=== PATIENT | female | born 1935 | race Caucasian/White ===

== ENCOUNTER 2017-04-08 22:23 | Inpatient (IN) | payer OTHER ==
[2017-04-08 22:34] VITALS: BMI 38.9
--- NOTE | 2017-04-08 23:20 | PDOC ---
History of Present Illness - General History Source: Patient Exam Limitations: No Limitations - History of Present Illness Initial Comments: 04/09/17 00:10 The patient is a 81 year old female with a significant past medical history of hypertension, glaucoma, borderline DM, first stage of Parkinsons Disease, and angina, who presents to the ER with chest discomfort, shortness of breath, and congestion for two days. Patient reports productive cough and difficulty breathing. She states she walks without assistance but develops shortness of breath shortly after. As per patients daughter, patient had a fever at home for which she took Advil. Patient also has a loss of appetite. On interview, patient states she has pain and swelling in the bilateral lower extremities. Denies lightheadedness or dizziness Denies nausea, vomiting, diarrhea <Lakesha Gee - Last Filed: 04/09/17 03:17> <Lisbet Martinez - Last Filed: 04/10/17 06:00> - General Chief Complaint: Chest Pain Stated Complaint: RESPIRATORY Time Seen by Provider: 04/08/17 23:06 Past History <Lakesha Gee - Last Filed: 04/09/17 03:17> - Past Medical History Asthma: Yes GI Disorders: Yes (gerd) HTN: Yes - Psycho/Social/Smoking Cessation Hx Anxiety: No Suicidal Ideation: No Smoking History: Never smoked Have you smoked in the past 12 months: No Information on smoking cessation initiated: No Hx Alcohol Use: No Drug/Substance Use Hx: No Substance Use Type: None <Lisbet Martinez - Last Filed: 04/10/17 06:00> - Past Medical History Allergies/Adverse Reactions: Allergies Allergy/AdvReac Type Severity Reaction Status Date / Time No Known Allergies Allergy Verified 04/08/17 22:34 Home Medications: Ambulatory Orders Acetaminophen [Pain Relief] 650 mg PO Q6H 09/13/16 Albuterol Sulfate Inhaler - [Ventolin Hfa Inhaler -] 1 - 2 inh PO QID 09/13/16 Atenolol [Tenormin -] 25 mg PO DAILY 09/13/16 Esomeprazole Magnesium [Nexium 24Hr] 40 mg PO DAILY 09/13/16 Montelukast Na [Singulair -] 10 mg PO HS 09/13/16 Alendronate Na [Fosamax] 70 mg PO Q7D 04/09/17 Bimatoprost [Lumigan] 1 drop IO DAILY 04/09/17 Brimonidine Tartrate/Timolol [Combigan Eye Drops] 5 ml OP DAILY 04/09/17 Lisinopril/Hydrochlorothiazide [Lisinopril-Hctz 20-25 mg Tab] 1 each PO DAILY Methimazole [Tapazole -] 10 mg PO DAILY 04/09/17 Primidone 50 mg PO DAILY 04/09/17 Ranitidine [Zantac -] 150 mg PO BID 04/09/17 Review of Systems - Review of Systems Comments:: 04/09/17 00:11 CONSTITUTIONAL: Present: (+) fever, (+) loss of appetite Absent: no chills, no fatigue EYES: Absent: visual changes ENT: Absent: ear pain, no sore throat CARDIOVASCULAR: Present: (+) chest pain Absent: no palpitations RESPIRATORY: Present: (+) cough, (+) SOB GI: Absent: abdominal pain, no nausea, no vomiting, no constipation, no diarrhea GENITOURINARY: Absent: dysuria, no frequency, no hematuria MUSCULOSKELETAL: Present: (+) bilateral leg edema and pain Absent: back pain, no arthralgia, no myalgia SKIN: Absent: rash NEURO: Absent: headache <Uts,Lakesha - Last Filed: 04/09/17 03:17> *Physical Exam - Vital Signs Last Vital Signs Temp Pulse Resp BP Pulse Ox 98.5 F 78 20 109/68 95 04/08/17 22:31 04/08/17 23:57 04/08/17 23:57 04/08/17 23:57 04/08/17 23:57 - Physical Exam Comments: 04/09/17 00:12 GENERAL: Resting Parkinsonian tremor. Well-appearing, well-nourished. No apparent distress. HEENT: Normocephalic, atraumatic. PERRL, EOM intact. CARDIOVASCULAR: Irregularly irregular. Normal S1, S2. PULMONARY: Clear to auscultation bilaterally. ABDOMEN: Soft, non-distended, non-tender. EXTREMITIES: Trace pitting edema. Nontender flank. Normal ROM in all four extremities. No gross deformities. SKIN: Warm, dry. No rash NEUROLOGICAL: No focal neurological deficits. <Uts,Lakesha - Last Filed: 04/09/17 03:17> - Vital Signs Last Vital Signs Temp Pulse Resp BP Pulse Ox 98.5 F 79 18 122/78 94 L 04/08/17 22:31 04/08/17 22:31 04/08/17 22:31 04/08/17 22:31 04/08/17 22:31 <Lisbet Martinez - Last Filed: 04/10/17 06:00> ED Treatment Course - LABORATORY CBC & Chemistry Diagram: 04/08/17 23:44 04/08/17 23:44 - RADIOLOGY Radiograph Interpretation: 04/09/17 03:18 EKG read and reviewed by Dr. Martinez: Atrial fibrillation, regular rate and rhythm , right bundle branch block <Lakesha Gee - Last Filed: 04/09/17 03:17> - LABORATORY CBC & Chemistry Diagram: 04/08/17 23:44 04/09/17 05:35 <Lisbet Martinez - Last Filed: 04/10/17 06:00> Medical Decision Making - Medical Decision Making 04/10/17 05:55 Pt comes with 2 days of dyspnea. Her daughter thinks that she has pneumonia, however, pt has no cough and she has no fever. She describes paroxysmal nocturnal dyspnea. Pt is compliant with all meds that she is supposed to be taking. In the ER pt has afib on EKG and irregularly irreg. heart beat on exam. Pt will be admitted to tele for new onset afib. <Lisbet Martinez - Last Filed: 04/10/17 06:00> *DC/Admit/Observation/Transfer - Attestations Scribe Attestion: 04/09/17 00:14 Documentation prepared by Lakesha Gee, acting as medical service technician for Lisbet Martinez MD. <Lakesha Gee - Last Filed: 04/09/17 03:17> - Discharge Dispostion Admit: Yes <Lisbet Martinez - Last Filed: 04/10/17 06:00> Diagnosis at time of Disposition: New onset atrial fibrillation Dyspnea Qualifiers: Dyspnea type: dyspnea on exertion Qualified Code(s): R06.09 - Other forms of dyspnea CHF (congestive heart failure) Qualifiers: Congestive heart failure type: unspecified congestive heart failure type Congestive heart failure chronicity: unspecified congestive heart failure chronicity Qualified Code(s): I50.9 - Heart failure, unspecified - Discharge Dispostion Condition at time of disposition: Guarded - Referrals
[2017-04-09 00:03] LABS: BASOPHIL 0.7 % (0-2.0); EOSINOPHIL 3.1 % (0-4.5); MCH 27.1 pg (25.7-33.7); MCHC 32.1 g/dl (32.0-36.0); MEAN CELL VOLUME 84.2 fl (80-96); MEAN PLT VOLUME 8.3 fl (7.5-11.1); NEUTROPHILS 39.7 % (42.8-82.8); PLATELET COUNT 183 K/MM3 (134-434); RDW 14.1 % (11.6-15.6); WHITE BLOOD COUNT 5.6 K/mm3 (4.0-10.0)
[2017-04-09 00:28] LABS: ALBUMIN 3.3 g/dl (3.4-5.0); ANION GAP 9 (8-16); BILIRUBIN,TOTAL 0.2 mg/dL (0.2-1.0); CALCIUM 8.7 mg/dL (8.5-10.1); CO2 30 mmol/L (21-32); COCKROFT - GAULT 77.5115; CREATININE 0.8 mg/dL (0.55-1.02); GLUCOSE,RANDOM 96 mg/dL (74-106); SGOT/AST 16 U/L (15-37); SGPT/ALT 20 U/L (12-78); TOT PROT 6.7 g/dl (6.4-8.2)
[2017-04-09 00:31] LABS: ALK PHOS 85 U/L (45-117); TROPONIN I < 0.02 ng/ml (0.00-0.05)
[2017-04-09 00:51] LABS: INR 1.1 (0.82-1.09); PROTHROMBIN TIME (PATIENT) 12.1 SEC (9.98-11.88)
[2017-04-09 01:59] LABS: URINE APPEARANCE CLEAR; URINE BILIRUBIN NEGATIVE (NEGATIVE); URINE BLOOD NEGATIVE (NEGATIVE); URINE COLOR LTYELLOW; URINE GLUCOSE (UA) NEGATIVE (NEGATIVE); URINE KETONE NEGATIVE (NEGATIVE); URINE LEUK ESTERASE NEGATIVE (NEGATIVE); URINE NITRITE NEGATIVE (NEGATIVE); URINE PROTEIN NEGATIVE (NEGATIVE); URINE UROBILINOGEN NEGATIVE E.U./dl (0.2-1.0)
--- NOTE | 2017-04-09 02:26 | HP ---
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 Call her Aid for info HISTORY OF PRESENT ILLNESS: This is an 81 yo F with PMH of hyperthyroidism, HTN, borderline DM, asthma, 1st stage parkinsons and glaucoma, who presents due to diffuse anterior chest pain radiating to back, sob, increased exertional dyspnea and mild LE edema x 2 d. She also reports progressively worsening cough productive of clear flem, loss of appetite and orthopnea x 2 mo. Shehas neverhad chest pain like this before, it is aggravated by exertion. She denies cardiac history. She denies weight gain. She deneis h/a, n/v, abd pain, dysuria, flank pain, constipation, diarrhea , melena, hematochezia. Her baseline ambulation tolerance is with walker from room to room and has recently decreased. In ed she is found to be in a fib rate 73 with la xis and RBBB. ER course was notable for: (1)labs (2)cxr ekg Recent Travel: denies PAST MEDICAL HISTORY: as above PAST SURGICAL HISTORY:as above Social History: lives at home alone with daily aid Smoking:denies Alcohol:denies Drugs: denies Family History: HTN, HLD Allergies No Known Allergies Allergy (Verified 04/08/17 22:34) HOME MEDICATIONS: Home Medications Medication Instructions Recorded Acetaminophen [Pain Relief] 650 mg PO Q6H 09/13/16 Albuterol Sulfate Inhaler - 1 - 2 inh PO QID 09/13/16 [Ventolin Hfa Inhaler -] Aspirin [ASA -] 325 mg PO DAILY 09/13/16 Atenolol [Tenormin -] 25 mg PO DAILY 09/13/16 Calcium Carbonate/Vitamin D3 1 each PO DAILY 09/13/16 [Calcium 600 + Vit D Tablet] Cephalexin Monohydrate [Keflex -] 500 mg PO Q8H #21 capsule 09/13/16 Diazepam [Valium] 5 mg PO Q8H #3 tablet MDD 3 09/13/16 Doxycycline Monohydrate 20 mg PO DAILY 09/13/16 [Doxycycline Ir-Dr] Esomeprazole Magnesium [Nexium 40 mg PO DAILY 09/13/16 24Hr] Montelukast Na [Singulair -] 10 mg PO HS 09/13/16 Primidone [Mysoline -] 250 mg PO DAILY 09/13/16 REVIEW OF SYSTEMS CONSTITUTIONAL: Absent: fever, chills HEENT: Absent: rhinorrhea, nasal congestion, throat pain CARDIOVASCULAR: Absent: syncope, palpitations, lightheadedness RESPIRATORY: Absent: wheezing, stridor, hemoptysis GASTROINTESTINAL: Absent: abdominal pain, abdominal distension, nausea, vomiting, diarrhea, constipation, melena, hematochezia GENITOURINARY: Absent: dysuria, flank pain MUSCULOSKELETAL: Absent: myalgia, arthralgia SKIN: Absent: rash, itching, pallor HEMATOLOGIC/IMMUNOLOGIC: Absent: frequent infections ENDOCRINE: Absent: unexplained weight gain, unexplained weight loss, heat intolerance, cold intolerance NEUROLOGIC: Absent: headache, focal weakness or paresthesias PSYCHIATRIC: Absent: anxiety, depression PHYSICAL EXAMINATION Vital Signs - 24 hr 04/08/17 04/08/17 22:31 23:57 Temperature 98.5 F Pulse Rate 79 Pulse Rate [ 78 Apical] Respiratory 18 20 Rate Blood Pressure 122/78 Blood Pressure 109/68 [Left Arm] O2 Sat by Pulse 94 L 95 Oximetry (%) GENERAL: Awake, alert, and fully oriented, in no acute distress. HEAD: Normal with no signs of trauma. EYES: Pupils equal, round and reactive to light, extraocular movements intact, sclera anicteric, conjunctiva clear. No lid lag. EARS, NOSE, THROAT: Moist mucous membranes. NECK: supple + JVD, + hepatojugular reflex LUNGS: mild bibasilar crackles HEART: irregularly irregular, normal S1 and S2 without murmur ABDOMEN: Soft, nontender, not distended, normoactive bowel sounds, no guarding, no rebound, no masses. No hepatomegaly or splenomegaly. MUSCULOSKELETAL: No CVA tenderness. UPPER EXTREMITIES: 2+ pulses, warm, well-perfused. No cyanosis. No clubbing. No peripheral edema. LOWER EXTREMITIES: 2+ pulses, warm, well-perfused. No calf tenderness. trace peripheral edema. NEUROLOGICAL: Cranial nerves II-XII grossly intact. parkinsonian dyskinesia PSYCHIATRIC: Cooperative. Good eye contact. Appropriate mood and affect. SKIN: Warm, dry Laboratory Results - last 24 hr 04/08/17 04/08/17 04/08/17 23:44 23:44 23:44 WBC 5.6 RBC 4.28 Hgb 11.6 Hct 36.1 MCV 84.2 MCHC 32.1 RDW 14.1 Plt Count 183 MPV 8.3 Neutrophils % 39.7 L Lymphocytes % 38.9 Monocytes % 17.6 H Eosinophils % 3.1 Basophils % 0.7 INR PTT (Actin FS) Sodium 144 Potassium 4.7 Chloride 105 Carbon Dioxide 30 Anion Gap 9 BUN 19 H Creatinine 0.8 Creat Clearance w eGFR > 60 Random Glucose 96 Calcium 8.7 Total Bilirubin 0.2 AST 16 ALT 20 Alkaline Phosphatase 85 Creatine Kinase 71 Troponin I < 0.02 B-Natriuretic Peptide 1924.51 H Total Protein 6.7 Albumin 3.3 L Urine Color Urine Appearance Urine pH Urine Protein Urine Glucose (UA) Urine Ketones Urine Blood Urine Nitrite Urine Bilirubin Urine Urobilinogen Ur Leukocyte Esterase 04/08/17 04/08/17 04/09/17 23:44 23:44 01:52 WBC RBC Hgb Hct MCV MCHC RDW Plt Count MPV Neutrophils % Lymphocytes % Monocytes % Eosinophils % Basophils % INR 1.10 PTT (Actin FS) 33.2 Sodium Potassium Chloride Carbon Dioxide Anion Gap BUN Creatinine Creat Clearance w eGFR Random Glucose Calcium Total Bilirubin AST ALT Alkaline Phosphatase Creatine Kinase Troponin I B-Natriuretic Peptide Total Protein Albumin Urine Color Ltyellow Urine Appearance Clear Urine pH 6.0 Urine Protein Negative Urine Glucose (UA) Negative Urine Ketones Negative Urine Blood Negative Urine Nitrite Negative Urine Bilirubin Negative Urine Urobilinogen Negative Ur Leukocyte Esterase Negative ASSESSMENT/PLAN: This is an 81 yo F with PMH of hyperthyroidism, HTN, borderline DM, asthma, 1st stage parkinsons and glaucoma, who presents due to diffuse anterior chest pain radiating to back, sob, increased exertional dyspnea and mild LE edema x 2 d. Please reconcile meds Acute CHF -may be ilicited by new onset a fib -lasix 40 IV bid -cored 3.125 bid, titrate up to max tolerated dose -start ramipril, aldactone tomorrow and titrate up -cardio consult -tele monitoring -cxr vessel cephalization, congestion, repeat am -tfts, free t4 -lipid panel -a1c -strict i and o, daily weight New onset a fib -hyperthyroidism history -[facility] 5 -discussed possibility of penitentiary a/c with daughter; patient does not fall frequently but has parkinsons -full dose a/c with leoncio for now -EKG a fib rate 73, l axis, rbbb, no acs -beta rhiannon Hyperthyroid -not treated at this time -tfts asthma -albuterol, singulair -not acutely exacerbated parkinsons -reconcile meds borderline DM -not on meds FEN diurese lytes stable na restricted diet full dose leoncio Dispo: admit tele Problem List - Problem (1) CHF (congestive heart failure) Code(s): I50.9 - HEART FAILURE, UNSPECIFIED (2) New onset atrial fibrillation Code(s): I48.91 - UNSPECIFIED ATRIAL FIBRILLATION (3) HTN (hypertension) Code(s): I10 - ESSENTIAL (PRIMARY) HYPERTENSION (4) Parkinson disease Code(s): G20 - PARKINSON'S DISEASE (5) Hyperthyroidism Code(s): E05.90 - THYROTOXICOSIS, UNSP WITHOUT THYROTOXIC CRISIS OR STORM Visit type - Emergency Visit Emergency Visit: Yes ED Registration Date: 04/09/17 Care time: The patient presented to the Emergency Department on the above date and was hospitalized for further evaluation of their emergent condition. - New Patient This patient is new to me today: Yes Date on this admission: 04/09/17 - Critical Care Critical Care patient: No
[2017-04-09] MEDS ORDERED: CARVEDILOL 3.125 MG TABLET (FP) PO SCH ×2 (03:30→10:00)
[2017-04-09] MEDS: FUROSEMIDE 40 MG/4 ML INJECTABLE VIAL IVPUSH SCH ×3 (04:22→14:01)
--- NOTE | 2017-04-09 04:46 | PN ---
<J Luis Peralta - Last Filed: 04/09/17 04:56> Teaching Attending Note ATTENDING PHYSICIAN STATEMENT I saw and evaluated the patient. I reviewed the resident's note and discussed the case with the resident. I agree with the resident's findings and plan as documented. SUBJECTIVE: Past Medical History: hypertension, glaucoma, borderline DM, first stage of Parkinsons Disease, angina, asthma, GERD. Surgical History: None reported Allergies: NKDA OBJECTIVE: Vital Signs: Last Vital Signs 3 Temp Pulse Resp BP Pulse Ox 98.5 F 62 20 154/95 95 04/08/17 22:31 04/09/17 03:02 04/09/17 03:02 04/09/17 03:02 04/09/17 03:02 Labs: CBCD 3 WBC 5.6 K/mm3 (4.0-10.0) 04/08/17 23:44 RBC 4.28 M/mm3 (3.60-5.2) 04/08/17 23:44 Hgb 11.6 GM/dL (10.7-15.3) 04/08/17 23:44 Hct 36.1 % (32.4-45.2) 04/08/17 23:44 MCV 84.2 fl (80-96) 04/08/17 23:44 MCHC 32.1 g/dl (32.0-36.0) 04/08/17 23:44 RDW 14.1 % (11.6-15.6) 04/08/17 23:44 Plt Count 183 K/MM3 (134-434) 04/08/17 23:44 MPV 8.3 fl (7.5-11.1) 04/08/17 23:44 CMP 3 Sodium 144 mmol/L (136-145) 04/08/17 23:44 Potassium 4.7 mmol/L (3.5-5.1) 04/08/17 23:44 Chloride 105 mmol/L (98-107) 04/08/17 23:44 Carbon Dioxide 30 mmol/L (21-32) 04/08/17 23:44 Anion Gap 9 (8-16) 04/08/17 23:44 BUN 19 mg/dL (7-18) H 04/08/17 23:44 Creatinine 0.8 mg/dL (0.55-1.02) 04/08/17 23:44 Creat Clearance w eGFR > 60 (>60) 04/08/17 23:44 Calcium 8.7 mg/dL (8.5-10.1) 04/08/17 23:44 Total Bilirubin 0.2 mg/dL (0.2-1.0) 04/08/17 23:44 AST 16 U/L (15-37) 04/08/17 23:44 ALT 20 U/L (12-78) 04/08/17 23:44 Alkaline Phosphatase 85 U/L (45-117) 04/08/17 23:44 Total Protein 6.7 g/dl (6.4-8.2) 04/08/17 23:44 Albumin 3.3 g/dl (3.4-5.0) L 04/08/17 23:44 Imagin. Chest X-ray. Impression: No official reading. 2. EKG read and reviewed by Dr. Mratinez (in the emergency department). Impression: Atrial fibrillation, regular rate and rhythm, right bundle branch block. Documentation prepared by J Luis Peralta, acting as medical liaison for Dr. Arlene Polanco MD. <Arlene Polanco - Last Filed: 04/09/17 11:38> Teaching Attending Note Name of Resident: Destinee Lewis ATTENDING PHYSICIAN STATEMENT I saw and evaluated the patient. I reviewed the resident's note and discussed the case with the resident. I agree with the resident's findings and plan as documented. SUBJECTIVE: 81 y/o F presenting to ED c/o CP and SOB, Peripheral edema and exertional dyspnea. Orthopnea for 2 months. OBJECTIVE: Moderate discomfort, resting. JVD+, irregular, irregular, no murmur, gallops or rubs appreciated Lungs with bibasilar crackles Abd soft, NT, ND, no ascites, BS+ Ext trace edema, pulses 2+ ASSESSMENT AND PLAN: Admit for new onset Afib patient needs residential anticoagulation therapy, lovenox given and family to decide if she will continue anticoagulation as outpatinet. risk and benefits explained. CHF exacerbation continue beta rhiannon and lasix, start victorina inhibitor and consider repeating ECHO, Cardiology consult. Problem List - Problems (1) CHF (congestive heart failure) Code(s): I50.9 - HEART FAILURE, UNSPECIFIED (2) New onset atrial fibrillation Code(s): I48.91 - UNSPECIFIED ATRIAL FIBRILLATION
[2017-04-09 08:40] LABS: ANION GAP 10 (8-16); CO2 33 mmol/L (21-32); COCKROFT - GAULT 77.5115; CREATININE 0.8 mg/dL (0.55-1.02); GLUCOSE,RANDOM 89 mg/dL (74-106); MAGNESIUM 2.2 mg/dL (1.8-2.4); PHOSPHOROUS 3.5 mg/dL (2.5-4.9); TROPONIN I < 0.02 ng/ml (0.00-0.05)
[2017-04-09] MEDS ORDERED: ALBUTEROL SO4 6.7 GM HFA INHALER IH SCH (10:00)
[2017-04-09] MEDS ORDERED: ENOXAPARIN NA (PORCINE) 80 MG/0.8 ML DISP.SYRIN SQ SCH ×2 (10:00)
[2017-04-09] MEDS ORDERED: HEPARIN NA (PORCINE) 5,000 UNITS/ML 1ML VIAL SQ SCH (10:00)
[2017-04-09 10:58] LABS: FREE T4 1.19 ng/dl (0.76-1.46); THYROID STIMULATING HORMONE 0.31 uIU/ml (0.358-3.74)
[2017-04-09] MEDS ORDERED: FUROSEMIDE 40 MG/4 ML INJECTABLE VIAL ONE (11:49)
--- NOTE | 2017-04-09 12:06 | EKG ---
Test Reason : Blood Pressure : / mmHG Vent. Rate : 073 BPM Atrial Rate : 047 BPM P-R Int : 000 ms QRS Dur : 146 ms QT Int : 406 ms P-R-T Axes : 000 -16 011 degrees QTc Int : 447 ms ATRIAL FIBRILLATION WITH PREMATURE VENTRICULAR OR ABERRANTLY CONDUCTED COMPLEXES RIGHT BUNDLE BRANCH BLOCK ABNORMAL ECG NO PREVIOUS ECGS AVAILABLE Confirmed by MD RICHARD, NIDHI ([id number]) on 04/09/2017 12:06:16 PM Referred By: Confirmed By:NIDHI RAMOS MD
--- NOTE | 2017-04-09 12:49 | CON.CARD ---
Consult Consult Specialty:: Cardiology Referred by:: Hospitalist Reason for Consultation:: New onset AF and heart failure - History of Present Illness Chief Complaint: Dyspnea History of Present Illness: Patient is an 81 year old female of descent with underlying history of hypertension, early diabetes, hyperthyroidism (not on medication at the moment) , tremors - possible early stage of Parkinson's (although patient denies) and bronchial asthma and exogenous obesity. She went to [facility] and was transferred up to [place] for further management of shortness of breath and chest discomfort. Patient was found to have atrial fibrillation rate controlled with RBBB. She states that she was seen by a hand mold maker in [facility] and states that she has never been on anticoagulation. Currently, she denies chest pain, shortness of breath has improved and no palpitations. She denies paroxysmal nocturnal dyspnea or orthopnea. She denies fever or chills. She denies headache or lightheadedness. Cardiology consultation was called for further evaluation. - History Source History Provided By: Patient, Family Member, Medical Record Limitations to Obtaining History: Language Barrier - Past Medical History [employer]: Yes: Parkinson's Cardio/Vascular: Yes: AFIB, HTN Pulmonary: Yes: Asthma Heme/Onc: Yes: Cancer (? cervical CA or ovarian CA S/P hyterectomy) Endocrine: Yes: Diabetes Mellitus (Early) Additional Medical History: Glaucoma - Past Surgical History Past Surgical History: Yes: Hysterectomy Additional Surgical History: Eye surgery for either cataract or glaucoma - Alcohol/Substance Use Hx Alcohol Use: No - Smoking History Smoking history: Never smoked Have you smoked in the past 12 months: No Home Medications - Allergies Allergies/Adverse Reactions: Allergies Allergy/AdvReac Type Severity Reaction Status Date / Time No Known Allergies Allergy Verified 04/08/17 22:34 - Home Medications Home Medications: Ambulatory Orders Acetaminophen [Pain Relief] 650 mg PO Q6H 09/13/16 Albuterol Sulfate Inhaler - [Ventolin Hfa Inhaler -] 1 - 2 inh PO QID 09/13/16 Aspirin [ASA -] 325 mg PO DAILY 09/13/16 Atenolol [Tenormin -] 25 mg PO DAILY 09/13/16 Calcium Carbonate/Vitamin D3 [Calcium 600 + Vit D Tablet] 1 each PO DAILY Cephalexin Monohydrate [Keflex -] 500 mg PO Q8H #21 capsule 09/13/16 Diazepam [Valium] 5 mg PO Q8H #3 tablet MDD 3 09/13/16 Doxycycline Monohydrate [Doxycycline Ir-Dr] 20 mg PO DAILY 09/13/16 Esomeprazole Magnesium [Nexium 24Hr] 40 mg PO DAILY 09/13/16 Montelukast Na [Singulair -] 10 mg PO HS 09/13/16 Primidone [Mysoline -] 250 mg PO DAILY 09/13/16 Family Disease History - Family Disease History Other Family History: History of malignancy - prostate CA (father) and colon CA (sibling) Review of Systems - Review of Systems Constitutional: denies: Chills, Fever Cardiovascular: reports: Chest Pain, Shortness of Breath. denies: Palpitations Respiratory: reports: SOB, SOB on Exertion. denies: Cough, Hemoptysis, Orthopnea, PND Gastrointestinal: denies: Abdominal Pain, Constipation, Diarrhea, Melena, Nausea , Rectal Bleeding, Vomiting Genitourinary: denies: Dysuria Musculoskeletal: denies: Joint Pain Neurological: reports: Tremors. denies: Dizziness, Headache, Seizure, Syncope Vital Signs: Vital Signs Temperature 97.7 F 04/09/17 04:57 Pulse Rate 99 H 04/09/17 06:00 Respiratory Rate 20 04/09/17 06:00 Blood Pressure 137/78 04/09/17 06:00 O2 Sat by Pulse Oximetry (%) 96 04/09/17 04:57 HENT: Yes: Atraumatic Neck: Yes: Supple Respiratory: Yes: Diminished Gastrointestinal: Yes: Normal Bowel Sounds, Soft, Abdomen, Obese. No: Tenderness Cardiovascular: Yes: Pulse Irregular JVD: No Carotid Bruit: No PMI: Non-Displaced Heart Sounds: Yes: S1, S2. No: Gallop Murmur: Yes: Systolic Murmur (Soft SM), Grade 1 Edema: No - Other Data Labs, Other Data: CBC, BMP 04/09/17 05:35 INR, PTT INR 1.10 (0.82-1.09) 04/08/17 23:44 Troponin, BNP 04/09/17 05:35 Troponin I < 0.02 Laboratory Results - last 24 hr 04/08/17 04/08/17 04/08/17 23:44 23:44 23:44 WBC 5.6 RBC 4.28 Hgb 11.6 Hct 36.1 MCV 84.2 MCHC 32.1 RDW 14.1 Plt Count 183 MPV 8.3 Neutrophils % 39.7 L Lymphocytes % 38.9 Monocytes % 17.6 H Eosinophils % 3.1 Basophils % 0.7 INR PTT (Actin FS) Sodium 144 Potassium 4.7 Chloride 105 Carbon Dioxide 30 Anion Gap 9 BUN 19 H Creatinine 0.8 Creat Clearance w eGFR > 60 Random Glucose 96 Hemoglobin A1c % Calcium 8.7 Phosphorus Magnesium Total Bilirubin 0.2 AST 16 ALT 20 Alkaline Phosphatase 85 Creatine Kinase 71 Troponin I < 0.02 B-Natriuretic Peptide 1924.51 H Total Protein 6.7 Albumin 3.3 L TSH Free T4 Urine Color Urine Appearance Urine pH Urine Protein Urine Glucose (UA) Urine Ketones Urine Blood Urine Nitrite Urine Bilirubin Urine Urobilinogen Ur Leukocyte Esterase 04/08/17 04/08/17 04/09/17 23:44 23:44 01:52 WBC RBC Hgb Hct MCV MCHC RDW Plt Count MPV Neutrophils % Lymphocytes % Monocytes % Eosinophils % Basophils % INR 1.10 PTT (Actin FS) 33.2 Sodium Potassium Chloride Carbon Dioxide Anion Gap BUN Creatinine Creat Clearance w eGFR Random Glucose Hemoglobin A1c % Calcium Phosphorus Magnesium Total Bilirubin AST ALT Alkaline Phosphatase Creatine Kinase Troponin I B-Natriuretic Peptide Total Protein Albumin TSH Free T4 Urine Color Ltyellow Urine Appearance Clear Urine pH 6.0 Urine Protein Negative Urine Glucose (UA) Negative Urine Ketones Negative Urine Blood Negative Urine Nitrite Negative Urine Bilirubin Negative Urine Urobilinogen Negative Ur Leukocyte Esterase Negative 04/09/17 04/09/17 04/09/17 05:35 05:35 05:35 WBC RBC Hgb Hct MCV MCHC RDW Plt Count MPV Neutrophils % Lymphocytes % Monocytes % Eosinophils % Basophils % INR PTT (Actin FS) Sodium 143 Potassium 4.3 Chloride 100 Carbon Dioxide 33 H Anion Gap 10 BUN 15 D Creatinine 0.8 Creat Clearance w eGFR Random Glucose 89 Hemoglobin A1c % 6.0 Calcium 9.0 Phosphorus 3.5 Magnesium 2.2 Total Bilirubin AST ALT Alkaline Phosphatase Creatine Kinase Troponin I < 0.02 B-Natriuretic Peptide Total Protein Albumin TSH 0.31 L Cancelled Free T4 1.19 Cancelled Urine Color Urine Appearance Urine pH Urine Protein Urine Glucose (UA) Urine Ketones Urine Blood Urine Nitrite Urine Bilirubin Urine Urobilinogen Ur Leukocyte Esterase Atrial fibrillation with RBBB Imaging - Results Chest X-ray: Report Reviewed (Large heart) EKG: Report Reviewed Problem List - Problems (1) CHF (congestive heart failure) Code(s): I50.9 - HEART FAILURE, UNSPECIFIED Qualifiers: Congestive heart failure type: unspecified congestive heart failure type Congestive heart failure chronicity: unspecified congestive heart failure chronicity Qualified Code(s): I50.9 - Heart failure, unspecified (2) Dyspnea Code(s): R06.00 - DYSPNEA, UNSPECIFIED Qualifiers: Dyspnea type: dyspnea on exertion Qualified Code(s): R06.09 - Other forms of dyspnea (3) HTN (hypertension) Code(s): I10 - ESSENTIAL (PRIMARY) HYPERTENSION Qualifiers: Hypertension type: essential hypertension Qualified Code(s): I10 - Essential (primary) hypertension (4) Hyperthyroidism Code(s): E05.90 - THYROTOXICOSIS, UNSP WITHOUT THYROTOXIC CRISIS OR STORM (5) New onset atrial fibrillation Code(s): I48.91 - UNSPECIFIED ATRIAL FIBRILLATION (6) Parkinson disease Code(s): G20 - PARKINSON'S DISEASE Assessment/Plan 1. Atrial fibrillation - duration unknown [id number] of 6+ 2. HTN/HCVD 3. Borderline diabetes mellitus 4. Dyspnea - possible acute on chronic LV failure - diastolic failure 5. Possible early Parkinson's with tremors 6. Hyperthyroidism PLAN: 1. Titrate Carvedilol up as tolerated. If HR is an issue, may use Metoprolol instead. 2. In view of elevated [id number] score which could be higher than 6, she should be on anticoagulation if not contraindicated. Add Eliquis 5 mg twice a day. Discontinue Lovenox. 3. Transthoracic echocardiography to assess LV and valvular function 4. Add Ramipril or Lisinopril as tolerated 5. Currently on IV diuretics as tolerated. Check I/Os and daily weight Further plans are to follow Johann Cowan MD
--- NOTE | 2017-04-09 13:01 | PN ---
Physical Exam: SUBJECTIVE: Patient seen and examined. Family at bedside. OBJECTIVE: wheezing on bilateral lung painting patient has history of asthma 84% on room air with ambulation Some irritation/redness on vaginal area Will send UA/UC for urinary frequency and vaginal burning Vital Signs Period Temp Pulse Resp BP Sys/Ugarte Pulse Ox Last 24 Hr 97.7 F-97.7 F 62-99 20-20 137-178/78-95 95-96 GENERAL: The patient is awake, alert, and fully oriented, upper extremities, facial tremors @ rest HEAD: Normal with no signs of trauma. EYES: PERRL, extraocular movements intact, sclera anicteric, conjunctiva clear. No ptosis. ENT: Ears normal, nares patent, oropharynx clear without exudates, moist mucous membranes. NECK: Trachea midline, full range of motion, supple. LUNGS: Mild wheezing on bilateral upper lobes, tolerating room air HEART:Atrial fibrillation of unknown duration ABDOMEN: Soft, nontender, nondistended, normoactive bowel sounds, no guarding, no rebound, no hepatosplenomegaly, no masses. EXTREMITIES: trace mild edema on bilateral lower ext. NEUROLOGICAL: parkinsons?-patient denies, upper body tremors at rest SKIN: Warm, dry, normal turgor, no rashes or lesions noted Laboratory Results - last 24 hr 04/09/17 04/09/17 04/09/17 05:35 05:35 05:35 Sodium 143 Potassium 4.3 Chloride 100 Carbon Dioxide 33 H Anion Gap 10 BUN 15 D Creatinine 0.8 Random Glucose 89 Hemoglobin A1c % 6.0 Calcium 9.0 Phosphorus 3.5 Magnesium 2.2 Troponin I < 0.02 TSH 0.31 L Cancelled Free T4 1.19 Cancelled Active Medications Generic Name Dose Route Start Last Admin Trade Name Freq PRN Reason Stop Dose Admin Albuterol/Ipratropium 1 amp 04/09/17 11:00 Duoneb - NEB Q4HWA SRIKANTH Carvedilol 3.125 mg 04/09/17 10:00 04/09/17 10:00 Coreg - PO 3.125 mg BID SRIKANTH Administration Enoxaparin Sodium 80 mg 04/09/17 10:00 04/09/17 10:01 Lovenox - SQ 80 mg BID SRIKANTH Administration Furosemide 40 mg 04/09/17 14:00 Lasix Injection - IVPUSH BID@0600,1400 [facility] Montelukast Sodium 10 mg 04/09/17 22:00 Singulair - PO HS [facility] ASSESSMENT/PLAN: Patient is a 81 year old female with a significant past medical history of hyperthyroidism, hypertension, borderline DM, chronic bronchial asthma, 1st stage Parkinson's disease and glaucoma. She presents to the ED with diffuse anterior chest pain radiating to back, shortness of breath and dyspnea with exertion. Cardiology: Acute CHF likely induced by new onset atrial fibrillation Assessment/Plan: Dyspnea on exam, wheezing on bilateral lung painting On Lasix 40mg IV push BID Coreq 3.125 BID Telemonitoring shows atrial afib 100s - 130s Anticoagulation with Eliquis 5mg BID Daily weight, strict intake and output Patient lives alone, hx of falls, but no recent falls as per family Echo pending Endocrine: Assessment/Plan: Hyperthyroidism On Tapazole 10mg daily HmgA1c 5.9 - borderline diabetes Monitor serum blood glucose with a.m. labs while on steroids Pulmonary Bronchial asthma - acute on chronic Assessment/Plan: Scattered wheezing on bilateral lung painting, dyspnea on exertion Has hx of bronchial asthma, duonebs scheduled q 4 Requires supplemental oxygen prn @ 2 liters Started on solumedrol 40mg q8 Monitor for improvement Pulmonary consulted Neurology: Parkinsons disease - chronic Assessment/Plan: On Primidone 50mg po daily F.E.N. Fluids: tolerating PO Electrolytes: monitor Nutrition:low sodium diet Prophylaxis: DVT: Eliquis 5mg PO daily GI; Protonix 40mg daily Dispo:Telemonitoring, Requires inpatient hospitalization. full code. Visit type - Emergency Visit Emergency Visit: Yes ED Registration Date: 04/09/17 Care time: The patient presented to the Emergency Department on the above date and was hospitalized for further evaluation of their emergent condition. - New Patient This patient is new to me today: No - Critical Care Critical Care patient: No - Discharge Referral Referred to [facility] Med P.C.: No
[2017-04-09] MEDS ORDERED: CARVEDILOL 6.25 MG TABLET (FP) PO SCH (13:03)
[2017-04-09] MEDS: APIXABAN 5 MG TABLET PO SCH ×2 (14:01→21:50)
[2017-04-09] MEDS: RAMIPRIL 2.5 MG CAPSULE (FP) PO SCH (14:01)
[2017-04-09] MEDS: ALBUTEROL SO4 2.5/IPRATROPIUM 0.5 INH SOL 3 ML VIAL.NEB. NEB SCH ×3 (14:20→22:25)
[2017-04-09] MEDS ORDERED: ACETAMINOPHEN 325 MG TABLET (FP) PO PRN (18:49)
[2017-04-09] MEDS: methylPREDNISolone NA SUCC 40 MG/1 ML VIAL IVPB SCH (21:50)
[2017-04-09] MEDS: MONTELUKAST NA 10 MG TABLET PO SCH (21:50)
[2017-04-09] MEDS: LATANOPROST 0.005% OPHTH SOLN 2.5ML BOTTLE OU SCH (21:50)
[2017-04-09] MEDS: RANITIDINE HCL 150 MG TABLET (FP) PO SCH (21:50)
[2017-04-09] MEDS: PRIMIDONE 50 MG TABLET PO SCH (21:51)
[2017-04-09] MEDS: MICONAZOLE NITRATE 100 MG SUPP SUPP.VAG PV SCH (21:51)
[2017-04-09] MEDS ORDERED: MONTELUKAST NA 10 MG TABLET PO SCH (22:00)
[2017-04-09] MEDS ORDERED: PT OWN MED DRAWER 7, Y5N ONE (22:20)
[2017-04-09 23:00] LABS: URINE APPEARANCE CLEAR; URINE BILIRUBIN NEGATIVE (NEGATIVE); URINE BLOOD 1+ (NEGATIVE); URINE COLOR LTYELLOW; URINE GLUCOSE (UA) NEGATIVE (NEGATIVE); URINE KETONE NEGATIVE (NEGATIVE); URINE LEUK ESTERASE 2+ (NEGATIVE); URINE NITRITE NEGATIVE (NEGATIVE); URINE PROTEIN NEGATIVE (NEGATIVE); URINE UROBILINOGEN NEGATIVE E.U./dl (0.2-1.0)
[2017-04-09 23:02] LABS: URINE HYALINE CAST 1 /lpf; URINE MUCUS RARE; URINE RBC 8 /hpf (0-3); URINE WBC 28 /hpf (3-5)
[2017-04-10] MEDS: methylPREDNISolone NA SUCC 40 MG/1 ML VIAL IVPB SCH ×2 (03:39→10:20)
[2017-04-10] MEDS: FUROSEMIDE 40 MG/4 ML INJECTABLE VIAL IVPUSH SCH ×2 (06:28→14:42)
[2017-04-10] MEDS: ALBUTEROL SO4 2.5/IPRATROPIUM 0.5 INH SOL 3 ML VIAL.NEB. NEB SCH ×5 (06:46→21:45)
[2017-04-10 07:03] LABS: BASOPHIL 0.2 % (0-2.0); MCH 27.4 pg (25.7-33.7); MCHC 32.9 g/dl (32.0-36.0); MEAN CELL VOLUME 83.4 fl (80-96); MEAN PLT VOLUME 8.2 fl (7.5-11.1); NEUTROPHILS 81.1 % (42.8-82.8); PLATELET COUNT 202 K/MM3 (134-434); RDW 14.2 % (11.6-15.6); WHITE BLOOD COUNT 3.3 K/mm3 (4.0-10.0)
[2017-04-10 07:25] LABS: ALBUMIN 3.5 g/dl (3.4-5.0); ALK PHOS 89 U/L (45-117); ANION GAP 8 (8-16); BILIRUBIN,TOTAL 0.3 mg/dL (0.2-1.0); CALCIUM 8.7 mg/dL (8.5-10.1); CHOLESTEROL 177 mg/dL (50-200); CO2 31 mmol/L (21-32); COCKROFT - GAULT 68.8925; CREATININE 0.9 mg/dL (0.55-1.02); GLUCOSE,RANDOM 155 mg/dL (74-106); LDL CHOLESTEROL (ONLY SJRH) 109 mg/dL (5-100); SGOT/AST 17 U/L (15-37); SGPT/ALT 18 U/L (12-78); TOT PROT 7.2 g/dl (6.4-8.2)
--- NOTE | 2017-04-10 09:25 | PN ---
Progress Note, Physician Chief Complaint: Appears comfortable, but still tachycardic History of Present Illness: Patient was seen and examined. Awake and alert. Chart was reviewed Denies chest pain, SOB or palpitations Remains in AF with rapid ventricular response - Current Medication List Current Medications: Active Medications Acetaminophen (Tylenol -) 650 mg PO Q6H PRN PRN Reason: FEVER OR PAIN Albuterol/Ipratropium (Duoneb -) 1 amp NEB Q4HWA [facility] Last Admin: 04/10/17 06:46 Dose: 1 amp Apixaban (Eliquis -) 5 mg PO BID [facility] Last Admin: 04/09/17 21:50 Dose: 5 mg Carvedilol (Coreg -) 6.25 mg PO BID [facility] Last Admin: 04/09/17 21:50 Dose: 6.25 mg Furosemide (Lasix Injection -) 40 mg IVPUSH BID@0600,1400 [facility] Last Admin: 04/10/17 06:28 Dose: 40 mg Latanoprost (Xalatan 0.005% Eye Drops -) 1 drop OU HS [facility] Last Admin: 04/09/17 21:50 Dose: 1 drop Methimazole (Tapazole -) 10 mg PO DAILY [facility] Methylprednisolone Sodium Succinate (Solu-Medrol -) 40 mg IVPB Q8H-IV [facility] Last Admin: 04/10/17 03:39 Dose: 40 mg Miconazole Nitrate (Monistat-7 Vaginal Suppository -) [address] [facility] Stop: 04/15/17 22:01 Last Admin: 04/09/17 21:51 Dose: 100 mg Montelukast Sodium (Singulair -) [address] [facility] Last Admin: 04/09/17 21:50 Dose: 10 mg Primidone (Mysoline -) 50 mg PO DAILY [facility] Last Admin: 04/09/17 21:51 Dose: 50 mg Ramipril (Altace -) 2.5 mg PO DAILY [facility] Last Admin: 04/09/17 14:01 Dose: 2.5 mg Ranitidine HCl (Zantac -) 150 mg PO BID [facility] Last Admin: 04/09/17 21:50 Dose: 150 mg - Objective Vital Signs: Vital Signs Temperature 98.3 F 04/10/17 02:00 Pulse Rate 99 H 04/10/17 06:00 Respiratory Rate 20 04/10/17 06:00 Blood Pressure 127/62 04/10/17 06:00 O2 Sat by Pulse Oximetry (%) 94 L 04/09/17 20:00 Neck: Yes: Supple Cardiovascular: Yes: Pulse Irregular, S1, S2 Respiratory: Yes: Diminished Gastrointestinal: Yes: Normal Bowel Sounds, Soft, Abdomen, Obese. No: Tenderness Edema: No Additional Findings/Remarks: - Review of Systems Constitutional: denies: Chills, Fever Cardiovascular: reports: Chest Pain, Shortness of Breath. denies: Palpitations Respiratory: reports: SOB, SOB on Exertion. denies: Cough, Hemoptysis, Orthopnea, PND Gastrointestinal: denies: Abdominal Pain, Constipation, Diarrhea, Melena, Nausea , Rectal Bleeding, Vomiting Genitourinary: denies: Dysuria Musculoskeletal: denies: Joint Pain Neurological: reports: Tremors. denies: Dizziness, Headache, Seizure, Syncope Labs: CBC, BMP 04/10/17 05:35 04/10/17 05:35 INR, PTT INR 1.10 (0.82-1.09) 04/08/17 23:44 Problem List - Problems (1) CHF (congestive heart failure) Code(s): I50.9 - HEART FAILURE, UNSPECIFIED Qualifiers: Congestive heart failure type: unspecified congestive heart failure type Congestive heart failure chronicity: unspecified congestive heart failure chronicity Qualified Code(s): I50.9 - Heart failure, unspecified (2) Dyspnea Code(s): R06.00 - DYSPNEA, UNSPECIFIED Qualifiers: Dyspnea type: dyspnea on exertion Qualified Code(s): R06.09 - Other forms of dyspnea (3) HTN (hypertension) Code(s): I10 - ESSENTIAL (PRIMARY) HYPERTENSION Qualifiers: Hypertension type: essential hypertension Qualified Code(s): I10 - Essential (primary) hypertension (4) Hyperthyroidism Code(s): E05.90 - THYROTOXICOSIS, UNSP WITHOUT THYROTOXIC CRISIS OR STORM (5) New onset atrial fibrillation Code(s): I48.91 - UNSPECIFIED ATRIAL FIBRILLATION (6) Parkinson disease Code(s): G20 - PARKINSON'S DISEASE Assessment/Plan 1. Atrial fibrillation - duration unknown [id number] of 6+ 2. HTN/HCVD 3. Borderline diabetes mellitus 4. Dyspnea - possible acute on chronic LV failure - diastolic failure 5. Possible early Parkinson's with tremors 6. Hyperthyroidism PLAN: 1. Switch Carvediolo to Metoprolol 50 mg BID and then uptitrate 2. Continue Eliquis 5 mg BID 3. Transthoracic echocardiography to assess LV and valvular function 4. Continue Ramipril 5. Currently on IV diuretics as tolerated. Check I/Os and daily weight 6. Further rhythm management to be considered Further plans are to follow Johann Cowan MD
[2017-04-10] MEDS ORDERED: PATIENT'S OWN MEDICATION (NON-FORMULARY) (Lisinopril/Hydrochlorothiazide [Lisinopril-Hctz PO SCH (10:00)
[2017-04-10] MEDS ORDERED: ATENOLOL 25 MG TABLET (FP) PO SCH (10:00)
[2017-04-10] MEDS: RAMIPRIL 2.5 MG CAPSULE (FP) PO SCH (10:20)
[2017-04-10] MEDS: APIXABAN 5 MG TABLET PO SCH ×2 (10:21→21:35)
[2017-04-10] MEDS: METOPROLOL TARTRATE 50 MG TABLET (FP) PO SCH ×2 (10:21→21:34)
[2017-04-10] MEDS: RANITIDINE HCL 150 MG TABLET (FP) PO SCH ×2 (10:22→21:34)
[2017-04-10] MEDS: METHIMAZOLE 10 MG TABLET (FP) PO SCH (10:22)
[2017-04-10] MEDS: PRIMIDONE 50 MG TABLET PO SCH (10:27)
--- NOTE | 2017-04-10 10:30 | PN ---
Progress Note (short form) - Note Progress Note: PULMONARY CONSULTATION DICTATED 04/10/17 IMP DYSPNEA ? CHF,?PE NEW ONSET AFIB CHEST PAIN ASTHMA HTN DM TREMORS ?PARKINSONS PLAN NASAL O2 INHALED BRONCHODILATORS SHORT COURSE OF STEROIDS RATE CONTROL CHEST CTA ANTICOAGULATION ECHO DR HIGGINS Problem List - Problems (1) CHF (congestive heart failure) Code(s): I50.9 - HEART FAILURE, UNSPECIFIED Qualifiers: Congestive heart failure type: unspecified congestive heart failure type Congestive heart failure chronicity: unspecified congestive heart failure chronicity Qualified Code(s): I50.9 - Heart failure, unspecified (2) Dyspnea Code(s): R06.00 - DYSPNEA, UNSPECIFIED Qualifiers: Dyspnea type: dyspnea on exertion Qualified Code(s): R06.09 - Other forms of dyspnea (3) HTN (hypertension) Code(s): I10 - ESSENTIAL (PRIMARY) HYPERTENSION Qualifiers: Hypertension type: essential hypertension Qualified Code(s): I10 - Essential (primary) hypertension (4) Hyperthyroidism Code(s): E05.90 - THYROTOXICOSIS, UNSP WITHOUT THYROTOXIC CRISIS OR STORM (5) New onset atrial fibrillation Code(s): I48.91 - UNSPECIFIED ATRIAL FIBRILLATION (6) Parkinson disease Code(s): G20 - PARKINSON'S DISEASE (7) Asthma Code(s): J45.909 - UNSPECIFIED ASTHMA, UNCOMPLICATED
[2017-04-10] MEDS ORDERED: methylPREDNISolone NA SUCC 40 MG/1 ML VIAL IVPB ONE (13:15)
--- NOTE | 2017-04-10 16:02 | PN ---
Physical Exam: SUBJECTIVE: Patient seen and examined. She denies any chest pain or shortness of breath. Tolerating periods of room air, 2 liters as needed. OBJECTIVE: improvement of wheezing on bilateral lung painting, tolerating periods of room air patient has history of bronchial asthma UA +2 leuks, 28 wbc, +burning during urination, start on Keflex BID x 7 days Urine cultures pending CTA ordered by Athlete Marketing Agent, r/o PE Vital Signs Period Temp Pulse Resp BP Sys/Ugarte Pulse Ox Last 24 Hr 98 F-98.8 F 84-111 19-20 111-129/52-80 94 GENERAL: The patient is awake, alert, and fully oriented, upper extremities, facial tremors @ rest HEAD: Normal with no signs of trauma. EYES: PERRL, extraocular movements intact, sclera anicteric, conjunctiva clear. No ptosis. ENT: Ears normal, nares patent, oropharynx clear without exudates, moist mucous membranes. NECK: Trachea midline, full range of motion, supple. LUNGS: Mild wheezing on bilateral upper lobes, tolerating room air HEART:Atrial fibrillation of unknown duration ABDOMEN: Soft, nontender, nondistended, normoactive bowel sounds, no guarding, no rebound, no hepatosplenomegaly, no masses. EXTREMITIES: trace mild edema on bilateral lower ext. NEUROLOGICAL: parkinsons?-patient denies, upper body tremors at rest SKIN: Warm, dry, normal turgor, no rashes or lesions noted Laboratory Results - last 24 hr 04/09/17 04/10/17 04/10/17 22:00 05:35 05:35 WBC 3.3 L D RBC 4.65 Hgb 12.8 D Hct 38.8 MCV 83.4 MCHC 32.9 RDW 14.2 Plt Count 202 MPV 8.2 Neutrophils % 81.1 D Lymphocytes % 17.0 D Monocytes % 1.7 L D Eosinophils % 0.0 D Basophils % 0.2 Sodium 140 Potassium 4.0 Chloride 101 Carbon Dioxide 31 Anion Gap 8 BUN 23 H D Creatinine 0.9 Creat Clearance w eGFR > 60 Random Glucose 155 H D Hemoglobin A1c % Calcium 8.7 Total Bilirubin 0.3 D AST 17 ALT 18 Alkaline Phosphatase 89 Total Protein 7.2 Albumin 3.5 Triglycerides 50 Cholesterol 177 Total LDL Cholesterol 109 H HDL Cholesterol 62 H Urine Color Ltyellow Urine Appearance Clear Urine pH 5.0 Ur Specific [place] 1.010 Urine Protein Negative Urine Glucose (UA) Negative Urine Ketones Negative Urine Blood 1+ H Urine Nitrite Negative Urine Bilirubin Negative Urine Urobilinogen Negative Ur Leukocyte Esterase 2+ H Urine RBC 8 Urine WBC 28 Ur Epithelial Cells Rare Hyaline Casts 1 Urine Mucus Rare 04/10/17 05:35 WBC RBC Hgb Hct MCV MCHC RDW Plt Count MPV Neutrophils % Lymphocytes % Monocytes % Eosinophils % Basophils % Sodium Potassium Chloride Carbon Dioxide Anion Gap BUN Creatinine Creat Clearance w eGFR Random Glucose Hemoglobin A1c % 5.9 D Calcium Total Bilirubin AST ALT Alkaline Phosphatase Total Protein Albumin Triglycerides Cholesterol Total LDL Cholesterol HDL Cholesterol Urine Color Urine Appearance Urine pH Ur Specific [place] Urine Protein Urine Glucose (UA) Urine Ketones Urine Blood Urine Nitrite Urine Bilirubin Urine Urobilinogen Ur Leukocyte Esterase Urine RBC Urine WBC Ur Epithelial Cells Hyaline Casts Urine Mucus Active Medications Generic Name Dose Route Start Last Admin Trade Name Freq PRN Reason Stop Dose Admin Acetaminophen 650 mg 04/09/17 18:49 Tylenol - PO Q6H PRN FEVER OR PAIN Albuterol/Ipratropium 1 amp 04/09/17 11:00 04/10/17 10:38 Duoneb - NEB 1 amp Q4HWA SRIKANTH Administration Apixaban 5 mg 04/09/17 13:15 04/10/17 10:21 Eliquis - PO 5 mg BID SRIKANTH Administration Furosemide 40 mg 04/09/17 14:00 04/10/17 14:42 Lasix Injection - IVPUSH 40 mg BID@0600,1400 SRIKANTH Administration Latanoprost 1 drop 04/09/17 22:00 04/09/17 21:50 Xalatan 0.005% Eye Drops - OU 1 drop HS SRIKANTH Administration Methimazole 10 mg 04/10/17 10:00 04/10/17 10:22 Tapazole - PO 10 mg DAILY SRIKANTH Administration Methylprednisolone Sodium Succinate 40 mg 04/09/17 18:00 04/10/17 10:20 Solu-Medrol - IVPB 40 mg Q8H-IV SRIKANTH Administration Metoprolol Tartrate 50 mg 04/10/17 10:00 04/10/17 10:21 Lopressor - PO 50 mg BID SRIKANTH Administration Miconazole Nitrate 100 mg 04/09/17 22:00 04/09/17 21:51 Monistat-7 Vaginal Suppository - PV 04/15/17 22:01 100 mg HS SRIKANTH Administration Montelukast Sodium 10 mg 04/09/17 22:00 04/09/17 21:50 Singulair - PO 10 mg HS SRIKANTH Administration Primidone 50 mg 04/09/17 18:30 04/10/17 10:27 Mysoline - PO 50 mg DAILY SRIKANTH Administration Ramipril 2.5 mg 04/09/17 13:15 04/10/17 10:20 Altace - PO 2.5 mg DAILY SRIKANTH Administration Ranitidine HCl 150 mg 04/09/17 22:00 04/10/17 10:22 Zantac - PO 150 mg BID SRIKANTH Administration ASSESSMENT/PLAN: Patient is a 81 year old female with a significant past medical history of hyperthyroidism, hypertension, borderline DM, chronic bronchial asthma, 1st stage parkinsons disease and glaucoma. She presents to the ED with diffuse anterior chest pain radiating to back, shortness of breath and dyspnea with exertion. Cardiology: Acute CHF likely induced by new onset atrial fibrillation Assessment/Plan: Dyspnea improving today On Lasix 40mg BID Metoprolol 50mg BID Ramipril 2.5 PO daily Telemonitoring shows atrial afib 100s Anticoagulation with Eliquis 5mg BID Daily weight, strict intake and output Patient lives alone, hx of falls, but no recent falls as per family CTA negative for PE Echo pending Endocrine: Assessment/Plan: Hyperthyroidism On Tapazole 10mg daily HmgA1c 5.9 - boderline diabetes Monitor serum blood glucose with a.m. labs while on steroids Pulmonary Bronchial asthma - acute on chronic Assessment/Plan: Scattered wheezing on bilateral lung painting with improvement Has hx of bronchial asthma Duonebs scheduled q 4 Received Solumedrol 40mg x 2 doses today with improvement, will taper to Prednisone 60mg PO in a.m. Will add Claritin Pulmonary following Neurology: Parkinsons disease - chronic Assessment/Plan: On Primidone 50mg po daily : Urinary tract infection - acute Assessment/Plan: Patient states she has burning on urination UA with +2 leuks, 28 wbc, urine cultures pending Started on Keflex 500mg BID x 7 days F.E.N. Fluids: tolerating PO Electrolytes: monitor Nutrition:low sodium diet Prophylaxis: DVT: Eliquis 5mg PO daily GI; Protonix 40mg daily Dispo:Telemonitoring, Requires inpatient hospitalization. full code. Visit type - Emergency Visit Emergency Visit: Yes ED Registration Date: 04/09/17 Care time: The patient presented to the Emergency Department on the above date and was hospitalized for further evaluation of their emergent condition. - New Patient This patient is new to me today: Yes Date on this admission: 04/10/17 - Critical Care Critical Care patient: No - Discharge Referral Referred to [facility] No
--- NOTE | 2017-04-10 17:36 | CONS ---
DATE OF CONSULTATION: 04/10/2017 REFERRING PROVIDER: ARIEL Carter The patient is an 81-year-old female, past medical history of hypertension, tremors, questionable early Parkinson's, diabetes, hypothyroidism, asthma, admitted to [facility] with complaint of increasing shortness of breath and chest pain. Patient states for past 4 or 5 days, she has been having intermittent chest pain. She describes the pain as sharp in character, increasing with respiration. She also complains of increasing shortness of breath and dyspnea on exertion. She apparently went to [facility] ER but left there when found it very crowded, at which time she presented to [facility] ER. In the emergency room she was noted to be in atrial fibrillation. She was admitted to the telemetry unit and she was started on anticoagulation. She was evaluated by Dr. Cowan for cardiology consultation. Also placed the patient on metoprolol. Patient is a nonsmoker. There is no history of occupational exposure to chemicals or fumes. She has a history of asthma and is maintained on inhaled bronchodilator at home, for which she is unsure of the name. She denies any history of respiratory failure in the past, or ventilatory support. She has been complaining of increasing shortness of breath as well as orthopnea over the past few days. She also had mild lower extremity edema. She was also started on IV diuretics. Past medical history, again, includes hypertension, diabetes mellitus, likely Parkinson's, hyperthyroidism, and asthma. SOCIAL HISTORY: Nonsmoker. Positive history of exposure to secondhand smoke. Born in [place] [facility] and moved to [facility] greater than 40 years ago. No history of occupational exposures. Current medications include Solu-Medrol, Tylenol, Altace, Eliquis, Monistat, Tapazole, Mysoline, DuoNeb, Lopressor, Zantac, Singulair, Lasix, and Xalatan. REVIEW OF SYSTEMS: Positive orthopnea, positive dyspnea, positive cough, clear sputum. Positive chest pain. No fever, no chills. No hemoptysis. No abdominal pain. PHYSICAL EXAMINATION: General: The patient is an elderly female, well developed, awake, alert, in no acute distress, sitting up in chair. Vital Signs: She is currently afebrile. Blood pressure is 127/62. Respiratory rate 20. O2 saturation is 93% on room air. HEENT: Normocephalic, atraumatic. Neck: Supple. Heart: Irregularly irregular. Normal S1, S2. Chest: Clear. Abdomen: Soft. Bowel sounds are positive. Extremities: Trace right lower extremity edema. WBC is 3.3, hemoglobin 12.8, hematocrit 38.8, with a platelet count of 202,000. INR is 1.1. BUN 23, creatinine is 0.9. Chest x-ray reveals no infiltrates and no effusions, cardiomegaly. IMPRESSION: 1. Dyspnea, multiple factors: 1) Possible mild congestive heart failure; 2) asthma; 3) pulmonary emboli. 2. New-onset atrial fibrillation. Again, rule out possibly secondary to emboli, possibly secondary to congestive heart failure. 3. History of asthma. 4. Hypertension. 5. Diabetes mellitus. PLAN: Continue inhaled bronchodilators, steroids, rate control as per Cardiology, echocardiogram, anticoagulation, also obtain CT scan of the chest, PE protocol, to rule out possible pulmonary emboli in view of recent onset of chest pain as well as new-onset atrial fibrillation and dyspnea, mild hypoxemia. Thank you. Will follow closely with you. RICH HIGGINS M.D. RUSSELL/[id number]
[2017-04-10] MEDS: POLYETHYLENE GLYCOL 3350 119 GM BTL PO SCH (18:39)
[2017-04-10] MEDS ORDERED: PT OWN MED DRAWER 7, Y5N ONE (21:31)
[2017-04-10] MEDS: LATANOPROST 0.005% OPHTH SOLN 2.5ML BOTTLE OU SCH (21:32)
[2017-04-10] MEDS: MICONAZOLE NITRATE 100 MG SUPP SUPP.VAG PV SCH (21:33)
[2017-04-10] MEDS: MONTELUKAST NA 10 MG TABLET PO SCH (21:34)
[2017-04-10] MEDS: CEPHALEXIN MONOHYDRATE 500 MG CAPSULE (UD) PO SCH (21:35)
[2017-04-10] MEDS: LORATADINE 10 MG TABLET PO SCH (21:35)
[2017-04-10] MEDS: DOCUSATE SODIUM 100 MG CAPSULE (FP) PO SCH (21:35)
[2017-04-10] MEDS: NYSTATIN 100,000 UNIT/GM TOPICAL CREAM 15 GM TUBE TP SCH (21:35)
[2017-04-11] MEDS: FUROSEMIDE 40 MG/4 ML INJECTABLE VIAL IVPUSH SCH ×2 (06:28→14:57)
[2017-04-11] MEDS: ALBUTEROL SO4 2.5/IPRATROPIUM 0.5 INH SOL 3 ML VIAL.NEB. NEB SCH ×4 (06:40→22:58)
[2017-04-11 07:25] LABS: BASOPHIL 0.1 % (0-2.0); MCHC 32.3 g/dl (32.0-36.0); MEAN CELL VOLUME 83.4 fl (80-96); MEAN PLT VOLUME 8.1 fl (7.5-11.1); NEUTROPHILS 82.8 % (42.8-82.8); PLATELET COUNT 207 K/MM3 (134-434); RDW 14.1 % (11.6-15.6); WHITE BLOOD COUNT 9.3 K/mm3 (4.0-10.0)
[2017-04-11 08:08] LABS: CALCIUM 8.9 mg/dL (8.5-10.1); COCKROFT - GAULT 68.986; CREATININE 0.9 mg/dL (0.55-1.02)
[2017-04-11] MEDS: APIXABAN 5 MG TABLET PO SCH ×2 (09:17→22:12)
[2017-04-11] MEDS: METHIMAZOLE 10 MG TABLET (FP) PO SCH (09:17)
[2017-04-11] MEDS: DOCUSATE SODIUM 100 MG CAPSULE (FP) PO SCH ×2 (09:17→22:12)
[2017-04-11] MEDS: RAMIPRIL 2.5 MG CAPSULE (FP) PO SCH (09:17)
[2017-04-11] MEDS: METOPROLOL TARTRATE 50 MG TABLET (FP) PO SCH ×2 (09:17→22:12)
[2017-04-11] MEDS: LORATADINE 10 MG TABLET PO SCH (09:18)
[2017-04-11] MEDS: RANITIDINE HCL 150 MG TABLET (FP) PO SCH ×2 (09:18→22:12)
[2017-04-11] MEDS: CEPHALEXIN MONOHYDRATE 500 MG CAPSULE (UD) PO SCH ×2 (09:18→22:12)
[2017-04-11] MEDS: POLYETHYLENE GLYCOL 3350 119 GM BTL PO SCH (09:33)
[2017-04-11] MEDS: NYSTATIN 100,000 UNIT/GM TOPICAL CREAM 15 GM TUBE TP SCH ×2 (09:34→22:13)
[2017-04-11] MEDS: PRIMIDONE 50 MG TABLET PO SCH (09:34)
[2017-04-11] MEDS ORDERED: predniSONE 20 MG TABLET (UD) PO SCH (10:00)
[2017-04-11] MEDS ORDERED: methylPREDNISolone NA SUCC 40 MG/1 ML VIAL IVPB SCH (10:00)
--- NOTE | 2017-04-11 10:37 | PN ---
Progress Note, Physician Chief Complaint: Appears comfortable Heart rate better controlled Not in distress History of Present Illness: Patient was seen and examined. Awake and alert. Chart was reviewed Denies chest pain, SOB or palpitations Remains in AF with appropriate ventricular response - Current Medication List Current Medications: Active Medications Acetaminophen (Tylenol -) 650 mg PO Q6H PRN PRN Reason: FEVER OR PAIN Albuterol/Ipratropium (Duoneb -) 1 amp NEB Q4HWA [facility] Last Admin: 04/11/17 06:40 Dose: 1 amp Apixaban (Eliquis -) 5 mg PO BID [facility] Last Admin: 04/11/17 09:17 Dose: 5 mg Cephalexin HCl (Keflex -) 500 mg PO BID [facility] Last Admin: 04/11/17 09:18 Dose: 500 mg Docusate Sodium (Colace -) 100 mg PO BID [facility] Last Admin: 04/11/17 09:17 Dose: 100 mg Furosemide (Lasix Injection -) 40 mg IVPUSH BID@0600,1400 [facility] Last Admin: 04/11/17 06:28 Dose: 40 mg Latanoprost (Xalatan 0.005% Eye Drops -) 1 drop OU [facility] Last Admin: 04/10/17 21:32 Dose: 1 drop Loratadine (Claritin -) 10 mg PO DAILY [facility] Last Admin: 04/11/17 09:18 Dose: 10 mg Methimazole (Tapazole -) 10 mg PO DAILY [facility] Last Admin: 04/11/17 09:17 Dose: 10 mg Metoprolol Tartrate (Lopressor -) 50 mg PO BID [facility] Last Admin: 04/11/17 09:17 Dose: 50 mg Miconazole Nitrate (Monistat-7 Vaginal Suppository -) 100 mg PV [facility] Stop: 04/15/17 22:01 Last Admin: 04/10/17 21:33 Dose: 100 mg Montelukast Sodium (Singulair -) 10 mg PO [facility] Last Admin: 04/10/17 21:34 Dose: 10 mg Nystatin (Mycostatin Cream -) 1 applic TP BID [facility] Last Admin: 04/11/17 09:34 Dose: Not Given Polyethylene Glycol (Miralax (For Daily Use) -) 17 gm PO DAILY [facility] Last Admin: 04/11/17 09:33 Dose: Not Given Prednisone (Deltasone -) 60 mg PO DAILY [facility] Last Admin: 04/11/17 09:17 Dose: 60 mg Primidone (Mysoline -) 50 mg PO DAILY [facility] Last Admin: 04/11/17 09:34 Dose: 50 mg Ramipril (Altace -) 2.5 mg PO DAILY [facility] Last Admin: 04/11/17 09:17 Dose: 2.5 mg Ranitidine HCl (Zantac -) 150 mg PO BID [facility] Last Admin: 04/11/17 09:18 Dose: 150 mg - Objective Vital Signs: Vital Signs Temperature 98.5 F 04/11/17 08:10 Pulse Rate 79 04/11/17 08:10 Respiratory Rate 20 04/11/17 08:10 Blood Pressure 104/57 04/11/17 08:10 O2 Sat by Pulse Oximetry (%) 97 04/10/17 21:00 HENT: Yes: Atraumatic Neck: Yes: Supple Cardiovascular: Yes: Pulse Irregular, S1, S2 Respiratory: Yes: Diminished Gastrointestinal: Yes: Normal Bowel Sounds, Soft, Abdomen, Obese. No: Tenderness Edema: No Additional Findings/Remarks: - Review of Systems Constitutional: denies: Chills, Fever Cardiovascular: reports: Chest Pain, Shortness of Breath. denies: Palpitations Respiratory: reports: SOB, SOB on Exertion. denies: Cough, Hemoptysis, Orthopnea, PND Gastrointestinal: denies: Abdominal Pain, Constipation, Diarrhea, Melena, Nausea , Rectal Bleeding, Vomiting Genitourinary: denies: Dysuria Musculoskeletal: denies: Joint Pain Neurological: reports: Tremors. denies: Dizziness, Headache, Seizure, Syncope Labs: CBC, BMP 04/11/17 05:35 04/11/17 05:35 - ....Imaging Cat Scan: Report Reviewed (Chest CTA no pulmonary emolism) Problem List - Problems (1) CHF (congestive heart failure) Code(s): I50.9 - HEART FAILURE, UNSPECIFIED Qualifiers: Congestive heart failure type: unspecified congestive heart failure type Congestive heart failure chronicity: unspecified congestive heart failure chronicity Qualified Code(s): I50.9 - Heart failure, unspecified (2) Dyspnea Code(s): R06.00 - DYSPNEA, UNSPECIFIED Qualifiers: Dyspnea type: dyspnea on exertion Qualified Code(s): R06.09 - Other forms of dyspnea (3) HTN (hypertension) Code(s): I10 - ESSENTIAL (PRIMARY) HYPERTENSION Qualifiers: Hypertension type: essential hypertension Qualified Code(s): I10 - Essential (primary) hypertension (4) Hyperthyroidism Code(s): E05.90 - THYROTOXICOSIS, UNSP WITHOUT THYROTOXIC CRISIS OR STORM (5) New onset atrial fibrillation Code(s): I48.91 - UNSPECIFIED ATRIAL FIBRILLATION (6) Parkinson disease Code(s): G20 - PARKINSON'S DISEASE Assessment/Plan 1. Atrial fibrillation - duration unknown [id number] of 6+, rate improved 2. HTN/HCVD 3. Borderline diabetes mellitus 4. Dyspnea - possible acute on chronic LV failure - diastolic failure 5. Possible early Parkinson's with tremors 6. Hyperthyroidism PLAN: 1. Continue Metoprolol 50 mg BID as tolerated 3. Transthoracic echocardiography to assess LV and valvular function 4. Continue Ramipril 5. Currently on IV diuretics as tolerated. Check I/Os and daily weight 6. Further rhythm management to be considered - pending echocardiography result , further possible synchronized cardioversion with DON is to be decided Further plans are to follow Johann Cowan MD
--- NOTE | 2017-04-11 11:40 | PN ---
Progress Note, Physician History of Present Illness: pulmonary alert,feeling better,less dyspneic,-cp. chest ct -pe - Current Medication List Current Medications: Active Medications Acetaminophen (Tylenol -) 650 mg PO Q6H PRN PRN Reason: FEVER OR PAIN Albuterol/Ipratropium (Duoneb -) 1 amp NEB Q4HWA [facility] Last Admin: 04/11/17 10:55 Dose: 1 amp Apixaban (Eliquis -) 5 mg PO BID [facility] Last Admin: 04/11/17 09:17 Dose: 5 mg Cephalexin HCl (Keflex -) 500 mg PO BID [facility] Last Admin: 04/11/17 09:18 Dose: 500 mg Docusate Sodium (Colace -) 100 mg PO BID [facility] Last Admin: 04/11/17 09:17 Dose: 100 mg Furosemide (Lasix Injection -) 40 mg IVPUSH BID@0600,1400 [facility] Last Admin: 04/11/17 06:28 Dose: 40 mg Latanoprost (Xalatan 0.005% Eye Drops -) 1 drop OU [facility] Last Admin: 04/10/17 21:32 Dose: 1 drop Loratadine (Claritin -) 10 mg PO DAILY [facility] Last Admin: 04/11/17 09:18 Dose: 10 mg Methimazole (Tapazole -) 10 mg PO DAILY [facility] Last Admin: 04/11/17 09:17 Dose: 10 mg Metoprolol Tartrate (Lopressor -) 50 mg PO BID [facility] Last Admin: 04/11/17 09:17 Dose: 50 mg Miconazole Nitrate (Monistat-7 Vaginal Suppository -) 100 mg PV [facility] Stop: 04/15/17 22:01 Last Admin: 04/10/17 21:33 Dose: 100 mg Montelukast Sodium (Singulair -) 10 mg PO [facility] Last Admin: 04/10/17 21:34 Dose: 10 mg Nystatin (Mycostatin Cream -) 1 applic TP BID [facility] Last Admin: 04/11/17 09:34 Dose: Not Given Polyethylene Glycol (Miralax (For Daily Use) -) 17 gm PO DAILY [facility] Last Admin: 04/11/17 09:33 Dose: Not Given Prednisone (Deltasone -) 60 mg PO DAILY [facility] Last Admin: 04/11/17 09:17 Dose: 60 mg Primidone (Mysoline -) 50 mg PO DAILY [facility] Last Admin: 04/11/17 09:34 Dose: 50 mg Ramipril (Altace -) 2.5 mg PO DAILY [facility] Last Admin: 04/11/17 09:17 Dose: 2.5 mg Ranitidine HCl (Zantac -) 150 mg PO BID [facility] Last Admin: 04/11/17 09:18 Dose: 150 mg - Objective Vital Signs: Vital Signs Temperature 98.5 F 04/11/17 08:10 Pulse Rate 79 04/11/17 08:10 Respiratory Rate 20 04/11/17 08:10 Blood Pressure 104/57 04/11/17 08:10 O2 Sat by Pulse Oximetry (%) 97 04/10/17 21:00 Constitutional: Yes: Well Nourished, Calm Eyes: Yes: WNL HENT: Yes: WNL Cardiovascular: Yes: Pulse Irregular, S1, S2 Respiratory: Yes: Diminished Gastrointestinal: Yes: Normal Bowel Sounds, Soft Extremities: Yes: WNL Edema: Yes Labs: CBC, BMP 04/11/17 05:35 04/11/17 05:35 INR, PTT INR 1.10 (0.82-1.09) 04/08/17 23:44 Problem List - Problems (1) CHF (congestive heart failure) Code(s): I50.9 - HEART FAILURE, UNSPECIFIED Qualifiers: Qualified Code(s): I50.9 - Heart failure, unspecified (2) Dyspnea Code(s): R06.00 - DYSPNEA, UNSPECIFIED Qualifiers: Qualified Code(s): R06.09 - Other forms of dyspnea (3) HTN (hypertension) Code(s): I10 - ESSENTIAL (PRIMARY) HYPERTENSION Qualifiers: Qualified Code(s): I10 - Essential (primary) hypertension (4) Hyperthyroidism Code(s): E05.90 - THYROTOXICOSIS, UNSP WITHOUT THYROTOXIC CRISIS OR STORM (5) New onset atrial fibrillation Code(s): I48.91 - UNSPECIFIED ATRIAL FIBRILLATION (6) Parkinson disease Code(s): G20 - PARKINSON'S DISEASE (7) Asthma Code(s): J45.909 - UNSPECIFIED ASTHMA, UNCOMPLICATED Assessment/Plan IMP DYSPNEA ? CHF NEW ONSET AFIB CHEST PAIN ASTHMA HTN DM TREMORS ?PARKINSONS PLAN NASAL O2 INHALED BRONCHODILATORS SHORT COURSE OF STEROIDS RATE CONTROL ANTICOAGULATION ECHO pending DR HIGGINS Problem List - Problems (1) CHF (congestive heart failure) Code(s): I50.9 - HEART FAILURE, UNSPECIFIED Qualifiers: Congestive heart failure type: unspecified congestive heart failure type Congestive heart failure chronicity: unspecified congestive heart failure chronicity Qualified Code(s): I50.9 - Heart failure, unspecified (2) Dyspnea Code(s): R06.00 - DYSPNEA, UNSPECIFIED Qualifiers: Dyspnea type: dyspnea on exertion Qualified Code(s): R06.09 - Other forms of dyspnea (3) HTN (hypertension) Code(s): I10 - ESSENTIAL (PRIMARY) HYPERTENSION Qualifiers: Hypertension type: essential hypertension Qualified Code(s): I10 - Essential (primary) hypertension (4) Hyperthyroidism Code(s): E05.90 - THYROTOXICOSIS, UNSP WITHOUT THYROTOXIC CRISIS OR STORM (5) New onset atrial fibrillation Code(s): I48.91 - UNSPECIFIED ATRIAL FIBRILLATION (6) Parkinson disease Code(s): G20 - PARKINSON'S DISEASE (7) Asthma Code(s): J45.909 - UNSPECIFIED ASTHMA, UNCOMPLICATED
--- NOTE | 2017-04-11 17:01 | PN ---
Physical Exam: SUBJECTIVE: Patient seen and examined. Family in room. Patient states she feels well. OBJECTIVE: No wheezing, tolerating room air CTA negative for PE Vital Signs Period Temp Pulse Resp BP Sys/Ugarte Pulse Ox Last 24 Hr 98.0 F-98.5 F 76-130 20-20 104-126/56-88 96-97 GENERAL: The patient is awake, alert, and fully oriented, upper extremities, facial tremors @ rest HEAD: Normal with no signs of trauma. EYES: PERRL, extraocular movements intact, sclera anicteric, conjunctiva clear. No ptosis. ENT: Ears normal, nares patent, oropharynx clear without exudates, moist mucous membranes. NECK: Trachea midline, full range of motion, supple. LUNGS: no wheezing auscultated, tolerating room air HEART:Atrial fibrillation of unknown duration ABDOMEN: Soft, nontender, nondistended, normoactive bowel sounds, no guarding, no rebound, no hepatosplenomegaly, no masses. EXTREMITIES: trace mild edema on bilateral lower ext. NEUROLOGICAL: parkinsons?-patient denies, upper body tremors at rest SKIN: Warm, dry, normal turgor, no rashes or lesions noted Laboratory Results - last 24 hr 04/11/17 04/11/17 05:35 05:35 WBC 9.3 D RBC 4.51 Hgb 12.2 Hct 37.6 MCV 83.4 MCHC 32.3 RDW 14.1 Plt Count 207 MPV 8.1 Neutrophils % 82.8 Lymphocytes % 11.4 D Monocytes % 5.7 D Eosinophils % 0.0 Basophils % 0.1 Sodium 137 Potassium 4.3 Chloride 98 Carbon Dioxide 31 Anion Gap 8 BUN 30 H D Creatinine 0.9 Random Glucose 120 H D Calcium 8.9 Active Medications Generic Name Dose Route Start Last Admin Trade Name Freq PRN Reason Stop Dose Admin Acetaminophen 650 mg 04/09/17 18:49 Tylenol - PO Q6H PRN FEVER OR PAIN Albuterol/Ipratropium 1 amp 04/09/17 11:00 04/11/17 10:55 Duoneb - NEB 1 amp Q4HWA SRIKANTH Administration Apixaban 5 mg 04/09/17 13:15 04/11/17 09:17 Eliquis - PO 5 mg BID SRIKANTH Administration Cephalexin HCl 500 mg 04/10/17 22:00 04/11/17 09:18 Keflex - PO 500 mg BID SRIKANTH Administration Docusate Sodium 100 mg 04/10/17 22:00 04/11/17 09:17 Colace - PO 100 mg BID SRIKANTH Administration Furosemide 40 mg 04/09/17 14:00 04/11/17 14:57 Lasix Injection - IVPUSH 40 mg BID@0600,1400 SRIKANTH Administration Latanoprost 1 drop 04/09/17 22:00 04/10/17 21:32 Xalatan 0.005% Eye Drops - OU 1 drop HS SRIKANTH Administration Loratadine 10 mg 04/10/17 22:00 04/11/17 09:18 Claritin - PO 10 mg DAILY SRIKANTH Administration Methimazole 10 mg 04/10/17 10:00 04/11/17 09:17 Tapazole - PO 10 mg DAILY SRIKANTH Administration Metoprolol Tartrate 50 mg 04/10/17 10:00 04/11/17 09:17 Lopressor - PO 50 mg BID SRIKANTH Administration Miconazole Nitrate 100 mg 04/09/17 22:00 04/10/17 21:33 Monistat-7 Vaginal Suppository - PV 04/15/17 22:01 100 mg HS SRIKANTH Administration Montelukast Sodium 10 mg 04/09/17 22:00 04/10/17 21:34 Singulair - PO 10 mg HS SRIKANTH Administration Nystatin 1 applic 04/10/17 22:00 04/11/17 09:34 Mycostatin Cream - TP Not Given BID SRIKANTH Polyethylene Glycol 17 gm 04/10/17 17:00 04/11/17 09:33 Miralax (For Daily Use) - PO Not Given DAILY [facility] Prednisone 60 mg 04/11/17 10:00 04/11/17 09:17 Deltasone - PO 60 mg DAILY SRIKANTH Administration Primidone 50 mg 04/09/17 18:30 04/11/17 09:34 Mysoline - PO 50 mg DAILY SRIKANTH Administration Ramipril 2.5 mg 04/09/17 13:15 04/11/17 09:17 Altace - PO 2.5 mg DAILY SRIKANTH Administration Ranitidine HCl 150 mg 04/09/17 22:00 04/11/17 09:18 Zantac - PO 150 mg BID SRIKANTH Administration ASSESSMENT/PLAN: Patient is a 81 year old female with a significant past medical history of hyperthyroidism, hypertension, borderline DM, chronic bronchial asthma, 1st stage parkinsons disease and glaucoma. She presents to the ED with diffuse anterior chest pain radiating to back, shortness of breath and dyspnea with exertion. Cardiology: Acute CHF likely induced by new onset atrial fibrillation Assessment/Plan: Dyspnea improving on room air, lungs clear/diminished, no wheezing on my exam On Lasix 40mg BID Metoprolol 50mg BID Ramipril 2.5 PO daily Telemonitoring shows atrial afib 90s Anticoagulation with Eliquis 5mg BID Daily weight, strict intake and output Patient lives alone, hx of falls, but no recent falls as per family CTA negative for PE Echo pending Endocrine: Assessment/Plan: Hyperthyroidism On Tapazole 10mg daily HmgA1c 5.9 - boderline diabetes Monitor serum blood glucose with a.m. labs while on steroids Pulmonary Bronchial asthma - acute on chronic Assessment/Plan: improvement of scattered wheezing Has hx of bronchial asthma Duonebs scheduled q 4 On Prednisone 60mg with further taper as tolerated Will add Claritin Pulmonary following Neurology: Parkinsons disease - chronic Assessment/Plan: On Primidone 50mg po daily : Urinary tract infection - acute Assessment/Plan: Patient states she has burning on urination On Keflex 500mg BID (day 2) F.E.N. Fluids: tolerating PO Electrolytes: monitor Nutrition:low sodium diet Prophylaxis: DVT: Eliquis 5mg PO daily GI; Protonix 40mg daily Dispo:Telemonitoring, Requires inpatient hospitalization. full code.
[2017-04-11] MEDS: MONTELUKAST NA 10 MG TABLET PO SCH (22:12)
[2017-04-11] MEDS: MICONAZOLE NITRATE 100 MG SUPP SUPP.VAG PV SCH (22:12)
[2017-04-11] MEDS: LATANOPROST 0.005% OPHTH SOLN 2.5ML BOTTLE OU SCH (22:12)
[2017-04-12] MEDS: FUROSEMIDE 40 MG/4 ML INJECTABLE VIAL IVPUSH SCH ×2 (06:25→15:10)
[2017-04-12] MEDS: ALBUTEROL SO4 2.5/IPRATROPIUM 0.5 INH SOL 3 ML VIAL.NEB. NEB SCH ×5 (06:35→23:20)
[2017-04-12 07:47] LABS: MCH 27.6 pg (25.7-33.7); MCHC 32.6 g/dl (32.0-36.0); MEAN CELL VOLUME 84.5 fl (80-96); MEAN PLT VOLUME 7.9 fl (7.5-11.1); NEUTROPHILS 69.3 % (42.8-82.8); PLATELET COUNT 238 K/MM3 (134-434); RDW 14.6 % (11.6-15.6)
[2017-04-12 08:27] LABS: ALBUMIN 3.4 g/dl (3.4-5.0); ALK PHOS 79 U/L (45-117); ANION GAP 10 (8-16); BILIRUBIN,TOTAL 0.3 mg/dL (0.2-1.0); CALCIUM 8.8 mg/dL (8.5-10.1); CO2 34 mmol/L (21-32); CREATININE 0.9 mg/dL (0.55-1.02); GLUCOSE,RANDOM 87 mg/dL (74-106); SGOT/AST 11 U/L (15-37); SGPT/ALT 18 U/L (12-78)
[2017-04-12] MEDS: RANITIDINE HCL 150 MG TABLET (FP) PO SCH ×2 (09:10→22:21)
[2017-04-12] MEDS: APIXABAN 5 MG TABLET PO SCH ×2 (09:10→22:18)
[2017-04-12] MEDS: RAMIPRIL 2.5 MG CAPSULE (FP) PO SCH (09:10)
[2017-04-12] MEDS: METOPROLOL TARTRATE 50 MG TABLET (FP) PO SCH ×2 (09:10→22:19)
[2017-04-12] MEDS: LORATADINE 10 MG TABLET PO SCH (09:10)
[2017-04-12] MEDS: METHIMAZOLE 10 MG TABLET (FP) PO SCH (09:11)
[2017-04-12] MEDS: POLYETHYLENE GLYCOL 3350 119 GM BTL PO SCH (09:11)
[2017-04-12] MEDS: NYSTATIN 100,000 UNIT/GM TOPICAL CREAM 15 GM TUBE TP SCH ×2 (09:11→22:20)
[2017-04-12] MEDS: CEPHALEXIN MONOHYDRATE 500 MG CAPSULE (UD) PO SCH ×2 (09:11→22:20)
[2017-04-12] MEDS: PRIMIDONE 50 MG TABLET PO SCH (09:12)
[2017-04-12] MEDS: DOCUSATE SODIUM 100 MG CAPSULE (FP) PO SCH ×2 (09:12→22:18)
[2017-04-12] MEDS ORDERED: predniSONE 20 MG TABLET (UD) PO SCH (10:00)
--- NOTE | 2017-04-12 11:04 | PN ---
Progress Note, Physician History of Present Illness: pulmonary alert,feeling better,less dyspneic,+cough clear sputum - Current Medication List Current Medications: Active Medications Acetaminophen (Tylenol -) 650 mg PO Q6H PRN PRN Reason: FEVER OR PAIN Last Admin: 04/12/17 09:10 Dose: 650 mg Albuterol/Ipratropium (Duoneb -) 1 amp NEB Q4HWA [facility] Last Admin: 04/12/17 10:34 Dose: 1 amp Apixaban (Eliquis -) 5 mg PO BID [facility] Last Admin: 04/12/17 09:10 Dose: 5 mg Cephalexin HCl (Keflex -) 500 mg PO BID [facility] Last Admin: 04/12/17 09:11 Dose: 500 mg Docusate Sodium (Colace -) 100 mg PO BID [facility] Last Admin: 04/12/17 09:12 Dose: 100 mg Furosemide (Lasix Injection -) 40 mg IVPUSH BID@0600,1400 [facility] Last Admin: 04/12/17 06:25 Dose: 40 mg Latanoprost (Xalatan 0.005% Eye Drops -) 1 drop OU [facility] Last Admin: 04/11/17 22:12 Dose: 1 drop Loratadine (Claritin -) 10 mg PO DAILY [facility] Last Admin: 04/12/17 09:10 Dose: 10 mg Methimazole (Tapazole -) 10 mg PO DAILY [facility] Last Admin: 04/12/17 09:11 Dose: 10 mg Metoprolol Tartrate (Lopressor -) 50 mg PO BID [facility] Last Admin: 04/12/17 09:10 Dose: 50 mg Miconazole Nitrate (Monistat-7 Vaginal Suppository -) 100 mg PV [facility] Stop: 04/15/17 22:01 Last Admin: 04/11/17 22:12 Dose: 100 mg Montelukast Sodium (Singulair -) 10 mg PO [facility] Last Admin: 04/11/17 22:12 Dose: 10 mg Nystatin (Mycostatin Cream -) 1 applic TP BID [facility] Last Admin: 04/12/17 09:11 Dose: 1 applic Polyethylene Glycol (Miralax (For Daily Use) -) 17 gm PO DAILY [facility] Last Admin: 04/12/17 09:11 Dose: Not Given Prednisone (Deltasone -) 50 mg PO DAILY [facility] Last Admin: 04/12/17 09:11 Dose: 50 mg Primidone (Mysoline -) 50 mg PO DAILY [facility] Last Admin: 04/12/17 09:12 Dose: 50 mg Ramipril (Altace -) 2.5 mg PO DAILY [facility] Last Admin: 04/12/17 09:10 Dose: 2.5 mg Ranitidine HCl (Zantac -) 150 mg PO BID [facility] Last Admin: 04/12/17 09:10 Dose: 150 mg - Objective Vital Signs: Vital Signs Temperature 98.4 F 04/12/17 07:46 Pulse Rate 85 04/12/17 07:46 Respiratory Rate 20 04/12/17 07:46 Blood Pressure 134/94 04/12/17 07:46 O2 Sat by Pulse Oximetry (%) 94 L 04/11/17 21:00 Constitutional: Yes: Well Nourished, Calm Eyes: Yes: WNL HENT: Yes: WNL Neck: Yes: WNL Cardiovascular: Yes: Pulse Irregular, S1, S2 Respiratory: Yes: Rales (BIBASILAR RALES) Gastrointestinal: Yes: Normal Bowel Sounds, Soft Extremities: Yes: WNL Edema: No Labs: CBC, BMP 04/12/17 05:40 04/12/17 05:40 INR, PTT INR 1.10 (0.82-1.09) 04/08/17 23:44 Problem List - Problems (1) CHF (congestive heart failure) Code(s): I50.9 - HEART FAILURE, UNSPECIFIED Qualifiers: Congestive heart failure type: unspecified congestive heart failure type Congestive heart failure chronicity: unspecified congestive heart failure chronicity Qualified Code(s): I50.9 - Heart failure, unspecified (2) Dyspnea Code(s): R06.00 - DYSPNEA, UNSPECIFIED Qualifiers: Dyspnea type: dyspnea on exertion Qualified Code(s): R06.09 - Other forms of dyspnea (3) HTN (hypertension) Code(s): I10 - ESSENTIAL (PRIMARY) HYPERTENSION Qualifiers: Hypertension type: essential hypertension Qualified Code(s): I10 - Essential (primary) hypertension (4) Hyperthyroidism Code(s): E05.90 - THYROTOXICOSIS, UNSP WITHOUT THYROTOXIC CRISIS OR STORM (5) New onset atrial fibrillation Code(s): I48.91 - UNSPECIFIED ATRIAL FIBRILLATION (6) Parkinson disease Code(s): G20 - PARKINSON'S DISEASE (7) Asthma Code(s): J45.909 - UNSPECIFIED ASTHMA, UNCOMPLICATED Assessment/Plan IMP DYSPNEA IMPROVING NEW ONSET AFIB CHEST PAIN ASTHMA HTN DM PULMONARY HTN TREMORS ?PARKINSONS PLAN NASAL O2 INHALED BRONCHODILATORS PREDNISONE RATE CONTROL ANTICOAGULATION DR HIGGINS Problem List - Problems (1) CHF (congestive heart failure) Code(s): I50.9 - HEART FAILURE, UNSPECIFIED Qualifiers: Congestive heart failure type: unspecified congestive heart failure type Congestive heart failure chronicity: unspecified congestive heart failure chronicity Qualified Code(s): I50.9 - Heart failure, unspecified (2) Dyspnea Code(s): R06.00 - DYSPNEA, UNSPECIFIED Qualifiers: Dyspnea type: dyspnea on exertion Qualified Code(s): R06.09 - Other forms of dyspnea (3) HTN (hypertension) Code(s): I10 - ESSENTIAL (PRIMARY) HYPERTENSION Qualifiers: Hypertension type: essential hypertension Qualified Code(s): I10 - Essential (primary) hypertension (4) Hyperthyroidism Code(s): E05.90 - THYROTOXICOSIS, UNSP WITHOUT THYROTOXIC CRISIS OR STORM (5) New onset atrial fibrillation Code(s): I48.91 - UNSPECIFIED ATRIAL FIBRILLATION (6) Parkinson disease Code(s): G20 - PARKINSON'S DISEASE (7) Asthma Code(s): J45.909 - UNSPECIFIED ASTHMA, UNCOMPLICATED
[2017-04-12] MEDS ORDERED: guaiFENesin/D-METHORPHAN HB 10 ML UNIT-DOSE CUPS PO PRN (12:55)
--- NOTE | 2017-04-12 13:10 | PN ---
Progress Note, Physician Chief Complaint: Appears comfortable Heart rate better controlled Not in distress History of Present Illness: Patient was seen and examined. Awake and alert. Chart was reviewed Denies chest pain, SOB or palpitations Remains in AF with appropriate ventricular response - Current Medication List Current Medications: Active Medications Acetaminophen (Tylenol -) 650 mg PO Q6H PRN PRN Reason: FEVER OR PAIN Last Admin: 04/12/17 09:10 Dose: 650 mg Albuterol/Ipratropium (Duoneb -) 1 amp NEB Q4HWA [facility] Last Admin: 04/12/17 10:34 Dose: 1 amp Apixaban (Eliquis -) 5 mg PO BID [facility] Last Admin: 04/12/17 09:10 Dose: 5 mg Cephalexin HCl (Keflex -) 500 mg PO BID [facility] Last Admin: 04/12/17 09:11 Dose: 500 mg Docusate Sodium (Colace -) 100 mg PO BID [facility] Last Admin: 04/12/17 09:12 Dose: 100 mg Furosemide (Lasix Injection -) 40 mg IVPUSH BID@0600,1400 [facility] Last Admin: 04/12/17 06:25 Dose: 40 mg Guaifenesin (Robitussin Dm -) 10 ml PO Q6H PRN PRN Reason: COUGH Latanoprost (Xalatan 0.005% Eye Drops -) 1 drop OU HS [facility] Last Admin: 04/11/17 22:12 Dose: 1 drop Loratadine (Claritin -) 10 mg PO DAILY [facility] Last Admin: 04/12/17 09:10 Dose: 10 mg Methimazole (Tapazole -) 10 mg PO DAILY [facility] Last Admin: 04/12/17 09:11 Dose: 10 mg Metoprolol Tartrate (Lopressor -) 50 mg PO BID [facility] Last Admin: 04/12/17 09:10 Dose: 50 mg Miconazole Nitrate (Monistat-7 Vaginal Suppository -) 100 mg PV [facility] Stop: 04/15/17 22:01 Last Admin: 04/11/17 22:12 Dose: 100 mg Montelukast Sodium (Singulair -) 10 mg PO HS [facility] Last Admin: 04/11/17 22:12 Dose: 10 mg Nystatin (Mycostatin Cream -) 1 applic TP BID [facility] Last Admin: 04/12/17 09:11 Dose: 1 applic Polyethylene Glycol (Miralax (For Daily Use) -) 17 gm PO DAILY [facility] Last Admin: 04/12/17 09:11 Dose: Not Given Prednisone (Deltasone -) 50 mg PO DAILY [facility] Last Admin: 04/12/17 09:11 Dose: 50 mg Primidone (Mysoline -) 50 mg PO DAILY [facility] Last Admin: 04/12/17 09:12 Dose: 50 mg Ramipril (Altace -) 2.5 mg PO DAILY [facility] Last Admin: 04/12/17 09:10 Dose: 2.5 mg Ranitidine HCl (Zantac -) 150 mg PO BID [facility] Last Admin: 04/12/17 09:10 Dose: 150 mg - Objective Vital Signs: Vital Signs Temperature 98.4 F 04/12/17 07:46 Pulse Rate 85 04/12/17 07:46 Respiratory Rate 20 04/12/17 08:00 Blood Pressure 134/94 04/12/17 07:46 O2 Sat by Pulse Oximetry (%) 96 04/12/17 08:00 Neck: Yes: Supple Cardiovascular: Yes: Pulse Irregular, S1, S2 Respiratory: Yes: Diminished, Wheezes (Mild expiratory) Gastrointestinal: Yes: Normal Bowel Sounds, Soft, Abdomen, Obese. No: Tenderness Edema: No Additional Findings/Remarks: - Review of Systems Constitutional: denies: Chills, Fever Cardiovascular: reports: Chest Pain, Shortness of Breath. denies: Palpitations Respiratory: reports: SOB, SOB on Exertion. denies: Cough, Hemoptysis, Orthopnea, PND Gastrointestinal: denies: Abdominal Pain, Constipation, Diarrhea, Melena, Nausea , Rectal Bleeding, Vomiting Genitourinary: denies: Dysuria Musculoskeletal: denies: Joint Pain Neurological: reports: Tremors. denies: Dizziness, Headache, Seizure, Syncope Labs: CBC, BMP 04/12/17 05:40 04/12/17 05:40 INR, PTT INR 1.10 (0.82-1.09) 04/08/17 23:44 Problem List - Problems (1) CHF (congestive heart failure) Code(s): I50.9 - HEART FAILURE, UNSPECIFIED Qualifiers: Congestive heart failure type: unspecified congestive heart failure type Congestive heart failure chronicity: unspecified congestive heart failure chronicity Qualified Code(s): I50.9 - Heart failure, unspecified (2) Dyspnea Code(s): R06.00 - DYSPNEA, UNSPECIFIED Qualifiers: Dyspnea type: dyspnea on exertion Qualified Code(s): R06.09 - Other forms of dyspnea (3) HTN (hypertension) Code(s): I10 - ESSENTIAL (PRIMARY) HYPERTENSION Qualifiers: Hypertension type: essential hypertension Qualified Code(s): I10 - Essential (primary) hypertension (4) Hyperthyroidism Code(s): E05.90 - THYROTOXICOSIS, UNSP WITHOUT THYROTOXIC CRISIS OR STORM (5) New onset atrial fibrillation Code(s): I48.91 - UNSPECIFIED ATRIAL FIBRILLATION (6) Parkinson disease Code(s): G20 - PARKINSON'S DISEASE Assessment/Plan 1. Atrial fibrillation - duration unknown [id number] of 6+, rate improved 2. HTN/HCVD 3. Borderline diabetes mellitus 4. Dyspnea - possible acute on chronic LV failure - diastolic failure 5. Possible early Parkinson's with tremors 6. Hyperthyroidism PLAN: 1. Continue Metoprolol 50 mg BID as tolerated 3. Transthoracic echocardiography revealed normal left ventricular systolic function, mild to moderate TR and AR, mild pulmonary HTN and small pericardial effusion 4. Continue Ramipril 5. Currently on IV diuretics as tolerated. Consider switching it to PO. Check I/ Os and daily weight 6. Further rhythm management to be considered - synchronized cardioversion with DON is to be considered, but can be schedules as outpatient Further plans are to follow Johann Cowan MD
--- NOTE | 2017-04-12 17:54 | PN ---
Physical Exam: SUBJECTIVE: Patient seen and examined. Ambulating in room, denies chest pain or shortness of breath. Patient states she is having productive coughing with some green sputum. OBJECTIVE: Lungs clear to auscultation Send sputum culture On Prednisone taper discharge once cleared by cardiology Vital Signs Period Temp Pulse Resp BP Sys/Ugarte Pulse Ox Last 24 Hr 98.4 F-99.2 F 77-85 20-20 103-134/64-94 94-96 GENERAL: The patient is awake, alert, and fully oriented, upper extremities, facial tremors @ rest HEAD: Normal with no signs of trauma. EYES: PERRL, extraocular movements intact, sclera anicteric, conjunctiva clear. No ptosis. ENT: Ears normal, nares patent, oropharynx clear without exudates, moist mucous membranes. NECK: Trachea midline, full range of motion, supple. LUNGS: Mild wheezing on bilateral upper lobes, tolerating room air HEART:Atrial fibrillation in 90s ABDOMEN: Soft, nontender, nondistended, normoactive bowel sounds, no guarding, no rebound, no hepatosplenomegaly, no masses. EXTREMITIES: trace mild edema on bilateral lower ext. NEUROLOGICAL: parkinsons?-patient denies, upper body tremors at rest SKIN: Warm, dry, normal turgor, no rashes or lesions noted Laboratory Results - last 24 hr 04/12/17 04/12/17 05:40 05:40 WBC 10.0 RBC 4.48 Hgb 12.3 Hct 37.8 MCV 84.5 MCHC 32.6 RDW 14.6 Plt Count 238 MPV 7.9 Neutrophils % 69.3 Lymphocytes % 21.6 D Monocytes % 9.1 Eosinophils % 0.0 Basophils % 0.0 Sodium 143 Potassium 4.5 Chloride 99 Carbon Dioxide 34 H Anion Gap 10 BUN 33 H Creatinine 0.9 Creat Clearance w eGFR > 60 Random Glucose 87 D Calcium 8.8 Total Bilirubin 0.3 AST 11 L D ALT 18 Alkaline Phosphatase 79 Total Protein 7.0 Albumin 3.4 Active Medications Generic Name Dose Route Start Last Admin Trade Name Freq PRN Reason Stop Dose Admin Acetaminophen 650 mg 04/09/17 18:49 04/12/17 09:10 Tylenol - PO 650 mg Q6H PRN Administration FEVER OR PAIN Albuterol/Ipratropium 1 amp 04/09/17 11:00 04/12/17 17:33 Duoneb - NEB 1 amp Q4HWA SRIKANTH Administration Apixaban 5 mg 04/09/17 13:15 04/12/17 09:10 Eliquis - PO 5 mg BID SRIKANTH Administration Cephalexin HCl 500 mg 04/10/17 22:00 04/12/17 09:11 Keflex - PO 500 mg BID SRIKANTH Administration Docusate Sodium 100 mg 04/10/17 22:00 04/12/17 09:12 Colace - PO 100 mg BID SRIKANTH Administration Furosemide 40 mg 04/09/17 14:00 04/12/17 15:10 Lasix Injection - IVPUSH 40 mg BID@0600,1400 SRIKANTH Administration Guaifenesin 10 ml 04/12/17 12:55 04/12/17 15:10 Robitussin Dm - PO 10 ml Q6H PRN Administration COUGH Latanoprost 1 drop 04/09/17 22:00 04/11/17 22:12 Xalatan 0.005% Eye Drops - OU 1 drop HS SRIKANTH Administration Loratadine 10 mg 04/10/17 22:00 04/12/17 09:10 Claritin - PO 10 mg DAILY SRIKANTH Administration Methimazole 10 mg 04/10/17 10:00 04/12/17 09:11 Tapazole - PO 10 mg DAILY SRIKANTH Administration Metoprolol Tartrate 50 mg 04/10/17 10:00 04/12/17 09:10 Lopressor - PO 50 mg BID SRIKANTH Administration Miconazole Nitrate 100 mg 04/09/17 22:00 04/11/17 22:12 Monistat-7 Vaginal Suppository - PV 04/15/17 22:01 100 mg HS SRIKANTH Administration Montelukast Sodium 10 mg 04/09/17 22:00 04/11/17 22:12 Singulair - PO 10 mg HS SRIKANTH Administration Nystatin 1 applic 04/10/17 22:00 04/12/17 09:11 Mycostatin Cream - TP 1 applic BID SRIKANTH Administration Polyethylene Glycol 17 gm 04/10/17 17:00 04/12/17 09:11 Miralax (For Daily Use) - PO Not Given DAILY SRIKANTH Prednisone 50 mg 04/12/17 10:00 04/12/17 09:11 Deltasone - PO 50 mg DAILY SRIKANTH Administration Primidone 50 mg 04/09/17 18:30 04/12/17 09:12 Mysoline - PO 50 mg DAILY SRIKANTH Administration Ramipril 2.5 mg 04/09/17 13:15 04/12/17 09:10 Altace - PO 2.5 mg DAILY SRIKANTH Administration Ranitidine HCl 150 mg 04/09/17 22:00 04/12/17 09:10 Zantac - PO 150 mg BID SRIKANTH Administration ASSESSMENT/PLAN: Patient is a 81 year old female with a significant past medical history of hyperthyroidism, hypertension, borderline DM, chronic bronchial asthma, 1st stage parkinsons disease and glaucoma. She presents to the ED with diffuse anterior chest pain radiating to back, shortness of breath and dyspnea with exertion. Cardiology: Acute CHF likely induced by new onset atrial fibrillation Assessment/Plan: Dyspnea improving on room air, lungs clear/diminished, no wheezing on my exam On Lasix 40mg IV BID Metoprolol 50mg BID Ramipril 2.5 PO daily Telemonitoring shows atrial afib 90s Anticoagulation with Eliquis 5mg BID Daily weight, strict intake and output Patient lives alone, hx of falls, but no recent falls as per family CTA negative for PE Echo reviewed discharge once cleared by cardiology Endocrine: Assessment/Plan: Hyperthyroidism On Tapazole 10mg daily HmgA1c 5.9 - boderline diabetes Monitor serum blood glucose with a.m. labs while on steroids Pulmonary Bronchial asthma - acute on chronic Assessment/Plan: improvement of scattered wheezing Duonebs On Prednisone taper Will add Claritin Pulmonary following Awaiting sputum culture Neurology: Parkinsons disease - chronic Assessment/Plan: On Primidone 50mg po daily : Urinary tract infection - acute Assessment/Plan: Patient states she has burning on urination On Keflex 500mg BID (day 3) F.E.N. Fluids: tolerating PO Electrolytes: monitor Nutrition:low sodium diet Prophylaxis: DVT: Eliquis 5mg PO daily GI; Protonix 40mg daily Dispo: Telemonitoring, Requires inpatient hospitalization. full code. Visit type - Emergency Visit Emergency Visit: Yes ED Registration Date: 04/09/17 Care time: The patient presented to the Emergency Department on the above date and was hospitalized for further evaluation of their emergent condition. - New Patient This patient is new to me today: No - Critical Care Critical Care patient: No - Discharge Referral Referred to [facility] No
[2017-04-12] MEDS: MICONAZOLE NITRATE 100 MG SUPP SUPP.VAG PV SCH (22:20)
[2017-04-12] MEDS: MONTELUKAST NA 10 MG TABLET PO SCH (22:21)
[2017-04-12] MEDS: LATANOPROST 0.005% OPHTH SOLN 2.5ML BOTTLE OU SCH (22:21)
[2017-04-13] MEDS: ALBUTEROL SO4 2.5/IPRATROPIUM 0.5 INH SOL 3 ML VIAL.NEB. NEB SCH ×3 (06:35→14:16)
[2017-04-13] MEDS: FUROSEMIDE 40 MG/4 ML INJECTABLE VIAL IVPUSH SCH (07:09)
[2017-04-13 07:35] LABS: BASOPHIL 0.1 % (0-2.0); EOSINOPHIL 0.1 % (0-4.5); MCH 27.1 pg (25.7-33.7); MCHC 32.3 g/dl (32.0-36.0); MEAN CELL VOLUME 83.9 fl (80-96); MEAN PLT VOLUME 7.7 fl (7.5-11.1); NEUTROPHILS 55.7 % (42.8-82.8); PLATELET COUNT 229 K/MM3 (134-434); RDW 14.2 % (11.6-15.6); WHITE BLOOD COUNT 9.1 K/mm3 (4.0-10.0)
[2017-04-13 07:38] LABS: ALBUMIN 3.1 g/dl (3.4-5.0); ANION GAP 10 (8-16); CALCIUM 8.4 mg/dL (8.5-10.1); CO2 34 mmol/L (21-32); COCKROFT - GAULT 76.8825; CREATININE 0.8 mg/dL (0.55-1.02); GLUCOSE,RANDOM 77 mg/dL (74-106); SGOT/AST 14 U/L (15-37); SGPT/ALT 24 U/L (12-78)
[2017-04-13 07:40] LABS: ALK PHOS 71 U/L (45-117); BILIRUBIN,TOTAL 0.4 mg/dL (0.2-1.0); TOT PROT 6.2 g/dl (6.4-8.2)
--- NOTE | 2017-04-13 09:31 | PN ---
Progress Note, Physician History of Present Illness: Dyspnea resolved, remains in rate-controlled afib. - Current Medication List Current Medications: Active Medications Acetaminophen (Tylenol -) 650 mg PO Q6H PRN PRN Reason: FEVER OR PAIN Last Admin: 04/12/17 09:10 Dose: 650 mg Albuterol/Ipratropium (Duoneb -) 1 amp NEB Q4HWA [facility] Last Admin: 04/13/17 06:35 Dose: 1 amp Apixaban (Eliquis -) 5 mg PO BID [facility] Last Admin: 04/12/17 22:18 Dose: 5 mg Cephalexin HCl (Keflex -) 500 mg PO BID [facility] Last Admin: 04/12/17 22:20 Dose: 500 mg Docusate Sodium (Colace -) 100 mg PO BID [facility] Last Admin: 04/12/17 22:18 Dose: 100 mg Furosemide (Lasix Injection -) 40 mg IVPUSH BID@0600,1400 [facility] Last Admin: 04/12/17 15:10 Dose: 40 mg Guaifenesin (Robitussin Dm -) 10 ml PO Q6H PRN PRN Reason: COUGH Last Admin: 04/12/17 15:10 Dose: 10 ml Latanoprost (Xalatan 0.005% Eye Drops -) 1 drop OU HS [facility] Last Admin: 04/12/17 22:21 Dose: 1 drop Loratadine (Claritin -) 10 mg PO DAILY [facility] Last Admin: 04/12/17 09:10 Dose: 10 mg Methimazole (Tapazole -) 10 mg PO DAILY [facility] Last Admin: 04/12/17 09:11 Dose: 10 mg Metoprolol Tartrate (Lopressor -) 50 mg PO BID [facility] Last Admin: 04/12/17 22:19 Dose: 50 mg Miconazole Nitrate (Monistat-7 Vaginal Suppository -) 100 mg PV HS [facility] Stop: 04/15/17 22:01 Last Admin: 04/12/17 22:20 Dose: 100 mg Montelukast Sodium (Singulair -) 10 mg PO HS [facility] Last Admin: 04/12/17 22:21 Dose: 10 mg Nystatin (Mycostatin Cream -) 1 applic TP BID [facility] Last Admin: 04/12/17 22:20 Dose: 1 applic Polyethylene Glycol (Miralax (For Daily Use) -) 17 gm PO DAILY [facility] Last Admin: 04/12/17 09:11 Dose: Not Given Prednisone (Deltasone -) 40 mg PO DAILY [facility] Primidone (Mysoline -) 50 mg PO DAILY [facility] Last Admin: 04/12/17 09:12 Dose: 50 mg Ramipril (Altace -) 2.5 mg PO DAILY [facility] Last Admin: 04/12/17 09:10 Dose: 2.5 mg Ranitidine HCl (Zantac -) 150 mg PO BID [facility] Last Admin: 04/12/17 22:21 Dose: 150 mg - Objective Vital Signs: Vital Signs Temperature 98.3 F 04/13/17 08:06 Pulse Rate 106 H 04/13/17 08:06 Respiratory Rate 20 04/13/17 08:06 Blood Pressure 109/65 04/13/17 08:06 O2 Sat by Pulse Oximetry (%) 99 04/12/17 21:00 Constitutional: Yes: No Distress, Calm Neck: Yes: Supple Cardiovascular: Yes: Pulse Irregular Respiratory: Yes: Regular, Diminished Gastrointestinal: Yes: Normal Bowel Sounds, Soft, Abdomen, Obese Edema: No Labs: CBC, BMP 04/13/17 05:35 04/13/17 05:35 INR, PTT INR 1.10 (0.82-1.09) 04/08/17 23:44 Problem List - Problems (1) Dyspnea Code(s): R06.00 - DYSPNEA, UNSPECIFIED Qualifiers: Dyspnea type: dyspnea on exertion Qualified Code(s): R06.09 - Other forms of dyspnea (2) HTN (hypertension) Code(s): I10 - ESSENTIAL (PRIMARY) HYPERTENSION Qualifiers: Hypertension type: essential hypertension Qualified Code(s): I10 - Essential (primary) hypertension (3) Hyperthyroidism Code(s): E05.90 - THYROTOXICOSIS, UNSP WITHOUT THYROTOXIC CRISIS OR STORM (4) New onset atrial fibrillation Code(s): I48.91 - UNSPECIFIED ATRIAL FIBRILLATION (5) Parkinson disease Code(s): G20 - PARKINSON'S DISEASE (6) Acute on chronic diastolic (congestive) heart failure Code(s): I50.33 - ACUTE ON CHRONIC DIASTOLIC (CONGESTIVE) HEART FAILURE Assessment/Plan 04/11/2017 Echo: Normal LV size and fxn, mild-mod TR, mild AR, small pericardial effusion 1. Atrial fibrillation - duration unknown [id number] of 6+, rate improved 2. HTN/HCVD 3. Borderline diabetes mellitus 4. Dyspnea referable to acute on chronic LV diastolic failure resolved 5. Possible early Parkinson's with tremors 6. Hyperthyroidism PLAN: 1. Continue Metoprolol 50 mg BID as tolerated 2. Continue Ramipril 2.5 qd, Eliquis 5 bid 3. D/c Lasix 4. BD, steroid taper with GI protection, O2 as needed, d/c planning 5. Further rhythm management to be considered - synchronized cardioversion with DON is to be considered, but can be scheduled as outpatient
[2017-04-13] MEDS ORDERED: predniSONE 20 MG TABLET (UD) PO SCH (10:00)
[2017-04-13] MEDS: LORATADINE 10 MG TABLET PO SCH (11:04)
[2017-04-13] MEDS: APIXABAN 5 MG TABLET PO SCH (11:05)
[2017-04-13] MEDS: DOCUSATE SODIUM 100 MG CAPSULE (FP) PO SCH (11:05)
[2017-04-13] MEDS: RAMIPRIL 2.5 MG CAPSULE (FP) PO SCH (11:05)
[2017-04-13] MEDS: RANITIDINE HCL 150 MG TABLET (FP) PO SCH (11:06)
[2017-04-13] MEDS: CEPHALEXIN MONOHYDRATE 500 MG CAPSULE (UD) PO SCH (11:06)
[2017-04-13] MEDS: METOPROLOL TARTRATE 50 MG TABLET (FP) PO SCH (11:06)
[2017-04-13] MEDS: METHIMAZOLE 10 MG TABLET (FP) PO SCH (11:07)
--- NOTE | 2017-04-13 11:42 | PN ---
Progress Note, Physician History of Present Illness: pulmonary alert,feeling better,less dyspneic,less cough - Current Medication List Current Medications: Active Medications Acetaminophen (Tylenol -) 650 mg PO Q6H PRN PRN Reason: FEVER OR PAIN Last Admin: 04/12/17 09:10 Dose: 650 mg Albuterol/Ipratropium (Duoneb -) 1 amp NEB Q4HWA [facility] Last Admin: 04/13/17 09:43 Dose: 1 amp Apixaban (Eliquis -) 5 mg PO BID [facility] Last Admin: 04/13/17 11:05 Dose: 5 mg Cephalexin HCl (Keflex -) 500 mg PO BID [facility] Last Admin: 04/13/17 11:06 Dose: 500 mg Docusate Sodium (Colace -) 100 mg PO BID [facility] Last Admin: 04/13/17 11:05 Dose: 100 mg Furosemide (Lasix Injection -) 40 mg IVPUSH BID@0600,1400 [facility] Stop: 04/13/17 12:00 Last Admin: 04/13/17 07:09 Dose: 40 mg Guaifenesin (Robitussin Dm -) 10 ml PO Q6H PRN PRN Reason: COUGH Last Admin: 04/12/17 15:10 Dose: 10 ml Latanoprost (Xalatan 0.005% Eye Drops -) 1 drop OU HS [facility] Last Admin: 04/12/17 22:21 Dose: 1 drop Loratadine (Claritin -) 10 mg PO DAILY [facility] Last Admin: 04/13/17 11:04 Dose: 10 mg Methimazole (Tapazole -) 10 mg PO DAILY [facility] Last Admin: 04/13/17 11:07 Dose: 10 mg Metoprolol Tartrate (Lopressor -) 50 mg PO BID [facility] Last Admin: 04/13/17 11:06 Dose: 50 mg Miconazole Nitrate (Monistat-7 Vaginal Suppository -) 100 mg PV HS [facility] Stop: 04/15/17 22:01 Last Admin: 04/12/17 22:20 Dose: 100 mg Montelukast Sodium (Singulair -) 10 mg PO HS [facility] Last Admin: 04/12/17 22:21 Dose: 10 mg Nystatin (Mycostatin Cream -) 1 applic TP BID [facility] Last Admin: 04/12/17 22:20 Dose: 1 applic Polyethylene Glycol (Miralax (For Daily Use) -) 17 gm PO DAILY [facility] Last Admin: 04/12/17 09:11 Dose: Not Given Prednisone (Deltasone -) 40 mg PO DAILY [facility] Last Admin: 04/13/17 11:04 Dose: 40 mg Primidone (Mysoline -) 50 mg PO DAILY [facility] Last Admin: 04/12/17 09:12 Dose: 50 mg Ramipril (Altace -) 2.5 mg PO DAILY [facility] Last Admin: 04/13/17 11:05 Dose: 2.5 mg Ranitidine HCl (Zantac -) 150 mg PO BID [facility] Last Admin: 04/13/17 11:06 Dose: 150 mg - Objective Vital Signs: Vital Signs Temperature 98.3 F 04/13/17 08:06 Pulse Rate 106 H 04/13/17 08:06 Respiratory Rate 20 04/13/17 08:06 Blood Pressure 109/65 04/13/17 08:06 O2 Sat by Pulse Oximetry (%) 99 04/12/17 21:00 Constitutional: Yes: Well Nourished, Calm Eyes: Yes: WNL HENT: Yes: WNL Neck: Yes: WNL Cardiovascular: Yes: Pulse Irregular, S1, S2 Respiratory: Yes: Wheezes (few scattered bandar wheezes) Gastrointestinal: Yes: Normal Bowel Sounds, Soft Extremities: Yes: WNL Edema: No Labs: CBC, BMP 04/13/17 05:35 04/13/17 05:35 INR, PTT INR 1.10 (0.82-1.09) 04/08/17 23:44 Problem List - Problems (1) CHF (congestive heart failure) Code(s): I50.9 - HEART FAILURE, UNSPECIFIED Qualifiers: Congestive heart failure type: unspecified congestive heart failure type Congestive heart failure chronicity: unspecified congestive heart failure chronicity Qualified Code(s): I50.9 - Heart failure, unspecified (2) Dyspnea Code(s): R06.00 - DYSPNEA, UNSPECIFIED Qualifiers: Dyspnea type: dyspnea on exertion Qualified Code(s): R06.09 - Other forms of dyspnea (3) HTN (hypertension) Code(s): I10 - ESSENTIAL (PRIMARY) HYPERTENSION Qualifiers: Hypertension type: essential hypertension Qualified Code(s): I10 - Essential (primary) hypertension (4) Hyperthyroidism Code(s): E05.90 - THYROTOXICOSIS, UNSP WITHOUT THYROTOXIC CRISIS OR STORM (5) New onset atrial fibrillation Code(s): I48.91 - UNSPECIFIED ATRIAL FIBRILLATION (6) Parkinson disease Code(s): G20 - PARKINSON'S DISEASE (7) Asthma Code(s): J45.909 - UNSPECIFIED ASTHMA, UNCOMPLICATED Assessment/Plan IMP DYSPNEA IMPROVING NEW ONSET AFIB CHEST PAIN ASTHMA HTN DM PULMONARY HTN TREMORS ?PARKINSONS PLAN NASAL O2 INHALED BRONCHODILATORS PREDNISONE TAPER RATE CONTROL ANTICOAGULATION PFTS OUTPATIENT DR HIGGINS Problem List - Problems (1) CHF (congestive heart failure) Code(s): I50.9 - HEART FAILURE, UNSPECIFIED Qualifiers: Congestive heart failure type: unspecified congestive heart failure type Congestive heart failure chronicity: unspecified congestive heart failure chronicity Qualified Code(s): I50.9 - Heart failure, unspecified (2) Dyspnea Code(s): R06.00 - DYSPNEA, UNSPECIFIED Qualifiers: Dyspnea type: dyspnea on exertion Qualified Code(s): R06.09 - Other forms of dyspnea (3) HTN (hypertension) Code(s): I10 - ESSENTIAL (PRIMARY) HYPERTENSION Qualifiers: Hypertension type: essential hypertension Qualified Code(s): I10 - Essential (primary) hypertension (4) Hyperthyroidism Code(s): E05.90 - THYROTOXICOSIS, UNSP WITHOUT THYROTOXIC CRISIS OR STORM (5) New onset atrial fibrillation Code(s): I48.91 - UNSPECIFIED ATRIAL FIBRILLATION (6) Parkinson disease Code(s): G20 - PARKINSON'S DISEASE (7) Asthma Code(s): J45.909 - UNSPECIFIED ASTHMA, UNCOMPLICATED
[2017-04-13] MEDS ORDERED: PT OWN MED DRAWER 7, Y5N ONE (12:40)
[2017-04-13] MEDS: PRIMIDONE 50 MG TABLET PO SCH (12:49)
[2017-04-13] MEDS: NYSTATIN 100,000 UNIT/GM TOPICAL CREAM 15 GM TUBE TP SCH (12:50)
[2017-04-13] MEDS: POLYETHYLENE GLYCOL 3350 119 GM BTL PO SCH (12:58)
--- NOTE | 2017-04-13 14:47 | DS ---
Physical Exam: SUBJECTIVE: Patient seen and examined OBJECTIVE: Vital Signs Period Temp Pulse Resp BP Sys/Ugarte Pulse Ox Last 24 Hr 97.5 F-99.0 F 72-106 20-20 103-124/53-66 99 PHYSICAL EXAM GENERAL: The patient is awake, alert, and fully oriented, in no acute distress. HEAD: Normal with no signs of trauma. EYES: PERRL, extraocular movements intact, sclera anicteric, conjunctiva clear. ENT: Ears normal, nares patent, oropharynx clear without exudates, moist mucous membranes. NECK: Trachea midline, full range of motion, supple. LUNGS: Breath sounds equal, clear to auscultation bilaterally, no wheezes, no crackles, no accessory muscle use. HEART: Regular rate and rhythm, S1, S2 without murmur, rub or gallop. ABDOMEN: Soft, nontender, nondistended, normoactive bowel sounds, no guarding, no rebound, no hepatosplenomegaly, no masses. EXTREMITIES: 2+ pulses, warm, well-perfused, no edema. NEUROLOGICAL: Cranial nerves II through XII grossly intact. Normal speech, gait not observed. PSYCH: Normal mood, normal affect. SKIN: Warm, dry, normal turgor, no rashes or lesions noted. LABS Laboratory Results - last 24 hr 04/13/17 04/13/17 05:35 05:35 WBC 9.1 RBC 4.41 Hgb 12.0 Hct 37.0 MCV 83.9 MCHC 32.3 RDW 14.2 Plt Count 229 MPV 7.7 Neutrophils % 55.7 Lymphocytes % 33.9 D Monocytes % 10.2 Eosinophils % 0.1 D Basophils % 0.1 D Sodium 143 Potassium 4.4 Chloride 99 Carbon Dioxide 34 H Anion Gap 10 BUN 28 H Creatinine 0.8 Creat Clearance w eGFR > 60 Random Glucose 77 Calcium 8.4 L Total Bilirubin 0.4 D AST 14 L D ALT 24 D Alkaline Phosphatase 71 Total Protein 6.2 L Albumin 3.1 L HOSPITAL COURSE: Date of Admission:04/09/17 Date of Discharge: 04/13/17 Discharge Summary Reason For Visit: CHF,DYSPNEA, NEW ONSET A-FIB Current Active Problems Acute on chronic diastolic (congestive) heart failure (Acute) Asthma (Acute) CHF (congestive heart failure) (Acute) Dyspnea (Acute) HTN (hypertension) (Acute) Hyperthyroidism (Acute) New onset atrial fibrillation (Acute) Parkinson disease (Acute) Condition: Stable - Instructions Diet, Activity, Other Instructions: Please return to the ED for any new, persistent, or worsening symptoms. Follow up with your PCP in 1 week (referral enclosed) Take medications as directed on home medication list You will need complete 2 more days of antibiotics Complete steroid taper as directed and then follow up with Dr. Montiel, he would like to preform further respiratory tests Follow up with Dr. Samuel in 1 week for continued management and decision for DON Referrals: Fredrick Montiel MD [Staff Physician] - Efraín Fortune MD [Staff Physician] - Anthony Samuel MD [Staff Physician] - Disposition: HOME - Home Medications Comprehensive Discharge Medication List: Ambulatory Orders Acetaminophen [Pain Relief] 650 mg PO Q6H 09/13/16 Albuterol Sulfate Inhaler - [Ventolin HFA Inhaler -] 1 - 2 inh PO QID 09/13/16 Esomeprazole Magnesium [Nexium 24Hr] 40 mg PO DAILY 09/13/16 Montelukast Na [Singulair -] 10 mg PO HS 09/13/16 Alendronate Na [Fosamax (Weekly)] 70 mg PO Q7D 04/09/17 Bimatoprost [Lumigan] 1 drop IO DAILY 04/09/17 Brimonidine Tartrate/Timolol [Combigan 0.2%-0.5% Eye Drops] 5 ml OP DAILY Methimazole [Tapazole -] 10 mg PO DAILY 04/09/17 Primidone 50 mg PO DAILY 04/09/17 Ranitidine [Zantac -] 150 mg PO BID 04/09/17 Apixaban [Eliquis -] 5 mg PO BID #60 tab 04/13/17 Cephalexin Monohydrate [Keflex -] 500 mg PO BID #4 capsule 04/13/17 Metoprolol Tartrate [Lopressor -] 50 mg PO BID #60 tablet 04/13/17 Prednisone 10 mg PO ASDIR #30 tablet 04/13/17 Ramipril [Altace] 2.5 mg PO DAILY #30 tab 04/13/17 - Discharge Referral Referred to [facility] No
[2017-04-13 15:32] VITALS: BP 109/61; PULSE 104; TEMP 98.6
[2017-04-13] MEDS ORDERED: PRIMIDONE 50 MG TABLET PO SCH (22:00)
== END 2017-04-13 18:25 | disposition home or self-care (01) | DRG 308 ==
LOC: SUPCPDRO 22:23 → JER 22:23 → JERBED 04-09 01:53 → UNDOADMIN 04-09 02:00 → JERBED 04-09 02:00 → J4W 04-09 03:45
PROVIDERS: ADMIT Internal Medicine; ATTEND Nurse Practitioner Acute Care
DX: I48.91 Unspecified atrial fibrillation (principal); I50.33 Acute on chronic diastolic (congestive) heart failure; G20 Parkinson's disease; H40.9 Unspecified glaucoma; R60.0 Localized edema; K21.9 Gastro-esophageal reflux disease without esophagitis; I11.0 Hypertensive heart disease with heart failure; R07.9 Chest pain, unspecified; J45.909 Unspecified asthma, uncomplicated; E11.9 Type 2 diabetes mellitus without complications; E05.90 Thyrotoxicosis, unspecified without thyrotoxic crisis or storm; I45.10 Unspecified right bundle-branch block; E66.09 Other obesity due to excess calories; Z68.38 Body mass index [BMI] 38.0-38.9, adult; Z71.3 Dietary counseling and surveillance
CPT/HCPCS: 36415; 71010-TC; 71275-TC; 80048; 80053; 80061; 81003; 81015; 82550; 83036; 83721; 83735; 83880; 84100; 84439; 84443; 84484; 85025; 85610; 85730; 87070; 87086; 87205; 93005; 93010; 93306-TC; 94640; 97116-GP; 97161-GP; 99285-25

== ENCOUNTER 2017-07-04 12:23 | Observation (INO) | payer OTHER ==
--- NOTE | 2017-07-04 12:47 | PDOC ---
History of Present Illness - General Chief Complaint: Pain, Acute Stated Complaint: BACK PAIN Time Seen by Provider: 07/04/17 12:46 History Source: Patient Exam Limitations: Language Barrier - History of Present Illness Initial Comments: 07/04/17 14:22 81F with pmh of HTN, Diastolic CHF, pericardial effusion, AFIB on Eliquis early DM2, hyperthyroidism (untreated) parkinsonism (untreated - doesn't like side- effects), asthma and obesity presenting for diffuse back pain radiating to the chest, with increased pain on inspiration, exertional dyspnea and right leg pain for the past 1.5 week.No Pedal edema. She also reports episodes of coughing with clear phlegm, no hemoptysis. Patient was seen and admitted in this hospital on 04/09/17 for new-onset acute CHF reporting the exact same symptoms she currently has. She was found to have acute CHF small pericardial effusion, negative PE on CTA and positive A-fib with [id number] of 6 subsequently treated with Eliquis and lasix. Patient currently lives alone but has an aide 8h/day. Wishes to travel next week. Patient currently on Lisinopril. 07/04/17 20:32 Past History - Past Medical History Allergies/Adverse Reactions: Allergies Allergy/AdvReac Type Severity Reaction Status Date / Time No Known Allergies Allergy Verified 07/04/17 12:30 Home Medications: Ambulatory Orders Acetaminophen [Pain Relief] 650 mg PO Q6H 09/13/16 Albuterol Sulfate Inhaler - [Ventolin HFA Inhaler -] 1 - 2 inh PO QID 09/13/16 Montelukast Na [Singulair -] 10 mg PO HS 09/13/16 Bimatoprost [Lumigan] 1 drop IO DAILY 04/09/17 Brimonidine Tartrate/Timolol [Combigan 0.2%-0.5% Eye Drops] 5 ml OP DAILY Apixaban [Eliquis -] 5 mg PO BID #60 tab 04/13/17 Metoprolol Tartrate [Lopressor -] 50 mg PO BID #60 tablet 04/13/17 Lisinopril [Zestril] 2.5 mg PO DAILY 07/04/17 Omeprazole 40 mg PO DAILY 07/04/17 Asthma: Yes Cardiac Disorders: Yes (A-FIB) GI Disorders: Yes (gerd) HTN: Yes Thyroid Disease: Yes - Psycho/Social/Smoking Cessation Hx Anxiety: No Suicidal Ideation: No Smoking History: Never smoked Have you smoked in the past 12 months: No Hx Alcohol Use: No Drug/Substance Use Hx: No Substance Use Type: None Review of Systems - Review of Systems Constitutional: Yes: See HPI, Loss of Appetite HEENTM: No: Symptoms Reported Respiratory: Yes: See HPI Cardiac (ROS): Yes: See HPI ABD/GI: No: Symptoms Reported : No: Symptoms Reported Musculoskeletal: Yes: See HPI *Physical Exam - Vital Signs Last Vital Signs Temp Pulse Resp BP Pulse Ox 98.6 F 69 16 141/77 98 07/04/17 12:26 07/04/17 12:26 07/04/17 12:26 07/04/17 12:26 07/04/17 12:26 - Physical Exam General Appearance: Yes: Obese, Other (constant tremors). No: Apparent Distress HEENT: positive: EOMI, ARDEN Neck: positive: Trachea midline. negative: Tender Respiratory/Chest: positive: Chest Tender (increased) Cardiovascular: positive: Irregularly Irregular. negative: Tachycardia Vascular Pulses: Dorsalis-Pedis (R): 2+, Doralis-Pedis (L): 2+ Integumentary: positive: Normal Color, Cold. negative: Cyanotic, Swelling Neurologic: positive: Fully Oriented, Alert, Normal Mood/Affect, Other (tremors) ED Treatment Course - LABORATORY CBC & Chemistry Diagram: 07/04/17 13:45 07/04/17 13:45 Medical Decision Making - Medical Decision Making 07/04/17 15:00 81F with pmh of CHF, A-fib, HTN and parkinson's presents with diffuse, radiating chest and back pain, sob on exertion and leg pain for the past week and a half. PE Well's score 6, Earlham's: 8 Both moderate risk for PE [id number] score :6 CHF exacerbation VS PE Due to similarity of symptoms from last visit, patient evaluated for CHF with CXR: pending BNP pending EKG: unchanged since last visit (afib with RBBB) Bedside U/S uncertain CTA on hold for now. CBC/CMP negative. 07/04/17 15:33 CXR: no evidence of CHF. pneumonia, effusion or active pulmonary disease. 07/04/17 20:34 "CTA negative for PE. b/l groundglass opacities likely on the basis of atelectasic changes. infiltrates cannot be entirely excluded." Patient receiving Lasix 40mg to be admitted on Tele-obs. pcp tan 07/04/17 20:35 07/04/17 20:44 *DC/Admit/Observation/Transfer Diagnosis at time of Disposition: Atypical angina - Discharge Dispostion Disposition: HOME Admit: Yes - Referrals Referrals: Efraín Fortune MD [Primary Care Provider] - Kane Diaz DO [Staff Physician] -
[2017-07-04 14:07] LABS: BASOPHIL 0.6 % (0-2.0); MCHC 31.9 g/dl (32.0-36.0); MEAN CELL VOLUME 84.5 fl (80-96); MEAN PLT VOLUME 8.2 fl (7.5-11.1); NEUTROPHILS 48.9 % (42.8-82.8); PLATELET COUNT 214 K/MM3 (134-434); RDW 14.9 % (11.6-15.6); WHITE BLOOD COUNT 5.4 K/mm3 (4.0-10.0)
[2017-07-04 14:19] LABS: ALBUMIN 3.5 g/dl (3.4-5.0); ALK PHOS 79 U/L (45-117); ANION GAP 6 (8-16); BILIRUBIN,TOTAL 0.7 mg/dL (0.2-1.0); CALCIUM 8.6 mg/dL (8.5-10.1); CO2 30 mmol/L (21-32); CREATININE 0.8 mg/dL (0.55-1.02); GLUCOSE,RANDOM 118 mg/dL (74-106); SGOT/AST 17 U/L (15-37); SGPT/ALT 24 U/L (12-78); TOT PROT 6.5 g/dl (6.4-8.2)
[2017-07-04 14:34] LABS: INR 1.31 (0.82-1.09); PROTHROMBIN TIME (PATIENT) 14.5 SEC (9.98-11.88)
[2017-07-04 17:48] LABS: THYROID STIMULATING HORMONE 0.06 uIU/ml (0.358-3.74)
[2017-07-04] MEDS ORDERED: FUROSEMIDE 40 MG/4 ML INJECTABLE VIAL IVPUSH ONE (20:31)
[2017-07-04] MEDS ORDERED: FUROSEMIDE 40 MG/4 ML INJECTABLE VIAL ONE (21:05)
--- NOTE | 2017-07-04 21:07 | PN ---
Teaching Attending Note Name of Resident: Laney Jimenez ATTENDING PHYSICIAN STATEMENT I saw and evaluated the patient. I reviewed the resident's note and discussed the case with the resident. I agree with the resident's findings and plan as documented. SUBJECTIVE: 81 F with pmhx of HTN, Diastolic HF, Afib (on Eliquis), DM II, small pericardial effusion, hyperthyriodism, Parkinson's (not on any meds), asthma, who presents with back pain radiating to chest. Pain is increased on inspiration. Also noted pain in R. leg for 1.5 weeks and dyspnea on exertion. Notes she also had cough with no mucous production. Recent admit on 04/06 for CHF with same sx. OBJECTIVE: Physical: VS: Vital Signs Period Temp Pulse Resp BP Sys/Ugarte Pulse Ox Last 24 Hr 97.9 F-98.6 F 62-74 16-16 135-141/70-77 95-99 GEN: NAD, Resting in bed, able to speak full sentences HEENT: Head Tremor, PERRL, Sclera-Anicter, THroat without erythema or exudates CARD: IRRR S1, S2 RESP: Decreased BS at bases ABD: BS X4, NTD to palpation EXT: - C/C, trace edema RLE CBCD WBC 5.4 K/mm3 (4.0-10.0) D 07/04/17 13:45 RBC 4.45 M/mm3 (3.60-5.2) 07/04/17 13:45 Hgb 12.0 GM/dL (10.7-15.3) 07/04/17 13:45 Hct 37.6 % (32.4-45.2) 07/04/17 13:45 MCV 84.5 fl (80-96) 07/04/17 13:45 MCHC 31.9 g/dl (32.0-36.0) L 07/04/17 13:45 RDW 14.9 % (11.6-15.6) 07/04/17 13:45 Plt Count 214 K/MM3 (134-434) 07/04/17 13:45 MPV 8.2 fl (7.5-11.1) 07/04/17 13:45 CMP Sodium 141 mmol/L (136-145) 07/04/17 13:45 Potassium 5.1 mmol/L (3.5-5.1) 07/04/17 13:45 Chloride 105 mmol/L (98-107) 07/04/17 13:45 Carbon Dioxide 30 mmol/L (21-32) 07/04/17 13:45 Anion Gap 6 (8-16) L 07/04/17 13:45 BUN 12 mg/dL (7-18) D 07/04/17 13:45 Creatinine 0.8 mg/dL (0.55-1.02) 07/04/17 13:45 Creat Clearance w eGFR > 60 (>60) 07/04/17 13:45 Random Glucose 118 mg/dL (74-106) H D 07/04/17 13:45 Calcium 8.6 mg/dL (8.5-10.1) 07/04/17 13:45 Total Bilirubin 0.7 mg/dL (0.2-1.0) D 07/04/17 13:45 AST 17 U/L (15-37) D 07/04/17 13:45 ALT 24 U/L (12-78) 07/04/17 13:45 Alkaline Phosphatase 79 U/L (45-117) 07/04/17 13:45 Total Protein 6.5 g/dl (6.4-8.2) 07/04/17 13:45 Albumin 3.5 g/dl (3.4-5.0) 07/04/17 13:45 CTA: NO PE, Enlarged Mediastinal LN, Bilateral ground glass opacities likely atelectasism, infilterate cannot be ruled out. CXR: Negative EKG: RBBB NSR 77 Home Medications Medication Instructions Recorded Acetaminophen [Pain Relief] 650 mg PO Q6H 09/13/16 Albuterol Sulfate Inhaler - 1 - 2 inh PO QID 09/13/16 [Ventolin HFA Inhaler -] Montelukast Na [Singulair -] 10 mg PO HS 09/13/16 Bimatoprost [Lumigan] 1 drop IO DAILY 04/09/17 Brimonidine Tartrate/Timolol 5 ml OP DAILY 04/09/17 [Combigan 0.2%-0.5% Eye Drops] Apixaban [Eliquis -] 5 mg PO BID #60 tab 04/13/17 Metoprolol Tartrate [Lopressor -] 50 mg PO BID #60 tablet 04/13/17 Lisinopril [Zestril] 2.5 mg PO DAILY 07/04/17 Omeprazole 40 mg PO DAILY 07/04/17 ASSESSMENT AND PLAN: 81 F with hx. of Afib (on Eliquis), Diastolic HF, asthma, hyperthyriodism, DM, GERD who presents with back pain radiating to chest and R. Leg pain found to be in Acute on chronic HF 1.) Acute on Chronic Diastolic Heart Failure - S/P Lasix in ED - Strict I/O - Daily Weighs - NA restrict - Last Echo 04/06- EF 63%, Mod TR - Trend Trop/EKG 2.) Hyperthryiodism -C/w Tapazole - Chk. FT4 - Outpt. Endo fu for recheck of TSH 3.) A- Fib - Rate controlled - C/W Lopressor - [id number]+--> C/w ELiquis 4.) DM - FS - RAISS 5.) Asthma - C/W Home meds - NEB Prn 7.) RLE Pain/edema - Duplex 67) DVt Ppx - On Eliquis Place in Med- Tele
[2017-07-04] MEDS ORDERED: ACETAMINOPHEN 325 MG TABLET (FP) PO PRN (22:13)
[2017-07-04] MEDS ORDERED: ALBUTEROL SO4 0.083% IH SOL 2.5 MG/3 ML VIAL.NEB. NEB PRN (22:28)
[2017-07-04] MEDS: METOPROLOL TARTRATE 50 MG TABLET (FP) PO SCH (22:50)
[2017-07-04] MEDS ORDERED: METOPROLOL TARTRATE 25 MG TABLET (FP) ONE (22:50)
[2017-07-04] MEDS: APIXABAN 5 MG TABLET PO SCH (23:01)
--- NOTE | 2017-07-04 23:22 | HP ---
CHIEF COMPLAINT: back pain PCP: Surface Lay Out Technician: Dr. Samuel Visual Display Manager: Dr. Montiel HISTORY OF PRESENT ILLNESS: 81yo F with PMH of diastolic CHF, afib (on Eliquis), htn, hyperthyroidism ( untreated), asthma, DM II, parkinsonism (untreated), presents c/o back pain radiating to the chest x 10 days. Pt describes that pain starts in the back and wraps around under Right breast. Pain is constant, stabbing sensation. Rated 5/10. Pain is associated with breathing, worse with pressing on the described areas, and worse with position - lying back. Pain is not worse with eating. Pt took Ibuprofen, which only mildly relieved the pain briefly. Pt reports having to sleep on 2-3 pillows. Pt reports SOB after walking half a block with assistance. Pt reports coughing episodes productive of clear phelgm , no hemoptysis. Pt also reports Right LE pain. Pt is comfortable now and denies chest pain, tachycardia, dyspnea, SOB. Pt was admitted to hospital in March for similar symptoms: chf and new onset afib. She had a small pericardial effusion, negative pulmonary embolism on CTA. Pt was discharged with Tapazole for hyperthyroidism, but did not berry picker prescription. Pt lives alone, and has an aide 8hrs/day. Moldovan speaking, daughter present for translation. ER course was notable for: (1) 40mg Lasix injection (2) EKG revealing afib and RBBB (3) CXR, Chest CTA PAST MEDICAL HISTORY: HTN Diastolic CHF Afib DM II hyperthyroidism asthma GERD parkinson PAST SURGICAL HISTORY: hysterectomy 2/2 cancer in Social History: Smoking: never smoked, exposed to second-hand smoke from -> 2 ppd x 50 yrs Alcohol: none Drugs: none Family History: sister has new "heart problems" Allergies No Known Allergies Allergy (Verified 07/04/17 12:30) HOME MEDICATIONS: Home Medications Medication Instructions Recorded Acetaminophen [Pain Relief] 650 mg PO Q6H 09/13/16 Albuterol Sulfate Inhaler - 1 - 2 inh PO QID 09/13/16 [Ventolin HFA Inhaler -] Montelukast Na [Singulair -] 10 mg PO HS 09/13/16 Bimatoprost [Lumigan] 1 drop IO DAILY 04/09/17 Brimonidine Tartrate/Timolol 5 ml OP DAILY 04/09/17 [Combigan 0.2%-0.5% Eye Drops] Apixaban [Eliquis -] 5 mg PO BID #60 tab 04/13/17 Metoprolol Tartrate [Lopressor -] 50 mg PO BID #60 tablet 04/13/17 Lisinopril [Zestril] 2.5 mg PO DAILY 07/04/17 Omeprazole 40 mg PO DAILY 07/04/17 REVIEW OF SYSTEMS CONSTITUTIONAL: Present: loss of appetite Absent: weight change, fever, chills, diaphoresis, generalized weakness, malaise HEENT: Absent: throat pain, ear pain, eye pain, visual changes CARDIOVASCULAR: Absent: chest pain, peripheral edema, syncope RESPIRATORY: Present: cough with clear phelgm, orthopnea, dyspnea with exertion Absent: hemoptysis, shortness of breath, wheezing GASTROINTESTINAL: Present: abdominal distension Absent: abdominal pain, nausea, vomiting, diarrhea, constipation SKIN: Absent: rash, itching, pallor ENDOCRINE: Absent: unexplained weight gain, unexplained weight loss, heat intolerance, cold intolerance NEUROLOGIC: Absent: headache, focal weakness or paresthesias, dizziness, mental status changes PHYSICAL EXAMINATION Last Vital Signs Temp Pulse Resp BP Pulse Ox 97.9 F 74 16 135/70 99 07/04/17 19:55 07/04/17 19:55 07/04/17 19:55 07/04/17 19:55 07/04/17 19:55 GENERAL: Awake, alert, and fully oriented, in no acute distress. HEAD: Normal with no signs of trauma. EYES: Pupils equal, round and reactive to light, extraocular movements intact, sclera anicteric, conjunctiva clear. No lid lag. EARS, NOSE, THROAT: Moist mucous membranes. NECK: Supple without lymphadenopathy, thyromegaly, JVD, or masses. LUNGS: Breath sounds equal, clear to auscultation bilaterally. No wheezes, and no crackles. No accessory muscle use. HEART: Irregularly irregular heartbeat. No murmur, rub or gallop appreciated. ABDOMEN: Distended. Soft, nontender, normoactive bowel sounds, no guarding, no rebound, no masses. LOWER EXTREMITIES: Right LE with mild tenderness, no erythema or edema as compared to Left LE. 2+ pulses, warm, well-perfused. NEUROLOGICAL: Normal speech. PSYCHIATRIC: Cooperative. Good eye contact. Appropriate mood and affect. SKIN: Cold, dry, normal turgor, no rashes or lesions noted. Laboratory Tests 07/04/17 07/04/17 07/04/17 13:45 13:45 13:45 WBC 5.4 D RBC 4.45 Hgb 12.0 Hct 37.6 MCV 84.5 MCH 27.0 MCHC 31.9 L RDW 14.9 Plt Count 214 MPV 8.2 Neutrophils % 48.9 Lymphocytes % 37.4 Monocytes % 10.1 Eosinophils % 3.0 D Basophils % 0.6 D INR 1.31 H Sodium 141 Potassium 5.1 Chloride 105 Carbon Dioxide 30 Anion Gap 6 L BUN 12 D Creatinine 0.8 Creat Clearance w eGFR > 60 Random Glucose 118 H D Calcium 8.6 Total Bilirubin 0.7 D AST 17 D ALT 24 Alkaline Phosphatase 79 Troponin I B-Natriuretic Peptide 1841.36 H Total Protein 6.5 Albumin 3.5 TSH 0.06 L D Free T4 Ur Specific [place] 07/04/17 07/04/17 07/04/17 13:45 13:45 15:25 WBC RBC Hgb Hct MCV MCH MCHC RDW Plt Count MPV Neutrophils % Lymphocytes % Monocytes % Eosinophils % Basophils % INR Sodium Potassium Chloride Carbon Dioxide Anion Gap BUN Creatinine Creat Clearance w eGFR Random Glucose Calcium Total Bilirubin AST ALT Alkaline Phosphatase Troponin I < 0.02 B-Natriuretic Peptide Total Protein Albumin TSH Free T4 1.19 Ur Specific [place] 1.025 IMAGIN07/04/17 CXR revealed no evidence of active pulmonary disease. 07/04/17 Chest CTA negative for pulmonary embolus. Revealing enlarged mediastinal lymph nodes without gross interval change. Bilateral groundglass opacities likely atelectatic changes, though infiltrates cannot be entirely excluded. 04/11/17 Echo reveals EF of 73%. ASSESSMENT/PLAN: 81yo F with PMH of diastolic CHF, afib (on Eliquis), htn, hyperthyroidism ( untreated), asthma, DM II admitted to Telemetry for chf exacerbation. 1) Diastolic CHF exacerbation - likely acute on chronic diastolic CHF exacerbation vs ACS vs PE - trend troponin to r/o ACS - Wells score for PE: 3, suggesting moderate risk for PE. Chest CTA (-) for PE. - I & O 's - daily wts - Lasix prn 2) Afib - may be 2/2 hyperthyroid - cont. home med Eliquis 5mg PO BID - [id number] score: 6 - last Echo 03/2017 3) Right LE pain - f/t bandar LE Duplex U/S 4) Hyperthyroidism - Tapazole 10mg PO daily - f/u free T3 - f/u with Endocrinology as an outpatient 5) HTN - cont. home meds Lopressor 50mg PO BID, Lisinopril 2.5mg PO daily 6) DM II - sliding scale insulin initiated - poc glucose monitoring QID 7) asthma - cont. home meds Albuterol 1-2 puffs IH QID, Singulair 10mg PO daily 8) Parkinson - has had tremor for 30 yrs and does not wish to address at this time 9) GERD - cont. home med Omeprazole 40mg PO daily 10) FEN - Fluids: none indicated - Electrolytes: wnl, cont. to monitor - Nutrition: Sodium controlled diabetic diet 11) DVT Prophylaxis - cont. Eliquis Visit type - Emergency Visit Emergency Visit: Yes ED Registration Date: 07/04/17 Care time: The patient presented to the Emergency Department on the above date and was hospitalized for further evaluation of their emergent condition. - New Patient This patient is new to me today: Yes Date on this admission: 07/05/17 - Critical Care Critical Care patient: No
[2017-07-05] MEDS ORDERED: ALBUTEROL SO4 6.7 GM HFA INHALER IH SCH ×2
[2017-07-05 01:17] LABS: CPK 68 IU/L (26-192); TROPONIN I < 0.02 ng/ml (0.00-0.05)
[2017-07-05] MEDS ORDERED: ALBUTEROL SO4 6.7 GM HFA INHALER IH PRN (01:20)
[2017-07-05 02:01] VITALS: BMI 38.2
[2017-07-05] MEDS: INSULIN SLIDING SCALE (NOVOLOG) 1 VIAL SQ SCH ×3 (06:02→17:19)
[2017-07-05] MEDS ORDERED: PT OWN MED DRAWER 7, Y5N ONE ×4 (06:36→09:24)
[2017-07-05 08:29] LABS: ANION GAP 8 (8-16); CALCIUM 9.1 mg/dL (8.5-10.1); CO2 35 mmol/L (21-32); CREATININE 0.7 mg/dL (0.55-1.02); GLUCOSE,RANDOM 80 mg/dL (74-106)
[2017-07-05] MEDS: APIXABAN 5 MG TABLET PO SCH (09:06)
[2017-07-05] MEDS: METOPROLOL TARTRATE 50 MG TABLET (FP) PO SCH (09:06)
--- NOTE | 2017-07-05 09:48 | PN ---
Progress Note (short form) - Note Progress Note: Chief Complaint: Events noted notes reviewed. Atypical chest pain, chronic dyspnea, elevated BNP level History of Present Illness: Seen and examined on telemetry. Full consult dictated Medications: Current Medications Acetaminophen (Tylenol -) 650 mg PO Q4H PRN PRN Reason: FEVER OR PAIN Last Admin: 07/05/17 01:18 Dose: 650 mg Albuterol Sulfate (Ventolin Hfa Inhaler -) 1 puff IH QIDR PRN PRN Reason: SHORTNESS OF BREATH Apixaban (Eliquis -) 5 mg PO BID [facility] Last Admin: 07/05/17 09:06 Dose: 5 mg Brimonidine Tartrate (Alphagan 0.2% -) 1 drop OU DAILY [facility] Last Admin: 07/05/17 09:08 Dose: 1 drop Insulin Aspart (Novolog Vial Sliding Scale -) 1 vial SQ ACHS [facility] PRN Reason: Protocol Last Admin: 07/05/17 06:02 Dose: Not Given Latanoprost (Xalatan 0.005% Eye Drops -) 1 drop OU DAILY [facility] Last Admin: 07/05/17 09:07 Dose: 1 drop Lisinopril (Prinivil) 2.5 mg PO DAILY [facility] Last Admin: 07/05/17 09:06 Dose: 2.5 mg Methimazole (Tapazole -) 10 mg PO DAILY [facility] Metoprolol Tartrate (Lopressor -) 50 mg PO BID [facility] Last Admin: 07/05/17 09:06 Dose: 50 mg Pantoprazole Sodium (Protonix -) 40 mg PO DAILY [facility] Last Admin: 07/05/17 09:06 Dose: 40 mg Timolol Maleate (Timoptic 0.5%) 1 drop OU DAILY [facility] Last Admin: 07/05/17 09:07 Dose: 1 drop Home Medications Medication Instructions Recorded Acetaminophen [Pain Relief] 650 mg PO Q6H 09/13/16 Albuterol Sulfate Inhaler - 1 - 2 inh PO QID PRN 09/13/16 [Ventolin HFA Inhaler -] Bimatoprost [Lumigan] 1 drop OU DAILY 04/09/17 Brimonidine Tartrate/Timolol 5 ml OU DAILY 04/09/17 [Combigan 0.2%-0.5% Eye Drops] Apixaban [Eliquis -] 5 mg PO BID #60 tab 04/13/17 Metoprolol Tartrate [Lopressor -] 50 mg PO BID #60 tablet 04/13/17 Lisinopril [Zestril] 2.5 mg PO DAILY 07/04/17 Omeprazole 40 mg PO DAILY 07/04/17 Review of Systems - Review of Systems Constitutional: denies: Chills, Fever Cardiovascular: As noted above Respiratory: denies: Cough or sputum production Gastrointestinal: denies: nausea, vomiting, diarrhea, constipation or Abdominal Pain Genitourinary: denies: Dysuria Musculoskeletal: denies: Joint Pain Neurological: No symptoms reported Vital Signs: Last Vital Signs Temp Pulse Resp BP Pulse Ox 97.6 F 76 20 145/81 95 07/05/17 05:30 07/05/17 05:30 07/05/17 05:30 07/05/17 05:30 07/05/17 00:45 Intake & Output 07/02/17 07/03/17 07/04/17 07/05/17 23:59 23:59 23:59 23:59 Intake Total 120 Balance 120 Weight 190 lb 189 lb 3.2 oz HEENT: MCKINLEY, EOMI Unicteric Sclera Neck: Supple Negative JVD No Bruit Cardiovascular: Pulse Irregularly Irregular Grade 2/6 ADRIANNE Respiratory: Diminished Breath Sounds at the Bases Gastrointestinal: Soft Benign Normal Bowel Sounds Ext: No Edema Labs: Troponin, BNP 07/04/17 07/04/17 07/05/17 13:45 13:45 00:35 Troponin I < 0.02 < 0.02 B-Natriuretic Peptide 1841.36 H CBC, BMP 07/04/17 13:45 07/05/17 07:00 Hepatic Panel Total Bilirubin 0.7 mg/dL (0.2-1.0) D 07/04/17 13:45 AST 17 U/L (15-37) D 07/04/17 13:45 ALT 24 U/L (12-78) 07/04/17 13:45 Alkaline Phosphatase 79 U/L (45-117) 07/04/17 13:45 Albumin 3.5 g/dl (3.4-5.0) 07/04/17 13:45 INR, PTT INR 1.31 (0.82-1.09) H 07/04/17 13:45 Assessment/Plan ASSESSMENT: 1. Chest pain syndrome clinical presentation of which is atypical for coronary artery disease angina pectoris 2. Coronary artery disease angina pectoris 3. Diastolic left ventricular dysfunction with chronic class I [place] [employer] classification left ventricular failure compensated euvolemic, BNP elevation most likely related to the above-noted chronic diastolic left ventricular dysfunction and persistence of atrial fibrillation 4. HTN/HCVD 5. Diabetes mellitus 6. Probable essential tremors 7. Hyperthyroidism 8. History of reactive airway disease/bronchial asthma 9. History of gastro-esophageal reflux disease PLAN: 1. Continue Lopressor 2. Continue Lisinopril 3. Continue Eliquis therapy indefinitely unless it is absolutely contraindicated considering the above-noted [id number] of 6, appropriate dosage 4. May initiate diuretic therapy as needed with close monitoring of renal function and electrolytes 5. Patient can be discharged home from the cardiovascular point of view and was advised to followup in the office with Dr. Johann Perera MD
[2017-07-05] MEDS ORDERED: LISINOPRIL 5 MG TABLET (FP) PO SCH (10:00)
[2017-07-05] MEDS ORDERED: TIMOLOL 0.5% OPHTHALMIC SOL 5 ML BOTTLE OU SCH (10:00)
[2017-07-05] MEDS ORDERED: LATANOPROST 0.005% OPHTH SOLN 2.5ML BOTTLE OU SCH (10:00)
[2017-07-05] MEDS ORDERED: PANTOPRAZOLE 40 MG TABLET (FP) PO SCH (10:00)
[2017-07-05] MEDS ORDERED: BRIMONIDINE TARTRATE 0.2% OPHTHALMIC 5 ML BOTTLE OU SCH (10:00)
[2017-07-05] MEDS ORDERED: PATIENT'S OWN MEDICATION (NON-FORMULARY) (Brimonidine Tartrate/Timolol [Combigan 0.2%-0.5% OP SCH (10:00)
[2017-07-05] MEDS ORDERED: PATIENT'S OWN MEDICATION (NON-FORMULARY) (Brimonidine Tartrate/Timolol [Combigan 0.2%-0.5% OU SCH (10:00)
[2017-07-05] MEDS ORDERED: PATIENT'S OWN MEDICATION (NON-FORMULARY) (Bimatoprost [Lumigan] 1 DROP) IO SCH (10:00)
[2017-07-05] MEDS ORDERED: METHIMAZOLE 10 MG TABLET (FP) PO SCH (10:00)
--- NOTE | 2017-07-05 10:06 | PN ---
Physical Exam: SUBJECTIVE: Patient seen and examined, patient reports feeling well, denies any chest pain or shortness of breath, pt wants to go home. OBJECTIVE: patient is a 81y/o female, with a past medical history of hypertension, afib (eliquis), diastolic congestive heart failure, and NIDDM. patient was admitted from the emergency department for dyspnea upon exertion and chest pain. Vital Signs Period Temp Pulse Resp BP Sys/Ugarte Pulse Ox Last 24 Hr 97.6 F-97.7 F 76-82 20-20 145-163/79-81 95 GENERAL: The patient is awake, alert, and fully oriented, in no acute distress. HEAD: Normal with no signs of trauma. EYES: PERRL, extraocular movements intact, sclera anicteric, conjunctiva clear. No ptosis. ENT: Ears normal, nares patent, oropharynx clear without exudates, moist mucous membranes. NECK: Trachea midline, full range of motion, supple. LUNGS: Breath sounds equal, clear to auscultation bilaterally, diminished to bases, no wheezes, no crackles, no accessory muscle use. HEART: irregular rate and rhythm, S1, S2 without murmur, rub or gallop. ABDOMEN: Soft, nontender, nondistended, normoactive bowel sounds, no guarding, no rebound, no hepatosplenomegaly, no masses. EXTREMITIES: 2+ pulses, warm, well-perfused, no edema. NEUROLOGICAL: Cranial nerves II through XII grossly intact. Normal speech, gait not observed. PSYCH: Normal mood, normal affect. SKIN: Warm, dry, normal turgor, no rashes or lesions noted Laboratory Results - last 24 hr CBC WBC 5.4 K/mm3 (4.0-10.0) D 07/04/17 13:45 RBC 4.45 M/mm3 (3.60-5.2) 07/04/17 13:45 Hgb 12.0 GM/dL (10.7-15.3) 07/04/17 13:45 Hct 37.6 % (32.4-45.2) 07/04/17 13:45 MCV 84.5 fl (80-96) 07/04/17 13:45 MCH 27.0 pg (25.7-33.7) 07/04/17 13:45 MCHC 31.9 g/dl (32.0-36.0) L 07/04/17 13:45 RDW 14.9 % (11.6-15.6) 07/04/17 13:45 Plt Count 214 K/MM3 (134-434) 07/04/17 13:45 MPV 8.2 fl (7.5-11.1) 07/04/17 13:45 Neutrophils % 48.9 % (42.8-82.8) 07/04/17 13:45 Lymphocytes % 37.4 % (8-40) 07/04/17 13:45 Monocytes % 10.1 % (3.8-10.2) 07/04/17 13:45 Eosinophils % 3.0 % (0-4.5) D 07/04/17 13:45 Basophils % 0.6 % (0-2.0) D 07/04/17 13:45 CMP Sodium 143 mmol/L (136-145) 07/05/17 07:00 Potassium 3.9 mmol/L (3.5-5.1) D 07/05/17 07:00 Chloride 100 mmol/L (98-107) 07/05/17 07:00 Carbon Dioxide 35 mmol/L (21-32) H 07/05/17 07:00 Anion Gap 8 (8-16) 07/05/17 07:00 BUN 11 mg/dL (7-18) 07/05/17 07:00 Creatinine 0.7 mg/dL (0.55-1.02) 07/05/17 07:00 Creat Clearance w eGFR > 60 (>60) 07/04/17 13:45 POC Glucometer 84 UNITS (()) 07/05/17 11:26 Random Glucose 80 mg/dL (74-106) D 07/05/17 07:00 Hemoglobin A1c % 6.5 % (4.8-6.0) H D 07/05/17 07:00 Calcium 9.1 mg/dL (8.5-10.1) 07/05/17 07:00 Total Bilirubin 0.7 mg/dL (0.2-1.0) D 07/04/17 13:45 AST 17 U/L (15-37) D 07/04/17 13:45 ALT 24 U/L (12-78) 07/04/17 13:45 Alkaline Phosphatase 79 U/L (45-117) 07/04/17 13:45 Creatine Kinase 68 IU/L (26-192) 07/05/17 00:35 Troponin I < 0.02 ng/ml (0.00-0.05) 07/05/17 00:35 B-Natriuretic Peptide 1841.36 pg/ml (5-450) H 07/04/17 13:45 Total Protein 6.5 g/dl (6.4-8.2) 07/04/17 13:45 Albumin 3.5 g/dl (3.4-5.0) 07/04/17 13:45 TSH 0.06 uIU/ml (0.358-3.74) L D 07/04/17 13:45 Free T4 1.19 ng/dl (0.76-1.46) 07/04/17 13:45 Active Medications Generic Name Dose Route Start Last Admin Trade Name Freq PRN Reason Stop Dose Admin Acetaminophen 650 mg 07/04/17 22:13 07/05/17 01:18 Tylenol - PO 650 mg Q4H PRN Administration FEVER OR PAIN Albuterol Sulfate 1 puff 07/05/17 01:20 Ventolin Hfa Inhaler - IH QIDR PRN SHORTNESS OF BREATH Apixaban 5 mg 07/04/17 22:30 07/05/17 09:06 Eliquis - PO 5 mg BID SRKIANTH Administration Brimonidine Tartrate 1 drop 07/05/17 10:00 07/05/17 09:08 Alphagan 0.2% - OU 1 drop DAILY SRIKANTH Administration Insulin Aspart 1 vial 07/05/17 07:00 07/05/17 06:02 Novolog Vial Sliding Scale - SQ Not Given ACHS [facility] Protocol Latanoprost 1 drop 07/05/17 10:00 07/05/17 09:07 Xalatan 0.005% Eye Drops - OU 1 drop DAILY SRIKANTH Administration Lisinopril 2.5 mg 07/05/17 10:00 07/05/17 09:06 Prinivil PO 2.5 mg DAILY SRIKANTH Administration Methimazole 10 mg 07/05/17 10:00 Tapazole - PO DAILY SRIKANTH Metoprolol Tartrate 50 mg 07/04/17 22:30 07/05/17 09:06 Lopressor - PO 50 mg BID SRIKANTH Administration Pantoprazole Sodium 40 mg 07/05/17 10:00 07/05/17 09:06 Protonix - PO 40 mg DAILY SRIKANTH Administration Timolol Maleate 1 drop 07/05/17 10:00 07/05/17 09:07 Timoptic 0.5% OU 1 drop DAILY SRIKANTH Administration IMAGING cta of chest: negative PE, cardiomegly, billateral groundglass opacities chest xray no acute pathology duplex lower extremity no dvt ASSESSMENT/PLAN: 1)card Diastolic CHF exacerbation - bnp elevated, however, less than 04/06, pt appears euvolemic on exam - troponin x 2 wnl, pending 3rd - echo from 04/06 LV wnl afib - rate controlled continue toprol - continue eliquis hypertension - continue lisinopril - appreciate cardiology input 2) endo hyperthyroidism - continue tapazole 10mg qd - will require outpatient follow up with endocrine niddm - hgb a1c 6.5, continue fingersticks achs with regular insulin sliding scale 3) Pulm asthma - ct scan of chest reviewed, bilateral ground glass opacities noted, pt afebrile , no leukocytosis noted, likely athelactic changes - continue albuterol prn and singulair - appreciate pulmonary input 4) GI GERD - cont. home med Omeprazole 40mg PO daily FEN - Fluids: none indicated - Electrolytes: wnl, cont. to monitor - Nutrition: Sodium controlled diabetic diet VT Prophylaxis - cont. Eliquis Visit type - Emergency Visit Emergency Visit: Yes ED Registration Date: 07/05/17 Care time: The patient presented to the Emergency Department on the above date and was hospitalized for further evaluation of their emergent condition. - New Patient This patient is new to me today: Yes Date on this admission: 07/05/17 - Critical Care Critical Care patient: No - Discharge Referral Referred to [facility] No
[2017-07-05 13:19] LABS: URINE APPEARANCE SL CLOUDY; URINE BILIRUBIN NEGATIVE (NEGATIVE); URINE BLOOD NEGATIVE (NEGATIVE); URINE COLOR YELLOW; URINE GLUCOSE (UA) NEGATIVE (NEGATIVE); URINE KETONE NEGATIVE (NEGATIVE); URINE LEUK ESTERASE 2+ (NEGATIVE); URINE NITRITE NEGATIVE (NEGATIVE); URINE PROTEIN NEGATIVE (NEGATIVE); URINE UROBILINOGEN NORMAL mg/dL (0.2-1.0)
[2017-07-05 13:19] LABS: MAGNESIUM 2.2 mg/dL (1.8-2.4)
[2017-07-05 13:20] LABS: CPK 52 IU/L (26-192); TROPONIN I < 0.02 ng/ml (0.00-0.05)
[2017-07-05 13:24] LABS: URINE RBC 5 /hpf (0-3); URINE WBC 36 /hpf (3-5)
[2017-07-05 13:25] LABS: URINE MUCUS RARE
[2017-07-05 14:42] VITALS: BP 115/70; PULSE 68; TEMP 98.7
--- NOTE | 2017-07-05 14:55 | CON.PULM ---
Consult Consult Specialty:: PULMONARY Referred by:: TAM Hart Reason for Consultation:: shortness of breath - History of Present Illness Chief Complaint: back pain History of Present Illness: 81yo female with h/o HTN, DM, asthma, LV diastolic dysfunction, atrial fibrillation, Parkinson's who presents with back pain x 10 days. States pain is stabbing, radiating around the breast to the chest, associated with shortness of breath. +nonproductive cough without wheezing. No fevers, chills or sweats. Denies any leg swelling but sleeps on 3 pillows. She does report paroxysmal nocturnal dyspnea. CTA chest was done in the ER which did not show any evidence of PE but did show cardiomegaly and pulmonary vascular congestion. 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 Cardio/Vascular: Yes: AFIB, HTN Pulmonary: Yes: Asthma Endocrine: Yes: Diabetes Mellitus (Early) Additional Medical History: Glaucoma - Past Surgical History Past Surgical History: Yes: Hysterectomy - Alcohol/Substance Use Hx Alcohol Use: No - Smoking History Smoking history: Never smoked Have you smoked in the past 12 months: No Aproximately how many cigarettes per day: 0 Home Medications - Allergies Allergies/Adverse Reactions: Allergies Allergy/AdvReac Type Severity Reaction Status Date / Time No Known Allergies Allergy Verified 07/04/17 12:30 - Home Medications Home Medications: Ambulatory Orders Acetaminophen [Pain Relief] 650 mg PO Q6H 09/13/16 Albuterol Sulfate Inhaler - [Ventolin HFA Inhaler -] 1 - 2 inh PO QID PRN Bimatoprost [Lumigan] 1 drop OU DAILY 04/09/17 Brimonidine Tartrate/Timolol [Combigan 0.2%-0.5% Eye Drops] 5 ml OU DAILY Apixaban [Eliquis -] 5 mg PO BID #60 tab 04/13/17 Metoprolol Tartrate [Lopressor -] 50 mg PO BID #60 tablet 04/13/17 Lisinopril [Zestril] 2.5 mg PO DAILY 07/04/17 Omeprazole 40 mg PO DAILY 07/04/17 Acetaminophen [Tylenol .Regular Strength -] 650 mg PO Q4H PRN #0 tablet Methimazole [Tapazole -] 10 mg PO DAILY tablet 07/05/17 Review of Systems - Review of Systems Constitutional: denies: Chills, Fever Eyes: denies: Recent Change in Vision HENT: denies: Nasal Congestion, Throat Pain Neck: denies: Stiffness, Tenderness Cardiovascular: reports: Chest Pain, Shortness of Breath. denies: Palpitations Respiratory: reports: Cough, SOB, SOB on Exertion. denies: Hemoptysis, Wheezing Gastrointestinal: denies: Abdominal Pain, Nausea, Vomiting Genitourinary: denies: Dysuria, Hematuria Neurological: denies: Dizziness, Headache Endocrine: denies: Unexplained Weight Loss Physical Exam Vital Sings: Vital Signs Temperature 98.7 F 07/05/17 14:38 Pulse Rate 68 07/05/17 14:38 Respiratory Rate 18 07/05/17 14:38 Blood Pressure 115/70 07/05/17 14:38 O2 Sat by Pulse Oximetry (%) 91 L 07/05/17 09:00 Constitutional: Yes: Calm Eyes: Yes: Conjunctiva Clear, EOM Intact HENT: Yes: Atraumatic, Normocephalic Neck: Yes: Supple, Trachea Midline Cardiovascular: Yes: Pulse Irregular Respiratory: Yes: Diminished (distant breath sounds) ...Clubbing: No Gastrointestinal: Yes: Normal Bowel Sounds, Soft, Abdomen, Obese. No: Tenderness Edema: No Neurological: Yes: Alert, Oriented Imaging - Results Chest X-ray: Report Reviewed, Image Reviewed Cat Scan: Report Reviewed, Image Reviewed Problem List - Problems (1) Acute on chronic diastolic (congestive) heart failure Code(s): I50.33 - ACUTE ON CHRONIC DIASTOLIC (CONGESTIVE) HEART FAILURE (2) Atrial fibrillation Code(s): I48.91 - UNSPECIFIED ATRIAL FIBRILLATION (3) Asthma Code(s): J45.909 - UNSPECIFIED ASTHMA, UNCOMPLICATED (4) HTN (hypertension) Code(s): I10 - ESSENTIAL (PRIMARY) HYPERTENSION Qualifiers: Hypertension type: essential hypertension Qualified Code(s): I10 - Essential (primary) hypertension (5) Parkinson disease Code(s): G20 - PARKINSON'S DISEASE Assessment/Plan Acute on Chronic Diastolic Heart Failure Atrial Fibrillation HTN DM Asthma - symptoms have resolved after receiving lasix dose - can start PO lasix - rate control - continue anticoagulatio - inhaled bronchodilators as needed - can discharge home from pulmonary standpoint Thank you for this consult Ashwin Carter MD
--- NOTE | 2017-07-05 15:27 | CONS ---
DATE OF CONSULTATION: 07/05/2017 REQUESTING PHYSICIAN: Hospitalist. CHIEF COMPLAINT: Chest pain, evaluation of elevated BNP, cardiac arrhythmia. History was obtained from previous chart, in addition from her family member, daughter who was at the bedside. HISTORY OF PRESENT ILLNESS: An 81-year-old female, Liberian speaking, with known history of coronary artery disease, angina pectoris, diastolic left ventricular dysfunction, with chronic class I [employer] Heart Association Classification left ventricular failure, persistent atrial fibrillation, CHADS-VASc score of 6 on chronic anticoagulation therapy with Eliquis, hypertensive cardiovascular disease, diabetes mellitus, hyperthyroidism, reactive airway disease, bronchial asthma, tremors, who presented to [facility] with sudden onset of right-sided lower chest discomfort with radiation to the right upper quadrant. Upon evaluation in the emergency room, patient in addition was noted to have persistence of atrial fibrillation and elevated BNP level. Patient denies any exacerbation of the above-noted chest discomfort with physical activity. Patient denied any orthopnea. Patient reports dyspnea with [id number] physical exertion. Patient denied any paroxysmal nocturnal dyspnea but reports intermittent bilateral lower extremity edema that worsens in the latter part of the day. Patient denied any palpitations, dizziness, lightheadedness, or syncope. CT scan of the chest with contrast was performed which did not reveal any evidence of pulmonary embolism. PAST MEDICAL HISTORY: Coronary artery disease, angina pectoris, diastolic left ventricular dysfunction with chronic class I Nash Heart Association Classification left ventricular failure, persistent atrial fibrillation on chronic anticoagulation therapy, CHADS-VASc score of 6, hypertensive cardiovascular disease, diabetes mellitus, tremors, hyperthyroidism, reactive airway disease, bronchial asthma, hysterectomy. SOCIAL HISTORY: Nonsmoker. FAMILY HISTORY: Positive coronary artery disease. ALLERGIES: None reported. MEDICAL THERAPY AT HOME: Included acetaminophen 650 mg as needed, Ventolin HFA 1-2 puffs 4 times a day as needed, Lumigan eye drops, Timolol eye drops, Combigan, Eliquis 5 mg twice a day, Lopressor 50 mg twice a day, lisinopril 2.5 mg once a day, omeprazole 40 mg once a day for gastroesophageal reflux disease. REVIEW OF SYSTEMS: Head and Neck: Denies headache, photophobia, blurring of vision. Respiratory: No cough or sputum production. Cardiovascular: As noted above. Gastrointestinal: Denies nausea, vomiting, diarrhea. Genitourinary: No symptoms reported. Musculoskeletal: Degenerative joint disease. PHYSICAL EXAMINATION: Vital Signs: Blood pressure 145/81 mmHg, pulse rate is 76 beats per minute. Head and Neck: Pupils equal, reactive to light and accommodation. Extraocular muscles are intact. Anicteric sclerae. Negative JVD. No bruit appreciated. Chest: Diminished breath sounds at the bases. Cardiovascular: S1, S2. Irregularly irregular. Grade 2/6 systolic ejection murmur. No clicks or gallops. Abdomen: Soft, benign. Normoactive bowel sounds. Extremities: Negative edema. Distal pulses 1+. No calf tenderness. Electrocardiogram reveals atrial fibrillation with nonspecific ST-segment abnormality. CBC revealed white cell count of 5.4, hemoglobin 12.0, platelets 214. Basic metabolic profile revealed sodium 143, potassium 3.9, BUN 11, creatinine 0.7, glucose 80. INR 1.31. ASSESSMENT: 1. Chest pain syndrome, clinical presentation of which is atypical for coronary artery disease, angina pectoris. 2. Coronary artery disease, angina pectoris. 3. Diastolic left ventricular dysfunction with chronic class I Nash Heart Association classification left ventricular failure, compensated, euvolemic. BNP elevation most likely related to the above-noted chronic diastolic left ventricular dysfunction and persistence of atrial fibrillation. 4. Hypertensive cardiovascular disease. 5. Diabetes mellitus. 6. Probable essential tremors. 7. Hyperthyroidism. 8. History of reactive airway disease/bronchial asthma. 9. History of gastroesophageal reflux disease. PLAN: 1. Continuation of Lopressor therapy. 2. Continuation of lisinopril therapy. 3. Continuation of Eliquis therapy indefinitely unless it is absolutely contraindicated considering the above-noted CHADS-VASc score of 6. Patient currently is on appropriate dosage. 4. May initiate diuretic therapy as needed with close monitoring of renal function and electrolytes. 5. Patient can be discharged home from the cardiovascular point of view and was advised to follow up in the office with Dr. Johann Cowan. Thank you for the kind referral. SELENA BRADLEY M.D. MAYDA/[id number]
[2017-07-05] MEDS ORDERED: CEPHALEXIN MONOHYDRATE 500 MG CAPSULE (UD) PO ONE (17:04)
--- NOTE | 2017-07-05 17:06 | DS ---
Physical Exam: SUBJECTIVE: Patient seen and examined. Reports her breathing has improved. Is ambulating without SOB and is eager to go home. OBJECTIVE: Vital Signs Period Temp Pulse Resp BP Sys/Ugarte Pulse Ox Last 24 Hr 98.7 F 68 18-18 115/70 94 PHYSICAL EXAM GENERAL: The patient is awake, alert, and fully oriented, in no acute distress. EYES: PERRL, extraocular movements intact, sclera anicteric, conjunctiva clear. ENT: Ears normal, nares patent, oropharynx clear without exudates, moist mucous membranes. NECK: Trachea midline, full range of motion, supple. LUNGS: Breath sounds clear but diminished at bases; no wheezes, no crackles, no accessory muscle use. HEART: Irregular rhythm without murmur, rub or gallop. ABDOMEN: Soft, nontender, nondistended, normoactive bowel sounds, no guarding, no rebound, no hepatosplenomegaly, no masses. EXTREMITIES: 2+ pulses, warm, well-perfused, no edema. NEUROLOGICAL: Essential tremor. Cranial nerves II through XII grossly intact. Normal speech, gait not observed. PSYCH: Normal mood, normal affect. SKIN: Warm, dry, normal turgor, no rashes or lesions noted. LABS Laboratory Tests 07/04/17 07/04/17 07/04/17 13:45 13:45 13:45 WBC 5.4 D RBC 4.45 Hgb 12.0 Hct 37.6 MCV 84.5 MCH 27.0 MCHC 31.9 L RDW 14.9 Plt Count 214 MPV 8.2 Neutrophils % 48.9 Lymphocytes % 37.4 Monocytes % 10.1 Eosinophils % 3.0 D Basophils % 0.6 D INR 1.31 H Sodium 141 Potassium 5.1 Chloride 105 Carbon Dioxide 30 Anion Gap 6 L BUN 12 D Creatinine 0.8 Creat Clearance w eGFR > 60 POC Glucometer Random Glucose 118 H D Hemoglobin A1c % Calcium 8.6 Magnesium Total Bilirubin 0.7 D AST 17 D ALT 24 Alkaline Phosphatase 79 Creatine Kinase Troponin I B-Natriuretic Peptide 1841.36 H Total Protein 6.5 Albumin 3.5 TSH 0.06 L D Free T4 Urine Color Urine Appearance Urine pH Ur Specific [place] Urine Protein Urine Glucose (UA) Urine Ketones Urine Blood Urine Nitrite Urine Bilirubin Urine Urobilinogen Ur Leukocyte Esterase Urine RBC Urine WBC Ur Epithelial Cells Urine Mucus 07/04/17 07/04/17 07/04/17 13:45 13:45 15:25 WBC RBC Hgb Hct MCV MCH MCHC RDW Plt Count MPV Neutrophils % Lymphocytes % Monocytes % Eosinophils % Basophils % INR Sodium Potassium Chloride Carbon Dioxide Anion Gap BUN Creatinine Creat Clearance w eGFR POC Glucometer Random Glucose Hemoglobin A1c % Calcium Magnesium Total Bilirubin AST ALT Alkaline Phosphatase Creatine Kinase Troponin I < 0.02 B-Natriuretic Peptide Total Protein Albumin TSH Free T4 1.19 Urine Color Yellow Urine Appearance Sl cloudy Urine pH 5.0 Ur Specific [place] 1.025 Urine Protein Negative Urine Glucose (UA) Negative Urine Ketones Negative Urine Blood Negative Urine Nitrite Negative Urine Bilirubin Negative Urine Urobilinogen Normal Ur Leukocyte Esterase 2+ H Urine RBC 5 Urine WBC 36 Ur Epithelial Cells Rare Urine Mucus Rare 07/05/17 07/05/17 07/05/17 00:35 05:15 07:00 WBC RBC Hgb Hct MCV MCH MCHC RDW Plt Count MPV Neutrophils % Lymphocytes % Monocytes % Eosinophils % Basophils % INR Sodium 143 Potassium 3.9 D Chloride 100 Carbon Dioxide 35 H Anion Gap 8 BUN 11 Creatinine 0.7 Creat Clearance w eGFR POC Glucometer 78 Random Glucose 80 D Hemoglobin A1c % Calcium 9.1 Magnesium 2.2 Total Bilirubin AST ALT Alkaline Phosphatase Creatine Kinase 68 52 Troponin I < 0.02 < 0.02 B-Natriuretic Peptide Total Protein Albumin TSH Free T4 Urine Color Urine Appearance Urine pH Ur Specific [place] Urine Protein Urine Glucose (UA) Urine Ketones Urine Blood Urine Nitrite Urine Bilirubin Urine Urobilinogen Ur Leukocyte Esterase Urine RBC Urine WBC Ur Epithelial Cells Urine Mucus 07/05/17 07/05/17 07:00 11:26 WBC RBC Hgb Hct MCV MCH MCHC RDW Plt Count MPV Neutrophils % Lymphocytes % Monocytes % Eosinophils % Basophils % INR Sodium Potassium Chloride Carbon Dioxide Anion Gap BUN Creatinine Creat Clearance w eGFR POC Glucometer 84 Random Glucose Hemoglobin A1c % 6.5 H D Calcium Magnesium Total Bilirubin AST ALT Alkaline Phosphatase Creatine Kinase Troponin I B-Natriuretic Peptide Total Protein Albumin TSH Free T4 Urine Color Urine Appearance Urine pH Ur Specific [place] Urine Protein Urine Glucose (UA) Urine Ketones Urine Blood Urine Nitrite Urine Bilirubin Urine Urobilinogen Ur Leukocyte Esterase Urine RBC Urine WBC Ur Epithelial Cells Urine Mucus Imaging: CTA Chest 07/04: No PE, cardiomegaly, pulmonary vascular congestion Duplex LE 07/04: No DVTs Date of Admission:07/05/17 Date of Discharge: 07/05/17 HOSPITAL COURSE: This is an 81 year old female with a history of diastolic CHF, Afib (on Eliquis), HTN, hyperthyroidism, asthma, NIDDM, and Parkinson's disease who was admitted with chest pain and dyspnea on 07/04. She was given 40mg Lasix IVPB in the ED, which greatly improved her symptoms. Troponins were negative x 3. CTA was negative for PE but did indicate some cardiomegaly and pulmonary vascular congestion. She was monitored on telemetry and evaluated by both the cardiology and pulmonology services, who found her to be stable for discharge. She is asymptomatic this afternoon. UA did show 2+ leukesterase with 36 WBCs. Plan: -Continue home medications with the addition of Lasix 20mg po; patient and daughter understand that they must follow up within one week to have electrolytes checked and to have symptoms re-evaluated -Dietary restrictions reinforced -Urine culture sent; Keflex for UTI Followup instructions and return precautions reviewed with the patient and daughter. Minutes to complete discharge: 40 Discharge Summary Reason For Visit: CONGESTIVE HEART FAILURE Current Active Problems Atrial fibrillation (Acute) Atypical angina (Acute) Condition: Improved - Instructions Diet, Activity, Other Instructions: Resume low sodium/diabetic diet. Continue all medications as prescribed and add Lasix (prescription sent to your pharmacy). Take Keflex as prescribed for UTI. Please follow up with the fly winder and bait tier within 1 week. You will need repeat lab work within one week after starting this new medication. Please return to the ED for any shortness of breath, chest pain, or any other concerning symptoms. Referrals: Meron Perera MD [Staff Physician] - Efraín Fortune MD [Primary Care Provider] - Kane Diaz DO [Staff Physician] - Disposition: HOME - Home Medications Comprehensive Discharge Medication List: Ambulatory Orders Acetaminophen [Pain Relief] 650 mg PO Q6H 09/13/16 Albuterol Sulfate Inhaler - [Ventolin HFA Inhaler -] 1 - 2 inh PO QID PRN Bimatoprost [Lumigan] 1 drop OU DAILY 04/09/17 Brimonidine Tartrate/Timolol [Combigan 0.2%-0.5% Eye Drops] 5 ml OU DAILY Apixaban [Eliquis -] 5 mg PO BID #60 tab 04/13/17 Metoprolol Tartrate [Lopressor -] 50 mg PO BID #60 tablet 04/13/17 Lisinopril [Zestril] 2.5 mg PO DAILY 07/04/17 Omeprazole 40 mg PO DAILY 07/04/17 Acetaminophen [Tylenol .Regular Strength -] 650 mg PO Q4H PRN #0 tablet Cephalexin [Keflex] 500 mg PO BID #6 capsule 07/05/17 Furosemide [Lasix] 20 mg PO DAILY #30 tablet 07/05/17 Methimazole [Tapazole -] 10 mg PO DAILY tablet 07/05/17 This patient is new to me today: Yes Date on this admission: 07/05/17 Emergency Visit: Yes ED Registration Date: 07/05/17 Care time: The patient presented to the Emergency Department on the above date and was hospitalized for further evaluation of their emergent condition. Critical Care patient: No - Discharge Referral Referred to [facility] No
[2017-07-05] MEDS ORDERED: MONTELUKAST NA 10 MG TABLET PO SCH (22:00)
--- NOTE | 2017-07-06 16:48 | EKG ---
Test Reason : Blood Pressure : / mmHG Vent. Rate : 066 BPM Atrial Rate : 150 BPM P-R Int : 000 ms QRS Dur : 148 ms QT Int : 434 ms P-R-T Axes : 000 -13 007 degrees QTc Int : 454 ms ATRIAL FIBRILLATION RIGHT BUNDLE BRANCH BLOCK ABNORMAL ECG WHEN COMPARED WITH ECG OF 08-APR-2017 22:40, T WAVE INVERSION MORE EVIDENT IN ANTERIOR LEADS Confirmed by PETER BAH MD ([id number]) on 07/06/2017 4:47:45 PM Referred By: Confirmed By:PETER BAH MD
== END 2017-07-05 18:27 | disposition home or self-care (01) ==
LOC: JER 12:23 → JERBED 20:48 → UNDOADMOB 20:48 → OBSVTOIN 22:13 → INTOOBSV 22:13 → J4S 07-05 01:07 → JERBED 07-05 01:07 → J4S 07-05 14:01
PROVIDERS: ADMIT Internal Medicine; ATTEND Nurse Practitioner Family
PROC: 3E033GC Introduction of Other Therapeutic Substance into Peripheral Vein, Percutaneous Approach (ICD-10-PCS; principal; 2017-07-05)
DX: I20.8 Other forms of angina pectoris (principal); I10 Essential (primary) hypertension; I50.33 Acute on chronic diastolic (congestive) heart failure; I48.91 Unspecified atrial fibrillation; E11.9 Type 2 diabetes mellitus without complications; E05.90 Thyrotoxicosis, unspecified without thyrotoxic crisis or storm; G20 Parkinson's disease; J45.909 Unspecified asthma, uncomplicated; E66.9 Obesity, unspecified; Z68.38 Body mass index [BMI] 38.0-38.9, adult; K21.9 Gastro-esophageal reflux disease without esophagitis; Z79.01 Long term (current) use of anticoagulants
CPT/HCPCS: 36415; 71020-TC; 71275-TC; 80048; 80053; 81003; 81015; 83036; 83735; 83880; 84439; 84443; 84481; 84484; 85025; 85610; 87086; 93005; 93010; 93970-TC; 99284-25; G0378

== ENCOUNTER 2017-08-23 09:37 | Observation (INO) | payer OTHER ==
[2017-08-23 10:37] LABS: BASOPHIL 0.4 % (0-2.0); MCH 26.1 pg (25.7-33.7); MCHC 31.6 g/dl (32.0-36.0); MEAN CELL VOLUME 82.6 fl (80-96); NEUTROPHILS 57.3 % (42.8-82.8); PLATELET COUNT 183 K/MM3 (134-434); RDW 14.5 % (11.6-15.6); WHITE BLOOD COUNT 4.2 K/mm3 (4.0-10.0)
--- NOTE | 2017-08-23 10:38 | PDOC ---
History of Present Illness - General Chief Complaint: Shortness of Breath Stated Complaint: SOB (ASTHMA) Time Seen by Provider: 08/23/17 09:46 History Source: Patient, Family Exam Limitations: Language Barrier - History of Present Illness Initial Comments: 08/23/17 10:32 Patient is an 82F with history of CHF, afib on eloquis, HTN, asthma, DM2, hyperthyroidism and Parkinson's here today complaining of shortness of breath. There is associated leg pain in the left calf, substernal chest pain and cough. She returned from the [facility] [place] four days ago, which was when symptoms started. She states that she's been taking her medications, but she then says that she ran out of her lasix and didn't have a refill available. She states that she was taking her eloquis but seemed unsure. According to chart review, taking prescribed medicines has been a problem in the past for this patient. She endorses chills and nausea, denies fevers and chills. She states she hasn't been sleeping well and cannot lay flat. Past History - Past Medical History Allergies/Adverse Reactions: Allergies Allergy/AdvReac Type Severity Reaction Status Date / Time No Known Allergies Allergy Verified 08/23/17 09:41 Home Medications: Ambulatory Orders Acetaminophen [Pain Relief] 650 mg PO Q6H 09/13/16 Albuterol Sulfate Inhaler - [Ventolin HFA Inhaler -] 1 - 2 inh PO QID PRN Bimatoprost [Lumigan] 1 drop OU DAILY 04/09/17 Brimonidine Tartrate/Timolol [Combigan 0.2%-0.5% Eye Drops] 5 ml OU DAILY Apixaban [Eliquis -] 5 mg PO BID #60 tab 04/13/17 Metoprolol Tartrate [Lopressor -] 50 mg PO BID #60 tablet 04/13/17 Lisinopril [Zestril] 2.5 mg PO DAILY 07/04/17 Omeprazole 40 mg PO DAILY 07/04/17 Acetaminophen [Tylenol .Regular Strength -] 650 mg PO Q4H PRN #0 tablet Furosemide [Lasix] 20 mg PO DAILY #30 tablet 07/05/17 Asthma: Yes Cardiac Disorders: Yes (A-FIB) Diabetes: Yes GI Disorders: Yes (gerd) HTN: Yes Thyroid Disease: Yes (hyperthyroid) Other medical history: TREMORS DENIES HAVING PARKINSON'S - Suicide/Smoking/Psychosocial Hx Smoking History: Never smoked Have you smoked in the past 12 months: No Number of Cigarettes Smoked Daily: 0 Information on smoking cessation initiated: No Hx Alcohol Use: No Drug/Substance Use Hx: No Substance Use Type: None Hx Substance Use Treatment: No Review of Systems - Review of Systems Comments:: 08/23/17 10:42 GENERAL/CONSTITUTIONAL: No fever, No weakness. Positive for chills. HEAD, EYES, EARS, NOSE AND THROAT: No change in vision. No sore throat. CARDIOVASCULAR: Positive for chest pain and shortness of breath RESPIRATORY: Positive for cough. Negative for wheezing and hemoptysis GASTROINTESTINAL: Positive for nausea. Negative for vomiting, diarrhea or constipation. GENITOURINARY: No dysuria, frequency, or change in urination. MUSCULOSKELETAL: Positive for calf pain. No neck or back pain. SKIN: No rash NEUROLOGIC: No headache, vertigo, loss of consciousness, or change in strength/ sensation. ENDOCRINE: No increased thirst. No abnormal weight change HEMATOLOGIC/LYMPHATIC: No anemia, easy bleeding, or history of blood clots. ALLERGIC/IMMUNOLOGIC: No hives or skin allergy. *Physical Exam - Vital Signs Last Vital Signs Temp Pulse Resp BP Pulse Ox 99 F 83 20 100/57 94 L 08/23/17 09:39 08/23/17 09:39 08/23/17 09:39 08/23/17 09:39 08/23/17 10:25 - Physical Exam Comments: 08/23/17 10:44 GENERAL: Awake, alert, and fully oriented, in mild distress HEAD: No signs of trauma, normocephalic, atraumatic EYES: PERRLA, EOMI, sclera anicteric, conjunctiva clear ENT: Auricles normal inspection, hearing grossly normal, nares patent, oropharynx clear without exudates. Moist mucosa LUNGS: Mild distress, speaks full sentences, rales bilaterally HEART: Regular rhythm, tachycardic, normal S1 and S2, no murmurs, rubs or gallops, peripheral pulses normal and equal bilaterally. ABDOMEN: Soft, nontender, normoactive bowel sounds. No guarding, no rebound. No masses EXTREMITIES: Normal inspection, Normal range of motion, no edema. No clubbing or cyanosis. NEUROLOGICAL: Cranial nerves II through XII grossly intact. Normal speech, no focal sensorimotor deficits SKIN: Warm, Dry, normal turgor, no rashes or lesions noted. Heart Score/ECG Review - History History: Moderately suspicious - Electrocardiogram EKG: Non specific repolarization disturbance - Age Age: >/= 65 - Risk Factors Risk Factors Heart Score: Yes Hx Hypercholesterolemia, Yes Hx Hypertension, Yes Hx Diabetes Based on the list above the patient has:: >/=3 risk factors or Hx atherosclerotic disease - Troponin Troponin: </= normal limit - Score Heart Score - Total: 6 ED Treatment Course - LABORATORY CBC & Chemistry Diagram: 08/23/17 10:10 08/23/17 10:10 - RADIOLOGY Radiology Studies Ordered: Category Date Time Status CHEST CTA [CT] Stat CT Scan 08/23/17 09:59 Ordered CHEST X-RAY PORTABLE* [RAD] Stat Radiology 08/23/17 09:59 Ordered DUPLEX VASCUL US-1 LEG [US] Stat Ultrasound 08/23/17 09:59 Ordered Medical Decision Making - Medical Decision Making 08/23/17 10:45 Patient is an 82F with history of CHF, afib on eloquis, hyperthyroidism, asthma and parkinson's here today complaining of shortness of breath. Tachycardic, vital signs otherwise normal and stable. Differential diagnosis is focused on PE and DVT vs CHF exacerbation. Anticipate admission. Will evaluate with cardiac labs, cxr, ekg and cta chest. EKG shows afib with RBBB, stable when compared to her EKG from 07/04/17. No st elevation or depression. T-wave inversions in V1-V3, again stable compared to prior EKG. 08/23/17 11:20 Laboratory Tests 08/23/17 08/23/17 08/23/17 10:10 10:10 10:10 WBC 4.2 Hgb 12.5 Hct 39.6 Plt Count 183 INR 1.37 H B-Natriuretic Peptide 1894.99 H TSH < 0.01 L D CBC normal. INR elevated. BNP 1900, at level of prior admission. TSH negligible. 08/23/17 11:21 CXR shows moderate cardiomegaly, no acute disease. 08/23/17 11:21 Doppler shows no DVT. 08/23/17 13:17 CTA shows no PE, no pneumonia. Does show thyromegaly. 08/23/17 13:36 Febrile to 100.5, tachycardia has resolved. 08/23/17 14:12 Spoke with Tran Meza, admitted to obs under [facility]. *DC/Admit/Observation/Transfer Diagnosis at time of Disposition: Chest pain - Discharge Dispostion Condition at time of disposition: Stable Admit: Yes
--- NOTE | 2017-08-23 10:54 | EKG ---
Test Reason : Blood Pressure : / mmHG Vent. Rate : 077 BPM Atrial Rate : 083 BPM P-R Int : 000 ms QRS Dur : 144 ms QT Int : 408 ms P-R-T Axes : 000 -25 008 degrees QTc Int : 461 ms ATRIAL FIBRILLATION RIGHT BUNDLE BRANCH BLOCK ABNORMAL ECG WHEN COMPARED WITH ECG OF 04-JUL-2017 13:40, NO SIGNIFICANT CHANGE WAS FOUND REPEAT EKG IF CLINICALLY INDICATED Confirmed by PETER BAH MD ([id number]) on 08/23/2017 10:54:08 AM Referred By: Confirmed By:PETER BAH MD
[2017-08-23 10:55] LABS: INR 1.37 (0.82-1.09); PROTHROMBIN TIME (PATIENT) 15.2 SEC (9.98-11.88)
[2017-08-23 10:57] LABS: ALBUMIN 3.3 g/dl (3.4-5.0); ANION GAP 4 (8-16); BILIRUBIN,TOTAL 0.3 mg/dL (0.2-1.0); CALCIUM 8.4 mg/dL (8.5-10.1); CO2 32 mmol/L (21-32); CREATININE 0.7 mg/dL (0.55-1.02); GLUCOSE,RANDOM 99 mg/dL (74-106); SGOT/AST 20 U/L (15-37); SGPT/ALT 24 U/L (12-78); TOT PROT 6.8 g/dl (6.4-8.2)
[2017-08-23 11:06] LABS: ALK PHOS 86 U/L (45-117); CPK 53 IU/L (26-192); THYROID STIMULATING HORMONE < 0.01 uIU/ml (0.358-3.74); TROPONIN I < 0.02 ng/ml (0.00-0.05)
[2017-08-23 11:40] LABS: FREE T4 1.78 ng/dl (0.76-1.46)
[2017-08-23] MEDS ORDERED: ALBUTEROL SO4 2.5/IPRATROPIUM 0.5 INH SOL 3 ML VIAL.NEB. NEB ONE ×2 (12:23→12:49)
--- NOTE | 2017-08-23 12:33 | PDOC ---
Attending Attestation - Resident Resident Name: Lopez Dahl - ED Attending Attestation I have performed the following: I have examined & evaluated the patient, The case was reviewed & discussed with the resident, I agree w/resident's findings & plan, Exceptions are as noted - Medical Decision Making 08/23/17 13:11 A portion of this note was written by my scribe, under my supervision. Vital Signs Temp Pulse Resp BP Pulse Ox 100.5 F H 84 20 100/57 94 L 08/23/17 12:01 08/23/17 10:32 08/23/17 09:39 08/23/17 09:39 08/23/17 10:32 82 year old female c/ hx CHF, afib, HTN, asthma, DM, thyroid disorder, parkinson 's disease p/w SOB and chest pain. The patient recently returned from [place] 4 days ago. Has missed several days of her diuretics. Low grade temp of 100.5 degrees. Differential includes URI, bronchitis, CHF, asthma exacerbation, PE. Chest CTA demonstrates no PNA or PE. CBC, BMP 08/23/17 10:10 08/23/17 10:10 CMP Sodium 138 mmol/L (136-145) 08/23/17 10:10 Potassium 4.0 mmol/L (3.5-5.1) 08/23/17 10:10 Chloride 102 mmol/L (98-107) 08/23/17 10:10 Carbon Dioxide 32 mmol/L (21-32) 08/23/17 10:10 Anion Gap 4 (8-16) L 08/23/17 10:10 BUN 12 mg/dL (7-18) 08/23/17 10:10 Creatinine 0.7 mg/dL (0.55-1.02) 08/23/17 10:10 Creat Clearance w eGFR > 60 (>60) 08/23/17 10:10 Random Glucose 99 mg/dL (74-106) D 08/23/17 10:10 Calcium 8.4 mg/dL (8.5-10.1) L 08/23/17 10:10 Magnesium 2.0 mg/dL (1.8-2.4) 08/23/17 10:10 Total Bilirubin 0.3 mg/dL (0.2-1.0) D 08/23/17 10:10 AST 20 U/L (15-37) 08/23/17 10:10 ALT 24 U/L (12-78) 08/23/17 10:10 Alkaline Phosphatase 86 U/L (45-117) 08/23/17 10:10 Creatine Kinase 53 IU/L (26-192) 08/23/17 10:10 Troponin I < 0.02 ng/ml (0.00-0.05) 08/23/17 10:10 B-Natriuretic Peptide 1894.99 pg/ml (5-450) H 08/23/17 10:10 Total Protein 6.8 g/dl (6.4-8.2) 08/23/17 10:10 Albumin 3.3 g/dl (3.4-5.0) L 08/23/17 10:10 TSH < 0.01 uIU/ml (0.358-3.74) L D 08/23/17 10:10 Free T4 1.78 ng/dl (0.76-1.46) H D 08/23/17 10:10 Noted to have undetectable TSH with Free T4 elevation. Ultimately patient will require to be admitted. BNP elevated Likely combination of CHF and COPD and URI. Will need further inpatient management and workup for thyroid disorder <Pancho Kang - Last Filed: 08/23/17 13:11> - HPI HPI: 08/23/17 12:34 82 yr old female, pmhx of CHF, Afib(on eliquis), HTN, asthma, DM, hyperthyroidism, and parkinson's, who just returned from a trip from [place], 4 days ago. She complains of substernal, nonradiating chest pain, dry cough, and left calf pain. She states that she is unable to lay flat on her back. Denies increased leg swelling. Denies fever, chills, nausea, vomiting. Denies abdominal pain. 08/23/17 12:38 - Physicial Exam PE: 08/23/17 12:37 GENERAL: Awake, alert, and fully oriented, in no acute distress HEAD: No signs of trauma EYES: PERRLA, EOMI, sclera anicteric, conjunctiva clear ENT: Auricles normal inspection, hearing grossly normal, nares patent, oropharynx clear without exudates. Moist mucosa NECK: Normal ROM, supple, no lymphadenopathy, JVD, or masses LUNGS:+faint wheezing and rales bilaterally. HEART: +irregularly irregular rate and rhythm, normal S1 and S2, no murmurs, rubs or gallops ABDOMEN: Soft, nontender, normoactive bowel sounds. No guarding, no rebound. No masses EXTREMITIES: +trace pitting edema in the lower extremities bilaterally. Normal range of motion. No clubbing or cyanosis. No cords, erythema, or tenderness NEUROLOGICAL: Cranial nerves II through XII grossly intact. Normal speech, normal gait SKIN: Warm, Dry, normal turgor, no rashes or lesions noted. <Swathi Zuñiga - Last Filed: 08/23/17 13:28> Heart Score/ECG Review #1 ECG reviewed & interpreted by me at: 10:15 08/23/17 13:12 atrial fibrillation 77, RBBB, QTC 461 msec <Pancho Kang - Last Filed: 08/23/17 13:11>
[2017-08-23] MEDS ORDERED: ACETAMINOPHEN 325 MG TABLET (FP) ONE (12:48)
[2017-08-23] MEDS ORDERED: ACETAMINOPHEN 325 MG TABLET (FP) PO PRN (14:19)
[2017-08-23] MEDS ORDERED: ALBUTEROL SO4 18 GM HFA INHALER IH PRN ×3 (14:19→14:35)
[2017-08-23 14:46] LABS: URINE COLOR STRAW
[2017-08-23 14:47] LABS: URINE APPEARANCE CLEAR; URINE BILIRUBIN NEGATIVE (NEGATIVE); URINE BLOOD NEGATIVE (NEGATIVE); URINE GLUCOSE (UA) NEGATIVE (NEGATIVE); URINE KETONE TRACE (NEGATIVE); URINE LEUK ESTERASE 1+ (NEGATIVE); URINE NITRITE NEGATIVE (NEGATIVE); URINE PROTEIN NEGATIVE (NEGATIVE); URINE UROBILINOGEN NEGATIVE mg/dL (0.2-1.0)
[2017-08-23 14:48] LABS: URINE MUCUS RARE; URINE RBC 3 /hpf (0-3); URINE WBC 4 /hpf (3-5)
[2017-08-23] MEDS ORDERED: ALBUTEROL SO4 2.5/IPRATROPIUM 0.5 INH SOL 3 ML VIAL.NEB. NEB PRN (15:12)
--- NOTE | 2017-08-23 15:12 | HP ---
CHIEF COMPLAINT: shortness of breath PCP: Dr. Fortune HISTORY OF PRESENT ILLNESS: This is an 82 year old female with PMHx of diastolic heart failure, a.fib (on Eliquis), HTN, hyperthyroidism (non-compliant with Methimazole), asthma, NIDDM, and parkinson's disease who presented shortness of breath. The patient's daughter translated stating the patient returned from the [facility] 4 days after and since then has been complaining of cough with clear sputum, shortness of breath, burning with urination, and fever, chest pain/abdominal pain. The patient was away for approximately 3 weeks. She denies any dizziness, headache, sick contacts, syncope, lower extremity swelling, vomiting, diarrhea. ER course was notable for: (1) Temp 100.5, pulse 83, BP 100/57, pulse 20, O2 100% on RA (2) Chest CTA with no evidence of pulmonary embolism. Thyromegaly, right lobe greater than left. Cardiomegaly and moderate mediastinal lymphadenopathy (3) Left lower extremity doppler negative for DVT Recent Travel: [facility] PAST MEDICAL HISTORY: As above Social History: Smoking: denies Alcohol: denies Drugs: denies Family History: Allergies No Known Allergies Allergy (Verified 08/23/17 09:41) HOME MEDICATIONS: Home Medications Medication Instructions Recorded Acetaminophen [Pain Relief] 650 mg PO Q6H 09/13/16 Albuterol Sulfate Inhaler - 1 - 2 inh PO QID PRN 09/13/16 [Ventolin HFA Inhaler -] Bimatoprost [Lumigan] 1 drop OU DAILY 04/09/17 Brimonidine Tartrate/Timolol 5 ml OU DAILY 04/09/17 [Combigan 0.2%-0.5% Eye Drops] Apixaban [Eliquis -] 5 mg PO BID #60 tab 04/13/17 Metoprolol Tartrate [Lopressor -] 50 mg PO BID #60 tablet 04/13/17 Lisinopril [Zestril] 2.5 mg PO DAILY 07/04/17 Omeprazole 40 mg PO DAILY 07/04/17 Acetaminophen [Tylenol .Regular 650 mg PO Q4H PRN #0 tablet 07/05/17 Strength -] Furosemide [Lasix] 20 mg PO DAILY #30 tablet 07/05/17 REVIEW OF SYSTEMS CONSTITUTIONAL: Fever x3-4 days. Absent: chills, diaphoresis, generalized weakness, malaise, loss of appetite, weight change HEENT: Absent: rhinorrhea, nasal congestion, throat pain, throat swelling, difficulty swallowing, mouth swelling, ear pain, eye pain, visual changes CARDIOVASCULAR: Chest pain since this morning, non-radiating. Absent: syncope, palpitations, irregular heart rate, lightheadedness, peripheral edema RESPIRATORY: Cough with clear sputum x3-4 days. Shortness of breath x3-4 days with wheezing. Absent: dyspnea with exertion, orthopnea, stridor, hemoptysis GASTROINTESTINAL: Absent: abdominal pain, abdominal distension, nausea, vomiting , diarrhea, constipation, melena, hematochezia GENITOURINARY: Burning with urination that began 3 days ago. Absent: frequency, urgency, hesitancy, hematuria, flank pain MUSCULOSKELETAL: Absent: myalgia, arthralgia, joint swelling, back pain, neck pain SKIN: Absent: rash, itching, pallor HEMATOLOGIC/IMMUNOLOGIC: Absent: easy bleeding, easy bruising, lymphadenopathy, frequent infections ENDOCRINE:Absent: unexplained weight gain, unexplained weight loss, heat intolerance, cold intolerance NEUROLOGIC: Absent: headache, focal weakness or paresthesias, dizziness, unsteady gait, seizure, mental status changes, bladder or bowel incontinence PSYCHIATRIC: Absent: anxiety, depression, suicidal or homicidal ideation, hallucinations. PHYSICAL EXAMINATION Vital Signs - 24 hr 08/23/17 08/23/17 08/23/17 09:39 10:25 10:32 Temperature 99 F Pulse Rate 83 84 Respiratory 20 Rate Blood Pressure 100/57 O2 Sat by Pulse 94 L 94 L 94 L Oximetry (%) 08/23/17 12:01 Temperature 100.5 F H Pulse Rate Respiratory Rate Blood Pressure O2 Sat by Pulse Oximetry (%) GENERAL: Awake, alert, and fully oriented, in no acute distress. HEAD: Tremor. No signs of trauma. EYES: Pupils equal, round and reactive to light, sclera anicteric, conjunctiva clear. No lid lag. EARS, NOSE, THROAT: Ears normal, nares patent, oropharynx clear without exudates. Moist mucous membranes. NECK: Enlarged thyroid. LUNGS: B/l end expiratory wheezing. HEART: Irregular rate and rhythm, S1S2 ABDOMEN: Soft, nontender, not distended, normoactive bowel sounds MUSCULOSKELETAL: Normal range of motion at all joints. No bony deformities or tenderness. No CVA tenderness. UPPER EXTREMITIES: 2+ pulses, warm, well-perfused. No cyanosis. No clubbing. No peripheral edema. LOWER EXTREMITIES: 2+ pulses, warm, well-perfused. No calf tenderness. No peripheral edema. NEUROLOGICAL: Normal speech. Gait not observed PSYCHIATRIC: Cooperative. Good eye contact. Appropriate mood and affect. SKIN: Warm, dry, normal turgor, no rashes or lesions noted, normal capillary refill. Laboratory Results - last 24 hr 08/23/17 08/23/17 08/23/17 10:10 10:10 10:10 WBC 4.2 RBC 4.79 Hgb 12.5 Hct 39.6 MCV 82.6 MCH 26.1 MCHC 31.6 L RDW 14.5 Plt Count 183 MPV 8.0 Neutrophils % 57.3 Lymphocytes % 22.3 D Monocytes % 20.0 H D Eosinophils % 0.0 D Basophils % 0.4 PT with INR 15.20 H INR 1.37 H Sodium 138 Potassium 4.0 Chloride 102 Carbon Dioxide 32 Anion Gap 4 L BUN 12 Creatinine 0.7 Creat Clearance w eGFR > 60 Random Glucose 99 D Calcium 8.4 L Magnesium 2.0 Total Bilirubin 0.3 D AST 20 ALT 24 Alkaline Phosphatase 86 Creatine Kinase 53 Troponin I < 0.02 B-Natriuretic Peptide 1894.99 H Total Protein 6.8 Albumin 3.3 L TSH < 0.01 L D Free T4 1.78 H D Assessment: This is an 82 year old female with PMHx of diastolic heart failure, a.fib (on Eliquis), HTN, hyperthyroidism (non-compliant with Methimazole), asthma, and parkinson's disease who presented shortness of breath. Plan: 1) Endocrinology: Hyperthyroidism - Severe, TSH <0.01 - T4 1.78, T3 pending - Patient and daughter report she has NOT been taking her Methimazole - Start Methimazole 5mg po tid - F/u endocrine consult 2) Pulmonary: Acute mild asthma exacerbation - Mild end expiratory wheezing on exam - Duonebs prn - Prednisone taper - Start spiriva Moderate mediastinal lymphadenopathy - As evidence on chest CT - Possibly 2/2 acute process. Repeat in 4-6 weeks outpatient with pcp/pulmonary 3) Cardiology: Chronic diastolic heart failure - No evidence of acute exacerbation at this time - Continue Lasix (daughter does not believe the patient has been compliant as outpatient) - Continue Lopressor - Continue Lisinopril Chest pain - EKG - Trend troponins, x1 negative - F/u cardiology consult Chronic A.fib - Continue Eliquis - Rate controlled 4) ID: Fever, dysuria - Possible UTI - Start Ceftriaxone 1g IVPB daily - F/u urine culture: Called and spoke to RN who states urine culture was sent prior to antibiotics being given Cough - Influenza A&B negative - Likely viral URI 5) F/E/N: - Sodium controlled diet - Monitor electrolytes 6) Prophylaxis: - OOB ambulating - On Eliquis 7) Dispo: - Once condition improves CODE STATUS: FULL CODE Problem List - Problem (1) Chest pain Code(s): R07.9 - CHEST PAIN, UNSPECIFIED (2) Asthma Code(s): J45.909 - UNSPECIFIED ASTHMA, UNCOMPLICATED (3) Atrial fibrillation Code(s): I48.91 - UNSPECIFIED ATRIAL FIBRILLATION (4) Atypical angina Code(s): I20.8 - OTHER FORMS OF ANGINA PECTORIS (5) CHF (congestive heart failure) Code(s): I50.9 - HEART FAILURE, UNSPECIFIED Qualifiers: Congestive heart failure type: unspecified congestive heart failure type Congestive heart failure chronicity: unspecified congestive heart failure chronicity Qualified Code(s): I50.9 - Heart failure, unspecified; I50.9 - Heart failure, unspecified; I50.9 - Heart failure, unspecified; I50.9 - Heart failure, unspecified (6) Dyspnea Code(s): R06.00 - DYSPNEA, UNSPECIFIED Qualifiers: Dyspnea type: dyspnea on exertion Qualified Code(s): R06.09 - Other forms of dyspnea; R06.09 - Other forms of dyspnea (7) Hyperthyroidism Code(s): E05.90 - THYROTOXICOSIS, UNSP WITHOUT THYROTOXIC CRISIS OR STORM Visit type - Emergency Visit Emergency Visit: Yes ED Registration Date: 08/23/17 Care time: The patient presented to the Emergency Department on the above date and was hospitalized for further evaluation of their emergent condition. - New Patient This patient is new to me today: Yes Date on this admission: 08/23/17 - Critical Care Critical Care patient: No
[2017-08-23] MEDS ORDERED: predniSONE 20 MG TABLET (UD) PO ONE (15:13)
[2017-08-23] MEDS ORDERED: CEFTRIAXONE 1 GM in DEXTROSE 5%-WATER - 50 ML IVPB SCH (15:15)
[2017-08-23] MEDS ORDERED: CEFTRIAXONE 50 ML ONE (15:24)
[2017-08-23 15:51] VITALS: BMI 38.1
[2017-08-23 17:47] LABS: CPK 48 IU/L (26-192); TROPONIN I < 0.02 ng/ml (0.00-0.05)
--- NOTE | 2017-08-23 18:14 | CONSULT ---
Consult Consult Specialty:: Endocrinology Referred by:: Tran Meza Reason for Consultation:: Hyperthyrodism - History of Present Illness Chief Complaint: SOB, Fever History of Present Illness: This is an 82 year old female with h/o of diastolic heart failure, A fib (on Eliquis), HTN, hyperthyroidism (non-compliant with Methimazole), asthma, and parkinson's disease who presented shortness of breath, bodyache, cough and fever. The patient's daughter translated stating the patient returned from the [place] after 3 weeks stay. Pt denies any anxiety or recent change in weight. C/O feeling warm. No neck pain, No difficulty swallowing. In ER Temp 100.5, pulse 83, BP 100/57, pulse 20, O2 100% on RA, Chest CTA with no evidence of pulmonary embolism but thyromegaly, right lobe greater than left, Cardiomegaly and moderate mediastinal lymphadenopathy. Patient or family members not sure how long she has hyperthyroidism. 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 Cardio/Vascular: Yes: AFIB, HTN Pulmonary: Yes: Asthma Endocrine: Yes: Hyperthyroidism Additional Medical History: Glaucoma - Past Surgical History Past Surgical History: Yes: Hysterectomy - Alcohol/Substance Use Hx Alcohol Use: No - Smoking History Smoking history: Never smoked Have you smoked in the past 12 months: No Aproximately how many cigarettes per day: 0 Home Medications - Allergies Allergies/Adverse Reactions: Allergies Allergy/AdvReac Type Severity Reaction Status Date / Time No Known Allergies Allergy Verified 08/23/17 09:41 - Home Medications Home Medications: Ambulatory Orders Acetaminophen [Pain Relief] 650 mg PO Q6H 09/13/16 Albuterol Sulfate Inhaler - [Ventolin HFA Inhaler -] 1 - 2 inh PO QID PRN Bimatoprost [Lumigan] 1 drop OU DAILY 04/09/17 Brimonidine Tartrate/Timolol [Combigan 0.2%-0.5% Eye Drops] 5 ml OU DAILY Apixaban [Eliquis -] 5 mg PO BID #60 tab 04/13/17 Metoprolol Tartrate [Lopressor -] 50 mg PO BID #60 tablet 04/13/17 Lisinopril [Zestril] 2.5 mg PO DAILY 07/04/17 Omeprazole 40 mg PO DAILY 07/04/17 Acetaminophen [Tylenol .Regular Strength -] 650 mg PO Q4H PRN #0 tablet Furosemide [Lasix] 20 mg PO DAILY #30 tablet 07/05/17 Review of Systems - Review of Systems Constitutional: reports: Malaise Eyes: reports: No Symptoms HENT: reports: No Symptoms Neck: reports: No Symptoms Cardiovascular: reports: Shortness of Breath Respiratory: reports: Cough, SOB Gastrointestinal: reports: No Symptoms Genitourinary: reports: No Symptoms Breasts: reports: No Symptoms Reported Musculoskeletal: reports: No Symptoms Endocrine: reports: Intolerance to Heat Physical Exam Vital Signs: Vital Signs Temperature 98.7 F 08/23/17 16:44 Pulse Rate 89 08/23/17 16:44 Respiratory Rate 22 08/23/17 16:44 Blood Pressure 110/59 08/23/17 16:44 O2 Sat by Pulse Oximetry (%) 96 08/23/17 15:06 Constitutional: Yes: No Distress, Calm Eyes: Yes: Conjunctiva Clear, EOM Intact HENT: Yes: Atraumatic, Normocephalic Neck: Yes: Supple, Trachea Midline Cardiovascular: Yes: Pulse Irregular Respiratory: Yes: CTA Bilaterally Gastrointestinal: Yes: Normal Bowel Sounds, Soft Extremities: Yes: WNL Edema: No Neurological: Yes: Alert, Oriented Imaging - Results Cat Scan: Report Reviewed Assessment/Plan AP: Hyperthyroidism: Thyromegaly: s A Fib Asthma Exacerbation TSH <0.01 FT4 1.78 Continue Tapazole 5mg TID repeat TFT TSI Sonogram of thyroid as outpatient Will f/u
[2017-08-23] MEDS: APIXABAN 5 MG TABLET PO SCH (21:33)
[2017-08-23] MEDS: METHIMAZOLE 5 MG TABLET (FP) PO SCH (21:33)
[2017-08-23] MEDS: METOPROLOL TARTRATE 50 MG TABLET (FP) PO SCH (21:33)
[2017-08-23] MEDS: TIOTROPIUM BROMIDE 18 MCG/INH (DEVICE W/ 5 CAPSULES) IH SCH (21:34)
[2017-08-23] MEDS ORDERED: PT OWN MED DRAWER 7, Y5N ONE (21:38)
[2017-08-23 21:54] LABS: CPK 48 IU/L (26-192); TROPONIN I < 0.02 ng/ml (0.00-0.05)
[2017-08-23] MEDS ORDERED: TIMOLOL 0.5% OPHTHALMIC SOL 5 ML BOTTLE OU SCH (22:00)
[2017-08-23] MEDS ORDERED: BRIMONIDINE TARTRATE 0.2% OPHTHALMIC 5 ML BOTTLE OU SCH (22:00)
[2017-08-23] MEDS: LATANOPROST 0.005% OPHTH SOLN 2.5ML BOTTLE OU SCH (22:56)
[2017-08-24] MEDS ORDERED: guaiFENesin 200 MG/10 ML 10 ML UNIT-DOSE CUPS PO ONE (02:33)
[2017-08-24] MEDS: METHIMAZOLE 5 MG TABLET (FP) PO SCH ×3 (06:20→22:11)
[2017-08-24 07:23] LABS: MCH 26.6 pg (25.7-33.7); MCHC 32.1 g/dl (32.0-36.0); MEAN CELL VOLUME 82.8 fl (80-96); MEAN PLT VOLUME 9.2 fl (7.5-11.1); RDW 14.6 % (11.6-15.6)
[2017-08-24 07:52] LABS: ALBUMIN 3.2 g/dl (3.4-5.0); ALK PHOS 76 U/L (45-117); ANION GAP 8 (8-16); BILIRUBIN,TOTAL 0.4 mg/dL (0.2-1.0); CALCIUM 8.8 mg/dL (8.5-10.1); CO2 28 mmol/L (21-32); CREATININE 0.6 mg/dL (0.55-1.02); GLUCOSE,RANDOM 118 mg/dL (74-106); SGOT/AST 14 U/L (15-37); SGPT/ALT 19 U/L (12-78); TOT PROT 6.4 g/dl (6.4-8.2)
[2017-08-24 08:52] LABS: PLATELET COMMENT2 FEW LARGE PLTS; PLATELET ESTIMATE ADEQUATE (NORMAL)
[2017-08-24] MEDS ORDERED: DEXTROSE 5%-WATER - 50 ML IVPB ONE (09:24)
[2017-08-24] MEDS ORDERED: cefTRIAXone SODIUM 1 GM VIAL ONE (09:24)
[2017-08-24] MEDS ORDERED: PT OWN MED DRAWER 7, Y5N ONE ×3 (09:24→22:19)
--- NOTE | 2017-08-24 09:46 | CON.CARD ---
Consult Consult Specialty:: Cardiology Referred by:: Hospitalist Medicine Reason for Consultation:: Dyspnea on exertion, orthopnea - History of Present Illness Chief Complaint: Dyspnea on exertion, orthopnea History of Present Illness: This is an 82 year old female with PMHx of chronic diastolic heart failure, persistent atrial fibrillation (on Eliquis), HTN, hyperthyroidism (non- compliant with Methimazole), asthma, NIDDM, and parkinson's disease who presented shortness of breath on exertion, orthopnea, PND, cough with clear sputum, chest tightness, near syncope without palpitations, true syncope, lower extremity edema, sxs improved after initiation diuresis. 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 Cardio/Vascular: Yes: AFIB, HTN Pulmonary: Yes: Asthma Endocrine: Yes: Hyperthyroidism Additional Medical History: Glaucoma - Past Surgical History Past Surgical History: Yes: Hysterectomy - Alcohol/Substance Use Hx Alcohol Use: No - Smoking History Smoking history: Never smoked Have you smoked in the past 12 months: No Aproximately how many cigarettes per day: 0 Home Medications - Allergies Allergies/Adverse Reactions: Allergies Allergy/AdvReac Type Severity Reaction Status Date / Time No Known Allergies Allergy Verified 08/23/17 09:41 - Home Medications Home Medications: Ambulatory Orders Acetaminophen [Pain Relief] 650 mg PO Q6H 09/13/16 Albuterol Sulfate Inhaler - [Ventolin HFA Inhaler -] 1 - 2 inh PO QID PRN Bimatoprost [Lumigan] 1 drop OU DAILY 04/09/17 Brimonidine Tartrate/Timolol [Combigan 0.2%-0.5% Eye Drops] 5 ml OU DAILY Apixaban [Eliquis -] 5 mg PO BID #60 tab 04/13/17 Metoprolol Tartrate [Lopressor -] 50 mg PO BID #60 tablet 04/13/17 Lisinopril [Zestril] 2.5 mg PO DAILY 07/04/17 Omeprazole 40 mg PO DAILY 07/04/17 Acetaminophen [Tylenol .Regular Strength -] 650 mg PO Q4H PRN #0 tablet Furosemide [Lasix] 20 mg PO DAILY #30 tablet 07/05/17 Review of Systems - Review of Systems Respiratory: reports: Orthopnea, PND, SOB on Exertion Vital Signs: Vital Signs Temperature 98.2 F 08/24/17 05:54 Pulse Rate 82 08/24/17 05:54 Respiratory Rate 18 08/24/17 05:54 Blood Pressure 134/65 08/24/17 05:54 O2 Sat by Pulse Oximetry (%) 95 08/24/17 05:54 Constitutional: Yes: No Distress, Calm Neck: Yes: Supple Respiratory: Yes: Regular, Diminished Gastrointestinal: Yes: Normal Bowel Sounds, Soft, Abdomen, Obese Cardiovascular: Yes: Regular Rate and Rhythm JVD: No Carotid Bruit: No Heart Sounds: Yes: S1, S2 Murmur: Yes: Systolic Murmur, Grade 1 Edema: No - Other Data Labs, Other Data: CBC, BMP 08/24/17 05:10 08/24/17 05:10 INR, PTT INR 1.37 (0.82-1.09) H 08/23/17 10:10 Troponin, BNP 08/23/17 08/23/17 16:40 21:10 Troponin I < 0.02 < 0.02 Troponin, BNP 08/23/17 08/23/17 16:40 21:10 Troponin I < 0.02 < 0.02 Afib @ 77 RBBB Ejection Fraction %: LVEF > or = 40 % Imaging - Results Chest X-ray: Report Reviewed (NAD) Cat Scan: Report Reviewed (No PE) Ultrasound: Report Reviewed (No DVT) Problem List - Problems (1) Acute on chronic diastolic (congestive) heart failure Code(s): I50.33 - ACUTE ON CHRONIC DIASTOLIC (CONGESTIVE) HEART FAILURE (2) Asthma Code(s): J45.909 - UNSPECIFIED ASTHMA, UNCOMPLICATED Qualifiers: Asthma severity: mild Asthma persistence: intermittent Asthma complication type: unspecified Qualified Code(s): J45.20 - Mild intermittent asthma, uncomplicated; J45.20 - Mild intermittent asthma, uncomplicated; J45.20 - Mild intermittent asthma, uncomplicated (3) Atrial fibrillation Code(s): I48.91 - UNSPECIFIED ATRIAL FIBRILLATION Qualifiers: Atrial fibrillation type: persistent Qualified Code(s): I48.1 - Persistent atrial fibrillation; I48.1 - Persistent atrial fibrillation; I48.1 - Persistent atrial fibrillation; I48.1 - Persistent atrial fibrillation (4) HTN (hypertension) Code(s): I10 - ESSENTIAL (PRIMARY) HYPERTENSION Qualifiers: Hypertension type: essential hypertension Qualified Code(s): I10 - Essential (primary) hypertension; I10 - Essential (primary) hypertension; I10 - Essential (primary) hypertension (5) Hyperthyroidism Code(s): E05.90 - THYROTOXICOSIS, UNSP WITHOUT THYROTOXIC CRISIS OR STORM Assessment/Plan 04/11/2017 Normal LV size and fxn, mild-mod TR, AR nad mild IA 1. Acute on chronic left ventricular diastolic failure in context of 2. Uncontrolled hyperthyroidism with medication noncompliance 3. Persistent atrial fibrillation [id number] of 6 on Eliquis 4. HTN/HCVD 5. Diabetes mellitus 6. History of reactive airway disease/bronchial asthma 7. History of gastro-esophageal reflux disease 8. Coronary artery disease angina pectoris PLAN: 1. Resume diuresis with monitor diuretic response, renal function and electrolytes 2. Ruled out for GA 3. Continue Lopressor 50 bid, Lisinopril 2.5 qd, Eliquis 5 bid 4. Agree with methimazole 5 tid reinitiation, reinforced importance of medication and diet compliance 5. D/c abx once C&S negative 6. Thank you for consultative opportunity
[2017-08-24] MEDS ORDERED: PATIENT'S OWN MEDICATION (NON-FORMULARY) (Omeprazole [Omeprazole] 40 MG) PO SCH (10:00)
[2017-08-24] MEDS ORDERED: PATIENT'S OWN MEDICATION (NON-FORMULARY) (Bimatoprost [Lumigan] 1 DROP) OU SCH (10:00)
[2017-08-24] MEDS ORDERED: PATIENT'S OWN MEDICATION (NON-FORMULARY) (Lisinopril [Zestril] 2.5 MG) PO SCH (10:00)
[2017-08-24] MEDS ORDERED: PATIENT'S OWN MEDICATION (NON-FORMULARY) (Brimonidine Tartrate/Timolol [Combigan 0.2%-0.5% OU SCH (10:00)
[2017-08-24] MEDS: predniSONE 20 MG TABLET (UD) PO SCH (10:17)
[2017-08-24] MEDS: LISINOPRIL 5 MG TABLET (FP) PO SCH (10:17)
[2017-08-24] MEDS: PANTOPRAZOLE 40 MG TABLET (FP) PO SCH (10:18)
[2017-08-24] MEDS: FUROSEMIDE 20 MG TABLET (FP) PO SCH (10:18)
[2017-08-24] MEDS: APIXABAN 5 MG TABLET PO SCH ×2 (10:18→22:11)
[2017-08-24] MEDS: METOPROLOL TARTRATE 50 MG TABLET (FP) PO SCH ×2 (10:18→22:11)
[2017-08-24] MEDS: CEFTRIAXONE 1 GM in DEXTROSE 5%-WATER - 50 ML IVPB SCH (10:24)
[2017-08-24] MEDS: TIOTROPIUM BROMIDE 18 MCG/INH (DEVICE W/ 5 CAPSULES) IH SCH ×2 (10:24→22:11)
[2017-08-24] MEDS: BRIMONIDINE TARTRATE 0.2% OPHTHALMIC 5 ML BOTTLE OU SCH (10:24)
[2017-08-24] MEDS: TIMOLOL 0.5% OPHTHALMIC SOL 5 ML BOTTLE OU SCH (10:25)
--- NOTE | 2017-08-24 10:54 | PN ---
Progress Note (short form) - Note Progress Note: Feels better Vital Signs Period Temp Pulse Resp BP Sys/Ugarte Pulse Ox Last 24 Hr 97.4 F-100.5 F 65-90 16-22 108-136/54-86 95-100 PE: awake alert Neck: supple, HEENT: PERRL, EOMI Lungs: basal crackles CVS: S1S2 Abd: benign Ext: No edema Neuro: No focal deficit ' CMP Sodium 141 mmol/L (136-145) 08/24/17 05:10 Potassium 4.8 mmol/L (3.5-5.1) 08/24/17 05:10 Chloride 105 mmol/L (98-107) 08/24/17 05:10 Carbon Dioxide 28 mmol/L (21-32) 08/24/17 05:10 Anion Gap 8 (8-16) 08/24/17 05:10 BUN 18 mg/dL (7-18) D 08/24/17 05:10 Creatinine 0.6 mg/dL (0.55-1.02) 08/24/17 05:10 Creat Clearance w eGFR > 60 (>60) 08/24/17 05:10 POC Glucometer 127 UNITS (()) 08/24/17 05:25 Random Glucose 118 mg/dL (74-106) H 08/24/17 05:10 Calcium 8.8 mg/dL (8.5-10.1) 08/24/17 05:10 Magnesium 2.0 mg/dL (1.8-2.4) 08/23/17 10:10 Total Bilirubin 0.4 mg/dL (0.2-1.0) D 08/24/17 05:10 AST 14 U/L (15-37) L D 08/24/17 05:10 ALT 19 U/L (12-78) D 08/24/17 05:10 Alkaline Phosphatase 76 U/L (45-117) 08/24/17 05:10 Creatine Kinase 48 IU/L (26-192) 08/23/17 21:10 Troponin I < 0.02 ng/ml (0.00-0.05) 08/23/17 21:10 B-Natriuretic Peptide 1894.99 pg/ml (5-450) H 08/23/17 10:10 Total Protein 6.4 g/dl (6.4-8.2) 08/24/17 05:10 Albumin 3.2 g/dl (3.4-5.0) L 08/24/17 05:10 TSH < 0.01 uIU/ml (0.358-3.74) L D 08/23/17 10:10 Free T4 1.78 ng/dl (0.76-1.46) H D 08/23/17 10:10 Free T3 4.6 pg/ml (2.0-4.4) H 08/23/17 12:00 Current Medications Generic Name Dose Route Start Last Admin Trade Name Freq PRN Reason Stop Dose Admin Acetaminophen 650 mg 08/23/17 14:19 Tylenol - PO Q4H PRN FEVER OR PAIN Albuterol/Ipratropium 1 amp 08/23/17 15:12 Duoneb - NEB Q4H PRN SHORTNESS OF BREATH Apixaban 5 mg 08/23/17 22:00 08/24/17 10:18 Eliquis - PO 5 mg BID SRIKANTH Administration Brimonidine Tartrate 1 drop 08/24/17 10:00 08/24/17 10:24 Alphagan 0.2% - OU 1 drop DAILY SRIKANTH Administration Furosemide 20 mg 08/24/17 10:00 08/24/17 10:18 Lasix - PO 20 mg DAILY SRIKANTH Administration Furosemide 40 mg 08/24/17 10:37 Lasix Injection - IVPB 08/24/17 10:38 ONCE ONE Ceftriaxone Sodium 1 gm/ 50 mls @ 100 mls/hr 08/23/17 16:04 08/24/17 10:24 Dextrose IVPB 100 mls/hr DAILY SRIKANTH Administration Latanoprost 1 drop 08/23/17 22:00 08/23/17 22:56 Xalatan 0.005% Eye Drops - OU 1 drop HS SRIKANTH Administration Lisinopril 2.5 mg 08/24/17 10:00 08/24/17 10:17 Prinivil PO 2.5 mg DAILY SRIKANTH Administration Methimazole 5 mg 08/23/17 22:00 08/24/17 06:20 Tapazole - PO 5 mg TID SRIKANTH Administration Metoprolol Tartrate 50 mg 08/23/17 22:00 08/24/17 10:18 Lopressor - PO 50 mg BID SRIKANTH Administration Pantoprazole Sodium 40 mg 08/24/17 10:00 08/24/17 10:18 Protonix - PO 40 mg DAILY SRIKANTH Administration Prednisone 50 mg 08/24/17 10:00 08/24/17 10:17 Deltasone - PO 50 mg DAILY SRIKANTH Administration Timolol Maleate 1 drop 08/24/17 10:00 08/24/17 10:25 Timoptic 0.5% OU 1 drop DAILY SRIKANTH Administration Tiotropium [place] 1 puff 08/23/17 22:00 08/24/17 10:24 Spiriva - IH 1 puff BID SRIKANTH Administration AP: Hyperthyroidism: Thyromegaly A Fib Asthma Exacerbation TSH <0.01 FT4 1.78 Continue Tapazole 5mg TID repeat TFT in 2 days TSI and TPO pending Sonogram of thyroid as outpatient Will f/u
[2017-08-24] MEDS ORDERED: FUROSEMIDE 40 MG/4 ML INJECTABLE VIAL IVPB ONE (12:00)
[2017-08-24] MEDS ORDERED: ALBUTEROL SO4 0.083% IH SOL 2.5 MG/3 ML VIAL.NEB. NEB PRN (18:52)
--- NOTE | 2017-08-24 18:53 | PN ---
Progress Note (short form) - Note Progress Note: Subjective: The patient was seen and examined at the bedside, she has no complaints at this time Awaiting urine culture Will need TSH rechecked in 2 days Current Medications Generic Name Dose Route Start Last Admin Trade Name Frehelen PRN Reason Stop Dose Admin Acetaminophen 650 mg 08/23/17 14:19 Tylenol - PO Q4H PRN FEVER OR PAIN Albuterol/Ipratropium 1 amp 08/23/17 15:12 Duoneb - NEB Q4H PRN SHORTNESS OF BREATH Apixaban 5 mg 08/23/17 22:00 08/24/17 10:18 Eliquis - PO 5 mg BID SRIKANTH Administration Brimonidine Tartrate 1 drop 08/24/17 10:00 08/24/17 10:24 Alphagan 0.2% - OU 1 drop DAILY SRIKANTH Administration Furosemide 20 mg 08/24/17 10:00 08/24/17 10:18 Lasix - PO 20 mg DAILY SRIKANTH Administration Ceftriaxone Sodium 1 gm/ 50 mls @ 100 mls/hr 08/23/17 16:04 08/24/17 10:24 Dextrose IVPB 100 mls/hr DAILY SRIKANTH Administration Latanoprost 1 drop 08/23/17 22:00 08/23/17 22:56 Xalatan 0.005% Eye Drops - OU 1 drop HS SRIKANTH Administration Lisinopril 2.5 mg 08/24/17 10:00 08/24/17 10:17 Prinivil PO 2.5 mg DAILY SRIKANTH Administration Methimazole 5 mg 08/23/17 22:00 08/24/17 14:33 Tapazole - PO 5 mg TID SRIKANTH Administration Metoprolol Tartrate 50 mg 08/23/17 22:00 08/24/17 10:18 Lopressor - PO 50 mg BID SRIKANTH Administration Pantoprazole Sodium 40 mg 08/24/17 10:00 08/24/17 10:18 Protonix - PO 40 mg DAILY SRIKANTH Administration Prednisone 50 mg 08/24/17 10:00 08/24/17 10:17 Deltasone - PO 50 mg DAILY SRIKANTH Administration Timolol Maleate 1 drop 08/24/17 10:00 08/24/17 10:25 Timoptic 0.5% OU 1 drop DAILY SRIKANTH Administration Tiotropium [place] 1 puff 08/23/17 22:00 08/24/17 10:24 Spiriva - IH 1 puff BID SRIKANTH Administration Objective: Vital Signs Period Temp Pulse Resp BP Sys/Ugarte Pulse Ox Last 24 Hr 97.4 F-98.7 F 82-94 16-18 114-136/62-72 95-95 Physical Exam: GENERAL: Awake, alert, and fully oriented, in no acute distress. HEAD: Tremor. No signs of trauma. EYES: Pupils equal, round and reactive to light, sclera anicteric, conjunctiva clear. No lid lag. EARS, NOSE, THROAT: Ears normal, nares patent, oropharynx clear without exudates. Moist mucous membranes. NECK: Enlarged thyroid. LUNGS: B/l end expiratory wheezing. HEART: Irregular rate and rhythm, S1S2 ABDOMEN: Soft, nontender, not distended, normoactive bowel sounds MUSCULOSKELETAL: Normal range of motion at all joints. No bony deformities or tenderness. No CVA tenderness. UPPER EXTREMITIES: 2+ pulses, warm, well-perfused. No cyanosis. No clubbing. No peripheral edema. LOWER EXTREMITIES: 2+ pulses, warm, well-perfused. No calf tenderness. No peripheral edema. NEUROLOGICAL: Normal speech. Gait not observed PSYCHIATRIC: Cooperative. Good eye contact. Appropriate mood and affect. SKIN: Warm, dry, normal turgor, no rashes or lesions noted, normal capillary refill. CBCD WBC 4.0 K/mm3 (4.0-10.0) 08/24/17 05:10 RBC 4.72 M/mm3 (3.60-5.2) 08/24/17 05:10 Hgb 12.5 GM/dL (10.7-15.3) 08/24/17 05:10 Hct 39.0 % (32.4-45.2) 08/24/17 05:10 MCV 82.8 fl (80-96) 08/24/17 05:10 MCHC 32.1 g/dl (32.0-36.0) 08/24/17 05:10 RDW 14.6 % (11.6-15.6) 08/24/17 05:10 Plt Count No Result Required. 08/24/17 05:10 MPV 9.2 fl (7.5-11.1) D 08/24/17 05:10 CMP Sodium 141 mmol/L (136-145) 08/24/17 05:10 Potassium 4.8 mmol/L (3.5-5.1) 08/24/17 05:10 Chloride 105 mmol/L (98-107) 08/24/17 05:10 Carbon Dioxide 28 mmol/L (21-32) 08/24/17 05:10 Anion Gap 8 (8-16) 08/24/17 05:10 BUN 18 mg/dL (7-18) D 08/24/17 05:10 Creatinine 0.6 mg/dL (0.55-1.02) 08/24/17 05:10 Creat Clearance w eGFR > 60 (>60) 08/24/17 05:10 Random Glucose 118 mg/dL (74-106) H 08/24/17 05:10 Calcium 8.8 mg/dL (8.5-10.1) 08/24/17 05:10 Total Bilirubin 0.4 mg/dL (0.2-1.0) D 08/24/17 05:10 AST 14 U/L (15-37) L D 08/24/17 05:10 ALT 19 U/L (12-78) D 08/24/17 05:10 Alkaline Phosphatase 76 U/L (45-117) 08/24/17 05:10 Total Protein 6.4 g/dl (6.4-8.2) 08/24/17 05:10 Albumin 3.2 g/dl (3.4-5.0) L 08/24/17 05:10 CARDIAC ENZYMES Creatine Kinase 48 IU/L (26-192) 08/23/17 21:10 Troponin I < 0.02 ng/ml (0.00-0.05) 08/23/17 21:10 Assessment: This is an 82 year old female with PMHx of diastolic heart failure, a.fib (on Eliquis), HTN, hyperthyroidism (non-compliant with Methimazole), asthma, and parkinson's disease who presented shortness of breath. Plan: 1) Endocrinology: Severe Hyperthyroidism - Continue Methimazole 5mg po tid - Check TSH in 2 days - Appreciate endocrine consult 2) Pulmonary: Acute mild asthma exacerbation - Albuterol nebs prn - Prednisone taper - Continue spiriva Moderate mediastinal lymphadenopathy - As evidence on chest CT - Possibly 2/2 acute process. Repeat in 4-6 weeks outpatient with pcp/pulmonary 3) Cardiology: Acute on chronic diastolic heart failure - Given Lasix 40mg IVPB today - Continue Lasix - Continue Lopressor - Continue Lisinopril Chest pain - EKG - Trop x3 negative - Appreciate cardiology consult Chronic A.fib - Continue Eliquis - Rate controlled 4) ID: Fever, dysuria - Possible UTI - Start Ceftriaxone 1g IVPB daily - F/u urine culture: Appears to have been collected after abx given Cough - Influenza A&B negative - Likely viral URI 5) F/E/N: - Sodium controlled diet - Monitor electrolytes 6) Prophylaxis: - OOB ambulating - On Eliquis 7) Dispo: - Once condition improves - Educated the patient's daughter on the importance of medication compliance CODE STATUS: FULL CODE Problem List - Problems (1) Chest pain Code(s): R07.9 - CHEST PAIN, UNSPECIFIED (2) Asthma Code(s): J45.909 - UNSPECIFIED ASTHMA, UNCOMPLICATED Qualifiers: Asthma severity: mild Asthma persistence: intermittent Asthma complication type: unspecified Qualified Code(s): J45.20 - Mild intermittent asthma, uncomplicated; J45.20 - Mild intermittent asthma, uncomplicated; J45.20 - Mild intermittent asthma, uncomplicated (3) Atrial fibrillation Code(s): I48.91 - UNSPECIFIED ATRIAL FIBRILLATION Qualifiers: Atrial fibrillation type: persistent Qualified Code(s): I48.1 - Persistent atrial fibrillation; I48.1 - Persistent atrial fibrillation; I48.1 - Persistent atrial fibrillation; I48.1 - Persistent atrial fibrillation (4) Atypical angina Code(s): I20.8 - OTHER FORMS OF ANGINA PECTORIS (5) CHF (congestive heart failure) Code(s): I50.9 - HEART FAILURE, UNSPECIFIED Qualifiers: Congestive heart failure type: unspecified congestive heart failure type Congestive heart failure chronicity: unspecified congestive heart failure chronicity Qualified Code(s): I50.9 - Heart failure, unspecified; I50.9 - Heart failure, unspecified; I50.9 - Heart failure, unspecified; I50.9 - Heart failure, unspecified (6) Dyspnea Code(s): R06.00 - DYSPNEA, UNSPECIFIED Qualifiers: Dyspnea type: dyspnea on exertion Qualified Code(s): R06.09 - Other forms of dyspnea; R06.09 - Other forms of dyspnea (7) Hyperthyroidism Code(s): E05.90 - THYROTOXICOSIS, UNSP WITHOUT THYROTOXIC CRISIS OR STORM Visit type - Emergency Visit Emergency Visit: Yes ED Registration Date: 08/24/17 Care time: The patient presented to the Emergency Department on the above date and was hospitalized for further evaluation of their emergent condition. - New Patient This patient is new to me today: No - Critical Care Critical Care patient: No
[2017-08-24] MEDS: LATANOPROST 0.005% OPHTH SOLN 2.5ML BOTTLE OU SCH (22:10)
[2017-08-25] MEDS ORDERED: guaiFENesin 200 MG/10 ML 10 ML UNIT-DOSE CUPS PO PRN (00:16)
[2017-08-25 06:09] LABS: THYROID PEROXIDASE(TPO) 16 IU/mL (0-34)
[2017-08-25] MEDS: METHIMAZOLE 5 MG TABLET (FP) PO SCH ×2 (06:31→13:32)
[2017-08-25] MEDS ORDERED: cefTRIAXone SODIUM 1 GM VIAL ONE (09:13)
[2017-08-25] MEDS ORDERED: DEXTROSE 5%-WATER - 50 ML IVPB ONE (09:13)
--- NOTE | 2017-08-25 09:40 | PN ---
Progress Note, Physician Chief Complaint: Events noted Less cough this am History of Present Illness: Patient was seen and examined. Awake and alert. Chart was reviewed Denies chest pain, SOB or palpitations this am - Current Medication List Current Medications: Active Medications Acetaminophen (Tylenol -) 650 mg PO Q4H PRN PRN Reason: FEVER OR PAIN Albuterol Sulfate (Ventolin 0.083% Nebulizer Soln -) 1 amp NEB Q6H PRN PRN Reason: SHORT OF BREATH/WHEEZING Apixaban (Eliquis -) 5 mg PO BID [facility] Last Admin: 08/24/17 22:11 Dose: 5 mg Brimonidine Tartrate (Alphagan 0.2% -) 1 drop OU DAILY [facility] Last Admin: 08/24/17 10:24 Dose: 1 drop Furosemide (Lasix -) 20 mg PO DAILY [facility] Last Admin: 08/24/17 10:18 Dose: 20 mg Guaifenesin (Robitussin -) 10 ml PO Q6H PRN PRN Reason: COUGH Last Admin: 08/25/17 00:31 Dose: 10 ml Ceftriaxone Sodium 1 gm/ (Dextrose) 50 mls @ 100 mls/hr IVPB DAILY [facility] Last Admin: 08/24/17 10:24 Dose: 100 mls/hr Latanoprost (Xalatan 0.005% Eye Drops -) 1 drop OU HS [facility] Last Admin: 08/24/17 22:10 Dose: 1 drop Lisinopril (Prinivil) 2.5 mg PO DAILY [facility] Last Admin: 08/24/17 10:17 Dose: 2.5 mg Methimazole (Tapazole -) 5 mg PO TID [facility] Last Admin: 08/25/17 06:31 Dose: 5 mg Metoprolol Tartrate (Lopressor -) 50 mg PO BID [facility] Last Admin: 08/24/17 22:11 Dose: 50 mg Pantoprazole Sodium (Protonix -) 40 mg PO DAILY [facility] Last Admin: 08/24/17 10:18 Dose: 40 mg Prednisone (Deltasone -) 50 mg PO DAILY [facility] Last Admin: 08/24/17 10:17 Dose: 50 mg Timolol Maleate (Timoptic 0.5%) 1 drop OU DAILY [facility] Last Admin: 08/24/17 10:25 Dose: 1 drop Tiotropium [place] (Spiriva -) 1 puff IH BID [facility] Last Admin: 10/04/17 22:11 Dose: 1 puff - Objective Vital Signs: Vital Signs Temperature 97.3 F L 08/25/17 02:00 Pulse Rate 71 08/25/17 06:00 Respiratory Rate 20 08/25/17 06:00 Blood Pressure 154/87 08/25/17 06:00 O2 Sat by Pulse Oximetry (%) 92 L 08/24/17 22:00 Neck: Yes: Supple Cardiovascular: Yes: Pulse Irregular, S1, S2 Respiratory: Yes: Diminished Gastrointestinal: Yes: Normal Bowel Sounds, Soft. No: Tenderness Edema: No Additional Findings/Remarks: - Review of Systems Constitutional: denies: Chills, Fever Cardiovascular: denies: Palpitations, (+) Shortness of Breath. denies: Chest Pain Respiratory: reports: Cough, SOB. denies: Hemoptysis, Orthopnea, PND Gastrointestinal: denies: Abdominal Pain. denies: Constipation, Diarrhea, Melena, Nausea, Rectal Bleeding, Vomiting Neurological: denies: Confusion, Dizziness, Headache, Seizure, Syncope Problem List - Problems (1) Acute on chronic diastolic (congestive) heart failure Code(s): I50.33 - ACUTE ON CHRONIC DIASTOLIC (CONGESTIVE) HEART FAILURE (2) Asthma Code(s): J45.909 - UNSPECIFIED ASTHMA, UNCOMPLICATED Qualifiers: Asthma severity: mild Asthma persistence: intermittent Asthma complication type: unspecified Qualified Code(s): J45.20 - Mild intermittent asthma, uncomplicated; J45.20 - Mild intermittent asthma, uncomplicated; J45.20 - Mild intermittent asthma, uncomplicated (3) Atrial fibrillation Code(s): I48.91 - UNSPECIFIED ATRIAL FIBRILLATION Qualifiers: Atrial fibrillation type: persistent Qualified Code(s): I48.1 - Persistent atrial fibrillation; I48.1 - Persistent atrial fibrillation; I48.1 - Persistent atrial fibrillation; I48.1 - Persistent atrial fibrillation (4) Dyspnea Code(s): R06.00 - DYSPNEA, UNSPECIFIED Qualifiers: Dyspnea type: dyspnea on exertion Qualified Code(s): R06.09 - Other forms of dyspnea; R06.09 - Other forms of dyspnea (5) HTN (hypertension) Code(s): I10 - ESSENTIAL (PRIMARY) HYPERTENSION Qualifiers: Hypertension type: essential hypertension Qualified Code(s): I10 - Essential (primary) hypertension; I10 - Essential (primary) hypertension; I10 - Essential (primary) hypertension (6) Hyperthyroidism Code(s): E05.90 - THYROTOXICOSIS, UNSP WITHOUT THYROTOXIC CRISIS OR STORM (7) Diabetes mellitus Code(s): E11.9 - TYPE 2 DIABETES MELLITUS WITHOUT COMPLICATIONS Qualifiers: Diabetes mellitus type: type 2 Diabetes mellitus complication status: without complication Diabetes mellitus watermelon inspector insulin use: without custodial use Qualified Code(s): E11.9 - Type 2 diabetes mellitus without complications; E11.9 - Type 2 diabetes mellitus without complications; E11.9 - Type 2 diabetes mellitus without complications; E11.9 - Type 2 diabetes mellitus without complications (8) CAD (coronary artery disease) Code(s): I25.10 - ATHSCL HEART DISEASE OF [place] CORONARY ARTERY W/O ANG PCTRS Qualifiers: Coronary Disease-Associated Artery/Lesion type: [place] artery [place] vs. transplanted heart: [place] heart Associated angina: without angina Qualified Code(s): I25.10 - Atherosclerotic heart disease of [place] coronary artery without angina pectoris; I25.10 - Atherosclerotic heart disease of [place] coronary artery without angina pectoris; I25.10 - Atherosclerotic heart disease of [place] coronary artery without angina pectoris Assessment/Plan 1. Acute on chronic left ventricular diastolic failure 2. Uncontrolled hyperthyroidism with medication noncompliance 3. Persistent atrial fibrillation [id number] of 6 on NOAC 4. HTN/HCVD 5. Diabetes mellitus 6. History of reactive airway disease/bronchial asthma 7. History of gastro-esophageal reflux disease 8. Coronary artery disease angina pectoris PLAN: 1. Continue Furosemide with monitoring renal function and electrolytes 2. Continue Lopressor, Lisinopril and Eliquis at 5 mg bid 3. Continue methimazole 4. Ambulate Discharge planning Johann Cowan MD
[2017-08-25 10:10] VITALS: BP 120/64; PULSE 76; TEMP 98.2
[2017-08-25] MEDS: CEFTRIAXONE 1 GM in DEXTROSE 5%-WATER - 50 ML IVPB SCH (10:10)
[2017-08-25] MEDS: PANTOPRAZOLE 40 MG TABLET (FP) PO SCH (10:14)
[2017-08-25] MEDS: FUROSEMIDE 20 MG TABLET (FP) PO SCH (10:14)
[2017-08-25] MEDS: APIXABAN 5 MG TABLET PO SCH (10:14)
[2017-08-25] MEDS: predniSONE 20 MG TABLET (UD) PO SCH (10:14)
[2017-08-25] MEDS: LISINOPRIL 5 MG TABLET (FP) PO SCH (10:14)
[2017-08-25] MEDS: METOPROLOL TARTRATE 50 MG TABLET (FP) PO SCH (10:15)
[2017-08-25] MEDS: BRIMONIDINE TARTRATE 0.2% OPHTHALMIC 5 ML BOTTLE OU SCH (10:15)
[2017-08-25] MEDS: TIMOLOL 0.5% OPHTHALMIC SOL 5 ML BOTTLE OU SCH (10:15)
[2017-08-25] MEDS: TIOTROPIUM BROMIDE 18 MCG/INH (DEVICE W/ 5 CAPSULES) IH SCH (10:15)
--- NOTE | 2017-08-25 12:54 | DS ---
Physical Exam: SUBJECTIVE: Patient seen and examined OBJECTIVE: Vital Signs Period Temp Pulse Resp BP Sys/Ugarte Pulse Ox Last 24 Hr 97.3 F-98.7 F 71-95 14-20 111-154/62-87 92-94 PHYSICAL EXAM GENERAL: The patient is awake, alert, and fully oriented, in no acute distress. HEAD: Normal with no signs of trauma. EYES: PERRL, extraocular movements intact, sclera anicteric, conjunctiva clear. ENT: Ears normal, nares patent, oropharynx clear without exudates, moist mucous membranes. NECK: Trachea midline, full range of motion, supple. LUNGS: Breath sounds equal, clear to auscultation bilaterally, no wheezes, no crackles, no accessory muscle use. HEART: Regular rate and rhythm, S1, S2 without murmur, rub or gallop. ABDOMEN: Soft, nontender, nondistended, normoactive bowel sounds, no guarding, no rebound, no hepatosplenomegaly, no masses. EXTREMITIES: 2+ pulses, warm, well-perfused, no edema. NEUROLOGICAL: Cranial nerves II through XII grossly intact. Normal speech, gait not observed. PSYCH: Normal mood, normal affect. SKIN: Warm, dry, normal turgor, no rashes or lesions noted. LABS Laboratory Results - last 24 hr 08/24/17 05:10 Thyroid Peroxidase Ab 16 HOSPITAL COURSE: Date of Admission:08/23/17 Date of Discharge: 08/25/17 Discharge Summary Reason For Visit: CHEST PAIN Current Active Problems CAD (coronary artery disease) (Acute) Chest pain (Acute) Diabetes mellitus (Acute) Condition: Improved - Instructions Diet, Activity, Other Instructions: Please return to the ED with new, persistent, or worsening symptoms. Please follow-up with providers as indicated. You are being given an prescription to have blood work done (TSH, free T3, free T4). Please come to [facility] on 08/26/17 to have this blood work done. Follow-up with Dr. Ashley on Tuesday, 08/31 at 3:30pm for further management of your hyperthyroidism and to schedule an outpatient thyroid ultrasound. Your cat scan of your chest showed moderate mediastinal lymphadenopathy. Please follow-up with your primary care physician within 1 week to schedule a repeat cat scan of your chest in 4-6 weeks to assess for resolution of your lymphadenopathy. You have completed 3 days of Ceftriaxone for a UTI. Please follow-up with your primary care provider within 1 week to have a repeat urinalysis to assure UTI has resolved. Referrals: Efraín Fortune MD [Primary Care Provider] - 1 Week Anthony Samuel MD [Staff Physician] - 1 Week Rosibel Ashley MD [Staff Physician] - (Please follow-up with Dr. Ashley as scheduled on Tuesday08/31/17 at 3:30 pm. ) Disposition: HOME - Home Medications Comprehensive Discharge Medication List: Ambulatory Orders Acetaminophen [Pain Relief] 650 mg PO Q6H 09/13/16 Albuterol Sulfate Inhaler - [Ventolin HFA Inhaler -] 1 - 2 inh PO QID PRN Bimatoprost [Lumigan] 1 drop OU DAILY 04/09/17 Brimonidine Tartrate/Timolol [Combigan 0.2%-0.5% Eye Drops] 5 ml OU DAILY Apixaban [Eliquis -] 5 mg PO BID #60 tab 04/13/17 Metoprolol Tartrate [Lopressor -] 50 mg PO BID #60 tablet 04/13/17 Lisinopril [Zestril] 2.5 mg PO DAILY 07/04/17 Omeprazole 40 mg PO DAILY 07/04/17 Acetaminophen [Tylenol .Regular Strength -] 650 mg PO Q4H PRN #0 tablet Furosemide [Lasix] 20 mg PO DAILY #30 tablet 07/05/17 Albuterol 2.5/Ipratropium 0.5 [Duoneb -] 1 amp NEB Q4H PRN #120 amp 08/25/17 Methimazole [Tapazole -] 5 mg PO TID #90 tablet 08/25/17 Nebulizer [Aeroeclipse II] 1 each MC Q6H #1 each 08/25/17 Tiotropium [place] [Spiriva] 1 puff IH BID #1 inh 08/25/17 Tsh, Free T3, Free T4 0 ea NR ONCE #1 ea 08/25/17 Problem List - Problems (1) Chest pain Code(s): R07.9 - CHEST PAIN, UNSPECIFIED (2) Asthma Code(s): J45.909 - UNSPECIFIED ASTHMA, UNCOMPLICATED Qualifiers: Asthma severity: mild Asthma persistence: intermittent Asthma complication type: unspecified Qualified Code(s): J45.20 - Mild intermittent asthma, uncomplicated; J45.20 - Mild intermittent asthma, uncomplicated; J45.20 - Mild intermittent asthma, uncomplicated (3) Atrial fibrillation Code(s): I48.91 - UNSPECIFIED ATRIAL FIBRILLATION Qualifiers: Atrial fibrillation type: persistent Qualified Code(s): I48.1 - Persistent atrial fibrillation; I48.1 - Persistent atrial fibrillation; I48.1 - Persistent atrial fibrillation; I48.1 - Persistent atrial fibrillation (4) Atypical angina Code(s): I20.8 - OTHER FORMS OF ANGINA PECTORIS (5) CHF (congestive heart failure) Code(s): I50.9 - HEART FAILURE, UNSPECIFIED Qualifiers: Congestive heart failure type: unspecified congestive heart failure type Congestive heart failure chronicity: unspecified congestive heart failure chronicity Qualified Code(s): I50.9 - Heart failure, unspecified; I50.9 - Heart failure, unspecified; I50.9 - Heart failure, unspecified; I50.9 - Heart failure, unspecified (6) Dyspnea Code(s): R06.00 - DYSPNEA, UNSPECIFIED Qualifiers: Dyspnea type: dyspnea on exertion Qualified Code(s): R06.09 - Other forms of dyspnea; R06.09 - Other forms of dyspnea (7) Hyperthyroidism Code(s): E05.90 - THYROTOXICOSIS, UNSP WITHOUT THYROTOXIC CRISIS OR STORM
[2017-08-30 14:19] LABS: THYROID STIM IMMUNOGLOBULIN 51 % (0-139)
== END 2017-08-25 13:46 | disposition home or self-care (01) ==
LOC: JER 09:37 → JERBED 14:13 → J4W 16:01 → OBSVTOIN 08-24 15:21 → INTOOBSV 08-24 15:21
PROVIDERS: ADMIT Internal Medicine; ATTEND Registered Nurse
PROC: 3E033GC Introduction of Other Therapeutic Substance into Peripheral Vein, Percutaneous Approach (ICD-10-PCS; principal; 2017-08-23)
PROC: 3E03329 Introduction of Other Anti-infective into Peripheral Vein, Percutaneous Approach (ICD-10-PCS; 2017-08-23)
PROC: 3E0F7GC Introduction of Other Therapeutic Substance into Respiratory Tract, Via Natural or Artificial Opening (ICD-10-PCS; 2017-08-23)
DX: R07.9 Chest pain, unspecified (principal); I10 Essential (primary) hypertension; I25.10 Atherosclerotic heart disease of native coronary artery without angina pectoris; I48.1 Persistent atrial fibrillation; I50.33 Acute on chronic diastolic (congestive) heart failure; I45.10 Unspecified right bundle-branch block; E11.9 Type 2 diabetes mellitus without complications; E05.90 Thyrotoxicosis, unspecified without thyrotoxic crisis or storm; G20 Parkinson's disease; J45.21 Mild intermittent asthma with (acute) exacerbation; E01.0 Iodine-deficiency related diffuse (endemic) goiter; R50.9 Fever, unspecified; R30.0 Dysuria; R06.00 Dyspnea, unspecified; Z91.14 Patient's other noncompliance with medication regimen; Z79.01 Long term (current) use of anticoagulants
CPT/HCPCS: 36415; 71010-TC; 71275-TC; 80053; 81003; 81015; 83735; 83880; 84439; 84443; 84445; 84481; 84484; 85025; 85027; 85610; 86376; 87086; 87804; 93005; 93010; 93971-TC; 94640; 96374; 99284-25; G0378

== ENCOUNTER 2017-09-12 09:52 | Day surgery (SDC) | payer OTHER ==
[2017-09-09 13:02] VITALS: BMI 36.9
[2017-09-12] MEDS ORDERED: LIDOCAINE HCL/PF 2% SDV 5ML VIAL ONE (10:47)
[2017-09-12] MEDS ORDERED: PROPOFOL 20 ML ONE (10:47)
[2017-09-12] MEDS ORDERED: ETOMIDATE 20 MG/10 ML AMPUL IVPUSH ONE (10:47)
[2017-09-12] MEDS ORDERED: LIDOCAINE VISCOUS 2% ORAL/TOP 20 ML UNIT-DOSE CUP MM ONE (11:19)
[2017-09-12 11:48] VITALS: TEMP 97.5
[2017-09-12 12:34] VITALS: PULSE 72
[2017-09-12 13:44] VITALS: BP 145/84
--- NOTE | 2017-09-13 19:26 | EKG ---
Test Reason : Blood Pressure : / mmHG Vent. Rate : 081 BPM Atrial Rate : 081 BPM P-R Int : 228 ms QRS Dur : 150 ms QT Int : 438 ms P-R-T Axes : 039 -40 021 degrees QTc Int : 508 ms SINUS RHYTHM WITH SINUS ARRHYTHMIA WITH 1ST DEGREE A-V BLOCK LEFT AXIS DEVIATION RIGHT BUNDLE BRANCH BLOCK ABNORMAL ECG WHEN COMPARED WITH ECG OF 23-AUG-2017 10:11, SINUS RHYTHM HAS REPLACED ATRIAL FIBRILLATION QT HAS LENGTHENED REPEAT EKG IF CLINICALLY INDICATED Confirmed by PETER BAH MD ([id number]) on 09/13/2017 7:26:09 PM Referred By: Johann Cowan Confirmed By:PETER BAH MD
== END 2017-09-12 13:44 | disposition home or self-care (01) ==
LOC: JOR 09:52 → JASU-ENDO 09:52
PROVIDERS: ATTEND Internal Medicine Cardiovascular Disease
PROC: 5A2204Z Restoration of Cardiac Rhythm, Single (ICD-10-PCS; 2017-09-12)
PROC: B246ZZ4 Ultrasonography of Right and Left Heart, Transesophageal (ICD-10-PCS; principal; 2017-09-12 11:00)
DX: I48.91 Unspecified atrial fibrillation (principal)
CPT/HCPCS: 93005; 93010; 93312; 93325

== ENCOUNTER 2017-10-12 15:49 | Observation (INO) | payer OTHER ==
--- NOTE | 2017-10-12 15:54 | PDOC ---
Rapid Medical Evaluation Time Seen by Provider: 10/12/17 15:51 Medical Evaluation: Allergies Allergy/AdvReac Type Severity Reaction Status Date / Time No Known Allergies Allergy Verified 08/23/17 09:41 10/12/17 15:52 I have performed a brief in person evaluation of this patient. The patient presents with chief complaint of : dysuria, back pain and hematuria , neg nvd or fever. no history of DM. Pertinent PE findings: Aox3 vitals stable I have ordered the following: UA, urine culture The patient will proceed to the ER for further evaluation.
[2017-10-12] MEDS ORDERED: morphine CARPU-JECT 4 MG/1 ML DISP.SYRIN IVPUSH ONE (16:37)
[2017-10-12 16:41] LABS: URINE APPEARANCE CLEAR; URINE BILIRUBIN 1+ (NEGATIVE); URINE BLOOD 3+ (NEGATIVE); URINE COLOR RED; URINE GLUCOSE (UA) NEGATIVE (NEGATIVE); URINE KETONE NEGATIVE (NEGATIVE)
[2017-10-12 16:44] LABS: URINE NITRITE POSITIVE (NEGATIVE); URINE PROTEIN 2+ (NEGATIVE)
[2017-10-12 16:46] LABS: URINE BACTERIA FEW /hpf (NONE SEEN); URINE RBC 7736 /hpf (0-3); URINE WBC 356 /hpf (3-5); YEAST RARE
[2017-10-12] MEDS ORDERED: morphine SULFATE 4 MG/ML VIAL ONE (16:47)
[2017-10-12] MEDS ORDERED: ONDANSETRON 4 MG/2 ML VIAL ONE ×3 (16:50→21:48)
[2017-10-12] MEDS ORDERED: ONDANSETRON 4 MG/2 ML VIAL IVPUSH ONE ×2 (16:53→19:30)
--- NOTE | 2017-10-12 16:59 | PDOC ---
History of Present Illness - General Chief Complaint: Pain, Acute Stated Complaint: BACK PAIN/URINARY PROBLEM Time Seen by Provider: 10/12/17 15:51 Past History - Past Medical History Allergies/Adverse Reactions: Allergies Allergy/AdvReac Type Severity Reaction Status Date / Time No Known Allergies Allergy Verified 10/12/17 15:56 Home Medications: Ambulatory Orders Albuterol Sulfate Inhaler - [Ventolin HFA Inhaler -] 1 - 2 inh PO QID PRN Bimatoprost [Lumigan] 1 drop OU DAILY 04/09/17 Brimonidine Tartrate/Timolol [Combigan 0.2%-0.5% Eye Drops] 5 ml OU DAILY Apixaban [Eliquis -] 5 mg PO BID #60 tab 04/13/17 Lisinopril [Zestril] 2.5 mg PO DAILY 07/04/17 Acetaminophen [Tylenol .Regular Strength -] 650 mg PO Q4H PRN #0 tablet Furosemide [Lasix] 20 mg PO DAILY #30 tablet 07/05/17 Methimazole [Tapazole -] 5 mg PO TID #90 tablet 08/25/17 Tiotropium [place] [Spiriva] 1 puff IH BID #1 inh 08/25/17 Aspirin [Ecotrin] 81 mg PO DAILY 09/09/17 Calcium Carb/Vitamin D3/Vit K1 [Calcium + D Soft Chewable Tab] 1 each PO WEEKLY 09/12/17 Cholecalciferol (Vitamin D3) [Vitamin D -] 50,000 unit PO WEEKLY 09/12/17 Metoprolol Tartrate [Lopressor -] 50 mg PO ASDIR #60 tablet 09/12/17 Nebulizer [Aeroeclipse II] 1 each MC Q6H PRN 09/12/17 Omeprazole 40 mg PO DAILY 09/12/17 Asthma: Yes Cardiac Disorders: Yes (A-FIB) COPD: No Diabetes: Yes GI Disorders: Yes (gerd) HTN: Yes Hypercholesterolemia: Yes Thyroid Disease: Yes (hyperthyroid) - Suicide/Smoking/Psychosocial Hx Smoking History: Unknown if ever smoked Have you smoked in the past 12 months: No Number of Cigarettes Smoked Daily: 0 Hx Alcohol Use: No Drug/Substance Use Hx: No Substance Use Type: None Hx Substance Use Treatment: No *Physical Exam - Vital Signs Last Vital Signs Temp Pulse Resp BP Pulse Ox 99.2 F 83 18 164/78 93 L 10/12/17 15:57 10/12/17 15:57 10/12/17 15:57 10/12/17 15:57 10/12/17 15:57 ED Treatment Course - LABORATORY CBC & Chemistry Diagram: 10/12/17 16:37 10/12/17 16:37 - ADDITIONAL ORDERS Additional order review: Laboratory Results 10/12/17 16:35 Urine Color Red Urine Appearance Clear Urine pH 8.0 D Ur Specific [place] 1.020 Urine Protein 2+ H D Urine Glucose (UA) Negative Urine Ketones Negative Urine Blood 3+ H Urine Nitrite Positive D Urine Bilirubin 1+ H Urine Urobilinogen 1.0 Urine Bacteria Few Urine Yeast Rare - RADIOLOGY Radiology Studies Ordered: Category Date Time Status ABDOMEN & PELVIS CT W/O CONTR [CT] Stat CT Scan 10/12/17 16:31 Ordered - Medications Given in the ED: ED Medications Discontinued Medications Generic Name Dose Route Start Last Admin Trade Name Freq PRN Reason Stop Dose Admin Morphine Sulfate 4 mg 10/12/17 16:37 10/12/17 16:53 Morphine Injection - IVPUSH 10/12/17 16:38 4 mg ONCE ONE Administration Ondansetron HCl 4 mg 10/12/17 16:53 10/12/17 16:53 Zofran Injection IVPUSH 10/12/17 16:54 4 mg NOW ONE Administration *DC/Admit/Observation/Transfer Diagnosis at time of Disposition: Vomiting Urinary tract infection Qualifiers: Urinary tract infection type: acute cystitis Hematuria presence: without hematuria Qualified Code(s): N30.00 - Acute cystitis without hematuria - Discharge Dispostion Condition at time of disposition: Stable Admit: Yes - Referrals Referrals: Efraín Fortune MD [Primary Care Provider] - Eliecer Marin MD [Staff Physician] - Malcolm Alexandra MD [Staff Physician] - Lopez Torres MD [Staff Physician] - - Patient Instructions Printed Discharge Instructions: Acute Cystitis, DI for Hematuria Additional Instructions: Please take the antibiotics as prescribed. You may take two 500mg tablets of Tylenol every 6 hours as needed for pain. Follow up with the urologist within 1 week. Your urine analysis had blood in it which may be a sign of cancer and requires follow-up with a urologist within 1 week for further workup. Return to the emergency department if you have any new, worsening or concerning symptoms. Print Language: CHINESE - Post Discharge Activity - Attestations Physician Attestion: 10/12/17 19:43 I, Dr. Lea Ashby MD, attest that this document has been prepared under my direction and personally reviewed by me in its entirety. I further attest, that it accurately reflects all work, treatment, procedures and medical decision -making performed by me.
[2017-10-12 17:03] LABS: BASOPHIL 1.3 % (0-2.0); EOSINOPHIL 1.5 % (0-4.5); MCH 27.3 pg (25.7-33.7); MCHC 33.3 g/dl (32.0-36.0); MEAN PLT VOLUME 8.6 fl (7.5-11.1); NEUTROPHILS 73.4 % (42.8-82.8); PLATELET COUNT 184 K/MM3 (134-434); RDW 15.1 % (11.6-15.6)
[2017-10-12 17:35] LABS: ALBUMIN 3.4 g/dl (3.4-5.0); ANION GAP 4 (8-16); CO2 30 mmol/L (21-32); CREATININE 0.6 mg/dL (0.55-1.02); GLUCOSE,RANDOM 121 mg/dL (74-106); SGPT/ALT 30 U/L (12-78)
[2017-10-12 17:37] LABS: ALK PHOS 93 U/L (45-117); BILIRUBIN,TOTAL 0.3 mg/dL (0.2-1.0); TOT PROT 6.7 g/dl (6.4-8.2)
[2017-10-12 17:39] LABS: MAGNESIUM 2.1 mg/dL (1.8-2.4); SGOT/AST 29 U/L (15-37)
[2017-10-12] MEDS ORDERED: CEPHALEXIN MONOHYDRATE 500 MG CAPSULE (UD) PO ONE (18:51)
[2017-10-12] MEDS ORDERED: CEPHALEXIN MONOHYDRATE 250 MG CAPSULE (FP) ONE (18:57)
[2017-10-12 19:10] LABS: URINE LEUK ESTERASE TRACE (NEGATIVE)
--- NOTE | 2017-10-12 19:36 | HP ---
CHIEF COMPLAINT: PO intolerance, acute cystitis PCP: Dr. Fortune HISTORY OF PRESENT ILLNESS: 82yo F with history of asthma, a. fib (on Eliquis and s/p cardioversion 3 weeks ago), dCHF, HTN, hyperthyroidism, DMII and parkinson's disease who presented to the ER with subjective fever, dysuria, and polyuria. Daughter at bedside translated stating that pt reports that pt was given Kefflex for a UTI which caused the pt to become nauseous and have emesis noted to be nonbloody, nonbilious. Pt also reports that she originally had suprapubic pain, however pt recently received morphine which alleviated the pain. Pt denies chills, headache , current nausea, cp/discomfort, palpitations, and diarrhea/constipation. ER course was notable for: (1) Urine culture pending; UA consistent with UTI (2) Morphine x1 dose (3) Zofran 4mg x1 dose Recent Travel: [place] early August PAST MEDICAL HISTORY: Asthma Atrial Fibrillation (on Eliquis, s/p cardioversion 3 weeks ago) GERD HTN Parkinson's Hyperthyroidism HLD DM II PAST SURGICAL HISTORY: Cardioversion/DON 3 weeks ago Hysterectomy in Social History: Smoking: None Alcohol: None Drugs: None Family History: Deferred Allergies No Known Allergies Allergy (Verified 10/12/17 15:56) HOME MEDICATIONS: Home Medications Medication Instructions Recorded Albuterol Sulfate Inhaler - 1 - 2 inh PO QID PRN 09/13/16 [Ventolin HFA Inhaler -] Bimatoprost [Lumigan] 1 drop OU DAILY 04/09/17 Brimonidine Tartrate/Timolol 5 ml OU DAILY 04/09/17 [Combigan 0.2%-0.5% Eye Drops] Apixaban [Eliquis -] 5 mg PO BID #60 tab 04/13/17 Lisinopril [Zestril] 2.5 mg PO DAILY 07/04/17 Acetaminophen [Tylenol .Regular 650 mg PO Q4H PRN #0 tablet 07/05/17 Strength -] Furosemide [Lasix] 20 mg PO DAILY #30 tablet 07/05/17 Methimazole [Tapazole -] 5 mg PO TID #90 tablet 08/25/17 Tiotropium [place] [Spiriva] 1 puff IH BID #1 inh 08/25/17 Aspirin [Ecotrin] 81 mg PO DAILY 09/09/17 Calcium Carb/Vitamin D3/Vit K1 1 each PO WEEKLY 09/12/17 [Calcium + D Soft Chewable Tab] Cholecalciferol (Vitamin D3) 50,000 unit PO WEEKLY 09/12/17 [Vitamin D -] Metoprolol Tartrate [Lopressor -] 50 mg PO ASDIR #60 tablet 09/12/17 Nebulizer [Aeroeclipse II] 1 each MC Q6H PRN 09/12/17 Omeprazole 40 mg PO DAILY 09/12/17 REVIEW OF SYSTEMS CONSTITUTIONAL: Present: Fever Absent: chills, diaphoresis, generalized weakness, malaise, loss of appetite, weight change HEENT: Absent: rhinorrhea, nasal congestion, throat pain, throat swelling, difficulty swallowing, mouth swelling, ear pain, eye pain, visual changes CARDIOVASCULAR: Absent: chest pain, syncope, palpitations, irregular heart rate, lightheadedness , peripheral edema RESPIRATORY: Absent: cough, shortness of breath, dyspnea with exertion, orthopnea, wheezing, stridor, hemoptysis GASTROINTESTINAL: Present: Suprapubic pain Absent: abdominal distension, nausea, vomiting, diarrhea, constipation, melena, hematochezia GENITOURINARY: Present: Dysuria, polyuria Absent: urgency, hesitancy, hematuria, flank pain, genital pain MUSCULOSKELETAL: Absent: myalgia, arthralgia, joint swelling, back pain, neck pain SKIN: Absent: rash, itching, pallor HEMATOLOGIC/IMMUNOLOGIC: Absent: easy bleeding, easy bruising, lymphadenopathy, frequent infections ENDOCRINE: Absent: unexplained weight gain, unexplained weight loss, heat intolerance, cold intolerance NEUROLOGIC: Absent: headache, focal weakness or paresthesias, dizziness, unsteady gait, seizure, mental status changes, bladder or bowel incontinence PSYCHIATRIC: Absent: anxiety, depression, suicidal or homicidal ideation, hallucinations. PHYSICAL EXAMINATION Vital Signs - 24 hr 10/12/17 15:57 Temperature 99.2 F Pulse Rate 83 Respiratory 18 Rate Blood Pressure 164/78 O2 Sat by Pulse 93 L Oximetry (%) GENERAL: NAD, alert, awake HEENT: No JVD, Normal mucous membranes with normal structures of the mouth HEART: RRR, normal S1 and S2 without murmur ABDOMEN: Soft, nontender including no suprapubic pain currently, nondistended, normoactive bowel sounds, no guarding. No hepatomegaly MUSCULOSKELETAL: No CVA tenderness. EXTREMITIES: 2+ DP pulses, No peripheral edema. No calf tenderness NEUROLOGICAL: Alert and oriented x3, baseline tremor with and without intention. Normal speech. Gait not observed PSYCHIATRIC: Cooperative. Good eye contact. Appropriate mood and affect. SKIN: Warm, no rashes or lesions noted, Cap refill <2sec Laboratory Results - last 24 hr 10/12/17 10/12/17 10/12/17 16:35 16:37 16:37 WBC 9.0 D RBC 4.39 Hgb 12.0 Hct 36.0 MCV 82.0 MCH 27.3 MCHC 33.3 RDW 15.1 Plt Count 184 MPV 8.6 Neutrophils % 73.4 D Lymphocytes % 14.8 D Monocytes % 9.0 Eosinophils % 1.5 D Basophils % 1.3 D Sodium 139 Potassium 4.3 Chloride 105 Carbon Dioxide 30 Anion Gap 4 L BUN 14 Creatinine 0.6 Creat Clearance w eGFR > 60 Random Glucose 121 H D Calcium 8.0 L Magnesium 2.1 Total Bilirubin 0.3 D AST 29 D ALT 30 Alkaline Phosphatase 93 Total Protein 6.7 Albumin 3.4 Urine Color Red Urine Appearance Clear Urine pH 8.0 D Ur Specific [place] 1.020 Urine Protein 2+ H D Urine Glucose (UA) Negative Urine Ketones Negative Urine Blood 3+ H Urine Nitrite Positive D Urine Bilirubin 1+ H Urine Urobilinogen 1.0 Ur Leukocyte Esterase Trace H Urine Bacteria Few Urine Yeast Rare ASSESSMENT/PLAN: 82yo F presents to the ER with suprapubic pain, subjective fevers, and dysuria who was found to have acute cystitis and could not tolerate PO Keflex. 1) Acute cystitis --Afebrile, WBC WNL --Rocephin 1gm daily --Tylenol PRN for any developing fevers or pain --Qtc noted to be elongated on previous visit at 508; will repeat EKG --Phenergan 12.5 q6h PRN for nausea 2) PO intolerance --Anti-emetic as above --Will see if pt is tolerating PO in morning and if so can go home 3) Hyperthyroidism --Continue home Methimazole 4) Atrial fibrillation --Pt with regular rhythm currently --Pt to have hematuria among UA, will hold Eliquis for now --Toprol XL 50mg PO BID 5) diastolic CHF --Lasix 20mg PO qdaily continue --Lisinopril 2.5 PO daily --Toprol XL 50mg PO BID 6) Asthma --Continue home Spiriva FEN: Fluids: Avoid fluids due to history of dCHF and euvolemia Electrolyte abnormalities: None currently Nutrition: Low-sodium diabetic diet PPX DVT - Pt on eliquis however holding due to hematuria; encourage early ambulation; reassess in morning GI - not indicated currently Dispo: Place in observation; if pt tolerating PO tomorrow AM can d/c home with oral antibiotics Case discussed with medical team Malcolm Garduno DO - Internal Medicine PGY-1 Visit type - Emergency Visit Emergency Visit: Yes ED Registration Date: 10/12/17 Care time: The patient presented to the Emergency Department on the above date and was hospitalized for further evaluation of their emergent condition. - New Patient This patient is new to me today: Yes Date on this admission: 10/12/17 - Critical Care Critical Care patient: No
[2017-10-12] MEDS ORDERED: ACETAMINOPHEN 325 MG TABLET (FP) PO PRN (20:01)
[2017-10-12] MEDS ORDERED: METOPROLOL TARTRATE 50 MG TABLET (FP) PO SCH (20:15)
[2017-10-12] MEDS ORDERED: PROMETHAZINE HCL 25 MG TABLET PO PRN (20:22)
[2017-10-12] MEDS ORDERED: ONDANSETRON 4 MG/2 ML VIAL IVPUSH STA (21:39)
[2017-10-12] MEDS ORDERED: METOPROLOL TARTRATE 50 MG TABLET (FP) ONE (21:48)
[2017-10-12] MEDS ORDERED: APIXABAN 5 MG TABLET PO SCH (22:00)
[2017-10-12] MEDS ORDERED: TIOTROPIUM BROMIDE 18 MCG/INH (DEVICE W/ 5 CAPSULES) IH SCH (22:00)
[2017-10-12] MEDS: METOPROLOL TARTRATE 50 MG TABLET (FP) PO SCH (22:12)
[2017-10-12] MEDS: METHIMAZOLE 5 MG TABLET (FP) PO SCH (22:36)
--- NOTE | 2017-10-12 22:49 | PN ---
Teaching Attending Note Name of Resident: Malcolm Garduno ATTENDING PHYSICIAN STATEMENT I saw and evaluated the patient. I reviewed the resident's note and discussed the case with the resident. I agree with the resident's findings and plan as documented. SUBJECTIVE: PCP: Dr. Fortune HISTORY OF PRESENT ILLNESS: 82yo F with history of recurrent UTI presents accompanied by family members with c/o lower abdominal pain and dysuria. ROS otherwise negative In the ED forund to have positive UA , CT scan was suggestive of cystitis. She was treated with PO Keflex however was not able to tolerate it ( had an episode of vomiting ) PAST MEDICAL HISTORY: Asthma Atrial Fibrillation (on Eliquis, s/p cardioversion 3 weeks ago) GERD HTN Parkinson's Hyperthyroidism HLD DM II OBJECTIVE: Vital Signs Temperature 98.9 F 10/12/17 19:59 Pulse Rate 120 H 10/12/17 19:59 Respiratory Rate 18 10/12/17 19:59 Blood Pressure 155/68 10/12/17 19:59 O2 Sat by Pulse Oximetry (%) 100 10/12/17 19:59 CBC, BMP 10/12/17 16:37 10/12/17 16:37 Urine Test Results Urine Color Red 10/12/17 16:35 Urine Appearance Clear 10/12/17 16:35 Urine pH 8.0 (5.0-8.0) D 10/12/17 16:35 Ur Specific [place] 1.020 (1.001-1.035) 10/12/17 16:35 Urine Protein 2+ (NEGATIVE) H D 10/12/17 16:35 Urine Glucose (UA) Negative (NEGATIVE) 10/12/17 16:35 Urine Ketones Negative (NEGATIVE) 10/12/17 16:35 Urine Blood 3+ 10/12/17 16:35 Urine Nitrite Positive (NEGATIVE) D 10/12/17 16:35 Urine Bilirubin 1+ 10/12/17 16:35 Ur Leukocyte Esterase Trace 10/12/17 16:35 Urine Bacteria Few /hpf 10/12/17 16:35 CT abdomen suggestive of cystitis ASSESSMENT AND PLAN: 1. Cystitis - acute vs chronic . Might be related to chronic urinary retention in the setting of Parkinsons disease. Was not able to tolerate oral antibiotics - check post void residual / bladde US - ceftriaxone IV - diet trial - if able to tolerate PO antibiotics may d/c in am - follow with Urology as O/P 2.
[2017-10-12] MEDS: APIXABAN 5 MG TABLET PO SCH (23:50)
[2017-10-13 01:31] VITALS: BMI 36.7
[2017-10-13] MEDS: METHIMAZOLE 5 MG TABLET (FP) PO SCH ×3 (06:35→21:06)
[2017-10-13 07:57] LABS: ANION GAP 6 (8-16); CALCIUM 8.1 mg/dL (8.5-10.1); CO2 31 mmol/L (21-32); CREATININE 0.7 mg/dL (0.55-1.02); GLUCOSE,RANDOM 80 mg/dL (74-106); MAGNESIUM 2.2 mg/dL (1.8-2.4); PHOSPHOROUS 4.1 mg/dL (2.5-4.9)
[2017-10-13 08:22] LABS: MCH 26.7 pg (25.7-33.7); MCHC 32.6 g/dl (32.0-36.0); MEAN CELL VOLUME 81.9 fl (80-96); MEAN PLT VOLUME 8.7 fl (7.5-11.1); PLATELET COUNT 187 K/MM3 (134-434); RDW 14.8 % (11.6-15.6); WHITE BLOOD COUNT 8.9 K/mm3 (4.0-10.0)
[2017-10-13] MEDS ORDERED: SULFAMETHOXAZOLE/TRIMETHOPRIM 800MG/160MG D.S. TABLET PO SCH (09:00)
[2017-10-13] MEDS ORDERED: PT OWN MED DRAWER 7, Y5N ONE ×4 (09:18→21:03)
[2017-10-13] MEDS: FUROSEMIDE 20 MG TABLET (FP) PO SCH (09:22)
[2017-10-13] MEDS: PANTOPRAZOLE 40 MG TABLET (FP) PO SCH (09:22)
[2017-10-13] MEDS: METOPROLOL TARTRATE 50 MG TABLET (FP) PO SCH ×2 (09:22→21:06)
[2017-10-13] MEDS: LISINOPRIL 5 MG TABLET (FP) PO SCH (09:23)
[2017-10-13] MEDS: TIOTROPIUM BROMIDE 18 MCG/INH (DEVICE W/ 5 CAPSULES) IH SCH (09:24)
[2017-10-13] MEDS ORDERED: LEVOFLOXACIN 750 MG IVPB 750 MG/150 ML BAG IVPB ONE (09:42)
--- NOTE | 2017-10-13 09:46 | PN ---
Progress Note (short form) - Note Progress Note: Subjective: The patient was seen and examined at the bedside, she has no complaints at this time Awaiting urine culture Will need TSH rechecked in 2 days Current Medications Generic Name Dose Route Start Last Admin Trade Name [place] PRN Reason Stop Dose Admin Acetaminophen 650 mg 08/23/17 14:19 Tylenol - PO Q4H PRN FEVER OR PAIN Albuterol/Ipratropium 1 amp 08/23/17 15:12 Duoneb - NEB Q4H PRN SHORTNESS OF BREATH Apixaban 5 mg 08/23/17 22:00 08/24/17 10:18 Eliquis - PO 5 mg BID SRIKANTH Administration Brimonidine Tartrate 1 drop 08/24/17 10:00 08/24/17 10:24 Alphagan 0.2% - OU 1 drop DAILY SRIKANTH Administration Furosemide 20 mg 08/24/17 10:00 08/24/17 10:18 Lasix - PO 20 mg DAILY SRIKANTH Administration Ceftriaxone Sodium 1 gm/ 50 mls @ 100 mls/hr 08/23/17 16:04 08/24/17 10:24 Dextrose IVPB 100 mls/hr DAILY SRIKANTH Administration Latanoprost 1 drop 08/23/17 22:00 08/23/17 22:56 Xalatan 0.005% Eye Drops - OU 1 drop HS SRIKANTH Administration Lisinopril 2.5 mg 08/24/17 10:00 08/24/17 10:17 Prinivil PO 2.5 mg DAILY SRIKANTH Administration Methimazole 5 mg 08/23/17 22:00 08/24/17 14:33 Tapazole - PO 5 mg TID SRIKANTH Administration Metoprolol Tartrate 50 mg 08/23/17 22:00 08/24/17 10:18 Lopressor - PO 50 mg BID SRIKANTH Administration Pantoprazole Sodium 40 mg 08/24/17 10:00 08/24/17 10:18 Protonix - PO 40 mg DAILY SRIKANTH Administration Prednisone 50 mg 08/24/17 10:00 08/24/17 10:17 Deltasone - PO 50 mg DAILY SRIKANTH Administration Timolol [place] 1 drop 08/24/17 10:00 08/24/17 10:25 Timoptic 0.5% OU 1 drop DAILY SRIKANTH Administration Tiotropium [place] 1 puff 08/23/17 22:00 08/24/17 10:24 Spiriva - IH 1 puff BID SRIKANTH Administration Objective: Vital Signs Period Temp Pulse Resp BP Sys/Ugarte Pulse Ox Last 24 Hr 97.4 F-98.7 F 82-94 16-18 114-136/62-72 95-95 Physical Exam: GENERAL: Awake, alert, and fully oriented, in no acute distress. HEAD: Tremor. No signs of trauma. EYES: Pupils equal, round and reactive to light, sclera anicteric, conjunctiva clear. No lid lag. EARS, NOSE, THROAT: Ears normal, nares patent, oropharynx clear without exudates. Moist mucous membranes. NECK: Enlarged thyroid. LUNGS: B/l end expiratory wheezing. HEART: Irregular rate and rhythm, S1S2 ABDOMEN: Soft, nontender, not distended, normoactive bowel sounds MUSCULOSKELETAL: Normal range of motion at all joints. No bony deformities or tenderness. No CVA tenderness. UPPER EXTREMITIES: 2+ pulses, warm, well-perfused. No cyanosis. No clubbing. No peripheral edema. LOWER EXTREMITIES: 2+ pulses, warm, well-perfused. No calf tenderness. No peripheral edema. NEUROLOGICAL: Normal speech. Gait not observed PSYCHIATRIC: Cooperative. Good eye contact. Appropriate mood and affect. SKIN: Warm, dry, normal turgor, no rashes or lesions noted, normal capillary refill. CBCD WBC 4.0 K/mm3 (4.0-10.0) 08/24/17 05:10 RBC 4.72 M/mm3 (3.60-5.2) 08/24/17 05:10 Hgb 12.5 GM/dL (10.7-15.3) 08/24/17 05:10 Hct 39.0 % (32.4-45.2) 08/24/17 05:10 MCV 82.8 fl (80-96) 08/24/17 05:10 MCHC 32.1 g/dl (32.0-36.0) 08/24/17 05:10 RDW 14.6 % (11.6-15.6) 08/24/17 05:10 Plt Count No Result Required. 08/24/17 05:10 MPV 9.2 fl (7.5-11.1) D 08/24/17 05:10 CMP Sodium 141 mmol/L (136-145) 08/24/17 05:10 Potassium 4.8 mmol/L (3.5-5.1) 08/24/17 05:10 Chloride 105 mmol/L (98-107) 08/24/17 05:10 Carbon Dioxide 28 mmol/L (21-32) 08/24/17 05:10 Anion Gap 8 (8-16) 08/24/17 05:10 BUN 18 mg/dL (7-18) D 08/24/17 05:10 Creatinine 0.6 mg/dL (0.55-1.02) 08/24/17 05:10 Creat Clearance w eGFR > 60 (>60) 08/24/17 05:10 Random Glucose 118 mg/dL (74-106) H 08/24/17 05:10 Calcium 8.8 mg/dL (8.5-10.1) 08/24/17 05:10 Total Bilirubin 0.4 mg/dL (0.2-1.0) D 08/24/17 05:10 AST 14 U/L (15-37) L D 08/24/17 05:10 ALT 19 U/L (12-78) D 08/24/17 05:10 Alkaline Phosphatase 76 U/L (45-117) 08/24/17 05:10 Total Protein 6.4 g/dl (6.4-8.2) 08/24/17 05:10 Albumin 3.2 g/dl (3.4-5.0) L 08/24/17 05:10 CARDIAC ENZYMES Creatine Kinase 48 IU/L (26-192) 08/23/17 21:10 Troponin I < 0.02 ng/ml (0.00-0.05) 08/23/17 21:10 Assessment: This is an 82 year old female with PMHx of diastolic heart failure, a.fib (on Eliquis), HTN, hyperthyroidism (non-compliant with Methimazole), asthma, and parkinson's disease who presented shortness of breath. Plan: 1) ID: UTI - Vomited after taking Keflex last night. Tried to start Bactrim this AM after breakfast but the patient is refusing to take it for fear of vomiting again. Will give Levaquin IVPB and monitor (Qtc 480) - Awaiting urine culture - Hematuria likely 2/2 cystitis, Hgb stable, continue to monitor, will need outpatient UA to assess for resolution of hematuria once treatment for UTI completed - Will give Levaquin once and if improves, will discharge this afternoon on oral bactrim 2) Endocrinology: Severe Hyperthyroidism - TSH 07/2017 was <0.01 - Continue Methimazole - F/u TSH 3) Pulmonary: Asthma - Continue spiriva Moderate mediastinal lymphadenopathy - As evidence on chest CT from 07/2017 - Will follow-up with daughter to see if patient had outpatient chest CT to assess lymphadenopathy 4) Cardiology: Chronic diastolic heart failure - Continue Lasix - Continue Lopressor - Continue Lisinopril Chronic A.fib - Continue Eliquis - Rate controlled 5) F/E/N: - Sodium controlled diet - Monitor electrolytes 6) Prophylaxis: - OOB ambulating - On Eliquis 7) Dispo: - Once tolerating po antibiotics CODE STATUS: FULL CODE Visit type - Emergency Visit Emergency Visit: Yes ED Registration Date: 10/12/17 Care time: The patient presented to the Emergency Department on the above date and was hospitalized for further evaluation of their emergent condition. - New Patient This patient is new to me today: Yes Date on this admission: 10/13/17 - Critical Care Critical Care patient: No
[2017-10-13] MEDS ORDERED: CEFTRIAXONE 1 G/50 ML PREMIX 50 ML IVPB SCH (10:00)
[2017-10-13] MEDS ORDERED: LEVOFLOXACIN 500 MG IVPB 500 MG/100 ML BAG IVPB ONE (10:15)
[2017-10-13] MEDS: APIXABAN 5 MG TABLET PO SCH ×2 (10:33→21:06)
[2017-10-13 10:42] LABS: URINE APPEARANCE CLOUDY; URINE BILIRUBIN NEGATIVE (NEGATIVE); URINE BLOOD 3+ (NEGATIVE); URINE COLOR YELLOW; URINE GLUCOSE (UA) NEGATIVE (NEGATIVE); URINE KETONE NEGATIVE (NEGATIVE); URINE NITRITE NEGATIVE (NEGATIVE); URINE UROBILINOGEN NEGATIVE mg/dL (0.2-1.0)
[2017-10-13 10:49] LABS: URINE PROTEIN 1+ (NEGATIVE)
[2017-10-13 11:14] LABS: URINE MUCUS RARE; URINE RBC 401 /hpf (0-3); URINE WBC 441 /hpf (3-5)
[2017-10-13 13:00] LABS: URINE LEUK ESTERASE 3+ (NEGATIVE)
--- NOTE | 2017-10-13 22:09 | EKG ---
Test Reason : Blood Pressure : / mmHG Vent. Rate : 063 BPM Atrial Rate : 063 BPM P-R Int : 220 ms QRS Dur : 156 ms QT Int : 480 ms P-R-T Axes : 039 -15 013 degrees QTc Int : 491 ms SINUS RHYTHM WITH 1ST DEGREE A-V BLOCK WITH OCCASIONAL PREMATURE VENTRICULAR COMPLEXES AND PREMATURE ATRIAL COMPLEXES RIGHT BUNDLE BRANCH BLOCK ABNORMAL ECG WHEN COMPARED WITH ECG OF 12-SEP-2017 11:55, PREMATURE VENTRICULAR COMPLEXES ARE NOW PRESENT PREMATURE ATRIAL COMPLEXES ARE NOW PRESENT Confirmed by OFELIA LUTZ MD ([id number]) on 10/13/2017 10:08:55 PM Referred By: Nicholas DIAZ Confirmed By:OFELIA LUTZ MD
[2017-10-14 05:38] VITALS: TEMP 98.2
[2017-10-14] MEDS: METHIMAZOLE 5 MG TABLET (FP) PO SCH (06:08)
[2017-10-14] MEDS ORDERED: PT OWN MED DRAWER 7, Y5N ONE (08:57)
[2017-10-14] MEDS: APIXABAN 5 MG TABLET PO SCH (08:59)
[2017-10-14] MEDS: FUROSEMIDE 20 MG TABLET (FP) PO SCH (08:59)
[2017-10-14] MEDS: LISINOPRIL 5 MG TABLET (FP) PO SCH (08:59)
[2017-10-14] MEDS: TIOTROPIUM BROMIDE 18 MCG/INH (DEVICE W/ 5 CAPSULES) IH SCH (09:00)
[2017-10-14] MEDS ORDERED: LEVOFLOXACIN 500 MG IVPB 500 MG/100 ML BAG IVPB ONE (10:00)
--- NOTE | 2017-10-14 10:20 | DS ---
Physical Examination Vital Signs: Vital Signs Temperature 98.2 F 10/14/17 05:30 Pulse Rate 56 L 10/14/17 05:30 Respiratory Rate 18 10/14/17 05:30 Blood Pressure 115/48 10/14/17 05:30 O2 Sat by Pulse Oximetry (%) 100 10/13/17 22:00 Labs: CBC, BMP 10/13/17 06:50 10/13/17 06:50 Discharge Summary Reason For Visit: VOMITING Current Active Problems Urinary tract infection (Acute) Vomiting (Acute) Hospital Course: Instructed the daughter that Rx for Levaquin will be sent to [facility] Condition: Improved - Instructions Diet, Activity, Other Instructions: Please return to the ED with new, persistent, or worsening symptoms. Please follow-up with your primary care provider as indicated. Referrals: Fredrick Montiel MD [Staff Physician] - (Please follow-up with pulmonary for your outpatient CT scan to assess your lymphadenopathy) Efraín Fortune MD [Primary Care Provider] - (Please follow-up with your primary care provider on Tuesday, 10/17 to have a repeat urinalysis (to assure blood in urine has resolved), and to have an EKG done to check your Qtc. ) - Home Medications Comprehensive Discharge Medication List: Ambulatory Orders Albuterol Sulfate Inhaler - [Ventolin HFA Inhaler -] 1 - 2 inh PO QID PRN Bimatoprost [Lumigan] 1 drop OU DAILY 04/09/17 Brimonidine Tartrate/Timolol [Combigan 0.2%-0.5% Eye Drops] 5 ml OU DAILY Apixaban [Eliquis -] 5 mg PO BID #60 tab 04/13/17 Lisinopril [Zestril] 2.5 mg PO DAILY 07/04/17 Acetaminophen [Tylenol .Regular Strength -] 650 mg PO Q4H PRN #0 tablet Furosemide [Lasix] 20 mg PO DAILY #30 tablet 07/05/17 Methimazole [Tapazole -] 5 mg PO TID #90 tablet 08/25/17 Tiotropium [place] [Spiriva] 1 puff IH BID #1 inh 08/25/17 Calcium Carb/Vitamin D3/Vit K1 [Calcium + D Soft Chewable Tab] 1 each PO WEEKLY 09/12/17 Cholecalciferol (Vitamin D3) [Vitamin D -] 50,000 unit PO WEEKLY 09/12/17 Nebulizer [Aeroeclipse II] 1 each MC Q6H PRN 09/12/17 Omeprazole 40 mg PO DAILY 09/12/17 Metoprolol Tartrate [Lopressor -] 50 mg PO BID #60 tablet 10/14/17
[2017-10-14] MEDS: METOPROLOL TARTRATE 50 MG TABLET (FP) PO SCH (10:49)
[2017-10-14] MEDS: PANTOPRAZOLE 40 MG TABLET (FP) PO SCH (10:49)
[2017-10-14 11:36] VITALS: BP 107/57; PULSE 82
--- NOTE | 2017-10-17 23:14 | EKG ---
Test Reason : Blood Pressure : / mmHG Vent. Rate : 067 BPM Atrial Rate : 067 BPM P-R Int : 152 ms QRS Dur : 148 ms QT Int : 450 ms P-R-T Axes : 003 -23 013 degrees QTc Int : 475 ms NORMAL SINUS RHYTHM RIGHT BUNDLE BRANCH BLOCK MINIMAL VOLTAGE CRITERIA FOR LVH, MAY BE NORMAL VARIANT ABNORMAL ECG WHEN COMPARED WITH ECG OF 13-OCT-2017 09:05, PREMATURE VENTRICULAR COMPLEXES ARE NO LONGER PRESENT PREMATURE ATRIAL COMPLEXES ARE NO LONGER PRESENT Confirmed by ANTOINE FLORES MD ([id number]) on 10/17/2017 11:13:55 PM Referred By: Confirmed By:ANTOINE FLORES MD
== END 2017-10-14 13:05 | disposition home or self-care (01) ==
LOC: JER 15:49 → JERBED 19:43 → J6S 21:58
PROVIDERS: ADMIT Internal Medicine; ATTEND Registered Nurse
PROC: 3E03329 Introduction of Other Anti-infective into Peripheral Vein, Percutaneous Approach (ICD-10-PCS; principal; 2017-10-12)
PROC: 3E033NZ Introduction of Analgesics, Hypnotics, Sedatives into Peripheral Vein, Percutaneous Approach (ICD-10-PCS; 2017-10-12)
PROC: 3E033GC Introduction of Other Therapeutic Substance into Peripheral Vein, Percutaneous Approach (ICD-10-PCS; 2017-10-12)
PROC: 3E0F7GC Introduction of Other Therapeutic Substance into Respiratory Tract, Via Natural or Artificial Opening (ICD-10-PCS; 2017-10-12)
DX: N30.00 Acute cystitis without hematuria (principal); R11.10 Vomiting, unspecified; E05.90 Thyrotoxicosis, unspecified without thyrotoxic crisis or storm; I10 Essential (primary) hypertension; I48.91 Unspecified atrial fibrillation; I50.30 Unspecified diastolic (congestive) heart failure; E11.9 Type 2 diabetes mellitus without complications; E78.5 Hyperlipidemia, unspecified; J45.909 Unspecified asthma, uncomplicated; K21.9 Gastro-esophageal reflux disease without esophagitis; G20 Parkinson's disease; Z79.01 Long term (current) use of anticoagulants; Z79.82 Long term (current) use of aspirin
CPT/HCPCS: 36415; 74176-TC; 80048; 80053; 81003; 81015; 83735; 84100; 84443; 85025; 85027; 87086; 87186; 93005; 93010; 99285-25; G0378

== ENCOUNTER 2017-10-23 14:11 | Emergency (ER) | payer OTHER ==
[2017-10-23 14:33] VITALS: BMI 37.5
[2017-10-23] MEDS ORDERED: SODIUM CHLORIDE 500 ML IV STA (15:17)
[2017-10-23] MEDS ORDERED: ACETAMINOPHEN 1000 MG/100 ML VIAL (NON FORMULARY) IVPB ONE (15:18)
--- NOTE | 2017-10-23 15:22 | PDOC ---
History of Present Illness - General Chief Complaint: Headache Stated Complaint: PAIN Time Seen by Provider: 10/23/17 15:06 History Source: Patient, Family (daughter) Exam Limitations: Language Barrier - History of Present Illness Initial Comments: 10/23/17 15:20 82 yr female with one week pain to the left side of her neck radiates to her shoulder and arm, also under left ribs. Pt denies trauma, denies chest pain or shortness of breath. Pt was recently in the hospital for urosepsis, states pain started while in the hospital has gotten progressively worse. tylenol with no relief at home. Pt's daughter reports fever 100.o max yesterday . PMHX: afib, asthma, essential tremor, HTN PMD: [place] 10/23/17 17:33 Past History - Past Medical History Allergies/Adverse Reactions: Allergies Allergy/AdvReac Type Severity Reaction Status Date / Time No Known Allergies Allergy Verified 10/23/17 14:29 Home Medications: Ambulatory Orders Albuterol Sulfate Inhaler - [Ventolin HFA Inhaler -] 1 - 2 inh PO QID PRN Bimatoprost [Lumigan] 1 drop OU DAILY 04/09/17 Brimonidine Tartrate/Timolol [Combigan 0.2%-0.5% Eye Drops] 5 ml OU DAILY Apixaban [Eliquis -] 5 mg PO BID #60 tab 04/13/17 Lisinopril [Zestril] 2.5 mg PO DAILY 07/04/17 Acetaminophen [Tylenol .Regular Strength -] 650 mg PO Q4H PRN #0 tablet Furosemide [Lasix] 20 mg PO DAILY #30 tablet 07/05/17 Methimazole [Tapazole -] 5 mg PO TID #90 tablet 08/25/17 Tiotropium [place] [Spiriva] 1 puff IH BID #1 inh 08/25/17 Calcium Carb/Vitamin D3/Vit K1 [Calcium + D Soft Chewable Tab] 1 each PO WEEKLY 09/12/17 Cholecalciferol (Vitamin D3) [Vitamin D -] 50,000 unit PO WEEKLY 09/12/17 Nebulizer [Aeroeclipse II] 1 each MC Q6H PRN 09/12/17 Omeprazole 40 mg PO DAILY 09/12/17 Levofloxacin [Levaquin] 500 mg PO DAILY #5 tablet 10/14/17 Metoprolol Tartrate [Lopressor -] 50 mg PO BID #60 tablet 10/14/17 Diazepam [Valium] 2.5 mg PO Q8H #15 tablet MDD 15mg 10/23/17 Anemia: No Asthma: Yes Cancer: No Cardiac Disorders: Yes (A-FIB) CVA: No COPD: No CHF: No Dementia: No Diabetes: Yes GI Disorders: Yes (gerd) Disorders: No HTN: Yes Hypercholesterolemia: Yes Liver Disease: No Seizures: No Thyroid Disease: Yes (hyperthyroid) - Surgical History Abdominal Surgery: No Cardiac Surgery: No Lung Surgery: No Neurologic Surgery: No - Suicide/Smoking/Psychosocial Hx Smoking History: Unknown if ever smoked Have you smoked in the past 12 months: No Number of Cigarettes Smoked Daily: 0 Hx Alcohol Use: No Drug/Substance Use Hx: No Substance Use Type: None Hx Substance Use Treatment: No *Physical Exam - Vital Signs Last Vital Signs Temp Pulse Resp BP Pulse Ox 99.2 F 94 H 20 151/64 99 10/23/17 14:28 10/23/17 14:28 10/23/17 14:28 10/23/17 14:28 10/23/17 14:28 - Physical Exam General Appearance: Yes: Nourished, Appropriately Dressed, Obese HEENT: positive: EOMI, [place], TMs Normal, Pharynx Normal Neck: positive: Supple, Tender lateral (left side trapezius/sternoclemastoid muscle TTP). negative: Lymphadenopathy (R), Lymphadenopathy (L) Respiratory/Chest: positive: Lungs Clear, Normal Breath Sounds. negative: Stridor, Wheezing Cardiovascular: positive: Regular Rhythm, Regular Rate Gastrointestinal/Abdominal: positive: Soft Musculoskeletal: positive: Normal Inspection, Muscle Spasm (left upper back/ lateral neck ). negative: CVA Tenderness (L), Decreased Range of Motion Extremity: positive: Normal Inspection, Normal Range of Motion. negative: Normal Capillary Refill, Swelling, Calf Tenderness Integumentary: positive: Normal Color, Dry, Warm Neurologic: positive: Fully Oriented, Alert, Normal Mood/Affect, Normal Response , Motor Strength 5/5 ED Treatment Course - LABORATORY CBC & Chemistry Diagram: 10/23/17 15:30 10/23/17 15:30 - RADIOLOGY Radiology Studies Ordered: Category Date Time Status CERVICAL SPINE CT W/O CONTR [CT] Stat CT Scan 10/23/17 15:[address] WITHOUT CONTRAST [CT] Stat CT Scan 10/23/17 15:07 Ordered CHEST X-RAY PORTABLE* [RAD] Stat Radiology 10/23/17 15:15 Ordered Progress Note - Progress Note Progress Note: pt re-examined : pt has pain to the right upper quadrant of abdomen that radiates to the mid abd TTP no rebound , soft elevated LFT's noted will get US abdomen. neg nvd pt states she feels better after the pain medications and meclizine. US is completed read by imaging cotton broker is negative Medical Decision Making - Medical Decision Making 10/23/17 15:26 cc: dizzy, weak, pain to the left side of neck radiates to her arm and left rib area under breast denies trauma denies cough felt warm last night recent UTI lives alone daughter is with her pt denies ABD pain 10/23/17 18:33 pt feels better states her neck pain has improved, denies abd pain now states "I am really hungry, I think a have hunger pains" Pt is stable afebrile, pt to be dc home with her family who understand and agree with the plan. Pt has apt tomorrow with her PMD. *DC/Admit/Observation/Transfer Diagnosis at time of Disposition: Sprain of cervical neck Qualifiers: Encounter type: initial encounter Qualified Code(s): S13.9XXA - Sprain of joints and ligaments of unspecified parts of neck, initial encounter - Discharge Dispostion Disposition: HOME Condition at time of disposition: Improved - Prescriptions Prescriptions: Diazepam [Valium] 2.5 mg PO Q8H #15 tablet MDD 15mg - Referrals Referrals: Efraín Fortune MD [Primary Care Provider] - - Patient Instructions Additional Instructions: please follow up regarding enlarged thyroid gland (that was found on the cervical spine cat scan) follow up with your doctor regarding elevated liver enzyme tests take valium as directed, you can take 1/2 a pill (2.5mg) and you can take the other half in one hour if no results Return to ER for any worsening symptoms - Post Discharge Activity
[2017-10-23] MEDS ORDERED: MECLIZINE HCL 12.5 MG TABLET PO ONE (15:24)
[2017-10-23] MEDS ORDERED: MECLIZINE HCL 12.5 MG TABLET ONE (15:32)
[2017-10-23] MEDS ORDERED: ACETAMINOPHEN INJECTION 100 ML IVPB ONE (15:33)
[2017-10-23 15:36] LABS: BASOPHIL 0.4 % (0-2.0); EOSINOPHIL 1.6 % (0-4.5); MCHC 32.6 g/dl (32.0-36.0); MEAN CELL VOLUME 82.7 fl (80-96); MEAN PLT VOLUME 7.8 fl (7.5-11.1); NEUTROPHILS 69.6 % (42.8-82.8); PLATELET COUNT 253 K/MM3 (134-434); RDW 16.1 % (11.6-15.6)
[2017-10-23 16:00] LABS: ALBUMIN 3.2 g/dl (3.4-5.0); ANION GAP 8 (8-16); BILIRUBIN,TOTAL 1.2 mg/dL (0.2-1.0); CALCIUM 8.8 mg/dL (8.5-10.1); CO2 28 mmol/L (21-32); CREATININE 0.7 mg/dL (0.55-1.02); GLUCOSE,RANDOM 120 mg/dL (74-106); SGOT/AST 89 U/L (15-37); SGPT/ALT 192 U/L (12-78); TOT PROT 6.9 g/dl (6.4-8.2)
[2017-10-23 16:18] LABS: ALK PHOS 284 U/L (45-117); CPK 49 IU/L (26-192)
[2017-10-23 16:25] LABS: INR 1.65 (0.82-1.09); PROTHROMBIN TIME (PATIENT) 18.6 SEC (9.98-11.88)
[2017-10-23 16:32] LABS: TROPONIN I < 0.02 ng/ml (0.00-0.05)
[2017-10-23] MEDS ORDERED: diazePAM 2 MG TABLET PO ONE (16:52)
[2017-10-23] MEDS ORDERED: diazePAM 2 MG TABLET ONE (16:57)
[2017-10-23 17:40] LABS: URINE APPEARANCE CLEAR; URINE BILIRUBIN NEGATIVE (NEGATIVE); URINE COLOR YELLOW; URINE GLUCOSE (UA) NEGATIVE (NEGATIVE)
[2017-10-23 17:41] LABS: URINE BLOOD 1+ (NEGATIVE); URINE KETONE TRACE (NEGATIVE); URINE NITRITE NEGATIVE (NEGATIVE); URINE PROTEIN NEGATIVE (NEGATIVE); URINE UROBILINOGEN NORMAL (0.2-1.0)
[2017-10-23 17:42] LABS: URINE BACTERIA RARE /hpf (NEGATIVE); URINE LEUK ESTERASE TRACE (NEGATIVE); URINE MUCUS RARE; URINE RBC 20-40 /hpf (0-3); URINE WBC 19 (0-5)
[2017-10-23 17:53] VITALS: TEMP 97.5
[2017-10-23 18:56] VITALS: BP 132/78; PULSE 68
--- NOTE | 2017-10-24 13:27 | EKG ---
Test Reason : Blood Pressure : / mmHG Vent. Rate : 084 BPM Atrial Rate : 084 BPM P-R Int : 216 ms QRS Dur : 142 ms QT Int : 398 ms P-R-T Axes : 042 -34 011 degrees QTc Int : 470 ms SINUS RHYTHM WITH 1ST DEGREE A-V BLOCK WITH PREMATURE ATRIAL COMPLEXES LEFT AXIS DEVIATION RIGHT BUNDLE BRANCH BLOCK MINIMAL VOLTAGE CRITERIA FOR LVH, MAY BE NORMAL VARIANT ABNORMAL ECG WHEN COMPARED WITH ECG OF 14-OCT-2017 09:27, PREMATURE ATRIAL COMPLEXES ARE NOW PRESENT Confirmed by ANTOINE FLORES MD ([id number]) on 10/24/2017 1:26:45 PM Referred By: Confirmed By:ANTOINE FLORES MD
== END 2017-10-23 18:56 | disposition home or self-care (01) ==
LOC: JER 14:11 → SUPCPDRO 14:11 → JER 18:56
PROC: 3E0337Z Introduction of Electrolytic and Water Balance Substance into Peripheral Vein, Percutaneous Approach (ICD-10-PCS; principal; 2017-10-23)
PROC: 3E033NZ Introduction of Analgesics, Hypnotics, Sedatives into Peripheral Vein, Percutaneous Approach (ICD-10-PCS; 2017-10-23)
DX: S13.4XXA Sprain of ligaments of cervical spine, initial encounter (principal); I48.91 Unspecified atrial fibrillation; Z79.01 Long term (current) use of anticoagulants; I10 Essential (primary) hypertension; J45.909 Unspecified asthma, uncomplicated; E78.00 Pure hypercholesterolemia, unspecified; K21.9 Gastro-esophageal reflux disease without esophagitis; E05.90 Thyrotoxicosis, unspecified without thyrotoxic crisis or storm; X58.XXXA Exposure to other specified factors, initial encounter; Y93.89 Activity, other specified; Y92.89 Other specified places as the place of occurrence of the external cause; Y99.8 Other external cause status
CPT/HCPCS: 36415; 70450-TC; 71010-TC; 72125-TC; 76700-TC; 80053; 81003; 81015; 82550; 84484; 85025; 85610; 87086; 93005; 93010; 96361; 96374; 99284-25

== ENCOUNTER 2017-11-02 10:49 | Emergency (ER) | payer OTHER ==
[2017-11-02 11:04] VITALS: BMI 37.5
[2017-11-02 13:00] LABS: URINE APPEARANCE SLCLOUDY; URINE BILIRUBIN NEGATIVE (NEGATIVE); URINE BLOOD 1+ (NEGATIVE); URINE COLOR YELLOW; URINE GLUCOSE (UA) NEGATIVE (NEGATIVE); URINE KETONE NEGATIVE (NEGATIVE); URINE NITRITE NEGATIVE (NEGATIVE); URINE PROTEIN NEGATIVE (NEGATIVE); URINE UROBILINOGEN NEGATIVE mg/dL (0.2-1.0)
[2017-11-02 13:16] LABS: URINE LEUK ESTERASE 2+ (NEGATIVE)
[2017-11-02 13:30] LABS: URINE MUCUS RARE; URINE RBC <1 /hpf (0-3); URINE WBC 55 /hpf (3-5)
[2017-11-02 14:07] VITALS: TEMP 99.1
--- NOTE | 2017-11-02 14:07 | EKG ---
Test Reason : Blood Pressure : / mmHG Vent. Rate : 084 BPM Atrial Rate : 084 BPM P-R Int : 208 ms QRS Dur : 146 ms QT Int : 446 ms P-R-T Axes : 037 -42 000 degrees QTc Int : 527 ms SINUS RHYTHM WITH PREMATURE ATRIAL COMPLEXES LEFT AXIS DEVIATION RIGHT BUNDLE BRANCH BLOCK MODERATE VOLTAGE CRITERIA FOR LVH, MAY BE NORMAL VARIANT ABNORMAL ECG WHEN COMPARED WITH ECG OF 23-OCT-2017 16:13, QT HAS LENGTHENED Confirmed by ANA BEGUM MD ([id number]) on 11/02/2017 2:07:04 PM Referred By: Confirmed By:ANA BEGUM MD
[2017-11-02] MEDS ORDERED: ONDANSETRON 4 MG/2 ML VIAL ONE (14:15)
[2017-11-02] MEDS ORDERED: ONDANSETRON 4 MG/2 ML VIAL IVPB ONE (14:15)
[2017-11-02 14:18] LABS: BASOPHIL 0.3 % (0-2.0); MCH 26.8 pg (25.7-33.7); MCHC 32.4 g/dl (32.0-36.0); MEAN CELL VOLUME 82.9 fl (80-96); MEAN PLT VOLUME 7.6 fl (7.5-11.1); NEUTROPHILS 82.1 % (42.8-82.8); PLATELET COUNT 355 K/MM3 (134-434); RDW 16.3 % (11.6-15.6); WHITE BLOOD COUNT 10.4 K/mm3 (4.0-10.0)
[2017-11-02 14:36] LABS: INR 1.45 (0.82-1.09); PROTHROMBIN TIME (PATIENT) 16.4 SEC (9.98-11.88)
[2017-11-02 14:38] LABS: ACTIVATED PTT 41.1 SECONDS (26.9-34.4)
[2017-11-02 14:44] LABS: ALBUMIN 3.7 g/dl (3.4-5.0); ANION GAP 11 (8-16); BILIRUBIN,TOTAL 0.7 mg/dL (0.2-1.0); CALCIUM 9.1 mg/dL (8.5-10.1); CO2 28 mmol/L (21-32); CREATININE 0.8 mg/dL (0.55-1.02); GLUCOSE,RANDOM 120 mg/dL (74-106); SGPT/ALT 69 U/L (12-78)
[2017-11-02 14:48] LABS: ALK PHOS 219 U/L (45-117); CPK 78 IU/L (26-192); TOT PROT 7.6 g/dl (6.4-8.2); TROPONIN I < 0.02 ng/ml (0.00-0.05)
[2017-11-02 14:52] LABS: SGOT/AST 41 U/L (15-37)
--- NOTE | 2017-11-02 15:24 | PDOC ---
History of Present Illness - General History Source: Patient, Family <HeladioPancho - Last Filed: 11/02/17 15:53> - History of Present Illness Initial Comments: 11/02/17 15:18 "The patient is an 82 year old female with a significant PMH of Parkinsons disease, AFIB (on Eliquis), HTN, hyperthyroidism, recurrent UTI, and borderline diabetes who presents to the emergency department with multiple complaints including 1 day of right sided upper arm pain and subjective fevers. The patients daughters report that the patient had a sudden onset of right arm pain while lying down, localized in the shoulder and slightly radiating to the right neck and right chest. They report that the patient has had difficulty moving her right arm secondary to the pain. They report that the patient took a Valium this morning for her right arm pain to some relief. Denies any CP currently. Denies SOB. Pt notes h/o UTI and increased urinary frequency over the past week. The patient denies chills, diarrhea and constipation. Denies dysuria, urgency and hematuria. Allergies: NKA Past surgical history: None reported. Social history: No reported cigarette, alcohol, or drug use PCP: Dr. Fortune Sewer Bricklayer: Dr. Cowan " 11/02/17 17:29 <John Busby - Last Filed: 11/02/17 17:51> - General Chief Complaint: Lightheaded Stated Complaint: PAIN/ HEAD, NECK, RT ARM Time Seen by Provider: 11/02/17 11:40 Past History <Tara Leijael - Last Filed: 11/02/17 15:53> - Past Medical History Anemia: No Asthma: Yes Cancer: No Cardiac Disorders: Yes (A-FIB) CVA: No COPD: No CHF: No Dementia: No Diabetes: Yes GI Disorders: Yes (gerd) Disorders: No HTN: Yes Hypercholesterolemia: Yes Liver Disease: No Seizures: No Thyroid Disease: Yes (hyperthyroid) Other medical history: PARKINSONS - Surgical History Abdominal Surgery: No Cardiac Surgery: No Lung Surgery: No Neurologic Surgery: No - Suicide/Smoking/Psychosocial Hx Smoking History: Never smoked Have you smoked in the past 12 months: No Number of Cigarettes Smoked Daily: 0 Hx Alcohol Use: No Drug/Substance Use Hx: No Substance Use Type: None Hx Substance Use Treatment: No <John Busby - Last Filed: 11/02/17 17:51> - Past Medical History Allergies/Adverse Reactions: Allergies Allergy/AdvReac Type Severity Reaction Status Date / Time No Known Allergies Allergy Verified 11/02/17 11:04 Home Medications: Ambulatory Orders Albuterol Sulfate Inhaler - [Ventolin HFA Inhaler -] 1 - 2 inh PO QID PRN Bimatoprost [Lumigan] 1 drop OU DAILY 04/09/17 Brimonidine Tartrate/Timolol [Combigan 0.2%-0.5% Eye Drops] 5 ml OU DAILY Apixaban [Eliquis -] 5 mg PO BID #60 tab 04/13/17 Lisinopril [Zestril] 2.5 mg PO DAILY 07/04/17 Acetaminophen [Tylenol .Regular Strength -] 650 mg PO Q4H PRN #0 tablet Furosemide [Lasix] 20 mg PO DAILY #30 tablet 07/05/17 Methimazole [Tapazole -] 5 mg PO TID #90 tablet 08/25/17 Tiotropium [place] [Spiriva] 1 puff IH BID #1 inh 08/25/17 Calcium Carb/Vitamin D3/Vit K1 [Calcium + D Soft Chewable Tab] 1 each PO WEEKLY 09/12/17 Cholecalciferol (Vitamin D3) [Vitamin D -] 50,000 unit PO WEEKLY 09/12/17 Nebulizer [Aeroeclipse II] 1 each MC Q6H PRN 09/12/17 Omeprazole 40 mg PO DAILY 09/12/17 Levofloxacin [Levaquin] 500 mg PO DAILY #5 tablet 10/14/17 Metoprolol Tartrate [Lopressor -] 50 mg PO BID #60 tablet 10/14/17 Diazepam [Valium] 2.5 mg PO Q8H #15 tablet MDD 15mg 10/23/17 Levofloxacin [Levaquin -] 250 mg PO DAILY #7 tablet 11/02/17 Review of Systems - Review of Systems Comments:: 11/02/17 15:32 "GENERAL/CONSTITUTIONAL: (+) Subjective fever. No chills. HEAD, EYES, EARS, NOSE AND THROAT: No change in vision. No ear pain or discharge. No sore throat. CARDIOVASCULAR:No chest pain. No shortness of breath. RESPIRATORY: No cough, wheezing, or hemoptysis. GASTROINTESTINAL: No vomiting, No diarrhea or constipation. GENITOURINARY: (+) Increased urinary frequency. No dysuria. MUSCULOSKELETAL: (+) RUE pain. No joint pain. No back pain. SKIN: No rash NEUROLOGIC: No headache, vertigo, loss of consciousness. . ENDOCRINE: No increased thirst. No abnormal weight change. HEMATOLOGIC/LYMPHATIC: No anemia, easy bleeding, or history of blood clots. ALLERGIC/IMMUNOLOGIC: No hives or skin allergy. " <John Busby - Last Filed: 11/02/17 17:51> *Physical Exam - Vital Signs Last Vital Signs Temp Pulse Resp BP Pulse Ox 99.1 F 91 H 20 112/71 98 11/02/17 11:50 11/02/17 11:00 11/02/17 11:00 11/02/17 11:00 11/02/17 11:00 <Pancho Leija - Last Filed: 11/02/17 15:53> - Vital Signs Last Vital Signs Temp Pulse Resp BP Pulse Ox 99.1 F 91 H 20 112/71 98 11/02/17 11:50 11/02/17 11:00 11/02/17 11:00 11/02/17 11:00 11/02/17 11:00 - Physical Exam Comments: 11/02/17 15:37 "GENERAL: Awake, alert, and fully oriented, in no acute distress HEAD: No signs of trauma EYES: PERRLA, EOMI, sclera anicteric, conjunctiva clear ENT: Auricles normal inspection, hearing grossly normal, nares patent, oropharynx clear without exudates. Moist mucosa NECK: Nontender, no stepoffs, Normal ROM, supple, no lymphadenopathy, JVD, or masses LUNGS: Breath sounds equal, clear to auscultation bilaterally. No wheezes, and no crackles HEART: Regular rate and rhythm, normal S1 and S2, no murmurs, rubs or gallops ABDOMEN: Soft, nontender, normoactive bowel sounds. No guarding, no rebound. No masses EXTREMITIES: RUE with no deformity, + pain with ROM of shoulder, no bony tenderness NEUROLOGICAL: Cranial nerves II through XII intact. 5/5 strength and sensation in all extremities, Normal speech. SKIN: Warm, Dry, normal turgor, no rashes or lesions noted. " <Ou,John - Last Filed: 11/02/17 17:51> Heart Score/ECG Review - ECG Impressions Comment:: 11/02/17 15:36 NSR, no DAGMAR/STDs, no TWIs, RBBB, left axis deviation <Ou,John - Last Filed: 11/02/17 17:51> ED Treatment Course - LABORATORY CBC & Chemistry Diagram: 11/02/17 13:45 11/02/17 13:45 - ADDITIONAL ORDERS Additional order review: Laboratory Results 11/02/17 11/02/17 11/02/17 13:45 13:45 12:39 PT with INR 16.40 H INR 1.45 H PTT (Actin FS) 41.1 H Sodium Cancelled Potassium Cancelled Chloride Cancelled Carbon Dioxide Cancelled Anion Gap Cancelled BUN Cancelled Creatinine Cancelled Creat Clearance w eGFR Cancelled Random Glucose Cancelled Calcium Cancelled Total Bilirubin Cancelled AST Cancelled ALT Cancelled Alkaline Phosphatase Cancelled Creatine Kinase Troponin I B-Natriuretic Peptide Total Protein Cancelled Albumin Cancelled Lipase Cancelled Urine Color Yellow Urine Appearance Slcloudy Urine pH 5.0 Ur Specific [place] 1.014 Urine Protein Negative Urine Glucose (UA) Negative Urine Ketones Negative Urine Blood 1+ H Urine Nitrite Negative Urine Bilirubin Negative Urine Urobilinogen Negative Urine WBC (Auto) 55 Urine RBC (Auto) <1 Ur Epithelial Cells Rare Urine Mucus Rare 11/02/17 11:50 PT with INR INR PTT (Actin FS) Sodium 136 Potassium 4.3 Chloride 97 L Carbon Dioxide 28 Anion Gap 11 BUN 14 Creatinine 0.8 Creat Clearance w eGFR > 60 Random Glucose 120 H Calcium 9.1 Total Bilirubin 0.7 D AST 41 H D ALT 69 D Alkaline Phosphatase 219 H D Creatine Kinase 78 Troponin I < 0.02 B-Natriuretic Peptide 1666.25 H Total Protein 7.6 Albumin 3.7 Lipase 173 Urine Color Urine Appearance Urine pH Ur Specific [place] Urine Protein Urine Glucose (UA) Urine Ketones Urine Blood Urine Nitrite Urine Bilirubin Urine Urobilinogen Urine WBC (Auto) Urine RBC (Auto) Ur Epithelial Cells Urine Mucus 11/02/17 13:45 RBC 4.70 MCV 82.9 MCHC 32.4 RDW 16.3 H MPV 7.6 Neutrophils % 82.1 Lymphocytes % 8.8 D Monocytes % 8.8 Eosinophils % 0.0 D Basophils % 0.3 - Medications Given in the ED: ED Medications Discontinued Medications Generic Name Dose Route Start Last Admin Trade Name Hussein PRN Reason Stop Dose Admin Ondansetron HCl 4 mg 11/02/17 14:15 11/02/17 14:20 Zofran Injection IVPB 11/02/17 14:16 4 mg ONCE ONE Administration Oxycodone/Acetaminophen 1 combo 11/02/17 12:41 11/02/17 12:56 Percocet 5/325 - PO 11/02/17 12:42 1 combo ONCE ONE Administration <Pancho Leija - Last Filed: 11/02/17 15:53> - LABORATORY CBC & Chemistry Diagram: 11/02/17 13:45 11/02/17 13:45 - ADDITIONAL ORDERS Additional order review: Laboratory Results 11/02/17 11/02/17 11/02/17 13:45 13:45 12:39 PT with INR 16.40 H INR 1.45 H PTT (Actin FS) 41.1 H Sodium Cancelled Potassium Cancelled Chloride Cancelled Carbon Dioxide Cancelled Anion Gap Cancelled BUN Cancelled Creatinine Cancelled Creat Clearance w eGFR Cancelled Random Glucose Cancelled Calcium Cancelled Total Bilirubin Cancelled AST Cancelled ALT Cancelled Alkaline Phosphatase Cancelled Creatine Kinase Troponin I B-Natriuretic Peptide Total Protein Cancelled Albumin Cancelled Lipase Cancelled Urine Color Yellow Urine Appearance Slcloudy Urine pH 5.0 Ur Specific [place] 1.014 Urine Protein Negative Urine Glucose (UA) Negative Urine Ketones Negative Urine Blood 1+ H Urine Nitrite Negative Urine Bilirubin Negative Urine Urobilinogen Negative Urine WBC (Auto) 55 Urine RBC (Auto) <1 Ur Epithelial Cells Rare Urine Mucus Rare 11/02/17 11:50 PT with INR INR PTT (Actin FS) Sodium 136 Potassium 4.3 Chloride 97 L Carbon Dioxide 28 Anion Gap 11 BUN 14 Creatinine 0.8 Creat Clearance w eGFR > 60 Random Glucose 120 H Calcium 9.1 Total Bilirubin 0.7 D AST 41 H D ALT 69 D Alkaline Phosphatase 219 H D Creatine Kinase 78 Troponin I < 0.02 B-Natriuretic Peptide 1666.25 H Total Protein 7.6 Albumin 3.7 Lipase 173 Urine Color Urine Appearance Urine pH Ur Specific [place] Urine Protein Urine Glucose (UA) Urine Ketones Urine Blood Urine Nitrite Urine Bilirubin Urine Urobilinogen Urine WBC (Auto) Urine RBC (Auto) Ur Epithelial Cells Urine Mucus 11/02/17 13:45 RBC 4.70 MCV 82.9 MCHC 32.4 RDW 16.3 H MPV 7.6 Neutrophils % 82.1 Lymphocytes % 8.8 D Monocytes % 8.8 Eosinophils % 0.0 D Basophils % 0.3 - RADIOLOGY Radiology Studies Ordered: Category Date Time Status CHEST PA & LAT [RAD] Stat Radiology 11/02/17 12:14 Ordered DUPLEX VASCUL US-1 ARM [US] Stat Ultrasound 11/02/17 12:15 Ordered - Medications Given in the ED: ED Medications Discontinued Medications Generic Name Dose Route Start Last Admin Trade Name Freq PRN Reason Stop Dose Admin Ondansetron HCl 4 mg 11/02/17 14:15 11/02/17 14:20 Zofran Injection IVPB 11/02/17 14:16 4 mg ONCE ONE Administration Oxycodone/Acetaminophen 1 combo 11/02/17 12:41 11/02/17 12:56 Percocet 5/325 - PO 11/02/17 12:42 1 combo ONCE ONE Administration <John Busby - Last Filed: 11/02/17 17:51> Medical Decision Making - Medical Decision Making 11/02/17 15:38 82 F with weakness and R arm pain. Weakness concerning for possible infectious process. Will r/o PNA and UTI. Pt's R arm pain is of unclear etiology. Will obtain US to r/o DVT. - Labs - UA, CXR - RUE US 11/02/17 17:30 US negative Labs notable for UTI. Will tx with levaquin based on prior sensitivities. XR with clear lungs. ?dilated loop of bowel. Pt with no abdominal pain, no nausea/vomiting or signs of obstruction. Pt reassessed - reports complete resolution of arm and shoulder pain. VItals normal. Pt well appearing. Clinically stable for DC at this time. <John Busby - Last Filed: 11/02/17 17:51> *DC/Admit/Observation/Transfer - Attestations Scribe Attestion: 11/02/17 15:53 Documentation prepared by Pancho Leija, acting as medical detailist for John Busby MD. <Pancho Leija - Last Filed: 11/02/17 15:53> - Attestations Physician Attestion: 11/02/17 17:33 I, Dr. John Busby MD, attest that this document has been prepared under my direction and personally reviewed by me in its entirety. I further attest, that it accurately reflects all work, treatment, procedures and medical decision -making performed by me. <John Busby - Last Filed: 11/02/17 17:51> Diagnosis at time of Disposition: Urinary tract infection - Discharge Dispostion Disposition: HOME - Prescriptions Prescriptions: Levofloxacin [Levaquin -] 250 mg PO DAILY #7 tablet - Referrals Referrals: Efraín Fortune MD [Primary Care Provider] - - Patient Instructions Printed Discharge Instructions: DI for Urinary Tract Infection (UTI) Additional Instructions: Take the antibiotics as prescribed to treat your urine infection. If you experience any worsening pain, weakness, fevers, or any other concerning symptoms, return to the ER immediately. Otherwise, follow up with your primary doctor within 1 week. - Post Discharge Activity
[2017-11-02 17:08] VITALS: BP 99/60; PULSE 81
[2017-11-02 17:28] LABS: URINE LEUK ESTERASE 1+ (NEGATIVE)
[2017-11-02] MEDS ORDERED: LEVOFLOXACIN 250 MG TABLET (FP) PO ONE (17:31)
[2017-11-02] MEDS ORDERED: LEVOFLOXACIN 250 MG TABLET (FP) ONE (18:26)
--- NOTE | 2017-11-04 20:00 | PDOC ---
Patient Follow-up (Call Back) - Post ED Follow - Up Disposition at time of original discharge: HOME Reason for Call Back: Abnwl. Microbiology (+ urine culture, ESBL, on levaquin, susceptible, patient reports that she is feeling well. No complaint, no fever)
== END 2017-11-02 18:30 | disposition home or self-care (01) ==
LOC: JER 10:49
PROC: 3E033GC Introduction of Other Therapeutic Substance into Peripheral Vein, Percutaneous Approach (ICD-10-PCS; principal; 2017-11-02)
DX: N39.0 Urinary tract infection, site not specified (principal); B96.89 Other specified bacterial agents as the cause of diseases classified elsewhere; I48.91 Unspecified atrial fibrillation; Z79.01 Long term (current) use of anticoagulants; I10 Essential (primary) hypertension; E05.91 Thyrotoxicosis, unspecified with thyrotoxic crisis or storm; E11.9 Type 2 diabetes mellitus without complications; G20 Parkinson's disease; Z87.440 Personal history of urinary (tract) infections
CPT/HCPCS: 36415; 71020-TC; 80053; 81003; 81015; 82550; 83690; 83880; 84484; 85025; 85610; 85730; 87086; 87186; 93005; 93010; 93971; 99283-25

== ENCOUNTER 2018-02-17 11:13 | Inpatient (IN) | payer OTHER ==
[2018-02-17 11:21] VITALS: BMI 37.5
--- NOTE | 2018-02-17 11:35 | PDOC ---
History of Present Illness - General Chief Complaint: Weakness Stated Complaint: FEVER Time Seen by Provider: 02/17/18 11:27 - History of Present Illness Initial Comments: 02/17/18 11:31 82 yo F with h/o Parkinsons dz., CVA ( no residual deficits) A-fib ( on Eliquis 5 mg), HTN, hyperthyroidism who p/w weakness. Per family pt. experienced acute onset spinning sensation at 0900, while sitting down in chair. Also reports transient loss of vision, and generalized weakness. Denies LOC. No identifiable triggers. Denies falls. Continues to have persistent vertiginous symptoms at rest. Denies CP, hearing loss, CERRATO, neck stiffness SOB, N/V, F/C, abdominal pain , urinary complaints, sensory disturbances. tPA Exclusion checklist 3-4.5h - Time Elapsed Date last known well: 02/17/18 Time last known well: 09:00 Elaspsed time: 2 Day(s) and 23 Hour(s) and 51 Minutes - Thrombolytic Therapy Candidate Is patient eligible for thrombolytic therapy: No - Exclusion Criteria 3-4.5 hr SBP greater than 185 or DBP greater than 110mmHg despite tx: Yes Recent IC/spinal surgery,head trauma or stroke<3mos.: No Hx IC hemorrhage, IC neoplasm, AV malformation or aneurysm: No Active internal bleeding: No Blding diathesis(low plt ct, inc PTT,INR>1.7 or use of NOAC): No Symptoms suggest subarachnoid hemorrhage: No CT demonstrates multilobar infarct(>1/3 cerebral hemiphere): No Arterial puncture at noncompressible site in previous 7 days: No Blood glucose concentration less than 50mg/dL (2.7mmol/L): No - Add'l Relative Exclusion 3-4.5 hr Age > 80: Yes NIHSS >25: No - Ineligibility reason(s) Reasons No tPA given: Outside of window - delayed arrival NIH Stroke Scale - Last Known Well Date/Time & Onset Date Last Known Well: 02/17/18 Time Last Known Well: 09:00 - Initial Evaluation Level of consciousness: Alert Ask patient the month and their age: Answers both correctly Ask patient to open & close eyes; make fist and let go: Obeys both correctly Best gaze (horizontal eye movement): Normal Visual field testing: No visual field loss Facial paresis (Show teeth/raise eyebrows/close eyes tight): Normal symmetrical movement Motor Function: Left Arm: Normal Motor Function: Right Arm: Normal (extends arm 90 (or 45) degrees for 10 seconds without drift Motor Function: Left Leg: Normal (extends leg 30 degrees for 5 seconds without drift) Motor Function: Right Leg: Normal (extends leg 30 degrees for 5 seconds without drift) Limb Ataxia: Present in two limbs Sensory(Use pinprick test arms,legs,trunk,face/side to side): Normal Best language (Describe picture, name items, read sentences): No Aphasia Dysarthria (read several words): Normal articulation Extinction and Inattention: No abnormality - Total Score NIH Stroke Scale Score: 2 Past History - Past Medical History Allergies/Adverse Reactions: Allergies Allergy/AdvReac Type Severity Reaction Status Date / Time No Known Allergies Allergy Verified 02/17/18 11:16 Home Medications: Ambulatory Orders Albuterol Sulfate Inhaler - [Ventolin HFA Inhaler -] 1 - 2 inh PO QID PRN Bimatoprost [Lumigan] 1 drop OU DAILY 04/09/17 Apixaban [Eliquis -] 5 mg PO BID #60 tab 04/13/17 Acetaminophen [Tylenol .Regular Strength -] 650 mg PO Q4H PRN #0 tablet Methimazole [Tapazole -] 5 mg PO TID #90 tablet 08/25/17 Calcium Carb/Vitamin D3/Vit K1 [Calcium + D Soft Chewable Tab] 1 each PO WEEKLY 09/12/17 Cholecalciferol (Vitamin D3) [Vitamin D -] 50,000 unit PO WEEKLY 09/12/17 Nebulizer [Aeroeclipse II] 1 each MC Q6H PRN 09/12/17 Brimonidine Tartrate/Timolol [Combigan Eye Drops] 5 ml OU BID 02/17/18 Fluticasone Propionate [Flovent Diskus] 250 mcg IH BID 02/17/18 Metoprolol Succinate [Toprol Xl] 25 mg PO DAILY 02/17/18 Umeclidinium [place] [Incruse Ellipta] 62.5 mcg IH DAILY 02/17/18 Valsartan [Diovan] 160 mg PO DAILY 02/17/18 Anemia: No Asthma: Yes Cancer: No Cardiac Disorders: Yes (A-FIB) CVA: No COPD: No CHF: No DVT: No Dementia: No Diabetes: Yes GI Disorders: Yes (gerd) Disorders: No HTN: Yes Hypercholesterolemia: Yes Liver Disease: No Seizures: No Thyroid Disease: Yes (hyperthyroid) - Surgical History Abdominal Surgery: No Cardiac Surgery: No Lung Surgery: No Neurologic Surgery: No - Suicide/Smoking/Psychosocial Hx Smoking History: Never smoked Have you smoked in the past 12 months: No Number of Cigarettes Smoked Daily: 0 Information on smoking cessation initiated: No Hx Alcohol Use: No Drug/Substance Use Hx: No Substance Use Type: None Hx Substance Use Treatment: No Review of Systems - Review of Systems Comments:: 02/17/18 11:34 GENERAL/CONSTITUTIONAL: No fever or chills. No weakness. HEAD, EYES, EARS, NOSE AND THROAT: No change in vision. No ear pain or discharge. No sore throat. CARDIOVASCULAR: No chest pain or shortness of breath RESPIRATORY: No cough, wheezing, or hemoptysis. GASTROINTESTINAL: No nausea, vomiting, diarrhea or constipation. GENITOURINARY: No dysuria, frequency, or change in urination. MUSCULOSKELETAL: No joint or muscle swelling or pain. No neck or back pain. SKIN: No rash NEUROLOGIC: + Weakness, and vertigo. No headache, vertigo, loss of consciousness , or change in strength/sensation. ENDOCRINE: No increased thirst. No abnormal weight change HEMATOLOGIC/LYMPHATIC: No anemia, easy bleeding, or history of blood clots. ALLERGIC/IMMUNOLOGIC: No hives or skin allergy. *Physical Exam - Vital Signs Last Vital Signs Temp Pulse Resp BP Pulse Ox 99.0 F 92 H 24 194/94 96 02/17/18 11:17 02/17/18 11:17 02/17/18 11:17 02/17/18 11:17 02/17/18 11:17 - Physical Exam Comments: 02/17/18 11:34 GENERAL: Awake, alert, and fully oriented, in no acute distress HEAD: No signs of trauma, normocephalic, atraumatic EYES: PERRLA, EOMI, sclera anicteric, conjunctiva clear ENT: Auricles normal inspection, hearing grossly normal, nares patent, oropharynx clear without exudates. Moist mucosa NECK: Normal ROM, supple, no lymphadenopathy, JVD, or masses LUNGS: No distress, speaks full sentences, clear to auscultation bilaterally HEART: Regular rate and rhythm, normal S1 and S2, no murmurs, rubs or gallops, peripheral pulses normal and equal bilaterally. EXTREMITIES : Normal inspection, Normal range of motion, no edema. No clubbing or cyanosis. NEUROLOGICAL: Cranial nerves II through XII grossly intact. Normal speech, no focal sensorimotor deficits. Dysmetria on FTN. Normal AUREA. SKIN: Warm, Dry, normal turgor, no rashes or lesions noted ED Treatment Course - LABORATORY CBC & Chemistry Diagram: 02/20/18 06:42 02/18/18 06:00 Medical Decision Making - Medical Decision Making 02/17/18 14:10 82 yo F with h/o Parkinsons dz., CVA ( no residual deficits, A-fib ( on Eliquis 5mg), HTN, hyperthyroidism who p/w acute onset spinning sensation at 0900, while sitting down in chair. Also reports transient loss of vision, generalized weakness, and diaphoresis now resolved. Denies LOC. Continues to have persistent vertiginous symptoms at rest. Denies CP, hearing loss, CERRATO, neck stiffness, neck pain, SOB, N/V, F/C, abdominal pain, urinary complaints, sensory disturbances. H/o ASA. Physical exam with absent focal neuro deficits, or nystagmus. Notable for slight dysmetria on FTN. BP 194/94. Findings concerning for central vs peripheral cause of vertigo. CVA/TIA r/o. Patient w/ out findings of SAH. Absent sudden onset, max intensity CERRATO, or focal neuro deficits. Differential also includes vertebrobasilar insufficiency. Low suspicion of encephalitis, meningitis. Patient nontoxic and afebrile, with absent nuchal findings. [facility]. Will cont permissive HTN. Pt. outside TPa window from symptom onset. ED Course: NIHSS 2 Dr. 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 02/17/18 14:56 EKG: NSR with RBBB. Pt. admitted to Dr. Castano Inpt/tele. *DC/Admit/Observation/Transfer Diagnosis at time of Disposition: Vertigo, Weakness - Discharge Dispostion Condition at time of disposition: Improved Admit: Yes - Referrals - Patient Instructions - Post Discharge Activity - Attestations Physician Attestion: 02/17/18 11:35 I attest to the information provided in this note.
[2018-02-17 12:35] LABS: BASO % 0.4 % (0-2.0); HEMATOCRIT 34.5 % (32.4-45.2); HEMOGLOBIN 11.1 GM/dL (10.7-15.3); LYMPH % 20.1 % (8-40); MCH 27.4 pg (25.7-33.7); MCHC 32.2 g/dl (32.0-36.0); MEAN CELL VOLUME 85.1 fl (80-96); MEAN PLT VOLUME 7.3 fl (7.5-11.1); MONO % 9.5 % (3.8-10.2); PLATELET COUNT 228 K/MM3 (134-434); RBC 4.06 M/mm3 (3.60-5.2); WHITE BLOOD COUNT 6.1 K/mm3 (4.0-10.0)
--- NOTE | 2018-02-17 12:53 | PDOC ---
Attending Attestation - Resident Resident Name: Gustavo Cade - ED Attending Attestation I have performed the following: I have examined & evaluated the patient, The case was reviewed & discussed with the resident, I agree w/resident's findings & plan, Exceptions are as noted - Medical Decision Making 02/17/18 13:44 pt meds myrbetric 50mg, methimazole 5 mg, lasix 20, pepcid , vit D, combigan eye gtt, dorzolomide eye gtt , flovent, eleiquis 5mg, ellipta powder inh <Cirilli,Rachel - Last Filed: 02/17/18 14:27> - HPI HPI: 02/17/18 13:01 The patient is an 82 year old female with a past medical history of Parkinson's disease, AFIB (on Eliquis), HTN, hyperthyroidism, recurrent UTI, borderline diabetes, recent cardiac ablation (6 months ago), and prior stroke who presents to the Emergency Department with left sided weakness, chills, shortness of breath. The patient reports sudden onset weakness with associated decreased vision, claminess, diaphoresis, and dizziness. The patient denies any loss of consciousness and shortness of breath. The patient endorses history of stroke but both patient and family are unsure of any residual effects. - Physicial Exam PE: 02/17/18 13:02 GENERAL: Awake, alert, and fully oriented, in no acute distress HEAD: No signs of trauma EYES: PERRLA, EOMI, sclera anicteric, conjunctiva clear ENT: Auricles normal inspection, nares patent, Moist mucosa NECK: Normal ROM, supple, no lymphadenopathy, JVD, or masses LUNGS: Breath sounds equal, clear to auscultation bilaterally. No wheezes, and no crackles HEART: Regular rate and rhythm, normal S1 and S2, no murmurs, rubs or gallops ABDOMEN: Soft, nontender, normoactive bowel sounds. No guarding, no rebound. No masses EXTREMITIES: Normal range of motion, no edema. No clubbing or cyanosis. No cords, erythema, or tenderness NEUROLOGICAL: Normal speech, dysphagia, 4/5 in left upper and left lower extremity. Sensation intact throughout, face symmetrical, cranial nerves intact. negative arinane hallpike. SKIN: Warm, Dry, normal turgor, no rashes or lesions noted. - Medical Decision Making 02/17/18 13:02 EXAM#: TYPE/EXAM: RESULT: [id number] CT/BRAIN CTA (STROKE) Brain CT angiography CLINICAL INFORMATION: vertigo Multiplanar thin section imaging was performed following the intravenous bolus administration of nonionic contrast. Individual partition images as well as projection and reformatted images are reviewed. The vertebrobasilar and carotid circulations demonstrate no CT evidence of large vessel stenosis or occlusion. No discrete aneurysm is seen. There is no extrinsic abnormality. IMPRESSION: No large vessel stenosis is identified. Reported By: Fredrick Garcia MD 02/17/18 1328 EXAM#: TYPE/EXAM: RESULT: [id number] CT/HEAD CT (STROKE) Dizziness. Left-sided weakness. CT scan of the brain without intravenous contrast. Compared to prior CT scan of the head dated 10/23/2017 There remains [id number] volume loss and ventricular dilatation. Probable minimal periventricular chronic microvascular ischemic disease changes are present. No mass lesion, acute infarct or intracranial hemorrhage are identified. A tiny old lacunar infarct is again noted in the right thalamus, anteriorly. There is no shift of the midline structures. The craniocervical junction appears unremarkable. Visualized paranasal sinuses and mastoid air cells are well aerated. The calvarium is intact IMPRESSION: Right thalamic tiny old lacunar infarct. Mild-to -moderate volume loss without evidence of acute intracranial pathology. Correlate clinically to determine further evaluation and follow-up Reported By: Mart Stewart MD 02/17/18 1222 EXAM#: TYPE/EXAM: RESULT: [id number] RAD/CHEST X-RAY PORTABLE* HISTORY PROVIDED: Dizziness. A single frontal portable projection of the chest at 1:46 PM is submitted. The heart size is enlarged. The lung painting are free of pulmonary infiltrates or pleural effusions. There is tortuosity and calcification of the thoracic aorta and degenerative arthritis of the thoracic spine. IMPRESSION: Cardiomegaly, no acute disease. Reported By: Perry Smallwood MD 02/17/18 8837 Documentation prepared by J Luis Peralta, acting as medical coding instructor for Rachel iMchael MD. <J Luis Peralta - Last Filed: 02/17/18 14:31> Heart Score/ECG Review #1 General ECG Interpretation: Sinus Rhythm, Normal Rate (95), Normal Intervals, No acute ischemic changes Compared to previous ECG there are: No significant change (comparison 10/23/17) <Rachel Michael - Last Filed: 02/17/18 14:27> NIH Stroke Scale - Initial Evaluation Level of consciousness: Alert Ask patient the month and their age: Answers both correctly Ask patient to open & close eyes; make fist and let go: Obeys both correctly Best gaze (horizontal eye movement): Normal Visual field testing: No visual field loss Facial paresis (Show teeth/raise eyebrows/close eyes tight): Normal symmetrical movement Motor Function: Left Arm: Normal (=) Motor Function: Right Arm: Normal (extends arm 90 (or 45) degrees for 10 seconds without drift (omfortable neuro patient) Motor Function: Left Leg: Drift (you) Motor Function: Right Leg: Normal (extends leg 30 degrees for 5 seconds without drift) (tomorrow) Limb Ataxia: Present in one limb (left side only9:00 became very vertiginous while sitting d) Sensory(Use pinprick test arms,legs,trunk,face/side to side): Normal Best language (Describe picture, name items, read sentences): No Aphasia Dysarthria (read several words): Normal articulation Extinction and Inattention: No abnormality - Total Score NIH Stroke Scale Score: 2 <Rachel Michael - Last Filed: 02/17/18 14:27> tPA Exclusion checklist 3-4.5h - Time Elapsed Date last known well: 02/17/18 Time last known well: 08:30 Elaspsed time: Day(s) and 5 Hour(s) and 57 Minutes - Thrombolytic Therapy Candidate Is patient eligible for thrombolytic therapy: No - Exclusion Criteria 3-4.5 hr SBP greater than 185 or DBP greater than 110mmHg despite tx: No Recent IC/spinal surgery,head trauma or stroke<3mos.: No Hx IC hemorrhage, IC neoplasm, AV malformation or aneurysm: No Active internal bleeding: No Blding diathesis(low plt ct, inc PTT,INR>1.7 or use of NOAC): No Symptoms suggest subarachnoid hemorrhage: No CT demonstrates multilobar infarct(>1/3 cerebral hemiphere): No Arterial puncture at noncompressible site in previous 7 days: No Blood glucose concentration less than 50mg/dL (2.7mmol/L): No - Relative Exclusion Criteria 3-4.5 hr Life expectancy <1 yr or severe co-morbid illness: No : No Patient/family refused: No Rapid improvement: Yes Stroke severity too mild: Yes Recent acute SC (w/in previous 3 months): No Seizure at onset with postictal residual neuro impairments: No Major surgery or serious trauma w/in previous 14 days: No Recent GI or hemorrhage (w/in previous 21 days): No - Add'l Relative Exclusion 3-4.5 hr Age > 80: Yes Hx of both diabetes AND prior ischemic stroke: Yes Taking an oral anticoagulant regardless of INR: Yes NIHSS >25: No - Ineligibility reason(s) Reasons No tPA given: See reason(s) noted above (pt with comlex presenting symptoms, improving since onset, low stroke scale, on eliquis and delayed presentation with unclear time of onset. ) <Rachel Michael - Last Filed: 02/17/18 14:27>
[2018-02-17 12:59] LABS: ALBUMIN 3.6 g/dl (3.4-5.0); ANION GAP 8 (8-16); BILIRUBIN,TOTAL 0.3 mg/dL (0.2-1.0); BLOOD UREA NITROGEN 15 mg/dL (7-18); CALCIUM 8.9 mg/dL (8.5-10.1); CHLORIDE 105 mmol/L (98-107); CO2 29 mmol/L (21-32); CREATININE 0.7 mg/dL (0.55-1.02); GLUCOSE,RANDOM 117 mg/dL (74-106); POTASSIUM 4.1 mmol/L (3.5-5.1); SGOT/AST 16 U/L (15-37); SGPT/ALT 20 U/L (12-78); SODIUM 142 mmol/L (136-145); TOT PROT 6.8 g/dl (6.4-8.2)
[2018-02-17 13:02] LABS: ALK PHOS 97 U/L (45-117); N-TERMINAL BNP 300.66 pg/ml (5-450)
[2018-02-17 13:06] LABS: INR 1.18 (0.82-1.09); PROTHROMBIN TIME (PATIENT) 13.3 SEC (9.98-11.88)
[2018-02-17 13:09] LABS: ACTIVATED PTT 37.2 SECONDS (26.9-34.4)
--- NOTE | 2018-02-17 14:58 | HP ---
CHIEF COMPLAINT: "im not feeling well" PCP: Dr. Fortune HISTORY OF PRESENT ILLNESS: This is an 82yo F with PMH of Prior CVA (no residual deficits), a-fib (on Eliquis and s/p cardioversion), dCHF, HTN, hyperthyroidism, DMII, asthma, and Parkinson's disease who presents due to dizziness and generalized weakness since 9 am. Patient a poor historian and information is obtained by daughter who witnessed the event. According to her patient is currently slightly confused and her speech sounds more slurred than usual. Patient complains of numbness of tongue, difficulty swallowing and mild sob. L eyelid lag, dizziness with movement rest and closing eyes. She complains of diffuse weakness. When symptoms first occurred, she was in a seated position, felt diaphoretic chills, rigors and darkening of vision. Daughter states that she had very similar symptoms last time she had a stroke years ago, accompanied by HTN. In ED patient is hypertensive 190 systolic, O2 sat 88 on room air. She denies cp, cough, palpitations, abd pain, n/v/d, peripheral edema. ER course was notable for: (1) labs (2)ekg (3) ct head,cta brain Recent Travel: denies PAST MEDICAL HISTORY: as above PAST SURGICAL HISTORY: Cardioversion/DON 3 weeks ago, Hysterectomy in Social History: Smoking: None Alcohol: None Drugs: None Family History: noncontributory Allergies No Known Allergies Allergy (Verified 02/17/18 11:16) HOME MEDICATIONS: Home Medications Medication Instructions Recorded Albuterol Sulfate Inhaler - 1 - 2 inh PO QID PRN 09/13/16 [Ventolin HFA Inhaler -] Bimatoprost [Lumigan] 1 drop OU DAILY 04/09/17 Brimonidine Tartrate/Timolol 5 ml OU DAILY 04/09/17 [Combigan 0.2%-0.5% Eye Drops] Apixaban [Eliquis -] 5 mg PO BID #60 tab 04/13/17 Lisinopril [Zestril] 2.5 mg PO DAILY 07/04/17 Acetaminophen [Tylenol .Regular 650 mg PO Q4H PRN #0 tablet 07/05/17 Strength -] Furosemide [Lasix] 20 mg PO DAILY #30 tablet 07/05/17 Methimazole [Tapazole -] 5 mg PO TID #90 tablet 08/25/17 Tiotropium [place] [Spiriva] 1 puff IH BID #1 inh 08/25/17 Calcium Carb/Vitamin D3/Vit K1 1 each PO WEEKLY 09/12/17 [Calcium + D Soft Chewable Tab] Cholecalciferol (Vitamin D3) 50,000 unit PO WEEKLY 09/12/17 [Vitamin D -] Nebulizer [Aeroeclipse II] 1 each MC Q6H PRN 09/12/17 Omeprazole 40 mg PO DAILY 09/12/17 Levofloxacin [Levaquin] 500 mg PO DAILY #5 tablet 10/14/17 Metoprolol Tartrate [Lopressor -] 50 mg PO BID #60 tablet 10/14/17 Diazepam [Valium] 2.5 mg PO Q8H #15 tablet MDD 15mg 10/23/17 levoFLOXacin [Levaquin -] 250 mg PO DAILY #7 tablet 11/02/17 REVIEW OF SYSTEMS CONSTITUTIONAL: Absent: fever, loss of appetite, weight change HEENT: Absent: rhinorrhea, nasal congestion, throat pain CARDIOVASCULAR: Absent: chest pain, syncope, palpitations, irregular heart rate, peripheral edema RESPIRATORY: Absent: cough, orthopnea, wheezing, stridor GASTROINTESTINAL: Absent: abdominal pain, abdominal distension, nausea, vomiting, diarrhea, constipation, melena, hematochezia GENITOURINARY: Absent: dysuria MUSCULOSKELETAL: Absent: myalgia, arthralgia, SKIN: Absent: rash, itching, pallor HEMATOLOGIC/IMMUNOLOGIC: Absent: easy bleeding, easy bruising ENDOCRINE: Absent: unexplained weight gain, unexplained weight loss, heat intolerance, cold intolerance NEUROLOGIC: Absent: headache, seizure PSYCHIATRIC: Absent: anxiety, depression PHYSICAL EXAMINATION Vital Signs - 24 hr 02/17/18 11:17 Temperature 99.0 F Pulse Rate 92 H Respiratory 24 Rate Blood Pressure 194/94 O2 Sat by Pulse 96 Oximetry (%) GENERAL: Awake, alert, and fully oriented, in no acute distress. HEAD: Normal with no signs of trauma. EYES: Pupils equal, round and reactive to light, extraocular movements intact, sclera anicteric, conjunctiva clear. + L lid lag. EARS, NOSE, THROAT: Moist mucous membranes. NECK: supple without JVD, no bruits LUNGS: Breath sounds equal, clear to auscultation bilaterally HEART: Regular rate and rhythm, normal S1 and S2 ABDOMEN: Soft, mildly tender LLQ, moderately distended, normoactive bowel sounds , no guarding, no rebound, no masses. MUSCULOSKELETAL: No CVA tenderness. UPPER EXTREMITIES: 2+ pulses, warm, well-perfused. No cyanosis. No clubbing. No peripheral edema. LOWER EXTREMITIES: absent dp pulses, warm, well-perfused. No calf tenderness. trace peripheral edema. NEUROLOGICAL: Cranial nerves II-XII intact. L lid lag, slightly slurred speech 4+/5 RLE, RUE strength, 5/5 LLE LUE, sensation reduced in RU, RLE. PSYCHIATRIC: Cooperative. Good eye contact. SKIN: Warm, dry Laboratory Results - last 24 hr 02/17/18 02/17/18 02/17/18 12:20 12:20 12:20 WBC 6.1 D RBC 4.06 Hgb 11.1 D Hct 34.5 MCV 85.1 MCH 27.4 MCHC 32.2 RDW 15.0 Plt Count 228 D MPV 7.3 L Neutrophils % 68.0 Lymphocytes % 20.1 D Monocytes % 9.5 Eosinophils % 2.0 D Basophils % 0.4 PT with INR 13.30 H INR 1.18 H PTT (Actin FS) 37.2 H Sodium 142 Potassium 4.1 Chloride 105 Carbon Dioxide 29 Anion Gap 8 BUN 15 Creatinine 0.7 Creat Clearance w eGFR > 60 Random Glucose 117 H Calcium 8.9 Total Bilirubin 0.3 D AST 16 ALT 20 Alkaline Phosphatase 97 Creatine Kinase 61 Troponin I < 0.02 B-Natriuretic Peptide 300.66 Total Protein 6.8 Albumin 3.6 ASSESSMENT/PLAN: This is an 82yo F with PMH of Prior CVA (no residual deficits), a-fib (on Eliquis and s/p cardioversion), dCHF, HTN, hyperthyroidism, DMII, asthma, and Parkinson's disease who presents due to dizziness and generalized weakness since 9 am. r/o CVA -suspicious neuro findings, outsside TPA window -CT head old lacunar infarct; CTA head unremarkable for vascular pathology -ASA 300 [place] -permissive HTN 180 mmhg -tight glycemic control bgm q4h gluc >90 <180 -NPO, aspiration precautions -neuro consult -telemetry -TTE, carotid dopplers -lipid panel, TFTs, A1c -Brain MRI A fib -in sinus rythm -hold eliquis, start Hep gtt CHF -CXR unremarkable -no evidence of acute exacerbation HTN -permissive hypotension, hold meds DMII -iss, bgm asthma -albuterol nebs prn FEN -no ivf -lytes stable -npo hep gtt ppi ADMIT TELE Problem List - Problem (1) CVA (cerebral vascular accident) Code(s): I63.9 - CEREBRAL INFARCTION, UNSPECIFIED (2) Vertigo Code(s): R42 - DIZZINESS AND GIDDINESS (3) Weakness Code(s): R53.1 - WEAKNESS (4) Asthma Code(s): J45.909 - UNSPECIFIED ASTHMA, UNCOMPLICATED Qualifiers: Asthma severity: mild Asthma persistence: intermittent Asthma complication type: unspecified Qualified Code(s): J45.20 - Mild intermittent asthma, uncomplicated (5) Atrial fibrillation Code(s): I48.91 - UNSPECIFIED ATRIAL FIBRILLATION Qualifiers: Atrial fibrillation type: persistent Qualified Code(s): I48.1 - Persistent atrial fibrillation (6) CAD (coronary artery disease) Code(s): I25.10 - ATHSCL HEART DISEASE OF [place] CORONARY ARTERY W/O ANG PCTRS Qualifiers: Coronary Disease-Associated Artery/Lesion type: [place] artery [place] vs. 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 [employer] insulin use: without correction use Diabetes mellitus complication status: without complication Qualified Code(s): E11.9 - Type 2 diabetes mellitus without complications (9) Dyspnea Code(s): R06.00 - DYSPNEA, UNSPECIFIED Qualifiers: Dyspnea type: dyspnea on exertion Qualified Code(s): R06.09 - Other forms of dyspnea (10) HTN (hypertension) Code(s): I10 - ESSENTIAL (PRIMARY) HYPERTENSION Qualifiers: Hypertension type: essential hypertension Qualified Code(s): I10 - Essential (primary) hypertension (11) Parkinson disease Code(s): G20 - PARKINSON'S DISEASE Visit type - Emergency Visit Emergency Visit: Yes Care time: The patient presented to the Emergency Department on the above date and was hospitalized for further evaluation of their emergent condition. - New Patient This patient is new to me today: Yes Date on this admission: 02/17/18 - Critical Care Critical Care patient: No Hospitalist Screening - Colonoscopy Questionnaire Colonoscopy Questionnaire: Colonoscopy Questionnaire - Patient: 50 - 75 years old and never had a screening colonoscopy: No History of colon or rectal polyps, or CA: No History of IBD, Crohn's disease or UC: No History of abdominal radiation therapy as a child: No - Relative: 1 with colon or rectal CA, or polyps at age 60 or younger: No Colon or rectal CA diagnosed at age 45 or younger: No Multiple relatives with colon or rectal CA: No - Outcome: Screening Result: Negative Screen
[2018-02-17] MEDS ORDERED: ASPIRIN 300 MG SUPP.RECT PR ONE (15:34)
[2018-02-17] MEDS ORDERED: HEPARIN NA (PORCINE) 5,000 UNITS/ML 1ML VIAL IVPUSH PRN (15:58)
[2018-02-17] MEDS ORDERED: HEPARIN INFUSION - 25,000 UNITS/500 ML INFUS.BAG IVPB ONE (16:25)
[2018-02-17] MEDS ORDERED: HEPARIN NA (PORCINE) 5,000 UNITS/ML 1ML VIAL ONE (16:25)
[2018-02-17] MEDS ORDERED: ASPIRIN 300 MG SUPP.RECT RC ONE (16:26)
[2018-02-17] MEDS ORDERED: ALBUTEROL SO4 18 GM HFA INHALER IH PRN ×2 (16:46→16:52)
[2018-02-17] MEDS: HEPARIN - 25,000 UNIT in SODIUM CHLORIDE 495 ML IV SCH (16:50)
--- NOTE | 2018-02-17 18:12 | PN ---
Teaching Attending Note Name of Resident: Destinee Lewis ATTENDING PHYSICIAN STATEMENT I saw and evaluated the patient. I reviewed the resident's note and discussed the case with the resident. I agree with the resident's findings and plan as documented. SUBJECTIVE: Patient is lying in bed feeling tired. No shortness of breath, no nausea or vomiting. OBJECTIVE: Vital Signs Temperature 99.0 F 02/17/18 11:17 Pulse Rate 89 02/17/18 15:14 Respiratory Rate 20 02/17/18 15:14 Blood Pressure 134/97 02/17/18 15:14 O2 Sat by Pulse Oximetry (%) 99 02/17/18 15:14 CBCD WBC 6.1 K/mm3 (4.0-10.0) D 02/17/18 12:20 RBC 4.06 M/mm3 (3.60-5.2) 02/17/18 12:20 Hgb 11.1 GM/dL (10.7-15.3) D 02/17/18 12:20 Hct 34.5 % (32.4-45.2) 02/17/18 12:20 MCV 85.1 fl (80-96) 02/17/18 12:20 MCHC 32.2 g/dl (32.0-36.0) 02/17/18 12:20 RDW 15.0 % (11.6-15.6) 02/17/18 12:20 Plt Count 228 K/MM3 (134-434) D 02/17/18 12:20 MPV 7.3 fl (7.5-11.1) L 02/17/18 12:20 CMP Sodium 142 mmol/L (136-145) 02/17/18 12:20 Potassium 4.1 mmol/L (3.5-5.1) 02/17/18 12:20 Chloride 105 mmol/L (98-107) 02/17/18 12:20 Carbon Dioxide 29 mmol/L (21-32) 02/17/18 12:20 Anion Gap 8 (8-16) 02/17/18 12:20 BUN 15 mg/dL (7-18) 02/17/18 12:20 Creatinine 0.7 mg/dL (0.55-1.02) 02/17/18 12:20 Creat Clearance w eGFR > 60 (>60) 02/17/18 12:20 Random Glucose 117 mg/dL (74-106) H 02/17/18 12:20 Calcium 8.9 mg/dL (8.5-10.1) 02/17/18 12:20 Total Bilirubin 0.3 mg/dL (0.2-1.0) D 02/17/18 12:20 AST 16 U/L (15-37) 02/17/18 12:20 ALT 20 U/L (12-78) 02/17/18 12:20 Alkaline Phosphatase 97 U/L (45-117) 02/17/18 12:20 Total Protein 6.8 g/dl (6.4-8.2) 02/17/18 12:20 Albumin 3.6 g/dl (3.4-5.0) 02/17/18 12:20 CARDIAC ENZYMES Creatine Kinase 61 IU/L (26-192) 02/17/18 12:20 Troponin I < 0.02 ng/ml (0.00-0.05) 02/17/18 12:20 Current Medications Generic Name Dose Route Start Last Admin Trade Name Freq PRN Reason Stop Dose Admin Albuterol Sulfate 1 puff 02/17/18 16:52 Ventolin Hfa Inhaler - IH QID PRN ASTHMA Brimonidine Tartrate 1 drop 02/17/18 22:00 Alphagan 0.2% - OU BID SRIKANTH Heparin Sodium (Porcine) 1,000 unit 02/17/18 15:58 Heparin - IVPUSH PRN PRN Heparin Heparin Sodium (Porcine) 5,000 unit 02/17/18 15:58 Heparin - IVPUSH PRN PRN Heparin Heparin Sodium (Porcine) 25, 500 mls @ 20 mls/hr 02/17/18 16:00 02/17/18 16: 50 000 unit/ Sodium Chloride IV 1,000 unit/hr TITR SRIKANTH 20 mls/hr Protocol Administration 1,000 UNIT/HR Insulin Aspart 1 vial 02/18/18 07:00 Novolog Vial Sliding Scale - SQ TIDAC SRIKANTH Protocol Latanoprost 1 drop 02/17/18 22:00 Xalatan 0.005% Eye Drops - OU HS SRIKANTH Pantoprazole Sodium 20 mg 02/18/18 10:00 Protonix Iv IVPUSH DAILY SRIKANTH Timolol Maleate 1 drop 02/17/18 22:00 Timoptic 0.5% OU BID [facility] Tiotropium [place] 1 puff 02/18/18 10:00 Spiriva - IH DAILY [facility] Home Medications Medication Instructions Recorded Albuterol Sulfate Inhaler - 1 - 2 inh PO QID PRN 09/13/16 [Ventolin HFA Inhaler -] Bimatoprost [Lumigan] 1 drop OU DAILY 04/09/17 Apixaban [Eliquis -] 5 mg PO BID #60 tab 04/13/17 Acetaminophen [Tylenol .Regular 650 mg PO Q4H PRN #0 tablet 07/05/17 Strength -] Methimazole [Tapazole -] 5 mg PO TID #90 tablet 08/25/17 Calcium Carb/Vitamin D3/Vit K1 1 each PO WEEKLY 09/12/17 [Calcium + D Soft Chewable Tab] Cholecalciferol (Vitamin D3) 50,000 unit PO WEEKLY 09/12/17 [Vitamin D -] Nebulizer [Aeroeclipse II] 1 each MC Q6H PRN 09/12/17 Brimonidine Tartrate/Timolol 5 ml OU BID 02/17/18 [Combigan Eye Drops] Fluticasone Propionate [Flovent 250 mcg IH BID 02/17/18 Diskus] Metoprolol Succinate [Toprol Xl] 25 mg PO DAILY 02/17/18 Umeclidinium [place] [Incruse 62.5 mcg IH DAILY 02/17/18 Ellipta] Valsartan [Diovan] 160 mg PO DAILY 02/17/18 PE: as per resident's note. ASSESSMENT AND PLAN: This is an 82yo F with PMH of Prior CVA (no residual deficits), a-fib (on Eliquis and s/p cardioversion), dCHF, HTN, hyperthyroidism, DMII, asthma, and Parkinson's disease who presents due to dizziness and generalized weakness since 9 am. #Lethargy r/o recurrent CVA. CT head old lacunar infarct; ASA 300 [place] ; NPO, aspiration precautions , neuro consult , telemetry ;TTE, carotid dopplers -lipid panel, TFTs, A1c; Brain MRI #Hx of A fib. in NSR now. hold eliquis, start Hep gtt post Ct of the head after bleeding is ruled out # Hx of CHF stable,no evidence of acute exacerbation # HTN , patient is hypotension will hold BP meds # DMII iss, bgm # asthma albuterol nebs prn DVT Px: Heparin.
[2018-02-17] MEDS ORDERED: TIOTROPIUM BROMIDE 18 MCG CAPSULES IH SCH (22:00)
[2018-02-17] MEDS ORDERED: TIMOLOL 0.5% OPHTHALMIC SOL 5 ML BOTTLE OU SCH (22:00)
[2018-02-17] MEDS ORDERED: PATIENT'S OWN MEDICATION (NON-FORMULARY) (Brimonidine Tartrate/Timolol [Combigan 0.2%-0.5% OU SCH (22:00)
[2018-02-17] MEDS: LATANOPROST 0.005% OPHTH SOLN 2.5ML BOTTLE OU SCH (22:04)
[2018-02-17] MEDS: TIMOLOL 0.5% OPHTHALMIC SOL 5 ML BOTTLE OU SCH (22:05)
[2018-02-17] MEDS: BRIMONIDINE TARTRATE 0.2% OPHTHALMIC 5 ML BOTTLE OU SCH (22:05)
[2018-02-17] MEDS ORDERED: PT OWN MED DRAWER 7, Y5N ONE (23:44)
[2018-02-18] MEDS: HEPARIN NA (PORCINE) 5,000 UNITS/ML 1ML VIAL IVPUSH PRN ×2 (01:52→15:07)
[2018-02-18] MEDS: INSULIN SLIDING SCALE (NOVOLOG) 1 VIAL SQ SCH ×4 (06:20→21:25)
[2018-02-18] MEDS ORDERED: INSULIN SLIDING SCALE (NOVOLOG) 1 VIAL SQ SCH (07:00)
[2018-02-18 07:22] LABS: BASO % 0.5 % (0-2.0); EOS % 2.2 % (0-4.5); HEMATOCRIT 33.4 % (32.4-45.2); HEMOGLOBIN 10.9 GM/dL (10.7-15.3); LYMPH % 33.9 % (8-40); MCH 27.8 pg (25.7-33.7); MCHC 32.6 g/dl (32.0-36.0); MEAN CELL VOLUME 85.3 fl (80-96); MEAN PLT VOLUME 7.7 fl (7.5-11.1); MONO % 10.6 % (3.8-10.2); NEUT % 52.8 % (42.8-82.8); PLATELET COUNT 220 K/MM3 (134-434); RBC 3.92 M/mm3 (3.60-5.2); RDW 15.1 % (11.6-15.6); WHITE BLOOD COUNT 6.2 K/mm3 (4.0-10.0)
[2018-02-18 07:58] LABS: CHLORIDE 108 mmol/L (98-107); POTASSIUM 4.4 mmol/L (3.5-5.1); SODIUM 139 mmol/L (136-145)
--- NOTE | 2018-02-18 08:18 | PN ---
Physical Exam: SUBJECTIVE: Patient seen and examined Patient is comfortable with no acute distress. Her grand daughter at bedside. OBJECTIVE: Vital Signs Temperature 97.5 F L 02/18/18 06:34 Pulse Rate 70 02/18/18 06:34 Respiratory Rate 20 02/18/18 06:34 Blood Pressure 154/65 02/18/18 06:34 O2 Sat by Pulse Oximetry (%) 99 02/17/18 21:00 GENERAL: The patient is more awake, in no acute distress. HEAD: Normal with no signs of trauma. EYES: PERRL, extraocular movements intact, sclera anicteric, conjunctiva clear. ENT: Ears normal, oropharynx clear without exudates, moist mucous membranes. NECK: Trachea midline, full range of motion, supple. LUNGS: Breath sounds equal, clear to auscultation bilaterally, no wheezes, no crackles, no accessory muscle use. HEART: Regular rate and rhythm, S1, S2 positive without murmur, rub or gallop. ABDOMEN: Soft, nontender, nondistended, normoactive bowel sounds, no guarding, no rebound, no masses are appreciated. EXTREMITIES: 2+ pulses, warm, well-perfused, no edema. NEUROLOGICAL: Cranial nerves II through XII grossly intact. Normal speech, gait not observed. PSYCH: Normal mood, normal affect. SKIN: Warm, dry, normal turgor, no rashes or lesions noted CBCD WBC 6.2 K/mm3 (4.0-10.0) 02/18/18 06:00 RBC 3.92 M/mm3 (3.60-5.2) 02/18/18 06:00 Hgb 10.9 GM/dL (10.7-15.3) 02/18/18 06:00 Hct 33.4 % (32.4-45.2) 02/18/18 06:00 MCV 85.3 fl (80-96) 02/18/18 06:00 MCHC 32.6 g/dl (32.0-36.0) 02/18/18 06:00 RDW 15.1 % (11.6-15.6) 02/18/18 06:00 Plt Count 220 K/MM3 (134-434) 02/18/18 06:00 MPV 7.7 fl (7.5-11.1) 02/18/18 06:00 CMP Sodium 142 mmol/L (136-145) 02/17/18 12:20 Potassium 4.1 mmol/L (3.5-5.1) 02/17/18 12:20 Chloride 105 mmol/L (98-107) 02/17/18 12:20 Carbon Dioxide 29 mmol/L (21-32) 02/17/18 12:20 Anion Gap 8 (8-16) 02/17/18 12:20 BUN 15 mg/dL (7-18) 02/17/18 12:20 Creatinine 0.7 mg/dL (0.55-1.02) 02/17/18 12:20 Creat Clearance w eGFR > 60 (>60) 02/17/18 12:20 Random Glucose 117 mg/dL (74-106) H 02/17/18 12:20 Calcium 8.9 mg/dL (8.5-10.1) 02/17/18 12:20 Total Bilirubin 0.3 mg/dL (0.2-1.0) D 02/17/18 12:20 AST 16 U/L (15-37) 02/17/18 12:20 ALT 20 U/L (12-78) 02/17/18 12:20 Alkaline Phosphatase 97 U/L (45-117) 02/17/18 12:20 Total Protein 6.8 g/dl (6.4-8.2) 02/17/18 12:20 Albumin 3.6 g/dl (3.4-5.0) 02/17/18 12:20 CARDIAC ENZYMES Creatine Kinase 61 IU/L (26-192) 02/17/18 12:20 Troponin I < 0.02 ng/ml (0.00-0.05) 02/17/18 12:20 Current Medications Generic Name Dose Route Start Last Admin Trade Name Freq PRN Reason Stop Dose Admin Albuterol Sulfate 1 puff 02/17/18 16:52 Ventolin Hfa Inhaler - IH QID PRN ASTHMA Brimonidine Tartrate 1 drop 02/17/18 22:00 02/17/18 22:05 Alphagan 0.2% - OU 1 drop BID SRIKANTH Administration Heparin Sodium (Porcine) 1,000 unit 02/17/18 15:58 02/18/18 01:52 Heparin - IVPUSH 1,000 unit PRN PRN Administration Heparin Heparin Sodium (Porcine) 5,000 unit 02/17/18 15:58 Heparin - IVPUSH PRN PRN Heparin Heparin Sodium (Porcine) 25, 500 mls @ 20 mls/hr 02/17/18 16:00 02/18/18 01: 51 000 unit/ Sodium Chloride IV 1,100 unit/hr TITR SRIKANTH 22 mls/hr Protocol Titration 1,000 UNIT/HR Insulin Aspart 1 vial 02/18/18 07:00 02/18/18 06:20 Novolog Vial Sliding Scale - SQ Not Given ACHS [facility] Protocol Latanoprost 1 drop 02/17/18 22:00 02/17/18 22:04 Xalatan 0.005% Eye Drops - OU 1 drop HS [facility] Administration Pantoprazole Sodium 20 mg 02/18/18 10:00 Protonix Iv IVPUSH DAILY SRIKANTH Timolol Maleate 1 drop 02/17/18 22:00 02/17/18 22:05 Timoptic 0.5% OU 1 drop BID SRIKANTH Administration Tiotropium [place] 1 puff 02/18/18 10:00 Spiriva - IH DAILY [facility] Home Medications Medication Instructions Recorded Albuterol Sulfate Inhaler - 1 - 2 inh PO QID PRN 09/13/16 [Ventolin HFA Inhaler -] Bimatoprost [Lumigan] 1 drop OU DAILY 04/09/17 Apixaban [Eliquis -] 5 mg PO BID #60 tab 04/13/17 Acetaminophen [Tylenol .Regular 650 mg PO Q4H PRN #0 tablet 07/05/17 Strength -] Methimazole [Tapazole -] 5 mg PO TID #90 tablet 08/25/17 Calcium Carb/Vitamin D3/Vit K1 1 each PO WEEKLY 09/12/17 [Calcium + D Soft Chewable Tab] Cholecalciferol (Vitamin D3) 50,000 unit PO WEEKLY 09/12/17 [Vitamin D -] Nebulizer [Aeroeclipse II] 1 each MC Q6H PRN 09/12/17 Brimonidine Tartrate/Timolol 5 ml OU BID 02/17/18 [Combigan Eye Drops] Fluticasone Propionate [Flovent 250 mcg IH BID 02/17/18 Diskus] Metoprolol Succinate [Toprol Xl] 25 mg PO DAILY 02/17/18 Umeclidinium [place] [Incruse 62.5 mcg IH DAILY 02/17/18 Ellipta] Valsartan [Diovan] 160 mg PO DAILY 02/17/18 Laboratory Tests 02/18/18 02/18/18 06:00 06:00 Hemoglobin A1c % 6.2 H Triglycerides 67 Cholesterol 204 H Total LDL Cholesterol 121 H HDL Cholesterol 68 H ASSESSMENT AND PLAN: This is an 82yo F with PMH of Prior CVA (no residual deficits), a-fib (on Eliquis and s/p cardioversion), dCHF, HTN, hyperthyroidism, DMII, asthma, and Parkinson's disease who presents due to dizziness and generalized weakness since 9 am. #Lethargy improved , Mri no acute stroke. CT head old lacunar infarct; on heparin drip , aspiration precautions , neuro consult appreciated. telemetry, carotid dopplers negative. lipid panel as above, Hemoglobin A1c 6.2. # T2DM controlled continue current meds. #Hx of A fib. in NSR now. will discontinue Heaprin drip and will continue her Eliquis. # Hx of CHF stable,no evidence of acute exacerbation # HTN continue BP meds. # DMII iss, bgm # asthma albuterol nebs prn DVT Px: Eliquis Visit type - Emergency Visit Emergency Visit: Yes ED Registration Date: 02/17/18 Care time: The patient presented to the Emergency Department on the above date and was hospitalized for further evaluation of their emergent condition. - New Patient This patient is new to me today: No - Critical Care Critical Care patient: No - Discharge Referral Referred to [facility] Med P.C.: No
[2018-02-18 08:21] LABS: ALBUMIN 3.3 g/dl (3.4-5.0); ALK PHOS 93 U/L (45-117); ANION GAP 1 (8-16); BILIRUBIN,TOTAL 0.4 mg/dL (0.2-1.0); BLOOD UREA NITROGEN 19 mg/dL (7-18); CALCIUM 8.8 mg/dL (8.5-10.1); CHOLESTEROL 204 mg/dL (50-200); CO2 30 mmol/L (21-32); CREATININE 0.7 mg/dL (0.55-1.02); GLUCOSE,RANDOM 86 mg/dL (74-106); HDL CHOLESTEROL 68 mg/dL (40-60); LDL CHOLESTEROL (ONLY SJRH) 121 mg/dL (5-100); MAGNESIUM 2.2 mg/dL (1.8-2.4); PHOSPHOROUS 4.4 mg/dL (2.5-4.9); SGOT/AST 14 U/L (15-37); SGPT/ALT 21 U/L (12-78); TOT PROT 6.4 g/dl (6.4-8.2); TRIGLYCERIDES 67 mg/dL (35-160)
[2018-02-18] MEDS: BRIMONIDINE TARTRATE 0.2% OPHTHALMIC 5 ML BOTTLE OU SCH ×2 (09:38→21:22)
[2018-02-18] MEDS: PANTOPRAZOLE SODIUM 40 MG VIAL IVPUSH SCH (09:38)
[2018-02-18] MEDS: TIOTROPIUM BROMIDE 18 MCG CAPSULES IH SCH (09:39)
[2018-02-18] MEDS: TIMOLOL 0.5% OPHTHALMIC SOL 5 ML BOTTLE OU SCH ×2 (09:39→21:23)
[2018-02-18] MEDS: HEPARIN - 25,000 UNIT in SODIUM CHLORIDE 495 ML IV SCH (16:05)
--- NOTE | 2018-02-18 16:30 | CON.NEURO ---
Consult Consult Specialty:: NEUROLOGY-SINGH GRAMAJO - History of Present Illness History of Present Illness: This is an 82yo F with PMH of Prior CVA (no residual deficits), a-fib (on Eliquis and s/p cardioversion), dCHF, HTN, hyperthyroidism, DMII, asthma, and Parkinson's disease(not on any PD meds) who presents due to dizziness and generalized weakness since 9 am. Patient a poor historian and information is obtained by daughter who witnessed the event. According to her patient is currently slightly confused and her speech sounds more slurred than usual. Patient complains of numbness of tongue, difficulty swallowing and mild sob. L eyelid lag, dizziness with movement rest and closing eyes. She complains of diffuse weakness. When symptoms first occurred, she was in a seated position, felt diaphoretic chills, rigors and darkening of vision. Daughter states that she had very similar symptoms last time she had a stroke years ago, accompanied by HTN. In ED patient is hypertensive 190 systolic, O2 sat 88 on room air. She denies cp, cough, palpitations, abd pain, n/v/d, peripheral edema. She denies weakness now, states she feels better, has no weakness. Her gait x years has been slow with short steps (as per granddaughters) abeba at times she has urinary incontinence). She denies being treated for PD in past and reports her BP has been"low" . ER course was notable for: (1) labs (2)ekg (3) ct head,cta brain -both without evid. of acute infarction/stenosis of large vessels. - Past Medical History DRILL HAND: Yes: Parkinson's Cardio/Vascular: Yes: AFIB, HTN Pulmonary: Yes: Asthma ...: No Endocrine: Yes: Hyperthyroidism Additional Medical History: Glaucoma - Past Surgical History Past Surgical History: Yes: Hysterectomy - Alcohol/Substance Use Hx Alcohol Use: No - Smoking History Smoking history: Never smoked Have you smoked in the past 12 months: No Aproximately how many cigarettes per day: 0 Home Medications - Allergies Allergies/Adverse Reactions: Allergies Allergy/AdvReac Type Severity Reaction Status Date / Time No Known Allergies Allergy Verified 02/17/18 11:16 - Home Medications Home Medications: Ambulatory Orders Albuterol Sulfate Inhaler - [Ventolin HFA Inhaler -] 1 - 2 inh PO QID PRN Bimatoprost [Lumigan] 1 drop OU DAILY 04/09/17 Apixaban [Eliquis -] 5 mg PO BID #60 tab 04/13/17 Acetaminophen [Tylenol .Regular Strength -] 650 mg PO Q4H PRN #0 tablet Methimazole [Tapazole -] 5 mg PO TID #90 tablet 08/25/17 Calcium Carb/Vitamin D3/Vit K1 [Calcium + D Soft Chewable Tab] 1 each PO WEEKLY 09/12/17 Cholecalciferol (Vitamin D3) [Vitamin D -] 50,000 unit PO WEEKLY 09/12/17 Nebulizer [Aeroeclipse II] 1 each MC Q6H PRN 09/12/17 Brimonidine Tartrate/Timolol [Combigan Eye Drops] 5 ml OU BID 02/17/18 Fluticasone Propionate [Flovent Diskus] 250 mcg IH BID 02/17/18 Metoprolol Succinate [Toprol Xl] 25 mg PO DAILY 02/17/18 Umeclidinium [place] [Incruse Ellipta] 62.5 mcg IH DAILY 02/17/18 Valsartan [Diovan] 160 mg PO DAILY 02/17/18 Physical Exam-Neuro Vital Signs: Vital Signs Temperature 98.1 F 02/18/18 14:00 Pulse Rate 68 02/18/18 14:00 Respiratory Rate 18 02/18/18 14:00 Blood Pressure 132/76 02/18/18 14:00 O2 Sat by Pulse Oximetry (%) 98 02/18/18 10:00 Labs: CBC, BMP 02/18/18 06:00 02/18/18 06:00 INR, PTT INR 1.18 (0.82-1.09) H 02/17/18 12:20 - Neuro Exam Level Of Consciousness: Yes: Alert, Oriented to Person, Oriented to Place, Oriented to Time Eyes: Yes: PERRL (+ bilat. blepharospasm and periodic rhythmic neck titubation) Speech: Other (+ slight festination of speech) Dominant Hand: Right Mini Mental Exam: Unable to test Cranial Nerves II-XII Intact: No (+ neck titubation and blepharospasm.) DTR's: 0 Left Achilles, 0 Right Achilles, 1+ Left Bicep, 1+ Right Bicep, 1+ Left Tricep, 1+ Right Tricep, 1+ Left Brachioradialis, 1+ Right Brachioradialis Motor Strength: 5/5: Left Arm, Right Arm, Left Leg, Right Leg Gait: Other (Short steps/wide based) Assessment/Plan Pt. 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 The episode leading to admission likely hypotension due to dysautonomia that occurs in parkinsons plus syndromes or cardiogenic syncope?? due to afib. No evid. of CVA. Suggest: Syncope w/u/managemnet as planned. If she is found to be persistently hypotensive/orthostatic and this is not ascribed to her meds can consider rx. with mestinon or northera. Will follow as outpt. for rx. of Parkinsonism. Thank you, Herbert Garnica MD
[2018-02-18 16:56] LABS: URINE APPEARANCE CLEAR; URINE BILIRUBIN NEGATIVE (<2.0 mg/dL); URINE BLOOD NEGATIVE (NEGATIVE); URINE COLOR YELLOW; URINE GLUCOSE (UA) NEGATIVE (NEGATIVE); URINE KETONE NEGATIVE (NEGATIVE); URINE LEUK ESTERASE TRACE (NEGATIVE); URINE NITRITE NEGATIVE (NEGATIVE); URINE PROTEIN NEGATIVE (NEGATIVE); URINE UROBILINOGEN NEGATIVE mg/dL (0.2-1.0)
[2018-02-18 16:59] LABS: EPI CELLS RARE /HPF (FEW); URINE MUCUS RARE
[2018-02-18] MEDS ORDERED: PT OWN MED DRAWER 7, Y5N ONE (21:14)
[2018-02-18] MEDS: LATANOPROST 0.005% OPHTH SOLN 2.5ML BOTTLE OU SCH (21:24)
[2018-02-19] MEDS: INSULIN SLIDING SCALE (NOVOLOG) 1 VIAL SQ SCH ×4 (06:20→21:15)
[2018-02-19 08:07] LABS: HEMATOCRIT 31.2 % (32.4-45.2); HEMOGLOBIN 10.1 GM/dL (10.7-15.3); MCH 27.7 pg (25.7-33.7); MCHC 32.4 g/dl (32.0-36.0); MEAN CELL VOLUME 85.7 fl (80-96); MEAN PLT VOLUME 7.8 fl (7.5-11.1); PLATELET COUNT 201 K/MM3 (134-434); RBC 3.65 M/mm3 (3.60-5.2); RDW 15.1 % (11.6-15.6); WHITE BLOOD COUNT 5.5 K/mm3 (4.0-10.0)
[2018-02-19] MEDS ORDERED: PT OWN MED DRAWER 7, Y5N ONE ×2 (09:15→20:54)
[2018-02-19] MEDS: APIXABAN 5 MG TABLET PO SCH ×2 (09:32→21:14)
[2018-02-19] MEDS: PANTOPRAZOLE SODIUM 40 MG VIAL IVPUSH SCH (09:32)
[2018-02-19] MEDS: TIMOLOL 0.5% OPHTHALMIC SOL 5 ML BOTTLE OU SCH ×2 (09:33→21:14)
[2018-02-19] MEDS: TIOTROPIUM BROMIDE 18 MCG CAPSULES IH SCH (09:34)
[2018-02-19] MEDS: BRIMONIDINE TARTRATE 0.2% OPHTHALMIC 5 ML BOTTLE OU SCH ×2 (09:34→21:11)
--- NOTE | 2018-02-19 10:04 | PN ---
Progress Note (short form) - Note Progress Note: Chief Complaint: Events noted notes reviewed. dizziness and near syncope, denies any chest pain or dyspnea History of Present Illness: Seen and examined on telemetry. Full consult dictated Medications: Current Medications Albuterol Sulfate (Ventolin Hfa Inhaler -) 1 puff IH QID PRN PRN Reason: ASTHMA Apixaban (Eliquis -) 5 mg PO BID [facility] Last Admin: 02/19/18 09:32 Dose: 5 mg Brimonidine Tartrate (Alphagan 0.2% -) 1 drop OU BID [facility] Last Admin: 02/19/18 09:34 Dose: 1 drop Insulin Aspart (Novolog Vial Sliding Scale -) 1 vial SQ ACHS [facility] PRN Reason: Protocol Last Admin: 02/19/18 06:20 Dose: Not Given Latanoprost (Xalatan 0.005% Eye Drops -) 1 drop OU HS [facility] Last Admin: 02/18/18 21:24 Dose: 1 drop Pantoprazole Sodium (Protonix Iv) 20 mg IVPUSH DAILY [facility] Last Admin: 02/19/18 09:32 Dose: 20 mg Timolol Maleate (Timoptic 0.5%) 1 drop OU BID [facility] Last Admin: 02/19/18 09:33 Dose: 1 drop Tiotropium [place] (Spiriva -) 1 puff IH DAILY [facility] Last Admin: 02/19/18 09:34 Dose: 1 puff Home Medications Medication Instructions Recorded Acetaminophen [Pain Relief] 650 mg PO Q6H 09/13/16 Albuterol Sulfate Inhaler - 1 - 2 inh PO QID PRN 09/13/16 [Ventolin HFA Inhaler -] Bimatoprost [Lumigan] 1 drop OU DAILY 04/09/17 Brimonidine Tartrate/Timolol 5 ml OU DAILY 04/09/17 [Combigan 0.2%-0.5% Eye Drops] Apixaban [Eliquis -] 5 mg PO BID #60 tab 04/13/17 Metoprolol Tartrate [Lopressor -] 50 mg PO BID #60 tablet 04/13/17 Lisinopril [Zestril] 2.5 mg PO DAILY 07/04/17 Omeprazole 40 mg PO DAILY 07/04/17 Review of Systems - Review of Systems Constitutional: denies: Chills, Fever Cardiovascular: As noted above Respiratory: denies: Cough or sputum production Gastrointestinal: denies: nausea, vomiting, diarrhea, constipation or Abdominal Pain Genitourinary: denies: Dysuria Musculoskeletal: denies: Joint Pain Neurological: reports: Tremors Vital Signs: Last Vital Signs Temp Pulse Resp BP Pulse Ox 97.4 F L 64 20 152/58 92 L 02/19/18 06:00 02/19/18 06:00 02/19/18 06:00 02/19/18 06:00 02/18/18 21:00 Intake & Output 02/16/18 02/17/18 02/18/18 02/19/18 23:59 23:59 23:59 23:59 Intake Total 220 1010 140 Balance 220 1010 140 Weight 186 lb 186 lb HEENT: MCKINLEY, EOMI Unicteric Sclera Neck: Supple Negative JVD No Bruit Cardiovascular: Pulse Irregularly Irregular Grade 2/6 ADRIANNE Respiratory: Diminished Breath Sounds at the Bases Gastrointestinal: Soft Benign Normal Bowel Sounds Ext: No Edema Labs: CBC, BMP 02/19/18 06:00 02/18/18 06:00 Hepatic Panel Total Bilirubin 0.4 mg/dL (0.2-1.0) D 02/18/18 06:00 AST 14 U/L (15-37) L 02/18/18 06:00 ALT 21 U/L (12-78) 02/18/18 06:00 Alkaline Phosphatase 93 U/L (45-117) 02/18/18 06:00 Albumin 3.3 g/dl (3.4-5.0) L 02/18/18 06:00 INR, PTT INR 1.18 (0.82-1.09) H 02/17/18 12:20 Assessment/Plan ASSESSMENT: 1. Dizziness and near syncope, differential diagnosis includes neuro- cardiogenic syncope vs. autonomic dysfunction in association with Parkinson's disease, unlikely to arrhythmia related (considering her clinical presentation) 2. Coronary artery disease angina pectoris 3. Diastolic left ventricular dysfunction with chronic class I [place] Heart Association classification left ventricular failure compensated euvolemic 4. Paroxysmal atrial fibrillation [id number] of 6, currently in sinus rhythm on A/C with NOAC's 5. HTN/HCVD 6. Diabetes mellitus 7. Parkinson's disease, questionable 8. History of hyperthyroidism 9. History of reactive airway disease/bronchial asthma 10. History of gastro-esophageal reflux disease 11. Anemia PLAN: 1. Resume Lopressor with caution hemodynamics permitting 2. Resume Lisinopril with caution hemodynamics permitting 3. Continue Eliquis therapy indefinitely unless it is absolutely contraindicated considering the above-noted [id number] of 6, appropriate dosage 4. Obtain orthostatic blood pressures 5. Patient may require extended outpatient monitor to exclude lm-arrhythmia Meron Perera MD
--- NOTE | 2018-02-19 11:19 | CONS ---
DATE OF CONSULTATION: 02/19/2018 CONSULTATION REQUESTED BY: Hospitalist CHIEF COMPLAINT: Dizziness, near-syncope, cardiovascular evaluation. History was obtained from the patient, who interpreted. An 82-year-old female of descent with known history of coronary artery disease, angina pectoris, chronic diastolic left ventricular dysfunction with Class 1 [place] Heart Association Classification left ventricular failure, paroxysmal atrial fibrillation, CHADS2-VASc sore of 6, on chronic anticoagulation therapy, hypertensive cardiovascular disease, diabetes mellitus, hypercholesterolemia, hyperthyroidism, reactive airway disease, bronchial asthma, questionable Parkinson disease, who presented to [facility] with sudden onset of dizziness and questionable near-syncope. Patient denied any loss of consciousness. Patient denied any associated palpitations. Dizziness worsened with certain movements. Patient denied any associated nausea or vomiting. Patient denies any chest discomfort. Patient continues to report persistence of dyspnea with moderate physical exertion. Patient denies any orthopnea or paroxysmal nocturnal dyspnea. Patient reports intermittent bilateral lower extremity edema that worsens at the latter part of the day. Patient reports fatigue and tiredness. PAST MEDICAL HISTORY: Coronary artery disease, angina pectoris, diastolic left ventricular dysfunction with chronic Class 1 [place] Heart [employer] Classification left ventricular failure, hypertensive cardiovascular disease, diabetes mellitus, hypercholesterolemia, hyperthyroidism, reactive airway disease, questionable Parkinson disease. PAST SURGICAL HISTORY: Hysterectomy. SOCIAL HISTORY: Nonsmoker. FAMILY HISTORY: Positive for coronary artery disease. ALLERGIES: None reported. MEDICAL THERAPY: Currently includes Ventolin HFA; Eliquis 5 mg twice a day; Alphagan eyedrops; insulin; Xalatan eyedrops; Protonix 20 mg once a day; Timoptic eyedrops; and Spiriva 1 puff once a day. REVIEW OF SYSTEMS: Head/Neck: She denies headache, photophobia, blurring of vision. Respiratory: No cough or sputum production. Cardiovascular: As noted above. Gastrointestinal: She denies nausea, vomiting, diarrhea, abdominal discomfort. Genitourinary: No symptoms reported. Musculoskeletal: Tremors. PHYSICAL EXAMINATION: Vital Signs: Blood pressure is 152/58 mmHg, pulse rate is 64 beats/min. Head/Neck: Pupils equal and reactive to light and accommodation. Extraocular movements are intact. Anicteric sclerae. Negative JVD. No bruit appreciated. Chest: Clear to auscultation and percussion. Cardiovascular: S1, S2, regular, grade 1/6 systolic ejection murmur. No clicks or gallops. Abdomen: Soft, benign, normoactive bowel sounds. Extremities: Negative edema. Intact distal pulses. No calf tenderness. Electrocardiogram reveals sinus rhythm, left axis deviation, left anterior fascicular block with right bundle branch block. CBC revealed a white cell count of 5.5, hemoglobin 10.1, platelets 201. Basic metabolic profile revealed a sodium of 139, potassium 4.4, BUN 14, creatinine 0.7, glucose 86. ASSESSMENT: 1. Dizziness and near-syncope. Differential diagnosis includes neurocardiogenic syncope versus autonomic dysfunction in association with Parkinson disease, unlikely to be arrhythmia-related considering her clinical presentation. 2. Coronary artery disease, angina pectoris, stable. 3. Diastolic left ventricular dysfunction with chronic Class 1 [place] Heart Association Classification left ventricular failure, compensated/euvolemic. 4. Paroxysmal atrial fibrillation, currently in sinus rhythm, on chronic anticoagulation therapy, CHADS2-VASc score of 6. 5. Hypertensive cardiovascular disease. 6. Diabetes mellitus. 7. Parkinson disease, questionable. 8. History of hyperthyroidism. 9. History of reactive airway disease, bronchial asthma. 10. History of gastroesophageal reflux disease. 11. Anemia. RECOMMENDATION: 1. Resumption of Lopressor therapy with caution, hemodynamics permitting. 2. Resumption of lisinopril therapy with caution, hemodynamic permitting. 3. Continuation of Eliquis therapy indefinitely unless it is absolutely contraindicated, considering the above-noted CHADS2-VASc score of 6, appropriate dosage. 4. Obtain orthostatic blood pressures. 5. Patient may require extended outpatient monitoring to exclude potential bradyarrhythmia, although unlikely. Thank you for the kind referral. SELENA BRADLEY M.D. [id number]
[2018-02-19] MEDS: METOPROLOL TARTRATE 25 MG TABLET (FP) PO SCH ×2 (12:09→21:14)
--- NOTE | 2018-02-19 16:36 | PN ---
<Quinn Westbrook - Last Filed: 02/19/18 16:54> Physical Exam: SUBJECTIVE: Patient seen and examined at bedside. Patient feels better today. No events overnight. OBJECTIVE: Vital Signs Period Temp Pulse Resp BP Sys/Ugarte Pulse Ox Last 24 Hr 97.4 F-98.2 F 62-94 20-20 113-152/57-85 92-95 GENERAL: The patient is awake, alert, and fully oriented, in no acute distress. NECK: Trachea midline, full range of motion, supple. LUNGS: Breath sounds equal, clear to auscultation bilaterally, no wheezes, no crackles, no accessory muscle use. HEART: Regular rate and rhythm, S1, S2 without murmur, rub or gallop. ABDOMEN: Soft, nontender, nondistended, normoactive bowel sounds, no guarding, no rebound, no hepatosplenomegaly, no masses. EXTREMITIES: 2+ pulses, warm, well-perfused, no edema. NEUROLOGICAL: Cranial nerves II through X grossly intact. Normal speech, gait not observed. PSYCH: Normal mood, normal affect. SKIN: Warm, dry, normal turgor, no rashes or lesions noted Laboratory Results - last 24 hr 02/18/18 02/18/18 02/18/18 13:30 16:30 21:21 WBC RBC Hgb Hct MCV MCH MCHC RDW Plt Count MPV PTT (Actin FS) POC Glucometer 133 136 Urine Color Yellow Urine Appearance Clear Urine pH 5.0 Ur Specific [place] 1.023 Urine Protein Negative Urine Glucose (UA) Negative Urine Ketones Negative Urine Blood Negative Urine Nitrite Negative Urine Bilirubin Negative Urine Urobilinogen Negative Ur Leukocyte Esterase Trace Urine WBC (Auto) 6 Urine RBC (Auto) 1 Ur Epithelial Cells Rare Urine Mucus Rare 02/19/18 02/19/18 02/19/18 06:00 06:00 06:19 WBC 5.5 RBC 3.65 Hgb 10.1 L Hct 31.2 L MCV 85.7 MCH 27.7 MCHC 32.4 RDW 15.1 Plt Count 201 MPV 7.8 PTT (Actin FS) 99.3 H D POC Glucometer 72 Urine Color Urine Appearance Urine pH Ur Specific [place] Urine Protein Urine Glucose (UA) Urine Ketones Urine Blood Urine Nitrite Urine Bilirubin Urine Urobilinogen Ur Leukocyte Esterase Urine WBC (Auto) Urine RBC (Auto) Ur Epithelial Cells Urine Mucus 04/01/18 11:12 WBC RBC Hgb Hct MCV MCH MCHC RDW Plt Count MPV PTT (Actin FS) POC Glucometer 136 Urine Color Urine Appearance Urine pH Ur Specific [place] Urine Protein Urine Glucose (UA) Urine Ketones Urine Blood Urine Nitrite Urine Bilirubin Urine Urobilinogen Ur Leukocyte Esterase Urine WBC (Auto) Urine RBC (Auto) Ur Epithelial Cells Urine Mucus Active Medications Generic Name Dose Route Start Last Admin Trade Name Freq PRN Reason Stop Dose Admin Albuterol Sulfate 1 puff 02/17/18 16:52 Ventolin Hfa Inhaler - IH QID PRN ASTHMA Apixaban 5 mg 02/19/18 10:00 02/19/18 09:32 Eliquis - PO 5 mg BID SRIKANTH Administration Brimonidine Tartrate 1 drop 02/17/18 22:00 02/19/18 09:34 Alphagan 0.2% - OU 1 drop BID SRIKANTH Administration Insulin Aspart 1 vial 02/18/18 07:00 02/19/18 16:23 Novolog Vial Sliding Scale - SQ Not Given ACHS SRIKANTH Protocol Latanoprost 1 drop 02/17/18 22:00 02/18/18 21:24 Xalatan 0.005% Eye Drops - OU 1 drop HS SRIKANTH Administration Metoprolol Tartrate 25 mg 02/19/18 11:00 02/19/18 12:09 Lopressor - PO 25 mg BID SRIKANTH Administration Pantoprazole Sodium 20 mg 02/18/18 10:00 02/19/18 09:32 Protonix Iv IVPUSH 20 mg DAILY SRIKANTH Administration Timolol Maleate 1 drop 02/17/18 22:00 02/19/18 09:33 Timoptic 0.5% OU 1 drop BID SRIKANTH Administration Tiotropium [place] 1 puff 02/18/18 10:00 02/19/18 09:34 Spiriva - IH 1 puff DAILY SRIKANTH Administration ASSESSMENT/PLAN: This is an 82yo F with PMH of Prior CVA (no residual deficits), a-fib (on Eliquis and s/p cardioversion), dCHF, HTN, hyperthyroidism, DMII, asthma, and Parkinson's disease admitted for the workup of dizziness and generalized weakness. #Slurred speech and lid lag on presentation; r/o CVA- resolved -Neuro onboard; pt ssx less likely CVA and more 2/2 to parkinsons -CT head, CTA and brain MRI all not indicative of infarct -Carotid dopplers show no evidence of stenosis -A1c 6.7, lipid panel elevated, TFTs WNL #A fib on eliquis -stop Hep gtt -restart eliquis #CHF -CXR unremarkable -no evidence of acute exacerbation #HTN -will restart meds as per cardio #DMII -BGM ACHS -ISS ACHS #asthma -nebs prn #FEN -no fluids indicated -trend lytes -npo #Prophylaxsis -on eliquis -Protonix #Dispo -Admit to tele -plan for DC tomorrow after REPACKER aranged. Visit type - Emergency Visit Emergency Visit: Yes ED Registration Date: 02/17/18 Care time: The patient presented to the Emergency Department on the above date and was hospitalized for further evaluation of their emergent condition. - New Patient This patient is new to me today: Yes Date on this admission: 02/19/18 - Critical Care Critical Care patient: No <Sundar Leong - Last Filed: 02/20/18 16:14> Physical Exam: possible dc in am once the outpatient services are resumed.
[2018-02-19] MEDS: LATANOPROST 0.005% OPHTH SOLN 2.5ML BOTTLE OU SCH (21:15)
[2018-02-20] MEDS: INSULIN SLIDING SCALE (NOVOLOG) 1 VIAL SQ SCH (06:24)
[2018-02-20 07:12] LABS: HEMATOCRIT 30.7 % (32.4-45.2); MCH 27.9 pg (25.7-33.7); MCHC 32.6 g/dl (32.0-36.0); MEAN CELL VOLUME 85.6 fl (80-96); PLATELET COUNT 205 K/MM3 (134-434); RBC 3.59 M/mm3 (3.60-5.2); WHITE BLOOD COUNT 5.8 K/mm3 (4.0-10.0)
[2018-02-20] MEDS: BRIMONIDINE TARTRATE 0.2% OPHTHALMIC 5 ML BOTTLE OU SCH (10:00)
[2018-02-20] MEDS: APIXABAN 5 MG TABLET PO SCH (10:00)
[2018-02-20] MEDS: METOPROLOL TARTRATE 25 MG TABLET (FP) PO SCH (10:00)
[2018-02-20] MEDS: TIMOLOL 0.5% OPHTHALMIC SOL 5 ML BOTTLE OU SCH (10:00)
[2018-02-20] MEDS: TIOTROPIUM BROMIDE 18 MCG CAPSULES IH SCH (10:00)
--- NOTE | 2018-02-20 10:19 | CONSULT ---
Admitting History and Physical - Primary Care Physician PCP: Sundar Leong - Admission History of Present Illness: Per EMR: This is an 82yo F with PMH of Prior CVA (no residual deficits), a-fib (on Eliquis and s/p cardioversion), dCHF, HTN, hyperthyroidism, DMII, asthma, and Parkinson's disease admitted for the workup of dizziness and generalized weakness. #Slurred speech and lid lag on presentation; r/o CVA- resolved -Neuro onboard; pt ssx less likely CVA and more 2/2 to parkinsons -CT head, CTA and brain MRI all not indicative of infarct Selected Entries 02/19/18 02/19/18 02/19/18 01:43 06:00 09:25 Breakfast 75% Diet Tolerated Supper Temperature 97.7 F 97.4 F L 02/19/18 02/19/18 02/19/18 10:00 14:00 17:44 Breakfast Diet Tolerated Supper Temperature 98 F 98.2 F 98.7 F 02/19/18 02/19/18 02/20/18 21:00 22:23 01:00 Breakfast Diet Tolerated Supper 75% Temperature 98.3 F 98.1 F 02/20/18 02/20/18 05:00 09:58 Breakfast 100% Diet Tolerated Well Supper Temperature 97.9 F Laboratory Tests 02/20/18 06:42 WBC 5.8 On regular diet/thin liquids. This is my first consult with this pt. 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 cervical CA or ovarian CA S/P hyterectomy) Endocrine: Yes: Hyperthyroidism - Past Surgical History Past Surgical History: Yes: Hysterectomy - Advance Directives Advance Directives: Yes: Health Care Proxy - Smoking History Smoking history: Never smoked Have you smoked in the past 12 months: No Aproximately how many cigarettes per day: 0 - Alcohol/Substance Use Hx Alcohol Use: No History - Admission Reason For Visit: VERTIGO; WEAKNESS - Diagnostics X-ray: Report Reviewed CT Scan: Report Reviewed MRI: Report Reviewed - General Mental Status: Alert and Oriented, Awake and Alert, Able to Follow Commands Attention: Intact Ability to Follow Directions: Good Head/Neck Control: WFL - Hearing Hearing: Normal Speech Evaluation - Communication Primary Language: SYRIAN Communication: Yes: Within Normal Limits Oral Expression Ability: Yes: No Impairment - Speech Production Able to Make Needs Known: Yes: WNL Intelligibility: Yes: WNL - Speech Characteristics Voice Loudness: Normal Voice Pitch: Yes: Normal Voice Phonatory-based Quality: Yes: Normal Speech Pattern: Normal Speech Clarity: < 100% Nasal Resonance: Normal Articulation: Yes: Precise Rate of Speech: Intact - Language/Auditory Comprehension Follows: Yes: 2 Stage Simple Commands - Language/Verbal Expression Able to Respond to Simple Queries: Yes: WNL Able to Communicate Wants and Needs: Yes: WNL Functional Communication Status: Yes: WNL - Swallow Evaluation/Bedside Assessment Current Nutritional Intake: Regular, Thin Liquids Oral Secretions: Yes: WFL Dentition: Yes: Missing Teeth Facial Symmetry at Rest: Facial Droop Right (slight at rest) Facial Symmetry on Retraction: Symmetrical Facial Movement: Controlled Sensation: Normal Against Resistance Opening: Normal Against Resistance Closing: Normal Pucker Lips: Normal Smile: Normal Lingual Movement: Deviates Left Lingual Speed of Movement: Normal Lingual Movement Strgth Against Opposition: Normal Lingual Movement Characteristics: Normal Velopharyngeal Movement: Normal Laryngeal Elevation: WFL Laryngeal Movement: Able to Palpate Rate of Intake: WFL Bolus Size: WFL Labial Seal: WFL Chewing: WFL Oral Prep Time: WFL A-P Transit: WFL Pocketing: None Coughing/Throat Clear: No Change in Voice: No Recommendations - Speech Evaluation, Impression/Plan Impression: Speech, language, swallowing intact. Baseline head tremor. - Dysphagia Impressions/Plan Swallowing Skills: [facility] Dysphagia Impressions: No Impairment *Silent aspiration: cannot be R/O at bedside - Recommendations Diet Consistency: Regular Medication Administration: Whole with water Liquids: Thin Liquids
--- NOTE | 2018-02-20 10:21 | PN ---
Progress Note, Physician Chief Complaint: Events noted Denies dizziness History of Present Illness: Patient was seen and examined. Awake and alert. Chart was reviewed Denies chest pain, SOB or palpitations Denies dizziness - Current Medication List Current Medications: Active Medications Albuterol Sulfate (Ventolin Hfa Inhaler -) 1 puff IH QID PRN PRN Reason: ASTHMA Apixaban (Eliquis -) 5 mg PO BID [facility] Last Admin: 02/19/18 21:14 Dose: 5 mg Brimonidine Tartrate (Alphagan 0.2% -) 1 drop OU BID [facility] Last Admin: 02/19/18 21:11 Dose: 1 drop Insulin Aspart (Novolog Vial Sliding Scale -) 1 vial SQ ACHS SRIKANTH PRN Reason: Protocol Last Admin: 02/20/18 06:24 Dose: Not Given Latanoprost (Xalatan 0.005% Eye Drops -) 1 drop OU HS [facility] Last Admin: 02/19/18 21:15 Dose: 1 drop Metoprolol Tartrate (Lopressor -) 25 mg PO BID [facility] Last Admin: 02/19/18 21:14 Dose: 25 mg Pantoprazole Sodium (Protonix Iv) 20 mg IVPUSH DAILY [facility] Last Admin: 02/19/18 09:32 Dose: 20 mg Timolol Maleate (Timoptic 0.5%) 1 drop OU BID [facility] Last Admin: 02/19/18 21:14 Dose: 1 drop Tiotropium [place] (Spiriva -) 1 puff IH DAILY [facility] Last Admin: 02/19/18 09:34 Dose: 1 puff - Objective Vital Signs: Vital Signs Temperature 97.9 F 02/20/18 05:00 Pulse Rate 60 02/20/18 05:00 Respiratory Rate 20 02/20/18 05:00 Blood Pressure 150/77 02/20/18 05:00 O2 Sat by Pulse Oximetry (%) 93 L 02/19/18 21:00 Neck: Yes: Supple Cardiovascular: Yes: Pulse Irregular, S1, S2 Respiratory: Yes: Diminished Gastrointestinal: Yes: Normal Bowel Sounds, Soft. No: Tenderness Edema: No Labs: CBC, BMP 02/20/18 06:42 Problem List - Problems (1) CVA (cerebral vascular accident) Code(s): I63.9 - CEREBRAL INFARCTION, UNSPECIFIED Qualifiers: CVA mechanism: unspecified Qualified Code(s): I63.9 - Cerebral infarction, unspecified (2) Vertigo Code(s): R42 - DIZZINESS AND GIDDINESS (3) Weakness Code(s): R53.1 - WEAKNESS (4) Atrial fibrillation Code(s): I48.91 - UNSPECIFIED ATRIAL FIBRILLATION Qualifiers: Atrial fibrillation type: persistent Qualified Code(s): I48.1 - Persistent atrial fibrillation (5) CAD (coronary artery disease) Code(s): I25.10 - ATHSCL HEART DISEASE OF [place] CORONARY ARTERY W/O ANG PCTRS Qualifiers: Coronary Disease-Associated Artery/Lesion type: [place] artery [place] vs. 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: without care home use Diabetes mellitus complication status: without complication Qualified Code(s): E11.9 - Type 2 diabetes mellitus without complications (7) HTN (hypertension) Code(s): I10 - ESSENTIAL (PRIMARY) HYPERTENSION Qualifiers: Hypertension type: essential hypertension Qualified Code(s): I10 - Essential (primary) hypertension (8) Hyperthyroidism Code(s): E05.90 - THYROTOXICOSIS, UNSP WITHOUT THYROTOXIC CRISIS OR STORM (9) Parkinson disease Code(s): G20 - PARKINSON'S DISEASE (10) Reactive airway disease Code(s): J45.909 - UNSPECIFIED ASTHMA, UNCOMPLICATED Qualifiers: Asthma severity: unspecified severity Asthma persistence: unspecified Asthma complication type: uncomplicated Qualified Code(s): J45.909 - Unspecified asthma, uncomplicated Assessment/Plan 1. Dizziness and near syncope - possible neuro-cardiogenic syncope vs. autonomic dysfunction in association with Parkinson's disease 2. Coronary artery disease angina pectoris 3. Diastolic left ventricular dysfunction with chronic class I [place] [employer] classification left ventricular failure compensated/euvolemic 4. Paroxysmal atrial fibrillation [id number] of 6, currently in sinus rhythm on A/C with NOAC 5. HTN/HCVD 6. Diabetes mellitus 7. Possible parkinson's disease 8. History of hyperthyroidism 9. History of reactive airway disease/bronchial asthma 10. History of gastro-esophageal reflux disease 11. Anemia PLAN: 1. Continue Lopressor with caution as tolerated (Patient was given Metoprolol ER 12.5 mg when she was discharged from [facility])) 2. Continue Eliquis therapy indefinitely unless it is absolutely contraindicated considering the above-noted [id number] of 6 3. Obtain orthostatic blood pressures 4. Patient may require extended outpatient monitor to exclude ml-arrhythmia Discharge planning Further plans are to follow Johann Cowan MD
--- NOTE | 2018-02-20 10:29 | DS ---
Physical Exam: Patient is comfortable will discharge the patient home. <Sundar Leong - Last Filed: 02/20/18 16:14> Physical Exam: SUBJECTIVE: Patient seen and examined at bedside. no new complaints. Patient eager to go home. OBJECTIVE: Vital Signs Period Temp Pulse Resp BP Sys/Ugarte Pulse Ox Last 24 Hr 97.9 F-98.7 F 60-86 18-20 118-150/69-98 93 PHYSICAL EXAM GENERAL: The patient is awake, alert, and fully oriented, in no acute distress. HEAD: Normal with no signs of trauma. LUNGS: Breath sounds equal, clear to auscultation bilaterally, no wheezes, no crackles, no accessory muscle use. HEART: Regular rate and rhythm, S1, S2 without murmur, rub or gallop. ABDOMEN: Soft, nontender, nondistended, normoactive bowel sounds, no guarding, no rebound, no hepatosplenomegaly, no masses. EXTREMITIES: 2+ pulses, warm, well-perfused, no edema. NEUROLOGICAL: Cranial nerves II through X grossly intact. Normal speech, gait not observed. SKIN: Warm, dry, normal turgor, no rashes or lesions noted. LABS Laboratory Results - last 24 hr 02/19/18 02/19/18 02/19/18 11:12 16:22 21:13 WBC RBC Hgb Hct MCV MCH MCHC RDW Plt Count MPV POC Glucometer 136 109 103 02/20/18 02/20/18 06:42 07:10 WBC 5.8 RBC 3.59 L Hgb 10.0 L Hct 30.7 L MCV 85.6 MCH 27.9 MCHC 32.6 RDW 15.0 Plt Count 205 MPV 8.0 POC Glucometer 74 HOSPITAL COURSE: Date of Admission:02/17/18 This is an 82yo F w/ PMH Prior CVA (no residual deficits), a-fib (on Eliquis and s/p cardioversion), dCHF, HTN, hyperthyroidism, DMII, asthma, and Parkinson' s disease who presented to the ER c/o dizziness and generalized weakness. In the ED, the patient was found to have diffuse weakness, left eyelid lag, dizziness with movement as well as while at rest. The patient was also hypertensive to 194/94 and was saturating 88% on room air. She was admitted for further workup of her dizziness and to rule out a stroke. Neurology was consulted. Cardiology was consulted. A speech and swallow eval was requested. A CT and CTA of the head were negative for acute bleed. An MRI of the brain was negative for acute infarct. A carotid doppler was negative for stenosis. Neurology attributed the patient's symptoms to her preexisting parkinson's. Her symptoms resolved and she was discharged home with VNS and instructions to follow up with her primary care physician, a neurologist and a arc cutter within one week of discharge. Date of Discharge: 02/20/18 Minutes to complete discharge: 49 <Quinn Westbrook - Last Filed: 02/20/18 21:37> Discharge Summary - Home Medications Comprehensive Discharge Medication List: Ambulatory Orders Albuterol Sulfate Inhaler - [Ventolin HFA Inhaler -] 1 - 2 inh PO QID PRN Bimatoprost [Lumigan] 1 drop OU DAILY 04/09/17 Apixaban [Eliquis -] 5 mg PO BID #60 tab 04/13/17 Acetaminophen [Tylenol .Regular Strength -] 650 mg PO Q4H PRN #0 tablet Methimazole [Tapazole -] 5 mg PO TID #90 tablet 08/25/17 Calcium Carb/Vitamin D3/Vit K1 [Calcium + D Soft Chewable Tab] 1 each PO WEEKLY 09/12/17 Cholecalciferol (Vitamin D3) [Vitamin D -] 50,000 unit PO WEEKLY 09/12/17 Nebulizer [Aeroeclipse II] 1 each MC Q6H PRN 09/12/17 Brimonidine Tartrate/Timolol [Combigan 0.2%-0.5% Eye Drops] 5 ml OU BID Fluticasone Propionate [Flovent Diskus] 250 mcg IH BID 02/17/18 Metoprolol Succinate [Toprol Xl] 25 mg PO DAILY 02/17/18 Umeclidinium Donna [Incruse Ellipta] 62.5 mcg IH DAILY 02/17/18 Valsartan [Diovan] 160 mg PO DAILY 02/17/18 <Sundar Leong - Last Filed: 02/20/18 16:14> Reason For Visit: VERTIGO; WEAKNESS Current Active Problems CVA (cerebral vascular accident) (Acute) Vertigo (Acute) Weakness (Acute) - Home Medications Comprehensive Discharge Medication List: Ambulatory Orders Albuterol Sulfate Inhaler - [Ventolin HFA Inhaler -] 1 - 2 inh PO QID PRN Bimatoprost [Lumigan] 1 drop OU DAILY 04/09/17 Apixaban [Eliquis -] 5 mg PO BID #60 tab 04/13/17 Acetaminophen [Tylenol .Regular Strength -] 650 mg PO Q4H PRN #0 tablet Methimazole [Tapazole -] 5 mg PO TID #90 tablet 08/25/17 Calcium Carb/Vitamin D3/Vit K1 [Calcium + D Soft Chewable Tab] 1 each PO WEEKLY 09/12/17 Cholecalciferol (Vitamin D3) [Vitamin D -] 50,000 unit PO WEEKLY 09/12/17 Nebulizer [Aeroeclipse II] 1 each MC Q6H PRN 09/12/17 Brimonidine Tartrate/Timolol [Combigan Eye Drops] 5 ml OU BID 02/17/18 Fluticasone Propionate [Flovent Diskus] 250 mcg IH BID 02/17/18 Metoprolol Succinate [Toprol Xl] 25 mg PO DAILY 02/17/18 Umeclidinium Donna [Incruse Ellipta] 62.5 mcg IH DAILY 02/17/18 Valsartan [Diovan] 160 mg PO DAILY 02/17/18 <Quinn Westbrook - Last Filed: 02/20/18 21:37> Condition: Improved - Instructions Diet, Activity, Other Instructions: You were admitted for the treatment of your dizziness and your fatigue. You should resume taking your home medications starting with your Eliquis tonight. You should follow up with your primary care doctor within 1 week of discharge home. You should also follow up with a arc cutter within 1 week of discharge home. Information for Dr. Perera has been included in your discharge paperwork. Please call to make an appointment. You should also follow up with a neurologist within one week of discharge home. Information for Dr. Garnica has been included in your discharge paperwork. Please call to make an appointment. If you begin to experience chest pain, shortness of breath, increased dizziness or if any of your symptoms get worse, please call your doctor or return to the emergency department. Referrals: Meron Perera MD [Staff Physician] - 1 Week Efraín Fortune MD [Primary Care Provider] - 1 Week Disposition: VNS/HOME HEALTH CARE This patient is new to me today: No Emergency Visit: Yes ED Registration Date: 02/17/18 Care time: The patient presented to the Emergency Department on the above date and was hospitalized for further evaluation of their emergent condition. Critical Care patient: No - Discharge Referral Referred to [facility] Yes Physician Referral: Efraín Hairston MD ([facility]) <Quinn Westbrook - Last Filed: 02/20/18 21:37>
[2018-02-20] MEDS ORDERED: PT OWN MED DRAWER 7, Y5N ONE (11:17)
[2018-02-20] MEDS: PANTOPRAZOLE SODIUM 40 MG VIAL IVPUSH SCH (11:36)
--- NOTE | 2018-02-20 11:41 | EKG ---
Test Reason : Blood Pressure : / mmHG Vent. Rate : 095 BPM Atrial Rate : 095 BPM P-R Int : 202 ms QRS Dur : 144 ms QT Int : 398 ms P-R-T Axes : 052 -48 027 degrees QTc Int : 500 ms NORMAL SINUS RHYTHM RIGHT BUNDLE BRANCH BLOCK LEFT ANTERIOR FASCICULAR BLOCK BIFASCICULAR BLOCK MINIMAL VOLTAGE CRITERIA FOR LVH, MAY BE NORMAL VARIANT ABNORMAL ECG WHEN COMPARED WITH ECG OF 02-NOV-2017 13:00, PREMATURE ATRIAL COMPLEXES ARE NO LONGER PRESENT Confirmed by MARK GRAMAJO, ANTOINE ([id number]) on 02/20/2018 11:41:06 AM Referred By: Confirmed By:ANTOINE FLORES MD
[2018-02-20 11:47] VITALS: BP 151/76; PULSE 82; TEMP 97.6
== END 2018-02-20 13:14 | disposition home health service (06) | DRG 57 ==
LOC: JER 11:13 → JERBED 14:52 → J4S 20:49
PROVIDERS: ADMIT Internal Medicine; ATTEND Internal Medicine
DX: G90.3 Multi-system degeneration of the autonomic nervous system (principal); I50.32 Chronic diastolic (congestive) heart failure; G20 Parkinson's disease; Z86.73 Personal history of transient ischemic attack (TIA), and cerebral infarction without residual deficits; Z79.01 Long term (current) use of anticoagulants; E05.90 Thyrotoxicosis, unspecified without thyrotoxic crisis or storm; I45.10 Unspecified right bundle-branch block; R29.702 NIHSS score 2; I11.0 Hypertensive heart disease with heart failure; E11.9 Type 2 diabetes mellitus without complications; I25.10 Atherosclerotic heart disease of native coronary artery without angina pectoris; I48.0 Paroxysmal atrial fibrillation; K21.9 Gastro-esophageal reflux disease without esophagitis; D64.9 Anemia, unspecified
CPT/HCPCS: 36415; 70450-TC; 70496-TC; 70551-TC; 71045-TC-FY; 80053; 80061; 81003; 81015; 82550; 82962; 83036; 83721; 83735; 83880; 84100; 84443; 84484; 85025; 85027; 85610; 85730; 93005; 93010; 93880-TC; 99283-25; J1644

== ENCOUNTER 2019-02-14 10:28 | Inpatient (IN) | payer OTHER ==
[2019-02-14 12:35] LABS: BASO % 0.5 % (0-2.0); EOS % 0.3 % (0-4.5); HEMATOCRIT 21.2 % (32.4-45.2); LYMPH % 17.2 % (8-40); MCHC 28.8 g/dl (32.0-36.0); MEAN CELL VOLUME 64.8 fl (80-96); MEAN PLT VOLUME 7.2 fl (7.5-11.1); MONO % 9.5 % (3.8-10.2); NEUT % 72.5 % (42.8-82.8); PLATELET COUNT 393 K/MM3 (134-434); RBC 3.27 M/mm3 (3.60-5.2); WHITE BLOOD COUNT 6.7 K/mm3 (4.0-10.0)
[2019-02-14 12:36] LABS: MCH 18.6 pg (25.7-33.7)
[2019-02-14 12:38] LABS: HEMOGLOBIN 6.1 GM/dL (10.7-15.3)
[2019-02-14 12:52] LABS: INR 1.38 (0.83-1.09); PROTHROMBIN TIME (PATIENT) 16.3 SEC (9.7-13.0)
[2019-02-14 12:53] LABS: MAGNESIUM 2.3 mg/dL (1.8-2.4)
[2019-02-14 12:55] LABS: ACTIVATED PTT 31.7 SECONDS (25.2-36.5)
[2019-02-14 13:01] LABS: ALBUMIN 3.2 g/dl (3.4-5.0); ALK PHOS 88 U/L (45-117); ANION GAP 6 MMOL/L (8-16); BILIRUBIN,TOTAL 0.3 mg/dL (0.2-1); BLOOD UREA NITROGEN 17 mg/dL (7-18); CALCIUM 8.6 mg/dL (8.5-10.1); CHLORIDE 106 mmol/L (98-107); CO2 25 mmol/L (21-32); CREATININE 0.8 mg/dL (0.55-1.3); GLUCOSE,RANDOM 111 mg/dL (74-106); N-TERMINAL BNP 1625.8 pg/ml (5-450); POTASSIUM 4.8 mmol/L (3.5-5.1); SGOT/AST 15 U/L (15-37); SGPT/ALT 12 U/L (13-61); SODIUM 138 mmol/L (136-145); TOT PROT 6.6 g/dl (6.4-8.2)
[2019-02-14 14:25] LABS: EPI CELLS 4.4 /HPF (0-5); URINE APPEARANCE CLEAR; URINE BACTERIA 6.1 /hpf (NEGATIVE); URINE BILIRUBIN NEGATIVE (NEGATIVE); URINE CASTS 6 /hpf (0-8); URINE COLOR YELLOW; URINE GLUCOSE (UA) NEGATIVE (NEGATIVE); URINE KETONE NEGATIVE (NEGATIVE); URINE LEUK ESTERASE 2+ (NEGATIVE); URINE NITRITE NEGATIVE (NEGATIVE); URINE PROTEIN NEGATIVE (NEGATIVE); URINE RBC 2 /hpf (0-4); URINE UROBILINOGEN 0.2 mg/dL (0.2-1.0); URINE WBC 37 /hpf (0-5)
[2019-02-14] MEDS ORDERED: MEROPENEM 1 GM in DEXTROSE 5%-WATER 100 ML IVPB ONE (14:32)
--- NOTE | 2019-02-14 14:45 | PDOC ---
History of Present Illness <Shauna Cole - Last Filed: 02/14/19 16:01> - History of Present Illness Initial Comments: 02/14/19 16:08 The patient is an 84 year old female with a past medical history of Parkinson's disease, AFIB (on Eliquis), HTN, hyperthyroidism, recurrent UTI, borderline diabetes, recent cardiac ablation (6 months ago), and prior stroke who presents to the Emergency Department with progressive drop in hemoglobin (6.1 today). The patients GI physician, Dr. Leong referred the patient because of her anemia and pallor. Pt's daughter reports the patient has been lethargic and generally weak. Denies SOB/CP. Denies fevers, chills, headache, focal weakness/ numbness. Per Dr. Leong, stool guaic this AM was negative in the office Allergies: NKDA PCP - Dr. Fortune <Lea Ashby - Last Filed: 02/14/19 18:21> - General Chief Complaint: Weakness Stated Complaint: SENT BY PCP/WEAKNESS Time Seen by Provider: 02/14/19 11:45 Past History <Shauna Cole - Last Filed: 02/14/19 16:01> - Past Medical History Anemia: No Asthma: Yes Cancer: No Cardiac Disorders: Yes (A-FIB) CVA: No COPD: No CHF: No DVT: No Dementia: No Diabetes: Yes GI Disorders: Yes (gerd) Disorders: No HTN: Yes Hypercholesterolemia: Yes Liver Disease: No Seizures: No Thyroid Disease: Yes (hyperthyroid) - Surgical History Abdominal Surgery: No Cardiac Surgery: No Lung Surgery: No Neurologic Surgery: No - Suicide/Smoking/Psychosocial Hx Smoking History: Never smoked Have you smoked in the past 12 months: No Number of Cigarettes Smoked Daily: 0 Hx Alcohol Use: No Drug/Substance Use Hx: No Substance Use Type: None Hx Substance Use Treatment: No <Lea Ashby - Last Filed: 02/14/19 18:21> - Past Medical History Allergies/Adverse Reactions: Allergies Allergy/AdvReac Type Severity Reaction Status Date / Time No Known Allergies Allergy Verified 02/14/19 10:37 Home Medications: Ambulatory Orders Bimatoprost [Lumigan] 1 drop OU DAILY 04/09/17 Apixaban [Eliquis -] 5 mg PO BID #60 tab 04/13/17 Brimonidine Tartrate/Timolol [Combigan 0.2%-0.5% Eye Drops] 5 ml OU BID Metoprolol Succinate [Toprol Xl] 25 mg PO DAILY 02/17/18 Losartan Potassium 50 mg PO BID 02/14/19 Review of Systems - Review of Systems Comments:: 02/14/19 16:17 GENERAL/CONSTITUTIONAL: No fever or chills. +weakness. HEAD, EYES, EARS, NOSE AND THROAT: No change in vision. No ear pain or discharge. No sore throat. GASTROINTESTINAL: No nausea, vomiting, diarrhea or constipation. GENITOURINARY: No dysuria, frequency, or change in urination. CARDIOVASCULAR: No chest pain or shortness of breath. RESPIRATORY: No cough, wheezing, or hemoptysis. MUSCULOSKELETAL: No joint or muscle swelling or pain. No neck or back pain. SKIN: No rash NEUROLOGIC: No headache, vertigo, loss of consciousness, or change in strength/ sensation. ENDOCRINE: No increased thirst. No abnormal weight change. HEMATOLOGIC/LYMPHATIC: No anemia, easy bleeding, or history of blood clots. ALLERGIC/IMMUNOLOGIC: No hives or skin allergy." <Lea Ashby - Last Filed: 02/14/19 18:21> *Physical Exam - Vital Signs Last Vital Signs Temp Pulse Resp BP Pulse Ox 98.5 F 72 24 H 101/32 L 98 02/14/19 10:37 02/14/19 10:37 02/14/19 10:37 02/14/19 10:37 02/14/19 10:37 <Shauna Cole - Last Filed: 02/14/19 16:01> - Vital Signs Last Vital Signs Temp Pulse Resp BP Pulse Ox 98.5 F 72 24 H 101/32 L 98 02/14/19 10:37 02/14/19 10:37 02/14/19 10:37 02/14/19 10:37 02/14/19 10:37 - Physical Exam Comments: 02/14/19 16:21 GENERAL: Awake, alert, and fully oriented, in no acute distress. Pale appearing EYES: PERRLA, EOMI, sclera anicteric, conjunctiva clear ENT: Moist mucosa LUNGS: Breath sounds equal, clear to auscultation bilaterally. No wheezes, and no crackles HEART: Regular rate and rhythm, normal S1 and S2, no murmurs, rubs or gallops ABDOMEN: Soft, nontender, normoactive bowel sounds. No guarding, no rebound. No masses EXTREMITIES: Normal range of motion, no edema. No cords, erythema, or tenderness NEUROLOGICAL: Normal speech, cranial nerves intact, equal strength and sensation b/l SKIN: Warm, Dry, normal turgor, no rashes or lesions noted." <Lea Ashby - Last Filed: 02/14/19 18:21> ED Treatment Course - LABORATORY CBC & Chemistry Diagram: 02/14/19 12:18 02/14/19 11:46 - ADDITIONAL ORDERS Additional order review: Laboratory Results 02/14/19 02/14/19 02/14/19 13:56 13:27 12:18 PT with INR INR PTT (Actin FS) Sodium Potassium Chloride Carbon Dioxide Anion Gap BUN Creatinine Creat Clearance w eGFR Random Glucose Calcium Magnesium Total Bilirubin AST ALT Alkaline Phosphatase Troponin I B-Natriuretic Peptide Total Protein Albumin Urine Color Yellow Urine Appearance Clear Urine pH 6.0 Ur Specific Ponce 1.014 Urine Protein Negative Urine Glucose (UA) Negative Urine Ketones Negative Urine Blood Negative Urine Nitrite Negative Urine Bilirubin Negative Urine Urobilinogen 0.2 Ur Leukocyte Esterase 2+ H Urine WBC (Auto) 37 Urine RBC (Auto) 2 Urine Casts (Auto) 6 U Epithel Cells (Auto) 4.4 Urine Bacteria (Auto) 6.1 Blood Type O POSITIVE O POSITIVE Antibody Screen Negative Crossmatch See Detail 02/14/19 02/14/19 02/14/19 12:18 12:18 11:46 PT with INR 16.30 H INR 1.38 H PTT (Actin FS) 31.7 Sodium 138 Potassium 4.8 Chloride 106 Carbon Dioxide 25 Anion Gap 6 L BUN 17 Creatinine 0.8 Creat Clearance w eGFR 68.67 Random Glucose 111 H Calcium 8.6 Magnesium 2.3 Total Bilirubin 0.3 AST 15 ALT 12 L Alkaline Phosphatase 88 Troponin I 0.02 B-Natriuretic Peptide 1625.8 H Total Protein 6.6 Albumin 3.2 L Urine Color Urine Appearance Urine pH Ur Specific Ponce Urine Protein Urine Glucose (UA) Urine Ketones Urine Blood Urine Nitrite Urine Bilirubin Urine Urobilinogen Ur Leukocyte Esterase Urine WBC (Auto) Urine RBC (Auto) Urine Casts (Auto) U Epithel Cells (Auto) Urine Bacteria (Auto) Blood Type Antibody Screen Crossmatch 02/14/19 12:18 RBC 3.27 L MCV 64.8 L D MCHC 28.8 L RDW 18.0 H MPV 7.2 L Neutrophils % 72.5 D Lymphocytes % 17.2 D Monocytes % 9.5 Eosinophils % 0.3 D Basophils % 0.5 - RADIOLOGY Radiograph Interpretation: EXAM#: TYPE/EXAM: RESULT: [id number] CT/ABDOMEN PELVIS CT WITH CONTR Clinical history: Weight loss and anemia. Rule out mass. Impression: No acute pathology identified. No definitive masses identified. Other findings as above. Clinical correlation advised. Clinical correlation advised. Reported By: Malcolm Lee MD 02/14/19 1527 <Shauna Cole - Last Filed: 02/14/19 16:01> - LABORATORY CBC & Chemistry Diagram: 02/14/19 12:18 02/14/19 11:46 - ADDITIONAL ORDERS Additional order review: Laboratory Results 02/14/19 02/14/19 02/14/19 13:56 13:27 12:18 PT with INR INR PTT (Actin FS) Sodium Potassium Chloride Carbon Dioxide Anion Gap BUN Creatinine Creat Clearance w eGFR Random Glucose Calcium Magnesium Total Bilirubin AST ALT Alkaline Phosphatase Troponin I B-Natriuretic Peptide Total Protein Albumin Urine Color Yellow Urine Appearance Clear Urine pH 6.0 Ur Specific Ponce 1.014 Urine Protein Negative Urine Glucose (UA) Negative Urine Ketones Negative Urine Blood Negative Urine Nitrite Negative Urine Bilirubin Negative Urine Urobilinogen 0.2 Ur Leukocyte Esterase 2+ H Urine WBC (Auto) 37 Urine RBC (Auto) 2 Urine Casts (Auto) 6 U Epithel Cells (Auto) 4.4 Urine Bacteria (Auto) 6.1 Blood Type O POSITIVE O POSITIVE Antibody Screen Negative Crossmatch See Detail 02/14/19 02/14/19 02/14/19 12:18 12:18 11:46 PT with INR 16.30 H INR 1.38 H PTT (Actin FS) 31.7 Sodium 138 Potassium 4.8 Chloride 106 Carbon Dioxide 25 Anion Gap 6 L BUN 17 Creatinine 0.8 Creat Clearance w eGFR 68.67 Random Glucose 111 H Calcium 8.6 Magnesium 2.3 Total Bilirubin 0.3 AST 15 ALT 12 L Alkaline Phosphatase 88 Troponin I 0.02 B-Natriuretic Peptide 1625.8 H Total Protein 6.6 Albumin 3.2 L Urine Color Urine Appearance Urine pH Ur Specific Ponce Urine Protein Urine Glucose (UA) Urine Ketones Urine Blood Urine Nitrite Urine Bilirubin Urine Urobilinogen Ur Leukocyte Esterase Urine WBC (Auto) Urine RBC (Auto) Urine Casts (Auto) U Epithel Cells (Auto) Urine Bacteria (Auto) Blood Type Antibody Screen Crossmatch 02/14/19 12:18 RBC 3.27 L MCV 64.8 L D MCHC 28.8 L RDW 18.0 H MPV 7.2 L Neutrophils % 72.5 D Lymphocytes % 17.2 D Monocytes % 9.5 Eosinophils % 0.3 D Basophils % 0.5 - RADIOLOGY Radiology Studies Ordered: Category Date Time Status ABDOMEN & PELVIS CT WITH CONTR [CT] Stat CT Scan 02/14/19 13:18 Taken CHEST X-RAY PORTABLE* [RAD] Stat Radiology 02/14/19 11:47 Completed <Lea Ashby - Last Filed: 02/14/19 18:21> Medical Decision Making - Medical Decision Making 02/14/19 16:22 83yo F with MMP including AF on elqiuis presents to the ED with anemia Hgb 6 CTAP ordered for pt per request of GI, negative for acute pathology 1 unit prbc ordered for pt Case discussed with Dr. Garduno, pt accepted for admission to Dr. Leong Case discussed in detail with admitting physician including history, physical exam and ancillary studies. Admitting physician has assumed care for the patient, will follow all pending diagnostics and will complete the evaluation and treatment. <Lea Ashby - Last Filed: 02/14/19 18:21> *DC/Admit/Observation/Transfer - Attestations Scribe Attestion: 02/14/19 16:01 Documentation prepared by Shauna Cole, acting as medical records coordinator for Lea Ashby MD <Shauna Cole - Last Filed: 02/14/19 16:01> - Discharge Dispostion Decision to Admit order Date/Time: Decision to Admit Order Category Date Time Status Decision to Admit to Hospital Routine Admission 02/14/19 13:17 Active - Attestations Physician Attestion: 02/14/19 18:21 I, Dr. Lea Ashby MD, attest that this document has been prepared under my direction and personally reviewed by me in its entirety. I further attest, that it accurately reflects all work, treatment, procedures and medical decision -making performed by me. <Lea Ashby - Last Filed: 02/14/19 18:21> Diagnosis at time of Disposition: Urinary tract infection, Anemia requiring transfusions - Discharge Dispostion Condition at time of disposition: Stable - Referrals Referrals: Efraín Fortune MD [Primary Care Provider] - - Patient Instructions - Post Discharge Activity
[2019-02-14 15:19] LABS: ANISOCYTOSIS 2+; MACROCYTOSIS 0; PLATELET ESTIMATE NORMAL; TARGET CELLS 1+
--- NOTE | 2019-02-14 16:47 | CON.GI ---
Consult Consult Specialty:: Gastroenterology Reason for Consultation:: Anemia - History of Present Illness Chief Complaint: Abdominal pain, weakness History of Present Illness: 83yo female h/o A fib on eliquis s/p cardioversion, DM, HTN, hyperthyroidism seen in GI clinic today by Dr. Rangel with abdominal pain and weakness found to have severe anemia referred to ED for further evaluation. Pts daughter present at bedside, provides history. She reports pt has had intermittent generalized abdominal pain over the past few months with increased weakness. Denies change in bowel pattern, reports 2-3 soft to loose bm daily, denies hematochezia or melena. Reports poor appetite and some early satiety. Denies nausea/vomiting. States she has lost approximately 10lb weight loss over 2-3 months. No prior colonoscopy. Positive family h/o colon ca (pts son), also states aunt has dai syndrome (details unclear). Pt saw covering PMD last month who advised xray and labs, was treated for constipation. Seen by Dr. Rangel in GI clinic today and found to have worsening anemia with microcytosis (Hb 7.3, mcv 71.2), therefore advised ED evaluation. 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 Cardio/Vascular: Yes: AFIB, HTN Pulmonary: Yes: Asthma Endocrine: Yes: Hyperthyroidism Additional Medical History: Glaucoma - Past Surgical History Past Surgical History: Yes: Hysterectomy - Alcohol/Substance Use Hx Alcohol Use: No - Smoking History Smoking history: Never smoked Have you smoked in the past 12 months: No Aproximately how many cigarettes per day: 0 Home Medications - Allergies Allergies/Adverse Reactions: Allergies Allergy/AdvReac Type Severity Reaction Status Date / Time No Known Allergies Allergy Verified 02/14/19 10:37 - Home Medications Home Medications: Ambulatory Orders Albuterol Sulfate Inhaler - [Ventolin HFA Inhaler -] 1 - 2 inh PO QID PRN Bimatoprost [Lumigan] 1 drop OU DAILY 04/09/17 Apixaban [Eliquis -] 5 mg PO BID #60 tab 04/13/17 Acetaminophen [Tylenol .Regular Strength -] 650 mg PO Q4H PRN #0 tablet Methimazole [Tapazole -] 5 mg PO TID #90 tablet 08/25/17 Calcium Carb/Vitamin D3/Vit K1 [Calcium + D Soft Chewable Tab] 1 each PO WEEKLY 09/12/17 Cholecalciferol (Vitamin D3) [Vitamin D -] 50,000 unit PO WEEKLY 09/12/17 Nebulizer [Aeroeclipse II] 1 each MC Q6H PRN 09/12/17 Brimonidine Tartrate/Timolol [Combigan 0.2%-0.5% Eye Drops] 5 ml OU BID Fluticasone Propionate [Flovent Diskus] 250 mcg IH BID 02/17/18 Metoprolol Succinate [Toprol Xl] 25 mg PO DAILY 02/17/18 Umeclidinium Ava [Incruse Ellipta] 62.5 mcg IH DAILY 02/17/18 Valsartan [Diovan] 160 mg PO DAILY 02/17/18 Review of Systems - Review of Systems Constitutional: reports: Loss of Appetite, Weakness HENT: reports: No Symptoms Cardiovascular: reports: No Symptoms Respiratory: reports: No Symptoms Gastrointestinal: reports: Abdominal Pain Physical Exam-GI Vital Signs: Vital Signs Temperature 98.5 F 02/14/19 10:37 Pulse Rate 72 02/14/19 10:37 Respiratory Rate 24 H 02/14/19 10:37 Blood Pressure 101/32 L 02/14/19 10:37 O2 Sat by Pulse Oximetry (%) 98 02/14/19 10:37 Constitutional: Yes: Well Nourished, No Distress, Calm Cardiovascular: Yes: WNL, Regular Rate and Rhythm Respiratory: Yes: WNL, Regular, CTA Bilaterally ...Auscultate: Yes: Normoactive Bowel Sounds ...Palpate: Yes: Other (Abd soft, nt, nd) ...Rectal Exam: Yes: WNL (Rectal exam: scant light brown stool, no blood) Labs: CBC, BMP 02/14/19 12:18 02/14/19 11:46 INR, PTT INR 1.38 (0.83-1.09) H 02/14/19 12:18 Imaging - Results Cat Scan: Report Reviewed, Image Reviewed Problem List - Problems (1) Microcytic anemia Assessment/Plan: 83yo female h/o A fib on eliquis s/p cardioversion, DM, HTN, hyperthyroidism seen in GI clinic today by Dr. Digiorno with abdominal pain and weakness found to have severe worsening anemia with microcytosis referred to ED for further evaluation. No overt GI bleeding. No prior colonoscopy. CT abd/pelvis revealing atrophic appearing pancreas otherwise unremarkable. No obvious mass lesions seen. Possible etiologies including ulcer disease, AVMs, or underlying malignancy which needs to be excluded. -Continue resuscitative measures and prbc transfusion, aim Hb > 7 -Monitor Hb and for evidence of bleeding -Check iron studies/ferritin (on pretransfusion labs) -Hold eliquis (last dose this am); can start heparin gtt if anticoagulation deemed indicated from a cardiac standpoint -Clear liquid diet for now -Would recommend EGD and colonoscopy, tentatively Tuesday once adequately resuscitated Discussed with ED staff Code(s): D50.9 - IRON DEFICIENCY ANEMIA, UNSPECIFIED
--- NOTE | 2019-02-14 17:14 | PN ---
Teaching Attending Note Name of Resident: Quinn Westbrook ATTENDING PHYSICIAN STATEMENT I saw and evaluated the patient. I reviewed the resident's note and discussed the case with the resident. I agree with the resident's findings and plan as documented. SUBJECTIVE: Patient is a 83yo female was send to Ed. from Dr. Rangel's office since was found to have low hemoglobin. Patient feels very tired with generalized weakness. for 2 months with worsening symptoms today. Was having chills as per daughter. OBJECTIVE: Vital Signs Temperature 98.5 F 02/14/19 10:37 Pulse Rate 72 02/14/19 10:37 Respiratory Rate 24 H 02/14/19 10:37 Blood Pressure 101/32 L 02/14/19 10:37 O2 Sat by Pulse Oximetry (%) 98 02/14/19 10:37 Initial Vital Signs Temp Pulse Resp BP Pulse Ox 98.5 F 72 24 H 101/32 L 98 02/14/19 10:37 02/14/19 10:37 02/14/19 10:37 02/14/19 10:37 02/14/19 10:37 GENERAL: The patient is more awake, in no acute distress. HEAD: Normal with no signs of trauma. EYES: PERRL, extraocular movements intact, sclera anicteric, conjunctiva clear. ENT: Ears normal, oropharynx clear without exudates, moist mucous membranes. NECK: Trachea midline, full range of motion, supple. LUNGS: Breath sounds equal, clear to auscultation bilaterally, no wheezes, no crackles, no accessory muscle use. HEART: Regular rate and rhythm, S1, S2 positive without murmur, rub or gallop. ABDOMEN: Soft, large abdomen, nondistended, normoactive bowel sounds, no guarding, no rebound, no masses are appreciated. EXTREMITIES: 2+ pulses, warm, well-perfused, no edema. NEUROLOGICAL: Cranial nerves II through XII grossly intact. Normal speech, gait not observed. PSYCH: Normal mood, normal affect. SKIN: Warm, dry, normal turgor, no rashes or lesions noted CBCD WBC 6.7 K/mm3 (4.0-10.0) 02/14/19 12:18 RBC 3.27 M/mm3 (3.60-5.2) L 02/14/19 12:18 Hgb 6.1 GM/dL (10.7-15.3) L* 02/14/19 12:18 Hct 21.2 % (32.4-45.2) L 02/14/19 12:18 MCV 64.8 fl (80-96) L D 02/14/19 12:18 MCHC 28.8 g/dl (32.0-36.0) L 02/14/19 12:18 RDW 18.0 % (11.6-15.6) H 02/14/19 12:18 Plt Count 393 K/MM3 (134-434) D 02/14/19 12:18 MPV 7.2 fl (7.5-11.1) L 02/14/19 12:18 CMP Sodium 138 mmol/L (136-145) 02/14/19 11:46 Potassium 4.8 mmol/L (3.5-5.1) 02/14/19 11:46 Chloride 106 mmol/L (98-107) 02/14/19 11:46 Carbon Dioxide 25 mmol/L (21-32) 02/14/19 11:46 Anion Gap 6 MMOL/L (8-16) L 02/14/19 11:46 BUN 17 mg/dL (7-18) 02/14/19 11:46 Creatinine 0.8 mg/dL (0.55-1.3) 02/14/19 11:46 Creat Clearance w eGFR 68.67 (>60) 02/14/19 11:46 Random Glucose 111 mg/dL (74-106) H 02/14/19 11:46 Calcium 8.6 mg/dL (8.5-10.1) 02/14/19 11:46 Total Bilirubin 0.3 mg/dL (0.2-1) 02/14/19 11:46 AST 15 U/L (15-37) 02/14/19 11:46 ALT 12 U/L (13-61) L 02/14/19 11:46 Alkaline Phosphatase 88 U/L (45-117) 02/14/19 11:46 Total Protein 6.6 g/dl (6.4-8.2) 02/14/19 11:46 Albumin 3.2 g/dl (3.4-5.0) L 02/14/19 11:46 CARDIAC ENZYMES Troponin I 0.02 ng/ml (0.00-0.05) 02/14/19 12:18 Current Medications Generic Name Dose Route Start Last Admin Trade Name Freq PRN Reason Stop Dose Admin Metoprolol Succinate 25 mg 02/15/19 10:00 Toprol Xl - PO DAILY [facility] Home Medications Medication Instructions Recorded Albuterol Sulfate Inhaler - 1 - 2 inh PO QID PRN 09/13/16 [Ventolin HFA Inhaler -] Bimatoprost [Lumigan] 1 drop OU DAILY 04/09/17 Apixaban [Eliquis -] 5 mg PO BID #60 tab 04/13/17 Acetaminophen [Tylenol .Regular 650 mg PO Q4H PRN #0 tablet 07/05/17 Strength -] Methimazole [Tapazole -] 5 mg PO TID #90 tablet 08/25/17 Calcium Carb/Vitamin D3/Vit K1 1 each PO WEEKLY 09/12/17 [Calcium + D Soft Chewable Tab] Cholecalciferol (Vitamin D3) 50,000 unit PO WEEKLY 09/12/17 [Vitamin D -] Nebulizer [Aeroeclipse II] 1 each MC Q6H PRN 09/12/17 Brimonidine Tartrate/Timolol 5 ml OU BID 02/17/18 [Combigan 0.2%-0.5% Eye Drops] Fluticasone Propionate [Flovent 250 mcg IH BID 02/17/18 Diskus] Metoprolol Succinate [Toprol Xl] 25 mg PO DAILY 02/17/18 Umeclidinium [place] [Incruse 62.5 mcg IH DAILY 02/17/18 Ellipta] Valsartan [Diovan] 160 mg PO DAILY 02/17/18 ASSESSMENT AND PLAN: Patient is a 83yo female with PMhx of A fib on eliquis s/p cardioversion, DM, HTN, hyperthyroidism , patient was seen in GI clinic today by Dr. Rangel with abdominal pain , generalized weakness and was found to have severe worsening anemia with microcytosis. was send to Ed. for further care. # Acute symptomatic microcytic anemia: type and cross for 2 units of pRBC, lasix 20mg iv post transfusion, keep hgb > 7, will check iron studies since mcv is in a low side. Check iron studies/ferritin (on pretransfusion labs), Hold eliquis ;last dose this am. Clear liquid diet for now. EGD/colonoscopy by GI to r/o neoplasm. #hx of A fib on Eliquis ; will hold it, if needed Hep gtt # Acute over chronic diastolic CHF: BNP of 16K, will give lasix iv post transfusion. #HTN: continue home meds. #T2DM , sliding scale with coverage #asthma: nebs prn Dvt px: SCds, hold eliquis GI Px: Protonix
--- NOTE | 2019-02-14 17:59 | HP ---
CHIEF COMPLAINT: Anemia, Pallor PCP: Dr. Hairston Cards: Dr. Cowan Uro: Jackson Kris Endo: Ashley HISTORY OF PRESENT ILLNESS: The patient is Thai speaking. The following history was obtained with the assistance The patient is an 83 yo f w/ PMH Parkinson's syndrome, cervical cancer s/p hysterectomy w/ b/l salpingoophrectomy afib on eliquis, HTN, Hyperthyroidism, recurrent UTI who was sent to the ED by her gastroentrologist for evaluation of worsening anemia and pallor. The patient has been seeing her PCP for a 1.5 month history of vague abdominal discomfort. The patient's PCP ordered an outpatient KUB which showed fecal retention, prompting GI referral. When the physical therapist assistant noticed her dropping Hb and generalized pallor, he sent her to the ED for evaluation. The patient also endorses a 6 months history of decreased appetite and poor PO intake. Additionally, the patient endorses a 10 lb weight loss over this period of time. Of note, the patient and her daughter a significant family history of colon cancer including a son who at 40 yo from the disease. 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 ER course was notable for: (1) s/p 1 g merrem (2) 1uPRBC running during interview (3) Recent Travel: none PAST MEDICAL HISTORY: see HPI PAST SURGICAL HISTORY: none Social History: Smoking: denies Alcohol: denies Drugs: denies Family History: non-contributory Allergies No Known Allergies Allergy (Verified 02/14/19 10:37) HOME MEDICATIONS: Home Medications Medication Instructions Recorded Albuterol Sulfate Inhaler - 1 - 2 inh PO QID PRN 09/13/16 [Ventolin HFA Inhaler -] Bimatoprost [Lumigan] 1 drop OU DAILY 04/09/17 Apixaban [Eliquis -] 5 mg PO BID #60 tab 04/13/17 Acetaminophen [Tylenol .Regular 650 mg PO Q4H PRN #0 tablet 07/05/17 Strength -] Methimazole [Tapazole -] 5 mg PO TID #90 tablet 08/25/17 Calcium Carb/Vitamin D3/Vit K1 1 each PO WEEKLY 09/12/17 [Calcium + D Soft Chewable Tab] Cholecalciferol (Vitamin D3) 50,000 unit PO WEEKLY 09/12/17 [Vitamin D -] Nebulizer [Aeroeclipse II] 1 each MC Q6H PRN 09/12/17 Brimonidine Tartrate/Timolol 5 ml OU BID 02/17/18 [Combigan 0.2%-0.5% Eye Drops] Fluticasone Propionate [Flovent 250 mcg IH BID 02/17/18 Diskus] Metoprolol Succinate [Toprol Xl] 25 mg PO DAILY 02/17/18 Umeclidinium [place] [Incruse 62.5 mcg IH DAILY 02/17/18 Ellipta] Valsartan [Diovan] 160 mg PO DAILY 02/17/18 REVIEW OF SYSTEMS CONSTITUTIONAL: Absent: fever, chills, diaphoresis, malaise HEENT: Absent: rhinorrhea, nasal congestion, throat pain, throat swelling, difficulty swallowing, mouth swelling, ear pain, eye pain, visual changes CARDIOVASCULAR: Absent: chest pain, syncope, palpitations, irregular heart rate, peripheral edema RESPIRATORY: Absent: cough, shortness of breath, dyspnea with exertion, orthopnea, wheezing, stridor, hemoptysis GASTROINTESTINAL: Absent: abdominal pain, abdominal distension, nausea, vomiting, diarrhea, constipation, melena, hematochezia GENITOURINARY: Absent: dysuria, frequency, urgency, hesitancy, hematuria, flank pain, genital pain MUSCULOSKELETAL: Absent: myalgia, arthralgia, joint swelling, back pain, neck pain SKIN: Absent: rash, itching, pallor HEMATOLOGIC/IMMUNOLOGIC: Absent: easy bleeding, easy bruising, lymphadenopathy, frequent infections ENDOCRINE: Absent: unexplained weight gain, unexplained weight loss, heat intolerance, cold intolerance NEUROLOGIC: Absent: headache, focal weakness or paresthesias, dizziness, unsteady gait, seizure, mental status changes, bladder or bowel incontinence PSYCHIATRIC: Absent: anxiety, depression, suicidal or homicidal ideation, hallucinations. PHYSICAL EXAMINATION Vital Signs - 24 hr 02/14/19 10:37 Temperature 98.5 F Pulse Rate 72 Respiratory 24 H Rate Blood Pressure 101/32 L O2 Sat by Pulse 98 Oximetry (%) GENERAL: Awake, alert, and fully oriented, in no acute distress. HEAD: Normal with no signs of trauma. EYES: Pupils equal, round and reactive to light, extraocular movements intact, sclera anicteric, conjunctival pallor. No lid lag NECK: Normal range of motion, supple without lymphadenopathy, JVD, or masses. LUNGS: Breath sounds equal, clear to auscultation bilaterally. No wheezes, and no crackles. No accessory muscle use. HEART: Regular rate and rhythm, normal S1 and S2 without murmur, rub or gallop. ABDOMEN: Soft, nontender, not distended, normoactive bowel sounds, no guarding, no rebound, no masses. No hepatomegaly or splenomegaly. LOWER EXTREMITIES: 2+ pulses, warm, well-perfused. No calf tenderness. No peripheral edema. NEUROLOGICAL: Cranial nerves II-X intact. Normal speech. SKIN: Warm, dry, normal turgor, no rashes or lesions noted, normal capillary refill. Laboratory Results - last 24 hr 02/14/19 02/14/19 02/14/19 11:46 12:18 12:18 WBC 6.7 RBC 3.27 L Hgb 6.1 L* Hct 21.2 L MCV 64.8 L D MCH 18.6 L D MCHC 28.8 L RDW 18.0 H Plt Count 393 D MPV 7.2 L Absolute Neuts (auto) 4.9 Neutrophils % 72.5 D Lymphocytes % 17.2 D Monocytes % 9.5 Eosinophils % 0.3 D Basophils % 0.5 Nucleated RBC % 0 Hypochromia 2+ Platelet Estimate Normal Polychromasia 1+ Poikilocytosis 1+ Anisocytosis 2+ Microcytosis 2+ Macrocytosis 0 Target Cells 1+ Schistocytes 1+ PT with INR 16.30 H INR 1.38 H PTT (Actin FS) 31.7 Sodium 138 Potassium 4.8 Chloride 106 Carbon Dioxide 25 Anion Gap 6 L BUN 17 Creatinine 0.8 Creat Clearance w eGFR 68.67 Random Glucose 111 H Calcium 8.6 Magnesium Total Bilirubin 0.3 AST 15 ALT 12 L Alkaline Phosphatase 88 Troponin I B-Natriuretic Peptide 1625.8 H Total Protein 6.6 Albumin 3.2 L Urine Color Urine Appearance Urine pH Ur Specific [place] Urine Protein Urine Glucose (UA) Urine Ketones Urine Blood Urine Nitrite Urine Bilirubin Urine Urobilinogen Ur Leukocyte Esterase Urine WBC (Auto) Urine RBC (Auto) Urine Casts (Auto) U Epithel Cells (Auto) Urine Bacteria (Auto) Blood Type Antibody Screen Crossmatch 02/14/19 02/14/19 02/14/19 12:18 12:18 13:27 WBC RBC Hgb Hct MCV MCH MCHC RDW Plt Count MPV Absolute Neuts (auto) Neutrophils % Lymphocytes % Monocytes % Eosinophils % Basophils % Nucleated RBC % Hypochromia Platelet Estimate Polychromasia Poikilocytosis Anisocytosis Microcytosis Macrocytosis Target Cells Schistocytes PT with INR INR PTT (Actin FS) Sodium Potassium Chloride Carbon Dioxide Anion Gap BUN Creatinine Creat Clearance w eGFR Random Glucose Calcium Magnesium 2.3 Total Bilirubin AST ALT Alkaline Phosphatase Troponin I 0.02 B-Natriuretic Peptide Total Protein Albumin Urine Color Urine Appearance Urine pH Ur Specific [place] Urine Protein Urine Glucose (UA) Urine Ketones Urine Blood Urine Nitrite Urine Bilirubin Urine Urobilinogen Ur Leukocyte Esterase Urine WBC (Auto) Urine RBC (Auto) Urine Casts (Auto) U Epithel Cells (Auto) Urine Bacteria (Auto) Blood Type O POSITIVE O POSITIVE Antibody Screen Negative Crossmatch See Detail 02/14/19 13:56 WBC RBC Hgb Hct MCV MCH MCHC RDW Plt Count MPV Absolute Neuts (auto) Neutrophils % Lymphocytes % Monocytes % Eosinophils % Basophils % Nucleated RBC % Hypochromia Platelet Estimate Polychromasia Poikilocytosis Anisocytosis Microcytosis Macrocytosis Target Cells Schistocytes PT with INR INR PTT (Actin FS) Sodium Potassium Chloride Carbon Dioxide Anion Gap BUN Creatinine Creat Clearance w eGFR Random Glucose Calcium Magnesium Total Bilirubin AST ALT Alkaline Phosphatase Troponin I B-Natriuretic Peptide Total Protein Albumin Urine Color Yellow Urine Appearance Clear Urine pH 6.0 Ur Specific [place] 1.014 Urine Protein Negative Urine Glucose (UA) Negative Urine Ketones Negative Urine Blood Negative Urine Nitrite Negative Urine Bilirubin Negative Urine Urobilinogen 0.2 Ur Leukocyte Esterase 2+ H Urine WBC (Auto) 37 Urine RBC (Auto) 2 Urine Casts (Auto) 6 U Epithel Cells (Auto) 4.4 Urine Bacteria (Auto) 6.1 Blood Type Antibody Screen Crossmatch ASSESSMENT/PLAN: The patient is an 83 yo f w/ PMH Parkinson's syndrome, cervical cancer s/p hysterectomy w/ b/l salpingoophrectomy afib on eliquis, HTN, Hyperthyroidism, recurrent UTI as well as a strong family history of colon Ca who was sent to the ED by her GI for anemia and pallor #anemia possibly 2/2 occult blood loss 2/2 eliquis use r/o occult malignancy -GI consult placed; EGD and colonoscopy planning -Iron studies -s/p 1u PRBC, f/u post transfusion CBC -transfuse to maintain Hb >8 (h/o afib) #generalized weakness, decreased appetite, weight loss -possibly 2/2 anemia -concerning for occult malignancy given history and family history #UA showing 2+ leuk and 37 WBC -patient asymptomatic, no need to treat at this time. -patient has history of ESBL e.coli in the urine #afib -holding eliquis until bleed ruled out -continue with metoprolol #HTN -holding home antihypertensives, may restart in AM if patient hypertensive #FEN -no fluids indicated -electrolytes wnl, monitor -sodium controlled diet #Prophy -holding AC until bleed r/o -SCDs #dispo -observe on med surg -medications verified with patient pharmacy Visit type - Emergency Visit Emergency Visit: Yes ED Registration Date: 02/14/19 Care time: The patient presented to the Emergency Department on the above date and was hospitalized for further evaluation of their emergent condition. - New Patient This patient is new to me today: Yes Date on this admission: 02/14/19 - Critical Care Critical Care patient: No
[2019-02-14] MEDS ORDERED: FUROSEMIDE 40 MG/4 ML INJECTABLE VIAL IVPUSH ONE (18:02)
[2019-02-14] MEDS ORDERED: FUROSEMIDE 40 MG/4 ML INJECTABLE VIAL ONE (19:48)
[2019-02-15] MEDS ORDERED: MORPHINE SULFATE 2 MG/ML VIAL IM ONE (00:13)
[2019-02-15 06:55] LABS: HEMATOCRIT 24.1 % (32.4-45.2); HEMOGLOBIN 7.3 GM/dL (10.7-15.3); MCH 20.7 pg (25.7-33.7); MCHC 30.4 g/dl (32.0-36.0); MEAN CELL VOLUME 68.1 fl (80-96); MEAN PLT VOLUME 7.5 fl (7.5-11.1); PLATELET COUNT 352 K/MM3 (134-434); RBC 3.54 M/mm3 (3.60-5.2); RDW 22.4 % (11.6-15.6); WHITE BLOOD COUNT 4.9 K/mm3 (4.0-10.0)
[2019-02-15 07:55] LABS: HEMATOCRIT 24.9 % (32.4-45.2); HEMOGLOBIN 7.6 GM/dL (10.7-15.3); MCH 20.7 pg (25.7-33.7); MCHC 30.4 g/dl (32.0-36.0); MEAN PLT VOLUME 7.5 fl (7.5-11.1); PLATELET COUNT 364 K/MM3 (134-434); RBC 3.65 M/mm3 (3.60-5.2); RDW 22.2 % (11.6-15.6); WHITE BLOOD COUNT 5.1 K/mm3 (4.0-10.0)
[2019-02-15 08:37] LABS: ANION GAP 7 MMOL/L (8-16); BLOOD UREA NITROGEN 12 mg/dL (7-18); CALCIUM 8.7 mg/dL (8.5-10.1); CHLORIDE 106 mmol/L (98-107); CO2 28 mmol/L (21-32); CREATININE 0.7 mg/dL (0.55-1.3); GLUCOSE,RANDOM 86 mg/dL (74-106); MAGNESIUM 2.4 mg/dL (1.8-2.4); PHOSPHOROUS 3.9 mg/dL (2.5-4.9); POTASSIUM 4.2 mmol/L (3.5-5.1); SODIUM 140 mmol/L (136-145)
--- NOTE | 2019-02-15 09:03 | PN ---
Physical Exam: SUBJECTIVE: Patient seen and examined at bedside- patient states she is feeling better, however, she had a bloody bowel movement this AM. states she is feeling tired but her pain is better; she denies any CP/SOB?N/V OBJECTIVE: Vital Signs Period Temp Pulse Resp BP Sys/Ugarte Pulse Ox Last 24 Hr 98.2 F-99 F 72-100 16-24 101-128/32-84 94-100 GENERAL: The patient is awake, alert, and fully oriented, in no acute distress. EYES: PEERLA: EOMI: no scleral icterus NECK: no JBD' no lymphadenopathy. LUNGS: CTA B/L; no rales, rhonchi or wheezing. HEART: Regular rate and rhythm, S1, S2 without murmur, rub or gallop. ABDOMEN:soft; slight lower quadrant tenderness upon palpation; non-distended + BS EXTREMITIES: 2+ pulses, warm, well-perfused, no edema. PSYCH: Normal mood, normal affect. SKIN: Warm, dry, normal turgor, no rashes or lesions noted Laboratory Results - last 24 hr 02/14/19 02/14/19 02/14/19 11:46 12:18 12:18 WBC 6.7 RBC 3.27 L Hgb 6.1 L* Hct 21.2 L MCV 64.8 L D MCH 18.6 L D MCHC 28.8 L RDW 18.0 H Plt Count 393 D MPV 7.2 L Absolute Neuts (auto) 4.9 Neutrophils % 72.5 D Lymphocytes % 17.2 D Monocytes % 9.5 Eosinophils % 0.3 D Basophils % 0.5 Nucleated RBC % 0 Hypochromia 2+ Platelet Estimate Normal Polychromasia 1+ Poikilocytosis 1+ Anisocytosis 2+ Microcytosis 2+ Macrocytosis 0 Target Cells 1+ Schistocytes 1+ Retic Count PT with INR 16.30 H INR 1.38 H PTT (Actin FS) 31.7 Sodium 138 Potassium 4.8 Chloride 106 Carbon Dioxide 25 Anion Gap 6 L BUN 17 Creatinine 0.8 Creat Clearance w eGFR 68.67 Random Glucose 111 H Calcium 8.6 Phosphorus Magnesium Total Bilirubin 0.3 AST 15 ALT 12 L Alkaline Phosphatase 88 LD Total Troponin I B-Natriuretic Peptide 1625.8 H Total Protein 6.6 Albumin 3.2 L TSH Urine Color Urine Appearance Urine pH Ur Specific [place] Urine Protein Urine Glucose (UA) Urine Ketones Urine Blood Urine Nitrite Urine Bilirubin Urine Urobilinogen Ur Leukocyte Esterase Urine WBC (Auto) Urine RBC (Auto) Urine Casts (Auto) U Epithel Cells (Auto) Urine Bacteria (Auto) Blood Type Antibody Screen Crossmatch 02/14/19 02/14/19 02/14/19 12:18 12:18 13:27 WBC RBC Hgb Hct MCV MCH MCHC RDW Plt Count MPV Absolute Neuts (auto) Neutrophils % Lymphocytes % Monocytes % Eosinophils % Basophils % Nucleated RBC % Hypochromia Platelet Estimate Polychromasia Poikilocytosis Anisocytosis Microcytosis Macrocytosis Target Cells Schistocytes Retic Count PT with INR INR PTT (Actin FS) Sodium Potassium Chloride Carbon Dioxide Anion Gap BUN Creatinine Creat Clearance w eGFR Random Glucose Calcium Phosphorus Magnesium 2.3 Total Bilirubin AST ALT Alkaline Phosphatase LD Total Troponin I 0.02 B-Natriuretic Peptide Total Protein Albumin TSH Urine Color Urine Appearance Urine pH Ur Specific [place] Urine Protein Urine Glucose (UA) Urine Ketones Urine Blood Urine Nitrite Urine Bilirubin Urine Urobilinogen Ur Leukocyte Esterase Urine WBC (Auto) Urine RBC (Auto) Urine Casts (Auto) U Epithel Cells (Auto) Urine Bacteria (Auto) Blood Type O POSITIVE O POSITIVE Antibody Screen Negative Crossmatch See Detail 02/14/19 02/14/19 02/14/19 13:56 19:05 19:05 WBC RBC Hgb Hct MCV MCH MCHC RDW Plt Count MPV Absolute Neuts (auto) Neutrophils % Lymphocytes % Monocytes % Eosinophils % Basophils % Nucleated RBC % Hypochromia Platelet Estimate Polychromasia Poikilocytosis Anisocytosis Microcytosis Macrocytosis Target Cells Schistocytes Retic Count 1.78 H PT with INR INR PTT (Actin FS) Sodium Potassium Chloride Carbon Dioxide Anion Gap BUN Creatinine Creat Clearance w eGFR Random Glucose Calcium Phosphorus Magnesium Total Bilirubin AST ALT Alkaline Phosphatase LD Total 183 Troponin I B-Natriuretic Peptide Total Protein Albumin TSH Urine Color Yellow Urine Appearance Clear Urine pH 6.0 Ur Specific [place] 1.014 Urine Protein Negative Urine Glucose (UA) Negative Urine Ketones Negative Urine Blood Negative Urine Nitrite Negative Urine Bilirubin Negative Urine Urobilinogen 0.2 Ur Leukocyte Esterase 2+ H Urine WBC (Auto) 37 Urine RBC (Auto) 2 Urine Casts (Auto) 6 U Epithel Cells (Auto) 4.4 Urine Bacteria (Auto) 6.1 Blood Type Antibody Screen Crossmatch 02/15/19 02/15/19 02/15/19 06:29 07:00 07:00 WBC 4.9 5.1 RBC 3.54 L 3.65 Hgb 7.3 L 7.6 L Hct 24.1 L 24.9 L MCV 68.1 L 68.0 L MCH 20.7 L D 20.7 L MCHC 30.4 L 30.4 L RDW 22.4 H 22.2 H Plt Count 352 364 MPV 7.5 7.5 Absolute Neuts (auto) Neutrophils % Lymphocytes % Monocytes % Eosinophils % Basophils % Nucleated RBC % Hypochromia Platelet Estimate Polychromasia Poikilocytosis Anisocytosis Microcytosis Macrocytosis Target Cells Schistocytes Retic Count PT with INR INR PTT (Actin FS) Sodium 140 Potassium 4.2 Chloride 106 Carbon Dioxide 28 Anion Gap 7 L BUN 12 Creatinine 0.7 Creat Clearance w eGFR 80.11 Random Glucose 86 Calcium 8.7 Phosphorus 3.9 Magnesium 2.4 Total Bilirubin AST ALT Alkaline Phosphatase LD Total Troponin I B-Natriuretic Peptide Total Protein Albumin TSH 3.42 Urine Color Urine Appearance Urine pH Ur Specific [place] Urine Protein Urine Glucose (UA) Urine Ketones Urine Blood Urine Nitrite Urine Bilirubin Urine Urobilinogen Ur Leukocyte Esterase Urine WBC (Auto) Urine RBC (Auto) Urine Casts (Auto) U Epithel Cells (Auto) Urine Bacteria (Auto) Blood Type Antibody Screen Crossmatch Active Medications Generic Name Dose Route Start Last Admin Trade Name Freq PRN Reason Stop Dose Admin Furosemide 20 mg 02/15/19 10:00 Lasix Injection - IVPUSH DAILY [facility] Metoprolol Succinate 25 mg 02/15/19 10:00 Toprol Xl - PO DAILY [facility] ASSESSMENT/PLAN: The patient is an 83 yo f w/ PMH Parkinson's syndrome, cervical cancer s/p hysterectomy w/ b/l salpingoophrectomy afib on eliquis, HTN, Hyperthyroidism, recurrent UTI as well as a strong family history of colon Ca who was sent to the ED by her GI for anemia and pallor #anemia possibly 2/2 occult blood loss 2/2 eliquis use r/o occult malignancy -GI on board; EGD/ colonscopy either tomorrow or tuesday depending on HR -Iron studies -s/p 2 units PRBCS -transfuse to maintain Hb >8 given cardiac history #generalized weakness, decreased appetite, weight loss -possibly 2/2 anemia #UA showing 2+ leuk and 37 WBC -patient asymptomatic, no need to treat at this time. -patient has history of ESBL e.coli in the urine #afib -holding eliquis until bleed ruled out -continue with metoprolol #HTN -holding home antihypertensives, may restart in AM if patient hypertensive #FEN -no fluids indicated -electrolytes wnl, monitor -clears; NPO after midnight for scope #Prophy -holding AC until bleed r/o -SCDs Problem List - Problems (1) Microcytic anemia Code(s): D50.9 - IRON DEFICIENCY ANEMIA, UNSPECIFIED (2) Atrial fibrillation Code(s): I48.91 - UNSPECIFIED ATRIAL FIBRILLATION Qualifiers: Atrial fibrillation type: persistent Qualified Code(s): I48.1 - Persistent atrial fibrillation (3) CAD (coronary artery disease) Code(s): I25.10 - ATHSCL HEART DISEASE OF [place] CORONARY ARTERY W/O ANG PCTRS Qualifiers: Coronary Disease-Associated Artery/Lesion type: [place] artery [place] vs. transplanted heart: [place] heart Associated angina: without angina Qualified Code(s): I25.10 - Atherosclerotic heart disease of [place] coronary artery without angina pectoris (4) CHF (congestive heart failure) Code(s): I50.9 - HEART FAILURE, UNSPECIFIED Qualifiers: Qualified Code(s): I50.9 - Heart failure, unspecified Visit type - Emergency Visit Emergency Visit: Yes ED Registration Date: 02/15/19 Care time: The patient presented to the Emergency Department on the above date and was hospitalized for further evaluation of their emergent condition. - New Patient This patient is new to me today: Yes Date on this admission: 02/15/19 - Critical Care Critical Care patient: No
[2019-02-15] MEDS ORDERED: metoPROLOL SUCCINATE 25 MG TAB.SR.24H (FP) PO SCH (10:00)
[2019-02-15] MEDS: FUROSEMIDE 40 MG/4 ML INJECTABLE VIAL IVPUSH SCH (10:26)
[2019-02-15] MEDS: ACETAMINOPHEN 325 MG TABLET (FP) PO PRN (10:26)
--- NOTE | 2019-02-15 12:43 | PN.GI ---
GI Progress Note Subjective: No overt bleeding Receiving 2nd unit PRBC Denies abdominal pain - Objective Vital Signs: Vital Signs Temperature 98.7 F 02/15/19 11:42 Pulse Rate 115 H 02/15/19 11:42 Respiratory Rate 18 02/15/19 11:42 Blood Pressure 115/66 02/15/19 11:42 O2 Sat by Pulse Oximetry (%) 94 L 02/14/19 21:01 Constitutional: Calm Eyes: No: Sclera Icterus Cardiovascular: Yes: Tachycardia, Pulse Irregular Respiratory: Yes: CTA Bilaterally Gastrointestinal Inspection: No: Distention ...Auscultate: Yes: Normoactive Bowel Sounds ...Palpate: Yes: Soft. No: Hepatomegaly, Splenomegaly, Tenderness ...Rectal Exam: Yes: Other (Light brown formed stool) Edema: No (No LE edema) Neurological: Yes: Alert Labs: CBC, BMP 02/15/19 07:00 02/15/19 07:00 INR, PTT INR 1.38 (0.83-1.09) H 02/14/19 12:18 Problem List - Problems (1) Microcytic anemia Assessment/Plan: With strong family h/o colon cancer Discussed with daughter who was present at bedside When heart rate controlled, plan for EGD/Colon. Tomorrow if HR controlled, tuesday if not. Code(s): D50.9 - IRON DEFICIENCY ANEMIA, UNSPECIFIED
[2019-02-15] MEDS ORDERED: METOPROLOL TARTRATE 25 MG TABLET (FP) PO ONE (13:02)
[2019-02-15 14:05] VITALS: BMI 40.0
[2019-02-15] MEDS ORDERED: BISACODYL 5 MG TABLET.DR (FP) PO ONE (16:41)
--- NOTE | 2019-02-15 16:43 | PN ---
Progress Note (short form) - Note Progress Note: HR improved. will attempt bowel prep tonight for EGD/Colon tomorrow. Problem List - Problems (1) Microcytic anemia Code(s): D50.9 - IRON DEFICIENCY ANEMIA, UNSPECIFIED
[2019-02-15] MEDS ORDERED: PEG 3350/NA SULF BICARB CL/KCL 4000 ML SOLN.RECON PO ONE (17:00)
--- NOTE | 2019-02-15 18:07 | PN ---
Teaching Attending Note Name of Resident: Roxann Garza ATTENDING PHYSICIAN STATEMENT I saw and evaluated the patient. I reviewed the resident's note and discussed the case with the resident. I agree with the resident's findings and plan as documented. SUBJECTIVE: Patient is comfortable with no acute distress OBJECTIVE: Vital Signs Temperature 98.4 F 02/15/19 18:05 Pulse Rate 88 02/15/19 18:05 Respiratory Rate 20 02/15/19 18:05 Blood Pressure 112/60 02/15/19 18:05 O2 Sat by Pulse Oximetry (%) 96 02/15/19 10:00 GENERAL: The patient is more awake, in no acute distress. positive for essential tremor. HEAD: Normal with no signs of trauma. EYES: PERRL, extraocular movements intact, sclera anicteric, conjunctiva clear. ENT: Ears normal, oropharynx clear without exudates, moist mucous membranes. NECK: Trachea midline, full range of motion, supple. LUNGS: Breath sounds equal, clear to auscultation bilaterally, no wheezes, no crackles, no accessory muscle use. HEART: Regular rate and rhythm, S1, S2 positive without murmur, rub or gallop. ABDOMEN: Soft, large abdomen, ND, normoactive bowel sounds, no guarding, no rebound, no masses are appreciated. EXTREMITIES: 2+ pulses, warm, well-perfused, no edema. NEUROLOGICAL: Cranial nerves II through XII grossly intact. Normal speech, gait not observed. PSYCH: Normal mood, normal affect. SKIN: Warm, dry, normal turgor, no rashes or lesions noted CBCD WBC 5.1 K/mm3 (4.0-10.0) 02/15/19 07:00 RBC 3.65 M/mm3 (3.60-5.2) 02/15/19 07:00 Hgb 7.6 GM/dL (10.7-15.3) L 02/15/19 07:00 Hct 24.9 % (32.4-45.2) L 02/15/19 07:00 MCV 68.0 fl (80-96) L 02/15/19 07:00 MCHC 30.4 g/dl (32.0-36.0) L 02/15/19 07:00 RDW 22.2 % (11.6-15.6) H 02/15/19 07:00 Plt Count 364 K/MM3 (134-434) 02/15/19 07:00 MPV 7.5 fl (7.5-11.1) 02/15/19 07:00 CMP Sodium 140 mmol/L (136-145) 02/15/19 07:00 Potassium 4.2 mmol/L (3.5-5.1) 02/15/19 07:00 Chloride 106 mmol/L (98-107) 02/15/19 07:00 Carbon Dioxide 28 mmol/L (21-32) 02/15/19 07:00 Anion Gap 7 MMOL/L (8-16) L 02/15/19 07:00 BUN 12 mg/dL (7-18) 02/15/19 07:00 Creatinine 0.7 mg/dL (0.55-1.3) 02/15/19 07:00 Creat Clearance w eGFR 80.11 (>60) 02/15/19 07:00 Random Glucose 86 mg/dL (74-106) 02/15/19 07:00 Calcium 8.7 mg/dL (8.5-10.1) 02/15/19 07:00 Total Bilirubin 0.3 mg/dL (0.2-1) 02/14/19 11:46 AST 15 U/L (15-37) 02/14/19 11:46 ALT 12 U/L (13-61) L 02/14/19 11:46 Alkaline Phosphatase 88 U/L (45-117) 02/14/19 11:46 Total Protein 6.6 g/dl (6.4-8.2) 02/14/19 11:46 Albumin 3.2 g/dl (3.4-5.0) L 02/14/19 11:46 CARDIAC ENZYMES Troponin I 0.02 ng/ml (0.00-0.05) 02/14/19 12:18 Current Medications Generic Name Dose Route Start Last Admin Trade Name Freq PRN Reason Stop Dose Admin Acetaminophen 650 mg 02/15/19 09:14 02/15/19 10:26 Tylenol - PO 650 mg Q6H PRN Administration Fever Or Pain Furosemide 20 mg 02/15/19 10:00 02/15/19 10:26 Lasix Injection - IVPUSH 20 mg DAILY [facility] Administration Metoprolol Succinate 25 mg 02/15/19 10:00 02/15/19 10:27 Toprol Xl - PO 25 mg DAILY [facility]KANTH Administration Home Medications Medication Instructions Recorded Bimatoprost [Lumigan] 1 drop OU DAILY 04/09/17 Apixaban [Eliquis -] 5 mg PO BID #60 tab 04/13/17 Brimonidine Tartrate/Timolol 5 ml OU BID 02/17/18 [Combigan 0.2%-0.5% Eye Drops] Metoprolol Succinate [Toprol Xl] 25 mg PO DAILY 02/17/18 Latanoprost 0.005% Eye Drops 1 drop HS 02/14/19 [Xalatan 0.005% Eye Drops -] Losartan Potassium 50 mg PO BID 02/14/19 Methimazole 5 mg PO TID 02/14/19 ASSESSMENT AND PLAN: Patient is a 83yo female with PMhx of A fib on eliquis s/p cardioversion, DM, HTN, hyperthyroidism , patient was seen in GI clinic today by Dr. Rangel with abdominal pain , generalized weakness and was found to have severe worsening anemia with microcytosis. was send to Ed. for further care. # Acute symptomatic microcytic anemia: s/p 2 units of pRBC, lasix 20mg iv post transfusion, keep hgb > 7, will start on iron supplement. Hold eliquis ;last dose yesterday Clear liquid diet for now. NPO after midnight , EGD/colonoscopy by GI to r/o neoplasm. #hx of A fib on Eliquis ; on hold due to GI bleed, on Toprol xl 25mg will continue . # Acute over chronic diastolic CHF: BNP of 16K, will give lasix iv post transfusion. #HTN: continue home meds. #T2DM , sliding scale with coverage #asthma: nebs prn Dvt px: SCds, hold eliquis GI Px: Protonix
[2019-02-15 19:34] LABS: HEMATOCRIT 28.2 % (32.4-45.2); HEMOGLOBIN 8.6 GM/dL (10.7-15.3); MCH 21.9 pg (25.7-33.7); MCHC 30.5 g/dl (32.0-36.0); MEAN CELL VOLUME 71.9 fl (80-96); MEAN PLT VOLUME 7.7 fl (7.5-11.1); PLATELET COUNT 358 K/MM3 (134-434); RBC 3.93 M/mm3 (3.60-5.2); RDW 23.7 % (11.6-15.6); WHITE BLOOD COUNT 5.4 K/mm3 (4.0-10.0)
[2019-02-16 04:15] LABS: SERUM IRON SATURATION 4 % (15-55); TOTAL IRON BINDING CAPACITY 459 ug/dL (250-450); UIBC 439 ug/dL (118-369)
[2019-02-16 07:52] LABS: HEMATOCRIT 30.4 % (32.4-45.2); HEMOGLOBIN 9.3 GM/dL (10.7-15.3); MCH 21.6 pg (25.7-33.7); MCHC 30.5 g/dl (32.0-36.0); MEAN CELL VOLUME 70.7 fl (80-96); MEAN PLT VOLUME 7.5 fl (7.5-11.1); PLATELET COUNT 360 K/MM3 (134-434); RDW 23.5 % (11.6-15.6); WHITE BLOOD COUNT 6.2 K/mm3 (4.0-10.0)
[2019-02-16 08:06] LABS: ANION GAP 9 MMOL/L (8-16); BLOOD UREA NITROGEN 11 mg/dL (7-18); CALCIUM 8.2 mg/dL (8.5-10.1); CHLORIDE 104 mmol/L (98-107); CO2 28 mmol/L (21-32); CREATININE 0.7 mg/dL (0.55-1.3); GLUCOSE,RANDOM 87 mg/dL (74-106); MAGNESIUM 2.2 mg/dL (1.8-2.4); PHOSPHOROUS 3.8 mg/dL (2.5-4.9); POTASSIUM 3.7 mmol/L (3.5-5.1); SODIUM 140 mmol/L (136-145)
--- NOTE | 2019-02-16 08:22 | PN ---
Physical Exam: SUBJECTIVE: Patient seen and examined at bedside; no acute events overnight; patient is getting an EGD/colonoscopy today; denies seeing any blood in her bowel movements last night- denies CP/SOB/N/V fevers or chills OBJECTIVE: Vital Signs Period Temp Pulse Resp BP Sys/Ugarte Pulse Ox Last 24 Hr 97.8 F-99.0 F 86-115 18-20 105-143/57-71 96-96 GENERAL: The patient is awake, alert, and fully oriented, in no acute distress. EYES: PEERLA EOMI no scleral icterus NECK: no JVD; no lymphadenopathy LUNGS: CTA B/L; no rales, rhonchi or wheezing. HEART: Regular rate and rhythm, S1, S2 without murmur, rub or gallop. ABDOMEN: Soft, nontender, nondistended, normoactive bowel sounds, no guarding, no rebound, no hepatosplenomegaly, no masses. EXTREMITIES: 2+ pulses, warm, well-perfused, no edema. PSYCH: Normal mood, normal affect. SKIN: Warm, dry, normal turgor, no rashes or lesions noted Laboratory Results - last 24 hr 02/14/19 02/14/19 02/14/19 08:30 12:18 19:05 WBC RBC Hgb Hct MCV MCH MCHC RDW Plt Count MPV Sodium Potassium Chloride Carbon Dioxide Anion Gap BUN Creatinine Creat Clearance w eGFR Random Glucose Calcium Phosphorus Magnesium Iron 20 L TIBC 459 H Iron Saturation 4 L Ferritin 3.5 L TSH Blood Type O POSITIVE Antibody Screen Negative Crossmatch See Detail 02/15/19 02/15/19 02/16/19 07:00 18:30 07:00 WBC 5.4 6.2 RBC 3.93 4.30 Hgb 8.6 L 9.3 L Hct 28.2 L 30.4 L MCV 71.9 L 70.7 L MCH 21.9 L 21.6 L MCHC 30.5 L 30.5 L RDW 23.7 H 23.5 H Plt Count 358 360 MPV 7.7 7.5 Sodium 140 Potassium 4.2 Chloride 106 Carbon Dioxide 28 Anion Gap 7 L BUN 12 Creatinine 0.7 Creat Clearance w eGFR 80.11 Random Glucose 86 Calcium 8.7 Phosphorus 3.9 Magnesium 2.4 Iron TIBC Iron Saturation Ferritin TSH 3.42 Blood Type Antibody Screen Crossmatch 02/16/19 07:00 WBC RBC Hgb Hct MCV MCH MCHC RDW Plt Count MPV Sodium 140 Potassium 3.7 Chloride 104 Carbon Dioxide 28 Anion Gap 9 BUN 11 Creatinine 0.7 Creat Clearance w eGFR 80.11 Random Glucose 87 Calcium 8.2 L Phosphorus 3.8 Magnesium 2.2 Iron TIBC Iron Saturation Ferritin TSH Blood Type Antibody Screen Crossmatch Active Medications Generic Name Dose Route Start Last Admin Trade Name Freq PRN Reason Stop Dose Admin Acetaminophen 650 mg 02/15/19 09:14 02/15/19 10:26 Tylenol - PO 650 mg Q6H PRN Administration Fever Or Pain Ascorbic Acid 500 mg 02/16/19 10:00 Vitamin C - PO DAILY SRIKANTH Ferrous Sulfate 325 mg 02/16/19 10:00 Feosol - PO DAILY SRIKANTH Furosemide 20 mg 02/15/19 10:00 02/15/19 10:26 Lasix Injection - IVPUSH 20 mg DAILY SRIKANTH Administration Metoprolol Succinate 25 mg 02/15/19 10:00 02/15/19 10:27 Toprol Xl - PO 25 mg DAILY SRIKANTH Administration ASSESSMENT/PLAN: The patient is an 83 yo f w/ PMH Parkinson's syndrome, cervical cancer s/p hysterectomy w/ b/l salpingoophrectomy afib on eliquis, HTN, Hyperthyroidism, recurrent UTI as well as a strong family history of colon Ca who was sent to the ED by her GI for anemia and pallor #anemia possibly 2/2 occult blood loss 2/2 eliquis use r/o occult malignancy -GI on board; EGD/ colonscopy today -Iron studies done: iron 20 TIBC 459 iron sat 4 ferritin 3.5 -s/p 2 units PRBCS -transfuse to maintain Hb >8 given cardiac history -started ferrous sulfate and vitamin C #generalized weakness, decreased appetite, weight loss -possibly 2/2 anemia #UA showing 2+ leuk and 37 WBC -patient asymptomatic, no need to treat at this time. -patient has history of ESBL e.coli in the urine #afib -holding eliquis until bleed ruled out -continue with metoprolol -will see if will c/w eliquis or go home on ASA given that patient bled on eliquis #HTN -toprol 25 daily #FEN -no fluids indicated -electrolytes wnl, monitor -clears; NPO after midnight for scope Problem List - Problems (1) Microcytic anemia Code(s): D50.9 - IRON DEFICIENCY ANEMIA, UNSPECIFIED (2) Atrial fibrillation Code(s): I48.91 - UNSPECIFIED ATRIAL FIBRILLATION Qualifiers: Atrial fibrillation type: persistent Qualified Code(s): I48.1 - Persistent atrial fibrillation (3) CAD (coronary artery disease) Code(s): I25.10 - ATHSCL HEART DISEASE OF [place] CORONARY ARTERY W/O ANG PCTRS Qualifiers: Coronary Disease-Associated Artery/Lesion type: [place] artery [place] vs. transplanted heart: [place] heart Associated angina: without angina Qualified Code(s): I25.10 - Atherosclerotic heart disease of [place] coronary artery without angina pectoris (4) CHF (congestive heart failure) Code(s): I50.9 - HEART FAILURE, UNSPECIFIED Visit type - Emergency Visit Emergency Visit: Yes ED Registration Date: 02/15/19 Care time: The patient presented to the Emergency Department on the above date and was hospitalized for further evaluation of their emergent condition. - New Patient This patient is new to me today: No - Critical Care Critical Care patient: No
[2019-02-16] MEDS: FUROSEMIDE 40 MG/4 ML INJECTABLE VIAL IVPUSH SCH (10:55)
--- NOTE | 2019-02-16 15:49 | PN ---
Progress Note (short form) - Note Progress Note: EGD/Colonoscopy complete. Report left in procedural section of physical chart and will be scanned into [facility]. Problem List - Problems (1) Microcytic anemia Code(s): D50.9 - IRON DEFICIENCY ANEMIA, UNSPECIFIED
[2019-02-16] MEDS: FERROUS SO4 325 MG TABLET (FP) PO SCH (15:58)
[2019-02-16] MEDS: ASCORBIC ACID 500 MG TABLET (FP) PO SCH (15:59)
--- NOTE | 2019-02-16 16:52 | CON.CARD ---
Consult Consult Specialty:: Cardiology Referred by:: Hospitalist Medicine Reason for Consultation:: Pre-op CV evaluation - History of Present Illness Chief Complaint: Anemia, pallor History of Present Illness: The patient is [place] speaking. The following history was obtained with the assistance of daughter The patient is an 83 yo f w/ PMH Parkinson's syndrome, cervical cancer s/p hysterectomy w/ b/l salpingoophrectomy, paroxysmal afib->SR post DCCV on eliquis , HTN, DM, Hyperthyroidism, recurrent UTI, asthma referred for evaluation of worsening anemia, light-headedness and pallor. The patient has been seeing her PCP for a 1.5 month history of vague abdominal discomfort. The patient's PCP ordered an outpatient KUB which showed fecal retention, prompting GI referral. When the dope heater noticed her dropping Hb and generalized pallor, he sent her to the ED for evaluation. The patient also endorses a 6 months history of decreased appetite and poor PO intake. Additionally, the patient endorses a 10 lb weight loss over this period of time and hematochezia. Of note, the patient and her daughter a significant family history of colon cancer including a son who at 40 yo from the disease. 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 - History Source History Provided By: Significant Other Limitations to Obtaining History: Language Barrier - Past Medical History MEDIA RELATIONS INTERN: Yes: Parkinson's Cardio/Vascular: Yes: AFIB, HTN Pulmonary: Yes: Asthma Endocrine: Yes: Hyperthyroidism Additional Medical History: Glaucoma - Past Surgical History Past Surgical History: Yes: Hysterectomy - Alcohol/Substance Use Hx Alcohol Use: No - Smoking History Smoking history: Never smoked Have you smoked in the past 12 months: No Aproximately how many cigarettes per day: 0 Home Medications - Allergies Allergies/Adverse Reactions: Allergies Allergy/AdvReac Type Severity Reaction Status Date / Time No Known Allergies Allergy Verified 02/14/19 10:37 - Home Medications Home Medications: Ambulatory Orders Bimatoprost [Lumigan] 1 drop OU DAILY 04/09/17 Apixaban [Eliquis -] 5 mg PO BID #60 tab 04/13/17 Brimonidine Tartrate/Timolol [Combigan 0.2%-0.5% Eye Drops] 5 ml OU BID Metoprolol Succinate [Toprol Xl] 25 mg PO DAILY 02/17/18 Latanoprost 0.005% Eye Drops [Xalatan 0.005% Eye Drops -] 1 drop HS 02/14/19 Losartan Potassium 50 mg PO BID 02/14/19 Methimazole 5 mg PO TID 02/14/19 Review of Systems - Review of Systems Constitutional: reports: Weakness Gastrointestinal: reports: Rectal Bleeding Integumentary: reports: Pallor Vital Signs: Vital Signs Temperature 97.9 F 02/16/19 16:08 Pulse Rate 94 H 02/16/19 16:08 Respiratory Rate 18 02/16/19 16:08 Blood Pressure 126/71 02/16/19 16:08 O2 Sat by Pulse Oximetry (%) 97 02/16/19 15:23 Constitutional: Yes: No Distress, Calm Neck: Yes: Supple Respiratory: Yes: Regular, CTA Bilaterally Gastrointestinal: Yes: Soft, Hypoactive Bowel Sounds Cardiovascular: Yes: Regular Rate and Rhythm JVD: No Carotid Bruit: No Heart Sounds: Yes: S1, S2 Murmur: Yes: Systolic Murmur, Grade 1 Edema: No - Other Data Labs, Other Data: CBC, BMP 02/16/19 07:00 02/16/19 07:00 INR, PTT INR 1.38 (0.83-1.09) H 02/14/19 12:18 Ejection Fraction %: LVEF > or = 40 % Imaging - Results Chest X-ray: Report Reviewed (NAD) Cat Scan: Pending (CT: No liver mets) Problem List - Problems (1) Microcytic anemia Code(s): D50.9 - IRON DEFICIENCY ANEMIA, UNSPECIFIED (2) Atrial fibrillation Code(s): I48.91 - UNSPECIFIED ATRIAL FIBRILLATION Qualifiers: Atrial fibrillation type: persistent Qualified Code(s): I48.1 - Persistent atrial fibrillation (3) CAD (coronary artery disease) Code(s): I25.10 - ATHSCL HEART DISEASE OF [place] CORONARY ARTERY W/O ANG PCTRS Qualifiers: Coronary Disease-Associated Artery/Lesion type: [place] artery [place] vs. transplanted heart: [place] heart Associated angina: without angina Qualified Code(s): I25.10 - Atherosclerotic heart disease of [place] coronary artery without angina pectoris (4) CVA (cerebral vascular accident) Code(s): I63.9 - CEREBRAL INFARCTION, UNSPECIFIED Qualifiers: CVA mechanism: unspecified Qualified Code(s): I63.9 - Cerebral infarction, unspecified (5) HTN (hypertension) Code(s): I10 - ESSENTIAL (PRIMARY) HYPERTENSION Qualifiers: Hypertension type: essential hypertension Qualified Code(s): I10 - Essential (primary) hypertension (6) Hyperthyroidism Code(s): E05.90 - THYROTOXICOSIS, UNSP WITHOUT THYROTOXIC CRISIS OR STORM (7) Parkinson disease Code(s): G20 - PARKINSON'S DISEASE (8) Weakness Code(s): R53.1 - WEAKNESS (9) Colonic mass Code(s): K63.9 - DISEASE OF INTESTINE, UNSPECIFIED Assessment/Plan 02/04/2018 Echo: Normal LV systolic function, mild LVH, mildly dilated ascending thoacic aprta, tr MR, tr TR and trace pericardial effusion DON: Normal LV size and fxnmild MR, TR, mod AR, tr-mild SC 1. Microcytic anemia, hematochezia referable to colonic mass plan for partial colectomy 2. Coronary artery disease angina pectoris 3. Diastolic left ventricular dysfunction with chronic class I [place] Heart [employer] classification left ventricular failure compensated euvolemic 4. Paroxysmal atrial fibrillation [id number] of 6, currently in sinus rhythm off NOAC's, previous DCCV 5. HTN/HCVD 6. Diabetes mellitus 7. Parkinson's disease 8. Hyperthyroidism 9. History of reactive airway disease/bronchial asthma 10. History of gastro-esophageal reflux disease PLAN: 1. Given absence of symptoms of acute coronary syndrome, decompensated CHF or malignant arrhythmia, may proceed with colectomy from CV-standpoint without further testing, f/u ECG, chest CT 2. Continue Toprol XL 50 qd, and resume losartan as hemodynamics tolerate. Eliquis held due to hematochezia and need for surgery with resumption once post- op hemostasis has been achieved 3. Monitor CBC post transfusion to maintain Hgb > 8.0 4. Thank you for consultative opportunity
--- NOTE | 2019-02-16 17:55 | PN ---
Teaching Attending Note Name of Resident: Roxann Garza ATTENDING PHYSICIAN STATEMENT I saw and evaluated the patient. I reviewed the resident's note and discussed the case with the resident. I agree with the resident's findings and plan as documented. SUBJECTIVE: Patient is comfortable going to EGD/colonoscopy. OBJECTIVE: Vital Signs Temperature 97.9 F 02/16/19 16:08 Pulse Rate 94 H 02/16/19 16:08 Respiratory Rate 18 02/16/19 16:08 Blood Pressure 126/71 02/16/19 16:08 O2 Sat by Pulse Oximetry (%) 97 02/16/19 15:23 GENERAL: The patient is more awake, in no acute distress. positive for essential tremor. HEAD: Normal with no signs of trauma. EYES: PERRL, extraocular movements intact, sclera anicteric, conjunctiva clear. ENT: Ears normal, oropharynx clear without exudates, moist mucous membranes. NECK: Trachea midline, full range of motion, supple. LUNGS: Breath sounds equal, CTA bilaterally, no wheezes, no crackles, no accessory muscle use. HEART: Regular rate and rhythm, S1, S2 positive without murmur, rub or gallop. ABDOMEN: Soft, large abdomen, ND, normoactive bowel sounds, no guarding, no rebound, no masses are appreciated. EXTREMITIES: 2+ pulses, warm, well-perfused, no edema. NEUROLOGICAL: Cranial nerves II through XII grossly intact. Normal speech, gait not observed. PSYCH: Normal mood, normal affect. SKIN: Warm, dry, normal turgor, no rashes or lesions noted CBCD WBC 6.2 K/mm3 (4.0-10.0) 02/16/19 07:00 RBC 4.30 M/mm3 (3.60-5.2) 02/16/19 07:00 Hgb 9.3 GM/dL (10.7-15.3) L 02/16/19 07:00 Hct 30.4 % (32.4-45.2) L 02/16/19 07:00 MCV 70.7 fl (80-96) L 02/16/19 07:00 MCHC 30.5 g/dl (32.0-36.0) L 02/16/19 07:00 RDW 23.5 % (11.6-15.6) H 02/16/19 07:00 Plt Count 360 K/MM3 (134-434) 02/16/19 07:00 MPV 7.5 fl (7.5-11.1) 02/16/19 07:00 CMP Sodium 140 mmol/L (136-145) 02/16/19 07:00 Potassium 3.7 mmol/L (3.5-5.1) 02/16/19 07:00 Chloride 104 mmol/L (98-107) 02/16/19 07:00 Carbon Dioxide 28 mmol/L (21-32) 02/16/19 07:00 Anion Gap 9 MMOL/L (8-16) 02/16/19 07:00 BUN 11 mg/dL (7-18) 02/16/19 07:00 Creatinine 0.7 mg/dL (0.55-1.3) 02/16/19 07:00 Creat Clearance w eGFR 80.11 (>60) 02/16/19 07:00 Random Glucose 87 mg/dL (74-106) 02/16/19 07:00 Calcium 8.2 mg/dL (8.5-10.1) L 02/16/19 07:00 Total Bilirubin 0.3 mg/dL (0.2-1) 02/14/19 11:46 AST 15 U/L (15-37) 02/14/19 11:46 ALT 12 U/L (13-61) L 02/14/19 11:46 Alkaline Phosphatase 88 U/L (45-117) 02/14/19 11:46 Total Protein 6.6 g/dl (6.4-8.2) 02/14/19 11:46 Albumin 3.2 g/dl (3.4-5.0) L 02/14/19 11:46 CARDIAC ENZYMES Troponin I 0.02 ng/ml (0.00-0.05) 02/14/19 12:18 Current Medications Generic Name Dose Route Start Last Admin Trade Name Hussein PRN Reason Stop Dose Admin Acetaminophen 650 mg 02/15/19 09:14 02/15/19 10:26 Tylenol - PO 650 mg Q6H PRN Administration Fever Or Pain Ascorbic Acid 500 mg 02/16/19 10:00 02/16/19 15:59 Vitamin C - PO 500 mg DAILY SRIKANTH Administration Ferrous Sulfate 325 mg 02/16/19 10:00 02/16/19 15:58 Feosol - PO 325 mg DAILY SRIKANTH Administration Furosemide 20 mg 02/15/19 10:00 02/16/19 10:55 Lasix Injection - IVPUSH 20 mg DAILY SRIKANTH Administration Metoprolol Succinate 50 mg 02/16/19 09:07 02/16/19 15:58 Toprol Xl - PO 50 mg DAILY SRIKANTH Administration Home Medications Medication Instructions Recorded RX: Bimatoprost [Lumigan] 1 drop OU DAILY 04/09/17 RX: Apixaban [Eliquis -] 5 mg PO BID #60 tab 04/13/17 RX: Brimonidine Tartrate/Timolol 5 ml OU BID 02/17/18 [Combigan 0.2%-0.5% Eye Drops] RX: Metoprolol Succinate [Toprol 25 mg PO DAILY 02/17/18 Xl] Latanoprost 0.005% Eye Drops 1 drop HS 02/14/19 [Xalatan 0.005% Eye Drops -] RX: Losartan Potassium 50 mg PO BID 02/14/19 RX: Methimazole 5 mg PO TID 02/14/19 ASSESSMENT AND PLAN: Patient is a 83yo female with PMhx of A fib on eliquis s/p cardioversion, DM, HTN, hyperthyroidism , patient was seen in GI clinic today by Dr. Rangel with abdominal pain , generalized weakness and was found to have severe worsening anemia with microcytosis. was send to Ed. for further care. # Acute symptomatic microcytic anemia: patient went for EGD and colonoscopy , completed, discussed with Dr. Sharp, s/p 2 units of pRBC, lasix 20mg iv post transfusion, keep hgb > 7, will start on iron supplement. continue to hold eliquis since patient is having bleeding possible at the site of tumor, Surgery for consult , will evaluate the patient. #hx of A fib rate is controlled , Eliquis on hold due to GI bleed, on Toprol xl 25mg will continue . # Acute over chronic diastolic CHF: BNP of 16K, s/p lasix iv post transfusion. #HTN: continue home meds. #T2DM , sliding scale with coverage #asthma: nebs prn Dvt px: SCds, hold eliquis GI Px: Protonix
[2019-02-16] MEDS: ACETAMINOPHEN 325 MG TABLET (FP) PO PRN (19:45)
--- NOTE | 2019-02-16 19:45 | CONSULT ---
Consult - text type - Consultation Consultation Note: The patient is an 83 yo f w/ PMH Parkinson's syndrome, cervical cancer s/p hysterectomy w/ b/l salpingoophrectomy afib on eliquis, HTN, Hyperthyroidism, recurrent UTI who was sent to the ED by her gastroentrologist for evaluation of worsening anemia and pallor. she was noted to be severely anemic . The patient also endorses a 6 months history of decreased appetite and poor PO intake. Additionally, the patient endorses a 10 lb weight loss over this period of time. Of note, the patient and her daughter a significant family history of colon cancer including a son who at 40 yo from the disease. 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 Cardio/Vascular: Yes: AFIB, HTN Pulmonary: Yes: Asthma Endocrine: Yes: Hyperthyroidism Additional Medical History: Glaucoma - Past Surgical History Past Surgical History: Yes: Hysterectomy - Smoking History Smoking history: Never smoked Home Medications - Allergies Allergies/Adverse Reactions: Allergies Allergy/AdvReac Type Severity Reaction Status Date / Time No Known Allergies Allergy Verified 02/14/19 10:37 - Home Medications Home Medications: Ambulatory Orders Bimatoprost [Lumigan] 1 drop OU DAILY 04/09/17 Apixaban [Eliquis -] 5 mg PO BID #60 tab 04/13/17 Brimonidine Tartrate/Timolol [Combigan 0.2%-0.5% Eye Drops] 5 ml OU BID Metoprolol Succinate [Toprol Xl] 25 mg PO DAILY 02/17/18 Latanoprost 0.005% Eye Drops [Xalatan 0.005% Eye Drops -] 1 drop HS 02/14/19 Losartan Potassium 50 mg PO BID 02/14/19 Methimazole 5 mg PO TID 02/14/19 Vital Signs: Vital Signs Temperature 97.9 F 02/16/19 16:08 Pulse Rate 94 H 02/16/19 16:08 Respiratory Rate 18 02/16/19 16:08 Blood Pressure 126/71 02/16/19 16:08 O2 Sat by Pulse Oximetry (%) 97 02/16/19 15:23 Assessment/Plan 1. Dizziness and near syncope, 2. Coronary artery disease angina pectoris 3. Diastolic left ventricular dysfunction with chronic class I [place] Heart Association classification left ventricular failure compensated euvolemic 4. Paroxysmal atrial fibrillation [id number] of 6, currently in sinus rhythm on A/C with NOAC's 5. HTN/HCVD 6. Diabetes mellitus 7. Parkinson's disease, questionable 8. History of hyperthyroidism 9. History of reactive airway disease/bronchial asthma 10. History of gastro-esophageal reflux disease 11. Anemia Iron deficiency anemia -- Hgb 6.2/ s/p PRBCs Colonoscopy --descending colon near obstructing mass at 50cm CT a/p unrevealing CT chest pending CEA is pending Cardiology clearence Surgcal consult Family h/o Dalton syndrome -- contact no. given given to daughters for Dr. zhang/ged teacher and asked thenm to get formally evaluated and asked them to college counselor allother 1st/2nd/3rd degree relatives in the family
--- NOTE | 2019-02-17 07:58 | CONSULT ---
- Consultation REQUESTING PROVIDER: Salo CHENG CONSULT REQUEST: We have been asked to surgically evaluate this patient for a colonic neoplasm. 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 She has never had a colonoscopy. She has been transfused since admission. PMHx: AF PSHx: BTL; HTN; eye disease; thyroid disease Home Medications Medication Instructions Recorded Bimatoprost [Lumigan] 1 drop OU DAILY 04/09/17 Apixaban [Eliquis -] 5 mg PO BID #60 tab 04/13/17 Brimonidine Tartrate/Timolol 5 ml OU BID 02/17/18 [Combigan 0.2%-0.5% Eye Drops] Metoprolol Succinate [Toprol Xl] 25 mg PO DAILY 02/17/18 Latanoprost 0.005% Eye Drops 1 drop HS 02/14/19 [Xalatan 0.005% Eye Drops -] Losartan Potassium 50 mg PO BID 02/14/19 Methimazole 5 mg PO TID 02/14/19 Allergies Allergy/AdvReac Type Severity Reaction Status Date / Time No Known Allergies Allergy Verified 02/14/19 10:37 PHYSICAL EXAM: GENERAL: Awake, alert, and fully oriented, in no acute distress. HEAD: Normal with no signs of trauma. EYES: PERRL, sclera anicteric, conjunctiva clear. NECK: Normal ROM, supple without lymphadenopathy, JVD, or masses. ABDOMEN: Soft, nontender, not distended, normoactive bowel sounds, no guarding, no rebound, no masses. No organomegaly. MUSCULOSKELETAL: Normal ROM at all joints. No bony deformities or tenderness. No CVA tenderness. UPPER EXTREMITIES: 2+ pulses, warm, well-perfused. No cyanosis. Cap refill <2 seconds. No peripheral edema. LOWER EXTREMITIES: 2+ pulses, warm, well-perfused. No calf tenderness. No peripheral edema. NEUROLOGICAL: Normal speech, gait not observed. PSYCH: Cooperative. Good eye contact. Appropriate mood and affect. SKIN: Warm, dry, normal turgor, no rashes or lesions noted. Vital Signs Temperature 98.4 F 02/17/19 06:00 Pulse Rate 108 H 02/17/19 06:00 Respiratory Rate 18 02/17/19 06:00 Blood Pressure 120/62 02/17/19 06:00 O2 Sat by Pulse Oximetry (%) 97 02/16/19 21:00 Lab Results WBC 6.2 K/mm3 (4.0-10.0) 02/16/19 07:00 RBC 4.30 M/mm3 (3.60-5.2) 02/16/19 07:00 Hgb 9.3 GM/dL (10.7-15.3) L 02/16/19 07:00 Hct 30.4 % (32.4-45.2) L 02/16/19 07:00 MCV 70.7 fl (80-96) L 02/16/19 07:00 MCHC 30.5 g/dl (32.0-36.0) L 02/16/19 07:00 RDW 23.5 % (11.6-15.6) H 02/16/19 07:00 Plt Count 360 K/MM3 (134-434) 02/16/19 07:00 Sodium 140 mmol/L (136-145) 02/16/19 07:00 Potassium 3.7 mmol/L (3.5-5.1) 02/16/19 07:00 Chloride 104 mmol/L (98-107) 02/16/19 07:00 Carbon Dioxide 28 mmol/L (21-32) 02/16/19 07:00 Anion Gap 9 MMOL/L (8-16) 02/16/19 07:00 BUN 11 mg/dL (7-18) 02/16/19 07:00 Creatinine 0.7 mg/dL (0.55-1.3) 02/16/19 07:00 Random Glucose 87 mg/dL (74-106) 02/16/19 07:00 Calcium 8.2 mg/dL (8.5-10.1) L 02/16/19 07:00 Blood Type O POSITIVE 02/14/19 13:27 Antibody Screen Negative 02/14/19 12:18 INR 1.38 (0.83-1.09) H 02/14/19 12:18 Imaging w/u reviewed; GI notes/procedures reviewed CEA is 30. IMP: colonic neoplasm PLAN: Will need partial colectomy this week upcoming; d/w the patients daughter and patient in [place]; r/b/t/a's and they wish to proceed; will need Cardiology evaluation pre-op which is in progress; will f/u; case was d/w Dr. Brian Leong. Please order CEA. John Alvarado MD FACS
[2019-02-17 09:51] LABS: HEMATOCRIT 29.6 % (32.4-45.2); HEMOGLOBIN 9.3 GM/dL (10.7-15.3); MCH 22.5 pg (25.7-33.7); MCHC 31.4 g/dl (32.0-36.0); MEAN CELL VOLUME 71.6 fl (80-96); MEAN PLT VOLUME 7.7 fl (7.5-11.1); PLATELET COUNT 357 K/MM3 (134-434); RBC 4.13 M/mm3 (3.60-5.2); RDW 25.3 % (11.6-15.6); WHITE BLOOD COUNT 5.6 K/mm3 (4.0-10.0)
[2019-02-17] MEDS: ASCORBIC ACID 500 MG TABLET (FP) PO SCH (09:56)
[2019-02-17] MEDS: FERROUS SO4 325 MG TABLET (FP) PO SCH (09:56)
[2019-02-17] MEDS: FUROSEMIDE 40 MG/4 ML INJECTABLE VIAL IVPUSH SCH (09:57)
[2019-02-17 10:23] LABS: ANION GAP 10 MMOL/L (8-16); BLOOD UREA NITROGEN 12 mg/dL (7-18); CALCIUM 8.2 mg/dL (8.5-10.1); CHLORIDE 103 mmol/L (98-107); CO2 27 mmol/L (21-32); CREATININE 0.7 mg/dL (0.55-1.3); GLUCOSE,RANDOM 85 mg/dL (74-106); MAGNESIUM 2.1 mg/dL (1.8-2.4); POTASSIUM 3.7 mmol/L (3.5-5.1); SODIUM 140 mmol/L (136-145)
--- NOTE | 2019-02-17 11:20 | PN ---
Progress Note (short form) - Note Progress Note: Patient is feeling better with no acute distress. Vital Signs Temperature 98.4 F 02/17/19 06:00 Pulse Rate 108 H 02/17/19 06:00 Respiratory Rate 18 02/17/19 06:00 Blood Pressure 120/62 02/17/19 06:00 O2 Sat by Pulse Oximetry (%) 97 02/16/19 21:00 GENERAL: The patient is more awake, in no acute distress. positive for essential tremor. HEAD: Normal with no signs of trauma. EYES: PERRL, extraocular movements intact, sclera anicteric, conjunctiva clear. ENT: Ears normal, oropharynx clear without exudates, moist mucous membranes. NECK: Trachea midline, full range of motion, supple. LUNGS: Breath sounds equal, CTA bilaterally, no wheezes, no crackles, no accessory muscle use. HEART: Regular rate and rhythm, S1, S2 positive without murmur, rub or gallop. ABDOMEN: Soft, large abdomen, ND, normoactive bowel sounds, no guarding, no rebound, no masses are appreciated. EXTREMITIES: 2+ pulses, warm, well-perfused, no edema. NEUROLOGICAL: Cranial nerves II through XII grossly intact. Normal speech, gait not observed. PSYCH: Normal mood, normal affect. SKIN: Warm, dry, normal turgor, no rashes or lesions noted CBCD WBC 5.6 K/mm3 (4.0-10.0) 02/17/19 07:30 RBC 4.13 M/mm3 (3.60-5.2) 02/17/19 07:30 Hgb 9.3 GM/dL (10.7-15.3) L 02/17/19 07:30 Hct 29.6 % (32.4-45.2) L 02/17/19 07:30 MCV 71.6 fl (80-96) L 02/17/19 07:30 MCHC 31.4 g/dl (32.0-36.0) L 02/17/19 07:30 RDW 25.3 % (11.6-15.6) H 02/17/19 07:30 Plt Count 357 K/MM3 (134-434) 02/17/19 07:30 MPV 7.7 fl (7.5-11.1) 02/17/19 07:30 CMP Sodium 140 mmol/L (136-145) 02/17/19 07:30 Potassium 3.7 mmol/L (3.5-5.1) 02/17/19 07:30 Chloride 103 mmol/L (98-107) 02/17/19 07:30 Carbon Dioxide 27 mmol/L (21-32) 02/17/19 07:30 Anion Gap 10 MMOL/L (8-16) 02/17/19 07:30 BUN 12 mg/dL (7-18) 02/17/19 07:30 Creatinine 0.7 mg/dL (0.55-1.3) 02/17/19 07:30 Creat Clearance w eGFR 80.11 (>60) 02/17/19 07:30 Random Glucose 85 mg/dL (74-106) 02/17/19 07:30 Calcium 8.2 mg/dL (8.5-10.1) L 02/17/19 07:30 Total Bilirubin 0.3 mg/dL (0.2-1) 02/14/19 11:46 AST 15 U/L (15-37) 02/14/19 11:46 ALT 12 U/L (13-61) L 02/14/19 11:46 Alkaline Phosphatase 88 U/L (45-117) 02/14/19 11:46 Total Protein 6.6 g/dl (6.4-8.2) 02/14/19 11:46 Albumin 3.2 g/dl (3.4-5.0) L 02/14/19 11:46 CARDIAC ENZYMES Troponin I 0.02 ng/ml (0.00-0.05) 02/14/19 12:18 Home Medications Medication Instructions Recorded Bimatoprost [Lumigan] 1 drop OU DAILY 04/09/17 Apixaban [Eliquis -] 5 mg PO BID #60 tab 04/13/17 Brimonidine Tartrate/Timolol 5 ml OU BID 02/17/18 [Combigan 0.2%-0.5% Eye Drops] Metoprolol Succinate [Toprol Xl] 25 mg PO DAILY 02/17/18 Latanoprost 0.005% Eye Drops 1 drop HS 02/14/19 [Xalatan 0.005% Eye Drops -] Losartan Potassium 50 mg PO BID 02/14/19 Methimazole 5 mg PO TID 02/14/19 Assessment and plan: Patient is a 83yo female with PMhx of A fib on eliquis s/p cardioversion, DM, HTN, hyperthyroidism , patient was seen in GI clinic today by Dr. Rangel with abdominal pain , generalized weakness and was found to have severe worsening anemia with microcytosis. was send to Ed. for further care. # Acute symptomatic microcytic anemia: patient went for EGD and colonoscopy , completed, discussed with Dr. Sharp, s/p 2 units of pRBC, lasix 20mg iv post transfusion, keep hgb > 7, will start on iron supplement. continue to hold eliquis since patient is having bleeding possible at the site of tumor, Surgical consult and cardio. consult appreciated . will get CEA level #hx of A fib rate is controlled , Eliquis on hold due to GI bleed, on Toprol xl 25mg will continue . # Acute over chronic diastolic CHF: BNP of 16K, s/p lasix iv post transfusion. #HTN: continue home meds. #T2DM , sliding scale with coverage #asthma: nebs prn Dvt px: SCds, hold eliquis GI Px: Protonix Visit type - Emergency Visit Emergency Visit: Yes ED Registration Date: 02/15/19 Care time: The patient presented to the Emergency Department on the above date and was hospitalized for further evaluation of their emergent condition. - New Patient This patient is new to me today: No - Critical Care Critical Care patient: No - Discharge Referral Referred to [facility] No
--- NOTE | 2019-02-17 13:48 | PN ---
Progress Note, Physician History of Present Illness: Hgb stable post transfusion, denies active hematochezia. - Current Medication List Current Medications: Active Medications Acetaminophen (Tylenol -) 650 mg PO Q6H PRN PRN Reason: Fever Or Pain Last Admin: 02/16/19 19:45 Dose: 650 mg Ascorbic Acid (Vitamin C -) 500 mg PO DAILY [facility] Last Admin: 02/17/19 09:56 Dose: 500 mg Ferrous Sulfate (Feosol -) 325 mg PO DAILY [facility] Last Admin: 02/17/19 09:56 Dose: 325 mg Furosemide (Lasix Injection -) 20 mg IVPUSH DAILY [facility] Last Admin: 02/17/19 09:57 Dose: 20 mg Metoprolol Succinate (Toprol Xl -) 50 mg PO DAILY [facility] Last Admin: 02/17/19 09:57 Dose: 50 mg - Objective Vital Signs: Vital Signs Temperature 98.5 F 02/17/19 10:00 Pulse Rate 94 H 02/17/19 10:00 Respiratory Rate 18 02/17/19 10:00 Blood Pressure 116/67 02/17/19 10:00 O2 Sat by Pulse Oximetry (%) 97 02/16/19 21:00 Constitutional: Yes: No Distress, Calm Neck: Yes: Supple Cardiovascular: Yes: Regular Rate and Rhythm Respiratory: Yes: Regular, CTA Bilaterally Gastrointestinal: Yes: Normal Bowel Sounds, Soft, Abdomen, Obese Edema: No Labs: CBC, BMP 02/17/19 07:30 02/17/19 07:30 INR, PTT INR 1.38 (0.83-1.09) H 02/14/19 12:18 Problem List - Problems (1) Microcytic anemia Code(s): D50.9 - IRON DEFICIENCY ANEMIA, UNSPECIFIED (2) Atrial fibrillation Code(s): I48.91 - UNSPECIFIED ATRIAL FIBRILLATION Qualifiers: Atrial fibrillation type: persistent Qualified Code(s): I48.1 - Persistent atrial fibrillation (3) CAD (coronary artery disease) Code(s): I25.10 - ATHSCL HEART DISEASE OF [place] CORONARY ARTERY W/O ANG PCTRS Qualifiers: Coronary Disease-Associated Artery/Lesion type: [place] artery [place] vs. transplanted heart: [place] heart Associated angina: without angina Qualified Code(s): I25.10 - Atherosclerotic heart disease of [place] coronary artery without angina pectoris (4) CVA (cerebral vascular accident) Code(s): I63.9 - CEREBRAL INFARCTION, UNSPECIFIED Qualifiers: CVA mechanism: unspecified Qualified Code(s): I63.9 - Cerebral infarction, unspecified (5) HTN (hypertension) Code(s): I10 - ESSENTIAL (PRIMARY) HYPERTENSION Qualifiers: Hypertension type: essential hypertension Qualified Code(s): I10 - Essential (primary) hypertension (6) Hyperthyroidism Code(s): E05.90 - THYROTOXICOSIS, UNSP WITHOUT THYROTOXIC CRISIS OR STORM (7) Parkinson disease Code(s): G20 - PARKINSON'S DISEASE (8) Weakness Code(s): R53.1 - WEAKNESS (9) Colonic mass Code(s): K63.9 - DISEASE OF INTESTINE, UNSPECIFIED Assessment/Plan 02/04/2018 Echo: Normal LV systolic function, mild LVH, mildly dilated ascending thoacic aprta, tr MR, tr TR and trace pericardial effusion DON: Normal LV size and fxnmild MR, TR, mod AR, tr-mild CT 1. Microcytic anemia, hematochezia referable to colonic mass plan for partial colectomy 2. Coronary artery disease angina pectoris 3. Diastolic left ventricular dysfunction with chronic class I [place] [employer] classification left ventricular failure compensated euvolemic 4. Paroxysmal atrial fibrillation [id number] of 6, currently in sinus rhythm off NOAC's, previous DCCV 5. HTN/HCVD 6. Diabetes mellitus 7. Parkinson's disease 8. Hyperthyroidism 9. History of reactive airway disease/bronchial asthma 10. History of gastro-esophageal reflux disease PLAN: 1. Given absence of symptoms of acute coronary syndrome, decompensated CHF or malignant arrhythmia, may proceed with colectomy from CV-standpoint without further testing, f/u ECG, chest CT 2. Continue Toprol XL 50 qd, and resume losartan as hemodynamics tolerate. Eliquis held due to hematochezia and need for surgery with resumption once post- op hemostasis has been achieved 3. Monitor CBC post transfusion to maintain Hgb > 8.0
[2019-02-18 08:30] LABS: BASO % 0.9 % (0-2.0); EOS % 3.8 % (0-4.5); HEMATOCRIT 28.5 % (32.4-45.2); HEMOGLOBIN 8.6 GM/dL (10.7-15.3); LYMPH % 27.2 % (8-40); MCH 21.6 pg (25.7-33.7); MCHC 30.1 g/dl (32.0-36.0); MEAN CELL VOLUME 71.9 fl (80-96); MEAN PLT VOLUME 7.2 fl (7.5-11.1); MONO % 15.5 % (3.8-10.2); NEUT % 52.6 % (42.8-82.8); PLATELET COUNT 307 K/MM3 (134-434); RBC 3.97 M/mm3 (3.60-5.2); RDW 25.4 % (11.6-15.6); WHITE BLOOD COUNT 4.7 K/mm3 (4.0-10.0)
[2019-02-18 09:01] LABS: ALBUMIN 2.8 g/dl (3.4-5.0); ALK PHOS 77 U/L (45-117); ANION GAP 6 MMOL/L (8-16); BILIRUBIN,TOTAL 0.3 mg/dL (0.2-1); BLOOD UREA NITROGEN 11 mg/dL (7-18); CALCIUM 8.6 mg/dL (8.5-10.1); CHLORIDE 106 mmol/L (98-107); CO2 28 mmol/L (21-32); CREATININE 0.7 mg/dL (0.55-1.3); GLUCOSE,RANDOM 84 mg/dL (74-106); MAGNESIUM 2.5 mg/dL (1.8-2.4); SGOT/AST 12 U/L (15-37); SGPT/ALT 13 U/L (13-61); SODIUM 140 mmol/L (136-145); TOT PROT 5.8 g/dl (6.4-8.2)
[2019-02-18] MEDS: FUROSEMIDE 40 MG/4 ML INJECTABLE VIAL IVPUSH SCH (10:42)
[2019-02-18] MEDS: FERROUS SO4 325 MG TABLET (FP) PO SCH (10:42)
[2019-02-18] MEDS: ASCORBIC ACID 500 MG TABLET (FP) PO SCH (10:42)
--- NOTE | 2019-02-18 11:10 | PN ---
Physical Exam: SUBJECTIVE: Patient seen and examined at bedside. No overnight events. No new complaints. Continues to have right sided abdominal discomfort. Denies CP,CERRATO, SOB, palpitations, nausea, vomiting, fever or chills. OBJECTIVE: Vital Signs Period Temp Pulse Resp BP Sys/Ugarte Pulse Ox Last 24 Hr 98.5 F-98.6 F 80-100 20-20 100-116/48-73 98 GENERAL: awake and alert, NAD HEAD: Normal with no signs of trauma. EYES: PERRL, sclera anicteric, conjunctiva clear. ENT: moist mucous membranes. NECK: Trachea midline, full range of motion, supple. LUNGS: CTAB, no wheezes, no crackles, no accessory muscle use. HEART: Irregular rate, S1, S2 without murmur, rub or gallop. ABDOMEN: Soft, large abdomen, ND,RUQ tenderness to palpation, normoactive bowel sounds, no guarding, no rebound, no masses are appreciated. EXTREMITIES: 2+ pulses, warm, well-perfused, no edema. NEUROLOGICAL: Cranial nerves II through XII grossly intact. Normal speech, gait not observed. positive for essential tremor PSYCH: Normal mood, normal affect. SKIN: Warm, dry, normal turgor, no rashes or lesions noted Laboratory Results - last 24 hr 02/14/19 02/16/19 02/18/19 12:18 06:00 07:00 WBC 4.7 RBC 3.97 Hgb 8.6 L Hct 28.5 L MCV 71.9 L MCH 21.6 L MCHC 30.1 L RDW 25.4 H Plt Count 307 MPV 7.2 L Absolute Neuts (auto) 2.5 Neutrophils % 52.6 D Lymphocytes % 27.2 D Monocytes % 15.5 H Eosinophils % 3.8 D Basophils % 0.9 Nucleated RBC % 0 Sodium Potassium Chloride Carbon Dioxide Anion Gap BUN Creatinine Creat Clearance w eGFR Random Glucose Calcium Phosphorus Magnesium Total Bilirubin AST ALT Alkaline Phosphatase Total Protein Albumin Carcinoembryonic Ag 30.7 H Blood Type O POSITIVE Antibody Screen Negative Crossmatch See Detail 02/18/19 07:00 WBC RBC Hgb Hct MCV MCH MCHC RDW Plt Count MPV Absolute Neuts (auto) Neutrophils % Lymphocytes % Monocytes % Eosinophils % Basophils % Nucleated RBC % Sodium 140 Potassium 4.0 Chloride 106 Carbon Dioxide 28 Anion Gap 6 L BUN 11 Creatinine 0.7 Creat Clearance w eGFR 80.11 Random Glucose 84 Calcium 8.6 Phosphorus 4.0 Magnesium 2.5 H Total Bilirubin 0.3 AST 12 L ALT 13 Alkaline Phosphatase 77 Total Protein 5.8 L Albumin 2.8 L Carcinoembryonic Ag Blood Type Antibody Screen Crossmatch Active Medications Generic Name Dose Route Start Last Admin Trade Name Freq PRN Reason Stop Dose Admin Acetaminophen 650 mg 02/15/19 09:14 02/16/19 19:45 Tylenol - PO 650 mg Q6H PRN Administration Fever Or Pain Ascorbic Acid 500 mg 02/16/19 10:00 02/18/19 10:42 Vitamin C - PO 500 mg DAILY [facility]KAN[facility] Administration Ferrous Sulfate 325 mg 02/16/19 10:00 02/18/19 10:42 Feosol - PO 325 mg DAILY [facility] Administration Furosemide 20 mg 02/15/19 10:00 02/18/19 10:42 Lasix Injection - IVPUSH 20 mg DAILY [facility] Administration Metoprolol Succinate 50 mg 02/16/19 09:07 02/18/19 10:42 Toprol Xl - PO 50 mg DAILY [facility]KAN[facility] Administration ASSESSMENT/PLAN: 83yo female with PMhx of A fib on eliquis s/p cardioversion, DM, HTN, hyperthyroidism , patient was seen in GI clinic today by Dr. Rangel with abdominal pain , generalized weakness and was found to have severe worsening anemia with microcytosis found to have large colonic mass. Problem List - Problems (1) Colonic mass Assessment/Plan: Colonoscopy --descending colon near obstructing mass at 50cm * CEA was elevated * plan for surgical intervention some time next week. * Heme/Onc consult appreciated. * CT a/p was unrevealing * CT chest pending read. * Family h/o Dalton syndrome (2) Microcytic anemia Assessment/Plan: continue Iron supplementation. * maintain Hgb >8.0 as per cardiology. (3) Atrial fibrillation Assessment/Plan: Paroxysmal atrial fibrillation [id number] of 6, currently in sinus rhythm off NOAC's, previous DCCV * Cardiology consult appreciated. * continue Toprol XL 50 qd * resume losartan as hemodynamics tolerate. * Eliquis held due to hematochezia and need for surgery with resumption once post-op hemostasis has been achieved (4) Parkinsonian syndrome Assessment/Plan: No treatment at this time (5) CAD (coronary artery disease) Assessment/Plan: ASA and AC held 2/2 hematocezia. * Will resume when appropriate * Continue BB (6) CHF (congestive heart failure) Assessment/Plan: * Furosemide (Lasix Injection -) 20 mg IVPUSH DAILY * Metoprolol Succinate (Toprol Xl -) 50 mg PO DAILY (7) HTN (hypertension) Assessment/Plan: Continue current regimen. (8) Hyperthyroidism Assessment/Plan: Methimazole held Visit type - Emergency Visit Emergency Visit: Yes ED Registration Date: 02/15/19 Care time: The patient presented to the Emergency Department on the above date and was hospitalized for further evaluation of their emergent condition. - New Patient This patient is new to me today: Yes Date on this admission: 02/18/19 - Critical Care Critical Care patient: No
[2019-02-18 13:48] LABS: ANISOCYTOSIS 2+; MACROCYTOSIS 0; OVALOCYTE 1+; PLATELET ESTIMATE NORMAL; TARGET CELLS 1+
--- NOTE | 2019-02-18 14:23 | PN ---
Teaching Attending Note Name of Resident: [place] ATTENDING PHYSICIAN STATEMENT I saw and evaluated the patient. I reviewed the resident's note and discussed the case with the resident. I agree with the resident's findings and plan as documented. SUBJECTIVE: Patient is feeling better with no acute distress. no new complains. OBJECTIVE: Vital Signs Temperature 98.3 F 02/18/19 12:00 Pulse Rate 78 02/18/19 12:00 Respiratory Rate 20 02/18/19 12:00 Blood Pressure 123/60 02/18/19 12:00 O2 Sat by Pulse Oximetry (%) 97 02/18/19 09:00 GENERAL: The patient is more awake, in no acute distress. positive for essential tremor. HEAD: Normal with no signs of trauma. EYES: PERRL, extraocular movements intact, sclera anicteric, conjunctiva clear. ENT: Ears normal, oropharynx clear without exudates, moist mucous membranes. NECK: Trachea midline, full range of motion, supple. LUNGS: Breath sounds equal, CTA bilaterally, no wheezes, no crackles, no accessory muscle use. HEART: Regular rate and rhythm, S1, S2 positive without murmur, rub or gallop. ABDOMEN: Soft, large abdomen, ND, normoactive bowel sounds, no guarding, no rebound, no masses are appreciated. EXTREMITIES: 2+ pulses, warm, well-perfused, no edema. NEUROLOGICAL: Cranial nerves II through XII grossly intact. Normal speech, gait not observed. PSYCH: Normal mood, normal affect. SKIN: Warm, dry, normal turgor, no rashes or lesions noted CBCD WBC 4.7 K/mm3 (4.0-10.0) 02/18/19 07:00 RBC 3.97 M/mm3 (3.60-5.2) 02/18/19 07:00 Hgb 8.6 GM/dL (10.7-15.3) L 02/18/19 07:00 Hct 28.5 % (32.4-45.2) L 02/18/19 07:00 MCV 71.9 fl (80-96) L 02/18/19 07:00 MCHC 30.1 g/dl (32.0-36.0) L 02/18/19 07:00 RDW 25.4 % (11.6-15.6) H 02/18/19 07:00 Plt Count 307 K/MM3 (134-434) 02/18/19 07:00 MPV 7.2 fl (7.5-11.1) L 02/18/19 07:00 CMP Sodium 140 mmol/L (136-145) 02/18/19 07:00 Potassium 4.0 mmol/L (3.5-5.1) 02/18/19 07:00 Chloride 106 mmol/L (98-107) 02/18/19 07:00 Carbon Dioxide 28 mmol/L (21-32) 02/18/19 07:00 Anion Gap 6 MMOL/L (8-16) L 02/18/19 07:00 BUN 11 mg/dL (7-18) 02/18/19 07:00 Creatinine 0.7 mg/dL (0.55-1.3) 02/18/19 07:00 Creat Clearance w eGFR 80.11 (>60) 02/18/19 07:00 Random Glucose 84 mg/dL (74-106) 02/18/19 07:00 Calcium 8.6 mg/dL (8.5-10.1) 02/18/19 07:00 Total Bilirubin 0.3 mg/dL (0.2-1) 02/18/19 07:00 AST 12 U/L (15-37) L 02/18/19 07:00 ALT 13 U/L (13-61) 02/18/19 07:00 Alkaline Phosphatase 77 U/L (45-117) 02/18/19 07:00 Total Protein 5.8 g/dl (6.4-8.2) L 02/18/19 07:00 Albumin 2.8 g/dl (3.4-5.0) L 02/18/19 07:00 CARDIAC ENZYMES Troponin I 0.02 ng/ml (0.00-0.05) 02/14/19 12:18 Current Medications Generic Name Dose Route Start Last Admin Trade Name Freq PRN Reason Stop Dose Admin Acetaminophen 650 mg 02/15/19 09:14 02/16/19 19:45 Tylenol - PO 650 mg Q6H PRN Administration Fever Or Pain Ascorbic Acid 500 mg 02/16/19 10:00 02/18/19 10:42 Vitamin C - PO 500 mg DAILY [facility] Administration Ferrous Sulfate 325 mg 02/16/19 10:00 02/18/19 10:42 Feosol - PO 325 mg DAILY [facility] Administration Furosemide 20 mg 02/15/19 10:00 02/18/19 10:42 Lasix Injection - IVPUSH 20 mg DAILY [facility] Administration Metoprolol Succinate 50 mg 02/16/19 09:07 02/18/19 10:42 Toprol Xl - PO 50 mg DAILY [facility] Administration Home Medications Medication Instructions Recorded Bimatoprost [Lumigan] 1 drop OU DAILY 04/09/17 Apixaban [Eliquis -] 5 mg PO BID #60 tab 04/13/17 Brimonidine Tartrate/Timolol 5 ml OU BID 02/17/18 [Combigan 0.2%-0.5% Eye Drops] Metoprolol Succinate [Toprol Xl] 25 mg PO DAILY 02/17/18 Latanoprost 0.005% Eye Drops 1 drop HS 02/14/19 [Xalatan 0.005% Eye Drops -] Losartan Potassium 50 mg PO BID 02/14/19 Methimazole 5 mg PO TID 02/14/19 Laboratory Tests 02/18/18 02/18/18 02/14/19 06:00 06:00 08:30 Hemoglobin A1c % 6.2 H Iron TIBC Iron Saturation Ferritin 3.5 L Albumin Triglycerides 67 Cholesterol 204 H Total LDL Cholesterol 121 H HDL Cholesterol 68 H Carcinoembryonic Ag TSH 02/14/19 02/15/19 02/16/19 19:05 07:00 06:00 Hemoglobin A1c % Iron 20 L TIBC 459 H Iron Saturation 4 L Ferritin Albumin Triglycerides Cholesterol Total LDL Cholesterol HDL Cholesterol Carcinoembryonic Ag 30.7 H TSH 3.42 02/18/19 07:00 Hemoglobin A1c % Iron TIBC Iron Saturation Ferritin Albumin 2.8 L Triglycerides Cholesterol Total LDL Cholesterol HDL Cholesterol Carcinoembryonic Ag TSH ASSESSMENT AND PLAN: Patient is a 83yo female with PMhx of A fib on eliquis s/p cardioversion, DM, HTN, hyperthyroidism , patient was seen in GI clinic today by Dr. Rangel with abdominal pain , generalized weakness and was found to have severe worsening anemia with microcytosis. was send to Ed. for further care. # Acute symptomatic microcytic anemia due to Iron deficiency anemia and colon mass : s/p EGD and colonoscopy ,completed, surgery consult appreciated , keep hgb > 7, will start on iron supplement. will continue to hold eliquis since patient is having bleeding possible at the site of tumor, Surgical consult and cardio. consult appreciated . CEA level is elevated. #Hx of A fib rate is controlled , Eliquis on hold due to GI bleed, on Toprol xl 25mg will continue . # Acute over chronic diastolic CHF: BNP of 16K, s/p lasix iv post transfusion. #HTN: continue home meds. #T2DM , sliding scale with coverage #asthma: nebs prn Dvt px: SCds, hold eliquis GI Px: Protonix
--- NOTE | 2019-02-18 14:47 | CONSULT ---
Consult Consult Specialty:: Endocrinology Referred by:: Jazzmine See MD Reason for Consultation:: Hyperthyroidism - History of Present Illness Chief Complaint: Weakness History of Present Illness: This patient is an 84 year old female with history of Parkinson's disease, AFIB (on Eliquis), HTN, hyperthyroidism, recurrent UTI, borderline diabetes, recent cardiac ablation (6 months ago), and prior stroke who presents to the Emergency Department with c/o weakness and progressive drop in hemoglobin. Pt was treated with blood tranfusion. Colonoscopy showed a colonic mass which was biopsied. CT Abd Pelvis essentilly WNL. Pt referred for management of Hyperthyroidism which has been under control on Methimazole 5mg daily. - History Source History Provided By: Family Member, Medical Record - Past Medical History INSULATION BLOWER: Yes: Parkinson's Cardio/Vascular: Yes: AFIB, HTN Pulmonary: Yes: Asthma Endocrine: Yes: Hyperthyroidism Additional Medical History: Glaucoma - Past Surgical History Past Surgical History: Yes: Hysterectomy - Alcohol/Substance Use Hx Alcohol Use: No - Smoking History Smoking history: Never smoked Have you smoked in the past 12 months: No Aproximately how many cigarettes per day: 0 Home Medications - Allergies Allergies/Adverse Reactions: Allergies Allergy/AdvReac Type Severity Reaction Status Date / Time No Known Allergies Allergy Verified 02/14/19 10:37 - Home Medications Home Medications: Ambulatory Orders Bimatoprost [Lumigan] 1 drop OU DAILY 04/09/17 Apixaban [Eliquis -] 5 mg PO BID #60 tab 04/13/17 Brimonidine Tartrate/Timolol [Combigan 0.2%-0.5% Eye Drops] 5 ml OU BID Metoprolol Succinate [Toprol Xl] 25 mg PO DAILY 02/17/18 Latanoprost 0.005% Eye Drops [Xalatan 0.005% Eye Drops -] 1 drop HS 02/14/19 Losartan Potassium 50 mg PO BID 02/14/19 Methimazole 5 mg PO TID 02/14/19 Review of Systems - Review of Systems Constitutional: reports: Malaise, Weakness Eyes: reports: No Symptoms HENT: reports: No Symptoms Neck: reports: No Symptoms Cardiovascular: reports: No Symptoms Respiratory: reports: No Symptoms Gastrointestinal: reports: Rectal Bleeding Genitourinary: reports: No Symptoms Musculoskeletal: reports: No Symptoms Neurological: reports: Tremors Endocrine: reports: No Symptoms Physical Exam Vital Signs: Vital Signs Temperature 98.3 F 02/18/19 12:00 Pulse Rate 78 02/18/19 12:00 Respiratory Rate 20 02/18/19 12:00 Blood Pressure 123/60 02/18/19 12:00 O2 Sat by Pulse Oximetry (%) 97 02/18/19 09:00 Constitutional: Yes: No Distress, Calm Eyes: Yes: Conjunctiva Clear, EOM Intact HENT: Yes: Atraumatic, Normocephalic, Other (Involuntary movement of head) Neck: Yes: Supple, Trachea Midline Cardiovascular: Yes: Regular Rate and Rhythm Respiratory: Yes: Regular, CTA Bilaterally Gastrointestinal: Yes: Normal Bowel Sounds, Soft Musculoskeletal: Yes: WNL Extremities: Yes: Other (Tremor of hands) Edema: No Neurological: Yes: Alert, Oriented Labs: CBC, BMP 02/18/19 07:00 02/18/19 07:00 Problem List - Problems (1) Colonic mass Code(s): K63.9 - DISEASE OF INTESTINE, UNSPECIFIED (2) Microcytic anemia Code(s): D50.9 - IRON DEFICIENCY ANEMIA, UNSPECIFIED (3) Parkinsonian syndrome Code(s): G20 - PARKINSON'S DISEASE Qualifiers: Parkinsonism type: unspecified Qualified Code(s): G20 - Parkinson's disease (4) Atrial fibrillation Code(s): I48.91 - UNSPECIFIED ATRIAL FIBRILLATION Qualifiers: Atrial fibrillation type: persistent Qualified Code(s): I48.1 - Persistent atrial fibrillation (5) Hyperthyroidism Code(s): E05.90 - THYROTOXICOSIS, UNSP WITHOUT THYROTOXIC CRISIS OR STORM Assessment/Plan AP; Hyperthyroidism Colonic mass: For hemicolectomy Anemia Parkinson's disease A Fib: Currently pulse regular Check FT4 and FT3, TSH. FT4 was 1.11 on 12.22.18 Will restart Methimazole 5mg daily unless pt is shown to be chemically hypothyroid on TFT results
[2019-02-19 07:33] LABS: BASO % 1.6 % (0-2.0); EOS % 4.7 % (0-4.5); HEMATOCRIT 28.7 % (32.4-45.2); HEMOGLOBIN 8.7 GM/dL (10.7-15.3); LYMPH % 27.5 % (8-40); MCHC 30.4 g/dl (32.0-36.0); MEAN CELL VOLUME 72.5 fl (80-96); MEAN PLT VOLUME 7.4 fl (7.5-11.1); MONO % 15.8 % (3.8-10.2); NEUT % 50.4 % (42.8-82.8); PLATELET COUNT 310 K/MM3 (134-434); RBC 3.96 M/mm3 (3.60-5.2); WHITE BLOOD COUNT 4.8 K/mm3 (4.0-10.0)
[2019-02-19 08:07] LABS: ALBUMIN 2.9 g/dl (3.4-5.0); ALK PHOS 82 U/L (45-117); ANION GAP 6 MMOL/L (8-16); BILIRUBIN,TOTAL 0.3 mg/dL (0.2-1); BLOOD UREA NITROGEN 8 mg/dL (7-18); CHLORIDE 107 mmol/L (98-107); CO2 27 mmol/L (21-32); CREATININE 0.7 mg/dL (0.55-1.3); GLUCOSE,RANDOM 85 mg/dL (74-106); SGOT/AST 17 U/L (15-37); SGPT/ALT 14 U/L (13-61); SODIUM 141 mmol/L (136-145); TOT PROT 5.8 g/dl (6.4-8.2)
[2019-02-19] MEDS: ASCORBIC ACID 500 MG TABLET (FP) PO SCH (09:57)
[2019-02-19] MEDS: FUROSEMIDE 40 MG/4 ML INJECTABLE VIAL IVPUSH SCH (09:57)
[2019-02-19] MEDS: FERROUS SO4 325 MG TABLET (FP) PO SCH (09:57)
--- NOTE | 2019-02-19 10:01 | SPA.PREOP ---
- PRE-OP NOTE Dx: Sigmoid colon neoplasm Planned Procedure: Open sigmoid colon resection Surgeon: John Alvarado Last Vital Signs Temp Pulse Resp BP Pulse Ox 98.7 F 81 20 108/73 98 02/19/19 06:00 02/19/19 06:00 02/18/19 21:00 02/19/19 06:00 02/18/19 21:00 Lab Results WBC 4.8 K/mm3 (4.0-10.0) 02/19/19 07:00 RBC 3.96 M/mm3 (3.60-5.2) 02/19/19 07:00 Hgb 8.7 GM/dL (10.7-15.3) L 02/19/19 07:00 Hct 28.7 % (32.4-45.2) L 02/19/19 07:00 MCV 72.5 fl (80-96) L 02/19/19 07:00 MCHC 30.4 g/dl (32.0-36.0) L 02/19/19 07:00 RDW 26.0 % (11.6-15.6) H 02/19/19 07:00 Plt Count 310 K/MM3 (134-434) 02/19/19 07:00 Sodium 141 mmol/L (136-145) 02/19/19 07:00 Potassium 4.0 mmol/L (3.5-5.1) 02/19/19 07:00 Chloride 107 mmol/L (98-107) 02/19/19 07:00 Carbon Dioxide 27 mmol/L (21-32) 02/19/19 07:00 Anion Gap 6 MMOL/L (8-16) L 02/19/19 07:00 BUN 8 mg/dL (7-18) 02/19/19 07:00 Creatinine 0.7 mg/dL (0.55-1.3) 02/19/19 07:00 Random Glucose 85 mg/dL (74-106) 02/19/19 07:00 Calcium 8.0 mg/dL (8.5-10.1) L 02/19/19 07:00 Blood Type O POSITIVE 02/14/19 13:27 Antibody Screen Negative 02/14/19 12:18 INR 1.38 (0.83-1.09) H 02/14/19 12:18 - ASSESSMENT/PLAN 1. NPO after midnight except po meds 2. GI/DVT PPX 3. Medical optimization / clearance 4. Type and Screen 5. Cardiac optimization / clearance 5. Consent to be obtained by surgeon after risks, benefits and alternatives discussed with patient and or Health Care Proxy. Problem List - Problems (1) Colonic mass Code(s): K63.9 - DISEASE OF INTESTINE, UNSPECIFIED (2) Microcytic anemia Code(s): D50.9 - IRON DEFICIENCY ANEMIA, UNSPECIFIED (3) Asthma Code(s): J45.909 - UNSPECIFIED ASTHMA, UNCOMPLICATED Qualifiers: Asthma severity: mild Asthma persistence: intermittent Asthma complication type: unspecified Qualified Code(s): J45.20 - Mild intermittent asthma, uncomplicated (4) Atrial fibrillation Code(s): I48.91 - UNSPECIFIED ATRIAL FIBRILLATION Qualifiers: Atrial fibrillation type: persistent Qualified Code(s): I48.1 - Persistent atrial fibrillation (5) CAD (coronary artery disease) Code(s): I25.10 - ATHSCL HEART DISEASE OF [place] CORONARY ARTERY W/O ANG PCTRS Qualifiers: Coronary Disease-Associated Artery/Lesion type: [place] artery [place] vs. transplanted heart: [place] heart Associated angina: without angina Qualified Code(s): I25.10 - Atherosclerotic heart disease of [place] coronary artery without angina pectoris Visit type - Case Type Case Type: ED Admission - New patient This patient is new to me today: Yes Date on this admission: 02/19/19
--- NOTE | 2019-02-19 11:17 | PN ---
Progress Note, Physician History of Present Illness: Hgb stable post transfusion, denies active hematochezia. - Current Medication List Current Medications: Active Medications Acetaminophen (Tylenol -) 650 mg PO Q6H PRN PRN Reason: Fever Or Pain Last Admin: 02/16/19 19:45 Dose: 650 mg Alvimopan (Entereg Capsule (Restricted) -) 12 mg PO ONCE ONE Stop: 02/20/19 07:01 Ascorbic Acid (Vitamin C -) 500 mg PO DAILY [facility] Last Admin: 02/19/19 09:57 Dose: 500 mg Ferrous Sulfate (Feosol -) 325 mg PO DAILY [facility] Last Admin: 02/19/19 09:57 Dose: 325 mg Furosemide (Lasix Injection -) 20 mg IVPUSH DAILY [facility] Last Admin: 02/19/19 09:57 Dose: 20 mg Metoprolol Succinate (Toprol Xl -) 50 mg PO DAILY [facility] Last Admin: 02/19/19 09:57 Dose: 50 mg - Objective Vital Signs: Vital Signs Temperature 98.6 F 02/19/19 10:00 Pulse Rate 88 02/19/19 10:00 Respiratory Rate 20 02/19/19 10:00 Blood Pressure 121/57 L 02/19/19 10:00 O2 Sat by Pulse Oximetry (%) 98 02/18/19 21:00 Constitutional: Yes: No Distress, Calm, Thin Neck: Yes: Supple Cardiovascular: Yes: Pulse Irregular Respiratory: Yes: Regular, Diminished Gastrointestinal: Yes: Soft, Hypoactive Bowel Sounds Edema: No Labs: CBC, BMP 02/19/19 07:00 02/19/19 07:00 INR, PTT INR 1.38 (0.83-1.09) H 02/14/19 12:18 Problem List - Problems (1) Microcytic anemia Code(s): D50.9 - IRON DEFICIENCY ANEMIA, UNSPECIFIED (2) Atrial fibrillation Code(s): I48.91 - UNSPECIFIED ATRIAL FIBRILLATION Qualifiers: Atrial fibrillation type: persistent Qualified Code(s): I48.1 - Persistent atrial fibrillation (3) CAD (coronary artery disease) Code(s): I25.10 - ATHSCL HEART DISEASE OF [place] CORONARY ARTERY W/O ANG PCTRS Qualifiers: Coronary Disease-Associated Artery/Lesion type: [place] artery [place] vs. transplanted heart: [place] heart Associated angina: without angina Qualified Code(s): I25.10 - Atherosclerotic heart disease of [place] coronary artery without angina pectoris (4) CVA (cerebral vascular accident) Code(s): I63.9 - CEREBRAL INFARCTION, UNSPECIFIED Qualifiers: CVA mechanism: unspecified Qualified Code(s): I63.9 - Cerebral infarction, unspecified (5) HTN (hypertension) Code(s): I10 - ESSENTIAL (PRIMARY) HYPERTENSION Qualifiers: Hypertension type: essential hypertension Qualified Code(s): I10 - Essential (primary) hypertension (6) Hyperthyroidism Code(s): E05.90 - THYROTOXICOSIS, UNSP WITHOUT THYROTOXIC CRISIS OR STORM (7) Parkinson disease Code(s): G20 - PARKINSON'S DISEASE (8) Weakness Code(s): R53.1 - WEAKNESS (9) Colonic mass Code(s): K63.9 - DISEASE OF INTESTINE, UNSPECIFIED Assessment/Plan 02/04/2018 Echo: Normal LV systolic function, mild LVH, mildly dilated ascending thoacic aprta, tr MR, tr TR and trace pericardial effusion DON: Normal LV size and fxnmild MR, TR, mod AR, tr-mild [place] 1. Microcytic anemia, hematochezia referable to sigmoid colon neoplasm plan for open sigmoid colectomy 2. Coronary artery disease angina pectoris 3. Diastolic left ventricular dysfunction with chronic class I [place] [employer] classification left ventricular failure compensated euvolemic 4. Paroxysmal atrial fibrillation [id number] of 6, currently in sinus rhythm off NOAC's, previous DCCV 5. HTN/HCVD 6. Diabetes mellitus 7. Parkinson's disease 8. Hyperthyroidism 9. History of reactive airway disease/bronchial asthma 10. History of gastro-esophageal reflux disease PLAN: 1. Given absence of symptoms of acute coronary syndrome, decompensated CHF or malignant arrhythmia, may proceed with colectomy from CV-standpoint without further testing, f/u ECG, chest CT 2. Continue Toprol XL 50 qd, and resume losartan as hemodynamics tolerate. Eliquis held due to hematochezia and need for surgery with resumption once post- op hemostasis has been achieved 3. Monitor CBC post transfusion to maintain Hgb > 8.0
--- NOTE | 2019-02-19 12:34 | EKG ---
Test Reason : Blood Pressure : / mmHG Vent. Rate : 086 BPM Atrial Rate : 093 BPM P-R Int : 000 ms QRS Dur : 154 ms QT Int : 426 ms P-R-T Axes : 000 -44 011 degrees QTc Int : 509 ms ATRIAL FIBRILLATION LEFT AXIS DEVIATION RIGHT BUNDLE BRANCH BLOCK ABNORMAL ECG WHEN COMPARED WITH ECG OF 17-FEB-2018 12:20, ATRIAL FIBRILLATION HAS REPLACED SINUS RHYTHM T WAVE VARIATION Confirmed by MARK GRAMAJO, ANTOINE ([id number]) on 02/19/2019 12:34:22 PM Referred By: JAY WHITFIELD Confirmed By:ANTOINE FLORES MD
--- NOTE | 2019-02-19 13:22 | PN ---
Physical Exam: SUBJECTIVE: Patient seen and examined at bedside- no acute events overnight; patient is still having blood bowel movements and is still having slight abdominal pains ; however she denies any CP/SOB/N/V fevers or chills OBJECTIVE: Vital Signs Period Temp Pulse Resp BP Sys/Ugarte Pulse Ox Last 24 Hr 97.5 F-99.5 F 80-92 19-20 108-121/57-73 98 GENERAL: The patient is awake, alert, and fully oriented, in no acute distress. EYES: PEERLA: EOMI: no scleral icterus NECK: no JVD: no lymphadenopathy LUNGS: CTA B/L; no rales, rhonchi or wheezing HEART: Regular rate and rhythm, S1, S2 without murmur, rub or gallop. ABDOMEN: Soft, slight tenderness upon palpation; +BS in all 4 quadrants . EXTREMITIES: 2+ pulses, warm, well-perfused, no edema. PSYCH: Normal mood, normal affect. SKIN: Warm, dry, normal turgor, no rashes or lesions noted Laboratory Results - last 24 hr 02/18/19 02/18/19 02/19/19 07:00 17:34 06:20 WBC RBC Hgb Hct MCV MCH MCHC RDW Plt Count MPV Absolute Neuts (auto) Neutrophils % Lymphocytes % Monocytes % Eosinophils % Basophils % Nucleated RBC % Hypochromia 2+ Platelet Estimate Normal Polychromasia 1+ Poikilocytosis 1+ Anisocytosis 2+ Microcytosis 1+ Macrocytosis 0 Spherocytes 1+ Target Cells 1+ Ovalocytes 1+ Sodium Potassium Chloride Carbon Dioxide Anion Gap BUN Creatinine Creat Clearance w eGFR POC Glucometer 116 95 Random Glucose Calcium Total Bilirubin AST ALT Alkaline Phosphatase Total Protein Albumin TSH Free T4 02/19/19 02/19/19 02/19/19 07:00 07:00 07:00 WBC 4.8 RBC 3.96 Hgb 8.7 L Hct 28.7 L MCV 72.5 L MCH 22.0 L MCHC 30.4 L RDW 26.0 H Plt Count 310 MPV 7.4 L Absolute Neuts (auto) 2.4 Neutrophils % 50.4 Lymphocytes % 27.5 Monocytes % 15.8 H Eosinophils % 4.7 H Basophils % 1.6 Nucleated RBC % 0 Hypochromia Platelet Estimate Polychromasia Poikilocytosis Anisocytosis Microcytosis Macrocytosis Spherocytes Target Cells Ovalocytes Sodium 141 Potassium 4.0 Chloride 107 Carbon Dioxide 27 Anion Gap 6 L BUN 8 Creatinine 0.7 Creat Clearance w eGFR 80.11 POC Glucometer Random Glucose 85 Calcium 8.0 L Total Bilirubin 0.3 AST 17 ALT 14 Alkaline Phosphatase 82 Total Protein 5.8 L Albumin 2.9 L TSH 3.99 H Free T4 1.15 Active Medications Generic Name Dose Route Start Last Admin Trade Name Freq PRN Reason Stop Dose Admin Acetaminophen 650 mg 02/15/19 09:14 02/16/19 19:45 Tylenol - PO 650 mg Q6H PRN Administration Fever Or Pain Alvimopan 12 mg 02/20/19 07:00 Entereg Capsule (Restricted) - PO 02/20/19 07:01 ONCE ONE Ascorbic Acid 500 mg 02/16/19 10:00 02/19/19 09:57 Vitamin C - PO 500 mg DAILY [facility] Administration Ferrous Sulfate 325 mg 02/16/19 10:00 02/19/19 09:57 Feosol - PO 325 mg DAILY [facility] Administration Furosemide 20 mg 02/15/19 10:00 02/19/19 09:57 Lasix Injection - IVPUSH 20 mg DAILY [facility] Administration Metoprolol Succinate 50 mg 02/16/19 09:07 02/19/19 09:57 Toprol Xl - PO 50 mg DAILY [facility] Administration ASSESSMENT/PLAN: 83 y/o female with PMH of A fib on eliquis, DM, HTN, hyperthyroidism, who presented to the ED with worsening abdominal pain, weakness, anemia found to have a colonic mass #Colonic mass patient found to have a near obstruction descending colonic mass -pt going for surgery tomorrow for partial coelectomy -heme/onc on board -initial CEA elevated -cleared by cardio -f/u CT chest -NPO after midnight for surgery #Microcytic Anemia likely 2/2 colonic mass monitor Hgb tranfuse if Hgb <8 since patient is cardiac patient #Afib holding patient eliquis in light of bleeding c/w toprol 50 daily #HTN c/w toprol 50 daily #CHF stable for now c/w lasix 20 daily #Hyperthyroidism dr. shelley consulted holding patients methimazole for now F/E/N' not on fluids monitor electrolytes NPO after midnihgt Problem List - Problems (1) Microcytic anemia Code(s): D50.9 - IRON DEFICIENCY ANEMIA, UNSPECIFIED (2) Atrial fibrillation Code(s): I48.91 - UNSPECIFIED ATRIAL FIBRILLATION Qualifiers: Atrial fibrillation type: persistent Qualified Code(s): I48.1 - Persistent atrial fibrillation (3) CAD (coronary artery disease) Code(s): I25.10 - ATHSCL HEART DISEASE OF [place] CORONARY ARTERY W/O ANG PCTRS Qualifiers: Coronary Disease-Associated Artery/Lesion type: [place] artery [place] vs. transplanted heart: [place] heart Associated angina: without angina Qualified Code(s): I25.10 - Atherosclerotic heart disease of [place] coronary artery without angina pectoris (4) CHF (congestive heart failure) Code(s): I50.9 - HEART FAILURE, UNSPECIFIED Visit type - Emergency Visit Emergency Visit: Yes ED Registration Date: 02/15/19 Care time: The patient presented to the Emergency Department on the above date and was hospitalized for further evaluation of their emergent condition. - New Patient This patient is new to me today: No - Critical Care Critical Care patient: No
--- NOTE | 2019-02-19 14:53 | PN ---
Progress Note (short form) - Note Progress Note: Denies any complaints For surgery tomorrow Vital Signs Period Temp Pulse Resp BP Sys/Ugarte Pulse Ox Last 24 Hr 97.5 F-99.5 F 80-92 19-20 108-121/57-73 98 PE: AOx3 Neck: Supple, No JVD HEENT: EOMI, involuntary movement of head Lungs: CTA CVS: S1S2 Abd: Benign Ext: No edema, tremors of hands CMP Sodium 141 mmol/L (136-145) 02/19/19 07:00 Potassium 4.0 mmol/L (3.5-5.1) 02/19/19 07:00 Chloride 107 mmol/L (98-107) 02/19/19 07:00 Carbon Dioxide 27 mmol/L (21-32) 02/19/19 07:00 Anion Gap 6 MMOL/L (8-16) L 02/19/19 07:00 BUN 8 mg/dL (7-18) 02/19/19 07:00 Creatinine 0.7 mg/dL (0.55-1.3) 02/19/19 07:00 Creat Clearance w eGFR 80.11 (>60) 02/19/19 07:00 POC Glucometer 95 UNITS (80-120) 02/19/19 06:20 Random Glucose 85 mg/dL (74-106) 02/19/19 07:00 Calcium 8.0 mg/dL (8.5-10.1) L 02/19/19 07:00 Phosphorus 4.0 mg/dL (2.5-4.9) 02/18/19 07:00 Magnesium 2.5 mg/dL (1.8-2.4) H 02/18/19 07:00 Iron 20 ug/dL (27-139) L 02/14/19 19:05 TIBC 459 ug/dL (250-450) H 02/14/19 19:05 Iron Saturation 4 % (15-55) L 02/14/19 19:05 Ferritin 3.5 ng/ml (8-388) L 02/14/19 08:30 Total Bilirubin 0.3 mg/dL (0.2-1) 02/19/19 07:00 AST 17 U/L (15-37) 02/19/19 07:00 ALT 14 U/L (13-61) 02/19/19 07:00 Alkaline Phosphatase 82 U/L (45-117) 02/19/19 07:00 LD Total 183 U/L (84-246) 02/14/19 19:05 Troponin I 0.02 ng/ml (0.00-0.05) 02/14/19 12:18 B-Natriuretic Peptide 1625.8 pg/ml (5-450) H 02/14/19 11:46 Total Protein 5.8 g/dl (6.4-8.2) L 02/19/19 07:00 Albumin 2.9 g/dl (3.4-5.0) L 02/19/19 07:00 Carcinoembryonic Ag 30.7 ng/mL (0.0-4.7) H 02/16/19 06:00 TSH 3.99 uIU/ml (0.358-3.74) H 02/19/19 07:00 Free T4 1.15 ng/dl (0.76-1.46) 02/19/19 07:00 Current Medications Generic Name Dose Route Start Last Admin Trade Name Arnelq PRN Reason Stop Dose Admin Acetaminophen 650 mg 02/15/19 09:14 02/16/19 19:45 Tylenol - PO 650 mg Q6H PRN Administration Fever Or Pain Alvimopan 12 mg 02/20/19 07:00 Entereg Capsule (Restricted) - PO 02/20/19 07:01 ONCE ONE Ascorbic Acid 500 mg 02/16/19 10:00 02/19/19 09:57 Vitamin C - PO 500 mg DAILY [facility] Administration Ferrous Sulfate 325 mg 02/16/19 10:00 02/19/19 09:57 Feosol - PO 325 mg DAILY [facility] Administration Furosemide 20 mg 02/15/19 10:00 02/19/19 09:57 Lasix Injection - IVPUSH 20 mg DAILY [facility] Administration Metoprolol Succinate 50 mg 02/16/19 09:07 02/19/19 09:57 Toprol Xl - PO 50 mg DAILY [facility] Administration AP; Hyperthyroidism Colonic mass: For hemicolectomy IGT Anemia Parkinson's disease A Fib: Currently pulse regular FT4 1.15 FT3 pending TSH 3.99, FT4 was 1.11 on 12.22.18 Restart Methimazole 5mg daily Problem List - Problems (1) Colonic mass Code(s): K63.9 - DISEASE OF INTESTINE, UNSPECIFIED (2) Microcytic anemia Code(s): D50.9 - IRON DEFICIENCY ANEMIA, UNSPECIFIED (3) Parkinsonian syndrome Code(s): G20 - PARKINSON'S DISEASE Qualifiers: Parkinsonism type: unspecified Qualified Code(s): G20 - Parkinson's disease (4) Atrial fibrillation Code(s): I48.91 - UNSPECIFIED ATRIAL FIBRILLATION Qualifiers: Atrial fibrillation type: persistent Qualified Code(s): I48.1 - Persistent atrial fibrillation (5) Hyperthyroidism Code(s): E05.90 - THYROTOXICOSIS, UNSP WITHOUT THYROTOXIC CRISIS OR STORM
--- NOTE | 2019-02-19 16:29 | CONSULT ---
Consultation: REQUESTING PROVIDER: CONSULT REQUEST: We have been asked to medically evaluate this patient for ( specify). HISTORY OF PRESENT ILLNESS: REVIEW OF SYSTEMS: CONSTITUTIONAL: Absent: fever, chills, diaphoresis, generalized weakness, malaise, loss of appetite, weight change HEENT: Absent: rhinorrhea, nasal congestion, throat pain, throat swelling, difficulty swallowing, mouth swelling, ear pain, eye pain, visual changes CARDIOVASCULAR: Absent: chest pain, syncope, palpitations, irregular heart rate, lightheadedness , peripheral edema RESPIRATORY: Absent: cough, shortness of breath, dyspnea with exertion, orthopnea, wheezing, stridor, hemoptysis GASTROINTESTINAL: Absent: abdominal pain, abdominal distension, nausea, vomiting, diarrhea, constipation, melena, hematochezia GENITOURINARY: Absent: dysuria, frequency, urgency, hesitancy, hematuria, flank pain, genital pain MUSCULOSKELETAL: Absent: myalgia, arthralgia, joint swelling, back pain, neck pain SKIN: Absent: rash, itching, pallor HEMATOLOGIC/IMMUNOLOGIC: Absent: easy bleeding, easy bruising, lymphadenopathy, frequent infections ENDOCRINE: Absent: unexplained weight gain, unexplained weight loss, heat intolerance, cold intolerance NEUROLOGIC: Absent: headache, focal weakness or paresthesias, dizziness, unsteady gait, seizure, mental status changes, bladder or bowel incontinence PSYCHIATRIC: Absent: anxiety, depression, suicidal or homicidal ideation, hallucinations. PHYSICAL EXAMINATION Vital Signs - 24 hr 02/18/19 02/18/19 02/19/19 19:00 21:00 06:00 Temperature 99.5 F 98.7 F Pulse Rate 92 H 81 Respiratory 19 20 Rate Blood Pressure 121/71 108/73 O2 Sat by Pulse 98 Oximetry (%) 02/19/19 02/19/19 10:00 15:52 Temperature 98.6 F 99.1 F Pulse Rate 88 69 Respiratory 20 20 Rate Blood Pressure 121/57 L 101/55 L O2 Sat by Pulse Oximetry (%) GENERAL: Awake, alert, and fully oriented, in no acute distress. HEAD: Normal with no signs of trauma. EYES: Pupils equal, round and reactive to light, extraocular movements intact, sclera anicteric, conjunctiva clear. No lid lag. EARS, NOSE, THROAT: Ears normal, nares patent, oropharynx clear without exudates. Moist mucous membranes. NECK: Normal range of motion, supple without lymphadenopathy, JVD, or masses. LUNGS: Breath sounds equal, clear to auscultation bilaterally. No wheezes, and no crackles. No accessory muscle use. HEART: Regular rate and rhythm, normal S1 and S2 without murmur, rub or gallop. ABDOMEN: Soft, nontender, not distended, normoactive bowel sounds, no guarding, no rebound, no masses. No hepatomegaly or splenomegaly. MUSCULOSKELETAL: Normal range of motion at all joints. No bony deformities or tenderness. No CVA tenderness. UPPER EXTREMITIES: 2+ pulses, warm, well-perfused. No cyanosis. No clubbing. Cap refill <2 seconds. No peripheral edema. LOWER EXTREMITIES: 2+ pulses, warm, well-perfused. No calf tenderness. No peripheral edema. NEUROLOGICAL: Cranial nerves II-XII intact. Normal speech. Normal gait. PSYCHIATRIC: Cooperative. Good eye contact. Appropriate mood and affect. SKIN: Warm, dry, normal turgor, no rashes or lesions noted. Laboratory Results - last 24 hr 02/18/19 02/19/19 02/19/19 17:34 06:20 07:00 WBC 4.8 RBC 3.96 Hgb 8.7 L Hct 28.7 L MCV 72.5 L MCH 22.0 L MCHC 30.4 L RDW 26.0 H Plt Count 310 MPV 7.4 L Absolute Neuts (auto) 2.4 Neutrophils % 50.4 Lymphocytes % 27.5 Monocytes % 15.8 H Eosinophils % 4.7 H Basophils % 1.6 Nucleated RBC % 0 Sodium Potassium Chloride Carbon Dioxide Anion Gap BUN Creatinine Creat Clearance w eGFR POC Glucometer 116 95 Random Glucose Calcium Total Bilirubin AST ALT Alkaline Phosphatase Total Protein Albumin TSH Free T4 02/19/19 02/19/19 07:00 07:00 WBC RBC Hgb Hct MCV MCH MCHC RDW Plt Count MPV Absolute Neuts (auto) Neutrophils % Lymphocytes % Monocytes % Eosinophils % Basophils % Nucleated RBC % Sodium 141 Potassium 4.0 Chloride 107 Carbon Dioxide 27 Anion Gap 6 L BUN 8 Creatinine 0.7 Creat Clearance w eGFR 80.11 POC Glucometer Random Glucose 85 Calcium 8.0 L Total Bilirubin 0.3 AST 17 ALT 14 Alkaline Phosphatase 82 Total Protein 5.8 L Albumin 2.9 L TSH 3.99 H Free T4 1.15 Active Medications Generic Name Dose Route Start Last Admin Trade Name Freq PRN Reason Stop Dose Admin Acetaminophen 650 mg 02/15/19 09:14 02/16/19 19:45 Tylenol - PO 650 mg Q6H PRN Administration Fever Or Pain Alvimopan 12 mg 02/20/19 07:00 Entereg Capsule (Restricted) - PO 02/20/19 07:01 ONCE ONE Ascorbic Acid 500 mg 02/16/19 10:00 02/19/19 09:57 Vitamin C - PO 500 mg DAILY [facility] Administration Ferrous Sulfate 325 mg 02/16/19 10:00 02/19/19 09:57 Feosol - PO 325 mg DAILY [facility] Administration Furosemide 20 mg 02/15/19 10:00 02/19/19 09:57 Lasix Injection - IVPUSH 20 mg DAILY [facility] Administration Metoprolol Succinate 50 mg 02/16/19 09:07 02/19/19 09:57 Toprol Xl - PO 50 mg DAILY [facility] Administration ASSESSMENT/PLAN: Dispo: We will continue to follow the patient. Thank you for this consultative opportunity.
--- NOTE | 2019-02-19 16:45 | PN ---
Physical Exam: SUBJECTIVE: Patient seen and examined at bedside. Patient reports 10 pound weight loss in 2 weeks, constipation, and diffuse abdominal discomfort. Spoke to family - family does not want patient to know she has a mass, although patient appears A&O x3 and is able to make medical decisions. OBJECTIVE: Vital Signs Period Temp Pulse Resp BP Sys/Ugarte Pulse Ox Last 24 Hr 98.6 F-99.5 F 69-92 19-20 101-121/55-73 98 GENERAL: A&Ox3 NECK: Trachea midline, full range of motion, supple. No Lymphadenopathy LUNGS: CTA BREAST: refused exam HEART: RRR, no murmurs ABDOMEN: Distended but soft, mildly tender to palpation diffusely, tympanitic to percussion EXTREMITIES: 2+ pulses, warm, well-perfused, no edema. NEUROLOGICAL: Cranial nerves II through XII grossly intact. Normal speech PSYCH: Normal mood, normal affect. SKIN: Warm, dry, normal turgor, no rashes or lesions noted Laboratory Results - last 24 hr 02/18/19 02/19/19 02/19/19 17:34 06:20 07:00 WBC 4.8 RBC 3.96 Hgb 8.7 L Hct 28.7 L MCV 72.5 L MCH 22.0 L MCHC 30.4 L RDW 26.0 H Plt Count 310 MPV 7.4 L Absolute Neuts (auto) 2.4 Neutrophils % 50.4 Lymphocytes % 27.5 Monocytes % 15.8 H Eosinophils % 4.7 H Basophils % 1.6 Nucleated RBC % 0 Sodium Potassium Chloride Carbon Dioxide Anion Gap BUN Creatinine Creat Clearance w eGFR POC Glucometer 116 95 Random Glucose Calcium Total Bilirubin AST ALT Alkaline Phosphatase Total Protein Albumin TSH Free T4 02/19/19 02/19/19 07:00 07:00 WBC RBC Hgb Hct MCV MCH MCHC RDW Plt Count MPV Absolute Neuts (auto) Neutrophils % Lymphocytes % Monocytes % Eosinophils % Basophils % Nucleated RBC % Sodium 141 Potassium 4.0 Chloride 107 Carbon Dioxide 27 Anion Gap 6 L BUN 8 Creatinine 0.7 Creat Clearance w eGFR 80.11 POC Glucometer Random Glucose 85 Calcium 8.0 L Total Bilirubin 0.3 AST 17 ALT 14 Alkaline Phosphatase 82 Total Protein 5.8 L Albumin 2.9 L TSH 3.99 H Free T4 1.15 Active Medications Generic Name Dose Route Start Last Admin Trade Name Freq PRN Reason Stop Dose Admin Acetaminophen 650 mg 02/15/19 09:14 02/16/19 19:45 Tylenol - PO 650 mg Q6H PRN Administration Fever Or Pain Alvimopan 12 mg 02/20/19 07:00 Entereg Capsule (Restricted) - PO 02/20/19 07:01 ONCE ONE Ascorbic Acid 500 mg 02/16/19 10:00 02/19/19 09:57 Vitamin C - PO 500 mg DAILY [facility] Administration Ferrous Sulfate 325 mg 02/16/19 10:00 02/19/19 09:57 Feosol - PO 325 mg DAILY [facility] Administration Furosemide 20 mg 02/15/19 10:00 02/19/19 09:57 Lasix Injection - IVPUSH 20 mg DAILY [facility] Administration Metoprolol Succinate 50 mg 02/16/19 09:07 02/19/19 09:57 Toprol Xl - PO 50 mg DAILY [facility] Administration ASSESSMENT/PLAN: 83yo female with a past medical history of atrial fibrillation on eliquis s/p cardioversion, DM, HTN, hyperthyroidism and is admitted for the treatment of colonic mass and anemia #Colonic Mass: Patient is going for colectomy today, will get pathology on mass to further evaluate treatment -complex family situation with family not wanting to inform patient, who is A& Ox3; will need discussion with family about telling patient her diagnosis -CEA 30 -chest CT read #Microcytic anemia: likely secondary to mass -transfuse to hgb goal of 7 -monitor H&H in AM #Abdominal Obstruction due to mass, will f/u after surgery Discussed with Dr. Lyle Visit type - Emergency Visit Emergency Visit: No - New Patient This patient is new to me today: Yes Date on this admission: 02/19/19 - Critical Care Critical Care patient: No
--- NOTE | 2019-02-19 18:26 | PN ---
Teaching Attending Note Name of Resident: Roxann Garza ATTENDING PHYSICIAN STATEMENT I saw and evaluated the patient. I reviewed the resident's note and discussed the case with the resident. I agree with the resident's findings and plan as documented. SUBJECTIVE: Patient is comfortable with no acute distress. going to OR in am. OBJECTIVE: Vital Signs Temperature 99.1 F 02/19/19 15:52 Pulse Rate 69 02/19/19 15:52 Respiratory Rate 20 02/19/19 15:52 Blood Pressure 101/55 L 02/19/19 15:52 O2 Sat by Pulse Oximetry (%) 98 02/18/19 21:00 GENERAL: The patient is more awake, in no acute distress. positive for essential tremor. HEAD: Normal with no signs of trauma. EYES: PERRL, extraocular movements intact, sclera anicteric, conjunctiva clear. ENT: Ears normal, oropharynx clear without exudates, moist mucous membranes. NECK: Trachea midline, full range of motion, supple. LUNGS: Breath sounds equal, CTA bilaterally, no wheezes, no crackles, no accessory muscle use. HEART: Regular rate and rhythm, S1, S2 positive without murmur, rub or gallop. ABDOMEN: Soft, large abdomen, ND, normoactive bowel sounds, no guarding, no rebound, no masses are appreciated. EXTREMITIES: 2+ pulses, warm, well-perfused, no edema. NEUROLOGICAL: Cranial nerves II through XII grossly intact. Normal speech, gait not observed. PSYCH: Normal mood, normal affect. SKIN: Warm, dry, normal turgor, no rashes or lesions noted CBCD WBC 4.8 K/mm3 (4.0-10.0) 02/19/19 07:00 RBC 3.96 M/mm3 (3.60-5.2) 02/19/19 07:00 Hgb 8.7 GM/dL (10.7-15.3) L 02/19/19 07:00 Hct 28.7 % (32.4-45.2) L 02/19/19 07:00 MCV 72.5 fl (80-96) L 02/19/19 07:00 MCHC 30.4 g/dl (32.0-36.0) L 02/19/19 07:00 RDW 26.0 % (11.6-15.6) H 02/19/19 07:00 Plt Count 310 K/MM3 (134-434) 02/19/19 07:00 MPV 7.4 fl (7.5-11.1) L 02/19/19 07:00 CMP Sodium 141 mmol/L (136-145) 02/19/19 07:00 Potassium 4.0 mmol/L (3.5-5.1) 02/19/19 07:00 Chloride 107 mmol/L (98-107) 02/19/19 07:00 Carbon Dioxide 27 mmol/L (21-32) 02/19/19 07:00 Anion Gap 6 MMOL/L (8-16) L 02/19/19 07:00 BUN 8 mg/dL (7-18) 02/19/19 07:00 Creatinine 0.7 mg/dL (0.55-1.3) 02/19/19 07:00 Creat Clearance w eGFR 80.11 (>60) 02/19/19 07:00 Random Glucose 85 mg/dL (74-106) 02/19/19 07:00 Calcium 8.0 mg/dL (8.5-10.1) L 02/19/19 07:00 Total Bilirubin 0.3 mg/dL (0.2-1) 02/19/19 07:00 AST 17 U/L (15-37) 02/19/19 07:00 ALT 14 U/L (13-61) 02/19/19 07:00 Alkaline Phosphatase 82 U/L (45-117) 02/19/19 07:00 Total Protein 5.8 g/dl (6.4-8.2) L 02/19/19 07:00 Albumin 2.9 g/dl (3.4-5.0) L 02/19/19 07:00 CARDIAC ENZYMES Troponin I 0.02 ng/ml (0.00-0.05) 02/14/19 12:18 Current Medications Generic Name Dose Route Start Last Admin Trade Name Freq PRN Reason Stop Dose Admin Acetaminophen 650 mg 02/15/19 09:14 02/16/19 19:45 Tylenol - PO 650 mg Q6H PRN Administration Fever Or Pain Alvimopan 12 mg 02/20/19 07:00 Entereg Capsule (Restricted) - PO 02/20/19 07:01 ONCE ONE Ascorbic Acid 500 mg 02/16/19 10:00 02/19/19 09:57 Vitamin C - PO 500 mg DAILY SRIKANTH Administration Ferrous Sulfate 325 mg 02/16/19 10:00 02/19/19 09:57 Feosol - PO 325 mg DAILY SRIKANTH Administration Furosemide 20 mg 02/15/19 10:00 02/19/19 09:57 Lasix Injection - IVPUSH 20 mg DAILY SRIKANTH Administration Metoprolol Succinate 50 mg 02/16/19 09:07 02/19/19 09:57 Toprol Xl - PO 50 mg DAILY SRIKANTH Administration Home Medications Medication Instructions Recorded Bimatoprost [Lumigan] 1 drop OU DAILY 04/09/17 Apixaban [Eliquis -] 5 mg PO BID #60 tab 04/13/17 Brimonidine Tartrate/Timolol 5 ml OU BID 02/17/18 [Combigan 0.2%-0.5% Eye Drops] Metoprolol Succinate [Toprol Xl] 25 mg PO DAILY 02/17/18 Latanoprost 0.005% Eye Drops 1 drop HS 02/14/19 [Xalatan 0.005% Eye Drops -] Losartan Potassium 50 mg PO BID 02/14/19 Methimazole 5 mg PO TID 02/14/19 ASSESSMENT AND PLAN: Patient is a 83yo female with PMhx of A fib on eliquis s/p cardioversion, DM, HTN, hyperthyroidism , patient was seen in GI clinic today by Dr. Rangel with abdominal pain , generalized weakness and was found to have severe worsening anemia with microcytosis. was send to Ed. for further care. # Acute symptomatic microcytic anemia due to Iron deficiency anemia and colon mass : s/p EGD and colonoscopy ,completed, surgery consult appreciated , Patient is going to OR in am, keep hgb > 7, continue to hold eliquis since patient is going for surgery, Surgical consult appreciated, NPO after midnight. CEA level is elevated. #Hx of A fib rate is controlled , continue to hold to Eliquis due to going to sx. on Toprol xl 25mg will continue . # Acute over chronic diastolic CHF: BNP of 16K, s/p lasix iv post transfusion. #HTN: continue home meds. #T2DM , sliding scale with coverage #asthma: nebs prn Dvt px: SCds, hold eliquis GI Px: Protonix NPO after midnight , going to or in am.
--- NOTE | 2019-02-19 22:53 | PN ---
Progress Note (short form) - Note Progress Note: patient seen and examined for hemicolectomy Last Vital Signs Temp Pulse Resp BP Pulse Ox 99.1 F 102 H 20 104/51 L 97 02/19/19 19:00 02/19/19 19:00 02/19/19 15:52 02/19/19 19:00 02/19/19 22:00 Cor: RSR, No murmurs, No gallops Lungs: Clear to P&A Abd: Soft, Normal bowel sounds, No organomegaly Ext:No significant edema Labs/meds reviewed a/p 83 y/o patient with 1. Dizziness and near syncope, 2. Coronary artery disease angina pectoris 3. Diastolic left ventricular dysfunction with chronic class I [place] [employer] classification left ventricular failure compensated euvolemic 4. Paroxysmal atrial fibrillation [id number] of 6, currently in sinus rhythm on A/C with NOAC's 5. HTN/HCVD 6. Diabetes mellitus 7. Parkinson's disease, questionable 8. History of hyperthyroidism 9. History of reactive airway disease/bronchial asthma 10. History of gastro-esophageal reflux disease 11. Anemia Iron deficiency anemia -- Hgb 6.2/ s/p PRBCs Colonoscopy --descending colon near obstructing mass at 50cm CT a/p unrevealing CT chest unchanged mediastinal adenopathy since 2017/ no lung masses/ enlarged thyroid CEA is 30 Family h/o Dalton syndrome -- contact no. given given to daughters for Dr. zhang/financial associate and asked them to get formally evaluated and asked them to executive assistant to general counsel all other 1st/2nd/3rd degree relatives in the family
[2019-02-20] MEDS ORDERED: ALVIMOPAN 12 MG CAP PO ONE (07:00)
[2019-02-20 07:01] LABS: HEMATOCRIT 30.6 % (32.4-45.2); HEMOGLOBIN 9.2 GM/dL (10.7-15.3); MCH 21.7 pg (25.7-33.7); MEAN CELL VOLUME 72.3 fl (80-96); MEAN PLT VOLUME 7.2 fl (7.5-11.1); PLATELET COUNT 294 K/MM3 (134-434); RBC 4.23 M/mm3 (3.60-5.2); RDW 27.1 % (11.6-15.6); WHITE BLOOD COUNT 5.9 K/mm3 (4.0-10.0)
[2019-02-20 07:23] LABS: INR 1.09 (0.83-1.09); PROTHROMBIN TIME (PATIENT) 12.9 SEC (9.7-13.0)
[2019-02-20] MEDS ORDERED: BUPIVACAINE LIPOSOME/PF (EXPAREL) 266 MG/20 ML VIAL ONE (07:25)
[2019-02-20] MEDS ORDERED: BUPIVACAINE HCL/PF 0.5% (5MG/ML) 10 ML VIAL ONE (07:25)
[2019-02-20 07:26] LABS: ACTIVATED PTT 29.5 SECONDS (25.2-36.5)
[2019-02-20] MEDS ORDERED: MIDAZOLAM HCL 2 MG/2 ML SINGLE DOSE VIAL ONE (07:45)
[2019-02-20] MEDS ORDERED: ROCURONIUM BROMIDE 50 MG/5 ML VIAL ONE (07:45)
[2019-02-20] MEDS ORDERED: SUCCINYLCHOLINE CHLORIDE 200 MG/10 ML VIAL ONE (07:45)
[2019-02-20] MEDS ORDERED: PROPOFOL 20 ML ONE (07:45)
[2019-02-20 07:57] LABS: ANION GAP 7 MMOL/L (8-16); BLOOD UREA NITROGEN 10 mg/dL (7-18); CALCIUM 8.7 mg/dL (8.5-10.1); CHLORIDE 106 mmol/L (98-107); CO2 26 mmol/L (21-32); CREATININE 0.7 mg/dL (0.55-1.3); GLUCOSE,RANDOM 106 mg/dL (74-106); MAGNESIUM 2.4 mg/dL (1.8-2.4); PHOSPHOROUS 3.8 mg/dL (2.5-4.9); SODIUM 139 mmol/L (136-145)
[2019-02-20] MEDS ORDERED: ERTAPENEM SODIUM 1 GM in SODIUM CHLORIDE 50 ML IVPB ONE (08:05)
--- NOTE | 2019-02-20 08:32 | PN ---
Teaching Attending Note Name of Resident: Roxann Garza ATTENDING PHYSICIAN STATEMENT I saw and evaluated the patient. I reviewed the resident's note and discussed the case with the resident. I agree with the resident's findings and plan as documented. SUBJECTIVE: Patient is going for surgery today. OBJECTIVE: Vital Signs Temperature 97.3 F L 02/20/19 06:10 Pulse Rate 67 02/20/19 06:10 Respiratory Rate 17 02/20/19 06:10 Blood Pressure 124/69 02/20/19 06:10 O2 Sat by Pulse Oximetry (%) 97 02/19/19 22:00 GENERAL: The patient is more awake, in no acute distress. positive for essential tremor. HEAD: Normal with no signs of trauma. EYES: PERRL, extraocular movements intact, sclera anicteric, conjunctiva clear. ENT: Ears normal, oropharynx clear without exudates, moist mucous membranes. NECK: Trachea midline, full range of motion, supple. LUNGS: Breath sounds equal, CTA bilaterally, no wheezes, no crackles, no accessory muscle use. HEART: Regular rate and rhythm, S1, S2 positive without murmur, rub or gallop. ABDOMEN: Soft, large abdomen, ND, normoactive bowel sounds, no guarding, no rebound, no masses are appreciated. EXTREMITIES: 2+ pulses, warm, well-perfused, no edema. NEUROLOGICAL: Cranial nerves II through XII grossly intact. Normal speech, gait not observed. PSYCH: Normal mood, normal affect. SKIN: Warm, dry, normal turgor, no rashes or lesions noted CBCD WBC 5.9 K/mm3 (4.0-10.0) 02/20/19 06:00 RBC 4.23 M/mm3 (3.60-5.2) 02/20/19 06:00 Hgb 9.2 GM/dL (10.7-15.3) L 02/20/19 06:00 Hct 30.6 % (32.4-45.2) L 02/20/19 06:00 MCV 72.3 fl (80-96) L 02/20/19 06:00 MCHC 30.0 g/dl (32.0-36.0) L 02/20/19 06:00 RDW 27.1 % (11.6-15.6) H 02/20/19 06:00 Plt Count 294 K/MM3 (134-434) 02/20/19 06:00 MPV 7.2 fl (7.5-11.1) L 02/20/19 06:00 CMP Sodium 139 mmol/L (136-145) 02/20/19 06:00 Potassium 4.0 mmol/L (3.5-5.1) 02/20/19 06:00 Chloride 106 mmol/L (98-107) 02/20/19 06:00 Carbon Dioxide 26 mmol/L (21-32) 02/20/19 06:00 Anion Gap 7 MMOL/L (8-16) L 02/20/19 06:00 BUN 10 mg/dL (7-18) 02/20/19 06:00 Creatinine 0.7 mg/dL (0.55-1.3) 02/20/19 06:00 Creat Clearance w eGFR 80.11 (>60) 02/20/19 06:00 Random Glucose 106 mg/dL (74-106) 02/20/19 06:00 Calcium 8.7 mg/dL (8.5-10.1) 02/20/19 06:00 Total Bilirubin 0.3 mg/dL (0.2-1) 02/19/19 07:00 AST 17 U/L (15-37) 02/19/19 07:00 ALT 14 U/L (13-61) 02/19/19 07:00 Alkaline Phosphatase 82 U/L (45-117) 02/19/19 07:00 Total Protein 5.8 g/dl (6.4-8.2) L 02/19/19 07:00 Albumin 2.9 g/dl (3.4-5.0) L 02/19/19 07:00 CARDIAC ENZYMES Troponin I 0.02 ng/ml (0.00-0.05) 02/14/19 12:18 Current Medications Generic Name Dose Route Start Last Admin Trade Name Freq PRN Reason Stop Dose Admin Acetaminophen 650 mg 02/15/19 09:14 02/16/19 19:45 Tylenol - PO 650 mg Q6H PRN Administration Fever Or Pain Ascorbic Acid 500 mg 02/16/19 10:00 02/19/19 09:57 Vitamin C - PO 500 mg DAILY SRIKANTH Administration Ferrous Sulfate 325 mg 02/16/19 10:00 02/19/19 09:57 Feosol - PO 325 mg DAILY SRIKANTH Administration Furosemide 20 mg 02/15/19 10:00 02/19/19 09:57 Lasix Injection - IVPUSH 20 mg DAILY SRIKANTH Administration Ertapenem 1 gm/ Sodium 50 mls @ 50 mls/hr 02/20/19 08:05 Chloride IVPB 02/20/19 09:04 ONCE ONE Protocol Methimazole 5 mg 02/20/19 10:00 Tapazole - PO DAILY SRIKANTH Metoprolol Succinate 50 mg 02/16/19 09:07 02/19/19 09:57 Toprol Xl - PO 50 mg DAILY SRIKANTH Administration Home Medications Medication Instructions Recorded Bimatoprost [Lumigan] 1 drop OU DAILY 04/09/17 Apixaban [Eliquis -] 5 mg PO BID #60 tab 04/13/17 Brimonidine Tartrate/Timolol 5 ml OU BID 02/17/18 [Combigan 0.2%-0.5% Eye Drops] Metoprolol Succinate [Toprol Xl] 25 mg PO DAILY 02/17/18 Latanoprost 0.005% Eye Drops 1 drop HS 02/14/19 [Xalatan 0.005% Eye Drops -] Losartan Potassium 50 mg PO BID 02/14/19 Methimazole 5 mg PO TID 02/14/19 ASSESSMENT AND PLAN: Patient is a 83yo female with PMhx of A fib on eliquis s/p cardioversion, DM, HTN, hyperthyroidism , patient was seen in GI clinic today by Dr. Rangel with abdominal pain , generalized weakness and was found to have severe worsening anemia with microcytosis. was send to Ed. for further care. # Patient is for surgery today for colon cancer for left colectomy. # s/p symptomatic microcytic anemia due to Iron deficiency anemia and colon mass : s/p EGD and colonoscopy ,completed, surgery consult appreciated , keep hgb > 7, continue to hold eliquis for surgery. CEA level is elevated. On IV Ertepenem continue #Hx of A fib rate is controlled , continue to hold to Eliquis due to going to sx. on Toprol xl 25mg will continue . # Acute over chronic diastolic CHF: BNP of 16K, s/p lasix iv post transfusion. #HTN: continue home meds. #T2DM , sliding scale with coverage #asthma: nebs prn Dvt px: SCds, hold eliquis GI Px: Protonix
[2019-02-20] MEDS ORDERED: PHENYLEPHRINE HCL 10 MG/1 ML SINGLE DOSE VIAL ONE (08:33)
--- NOTE | 2019-02-20 08:36 | PN ---
Physical Exam: SUBJECTIVE: Patient seen and examined at bedside- no acute events overnight' patient is going for surgery this AM OBJECTIVE: Vital Signs Period Temp Pulse Resp BP Sys/Ugarte Pulse Ox Last 24 Hr 97.3 F-99.1 F 67-102 17-20 101-124/51-69 97 GENERAL: The patient is awake, alert, and fully oriented, in no acute distress. EYES: PEERLA; EOMI; no scleral icterus NECK:no JVD: no lymphadenopathy LUNGS: CTA B/L; no rales, rhonchi or wheezing HEART: Regular rate and rhythm, S1, S2 without murmur, rub or gallop. ABDOMEN: Soft, slight tenderness upon palpation; +BS in all 4 quadrants EXTREMITIES: 2+ pulses, warm, well-perfused, no edema. PSYCH: Normal mood, normal affect. SKIN: Warm, dry, normal turgor, no rashes or lesions noted Laboratory Results - last 24 hr 02/19/19 02/20/19 02/20/19 07:00 06:00 06:00 WBC 5.9 RBC 4.23 Hgb 9.2 L Hct 30.6 L MCV 72.3 L MCH 21.7 L MCHC 30.0 L RDW 27.1 H Plt Count 294 MPV 7.2 L PT with INR INR PTT (Actin FS) Sodium 139 Potassium 4.0 Chloride 106 Carbon Dioxide 26 Anion Gap 7 L BUN 10 Creatinine 0.7 Creat Clearance w eGFR 80.11 Random Glucose 106 Calcium 8.7 Phosphorus 3.8 Magnesium 2.4 Free T3 2.9 Blood Type Antibody Screen 02/20/19 02/20/19 06:00 06:00 WBC RBC Hgb Hct MCV MCH MCHC RDW Plt Count MPV PT with INR 12.90 INR 1.09 PTT (Actin FS) 29.5 Sodium Potassium Chloride Carbon Dioxide Anion Gap BUN Creatinine Creat Clearance w eGFR Random Glucose Calcium Phosphorus Magnesium Free T3 Blood Type O POSITIVE Antibody Screen Negative Active Medications Generic Name Dose Route Start Last Admin Trade Name Freq PRN Reason Stop Dose Admin Acetaminophen 650 mg 02/15/19 09:14 02/16/19 19:45 Tylenol - PO 650 mg Q6H PRN Administration Fever Or Pain Ascorbic Acid 500 mg 02/16/19 10:00 02/19/19 09:57 Vitamin C - PO 500 mg DAILY SRIKANTH Administration Ferrous Sulfate 325 mg 02/16/19 10:00 02/19/19 09:57 Feosol - PO 325 mg DAILY SRIKANTH Administration Furosemide 20 mg 02/15/19 10:00 02/19/19 09:57 Lasix Injection - IVPUSH 20 mg DAILY SRIKANTH Administration Ertapenem 1 gm/ Sodium 50 mls @ 50 mls/hr 02/20/19 08:05 Chloride IVPB 02/20/19 09:04 ONCE ONE Protocol Methimazole 5 mg 02/20/19 10:00 Tapazole - PO DAILY SRIKANTH Metoprolol Succinate 50 mg 02/16/19 09:07 02/19/19 09:57 Toprol Xl - PO 50 mg DAILY SRIKANTH Administration ASSESSMENT/PLAN: 83 y/o female with PMH of A fib on eliquis, DM, HTN, hyperthyroidism, who presented to the ED with worsening abdominal pain, weakness, anemia found to have a colonic mass #Colonic mass patient found to have a near obstruction descending colonic mass -pt going for surgery tomorrow for partial coelectomy -heme/onc on board -initial CEA elevated -cleared by cardio -f/u CT chest -patient going for surgery this AM; -family discussion will need to be have #Microcytic Anemia likely 2/2 colonic mass monitor Hgb tranfuse if Hgb <8 since patient is cardiac patient #Afib holding patient eliquis in light of bleeding c/w toprol 50 daily #HTN c/w toprol 50 daily #CHF stable for now c/w lasix 20 daily #Hyperthyroidism dr. shelley consulted holding patients methimazole for now F/E/N' not on fluids monitor electrolytes Problem List - Problems (1) Microcytic anemia Code(s): D50.9 - IRON DEFICIENCY ANEMIA, UNSPECIFIED (2) Atrial fibrillation Code(s): I48.91 - UNSPECIFIED ATRIAL FIBRILLATION Qualifiers: Atrial fibrillation type: persistent Qualified Code(s): I48.1 - Persistent atrial fibrillation (3) CAD (coronary artery disease) Code(s): I25.10 - ATHSCL HEART DISEASE OF [place] CORONARY ARTERY W/O ANG PCTRS Qualifiers: Coronary Disease-Associated Artery/Lesion type: [place] artery [place] vs. transplanted heart: [place] heart Associated angina: without angina Qualified Code(s): I25.10 - Atherosclerotic heart disease of [place] coronary artery without angina pectoris (4) CHF (congestive heart failure) Code(s): I50.9 - HEART FAILURE, UNSPECIFIED Visit type - Emergency Visit Emergency Visit: Yes ED Registration Date: 02/15/19 Care time: The patient presented to the Emergency Department on the above date and was hospitalized for further evaluation of their emergent condition. - New Patient This patient is new to me today: No - Critical Care Critical Care patient: No
[2019-02-20] MEDS ORDERED: ERTAPENEM SODIUM 1 GM VIAL IVPB ONE (08:41)
[2019-02-20] MEDS ORDERED: ePHEDrine SULFATE 50 MG/1 ML AMPULE ONE (08:44)
[2019-02-20] MEDS ORDERED: DESFLURANE GAS 240 ML BOTTLE IH ONE (08:46)
[2019-02-20] MEDS ORDERED: ERTAPENEM SODIUM 1 GM VIAL ONE (08:47)
[2019-02-20] MEDS ORDERED: fentaNYL CITRATE 250 MCG/5 ML VIAL ONE (08:58)
[2019-02-20] MEDS ORDERED: DEXAMETHASONE SOD PHOSPHATE 4 MG/1 ML VIAL ONE (09:04)
[2019-02-20] MEDS ORDERED: METHIMAZOLE 5 MG TABLET (FP) PO SCH (10:00)
[2019-02-20] MEDS: ASCORBIC ACID 500 MG TABLET (FP) PO SCH (10:19)
[2019-02-20] MEDS: FERROUS SO4 325 MG TABLET (FP) PO SCH (10:19)
[2019-02-20] MEDS: FUROSEMIDE 40 MG/4 ML INJECTABLE VIAL IVPUSH SCH (10:19)
[2019-02-20] MEDS ORDERED: GLYCOPYRROLATE 0.2 MG/1 ML VIAL ONE (10:54)
[2019-02-20] MEDS ORDERED: NEOSTIGMINE METHYLSULFATE 0.5 MG/ML - 10 ML MDV ONE (10:54)
[2019-02-20] MEDS ORDERED: KETOROLAC TROMETHAMINE 30 MG/1 ML VIAL ONE (10:54)
[2019-02-20] MEDS ORDERED: ONDANSETRON 4 MG/2 ML VIAL IVPUSH PRN ×2 (11:16→12:41)
[2019-02-20] MEDS ORDERED: KETOROLAC TROMETHAMINE 15 MG/ML VIAL IVPUSH PRN ×2 (11:17→12:41)
[2019-02-20] MEDS ORDERED: MORPHINE SULFATE 2 MG/ML VIAL IVPUSH PRN ×3 (11:20→12:41)
[2019-02-20] MEDS ORDERED: LACTATED RINGERS SOLUTION 1,000 ML IV SCH (11:30)
[2019-02-20] MEDS ORDERED: ACETAMINOPHEN 1000 MG/100 ML VIAL (NON FORMULARY) IVPB SCH (11:30)
[2019-02-20] MEDS ORDERED: POVIDONE-IODINE OINTMENT 10% - 28.4 GM TUBE ONE (11:34)
[2019-02-20] MEDS ORDERED: ESMOLOL HCL 100,000 MCG/10 ML VIAL ONE (11:38)
[2019-02-20] MEDS ORDERED: METOPROLOL TARTRATE 5 MG/5 ML VIAL ONE (11:51)
--- NOTE | 2019-02-20 12:11 | OP ---
Operative Note - Note: Operative Date: 02/20/19 Pre-Operative Diagnosis: Left colon neoplasm Operation: Left colectomy with splenic flexure takedown 02/20 Post-Operative Diagnosis: Same as Pre-op Surgeon: John Alvarado Sales Representative Supervisor: Steve Escalona (Darleen Escalona) Anesthesiologist/PACKAGER HEAD: Addy Hale Anesthesia: General Specimens Removed: Left colon Estimated Blood Loss (mls): 150 Drains, Volume Out (mls): 60 (Berry) Fluid Volume Replaced (mls): 2,000 Operative Report Dictated: Yes
[2019-02-20] MEDS ORDERED: ACETAMINOPHEN INJECTION 100 ML IVPB ONE (12:12)
--- NOTE | 2019-02-20 12:12 | SURG ---
Surgery Machine Maintenance Technician Note Machine Maintenance Technician: Steve Escalona PA-C Date of Service: 02/20/19 Diagnosis: Left colon neoplasm Procedure: s/p Left colectomy with splenic flexure takedown 02/20 I was present for the entirety of the operative procedure. For further detail, please refer to operative report. Visit type - Case Type Case Type: Scheduled - New patient This patient is new to me today: Yes Date on this admission: 02/20/19
[2019-02-20] MEDS: ACETAMINOPHEN 1000 MG/100 ML VIAL (NON FORMULARY) IVPB SCH ×3 (12:25→23:04)
[2019-02-20] MEDS ORDERED: ACETAMINOPHEN 325 MG TABLET (FP) PO PRN (12:41)
[2019-02-20] MEDS ORDERED: METOPROLOL TARTRATE 5 MG/5 ML VIAL IVPUSH ONE (13:14)
[2019-02-20 13:29] LABS: ANION GAP 7 MMOL/L (8-16); BLOOD UREA NITROGEN 12 mg/dL (7-18); CALCIUM 7.9 mg/dL (8.5-10.1); CHLORIDE 106 mmol/L (98-107); CO2 24 mmol/L (21-32); CREATININE 0.9 mg/dL (0.55-1.3); GLUCOSE,RANDOM 212 mg/dL (74-106); POTASSIUM 4.1 mmol/L (3.5-5.1); SODIUM 137 mmol/L (136-145)
[2019-02-20] MEDS ORDERED: KETOROLAC TROMETHAMINE 15 MG/ML VIAL ONE (14:01)
[2019-02-20] MEDS: MORPHINE SULFATE 2 MG/ML VIAL IVPUSH PRN (14:28)
[2019-02-20] MEDS: LACTATED RINGERS SOLUTION 1,000 ML IV SCH ×2 (14:37→20:24)
--- NOTE | 2019-02-20 16:57 | PATH ---
Surgical Pathology Report Patient Name: LILLIE GOMEZ [facility]. Rec. #: [id number] /Age/Gender: 1935 (Age: 83) / F Account: [id number] Location: [address] [place] [address] Taken: 02/16/2019 Received: 02/19/2019 Reported: 02/20/2019 Physicians: Peewee Goodrich M.D. Specimen(s) Received A: 2ND PORTION DUODENUM AND BULB B: ANTRUM C: BODY D: MASS AT 50 CM BIOPSY E: DESCENDING COLON POLYPS Clinical History Anemia Postoperative diagnosis: Duodenitis, gastritis, gastric polyps, colon polyps, mass at 50 cm Final Diagnosis A. SECOND PORTION DUODENUM AND BULB, BIOPSY: DUODENUM MUCOSA WITH ULCERATION AND ACTIVE CHRONIC INFLAMMATION. B. ANTRUM EROSION, BIOPSY: GASTRIC MUCOSA WITH ACTIVE CHRONIC GASTRITIS. IMMUNOSTAIN FOR H. PYLORI IS POSITIVE. NEGATIVE FOR INTESTINAL METAPLASIA. C. BODY OF STOMACH, POLYPS, BIOPSY: GASTRIC MUCOSA WITH ACTIVE CHRONIC GASTRITIS. IMMUNOSTAIN FOR H. PYLORI IS POSITIVE. NEGATIVE FOR INTESTINAL METAPLASIA. D. MASS AT 50CM, BIOPSY: INVASIVE ADENOCARCINOMA, MODERATELY DIFFERENTIATED. IMMUNOHISTOCHEMISTRY (IHC) TESTING FOR MISMATCH REPAIR (MMR) PROTEINS TO FOLLOW. E. DESCENDING COLON POLYPS X 3, POLYPECTOMY: TUBULAR ADENOMA, THREE FRAGMENTS. Intradepartmental case reviewed with consensus on diagnosis. This case was discussed with Dr. Leong on February 20, 2019. Electronically Signed Jevon Floyd M.D. Addendum Reported: 02/22/2019 Addendum Diagnosis Immunohistochemistry (IHC) Testing for Mismatch Repair (MMR) Proteins performed on block D1 at [facility] in [place], [place] ([id number]) and interpreted at [facility] show the following results: MLH1 Intact nuclear expression MSH2 Intact nuclear expression MSH6 Intact nuclear expression PMS2 Intact nuclear expression Background nonneoplastic tissue/internal control with intact nuclear expression IHC Interpretation: No loss of nuclear expression of MMR proteins: low probability of microsatellite instability-high(MSI-H) Jevon Floyd M.D. Gross Description A. Received in formalin, labeled "biopsy second portion of duodenum and bulb" are 2 giles, irregular portions of soft tissue measuring 0.2 and 0.4 cm. in greatest dimension. The specimens are submitted in toto in one cassette. B. Received in formalin, labeled "biopsy antral erosion" are 2 giles, irregular portions of soft tissue averaging 0.4 cm. in greatest dimension. The specimens are submitted in toto in one cassette. C. Received in formalin, labeled "biopsy body of stomach polyps" are 2 giles, irregular portions of soft tissue measuring 0.1 and 0.3 cm. in greatest dimension. The specimens are submitted in toto in one cassette. D. Received in formalin labeled "biopsy mass at 50 cm," is a 0.9 x 0.7 x 0.2 cm aggregate of giles soft tissue fragments. The formalin is filtered and the specimen is entirely submitted in one cassette. E. Received in formalin labeled "polyps descending colon," are 3 giles-brown, polypoid portions of soft tissue ranging from 0.5-1.5 cm in greatest dimension. The larger polyp is bisected and the specimen is entirely submitted in 2 cassettes as follows: 1-two smaller polyps in toto; 2-larger, bisected polyp. 02/19/2019 [facility]02/19/2019
--- NOTE | 2019-02-20 17:28 | PN.GI ---
GI Progress Note Subjective: S/P Left colectomy with splenic flexure takedown. Patient resting comfortably. Family present at bedside Colonoscopy/EGD path back: Tubular adenomas x 3 removed and confirmed adenoca ( colon mass). Also H. Pylori + - Objective Vital Signs: Vital Signs Temperature 97.4 F L 02/20/19 14:41 Pulse Rate 93 H 02/20/19 14:41 Respiratory Rate 20 02/20/19 14:41 Blood Pressure 99/50 L 02/20/19 14:41 O2 Sat by Pulse Oximetry (%) 99 02/20/19 14:41 Constitutional: Calm Eyes: No: Sclera Icterus Cardiovascular: Yes: Tachycardia, Pulse Irregular Respiratory: Yes: Diminished (At bases b/l with poor insp effort) Gastrointestinal Inspection: Yes: Other (dressing in mid abdomen) ...Auscultate: Yes: Normoactive Bowel Sounds ...Palpate: No: Tenderness ...Percussion: No: Tympanitic Edema: No (No LE edema) Neurological: Yes: Alert Labs: CBC, BMP 02/20/19 06:00 02/20/19 12:30 INR, PTT INR 1.09 (0.83-1.09) 02/20/19 06:00 Hepatic Panel Total Bilirubin 0.3 mg/dL (0.2-1) 02/19/19 07:00 AST 17 U/L (15-37) 02/19/19 07:00 ALT 14 U/L (13-61) 02/19/19 07:00 Alkaline Phosphatase 82 U/L (45-117) 02/19/19 07:00 Albumin 2.9 g/dl (3.4-5.0) L 02/19/19 07:00 Problem List - Problems (1) Malignant neoplasm of left colon Assessment/Plan: S/P left hemicolectomy Awaiting path Onc following Post op care per surgery Code(s): C18.6 - MALIGNANT NEOPLASM OF DESCENDING COLON (2) Helicobacter pylori gastritis Assessment/Plan: with antral erosions Will need treatment once acute issues resolved For now, protonix 20mg PO BID when can take PO. this can be combined with antibiotic therapy for h. pylori triple therapy Code(s): K29.70 - GASTRITIS, UNSPECIFIED, WITHOUT BLEEDING; B96.81 - HELICOBACTER PYLORI THE CAUSE OF DISEASES CLASSD ELSR
[2019-02-21] MEDS: MORPHINE SULFATE 2 MG/ML VIAL IVPUSH PRN ×3 (02:19→20:59)
[2019-02-21] MEDS: ACETAMINOPHEN 1000 MG/100 ML VIAL (NON FORMULARY) IVPB SCH (05:29)
[2019-02-21 07:05] LABS: HEMATOCRIT 27.6 % (32.4-45.2); HEMOGLOBIN 8.2 GM/dL (10.7-15.3); MCHC 29.7 g/dl (32.0-36.0); MEAN CELL VOLUME 73.8 fl (80-96); MEAN PLT VOLUME 7.6 fl (7.5-11.1); PLATELET COUNT 256 K/MM3 (134-434); RBC 3.74 M/mm3 (3.60-5.2); WHITE BLOOD COUNT 19.1 K/mm3 (4.0-10.0)
[2019-02-21 07:41] LABS: ANION GAP 9 MMOL/L (8-16); BLOOD UREA NITROGEN 18 mg/dL (7-18); CHLORIDE 106 mmol/L (98-107); CO2 26 mmol/L (21-32); CREATININE 1.3 mg/dL (0.55-1.3); GLUCOSE,RANDOM 136 mg/dL (74-106); MAGNESIUM 2.1 mg/dL (1.8-2.4); PHOSPHOROUS 5.9 mg/dL (2.5-4.9); POTASSIUM 5.2 mmol/L (3.5-5.1); SODIUM 140 mmol/L (136-145)
--- NOTE | 2019-02-21 07:53 | PN ---
Progress Note (short form) - Note Progress Note: Patient seen and examined S/p left hemicolectomy H/O Dalton Syndrome Re-nforced need for genetic connwselling by family memebers with daughter Shelby at bedside Complains of throat pain s/p surgery Last Vital Signs Temp Pulse Resp BP Pulse Ox 97.9 F 110 H 21 H 112/66 99 02/21/19 06:44 02/21/19 06:44 02/21/19 06:44 02/21/19 06:44 02/20/19 22:00 HEENT: [place], EOM Intact Oropharynx: No thrush, No mucositis Breasts: Without masses Cor: RSR, No murmurs, No gallops Lungs:Poor inspiratory effort Abd: surgical dressing Ext:No significant edema Skin: No rashes, Integument intact CBC, BMP 02/21/19 05:30 02/21/19 05:30 Current Medications Generic Name Dose Route Start Last Admin Trade Name Freq PRN Reason Stop Dose Admin Acetaminophen 650 mg 02/20/19 12:41 Tylenol - PO Q6H PRN Fever Ascorbic Acid 500 mg 02/21/19 10:00 Vitamin C - PO DAILY [facility] Ferrous Sulfate 325 mg 02/21/19 10:00 Feosol - PO DAILY [facility] Furosemide 20 mg 02/21/19 10:00 Lasix Injection - IVPUSH DAILY [facility] Lactated Ringer's 1,000 mls @ 75 mls/hr 02/20/19 12:41 02/20/19 20:24 Lactated Ringers Solution IV 75 mls/hr ASDIR SRIKANTH Administration Ketorolac Tromethamine 15 mg 02/20/19 12:41 02/20/19 14:00 Toradol Injection - IVPUSH 02/25/19 11:16 15 mg Q6H PRN Administration PAIN LEVEL 1 - 3 Methimazole 5 mg 02/21/19 10:00 Tapazole - PO DAILY [facility] Metoprolol Succinate 50 mg 02/21/19 10:00 Toprol Xl - PO DAILY SRIKANTH Morphine Sulfate 1 mg 02/20/19 12:41 Morphine Sulfate IVPUSH Q3H PRN PAIN LEVEL 4 - 6 Morphine Sulfate 2 mg 02/20/19 12:41 02/21/19 02:19 Morphine Sulfate IVPUSH 2 mg Q4H PRN Administration PAIN LEVEL 7 - 10 Ondansetron HCl 4 mg 02/20/19 12:41 Zofran Injection IVPUSH 02/21/19 11:15 Q6H PRN NAUSEA AND/OR VOMITING S/P left hemicolectomy H.Pylorii Family hx of Dalton syndrome Await path.
--- NOTE | 2019-02-21 07:57 | PN ---
Progress Note (short form) - Note Progress Note: POD #1 No acute events since surgery per RN notes. Alert. C/o incisional tenderness. Patient had TAP block prior too surgery to aid in her pain management. Hasn't been OOB yet. Has leos in place. Denies n/v/f/c, CP, SOB or FREITAS. Last Vital Signs Temp Pulse Resp BP Pulse Ox 97.9 F 110 H 21 H 112/66 99 02/21/19 06:44 02/21/19 06:44 02/21/19 06:44 02/21/19 06:44 02/20/19 22:00 CBC, BMP 02/21/19 05:30 02/21/19 05:30 Gen: nad ABD: dressing c/d/i : leos to gravity LE: SCDs bilat. soft. nt. Problem List - Problems (1) Colonic mass Assessment/Plan: POD #1 s/p Left colectomy with splenic flexure takedown. Colonoscopy results: biopsy confirms adenocarcinoma. NPO IVF GI PPX DVT PPX Entereg 12mg PO BID (dc once passes flatus or max of 15 doses admin) Monitor leos output LR increased to 125mL/hr OOB Incentive Spirometer Code(s): K63.9 - DISEASE OF INTESTINE, UNSPECIFIED (2) Microcytic anemia Code(s): D50.9 - IRON DEFICIENCY ANEMIA, UNSPECIFIED (3) Asthma Code(s): J45.909 - UNSPECIFIED ASTHMA, UNCOMPLICATED Qualifiers: Asthma severity: mild Asthma persistence: intermittent Asthma complication type: unspecified Qualified Code(s): J45.20 - Mild intermittent asthma, uncomplicated (4) Atrial fibrillation Code(s): I48.91 - UNSPECIFIED ATRIAL FIBRILLATION Qualifiers: Atrial fibrillation type: persistent Qualified Code(s): I48.1 - Persistent atrial fibrillation (5) CAD (coronary artery disease) Code(s): I25.10 - ATHSCL HEART DISEASE OF [place] CORONARY ARTERY W/O ANG PCTRS Qualifiers: Coronary Disease-Associated Artery/Lesion type: [place] artery [place] vs. transplanted heart: [place] heart Associated angina: without angina Qualified Code(s): I25.10 - Atherosclerotic heart disease of [place] coronary artery without angina pectoris
--- NOTE | 2019-02-21 09:00 | PN ---
Physical Exam: SUBJECTIVE: Patient seen and examined at bedside- patient is complaining of pain at the incision site; patient has not passed flatus yet- leos in place . patient using incentive spirometer; denies CP/SOB/N/V OBJECTIVE: Vital Signs Period Temp Pulse Resp BP Sys/Ugarte Pulse Ox Last 24 Hr 97.4 F-99.0 F 80-139 12-22 85-131/50-99 98-100 GENERAL: The patient is awake, alert, and fully oriented, in no acute distress. EYES: PEERLA: EOMI; no scleral icterus . NECK: no JVD; no lympahdenopathy LUNGS:CTA B/L; no rales, rhonchi or wheezing HEART: Regular rate and rhythm, S1, S2 without murmur, rub or gallop. ABDOMEN: Soft, slight tenderness upon palpation; dressing c/d/i/ +BS in all 4 quadrants. EXTREMITIES: 2+ pulses, warm, well-perfused, no edema SCDS in place. PSYCH: Normal mood, normal affect. SKIN: Warm, dry, normal turgor, no rashes or lesions noted Laboratory Results - last 24 hr 02/20/19 02/21/19 02/21/19 12:30 05:30 05:30 WBC 19.1 H RBC 3.74 Hgb 8.2 L Hct 27.6 L MCV 73.8 L MCH 22.0 L MCHC 29.7 L RDW 28.0 H Plt Count 256 MPV 7.6 Sodium 137 140 Potassium 4.1 5.2 H Chloride 106 106 Carbon Dioxide 24 26 Anion Gap 7 L 9 BUN 12 18 Creatinine 0.9 1.3 Creat Clearance w eGFR 59.94 39.21 Random Glucose 212 H 136 H Calcium 7.9 L 8.0 L Phosphorus 5.9 H Magnesium 2.1 Active Medications Generic Name Dose Route Start Last Admin Trade Name Freq PRN Reason Stop Dose Admin Acetaminophen 650 mg 02/20/19 12:41 Tylenol - PO Q6H PRN Fever Alvimopan 12 mg 02/21/19 10:00 Entereg Capsule (Restricted) - PO BID SRIKANTH Ascorbic Acid 500 mg 02/21/19 10:00 Vitamin C - PO DAILY SRIKANTH Ferrous Sulfate 325 mg 02/21/19 10:00 Feosol - PO DAILY SRIKAN[facility] Furosemide 20 mg 02/21/19 10:00 Lasix Injection - IVPUSH DAILY [facility] Lactated Ringer's 1,000 mls @ 125 mls/hr 02/21/19 08:02 Lactated Ringers Solution IV ASDIR [facility] Methimazole 5 mg 02/21/19 10:00 Tapazole - PO DAILY [facility] Metoprolol Succinate 50 mg 02/21/19 10:00 Toprol Xl - PO DAILY [facility] Morphine Sulfate 1 mg 02/20/19 12:41 Morphine Sulfate IVPUSH Q3H PRN PAIN LEVEL 4 - 6 Morphine Sulfate 2 mg 02/20/19 12:41 02/21/19 02:19 Morphine Sulfate IVPUSH 2 mg Q4H PRN Administration PAIN LEVEL 7 - 10 Ondansetron HCl 4 mg 02/20/19 12:41 Zofran Injection IVPUSH 02/21/19 11:15 Q6H PRN NAUSEA AND/OR VOMITING ASSESSMENT/PLAN: 83 y/o female with PMH of A fib on eliquis, DM, HTN, hyperthyroidism, who presented to the ED with worsening abdominal pain, weakness, anemia found to have a colonic mass #Colonic mass patient found to have a near obstruction descending colonic mass -POD #1 left colectomy with splenic flexure takedown -incentive spirometer; morphine PRN for pain -EGD/colonscopy path back showing tubular adeonma X3 consistent with adenocarcinoma -heme/onc on board- family we need to have genetic testing -cleared by cardio -family discussion will need to be have #Microcytic Anemia likely 2/2 colonic mass monitor Hgb tranfuse if Hgb <8 since patient is cardiac patient #DM ISS BGMS ACHS #Afib holding patient eliquis in light of bleeding c/w toprol 50 daily #HTN c/w toprol 50 daily #CHF stable for now c/w lasix 20 daily #Hyperthyroidism methimazole 5mg daily F/E/N' NPO not on fluids monitor electrolytes Problem List - Problems (1) Microcytic anemia Code(s): D50.9 - IRON DEFICIENCY ANEMIA, UNSPECIFIED (2) Atrial fibrillation Code(s): I48.91 - UNSPECIFIED ATRIAL FIBRILLATION Qualifiers: Atrial fibrillation type: persistent Qualified Code(s): I48.1 - Persistent atrial fibrillation (3) CAD (coronary artery disease) Code(s): I25.10 - ATHSCL HEART DISEASE OF [place] CORONARY ARTERY W/O ANG PCTRS Qualifiers: Coronary Disease-Associated Artery/Lesion type: [place] artery [place] vs. transplanted heart: [place] heart Associated angina: without angina Qualified Code(s): I25.10 - Atherosclerotic heart disease of [place] coronary artery without angina pectoris (4) CHF (congestive heart failure) Code(s): I50.9 - HEART FAILURE, UNSPECIFIED Visit type - Emergency Visit Emergency Visit: Yes ED Registration Date: 02/15/19 Care time: The patient presented to the Emergency Department on the above date and was hospitalized for further evaluation of their emergent condition. - New Patient This patient is new to me today: No - Critical Care Critical Care patient: No
[2019-02-21] MEDS ORDERED: FUROSEMIDE 40 MG/4 ML INJECTABLE VIAL IVPUSH SCH (10:00)
[2019-02-21] MEDS ORDERED: HEPARIN NA (PORCINE) 5,000 UNITS/ML 1ML VIAL SQ SCH (10:00)
--- NOTE | 2019-02-21 10:25 | PN.GI ---
GI Progress Note Subjective: Pt seen/examined at bedside, s/p left hemicolectomy, POD #1. Pts daughter also present, pt reporting tenderness at incision site and mild throat discomfort. Denies n/v, no bm or flatus yet. - Objective Vital Signs: Vital Signs Temperature 98.1 F 02/21/19 10:01 Pulse Rate 124 H 02/21/19 10:02 Respiratory Rate 20 02/21/19 10:02 Blood Pressure 101/62 02/21/19 10:02 O2 Sat by Pulse Oximetry (%) 99 02/20/19 22:00 Constitutional: Well Nourished, No Distress, Calm Cardiovascular: Yes: WNL, Regular Rate and Rhythm Respiratory: Yes: WNL, Regular, CTA Bilaterally Gastrointestinal Inspection: Yes: Other (+midline incision with dressing) ...Palpate: Yes: Other (Abd soft, mildly tender at incision sites, nondistended) Labs: CBC, BMP 02/21/19 05:30 02/21/19 05:30 INR, PTT INR 1.09 (0.83-1.09) 02/20/19 06:00 Problem List - Problems (1) Colonic mass Assessment/Plan: s/p colonoscopy on 02/16/19 revealing left colon mass biopsies consistent with invasive adenocarcioma s/p left hemicolectomy, POD#1. -Await final pathology results -Post op management per surgery -Follow up with oncology Code(s): K63.9 - DISEASE OF INTESTINE, UNSPECIFIED (2) Helicobacter pylori gastritis Assessment/Plan: -PPI once tolerating po -Can start treatment for H pylori once clinically improved Code(s): K29.70 - GASTRITIS, UNSPECIFIED, WITHOUT BLEEDING; B96.81 - HELICOBACTER PYLORI THE CAUSE OF DISEASES CLASSD ELSWHR
[2019-02-21] MEDS: LACTATED RINGERS SOLUTION 1,000 ML IV SCH ×2 (10:48→21:05)
--- NOTE | 2019-02-21 10:48 | PN ---
Physical Exam: SUBJECTIVE: Patient seen and examined at bedside. Complains of 7/10 pain in abdomen diffusely. Denies flatus or bowel movement. No nausea, vomiting, fevers. OBJECTIVE: Vital Signs Period Temp Pulse Resp BP Sys/Ugarte Pulse Ox Last 24 Hr 97.4 F-99.0 F 80-139 12-22 85-131/50-99 98-100 GENERAL: A&Ox3 NECK: Trachea midline, full range of motion, supple. No Lymphadenopathy LUNGS: CTA HEART: RRR, no murmurs ABDOMEN: Distended but soft, mildly tender to palpation diffusely, bowel sounds diminished EXTREMITIES: 2+ pulses, warm, well-perfused, no edema. NEUROLOGICAL: Cranial nerves II through XII grossly intact. Normal speech PSYCH: Normal mood, normal affect. SKIN: Warm, dry, normal turgor, no rashes or lesions noted Laboratory Results - last 24 hr 02/20/19 02/21/19 02/21/19 12:30 05:30 05:30 WBC 19.1 H RBC 3.74 Hgb 8.2 L Hct 27.6 L MCV 73.8 L MCH 22.0 L MCHC 29.7 L RDW 28.0 H Plt Count 256 MPV 7.6 Sodium 137 140 Potassium 4.1 5.2 H Chloride 106 106 Carbon Dioxide 24 26 Anion Gap 7 L 9 BUN 12 18 Creatinine 0.9 1.3 Creat Clearance w eGFR 59.94 39.21 Random Glucose 212 H 136 H Calcium 7.9 L 8.0 L Phosphorus 5.9 H Magnesium 2.1 Active Medications Generic Name Dose Route Start Last Admin Trade Name Freq PRN Reason Stop Dose Admin Acetaminophen 650 mg 02/20/19 12:41 Tylenol - PO Q6H PRN Fever Alvimopan 12 mg 02/21/19 10:00 Entereg Capsule (Restricted) - PO BID SRIKANTH Ascorbic Acid 500 mg 02/21/19 10:00 Vitamin C - PO DAILY S[facility] Ferrous Sulfate 325 mg 02/21/19 10:00 Feosol - PO DAILY [facility] Furosemide 20 mg 02/21/19 10:00 02/21/19 10:31 Lasix Injection - IVPUSH Not Given DAILY [facility] Lactated Ringer's 1,000 mls @ 125 mls/hr 02/21/19 08:02 Lactated Ringers Solution IV ASDIR [facility] Methimazole 5 mg 02/21/19 10:00 Tapazole - PO DAILY [facility] Metoprolol Succinate 50 mg 02/21/19 10:00 Toprol Xl - PO DAILY [facility] Morphine Sulfate 1 mg 02/20/19 12:41 Morphine Sulfate IVPUSH Q3H PRN PAIN LEVEL 4 - 6 Morphine Sulfate 2 mg 02/20/19 12:41 02/21/19 09:04 Morphine Sulfate IVPUSH 2 mg Q4H PRN Administration PAIN LEVEL 7 - 10 Ondansetron HCl 4 mg 02/20/19 12:41 Zofran Injection IVPUSH 02/21/19 11:15 Q6H PRN NAUSEA AND/OR VOMITING ASSESSMENT/PLAN: 83yo female with a past medical history of atrial fibrillation on eliquis s/p cardioversion, DM, HTN, hyperthyroidism and is admitted for the treatment of colonic mass and anemia #Colonic Mass: s/p colectomy, will get pathology on mass to further evaluate treatment -complex family situation with family not wanting to inform patient, who is A& Ox3; will need discussion with family about telling patient her diagnosis -CEA 30 -Chest CT - mediastinal lymphadenopathy -biopsy showed invasive adenocarcinoma with, moderately differentiated- lymph node biopsy to follow #Microcytic anemia: likely secondary to colonic mass -transfuse to hgb goal of 7 -monitor H&H in AM #Abdominal Obstruction due to mass, will f/u after surgery Discussed with Dr. Flores Visit type - Emergency Visit Emergency Visit: No - New Patient This patient is new to me today: No - Critical Care Critical Care patient: No
[2019-02-21] MEDS: ALVIMOPAN 12 MG CAP PO SCH ×2 (10:49→21:02)
[2019-02-21] MEDS: FERROUS SO4 325 MG TABLET (FP) PO SCH (10:49)
[2019-02-21] MEDS: ASCORBIC ACID 500 MG TABLET (FP) PO SCH (10:49)
[2019-02-21] MEDS ORDERED: MORPHINE SULFATE 2 MG/ML VIAL IVPUSH PRN (11:23)
[2019-02-21] MEDS: METHIMAZOLE 5 MG TABLET (FP) PO SCH (12:31)
--- NOTE | 2019-02-21 13:11 | PN ---
Progress Note, Physician History of Present Illness: POS#1 S/P Left hemicolectomy with splenic flexure takedown, mild incisional discomfort. - Current Medication List Current Medications: Active Medications Acetaminophen (Ofirmev Injection -) 1,000 mg IVPB Q6H PRN PRN Reason: PAIN 1-3 Alvimopan (Entereg Capsule (Restricted) -) 12 mg PO BID [facility] Last Admin: 02/21/19 10:49 Dose: 12 mg Ascorbic Acid (Vitamin C -) 500 mg PO DAILY [facility] Last Admin: 02/21/19 10:49 Dose: 500 mg Benzocaine/Menthol (Cepacol Lozenge -) 1 each MM PRN PRN PRN Reason: SORE THROAT Ferrous Sulfate (Feosol -) 325 mg PO DAILY [facility] Last Admin: 02/21/19 10:49 Dose: 325 mg Lactated Ringer's (Lactated Ringers Solution) 1,000 mls @ 125 mls/hr IV ASDIR [facility] Last Admin: 02/21/19 10:48 Dose: 125 mls/hr Methimazole (Tapazole -) 5 mg PO DAILY [facility] Last Admin: 02/21/19 12:31 Dose: 5 mg Metoprolol Succinate (Toprol Xl -) 50 mg PO DAILY [facility] Last Admin: 02/21/19 10:49 Dose: 50 mg Morphine Sulfate (Morphine Sulfate) 4 mg IVPUSH Q4H PRN PRN Reason: PAIN LEVEL 7 - 10 Morphine Sulfate (Morphine Sulfate) 2 mg IVPUSH Q3H PRN PRN Reason: PAIN LEVEL 4 - 6 - Objective Vital Signs: Vital Signs Temperature 98.1 F 02/21/19 10:01 Pulse Rate 124 H 02/21/19 10:02 Respiratory Rate 20 02/21/19 10:02 Blood Pressure 101/62 02/21/19 10:02 O2 Sat by Pulse Oximetry (%) 99 02/20/19 22:00 Constitutional: Yes: No Distress, Calm Neck: Yes: Supple Cardiovascular: Yes: Regular Rate and Rhythm Respiratory: Yes: Regular, Diminished, On Nasal O2 Gastrointestinal: Yes: Soft, Hypoactive Bowel Sounds, Other (Post-op) Edema: No Labs: CBC, BMP 02/21/19 05:30 02/21/19 05:30 INR, PTT INR 1.09 (0.83-1.09) 02/20/19 06:00 Problem List - Problems (1) Microcytic anemia Code(s): D50.9 - IRON DEFICIENCY ANEMIA, UNSPECIFIED (2) Atrial fibrillation Code(s): I48.91 - UNSPECIFIED ATRIAL FIBRILLATION Qualifiers: Atrial fibrillation type: persistent Qualified Code(s): I48.1 - Persistent atrial fibrillation (3) CAD (coronary artery disease) Code(s): I25.10 - ATHSCL HEART DISEASE OF [place] CORONARY ARTERY W/O ANG PCTRS Qualifiers: Coronary Disease-Associated Artery/Lesion type: [place] artery [place] vs. transplanted heart: [place] heart Associated angina: without angina Qualified Code(s): I25.10 - Atherosclerotic heart disease of [place] coronary artery without angina pectoris (4) CVA (cerebral vascular accident) Code(s): I63.9 - CEREBRAL INFARCTION, UNSPECIFIED Qualifiers: CVA mechanism: unspecified Qualified Code(s): I63.9 - Cerebral infarction, unspecified (5) HTN (hypertension) Code(s): I10 - ESSENTIAL (PRIMARY) HYPERTENSION Qualifiers: Hypertension type: essential hypertension Qualified Code(s): I10 - Essential (primary) hypertension (6) Hyperthyroidism Code(s): E05.90 - THYROTOXICOSIS, UNSP WITHOUT THYROTOXIC CRISIS OR STORM (7) Parkinson disease Code(s): G20 - PARKINSON'S DISEASE (8) Colonic mass Code(s): K63.9 - DISEASE OF INTESTINE, UNSPECIFIED (9) S/P left hemicolectomy Code(s): Z90.49 - ACQUIRED ABSENCE OF OTHER SPECIFIED PARTS OF DIGESTIVE TRACT (10) Helicobacter pylori gastritis Code(s): K29.70 - GASTRITIS, UNSPECIFIED, WITHOUT BLEEDING; B96.81 - HELICOBACTER PYLORI THE CAUSE OF DISEASES CLASSD ELSWHR (11) Malignant neoplasm of left colon Code(s): C18.6 - MALIGNANT NEOPLASM OF DESCENDING COLON Assessment/Plan 02/04/2018 Echo: Normal LV systolic function, mild LVH, mildly dilated ascending thoacic aprta, tr MR, tr TR and trace pericardial effusion DON: Normal LV size and fxnmild MR, TR, mod AR, tr-mild VA 1. POD#1 Left hemicolectomy for invasive adenocarcinoma 2. Coronary artery disease angina pectoris 3. Diastolic left ventricular dysfunction with chronic class I [place] [employer] classification left ventricular failure compensated euvolemic 4. Paroxysmal atrial fibrillation [id number] of 6, currently in sinus rhythm off NOAC's, previous DCCV 5. HTN/HCVD 6. Diabetes mellitus 7. Parkinson's disease 8. Hyperthyroidism 9. History of reactive airway disease/bronchial asthma 10. H. pylori gastritis PLAN: 1. F/u pathology, oncology f/u 2. Continue Toprol XL 50 qd, and resume losartan as hemodynamics tolerate. Eliquis to be resumed once post-op hemostasis has been achieved 3. Monitor CBC post transfusion to maintain Hgb > 8.0
[2019-02-21] MEDS: BENZOCAINE/MENTH/CETYLPYRD CL 1 EACH LOZENGE MM PRN ×2 (15:00→21:06)
--- NOTE | 2019-02-21 15:04 | PN ---
Progress Note (short form) - Note Progress Note: Anesthesia post op note, S/P Sigmoid resection under GA and TAP block with exparel. Pat seen and examined. Pain well cintrolled, 4-03/30. VSS. NPO. C/O sore throat and mouth dryness, has been using Lozenge with some alleviation. Reassured. no apparent post anesthesia complications. Continued care as per primary team.
[2019-02-21] MEDS ORDERED: SODIUM CHLORIDE 250 ML IV STA (15:05)
--- NOTE | 2019-02-21 15:53 | PN ---
Teaching Attending Note Name of Resident: Roxann Garza ATTENDING PHYSICIAN STATEMENT I saw and evaluated the patient. I reviewed the resident's note and discussed the case with the resident. I agree with the resident's findings and plan as documented. SUBJECTIVE:seen around 10 am abd pain, no flatus, no CERRATO , no N/V. reports SOB due to abd pain OBJECTIVE: NAD , awake, alert, cooperative CV: RRR, mild distention of R sided neck veins Lungs: CTAB Abd: distended, absent BS. mid ine surgical dressing . TTP in all quadrants Ext : no edema or erythema ASSESSMENT AND PLAN: 83 y/o lady with h/o A fib, s/p cardioversion, on AC, DM, CHF, hypertension, hyperthyroidism, heart failure, and family hx of Dalton syndrome who presented with anemia and was found to have colon cancer 1- Invasive adenocarcinoma of colon, s/p partial collectomy . still no flatus and has uncontrolled pain. - increase morphine to 2 , and 4 mg PRN - add IV tylenol - monitor abd exam . - CT chest/A/P reviewed. medastinal lymphadenopathy to be followed - further w/u and treatment plan for her cancer as out pt - d/w daughter , who stated that patient is to be informed of her diagnosis after recovery form her surgery - leukocytosis is likley a stress reaction to the surgery. no fever . monitor off Abx 2- H/o Afib: cont Bb and eliquis 3- reported h/o of heart failure : looks euvolemic now. has slight distention of neck vessles. - hold lasix while hydrating - follow Cxray due to miild SOB ( likely due to pain) - will decrease IVF in am 4- Hyperkalemia: repeat and treat is worse 5- h/o hyperthyroidism; TSH is slightly elevated. - cont methimazole at the new dose daily HLOC
[2019-02-21] MEDS: ACETAMINOPHEN 1000 MG/100 ML VIAL (NON FORMULARY) IVPB PRN (16:55)
[2019-02-21] MEDS: INSULIN SLIDING SCALE (NOVOLOG) 1 VIAL SQ SCH ×2 (16:59→21:05)
[2019-02-21] MEDS ORDERED: INSULIN (NOVOLOG) ASPART 100 UNITS/ML 10ML VIAL ONE (20:48)
[2019-02-21] MEDS ORDERED: PT OWN MED DRAWER 7, Y5N ONE (21:01)
[2019-02-21] MEDS ORDERED: APIXABAN 5 MG TABLET PO SCH (22:00)
[2019-02-22] MEDS: MORPHINE SULFATE 2 MG/ML VIAL IVPUSH PRN ×3 (01:07→20:16)
[2019-02-22] MEDS: INSULIN SLIDING SCALE (NOVOLOG) 1 VIAL SQ SCH ×4 (06:07→22:35)
[2019-02-22] MEDS: LACTATED RINGERS SOLUTION 1,000 ML IV SCH (06:44)
[2019-02-22] MEDS: ACETAMINOPHEN 1000 MG/100 ML VIAL (NON FORMULARY) IVPB PRN ×2 (07:51→19:00)
--- NOTE | 2019-02-22 08:07 | PN ---
Progress Note (short form) - Note Progress Note: POD2, s/p Left colectomy with splenic flexure takedown Pt seen and examined. Daughter at bedside. Pts daughter states pt has been in constant pain with only minimal relief with pain regimen. Has not been oob yet due to pain. NPO. Leos in place. No flatus yet. Denies cp/sob, n/v/d, calf pain. Vital Signs Temp 98.4 F 02/22/19 06:55 Pulse 110 H 02/22/19 06:55 Resp 20 02/22/19 06:55 BP 101/70 02/22/19 06:55 Pulse Ox 100 02/21/19 21:00 Intake & Output 02/21/19 02/21/19 02/22/19 11:59 23:59 11:59 Intake Total 1550 Output Total 220 300 500 Balance -220 1250 -500 Intake: IV 1250 Lactated Ringers Solution 1000 1,000 ml @ 125 mls/hr IV ASDIR SRIKANTH Rx#: [id number] Normal Saline - 250 ml @ 250 250 mls/hr IV ASDIR STA Rx#:[id number] IVPB 100 Oral 200 Output: Urine 220 300 500 Leos 500 Void 220 300 Other: Voiding Method Indwelling Catheter Toilet # Unmeasured Voids Void 3 Bowel Movement No CBC, BMP 02/21/19 05:30 02/21/19 17:10 CBC, BMP 02/22/19 07:43 02/22/19 07:43 Gen: writhing in pain Resp: Unlabored on RA, cta b/l anteriorly CV: tachy, irregularly irregular Abdo: soft +TTP throughout, Dressing removed, incision c/d/i, lucius in place, no erythema or drainage. No ecchymosis Ext: scds in place and on b/l le's A/P: 83 y/o F w/ PMHx Parkinson's syndrome, cervical cancer s/p hysterectomy/b/ l salpingoophrectomy, afib on eliquis, HTN, Hyperthyroidism, recurrent UTI admitted 02/14 for workup after being sent by GI for worsening anemia and pallor , now s/p EGD 02/16 revealing colon mass, now POD 2, Left colectomy with splenic flexure takedown. 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
--- NOTE | 2019-02-22 08:12 | PN ---
Physical Exam: SUBJECTIVE: Patient seen and examined at bedside- patient is in a lot of pain and had trouble sleeping throughout the night because of the pain; she still has not passed flatus and she is having some slight nausea OBJECTIVE: Vital Signs Period Temp Pulse Resp BP Sys/Ugarte Pulse Ox Last 24 Hr 97.7 F-98.9 F 80-124 20-22 80-130/48-76 95-100 GENERAL: The patient is awake, alert, in slight acute distress. EYES: PEERLA: EOMI no scleral icterus . NECK: no JVD; no lymphadenopathy. LUNGS: dimished breath sounds HEART:slightly tachycardic, regular, S1, S2 without murmur, rub or gallop. ABDOMEN: Soft, tender to palpation throughout dressing c/d/i hypoactive BS EXTREMITIES: 2+ pulses, warm, well-perfused, no edema. PSYCH: Normal mood, normal affect. SKIN: Warm, dry, normal turgor, no rashes or lesions noted Laboratory Results - last 24 hr 02/21/19 02/21/19 02/21/19 16:43 17:10 20:56 Potassium 4.7 POC Glucometer 102 111 02/22/19 06:06 Potassium POC Glucometer 97 Active Medications Generic Name Dose Route Start Last Admin Trade Name Freq PRN Reason Stop Dose Admin Acetaminophen 1,000 mg 02/21/19 11:22 02/22/19 07:51 Ofirmev Injection - IVPB 1,000 mg Q6H PRN Administration PAIN 1-3 Alvimopan 12 mg 02/21/19 10:00 02/21/19 21:02 Entereg Capsule (Restricted) - PO 12 mg BID SRIKANTH Administration Apixaban 5 mg 02/21/19 22:00 02/21/19 20:59 Eliquis - PO 5 mg BID SRIKANTH Administration Ascorbic Acid 500 mg 02/21/19 10:00 02/21/19 10:49 Vitamin C - PO 500 mg DAILY SRIKANTH Administration Benzocaine/Menthol 1 each 02/21/19 12:50 02/21/19 21:06 Cepacol Lozenge - MM 1 each PRN PRN Administration SORE THROAT Ferrous Sulfate 325 mg 02/21/19 10:00 02/21/19 10:49 Feosol - PO 325 mg DAILY SRIKANTH Administration Insulin Aspart 1 vial 02/21/19 16:30 02/22/19 06:07 Novolog Vial Sliding Scale - SQ Not Given ACHS SRIKANTH Protocol Methimazole 5 mg 02/21/19 10:00 02/21/19 12:31 Tapazole - PO 5 mg DAILY SRIKANTH Administration Metoprolol Succinate 50 mg 02/21/19 10:00 02/21/19 10:49 Toprol Xl - PO 50 mg DAILY SRIKANTH Administration Morphine Sulfate 4 mg 02/21/19 11:23 02/22/19 01:07 Morphine Sulfate IVPUSH 4 mg Q4H PRN Administration PAIN LEVEL 7 - 10 Morphine Sulfate 2 mg 02/21/19 11:23 Morphine Sulfate IVPUSH Q3H PRN PAIN LEVEL 4 - 6 Pantoprazole Sodium 40 mg 02/22/19 10:00 Protonix Iv IVPUSH DAILY SRIKANTH ASSESSMENT/PLAN: 83 y/o female with PMH of A fib on eliquis, DM, HTN, hyperthyroidism, who presented to the ED with worsening abdominal pain, weakness, anemia found to have a colonic mass #Colonic mass patient found to have a near obstruction descending colonic mass -POD #2 left colectomy with splenic flexure takedown -incentive spirometer; dilaudid HEAT REGULATOR -EGD/colonscopy path back showing tubular adeonma X3 consistent with adenocarcinoma -heme/onc on board- family we need to have genetic testing -family discussion will need to be have #Microcytic Anemia likely 2/2 colonic mass monitor Hgb follow up a CBC at 2pm- tranfuse if Hgb <8 since patient is cardiac patient #DM ISS BGMS ACHS #Afib holding patient eliquis in light of bleeding c/w toprol 50 daily #HTN c/w toprol 50 daily #CHF stable for now c/w lasix 20 daily #Hyperthyroidism methimazole 5mg TID F/E/N' NPO Problem List - Problems (1) Microcytic anemia Code(s): D50.9 - IRON DEFICIENCY ANEMIA, UNSPECIFIED (2) Atrial fibrillation Code(s): I48.91 - UNSPECIFIED ATRIAL FIBRILLATION Qualifiers: Atrial fibrillation type: persistent Qualified Code(s): I48.1 - Persistent atrial fibrillation (3) CAD (coronary artery disease) Code(s): I25.10 - ATHSCL HEART DISEASE OF [place] CORONARY ARTERY W/O ANG PCTRS Qualifiers: Coronary Disease-Associated Artery/Lesion type: [place] artery [place] vs. transplanted heart: [place] heart Associated angina: without angina Qualified Code(s): I25.10 - Atherosclerotic heart disease of [place] coronary artery without angina pectoris (4) CHF (congestive heart failure) Code(s): I50.9 - HEART FAILURE, UNSPECIFIED Visit type - Emergency Visit Emergency Visit: Yes ED Registration Date: 02/15/19 Care time: The patient presented to the Emergency Department on the above date and was hospitalized for further evaluation of their emergent condition. - New Patient This patient is new to me today: No - Critical Care Critical Care patient: No
[2019-02-22] MEDS ORDERED: HYDROmorphone *PCA* 10MG/50ML DISP.SYRIN PCA SCH (08:30)
[2019-02-22 08:43] LABS: HEMATOCRIT 23.1 % (32.4-45.2); MCH 22.5 pg (25.7-33.7); MCHC 30.3 g/dl (32.0-36.0); MEAN CELL VOLUME 74.1 fl (80-96); MEAN PLT VOLUME 7.7 fl (7.5-11.1); PLATELET COUNT 233 K/MM3 (134-434); RBC 3.12 M/mm3 (3.60-5.2); WHITE BLOOD COUNT 12.9 K/mm3 (4.0-10.0)
[2019-02-22 08:52] LABS: ANION GAP 5 MMOL/L (8-16); BLOOD UREA NITROGEN 18 mg/dL (7-18); CALCIUM 8.1 mg/dL (8.5-10.1); CHLORIDE 107 mmol/L (98-107); CO2 29 mmol/L (21-32); CREATININE 0.8 mg/dL (0.55-1.3); GLUCOSE,RANDOM 101 mg/dL (74-106); PHOSPHOROUS 3.1 mg/dL (2.5-4.9); POTASSIUM 5.2 mmol/L (3.5-5.1); SODIUM 142 mmol/L (136-145)
[2019-02-22] MEDS: FERROUS SO4 325 MG TABLET (FP) PO SCH (09:43)
[2019-02-22] MEDS: METHIMAZOLE 5 MG TABLET (FP) PO SCH (09:43)
[2019-02-22] MEDS: ALVIMOPAN 12 MG CAP PO SCH ×2 (09:43→22:35)
[2019-02-22] MEDS: ASCORBIC ACID 500 MG TABLET (FP) PO SCH (09:43)
[2019-02-22] MEDS: PANTOPRAZOLE SODIUM 40 MG VIAL IVPUSH SCH (09:43)
[2019-02-22] MEDS: ONDANSETRON 4 MG/2 ML VIAL IVPUSH PRN (10:42)
--- NOTE | 2019-02-22 11:52 | PN ---
Teaching Attending Note Name of Resident: Roxann Garza ATTENDING PHYSICIAN STATEMENT I saw and evaluated the patient. I reviewed the resident's note and discussed the case with the resident. I agree with the resident's findings and plan as documented. SUBJECTIVE: Complains of ongoing abdominal discomfort. No flatus/BM. No fever/ chills. Nausea, no vomiting. OBJECTIVE: Afebrile, Tachycardia, Tachypnea Last Vital Signs Temp Pulse Resp BP Pulse Ox 98.9 F 113 H 24 H 105/58 L 100 02/22/19 09:28 02/22/19 09:28 02/22/19 09:28 02/22/19 09:28 02/21/19 21:00 HEENT - Atramatic, Normocephalic Heart - S1, S2, Tachy Lungs - decreased air entry at bases Abdomen - High BMI, midline laparotomy surgical incision site dressed. Generalized tenderness. Bowel Sounds hypoactive Extremities - no calf tenderness Neuro - AAO x 3. Moving all 4 extremities Laboratory Results - last 24 hr 02/21/19 02/21/19 02/21/19 16:43 17:10 20:56 WBC RBC Hgb Hct MCV MCH MCHC RDW Plt Count MPV Sodium Potassium 4.7 Chloride Carbon Dioxide Anion Gap BUN Creatinine Creat Clearance w eGFR POC Glucometer 102 111 Random Glucose Calcium Phosphorus Magnesium 02/22/19 02/22/19 02/22/19 06:06 07:43 07:43 WBC 12.9 H RBC 3.12 L Hgb 7.0 L Hct 23.1 L D MCV 74.1 L MCH 22.5 L MCHC 30.3 L RDW 29.0 H Plt Count 233 MPV 7.7 Sodium 142 Potassium 5.2 H Chloride 107 Carbon Dioxide 29 Anion Gap 5 L BUN 18 Creatinine 0.8 Creat Clearance w eGFR 68.67 POC Glucometer 97 Random Glucose 101 Calcium 8.1 L Phosphorus 3.1 Magnesium 2.0 02/22/19 11:27 WBC RBC Hgb Hct MCV MCH MCHC RDW Plt Count MPV Sodium Potassium Chloride Carbon Dioxide Anion Gap BUN Creatinine Creat Clearance w eGFR POC Glucometer 108 Random Glucose Calcium Phosphorus Magnesium Current Medications Generic Name Dose Route Start Last Admin Trade Name Freq PRN Reason Stop Dose Admin Acetaminophen 1,000 mg 02/21/19 11:22 02/22/19 07:51 Ofirmev Injection - IVPB 1,000 mg Q6H PRN Administration PAIN 1-3 Alvimopan 12 mg 02/21/19 10:00 02/22/19 09:43 Entereg Capsule (Restricted) - PO 12 mg BID SRIKANTH Administration Apixaban 5 mg 02/21/19 22:00 02/21/19 20:59 Eliquis - PO 5 mg BID SRIKANTH Administration Ascorbic Acid 500 mg 02/21/19 10:00 02/22/19 09:43 Vitamin C - PO 500 mg DAILY SRIKANTH Administration Benzocaine/Menthol 1 each 02/21/19 12:50 02/21/19 21:06 Cepacol Lozenge - MM 1 each PRN PRN Administration SORE THROAT Ferrous Sulfate 325 mg 02/21/19 10:00 02/22/19 09:43 Feosol - PO 325 mg DAILY SRIKANTH Administration Insulin Aspart 1 vial 02/21/19 16:30 02/22/19 06:07 Novolog Vial Sliding Scale - SQ Not Given ACHS [facility] Protocol Methimazole 5 mg 02/21/19 10:00 02/22/19 09:43 Tapazole - PO 5 mg DAILY SRIKANTH Administration Metoprolol Succinate 50 mg 02/21/19 10:00 02/22/19 09:43 Toprol Xl - PO 50 mg DAILY SRIKANTH Administration Morphine Sulfate 2 mg 02/22/19 09:10 02/22/19 11:01 Morphine Sulfate IVPUSH 2 mg Q4H PRN Administration PAIN LEVEL 6-10 Ondansetron HCl 4 mg 02/22/19 10:19 02/22/19 10:42 Zofran Injection IVPUSH 4 mg Q6H PRN Administration NAUSEA Pantoprazole Sodium 40 mg 02/22/19 10:00 02/22/19 09:43 Protonix Iv IVPUSH 40 mg DAILY SRIKANTH Administration ASSESSMENT AND PLAN: 83 year old female with history of Parkinson's Disease, Cervical Ca s/p WILNER/BSO , Atrial Fibrillation s/p cardioversion, on AC with Eliquis, DM2, CHF, Hypertension, Hyperthyroidism, family hx of [place] syndrome, presented with anemia and was found to have Colon Cancer. 1. Adenocarcinoma of colon, newly diagnosed, POD 2 s/p hemicolectomy with splenic flexure take-down with anastamosis. No Flatus/BM post-op with ongoing abdominal pain and nausea. Morphine Sulfate prn Continue IV hydration NPO 2. Acute on Chronic Blood Loss Anemia with Microcytosis sec to Colon Ca + recent surgery H/H borderline at 06/12, MCV 74 - No evidence of acute blood loss. On Iron supplementation Eliquis held pending repeat H/H Will transfuse PRN 3. Chronic Diastolic CHF - no evidence of acute decompensation. Gentle IV hydration as patient is NPO. Lasix held. 4. Chronic Gastritis s/p EGD 02/16 - Continue PPI. If Hpylori positive, will need triple therapy. 5. Hyperkalemia - persistent - will repeat, if still elevated, will treat with Insulin/Dextrose. 6. Paroxysmal Atrial Fibrillation - Continue Metoprolol. Eliquis held pending repeat H/H. 7. Hyperthyroidism - Continue Methimazole. 8. DM 2 -Maintain on sliding scale Novolog 9. Mediatinal Adenopathy on CT Chest - will need out-patient follow up. DVT Px - on Eliquis. Incentive Spirometry PT DC Berry catheter
--- NOTE | 2019-02-22 12:29 | OP ---
DATE OF OPERATION: 02/20/2019 PREOPERATIVE DIAGNOSIS: Colonic neoplasm of the sigmoid colon. POSTOPERATIVE DIAGNOSIS: Colonic neoplasm of the hepatic flexure of the left colon. PROCEDURE: Left colectomy and mobilization of splenic flexure. SURGEON: John Alvarado MD PROFESSOR OF [employer]: Steve Escalona PA-C, and Anuradha Escalona PA-C. ANESTHESIA: General. OPERATIVE FINDINGS: There was a near totally obstructing lesion in the splenic flexure of the left colon. There was evidence of Adeola ink tattooing from the colonoscopy and biopsy. The rest of the findings were unremarkable. There was no evidence of liver metastatic disease or malignant ascites or carcinomatosis or grossly palpable lesions in the colon proximal to the splenic flexure. PROCEDURE: The patient was placed on the operating room table in supine position and after the induction of general anesthesia and placement of a Berry catheter and sequential compression devices on the patient's lower extremities. The abdomen was prepped with ChloraPrep and draped in sterile fashion. A timeout was taken, and the abdomen was entered through a midline incision starting above and extending to below the umbilicus. Exploration was carried out, and the previously noted findings were observed. It should be noted that the lesion was described to be pre-op 50 cm from the anla verge and in the sigmoid colon and it indeed was more proximal in the splenic flexure of left colon. A decision was made for a left colectomy, and the colon was divided using a ROBIN stapling device just distal to the right branch of the middle colic artery. Similarly, a point of transection was identified distally at the proximal sigmoid and the colon divided there as well using the ROBIN stapling device. The colon was then mobilized along the white line of [place] starting laterally, and the splenic flexure mobilized taking down the ligamentous attachments of the splenic flexure to the spleen. This was done using electrocautery and the LigaSure device. The lesser sac was entered and the omentum and transverse colon divided from the greater curvature of the stomach using the LigaSure device as well. Next, the mesentery was serially divided using the LigaSure device and once completed the specimen was passed off the operative field and sent for pathological examination marking the proximal colon with a single silk suture. Hemostasis was checked for and noted to be good, and then anastomosis carried out between the transverse colon and mid sigmoid in an end- to-end fashion using the ROBIN stapling device and TA stapling device. Hemostasis was checked for and noted to be good, and then the wound was copiously irrigated with sterile saline. At this point, needle, instrument, and sponge count were done and verified as correct, and prior to closure, gowns, gloves, instruments, and drapes were changed. The abdomen was then closed in a single layer using continuous 0 looped Maxon starting proximally, distally, and meeting in the middle. Counts were verified again. The subcutaneous tissue was copiously irrigated and the skin edges reapproximated with surgical lucius. Betadine ointment and dry sterile dressings were placed. Procedure terminated at this point, and the patient aroused from general anesthesia and transferred to the postanesthesia care unit in stable condition awake and alert. ESTIMATED BLOOD LOSS: 150 mL. REPLACEMENTS: Crystalloid. DRAINS: None. SPECIMENS: Left colon to Pathology. I, John Alvarado MD, was physically present in the operating room from the time the patient was placed on the operating room table until she was transferred to the postanesthesia care unit in my accompaniment. MD CHELSEY Morin/[id number] MTDD
--- NOTE | 2019-02-22 13:46 | PN ---
Progress Note, Physician History of Present Illness: POS#2 S/P Left hemicolectomy with splenic flexure takedown, no flatus yet. - Current Medication List Current Medications: Active Medications Acetaminophen (Ofirmev Injection -) 1,000 mg IVPB Q6H PRN PRN Reason: PAIN 1-3 Last Admin: 02/22/19 07:51 Dose: 1,000 mg Alvimopan (Entereg Capsule (Restricted) -) 12 mg PO BID [facility] Last Admin: 02/22/19 09:43 Dose: 12 mg Apixaban (Eliquis -) 5 mg PO BID [facility] Last Admin: 02/21/19 20:59 Dose: 5 mg Ascorbic Acid (Vitamin C -) 500 mg PO DAILY [facility] Last Admin: 02/22/19 09:43 Dose: 500 mg Benzocaine/Menthol (Cepacol Lozenge -) 1 each MM PRN PRN PRN Reason: SORE THROAT Last Admin: 02/21/19 21:06 Dose: 1 each Ferrous Sulfate (Feosol -) 325 mg PO DAILY [facility] Last Admin: 02/22/19 09:43 Dose: 325 mg Lactated Ringer's (Lactated Ringers Solution) 1,000 ml in 1,000 mls @ 100 mls/ hr IV ASDIR [facility] Insulin Aspart (Novolog Vial Sliding Scale -) 1 vial SQ ACHS [facility]; Protocol Last Admin: 02/22/19 12:39 Dose: Not Given Methimazole (Tapazole -) 5 mg PO DAILY [facility] Last Admin: 02/22/19 09:43 Dose: 5 mg Metoprolol Succinate (Toprol Xl -) 50 mg PO DAILY [facility] Last Admin: 02/22/19 09:43 Dose: 50 mg Morphine Sulfate (Morphine Sulfate) 2 mg IVPUSH Q4H PRN PRN Reason: PAIN LEVEL 6-10 Last Admin: 02/22/19 11:01 Dose: 2 mg Ondansetron HCl (Zofran Injection) 4 mg IVPUSH Q6H PRN PRN Reason: NAUSEA Last Admin: 02/22/19 10:42 Dose: 4 mg Pantoprazole Sodium (Protonix Iv) 40 mg IVPUSH DAILY [facility] Last Admin: 02/22/19 09:43 Dose: 40 mg - Objective Vital Signs: Vital Signs Temperature 98.9 F 02/22/19 09:28 Pulse Rate 113 H 02/22/19 09:28 Respiratory Rate 24 H 02/22/19 09:28 Blood Pressure 105/58 L 02/22/19 09:28 O2 Sat by Pulse Oximetry (%) 95 02/22/19 09:00 Constitutional: Yes: No Distress, Calm Neck: Yes: Supple Cardiovascular: Yes: Pulse Irregular Respiratory: Yes: Regular, Diminished Gastrointestinal: Yes: Soft, Hypoactive Bowel Sounds Edema: No Labs: CBC, BMP 02/22/19 07:43 02/22/19 07:43 INR, PTT INR 1.09 (0.83-1.09) 02/20/19 06:00 Problem List - Problems (1) Microcytic anemia Code(s): D50.9 - IRON DEFICIENCY ANEMIA, UNSPECIFIED (2) Atrial fibrillation Code(s): I48.91 - UNSPECIFIED ATRIAL FIBRILLATION Qualifiers: Atrial fibrillation type: persistent Qualified Code(s): I48.1 - Persistent atrial fibrillation (3) CAD (coronary artery disease) Code(s): I25.10 - ATHSCL HEART DISEASE OF [place] CORONARY ARTERY W/O ANG PCTRS Qualifiers: Coronary Disease-Associated Artery/Lesion type: [place] artery [place] vs. transplanted heart: [place] heart Associated angina: without angina Qualified Code(s): I25.10 - Atherosclerotic heart disease of [place] coronary artery without angina pectoris (4) CVA (cerebral vascular accident) Code(s): I63.9 - CEREBRAL INFARCTION, UNSPECIFIED Qualifiers: CVA mechanism: unspecified Qualified Code(s): I63.9 - Cerebral infarction, unspecified (5) HTN (hypertension) Code(s): I10 - ESSENTIAL (PRIMARY) HYPERTENSION Qualifiers: Hypertension type: essential hypertension Qualified Code(s): I10 - Essential (primary) hypertension (6) Hyperthyroidism Code(s): E05.90 - THYROTOXICOSIS, UNSP WITHOUT THYROTOXIC CRISIS OR STORM (7) Parkinson disease Code(s): G20 - PARKINSON'S DISEASE (8) Colonic mass Code(s): K63.9 - DISEASE OF INTESTINE, UNSPECIFIED (9) S/P left hemicolectomy Code(s): Z90.49 - ACQUIRED ABSENCE OF OTHER SPECIFIED PARTS OF DIGESTIVE TRACT (10) Helicobacter pylori gastritis Code(s): K29.70 - GASTRITIS, UNSPECIFIED, WITHOUT BLEEDING; B96.81 - HELICOBACTER PYLORI THE CAUSE OF DISEASES CLASSD ELSWHR (11) Malignant neoplasm of left colon Code(s): C18.6 - MALIGNANT NEOPLASM OF DESCENDING COLON Assessment/Plan 02/04/2018 Echo: Normal LV systolic function, mild LVH, mildly dilated ascending thoacic aprta, tr MR, tr TR and trace pericardial effusion DON: Normal LV size and fxnmild MR, TR, mod AR, tr-mild [place] 1. POD#2 Left hemicolectomy for invasive adenocarcinoma 2. Coronary artery disease angina pectoris 3. Diastolic left ventricular dysfunction with chronic class I [place] [employer] classification left ventricular failure compensated euvolemic 4. Paroxysmal atrial fibrillation [id number] of 6, currently in sinus rhythm off NOAC's, previous DCCV 5. HTN/HCVD 6. Diabetes mellitus 7. Parkinson's disease 8. Hyperthyroidism 9. History of reactive airway disease/bronchial asthma 10. H. pylori gastritis PLAN: 1. F/u pathology, oncology f/u 2. Continue Toprol XL 50 qd, and resume losartan as hemodynamics tolerate. Eliquis to be resumed once post-op hemostasis has been achieved 3. Monitor CBC post transfusion to maintain Hgb > 8.0 4. Await recovery of bowel function
[2019-02-22 15:13] LABS: HEMATOCRIT 23.3 % (32.4-45.2); MCH 22.4 pg (25.7-33.7); MCHC 29.9 g/dl (32.0-36.0); MEAN CELL VOLUME 74.8 fl (80-96); MEAN PLT VOLUME 7.6 fl (7.5-11.1); PLATELET COUNT 211 K/MM3 (134-434); RBC 3.11 M/mm3 (3.60-5.2); RDW 29.3 % (11.6-15.6); WHITE BLOOD COUNT 12.6 K/mm3 (4.0-10.0)
--- NOTE | 2019-02-22 16:12 | PN ---
Progress Note (short form) - Note Progress Note: S/P hemicolectomy NPO Getting blood transfusion No BM, no Flatus yet Vital Signs Period Temp Pulse Resp BP Sys/Ugarte Pulse Ox Last 24 Hr 98.4 F-98.9 F 80-124 20-24 101-130/48-76 95-100 PE: AOx3 Neck: Supple, No JVD HEENT: EOMI, involuntary movement of head Lungs: CTA CVS: S1S2 Abd: Decreased BS Ext: No edema, +tremors of hands CMP Sodium 142 mmol/L (136-145) 02/22/19 07:43 Potassium 5.0 mmol/L (3.5-5.1) 02/22/19 14:50 Chloride 107 mmol/L (98-107) 02/22/19 07:43 Carbon Dioxide 29 mmol/L (21-32) 02/22/19 07:43 Anion Gap 5 MMOL/L (8-16) L 02/22/19 07:43 BUN 18 mg/dL (7-18) 02/22/19 07:43 Creatinine 0.8 mg/dL (0.55-1.3) 02/22/19 07:43 Creat Clearance w eGFR 68.67 (>60) 02/22/19 07:43 POC Glucometer 108 UNITS (80-120) 02/22/19 11:27 Random Glucose 101 mg/dL (74-106) 02/22/19 07:43 Calcium 8.1 mg/dL (8.5-10.1) L 02/22/19 07:43 Phosphorus 3.1 mg/dL (2.5-4.9) 02/22/19 07:43 Magnesium 2.0 mg/dL (1.8-2.4) 02/22/19 07:43 Iron 20 ug/dL (27-139) L 02/14/19 19:05 TIBC 459 ug/dL (250-450) H 02/14/19 19:05 Iron Saturation 4 % (15-55) L 02/14/19 19:05 Ferritin 3.5 ng/ml (8-388) L 02/14/19 08:30 Total Bilirubin 0.3 mg/dL (0.2-1) 02/19/19 07:00 AST 17 U/L (15-37) 02/19/19 07:00 ALT 14 U/L (13-61) 02/19/19 07:00 Alkaline Phosphatase 82 U/L (45-117) 02/19/19 07:00 LD Total 183 U/L (84-246) 02/14/19 19:05 Troponin I 0.02 ng/ml (0.00-0.05) 02/14/19 12:18 B-Natriuretic Peptide 1625.8 pg/ml (5-450) H 02/14/19 11:46 Total Protein 5.8 g/dl (6.4-8.2) L 02/19/19 07:00 Albumin 2.9 g/dl (3.4-5.0) L 02/19/19 07:00 Carcinoembryonic Ag 30.7 ng/mL (0.0-4.7) H 02/16/19 06:00 TSH 3.99 uIU/ml (0.358-3.74) H 02/19/19 07:00 Free T4 1.15 ng/dl (0.76-1.46) 02/19/19 07:00 Free T3 2.9 pg/ml (2.0-4.4) 02/19/19 07:00 Current Medications Generic Name Dose Route Start Last Admin Trade Name Freq PRN Reason Stop Dose Admin Acetaminophen 1,000 mg 02/21/19 11:22 02/22/19 07:51 Ofirmev Injection - IVPB 1,000 mg Q6H PRN Administration PAIN 1-3 Alvimopan 12 mg 02/21/19 10:00 02/22/19 09:43 Entereg Capsule (Restricted) - PO 12 mg BID SRIKANTH Administration Apixaban 5 mg 02/21/19 22:00 02/21/19 20:59 Eliquis - PO 5 mg BID SRIKANTH Administration Ascorbic Acid 500 mg 02/21/19 10:00 02/22/19 09:43 Vitamin C - PO 500 mg DAILY [facility] Administration Benzocaine/Menthol 1 each 02/21/19 12:50 02/21/19 21:06 Cepacol Lozenge - MM 1 each PRN PRN Administration SORE THROAT Ferrous Sulfate 325 mg 02/21/19 10:00 02/22/19 09:43 Feosol - PO 325 mg DAILY [facility] Administration Lactated Ringer's 1,000 ml in 1,000 mls @ 100 mls/hr 02/22/19 12:30 Lactated Ringers Solution IV ASDIR [facility] Insulin Aspart 1 vial 02/21/19 16:30 02/22/19 12:39 Novolog Vial Sliding Scale - SQ Not Given ACHS [facility] Protocol Methimazole 5 mg 02/21/19 10:00 02/22/19 09:43 Tapazole - PO 5 mg DAILY [facility] Administration Metoprolol Succinate 50 mg 02/21/19 10:00 02/22/19 09:43 Toprol Xl - PO 50 mg DAILY [facility] Administration Morphine Sulfate 2 mg 02/22/19 09:10 02/22/19 11:01 Morphine Sulfate IVPUSH 2 mg Q4H PRN Administration PAIN LEVEL 6-10 Ondansetron HCl 4 mg 02/22/19 10:19 02/22/19 10:42 Zofran Injection IVPUSH 4 mg Q6H PRN Administration NAUSEA Pantoprazole Sodium 40 mg 02/22/19 10:00 02/22/19 09:43 Protonix Iv IVPUSH 40 mg DAILY [facility] Administration AP; Hyperthyroidism Colonic mass: S/P left hemicolectomy IGT Anemia Parkinson's disease A Fib: Currently pulse regular FT4 1.15 FT3 2.9 TSH 3.99, FT4 was 1.11 on 12.22.18 Continue Methimazole 5mg daily Problem List - Problems (1) Colonic mass Code(s): K63.9 - DISEASE OF INTESTINE, UNSPECIFIED (2) Microcytic anemia Code(s): D50.9 - IRON DEFICIENCY ANEMIA, UNSPECIFIED (3) Parkinsonian syndrome Code(s): G20 - PARKINSON'S DISEASE Qualifiers: Parkinsonism type: unspecified Qualified Code(s): G20 - Parkinson's disease (4) Atrial fibrillation Code(s): I48.91 - UNSPECIFIED ATRIAL FIBRILLATION Qualifiers: Atrial fibrillation type: persistent Qualified Code(s): I48.1 - Persistent atrial fibrillation (5) Hyperthyroidism Code(s): E05.90 - THYROTOXICOSIS, UNSP WITHOUT THYROTOXIC CRISIS OR STORM
[2019-02-22] MEDS: BENZOCAINE/MENTH/CETYLPYRD CL 1 EACH LOZENGE MM PRN (16:59)
[2019-02-22] MEDS: LACTATED RINGERS SOLUTION 1,000 ML/1,000 ML INFUS.BAG IV SCH (17:20)
[2019-02-22] MEDS ORDERED: guaiFENesin/D-METHORPHAN HB 10 ML UNIT-DOSE CUPS PO ONE (18:35)
[2019-02-22] MEDS ORDERED: PT OWN MED DRAWER 7, Y5N ONE ×2 (21:22→21:48)
[2019-02-23] MEDS: MORPHINE SULFATE 2 MG/ML VIAL IVPUSH PRN ×2 (02:25→13:11)
[2019-02-23] MEDS: METHIMAZOLE 5 MG TABLET (FP) PO SCH (04:00)
[2019-02-23] MEDS: ACETAMINOPHEN 1000 MG/100 ML VIAL (NON FORMULARY) IVPB PRN ×3 (05:26→23:21)
[2019-02-23] MEDS: INSULIN SLIDING SCALE (NOVOLOG) 1 VIAL SQ SCH ×4 (06:20→21:50)
[2019-02-23 08:13] LABS: HEMATOCRIT 30.1 % (32.4-45.2); HEMOGLOBIN 9.4 GM/dL (10.7-15.3); MCHC 31.4 g/dl (32.0-36.0); MEAN CELL VOLUME 76.5 fl (80-96); MEAN PLT VOLUME 7.7 fl (7.5-11.1); PLATELET COUNT 215 K/MM3 (134-434); RBC 3.93 M/mm3 (3.60-5.2); RDW 26.4 % (11.6-15.6); WHITE BLOOD COUNT 11.1 K/mm3 (4.0-10.0)
[2019-02-23 08:42] LABS: ANION GAP 11 MMOL/L (8-16); BLOOD UREA NITROGEN 17 mg/dL (7-18); CALCIUM 8.1 mg/dL (8.5-10.1); CHLORIDE 106 mmol/L (98-107); CO2 25 mmol/L (21-32); CREATININE 0.5 mg/dL (0.55-1.3); GLUCOSE,RANDOM 88 mg/dL (74-106); MAGNESIUM 2.2 mg/dL (1.8-2.4); PHOSPHOROUS 2.8 mg/dL (2.5-4.9); POTASSIUM 4.3 mmol/L (3.5-5.1); SODIUM 142 mmol/L (136-145)
--- NOTE | 2019-02-23 08:48 | PN ---
Progress Note (short form) - Note Progress Note: 83yo F s/p Lt colectomy POD 3, pt seen and examined at bedside. Pt continues to complain of some abd pain, but more complaining of back pain and bed being uncomfortable. Pt did ambulate yesterday a little bit. Denies BM or flatus. No fever, chills, n/v. Last Vital Signs Temp Pulse Resp BP Pulse Ox 98.2 F 105 H 20 140/96 96 02/23/19 06:07 02/23/19 06:07 02/23/19 06:07 02/23/19 06:07 02/22/19 21:00 CBC, BMP 02/23/19 06:25 02/23/19 06:25 PE Gen: A&O x3 Resp: breathing comfortably Abd: soft, nondistended, mild tenderness, incision is clean with no erythema or discharge. Ext: no edema <Michele Burleson - Last Filed: 02/23/19 08:35> - Note Progress Note: Attending Surgeon POD #3 She is now having pain; mo n/v/flatus VSS AF abdo-soft; incisional tenderness labs noted path noted T3N0 IMP: stable PLAN: Await return of GI function to feed; pain now most likely post op in nature; cessation of Exparel effect; OOB. John Alvarado MD FACS <John Alvarado - Last Filed: 02/23/19 14:43> Problem List - Problems (1) S/P left hemicolectomy Assessment/Plan: Plan -continue NPO and IVF until flatus -encourage OOB/ambulate -pain control Will continue to follow Code(s): Z90.49 - ACQUIRED ABSENCE OF OTHER SPECIFIED PARTS OF DIGESTIVE TRACT <Michele Burleson - Last Filed: 02/23/19 08:35>
--- NOTE | 2019-02-23 09:19 | PN ---
Physical Exam: SUBJECTIVE: Patient seen and examined at bedside- according to patients daughter she was in a lot of pain last night ; she has still not passed flatus yet; denies CP/SOB/N/V patient was out of bed for a little yesterday OBJECTIVE: Vital Signs Period Temp Pulse Resp BP Sys/Ugarte Pulse Ox Last 24 Hr 98.2 F-99.5 F 20-115 20-24 104-140/58-96 96 GENERAL: The patient is awake, alert, and fully oriented, in no acute distress. EYES: PEERLA: EOMI; no scleral icterus NECK: no JVD: no lymphadenopathy LUNGS: Breath sounds equal, clear to auscultation bilaterally, no wheezes, no crackles, no accessory muscle use. HEART: Regular rate and rhythm, S1, S2 without murmur, rub or gallop. ABDOMEN: Soft, tenderness upon palpation; midline incision ewth dressing in place; hypoactive BS. EXTREMITIES: 2+ pulses, warm, well-perfused, no edema. . PSYCH: Normal mood, normal affect. SKIN: Warm, dry, normal turgor, no rashes or lesions noted Laboratory Results - last 24 hr 02/20/19 02/22/19 02/22/19 06:00 11:27 14:50 WBC 12.6 H RBC 3.11 L Hgb 7.0 L Hct 23.3 L MCV 74.8 L MCH 22.4 L MCHC 29.9 L RDW 29.3 H Plt Count 211 MPV 7.6 Sodium Potassium Chloride Carbon Dioxide Anion Gap BUN Creatinine Creat Clearance w eGFR POC Glucometer 108 Random Glucose Calcium Phosphorus Magnesium Blood Type O POSITIVE Antibody Screen Negative Crossmatch See Detail 02/22/19 02/22/19 02/22/19 14:50 17:09 22:34 WBC RBC Hgb Hct MCV MCH MCHC RDW Plt Count MPV Sodium Potassium 5.0 Chloride Carbon Dioxide Anion Gap BUN Creatinine Creat Clearance w eGFR POC Glucometer 93 115 Random Glucose Calcium Phosphorus Magnesium Blood Type Antibody Screen Crossmatch 02/23/19 02/23/19 02/23/19 06:17 06:25 06:25 WBC 11.1 H RBC 3.93 Hgb 9.4 L Hct 30.1 L D MCV 76.5 L MCH 24.0 L MCHC 31.4 L RDW 26.4 H Plt Count 215 MPV 7.7 Sodium 142 Potassium 4.3 Chloride 106 Carbon Dioxide 25 Anion Gap 11 BUN 17 Creatinine 0.5 L Creat Clearance w eGFR 118.12 POC Glucometer 102 Random Glucose 88 Calcium 8.1 L Phosphorus 2.8 Magnesium 2.2 Blood Type Antibody Screen Crossmatch Active Medications Generic Name Dose Route Start Last Admin Trade Name Freq PRN Reason Stop Dose Admin Alvimopan 12 mg 02/21/19 10:00 02/22/19 22:35 Entereg Capsule (Restricted) - PO 12 mg BID SRIKANTH Administration Ascorbic Acid 500 mg 02/21/19 10:00 02/22/19 09:43 Vitamin C - PO 500 mg DAILY SRIKANTH Administration Benzocaine/Menthol 1 each 02/21/19 12:50 02/22/19 16:59 Cepacol Lozenge - MM 1 each PRN PRN Administration SORE THROAT Ferrous Sulfate 325 mg 02/21/19 10:00 02/22/19 09:43 Feosol - PO 325 mg DAILY SRIKANTH Administration Lactated Ringer's 1,000 ml in 1,000 mls @ 100 mls/hr 02/22/19 12:30 02/22/19 17:20 Lactated Ringers Solution IV Not Given ASDIR [facility] Insulin Aspart 1 vial 02/21/19 16:30 02/23/19 06:20 Novolog Vial Sliding Scale - SQ Not Given ACHS [facility] Protocol Methimazole 5 mg 02/21/19 10:00 02/22/19 09:43 Tapazole - PO 5 mg DAILY SRIKANTH Administration Metoprolol Succinate 50 mg 02/21/19 10:00 02/22/19 09:43 Toprol Xl - PO 50 mg DAILY SRIKANTH Administration Morphine Sulfate 2 mg 02/22/19 09:10 02/23/19 02:25 Morphine Sulfate IVPUSH 2 mg Q4H PRN Administration PAIN LEVEL 6-10 Ondansetron HCl 4 mg 02/22/19 10:19 02/22/19 10:42 Zofran Injection IVPUSH 4 mg Q6H PRN Administration NAUSEA Pantoprazole Sodium 40 mg 02/22/19 10:00 02/22/19 09:43 Protonix Iv IVPUSH 40 mg DAILY SRIKANTH Administration ASSESSMENT/PLAN: 83 y/o female with PMH of A fib on eliquis, DM, HTN, hyperthyroidism, who presented to the ED with worsening abdominal pain, weakness, anemia found to have a colonic mass #Colonic mass patient found to have a near obstruction descending colonic mass -POD #3 left colectomy with splenic flexure takedown -incentive spirometer; morphine PRN montiel -EGD/colonscopy path back showing tubular adeonma X3 consistent with adenocarcinoma -heme/onc on board- family we need to have genetic testing -family discussion will need to be have #Microcytic Anemia patient received 2 units PRBCS yesterday monitor Hgb repeat Hgb at 2 tranfuse if Hgb <8 since patient is cardiac patient #DM ISS BGMS ACHS #Afib holding patient eliquis in light of bleeding c/w toprol 50 daily #HTN c/w toprol 50 daily #CHF stable for now c/w lasix 20 daily #Hyperthyroidism methimazole 5mg daily will need repeat TFTs as outpatient F/E/N' LR @100 monitor electrolytes NPO Problem List - Problems (1) Microcytic anemia Code(s): D50.9 - IRON DEFICIENCY ANEMIA, UNSPECIFIED (2) Atrial fibrillation Code(s): I48.91 - UNSPECIFIED ATRIAL FIBRILLATION Qualifiers: Atrial fibrillation type: persistent Qualified Code(s): I48.1 - Persistent atrial fibrillation (3) CAD (coronary artery disease) Code(s): I25.10 - ATHSCL HEART DISEASE OF [place] CORONARY ARTERY W/O ANG PCTRS Qualifiers: Coronary Disease-Associated Artery/Lesion type: [place] artery [place] vs. transplanted heart: [place] heart Associated angina: without angina Qualified Code(s): I25.10 - Atherosclerotic heart disease of [place] coronary artery without angina pectoris (4) CHF (congestive heart failure) Code(s): I50.9 - HEART FAILURE, UNSPECIFIED Visit type - Emergency Visit Emergency Visit: Yes ED Registration Date: 02/15/19 Care time: The patient presented to the Emergency Department on the above date and was hospitalized for further evaluation of their emergent condition. - New Patient This patient is new to me today: No - Critical Care Critical Care patient: No
[2019-02-23] MEDS ORDERED: PT OWN MED DRAWER 7, Y5N ONE ×2 (10:24→21:40)
[2019-02-23] MEDS: FERROUS SO4 325 MG TABLET (FP) PO SCH (10:54)
[2019-02-23] MEDS: ALVIMOPAN 12 MG CAP PO SCH ×2 (10:54→23:21)
[2019-02-23] MEDS: ASCORBIC ACID 500 MG TABLET (FP) PO SCH (10:54)
[2019-02-23] MEDS: PANTOPRAZOLE SODIUM 40 MG VIAL IVPUSH SCH (10:58)
--- NOTE | 2019-02-23 11:11 | PN ---
Progress Note, Physician History of Present Illness: POS#3 S/P Left hemicolectomy with splenic flexure takedown, no flatus yet. - Current Medication List Current Medications: Active Medications Alvimopan (Entereg Capsule (Restricted) -) 12 mg PO BID [facility] Last Admin: 02/23/19 10:54 Dose: 12 mg Ascorbic Acid (Vitamin C -) 500 mg PO DAILY [facility] Last Admin: 02/23/19 10:54 Dose: 500 mg Benzocaine/Menthol (Cepacol Lozenge -) 1 each MM PRN PRN PRN Reason: SORE THROAT Last Admin: 02/22/19 16:59 Dose: 1 each Ferrous Sulfate (Feosol -) 325 mg PO DAILY [facility] Last Admin: 02/23/19 10:54 Dose: 325 mg Lactated Ringer's (Lactated Ringers Solution) 1,000 ml in 1,000 mls @ 100 mls/ hr IV ASDIR [facility] Last Admin: 02/22/19 17:20 Dose: Not Given Insulin Aspart (Novolog Vial Sliding Scale -) 1 vial SQ ACHS [facility]; Protocol Last Admin: 02/23/19 06:20 Dose: Not Given Methimazole (Tapazole -) 5 mg PO DAILY [facility] Last Admin: 02/22/19 09:43 Dose: 5 mg Metoprolol Succinate (Toprol Xl -) 50 mg PO DAILY [facility] Last Admin: 02/23/19 10:55 Dose: 50 mg Morphine Sulfate (Morphine Sulfate) 2 mg IVPUSH Q4H PRN PRN Reason: PAIN LEVEL 6-10 Last Admin: 02/23/19 02:25 Dose: 2 mg Ondansetron HCl (Zofran Injection) 4 mg IVPUSH Q6H PRN PRN Reason: NAUSEA Last Admin: 02/22/19 10:42 Dose: 4 mg Pantoprazole Sodium (Protonix Iv) 40 mg IVPUSH DAILY [facility] Last Admin: 02/23/19 10:58 Dose: 40 mg - Objective Vital Signs: Vital Signs Temperature 98.2 F 02/23/19 06:07 Pulse Rate 105 H 02/23/19 06:07 Respiratory Rate 20 02/23/19 06:07 Blood Pressure 140/96 02/23/19 06:07 O2 Sat by Pulse Oximetry (%) 96 02/22/19 21:00 Constitutional: Yes: No Distress, Calm Neck: Yes: Supple Cardiovascular: Yes: Regular Rate and Rhythm Respiratory: Yes: Regular, Diminished, On Nasal O2 Gastrointestinal: Yes: Soft, Hypoactive Bowel Sounds Edema: No Labs: CBC, BMP 02/23/19 06:25 02/23/19 06:25 INR, PTT INR 1.09 (0.83-1.09) 02/20/19 06:00 Problem List - Problems (1) Microcytic anemia Code(s): D50.9 - IRON DEFICIENCY ANEMIA, UNSPECIFIED (2) Atrial fibrillation Code(s): I48.91 - UNSPECIFIED ATRIAL FIBRILLATION Qualifiers: Atrial fibrillation type: persistent Qualified Code(s): I48.1 - Persistent atrial fibrillation (3) CAD (coronary artery disease) Code(s): I25.10 - ATHSCL HEART DISEASE OF [place] CORONARY ARTERY W/O ANG PCTRS Qualifiers: Coronary Disease-Associated Artery/Lesion type: [place] artery [place] vs. transplanted heart: [place] heart Associated angina: without angina Qualified Code(s): I25.10 - Atherosclerotic heart disease of [place] coronary artery without angina pectoris (4) CVA (cerebral vascular accident) Code(s): I63.9 - CEREBRAL INFARCTION, UNSPECIFIED Qualifiers: CVA mechanism: unspecified Qualified Code(s): I63.9 - Cerebral infarction, unspecified (5) HTN (hypertension) Code(s): I10 - ESSENTIAL (PRIMARY) HYPERTENSION Qualifiers: Hypertension type: essential hypertension Qualified Code(s): I10 - Essential (primary) hypertension (6) Hyperthyroidism Code(s): E05.90 - THYROTOXICOSIS, UNSP WITHOUT THYROTOXIC CRISIS OR STORM (7) Parkinson disease Code(s): G20 - PARKINSON'S DISEASE (8) Colonic mass Code(s): K63.9 - DISEASE OF INTESTINE, UNSPECIFIED (9) S/P left hemicolectomy Code(s): Z90.49 - ACQUIRED ABSENCE OF OTHER SPECIFIED PARTS OF DIGESTIVE TRACT (10) Helicobacter pylori gastritis Code(s): K29.70 - GASTRITIS, UNSPECIFIED, WITHOUT BLEEDING; B96.81 - HELICOBACTER PYLORI THE CAUSE OF DISEASES CLASSD ELSWHR (11) Malignant neoplasm of left colon Code(s): C18.6 - MALIGNANT NEOPLASM OF DESCENDING COLON Assessment/Plan 02/04/2018 Echo: Normal LV systolic function, mild LVH, mildly dilated ascending thoacic aprta, tr MR, tr TR and trace pericardial effusion DON: Normal LV size and fxnmild MR, TR, mod AR, tr-mild FL 1. POD#3 Left hemicolectomy for invasive adenocarcinoma 2. Coronary artery disease angina pectoris 3. Diastolic left ventricular dysfunction with chronic class I [place] [employer] classification left ventricular failure compensated euvolemic 4. Paroxysmal atrial fibrillation [id number] of 6, currently in sinus rhythm off NOAC's, previous DCCV 5. HTN/HCVD 6. Diabetes mellitus 7. Parkinson's disease 8. Hyperthyroidism 9. History of reactive airway disease/bronchial asthma 10. H. pylori gastritis PLAN: 1. F/u pathology, oncology f/u 2. Continue Toprol XL 50 qd, and resume losartan 25 qd as hemodynamics tolerate. Eliquis to be resumed once post-op hemostasis has been achieved 3. Monitor CBC post transfusion to maintain Hgb > 8.0 4. Await recovery of bowel function
[2019-02-23] MEDS: LACTATED RINGERS SOLUTION 1,000 ML/1,000 ML INFUS.BAG IV SCH (14:11)
--- NOTE | 2019-02-23 14:31 | PATH ---
Surgical Pathology Report Patient Name: LILLIE GOMEZ [facility]. Rec. #: [id number] /Age/Gender: 1935 (Age: 83) / F Account: [id number] Location: [address] [place] [address] Taken: 02/20/2019 Received: 02/20/2019 Reported: 02/23/2019 Physicians: John Alvarado MD Specimen(s) Received TRANSVERSE AND LEFT COLON Clinical History Colonic neoplasm Final Diagnosis PARTIAL TRANSVERSE AND LEFT COLON, COLECTOMY: INVASIVE ADENOCARCINOMA, MODERATELY DIFFERENTIATED. TUMOR MEASURES 8.2 X 4.6 CM (GROSS MEASUREMENT). TUMOR LOCATED AT HEPATIC FLEXURE. TUBULAR ADENOMAS (2). TUMOR INVADES THROUGH THE MUSCULARIS PROPRIA INTO PERICOLORECTAL TISSUE. NO LYMPHOVASCULAR OR PERINEURAL INVASION IDENTIFIED. SURGICAL MARGINS ARE NEGATIVE. TWENTY LYMPH NODES NEGATIVE FOR CARCINOMA (0/20). PATHOLOGIC STAGE: pT3 pN0. SEE INVASIVE SUMMARY BELOW. Comment: Prior biopsy and intraoperative findings noted. Comments Colorectal Carcinoma :Surgical Pathology Cancer Case Summary (Based on AJCC TNM 8 th edition) Procedure _X_ Left colectomy with splenic flexure takedown Tumor Site _X__Hepatic flexure (as per Operative report) Tumor Size Greatest dimension (centimeters): 8.2 X 4.6 CM Macroscopic Tumor Perforation _X__ Not identified Histologic Type _X__ Adenocarcinoma Histologic Grade _X__ G2: Moderately differentiated Tumor Extension _X__ Tumor invades through the muscularis propria into pericolorectal tissue Margins _X__ All margins are uninvolved by invasive carcinoma, high-grade dysplasia, intramucosal adenocarcinoma, and adenoma Margins examined: Proximal, distal, mesenteric Treatment Effect _X__ No known presurgical therapy Lymphovascular Invasion _X__ Not identified Perineural Invasion _X__ Not identified Tumor Deposits _X__ Not identified Regional Lymph Nodes Lymph Node Examination Number of Lymph Nodes Involved: 0 Number of Lymph Nodes Examined: 20 Pathologic Stage Classification (pTNM, AJCC 8th Edition) Primary Tumor (pT) _X__ pT3: Tumor invades through the muscularis propria into pericolorectal tissues Regional Lymph Nodes (pN) _X__ pN0: No regional lymph node metastasis MISMATCH REPAIR PROTEIN ANALYSIS performed on prior biopsy ([id number]) show the following: RESULTS: HMLH-1 INTACT NUCLEAR EXPRESSION HMSH-2 INTACT NUCLEAR EXPRESSION HMSH-6 INTACT NUCLEAR EXPRESSION PMS2 INTACT NUCLEAR EXPRESSION INTERPRETATION: No loss of nuclear expression of MMR proteins: low probability of microsatellite instability-high (MSI-H) Electronically Signed Frances White M.D. Gross Description Received in formalin labeled "partial transverse and left colon," is a 27 cm in length portion of colon with 2 stapled mucosal margins and abundant attached pericolonic adipose tissue. There is a suture marking the proximal aspect of the specimen, per the surgeon. The serosa is giles-swain and smooth. The mucosa displays an 8.2 x 4.6 cm brown, polypoid mass. The mass is 10 cm from the distal mucosal margin and 3 cm from the mesenteric margin of resection. Probable invasion into the pericolonic adipose tissue is identified. The remaining mucosa displays 2 brown, polypoid lesions measuring 0.5 and 0.7 cm in greatest dimension. The smaller polyp is 2 cm from the proximal mucosal margin and the larger polyp is 7 cm from the proximal mucosal margin. The polyps appear confined to the mucosa. The remaining mucosa is giles with focally flattened folds. Sectioning of the pericolonic adipose tissue reveals multiple pink-giles lymph nodes measuring up to 0.8 cm in greatest dimension. Vamp Strap Ironer sections are submitted in cassettes as follows: 1-proximal mucosal margin; 2-distal mucosal margin; 3-shave of mesenteric margin; 4-7-mass; 8-smaller proximal mucosal polyp; 9-larger proximal mucosal polyp; 10-uninvolved distal mucosa; 11-23-one bisected lymph node each; 24-one trisected lymph node; 25-26-three whole possible lymph nodes each. 02/21/2019 [facility]02/21/2019
[2019-02-23 17:27] LABS: HEMATOCRIT 33.2 % (32.4-45.2); HEMOGLOBIN 10.3 GM/dL (10.7-15.3); MCHC 31.1 g/dl (32.0-36.0); MEAN CELL VOLUME 77.1 fl (80-96); PLATELET COUNT 206 K/MM3 (134-434); RDW 26.4 % (11.6-15.6); WHITE BLOOD COUNT 10.3 K/mm3 (4.0-10.0)
--- NOTE | 2019-02-23 18:28 | PN ---
Teaching Attending Note Name of Resident: Roxann Garza ATTENDING PHYSICIAN STATEMENT I saw and evaluated the patient. I reviewed the resident's note and discussed the case with the resident. I agree with the resident's findings and plan as documented. SUBJECTIVE: No fever or chills . cont to have abd pain, no flatus. no BM. abd distention OBJECTIVE: NAD , awake, alert, cooperative CV: RRR, no MRG Lungs: CTAB Abd: distended especially in upper part , absent BS. mid line surgical dressing . TTP in all quadrants Ext : no edema or erythema ASSESSMENT AND PLAN: 83 y/o lady with h/o A fib, s/p cardioversion, on AC, DM, CHF, hypertension, hyperthyroidism, heart failure, and family hx of Dalton syndrome who presented with anemia and was found to have colon cancer 1- Invasive adenocarcinoma of colon T3N0, s/p partial collectomy . still no flatus or BM. -cont PRN Morphine , and tylenol - KUB - further w/u and treatment plan for her cancer as out pt 2- Acute blood loss anemia: stable Hb today. cont to hold eliquis for today and if HB remains stable tomorrow , can resume 3-H/o Afib: cont BB and hold eliquis as above 4-reported h/o of heart failure hold lasix and cont gentle hydration while NPO 5- h/o hyperthyroidism; TSH is slightly elevated. - cont decreased dose of methimazole 6- mediastinal LAP , to be followed as out pt HLOC d/w daughter at bedside
--- NOTE | 2019-02-23 18:31 | PN ---
Progress Note (short form) - Note Progress Note: Patient seen and examined Lying in bed Somewhat lethargic Last Vital Signs Temp Pulse Resp BP Pulse Ox 97.6 F 120 H 18 118/74 96 02/23/19 15:06 02/23/19 15:06 02/23/19 09:00 02/23/19 15:06 02/22/19 21:00 Cor: RSR, No murmurs, No gallops Lungs: diminished breath sounds Abd: dressing intact Minimal bowel sounds Ext:No significant edema CBC, BMP 02/23/19 16:00 02/23/19 06:25 Current Medications Generic Name Dose Route Start Last Admin Trade Name Freq PRN Reason Stop Dose Admin Acetaminophen 1,000 mg 02/23/19 14:45 02/23/19 16:51 Ofirmev Injection - IVPB 1,000 mg Q6H PRN Administration PAIN LEVEL 6-10 Alvimopan 12 mg 02/21/19 10:00 02/23/19 10:54 Entereg Capsule (Restricted) - PO 12 mg BID SRIKANTH Administration Ascorbic Acid 500 mg 02/21/19 10:00 02/23/19 10:54 Vitamin C - PO 500 mg DAILY SRIKANTH Administration Benzocaine/Menthol 1 each 02/21/19 12:50 02/22/19 16:59 Cepacol Lozenge - MM 1 each PRN PRN Administration SORE THROAT Ferrous Sulfate 325 mg 02/21/19 10:00 02/23/19 10:54 Feosol - PO 325 mg DAILY SRIKANTH Administration Lactated Ringer's 1,000 ml in 1,000 mls @ 100 mls/hr 02/22/19 12:30 02/23/19 14:11 Lactated Ringers Solution IV 100 mls/hr ASDIR SRIKANTH Administration Insulin Aspart 1 vial 02/21/19 16:30 02/23/19 16:42 Novolog Vial Sliding Scale - SQ Not Given ACHS SRIKANTH Protocol Methimazole 5 mg 02/21/19 10:00 02/22/19 09:43 Tapazole - PO 5 mg DAILY SRIKANTH Administration Metoprolol Succinate 50 mg 02/21/19 10:00 02/23/19 10:55 Toprol Xl - PO 50 mg DAILY SRIKANTH Administration Morphine Sulfate 2 mg 02/22/19 09:10 02/23/19 13:11 Morphine Sulfate IVPUSH 2 mg Q4H PRN Administration PAIN LEVEL 6-10 Ondansetron HCl 4 mg 02/22/19 10:19 02/22/19 10:42 Zofran Injection IVPUSH 4 mg Q6H PRN Administration NAUSEA Pantoprazole Sodium 40 mg 02/22/19 10:00 02/23/19 10:58 Protonix Iv IVPUSH 40 mg DAILY SRIKANTH Administration Impression: T3,N0 invasive adenoca with 0/20 nodes -intermediate grade s/p left colon resection No LVI Margins clear No Microsatellite instability Not classic Dalton related colon ca ( left sided and MSI-negative) However tumor was obstructing and entire colon could not be visualized . In future need to complete colonoscopy to visualize entire colon and look for additional right sided lesions - more typical of Dalton.
[2019-02-23] MEDS ORDERED: INSULIN (NOVOLOG) ASPART 100 UNITS/ML 10ML VIAL ONE (21:44)
[2019-02-24] MEDS: MORPHINE SULFATE 2 MG/ML VIAL IVPUSH PRN ×5 (03:26→23:53)
[2019-02-24] MEDS: ACETAMINOPHEN 1000 MG/100 ML VIAL (NON FORMULARY) IVPB PRN ×2 (05:59→14:49)
[2019-02-24] MEDS: INSULIN SLIDING SCALE (NOVOLOG) 1 VIAL SQ SCH ×4 (06:24→23:15)
[2019-02-24 08:23] LABS: ANION GAP 12 MMOL/L (8-16); BLOOD UREA NITROGEN 11 mg/dL (7-18); CHLORIDE 106 mmol/L (98-107); CO2 24 mmol/L (21-32); CREATININE 0.5 mg/dL (0.55-1.3); GLUCOSE,RANDOM 78 mg/dL (74-106); PHOSPHOROUS 3.2 mg/dL (2.5-4.9); POTASSIUM 4.2 mmol/L (3.5-5.1); SODIUM 141 mmol/L (136-145)
[2019-02-24 08:25] LABS: HEMATOCRIT 29.9 % (32.4-45.2); HEMOGLOBIN 9.5 GM/dL (10.7-15.3); MCH 24.4 pg (25.7-33.7); MEAN CELL VOLUME 76.4 fl (80-96); MEAN PLT VOLUME 7.5 fl (7.5-11.1); PLATELET COUNT 238 K/MM3 (134-434); RBC 3.91 M/mm3 (3.60-5.2); RDW 26.6 % (11.6-15.6); WHITE BLOOD COUNT 8.2 K/mm3 (4.0-10.0)
--- NOTE | 2019-02-24 09:49 | PN ---
Physical Exam: SUBJECTIVE: Patient seen and examined at bedside- patient passed gas last night ; she is still in a lot of pain at her incision site; her breathing is improving. OBJECTIVE: Vital Signs Period Temp Pulse Resp BP Sys/Ugarte Pulse Ox Last 24 Hr 97.6 F-98.6 F 104-120 18 118-144/59-89 100 GENERAL: The patient is awake, alert, and fully oriented, in slight acute distress. EYES: PEERLA: EOMI: no scleral icterus. NECK: no JVD: no lymphadenopathy LUNGS: diminished breath sounds B/L HEART: slightly tachycardic, S1, S2 without murmur, rub or gallop. ABDOMEN: Soft, hypoactive BS; tenderness upon palpation; midline incision with dressing in place. EXTREMITIES: 2+ pulses, warm, well-perfused, no edema. PSYCH: Normal mood, normal affect. SKIN: Warm, dry, normal turgor, no rashes or lesions noted Laboratory Results - last 24 hr 02/23/19 02/23/19 02/23/19 12:06 16:00 16:30 WBC 10.3 H RBC 4.30 Hgb 10.3 L Hct 33.2 MCV 77.1 L MCH 24.0 L MCHC 31.1 L RDW 26.4 H Plt Count 206 MPV 8.0 Sodium Potassium Chloride Carbon Dioxide Anion Gap BUN Creatinine Creat Clearance w eGFR POC Glucometer 95 87 Random Glucose Calcium Phosphorus Magnesium 02/23/19 02/24/19 02/24/19 21:48 06:21 07:00 WBC 8.2 RBC 3.91 Hgb 9.5 L Hct 29.9 L MCV 76.4 L MCH 24.4 L MCHC 32.0 RDW 26.6 H Plt Count 238 MPV 7.5 Sodium Potassium Chloride Carbon Dioxide Anion Gap BUN Creatinine Creat Clearance w eGFR POC Glucometer 89 89 Random Glucose Calcium Phosphorus Magnesium 02/24/19 07:00 WBC RBC Hgb Hct MCV MCH MCHC RDW Plt Count MPV Sodium 141 Potassium 4.2 Chloride 106 Carbon Dioxide 24 Anion Gap 12 BUN 11 Creatinine 0.5 L Creat Clearance w eGFR 118.12 POC Glucometer Random Glucose 78 Calcium 8.0 L Phosphorus 3.2 Magnesium 2.0 Active Medications Generic Name Dose Route Start Last Admin Trade Name Freq PRN Reason Stop Dose Admin Acetaminophen 1,000 mg 02/23/19 14:45 02/24/19 05:59 Ofirmev Injection - IVPB 1,000 mg Q6H PRN Administration PAIN LEVEL 6-10 Alvimopan 12 mg 02/21/19 10:00 02/23/19 23:21 Entereg Capsule (Restricted) - PO 12 mg BID SRIKANTH Administration Ascorbic Acid 500 mg 02/21/19 10:00 02/23/19 10:54 Vitamin C - PO 500 mg DAILY SRIKANTH Administration Benzocaine/Menthol 1 each 02/21/19 12:50 02/22/19 16:59 Cepacol Lozenge - MM 1 each PRN PRN Administration SORE THROAT Ferrous Sulfate 325 mg 02/21/19 10:00 02/23/19 10:54 Feosol - PO 325 mg DAILY SRIKANTH Administration Lactated Ringer's 1,000 ml in 1,000 mls @ 100 mls/hr 02/22/19 12:30 02/23/19 14:11 Lactated Ringers Solution IV 100 mls/hr ASDIR SRIKANTH Administration Insulin Aspart 1 vial 02/21/19 16:30 02/24/19 06:24 Novolog Vial Sliding Scale - SQ Not Given ACHS [facility] Protocol Methimazole 5 mg 02/21/19 10:00 02/23/19 04:00 Tapazole - PO 5 mg DAILY SRIKANTH Administration Metoprolol Succinate 50 mg 02/21/19 10:00 02/23/19 10:55 Toprol Xl - PO 50 mg DAILY SRIKANTH Administration Morphine Sulfate 2 mg 02/22/19 09:10 02/24/19 07:57 Morphine Sulfate IVPUSH 2 mg Q4H PRN Administration PAIN LEVEL 6-10 Ondansetron HCl 4 mg 02/22/19 10:19 02/22/19 10:42 Zofran Injection IVPUSH 4 mg Q6H PRN Administration NAUSEA Pantoprazole Sodium 40 mg 02/22/19 10:00 02/23/19 10:58 Protonix Iv IVPUSH 40 mg DAILY SRIKANTH Administration ASSESSMENT/PLAN: 83 y/o female with PMH of A fib on eliquis, DM, HTN, hyperthyroidism, who presented to the ED with worsening abdominal pain, weakness, anemia found to have a colonic mass #Colonic mass patient found to have a near obstruction descending colonic mass -POD #4 left colectomy with splenic flexure takedown -patient passed flatus last night however, -incentive spirometer; morphine PRN pain -diet advanced to clears -EGD/colonscopy path back showing tubular adeonma X3 consistent with adenocarcinoma -heme/onc on board- family we need to have genetic testing -family discussion will need to be have #Microcytic Anemia patient received 2 units PRBCS since surgery monitor Hgb; HGb this AM was 9.3 tranfuse if Hgb <8 since patient is cardiac patient #DM ISS BGMS ACHS #Afib holding patient eliquis in light of bleeding; will restart once hemodynamically stable and Hgb remains stable c/w toprol 25 daily as patient has been slightly hypotensive #HTN c/w toprol 25 daily as patient has been slightly hypotensive #CHF stable for now c/w lasix 20 daily #Hyperthyroidism methimazole 5mg daily will need repeat TFTs as outpatient F/E/N' LR @100 monitor electrolytes clears Problem List - Problems (1) Microcytic anemia Code(s): D50.9 - IRON DEFICIENCY ANEMIA, UNSPECIFIED (2) Atrial fibrillation Code(s): I48.91 - UNSPECIFIED ATRIAL FIBRILLATION Qualifiers: Atrial fibrillation type: persistent Qualified Code(s): I48.1 - Persistent atrial fibrillation (3) CAD (coronary artery disease) Code(s): I25.10 - ATHSCL HEART DISEASE OF [place] CORONARY ARTERY W/O ANG PCTRS Qualifiers: Coronary Disease-Associated Artery/Lesion type: [place] artery [place] vs. transplanted heart: [place] heart Associated angina: without angina Qualified Code(s): I25.10 - Atherosclerotic heart disease of [place] coronary artery without angina pectoris (4) CHF (congestive heart failure) Code(s): I50.9 - HEART FAILURE, UNSPECIFIED Visit type - Emergency Visit Emergency Visit: Yes ED Registration Date: 02/15/19 Care time: The patient presented to the Emergency Department on the above date and was hospitalized for further evaluation of their emergent condition. - New Patient This patient is new to me today: No - Critical Care Critical Care patient: No
[2019-02-24] MEDS: ALVIMOPAN 12 MG CAP PO SCH (09:51)
[2019-02-24] MEDS: FERROUS SO4 325 MG TABLET (FP) PO SCH (09:56)
[2019-02-24] MEDS: ASCORBIC ACID 500 MG TABLET (FP) PO SCH (09:56)
[2019-02-24] MEDS: METHIMAZOLE 5 MG TABLET (FP) PO SCH (09:56)
[2019-02-24] MEDS: PANTOPRAZOLE SODIUM 40 MG VIAL IVPUSH SCH (10:33)
--- NOTE | 2019-02-24 10:54 | PN ---
Teaching Attending Note Name of Resident: Roxann Garza ATTENDING PHYSICIAN STATEMENT I saw and evaluated the patient. I reviewed the resident's note and discussed the case with the resident. I agree with the resident's findings and plan as documented. SUBJECTIVE: No fever. no chills, passed gas last night and this am. no N/V. wants to eat OBJECTIVE: NAD, awake, alert, cooperative CV: RRR, no MRG Lungs: CTAB Abd:less distended compared to yesterday. absent BS. mid line dressing was removed. stapes in place with miniml serosanguinous discharge on dressing . TTP in all quadrants Ext : no edema or erythema ASSESSMENT AND PLAN: 83 y/o lady with h/o A fib, s/p cardioversion, on AC, DM, CHF, hypertension, hyperthyroidism, heart failure, and family hx of Dalton syndrome who presented with anemia and was found to have colon cancer 1- Invasive adenocarcinoma of colon T3N0, s/p partial collectomy. + flatus - cont PRN Morphine, and tylenol - KUB reviewed, read as SBO but it might be ileus . abd distention is better and patient pain is better. clears per surgery - further w/u and treatment plan for her cancer as out pt 2- Acute blood loss anemia: stable Hb today.resume eliquis 3-H/o Afib: cont BB and hold eliquis as above. 4-Reported h/o of heart failure: hold lasix and cont gentle hydration while NPO 5- H/o hyperthyroidism; TSH is slightly elevated. - cont decreased dose of methimazole 6- Mediastinal LAP , to be followed as out pt HLOC .
--- NOTE | 2019-02-24 10:55 | PN ---
Progress Note (short form) - Note Progress Note: Attending Surgeon POD #6 Passed flatus; no c/o as best as can be determined; OOB to chair VSS AF abdo-soft; globose; non distended; non tympanitic; incision c/d/i labs-noted IMP: doing well PLAN:start clear liquids; D/C Entereg; continue present tx. John Alvarado MD FACS
[2019-02-24] MEDS: APIXABAN 5 MG TABLET PO SCH ×2 (10:58→22:02)
[2019-02-24] MEDS: LACTATED RINGERS SOLUTION 1,000 ML/1,000 ML INFUS.BAG IV SCH (17:45)
[2019-02-24] MEDS: ONDANSETRON 4 MG/2 ML VIAL IVPUSH PRN ×2 (18:03→23:53)
[2019-02-24] MEDS: ACETAMINOPHEN 325 MG TABLET (FP) PO PRN (22:02)
[2019-02-25] MEDS: MORPHINE SULFATE 2 MG/ML VIAL IVPUSH PRN ×2 (03:49→18:32)
[2019-02-25] MEDS: ACETAMINOPHEN 325 MG TABLET (FP) PO PRN ×2 (06:43→21:24)
[2019-02-25] MEDS: INSULIN SLIDING SCALE (NOVOLOG) 1 VIAL SQ SCH ×4 (06:44→21:47)
[2019-02-25 08:01] LABS: HEMATOCRIT 32.4 % (32.4-45.2); HEMOGLOBIN 10.3 GM/dL (10.7-15.3); MCH 24.4 pg (25.7-33.7); MCHC 31.9 g/dl (32.0-36.0); MEAN CELL VOLUME 76.7 fl (80-96); MEAN PLT VOLUME 7.9 fl (7.5-11.1); PLATELET COUNT 274 K/MM3 (134-434); RBC 4.22 M/mm3 (3.60-5.2); WHITE BLOOD COUNT 9.8 K/mm3 (4.0-10.0)
[2019-02-25 08:26] LABS: ANION GAP 8 MMOL/L (8-16); BLOOD UREA NITROGEN 8 mg/dL (7-18); CALCIUM 8.3 mg/dL (8.5-10.1); CHLORIDE 106 mmol/L (98-107); CO2 25 mmol/L (21-32); CREATININE 0.5 mg/dL (0.55-1.3); GLUCOSE,RANDOM 134 mg/dL (74-106); MAGNESIUM 1.8 mg/dL (1.8-2.4); PHOSPHOROUS 2.8 mg/dL (2.5-4.9); POTASSIUM 3.8 mmol/L (3.5-5.1); SODIUM 139 mmol/L (136-145)
[2019-02-25] MEDS: APIXABAN 5 MG TABLET PO SCH (09:03)
[2019-02-25] MEDS: FERROUS SO4 325 MG TABLET (FP) PO SCH ×2 (09:05→13:04)
[2019-02-25] MEDS: ONDANSETRON 4 MG/2 ML VIAL IVPUSH PRN (09:05)
[2019-02-25] MEDS: METHIMAZOLE 5 MG TABLET (FP) PO SCH ×2 (09:06→13:04)
[2019-02-25] MEDS: PANTOPRAZOLE SODIUM 40 MG VIAL IVPUSH SCH (09:06)
[2019-02-25] MEDS: ASCORBIC ACID 500 MG TABLET (FP) PO SCH ×2 (09:06→13:05)
[2019-02-25] MEDS ORDERED: PROCHLORPERAZINE INJECTION 10 MG/2 ML VIAL IVPB ONE (09:55)
--- NOTE | 2019-02-25 09:59 | PN ---
Progress Note (short form) - Note Progress Note: Subjective: no fever or chills. cont to have pain in abd. vomited all night . had 2 BMs , with minimal amount of blood per RN reprot. tolerated liquid food yesterday but not this am . Objective: Vital Signs: Last Vital Signs Temp Pulse Resp BP Pulse Ox 98.6 F 133 H 18 105/83 97 02/25/19 08:38 02/25/19 08:38 02/25/19 08:38 02/25/19 08:38 02/24/19 21:00 Laboratory Results - last 24 hr 02/24/19 02/24/19 02/24/19 11:03 16:49 21:20 WBC RBC Hgb Hct MCV MCH MCHC RDW Plt Count MPV Sodium Potassium Chloride Carbon Dioxide Anion Gap BUN Creatinine Creat Clearance w eGFR POC Glucometer 96 120 136 Random Glucose Calcium Phosphorus Magnesium 02/25/19 02/25/19 02/25/19 06:42 06:45 06:45 WBC 9.8 RBC 4.22 Hgb 10.3 L Hct 32.4 MCV 76.7 L MCH 24.4 L MCHC 31.9 L RDW 27.0 H Plt Count 274 MPV 7.9 Sodium 139 Potassium 3.8 Chloride 106 Carbon Dioxide 25 Anion Gap 8 BUN 8 Creatinine 0.5 L Creat Clearance w eGFR 118.12 POC Glucometer 133 Random Glucose 134 H Calcium 8.3 L Phosphorus 2.8 Magnesium 1.8 NAD, awake, alert, cooperative CV: irreg irreg , no MRG Lungs: bibasilar crackles Abd:more distended compared to yesterday. + BS . mid line dressing was removed. stapes in place with serosanguinous discharge on dressing . TTP in all quadrants Ext : no edema or erythema Rectal: no hemorrhoids or masses felt. Maroon blood on examiner finger . 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 + flatus and BMs , but vomiting - cont PRN Morphine, and tylenol ( change to IV) - make NPO today - d/w Dr. elias . No indication for Abd CT scan yet 2- Rectal bleed: rectal exam as above. - repeat Hb at 1 pm and 7 Pm - dc eliquis - monitor vitals 3- Acute blood loss anemia: stable HB despite GI bleed. monitor 4- Afib:now HR in 130s. - give BB - transfer to tele - hold eliquis 5-Reported h/o of heart failure: hold lasix and hold IVF due to increased crackles ans mild hypoxia 6- H/o hyperthyroidism; TSH is slightly elevated. - cont decreased dose of methimazole 7- Mediastinal LAP , to be followed as out pt HLOC . Tx to tele Visit type - Emergency Visit Emergency Visit: Yes ED Registration Date: 02/15/19 Care time: The patient presented to the Emergency Department on the above date and was hospitalized for further evaluation of their emergent condition. - New Patient This patient is new to me today: No - Critical Care Critical Care patient: No
--- NOTE | 2019-02-25 10:10 | PN ---
Progress Note (short form) - Note Progress Note: Attending Surgeon POD #5 Tolerated clears yesterday h/e during the night had emesis; have dark BM's and passing flatus VSS AF abdo-soft; slightly distended; wound OK; minimal tympany; o/w negative. WBC; H/H noted and unremarkable. IMP: stable but slow post op progress PLAN: Keep NPO and monitor; d/w Dr. Bella. John Alvarado MD FACS
[2019-02-25 13:15] LABS: HEMATOCRIT 32.2 % (32.4-45.2); HEMOGLOBIN 10.2 GM/dL (10.7-15.3); MCH 24.7 pg (25.7-33.7); MCHC 31.7 g/dl (32.0-36.0); MEAN PLT VOLUME 7.5 fl (7.5-11.1); PLATELET COUNT 268 K/MM3 (134-434); RBC 4.13 M/mm3 (3.60-5.2); RDW 27.9 % (11.6-15.6); WHITE BLOOD COUNT 9.8 K/mm3 (4.0-10.0)
[2019-02-25] MEDS ORDERED: METOPROLOL TARTRATE 5 MG/5 ML VIAL IVPUSH PRN (13:45)
[2019-02-25] MEDS ORDERED: ACETAMINOPHEN 1000 MG/100 ML VIAL (NON FORMULARY) IVPB PRN (13:45)
[2019-02-25] MEDS ORDERED: BENZOCAINE/MENTH/CETYLPYRD CL 1 EACH LOZENGE MM PRN (14:11)
[2019-02-25] MEDS ORDERED: ONDANSETRON 4 MG/2 ML VIAL IVPUSH PRN (14:11)
--- NOTE | 2019-02-25 17:29 | PN ---
Progress Note, Physician Chief Complaint: Pt, surrounded by several family members, denies palpitations, chest pain, dizziness, or dyspnea. Mild intermittent abdominal pain at surgical site; she is hungry (though NPO after vomiting earlier). History of Present Illness: The patient is an 84 year old female (b. [facility]) with a past medical history of Parkinson's disease, AFIB (on Eliquis), HTN, hyperthyroidism , recurrent UTI, borderline diabetes, recent cardiac ablation (6 months ago), obesity, and prior stroke, who presents to the Emergency Department with progressive drop in hemoglobin (6.1 today). The patients GI physician, Dr. Rangel referred the patient because of her anemia and pallor. Pt's daughter reports the patient has been lethargic and generally weak. Denies SOB/CP. Denies fevers, chills, headache, focal weakness/numbness. Per Dr. Rangel, stool guaic this AM was negative in the office Allergies: NKDA PCP - Dr. Fortune - Current Medication List Current Medications: Active Medications Acetaminophen (Tylenol -) 650 mg PO Q6H PRN PRN Reason: Fever Or Pain Ascorbic Acid (Vitamin C -) 500 mg PO DAILY [facility] Benzocaine/Menthol (Cepacol Lozenge -) 1 each MM PRN PRN PRN Reason: SORE THROAT Ferrous Sulfate (Feosol -) 325 mg PO DAILY [facility] Insulin Aspart (Novolog Vial Sliding Scale -) 1 vial SQ [facility]; Protocol Last Admin: 02/25/19 17:10 Dose: Not Given Methimazole (Tapazole -) 5 mg PO DAILY [facility] Metoprolol Succinate (Toprol Xl -) 25 mg PO DAILY [facility] Morphine Sulfate (Morphine Sulfate) 2 mg IVPUSH Q4H PRN PRN Reason: PAIN LEVEL 6-10 Ondansetron HCl (Zofran Injection) 4 mg IVPUSH Q6H PRN PRN Reason: NAUSEA Pantoprazole Sodium (Protonix Iv) 40 mg IVPUSH DAILY [facility] - Objective Vital Signs: Vital Signs Temperature 98.8 F 02/25/19 13:38 Pulse Rate 138 H 02/25/19 13:56 Respiratory Rate 20 02/25/19 13:38 Blood Pressure 120/70 02/25/19 13:56 O2 Sat by Pulse Oximetry (%) 98 02/25/19 09:00 Constitutional: Yes: Calm, Obese Eyes: Yes: WNL HENT: Yes: WNL Neck: Yes: WNL Cardiovascular: Yes: Tachycardia, Pulse Irregular, S1 (varies in intensity), S2 Respiratory: Yes: Regular. No: SOB Gastrointestinal: Yes: Tenderness (mild, at surgical site) ...Rectal Exam: Yes: Deferred Genitourinary: No: Anuria Breast(s): Yes: WNL Extremities: Yes: Cool Edema: No Peripheral Pulses WNL: Yes Integumentary: Yes: Incision Wound/Incision: Yes: Other (central vertical dressing for much of the abdomen; small amount of dried blood supraumbilical) Neurological: Yes: WNL Psychiatric: Yes: WNL Labs: CBC, BMP 02/25/19 12:55 02/25/19 06:45 INR, PTT INR 1.09 (0.83-1.09) 02/20/19 06:00 Abnormal Lab Results 02/20/19 02/25/19 02/25/19 06:00 06:45 06:45 Hgb 10.3 L Hct MCV 76.7 L MCH 24.4 L MCHC 31.9 L RDW 27.0 H Creatinine 0.5 L Random Glucose 134 H Calcium 8.3 L Crossmatch See Detail 02/25/19 12:55 Hgb 10.2 L Hct 32.2 L MCV 78.0 L MCH 24.7 L MCHC 31.7 L RDW 27.9 H Creatinine Random Glucose Calcium Crossmatch - ....Imaging Other: Image Reviewed (telemetry: AF; periods of RVR) Problem List - Problems (1) Malignant neoplasm of left colon Code(s): C18.6 - MALIGNANT NEOPLASM OF DESCENDING COLON (2) S/P left hemicolectomy Assessment/Plan: f/u with surgeon Code(s): Z90.49 - ACQUIRED ABSENCE OF OTHER SPECIFIED PARTS OF DIGESTIVE TRACT (3) Acute on chronic diastolic (congestive) heart failure Code(s): I50.33 - ACUTE ON CHRONIC DIASTOLIC (CONGESTIVE) HEART FAILURE (4) Atrial fibrillation Assessment/Plan: Pt moved to telemetry due to develoopment of AF with RVR. NPO presently. Will increase metoprolol tartrate to 5 mg IV q 4h prn until metoprolol ER can be restarted. DON 08/2017: normal LVEF; moderate AR; normal LA size. Code(s): I48.91 - UNSPECIFIED ATRIAL FIBRILLATION Qualifiers: Atrial fibrillation type: persistent Qualified Code(s): I48.1 - Persistent atrial fibrillation (5) CAD (coronary artery disease) Code(s): I25.10 - ATHSCL HEART DISEASE OF [place] CORONARY ARTERY W/O ANG PCTRS Qualifiers: Coronary Disease-Associated Artery/Lesion type: [place] artery [place] vs. transplanted heart: [place] heart Associated angina: without angina Qualified Code(s): I25.10 - Atherosclerotic heart disease of [place] coronary artery without angina pectoris (6) Diabetes mellitus Code(s): E11.9 - TYPE 2 DIABETES MELLITUS WITHOUT COMPLICATIONS Qualifiers: Diabetes mellitus type: type 2 Diabetes mellitus chcf insulin use: without joint terminal attack controller use Diabetes mellitus complication status: without complication Qualified Code(s): E11.9 - Type 2 diabetes mellitus without complications (7) Dyspnea Code(s): R06.00 - DYSPNEA, UNSPECIFIED Qualifiers: Dyspnea type: dyspnea on exertion Qualified Code(s): R06.09 - Other forms of dyspnea (8) HTN (hypertension) Assessment/Plan: oN metoprolol. Consider adding ACEI (HTN; DM). Code(s): I10 - ESSENTIAL (PRIMARY) HYPERTENSION Qualifiers: Hypertension type: essential hypertension Qualified Code(s): I10 - Essential (primary) hypertension (9) Vomiting Code(s): R11.10 - VOMITING, UNSPECIFIED (10) Weakness Code(s): R53.1 - WEAKNESS (11) Obesity (BMI 35.0-39.9 without comorbidity) Code(s): E66.9 - OBESITY, UNSPECIFIED
[2019-02-25] MEDS: METOPROLOL TARTRATE 5 MG/5 ML VIAL IVPUSH PRN (17:48)
--- NOTE | 2019-02-25 17:54 | EKG ---
Test Reason : Blood Pressure : / mmHG Vent. Rate : 124 BPM Atrial Rate : 067 BPM P-R Int : 000 ms QRS Dur : 148 ms QT Int : 376 ms P-R-T Axes : 000 -37 003 degrees QTc Int : 540 ms ATRIAL FIBRILLATION WITH RAPID VENTRICULAR RESPONSE LEFT AXIS DEVIATION RIGHT BUNDLE BRANCH BLOCK ABNORMAL ECG WHEN COMPARED WITH ECG OF 19-FEB-2019 12:09, NO SIGNIFICANT CHANGE WAS FOUND Confirmed by SHAVON GRAMAJO, ARCADIO ([id number]) on 02/25/2019 5:54:27 PM Referred By: Jaleel MCGRAW Confirmed By:ARCADIO SANDS MD
[2019-02-25 19:14] LABS: HEMATOCRIT 30.6 % (32.4-45.2); HEMOGLOBIN 9.6 GM/dL (10.7-15.3); MCH 24.3 pg (25.7-33.7); MCHC 31.5 g/dl (32.0-36.0); MEAN CELL VOLUME 77.2 fl (80-96); MEAN PLT VOLUME 7.7 fl (7.5-11.1); PLATELET COUNT 296 K/MM3 (134-434); RBC 3.97 M/mm3 (3.60-5.2); RDW 27.4 % (11.6-15.6); WHITE BLOOD COUNT 8.4 K/mm3 (4.0-10.0)
[2019-02-25] MEDS: metoPROLOL SUCCINATE 25 MG TAB.SR.24H (FP) PO SCH (21:46)
[2019-02-26] MEDS: MORPHINE SULFATE 2 MG/ML VIAL IVPUSH PRN ×3 (01:40→20:14)
[2019-02-26] MEDS: METOPROLOL TARTRATE 5 MG/5 ML VIAL IVPUSH PRN ×2 (01:41→23:50)
[2019-02-26] MEDS: ACETAMINOPHEN 325 MG TABLET (FP) PO PRN ×3 (04:14→23:45)
[2019-02-26] MEDS: INSULIN SLIDING SCALE (NOVOLOG) 1 VIAL SQ SCH ×4 (06:17→22:07)
[2019-02-26 07:38] LABS: BASO % 0.3 % (0-2.0); HEMATOCRIT 29.8 % (32.4-45.2); HEMOGLOBIN 9.4 GM/dL (10.7-15.3); LYMPH % 6.6 % (8-40); MCH 24.5 pg (25.7-33.7); MCHC 31.6 g/dl (32.0-36.0); MEAN CELL VOLUME 77.5 fl (80-96); MEAN PLT VOLUME 7.9 fl (7.5-11.1); MONO % 9.9 % (3.8-10.2); NEUT % 80.2 % (42.8-82.8); PLATELET COUNT 320 K/MM3 (134-434); RBC 3.84 M/mm3 (3.60-5.2); RDW 27.9 % (11.6-15.6); WHITE BLOOD COUNT 9.1 K/mm3 (4.0-10.0)
--- NOTE | 2019-02-26 08:05 | PN ---
Progress Note (short form) - Note Progress Note: POD #6 Alert. Supine in bed. Family member at bedside who acted as interpreter and translator for me. States there is a lot of drainage from abd wound and smells awful. She is passing flatus and having multiple soft bm's. Started on clears but reverted back to NPO secondary to n/v yesterday evening ( which has resolved). Last Vital Signs Temp Pulse Resp BP Pulse Ox 99.5 F 135 H 20 135/80 96 02/26/19 01:06 02/26/19 01:41 02/26/19 01:06 02/26/19 01:41 02/25/19 21:00 CBC, BMP 02/26/19 05:30 02/25/19 06:45 PE Gen: nad ABD: Softly distended. midline incision lucius intact. Mild periwound erythema along borders. Malodorous discharge. --> wound open...only lucius that remain are around the umbilicus. Wound cultured. Copious irrigation with 1L sterile water. Deep fascia intact. No joe pus. + fat necrosis : diaper in place LE: SCDs bilat. Soft. NT Problem List - Problems (1) Colonic mass Assessment/Plan: POD #6 s/p Left colectomy, splenic flexure takedown and primary anastamosis ( Adenocarcinoma) Wound packed with moist kerlix, covered with 4x4 and abd --> dressing changes ordered f/u Wound culture Tight glycemic control Resume clear liquid diet Monitor WBC Tylenol 650mg PO for fever > 100.3F Entereg dc'd Pain management Physical therapy to mobilize Incentive spirometer Above plan discussed with Dr. Alvarado and agrees. Code(s): K63.9 - DISEASE OF INTESTINE, UNSPECIFIED (2) Microcytic anemia Code(s): D50.9 - IRON DEFICIENCY ANEMIA, UNSPECIFIED (3) Asthma Code(s): J45.909 - UNSPECIFIED ASTHMA, UNCOMPLICATED Qualifiers: Asthma severity: mild Asthma persistence: intermittent Asthma complication type: unspecified Qualified Code(s): J45.20 - Mild intermittent asthma, uncomplicated (4) Atrial fibrillation Code(s): I48.91 - UNSPECIFIED ATRIAL FIBRILLATION Qualifiers: Atrial fibrillation type: persistent Qualified Code(s): I48.1 - Persistent atrial fibrillation (5) CAD (coronary artery disease) Code(s): I25.10 - ATHSCL HEART DISEASE OF [place] CORONARY ARTERY W/O ANG PCTRS Qualifiers: Coronary Disease-Associated Artery/Lesion type: [place] artery [place] vs. transplanted heart: [place] heart Associated angina: without angina Qualified Code(s): I25.10 - Atherosclerotic heart disease of [place] coronary artery without angina pectoris
[2019-02-26] MEDS ORDERED: PIPERACILLIN/TAZOB 3.375 GM 3.375 GM in DEXTROSE 5%-WATER - 50 ML IVPB ONE (09:30)
[2019-02-26] MEDS ORDERED: PIPERACILLIN/TAZOBACTAM 3.375 GM VIAL IVPB ONE ×2 (09:59→17:55)
[2019-02-26] MEDS ORDERED: DEXTROSE 5%-WATER - 50 ML IVPB ONE ×2 (09:59→17:55)
[2019-02-26] MEDS ORDERED: metoPROLOL SUCCINATE 25 MG TAB.SR.24H (FP) PO SCH (10:00)
--- NOTE | 2019-02-26 10:26 | PN ---
Progress Note, Physician Chief Complaint: Events noted Post op abdominal surgery AF with RVR History of Present Illness: Patient was seen and examined. Awake and alert. Chart was reviewed Post op. Spoke with daughter by bedside AF with RVR Not in distress - Current Medication List Current Medications: Active Medications Acetaminophen (Tylenol -) 650 mg PO Q6H PRN PRN Reason: Fever Or Pain Last Admin: 02/26/19 10:09 Dose: 650 mg Ascorbic Acid (Vitamin C -) 500 mg PO DAILY [facility] Benzocaine/Menthol (Cepacol Lozenge -) 1 each MM PRN PRN PRN Reason: SORE THROAT Ferrous Sulfate (Feosol -) 325 mg PO DAILY [facility] Insulin Aspart (Novolog Vial Sliding Scale -) 1 vial SQ [facility]; Protocol Last Admin: 02/26/19 06:17 Dose: Not Given Methimazole (Tapazole -) 5 mg PO DAILY [facility] Metoprolol Succinate (Toprol Xl -) 25 mg PO DAILY [facility] Last Admin: 02/25/19 21:46 Dose: Not Given Metoprolol Tartrate (Lopressor Injection -) 5 mg IVPUSH Q4H PRN PRN Reason: HYPERTENSION Last Admin: 02/26/19 01:41 Dose: 5 mg Morphine Sulfate (Morphine Sulfate) 2 mg IVPUSH Q4H PRN PRN Reason: PAIN LEVEL 6-10 Last Admin: 02/26/19 01:40 Dose: 2 mg Ondansetron HCl (Zofran Injection) 4 mg IVPUSH Q6H PRN PRN Reason: NAUSEA Pantoprazole Sodium (Protonix Iv) 40 mg IVPUSH DAILY [facility] - Objective Vital Signs: Vital Signs Temperature 99.5 F 02/26/19 01:06 Pulse Rate 107 H 02/26/19 05:00 Respiratory Rate 20 02/26/19 05:00 Blood Pressure 111/66 02/26/19 05:00 O2 Sat by Pulse Oximetry (%) 96 02/25/19 21:00 Neck: Yes: Supple Cardiovascular: Yes: Tachycardia, Pulse Irregular, S1, S2 Respiratory: Yes: Diminished Gastrointestinal: Yes: Other (Post op dressing mid abdomen) Edema: No Additional Findings/Remarks: - Review of Systems Constitutional: denies: Chills, Fever Cardiovascular: denies: Chest Pain. denies: Palpitations, Shortness of Breath Respiratory: denies Cough. denies: Hemoptysis, Orthopnea, PND, SOB, SOB on Exertion Gastrointestinal: denies: Abdominal Pain, Constipation, Diarrhea, Melena, Nausea , Rectal Bleeding, Vomiting Neurological: denies: Dizziness, Headache, Seizure, Syncope Labs: CBC, BMP 02/26/19 05:30 02/25/19 06:45 Problem List - Problems (1) Colonic mass Code(s): K63.9 - DISEASE OF INTESTINE, UNSPECIFIED (2) Malignant neoplasm of left colon Code(s): C18.6 - MALIGNANT NEOPLASM OF DESCENDING COLON (3) Microcytic anemia Code(s): D50.9 - IRON DEFICIENCY ANEMIA, UNSPECIFIED (4) Parkinsonian syndrome Code(s): G20 - PARKINSON'S DISEASE Qualifiers: Parkinsonism type: unspecified Qualified Code(s): G20 - Parkinson's disease (5) S/P left hemicolectomy Code(s): Z90.49 - ACQUIRED ABSENCE OF OTHER SPECIFIED PARTS OF DIGESTIVE TRACT (6) Acute on chronic diastolic (congestive) heart failure Code(s): I50.33 - ACUTE ON CHRONIC DIASTOLIC (CONGESTIVE) HEART FAILURE (7) Asthma Code(s): J45.909 - UNSPECIFIED ASTHMA, UNCOMPLICATED Qualifiers: Asthma severity: mild Asthma persistence: intermittent Asthma complication type: unspecified Qualified Code(s): J45.20 - Mild intermittent asthma, uncomplicated (8) Atrial fibrillation Code(s): I48.91 - UNSPECIFIED ATRIAL FIBRILLATION Qualifiers: Atrial fibrillation type: persistent Qualified Code(s): I48.1 - Persistent atrial fibrillation (9) CAD (coronary artery disease) Code(s): I25.10 - ATHSCL HEART DISEASE OF [place] CORONARY ARTERY W/O ANG PCTRS Qualifiers: Coronary Disease-Associated Artery/Lesion type: [place] artery [place] vs. transplanted heart: [place] heart Associated angina: without angina Qualified Code(s): I25.10 - Atherosclerotic heart disease of [place] coronary artery without angina pectoris (10) CHF (congestive heart failure) Code(s): I50.9 - HEART FAILURE, UNSPECIFIED (11) CVA (cerebral vascular accident) Code(s): I63.9 - CEREBRAL INFARCTION, UNSPECIFIED Qualifiers: CVA mechanism: unspecified Qualified Code(s): I63.9 - Cerebral infarction, unspecified (12) Diabetes mellitus Code(s): E11.9 - TYPE 2 DIABETES MELLITUS WITHOUT COMPLICATIONS Qualifiers: Diabetes mellitus type: type 2 Diabetes mellitus intermediate insulin use: without intermission coordinator use Diabetes mellitus complication status: without complication Qualified Code(s): E11.9 - Type 2 diabetes mellitus without complications (13) Hyperthyroidism Code(s): E05.90 - THYROTOXICOSIS, UNSP WITHOUT THYROTOXIC CRISIS OR STORM (14) Reactive airway disease Code(s): J45.909 - UNSPECIFIED ASTHMA, UNCOMPLICATED Qualifiers: Asthma severity: unspecified severity Asthma persistence: unspecified Asthma complication type: uncomplicated Qualified Code(s): J45.909 - Unspecified asthma, uncomplicated Assessment/Plan 1. Post Left hemicolectomy for invasive adenocarcinoma 2. Coronary artery disease angina pectoris 3. Diastolic left ventricular dysfunction with chronic class I [place] [employer] classification left ventricular failure compensated euvolemic 4. Paroxysmal atrial fibrillation [id number] of 6, currently in sinus rhythm off NOAC's, previous DCCV 5. HTN/HCVD 6. Diabetes mellitus 7. Parkinson's disease 8. Hyperthyroidism 9. History of reactive airway disease/bronchial asthma 10. H. pylori gastritis PLAN: 1. Follow up pathology and Oncology follow up 2. Continue Toprol XL 50 mg QD, and resume Losartan as hemodynamics tolerate. Eliquis is to be resumed once post-op hemostasis has been achieved 3. May use IV Lopressor or even Cardizem IV for added rate control 4. Monitor CBC post transfusion to maintain Hgb > 8.0 5. Await recovery of bowel function Further plans are to follow Johann Cowan MD
[2019-02-26 10:45] LABS: ANISOCYTOSIS 1+; MACROCYTOSIS 0; OVALOCYTE 1+; PLATELET ESTIMATE NORMAL
[2019-02-26] MEDS: PANTOPRAZOLE SODIUM 40 MG VIAL IVPUSH SCH (10:48)
[2019-02-26] MEDS: metoPROLOL SUCCINATE 25 MG TAB.SR.24H (FP) PO SCH (10:48)
[2019-02-26] MEDS: METHIMAZOLE 5 MG TABLET (FP) PO SCH (10:48)
[2019-02-26] MEDS: ASCORBIC ACID 500 MG TABLET (FP) PO SCH (10:49)
[2019-02-26] MEDS: FERROUS SO4 325 MG TABLET (FP) PO SCH (10:49)
--- NOTE | 2019-02-26 13:36 | PN ---
Teaching Attending Note Name of Resident: Alva Vazquez ATTENDING PHYSICIAN STATEMENT I saw and evaluated the patient. I reviewed the resident's note and discussed the case with the resident. I agree with the resident's findings and plan as documented. SUBJECTIVE: No fever or chills . No CERRATO , feels better today. wound was opened by surgical team this am , and left open with packing in. OBJECTIVE: NAD, awake, alert, cooperative CV: irreg irreg, no MRG Lungs: CTAB Abd: distended. + BS . mid line dressing was just changed by sx . 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 sx improved after opening the wound - case d/w Dr. elias, signs of infection were seen when wound was opened - per dr. elias, facia was intact and infection was superficial. No need for Ct scan - give zosyn x 1 . consult ID - trial of clears today 2- Rectal bleed: while on eliquis after sx . stable HB . - monitor off eliquis. will need full colonoscopy after recovery form her sx any way 3- Iron def anemia: cont iron supp 4- Afib: rate is better controled. - can take her PO BB now since nausea is better - PRN IV metorpolol - tele reviewed. 5-h/o of heart failure( unknown type): hold lasix and hold IVF . if she cont with poor po intake, then will add IVF back 6- H/o hyperthyroidism; - cont decreased dose of methimazole 7- Mediastinal LAP , to be followed as out pt HLOC . code status : d/w her and her family yesterday. DNR/DNI
--- NOTE | 2019-02-26 14:57 | CON.ID ---
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 Cardio/Vascular: Yes: AFIB, HTN Pulmonary: Yes: Asthma Endocrine: Yes: Hyperthyroidism Additional Medical History: Glaucoma - Past Surgical History Past Surgical History: Yes: Hysterectomy - Alcohol/Substance Use Hx Alcohol Use: No - Smoking History Smoking history: Never smoked Have you smoked in the past 12 months: No Aproximately how many cigarettes per day: 0 Home Medications - Allergies Allergies/Adverse Reactions: Allergies Allergy/AdvReac Type Severity Reaction Status Date / Time No Known Allergies Allergy Verified 02/14/19 10:37 - Home Medications Home Medications: Ambulatory Orders Bimatoprost [Lumigan] 1 drop OU DAILY 04/09/17 Apixaban [Eliquis -] 5 mg PO BID #60 tab 04/13/17 Brimonidine Tartrate/Timolol [Combigan 0.2%-0.5% Eye Drops] 5 ml OU BID Metoprolol Succinate [Toprol Xl] 25 mg PO DAILY 02/17/18 Latanoprost 0.005% Eye Drops [Xalatan 0.005% Eye Drops -] 1 drop HS 02/14/19 Losartan Potassium 50 mg PO BID 02/14/19 Methimazole 5 mg PO TID 02/14/19 Physical Exam Vital Signs: Vital Signs Temperature 98.5 F 02/26/19 09:00 Pulse Rate 118 H 02/26/19 09:00 Respiratory Rate 18 02/26/19 09:00 Blood Pressure 114/55 L 02/26/19 09:00 O2 Sat by Pulse Oximetry (%) 97 02/26/19 09:00 Labs: CBC, BMP 02/26/19 05:30 02/25/19 06:45
--- NOTE | 2019-02-26 15:01 | CON.ID ---
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 Cardio/Vascular: Yes: AFIB, HTN Pulmonary: Yes: Asthma Endocrine: Yes: Hyperthyroidism Additional Medical History: Glaucoma - Past Surgical History Past Surgical History: Yes: Hysterectomy - Alcohol/Substance Use Hx Alcohol Use: No - Smoking History Smoking history: Never smoked Have you smoked in the past 12 months: No Aproximately how many cigarettes per day: 0 Home Medications - Allergies Allergies/Adverse Reactions: Allergies Allergy/AdvReac Type Severity Reaction Status Date / Time No Known Allergies Allergy Verified 02/14/19 10:37 - Home Medications Home Medications: Ambulatory Orders Bimatoprost [Lumigan] 1 drop OU DAILY 04/09/17 Apixaban [Eliquis -] 5 mg PO BID #60 tab 04/13/17 Brimonidine Tartrate/Timolol [Combigan 0.2%-0.5% Eye Drops] 5 ml OU BID Metoprolol Succinate [Toprol Xl] 25 mg PO DAILY 02/17/18 Latanoprost 0.005% Eye Drops [Xalatan 0.005% Eye Drops -] 1 drop HS 02/14/19 Losartan Potassium 50 mg PO BID 02/14/19 Methimazole 5 mg PO TID 02/14/19 Physical Exam Vital Signs: Vital Signs Temperature 98.5 F 02/26/19 09:00 Pulse Rate 118 H 02/26/19 09:00 Respiratory Rate 18 02/26/19 09:00 Blood Pressure 114/55 L 02/26/19 09:00 O2 Sat by Pulse Oximetry (%) 97 02/26/19 09:00 Labs: CBC, BMP 02/26/19 05:30 02/25/19 06:45
[2019-02-26] MEDS: PIPERACILLIN/TAZOB 3.375 GM 3.375 GM in DEXTROSE 5%-WATER - 50 ML IVPB SCH (18:37)
--- NOTE | 2019-02-26 19:30 | PN ---
Physical Exam: SUBJECTIVE: Patient seen and examined at bedside this morning. Patient was noted to have thick yellowish, foul smelling drainage on the wound with blood which soaked her dressing. She was evaluated by surgery, where wound was noted to be infected. Patrick removed, wound cleaned and left open with packing. Fat necrosis was also noted with fascia intact. Patient reports pain and tenderness around the wound area. Otherwise she denies any more episodes of vomiting and has tolerated clear liquid diet. No episodes of fever, chills, chest pain, SOB, diarrhea, urinary symptoms. OBJECTIVE: Vital Signs Temperature 99.2 F 02/26/19 17:00 Pulse Rate 103 H 02/26/19 17:00 Respiratory Rate 20 02/26/19 17:00 Blood Pressure 129/72 02/26/19 17:00 O2 Sat by Pulse Oximetry (%) 97 02/26/19 09:00 GENERAL: The patient is awake, alert, and fully oriented, in no acute distress. HEAD: Normal with no signs of trauma. EYES: PERRLA, EOMI, sclera anicteric, conjunctiva clear. NECK: Trachea midline, full range of motion, supple. LUNGS: Decreased breath sounds on bilateral bases. HEART: Tachycardic, no murmurs ABDOMEN: +diffuse tenderness, +distention, +foul smelling, thick yellowish fluid and blood draining from the wound EXTREMITIES: 2+ pulses, warm, well-perfused, no edema. NEUROLOGICAL: Cranial nerves II through XII grossly intact. Normal speech, gait not observed. PSYCH: Normal mood, normal affect. Laboratory Results - last 24 hr 02/20/19 02/25/19 02/26/19 06:00 21:44 05:30 WBC 9.1 RBC 3.84 Hgb 9.4 L Hct 29.8 L MCV 77.5 L MCH 24.5 L MCHC 31.6 L RDW 27.9 H Plt Count 320 MPV 7.9 Absolute Neuts (auto) 7.3 Neutrophils % 80.2 D Lymphocytes % 6.6 L D Monocytes % 9.9 Eosinophils % 3.0 Basophils % 0.3 Nucleated RBC % 0 Hypochromia 1+ Platelet Estimate Normal Polychromasia 1+ Poikilocytosis 0 Anisocytosis 1+ Microcytosis 1+ Macrocytosis 0 Ovalocytes 1+ POC Glucometer 107 Blood Type O POSITIVE Antibody Screen Negative Crossmatch See Detail 02/26/19 02/26/19 02/26/19 05:54 12:30 17:47 WBC RBC Hgb Hct MCV MCH MCHC RDW Plt Count MPV Absolute Neuts (auto) Neutrophils % Lymphocytes % Monocytes % Eosinophils % Basophils % Nucleated RBC % Hypochromia Platelet Estimate Polychromasia Poikilocytosis Anisocytosis Microcytosis Macrocytosis Ovalocytes POC Glucometer 96 108 114 Blood Type Antibody Screen Crossmatch Active Medications Generic Name Dose Route Start Last Admin Trade Name Freq PRN Reason Stop Dose Admin Acetaminophen 650 mg 02/25/19 14:11 02/26/19 10:09 Tylenol - PO 650 mg Q6H PRN Administration Fever Or Pain Ascorbic Acid 500 mg 02/26/19 10:00 02/26/19 10:49 Vitamin C - PO 500 mg DAILY [facility] Administration Benzocaine/Menthol 1 each 02/25/19 14:11 Cepacol Lozenge - MM PRN PRN SORE THROAT Ferrous Sulfate 325 mg 02/26/19 10:00 02/26/19 10:49 Feosol - PO 325 mg DAILY [facility] Administration Piperacillin Sod/Tazobactam 50 mls @ 100 mls/hr 02/26/19 18:00 02/26/19 18:37 Sod 3.375 gm/ Dextrose IVPB 100 mls/hr Q8H-IV [facility] Administration Protocol Insulin Aspart 1 vial 02/25/19 16:30 02/26/19 18:01 Novolog Vial Sliding Scale - SQ Not Given ACHS [facility] Protocol Methimazole 5 mg 02/26/19 10:00 02/26/19 10:48 Tapazole - PO 5 mg DAILY [facility] Administration Metoprolol Succinate 25 mg 02/25/19 21:15 02/26/19 10:48 Toprol Xl - PO 25 mg DAILY [facility] Administration Metoprolol Tartrate 5 mg 02/25/19 17:27 02/26/19 01:41 Lopressor Injection - IVPUSH 5 mg Q4H PRN Administration HYPERTENSION Morphine Sulfate 2 mg 02/25/19 14:11 02/26/19 15:25 Morphine Sulfate IVPUSH 2 mg Q4H PRN Administration PAIN LEVEL 6-10 Ondansetron HCl 4 mg 02/25/19 14:11 Zofran Injection IVPUSH Q6H PRN NAUSEA Pantoprazole Sodium 40 mg 02/26/19 10:00 02/26/19 10:48 Protonix Iv IVPUSH 40 mg DAILY [facility] Administration ASSESSMENT/PLAN: Patient is an 83 year old female with past medical history of A.fib, DM, HTN, Hyperthyroidism, presented to the ED with worsening abdominal pain and anemia and was subsequently found to have a colonic mass. 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 -Surgery (Dr. Alvarado) consulted. Recommendations appreciated. -Dressing changed today. Stewart removed and wound left open with packing. -Wound culture -Resume clear liquid diet -Monitor WBC -Tylenol 650mg PO for fever > 100.3F -Morphine PRN for pain -Physical therapy and Incentive spirometry -ID (DR. Richmond) consulted. Recommendations appreciated. -Start Zosyn 3.375gm q8h -Heme/Onc consulted. #Microcytic anemia -likely 2/2 Iron deficiency anemia -will continue to monitor -Transfuse if Hgb<8 since cardiac patient #Rectal bleed -will continue to monitor H/H while off eliquis -would need colonoscopy upon recovery for further evaluation #Atrial fibrillation -rate is better controlled at 110-120 -Continue Toprol 50mg daily -IV Lopressor 5mg PRN -Eliquis on hold #DM -Hold home meds -Insulin sliding scale implemented -BGM ACHS #HTN:controlled -Continue Toprol 50mg daily #Hyperthyroidism -Continue home Methimazole 5mg daily -Repeat TFTs as outpatient #Hx of heart failure -stable -Holding lasix and IV fluids #FEN -Not on any standing fluids -Encourage increased oral fluid intake -Electrolytes wnl, routine bmp monitoring -Clear liquid diet #Prophylaxis -SCDs -holding eliquis in light of bleeding #Disposition -full code -Discussed with daughter and patient in length regarding patient's code status and it was decided that family and patient will rescind the DNR/DNI status. Visit type - Emergency Visit Emergency Visit: Yes ED Registration Date: 02/15/19 Care time: The patient presented to the Emergency Department on the above date and was hospitalized for further evaluation of their emergent condition. - New Patient This patient is new to me today: Yes Date on this admission: 02/26/19 - Critical Care Critical Care patient: No
[2019-02-27] MEDS: MORPHINE SULFATE 2 MG/ML VIAL IVPUSH PRN ×4 (01:03→20:29)
[2019-02-27] MEDS ORDERED: PIPERACILLIN/TAZOBACTAM 3.375 GM VIAL IVPB ONE ×3 (01:08→17:16)
[2019-02-27] MEDS ORDERED: DEXTROSE 5%-WATER - 50 ML IVPB ONE ×3 (01:08→17:16)
[2019-02-27] MEDS: PIPERACILLIN/TAZOB 3.375 GM 3.375 GM in DEXTROSE 5%-WATER - 50 ML IVPB SCH ×3 (01:09→17:36)
[2019-02-27] MEDS: ACETAMINOPHEN 325 MG TABLET (FP) PO PRN (06:35)
[2019-02-27 07:44] LABS: BASO % 0.7 % (0-2.0); HEMATOCRIT 30.1 % (32.4-45.2); HEMOGLOBIN 9.6 GM/dL (10.7-15.3); LYMPH % 10.8 % (8-40); MCH 24.4 pg (25.7-33.7); MCHC 31.8 g/dl (32.0-36.0); MEAN CELL VOLUME 76.9 fl (80-96); MEAN PLT VOLUME 7.8 fl (7.5-11.1); MONO % 11.8 % (3.8-10.2); NEUT % 71.7 % (42.8-82.8); PLATELET COUNT 378 K/MM3 (134-434); RBC 3.91 M/mm3 (3.60-5.2); RDW 28.8 % (11.6-15.6)
[2019-02-27] MEDS ORDERED: oxyCODONE HCL 5 MG TABLET PO PRN (08:05)
--- NOTE | 2019-02-27 08:09 | PN ---
Progress Note (short form) - Note Progress Note: Surgery POD #7 s/p Left colectomy patient seen and examined at the bedside. Nursing reports the patient has been tolerating her clears and OOB to bathroom. Patient had a small bm last night. Family at bedside stated her pain has not been controlled and the patient complained about pain overnight. Nursing reports no events overnight. Vital Signs Temp 98.2 F 02/27/19 06:00 Pulse 126 H 02/27/19 06:00 Resp 20 02/27/19 06:00 BP 135/88 02/27/19 06:00 Pulse Ox 95 02/26/19 21:00 Intake & Output 02/26/19 02/26/19 02/27/19 11:59 23:59 11:59 Intake Total 120 320 Output Total 250 Balance 120 70 Intake: IV 0 none 0 Oral 120 320 Output: Urine 250 Void 250 Other: Voiding Method Bedpan Diaper # Unmeasured Voids Void 1 1 Bowel Movement Yes: Medium Solid # Bowel Movements 1 CBC, BMP 02/27/19 05:15 02/27/19 05:15 PE Gen: nad, resting comfortably ABD: Obese, Softly mildly distended. midline incision lucius intact. Mild periwound erythema along borders. Malodorous discharge noted. lucius at the umbilicus. irrigation with 1L sterile water. Deep fascia intact. No joe, pus. + fat necrosis LE: SCDs bilat. Soft. NT Problem List - Problems (1) Colonic mass Assessment/Plan: POD #7 s/p Left colectomy, splenic flexure takedown and primary anastamosis ( Adenocarcinoma). (Patient seen with Dr Alvarado.) 1) pain regimen revised 2) f/u Wound culture 3) Tight glycemic control 4) Monitor WBC 5) Physical therapy to mobilize 6) Incentive spirometer 7) advance to Full Liquids diet Code(s): K63.9 - DISEASE OF INTESTINE, UNSPECIFIED
[2019-02-27] MEDS: INSULIN SLIDING SCALE (NOVOLOG) 1 VIAL SQ SCH ×4 (08:10→21:53)
[2019-02-27 08:15] LABS: ANION GAP 6 MMOL/L (8-16); BLOOD UREA NITROGEN 12 mg/dL (7-18); CALCIUM 8.2 mg/dL (8.5-10.1); CHLORIDE 107 mmol/L (98-107); CO2 30 mmol/L (21-32); CREATININE 0.5 mg/dL (0.55-1.3); GLUCOSE,RANDOM 106 mg/dL (74-106); PHOSPHOROUS 3.2 mg/dL (2.5-4.9); POTASSIUM 3.9 mmol/L (3.5-5.1); SODIUM 143 mmol/L (136-145)
--- NOTE | 2019-02-27 09:02 | PN ---
Progress Note, Physician Chief Complaint: Events noted Post op abdominal surgery AF with RVR History of Present Illness: Patient was seen and examined. Awake and alert. Chart was reviewed Post op abdominal discomfort at the surgical site being cared for AF with RVR - Current Medication List Current Medications: Active Medications Acetaminophen (Tylenol -) 650 mg PO Q6H PRN PRN Reason: Fever Or Pain Last Admin: 02/27/19 06:35 Dose: 650 mg Ascorbic Acid (Vitamin C -) 500 mg PO DAILY [facility] Last Admin: 02/26/19 10:49 Dose: 500 mg Benzocaine/Menthol (Cepacol Lozenge -) 1 each MM PRN PRN PRN Reason: SORE THROAT Docusate Sodium (Colace -) 100 mg PO TID [facility] Ferrous Sulfate (Feosol -) 325 mg PO DAILY [facility] Last Admin: 02/26/19 10:49 Dose: 325 mg Piperacillin Sod/Tazobactam (Sod 3.375 gm/ Dextrose) 50 mls @ 100 mls/hr IVPB Q8H-IV [facility]; Protocol Last Admin: 02/27/19 01:09 Dose: 100 mls/hr Insulin Aspart (Novolog Vial Sliding Scale -) 1 vial SQ ACHS [facility]; Protocol Last Admin: 02/27/19 08:10 Dose: Not Given Methimazole (Tapazole -) 5 mg PO DAILY [facility] Last Admin: 02/26/19 10:48 Dose: 5 mg Metoprolol Succinate (Toprol Xl -) 25 mg PO DAILY [facility] Last Admin: 02/26/19 10:48 Dose: 25 mg Metoprolol Tartrate (Lopressor Injection -) 5 mg IVPUSH Q4H PRN PRN Reason: HYPERTENSION Last Admin: 02/26/19 23:50 Dose: 5 mg Morphine Sulfate (Morphine Injection -) 2 mg IVPUSH Q6H PRN PRN Reason: breakthrough pain Ondansetron HCl (Zofran Injection) 4 mg IVPUSH Q6H PRN PRN Reason: NAUSEA Oxycodone HCl (Roxicodone -) 5 mg PO Q4H PRN PRN Reason: PAIN LEVEL 1-5 Oxycodone HCl (Roxicodone -) 10 mg PO Q4H PRN PRN Reason: PAIN LEVEL 6-10 Pantoprazole Sodium (Protonix Iv) 40 mg IVPUSH DAILY [facility] Last Admin: 02/26/19 10:48 Dose: 40 mg - Objective Vital Signs: Vital Signs Temperature 98.2 F 02/27/19 06:00 Pulse Rate 126 H 02/27/19 06:00 Respiratory Rate 20 02/27/19 06:00 Blood Pressure 135/88 02/27/19 06:00 O2 Sat by Pulse Oximetry (%) 95 02/26/19 21:00 Eyes: Yes: PERRL HENT: Yes: Atraumatic Neck: Yes: Supple Cardiovascular: Yes: Tachycardia, Pulse Irregular, S1, S2 Respiratory: Yes: CTA Bilaterally Gastrointestinal: Yes: Other (Post op) Edema: No Additional Findings/Remarks: - Review of Systems Constitutional: denies: Chills, Fever Cardiovascular: denies: Chest Pain. denies: Palpitations, Shortness of Breath Respiratory: denies Cough. denies: Hemoptysis, Orthopnea, PND, SOB, SOB on Exertion Gastrointestinal: denies: Abdominal Pain, Constipation, Diarrhea, Melena, Nausea , Rectal Bleeding, Vomiting Neurological: denies: Dizziness, Headache, Seizure, Syncope Labs: CBC, BMP 02/27/19 05:15 02/27/19 05:15 Problem List - Problems (1) Colonic mass Code(s): K63.9 - DISEASE OF INTESTINE, UNSPECIFIED (2) Malignant neoplasm of left colon Code(s): C18.6 - MALIGNANT NEOPLASM OF DESCENDING COLON (3) Microcytic anemia Code(s): D50.9 - IRON DEFICIENCY ANEMIA, UNSPECIFIED (4) Parkinsonian syndrome Code(s): G20 - PARKINSON'S DISEASE Qualifiers: Parkinsonism type: unspecified Qualified Code(s): G20 - Parkinson's disease (5) S/P left hemicolectomy Code(s): Z90.49 - ACQUIRED ABSENCE OF OTHER SPECIFIED PARTS OF DIGESTIVE TRACT (6) Acute on chronic diastolic (congestive) heart failure Code(s): I50.33 - ACUTE ON CHRONIC DIASTOLIC (CONGESTIVE) HEART FAILURE (7) Asthma Code(s): J45.909 - UNSPECIFIED ASTHMA, UNCOMPLICATED Qualifiers: Asthma severity: mild Asthma persistence: intermittent Asthma complication type: unspecified Qualified Code(s): J45.20 - Mild intermittent asthma, uncomplicated (8) Atrial fibrillation Code(s): I48.91 - UNSPECIFIED ATRIAL FIBRILLATION Qualifiers: Atrial fibrillation type: persistent Qualified Code(s): I48.1 - Persistent atrial fibrillation (9) CAD (coronary artery disease) Code(s): I25.10 - ATHSCL HEART DISEASE OF [place] CORONARY ARTERY W/O ANG PCTRS Qualifiers: Coronary Disease-Associated Artery/Lesion type: [place] artery [place] vs. transplanted heart: [place] heart Associated angina: without angina Qualified Code(s): I25.10 - Atherosclerotic heart disease of [place] coronary artery without angina pectoris (10) CHF (congestive heart failure) Code(s): I50.9 - HEART FAILURE, UNSPECIFIED (11) CVA (cerebral vascular accident) Code(s): I63.9 - CEREBRAL INFARCTION, UNSPECIFIED Qualifiers: CVA mechanism: unspecified Qualified Code(s): I63.9 - Cerebral infarction, unspecified (12) Diabetes mellitus Code(s): E11.9 - TYPE 2 DIABETES MELLITUS WITHOUT COMPLICATIONS Qualifiers: Diabetes mellitus type: type 2 Diabetes mellitus assisted insulin use: without assisted use Diabetes mellitus complication status: without complication Qualified Code(s): E11.9 - Type 2 diabetes mellitus without complications (13) Hyperthyroidism Code(s): E05.90 - THYROTOXICOSIS, UNSP WITHOUT THYROTOXIC CRISIS OR STORM (14) Reactive airway disease Code(s): J45.909 - UNSPECIFIED ASTHMA, UNCOMPLICATED Qualifiers: Asthma severity: unspecified severity Asthma persistence: unspecified Asthma complication type: uncomplicated Qualified Code(s): J45.909 - Unspecified asthma, uncomplicated Assessment/Plan 1. Post Left hemicolectomy for invasive adenocarcinoma 2. Coronary artery disease angina pectoris 3. Diastolic left ventricular dysfunction with chronic class I [place] [employer] classification left ventricular failure compensated euvolemic 4. Paroxysmal atrial fibrillation [id number] of 6 - currently in AF with RVR 5. HTN/HCVD 6. Diabetes mellitus 7. Parkinson's disease 8. Hyperthyroidism 9. History of reactive airway disease/bronchial asthma 10. H. pylori gastritis PLAN: 1. Oncology follow up 2. Change Toprol XL 25 mg to BID, and resume Losartan as hemodynamics tolerate. Eliquis is to be resumed once post-op hemostasis has been achieved - will need to check with Surgery 3. May use IV Lopressor or even Cardizem IV for added rate control 4. Monitor CBC post transfusion to maintain Hgb > 8.0 5. Await recovery of bowel function Further plans are to follow Johann Cowan MD
[2019-02-27] MEDS ORDERED: dilTIAZem HCL 50 MG/10 ML - 10 ML VIAL IVPUSH ONE (09:03)
[2019-02-27] MEDS: oxyCODONE HCL 5 MG TABLET PO PRN ×3 (09:18→22:15)
[2019-02-27] MEDS: METHIMAZOLE 5 MG TABLET (FP) PO SCH (10:44)
[2019-02-27] MEDS: PANTOPRAZOLE SODIUM 40 MG VIAL IVPUSH SCH (10:44)
[2019-02-27] MEDS: ASCORBIC ACID 500 MG TABLET (FP) PO SCH (10:44)
[2019-02-27] MEDS: FERROUS SO4 325 MG TABLET (FP) PO SCH (10:45)
[2019-02-27] MEDS: metoPROLOL SUCCINATE 25 MG TAB.SR.24H (FP) PO SCH ×2 (10:50→22:15)
[2019-02-27] MEDS: METOPROLOL TARTRATE 5 MG/5 ML VIAL IVPUSH PRN (13:18)
--- NOTE | 2019-02-27 14:32 | PN ---
Progress Note, Physician History of Present Illness: patient feeling better dressing was changed twice - Current Medication List Current Medications: Active Medications Acetaminophen (Tylenol -) 650 mg PO Q6H PRN PRN Reason: Fever Or Pain Last Admin: 02/27/19 06:35 Dose: 650 mg Ascorbic Acid (Vitamin C -) 500 mg PO DAILY [facility] Last Admin: 02/27/19 10:44 Dose: 500 mg Benzocaine/Menthol (Cepacol Lozenge -) 1 each MM PRN PRN PRN Reason: SORE THROAT Docusate Sodium (Colace -) 100 mg PO TID [facility] Ferrous Sulfate (Feosol -) 325 mg PO DAILY [facility] Last Admin: 02/27/19 10:45 Dose: 325 mg Piperacillin Sod/Tazobactam (Sod 3.375 gm/ Dextrose) 50 mls @ 100 mls/hr IVPB Q8H-IV [facility]; Protocol Last Admin: 02/27/19 11:41 Dose: 100 mls/hr Insulin Aspart (Novolog Vial Sliding Scale -) 1 vial SQ ACHS [facility]; Protocol Last Admin: 02/27/19 13:14 Dose: Not Given Methimazole (Tapazole -) 5 mg PO DAILY [facility] Last Admin: 02/27/19 10:44 Dose: 5 mg Metoprolol Succinate (Toprol Xl -) 25 mg PO BID [facility] Last Admin: 02/27/19 10:50 Dose: 25 mg Metoprolol Tartrate (Lopressor Injection -) 5 mg IVPUSH Q4H PRN PRN Reason: HYPERTENSION Last Admin: 02/27/19 13:18 Dose: 5 mg Morphine Sulfate (Morphine Sulfate) 2 mg IVPUSH Q6H PRN PRN Reason: breakthrough pain Last Admin: 02/27/19 11:26 Dose: 2 mg Ondansetron HCl (Zofran Injection) 4 mg IVPUSH Q6H PRN PRN Reason: NAUSEA Oxycodone HCl (Roxicodone -) 5 mg PO Q4H PRN PRN Reason: PAIN LEVEL 1-5 Oxycodone HCl (Roxicodone -) 10 mg PO Q4H PRN PRN Reason: PAIN LEVEL 6-10 Last Admin: 02/27/19 13:19 Dose: 10 mg Pantoprazole Sodium (Protonix Iv) 40 mg IVPUSH DAILY [facility] Last Admin: 02/27/19 10:44 Dose: 40 mg Senna (Senna -) 1 tab PO BID [facility] - Objective Vital Signs: Vital Signs Temperature 97.3 F L 02/27/19 14:00 Pulse Rate 105 H 02/27/19 14:00 Respiratory Rate 20 02/27/19 14:00 Blood Pressure 131/65 02/27/19 14:00 O2 Sat by Pulse Oximetry (%) 95 02/26/19 21:00 Constitutional: Yes: No Distress, Calm Cardiovascular: Yes: Regular Rate and Rhythm Respiratory: Yes: Regular, CTA Bilaterally Gastrointestinal: Yes: Normal Bowel Sounds, Soft Musculoskeletal: Yes: WNL Extremities: Yes: WNL Wound/Incision: Yes: Dressing Dry and Intact Neurological: Yes: Alert, Oriented Psychiatric: Yes: Alert, Oriented Labs: CBC, BMP 02/27/19 05:15 02/27/19 05:15 INR, PTT INR 1.09 (0.83-1.09) 02/20/19 06:00 Assessment/Plan 83 y/o lady with h/o A fib, s/p cardioversion, on AC, DM, CHF, hypertension, hyperthyroidism, heart failure, and family hx of Dalton syndrome who presented with anemia and was found to have colon cancer adeno ca of colon rectal bleed anemia afib hyperthyroidism plan continue current abx wound care rest as per the team
[2019-02-27] MEDS: DOCUSATE SODIUM 100 MG CAPSULE (FP) PO SCH ×2 (17:38→22:16)
--- NOTE | 2019-02-27 18:32 | PN ---
Teaching Attending Note Name of Resident: Alva Vazquez ATTENDING PHYSICIAN STATEMENT I saw and evaluated the patient. I reviewed the resident's note and discussed the case with the resident. I agree with the resident's findings and plan as documented. SUBJECTIVE: no fever or chills. No CERRATO . has abd pain, but better . no N/v. tolerated diet . OBJECTIVE: NAD, awake, alert, cooperative. CV: irreg irreg, no MRG Lungs: CTAB Abd: distended. + BS . clean packed wound. no discharge , no surrounding erythema Ext : no edema or erythema ASSESSMENT AND PLAN: 83 y/o lady with h/o A fib, s/p cardioversion, on AC, DM, CHF, hypertension, hyperthyroidism, heart failure, and family hx of Dalton syndrome who presented with anemia and was found to have colon cancer 1- Invasive adenocarcinoma of colon T3N0, s/p partial colectomy. infected wound with intact fascia - cont zosyn - wound packing 2- Rectal bleed: while on eliquis after sx. stable HB . - monitor off eliquis. - will resume when stable , and OK with sx . 3- Iron def anemia: cont iron supp 4- Afib: appreicate card input - toprol BID - PRN IV metorpolol 5-h/o of heart failure( unknown type): hold lasix and hold IVF . euvolemic now 6- H/o hyperthyroidism; - cont decreased dose of methimazole 7- Mediastinal LAP , to be followed as out pt HLOC . Code status was revised by patient and her family. full code now
--- NOTE | 2019-02-27 19:06 | PN ---
Physical Exam: SUBJECTIVE: Patient seen and examined at bedside this morning. No acute events overnight. Patient still reports abdominal pain but improved and relieved by Tylenol and morphine. No blood noted on stool. Patient remains afebrile. OBJECTIVE: Vital Signs Temperature 97.5 F L 02/27/19 18:00 Pulse Rate 113 H 02/27/19 18:00 Respiratory Rate 18 02/27/19 18:00 Blood Pressure 125/74 02/27/19 18:00 O2 Sat by Pulse Oximetry (%) 97 02/27/19 09:00 GENERAL: The patient is awake, alert, and fully oriented, in no acute distress. HEAD: Normal with no signs of trauma. EYES: PERRLA, EOMI, sclera anicteric, conjunctiva clear. NECK: Trachea midline, full range of motion, supple. LUNGS: Decreased breath sounds on bilateral bases. HEART: Tachycardic, no murmurs ABDOMEN: +diffuse tenderness, +distention, +foul smelling wound, minimal drainage noted on dressing. EXTREMITIES: 2+ pulses, warm, well-perfused, no edema. NEUROLOGICAL: Cranial nerves II through XII grossly intact. Normal speech, gait not observed. PSYCH: Normal mood, normal affect. Laboratory Results - last 24 hr 02/26/19 02/27/19 02/27/19 21:57 05:15 05:15 WBC 6.0 RBC 3.91 Hgb 9.6 L Hct 30.1 L MCV 76.9 L MCH 24.4 L MCHC 31.8 L RDW 28.8 H Plt Count 378 MPV 7.8 Absolute Neuts (auto) 4.3 Neutrophils % 71.7 Lymphocytes % 10.8 D Monocytes % 11.8 H Eosinophils % 5.0 H Basophils % 0.7 Nucleated RBC % 0 Sodium 143 Potassium 3.9 Chloride 107 Carbon Dioxide 30 Anion Gap 6 L BUN 12 Creatinine 0.5 L Creat Clearance w eGFR 118.12 POC Glucometer 119 Random Glucose 106 Calcium 8.2 L Phosphorus 3.2 Magnesium 2.0 02/27/19 02/27/19 02/27/19 06:55 11:46 16:43 WBC RBC Hgb Hct MCV MCH MCHC RDW Plt Count MPV Absolute Neuts (auto) Neutrophils % Lymphocytes % Monocytes % Eosinophils % Basophils % Nucleated RBC % Sodium Potassium Chloride Carbon Dioxide Anion Gap BUN Creatinine Creat Clearance w eGFR POC Glucometer 114 119 107 Random Glucose Calcium Phosphorus Magnesium Active Medications Generic Name Dose Route Start Last Admin Trade Name Freq PRN Reason Stop Dose Admin Acetaminophen 650 mg 02/25/19 14:11 02/27/19 06:35 Tylenol - PO 650 mg Q6H PRN Administration Fever Or Pain Ascorbic Acid 500 mg 02/26/19 10:00 02/27/19 10:44 Vitamin C - PO 500 mg DAILY [facility] Administration Benzocaine/Menthol 1 each 02/25/19 14:11 Cepacol Lozenge - MM PRN PRN SORE THROAT Docusate Sodium 100 mg 02/27/19 14:00 02/27/19 17:38 Colace - PO 100 mg TID [facility] Administration Ferrous Sulfate 325 mg 02/26/19 10:00 02/27/19 10:45 Feosol - PO 325 mg DAILY [facility] Administration Piperacillin Sod/Tazobactam 50 mls @ 100 mls/hr 02/26/19 18:00 02/27/19 17:36 Sod 3.375 gm/ Dextrose IVPB 100 mls/hr Q8H-IV [facility] Administration Protocol Insulin Aspart 1 vial 02/25/19 16:30 02/27/19 17:32 Novolog Vial Sliding Scale - SQ Not Given ACHS [facility] Protocol Methimazole 5 mg 02/26/19 10:00 02/27/19 10:44 Tapazole - PO 5 mg DAILY [facility] Administration Metoprolol Succinate 25 mg 02/27/19 10:00 02/27/19 10:50 Toprol Xl - PO 25 mg BID [facility] Administration Metoprolol Tartrate 5 mg 02/25/19 17:27 02/27/19 13:18 Lopressor Injection - IVPUSH 5 mg Q4H PRN Administration HYPERTENSION Morphine Sulfate 2 mg 02/27/19 08:38 02/27/19 11:26 Morphine Sulfate IVPUSH 2 mg Q6H PRN Administration breakthrough pain Ondansetron HCl 4 mg 02/25/19 14:11 Zofran Injection IVPUSH Q6H PRN NAUSEA Oxycodone HCl 5 mg 02/27/19 08:05 Roxicodone - PO Q4H PRN PAIN LEVEL 1-5 Oxycodone HCl 10 mg 02/27/19 08:05 02/27/19 13:19 Roxicodone - PO 10 mg Q4H PRN Administration PAIN LEVEL 6-10 Pantoprazole Sodium 40 mg 02/26/19 10:00 02/27/19 10:44 Protonix Iv IVPUSH 40 mg DAILY [facility] Administration Senna 1 tab 02/27/19 22:00 Senna - PO BID [facility] ASSESSMENT/PLAN: Patient is an 83 year old female with past medical history of A.fib, DM, HTN, Hyperthyroidism, presented to the ED with worsening abdominal pain and anemia and was subsequently found to have a colonic mass. #Colon Cancer: Invasive adenocarcinoma T3N0 -POD 7 left colectomy with splenic flexure takedown and primary anastomosis -Wound noted to have foul smelling, yellowish drainage. -Surgery (Dr. Alvarado) consulted. Recommendations appreciated. -Dressing changed today. -Wound culture - negative of any growth -Advance to full liquid diet -Monitor WBC -Tylenol 650mg PO for fever > 100.3F -Morphine PRN for pain -Physical therapy and Incentive spirometry -ID (DR. Richmond) consulted. Recommendations appreciated. -Zosyn 3.375gm q8h day 2 -Heme/Onc consulted. #Microcytic anemia -likely 2/2 Iron deficiency anemia -will continue to monitor -Transfuse if Hgb<8 since cardiac patient #Rectal bleed -will continue to monitor H/H while off eliquis -would need colonoscopy upon recovery for further evaluation #Atrial fibrillation -rate noted to at 120s -Cardiology (Dr. Cowan) consulted. REcs appreciated. -Change Toprol XL 25mg to BID and resume Losartan as hemodynamics tolerate. -IV Lopressor 5mg PRN -Eliquis on hold, will need to be resumed once post-op hemostasis has been achieved. #DM -Hold home meds -Insulin sliding scale implemented -BGM ACHS #HTN:controlled -Continue Toprol 50mg daily #Hyperthyroidism -Continue home Methimazole 5mg daily -Repeat TFTs as outpatient #Hx of heart failure -stable -Holding lasix and IV fluids #FEN -Not on any standing fluids -Encourage increased oral fluid intake -Electrolytes wnl, routine bmp monitoring -Clear liquid diet #Prophylaxis -SCDs -holding eliquis in light of bleeding #Disposition -full code Visit type - Emergency Visit Emergency Visit: Yes ED Registration Date: 02/15/19 Care time: The patient presented to the Emergency Department on the above date and was hospitalized for further evaluation of their emergent condition. - New Patient This patient is new to me today: Yes Date on this admission: 02/27/19 - Critical Care Critical Care patient: No
[2019-02-27] MEDS: SENNOSIDES 8.6MG TABLET (FP) PO SCH (22:16)
[2019-02-28] MEDS ORDERED: DEXTROSE 5%-WATER - 50 ML IVPB ONE ×3 (02:06→16:55)
[2019-02-28] MEDS ORDERED: PIPERACILLIN/TAZOBACTAM 3.375 GM VIAL IVPB ONE ×3 (02:06→16:55)
[2019-02-28] MEDS: MORPHINE SULFATE 2 MG/ML VIAL IVPUSH PRN ×2 (02:15→20:43)
[2019-02-28] MEDS: PIPERACILLIN/TAZOB 3.375 GM 3.375 GM in DEXTROSE 5%-WATER - 50 ML IVPB SCH ×3 (02:15→17:09)
[2019-02-28] MEDS: oxyCODONE HCL 5 MG TABLET PO PRN ×4 (03:31→23:36)
[2019-02-28] MEDS: INSULIN SLIDING SCALE (NOVOLOG) 1 VIAL SQ SCH ×4 (06:16→21:51)
[2019-02-28] MEDS: DOCUSATE SODIUM 100 MG CAPSULE (FP) PO SCH ×3 (06:16→21:51)
[2019-02-28 07:08] LABS: BASO % 0.4 % (0-2.0); EOS % 2.5 % (0-4.5); HEMATOCRIT 31.2 % (32.4-45.2); HEMOGLOBIN 9.8 GM/dL (10.7-15.3); LYMPH % 8.3 % (8-40); MCH 24.4 pg (25.7-33.7); MCHC 31.6 g/dl (32.0-36.0); MEAN CELL VOLUME 77.1 fl (80-96); MEAN PLT VOLUME 7.4 fl (7.5-11.1); MONO % 8.9 % (3.8-10.2); NEUT % 79.9 % (42.8-82.8); PLATELET COUNT 377 K/MM3 (134-434); RBC 4.04 M/mm3 (3.60-5.2); RDW 28.8 % (11.6-15.6); WHITE BLOOD COUNT 6.5 K/mm3 (4.0-10.0)
--- NOTE | 2019-02-28 08:18 | PN ---
Teaching Attending Note Name of Resident: Alva Vazquez ATTENDING PHYSICIAN STATEMENT I saw and evaluated the patient. I reviewed the resident's note and discussed the case with the resident. I agree with the resident's findings and plan as documented. SUBJECTIVE: Patient looks comfortable with no acute distress, daughter at bedside. OBJECTIVE: Vital Signs Temperature 98.6 F 02/28/19 05:00 Pulse Rate 119 H 02/28/19 05:00 Respiratory Rate 18 02/28/19 05:00 Blood Pressure 130/62 02/28/19 05:00 O2 Sat by Pulse Oximetry (%) 97 02/27/19 21:00 GENERAL: The patient is more awake, in no acute distress. positive for essential tremor. HEAD: Normal with no signs of trauma. EYES: PERRL, extraocular movements intact, sclera anicteric, conjunctiva clear. ENT: Ears normal, oropharynx clear without exudates, moist mucous membranes. NECK: Trachea midline, full range of motion, supple. LUNGS: Breath sounds equal, CTA bilaterally, no wheezes, no crackles, no accessory muscle use. HEART: irregularly-irregular with rate of 119, S1, S2 positive without murmur, rub or gallop. ABDOMEN: Soft, large abdomen, ND, normoactive bowel sounds, no guarding, no rebound, no masses are appreciated. EXTREMITIES: 2+ pulses, warm, well-perfused, no edema. NEUROLOGICAL: Cranial nerves II through XII grossly intact. Normal speech, gait not observed. PSYCH: Normal mood, normal affect. SKIN: Warm, dry, normal turgor, no rashes or lesions noted CBCD WBC 6.5 K/mm3 (4.0-10.0) 02/28/19 06:30 RBC 4.04 M/mm3 (3.60-5.2) 02/28/19 06:30 Hgb 9.8 GM/dL (10.7-15.3) L 02/28/19 06:30 Hct 31.2 % (32.4-45.2) L 02/28/19 06:30 MCV 77.1 fl (80-96) L 02/28/19 06:30 MCHC 31.6 g/dl (32.0-36.0) L 02/28/19 06:30 RDW 28.8 % (11.6-15.6) H 02/28/19 06:30 Plt Count 377 K/MM3 (134-434) 02/28/19 06:30 MPV 7.4 fl (7.5-11.1) L 02/28/19 06:30 CMP Sodium 143 mmol/L (136-145) 02/27/19 05:15 Potassium 3.9 mmol/L (3.5-5.1) 02/27/19 05:15 Chloride 107 mmol/L (98-107) 02/27/19 05:15 Carbon Dioxide 30 mmol/L (21-32) 02/27/19 05:15 Anion Gap 6 MMOL/L (8-16) L 02/27/19 05:15 BUN 12 mg/dL (7-18) 02/27/19 05:15 Creatinine 0.5 mg/dL (0.55-1.3) L 02/27/19 05:15 Creat Clearance w eGFR 118.12 (>60) 02/27/19 05:15 Random Glucose 106 mg/dL (74-106) 02/27/19 05:15 Calcium 8.2 mg/dL (8.5-10.1) L 02/27/19 05:15 Total Bilirubin 0.3 mg/dL (0.2-1) 02/19/19 07:00 AST 17 U/L (15-37) 02/19/19 07:00 ALT 14 U/L (13-61) 02/19/19 07:00 Alkaline Phosphatase 82 U/L (45-117) 02/19/19 07:00 Total Protein 5.8 g/dl (6.4-8.2) L 02/19/19 07:00 Albumin 2.9 g/dl (3.4-5.0) L 02/19/19 07:00 CARDIAC ENZYMES Troponin I 0.02 ng/ml (0.00-0.05) 02/14/19 12:18 Current Medications Generic Name Dose Route Start Last Admin Trade Name Freq PRN Reason Stop Dose Admin Acetaminophen 650 mg 02/25/19 14:11 02/27/19 06:35 Tylenol - PO 650 mg Q6H PRN Administration Fever Or Pain Ascorbic Acid 500 mg 02/26/19 10:00 02/27/19 10:44 Vitamin C - PO 500 mg DAILY [facility] Administration Benzocaine/Menthol 1 each 02/25/19 14:11 Cepacol Lozenge - MM PRN PRN SORE THROAT Docusate Sodium 100 mg 02/27/19 14:00 02/28/19 06:16 Colace - PO Not Given TID [facility] Ferrous Sulfate 325 mg 02/26/19 10:00 02/27/19 10:45 Feosol - PO 325 mg DAILY [facility] Administration Piperacillin Sod/Tazobactam 50 mls @ 100 mls/hr 02/26/19 18:00 02/28/19 02:15 Sod 3.375 gm/ Dextrose IVPB 100 mls/hr Q8H-IV [facility] Administration Protocol Insulin Aspart 1 vial 02/25/19 16:30 02/28/19 06:16 Novolog Vial Sliding Scale - SQ Not Given ACHS [facility] Protocol Methimazole 5 mg 02/26/19 10:00 02/27/19 10:44 Tapazole - PO 5 mg DAILY [facility] Administration Metoprolol Succinate 25 mg 02/27/19 10:00 02/27/19 22:15 Toprol Xl - PO 25 mg BID [facility] Administration Metoprolol Tartrate 5 mg 02/25/19 17:27 02/27/19 13:18 Lopressor Injection - IVPUSH 5 mg Q4H PRN Administration HYPERTENSION Morphine Sulfate 2 mg 02/27/19 08:38 02/28/19 02:15 Morphine Sulfate IVPUSH 2 mg Q6H PRN Administration breakthrough pain Ondansetron HCl 4 mg 02/25/19 14:11 02/27/19 21:54 Zofran Injection IVPUSH 4 mg Q6H PRN Administration NAUSEA Oxycodone HCl 5 mg 02/27/19 08:05 Roxicodone - PO Q4H PRN PAIN LEVEL 1-5 Oxycodone HCl 10 mg 02/27/19 08:05 02/28/19 03:31 Roxicodone - PO 10 mg Q4H PRN Administration PAIN LEVEL 6-10 Pantoprazole Sodium 40 mg 02/26/19 10:00 02/27/19 10:44 Protonix Iv IVPUSH 40 mg DAILY [facility] Administration Senna 1 tab 02/27/19 22:00 02/27/19 22:16 Senna - PO Not Given BID [facility] Home Medications Medication Instructions Recorded Bimatoprost [Lumigan] 1 drop OU DAILY 05/20/17 Apixaban [Eliquis -] 5 mg PO BID #60 tab 04/13/17 Brimonidine Tartrate/Timolol 5 ml OU BID 02/17/18 [Combigan 0.2%-0.5% Eye Drops] Metoprolol Succinate [Toprol Xl] 25 mg PO DAILY 02/17/18 Latanoprost 0.005% Eye Drops 1 drop HS 02/14/19 [Xalatan 0.005% Eye Drops -] Losartan Potassium 50 mg PO BID 02/14/19 Methimazole 5 mg PO TID 02/14/19 Pathology report: Partial transverse and left colon colectomy: invasive adenoca , moderately differentiated. tumor measures 8.2x4.6cm , located at the hepatic flexure. Tubular adenomas, tumor invades trought muscularis propia into pericolorectal tissue. surgical margins are negative and 20 lymph nodes are negative. 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 infected wound with intact fascia , continue zosyn and wound packing. ID and sx on the case. # Afib with RVR [id number] of 6: continue toprol BID, PRN IV metorpolol , cardio on the case. # Rectal bleed: while on eliquis after sx. stable HB . off eliquis for now due to GI bleed. # Iron def anemia: cont iron supp #Hx of CHF ( unknown type): Off lasix and IVF . euvolemic now # H/o hyperthyroidism; decreased dose of methimazole to 5mg # Mediastinal LAP , to be followed as out pt Code status was revised by patient and her family. full code now
[2019-02-28 08:23] LABS: ANION GAP 7 MMOL/L (8-16); BLOOD UREA NITROGEN 11 mg/dL (7-18); CALCIUM 7.5 mg/dL (8.5-10.1); CHLORIDE 107 mmol/L (98-107); CO2 32 mmol/L (21-32); CREATININE 0.6 mg/dL (0.55-1.3); GLUCOSE,RANDOM 134 mg/dL (74-106); MAGNESIUM 1.8 mg/dL (1.8-2.4); PHOSPHOROUS 3.2 mg/dL (2.5-4.9); POTASSIUM 3.6 mmol/L (3.5-5.1); SODIUM 146 mmol/L (136-145)
--- NOTE | 2019-02-28 09:24 | PN ---
Progress Note (short form) - Note Progress Note: 83yo F s/p Left colectomy, pt seen and examined at bedside. Pt denies fever, chills, n/v. Pt states that he abd pain has improved. Pt passing flatus and had BM yesterday. Last Vital Signs Temp Pulse Resp BP Pulse Ox 98.6 F 119 H 18 130/62 97 02/28/19 05:00 02/28/19 05:00 02/28/19 05:00 02/28/19 05:00 02/27/19 21:00 CBC, BMP 02/28/19 06:30 02/28/19 06:30 PE: Gen: A&O x3 Resp: breathing comfortably Abd: soft, nondistended, mild tenderness, incision is clean with good granulation tissue and serous drainage. Wet to dry dressing applied. Ext: no edema <Michele Burleson - Last Filed: 02/28/19 09:19> - Note Progress Note: Attending Surgeon POD#8 As noted above; w/c grew Staph; final ID pending; will f/u as needed. John Alvarado MD FACS <John Alvarado - Last Filed: 02/28/19 11:19> Problem List - Problems (1) S/P left hemicolectomy Assessment/Plan: Plan - adv diet -OOB/ambulate -daily dressing changes wet to dry -consider discharge with VNS services Will follow Code(s): Z90.49 - ACQUIRED ABSENCE OF OTHER SPECIFIED PARTS OF DIGESTIVE TRACT <Michele Burleson - Last Filed: 02/28/19 09:19>
[2019-02-28] MEDS: PANTOPRAZOLE SODIUM 40 MG VIAL IVPUSH SCH (09:27)
[2019-02-28] MEDS: SENNOSIDES 8.6MG TABLET (FP) PO SCH ×2 (09:27→21:51)
[2019-02-28] MEDS: ASCORBIC ACID 500 MG TABLET (FP) PO SCH (09:27)
[2019-02-28] MEDS: FERROUS SO4 325 MG TABLET (FP) PO SCH (09:27)
[2019-02-28] MEDS: METHIMAZOLE 5 MG TABLET (FP) PO SCH (09:28)
[2019-02-28] MEDS: metoPROLOL SUCCINATE 25 MG TAB.SR.24H (FP) PO SCH ×2 (09:28→21:50)
--- NOTE | 2019-02-28 11:22 | PN ---
Progress Note, Physician History of Present Illness: POS#8 S/P Left hemicolectomy with splenic flexure takedown, ambulating and having BM, tolerating meals, remains in afib with RVR. - Current Medication List Current Medications: Active Medications Acetaminophen (Tylenol -) 650 mg PO Q6H PRN PRN Reason: Fever Or Pain Last Admin: 02/27/19 06:35 Dose: 650 mg Ascorbic Acid (Vitamin C -) 500 mg PO DAILY [facility] Last Admin: 02/28/19 09:27 Dose: 500 mg Benzocaine/Menthol (Cepacol Lozenge -) 1 each MM PRN PRN PRN Reason: SORE THROAT Docusate Sodium (Colace -) 100 mg PO TID [facility] Last Admin: 02/28/19 06:16 Dose: Not Given Ferrous Sulfate (Feosol -) 325 mg PO DAILY [facility] Last Admin: 02/28/19 09:27 Dose: 325 mg Piperacillin Sod/Tazobactam (Sod 3.375 gm/ Dextrose) 50 mls @ 100 mls/hr IVPB Q8H-IV [facility]; Protocol Last Admin: 02/28/19 09:27 Dose: 100 mls/hr Insulin Aspart (Novolog Vial Sliding Scale -) 1 vial SQ ACHS [facility]; Protocol Last Admin: 02/28/19 06:16 Dose: Not Given Methimazole (Tapazole -) 5 mg PO DAILY [facility] Last Admin: 02/28/19 09:28 Dose: 5 mg Metoprolol Succinate (Toprol Xl -) 25 mg PO BID [facility] Last Admin: 02/28/19 09:28 Dose: 25 mg Metoprolol Tartrate (Lopressor Injection -) 5 mg IVPUSH Q4H PRN PRN Reason: HYPERTENSION Last Admin: 02/27/19 13:18 Dose: 5 mg Morphine Sulfate (Morphine Sulfate) 2 mg IVPUSH Q6H PRN PRN Reason: breakthrough pain Last Admin: 02/28/19 02:15 Dose: 2 mg Ondansetron HCl (Zofran Injection) 4 mg IVPUSH Q6H PRN PRN Reason: NAUSEA Last Admin: 02/27/19 21:54 Dose: 4 mg Oxycodone HCl (Roxicodone -) 5 mg PO Q4H PRN PRN Reason: PAIN LEVEL 1-5 Oxycodone HCl (Roxicodone -) 10 mg PO Q4H PRN PRN Reason: PAIN LEVEL 6-10 Last Admin: 02/28/19 11:15 Dose: 10 mg Pantoprazole Sodium (Protonix Iv) 40 mg IVPUSH DAILY [facility] Last Admin: 02/28/19 09:27 Dose: 40 mg Senna (Senna -) 1 tab PO BID [facility] Last Admin: 02/28/19 09:27 Dose: 1 tab - Objective Vital Signs: Vital Signs Temperature 98.6 F 02/28/19 05:00 Pulse Rate 119 H 02/28/19 05:00 Respiratory Rate 18 02/28/19 05:00 Blood Pressure 130/62 02/28/19 05:00 O2 Sat by Pulse Oximetry (%) 98 02/28/19 09:00 Constitutional: Yes: No Distress, Calm Neck: Yes: Supple Cardiovascular: Yes: Tachycardia, Pulse Irregular Respiratory: Yes: Regular, Diminished Gastrointestinal: Yes: Normal Bowel Sounds, Soft, Abdomen, Obese Edema: No Labs: CBC, BMP 02/28/19 06:30 02/28/19 06:30 INR, PTT INR 1.09 (0.83-1.09) 02/20/19 06:00 - ....Imaging EKG: Report Reviewed (Tele: Rapid afib) Problem List - Problems (1) Microcytic anemia Code(s): D50.9 - IRON DEFICIENCY ANEMIA, UNSPECIFIED (2) Atrial fibrillation Code(s): I48.91 - UNSPECIFIED ATRIAL FIBRILLATION Qualifiers: Atrial fibrillation type: persistent Qualified Code(s): I48.1 - Persistent atrial fibrillation (3) CAD (coronary artery disease) Code(s): I25.10 - ATHSCL HEART DISEASE OF [place] CORONARY ARTERY W/O ANG PCTRS Qualifiers: Coronary Disease-Associated Artery/Lesion type: [place] artery [place] vs. transplanted heart: [place] heart Associated angina: without angina Qualified Code(s): I25.10 - Atherosclerotic heart disease of [place] coronary artery without angina pectoris (4) CVA (cerebral vascular accident) Code(s): I63.9 - CEREBRAL INFARCTION, UNSPECIFIED Qualifiers: CVA mechanism: unspecified Qualified Code(s): I63.9 - Cerebral infarction, unspecified (5) HTN (hypertension) Code(s): I10 - ESSENTIAL (PRIMARY) HYPERTENSION Qualifiers: Hypertension type: essential hypertension Qualified Code(s): I10 - Essential (primary) hypertension (6) Hyperthyroidism Code(s): E05.90 - THYROTOXICOSIS, UNSP WITHOUT THYROTOXIC CRISIS OR STORM (7) Parkinson disease Code(s): G20 - PARKINSON'S DISEASE (8) Colonic mass Code(s): K63.9 - DISEASE OF INTESTINE, UNSPECIFIED (9) S/P left hemicolectomy Code(s): Z90.49 - ACQUIRED ABSENCE OF OTHER SPECIFIED PARTS OF DIGESTIVE TRACT (10) Helicobacter pylori gastritis Code(s): K29.70 - GASTRITIS, UNSPECIFIED, WITHOUT BLEEDING; B96.81 - HELICOBACTER PYLORI THE CAUSE OF DISEASES CLASSD ELSWHR (11) Malignant neoplasm of left colon Code(s): C18.6 - MALIGNANT NEOPLASM OF DESCENDING COLON Assessment/Plan 02/04/2018 Echo: Normal LV systolic function, mild LVH, mildly dilated ascending thoacic aprta, tr MR, tr TR and trace pericardial effusion DON: Normal LV size and fxnmild MR, TR, mod AR, tr-mild TN 1. POD#8 Left hemicolectomy for invasive adenocarcinoma 2. Coronary artery disease angina pectoris 3. Diastolic left ventricular dysfunction with chronic class I [place] [employer] classification left ventricular failure compensated euvolemic 4. Persistent atrial fibrillation [id number] of 6 - currently in AF with RVR 5. HTN/HCVD 6. Diabetes mellitus 7. Parkinson's disease 8. Hyperthyroidism 9. History of reactive airway disease/bronchial asthma 10. H. pylori gastritis PLAN: 1. Oncology follow up 2. Continue Toprol XL 25 mg BID, and resume Losartan 25 qd as hemodynamics tolerate. Resume Eliquis 5 bid 3. May use IV Lopressor or even Cardizem IV for added rate control 4. Monitor CBC post transfusion to maintain Hgb > 8.0 5. Encourage ambulation
[2019-02-28] MEDS ORDERED: METOPROLOL TARTRATE 5 MG/5 ML VIAL IVPUSH PRN (11:29)
[2019-02-28] MEDS: LOSARTAN POTASSIUM 25 MG TABLET PO SCH (11:40)
[2019-02-28] MEDS: APIXABAN 5 MG TABLET PO SCH ×2 (12:06→21:50)
--- NOTE | 2019-02-28 13:52 | PN ---
Progress Note, Physician - Current Medication List Current Medications: Active Medications Acetaminophen (Tylenol -) 650 mg PO Q6H PRN PRN Reason: Fever Or Pain Last Admin: 02/27/19 06:35 Dose: 650 mg Apixaban (Eliquis -) 5 mg PO BID [facility] Last Admin: 02/28/19 12:06 Dose: 5 mg Ascorbic Acid (Vitamin C -) 500 mg PO DAILY [facility] Last Admin: 02/28/19 09:27 Dose: 500 mg Benzocaine/Menthol (Cepacol Lozenge -) 1 each MM PRN PRN PRN Reason: SORE THROAT Docusate Sodium (Colace -) 100 mg PO TID [facility] Last Admin: 02/28/19 13:37 Dose: 100 mg Ferrous Sulfate (Feosol -) 325 mg PO DAILY [facility] Last Admin: 02/28/19 09:27 Dose: 325 mg Piperacillin Sod/Tazobactam (Sod 3.375 gm/ Dextrose) 50 mls @ 100 mls/hr IVPB Q8H-IV [facility]; Protocol Last Admin: 02/28/19 09:27 Dose: 100 mls/hr Insulin Aspart (Novolog Vial Sliding Scale -) 1 vial SQ ACHS [facility]; Protocol Last Admin: 02/28/19 11:26 Dose: Not Given Losartan Potassium (Cozaar -) 25 mg PO DAILY [facility] Last Admin: 02/28/19 11:40 Dose: 25 mg Methimazole (Tapazole -) 5 mg PO DAILY [facility] Last Admin: 02/28/19 09:28 Dose: 5 mg Metoprolol Succinate (Toprol Xl -) 25 mg PO BID [facility] Last Admin: 02/28/19 09:28 Dose: 25 mg Metoprolol Tartrate (Lopressor Injection -) 5 mg IVPUSH Q4H PRN PRN Reason: TACHYCARDIA Morphine Sulfate (Morphine Sulfate) 2 mg IVPUSH Q6H PRN PRN Reason: breakthrough pain Last Admin: 02/28/19 02:15 Dose: 2 mg Ondansetron HCl (Zofran Injection) 4 mg IVPUSH Q6H PRN PRN Reason: NAUSEA Last Admin: 02/27/19 21:54 Dose: 4 mg Oxycodone HCl (Roxicodone -) 5 mg PO Q4H PRN PRN Reason: PAIN LEVEL 1-5 Oxycodone HCl (Roxicodone -) 10 mg PO Q4H PRN PRN Reason: PAIN LEVEL 6-10 Last Admin: 02/28/19 11:15 Dose: 10 mg Pantoprazole Sodium (Protonix Iv) 40 mg IVPUSH DAILY [facility] Last Admin: 02/28/19 09:27 Dose: 40 mg Senna (Senna -) 1 tab PO BID [facility] Last Admin: 02/28/19 09:27 Dose: 1 tab - Objective Vital Signs: Vital Signs Temperature 98.6 F 02/28/19 05:00 Pulse Rate 119 H 02/28/19 05:00 Respiratory Rate 18 02/28/19 05:00 Blood Pressure 130/62 02/28/19 05:00 O2 Sat by Pulse Oximetry (%) 98 02/28/19 09:00 Labs: CBC, BMP 02/28/19 06:30 02/28/19 06:30 INR, PTT INR 1.09 (0.83-1.09) 02/20/19 06:00
--- NOTE | 2019-02-28 14:55 | PN ---
Physical Exam: SUBJECTIVE: Patient seen and examined at bedside this morning. No acute events overnight. PAtient still reports abdominal pain, especially at night, relieved by pain medications. Denies fever, chills, headache, dizziness, chest pain, SOB , diarrhea or bloody stools. OBJECTIVE: Vital Signs Temperature 97.9 F 02/28/19 14:05 Pulse Rate 106 H 02/28/19 14:05 Respiratory Rate 20 02/28/19 14:05 Blood Pressure 108/73 02/28/19 14:05 O2 Sat by Pulse Oximetry (%) 98 02/28/19 09:00 GENERAL: The patient is awake, alert, and fully oriented, in no acute distress. HEAD: Normal with no signs of trauma. EYES: PERRLA, EOMI, sclera anicteric, conjunctiva clear. NECK: Trachea midline, full range of motion, supple. LUNGS: Decreased breath sounds on bilateral bases. HEART: Tachycardic, no murmurs ABDOMEN: +diffuse tenderness, +distention, +foul smelling wound, minimal drainage noted on dressing. EXTREMITIES: 2+ pulses, warm, well-perfused, no edema. NEUROLOGICAL: Cranial nerves II through XII grossly intact. Normal speech, gait not observed. PSYCH: Normal mood, normal affect. Laboratory Results - last 24 hr 02/27/19 02/27/19 02/28/19 16:43 21:49 05:47 WBC RBC Hgb Hct MCV MCH MCHC RDW Plt Count MPV Absolute Neuts (auto) Neutrophils % Lymphocytes % Monocytes % Eosinophils % Basophils % Nucleated RBC % Sodium Potassium Chloride Carbon Dioxide Anion Gap BUN Creatinine Creat Clearance w eGFR POC Glucometer 107 120 121 Random Glucose Calcium Phosphorus Magnesium 02/28/19 02/28/19 02/28/19 06:30 06:30 11:13 WBC 6.5 RBC 4.04 Hgb 9.8 L Hct 31.2 L MCV 77.1 L MCH 24.4 L MCHC 31.6 L RDW 28.8 H Plt Count 377 MPV 7.4 L Absolute Neuts (auto) 5.2 Neutrophils % 79.9 Lymphocytes % 8.3 D Monocytes % 8.9 Eosinophils % 2.5 Basophils % 0.4 Nucleated RBC % 0 Sodium 146 H Potassium 3.6 Chloride 107 Carbon Dioxide 32 Anion Gap 7 L BUN 11 Creatinine 0.6 Creat Clearance w eGFR 95.71 POC Glucometer 145 Random Glucose 134 H Calcium 7.5 L Phosphorus 3.2 Magnesium 1.8 Active Medications Generic Name Dose Route Start Last Admin Trade Name Freq PRN Reason Stop Dose Admin Acetaminophen 650 mg 02/25/19 14:11 02/27/19 06:35 Tylenol - PO 650 mg Q6H PRN Administration Fever Or Pain Apixaban 5 mg 02/28/19 11:45 02/28/19 12:06 Eliquis - PO 5 mg BID [facility] Administration Ascorbic Acid 500 mg 02/26/19 10:00 02/28/19 09:27 Vitamin C - PO 500 mg DAILY [facility] Administration Benzocaine/Menthol 1 each 02/25/19 14:11 Cepacol Lozenge - MM PRN PRN SORE THROAT Docusate Sodium 100 mg 02/27/19 14:00 02/28/19 13:37 Colace - PO 100 mg TID [facility] Administration Ferrous Sulfate 325 mg 02/26/19 10:00 02/28/19 09:27 Feosol - PO 325 mg DAILY [facility] Administration Piperacillin Sod/Tazobactam 50 mls @ 100 mls/hr 02/26/19 18:00 02/28/19 09:27 Sod 3.375 gm/ Dextrose IVPB 100 mls/hr Q8H-IV [facility] Administration Protocol Insulin Aspart 1 vial 02/25/19 16:30 02/28/19 11:26 Novolog Vial Sliding Scale - SQ Not Given ACHS [facility] Protocol Losartan Potassium 25 mg 02/28/19 11:30 02/28/19 11:40 Cozaar - PO 25 mg DAILY [facility] Administration Methimazole 5 mg 02/26/19 10:00 02/28/19 09:28 Tapazole - PO 5 mg DAILY [facility] Administration Metoprolol Succinate 25 mg 02/27/19 10:00 02/28/19 09:28 Toprol Xl - PO 25 mg BID [facility] Administration Metoprolol Tartrate 5 mg 02/28/19 11:29 Lopressor Injection - IVPUSH Q4H PRN TACHYCARDIA Morphine Sulfate 2 mg 02/27/19 08:38 02/28/19 02:15 Morphine Sulfate IVPUSH 2 mg Q6H PRN Administration breakthrough pain Ondansetron HCl 4 mg 02/25/19 14:11 02/27/19 21:54 Zofran Injection IVPUSH 4 mg Q6H PRN Administration NAUSEA Oxycodone HCl 5 mg 02/27/19 08:05 Roxicodone - PO Q4H PRN PAIN LEVEL 1-5 Oxycodone HCl 10 mg 02/27/19 08:05 02/28/19 11:15 Roxicodone - PO 10 mg Q4H PRN Administration PAIN LEVEL 6-10 Pantoprazole Sodium 40 mg 02/26/19 10:00 02/28/19 09:27 Protonix Iv IVPUSH 40 mg DAILY [facility] Administration Senna 1 tab 02/27/19 22:00 02/28/19 09:27 Senna - PO 1 tab BID [facility] Administration ASSESSMENT/PLAN: Patient is an 83 year old female with past medical history of A.fib, DM, HTN, Hyperthyroidism, presented to the ED with worsening abdominal pain and anemia and was subsequently found to have a colonic mass. #Colon Cancer: Invasive adenocarcinoma T3N0 -POD 8 left colectomy with splenic flexure takedown and primary anastomosis -Wound noted to have foul smelling, yellowish drainage. -Surgery (Dr. Alvarado) consulted. Recommendations appreciated. -Dressing changed today. -Wound culture - gram coag negative, pending organism -Advance to full liquid diet -Monitor WBC -Tylenol 650mg PO for fever > 100.3F -Morphine PRN for pain -Physical therapy and Incentive spirometry -ID (DR. Richmond) consulted. Recommendations appreciated. -Zosyn 3.375gm q8h day 3 -Heme/Onc consulted. #Microcytic anemia -likely 2/2 Iron deficiency anemia -will continue to monitor -Transfuse if Hgb<8 since cardiac patient #Rectal bleed -will continue to monitor H/H while off eliquis -would need colonoscopy upon recovery for further evaluation #Atrial fibrillation -rate noted to at 120s -Cardiology (Dr. Samuel) consulted. REcs appreciated. -Change Toprol XL 25mg to BID and resume Losartan 25mg daily. -Resume Eliquis 5mg BID -IV Lopressor 5mg PRN #DM -Hold home meds -Insulin sliding scale implemented -BGM ACHS #HTN:controlled -Continue Toprol 25mg BID #Hyperthyroidism -Continue home Methimazole 5mg daily -Repeat TFTs as outpatient #Hx of heart failure -stable -Holding lasix and IV fluids #FEN -Not on any standing fluids -Encourage increased oral fluid intake -Electrolytes wnl, routine bmp monitoring -Clear liquid diet #Prophylaxis -SCDs -holding eliquis in light of bleeding #Disposition -full code Visit type - Emergency Visit Emergency Visit: Yes ED Registration Date: 02/15/19 Care time: The patient presented to the Emergency Department on the above date and was hospitalized for further evaluation of their emergent condition. - New Patient This patient is new to me today: Yes Date on this admission: 02/28/19 - Critical Care Critical Care patient: No
--- NOTE | 2019-02-28 17:54 | PN ---
Progress Note (short form) - Note Progress Note: Maliha seen Beginning to tolerate diet Not very motivated and needs encouragement to get OOB Daughter in attendance. Although this was not a Dalton related cancer - patients history is interesting Father with cancer - ? typeGeneration 1 --Generation 2 Patient with endometrial cancer treated at age 55 colon ca currently 3 brothers with prostate ca ; one sister with colon ca which has re-occurred; Generation 2 Son of colon ca - generation 3 Son with colonic polyps.
[2019-03-01] MEDS ORDERED: ACETAMINOPHEN 1000 MG/100 ML VIAL (NON FORMULARY) IVPB ONE (00:37)
[2019-03-01] MEDS ORDERED: DEXTROSE 5%-WATER - 50 ML IVPB ONE ×3 (01:57→17:43)
[2019-03-01] MEDS ORDERED: PIPERACILLIN/TAZOBACTAM 3.375 GM VIAL IVPB ONE ×3 (01:57→17:43)
[2019-03-01] MEDS: PIPERACILLIN/TAZOB 3.375 GM 3.375 GM in DEXTROSE 5%-WATER - 50 ML IVPB SCH ×3 (02:56→18:03)
[2019-03-01] MEDS: MORPHINE SULFATE 2 MG/ML VIAL IVPUSH PRN ×3 (04:04→23:55)
[2019-03-01] MEDS: DOCUSATE SODIUM 100 MG CAPSULE (FP) PO SCH ×3 (06:34→22:21)
[2019-03-01] MEDS: INSULIN SLIDING SCALE (NOVOLOG) 1 VIAL SQ SCH ×3 (06:34→22:00)
[2019-03-01 06:57] LABS: BASO % 0.4 % (0-2.0); EOS % 2.2 % (0-4.5); HEMOGLOBIN 9.3 GM/dL (10.7-15.3); LYMPH % 9.9 % (8-40); MCH 24.6 pg (25.7-33.7); MEAN CELL VOLUME 76.8 fl (80-96); MEAN PLT VOLUME 7.8 fl (7.5-11.1); MONO % 9.4 % (3.8-10.2); NEUT % 78.1 % (42.8-82.8); PLATELET COUNT 389 K/MM3 (134-434); RBC 3.77 M/mm3 (3.60-5.2); RDW 29.2 % (11.6-15.6); WHITE BLOOD COUNT 6.4 K/mm3 (4.0-10.0)
[2019-03-01 07:31] LABS: ANION GAP 5 MMOL/L (8-16); BLOOD UREA NITROGEN 10 mg/dL (7-18); CALCIUM 8.2 mg/dL (8.5-10.1); CHLORIDE 105 mmol/L (98-107); CO2 33 mmol/L (21-32); CREATININE 0.5 mg/dL (0.55-1.3); GLUCOSE,RANDOM 105 mg/dL (74-106); PHOSPHOROUS 3.2 mg/dL (2.5-4.9); POTASSIUM 3.9 mmol/L (3.5-5.1); SODIUM 142 mmol/L (136-145)
[2019-03-01] MEDS: oxyCODONE HCL 5 MG TABLET PO PRN (07:57)
[2019-03-01] MEDS: PANTOPRAZOLE SODIUM 40 MG VIAL IVPUSH SCH (09:44)
[2019-03-01] MEDS: metoPROLOL SUCCINATE 25 MG TAB.SR.24H (FP) PO SCH (09:45)
[2019-03-01] MEDS: LOSARTAN POTASSIUM 25 MG TABLET PO SCH (09:46)
[2019-03-01] MEDS: ASCORBIC ACID 500 MG TABLET (FP) PO SCH (09:46)
[2019-03-01] MEDS: FERROUS SO4 325 MG TABLET (FP) PO SCH (09:46)
[2019-03-01] MEDS: APIXABAN 5 MG TABLET PO SCH ×2 (09:46→22:21)
[2019-03-01] MEDS: SENNOSIDES 8.6MG TABLET (FP) PO SCH ×2 (09:47→22:22)
[2019-03-01] MEDS: METHIMAZOLE 5 MG TABLET (FP) PO SCH (09:48)
--- NOTE | 2019-03-01 09:58 | PN ---
Progress Note, Physician History of Present Illness: POS#9 S/P Left hemicolectomy with splenic flexure takedown, ambulating and having BM, tolerating meals, remains in afib with RVR. - Current Medication List Current Medications: Active Medications Acetaminophen (Tylenol -) 650 mg PO Q6H PRN PRN Reason: Fever Or Pain Last Admin: 02/27/19 06:35 Dose: 650 mg Apixaban (Eliquis -) 5 mg PO BID [facility] Last Admin: 03/01/19 09:46 Dose: 5 mg Ascorbic Acid (Vitamin C -) 500 mg PO DAILY [facility] Last Admin: 03/01/19 09:46 Dose: 500 mg Benzocaine/Menthol (Cepacol Lozenge -) 1 each MM PRN PRN PRN Reason: SORE THROAT Docusate Sodium (Colace -) 100 mg PO TID [facility] Last Admin: 03/01/19 06:34 Dose: Not Given Ferrous Sulfate (Feosol -) 325 mg PO DAILY [facility] Last Admin: 03/01/19 09:46 Dose: 325 mg Piperacillin Sod/Tazobactam (Sod 3.375 gm/ Dextrose) 50 mls @ 100 mls/hr IVPB Q8H-IV [facility]; Protocol Last Admin: 03/01/19 09:44 Dose: 100 mls/hr Insulin Aspart (Novolog Vial Sliding Scale -) 1 vial SQ ACHS [facility]; Protocol Last Admin: 03/01/19 06:34 Dose: Not Given Losartan Potassium (Cozaar -) 25 mg PO DAILY [facility] Last Admin: 03/01/19 09:46 Dose: 25 mg Methimazole (Tapazole -) 5 mg PO DAILY [facility] Last Admin: 03/01/19 09:48 Dose: 5 mg Metoprolol Succinate (Toprol Xl -) 25 mg PO BID [facility] Last Admin: 03/01/19 09:45 Dose: 25 mg Metoprolol Tartrate (Lopressor Injection -) 5 mg IVPUSH Q4H PRN PRN Reason: TACHYCARDIA Last Admin: 03/01/19 01:49 Dose: 5 mg Morphine Sulfate (Morphine Sulfate) 2 mg IVPUSH Q6H PRN PRN Reason: breakthrough pain Last Admin: 03/01/19 04:04 Dose: 2 mg Ondansetron HCl (Zofran Injection) 4 mg IVPUSH Q6H PRN PRN Reason: NAUSEA Last Admin: 02/27/19 21:54 Dose: 4 mg Oxycodone HCl (Roxicodone -) 5 mg PO Q4H PRN PRN Reason: PAIN LEVEL 1-5 Oxycodone HCl (Roxicodone -) 10 mg PO Q4H PRN PRN Reason: PAIN LEVEL 6-10 Last Admin: 03/01/19 07:57 Dose: 10 mg Pantoprazole Sodium (Protonix Iv) 40 mg IVPUSH DAILY [facility] Last Admin: 03/01/19 09:44 Dose: 40 mg Senna (Senna -) 1 tab PO BID [facility] Last Admin: 03/01/19 09:47 Dose: 1 tab - Objective Vital Signs: Vital Signs Temperature 98 F 03/01/19 08:32 Pulse Rate 103 H 03/01/19 08:32 Respiratory Rate 18 03/01/19 08:35 Blood Pressure 101/67 03/01/19 08:32 O2 Sat by Pulse Oximetry (%) 98 03/01/19 08:35 Constitutional: Yes: No Distress, Calm Neck: Yes: Supple Cardiovascular: Yes: Tachycardia, Pulse Irregular Respiratory: Yes: Regular, Diminished Gastrointestinal: Yes: Soft, Hypoactive Bowel Sounds Edema: No Labs: CBC, BMP 03/01/19 05:30 03/01/19 05:30 INR, PTT INR 1.09 (0.83-1.09) 02/20/19 06:00 - ....Imaging EKG: Report Reviewed (Tele: Rapid afib) Problem List - Problems (1) Microcytic anemia Code(s): D50.9 - IRON DEFICIENCY ANEMIA, UNSPECIFIED (2) Atrial fibrillation Code(s): I48.91 - UNSPECIFIED ATRIAL FIBRILLATION Qualifiers: Atrial fibrillation type: persistent Qualified Code(s): I48.1 - Persistent atrial fibrillation (3) CAD (coronary artery disease) Code(s): I25.10 - ATHSCL HEART DISEASE OF [place] CORONARY ARTERY W/O ANG PCTRS Qualifiers: Coronary Disease-Associated Artery/Lesion type: [place] artery [place] vs. transplanted heart: [place] heart Associated angina: without angina Qualified Code(s): I25.10 - Atherosclerotic heart disease of [place] coronary artery without angina pectoris (4) CVA (cerebral vascular accident) Code(s): I63.9 - CEREBRAL INFARCTION, UNSPECIFIED Qualifiers: CVA mechanism: unspecified Qualified Code(s): I63.9 - Cerebral infarction, unspecified (5) HTN (hypertension) Code(s): I10 - ESSENTIAL (PRIMARY) HYPERTENSION Qualifiers: Hypertension type: essential hypertension Qualified Code(s): I10 - Essential (primary) hypertension (6) Hyperthyroidism Code(s): E05.90 - THYROTOXICOSIS, UNSP WITHOUT THYROTOXIC CRISIS OR STORM (7) Parkinson disease Code(s): G20 - PARKINSON'S DISEASE (8) Colonic mass Code(s): K63.9 - DISEASE OF INTESTINE, UNSPECIFIED (9) S/P left hemicolectomy Code(s): Z90.49 - ACQUIRED ABSENCE OF OTHER SPECIFIED PARTS OF DIGESTIVE TRACT (10) Helicobacter pylori gastritis Code(s): K29.70 - GASTRITIS, UNSPECIFIED, WITHOUT BLEEDING; B96.81 - HELICOBACTER PYLORI THE CAUSE OF DISEASES CLASSD ELSWHR (11) Malignant neoplasm of left colon Code(s): C18.6 - MALIGNANT NEOPLASM OF DESCENDING COLON Assessment/Plan 02/04/2018 Echo: Normal LV systolic function, mild LVH, mildly dilated ascending thoacic aorta, tr MR, tr TR and trace pericardial effusion DON: Normal LV size and fxn, mild MR, TR, mod AR, tr-mild CA 1. POD#9 Left hemicolectomy for invasive adenocarcinoma 2. Coronary artery disease angina pectoris 3. Diastolic left ventricular dysfunction with chronic class I [place] [employer] classification left ventricular failure compensated euvolemic 4. Persistent atrial fibrillation [id number] of 6 - currently in AF with RVR 5. HTN/HCVD 6. Diabetes mellitus 7. Parkinson's disease 8. Hyperthyroidism 9. History of reactive airway disease/bronchial asthma 10. H. pylori gastritis PLAN: 1. Oncology follow up 2. Increase Lopressor 50 mg BID, and continue Losartan 25 qd and Eliquis 5 bid 3. May use IV Lopressor or even Cardizem IV for added rate control 4. Monitor CBC post transfusion to maintain Hgb > 8.0 5. Encourage ambulation, complete empiric abx course
[2019-03-01] MEDS ORDERED: METOPROLOL TARTRATE 25 MG TABLET (FP) PO ONE (10:45)
[2019-03-01] MEDS: ACETAMINOPHEN 1000 MG/100 ML VIAL (NON FORMULARY) IVPB PRN ×2 (11:39→20:45)
--- NOTE | 2019-03-01 17:38 | PN ---
Progress Note, Physician History of Present Illness: stable wound dressing done staff mention that wound is clean - Current Medication List Current Medications: Active Medications Acetaminophen (Ofirmev Injection -) 1,000 mg IVPB Q6H PRN PRN Reason: PAIN LEVEL 7 - 10 Last Admin: 03/01/19 11:39 Dose: 1,000 mg Apixaban (Eliquis -) 5 mg PO BID [facility] Last Admin: 03/01/19 09:46 Dose: 5 mg Ascorbic Acid (Vitamin C -) 500 mg PO DAILY [facility] Last Admin: 03/01/19 09:46 Dose: 500 mg Benzocaine/Menthol (Cepacol Lozenge -) 1 each MM PRN PRN PRN Reason: SORE THROAT Docusate Sodium (Colace -) 100 mg PO TID [facility] Last Admin: 03/01/19 14:05 Dose: 100 mg Ferrous Sulfate (Feosol -) 325 mg PO DAILY [facility] Last Admin: 03/01/19 09:46 Dose: 325 mg Piperacillin Sod/Tazobactam (Sod 3.375 gm/ Dextrose) 50 mls @ 100 mls/hr IVPB Q8H-IV [facility]; Protocol Last Admin: 03/01/19 09:44 Dose: 100 mls/hr Insulin Aspart (Novolog Vial Sliding Scale -) 1 vial SQ ACHS [facility]; Protocol Last Admin: 03/01/19 11:28 Dose: Not Given Losartan Potassium (Cozaar -) 25 mg PO DAILY [facility] Last Admin: 03/01/19 09:46 Dose: 25 mg Methimazole (Tapazole -) 5 mg PO DAILY [facility] Last Admin: 03/01/19 09:48 Dose: 5 mg Metoprolol Tartrate (Lopressor Injection -) 5 mg IVPUSH Q4H PRN PRN Reason: TACHYCARDIA Last Admin: 03/01/19 01:49 Dose: 5 mg Metoprolol Tartrate (Lopressor -) 50 mg PO BID [facility] Morphine Sulfate (Morphine Sulfate) 2 mg IVPUSH Q6H PRN PRN Reason: breakthrough pain Last Admin: 03/01/19 15:27 Dose: 2 mg Ondansetron HCl (Zofran Injection) 4 mg IVPUSH Q6H PRN PRN Reason: NAUSEA Last Admin: 02/27/19 21:54 Dose: 4 mg Pantoprazole Sodium (Protonix Iv) 40 mg IVPUSH DAILY [facility] Last Admin: 03/01/19 09:44 Dose: 40 mg Senna (Senna -) 1 tab PO BID [facility] Last Admin: 03/01/19 09:47 Dose: 1 tab - Objective Vital Signs: Vital Signs Temperature 98.1 F 03/01/19 14:00 Pulse Rate 98 H 03/01/19 14:00 Respiratory Rate 20 03/01/19 14:00 Blood Pressure 95/55 L 03/01/19 14:00 O2 Sat by Pulse Oximetry (%) 98 03/01/19 08:35 Constitutional: Yes: No Distress, Calm, Obese Cardiovascular: Yes: Regular Rate and Rhythm Respiratory: Yes: Regular, CTA Bilaterally Gastrointestinal: Yes: Normal Bowel Sounds, Soft Musculoskeletal: Yes: WNL Extremities: Yes: Other Wound/Incision: Yes: Dressing Dry and Intact Neurological: Yes: Alert, Oriented Psychiatric: Yes: Alert, Oriented Labs: CBC, BMP 03/01/19 05:30 03/01/19 05:30 INR, PTT INR 1.09 (0.83-1.09) 02/20/19 06:00 Assessment/Plan 83 y/o lady with h/o A fib, s/p cardioversion, on AC, DM, CHF, hypertension, hyperthyroidism, heart failure, and family hx of Dalton syndrome who presented with anemia and was found to have colon cancer adeno ca of colon rectal bleed anemia afib hyperthyroidism plan continue current abx wound care rest as per the team awaiting for the final organism
--- NOTE | 2019-03-01 17:47 | PN ---
Teaching Attending Note Name of Resident: Alva Vazquez ATTENDING PHYSICIAN STATEMENT I saw and evaluated the patient. I reviewed the resident's note and discussed the case with the resident. I agree with the resident's findings and plan as documented. SUBJECTIVE: Patient is comfortable , daughter in law at bed side. OBJECTIVE: Vital Signs Temperature 98.1 F 03/01/19 14:00 Pulse Rate 98 H 03/01/19 14:00 Respiratory Rate 20 03/01/19 14:00 Blood Pressure 95/55 L 03/01/19 14:00 O2 Sat by Pulse Oximetry (%) 98 03/01/19 08:35 GENERAL: The patient is more awake, in no acute distress. positive for essential tremor. HEAD: Normal with no signs of trauma. EYES: PERRL, extraocular movements intact, sclera anicteric, conjunctiva clear. ENT: Ears normal, oropharynx clear without exudates, moist mucous membranes. NECK: Trachea midline, full range of motion, supple. LUNGS: Breath sounds equal, CTA bilaterally, no wheezes, no crackles, no accessory muscle use. HEART: irregularly-irregular with rate of 119, S1, S2 positive without murmur, rub or gallop. ABDOMEN: Soft, large abdomen, open wound pod#9 , clean wound EXTREMITIES: 2+ pulses, warm, well-perfused, no edema. NEUROLOGICAL: Cranial nerves II through XII grossly intact. Normal speech, gait not observed. PSYCH: Normal mood, normal affect. SKIN: Warm, dry, normal turgor, no rashes or lesions noted CBCD WBC 6.4 K/mm3 (4.0-10.0) 03/01/19 05:30 RBC 3.77 M/mm3 (3.60-5.2) 03/01/19 05:30 Hgb 9.3 GM/dL (10.7-15.3) L 03/01/19 05:30 Hct 29.0 % (32.4-45.2) L 03/01/19 05:30 MCV 76.8 fl (80-96) L 03/01/19 05:30 MCHC 32.0 g/dl (32.0-36.0) 03/01/19 05:30 RDW 29.2 % (11.6-15.6) H 03/01/19 05:30 Plt Count 389 K/MM3 (134-434) 03/01/19 05:30 MPV 7.8 fl (7.5-11.1) 03/01/19 05:30 CMP Sodium 142 mmol/L (136-145) 03/01/19 05:30 Potassium 3.9 mmol/L (3.5-5.1) 03/01/19 05:30 Chloride 105 mmol/L (98-107) 03/01/19 05:30 Carbon Dioxide 33 mmol/L (21-32) H 03/01/19 05:30 Anion Gap 5 MMOL/L (8-16) L 03/01/19 05:30 BUN 10 mg/dL (7-18) 03/01/19 05:30 Creatinine 0.5 mg/dL (0.55-1.3) L 03/01/19 05:30 Creat Clearance w eGFR 118.12 (>60) 03/01/19 05:30 Random Glucose 105 mg/dL (74-106) 03/01/19 05:30 Calcium 8.2 mg/dL (8.5-10.1) L 03/01/19 05:30 Total Bilirubin 0.3 mg/dL (0.2-1) 02/19/19 07:00 AST 17 U/L (15-37) 02/19/19 07:00 ALT 14 U/L (13-61) 02/19/19 07:00 Alkaline Phosphatase 82 U/L (45-117) 02/19/19 07:00 Total Protein 5.8 g/dl (6.4-8.2) L 02/19/19 07:00 Albumin 2.9 g/dl (3.4-5.0) L 02/19/19 07:00 CARDIAC ENZYMES Troponin I 0.02 ng/ml (0.00-0.05) 02/14/19 12:18 Current Medications Generic Name Dose Route Start Last Admin Trade Name Freq PRN Reason Stop Dose Admin Acetaminophen 1,000 mg 03/01/19 11:27 03/01/19 11:39 Ofirmev Injection - IVPB 1,000 mg Q6H PRN Administration PAIN LEVEL 7 - 10 Apixaban 5 mg 02/28/19 11:45 03/01/19 09:46 Eliquis - PO 5 mg BID [facility] Administration Ascorbic Acid 500 mg 02/26/19 10:00 03/01/19 09:46 Vitamin C - PO 500 mg DAILY [facility] Administration Benzocaine/Menthol 1 each 02/25/19 14:11 Cepacol Lozenge - MM PRN PRN SORE THROAT Docusate Sodium 100 mg 02/27/19 14:00 03/01/19 14:05 Colace - PO 100 mg TID [facility] Administration Ferrous Sulfate 325 mg 02/26/19 10:00 03/01/19 09:46 Feosol - PO 325 mg DAILY [facility] Administration Piperacillin Sod/Tazobactam 50 mls @ 100 mls/hr 02/26/19 18:00 03/01/19 09:44 Sod 3.375 gm/ Dextrose IVPB 100 mls/hr Q8H-IV [facility] Administration Protocol Insulin Aspart 1 vial 02/25/19 16:30 03/01/19 11:28 Novolog Vial Sliding Scale - SQ Not Given ACHS [facility] Protocol Losartan Potassium 25 mg 02/28/19 11:30 03/01/19 09:46 Cozaar - PO 25 mg DAILY [facility] Administration Methimazole 5 mg 02/26/19 10:00 03/01/19 09:48 Tapazole - PO 5 mg DAILY [facility] Administration Metoprolol Tartrate 5 mg 02/28/19 11:29 03/01/19 01:49 Lopressor Injection - IVPUSH 5 mg Q4H PRN Administration TACHYCARDIA Metoprolol Tartrate 50 mg 03/01/19 22:00 Lopressor - PO BID [facility] Morphine Sulfate 2 mg 02/27/19 08:38 03/01/19 15:27 Morphine Sulfate IVPUSH 2 mg Q6H PRN Administration breakthrough pain Ondansetron HCl 4 mg 02/25/19 14:11 02/27/19 21:54 Zofran Injection IVPUSH 4 mg Q6H PRN Administration NAUSEA Pantoprazole Sodium 40 mg 02/26/19 10:00 03/01/19 09:44 Protonix Iv IVPUSH 40 mg DAILY [facility] Administration Senna 1 tab 02/27/19 22:00 03/01/19 09:47 Senna - PO 1 tab BID [facility] Administration Home Medications Medication Instructions Recorded Bimatoprost [Lumigan] 1 drop OU DAILY 04/09/17 Apixaban [Eliquis -] 5 mg PO BID #60 tab 04/13/17 Brimonidine Tartrate/Timolol 5 ml OU BID 02/17/18 [Combigan 0.2%-0.5% Eye Drops] Metoprolol Succinate [Toprol Xl] 25 mg PO DAILY 02/17/18 Latanoprost 0.005% Eye Drops 1 drop HS 02/14/19 [Xalatan 0.005% Eye Drops -] Losartan Potassium 50 mg PO BID 02/14/19 Methimazole 5 mg PO TID 02/14/19 Microbiology 02/26/19 19:28 Abdomen Gram Stain - Final 02/26/19 19:28 Abdomen Wound Culture - Preliminary Staphylococcus Epidermidis Staphylococcus Coagulase Neg#2 Pending Organism 02/14/19 13:56 Urine - Urine Clean Catch Urine Culture - Final Pathology report: Partial transverse and left colon colectomy: invasive adenoca. moderately differentiated. tumor measures 8.2x4.6cm , located at the hepatic flexure. Tubular adenomas, tumor invades through muscularis propia into pericolorectal tissue. surgical margins are negative and 20 lymph nodes are negative. ASSESSMENT AND PLAN: 83 y/o lady with h/o A fib, s/p cardioversion, on AC, DM, CHF, hypertension, hyperthyroidism, heart failure, and family hx of Dalton syndrome who presented with anemia and was found to have colon cancer # POD#9 Left hemicolectomy for invasive adenocarcinoma of colon T3N0 as per pathology report above s/p partial colectomy. infected wound with intact fascia , continue zosyn and wound packing. ID and sx on the case. waiting for culture, once we get the culture back , discharge planning. # Afib with RVR [id number] of 6: continue lopressor BID, PRN IV metorpolol , cardio on the case. # Rectal bleed: while on eliquis after sx. stable HB . off eliquis for now due to GI bleed. # Iron def anemia: cont iron supp #Hx of CHF ( unknown type): Off lasix and IVF . euvolemic now # H/o hyperthyroidism; decreased dose of methimazole to 5mg # Mediastinal LAP , to be followed as out pt Code status was revised by patient and her family. full code now
--- NOTE | 2019-03-01 18:11 | PN ---
Physical Exam: SUBJECTIVE: Patient seen and examined at bedside this morning. No acute events overnight. Patient reported only IV tYlenol works for her pain, can not tolerate Oxycodone and makes patient confused. Otherwise, no fever, chills, headache, dizziness, chest pain, SOB, palpitations, diarrhea, bloody stools, urinary symptoms. OBJECTIVE: Vital Signs Temperature 98.1 F 03/01/19 14:00 Pulse Rate 98 H 03/01/19 14:00 Respiratory Rate 20 03/01/19 14:00 Blood Pressure 95/55 L 03/01/19 14:00 O2 Sat by Pulse Oximetry (%) 98 03/01/19 08:35 GENERAL: The patient is awake, alert, and fully oriented, in no acute distress. HEAD: Normal with no signs of trauma. EYES: PERRLA, EOMI, sclera anicteric, conjunctiva clear. NECK: Trachea midline, full range of motion, supple. LUNGS: Decreased breath sounds on bilateral bases. HEART: Tachycardic, no murmurs ABDOMEN: +diffuse tenderness, minimal drainage noted on dressing. EXTREMITIES: 2+ pulses, warm, well-perfused, no edema. NEUROLOGICAL: Cranial nerves II through XII grossly intact. Normal speech, gait not observed. PSYCH: Normal mood, normal affect. Laboratory Results - last 24 hr 02/28/19 03/01/19 03/01/19 21:03 05:30 05:30 WBC 6.4 RBC 3.77 Hgb 9.3 L Hct 29.0 L MCV 76.8 L MCH 24.6 L MCHC 32.0 RDW 29.2 H Plt Count 389 MPV 7.8 Absolute Neuts (auto) 5.0 Neutrophils % 78.1 Lymphocytes % 9.9 Monocytes % 9.4 Eosinophils % 2.2 Basophils % 0.4 Nucleated RBC % 0 Sodium 142 Potassium 3.9 Chloride 105 Carbon Dioxide 33 H Anion Gap 5 L BUN 10 Creatinine 0.5 L Creat Clearance w eGFR 118.12 POC Glucometer 148 Random Glucose 105 Calcium 8.2 L Phosphorus 3.2 Magnesium 2.0 03/01/19 03/01/19 03/01/19 06:05 11:21 16:48 WBC RBC Hgb Hct MCV MCH MCHC RDW Plt Count MPV Absolute Neuts (auto) Neutrophils % Lymphocytes % Monocytes % Eosinophils % Basophils % Nucleated RBC % Sodium Potassium Chloride Carbon Dioxide Anion Gap BUN Creatinine Creat Clearance w eGFR POC Glucometer 119 155 128 Random Glucose Calcium Phosphorus Magnesium Active Medications Generic Name Dose Route Start Last Admin Trade Name Freq PRN Reason Stop Dose Admin Acetaminophen 1,000 mg 03/01/19 11:27 03/01/19 11:39 Ofirmev Injection - IVPB 1,000 mg Q6H PRN Administration PAIN LEVEL 7 - 10 Apixaban 5 mg 02/28/19 11:45 03/01/19 09:46 Eliquis - PO 5 mg BID [facility] Administration Ascorbic Acid 500 mg 02/26/19 10:00 03/01/19 09:46 Vitamin C - PO 500 mg DAILY [facility] Administration Benzocaine/Menthol 1 each 02/25/19 14:11 Cepacol Lozenge - MM PRN PRN SORE THROAT Docusate Sodium 100 mg 02/27/19 14:00 03/01/19 14:05 Colace - PO 100 mg TID [facility] Administration Ferrous Sulfate 325 mg 02/26/19 10:00 03/01/19 09:46 Feosol - PO 325 mg DAILY [facility] Administration Piperacillin Sod/Tazobactam 50 mls @ 100 mls/hr 02/26/19 18:00 03/01/19 18:03 Sod 3.375 gm/ Dextrose IVPB 100 mls/hr Q8H-IV [facility] Administration Protocol Insulin Aspart 1 vial 02/25/19 16:30 03/01/19 11:28 Novolog Vial Sliding Scale - SQ Not Given ACHS [facility] Protocol Losartan Potassium 25 mg 02/28/19 11:30 03/01/19 09:46 Cozaar - PO 25 mg DAILY [facility] Administration Methimazole 5 mg 02/26/19 10:00 03/01/19 09:48 Tapazole - PO 5 mg DAILY [facility] Administration Metoprolol Tartrate 5 mg 02/28/19 11:29 03/01/19 01:49 Lopressor Injection - IVPUSH 5 mg Q4H PRN Administration TACHYCARDIA Metoprolol Tartrate 50 mg 03/01/19 22:00 Lopressor - PO BID [facility] Morphine Sulfate 2 mg 02/27/19 08:38 03/01/19 15:27 Morphine Sulfate IVPUSH 2 mg Q6H PRN Administration breakthrough pain Ondansetron HCl 4 mg 02/25/19 14:11 02/27/19 21:54 Zofran Injection IVPUSH 4 mg Q6H PRN Administration NAUSEA Pantoprazole Sodium 40 mg 02/26/19 10:00 03/01/19 09:44 Protonix Iv IVPUSH 40 mg DAILY [facility] Administration Senna 1 tab 02/27/19 22:00 03/01/19 09:47 Senna - PO 1 tab BID [facility] Administration ASSESSMENT/PLAN: Patient is an 83 year old female with past medical history of A.fib, DM, HTN, Hyperthyroidism, presented to the ED with worsening abdominal pain and anemia and was subsequently found to have a colonic mass. #Colon Cancer: Invasive adenocarcinoma T3N0 -POD 9 left colectomy with splenic flexure takedown and primary anastomosis -Surgery (Dr. Alvarado) consulted. Recommendations appreciated. -Wound culture - Staph epidermidis, staph coag neg, pending organism -Wound dressing done -Diabetic diet -Monitor WBC -Tylenol 650mg PO for fever > 100.3F -Morphine PRN for pain -Physical therapy and Incentive spirometry -ID (DR. Richmond) consulted. Recommendations appreciated. -Zosyn 3.375gm q8h day 4 -Will await final wound culture and sensitivities -Heme/Onc (Dr. Flores) consulted. Recommendations appreciated. #Microcytic anemia -likely 2/2 Iron deficiency anemia -will continue to monitor -Transfuse if Hgb<8 since cardiac patient #Rectal bleed: resolved -will continue to monitor H/H -would need colonoscopy upon recovery for further evaluation #Atrial fibrillation -rate noted to at 120s -Cardiology (Dr. Samuel) consulted. REcs appreciated. -Change Toprol XL 25mg BID to Toprol 50 mg BID. -Resume Eliquis 5mg BID -IV Lopressor 5mg or IV Cardizem PRN for added rate control #DM -Hold home meds -Insulin sliding scale implemented -BGM ACHS #HTN:controlled -Continue Toprol 50mg BID -resume Losartan 25mg daily #Hyperthyroidism -Continue home Methimazole 5mg daily -Repeat TFTs as outpatient #Hx of heart failure -stable -Holding lasix and IV fluids #FEN -Not on any standing fluids -Encourage increased oral fluid intake -Electrolytes wnl, routine bmp monitoring -Diabetic diet #Prophylaxis -SCDs -Eliquis 5mg BID #Disposition -full code -tele Visit type - Emergency Visit Emergency Visit: Yes ED Registration Date: 02/15/19 Care time: The patient presented to the Emergency Department on the above date and was hospitalized for further evaluation of their emergent condition. - New Patient This patient is new to me today: No - Critical Care Critical Care patient: No
[2019-03-01] MEDS: METOPROLOL TARTRATE 50 MG TABLET (FP) PO SCH (22:21)
[2019-03-02] MEDS ORDERED: PIPERACILLIN/TAZOBACTAM 3.375 GM VIAL IVPB ONE ×3 (01:13→16:58)
[2019-03-02] MEDS ORDERED: DEXTROSE 5%-WATER - 50 ML IVPB ONE ×3 (01:14→16:58)
[2019-03-02] MEDS: PIPERACILLIN/TAZOB 3.375 GM 3.375 GM in DEXTROSE 5%-WATER - 50 ML IVPB SCH ×3 (01:32→17:00)
[2019-03-02] MEDS: ACETAMINOPHEN 1000 MG/100 ML VIAL (NON FORMULARY) IVPB PRN ×2 (04:29→10:05)
[2019-03-02] MEDS: DOCUSATE SODIUM 100 MG CAPSULE (FP) PO SCH ×2 (06:19→13:53)
[2019-03-02 07:44] LABS: BASO % 0.2 % (0-2.0); EOS % 1.7 % (0-4.5); HEMOGLOBIN 9.5 GM/dL (10.7-15.3); LYMPH % 8.4 % (8-40); MCH 24.1 pg (25.7-33.7); MCHC 31.5 g/dl (32.0-36.0); MEAN CELL VOLUME 76.5 fl (80-96); MEAN PLT VOLUME 7.7 fl (7.5-11.1); MONO % 8.6 % (3.8-10.2); NEUT % 81.1 % (42.8-82.8); PLATELET COUNT 380 K/MM3 (134-434); RBC 3.93 M/mm3 (3.60-5.2); RDW 28.8 % (11.6-15.6)
[2019-03-02 07:58] LABS: ANION GAP 5 MMOL/L (8-16); BLOOD UREA NITROGEN 11 mg/dL (7-18); CALCIUM 7.9 mg/dL (8.5-10.1); CHLORIDE 104 mmol/L (98-107); CO2 34 mmol/L (21-32); CREATININE 0.5 mg/dL (0.55-1.3); GLUCOSE,RANDOM 99 mg/dL (74-106); MAGNESIUM 1.9 mg/dL (1.8-2.4); PHOSPHOROUS 3.3 mg/dL (2.5-4.9); POTASSIUM 3.5 mmol/L (3.5-5.1); SODIUM 143 mmol/L (136-145)
--- NOTE | 2019-03-02 08:20 | PN ---
Teaching Attending Note Name of Resident: Alva Vazquez ATTENDING PHYSICIAN STATEMENT I saw and evaluated the patient. I reviewed the resident's note and discussed the case with the resident. I agree with the resident's findings and plan as documented. SUBJECTIVE: No fever or chills, comfortable. Patient is comfortable with no acute distress. OBJECTIVE: Vital Signs Temperature 98.2 F 03/02/19 06:17 Pulse Rate 87 03/02/19 06:17 Respiratory Rate 20 03/02/19 06:17 Blood Pressure 96/65 03/02/19 06:17 O2 Sat by Pulse Oximetry (%) 98 03/01/19 22:00 GENERAL: The patient is more awake, in no acute distress. positive for essential tremor. HEAD: Normal with no signs of trauma. EYES: PERRL, extraocular movements intact, sclera anicteric, conjunctiva clear. ENT: Ears normal, oropharynx clear without exudates, moist mucous membranes. NECK: Trachea midline, full range of motion, supple. LUNGS: Breath sounds equal, CTA bilaterally, no wheezes, no crackles, no accessory muscle use. HEART: irregularly-irregular with rate of 119, S1, S2 positive without murmur, rub or gallop. ABDOMEN: Soft, large abdomen, open wound pod#10 , clean wound EXTREMITIES: 2+ pulses, warm, well-perfused, no edema. NEUROLOGICAL: Cranial nerves II through XII grossly intact. Normal speech, gait not observed. PSYCH: Normal mood, normal affect. SKIN: Warm, dry, normal turgor, no rashes or lesions noted CBCD WBC 8.0 K/mm3 (4.0-10.0) 03/02/19 06:43 RBC 3.93 M/mm3 (3.60-5.2) 03/02/19 06:43 Hgb 9.5 GM/dL (10.7-15.3) L 03/02/19 06:43 Hct 30.0 % (32.4-45.2) L 03/02/19 06:43 MCV 76.5 fl (80-96) L 03/02/19 06:43 MCHC 31.5 g/dl (32.0-36.0) L 03/02/19 06:43 RDW 28.8 % (11.6-15.6) H 03/02/19 06:43 Plt Count 380 K/MM3 (134-434) 03/02/19 06:43 MPV 7.7 fl (7.5-11.1) 03/02/19 06:43 CMP Sodium 143 mmol/L (136-145) 03/02/19 06:43 Potassium 3.5 mmol/L (3.5-5.1) 03/02/19 06:43 Chloride 104 mmol/L (98-107) 03/02/19 06:43 Carbon Dioxide 34 mmol/L (21-32) H 03/02/19 06:43 Anion Gap 5 MMOL/L (8-16) L 03/02/19 06:43 BUN 11 mg/dL (7-18) 03/02/19 06:43 Creatinine 0.5 mg/dL (0.55-1.3) L 03/02/19 06:43 Creat Clearance w eGFR 118.12 (>60) 03/02/19 06:43 Random Glucose 99 mg/dL (74-106) 03/02/19 06:43 Calcium 7.9 mg/dL (8.5-10.1) L 03/02/19 06:43 Total Bilirubin 0.3 mg/dL (0.2-1) 02/19/19 07:00 AST 17 U/L (15-37) 02/19/19 07:00 ALT 14 U/L (13-61) 02/19/19 07:00 Alkaline Phosphatase 82 U/L (45-117) 02/19/19 07:00 Total Protein 5.8 g/dl (6.4-8.2) L 02/19/19 07:00 Albumin 2.9 g/dl (3.4-5.0) L 02/19/19 07:00 CARDIAC ENZYMES Troponin I 0.02 ng/ml (0.00-0.05) 02/14/19 12:18 Current Medications Generic Name Dose Route Start Last Admin Trade Name Freq PRN Reason Stop Dose Admin Acetaminophen 1,000 mg 03/01/19 11:27 03/02/19 04:29 Ofirmev Injection - IVPB 1,000 mg Q6H PRN Administration PAIN LEVEL 7 - 10 Apixaban 5 mg 02/28/19 11:45 03/01/19 22:21 Eliquis - PO 5 mg BID SRIKANTH Administration Ascorbic Acid 500 mg 02/26/19 10:00 03/01/19 09:46 Vitamin C - PO 500 mg DAILY SRIKANTH Administration Benzocaine/Menthol 1 each 02/25/19 14:11 Cepacol Lozenge - MM PRN PRN SORE THROAT Docusate Sodium 100 mg 02/27/19 14:00 03/02/19 06:19 Colace - PO Not Given TID SRIKANTH Ferrous Sulfate 325 mg 02/26/19 10:00 03/01/19 09:46 Feosol - PO 325 mg DAILY SRIKANTH Administration Piperacillin Sod/Tazobactam 50 mls @ 100 mls/hr 02/26/19 18:00 03/02/19 01:32 Sod 3.375 gm/ Dextrose IVPB 100 mls/hr Q8H-IV SRKIANTH Administration Protocol Insulin Aspart 1 vial 02/25/19 16:30 03/01/19 22:00 Novolog Vial Sliding Scale - SQ Not Given ACHS [facility] Protocol Losartan Potassium 25 mg 02/28/19 11:30 03/01/19 09:46 Cozaar - PO 25 mg DAILY SRIKANTH Administration Methimazole 5 mg 02/26/19 10:00 03/01/19 09:48 Tapazole - PO 5 mg DAILY SRIKANTH Administration Metoprolol Tartrate 5 mg 02/28/19 11:29 03/01/19 01:49 Lopressor Injection - IVPUSH 5 mg Q4H PRN Administration TACHYCARDIA Metoprolol Tartrate 50 mg 03/01/19 22:00 03/01/19 22:21 Lopressor - PO 50 mg BID SRIKANTH Administration Morphine Sulfate 2 mg 02/27/19 08:38 03/01/19 23:55 Morphine Sulfate IVPUSH 2 mg Q6H PRN Administration breakthrough pain Ondansetron HCl 4 mg 02/25/19 14:11 02/27/19 21:54 Zofran Injection IVPUSH 4 mg Q6H PRN Administration NAUSEA Oxycodone HCl 5 mg 03/01/19 20:31 Roxicodone - PO Q6H PRN PAIN LEVEL 6-10 Pantoprazole Sodium 40 mg 02/26/19 10:00 03/01/19 09:44 Protonix Iv IVPUSH 40 mg DAILY SRIKANTH Administration Senna 1 tab 02/27/19 22:00 03/01/19 22:22 Senna - PO Not Given BID [facility] Microbiology Microbiology 02/26/19 19:28 Abdomen Gram Stain - Final 02/26/19 19:28 Abdomen Wound Culture - Final Staphylococcus Epidermidis Staphylococcus Lugdunensis Alpha Hemolytic Streptococcus 02/14/19 13:56 Urine - Urine Clean Catch Urine Culture - Final Pathology report: Partial transverse and left colon colectomy: invasive adenoca. moderately differentiated. tumor measures 8.2x4.6cm , located at the hepatic flexure. Tubular adenomas, tumor invades through muscularis propia into pericolorectal tissue. surgical margins are negative and 20 lymph nodes are negative. 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 infected wound with intact fascia , continue zosyn and wound packing. ID and sx on the case. waiting for culture, once we get the culture back, discharge planning. #Afib with RVR [id number] of 6: on Eliquis now, continue Lopressor 50mg BID, PRN IV metorpolol , cardio on the case. # Abdominal wound growing staph.epidermis, staph coag. with pending organism on Zosyn , Id is on the case. #hx of GI bleed due to a mass: s/p surgery . # Iron def anemia: cont iron supp #Hx of CHF (unknown type): Off lasix and IVF. euvolemic now. # H/o hyperthyroidism; decreased dose of methimazole to 5mg # Mediastinal LAP, to be followed as out pt Code status was revised by patient and her family. full code now Discharge home on VNS pending organism dc planning.
[2019-03-02] MEDS: ASCORBIC ACID 500 MG TABLET (FP) PO SCH (10:17)
[2019-03-02] MEDS: FERROUS SO4 325 MG TABLET (FP) PO SCH (10:17)
[2019-03-02] MEDS: PANTOPRAZOLE SODIUM 40 MG VIAL IVPUSH SCH (10:17)
[2019-03-02] MEDS: APIXABAN 5 MG TABLET PO SCH (10:17)
[2019-03-02] MEDS: METOPROLOL TARTRATE 50 MG TABLET (FP) PO SCH (10:17)
[2019-03-02] MEDS: LOSARTAN POTASSIUM 25 MG TABLET PO SCH (10:17)
[2019-03-02] MEDS: METHIMAZOLE 5 MG TABLET (FP) PO SCH (10:17)
[2019-03-02] MEDS: SENNOSIDES 8.6MG TABLET (FP) PO SCH (10:18)
--- NOTE | 2019-03-02 10:19 | PN ---
Progress Note, Physician History of Present Illness: POS#10 S/P Left hemicolectomy with splenic flexure takedown, OOB to chair and having BM, tolerating meals, remains in afib with improved rate-control. - Current Medication List Current Medications: Active Medications Acetaminophen (Ofirmev Injection -) 1,000 mg IVPB Q6H PRN PRN Reason: PAIN LEVEL 7 - 10 Last Admin: 03/02/19 04:29 Dose: 1,000 mg Apixaban (Eliquis -) 5 mg PO BID [facility] Last Admin: 03/01/19 22:21 Dose: 5 mg Ascorbic Acid (Vitamin C -) 500 mg PO DAILY [facility] Last Admin: 03/01/19 09:46 Dose: 500 mg Benzocaine/Menthol (Cepacol Lozenge -) 1 each MM PRN PRN PRN Reason: SORE THROAT Docusate Sodium (Colace -) 100 mg PO TID [facility] Last Admin: 03/02/19 06:19 Dose: Not Given Ferrous Sulfate (Feosol -) 325 mg PO DAILY [facility] Last Admin: 03/01/19 09:46 Dose: 325 mg Piperacillin Sod/Tazobactam (Sod 3.375 gm/ Dextrose) 50 mls @ 100 mls/hr IVPB Q8H-IV [facility]; Protocol Last Admin: 03/02/19 01:32 Dose: 100 mls/hr Insulin Aspart (Novolog Vial Sliding Scale -) 1 vial SQ ACHS [facility]; Protocol Last Admin: 03/01/19 22:00 Dose: Not Given Losartan Potassium (Cozaar -) 25 mg PO DAILY [facility] Last Admin: 03/01/19 09:46 Dose: 25 mg Methimazole (Tapazole -) 5 mg PO DAILY [facility] Last Admin: 03/01/19 09:48 Dose: 5 mg Metoprolol Tartrate (Lopressor Injection -) 5 mg IVPUSH Q4H PRN PRN Reason: TACHYCARDIA Last Admin: 03/01/19 01:49 Dose: 5 mg Metoprolol Tartrate (Lopressor -) 50 mg PO BID [facility] Last Admin: 03/01/19 22:21 Dose: 50 mg Morphine Sulfate (Morphine Sulfate) 2 mg IVPUSH Q6H PRN PRN Reason: breakthrough pain Last Admin: 03/01/19 23:55 Dose: 2 mg Ondansetron HCl (Zofran Injection) 4 mg IVPUSH Q6H PRN PRN Reason: NAUSEA Last Admin: 02/27/19 21:54 Dose: 4 mg Oxycodone HCl (Roxicodone -) 5 mg PO Q6H PRN PRN Reason: PAIN LEVEL 6-10 Pantoprazole Sodium (Protonix Iv) 40 mg IVPUSH DAILY [facility] Last Admin: 03/01/19 09:44 Dose: 40 mg Senna (Senna -) 1 tab PO BID [facility] Last Admin: 03/01/19 22:22 Dose: Not Given - Objective Vital Signs: Vital Signs Temperature 98.2 F 03/02/19 06:17 Pulse Rate 87 03/02/19 06:17 Respiratory Rate 20 03/02/19 06:17 Blood Pressure 96/65 03/02/19 06:17 O2 Sat by Pulse Oximetry (%) 98 03/01/19 22:00 Constitutional: Yes: No Distress, Calm Neck: Yes: Supple Cardiovascular: Yes: Pulse Irregular Respiratory: Yes: Regular, Diminished Gastrointestinal: Yes: Soft, Hypoactive Bowel Sounds Edema: No Wound/Incision: Yes: Clean/Dry Labs: CBC, BMP 03/02/19 06:43 03/02/19 06:43 INR, PTT INR 1.09 (0.83-1.09) 02/20/19 06:00 - ....Imaging EKG: Report Reviewed (Tele: Rate-controlled afib) Problem List - Problems (1) Microcytic anemia Code(s): D50.9 - IRON DEFICIENCY ANEMIA, UNSPECIFIED (2) Atrial fibrillation Code(s): I48.91 - UNSPECIFIED ATRIAL FIBRILLATION Qualifiers: Atrial fibrillation type: persistent Qualified Code(s): I48.1 - Persistent atrial fibrillation (3) CAD (coronary artery disease) Code(s): I25.10 - ATHSCL HEART DISEASE OF [place] CORONARY ARTERY W/O ANG PCTRS Qualifiers: Coronary Disease-Associated Artery/Lesion type: [place] artery [place] vs. transplanted heart: [place] heart Associated angina: without angina Qualified Code(s): I25.10 - Atherosclerotic heart disease of [place] coronary artery without angina pectoris (4) CVA (cerebral vascular accident) Code(s): I63.9 - CEREBRAL INFARCTION, UNSPECIFIED Qualifiers: CVA mechanism: unspecified Qualified Code(s): I63.9 - Cerebral infarction, unspecified (5) HTN (hypertension) Code(s): I10 - ESSENTIAL (PRIMARY) HYPERTENSION Qualifiers: Hypertension type: essential hypertension Qualified Code(s): I10 - Essential (primary) hypertension (6) Hyperthyroidism Code(s): E05.90 - THYROTOXICOSIS, UNSP WITHOUT THYROTOXIC CRISIS OR STORM (7) Parkinson disease Code(s): G20 - PARKINSON'S DISEASE (8) Colonic mass Code(s): K63.9 - DISEASE OF INTESTINE, UNSPECIFIED (9) S/P left hemicolectomy Code(s): Z90.49 - ACQUIRED ABSENCE OF OTHER SPECIFIED PARTS OF DIGESTIVE TRACT (10) Helicobacter pylori gastritis Code(s): K29.70 - GASTRITIS, UNSPECIFIED, WITHOUT BLEEDING; B96.81 - HELICOBACTER PYLORI THE CAUSE OF DISEASES CLASSD ELSWHR (11) Malignant neoplasm of left colon Code(s): C18.6 - MALIGNANT NEOPLASM OF DESCENDING COLON Assessment/Plan 02/04/2018 Echo: Normal LV systolic function, mild LVH, mildly dilated ascending thoacic aorta, tr MR, tr TR and trace pericardial effusion DON: Normal LV size and fxn, mild MR, TR, mod AR, tr-mild IN 1. POD#10 Left hemicolectomy for invasive adenocarcinoma 2. Coronary artery disease angina pectoris 3. Diastolic left ventricular dysfunction with chronic class I [place] [employer] classification left ventricular failure compensated euvolemic 4. Persistent atrial fibrillation [id number] of 6 - currently in AF with RVR 5. HTN/HCVD 6. Diabetes mellitus 7. Parkinson's disease 8. Hyperthyroidism 9. History of reactive airway disease/bronchial asthma 10. H. pylori gastritis PLAN: 1. Oncology follow up 2. Continue Lopressor 50 mg BID, Losartan 25 qd and Eliquis 5 bid 3. May use IV Lopressor and Cardizem IV as needed for added rate control 4. Monitor CBC post transfusion to maintain Hgb > 8.0 5. Encourage ambulation, complete empiric abx course, wound care
[2019-03-02 10:32] LABS: ANISOCYTOSIS 2+; MACROCYTOSIS 0; PLATELET ESTIMATE NORMAL; TARGET CELLS 2+
--- NOTE | 2019-03-02 13:25 | PN ---
Progress Note (short form) - Note Progress Note: POD 10, s/p Left colectomy with splenic flexure takedown Pt seen and examined. Granddaughter at bedside. States pt continues to have significant pain with movement, pt is refusing narcotics, family unsure why. Has been having BM's, last one yesterday. Has been oob to chair daily. Voiding without issue. Denies cp/sob, n/v/d, calf pain. Vital Signs Temp 98.2 F 03/02/19 10:00 Pulse 97 H 03/02/19 10:00 Resp 20 03/02/19 10:00 BP 115/67 03/02/19 10:00 Pulse Ox 99 03/02/19 10:00 Intake & Output 03/01/19 03/02/19 03/02/19 23:59 11:59 23:59 Intake Total 490 340 Balance 490 340 Intake: IV 20 none 20 IVPB 150 250 Oral 320 90 Other: Voiding Method Incontinent Incontinent # Unmeasured Voids Void 2 2 Bowel Movement Yes # Bowel Movements 2 1 CBC, BMP 03/02/19 06:43 03/02/19 06:43 Gen: Laying in bed in nad Resp: Unlabored on RA Abdo: soft +TTP throughout, Dressing removed, proximal and distal portions od wound open and granulating, moderate serous drainage from prox and distal portions of incision, + foul odor. no purulent drainage. Wound redressed with wet to dry dressings, 4x4's and abd pads, paper tape. Ext: scds in place and on b/l le's A/P: 83 y/o F w/ PMHx Parkinson's syndrome, cervical cancer s/p hysterectomy/b/ l salpingoophrectomy, afib on eliquis, HTN, Hyperthyroidism, recurrent UTI admitted 02/14 for workup after being sent by GI for worsening anemia and pallor , now s/p EGD 02/16 revealing colon mass, now POD 10, Left colectomy with splenic flexure takedown. Pathology from EGD/colonoscopy with + active chronic gastritis, +HPylori, Invasive adenocarcinoma Wound culture 02/26 + for staph/strep, pt on Zosyn -Continue IV abx per ID -BID dresing changes with wet to dry dressings, 4x4's, abd, and paper tape -ABX per ID -OOB with PT -Pain control
[2019-03-02] MEDS: INSULIN SLIDING SCALE (NOVOLOG) 1 VIAL SQ SCH ×2 (13:44→17:00)
[2019-03-02] MEDS: oxyCODONE HCL 5 MG TABLET PO PRN ×2 (13:49→18:31)
--- NOTE | 2019-03-02 14:57 | PN ---
Progress Note, Physician History of Present Illness: patient c/o of pain at the operated site otherwise doing well - Current Medication List Current Medications: Active Medications Apixaban (Eliquis -) 5 mg PO BID [facility] Last Admin: 03/02/19 10:17 Dose: 5 mg Ascorbic Acid (Vitamin C -) 500 mg PO DAILY [facility] Last Admin: 03/02/19 10:17 Dose: 500 mg Benzocaine/Menthol (Cepacol Lozenge -) 1 each MM PRN PRN PRN Reason: SORE THROAT Docusate Sodium (Colace -) 100 mg PO TID [facility] Last Admin: 03/02/19 13:53 Dose: Not Given Ferrous Sulfate (Feosol -) 325 mg PO DAILY [facility] Last Admin: 03/02/19 10:17 Dose: 325 mg Piperacillin Sod/Tazobactam (Sod 3.375 gm/ Dextrose) 50 mls @ 100 mls/hr IVPB Q8H-IV [facility]; Protocol Last Admin: 03/02/19 10:09 Dose: 100 mls/hr Insulin Aspart (Novolog Vial Sliding Scale -) 1 vial SQ ACHS [facility]; Protocol Last Admin: 03/02/19 13:44 Dose: Not Given Losartan Potassium (Cozaar -) 25 mg PO DAILY [facility] Last Admin: 03/02/19 10:17 Dose: 25 mg Methimazole (Tapazole -) 5 mg PO DAILY [facility] Last Admin: 03/02/19 10:17 Dose: 5 mg Metoprolol Tartrate (Lopressor Injection -) 5 mg IVPUSH Q4H PRN PRN Reason: TACHYCARDIA Last Admin: 03/01/19 01:49 Dose: 5 mg Metoprolol Tartrate (Lopressor -) 50 mg PO BID [facility] Last Admin: 03/02/19 10:17 Dose: 50 mg Morphine Sulfate (Morphine Sulfate) 2 mg IVPUSH Q6H PRN PRN Reason: breakthrough pain Last Admin: 03/01/19 23:55 Dose: 2 mg Ondansetron HCl (Zofran Injection) 4 mg IVPUSH Q6H PRN PRN Reason: NAUSEA Last Admin: 02/27/19 21:54 Dose: 4 mg Oxycodone HCl (Roxicodone -) 5 mg PO Q6H PRN PRN Reason: PAIN LEVEL 6-10 Last Admin: 03/02/19 13:49 Dose: 5 mg Pantoprazole Sodium (Protonix Iv) 40 mg IVPUSH DAILY [facility] Last Admin: 03/02/19 10:17 Dose: 40 mg Senna (Senna -) 1 tab PO BID [facility] Last Admin: 03/02/19 10:18 Dose: Not Given - Objective Vital Signs: Vital Signs Temperature 98.2 F 03/02/19 10:00 Pulse Rate 97 H 03/02/19 10:00 Respiratory Rate 20 03/02/19 10:00 Blood Pressure 115/67 03/02/19 10:00 O2 Sat by Pulse Oximetry (%) 99 03/02/19 10:00 Constitutional: Yes: No Distress, Calm, Obese Cardiovascular: Yes: Regular Rate and Rhythm Respiratory: Yes: Regular, CTA Bilaterally Gastrointestinal: Yes: Normal Bowel Sounds, Soft Musculoskeletal: Yes: WNL Extremities: Yes: WNL Wound/Incision: Yes: Dressing Dry and Intact Neurological: Yes: Alert, Oriented Psychiatric: Yes: Alert, Oriented Labs: CBC, BMP 03/02/19 06:43 03/02/19 06:43 INR, PTT INR 1.09 (0.83-1.09) 02/20/19 06:00 Assessment/Plan 83 y/o lady with h/o A fib, s/p cardioversion, on AC, DM, CHF, hypertension, hyperthyroidism, heart failure, and family hx of Dalton syndrome who presented with anemia and was found to have colon cancer adeno ca of colon rectal bleed anemia afib hyperthyroidism plan wound cx result noted patient can be swithed to oral bactrim bactrim ds 1 tab po bis for 10 days rest continue wound care patient stable
[2019-03-02 15:41] VITALS: BP 101/69; PULSE 101; TEMP 98.5
--- NOTE | 2019-03-02 16:34 | DS ---
Physical Exam: SUBJECTIVE: Patient seen and examined at bedside this morning. OBJECTIVE: Vital Signs Temperature 98.5 F 03/02/19 14:00 Pulse Rate 101 H 03/02/19 14:00 Respiratory Rate 20 03/02/19 14:00 Blood Pressure 101/69 03/02/19 14:00 O2 Sat by Pulse Oximetry (%) 99 03/02/19 10:00 PHYSICAL EXAM GENERAL: The patient is awake, alert, and fully oriented, in no acute distress. HEAD: Normal with no signs of trauma. EYES: PERRLA, EOMI, sclera anicteric, conjunctiva clear. NECK: Trachea midline, full range of motion, supple. LUNGS: Clear breath sounds bilaterally HEART: Irregular irregular, no murmurs ABDOMEN: +tenderness around surgical wound, dressing clean and dry. EXTREMITIES: 2+ pulses, warm, well-perfused, no edema. NEUROLOGICAL: Cranial nerves II through XII grossly intact. Normal speech, gait not observed. PSYCH: Normal mood, normal affect. LABS Laboratory Results - last 24 hr 03/01/19 03/01/19 03/02/19 16:48 20:50 06:33 WBC RBC Hgb Hct MCV MCH MCHC RDW Plt Count MPV Absolute Neuts (auto) Neutrophils % Lymphocytes % Monocytes % Eosinophils % Basophils % Nucleated RBC % Hypochromia Platelet Estimate Polychromasia Poikilocytosis Anisocytosis Microcytosis Macrocytosis Target Cells Schistocytes Sodium Potassium Chloride Carbon Dioxide Anion Gap BUN Creatinine Creat Clearance w eGFR POC Glucometer 128 112 99 Random Glucose Calcium Phosphorus Magnesium 03/02/19 03/02/19 03/02/19 06:43 06:43 11:38 WBC 8.0 RBC 3.93 Hgb 9.5 L Hct 30.0 L MCV 76.5 L MCH 24.1 L MCHC 31.5 L RDW 28.8 H Plt Count 380 MPV 7.7 Absolute Neuts (auto) 6.5 Neutrophils % 81.1 Lymphocytes % 8.4 Monocytes % 8.6 Eosinophils % 1.7 Basophils % 0.2 Nucleated RBC % 0 Hypochromia 2+ Platelet Estimate Normal Polychromasia 0 Poikilocytosis 2+ Anisocytosis 2+ Microcytosis 2+ Macrocytosis 0 Target Cells 2+ Schistocytes 1+ Sodium 143 Potassium 3.5 Chloride 104 Carbon Dioxide 34 H Anion Gap 5 L BUN 11 Creatinine 0.5 L Creat Clearance w eGFR 118.12 POC Glucometer 142 Random Glucose 99 Calcium 7.9 L Phosphorus 3.3 Magnesium 1.9 HOSPITAL COURSE: Date of Admission:02/15/19 Date of Discharge: 03/02/19 Patient is an 83 year old female with past medical history of A.fib, DM, HTN, Hyperthyroidism, presented to the ED with worsening abdominal pain and anemia and was subsequently found to have a colonic mass. Patient underwent left hemicolectomy. On post-op day 6, patient developed wound infection on surgical site. Wound was cleaned and culture taken. She was started on IV Zosyn. ID consulted. #Colon Cancer: Invasive adenocarcinoma T3N0 -POD 9 left colectomy with splenic flexure takedown and primary anastomosis -Surgery (Dr. Alvarado) consulted. Recommendations appreciated. -Wound culture - Staph epidermidis, staph coag neg, pending organism -Wound dressing done -Diabetic diet -Monitor WBC -Tylenol 650mg PO for fever > 100.3F -Morphine PRN for pain -Physical therapy and Incentive spirometry -ID (DR. Richmond) consulted. Recommendations appreciated. -Zosyn 3.375gm q8h day 4 -Will await final wound culture and sensitivities -Heme/Onc (Dr. Flores) consulted. Recommendations appreciated. #Microcytic anemia -likely 2/2 Iron deficiency anemia -will continue to monitor -Transfuse if Hgb<8 since cardiac patient #Rectal bleed: resolved -will continue to monitor H/H -would need colonoscopy upon recovery for further evaluation #Atrial fibrillation -rate noted to at 120s -Cardiology (Dr. Samuel) consulted. REcs appreciated. -Change Toprol XL 25mg BID to Toprol 50 mg BID. -Resume Eliquis 5mg BID -IV Lopressor 5mg or IV Cardizem PRN for added rate control Discharge Summary Reason For Visit: ANEMIA Current Active Problems Colonic mass (Acute) S/P left hemicolectomy (Acute) Microcytic anemia (Chronic) Obesity (BMI 35.0-39.9 without comorbidity) (Chronic) Condition: Stable - Instructions Diet, Activity, Other Instructions: Your visit You were admitted to the hospital because you had belly pain and was found to have colon cancer. You underwent surgery and had the tumor removed. You will be discharged to a halfway facility to continue with wound care and rehab. Care Please repeat bloodwork in 2 days. CBC with diff and CMP, and TFTs Please bring lab results to primary care doctor and infectious disease doctor. Drink plenty of fluids. LABS to be done in 2 days at the facility Medications Please take the following as prescribed: 1. Bactrim DS 1 tab twice a day for 10 days. 2. Metoprolol Succinate 50mg twice a day. Continue your other home medications as prescribed. Follow up -Please follow up with your primary care doctor (Dr. Fortune) within 1 week. -Please follow up with the infectious disease doctor (Dr. Richmond) within 1 week. -Please follow up with the oncologist (Dr. Lyle) in 1 week. -Please follow up with surgery (Dr. Alvarado). Call the office to schedule an appointment. See below for further instructions. Dr. Alvarado's Post Operative Instructions Physical activity Resume your normal everyday activity as tolerated no heavy lifting or exercise until seen by your surgeon. You may walk unlimited amounts of and climb stairs. You may resume driving the car when you feel safe and comfortable behind the wheel. Wound care Your skin lucius will be removed in Dr. Alvarado's office during your post- operative visit. Wet to dry dressing. Diet There are no dietary restrictions. Eat healthy, high-fiber foods. Drink 6 to 8 glasses of liquid each day. This will assist in keeping your bowels are regular. Pain management You may take Tylenol or acetaminophen or Ibuprofen (for example, Motrin, Advil etc.) Any pain prescription medication ordered should be taken as prescribed for moderate to severe pain. Call Dr. Alvarado for any of the following: Severe pain not relieved by medication Fever of 101 or higher Excessive bleeding or drainage on dressing Inability to urinate Call the office at [phone] for a post operative appointment in 7 - 10 days. Referrals: John Alvarado MD [Staff Physician] - 1 Week Syd Richmond MD [Staff Physician] - 1 Week Efraín Fortune MD [Primary Care Provider] - 1 Week Dariela Hernandez MD [Staff Physician] - 1 Week Anthony Samuel MD [Staff Physician] - 1 Week Disposition: [facility] - Home Medications Comprehensive Discharge Medication List: Ambulatory Orders Bimatoprost [Lumigan] 1 drop OU DAILY 04/09/17 Brimonidine Tartrate/Timolol [Combigan 0.2%-0.5% Eye Drops] 5 ml OU BID Latanoprost 0.005% Eye Drops [Xalatan 0.005% Eye Drops -] 1 drop HS 02/14/19 Methimazole 5 mg PO TID 02/14/19 Acetaminophen [Tylenol .Regular Strength -] 650 mg PO Q6H PRN tablet 03/02/19 Apixaban [Eliquis -] 5 mg PO BID tablet 03/02/19 Ascorbic Acid [Vitamin C -] 500 mg PO DAILY tablet 03/02/19 Docusate Sodium [Colace -] 100 mg PO TID capsule 03/02/19 Ferrous Sulfate [Feosol] 325 mg PO DAILY ud 03/02/19 Losartan Potassium [Cozaar -] 25 mg PO DAILY tablet 03/02/19 Methimazole [Tapazole -] 5 mg PO DAILY tablet 03/02/19 Metoprolol Tartrate [Lopressor -] 50 mg PO BID tablet 03/02/19 Sennosides [Senna -] 1 tab PO BID tablet 03/02/19 Sulfamethoxazole/Trimethoprim [Bactrim Ds -] 1 tab PO BID #20 tablet 03/02/19 - Discharge Referral Referred to [facility] No
[2019-03-02] MEDS ORDERED: PT OWN MED DRAWER 7, Y5N ONE (17:17)
== END 2019-03-02 19:26 | DRG 329 ==
LOC: JER 10:28 → JERBED 13:17 → J6S 20:25 → OBSVTOIN 02-15 10:19 → J6S 02-16 17:19 → J4W 02-25 13:47
PROVIDERS: ADMIT Internal Medicine; ATTEND Internal Medicine
PROC: 30233N1 Transfusion of Nonautologous Red Blood Cells into Peripheral Vein, Percutaneous Approach (ICD-10-PCS; 2019-02-15)
PROC: 0DD98ZX Extraction of Duodenum, Via Natural or Artificial Opening Endoscopic, Diagnostic (ICD-10-PCS; 2019-02-16)
PROC: 0DD68ZX Extraction of Stomach, Via Natural or Artificial Opening Endoscopic, Diagnostic (ICD-10-PCS; 2019-02-16)
PROC: 0DBN8ZX Excision of Sigmoid Colon, Via Natural or Artificial Opening Endoscopic, Diagnostic (ICD-10-PCS; 2019-02-16)
PROC: 0DDN8ZX Extraction of Sigmoid Colon, Via Natural or Artificial Opening Endoscopic, Diagnostic (ICD-10-PCS; 2019-02-16)
PROC: 0DSL0ZZ Reposition Transverse Colon, Open Approach (ICD-10-PCS; 2019-02-20)
PROC: 0DTM0ZZ Resection of Descending Colon, Open Approach (ICD-10-PCS; principal; 2019-02-20 08:00)
DX: C18.6 Malignant neoplasm of descending colon (principal); I50.33 Acute on chronic diastolic (congestive) heart failure; Z68.41 Body mass index [BMI] 40.0-44.9, adult; D62 Acute posthemorrhagic anemia; I48.1 Persistent atrial fibrillation; T81.41XA Infection following a procedure, superficial incisional surgical site, initial encounter; D50.9 Iron deficiency anemia, unspecified; I11.0 Hypertensive heart disease with heart failure; E05.90 Thyrotoxicosis, unspecified without thyrotoxic crisis or storm; D12.5 Benign neoplasm of sigmoid colon; K29.70 Gastritis, unspecified, without bleeding; B96.81 Helicobacter pylori [H. pylori] as the cause of diseases classified elsewhere; D72.829 Elevated white blood cell count, unspecified; E87.5 Hyperkalemia; G20 Parkinson's disease; Z79.01 Long term (current) use of anticoagulants; Z86.73 Personal history of transient ischemic attack (TIA), and cerebral infarction without residual deficits; J45.909 Unspecified asthma, uncomplicated; E11.9 Type 2 diabetes mellitus without complications; R63.4 Abnormal weight loss; Z80.0 Family history of malignant neoplasm of digestive organs; Z90.710 Acquired absence of both cervix and uterus; Z85.41 Personal history of malignant neoplasm of cervix uteri; I48.0 Paroxysmal atrial fibrillation; I25.10 Atherosclerotic heart disease of native coronary artery without angina pectoris; R59.0 Localized enlarged lymph nodes; E66.9 Obesity, unspecified; B95.7 Other staphylococcus as the cause of diseases classified elsewhere; B95.4 Other streptococcus as the cause of diseases classified elsewhere
CPT/HCPCS: 36415; 36430; 36511; 71045-TC-FY; 71260-TC; 74018-TC-FY; 74177-TC; 80048; 80053; 81003; 82378; 82728; 82962; 83540; 83550; 83615; 83735; 83880; 84100; 84132; 84439; 84443; 84481; 84484; 85025; 85027; 85044; 85610; 85730; 86850; 86900; 86901; 86922; 87070; 87086; 87186; 87205; 88305-TC; 88309-TC; 93005; 93010; 94010; 94760; 97116-GP; 97161-GP; 99285-25; G0378; J0131; P9038; P9058

== ENCOUNTER 2019-03-03 12:17 | Inpatient (IN) | payer OTHER ==
--- NOTE | 2019-03-03 12:26 | PDOC ---
History of Present Illness - General Chief Complaint: Pain Stated Complaint: PAIN Time Seen by Provider: 03/03/19 12:25 - History of Present Illness Initial Comments: 03/03/19 12:57 The patient is an 83 year old female with a history of HTN, HLD, DM, Afib, Colon CA s/p hemicolectomy who presents for evaluation of abdominal pain. The patient is accompanied by family who assist in providing the history. They note that the patient was discharged from the hospital yesterday evening following an extended stay in the hospital for her hemicolectomy complicated by a post-op wound infection. They state that the patient was not receiving any pain medication at her SNF and has been having worsening abdominal pain prompting her presentation back to the ED for further evaluation. They note that the patient has continued to pass flatus and have bowel movements. They note some nausea and drainage from the surgical wounds, but otherwise deny fevers, chills, SOB, chest pain, vomiting, or changes with urination. Past History - Past Medical History Allergies/Adverse Reactions: Allergies Allergy/AdvReac Type Severity Reaction Status Date / Time No Known Allergies Allergy Verified 03/03/19 12:50 Home Medications: Ambulatory Orders Bimatoprost [Lumigan] 1 drop OU DAILY 04/09/17 Brimonidine Tartrate/Timolol [Combigan 0.2%-0.5% Eye Drops] 5 ml OU BID Latanoprost 0.005% Eye Drops [Xalatan 0.005% Eye Drops -] 1 drop HS 02/14/19 Methimazole 5 mg PO TID 02/14/19 Acetaminophen [Tylenol .Regular Strength -] 650 mg PO Q6H PRN tablet 03/02/19 Apixaban [Eliquis -] 5 mg PO BID tablet 03/02/19 Ascorbic Acid [Vitamin C -] 500 mg PO DAILY tablet 03/02/19 Docusate Sodium [Colace -] 100 mg PO TID capsule 03/02/19 Ferrous Sulfate [Feosol] 325 mg PO DAILY ud 03/02/19 Losartan Potassium [Cozaar -] 25 mg PO DAILY tablet 03/02/19 Methimazole [Tapazole -] 5 mg PO DAILY tablet 03/02/19 Metoprolol Tartrate [Lopressor -] 50 mg PO BID tablet 03/02/19 Sennosides [Senna -] 1 tab PO BID tablet 03/02/19 Sulfamethoxazole/Trimethoprim [Bactrim Ds -] 1 tab PO BID #20 tablet 03/02/19 Anemia: No Asthma: Yes Cancer: Yes (cervical) Cardiac Disorders: Yes (A-FIB) CVA: No COPD: No CHF: No DVT: No Dementia: No Diabetes: Yes GI Disorders: Yes (gerd) Disorders: No HTN: Yes Hypercholesterolemia: Yes Liver Disease: No Seizures: No Thyroid Disease: Yes (hyperthyroid) - Surgical History Abdominal Surgery: No Cardiac Surgery: No Lung Surgery: No Neurologic Surgery: No - Suicide/Smoking/Psychosocial Hx Smoking History: Never smoked Have you smoked in the past 12 months: No Number of Cigarettes Smoked Daily: 0 Hx Alcohol Use: No Drug/Substance Use Hx: No Substance Use Type: None Hx Substance Use Treatment: No Review of Systems - Review of Systems Comments:: 03/03/19 13:02 Constitutional: No fevers, chills, fatigue, malaise HEENT: No Rhinorrhea, nasal congestion, visual changes Cardiovascular: No chest pain, syncope, palpitations, lightheadedness Respiratory: No Cough, SOB, Hemoptysis, Gastrointestinal: Nausea, Abdominal pain. No Vomiting, Constipation, Diarrhea, Melena Genitourinary: No Dysuria, Frequency, Urgency, Hesitancy, Hematuria, Flank pain Musculoskeletal: No Myalgia, arthralgia Skin: No rashes, itching, bruising, pallor Neurologic: No Headache, Dizziness, Numbness, Weakness, or Tingling Psychiatric: No Hallucinations. No SI or HI *Physical Exam - Physical Exam Comments: 03/03/19 13:02 General Appearance: Nourished. No Apparent Distress HEENT: No Pharyngeal Erythema, Tonsillar Exudate, Tonsillar Erythema Neck: No Cervical Lymphadenopathy Respiratory/Chest: Lungs Clear, Normal Breath Sounds. No Crackles, Rales, Rhonchi, Wheezing Cardiovascular: Regular Rhythm, Regular Rate. No Murmur, Gallops, Rubs Gastrointestinal/Abdominal: Normal Bowel Sounds, Soft. Diffuse discomfort with palpation on exam. Surgical wound noted to the mid abdomen extending above and below the umbilicus with two areas of open wound to the superior and inferior aspects of the surgical sites with some purulent drainage noted. no surrounding warmth or Erythema. No Guarding, Rebound, Musculoskeletal: No CVA Tenderness Extremity: Normal Capillary Refill Integumentary: Normal Color, Dry, Warm Neurologic: Fully Oriented, Alert, Normal Mood/Affect, Normal Response, ED Treatment Course - LABORATORY CBC & Chemistry Diagram: 03/03/19 12:50 03/03/19 12:50 Medical Decision Making - Medical Decision Making 03/03/19 13:04 The patient is an 83 year old female with a history of HTN, HLD, DM, Afib, Colon CA s/p hemicolectomy who presents for evaluation of abdominal pain. Given the patient's history and physical exam, we will obtain a cbc, cmp, mag, phos, ekg, CT abdomen/pelvis to evaluate further. We discussed with the family who does not wish for the patient to return to the facility she was initially discharged to. We will treat the patient with tylenol and morphine and discuss the case with the patient's surgeon Dr. Alvarado. We will continue to monitor and reassess while here in the ED. 03/03/19 15:40 CBC, cmp, mag, phos are unremarkable. We discussed the case with the admitting team who accepted the patient for admission. We discussed the case with Dr. Alvarado who stated that Dr. Grissom is covering for him. We discussed the case with Dr. Grissom who is aware of the case. We will continue to follow up on the results of the patient's CT scan. 03/03/19 19:20 CT scan demonstrates dehiscence of the bertical midline incision with partial dehiscence of the lower aspect of the rectus muscles with some fat and a loop of bowel herniating into the lower aspect of the incision as preliminarily read by our transmission maintenance supervisor radiologist. Re-evaluation of the wound demonstrates portion of bowel at the lower aspect of the wound. We discussed the case with Dr. Grissom who agrees the patient is likely eviscerating and will need to go to the OR tonight and he is en route to evaluate the patient. *DC/Admit/Observation/Transfer Diagnosis at time of Disposition: S/P left hemicolectomy Abdominal pain Qualifiers: Abdominal location: unspecified location Qualified Code(s): R10.9 - Unspecified abdominal pain - Discharge Dispostion Condition at time of disposition: Stable Decision to Admit order: Yes - Referrals - Patient Instructions - Post Discharge Activity
[2019-03-03] MEDS ORDERED: morphine CARPU-JECT 4 MG/1 ML DISP.SYRIN IVPUSH ONE ×2 (12:33→21:14)
--- NOTE | 2019-03-03 12:57 | PDOC ---
Attending Attestation - HPI HPI: The patient is a 83 year old female, with a significant past medical history of HTN, HLD, DM, Afib, Colon CA (s/p hemicolectomy 02/22 and d/c 03/02 on Bactrim for wound), who presents to the emergency department via EMS from [facility] with , wound pain and poor wound care. As per family at bedside, they would like the patient to be admitted for wound care and new NH placement. She denies recent dysuria, frequency, urgency or hematuria. She denies recent chest pain or shortness of breath. Allergies: NKDA Social history: [facility]. Documentation prepared by Shirley Anton, acting as medical assisting program director for Rachel Michael MD. <Shirley Anton - Last Filed: 03/03/19 13:50> - Resident Resident Name: Dario Sin - ED Attending Attestation I have performed the following: I have examined & evaluated the patient, The case was reviewed & discussed with the resident, I agree w/resident's findings & plan, Exceptions are as noted - Physicial Exam PE: 03/03/19 14:01 awake alert lungs clear bilaterally heart rrr no mrg abd soft superior indision open, with packing in place. purulence draining on wound. lucius intact midline , inferior incision open with packing also yellow purulent drainage. abd llq ttp. no rebound no guarding mild left mid quad ttp. ext wwp no devorah. no calf tenderness. alert orientd x 3. - Medical Decision Making 03/03/19 14:03 83 yo F h/o afib htn colon ca s/p hemicolectomoy 02/22 reanastamosis, complicated by wound infection, dc on 03/02 on bactrim here with c/o persistant abd pain and drainage from wound. per daughter pt has had ongoing pain in abd. no f/c no cough no sob. drainage from wound which was left to heal secondarily upper and lower portion. on exam abd wound with purulent drainage. llq ttp. differnetial wound infection , intrabdominal abscess. plan labs cultures, vanco and zosyn, ct a/p . will d/w dr elias, and later d/w dr sparrow who will see the patient in the hospital. ct a/p ordered and pending. morphine for pain control. wbc normal. afebrile here. <Rachel Michael - Last Filed: 03/03/19 14:06> Heart Score/ECG Review #1 General ECG Interpretation: Sinus Rhythm, Normal Intervals, No acute ischemic changes Compared to previous ECG there are: Other (RBBB, TWI v1 - v3. afib. rvr, rate 115) <Rachel Michael - Last Filed: 03/03/19 14:06>
[2019-03-03] MEDS ORDERED: ACETAMINOPHEN 1000 MG/100 ML VIAL (NON FORMULARY) IVPB ONE ×2 (13:01→23:45)
[2019-03-03] MEDS ORDERED: ACETAMINOPHEN INJECTION 100 ML IVPB ONE (13:05)
[2019-03-03] MEDS ORDERED: morphine SULFATE 4 MG/ML VIAL ONE ×2 (13:05→21:16)
[2019-03-03 13:07] LABS: BASO % 0.2 % (0-2.0); EOS % 0.8 % (0-4.5); HEMATOCRIT 30.1 % (32.4-45.2); HEMOGLOBIN 9.6 GM/dL (10.7-15.3); LYMPH % 11.2 % (8-40); MCH 24.1 pg (25.7-33.7); MCHC 31.8 g/dl (32.0-36.0); MEAN CELL VOLUME 75.8 fl (80-96); MEAN PLT VOLUME 7.9 fl (7.5-11.1); MONO % 10.5 % (3.8-10.2); NEUT % 77.3 % (42.8-82.8); PLATELET COUNT 420 K/MM3 (134-434); RBC 3.97 M/mm3 (3.60-5.2); RDW 29.5 % (11.6-15.6); WHITE BLOOD COUNT 9.4 K/mm3 (4.0-10.0)
[2019-03-03] MEDS ORDERED: PIPERACILLIN/TAZOB 4.5 GM 4.5 GM in DEXTROSE 5%-WATER 100 ML IVPB ONE (13:30)
[2019-03-03] MEDS ORDERED: VANCOMYCIN HCL 1,250 MG in DEXTROSE 5%-WATER - 250 ML IVPB ONE (13:30)
[2019-03-03] MEDS ORDERED: PIPERACILLIN/TAZOB 4.5 GM 4.5 GM/100 ML BAG IVPB ONE (13:36)
[2019-03-03 13:37] LABS: ALBUMIN 1.8 g/dl (3.4-5.0); ALK PHOS 81 U/L (45-117); ANION GAP 5 MMOL/L (8-16); BILIRUBIN,TOTAL 0.5 mg/dL (0.2-1); BLOOD UREA NITROGEN 10 mg/dL (7-18); CALCIUM 7.9 mg/dL (8.5-10.1); CHLORIDE 101 mmol/L (98-107); CO2 33 mmol/L (21-32); CREATININE 0.4 mg/dL (0.55-1.3); GLUCOSE,RANDOM 113 mg/dL (74-106); PHOSPHOROUS 3.2 mg/dL (2.5-4.9); POTASSIUM 4.1 mmol/L (3.5-5.1); SGOT/AST 54 U/L (15-37); SGPT/ALT 25 U/L (13-61); SODIUM 138 mmol/L (136-145)
[2019-03-03 18:07] LABS: URINE APPEARANCE CLEAR; URINE BILIRUBIN NEGATIVE (NEGATIVE); URINE COLOR YELLOW; URINE GLUCOSE (UA) NEGATIVE (NEGATIVE); URINE KETONE NEGATIVE (NEGATIVE)
[2019-03-03 18:08] LABS: URINE PROTEIN 1+ (NEGATIVE)
[2019-03-03 18:09] LABS: URINE LEUK ESTERASE NEGATIVE (NEGATIVE); URINE NITRITE NEGATIVE (NEGATIVE)
[2019-03-03 18:10] LABS: EPI CELLS 7.3 /HPF (0-5/HPF); URINE RBC 2 /hpf (0-4); URINE WBC 1 /hpf (0-5)
[2019-03-03 18:11] LABS: URINE BACTERIA 0.2 /hpf (NEGATIVE)
[2019-03-03 18:14] LABS: URINE CASTS 4 /hpf (0-8)
--- NOTE | 2019-03-03 18:33 | CONSULT ---
Consult Consult Specialty:: General Surgery Covering Reason for Consultation:: abdominal wound? - History of Present Illness Chief Complaint: wound concern History of Present Illness: 83 yo female PMH Colon Ca (s/p Hemicolectomy, 02/2019), HTN, HLD, Afib (on Eliquis), Diastolic CHF, HLD, Hyperthyroidism. Who presents to the ED with her daughters for abdominal pain. The patient who is [place] speaking, had her 2 daughters at bedside who provided HPI. Per the daughter the patient was diagnosed with Colon Ca had a L- Hemicolectomy and was discharged 03/02 to [facility]. The daughter discussed her concerns that her mother's pain was not being addressed and that her care was not to her satisfaction, she requested to have the ambulance bring the patient to the ED for evaluation. 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 SETTER: Yes: Parkinson's Cardio/Vascular: Yes: AFIB, HTN Pulmonary: Yes: Asthma Endocrine: Yes: Hyperthyroidism Additional Medical History: Glaucoma - Past Surgical History Past Surgical History: Yes: Hysterectomy - Alcohol/Substance Use Hx Alcohol Use: No - Smoking History Smoking history: Never smoked Have you smoked in the past 12 months: No Aproximately how many cigarettes per day: 0 Home Medications - Allergies Allergies/Adverse Reactions: Allergies Allergy/AdvReac Type Severity Reaction Status Date / Time No Known Allergies Allergy Verified 03/03/19 12:50 - Home Medications Home Medications: Ambulatory Orders Bimatoprost [Lumigan] 1 drop OU DAILY 04/09/17 Brimonidine Tartrate/Timolol [Combigan 0.2%-0.5% Eye Drops] 5 ml OU BID Latanoprost 0.005% Eye Drops [Xalatan 0.005% Eye Drops -] 1 drop HS 02/14/19 Methimazole 5 mg PO TID 02/14/19 Acetaminophen [Tylenol .Regular Strength -] 650 mg PO Q6H PRN tablet 03/02/19 Apixaban [Eliquis -] 5 mg PO BID tablet 03/02/19 Ascorbic Acid [Vitamin C -] 500 mg PO DAILY tablet 03/02/19 Docusate Sodium [Colace -] 100 mg PO TID capsule 03/02/19 Ferrous Sulfate [Feosol] 325 mg PO DAILY ud 03/02/19 Losartan Potassium [Cozaar -] 25 mg PO DAILY tablet 03/02/19 Methimazole [Tapazole -] 5 mg PO DAILY tablet 03/02/19 Metoprolol Tartrate [Lopressor -] 50 mg PO BID tablet 03/02/19 Sennosides [Senna -] 1 tab PO BID tablet 03/02/19 Sulfamethoxazole/Trimethoprim [Bactrim Ds -] 1 tab PO BID #20 tablet 03/02/19 Review of Systems - Review of Systems Constitutional: denies: Chills, Fever Eyes: denies: Blind Spots, Other HENT: denies: Difficult Swallowing, Throat Pain Neck: denies: Decreased ROM, Pain on Movement Cardiovascular: denies: Chest Pain, Palpitations Respiratory: denies: Cough, SOB Gastrointestinal: denies: Abdominal Pain, Constipation, Diarrhea Genitourinary: denies: Discharge, Dysuria Breasts: reports: No Symptoms Reported. denies: Pain Musculoskeletal: denies: Back Pain, Crepitus Integumentary: denies: Bruising, Lesions, Lump Neurological: denies: Seizure, Syncope Endocrine: denies: Excessive Sweating, Unexplained Weight Gain, Unexplained Weight Loss Hematology/Lymphatic: denies: Easily Bruised, Excessive Bleeding Psychiatric: denies: Anxiety, Depression Physical Exam Vital Signs: Vital Signs Temperature 98.0 F 03/03/19 12:35 Pulse Rate 115 H 03/03/19 16:47 Respiratory Rate 20 03/03/19 16:47 Blood Pressure 106/54 L 03/03/19 16:47 O2 Sat by Pulse Oximetry (%) 95 03/03/19 16:47 Vital Signs Period Temp Pulse Resp BP Sys/Ugarte Pulse Ox Last 24 Hr 97.9 F-98.7 F 102-112 20-20 105-120/62-69 96-100 Constitutional: Yes: Well Nourished, No Distress, Calm, Obese Eyes: Yes: Conjunctiva Clear, EOM Intact HENT: Yes: Atraumatic, Normocephalic Neck: Yes: Supple, Trachea Midline Cardiovascular: Yes: Regular Rate and Rhythm, S1, S2 Respiratory: Yes: Regular, CTA Bilaterally Gastrointestinal: Yes: Normal Bowel Sounds, Soft, Abdomen, Obese, Hernia ...Rectal Exam: Yes: Deferred Renal/: No: CVA Tenderness - Left, CVA Tenderness - Right Musculoskeletal: No: Muscle Pain, Muscle Weakness Extremities: No: Cool, Cyanosis Edema: No Peripheral Pulses WNL: Yes Integumentary: Yes: Incision Wound/Incision: Yes: Clean/Dry, Unapproximated (6X4cm defect with exposed small bowel surrounding graulation tissue). No: Draining, Reddened, Bleeding Neurological: Yes: Alert, Confusion. No: Oriented Psychiatric: Yes: Alert. No: Oriented Labs: CBC, BMP 03/03/19 12:50 03/03/19 12:50 Imaging - Results Cat Scan: Report Reviewed, Image Reviewed (loop of small bowel in lower midline awll defect) Problem List - Problems (1) Wound dehiscence, surgical Assessment/Plan: 83 yo female with MMP lower midline wound dehissance (at fascia) with an eviscerated and incarcerated (not strangulated) loop of small intestines in a granulating bed. Likely secondary to very poor nutritional status. No acute intervention is indicated. Medical management Continue diet as tolerated Optimize nutritional status, protein supplementation (current prealb 5.6) Local wound care - wet-to-dry dressing Consider VAC with white foam over the bowel and granulofoam cover Thank you for the opportunity to participate in the care of this patient. Code(s): T81.31XA - DISRUPTION OF EXTERNAL OPERATION (SURGICAL) WOUND, NEC, INIT Qualifiers: Encounter type: initial encounter Qualified Code(s): T81.31XA - Disruption of external operation (surgical) wound, not elsewhere classified, initial encounter (2) Afib Code(s): I48.91 - UNSPECIFIED ATRIAL FIBRILLATION Qualifiers: Atrial fibrillation type: chronic Qualified Code(s): I48.2 - Chronic atrial fibrillation (3) Obesity (BMI 30-39.9) Code(s): E66.9 - OBESITY, UNSPECIFIED (4) CAD (coronary artery disease) Code(s): I25.10 - ATHSCL HEART DISEASE OF [place] CORONARY ARTERY W/O ANG PCTRS Qualifiers: Coronary Disease-Associated Artery/Lesion type: [place] artery [place] vs. transplanted heart: [place] heart Associated angina: without angina Qualified Code(s): I25.10 - Atherosclerotic heart disease of [place] coronary artery without angina pectoris (5) CVA (cerebral vascular accident) Code(s): I63.9 - CEREBRAL INFARCTION, UNSPECIFIED Qualifiers: CVA mechanism: unspecified Qualified Code(s): I63.9 - Cerebral infarction, unspecified (6) HTN (hypertension) Code(s): I10 - ESSENTIAL (PRIMARY) HYPERTENSION Qualifiers: Hypertension type: essential hypertension Qualified Code(s): I10 - Essential (primary) hypertension (7) Parkinson disease Code(s): G20 - PARKINSON'S DISEASE
[2019-03-03] MEDS ORDERED: SODIUM CHLORIDE 1,000 ML IV STA (18:55)
[2019-03-03 21:11] LABS: INR 1.39 (0.83-1.09); PROTHROMBIN TIME (PATIENT) 16.5 SEC (9.7-13.0)
[2019-03-03 21:14] LABS: ACTIVATED PTT 33.6 SECONDS (25.2-36.5)
[2019-03-03] MEDS ORDERED: ONDANSETRON 4 MG/2 ML VIAL IVPUSH ONE (21:23)
[2019-03-03] MEDS ORDERED: ONDANSETRON 4 MG/2 ML VIAL ONE (21:26)
[2019-03-04] MEDS ORDERED: morphine CARPU-JECT 4 MG/1 ML DISP.SYRIN IVPUSH ONE (02:45)
[2019-03-04] MEDS ORDERED: morphine SULFATE 4 MG/ML VIAL IVPUSH ONE ×2 (02:45→08:53)
--- NOTE | 2019-03-04 03:51 | HP ---
Admitting History and Physical - Primary Care Physician PCP: Efraín Fortune (Resident of [facility]) - Admission Chief Complaint: Abdominal Pain History of Present Illness: This is a 83 y/o woman with significant medical history of Colon Ca (s/p Hemicolectomy, 02/2019), HTN, HLD, Afib ( on Eliquis), Diastolic CHF, HLD, Hyperthyroidism. Who presents to the ED with her daughters for abdominal pain. The patient who is [place] speaking, had her 2 daughters at bedside who provided HPI. Per the daughter the patient was diagnosed with Colon Ca had a L- Hemicolectomy and was discharged 03/02 to [facility]. The daughter discussed her concerns that her mother's pain was not being addressed and that her care was not to her satisfaction, she requested to have the ambulance bring the patient to the ED for evaluation. Per the daughter: The patient continued to pass flatus and has had bowel movements. The daughter reports that the patient was nauseous and had drainage coming from the surgical wounds. The daughter denies the patient having fevers, chills, dizziness, CERRATO, SOB, CP, palpitations, vomiting, diarrhea, dysuria. 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 cervical CA or ovarian CA S/P hyterectomy) Endocrine: Yes: Hyperthyroidism - Past Surgical History Past Surgical History: Yes: Hysterectomy (salpinoophrectomy) Additional Past Surgical History: Hemicolectomy - Smoking History Smoking history: Never smoked Have you smoked in the past 12 months: No Aproximately how many cigarettes per day: 0 - Alcohol/Substance Use Hx Alcohol Use: No - Social History Usual Living Arrangement: Yes: With Child ADL: Family Assistance History of Recent Travel: No Home Medications - Allergies Allergies/Adverse Reactions: Allergies Allergy/AdvReac Type Severity Reaction Status Date / Time No Known Allergies Allergy Verified 03/03/19 12:50 - Home Medications Home Medications: Ambulatory Orders Bimatoprost [Lumigan] 1 drop OU DAILY 04/09/17 Brimonidine Tartrate/Timolol [Combigan 0.2%-0.5% Eye Drops] 5 ml OU BID Latanoprost 0.005% Eye Drops [Xalatan 0.005% Eye Drops -] 1 drop HS 02/14/19 Methimazole 5 mg PO TID 02/14/19 Acetaminophen [Tylenol .Regular Strength -] 650 mg PO Q6H PRN tablet 03/02/19 Apixaban [Eliquis -] 5 mg PO BID tablet 03/02/19 Ascorbic Acid [Vitamin C -] 500 mg PO DAILY tablet 03/02/19 Docusate Sodium [Colace -] 100 mg PO TID capsule 03/02/19 Ferrous Sulfate [Feosol] 325 mg PO DAILY ud 03/02/19 Losartan Potassium [Cozaar -] 25 mg PO DAILY tablet 03/02/19 Methimazole [Tapazole -] 5 mg PO DAILY tablet 03/02/19 Metoprolol Tartrate [Lopressor -] 50 mg PO BID tablet 03/02/19 Sennosides [Senna -] 1 tab PO BID tablet 03/02/19 Sulfamethoxazole/Trimethoprim [Bactrim Ds -] 1 tab PO BID #20 tablet 03/02/19 Family Disease History - Family Disease History Family History: Unable to Obtain Review of Systems - Review of Systems Constitutional: reports: No Symptoms Eyes: reports: No Symptoms HENT: reports: No Symptoms Neck: reports: No Symptoms Cardiovascular: reports: No Symptoms Respiratory: reports: No Symptoms Gastrointestinal: reports: Abdominal Pain Genitourinary: reports: No Symptoms Breasts: reports: No Symptoms Reported Musculoskeletal: reports: No Symptoms Integumentary: reports: Wound (abdominal surgical wounds open, draining) Neurological: reports: No Symptoms Endocrine: reports: No Symptoms Hematology/Lymphatic: reports: No Symptoms Psychiatric: reports: No Symptoms Pain Intensity: 6 Physical Examination Vital Signs: Vital Signs Temperature 98.4 F 03/03/19 23:39 Pulse Rate 123 H 03/03/19 23:39 Respiratory Rate 18 03/03/19 23:39 Blood Pressure 135/81 03/03/19 23:39 O2 Sat by Pulse Oximetry (%) 97 03/03/19 23:39 Constitutional: Yes: Mild Distress, Obese Eyes: Yes: WNL, Conjunctiva Clear, EOM Intact, PERRL HENT: Yes: WNL, Atraumatic, Normocephalic Neck: Yes: WNL, Supple, Trachea Midline Cardiovascular: Yes: Pulse Irregular, S1, S2 Respiratory: Yes: WNL, Regular, CTA Bilaterally, On Nasal O2 Gastrointestinal: Yes: Normal Bowel Sounds, Other (open surgical wounds with sterile gauze and Abdominal Dressing) Breast(s): Yes: WNL Musculoskeletal: Yes: WNL Extremities: Yes: WNL Edema: No Peripheral Pulses WNL: Yes Integumentary: Yes: WNL Wound/Incision: Yes: Other (surgical wounds to mid abdomen above and below umbilicus 2 large areas of open wounds superior and inferior aspects of surgical sites, with giles purulent drainage) Neurological: Yes: Alert ...Motor Strength: WNL Psychiatric: Yes: Alert Labs: CBC, BMP 03/03/19 12:50 03/03/19 12:50 Laboratory Results - last 24 hr 03/03/19 03/03/19 03/03/19 12:50 12:50 16:13 WBC 9.4 RBC 3.97 Hgb 9.6 L Hct 30.1 L MCV 75.8 L MCH 24.1 L MCHC 31.8 L RDW 29.5 H Plt Count 420 MPV 7.9 Absolute Neuts (auto) 7.2 Neutrophils % 77.3 Lymphocytes % 11.2 D Monocytes % 10.5 H Eosinophils % 0.8 Basophils % 0.2 Nucleated RBC % 0 PT with INR INR PTT (Actin FS) Sodium 138 Potassium 4.1 Chloride 101 Carbon Dioxide 33 H Anion Gap 5 L BUN 10 Creatinine 0.4 L Creat Clearance w eGFR 152.81 Random Glucose 113 H Lactic Acid Calcium 7.9 L Phosphorus 3.2 Magnesium 2.0 Total Bilirubin 0.5 AST 54 H ALT 25 Alkaline Phosphatase 81 Total Protein 5.0 L Albumin 1.8 L Prealbumin Urine Color Yellow Urine Appearance Clear Urine pH 6.0 Ur Specific [place] 1.057 H Urine Protein 1+ H Urine Glucose (UA) Negative Urine Ketones Negative Urine Blood Negative Urine Nitrite Negative Urine Bilirubin Negative Urine Urobilinogen 1.0 Ur Leukocyte Esterase Negative Urine WBC (Auto) 1 Urine RBC (Auto) 2 Urine Casts (Auto) 4 U Epithel Cells (Auto) 7.3 Urine Bacteria (Auto) 0.2 Blood Type Antibody Screen 03/03/19 03/03/19 03/03/19 20:15 20:15 20:15 WBC RBC Hgb Hct MCV MCH MCHC RDW Plt Count MPV Absolute Neuts (auto) Neutrophils % Lymphocytes % Monocytes % Eosinophils % Basophils % Nucleated RBC % PT with INR INR PTT (Actin FS) Cancelled Sodium Potassium Chloride Carbon Dioxide Anion Gap BUN Creatinine Creat Clearance w eGFR Random Glucose Lactic Acid 1.8 Calcium Phosphorus Magnesium Total Bilirubin AST ALT Alkaline Phosphatase Total Protein Albumin Prealbumin 5.6 L Urine Color Urine Appearance Urine pH Ur Specific [place] Urine Protein Urine Glucose (UA) Urine Ketones Urine Blood Urine Nitrite Urine Bilirubin Urine Urobilinogen Ur Leukocyte Esterase Urine WBC (Auto) Urine RBC (Auto) Urine Casts (Auto) U Epithel Cells (Auto) Urine Bacteria (Auto) Blood Type Antibody Screen 03/03/19 03/03/19 20:15 20:15 WBC RBC Hgb Hct MCV MCH MCHC RDW Plt Count MPV Absolute Neuts (auto) Neutrophils % Lymphocytes % Monocytes % Eosinophils % Basophils % Nucleated RBC % PT with INR 16.50 H INR 1.39 H PTT (Actin FS) 33.6 Sodium Potassium Chloride Carbon Dioxide Anion Gap BUN Creatinine Creat Clearance w eGFR Random Glucose Lactic Acid Calcium Phosphorus Magnesium Total Bilirubin AST ALT Alkaline Phosphatase Total Protein Albumin Prealbumin Urine Color Urine Appearance Urine pH Ur Specific [place] Urine Protein Urine Glucose (UA) Urine Ketones Urine Blood Urine Nitrite Urine Bilirubin Urine Urobilinogen Ur Leukocyte Esterase Urine WBC (Auto) Urine RBC (Auto) Urine Casts (Auto) U Epithel Cells (Auto) Urine Bacteria (Auto) Blood Type O POSITIVE Antibody Screen Negative Current Medications Generic Name Dose Route Start Last Admin Trade Name Freq PRN Reason Stop Dose Admin Heparin Sodium (Porcine) 5,000 unit 03/04/19 10:00 Heparin - SQ BID SRIKANTH Dextrose/Sodium Chloride 1,000 mls @ 30 mls/hr 03/04/19 04:00 03/04/19 04:14 D5-1/2ns - IV 30 mls/hr ASDIR SRIKANTH Administration Morphine Sulfate 4 mg 03/04/19 08:00 Morphine Sulfate IVPUSH Q6H PRN PAIN LEVEL 7 - 10 Imaging - Results Chest X-ray: Pending Cat Scan: Report Reviewed, Image Reviewed Problem List - Problems (1) Abdominal pain Code(s): R10.9 - UNSPECIFIED ABDOMINAL PAIN Qualifiers: Abdominal location: unspecified location Qualified Code(s): R10.9 - Unspecified abdominal pain (2) S/P left hemicolectomy Code(s): Z90.49 - ACQUIRED ABSENCE OF OTHER SPECIFIED PARTS OF DIGESTIVE TRACT (3) Acute on chronic diastolic (congestive) heart failure Code(s): I50.33 - ACUTE ON CHRONIC DIASTOLIC (CONGESTIVE) HEART FAILURE (4) CAD (coronary artery disease) Code(s): I25.10 - ATHSCL HEART DISEASE OF [place] CORONARY ARTERY W/O ANG PCTRS Qualifiers: Coronary Disease-Associated Artery/Lesion type: [place] artery [place] vs. transplanted heart: [place] heart Associated angina: without angina Qualified Code(s): I25.10 - Atherosclerotic heart disease of [place] coronary artery without angina pectoris (5) Hyperthyroidism Code(s): E05.90 - THYROTOXICOSIS, UNSP WITHOUT THYROTOXIC CRISIS OR STORM (6) Asthma Code(s): J45.909 - UNSPECIFIED ASTHMA, UNCOMPLICATED Qualifiers: Asthma severity: mild Asthma persistence: intermittent Asthma complication type: unspecified Qualified Code(s): J45.20 - Mild intermittent asthma, uncomplicated (7) Diabetes mellitus Code(s): E11.9 - TYPE 2 DIABETES MELLITUS WITHOUT COMPLICATIONS Qualifiers: Diabetes mellitus type: type 2 Diabetes mellitus penitentiary insulin use: without penitentiary use Diabetes mellitus complication status: without complication Qualified Code(s): E11.9 - Type 2 diabetes mellitus without complications (8) HTN (hypertension) Code(s): I10 - ESSENTIAL (PRIMARY) HYPERTENSION Qualifiers: Hypertension type: essential hypertension Qualified Code(s): I10 - Essential (primary) hypertension (9) CVA (cerebral vascular accident) Code(s): I63.9 - CEREBRAL INFARCTION, UNSPECIFIED Qualifiers: CVA mechanism: unspecified Qualified Code(s): I63.9 - Cerebral infarction, unspecified (10) Parkinson disease Code(s): G20 - PARKINSON'S DISEASE (11) Microcytic anemia Code(s): D50.9 - IRON DEFICIENCY ANEMIA, UNSPECIFIED (12) Obesity (BMI 30-39.9) Code(s): E66.9 - OBESITY, UNSPECIFIED Assessment/Plan This is a 83 y/o woman with significant medical history of Colon Ca s/p hemicolectomy, HTN, HLD, Afib, Diastolic CHF, CVA (no residual deficit), DM, Hyperthyroidism, Cervical Ca s/p Hysterectomy. Admitted for Acute Abdominal pain s/p L- Hemicolectomy for further evaluation of their emergent condition. Plan: Will admit to M/S Surgeon aware and is following- pending OR Blood Cultures-pending Urine Cultures- pending Wound Culture done 02/26/19- Staphylococcus Epidermidis, Staphylococcus Lugdimensis, Alpha Hemolytic Streptococcus Vancomycin, Zosyn given in ED Continue Zosyn for now, and defer to ID Appreciate ID Consult Cardiology Consult- surgical clearance Monitor CBC, BMP Chest Portable- pending NS bolus given in ED Will continue gentle IVF secondary to dCHF hx Morphine Sulfate-prn Dressing changes Resume PO meds when cleared by surgeon Lopressor IV for rate control FEN- Replete lytes prn, NPO DVT ppx- OOB, SCDs, Heparin SQ Dispo: Requires Inpatient Care Addendum: Was notified by the RN that the patient was admitted, had minimal orders, was in severe pain and that the patient's family wanted to speak to the covering provider of the patient. I saw the patient and placed orders The RN spoke with Dr. Grissom who will see the patient today and take to the OR on Tuesday. 06:20 Patient's HR 119 Transferred to [facility] for Tele Monitoring Discussed Case with Nursing Prepress OperatorOra for bed assignment Family and patient both aware and agree. Visit type - Emergency Visit Emergency Visit: Yes ED Registration Date: 03/03/19 Care time: The patient presented to the Emergency Department on the above date and was hospitalized for further evaluation of their emergent condition. - New Patient This patient is new to me today: Yes Date on this admission: 03/04/19 - Critical Care Critical Care patient: No
[2019-03-04] MEDS ORDERED: DEXTROSE 5%-0.45% SALINE 1,000 ML IV SCH ×2 (04:00→08:53)
[2019-03-04] MEDS ORDERED: METOPROLOL TARTRATE 5 MG/5 ML VIAL IVPUSH ONE (06:30)
[2019-03-04] MEDS ORDERED: DEXTROSE 5%-WATER - 50 ML IVPB ONE ×3 (06:36→16:47)
[2019-03-04] MEDS ORDERED: PIPERACILLIN/TAZOBACTAM 3.375 GM VIAL IVPB ONE ×3 (06:36→16:47)
[2019-03-04] MEDS ORDERED: PIPERACILLIN/TAZOB 3.375 GM 3.375 GM in DEXTROSE 5%-WATER - 50 ML IVPB SCH ×2 (07:00→10:00)
[2019-03-04 07:05] LABS: BASO % 0.8 % (0-2.0); EOS % 1.8 % (0-4.5); HEMATOCRIT 29.2 % (32.4-45.2); HEMOGLOBIN 9.4 GM/dL (10.7-15.3); LYMPH % 14.7 % (8-40); MCH 24.5 pg (25.7-33.7); MCHC 32.2 g/dl (32.0-36.0); MEAN PLT VOLUME 7.9 fl (7.5-11.1); NEUT % 71.7 % (42.8-82.8); PLATELET COUNT 402 K/MM3 (134-434); RBC 3.84 M/mm3 (3.60-5.2); RDW 30.4 % (11.6-15.6); WHITE BLOOD COUNT 9.4 K/mm3 (4.0-10.0)
[2019-03-04 07:32] LABS: INR 1.34 (0.83-1.09); PROTHROMBIN TIME (PATIENT) 15.9 SEC (9.7-13.0)
[2019-03-04 07:37] LABS: ANION GAP 6 MMOL/L (8-16); BLOOD UREA NITROGEN 7 mg/dL (7-18); CALCIUM 7.4 mg/dL (8.5-10.1); CHLORIDE 104 mmol/L (98-107); CO2 32 mmol/L (21-32); CREATININE 0.4 mg/dL (0.55-1.3); GLUCOSE,RANDOM 95 mg/dL (74-106); POTASSIUM 3.4 mmol/L (3.5-5.1); SODIUM 142 mmol/L (136-145)
[2019-03-04] MEDS ORDERED: morphine SULFATE 4 MG/ML VIAL IVPUSH PRN ×2 (08:00→08:53)
[2019-03-04] MEDS ORDERED: dilTIAZem HCL 50 MG/10 ML - 10 ML VIAL IVPUSH ONE (08:50)
--- NOTE | 2019-03-04 08:50 | CON.CARD ---
Consult Consult Specialty:: Cardiology Referred by:: Prema Parrish MD Reason for Consultation:: Cardiac evaluation - History of Present Illness Chief Complaint: Post op wound infection History of Present Illness: Patient is an 83 year old female well known to me with underlying hitory of parkinson's syndrome, cervical cancer s/p hysterectomy, salpingoopherctomy, PAF on DOAC, HTN, hyperthyroidism, DM and bronchial asthma who recently had hemicolectomy for colon CA and was discharged to SNF now returns with purulent discharge from the wound site in the abdomen. She denies chest pain, SOB or palpitations. She denies paroxysmal nocturnal dyspnea or orthopnea. She denies fever or chills. She denies nausea, vomiting, diarrhea or abdominal pain. She denies headache or lightheadedness. 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 Cardio/Vascular: Yes: AFIB, CHF (diastolic), HTN, Hyperlipdemia Pulmonary: Yes: Asthma Gastrointestinal: Yes: Cancer (colon) Endocrine: Yes: Hyperthyroidism Additional Medical History: Glaucoma - Past Surgical History Past Surgical History: Yes: Colectomy, Hysterectomy (salpinoophrectomy) - Alcohol/Substance Use Hx Alcohol Use: No - Smoking History Smoking history: Never smoked Have you smoked in the past 12 months: No Aproximately how many cigarettes per day: 0 - Social History ADL: Family Assistance History of Recent Travel: No Home Medications - Allergies Allergies/Adverse Reactions: Allergies Allergy/AdvReac Type Severity Reaction Status Date / Time No Known Allergies Allergy Verified 03/03/19 12:50 - Home Medications Home Medications: Ambulatory Orders Bimatoprost [Lumigan] 1 drop OU DAILY 04/09/17 Brimonidine Tartrate/Timolol [Combigan 0.2%-0.5% Eye Drops] 5 ml OU BID Latanoprost 0.005% Eye Drops [Xalatan 0.005% Eye Drops -] 1 drop HS 02/14/19 Methimazole 5 mg PO TID 02/14/19 Acetaminophen [Tylenol .Regular Strength -] 650 mg PO Q6H PRN tablet 03/02/19 Apixaban [Eliquis -] 5 mg PO BID tablet 03/02/19 Ascorbic Acid [Vitamin C -] 500 mg PO DAILY tablet 03/02/19 Docusate Sodium [Colace -] 100 mg PO TID capsule 03/02/19 Ferrous Sulfate [Feosol] 325 mg PO DAILY ud 03/02/19 Losartan Potassium [Cozaar -] 25 mg PO DAILY tablet 03/02/19 Methimazole [Tapazole -] 5 mg PO DAILY tablet 03/02/19 Metoprolol Tartrate [Lopressor -] 50 mg PO BID tablet 03/02/19 Sennosides [Senna -] 1 tab PO BID tablet 03/02/19 Sulfamethoxazole/Trimethoprim [Bactrim Ds -] 1 tab PO BID #20 tablet 03/02/19 Review of Systems - Review of Systems Constitutional: denies: Chills, Fever Cardiovascular: denies: Chest Pain, Palpitations, Shortness of Breath Respiratory: denies: Cough, Hemoptysis, Orthopnea, PND, SOB, SOB on Exertion Gastrointestinal: denies: Abdominal Pain, Constipation, Diarrhea, Melena, Nausea , Rectal Bleeding, Vomiting Musculoskeletal: denies: Joint Pain Neurological: denies: Dizziness, Headache, Seizure, Syncope Vital Signs: Vital Signs Temperature 98.2 F 03/04/19 07:44 Pulse Rate 109 H 03/04/19 07:44 Respiratory Rate 16 03/04/19 07:44 Blood Pressure 113/76 03/04/19 07:44 O2 Sat by Pulse Oximetry (%) 97 03/03/19 23:39 Neck: Yes: Supple Respiratory: Yes: Diminished Gastrointestinal: Yes: Other (Post op) Cardiovascular: Yes: Pulse Irregular JVD: No PMI: Non-Displaced Heart Sounds: Yes: S1, S2. No: Gallop Murmur: Yes: Systolic Murmur, Grade 1 Edema: No - Other Data Labs, Other Data: CBC, BMP 03/04/19 06:00 03/04/19 06:00 INR, PTT INR 1.34 (0.83-1.09) H 03/04/19 06:00 AF with RVR Imaging - Results Chest X-ray: Report Reviewed (Small pleural effusion) Cat Scan: Report Reviewed (Abdominal CT) EKG: Report Reviewed Problem List - Problems (1) Abdominal pain Code(s): R10.9 - UNSPECIFIED ABDOMINAL PAIN Qualifiers: Abdominal location: unspecified location Qualified Code(s): R10.9 - Unspecified abdominal pain (2) Afib Code(s): I48.91 - UNSPECIFIED ATRIAL FIBRILLATION (3) Anemia Code(s): D64.9 - ANEMIA, UNSPECIFIED (4) S/P left hemicolectomy Code(s): Z90.49 - ACQUIRED ABSENCE OF OTHER SPECIFIED PARTS OF DIGESTIVE TRACT (5) Hyperthyroidism Code(s): E05.90 - THYROTOXICOSIS, UNSP WITHOUT THYROTOXIC CRISIS OR STORM (6) Acute on chronic diastolic (congestive) heart failure Code(s): I50.33 - ACUTE ON CHRONIC DIASTOLIC (CONGESTIVE) HEART FAILURE (7) Asthma Code(s): J45.909 - UNSPECIFIED ASTHMA, UNCOMPLICATED Qualifiers: Asthma severity: mild Asthma persistence: intermittent Asthma complication type: unspecified Qualified Code(s): J45.20 - Mild intermittent asthma, uncomplicated (8) CAD (coronary artery disease) Code(s): I25.10 - ATHSCL HEART DISEASE OF [place] CORONARY ARTERY W/O ANG PCTRS Qualifiers: Coronary Disease-Associated Artery/Lesion type: [place] artery [place] vs. transplanted heart: [place] heart Associated angina: without angina Qualified Code(s): I25.10 - Atherosclerotic heart disease of [place] coronary artery without angina pectoris (9) CVA (cerebral vascular accident) Code(s): I63.9 - CEREBRAL INFARCTION, UNSPECIFIED Qualifiers: CVA mechanism: unspecified Qualified Code(s): I63.9 - Cerebral infarction, unspecified (10) HTN (hypertension) Code(s): I10 - ESSENTIAL (PRIMARY) HYPERTENSION Qualifiers: Hypertension type: essential hypertension Qualified Code(s): I10 - Essential (primary) hypertension (11) Parkinson disease Code(s): G20 - PARKINSON'S DISEASE (12) Vertigo Code(s): R42 - DIZZINESS AND GIDDINESS (13) Weakness Code(s): R53.1 - WEAKNESS Assessment/Plan 1. Post hemicolectomy for colon CA 2. Persistent AF with RVR on DOAC 3. HTN 4. DM 5. Parkinson's disease 6. Hyperthyroidism 7. ? Wound infection PLAN: 1. Empiric antibiotics and wound care 2. Continue Eliquis 3. Continue Lopressor and Cozaar as tolerated 4. Continue Tapazole 5. Surgery input to be followed Further plans are to follow Johann Cowan MD
[2019-03-04] MEDS ORDERED: METOPROLOL TARTRATE 5 MG/5 ML VIAL IVPUSH PRN (08:51)
[2019-03-04] MEDS ORDERED: HEPARIN NA (PORCINE) 5,000 UNITS/ML 1ML VIAL SQ SCH ×2 (10:00)
[2019-03-04] MEDS ORDERED: PATIENT'S OWN MEDICATION (NON-FORMULARY) (Bimatoprost [Lumigan] 1 DROP) OU SCH (10:45)
--- NOTE | 2019-03-04 12:10 | CON.ID ---
Consult - History of Present Illness History of Present Illness: 83 y.o. female with PMH of DM, AFIB, HTN, HLD, CHF and Colon CA s/p Lt hemicolectomy on 02/22/19 with development of post-op wound infection. Pt was d/c' d home on 03/02/19 on Bactrim po (previous wound culture result reviewed) but returned yesterday due to persistent abdominal pain. In the ER she was noted to be afebrile, without leukocytosis, with stable vitals however had purulent discharge from lower aspect of dehiscent wound site. CT Abd revealed loop bowel herniating into dehiscence. Pt was started on IV antibiotics and surgical consultion requested. She is currently afebrile, with stable vitals but c/o abdominal pain. No other complaints. - History Source History Provided By: Patient, Family Member, Medical Record Limitations to Obtaining History: No Limitations - Past Medical History SHOE DRESSER: Yes: Parkinson's Cardio/Vascular: Yes: AFIB, CHF (diastolic), HTN, Hyperlipdemia Pulmonary: Yes: Asthma Gastrointestinal: Yes: Cancer (colon) Endocrine: Yes: Hyperthyroidism Additional Medical History: Glaucoma - Past Surgical History Past Surgical History: Yes: Hysterectomy (salpinoophrectomy) - Alcohol/Substance Use Hx Alcohol Use: No - Smoking History Smoking history: Never smoked Have you smoked in the past 12 months: No Aproximately how many cigarettes per day: 0 - Social History ADL: Family Assistance History of Recent Travel: No Home Medications - Allergies Allergies/Adverse Reactions: Allergies Allergy/AdvReac Type Severity Reaction Status Date / Time No Known Allergies Allergy Verified 03/03/19 12:50 - Home Medications Home Medications: Ambulatory Orders Bimatoprost [Lumigan] 1 drop OU DAILY 04/09/17 Brimonidine Tartrate/Timolol [Combigan 0.2%-0.5% Eye Drops] 5 ml OU BID Latanoprost 0.005% Eye Drops [Xalatan 0.005% Eye Drops -] 1 drop HS 02/14/19 Methimazole 5 mg PO TID 02/14/19 Acetaminophen [Tylenol .Regular Strength -] 650 mg PO Q6H PRN tablet 03/02/19 Apixaban [Eliquis -] 5 mg PO BID tablet 03/02/19 Ascorbic Acid [Vitamin C -] 500 mg PO DAILY tablet 03/02/19 Docusate Sodium [Colace -] 100 mg PO TID capsule 03/02/19 Ferrous Sulfate [Feosol] 325 mg PO DAILY ud 03/02/19 Losartan Potassium [Cozaar -] 25 mg PO DAILY tablet 03/02/19 Methimazole [Tapazole -] 5 mg PO DAILY tablet 03/02/19 Metoprolol Tartrate [Lopressor -] 50 mg PO BID tablet 03/02/19 Sennosides [Senna -] 1 tab PO BID tablet 03/02/19 Sulfamethoxazole/Trimethoprim [Bactrim Ds -] 1 tab PO BID #20 tablet 03/02/19 Review of Systems - Review of Systems Constitutional: reports: No Symptoms. denies: Chills, Diaphoresis, Fever, Lethargy, Loss of Appetite, Malaise, Night Sweats, Unintentional Wgt. Loss, Weakness, Other Eyes: reports: No Symptoms. denies: Blind Spots, Blurred Vision, Double Vision , Eye Pain, Floaters, Photophobia, Recent Change in Vision, Other HENT: reports: No Symptoms. denies: Difficult Swallowing, Ear Discharge, Ear Pain, Epistaxis, Gingival Bleeding, Hearing Loss, Mouth Swelling, Nasal Congestion, Ocular Prosthesis, Throat Pain, Toothache, Ringing in Ears, Other Neck: reports: No Symptoms. denies: Decreased ROM, Lumps, Pain on Movement, Stiffness, Swollen Glands, Tenderness, Other Cardiovascular: reports: No Symptoms. denies: Chest Pain, Edema, Palpitations, Shortness of Breath, Other Respiratory: reports: No Symptoms. denies: Cough, Exercise Intolerance, Hemoptysis, Orthopnea, PND, Snoring, SOB, SOB on Exertion, Wheezing, Other Gastrointestinal: reports: Abdominal Pain Genitourinary: reports: No Symptoms. denies: Burning, Discharge, Dysuria, Flank Pain, Frequency, Hematuria, Incontinence, Lesions, Menses, Pain, Testicular Mass, Testicular Pain, Testicular Swelling, Urgency, Vaginal Bleeding , Other Musculoskeletal: reports: No Symptoms. denies: Back Pain, Crepitus, Decreased ROM, Extremity Pain, Joint Pain, Joint Swelling, Muscle Pain, Muscle Cramps, Muscle Weakness, Other Integumentary: reports: No Symptoms. denies: Blister, Bruising, Change in Color , Eczema, Erythema, Incision, Lesions, Lump, Pallor, Pruritis, Rash, Wound, Other Neurological: reports: No Symptoms. denies: Change in LOC, Change in Speech, Confusion, Dizziness, Headache, Incoordination, Numbness, Parasthesia, Pre- Existing Deficit, Seizure, Syncope, Tremors, Unsteady Gait, Weakness, Other Endocrine: reports: No Symptoms. denies: Excessive Sweating, Flushing, Increased Hunger, Increased Thirst, Intolerance to Cold, Intolerance to Heat, Unexplained Weight Gain, Unexplained Weight Loss, Other Hematology/Lymphatic: reports: No Symptoms. denies: Easily Bruised, Excessive Bleeding, Swollen Glands, Other Psychiatric: reports: No Symptoms. denies: Altered Sleep Pattern, Anxiety, Depression, Hallucinations, Panic, Paranoia, Suicidal, Other Physical Exam Vital Signs: Vital Signs Temperature 98.2 F 03/04/19 07:44 Pulse Rate 109 H 03/04/19 07:44 Respiratory Rate 16 03/04/19 07:44 Blood Pressure 113/76 03/04/19 07:44 O2 Sat by Pulse Oximetry (%) 97 03/03/19 23:39 Constitutional: Yes: No Distress, Calm Eyes: Yes: Conjunctiva Clear HENT: Yes: Atraumatic Neck: Yes: Supple Cardiovascular: Yes: Pulse Irregular Respiratory: Yes: CTA Bilaterally Gastrointestinal: Yes: Normal Bowel Sounds, Soft Renal/: Yes: WNL Musculoskeletal: Yes: WNL Extremities: Yes: WNL Integumentary: Yes: WNL Wound/Incision: Yes: Other (midline abdominal wound with dehiscence in superior/ lower aspect. Purulent discharge from lower wound site. No periwound induration or significant erythema) Labs: CBC, BMP 03/04/19 06:00 03/04/19 06:00 Laboratory Tests 03/03/19 03/03/19 03/03/19 12:50 12:50 16:13 WBC 9.4 RBC 3.97 Hgb 9.6 L Hct 30.1 L MCV 75.8 L MCH 24.1 L MCHC 31.8 L RDW 29.5 H Plt Count 420 MPV 7.9 Absolute Neuts (auto) 7.2 Neutrophils % 77.3 Lymphocytes % 11.2 D Monocytes % 10.5 H Eosinophils % 0.8 Basophils % 0.2 Nucleated RBC % 0 PT with INR INR PTT (Actin FS) Sodium 138 Potassium 4.1 Chloride 101 Carbon Dioxide 33 H Anion Gap 5 L BUN 10 Creatinine 0.4 L Creat Clearance w eGFR 152.81 Random Glucose 113 H Lactic Acid Calcium 7.9 L Phosphorus 3.2 Magnesium 2.0 Total Bilirubin 0.5 AST 54 H ALT 25 Alkaline Phosphatase 81 Total Protein 5.0 L Albumin 1.8 L Prealbumin Urine Color Yellow Urine Appearance Clear Urine pH 6.0 Ur Specific [place] 1.057 H Urine Protein 1+ H Urine Glucose (UA) Negative Urine Ketones Negative Urine Blood Negative Urine Nitrite Negative Urine Bilirubin Negative Urine Urobilinogen 1.0 Ur Leukocyte Esterase Negative Urine WBC (Auto) 1 Urine RBC (Auto) 2 Urine Casts (Auto) 4 U Epithel Cells (Auto) 7.3 Urine Bacteria (Auto) 0.2 Blood Type Antibody Screen 03/03/19 03/03/19 03/03/19 20:15 20:15 20:15 WBC RBC Hgb Hct MCV MCH MCHC RDW Plt Count MPV Absolute Neuts (auto) Neutrophils % Lymphocytes % Monocytes % Eosinophils % Basophils % Nucleated RBC % PT with INR INR PTT (Actin FS) Cancelled Sodium Potassium Chloride Carbon Dioxide Anion Gap BUN Creatinine Creat Clearance w eGFR Random Glucose Lactic Acid 1.8 Calcium Phosphorus Magnesium Total Bilirubin AST ALT Alkaline Phosphatase Total Protein Albumin Prealbumin 5.6 L Urine Color Urine Appearance Urine pH Ur Specific [place] Urine Protein Urine Glucose (UA) Urine Ketones Urine Blood Urine Nitrite Urine Bilirubin Urine Urobilinogen Ur Leukocyte Esterase Urine WBC (Auto) Urine RBC (Auto) Urine Casts (Auto) U Epithel Cells (Auto) Urine Bacteria (Auto) Blood Type Antibody Screen 03/03/19 03/03/19 03/04/19 20:15 20:15 06:00 WBC 9.4 RBC 3.84 Hgb 9.4 L Hct 29.2 L MCV 76.0 L MCH 24.5 L MCHC 32.2 RDW 30.4 H Plt Count 402 MPV 7.9 Absolute Neuts (auto) 6.7 Neutrophils % 71.7 Lymphocytes % 14.7 D Monocytes % 11.0 H Eosinophils % 1.8 D Basophils % 0.8 D Nucleated RBC % 0 PT with INR 16.50 H INR 1.39 H PTT (Actin FS) 33.6 Sodium Potassium Chloride Carbon Dioxide Anion Gap BUN Creatinine Creat Clearance w eGFR Random Glucose Lactic Acid Calcium Phosphorus Magnesium Total Bilirubin AST ALT Alkaline Phosphatase Total Protein Albumin Prealbumin Urine Color Urine Appearance Urine pH Ur Specific [place] Urine Protein Urine Glucose (UA) Urine Ketones Urine Blood Urine Nitrite Urine Bilirubin Urine Urobilinogen Ur Leukocyte Esterase Urine WBC (Auto) Urine RBC (Auto) Urine Casts (Auto) U Epithel Cells (Auto) Urine Bacteria (Auto) Blood Type O POSITIVE Antibody Screen Negative 03/04/19 03/04/19 06:00 06:00 WBC RBC Hgb Hct MCV MCH MCHC RDW Plt Count MPV Absolute Neuts (auto) Neutrophils % Lymphocytes % Monocytes % Eosinophils % Basophils % Nucleated RBC % PT with INR 15.90 H INR 1.34 H PTT (Actin FS) Sodium 142 Potassium 3.4 L Chloride 104 Carbon Dioxide 32 Anion Gap 6 L BUN 7 Creatinine 0.4 L Creat Clearance w eGFR 152.81 Random Glucose 95 Lactic Acid Calcium 7.4 L Phosphorus Magnesium Total Bilirubin AST ALT Alkaline Phosphatase Total Protein Albumin Prealbumin Urine Color Urine Appearance Urine pH Ur Specific [place] Urine Protein Urine Glucose (UA) Urine Ketones Urine Blood Urine Nitrite Urine Bilirubin Urine Urobilinogen Ur Leukocyte Esterase Urine WBC (Auto) Urine RBC (Auto) Urine Casts (Auto) U Epithel Cells (Auto) Urine Bacteria (Auto) Blood Type Antibody Screen Imaging - Results Cat Scan: Report Reviewed Problem List - Problems (1) Abdominal pain Code(s): R10.9 - UNSPECIFIED ABDOMINAL PAIN Qualifiers: Abdominal location: unspecified location Qualified Code(s): R10.9 - Unspecified abdominal pain (2) Obesity (BMI 30-39.9) Code(s): E66.9 - OBESITY, UNSPECIFIED (3) S/P left hemicolectomy Code(s): Z90.49 - ACQUIRED ABSENCE OF OTHER SPECIFIED PARTS OF DIGESTIVE TRACT (4) Colonic mass Code(s): K63.9 - DISEASE OF INTESTINE, UNSPECIFIED (5) Hyperthyroidism Code(s): E05.90 - THYROTOXICOSIS, UNSP WITHOUT THYROTOXIC CRISIS OR STORM (6) New onset atrial fibrillation Code(s): I48.91 - UNSPECIFIED ATRIAL FIBRILLATION (7) Acute on chronic diastolic (congestive) heart failure Code(s): I50.33 - ACUTE ON CHRONIC DIASTOLIC (CONGESTIVE) HEART FAILURE (8) Asthma Code(s): J45.909 - UNSPECIFIED ASTHMA, UNCOMPLICATED Qualifiers: Asthma severity: mild Asthma persistence: intermittent Asthma complication type: unspecified Qualified Code(s): J45.20 - Mild intermittent asthma, uncomplicated (9) CAD (coronary artery disease) Code(s): I25.10 - ATHSCL HEART DISEASE OF [place] CORONARY ARTERY W/O ANG PCTRS Qualifiers: Coronary Disease-Associated Artery/Lesion type: [place] artery [place] vs. transplanted heart: [place] heart Associated angina: without angina Qualified Code(s): I25.10 - Atherosclerotic heart disease of [place] coronary artery without angina pectoris (10) Diabetes mellitus Code(s): E11.9 - TYPE 2 DIABETES MELLITUS WITHOUT COMPLICATIONS Qualifiers: Diabetes mellitus type: type 2 Diabetes mellitus fci insulin use: without terminal system operator use Diabetes mellitus complication status: without complication Qualified Code(s): E11.9 - Type 2 diabetes mellitus without complications (11) HTN (hypertension) Code(s): I10 - ESSENTIAL (PRIMARY) HYPERTENSION Qualifiers: Hypertension type: essential hypertension Qualified Code(s): I10 - Essential (primary) hypertension (12) Parkinson disease Code(s): G20 - PARKINSON'S DISEASE Assessment/Plan 83 y.o. female with PMH of DM, AFIB, HTN, HLD, CHF, hyperthyroidism, and Colon CA s/p Lt hemicolectomy on 02/22/19 with post-op wound infection discharged home on 03/02/19 on po antibiotics presenting with abd pain, purulent discharge from wound dehiscence site. CT Abd with bowel herniation into dehiscence site. Post-op Wound Infection Bowel herniation into wound s/p hemicolectomy for Colon CA DM AFIB CAD CHF HTN HLD Hyperthyroidism -- medical records from recent admission reviewed, labs/culture results noted -- started empirically on Zosyn/Vancomycin -- collect wound culture -- f/u Blood culture results -- plan is for OR -- pt is afebrile/without leukocytosis with stable vitals continue monitor Will follow Thank you
[2019-03-04] MEDS ORDERED: PT OWN MED DRAWER 7, Y5N ONE ×3 (14:30→22:34)
[2019-03-04] MEDS: BRIMONIDINE TARTRATE 0.2% OPHTHALMIC 5 ML BOTTLE OU SCH ×2 (15:27→22:35)
[2019-03-04] MEDS: VANCOMYCIN 1 GM PREMIX - 1 GM/200 ML BAG IVPB SCH (15:27)
--- NOTE | 2019-03-04 15:55 | PN ---
Progress Note, Physician Chief Complaint: Abdominal pain History of Present Illness: NAD seen by Surgery s/p hemicolectomy - Current Medication List Current Medications: Active Medications Brimonidine Tartrate (Alphagan 0.2% -) 1 drop OU BID [facility] Last Admin: 03/04/19 15:27 Dose: 1 drop Heparin Sodium (Porcine) (Heparin -) 5,000 unit SQ BID [facility] Last Admin: 03/04/19 10:00 Dose: 5,000 unit Dextrose/Sodium Chloride (D5-1/2ns -) 1,000 mls @ 30 mls/hr IV ASDIR [facility] Last Admin: 03/04/19 08:35 Dose: 30 mls/hr Piperacillin Sod/Tazobactam (Sod 3.375 gm/ Dextrose) 50 mls @ 100 mls/hr IVPB Q8H-IV [facility]; Protocol Vancomycin HCl (Vancomycin 1 Gm Premix -) 1 gm in 200 mls @ 200 mls/hr IVPB BID @0100,1300 [facility]; Protocol Last Admin: 03/04/19 15:27 Dose: 200 mls/hr Latanoprost (Xalatan 0.005% Eye Drops -) 1 drop OU [facility] Metoprolol Tartrate (Lopressor Injection -) 5 mg IVPUSH Q4H PRN PRN Reason: HYPERTENSION Morphine Sulfate (Morphine Sulfate) 4 mg IVPUSH Q6H PRN PRN Reason: PAIN LEVEL 7 - 10 Timolol Maleate (Timoptic 0.5%) 1 drop OU BID [facility] - Objective Vital Signs: Vital Signs Temperature 98.2 F 03/04/19 07:44 Pulse Rate 109 H 03/04/19 07:44 Respiratory Rate 22 H 03/04/19 09:00 Blood Pressure 113/76 03/04/19 07:44 O2 Sat by Pulse Oximetry (%) 100 03/04/19 09:00 Constitutional: Yes: Well Nourished, No Distress, Calm Cardiovascular: Yes: Regular Rate and Rhythm Respiratory: Yes: Regular Gastrointestinal: Yes: Tenderness (diffuse/incisional) Musculoskeletal: Yes: Muscle Weakness Extremities: Yes: WNL Edema: No Peripheral Pulses WNL: Yes Neurological: Yes: Alert, Oriented Psychiatric: Yes: Alert, Oriented Labs: CBC, BMP 03/04/19 06:00 03/04/19 06:00 INR, PTT INR 1.34 (0.83-1.09) H 03/04/19 06:00 Problem List - Problems (1) Afib Assessment/Plan: -restart eliquis -rate controlled -Tele monitor -Seen by Cardiology Code(s): I48.91 - UNSPECIFIED ATRIAL FIBRILLATION (2) Abdominal pain Assessment/Plan: -Seen by surgery -wound care -CT Abd revealed loop bowel herniating into dehiscence -Pain management as per pain scale with acetaminophen, tramadol and oxycodone -No surgical intervention as per surgery at this time Code(s): R10.9 - UNSPECIFIED ABDOMINAL PAIN Qualifiers: Abdominal location: unspecified location Qualified Code(s): R10.9 - Unspecified abdominal pain (3) Obesity (BMI 30-39.9) Code(s): E66.9 - OBESITY, UNSPECIFIED (4) S/P left hemicolectomy Assessment/Plan: -Seen by surgery -wound care -CT Abd revealed loop bowel herniating into dehiscence -Pain management as per pain scale with acetaminophen, tramadol and oxycodone -No surgical intervention as per surgery at this time -high protein diet Code(s): Z90.49 - ACQUIRED ABSENCE OF OTHER SPECIFIED PARTS OF DIGESTIVE TRACT (5) Hypokalemia Assessment/Plan: -2/2 NPO status -replenish with KCl 40 meq once -monitor trend Code(s): E87.6 - HYPOKALEMIA (6) Anemia Assessment/Plan: -Chronic -on Ferrous sulfate daily -monitor trend Code(s): D64.9 - ANEMIA, UNSPECIFIED Assessment/Plan see problem list Physical therapy
[2019-03-04] MEDS ORDERED: POTASSIUM CHLORIDE TABS 10 MEQ TABLET.ER (FP) PO ONE (16:45)
[2019-03-04] MEDS: POTASSIUM CHLORIDE TABS 20 MEQ TABLET.ER (FP) PO ONE ×2 (16:49→16:53)
[2019-03-04] MEDS: traMADol HCL 50 MG TABLET PO PRN (18:41)
[2019-03-04] MEDS: PIPERACILLIN/TAZOB 3.375 GM 3.375 GM in DEXTROSE 5%-WATER - 50 ML IVPB SCH (18:42)
[2019-03-04] MEDS ORDERED: SULFAMETHOXAZOLE/TRIMETHOPRIM 800MG/160MG D.S. TABLET PO SCH (22:00)
[2019-03-04] MEDS: METHIMAZOLE 5 MG TABLET (FP) PO SCH (22:31)
[2019-03-04] MEDS: DOCUSATE SODIUM 100 MG CAPSULE (FP) PO SCH (22:31)
[2019-03-04] MEDS: METOPROLOL TARTRATE 50 MG TABLET (FP) PO SCH (22:31)
[2019-03-04] MEDS: SENNOSIDES 8.6MG TABLET (FP) PO SCH (22:31)
[2019-03-04] MEDS: APIXABAN 5 MG TABLET PO SCH (22:31)
[2019-03-04] MEDS: TIMOLOL 0.5% OPHTHALMIC SOL 5 ML BOTTLE OU SCH (22:35)
[2019-03-04] MEDS: LATANOPROST 0.005% OPHTH SOLN 2.5ML BOTTLE OU SCH (22:36)
[2019-03-05] MEDS: traMADol HCL 50 MG TABLET PO PRN ×3 (00:01→20:27)
[2019-03-05] MEDS: VANCOMYCIN 1 GM PREMIX - 1 GM/200 ML BAG IVPB SCH ×2 (00:02→13:34)
[2019-03-05] MEDS ORDERED: DEXTROSE 5%-WATER - 50 ML IVPB ONE ×3 (01:34→17:02)
[2019-03-05] MEDS ORDERED: PIPERACILLIN/TAZOBACTAM 3.375 GM VIAL IVPB ONE ×3 (01:34→17:02)
[2019-03-05] MEDS: PIPERACILLIN/TAZOB 3.375 GM 3.375 GM in DEXTROSE 5%-WATER - 50 ML IVPB SCH ×3 (01:35→17:29)
[2019-03-05] MEDS: oxyCODONE HCL 5 MG TABLET PO PRN ×3 (01:36→22:28)
[2019-03-05] MEDS: DOCUSATE SODIUM 100 MG CAPSULE (FP) PO SCH ×3 (05:04→21:35)
[2019-03-05] MEDS: METHIMAZOLE 5 MG TABLET (FP) PO SCH ×3 (05:05→21:34)
[2019-03-05 07:04] LABS: ALBUMIN 1.8 g/dl (3.4-5.0); ALK PHOS 79 U/L (45-117); ANION GAP 5 MMOL/L (8-16); BILIRUBIN,TOTAL 0.5 mg/dL (0.2-1); BLOOD UREA NITROGEN 6 mg/dL (7-18); CALCIUM 7.7 mg/dL (8.5-10.1); CHLORIDE 105 mmol/L (98-107); CO2 31 mmol/L (21-32); CREATININE 0.6 mg/dL (0.55-1.3); GLUCOSE,RANDOM 127 mg/dL (74-106); POTASSIUM 4.7 mmol/L (3.5-5.1); SGOT/AST 39 U/L (15-37); SGPT/ALT 22 U/L (13-61); SODIUM 141 mmol/L (136-145); TOT PROT 4.8 g/dl (6.4-8.2)
[2019-03-05] MEDS: ACETAMINOPHEN 325 MG TABLET (FP) PO PRN (07:42)
[2019-03-05 07:47] LABS: BASO % 0.7 % (0-2.0); HEMATOCRIT 28.4 % (32.4-45.2); LYMPH % 16.8 % (8-40); MCH 24.4 pg (25.7-33.7); MCHC 31.8 g/dl (32.0-36.0); MEAN CELL VOLUME 76.8 fl (80-96); MEAN PLT VOLUME 7.9 fl (7.5-11.1); MONO % 13.6 % (3.8-10.2); NEUT % 64.9 % (42.8-82.8); PLATELET COUNT 414 K/MM3 (134-434); RDW 30.1 % (11.6-15.6); WHITE BLOOD COUNT 7.5 K/mm3 (4.0-10.0)
[2019-03-05] MEDS: FERROUS SO4 325 MG TABLET (FP) PO SCH (09:26)
[2019-03-05] MEDS: SENNOSIDES 8.6MG TABLET (FP) PO SCH ×2 (09:27→21:34)
[2019-03-05] MEDS: LOSARTAN POTASSIUM 25 MG TABLET PO SCH (09:27)
[2019-03-05] MEDS: METOPROLOL TARTRATE 50 MG TABLET (FP) PO SCH ×2 (09:27→21:34)
[2019-03-05] MEDS: APIXABAN 5 MG TABLET PO SCH ×2 (09:27→21:34)
[2019-03-05] MEDS: BRIMONIDINE TARTRATE 0.2% OPHTHALMIC 5 ML BOTTLE OU SCH ×2 (09:27→21:35)
[2019-03-05] MEDS: ASCORBIC ACID 500 MG TABLET (FP) PO SCH (09:27)
--- NOTE | 2019-03-05 09:27 | PN ---
Progress Note, Physician Chief Complaint: Not in distress History of Present Illness: Patient was seen and examined. Awake. Chart was reviewed Denies chest pain, SOB or palpitations - Current Medication List Current Medications: Active Medications Acetaminophen (Tylenol -) 650 mg PO Q4H PRN PRN Reason: PAIN OR FEVER Last Admin: 03/05/19 07:42 Dose: 650 mg Apixaban (Eliquis -) 5 mg PO BID [facility] Last Admin: 03/04/19 22:31 Dose: 5 mg Ascorbic Acid (Vitamin C -) 500 mg PO DAILY [facility] Brimonidine Tartrate (Alphagan 0.2% -) 1 drop OU BID [facility] Last Admin: 03/04/19 22:35 Dose: 1 drop Docusate Sodium (Colace -) 100 mg PO TID [facility] Last Admin: 03/05/19 05:04 Dose: 100 mg Ferrous Sulfate (Feosol -) 325 mg PO DAILY [facility] Piperacillin Sod/Tazobactam (Sod 3.375 gm/ Dextrose) 50 mls @ 100 mls/hr IVPB Q8H-IV [facility]; Protocol Last Admin: 03/05/19 01:35 Dose: 100 mls/hr Vancomycin HCl (Vancomycin 1 Gm Premix -) 1 gm in 200 mls @ 200 mls/hr IVPB BID @0100,1300 [facility]; Protocol Last Admin: 03/05/19 00:02 Dose: 200 mls/hr Latanoprost (Xalatan 0.005% Eye Drops -) 1 drop OU [facility] Last Admin: 03/04/19 22:36 Dose: 1 drop Losartan Potassium (Cozaar -) 25 mg PO DAILY [facility] Methimazole (Tapazole -) 5 mg PO TID [facility] Last Admin: 03/05/19 05:05 Dose: 5 mg Metoprolol Tartrate (Lopressor -) 50 mg PO BID [facility] Last Admin: 03/04/19 22:31 Dose: 50 mg Oxycodone HCl (Roxicodone -) 5 mg PO Q6H PRN PRN Reason: PAIN LEVEL 7 - 10 Last Admin: 03/05/19 07:40 Dose: 5 mg Senna (Senna -) 1 tab PO BID [facility] Last Admin: 03/04/19 22:31 Dose: 1 tab Timolol Maleate (Timoptic 0.5%) 1 drop OU BID [facility] Last Admin: 03/04/19 22:35 Dose: 1 drop Tramadol HCl (Ultram -) 50 mg PO Q6H PRN PRN Reason: PAIN LEVEL 4 - 6 Last Admin: 03/05/19 00:01 Dose: 50 mg - Objective Vital Signs: Vital Signs Temperature 98.4 F 03/05/19 05:00 Pulse Rate 108 H 03/05/19 05:00 Respiratory Rate 20 03/05/19 05:00 Blood Pressure 116/62 03/05/19 05:00 O2 Sat by Pulse Oximetry (%) 96 03/05/19 05:00 HENT: Yes: Other Neck: Yes: Supple Cardiovascular: Yes: Tachycardia, Pulse Irregular, S1, S2 Respiratory: Yes: CTA Bilaterally, Diminished Gastrointestinal: Yes: Normal Bowel Sounds, Soft. No: Tenderness Edema: No Additional Findings/Remarks: - Review of Systems Constitutional: denies: Chills, Fever Cardiovascular: denies: Chest Pain. denies: Palpitations, Shortness of Breath Respiratory: denies Cough. denies: Hemoptysis, Orthopnea, PND, SOB, SOB on Exertion Gastrointestinal: denies: Abdominal Pain, Constipation, Diarrhea, Melena, Nausea , Rectal Bleeding, Vomiting Neurological: denies: Dizziness, Headache, Seizure, Syncope Labs: CBC, BMP 03/05/19 05:30 03/05/19 05:30 INR, PTT INR 1.34 (0.83-1.09) H 03/04/19 06:00 Problem List - Problems (1) Abdominal pain Code(s): R10.9 - UNSPECIFIED ABDOMINAL PAIN Qualifiers: Abdominal location: unspecified location Qualified Code(s): R10.9 - Unspecified abdominal pain (2) Afib Code(s): I48.91 - UNSPECIFIED ATRIAL FIBRILLATION (3) Anemia Code(s): D64.9 - ANEMIA, UNSPECIFIED (4) S/P left hemicolectomy Code(s): Z90.49 - ACQUIRED ABSENCE OF OTHER SPECIFIED PARTS OF DIGESTIVE TRACT (5) Colonic mass Code(s): K63.9 - DISEASE OF INTESTINE, UNSPECIFIED (6) Hyperthyroidism Code(s): E05.90 - THYROTOXICOSIS, UNSP WITHOUT THYROTOXIC CRISIS OR STORM (7) Acute on chronic diastolic (congestive) heart failure Code(s): I50.33 - ACUTE ON CHRONIC DIASTOLIC (CONGESTIVE) HEART FAILURE (8) Asthma Code(s): J45.909 - UNSPECIFIED ASTHMA, UNCOMPLICATED Qualifiers: Asthma severity: mild Asthma persistence: intermittent Asthma complication type: unspecified Qualified Code(s): J45.20 - Mild intermittent asthma, uncomplicated (9) CAD (coronary artery disease) Code(s): I25.10 - ATHSCL HEART DISEASE OF [place] CORONARY ARTERY W/O ANG PCTRS Qualifiers: Coronary Disease-Associated Artery/Lesion type: [place] artery [place] vs. transplanted heart: [place] heart Associated angina: without angina Qualified Code(s): I25.10 - Atherosclerotic heart disease of [place] coronary artery without angina pectoris (10) CVA (cerebral vascular accident) Code(s): I63.9 - CEREBRAL INFARCTION, UNSPECIFIED Qualifiers: CVA mechanism: unspecified Qualified Code(s): I63.9 - Cerebral infarction, unspecified (11) HTN (hypertension) Code(s): I10 - ESSENTIAL (PRIMARY) HYPERTENSION Qualifiers: Hypertension type: essential hypertension Qualified Code(s): I10 - Essential (primary) hypertension (12) Parkinson disease Code(s): G20 - PARKINSON'S DISEASE (13) Weakness Code(s): R53.1 - WEAKNESS Assessment/Plan 1. Post hemicolectomy for colon CA 2. Persistent AF with RVR on DOAC 3. HTN 4. DM 5. Parkinson's disease 6. Hyperthyroidism 7. ? Wound infection PLAN: 1. Empiric antibiotics 2. Continue Eliquis 3. Continue Lopressor and Cozaar as tolerated 4. Continue Tapazole 5. Surgery input noted. Continue wound care and supportive care Further plans are to follow Johann Cowan MD
[2019-03-05] MEDS: TIMOLOL 0.5% OPHTHALMIC SOL 5 ML BOTTLE OU SCH ×2 (09:28→21:35)
[2019-03-05] MEDS ORDERED: PT OWN MED DRAWER 7, Y5N ONE ×2 (09:52→13:34)
[2019-03-05] MEDS ORDERED: PIPERACILLIN/TAZOB 3.375 GM 3.375 GM in DEXTROSE 5%-WATER - 50 ML IVPB SCH (10:00)
--- NOTE | 2019-03-05 10:36 | EKG ---
Test Reason : Blood Pressure : / mmHG Vent. Rate : 115 BPM Atrial Rate : 098 BPM P-R Int : 000 ms QRS Dur : 148 ms QT Int : 344 ms P-R-T Axes : 000 -35 -13 degrees QTc Int : 475 ms ATRIAL FIBRILLATION WITH RAPID VENTRICULAR RESPONSE LEFT AXIS DEVIATION RIGHT BUNDLE BRANCH BLOCK ABNORMAL ECG WHEN COMPARED WITH ECG OF 25-FEB-2019 10:55, NO SIGNIFICANT CHANGE WAS FOUND Confirmed by THIEN GRAMAJO, [place] ([id number]) on 03/05/2019 10:35:33 AM Referred By: Confirmed By:[place] NEUMANN MD
--- NOTE | 2019-03-05 13:02 | PN ---
Progress Note, Physician History of Present Illness: stable doing well family in room - Current Medication List Current Medications: Active Medications Acetaminophen (Tylenol -) 650 mg PO Q4H PRN PRN Reason: PAIN OR FEVER Last Admin: 03/05/19 07:42 Dose: 650 mg Apixaban (Eliquis -) 5 mg PO BID [facility] Last Admin: 03/05/19 09:27 Dose: 5 mg Ascorbic Acid (Vitamin C -) 500 mg PO DAILY [facility] Last Admin: 03/05/19 09:27 Dose: 500 mg Brimonidine Tartrate (Alphagan 0.2% -) 1 drop OU BID [facility] Last Admin: 03/05/19 09:27 Dose: 1 drop Docusate Sodium (Colace -) 100 mg PO TID [facility] Last Admin: 03/05/19 05:04 Dose: 100 mg Ferrous Sulfate (Feosol -) 325 mg PO DAILY [facility] Last Admin: 03/05/19 09:26 Dose: 325 mg Piperacillin Sod/Tazobactam (Sod 3.375 gm/ Dextrose) 50 mls @ 100 mls/hr IVPB Q8H-IV [facility]; Protocol Last Admin: 03/05/19 09:27 Dose: 100 mls/hr Vancomycin HCl (Vancomycin 1 Gm Premix -) 1 gm in 200 mls @ 200 mls/hr IVPB BID @0100,1300 [facility]; Protocol Last Admin: 03/05/19 00:02 Dose: 200 mls/hr Latanoprost (Xalatan 0.005% Eye Drops -) 1 drop OU HS [facility] Last Admin: 03/04/19 22:36 Dose: 1 drop Losartan Potassium (Cozaar -) 25 mg PO DAILY [facility] Last Admin: 03/05/19 09:27 Dose: 25 mg Methimazole (Tapazole -) 5 mg PO TID [facility] Last Admin: 03/05/19 05:05 Dose: 5 mg Metoprolol Tartrate (Lopressor -) 50 mg PO BID [facility] Last Admin: 03/05/19 09:27 Dose: 50 mg Oxycodone HCl (Roxicodone -) 5 mg PO Q6H PRN PRN Reason: PAIN LEVEL 7 - 10 Last Admin: 03/05/19 07:40 Dose: 5 mg Senna (Senna -) 1 tab PO BID [facility] Last Admin: 03/05/19 09:27 Dose: 1 tab Timolol Maleate (Timoptic 0.5%) 1 drop OU BID [facility] Last Admin: 03/05/19 09:28 Dose: 1 drop Tramadol HCl (Ultram -) 50 mg PO Q6H PRN PRN Reason: PAIN LEVEL 4 - 6 Last Admin: 03/05/19 09:25 Dose: 50 mg - Objective Vital Signs: Vital Signs Temperature 98.2 F 03/05/19 09:00 Pulse Rate 102 H 03/05/19 09:00 Respiratory Rate 20 03/05/19 09:00 Blood Pressure 118/68 03/05/19 09:00 O2 Sat by Pulse Oximetry (%) 96 03/05/19 05:00 Constitutional: Yes: No Distress, Calm, Obese Cardiovascular: Yes: Regular Rate and Rhythm Respiratory: Yes: Regular, CTA Bilaterally Gastrointestinal: Yes: Normal Bowel Sounds, Soft Musculoskeletal: Yes: WNL Extremities: Yes: WNL Wound/Incision: Yes: Dressing Dry and Intact Neurological: Yes: Alert, Oriented Psychiatric: Yes: Alert, Oriented Labs: CBC, BMP 03/05/19 05:30 03/05/19 05:30 INR, PTT INR 1.34 (0.83-1.09) H 03/04/19 06:00 Assessment/Plan Problem List - Problems (1) Abdominal pain Code(s): R10.9 - UNSPECIFIED ABDOMINAL PAIN Qualifiers: Abdominal location: unspecified location Qualified Code(s): R10.9 - Unspecified abdominal pain (2) Obesity (BMI 30-39.9) Code(s): E66.9 - OBESITY, UNSPECIFIED (3) S/P left hemicolectomy Code(s): Z90.49 - ACQUIRED ABSENCE OF OTHER SPECIFIED PARTS OF DIGESTIVE TRACT (4) Colonic mass Code(s): K63.9 - DISEASE OF INTESTINE, UNSPECIFIED (5) Hyperthyroidism Code(s): E05.90 - THYROTOXICOSIS, UNSP WITHOUT THYROTOXIC CRISIS OR STORM (6) New onset atrial fibrillation Code(s): I48.91 - UNSPECIFIED ATRIAL FIBRILLATION (7) Acute on chronic diastolic (congestive) heart failure Code(s): I50.33 - ACUTE ON CHRONIC DIASTOLIC (CONGESTIVE) HEART FAILURE (8) Asthma Code(s): J45.909 - UNSPECIFIED ASTHMA, UNCOMPLICATED Qualifiers: Asthma severity: mild Asthma persistence: intermittent Asthma complication type: unspecified Qualified Code(s): J45.20 - Mild intermittent asthma, uncomplicated (9) CAD (coronary artery disease) Code(s): I25.10 - ATHSCL HEART DISEASE OF [place] CORONARY ARTERY W/O ANG PCTRS Qualifiers: Coronary Disease-Associated Artery/Lesion type: [place] artery [place] vs. transplanted heart: [place] heart Associated angina: without angina Qualified Code(s): I25.10 - Atherosclerotic heart disease of [place] coronary artery without angina pectoris (10) Diabetes mellitus Code(s): E11.9 - TYPE 2 DIABETES MELLITUS WITHOUT COMPLICATIONS Qualifiers: Diabetes mellitus type: type 2 Diabetes mellitus termite control representative insulin use: without termite control representative use Diabetes mellitus complication status: without complication Qualified Code(s): E11.9 - Type 2 diabetes mellitus without complications (11) HTN (hypertension) Code(s): I10 - ESSENTIAL (PRIMARY) HYPERTENSION Qualifiers: Hypertension type: essential hypertension Qualified Code(s): I10 - Essential (primary) hypertension (12) Parkinson disease Code(s): G20 - PARKINSON'S DISEASE Assessment/Plan 83 y.o. female with PMH of DM, AFIB, HTN, HLD, CHF, hyperthyroidism, and Colon CA s/p Lt hemicolectomy on 02/22/19 with post-op wound infection discharged home on 03/02/19 on po antibiotics presenting with abd pain, purulent discharge from wound dehiscence site. CT Abd with bowel herniation into dehiscence site. Post-op Wound Infection Bowel herniation into wound s/p hemicolectomy for Colon CA DM AFIB CAD CHF HTN HLD Hyperthyroidism plan continue current abx will switch to oral hopefully by tomorrow rest as per the team patient stable
--- NOTE | 2019-03-05 14:11 | PN ---
Progress Note, Physician Chief Complaint: patient seen and examined in bed no distress on iv abx wound open and seen - Current Medication List Current Medications: Active Medications Acetaminophen (Tylenol -) 650 mg PO Q4H PRN PRN Reason: PAIN OR FEVER Last Admin: 03/05/19 07:42 Dose: 650 mg Amino Acids (Prosource No Carb Liquid Pkt) 30 ml PO BID@0800,1730 [facility] Apixaban (Eliquis -) 5 mg PO BID [facility] Last Admin: 03/05/19 09:27 Dose: 5 mg Ascorbic Acid (Vitamin C -) 500 mg PO DAILY [facility] Last Admin: 03/05/19 09:27 Dose: 500 mg Brimonidine Tartrate (Alphagan 0.2% -) 1 drop OU BID [facility] Last Admin: 03/05/19 09:27 Dose: 1 drop Docusate Sodium (Colace -) 100 mg PO TID [facility] Last Admin: 03/05/19 13:33 Dose: 100 mg Ferrous Sulfate (Feosol -) 325 mg PO DAILY [facility] Last Admin: 03/05/19 09:26 Dose: 325 mg Piperacillin Sod/Tazobactam (Sod 3.375 gm/ Dextrose) 50 mls @ 100 mls/hr IVPB Q8H-IV [facility]; Protocol Last Admin: 03/05/19 09:27 Dose: 100 mls/hr Vancomycin HCl (Vancomycin 1 Gm Premix -) 1 gm in 200 mls @ 200 mls/hr IVPB BID @0100,1300 [facility]; Protocol Last Admin: 03/05/19 13:34 Dose: 200 mls/hr Latanoprost (Xalatan 0.005% Eye Drops -) 1 drop OU HS [facility] Last Admin: 03/04/19 22:36 Dose: 1 drop Losartan Potassium (Cozaar -) 25 mg PO DAILY [facility] Last Admin: 03/05/19 09:27 Dose: 25 mg Methimazole (Tapazole -) 5 mg PO TID [facility] Last Admin: 03/05/19 13:36 Dose: 5 mg Metoprolol Tartrate (Lopressor -) 50 mg PO BID [facility] Last Admin: 03/05/19 09:27 Dose: 50 mg Oxycodone HCl (Roxicodone -) 5 mg PO Q6H PRN PRN Reason: PAIN LEVEL 7 - 10 Last Admin: 03/05/19 07:40 Dose: 5 mg Senna (Senna -) 1 tab PO BID [facility] Last Admin: 03/05/19 09:27 Dose: 1 tab Timolol Maleate (Timoptic 0.5%) 1 drop OU BID [facility] Last Admin: 03/05/19 09:28 Dose: 1 drop Tramadol HCl (Ultram -) 50 mg PO Q6H PRN PRN Reason: PAIN LEVEL 4 - 6 Last Admin: 03/05/19 09:25 Dose: 50 mg Zinc Sulfate (Orazinc -) 220 mg PO DAILY [facility] - Objective Vital Signs: Vital Signs Temperature 98.2 F 03/05/19 09:00 Pulse Rate 102 H 03/05/19 09:00 Respiratory Rate 20 03/05/19 09:00 Blood Pressure 118/68 03/05/19 09:00 O2 Sat by Pulse Oximetry (%) 96 03/05/19 05:00 Constitutional: Yes: Calm Cardiovascular: Yes: Regular Rate and Rhythm, S1, S2 Respiratory: Yes: CTA Bilaterally Gastrointestinal: Yes: Normal Bowel Sounds, Soft, Other (midline abdominal wound packing serosaginous drainiage) Edema: No Neurological: Yes: Alert, Oriented Labs: CBC, BMP 03/05/19 05:30 03/05/19 05:30 INR, PTT INR 1.34 (0.83-1.09) H 03/04/19 06:00 Assessment/Plan incisonal hernia with loop of bowel Afib on eliquis hyperthyroid on tapazole abdominal wound surery on board high proetin diet prost at bid, zinc daily for healing iv abx per ID
[2019-03-05] MEDS: AMINO ACIDS/PROTEIN HYDROLYS 30 ML LIQUID.PKT PO SCH (17:30)
[2019-03-05] MEDS: LATANOPROST 0.005% OPHTH SOLN 2.5ML BOTTLE OU SCH (21:35)
[2019-03-05] MEDS: MELATONIN 1 MG TABLET PO SCH (21:35)
[2019-03-06] MEDS ORDERED: PT OWN MED DRAWER 7, Y5N ONE ×3 (00:14→09:13)
[2019-03-06] MEDS ORDERED: DEXTROSE 5%-WATER - 50 ML IVPB ONE ×3 (00:18→18:00)
[2019-03-06] MEDS ORDERED: PIPERACILLIN/TAZOBACTAM 3.375 GM VIAL IVPB ONE ×3 (00:18→18:00)
[2019-03-06] MEDS: VANCOMYCIN 1 GM PREMIX - 1 GM/200 ML BAG IVPB SCH ×2 (00:24→13:38)
[2019-03-06] MEDS: PIPERACILLIN/TAZOB 3.375 GM 3.375 GM in DEXTROSE 5%-WATER - 50 ML IVPB SCH ×3 (02:55→17:38)
[2019-03-06] MEDS: DOCUSATE SODIUM 100 MG CAPSULE (FP) PO SCH ×3 (05:27→21:14)
[2019-03-06] MEDS: ACETAMINOPHEN 325 MG TABLET (FP) PO PRN (05:29)
[2019-03-06] MEDS: METHIMAZOLE 5 MG TABLET (FP) PO SCH ×3 (05:29→21:15)
[2019-03-06] MEDS: oxyCODONE HCL 5 MG TABLET PO PRN (08:25)
[2019-03-06] MEDS: AMINO ACIDS/PROTEIN HYDROLYS 30 ML LIQUID.PKT PO SCH ×2 (08:25→17:38)
[2019-03-06] MEDS: APIXABAN 5 MG TABLET PO SCH ×2 (09:02→21:16)
[2019-03-06] MEDS: METOPROLOL TARTRATE 50 MG TABLET (FP) PO SCH ×2 (09:02→21:16)
[2019-03-06] MEDS: FERROUS SO4 325 MG TABLET (FP) PO SCH (09:02)
[2019-03-06] MEDS: SENNOSIDES 8.6MG TABLET (FP) PO SCH ×2 (09:02→21:14)
[2019-03-06] MEDS: ASCORBIC ACID 500 MG TABLET (FP) PO SCH (09:02)
[2019-03-06] MEDS: LOSARTAN POTASSIUM 25 MG TABLET PO SCH (09:03)
[2019-03-06] MEDS: BRIMONIDINE TARTRATE 0.2% OPHTHALMIC 5 ML BOTTLE OU SCH ×2 (09:03→21:19)
[2019-03-06] MEDS: ZINC SULFATE 220 MG CAPSULE (FP) PO SCH (09:15)
[2019-03-06] MEDS: TIMOLOL 0.5% OPHTHALMIC SOL 5 ML BOTTLE OU SCH ×2 (09:15→21:19)
[2019-03-06] MEDS ORDERED: ONDANSETRON 4 MG/2 ML VIAL ONE (09:27)
[2019-03-06] MEDS ORDERED: ONDANSETRON 4 MG/2 ML VIAL IVPUSH ONE (09:29)
--- NOTE | 2019-03-06 09:55 | PN ---
Progress Note, Physician Chief Complaint: Nausea and vomiting this am History of Present Illness: Patient was seen and examined. Awake. Chart was reviewed Denies chest pain, SOB or palpitations - Current Medication List Current Medications: Active Medications Acetaminophen (Tylenol -) 650 mg PO Q4H PRN PRN Reason: PAIN OR FEVER Last Admin: 03/06/19 05:29 Dose: 650 mg Amino Acids (Prosource No Carb Liquid Pkt) 30 ml PO BID@0800,1730 [facility] Last Admin: 03/06/19 08:25 Dose: 30 ml Apixaban (Eliquis -) 5 mg PO BID [facility] Last Admin: 03/06/19 09:02 Dose: 5 mg Ascorbic Acid (Vitamin C -) 500 mg PO DAILY [facility] Last Admin: 03/06/19 09:02 Dose: 500 mg Brimonidine Tartrate (Alphagan 0.2% -) 1 drop OU BID [facility] Last Admin: 03/06/19 09:03 Dose: 1 drop Docusate Sodium (Colace -) 100 mg PO TID [facility] Last Admin: 03/06/19 05:27 Dose: 100 mg Ferrous Sulfate (Feosol -) 325 mg PO DAILY [facility] Last Admin: 03/06/19 09:02 Dose: 325 mg Piperacillin Sod/Tazobactam (Sod 3.375 gm/ Dextrose) 50 mls @ 100 mls/hr IVPB Q8H-IV [facility]; Protocol Last Admin: 03/06/19 09:02 Dose: 100 mls/hr Vancomycin HCl (Vancomycin 1 Gm Premix -) 1 gm in 200 mls @ 200 mls/hr IVPB BID @0100,1300 [facility]; Protocol Last Admin: 03/06/19 00:24 Dose: 200 mls/hr Latanoprost (Xalatan 0.005% Eye Drops -) 1 drop OU HS [facility] Last Admin: 03/05/19 21:35 Dose: 1 drop Losartan Potassium (Cozaar -) 25 mg PO DAILY [facility] Last Admin: 03/06/19 09:03 Dose: 25 mg Melatonin (Melatonin) 3 mg PO HS [facility] Last Admin: 03/05/19 21:35 Dose: 3 mg Methimazole (Tapazole -) 5 mg PO TID [facility] Last Admin: 03/06/19 05:29 Dose: 5 mg Metoprolol Tartrate (Lopressor -) 50 mg PO BID [facility] Last Admin: 03/06/19 09:02 Dose: 50 mg Oxycodone HCl (Roxicodone -) 5 mg PO Q6H PRN PRN Reason: PAIN LEVEL 7 - 10 Last Admin: 03/06/19 08:25 Dose: 5 mg Senna (Senna -) 1 tab PO BID [facility] Last Admin: 03/06/19 09:02 Dose: 1 tab Timolol Maleate (Timoptic 0.5%) 1 drop OU BID [facility] Last Admin: 03/06/19 09:15 Dose: 1 drop Tramadol HCl (Ultram -) 50 mg PO Q6H PRN PRN Reason: PAIN LEVEL 4 - 6 Last Admin: 03/05/19 20:27 Dose: 50 mg Zinc Sulfate (Orazinc -) 220 mg PO DAILY [facility] Last Admin: 03/06/19 09:15 Dose: 220 mg - Objective Vital Signs: Vital Signs Temperature 98.1 F 03/06/19 08:54 Pulse Rate 119 H 03/06/19 08:54 Respiratory Rate 20 03/06/19 08:54 Blood Pressure 116/47 L 03/06/19 08:54 O2 Sat by Pulse Oximetry (%) 97 03/06/19 05:00 Eyes: Yes: PERRL HENT: Yes: Atraumatic Neck: Yes: Supple Cardiovascular: Yes: Pulse Irregular, S1, S2 Respiratory: Yes: CTA Bilaterally Gastrointestinal: Yes: Other (post op) Edema: No Additional Findings/Remarks: - Review of Systems Constitutional: denies: Chills, Fever Cardiovascular: denies: Chest Pain. denies: Palpitations, Shortness of Breath Respiratory: denies Cough. denies: Hemoptysis, Orthopnea, PND, SOB, SOB on Exertion Gastrointestinal: denies: Abdominal Pain, Constipation, Diarrhea, Melena, Nausea , Rectal Bleeding, Vomiting Neurological: denies: Dizziness, Headache, Seizure, Syncope Labs: CBC, BMP 03/05/19 05:30 03/05/19 05:30 Problem List - Problems (1) Abdominal pain Code(s): R10.9 - UNSPECIFIED ABDOMINAL PAIN Qualifiers: Abdominal location: unspecified location Qualified Code(s): R10.9 - Unspecified abdominal pain (2) Afib Code(s): I48.91 - UNSPECIFIED ATRIAL FIBRILLATION Qualifiers: Atrial fibrillation type: chronic Qualified Code(s): I48.2 - Chronic atrial fibrillation (3) Anemia Code(s): D64.9 - ANEMIA, UNSPECIFIED (4) S/P left hemicolectomy Code(s): Z90.49 - ACQUIRED ABSENCE OF OTHER SPECIFIED PARTS OF DIGESTIVE TRACT (5) Colonic mass Code(s): K63.9 - DISEASE OF INTESTINE, UNSPECIFIED (6) Hyperthyroidism Code(s): E05.90 - THYROTOXICOSIS, UNSP WITHOUT THYROTOXIC CRISIS OR STORM (7) Acute on chronic diastolic (congestive) heart failure Code(s): I50.33 - ACUTE ON CHRONIC DIASTOLIC (CONGESTIVE) HEART FAILURE (8) Asthma Code(s): J45.909 - UNSPECIFIED ASTHMA, UNCOMPLICATED Qualifiers: Asthma severity: mild Asthma persistence: intermittent Asthma complication type: unspecified Qualified Code(s): J45.20 - Mild intermittent asthma, uncomplicated (9) CAD (coronary artery disease) Code(s): I25.10 - ATHSCL HEART DISEASE OF [place] CORONARY ARTERY W/O ANG PCTRS Qualifiers: Coronary Disease-Associated Artery/Lesion type: [place] artery [place] vs. transplanted heart: [place] heart Associated angina: without angina Qualified Code(s): I25.10 - Atherosclerotic heart disease of [place] coronary artery without angina pectoris (10) CVA (cerebral vascular accident) Code(s): I63.9 - CEREBRAL INFARCTION, UNSPECIFIED Qualifiers: CVA mechanism: unspecified Qualified Code(s): I63.9 - Cerebral infarction, unspecified (11) HTN (hypertension) Code(s): I10 - ESSENTIAL (PRIMARY) HYPERTENSION Qualifiers: Hypertension type: essential hypertension Qualified Code(s): I10 - Essential (primary) hypertension (12) Parkinson disease Code(s): G20 - PARKINSON'S DISEASE (13) Weakness Code(s): R53.1 - WEAKNESS Assessment/Plan 1. Post hemicolectomy for colon CA 2. Persistent AF with RVR on DOAC 3. HTN 4. DM 5. Parkinson's disease 6. Hyperthyroidism 7. ? Wound infection PLAN: 1. Empiric antibiotics 2. Continue Eliquis 3. Continue Lopressor and Cozaar as tolerated 4. Continue Tapazole 5. Surgery input noted. Continue wound care and supportive care 6. Zofran Further plans are to follow. May transfer to floor care Johann Cowan MD
--- NOTE | 2019-03-06 10:01 | PN ---
Progress Note, Physician - Current Medication List Current Medications: Active Medications Acetaminophen (Tylenol -) 650 mg PO Q4H PRN PRN Reason: PAIN OR FEVER Last Admin: 03/06/19 05:29 Dose: 650 mg Amino Acids (Prosource No Carb Liquid Pkt) 30 ml PO BID@0800,1730 [facility] Last Admin: 03/06/19 08:25 Dose: 30 ml Apixaban (Eliquis -) 5 mg PO BID [facility] Last Admin: 03/06/19 09:02 Dose: 5 mg Ascorbic Acid (Vitamin C -) 500 mg PO DAILY [facility] Last Admin: 03/06/19 09:02 Dose: 500 mg Brimonidine Tartrate (Alphagan 0.2% -) 1 drop OU BID [facility] Last Admin: 03/06/19 09:03 Dose: 1 drop Docusate Sodium (Colace -) 100 mg PO TID [facility] Last Admin: 03/06/19 05:27 Dose: 100 mg Ferrous Sulfate (Feosol -) 325 mg PO DAILY [facility] Last Admin: 03/06/19 09:02 Dose: 325 mg Piperacillin Sod/Tazobactam (Sod 3.375 gm/ Dextrose) 50 mls @ 100 mls/hr IVPB Q8H-IV [facility]; Protocol Last Admin: 03/06/19 09:02 Dose: 100 mls/hr Vancomycin HCl (Vancomycin 1 Gm Premix -) 1 gm in 200 mls @ 200 mls/hr IVPB BID @0100,1300 [facility]; Protocol Last Admin: 03/06/19 00:24 Dose: 200 mls/hr Latanoprost (Xalatan 0.005% Eye Drops -) 1 drop OU [facility] Last Admin: 03/05/19 21:35 Dose: 1 drop Losartan Potassium (Cozaar -) 25 mg PO DAILY [facility] Last Admin: 03/06/19 09:03 Dose: 25 mg Melatonin (Melatonin) 3 mg PO HS [facility] Last Admin: 03/05/19 21:35 Dose: 3 mg Methimazole (Tapazole -) 5 mg PO TID [facility] Last Admin: 03/06/19 05:29 Dose: 5 mg Metoprolol Tartrate (Lopressor -) 50 mg PO BID [facility] Last Admin: 03/06/19 09:02 Dose: 50 mg Oxycodone HCl (Roxicodone -) 5 mg PO Q6H PRN PRN Reason: PAIN LEVEL 7 - 10 Last Admin: 03/06/19 08:25 Dose: 5 mg Senna (Senna -) 1 tab PO BID [facility] Last Admin: 03/06/19 09:02 Dose: 1 tab Timolol Maleate (Timoptic 0.5%) 1 drop OU BID [facility] Last Admin: 03/06/19 09:15 Dose: 1 drop Tramadol HCl (Ultram -) 50 mg PO Q6H PRN PRN Reason: PAIN LEVEL 4 - 6 Last Admin: 03/05/19 20:27 Dose: 50 mg Zinc Sulfate (Orazinc -) 220 mg PO DAILY [facility] Last Admin: 03/06/19 09:15 Dose: 220 mg - Objective Vital Signs: Vital Signs Temperature 98.1 F 03/06/19 08:54 Pulse Rate 119 H 03/06/19 08:54 Respiratory Rate 20 03/06/19 08:54 Blood Pressure 116/47 L 03/06/19 08:54 O2 Sat by Pulse Oximetry (%) 97 03/06/19 05:00 Cardiovascular: Yes: S1, S2 Respiratory: Yes: Regular, CTA Bilaterally Gastrointestinal: Yes: Normal Bowel Sounds, Soft, Other (VAC IN PLACE) Labs: CBC, BMP 03/05/19 05:30 03/05/19 05:30 INR, PTT INR 1.34 (0.83-1.09) H 03/04/19 06:00 Problem List - Problems (1) Wound dehiscence, surgical Assessment/Plan: VAC PER SUGERY IV ABX-- ID FOLLOWING MONITOR LYTES NUTRITION FOLLOW LABS Code(s): T81.31XA - DISRUPTION OF EXTERNAL OPERATION (SURGICAL) WOUND, NEC, INIT Qualifiers: Encounter type: initial encounter Qualified Code(s): T81.31XA - Disruption of external operation (surgical) wound, not elsewhere classified, initial encounter (2) Abdominal pain Assessment/Plan: IMPROVED ABOVE Code(s): R10.9 - UNSPECIFIED ABDOMINAL PAIN Qualifiers: Abdominal location: unspecified location Qualified Code(s): R10.9 - Unspecified abdominal pain (3) Afib Assessment/Plan: -ON ELIQUIS -METOPROLOL 50 BID -ADD DIG.125 Code(s): I48.91 - UNSPECIFIED ATRIAL FIBRILLATION Qualifiers: Atrial fibrillation type: chronic Qualified Code(s): I48.2 - Chronic atrial fibrillation
[2019-03-06] MEDS ORDERED: DIGOXIN 0.125 MG TABLET (FP) PO ONE (12:56)
[2019-03-06] MEDS: traMADol HCL 50 MG TABLET PO PRN ×2 (13:44→19:52)
[2019-03-06] MEDS: MELATONIN 1 MG TABLET PO SCH (21:16)
[2019-03-06] MEDS: LATANOPROST 0.005% OPHTH SOLN 2.5ML BOTTLE OU SCH (21:20)
[2019-03-07] MEDS ORDERED: PIPERACILLIN/TAZOBACTAM 3.375 GM VIAL IVPB ONE ×2 (00:38→08:10)
[2019-03-07] MEDS ORDERED: DEXTROSE 5%-WATER - 50 ML IVPB ONE ×2 (00:39→08:10)
[2019-03-07] MEDS: VANCOMYCIN 1 GM PREMIX - 1 GM/200 ML BAG IVPB SCH (00:45)
[2019-03-07] MEDS: PIPERACILLIN/TAZOB 3.375 GM 3.375 GM in DEXTROSE 5%-WATER - 50 ML IVPB SCH (02:27)
[2019-03-07] MEDS: METHIMAZOLE 5 MG TABLET (FP) PO SCH ×3 (06:27→21:13)
[2019-03-07] MEDS: DOCUSATE SODIUM 100 MG CAPSULE (FP) PO SCH ×3 (06:27→21:06)
[2019-03-07] MEDS: traMADol HCL 50 MG TABLET PO PRN (06:28)
[2019-03-07 06:33] LABS: BASO % 0.6 % (0-2.0); EOS % 3.2 % (0-4.5); HEMATOCRIT 27.3 % (32.4-45.2); HEMOGLOBIN 8.7 GM/dL (10.7-15.3); LYMPH % 20.5 % (8-40); MCH 24.3 pg (25.7-33.7); MCHC 32.1 g/dl (32.0-36.0); MEAN CELL VOLUME 75.6 fl (80-96); MEAN PLT VOLUME 7.3 fl (7.5-11.1); MONO % 12.6 % (3.8-10.2); NEUT % 63.1 % (42.8-82.8); PLATELET COUNT 488 K/MM3 (134-434); RBC 3.61 M/mm3 (3.60-5.2); RDW 31.2 % (11.6-15.6); WHITE BLOOD COUNT 6.9 K/mm3 (4.0-10.0)
[2019-03-07 07:08] LABS: ALBUMIN 1.6 g/dl (3.4-5.0); ALK PHOS 71 U/L (45-117); ANION GAP 5 MMOL/L (8-16); BILIRUBIN,TOTAL 0.4 mg/dL (0.2-1); BLOOD UREA NITROGEN 9 mg/dL (7-18); CALCIUM 8.3 mg/dL (8.5-10.1); CHLORIDE 105 mmol/L (98-107); CO2 32 mmol/L (21-32); CREATININE 0.6 mg/dL (0.55-1.3); GLUCOSE,RANDOM 88 mg/dL (74-106); POTASSIUM 3.8 mmol/L (3.5-5.1); SGOT/AST 20 U/L (15-37); SGPT/ALT 16 U/L (13-61); SODIUM 142 mmol/L (136-145); TOT PROT 4.5 g/dl (6.4-8.2)
--- NOTE | 2019-03-07 09:38 | PN ---
Progress Note, Physician History of Present Illness: stable no new issues - Current Medication List Current Medications: Active Medications Acetaminophen (Tylenol -) 650 mg PO Q4H PRN PRN Reason: PAIN OR FEVER Last Admin: 03/06/19 05:29 Dose: 650 mg Amino Acids (Prosource No Carb Liquid Pkt) 30 ml PO BID@0800,1730 [facility] Last Admin: 03/06/19 17:38 Dose: 30 ml Apixaban (Eliquis -) 5 mg PO BID [facility] Last Admin: 03/06/19 21:16 Dose: 5 mg Ascorbic Acid (Vitamin C -) 500 mg PO DAILY [facility] Last Admin: 03/06/19 09:02 Dose: 500 mg Brimonidine Tartrate (Alphagan 0.2% -) 1 drop OU BID [facility] Last Admin: 03/06/19 21:19 Dose: 1 drop Digoxin (Lanoxin -) 0.125 mg PO DAILY [facility] Docusate Sodium (Colace -) 100 mg PO TID [facility] Last Admin: 03/07/19 06:27 Dose: Not Given Ferrous Sulfate (Feosol -) 325 mg PO DAILY [facility] Last Admin: 03/06/19 09:02 Dose: 325 mg Piperacillin Sod/Tazobactam (Sod 3.375 gm/ Dextrose) 50 mls @ 100 mls/hr IVPB Q8H-IV [facility]; Protocol Last Admin: 03/07/19 02:27 Dose: 100 mls/hr Vancomycin HCl (Vancomycin 1 Gm Premix -) 1 gm in 200 mls @ 200 mls/hr IVPB BID @0100,1300 [facility]; Protocol Last Admin: 03/07/19 00:45 Dose: 200 mls/hr Latanoprost (Xalatan 0.005% Eye Drops -) 1 drop OU [facility] Last Admin: 03/06/19 21:20 Dose: 1 drop Losartan Potassium (Cozaar -) 25 mg PO DAILY [facility] Last Admin: 03/06/19 09:03 Dose: 25 mg Melatonin (Melatonin) 3 mg PO [facility] Last Admin: 03/06/19 21:16 Dose: 3 mg Methimazole (Tapazole -) 5 mg PO TID [facility] Last Admin: 03/07/19 06:27 Dose: Not Given Metoprolol Tartrate (Lopressor -) 50 mg PO BID [facility] Last Admin: 03/06/19 21:16 Dose: 50 mg Oxycodone HCl (Roxicodone -) 5 mg PO Q6H PRN PRN Reason: PAIN LEVEL 7 - 10 Last Admin: 03/06/19 08:25 Dose: 5 mg Senna (Senna -) 1 tab PO BID [facility] Last Admin: 03/06/19 21:14 Dose: Not Given Timolol Maleate (Timoptic 0.5%) 1 drop OU BID [facility] Last Admin: 03/06/19 21:19 Dose: 1 drop Tramadol HCl (Ultram -) 50 mg PO Q6H PRN PRN Reason: PAIN LEVEL 4 - 6 Last Admin: 03/07/19 06:28 Dose: 50 mg Zinc Sulfate (Orazinc -) 220 mg PO DAILY [facility] Last Admin: 03/06/19 09:15 Dose: 220 mg - Objective Vital Signs: Vital Signs Temperature 97.8 F 03/07/19 06:00 Pulse Rate 84 03/07/19 06:00 Respiratory Rate 20 03/07/19 07:40 Blood Pressure 111/55 L 03/07/19 06:00 O2 Sat by Pulse Oximetry (%) 96 03/07/19 07:40 Constitutional: Yes: No Distress, Calm, Obese Cardiovascular: Yes: S1, S2 Respiratory: Yes: Regular, CTA Bilaterally Gastrointestinal: Yes: Normal Bowel Sounds, Soft Musculoskeletal: Yes: WNL Extremities: Yes: WNL Wound/Incision: Yes: Dressing Dry and Intact Neurological: Yes: Alert, Oriented Psychiatric: Yes: Alert, Oriented Labs: CBC, BMP 03/07/19 05:30 03/07/19 05:30 INR, PTT INR 1.34 (0.83-1.09) H 03/04/19 06:00 Assessment/Plan Problem List - Problems (1) Abdominal pain Code(s): R10.9 - UNSPECIFIED ABDOMINAL PAIN Qualifiers: Abdominal location: unspecified location Qualified Code(s): R10.9 - Unspecified abdominal pain (2) Obesity (BMI 30-39.9) Code(s): E66.9 - OBESITY, UNSPECIFIED (3) S/P left hemicolectomy Code(s): Z90.49 - ACQUIRED ABSENCE OF OTHER SPECIFIED PARTS OF DIGESTIVE TRACT (4) Colonic mass Code(s): K63.9 - DISEASE OF INTESTINE, UNSPECIFIED (5) Hyperthyroidism Code(s): E05.90 - THYROTOXICOSIS, UNSP WITHOUT THYROTOXIC CRISIS OR STORM (6) New onset atrial fibrillation Code(s): I48.91 - UNSPECIFIED ATRIAL FIBRILLATION (7) Acute on chronic diastolic (congestive) heart failure Code(s): I50.33 - ACUTE ON CHRONIC DIASTOLIC (CONGESTIVE) HEART FAILURE (8) Asthma Code(s): J45.909 - UNSPECIFIED ASTHMA, UNCOMPLICATED Qualifiers: Asthma severity: mild Asthma persistence: intermittent Asthma complication type: unspecified Qualified Code(s): J45.20 - Mild intermittent asthma, uncomplicated (9) CAD (coronary artery disease) Code(s): I25.10 - ATHSCL HEART DISEASE OF [place] CORONARY ARTERY W/O ANG PCTRS Qualifiers: Coronary Disease-Associated Artery/Lesion type: [place] artery [place] vs. transplanted heart: [place] heart Associated angina: without angina Qualified Code(s): I25.10 - Atherosclerotic heart disease of [place] coronary artery without angina pectoris (10) Diabetes mellitus Code(s): E11.9 - TYPE 2 DIABETES MELLITUS WITHOUT COMPLICATIONS Qualifiers: Diabetes mellitus type: type 2 Diabetes mellitus taxonomy teacher insulin use: without fdc use Diabetes mellitus complication status: without complication Qualified Code(s): E11.9 - Type 2 diabetes mellitus without complications (11) HTN (hypertension) Code(s): I10 - ESSENTIAL (PRIMARY) HYPERTENSION Qualifiers: Hypertension type: essential hypertension Qualified Code(s): I10 - Essential (primary) hypertension (12) Parkinson disease Code(s): G20 - PARKINSON'S DISEASE Assessment/Plan 83 y.o. female with PMH of DM, AFIB, HTN, HLD, CHF, hyperthyroidism, and Colon CA s/p Lt hemicolectomy on 02/22/19 with post-op wound infection discharged home on 03/02/19 on po antibiotics presenting with abd pain, purulent discharge from wound dehiscence site. CT Abd with bowel herniation into dehiscence site. Post-op Wound Infection Bowel herniation into wound s/p hemicolectomy for Colon CA DM AFIB CAD CHF HTN HLD Hyperthyroidism plan continue current abx will see what wound cx shows then will decide patient improving
--- NOTE | 2019-03-07 09:43 | PN ---
Progress Note, Physician History of Present Illness: patent stable no new issues - Current Medication List Current Medications: Active Medications Acetaminophen (Tylenol -) 650 mg PO Q4H PRN PRN Reason: PAIN OR FEVER Last Admin: 03/06/19 05:29 Dose: 650 mg Amino Acids (Prosource No Carb Liquid Pkt) 30 ml PO BID@0800,1730 [facility] Last Admin: 03/06/19 17:38 Dose: 30 ml Apixaban (Eliquis -) 5 mg PO BID [facility] Last Admin: 03/06/19 21:16 Dose: 5 mg Ascorbic Acid (Vitamin C -) 500 mg PO DAILY [facility] Last Admin: 03/06/19 09:02 Dose: 500 mg Brimonidine Tartrate (Alphagan 0.2% -) 1 drop OU BID [facility] Last Admin: 03/06/19 21:19 Dose: 1 drop Digoxin (Lanoxin -) 0.125 mg PO DAILY [facility] Docusate Sodium (Colace -) 100 mg PO TID [facility] Last Admin: 03/07/19 06:27 Dose: Not Given Ferrous Sulfate (Feosol -) 325 mg PO DAILY [facility] Last Admin: 03/06/19 09:02 Dose: 325 mg Piperacillin Sod/Tazobactam (Sod 3.375 gm/ Dextrose) 50 mls @ 100 mls/hr IVPB Q8H-IV [facility]; Protocol Last Admin: 03/07/19 02:27 Dose: 100 mls/hr Vancomycin HCl (Vancomycin 1 Gm Premix -) 1 gm in 200 mls @ 200 mls/hr IVPB BID @0100,1300 [facility]; Protocol Last Admin: 03/07/19 00:45 Dose: 200 mls/hr Latanoprost (Xalatan 0.005% Eye Drops -) 1 drop OU [facility] Last Admin: 03/06/19 21:20 Dose: 1 drop Losartan Potassium (Cozaar -) 25 mg PO DAILY [facility] Last Admin: 03/06/19 09:03 Dose: 25 mg Melatonin (Melatonin) 3 mg PO [facility] Last Admin: 03/06/19 21:16 Dose: 3 mg Methimazole (Tapazole -) 5 mg PO TID [facility] Last Admin: 03/07/19 06:27 Dose: Not Given Metoprolol Tartrate (Lopressor -) 50 mg PO BID [facility] Last Admin: 03/06/19 21:16 Dose: 50 mg Oxycodone HCl (Roxicodone -) 5 mg PO Q6H PRN PRN Reason: PAIN LEVEL 7 - 10 Last Admin: 03/06/19 08:25 Dose: 5 mg Senna (Senna -) 1 tab PO BID [facility] Last Admin: 03/06/19 21:14 Dose: Not Given Timolol Maleate (Timoptic 0.5%) 1 drop OU BID [facility] Last Admin: 03/06/19 21:19 Dose: 1 drop Tramadol HCl (Ultram -) 50 mg PO Q6H PRN PRN Reason: PAIN LEVEL 4 - 6 Last Admin: 03/07/19 06:28 Dose: 50 mg Zinc Sulfate (Orazinc -) 220 mg PO DAILY [facility] Last Admin: 03/06/19 09:15 Dose: 220 mg - Objective Vital Signs: Vital Signs Temperature 97.8 F 03/07/19 06:00 Pulse Rate 84 03/07/19 06:00 Respiratory Rate 20 03/07/19 07:40 Blood Pressure 111/55 L 03/07/19 06:00 O2 Sat by Pulse Oximetry (%) 96 03/07/19 07:40 Constitutional: Yes: No Distress, Calm Neck: Yes: Supple, Trachea Midline Cardiovascular: Yes: Regular Rate and Rhythm Respiratory: Yes: Regular, CTA Bilaterally Gastrointestinal: Yes: Normal Bowel Sounds, Soft Musculoskeletal: Yes: WNL Extremities: Yes: WNL Wound/Incision: Yes: Dressing Dry and Intact Neurological: Yes: Alert, Oriented Psychiatric: Yes: Alert, Oriented Labs: CBC, BMP 03/07/19 05:30 03/07/19 05:30 INR, PTT INR 1.34 (0.83-1.09) H 03/04/19 06:00 Assessment/Plan Problem List - Problems (1) Abdominal pain Code(s): R10.9 - UNSPECIFIED ABDOMINAL PAIN Qualifiers: Abdominal location: unspecified location Qualified Code(s): R10.9 - Unspecified abdominal pain (2) Obesity (BMI 30-39.9) Code(s): E66.9 - OBESITY, UNSPECIFIED (3) S/P left hemicolectomy Code(s): Z90.49 - ACQUIRED ABSENCE OF OTHER SPECIFIED PARTS OF DIGESTIVE TRACT (4) Colonic mass Code(s): K63.9 - DISEASE OF INTESTINE, UNSPECIFIED (5) Hyperthyroidism Code(s): E05.90 - THYROTOXICOSIS, UNSP WITHOUT THYROTOXIC CRISIS OR STORM (6) New onset atrial fibrillation Code(s): I48.91 - UNSPECIFIED ATRIAL FIBRILLATION (7) Acute on chronic diastolic (congestive) heart failure Code(s): I50.33 - ACUTE ON CHRONIC DIASTOLIC (CONGESTIVE) HEART FAILURE (8) Asthma Code(s): J45.909 - UNSPECIFIED ASTHMA, UNCOMPLICATED Qualifiers: Asthma severity: mild Asthma persistence: intermittent Asthma complication type: unspecified Qualified Code(s): J45.20 - Mild intermittent asthma, uncomplicated (9) CAD (coronary artery disease) Code(s): I25.10 - ATHSCL HEART DISEASE OF [place] CORONARY ARTERY W/O ANG PCTRS Qualifiers: Coronary Disease-Associated Artery/Lesion type: [place] artery [place] vs. transplanted heart: [place] heart Associated angina: without angina Qualified Code(s): I25.10 - Atherosclerotic heart disease of [place] coronary artery without angina pectoris (10) Diabetes mellitus Code(s): E11.9 - TYPE 2 DIABETES MELLITUS WITHOUT COMPLICATIONS Qualifiers: Diabetes mellitus type: type 2 Diabetes mellitus residential insulin use: without residential use Diabetes mellitus complication status: without complication Qualified Code(s): E11.9 - Type 2 diabetes mellitus without complications (11) HTN (hypertension) Code(s): I10 - ESSENTIAL (PRIMARY) HYPERTENSION Qualifiers: Hypertension type: essential hypertension Qualified Code(s): I10 - Essential (primary) hypertension (12) Parkinson disease Code(s): G20 - PARKINSON'S DISEASE Assessment/Plan 83 y.o. female with PMH of DM, AFIB, HTN, HLD, CHF, hyperthyroidism, and Colon CA s/p Lt hemicolectomy on 02/22/19 with post-op wound infection discharged home on 03/02/19 on po antibiotics presenting with abd pain, purulent discharge from wound dehiscence site. CT Abd with bowel herniation into dehiscence site. Post-op Wound Infection Bowel herniation into wound s/p hemicolectomy for Colon CA DM AFIB CAD CHF HTN HLD Hyperthyroidism plan will change abx o oral close watch on the wounds wound care rest as per the team
[2019-03-07] MEDS: ZINC SULFATE 220 MG CAPSULE (FP) PO SCH (09:45)
[2019-03-07] MEDS: AMINO ACIDS/PROTEIN HYDROLYS 30 ML LIQUID.PKT PO SCH ×2 (09:45→16:43)
[2019-03-07] MEDS: SENNOSIDES 8.6MG TABLET (FP) PO SCH ×2 (09:45→21:13)
[2019-03-07] MEDS: FERROUS SO4 325 MG TABLET (FP) PO SCH (09:45)
[2019-03-07] MEDS: METOPROLOL TARTRATE 50 MG TABLET (FP) PO SCH ×3 (09:46→21:06)
[2019-03-07] MEDS: APIXABAN 5 MG TABLET PO SCH ×2 (09:46→21:06)
[2019-03-07] MEDS: LOSARTAN POTASSIUM 25 MG TABLET PO SCH (09:46)
[2019-03-07] MEDS: TIMOLOL 0.5% OPHTHALMIC SOL 5 ML BOTTLE OU SCH ×2 (09:47→21:08)
[2019-03-07] MEDS: BRIMONIDINE TARTRATE 0.2% OPHTHALMIC 5 ML BOTTLE OU SCH ×2 (09:47→21:09)
[2019-03-07] MEDS: ASCORBIC ACID 500 MG TABLET (FP) PO SCH (09:49)
[2019-03-07] MEDS ORDERED: DIGOXIN 0.125 MG TABLET (FP) PO SCH (10:00)
--- NOTE | 2019-03-07 10:39 | PN ---
Progress Note, Physician Chief Complaint: abdominal wound History of Present Illness: 83 yo female PMH Colon Ca (s/p Hemicolectomy, 02/2019), HTN, HLD, Afib (on Eliquis), Diastolic CHF, HLD, Hyperthyroidism. Who presents to the ED with her daughters for abdominal pain. She had the VAC placed 03/06, which is remains functional and low output. Her oral intake. - Current Medication List Current Medications: Active Medications Acetaminophen (Tylenol -) 650 mg PO Q4H PRN PRN Reason: PAIN OR FEVER Last Admin: 03/06/19 05:29 Dose: 650 mg Amino Acids (Prosource No Carb Liquid Pkt) 30 ml PO BID@0800,1730 [facility] Last Admin: 03/07/19 09:45 Dose: 30 ml Amoxicillin/Clavulanate Potassium (Augmentin - 875mg Tablet) 1 tab PO BID@0800, 1730 [facility] Apixaban (Eliquis -) 5 mg PO BID [facility] Last Admin: 03/07/19 09:46 Dose: 5 mg Ascorbic Acid (Vitamin C -) 500 mg PO DAILY [facility] Last Admin: 03/07/19 09:49 Dose: 500 mg Brimonidine Tartrate (Alphagan 0.2% -) 1 drop OU BID [facility] Last Admin: 03/07/19 09:47 Dose: 1 drop Digoxin (Lanoxin -) 0.125 mg PO DAILY [facility] Last Admin: 03/07/19 09:45 Dose: 0.125 mg Docusate Sodium (Colace -) 100 mg PO TID [facility] Last Admin: 03/07/19 06:27 Dose: Not Given Ferrous Sulfate (Feosol -) 325 mg PO DAILY [facility] Last Admin: 03/07/19 09:45 Dose: 325 mg Latanoprost (Xalatan 0.005% Eye Drops -) 1 drop OU HS [facility] Last Admin: 03/06/19 21:20 Dose: 1 drop Losartan Potassium (Cozaar -) 25 mg PO DAILY [facility] Last Admin: 03/07/19 09:46 Dose: Not Given Melatonin (Melatonin) 3 mg PO HS [facility] Last Admin: 03/06/19 21:16 Dose: 3 mg Methimazole (Tapazole -) 5 mg PO TID [facility] Last Admin: 03/07/19 06:27 Dose: Not Given Metoprolol Tartrate (Lopressor -) 50 mg PO BID [facility] Last Admin: 03/07/19 09:46 Dose: Not Given Oxycodone HCl (Roxicodone -) 5 mg PO Q6H PRN PRN Reason: PAIN LEVEL 7 - 10 Last Admin: 03/06/19 08:25 Dose: 5 mg Senna (Senna -) 1 tab PO BID [facility] Last Admin: 03/07/19 09:45 Dose: 1 tab Timolol Maleate (Timoptic 0.5%) 1 drop OU BID [facility] Last Admin: 03/07/19 09:47 Dose: 1 drop Tramadol HCl (Ultram -) 50 mg PO Q6H PRN PRN Reason: PAIN LEVEL 4 - 6 Last Admin: 03/07/19 06:28 Dose: 50 mg Zinc Sulfate (Orazinc -) 220 mg PO DAILY [facility] Last Admin: 03/07/19 09:45 Dose: 220 mg - Objective Vital Signs: Vital Signs Temperature 98.1 F 03/07/19 09:54 Pulse Rate 119 H 03/07/19 09:54 Respiratory Rate 20 03/07/19 09:54 Blood Pressure 91/74 03/07/19 09:54 O2 Sat by Pulse Oximetry (%) 96 03/07/19 07:40 Vital Signs Period Temp Pulse Resp BP Sys/Ugarte Pulse Ox Last 24 Hr 97.5 F-98.2 F 82-119 18-20 91-140/55-85 96-96 Intake & Output 03/07/19 03/07/19 03/07/19 07:59 15:59 23:59 Intake Total 500 Balance 500 Weight 182 lb 182 lb Intake: IV 10 saline lock 10 IVPB 250 Oral 240 Other: Voiding Method Incontinent Diaper # Unmeasured Voids Void 2 Bowel Movement No Yes Height 4 ft 11 in Body Mass Index (BMI) 36.7 Weight Measurement Method Standing Scale Constitutional: Yes: No Distress, Calm, Obese Eyes: Yes: Conjunctiva Clear, EOM Intact HENT: Yes: Atraumatic, Normocephalic Neck: Yes: Supple, Trachea Midline Cardiovascular: Yes: Regular Rate and Rhythm, S1, S2 Respiratory: Yes: Regular, CTA Bilaterally Gastrointestinal: Yes: Normal Bowel Sounds, Soft, Abdomen, Obese. No: Distention ...Rectal Exam: Yes: Deferred Genitourinary: No: CVA Tenderness - Left, CVA Tenderness - Right Musculoskeletal: No: Muscle Pain, Muscle Weakness Extremities: No: Cool, Cyanosis Edema: No Peripheral Pulses WNL: Yes Peripheral Pulses: Left Radial: 2+, Right Radial: 2+, Left Doralis Pedis: 2+, Right Dorsalis Pedis: 2+, Left Femoral: 2+, Right Femoral: 2+ Integumentary: No: Jaundice, Laceration, Rash Wound/Incision: Yes: Clean/Dry, Draining (VAC in place and fucntional 200ml serosanguinous in canniter), Unapproximated Neurological: Yes: Alert, Oriented Psychiatric: Yes: Alert, Oriented Labs: CBC, BMP 03/07/19 05:30 03/07/19 05:30 INR, PTT INR 1.34 (0.83-1.09) H 03/04/19 06:00 Problem List - Problems (1) Wound dehiscence, surgical Assessment/Plan: 83 yo female with MMP lower midline wound dehissance (at fascia) with an eviscerated and incarcerated (not strangulated) loop of small intestines in a granulating bed. Likely secondary to very poor nutritional status. No acute intervention is indicated. She is not consuming adequate calories to heal. She reports nausea. Medical management will order megase Continue diet as tolerated Optimize nutritional status, protein supplementation (current prealb 5.6) VAC with whitefoam over the bowel and granulofoam cover - due 03/08 Dr. Alvarado will return by then to evaluate Code(s): T81.31XA - DISRUPTION OF EXTERNAL OPERATION (SURGICAL) WOUND, NEC, INIT Qualifiers: Encounter type: subsequent encounter Qualified Code(s): T81.31XD - Disruption of external operation (surgical) wound, not elsewhere classified, subsequent encounter (2) Afib Code(s): I48.91 - UNSPECIFIED ATRIAL FIBRILLATION Qualifiers: Atrial fibrillation type: chronic Qualified Code(s): I48.2 - Chronic atrial fibrillation (3) Obesity (BMI 30-39.9) Code(s): E66.9 - OBESITY, UNSPECIFIED (4) CAD (coronary artery disease) Code(s): I25.10 - ATHSCL HEART DISEASE OF [place] CORONARY ARTERY W/O ANG PCTRS Qualifiers: Coronary Disease-Associated Artery/Lesion type: [place] artery [place] vs. transplanted heart: [place] heart Associated angina: without angina Qualified Code(s): I25.10 - Atherosclerotic heart disease of [place] coronary artery without angina pectoris (5) CVA (cerebral vascular accident) Code(s): I63.9 - CEREBRAL INFARCTION, UNSPECIFIED Qualifiers: CVA mechanism: unspecified Qualified Code(s): I63.9 - Cerebral infarction, unspecified (6) HTN (hypertension) Code(s): I10 - ESSENTIAL (PRIMARY) HYPERTENSION Qualifiers: Hypertension type: essential hypertension Qualified Code(s): I10 - Essential (primary) hypertension (7) Parkinson disease Code(s): G20 - PARKINSON'S DISEASE
--- NOTE | 2019-03-07 13:34 | PN ---
Progress Note, Physician History of Present Illness: Afib with RVR yet Lopressor held, tolerating diet, having BM, wound vac draining. - Current Medication List Current Medications: Active Medications Acetaminophen (Tylenol -) 650 mg PO Q4H PRN PRN Reason: PAIN OR FEVER Last Admin: 03/06/19 05:29 Dose: 650 mg Amino Acids (Prosource No Carb Liquid Pkt) 30 ml PO BID@0800,1730 [facility] Last Admin: 03/07/19 09:45 Dose: 30 ml Amoxicillin/Clavulanate Potassium (Augmentin - 875mg Tablet) 1 tab PO BID@0800, 1730 [facility] Apixaban (Eliquis -) 5 mg PO BID [facility] Last Admin: 03/07/19 09:46 Dose: 5 mg Ascorbic Acid (Vitamin C -) 500 mg PO DAILY [facility] Last Admin: 03/07/19 09:49 Dose: 500 mg Brimonidine Tartrate (Alphagan 0.2% -) 1 drop OU BID [facility] Last Admin: 03/07/19 09:47 Dose: 1 drop Digoxin (Lanoxin -) 0.125 mg PO DAILY [facility] Last Admin: 03/07/19 09:45 Dose: 0.125 mg Docusate Sodium (Colace -) 100 mg PO TID [facility] Last Admin: 03/07/19 13:27 Dose: Not Given Ferrous Sulfate (Feosol -) 325 mg PO DAILY [facility] Last Admin: 03/07/19 09:45 Dose: 325 mg Latanoprost (Xalatan 0.005% Eye Drops -) 1 drop OU HS [facility] Last Admin: 03/06/19 21:20 Dose: 1 drop Losartan Potassium (Cozaar -) 25 mg PO DAILY [facility] Last Admin: 03/07/19 09:46 Dose: Not Given Melatonin (Melatonin) 3 mg PO HS [facility] Last Admin: 03/06/19 21:16 Dose: 3 mg Methimazole (Tapazole -) 5 mg PO TID [facility] Last Admin: 03/07/19 13:27 Dose: Not Given Metoprolol Tartrate (Lopressor -) 50 mg PO BID [facility] Last Admin: 03/07/19 09:46 Dose: Not Given Oxycodone HCl (Roxicodone -) 5 mg PO Q6H PRN PRN Reason: PAIN LEVEL 7 - 10 Last Admin: 03/06/19 08:25 Dose: 5 mg Senna (Senna -) 1 tab PO BID [facility] Last Admin: 03/07/19 09:45 Dose: 1 tab Timolol Maleate (Timoptic 0.5%) 1 drop OU BID [facility] Last Admin: 03/07/19 09:47 Dose: 1 drop Tramadol HCl (Ultram -) 50 mg PO Q6H PRN PRN Reason: PAIN LEVEL 4 - 6 Last Admin: 03/07/19 06:28 Dose: 50 mg Zinc Sulfate (Orazinc -) 220 mg PO DAILY [facility] Last Admin: 03/07/19 09:45 Dose: 220 mg - Objective Vital Signs: Vital Signs Temperature 98.1 F 03/07/19 09:54 Pulse Rate 119 H 03/07/19 09:54 Respiratory Rate 20 03/07/19 09:54 Blood Pressure 91/74 03/07/19 09:54 O2 Sat by Pulse Oximetry (%) 96 03/07/19 07:40 Constitutional: Yes: No Distress, Calm Neck: Yes: Supple Cardiovascular: Yes: Tachycardia, Pulse Irregular Respiratory: Yes: Regular, Diminished Gastrointestinal: Yes: Normal Bowel Sounds, Soft, Other (Wound vac in place) Edema: No Labs: CBC, BMP 03/07/19 05:30 03/07/19 05:30 INR, PTT INR 1.34 (0.83-1.09) H 03/04/19 06:00 - ....Imaging EKG: Report Reviewed (Tele: Afib) Problem List - Problems (1) Afib Code(s): I48.91 - UNSPECIFIED ATRIAL FIBRILLATION Qualifiers: Atrial fibrillation type: chronic Qualified Code(s): I48.2 - Chronic atrial fibrillation (2) S/P left hemicolectomy Code(s): Z90.49 - ACQUIRED ABSENCE OF OTHER SPECIFIED PARTS OF DIGESTIVE TRACT (3) Wound dehiscence, surgical Code(s): T81.31XA - DISRUPTION OF EXTERNAL OPERATION (SURGICAL) WOUND, NEC, INIT Qualifiers: Encounter type: subsequent encounter Qualified Code(s): T81.31XD - Disruption of external operation (surgical) wound, not elsewhere classified, subsequent encounter (4) Hyperthyroidism Code(s): E05.90 - THYROTOXICOSIS, UNSP WITHOUT THYROTOXIC CRISIS OR STORM (5) CAD (coronary artery disease) Code(s): I25.10 - ATHSCL HEART DISEASE OF [place] CORONARY ARTERY W/O ANG PCTRS Qualifiers: Coronary Disease-Associated Artery/Lesion type: [place] artery [place] vs. transplanted heart: [place] heart Associated angina: without angina Qualified Code(s): I25.10 - Atherosclerotic heart disease of [place] coronary artery without angina pectoris (6) CVA (cerebral vascular accident) Code(s): I63.9 - CEREBRAL INFARCTION, UNSPECIFIED Qualifiers: CVA mechanism: unspecified Qualified Code(s): I63.9 - Cerebral infarction, unspecified (7) HTN (hypertension) Code(s): I10 - ESSENTIAL (PRIMARY) HYPERTENSION Qualifiers: Hypertension type: essential hypertension Qualified Code(s): I10 - Essential (primary) hypertension Assessment/Plan 02/04/2018 Echo: Normal LV systolic function, mild LVH, mildly dilated ascending thoacic aorta, tr MR, tr TR and trace pericardial effusion DON: Normal LV size and fxn, mild MR, TR, mod AR, tr-mild SC 1. Post hemicolectomy for colon CA with post-op wound infection and bowel herniation into dehiscence site 2. Persistent AF with RVR on DOAC 3. HTN 4. DM 5. Parkinson's disease 6. Hyperthyroidism PLAN: 1. Complete empiric antibiotic course 2. Continue Eliquis 5 bid 3. Resume Lopressor 50 bid and Cozaar 25 qd as hemodynamics tolerated, d/c digoxin 4. Continue Tapazole 5 tid 5. Surgery input noted. Continue wound vac care and supportive care D
--- NOTE | 2019-03-07 15:15 | PN ---
Progress Note, Physician Chief Complaint: Abdominal Pain S/P Hemicolectomy History of Present Illness: Previous notes and events reviewed awake and alert NAD complain of epigastric pain and nausea - Current Medication List Current Medications: Active Medications Acetaminophen (Tylenol -) 650 mg PO Q4H PRN PRN Reason: PAIN OR FEVER Last Admin: 03/06/19 05:29 Dose: 650 mg Amino Acids (Prosource No Carb Liquid Pkt) 30 ml PO BID@0800,1730 [facility] Last Admin: 03/07/19 09:45 Dose: 30 ml Amoxicillin/Clavulanate Potassium (Augmentin - 875mg Tablet) 1 tab PO BID@0800, 1730 [facility] Apixaban (Eliquis -) 5 mg PO BID [facility] Last Admin: 03/07/19 09:46 Dose: 5 mg Ascorbic Acid (Vitamin C -) 500 mg PO DAILY [facility] Last Admin: 03/07/19 09:49 Dose: 500 mg Brimonidine Tartrate (Alphagan 0.2% -) 1 drop OU BID [facility] Last Admin: 03/07/19 09:47 Dose: 1 drop Docusate Sodium (Colace -) 100 mg PO TID [facility] Last Admin: 03/07/19 13:27 Dose: Not Given Ferrous Sulfate (Feosol -) 325 mg PO DAILY [facility] Last Admin: 03/07/19 09:45 Dose: 325 mg Latanoprost (Xalatan 0.005% Eye Drops -) 1 drop OU [facility] Last Admin: 03/06/19 21:20 Dose: 1 drop Losartan Potassium (Cozaar -) 25 mg PO DAILY [facility] Last Admin: 03/07/19 09:46 Dose: Not Given Melatonin (Melatonin) 3 mg PO HS [facility] Last Admin: 03/06/19 21:16 Dose: 3 mg Methimazole (Tapazole -) 5 mg PO TID [facility] Last Admin: 03/07/19 13:27 Dose: Not Given Metoprolol Tartrate (Lopressor -) 50 mg PO BID [facility] Oxycodone HCl (Roxicodone -) 5 mg PO Q6H PRN PRN Reason: PAIN LEVEL 7 - 10 Last Admin: 03/06/19 08:25 Dose: 5 mg Senna (Senna -) 1 tab PO BID [facility] Last Admin: 03/07/19 09:45 Dose: 1 tab Timolol Maleate (Timoptic 0.5%) 1 drop OU BID [facility] Last Admin: 03/07/19 09:47 Dose: 1 drop Tramadol HCl (Ultram -) 50 mg PO Q6H PRN PRN Reason: PAIN LEVEL 4 - 6 Last Admin: 03/07/19 06:28 Dose: 50 mg Zinc Sulfate (Orazinc -) 220 mg PO DAILY [facility] Last Admin: 03/07/19 09:45 Dose: 220 mg - Objective Vital Signs: Vital Signs Temperature 98.1 F 03/07/19 09:54 Pulse Rate 119 H 03/07/19 09:54 Respiratory Rate 20 03/07/19 09:54 Blood Pressure 91/74 03/07/19 09:54 O2 Sat by Pulse Oximetry (%) 96 03/07/19 07:40 Constitutional: Yes: No Distress, Calm Eyes: Yes: Conjunctiva Clear HENT: Yes: Atraumatic Cardiovascular: Yes: Pulse Irregular Respiratory: Yes: Regular, CTA Bilaterally Gastrointestinal: Yes: Normal Bowel Sounds, Soft, Tenderness (difuse), Other ( wound mid abdomen) Genitourinary: Yes: Incontinence Musculoskeletal: Yes: Muscle Weakness Extremities: Yes: WNL Edema: No Neurological: Yes: Alert, Pre-Existing Deficit Psychiatric: Yes: Alert, Oriented Labs: CBC, BMP 03/07/19 05:30 03/07/19 05:30 INR, PTT INR 1.34 (0.83-1.09) H 03/04/19 06:00 Microbiology 03/03/19 13:34 Blood - Peripheral Venous Blood Culture - Preliminary NO GROWTH OBTAINED AFTER 96 HOURS, INCUBATION TO CONTINUE FOR 1 DAYS. 03/03/19 13:34 Blood - Peripheral Venous Blood Culture - Preliminary NO GROWTH OBTAINED AFTER 96 HOURS, INCUBATION TO CONTINUE FOR 1 DAYS. 03/04/19 13:00 Abdomen Gram Stain - Final 03/04/19 13:00 Abdomen Wound Culture - Preliminary Staphylococcus Coagulase Neg Alpha Hemolytic Streptococcus 03/03/19 16:13 Urine - Urine Clean Catch Urine Culture - Final NO GROWTH OBTAINED Problem List - Problems (1) Abdominal pain Assessment/Plan: -Surgery on board -on admission CT scan shows incisional hernia wth containing slightly dilated small bowel loop -wound vac -pain management Code(s): R10.9 - UNSPECIFIED ABDOMINAL PAIN Qualifiers: Abdominal location: unspecified location Qualified Code(s): R10.9 - Unspecified abdominal pain (2) Afib Assessment/Plan: -continue Eliquis and Metoprolol -tele monitoring -cardiology on board Code(s): I48.91 - UNSPECIFIED ATRIAL FIBRILLATION Qualifiers: Atrial fibrillation type: chronic Qualified Code(s): I48.2 - Chronic atrial fibrillation (3) Anemia Assessment/Plan: -Monitor Hg -current Hg 8.7 -Ferrous Sulfate Code(s): D64.9 - ANEMIA, UNSPECIFIED (4) Obesity (BMI 30-39.9) Code(s): E66.9 - OBESITY, UNSPECIFIED (5) S/P left hemicolectomy Assessment/Plan: -surgery on bard -on admission CT scan shows incisional hernia wth containing slightly dilated small bowel loop -wound vac -pain management Code(s): Z90.49 - ACQUIRED ABSENCE OF OTHER SPECIFIED PARTS OF DIGESTIVE TRACT (6) HTN (hypertension) Assessment/Plan: -continue losartan -low Na diet Code(s): I10 - ESSENTIAL (PRIMARY) HYPERTENSION Qualifiers: Hypertension type: essential hypertension Qualified Code(s): I10 - Essential (primary) hypertension (7) Wound dehiscence, surgical Assessment/Plan: -Surgery on board -on admission CT scan shows incisional hernia wth containing slightly dilated small bowel loop -wound vac -pain management -ID on board -continue Augmentin Code(s): T81.31XA - DISRUPTION OF EXTERNAL OPERATION (SURGICAL) WOUND, NEC, INIT Qualifiers: Encounter type: subsequent encounter Qualified Code(s): T81.31XD - Disruption of external operation (surgical) wound, not elsewhere classified, subsequent encounter Assessment/Plan see problem list DVT ppx SNF for rehab when discharge
[2019-03-07] MEDS: AMOX TR/POT CLAV 875MG/125MG TABLETS (FP) PO SCH (16:43)
[2019-03-07] MEDS: ACETAMINOPHEN 325 MG TABLET (FP) PO PRN (17:15)
[2019-03-07] MEDS: MEGESTROL ACETATE 20 MG TABLET PO SCH (18:28)
[2019-03-07] MEDS ORDERED: PT OWN MED DRAWER 7, Y5N ONE (20:53)
[2019-03-07] MEDS: MELATONIN 1 MG TABLET PO SCH (21:06)
[2019-03-07] MEDS: LATANOPROST 0.005% OPHTH SOLN 2.5ML BOTTLE OU SCH (21:08)
[2019-03-07] MEDS ORDERED: MORPHINE SULFATE 2 MG/ML VIAL IVPUSH ONE (21:13)
[2019-03-07] MEDS: ONDANSETRON 4 MG/2 ML VIAL IVPUSH PRN (21:33)
--- NOTE | 2019-03-08 00:09 | CONSULT ---
Consult Consult Specialty:: endocrine Referred by:: dr.iyad beltran Reason for Consultation:: hyperthyroidism - History of Present Illness Chief Complaint: weakness and dizzy History of Present Illness: 83 y/o woman with pmh hyperthyroidism, Colon Ca (s/p Hemicolectomy, 02/2019), HTN , HLD, Afib ( on Eliquis), Diastolic CHF, HLD, . Who presented with abdominal pain wound infection,abscess formation,requiring ivac wound care, - Past Medical History INVENTORY ASSISTANT: Yes: Parkinson's Cardio/Vascular: Yes: AFIB, HTN Pulmonary: Yes: Asthma Gastrointestinal: Yes: Cancer (colon) Endocrine: Yes: Hyperthyroidism Additional Medical History: Glaucoma - Past Surgical History Past Surgical History: Yes: Hysterectomy - Alcohol/Substance Use Hx Alcohol Use: No - Smoking History Smoking history: Never smoked Have you smoked in the past 12 months: No Aproximately how many cigarettes per day: 0 - Social History ADL: Family Assistance History of Recent Travel: No Home Medications - Allergies Allergies/Adverse Reactions: Allergies Allergy/AdvReac Type Severity Reaction Status Date / Time No Known Allergies Allergy Verified 03/03/19 12:50 - Home Medications Home Medications: Ambulatory Orders Bimatoprost [Lumigan] 1 drop OU DAILY 04/09/17 Brimonidine Tartrate/Timolol [Combigan 0.2%-0.5% Eye Drops] 5 ml OU BID Latanoprost 0.005% Eye Drops [Xalatan 0.005% Eye Drops -] 1 drop HS 02/14/19 Methimazole 5 mg PO TID 02/14/19 Acetaminophen [Tylenol .Regular Strength -] 650 mg PO Q6H PRN tablet 03/02/19 Apixaban [Eliquis -] 5 mg PO BID tablet 03/02/19 Ascorbic Acid [Vitamin C -] 500 mg PO DAILY tablet 03/02/19 Docusate Sodium [Colace -] 100 mg PO TID capsule 03/02/19 Ferrous Sulfate [Feosol] 325 mg PO DAILY ud 03/02/19 Losartan Potassium [Cozaar -] 25 mg PO DAILY tablet 03/02/19 Methimazole [Tapazole -] 5 mg PO DAILY tablet 03/02/19 Metoprolol Tartrate [Lopressor -] 50 mg PO BID tablet 03/02/19 Sennosides [Senna -] 1 tab PO BID tablet 03/02/19 Sulfamethoxazole/Trimethoprim [Bactrim Ds -] 1 tab PO BID #20 tablet 03/02/19 Review of Systems - Review of Systems Constitutional: reports: Lethargy, Weakness Eyes: reports: No Symptoms HENT: reports: No Symptoms Neck: reports: No Symptoms Cardiovascular: reports: Shortness of Breath Respiratory: reports: Exercise Intolerance, SOB on Exertion Gastrointestinal: reports: Bloating Genitourinary: reports: No Symptoms Musculoskeletal: reports: No Symptoms Integumentary: reports: No Symptoms Neurological: reports: No Symptoms Endocrine: reports: Unexplained Weight Loss Physical Exam Vital Signs: Vital Signs Temperature 98.6 F 03/07/19 21:47 Pulse Rate 94 H 03/07/19 21:47 Respiratory Rate 20 03/07/19 21:47 Blood Pressure 140/65 03/07/19 21:47 O2 Sat by Pulse Oximetry (%) 94 L 03/07/19 21:00 Constitutional: Yes: Anxious Eyes: Yes: EOM Intact HENT: Yes: Normocephalic Neck: Yes: Trachea Midline Cardiovascular: Yes: Regular Rate and Rhythm Respiratory: Yes: CTA Bilaterally Gastrointestinal: Yes: Tenderness, Epigastrium, Tenderness, Rebound ...Rectal Exam: Yes: Deferred Renal/: Yes: WNL Musculoskeletal: Yes: WNL Extremities: Yes: WNL Neurological: Yes: Alert, Weakness Labs: CBC, BMP 03/07/19 05:30 03/07/19 05:30 Problem List - Problems (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 Code(s): E05.30 - THYROTXCOSIS FROM ECTOPIC THYROID TISSUE W/O THYROTXC CRISIS (2) Abdominal pain Code(s): R10.9 - UNSPECIFIED ABDOMINAL PAIN Qualifiers: Abdominal location: unspecified location Qualified Code(s): R10.9 - Unspecified abdominal pain (3) Anemia Code(s): D64.9 - ANEMIA, UNSPECIFIED (4) Hypokalemia Code(s): E87.6 - HYPOKALEMIA (5) Obesity (BMI 30-39.9) Code(s): E66.9 - OBESITY, UNSPECIFIED (6) S/P left hemicolectomy Code(s): Z90.49 - ACQUIRED ABSENCE OF OTHER SPECIFIED PARTS OF DIGESTIVE TRACT (7) Wound dehiscence, surgical Code(s): T81.31XA - DISRUPTION OF EXTERNAL OPERATION (SURGICAL) WOUND, NEC, INIT Qualifiers: Encounter type: subsequent encounter Qualified Code(s): T81.31XD - Disruption of external operation (surgical) wound, not elsewhere classified, subsequent encounter Assessment/Plan Current Active Problems hyperthyroidism Abdominal pain (Acute) Afib (Acute) Anemia (Acute) Hypokalemia (Acute) Obesity (BMI 30-39.9) (Acute) S/P left hemicolectomy (Acute) Wound dehiscence, surgical (Acute) Abnormal Lab Results 03/07/19 03/07/19 05:30 05:30 Hgb 8.7 L Hct 27.3 L MCV 75.6 L MCH 24.3 L RDW 31.2 H Plt Count 488 H MPV 7.3 L Monocytes % 12.6 H Anion Gap 5 L Calcium 8.3 L Total Protein 4.5 L Albumin 1.6 L Laboratory Results - last 24 hr 03/07/19 03/07/19 05:30 05:30 WBC 6.9 RBC 3.61 Hgb 8.7 L Hct 27.3 L MCV 75.6 L MCH 24.3 L MCHC 32.1 RDW 31.2 H Plt Count 488 H MPV 7.3 L Absolute Neuts (auto) 4.4 Neutrophils % 63.1 Lymphocytes % 20.5 D Monocytes % 12.6 H Eosinophils % 3.2 Basophils % 0.6 Nucleated RBC % 0 Sodium 142 Potassium 3.8 Chloride 105 Carbon Dioxide 32 Anion Gap 5 L BUN 9 Creatinine 0.6 Creat Clearance w eGFR 95.71 Random Glucose 88 Calcium 8.3 L Total Bilirubin 0.4 AST 20 ALT 16 Alkaline Phosphatase 71 Total Protein 4.5 L Albumin 1.6 L Laboratory Tests 03/05/19 05:30 TSH 0.85 Free T4 1.61 H plan: continue methimazole 5mg tid follow tsh and free t4 monthly
[2019-03-08] MEDS: traMADol HCL 50 MG TABLET PO PRN ×2 (05:12→15:01)
[2019-03-08] MEDS: DOCUSATE SODIUM 100 MG CAPSULE (FP) PO SCH ×3 (05:12→21:03)
[2019-03-08] MEDS: METHIMAZOLE 5 MG TABLET (FP) PO SCH ×2 (05:13→15:03)
[2019-03-08] MEDS: AMOX TR/POT CLAV 875MG/125MG TABLETS (FP) PO SCH ×2 (08:21→17:17)
[2019-03-08] MEDS: AMINO ACIDS/PROTEIN HYDROLYS 30 ML LIQUID.PKT PO SCH ×2 (08:22→17:18)
[2019-03-08] MEDS: ACETAMINOPHEN 325 MG TABLET (FP) PO PRN ×2 (08:22→20:30)
[2019-03-08] MEDS: ONDANSETRON 4 MG/2 ML VIAL IVPUSH PRN (08:28)
--- NOTE | 2019-03-08 09:14 | PN ---
Progress Note, Physician History of Present Illness: Afib with improved rate-control after resumption of Lopressor, wound vac draining. - Current Medication List Current Medications: Active Medications Acetaminophen (Tylenol -) 650 mg PO Q4H PRN PRN Reason: PAIN OR FEVER Last Admin: 03/08/19 08:22 Dose: 650 mg Amino Acids (Prosource No Carb Liquid Pkt) 30 ml PO BID@0800,1730 [facility] Last Admin: 03/08/19 08:22 Dose: 30 ml Amoxicillin/Clavulanate Potassium (Augmentin - 875mg Tablet) 1 tab PO BID@0800, 1730 [facility] Last Admin: 03/08/19 08:21 Dose: 1 tab Apixaban (Eliquis -) 5 mg PO BID [facility] Last Admin: 03/07/19 21:06 Dose: 5 mg Ascorbic Acid (Vitamin C -) 500 mg PO DAILY [facility] Last Admin: 03/07/19 09:49 Dose: 500 mg Brimonidine Tartrate (Alphagan 0.2% -) 1 drop OU BID [facility] Last Admin: 03/07/19 21:09 Dose: 1 drop Docusate Sodium (Colace -) 100 mg PO TID [facility] Last Admin: 03/08/19 05:12 Dose: 100 mg Ferrous Sulfate (Feosol -) 325 mg PO DAILY [facility] Last Admin: 03/07/19 09:45 Dose: 325 mg Latanoprost (Xalatan 0.005% Eye Drops -) 1 drop OU HS [facility] Last Admin: 03/07/19 21:08 Dose: 1 drop Losartan Potassium (Cozaar -) 25 mg PO DAILY [facility] Last Admin: 03/07/19 09:46 Dose: Not Given Megestrol Acetate (Megace -) 20 mg PO DAILY [facility] Last Admin: 03/07/19 18:28 Dose: Not Given Melatonin (Melatonin) 3 mg PO HS [facility] Last Admin: 03/07/19 21:06 Dose: 3 mg Methimazole (Tapazole -) 5 mg PO TID [facility] Last Admin: 03/08/19 05:13 Dose: 5 mg Metoprolol Tartrate (Lopressor -) 50 mg PO BID [facility] Last Admin: 03/07/19 21:06 Dose: 50 mg Ondansetron HCl (Zofran Injection) 4 mg IVPUSH Q8H PRN PRN Reason: NAUSEA Last Admin: 03/08/19 08:28 Dose: 4 mg Pantoprazole Sodium (Protonix Packets For Oral Suspension -) 40 mg PO DAILY [facility] Senna (Senna -) 1 tab PO BID [facility] Last Admin: 03/07/19 21:13 Dose: 1 tab Timolol Maleate (Timoptic 0.5%) 1 drop OU BID [facility] Last Admin: 03/07/19 21:08 Dose: 1 drop Tramadol HCl (Ultram -) 50 mg PO Q8H PRN PRN Reason: PAIN LEVEL 7 - 10 Last Admin: 03/08/19 05:12 Dose: 50 mg Zinc Sulfate (Orazinc -) 220 mg PO DAILY [facility] Last Admin: 03/07/19 09:45 Dose: 220 mg - Objective Vital Signs: Vital Signs Temperature 97.6 F 03/08/19 05:15 Pulse Rate 87 03/08/19 05:15 Respiratory Rate 20 03/08/19 05:15 Blood Pressure 123/62 03/08/19 05:15 O2 Sat by Pulse Oximetry (%) 94 L 03/07/19 21:00 Constitutional: Yes: No Distress, Calm Neck: Yes: Supple Cardiovascular: Yes: Pulse Irregular Respiratory: Yes: Regular, CTA Bilaterally Gastrointestinal: Yes: Soft, Abdomen, Obese, Hypoactive Bowel Sounds, Other ( Wound vac in place) Edema: No Labs: CBC, BMP 03/07/19 05:30 03/07/19 05:30 INR, PTT INR 1.34 (0.83-1.09) H 03/04/19 06:00 Problem List - Problems (1) Afib Code(s): I48.91 - UNSPECIFIED ATRIAL FIBRILLATION Qualifiers: Atrial fibrillation type: chronic Qualified Code(s): I48.2 - Chronic atrial fibrillation (2) S/P left hemicolectomy Code(s): Z90.49 - ACQUIRED ABSENCE OF OTHER SPECIFIED PARTS OF DIGESTIVE TRACT (3) Wound dehiscence, surgical Code(s): T81.31XA - DISRUPTION OF EXTERNAL OPERATION (SURGICAL) WOUND, NEC, INIT Qualifiers: Encounter type: subsequent encounter Qualified Code(s): T81.31XD - Disruption of external operation (surgical) wound, not elsewhere classified, subsequent encounter (4) Hyperthyroidism Code(s): E05.90 - THYROTOXICOSIS, UNSP WITHOUT THYROTOXIC CRISIS OR STORM (5) CAD (coronary artery disease) Code(s): I25.10 - ATHSCL HEART DISEASE OF [place] CORONARY ARTERY W/O ANG PCTRS Qualifiers: Coronary Disease-Associated Artery/Lesion type: [place] artery [place] vs. transplanted heart: [place] heart Associated angina: without angina Qualified Code(s): I25.10 - Atherosclerotic heart disease of [place] coronary artery without angina pectoris (6) CVA (cerebral vascular accident) Code(s): I63.9 - CEREBRAL INFARCTION, UNSPECIFIED Qualifiers: CVA mechanism: unspecified Qualified Code(s): I63.9 - Cerebral infarction, unspecified (7) HTN (hypertension) Code(s): I10 - ESSENTIAL (PRIMARY) HYPERTENSION Qualifiers: Hypertension type: essential hypertension Qualified Code(s): I10 - Essential (primary) hypertension Assessment/Plan 02/04/2018 Echo: Normal LV systolic function, mild LVH, mildly dilated ascending thoacic aorta, tr MR, tr TR and trace pericardial effusion DON: Normal LV size and fxn, mild MR, TR, mod AR, tr-mild [place] 1. Post hemicolectomy for colon CA with post-op wound infection and bowel herniation into dehiscence site 2. Persistent AF with RVR on DOAC 3. HTN 4. DM 5. Parkinson's disease 6. Hyperthyroidism PLAN: 1. Complete empiric antibiotic course 2. Continue Eliquis 5 bid 3. Continue Lopressor 50 bid and Cozaar 25 qd as hemodynamics tolerated 4. Continue Tapazole 5 tid 5. Surgery input noted. Continue wound vac care and supportive care D
[2019-03-08] MEDS: PANTOPRAZOLE SOD 40 MG SUSPENSION PACKET PO SCH (09:46)
[2019-03-08] MEDS: APIXABAN 5 MG TABLET PO SCH ×2 (09:46→21:04)
[2019-03-08] MEDS: SENNOSIDES 8.6MG TABLET (FP) PO SCH ×2 (09:46→21:04)
[2019-03-08] MEDS: ZINC SULFATE 220 MG CAPSULE (FP) PO SCH (09:46)
[2019-03-08] MEDS: ASCORBIC ACID 500 MG TABLET (FP) PO SCH (09:46)
[2019-03-08] MEDS: LOSARTAN POTASSIUM 25 MG TABLET PO SCH (09:46)
[2019-03-08] MEDS: FERROUS SO4 325 MG TABLET (FP) PO SCH (09:46)
[2019-03-08] MEDS: METOPROLOL TARTRATE 50 MG TABLET (FP) PO SCH ×2 (09:46→21:04)
[2019-03-08] MEDS: MEGESTROL ACETATE 20 MG TABLET PO SCH (09:47)
[2019-03-08] MEDS: TIMOLOL 0.5% OPHTHALMIC SOL 5 ML BOTTLE OU SCH ×2 (09:57→21:04)
[2019-03-08] MEDS: BRIMONIDINE TARTRATE 0.2% OPHTHALMIC 5 ML BOTTLE OU SCH ×2 (09:58→21:03)
--- NOTE | 2019-03-08 11:38 | PN ---
Progress Note (short form) - Note Progress Note: Attending Surgeon POD#16 No c/o; tolerating diet; having BM's VSS AF abdo-soft; proximal wound granulating and w/seropurulent(minimal) drainage; distal wound granulating and exposed loop of small bowel w/overlying granulation tissue WBC-normal IMP: stable PLAN: Cont VAC at 75mmHg; patient is a prohibitive risk for return to OR and has a controlled dehiscense. John Alvarado MD FACS
--- NOTE | 2019-03-08 12:27 | PN ---
Progress Note, Physician History of Present Illness: stable no new issues - Current Medication List Current Medications: Active Medications Acetaminophen (Tylenol -) 650 mg PO Q4H PRN PRN Reason: PAIN OR FEVER Last Admin: 03/08/19 08:22 Dose: 650 mg Amino Acids (Prosource No Carb Liquid Pkt) 30 ml PO BID@0800,1730 [facility] Last Admin: 03/08/19 08:22 Dose: 30 ml Amoxicillin/Clavulanate Potassium (Augmentin - 875mg Tablet) 1 tab PO BID@0800, 1730 [facility] Last Admin: 03/08/19 08:21 Dose: 1 tab Apixaban (Eliquis -) 5 mg PO BID [facility] Last Admin: 03/08/19 09:46 Dose: 5 mg Ascorbic Acid (Vitamin C -) 500 mg PO DAILY [facility] Last Admin: 03/08/19 09:46 Dose: 500 mg Brimonidine Tartrate (Alphagan 0.2% -) 1 drop OU BID [facility] Last Admin: 03/08/19 09:58 Dose: 1 drop Docusate Sodium (Colace -) 100 mg PO TID [facility] Last Admin: 03/08/19 05:12 Dose: 100 mg Ferrous Sulfate (Feosol -) 325 mg PO DAILY [facility] Last Admin: 03/08/19 09:46 Dose: 325 mg Latanoprost (Xalatan 0.005% Eye Drops -) 1 drop OU [facility] Last Admin: 03/07/19 21:08 Dose: 1 drop Losartan Potassium (Cozaar -) 25 mg PO DAILY [facility] Last Admin: 03/08/19 09:46 Dose: 25 mg Megestrol Acetate (Megace -) 20 mg PO DAILY [facility] Last Admin: 03/08/19 09:47 Dose: 20 mg Melatonin (Melatonin) 3 mg PO HS [facility] Last Admin: 03/07/19 21:06 Dose: 3 mg Methimazole (Tapazole -) 5 mg PO TID [facility] Last Admin: 03/08/19 05:13 Dose: 5 mg Metoprolol Tartrate (Lopressor -) 50 mg PO BID [facility] Last Admin: 03/08/19 09:46 Dose: 50 mg Ondansetron HCl (Zofran Injection) 4 mg IVPUSH Q8H PRN PRN Reason: NAUSEA Last Admin: 03/08/19 08:28 Dose: 4 mg Pantoprazole Sodium (Protonix Packets For Oral Suspension -) 40 mg PO DAILY [facility] Last Admin: 03/08/19 09:46 Dose: 40 mg Senna (Senna -) 1 tab PO BID [facility] Last Admin: 03/08/19 09:46 Dose: 1 tab Timolol Maleate (Timoptic 0.5%) 1 drop OU BID [facility] Last Admin: 03/08/19 09:57 Dose: 1 drop Tramadol HCl (Ultram -) 50 mg PO Q8H PRN PRN Reason: PAIN LEVEL 7 - 10 Last Admin: 03/08/19 05:12 Dose: 50 mg Zinc Sulfate (Orazinc -) 220 mg PO DAILY [facility] Last Admin: 03/08/19 09:46 Dose: 220 mg - Objective Vital Signs: Vital Signs Temperature 98 F 03/08/19 10:00 Pulse Rate 84 03/08/19 10:00 Respiratory Rate 18 03/08/19 10:00 Blood Pressure 133/68 03/08/19 10:00 O2 Sat by Pulse Oximetry (%) 94 L 03/07/19 21:00 Constitutional: Yes: No Distress, Calm, Obese Cardiovascular: Yes: Regular Rate and Rhythm Respiratory: Yes: Regular, CTA Bilaterally Gastrointestinal: Yes: Normal Bowel Sounds, Soft Musculoskeletal: Yes: WNL Extremities: Yes: WNL Wound/Incision: Yes: Dressing Dry and Intact Neurological: Yes: Alert, Oriented Psychiatric: Yes: Alert Labs: CBC, BMP 03/07/19 05:30 03/07/19 05:30 INR, PTT INR 1.34 (0.83-1.09) H 03/04/19 06:00 Assessment/Plan Problem List - Problems (1) Abdominal pain Code(s): R10.9 - UNSPECIFIED ABDOMINAL PAIN Qualifiers: Abdominal location: unspecified location Qualified Code(s): R10.9 - Unspecified abdominal pain (2) Obesity (BMI 30-39.9) Code(s): E66.9 - OBESITY, UNSPECIFIED (3) S/P left hemicolectomy Code(s): Z90.49 - ACQUIRED ABSENCE OF OTHER SPECIFIED PARTS OF DIGESTIVE TRACT (4) Colonic mass Code(s): K63.9 - DISEASE OF INTESTINE, UNSPECIFIED (5) Hyperthyroidism Code(s): E05.90 - THYROTOXICOSIS, UNSP WITHOUT THYROTOXIC CRISIS OR STORM (6) New onset atrial fibrillation Code(s): I48.91 - UNSPECIFIED ATRIAL FIBRILLATION (7) Acute on chronic diastolic (congestive) heart failure Code(s): I50.33 - ACUTE ON CHRONIC DIASTOLIC (CONGESTIVE) HEART FAILURE (8) Asthma Code(s): J45.909 - UNSPECIFIED ASTHMA, UNCOMPLICATED Qualifiers: Asthma severity: mild Asthma persistence: intermittent Asthma complication type: unspecified Qualified Code(s): J45.20 - Mild intermittent asthma, uncomplicated (9) CAD (coronary artery disease) Code(s): I25.10 - ATHSCL HEART DISEASE OF [place] CORONARY ARTERY W/O ANG PCTRS Qualifiers: Coronary Disease-Associated Artery/Lesion type: [place] artery [place] vs. transplanted heart: [place] heart Associated angina: without angina Qualified Code(s): I25.10 - Atherosclerotic heart disease of [place] coronary artery without angina pectoris (10) Diabetes mellitus Code(s): E11.9 - TYPE 2 DIABETES MELLITUS WITHOUT COMPLICATIONS Qualifiers: Diabetes mellitus type: type 2 Diabetes mellitus terminal block assembler insulin use: without terminal block assembler use Diabetes mellitus complication status: without complication Qualified Code(s): E11.9 - Type 2 diabetes mellitus without complications (11) HTN (hypertension) Code(s): I10 - ESSENTIAL (PRIMARY) HYPERTENSION Qualifiers: Hypertension type: essential hypertension Qualified Code(s): I10 - Essential (primary) hypertension (12) Parkinson disease Code(s): G20 - PARKINSON'S DISEASE Assessment/Plan 83 y.o. female with PMH of DM, AFIB, HTN, HLD, CHF, hyperthyroidism, and Colon CA s/p Lt hemicolectomy on 02/22/19 with post-op wound infection discharged home on 03/02/19 on po antibiotics presenting with abd pain, purulent discharge from wound dehiscence site. CT Abd with bowel herniation into dehiscence site. Post-op Wound Infection Bowel herniation into wound s/p hemicolectomy for Colon CA DM AFIB CAD CHF HTN HLD Hyperthyroidism plan continue oral abx rest as per the team
--- NOTE | 2019-03-08 13:17 | PN ---
Progress Note, Physician Chief Complaint: patient seen and examined awaiting authorization to OR - Current Medication List Current Medications: Active Medications Acetaminophen (Tylenol -) 650 mg PO Q4H PRN PRN Reason: PAIN OR FEVER Last Admin: 03/08/19 08:22 Dose: 650 mg Amino Acids (Prosource No Carb Liquid Pkt) 30 ml PO BID@0800,1730 [facility] Last Admin: 03/08/19 08:22 Dose: 30 ml Amoxicillin/Clavulanate Potassium (Augmentin - 875mg Tablet) 1 tab PO BID@0800, 1730 [facility] Last Admin: 03/08/19 08:21 Dose: 1 tab Apixaban (Eliquis -) 5 mg PO BID [facility] Last Admin: 03/08/19 09:46 Dose: 5 mg Ascorbic Acid (Vitamin C -) 500 mg PO DAILY [facility] Last Admin: 03/08/19 09:46 Dose: 500 mg Brimonidine Tartrate (Alphagan 0.2% -) 1 drop OU BID [facility] Last Admin: 03/08/19 09:58 Dose: 1 drop Docusate Sodium (Colace -) 100 mg PO TID [facility] Last Admin: 03/08/19 05:12 Dose: 100 mg Ferrous Sulfate (Feosol -) 325 mg PO DAILY [facility] Last Admin: 03/08/19 09:46 Dose: 325 mg Latanoprost (Xalatan 0.005% Eye Drops -) 1 drop OU [facility] Last Admin: 03/07/19 21:08 Dose: 1 drop Losartan Potassium (Cozaar -) 25 mg PO DAILY [facility] Last Admin: 03/08/19 09:46 Dose: 25 mg Megestrol Acetate (Megace -) 20 mg PO DAILY [facility] Last Admin: 03/08/19 09:47 Dose: 20 mg Melatonin (Melatonin) 3 mg PO HS [facility] Last Admin: 03/07/19 21:06 Dose: 3 mg Methimazole (Tapazole -) 5 mg PO TID [facility] Last Admin: 03/08/19 05:13 Dose: 5 mg Metoprolol Tartrate (Lopressor -) 50 mg PO BID [facility] Last Admin: 03/08/19 09:46 Dose: 50 mg Ondansetron HCl (Zofran Injection) 4 mg IVPUSH Q8H PRN PRN Reason: NAUSEA Last Admin: 03/08/19 08:28 Dose: 4 mg Pantoprazole Sodium (Protonix Packets For Oral Suspension -) 40 mg PO DAILY [facility] Last Admin: 03/08/19 09:46 Dose: 40 mg Senna (Senna -) 1 tab PO BID [facility] Last Admin: 03/08/19 09:46 Dose: 1 tab Timolol Maleate (Timoptic 0.5%) 1 drop OU BID [facility] Last Admin: 03/08/19 09:57 Dose: 1 drop Tramadol HCl (Ultram -) 50 mg PO Q8H PRN PRN Reason: PAIN LEVEL 7 - 10 Last Admin: 03/08/19 05:12 Dose: 50 mg Zinc Sulfate (Orazinc -) 220 mg PO DAILY [facility] Last Admin: 03/08/19 09:46 Dose: 220 mg - Objective Vital Signs: Vital Signs Temperature 98 F 03/08/19 10:00 Pulse Rate 84 03/08/19 10:00 Respiratory Rate 18 03/08/19 10:00 Blood Pressure 133/68 03/08/19 10:00 O2 Sat by Pulse Oximetry (%) 94 L 03/07/19 21:00 Constitutional: Yes: Calm Neck: Yes: Trachea Midline Cardiovascular: Yes: Regular Rate and Rhythm, S1, S2 Respiratory: Yes: CTA Bilaterally Gastrointestinal: Yes: Soft, Other (wound vac) Neurological: Yes: Alert, Oriented Labs: CBC, BMP 03/07/19 05:30 03/07/19 05:30 INR, PTT INR 1.34 (0.83-1.09) H 03/04/19 06:00 Problem List - Problems (1) Wound dehiscence, surgical Assessment/Plan: wond vac oral abx x high protein diet zinc prostat Code(s): T81.31XA - DISRUPTION OF EXTERNAL OPERATION (SURGICAL) WOUND, NEC, INIT Qualifiers: Encounter type: subsequent encounter Qualified Code(s): T81.31XD - Disruption of external operation (surgical) wound, not elsewhere classified, subsequent encounter (2) Afib Assessment/Plan: eliquis and lopressor Code(s): I48.91 - UNSPECIFIED ATRIAL FIBRILLATION Qualifiers: Atrial fibrillation type: chronic Qualified Code(s): I48.2 - Chronic atrial fibrillation (3) Hyperthyroidism Assessment/Plan: methimazole 5mg po tid seen by endocrine Code(s): E05.90 - THYROTOXICOSIS, UNSP WITHOUT THYROTOXIC CRISIS OR STORM (4) Anemia Assessment/Plan: oral iron Code(s): D64.9 - ANEMIA, UNSPECIFIED (5) Glaucoma Assessment/Plan: eye drops Code(s): H40.9 - UNSPECIFIED GLAUCOMA Assessment/Plan awaiting authorization for SNF
[2019-03-08] MEDS: LATANOPROST 0.005% OPHTH SOLN 2.5ML BOTTLE OU SCH (21:04)
[2019-03-08] MEDS: MELATONIN 1 MG TABLET PO SCH (21:04)
[2019-03-09] MEDS: traMADol HCL 50 MG TABLET PO PRN ×3 (03:00→20:37)
[2019-03-09] MEDS: DOCUSATE SODIUM 100 MG CAPSULE (FP) PO SCH ×3 (06:02→22:33)
[2019-03-09] MEDS: ACETAMINOPHEN 325 MG TABLET (FP) PO PRN ×3 (06:03→22:30)
[2019-03-09] MEDS ORDERED: PT OWN MED DRAWER 7, Y5N ONE ×2 (08:29→18:22)
[2019-03-09] MEDS: AMINO ACIDS/PROTEIN HYDROLYS 30 ML LIQUID.PKT PO SCH ×2 (08:46→17:11)
[2019-03-09] MEDS: AMOX TR/POT CLAV 875MG/125MG TABLETS (FP) PO SCH ×2 (08:46→17:11)
[2019-03-09] MEDS ORDERED: METHIMAZOLE 5 MG TABLET (FP) PO SCH (10:00)
[2019-03-09] MEDS: METOPROLOL TARTRATE 50 MG TABLET (FP) PO SCH ×2 (10:25→22:41)
[2019-03-09] MEDS: SENNOSIDES 8.6MG TABLET (FP) PO SCH ×2 (10:25→22:34)
[2019-03-09] MEDS: LOSARTAN POTASSIUM 25 MG TABLET PO SCH (10:26)
[2019-03-09] MEDS: PANTOPRAZOLE SOD 40 MG SUSPENSION PACKET PO SCH (10:26)
[2019-03-09] MEDS: ASCORBIC ACID 500 MG TABLET (FP) PO SCH (10:26)
[2019-03-09] MEDS: ZINC SULFATE 220 MG CAPSULE (FP) PO SCH (10:26)
[2019-03-09] MEDS: APIXABAN 5 MG TABLET PO SCH ×2 (10:26→22:33)
[2019-03-09] MEDS: FERROUS SO4 325 MG TABLET (FP) PO SCH (10:26)
[2019-03-09] MEDS: TIMOLOL 0.5% OPHTHALMIC SOL 5 ML BOTTLE OU SCH ×2 (10:27→23:09)
[2019-03-09] MEDS: BRIMONIDINE TARTRATE 0.2% OPHTHALMIC 5 ML BOTTLE OU SCH ×2 (10:27→23:09)
--- NOTE | 2019-03-09 11:58 | PN ---
Progress Note, Physician History of Present Illness: stable doing well no new issues - Current Medication List Current Medications: Active Medications Acetaminophen (Tylenol -) 650 mg PO Q4H PRN PRN Reason: PAIN OR FEVER Last Admin: 03/09/19 06:03 Dose: 650 mg Amino Acids (Prosource No Carb Liquid Pkt) 30 ml PO BID@0800,1730 [facility] Last Admin: 03/09/19 08:46 Dose: 30 ml Amoxicillin/Clavulanate Potassium (Augmentin - 875mg Tablet) 1 tab PO BID@0800, 1730 [facility] Last Admin: 03/09/19 08:46 Dose: 1 tab Apixaban (Eliquis -) 5 mg PO BID [facility] Last Admin: 03/09/19 10:26 Dose: 5 mg Ascorbic Acid (Vitamin C -) 500 mg PO DAILY [facility] Last Admin: 03/09/19 10:26 Dose: 500 mg Brimonidine Tartrate (Alphagan 0.2% -) 1 drop OU BID [facility] Last Admin: 03/09/19 10:27 Dose: 1 drop Docusate Sodium (Colace -) 100 mg PO TID [facility] Last Admin: 03/09/19 06:02 Dose: 100 mg Ferrous Sulfate (Feosol -) 325 mg PO DAILY [facility] Last Admin: 03/09/19 10:26 Dose: 325 mg Latanoprost (Xalatan 0.005% Eye Drops -) 1 drop OU HS [facility] Last Admin: 03/08/19 21:04 Dose: 1 drop Losartan Potassium (Cozaar -) 25 mg PO DAILY [facility] Last Admin: 03/09/19 10:26 Dose: 25 mg Megestrol Acetate (Megace -) 20 mg PO DAILY [facility] Last Admin: 03/08/19 09:47 Dose: 20 mg Melatonin (Melatonin) 3 mg PO HS [facility] Last Admin: 03/08/19 21:04 Dose: 3 mg Methimazole (Tapazole -) 5 mg PO DAILY [facility] Last Admin: 03/09/19 10:27 Dose: 5 mg Metoprolol Tartrate (Lopressor -) 50 mg PO BID [facility] Last Admin: 03/09/19 10:25 Dose: 50 mg Ondansetron HCl (Zofran Injection) 4 mg IVPUSH Q8H PRN PRN Reason: NAUSEA Last Admin: 03/08/19 08:28 Dose: 4 mg Pantoprazole Sodium (Protonix Packets For Oral Suspension -) 40 mg PO DAILY [facility] Last Admin: 03/09/19 10:26 Dose: 40 mg Senna (Senna -) 1 tab PO BID [facility] Last Admin: 03/09/19 10:25 Dose: 1 tab Timolol Maleate (Timoptic 0.5%) 1 drop OU BID [facility] Last Admin: 03/09/19 10:27 Dose: 1 drop Tramadol HCl (Ultram -) 50 mg PO Q8H PRN PRN Reason: PAIN LEVEL 7 - 10 Last Admin: 03/09/19 10:24 Dose: 50 mg Zinc Sulfate (Orazinc -) 220 mg PO DAILY [facility] Last Admin: 03/09/19 10:26 Dose: 220 mg - Objective Vital Signs: Vital Signs Temperature 98 F 03/09/19 09:45 Pulse Rate 86 03/09/19 09:45 Respiratory Rate 20 03/09/19 09:45 Blood Pressure 130/70 03/09/19 09:45 O2 Sat by Pulse Oximetry (%) 100 03/08/19 20:14 Constitutional: Yes: No Distress, Calm, Obese Cardiovascular: Yes: S1, S2 Gastrointestinal: Yes: Normal Bowel Sounds, Soft Musculoskeletal: Yes: WNL Extremities: Yes: WNL Neurological: Yes: Alert, Oriented Psychiatric: Yes: Alert, Oriented Labs: CBC, BMP 03/07/19 05:30 03/07/19 05:30 INR, PTT INR 1.34 (0.83-1.09) H 03/04/19 06:00 Assessment/Plan Problem List - Problems (1) Abdominal pain Code(s): R10.9 - UNSPECIFIED ABDOMINAL PAIN Qualifiers: Abdominal location: unspecified location Qualified Code(s): R10.9 - Unspecified abdominal pain (2) Obesity (BMI 30-39.9) Code(s): E66.9 - OBESITY, UNSPECIFIED (3) S/P left hemicolectomy Code(s): Z90.49 - ACQUIRED ABSENCE OF OTHER SPECIFIED PARTS OF DIGESTIVE TRACT (4) Colonic mass Code(s): K63.9 - DISEASE OF INTESTINE, UNSPECIFIED (5) Hyperthyroidism Code(s): E05.90 - THYROTOXICOSIS, UNSP WITHOUT THYROTOXIC CRISIS OR STORM (6) New onset atrial fibrillation Code(s): I48.91 - UNSPECIFIED ATRIAL FIBRILLATION (7) Acute on chronic diastolic (congestive) heart failure Code(s): I50.33 - ACUTE ON CHRONIC DIASTOLIC (CONGESTIVE) HEART FAILURE (8) Asthma Code(s): J45.909 - UNSPECIFIED ASTHMA, UNCOMPLICATED Qualifiers: Asthma severity: mild Asthma persistence: intermittent Asthma complication type: unspecified Qualified Code(s): J45.20 - Mild intermittent asthma, uncomplicated (9) CAD (coronary artery disease) Code(s): I25.10 - ATHSCL HEART DISEASE OF [place] CORONARY ARTERY W/O ANG PCTRS Qualifiers: Coronary Disease-Associated Artery/Lesion type: [place] artery [place] vs. transplanted heart: [place] heart Associated angina: without angina Qualified Code(s): I25.10 - Atherosclerotic heart disease of [place] coronary artery without angina pectoris (10) Diabetes mellitus Code(s): E11.9 - TYPE 2 DIABETES MELLITUS WITHOUT COMPLICATIONS Qualifiers: Diabetes mellitus type: type 2 Diabetes mellitus nursing home insulin use: without nursing home use Diabetes mellitus complication status: without complication Qualified Code(s): E11.9 - Type 2 diabetes mellitus without complications (11) HTN (hypertension) Code(s): I10 - ESSENTIAL (PRIMARY) HYPERTENSION Qualifiers: Hypertension type: essential hypertension Qualified Code(s): I10 - Essential (primary) hypertension (12) Parkinson disease Code(s): G20 - PARKINSON'S DISEASE Assessment/Plan 83 y.o. female with PMH of DM, AFIB, HTN, HLD, CHF, hyperthyroidism, and Colon CA s/p Lt hemicolectomy on 02/22/19 with post-op wound infection discharged home on 03/02/19 on po antibiotics presenting with abd pain, purulent discharge from wound dehiscence site. CT Abd with bowel herniation into dehiscence site. Post-op Wound Infection Bowel herniation into wound s/p hemicolectomy for Colon CA DM AFIB CAD CHF HTN HLD Hyperthyroidism plan continue oral abx rest as per the team wound care
--- NOTE | 2019-03-09 12:02 | DS ---
Physical Examination Vital Signs: Vital Signs Temperature 98 F 03/09/19 09:45 Pulse Rate 86 03/09/19 09:45 Respiratory Rate 20 03/09/19 09:45 Blood Pressure 130/70 03/09/19 09:45 O2 Sat by Pulse Oximetry (%) 100 03/08/19 20:14 Constitutional: Yes: Calm Cardiovascular: Yes: Regular Rate and Rhythm, S1, S2 Respiratory: Yes: CTA Bilaterally, Diminished (at the bases), On Nasal O2 Gastrointestinal: Yes: Soft, Other (wound vac in place) Edema: No Neurological: Yes: Alert, Oriented Labs: CBC, BMP 03/07/19 05:30 03/07/19 05:30 Discharge Summary Reason For Visit: STATUS POST LEFT HEMICOLECTOMY,ABD PAIN Current Active Problems Abdominal pain (Acute) Afib (Acute) Anemia (Acute) Glaucoma (Acute) Hypokalemia (Acute) Obesity (BMI 30-39.9) (Acute) S/P left hemicolectomy (Acute) 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 Who presents to the ED with her daughters for abdominal pain. The patient who is [place] speaking, had her 2 daughters at bedside who provided HPI. Per the daughter the patient was diagnosed with Colon Ca had a L- Hemicolectomy and was discharged 03/02 to [facility]. The daughter discussed her concerns that her mother's pain was not being addressed and that her care was not to her satisfaction, she requested to have the ambulance bring the patient to the ED for evaluation. Per the daughter: The patient continued to pass flatus and has had bowel movements. The daughter reports that the patient was nauseous and had drainage coming from the surgical wounds. The daughter denies the patient having fevers, chills, dizziness, CERRATO, SOB, CP, palpitations, vomiting, diarrhea, dysuria. admitted to telemetry: seen by ID started on iv abx zosyn vancomycin then change to po augmentin wound vac applied with white foam at 75mmhg hypertyroidism: methimazole 5mg tid seenby cardiology pateint michel go to facility where she annetta have KCI machine for the wound on po augmentin Condition: Stable - Instructions Disposition: ASSISTED FACILITY - Home Medications Comprehensive Discharge Medication List: Ambulatory Orders Bimatoprost [Lumigan] 1 drop OU DAILY 04/09/17 Brimonidine Tartrate/Timolol [Combigan 0.2%-0.5% Eye Drops] 5 ml OU BID Latanoprost 0.005% Eye Drops [Xalatan 0.005% Eye Drops -] 1 drop HS 02/14/19 Methimazole 5 mg PO TID 02/14/19 Acetaminophen [Tylenol .Regular Strength -] 650 mg PO Q6H PRN tablet 03/02/19 Apixaban [Eliquis -] 5 mg PO BID tablet 03/02/19 Ascorbic Acid [Vitamin C -] 500 mg PO DAILY tablet 03/02/19 Docusate Sodium [Colace -] 100 mg PO TID capsule 03/02/19 Ferrous Sulfate [Feosol] 325 mg PO DAILY ud 03/02/19 Losartan Potassium [Cozaar -] 25 mg PO DAILY tablet 03/02/19 Methimazole [Tapazole -] 5 mg PO DAILY tablet 03/02/19 Metoprolol Tartrate [Lopressor -] 50 mg PO BID tablet 03/02/19 Sennosides [Senna -] 1 tab PO BID tablet 03/02/19 Sulfamethoxazole/Trimethoprim [Bactrim Ds -] 1 tab PO BID #20 tablet 03/02/19
--- NOTE | 2019-03-09 12:18 | PN ---
Progress Note (short form) - Note Progress Note: patient needs KCI machine for wound can only go to facilty which is in network awaiting authoirization daughter is aware Problem List - Problems (1) Wound dehiscence, surgical Code(s): T81.31XA - DISRUPTION OF EXTERNAL OPERATION (SURGICAL) WOUND, NEC, INIT Qualifiers: Encounter type: subsequent encounter Qualified Code(s): T81.31XD - Disruption of external operation (surgical) wound, not elsewhere classified, subsequent encounter (2) Afib Code(s): I48.91 - UNSPECIFIED ATRIAL FIBRILLATION Qualifiers: Atrial fibrillation type: chronic Qualified Code(s): I48.2 - Chronic atrial fibrillation (3) Hyperthyroidism Code(s): E05.90 - THYROTOXICOSIS, UNSP WITHOUT THYROTOXIC CRISIS OR STORM (4) Anemia Code(s): D64.9 - ANEMIA, UNSPECIFIED (5) Glaucoma Code(s): H40.9 - UNSPECIFIED GLAUCOMA
--- NOTE | 2019-03-09 15:51 | PN ---
Progress Note, Physician History of Present Illness: Remains in rate-controlled afib after resumption of Lopressor, wound vac draining. - Current Medication List Current Medications: Active Medications Acetaminophen (Tylenol -) 650 mg PO Q4H PRN PRN Reason: PAIN OR FEVER Last Admin: 03/09/19 14:44 Dose: 650 mg Amino Acids (Prosource No Carb Liquid Pkt) 30 ml PO BID@0800,1730 [facility] Last Admin: 03/09/19 08:46 Dose: 30 ml Amoxicillin/Clavulanate Potassium (Augmentin - 875mg Tablet) 1 tab PO BID@0800, 1730 [facility] Last Admin: 03/09/19 08:46 Dose: 1 tab Apixaban (Eliquis -) 5 mg PO BID [facility] Last Admin: 03/09/19 10:26 Dose: 5 mg Ascorbic Acid (Vitamin C -) 500 mg PO DAILY [facility] Last Admin: 03/09/19 10:26 Dose: 500 mg Brimonidine Tartrate (Alphagan 0.2% -) 1 drop OU BID [facility] Last Admin: 03/09/19 10:27 Dose: 1 drop Docusate Sodium (Colace -) 100 mg PO TID [facility] Last Admin: 03/09/19 14:44 Dose: 100 mg Ferrous Sulfate (Feosol -) 325 mg PO DAILY [facility] Last Admin: 03/09/19 10:26 Dose: 325 mg Latanoprost (Xalatan 0.005% Eye Drops -) 1 drop OU HS [facility] Last Admin: 03/08/19 21:04 Dose: 1 drop Losartan Potassium (Cozaar -) 25 mg PO DAILY [facility] Last Admin: 03/09/19 10:26 Dose: 25 mg Megestrol Acetate (Megace -) 20 mg PO DAILY [facility] Last Admin: 03/08/19 09:47 Dose: 20 mg Melatonin (Melatonin) 3 mg PO HS [facility] Last Admin: 03/08/19 21:04 Dose: 3 mg Methimazole (Tapazole -) 5 mg PO DAILY [facility] Last Admin: 03/09/19 10:27 Dose: 5 mg Metoprolol Tartrate (Lopressor -) 50 mg PO BID [facility] Last Admin: 03/09/19 10:25 Dose: 50 mg Ondansetron HCl (Zofran Injection) 4 mg IVPUSH Q8H PRN PRN Reason: NAUSEA Last Admin: 03/08/19 08:28 Dose: 4 mg Pantoprazole Sodium (Protonix Packets For Oral Suspension -) 40 mg PO DAILY [facility] Last Admin: 03/09/19 10:26 Dose: 40 mg Senna (Senna -) 1 tab PO BID [facility] Last Admin: 03/09/19 10:25 Dose: 1 tab Timolol Maleate (Timoptic 0.5%) 1 drop OU BID [facility] Last Admin: 03/09/19 10:27 Dose: 1 drop Tramadol HCl (Ultram -) 50 mg PO Q8H PRN PRN Reason: PAIN LEVEL 7 - 10 Last Admin: 03/09/19 10:24 Dose: 50 mg Zinc Sulfate (Orazinc -) 220 mg PO DAILY [facility] Last Admin: 03/09/19 10:26 Dose: 220 mg - Objective Vital Signs: Vital Signs Temperature 98 F 03/09/19 09:45 Pulse Rate 86 03/09/19 12:00 Respiratory Rate 20 03/09/19 12:00 Blood Pressure 136/78 03/09/19 12:00 O2 Sat by Pulse Oximetry (%) 100 03/09/19 09:00 Constitutional: Yes: No Distress, Calm Neck: Yes: Supple Cardiovascular: Yes: Pulse Irregular Respiratory: Yes: Regular, Diminished Gastrointestinal: Yes: Normal Bowel Sounds, Soft, Abdomen, Obese Edema: Yes Edema: LLE: Trace, RLE: Trace Labs: CBC, BMP 03/07/19 05:30 03/07/19 05:30 INR, PTT INR 1.34 (0.83-1.09) H 03/04/19 06:00 Problem List - Problems (1) Afib Code(s): I48.91 - UNSPECIFIED ATRIAL FIBRILLATION Qualifiers: Atrial fibrillation type: chronic Qualified Code(s): I48.2 - Chronic atrial fibrillation (2) S/P left hemicolectomy Code(s): Z90.49 - ACQUIRED ABSENCE OF OTHER SPECIFIED PARTS OF DIGESTIVE TRACT (3) Wound dehiscence, surgical Code(s): T81.31XA - DISRUPTION OF EXTERNAL OPERATION (SURGICAL) WOUND, NEC, INIT Qualifiers: Encounter type: subsequent encounter Qualified Code(s): T81.31XD - Disruption of external operation (surgical) wound, not elsewhere classified, subsequent encounter (4) Hyperthyroidism Code(s): E05.90 - THYROTOXICOSIS, UNSP WITHOUT THYROTOXIC CRISIS OR STORM (5) CAD (coronary artery disease) Code(s): I25.10 - ATHSCL HEART DISEASE OF [place] CORONARY ARTERY W/O ANG PCTRS Qualifiers: Coronary Disease-Associated Artery/Lesion type: [place] artery [place] vs. transplanted heart: [place] heart Associated angina: without angina Qualified Code(s): I25.10 - Atherosclerotic heart disease of [place] coronary artery without angina pectoris (6) CVA (cerebral vascular accident) Code(s): I63.9 - CEREBRAL INFARCTION, UNSPECIFIED Qualifiers: CVA mechanism: unspecified Qualified Code(s): I63.9 - Cerebral infarction, unspecified (7) HTN (hypertension) Code(s): I10 - ESSENTIAL (PRIMARY) HYPERTENSION Qualifiers: Hypertension type: essential hypertension Qualified Code(s): I10 - Essential (primary) hypertension Assessment/Plan 02/04/2018 Echo: Normal LV systolic function, mild LVH, mildly dilated ascending thoacic aorta, tr MR, tr TR and trace pericardial effusion DON: Normal LV size and fxn, mild MR, TR, mod [place], tr-mild [place] 1. Post hemicolectomy for colon CA with post-op wound infection and bowel herniation into dehiscence site 2. Persistent AF with RVR on DOAC 3. HTN 4. DM 5. Parkinson's disease 6. Hyperthyroidism PLAN: 1. Complete empiric antibiotic course 2. Continue Eliquis 5 bid 3. Continue Lopressor 50 bid and Cozaar 25 qd as hemodynamics tolerated 4. Continue Tapazole 5 tid 5. Surgery input noted. Continue wound vac care and supportive care, d/c telemetry, d/c planning D
--- NOTE | 2019-03-09 16:34 | PN ---
Progress Note (short form) - Note Progress Note: Wound vac changed. Pt with approx [id number] supra-umbilical opening with copious sero-purulent drainage expressed. Decision made to pack proximal portion of the wound with dry 4x4s, ABD and paper tape. Wound vac replaced on distal portion of wound (white foam over bowel covered by black foam). Keep wound vac at 75mmHg. Discussed dressing change for proximal portion of wound at length with RN. Aware to change proximal portion daily. Wound vac will be changed by surgery Tuesday. Above d/w attending Dr Alvarado
[2019-03-09] MEDS: MEGESTROL ACETATE 20 MG TABLET PO SCH (18:23)
[2019-03-09] MEDS ORDERED: traMADol HCL 50 MG TABLET PO PRN (21:08)
[2019-03-09] MEDS ORDERED: ACETAMINOPHEN 325 MG TABLET (FP) PO PRN (21:08)
[2019-03-09] MEDS ORDERED: METOPROLOL TARTRATE 50 MG TABLET (FP) PO SCH (22:00)
[2019-03-09] MEDS ORDERED: POTASSIUM CHLORIDE TABS 10 MEQ TABLET.ER (FP) PO ONE (22:00)
[2019-03-09] MEDS: MELATONIN 1 MG TABLET PO SCH (23:06)
[2019-03-09] MEDS: LATANOPROST 0.005% OPHTH SOLN 2.5ML BOTTLE OU SCH (23:08)
[2019-03-10] MEDS: morphine SULFATE 4 MG/ML VIAL IVPUSH PRN ×4 (00:27→18:50)
[2019-03-10] MEDS: DOCUSATE SODIUM 100 MG CAPSULE (FP) PO SCH ×3 (06:04→23:13)
--- NOTE | 2019-03-10 06:52 | PN ---
Progress Note (short form) - Note Progress Note: Chief Complaint: Events noted, notes reviewed, denies any chest pain or dyspnea History of Present Illness: Seen and examined. Events noted, notes reviewed, denies any chest pain or dyspnea 02/04/2018 Echocardiography: Normal LV systolic function, mild LVH, mildly dilated ascending thoacic aorta, trace MR, trace TR and trace pericardial effusion DON: Normal LV size and function, mild MR, TR, mod AR, trace-mild [place] Current Medications: Current Medications Acetaminophen (Tylenol -) 650 mg PO Q4H PRN PRN Reason: PAIN OR FEVER Last Admin: 03/09/19 22:30 Dose: 650 mg Amino Acids (Prosource No Carb Liquid Pkt) 30 ml PO BID@0800,1730 [facility] Amoxicillin/Clavulanate Potassium (Augmentin - 875mg Tablet) 1 tab PO BID@0800, 1730 [facility] Apixaban (Eliquis -) 5 mg PO BID [facility] Last Admin: 03/09/19 22:33 Dose: 5 mg Ascorbic Acid (Vitamin C -) 500 mg PO DAILY [facility] Brimonidine Tartrate (Alphagan 0.2% -) 1 drop OU BID [facility] Last Admin: 03/09/19 23:09 Dose: 1 drop Docusate Sodium (Colace -) 100 mg PO TID [facility] Last Admin: 03/10/19 06:04 Dose: 100 mg Ferrous Sulfate (Feosol -) 325 mg PO DAILY [facility] Latanoprost (Xalatan 0.005% Eye Drops -) 1 drop OU HS [facility] Last Admin: 03/09/19 23:08 Dose: 1 drop Losartan Potassium (Cozaar -) 25 mg PO DAILY [facility] Megestrol Acetate (Megace -) 20 mg PO DAILY [facility] Melatonin (Melatonin) 3 mg PO HS [facility] Last Admin: 03/09/19 23:06 Dose: 3 mg Methimazole (Tapazole -) 5 mg PO DAILY [facility] Metoprolol Tartrate (Lopressor -) 50 mg PO BID [facility] Last Admin: 03/09/19 22:41 Dose: Not Given Morphine Sulfate (Morphine Sulfate) 2 mg IVPUSH Q4H PRN PRN Reason: PAIN LEVEL 6-10 Last Admin: 03/10/19 03:56 Dose: 2 mg Ondansetron HCl (Zofran Injection) 4 mg IVPUSH Q8H PRN PRN Reason: NAUSEA Pantoprazole Sodium (Protonix Packets For Oral Suspension -) 40 mg PO DAILY [facility] Senna (Senna -) 1 tab PO BID [facility] Last Admin: 03/09/19 22:34 Dose: 1 tab Timolol Maleate (Timoptic 0.5%) 1 drop OU BID [facility] Last Admin: 03/09/19 23:09 Dose: 1 drop Zinc Sulfate (Orazinc -) 220 mg PO DAILY [facility] - Objective Vital Signs: Last Vital Signs Temp Pulse Resp BP Pulse Ox 98 F 98 H 20 111/51 L 97 03/10/19 06:05 03/10/19 06:05 03/10/19 06:05 03/10/19 06:05 03/09/19 21:00 Intake & Output 03/07/19 03/08/19 03/09/19 03/10/19 23:59 23:59 23:59 23:59 Intake Total 500 Balance 500 Weight 182 lb 186 lb 6.4 oz 183 lb 3.2 oz Neck: Supple Negative JVD No bruit Respiratory: Diminished breath sounds at the bases Cardiovascular: S1, S2 Irregularly Irregular Gastrointestinal: Soft Benign Normal Bowel Sounds Ext: Trace Ankle Edema Labs: CBC, BMP 03/07/19 05:30 03/07/19 05:30 Hepatic Panel Total Bilirubin 0.4 mg/dL (0.2-1) 03/07/19 05:30 AST 20 U/L (15-37) 03/07/19 05:30 ALT 16 U/L (13-61) 03/07/19 05:30 Alkaline Phosphatase 71 U/L (45-117) 03/07/19 05:30 Albumin 1.6 g/dl (3.4-5.0) L 03/07/19 05:30 INR, PTT INR 1.34 (0.83-1.09) H 03/04/19 06:00 Assessment/Plan ASSESSMENT: 1. Post javi-colectomy for colon carcinoma with post-op wound infection and bowel herniation into dehiscence site 2. Persistent atrial fibrillation with periods of RVR on DOAC's/Eliquis 3. HTN 4. DM 5. Parkinson's disease 6. Hyperthyroidism PLAN: 1. Antibiotics as per the primary team 2. Continue Eliquis 3. Continue Lopressor, hemodynamics permitting 4. Continue Cozaar, hemodynamics permitting 5. Continue Tapazole Saulat Trever MD
[2019-03-10] MEDS: AMINO ACIDS/PROTEIN HYDROLYS 30 ML LIQUID.PKT PO SCH ×2 (07:58→17:34)
[2019-03-10] MEDS: AMOX TR/POT CLAV 875MG/125MG TABLETS (FP) PO SCH ×2 (07:58→17:34)
[2019-03-10] MEDS ORDERED: PT OWN MED DRAWER 7, Y5N ONE (10:29)
--- NOTE | 2019-03-10 10:50 | PN ---
Progress Note (short form) - Note Progress Note: AWAKE DAUGHTER BEDSIDE AWAITING BED AT SNF START TYLENOL IV FOR PAIN AND ATARAX PO FOR ANXIETY
[2019-03-10] MEDS: METOPROLOL TARTRATE 50 MG TABLET (FP) PO SCH ×2 (11:02→22:48)
[2019-03-10] MEDS: ASCORBIC ACID 500 MG TABLET (FP) PO SCH (11:02)
[2019-03-10] MEDS: FERROUS SO4 325 MG TABLET (FP) PO SCH (11:02)
[2019-03-10] MEDS: APIXABAN 5 MG TABLET PO SCH ×2 (11:02→22:48)
[2019-03-10] MEDS: ZINC SULFATE 220 MG CAPSULE (FP) PO SCH (11:03)
[2019-03-10] MEDS: LOSARTAN POTASSIUM 25 MG TABLET PO SCH (11:03)
[2019-03-10] MEDS: SENNOSIDES 8.6MG TABLET (FP) PO SCH ×2 (11:03→22:48)
[2019-03-10] MEDS: PANTOPRAZOLE SOD 40 MG SUSPENSION PACKET PO SCH (11:04)
[2019-03-10] MEDS: MEGESTROL ACETATE 20 MG TABLET PO SCH (11:04)
[2019-03-10] MEDS: METHIMAZOLE 5 MG TABLET (FP) PO SCH (11:05)
--- NOTE | 2019-03-10 11:27 | PN ---
Progress Note, Physician History of Present Illness: stable doing well no new issues - Current Medication List Current Medications: Active Medications Acetaminophen (Tylenol -) 650 mg PO Q4H PRN PRN Reason: PAIN OR FEVER Last Admin: 03/09/19 22:30 Dose: 650 mg Acetaminophen (Ofirmev Injection -) 1,000 mg IVPB Q6H PRN PRN Reason: PAIN OR FEVER Amino Acids (Prosource No Carb Liquid Pkt) 30 ml PO BID@0800,1730 [facility] Last Admin: 03/10/19 07:58 Dose: 30 ml Amoxicillin/Clavulanate Potassium (Augmentin - 875mg Tablet) 1 tab PO BID@0800, 1730 [facility] Last Admin: 03/10/19 07:58 Dose: 1 tab Apixaban (Eliquis -) 5 mg PO BID [facility] Last Admin: 03/09/19 22:33 Dose: 5 mg Ascorbic Acid (Vitamin C -) 500 mg PO DAILY [facility] Brimonidine Tartrate (Alphagan 0.2% -) 1 drop OU BID [facility] Last Admin: 03/09/19 23:09 Dose: 1 drop Docusate Sodium (Colace -) 100 mg PO TID [facility] Last Admin: 03/10/19 06:04 Dose: 100 mg Ferrous Sulfate (Feosol -) 325 mg PO DAILY [facility] Hydroxyzine HCl (Atarax -) 10 mg PO Q6H [facility] Latanoprost (Xalatan 0.005% Eye Drops -) 1 drop OU HS [facility] Last Admin: 03/09/19 23:08 Dose: 1 drop Losartan Potassium (Cozaar -) 25 mg PO DAILY [facility] Megestrol Acetate (Megace -) 20 mg PO DAILY [facility] Melatonin (Melatonin) 3 mg PO HS [facility] Last Admin: 03/09/19 23:06 Dose: 3 mg Methimazole (Tapazole -) 5 mg PO DAILY [facility] Metoprolol Tartrate (Lopressor -) 50 mg PO BID [facility] Last Admin: 03/09/19 22:41 Dose: Not Given Morphine Sulfate (Morphine Sulfate) 2 mg IVPUSH Q4H PRN PRN Reason: PAIN LEVEL 6-10 Last Admin: 03/10/19 07:57 Dose: 2 mg Ondansetron HCl (Zofran Injection) 4 mg IVPUSH Q8H PRN PRN Reason: NAUSEA Pantoprazole Sodium (Protonix Packets For Oral Suspension -) 40 mg PO DAILY [facility] Senna (Senna -) 1 tab PO BID [facility] Last Admin: 03/09/19 22:34 Dose: 1 tab Timolol Maleate (Timoptic 0.5%) 1 drop OU BID [facility] Last Admin: 03/09/19 23:09 Dose: 1 drop Zinc Sulfate (Orazinc -) 220 mg PO DAILY [facility] - Objective Vital Signs: Vital Signs Temperature 98 F 03/10/19 06:05 Pulse Rate 98 H 03/10/19 06:05 Respiratory Rate 20 03/10/19 06:05 Blood Pressure 111/51 L 03/10/19 06:05 O2 Sat by Pulse Oximetry (%) 97 03/09/19 21:00 Constitutional: Yes: No Distress, Calm, Obese Cardiovascular: Yes: S1, S2 Respiratory: Yes: Regular, CTA Bilaterally Gastrointestinal: Yes: Normal Bowel Sounds, Soft Musculoskeletal: Yes: WNL Extremities: Yes: WNL Wound/Incision: Yes: Dressing Dry and Intact Neurological: Yes: Alert, Oriented Psychiatric: Yes: Alert Labs: CBC, BMP 03/07/19 05:30 03/07/19 05:30 INR, PTT INR 1.34 (0.83-1.09) H 03/04/19 06:00 Assessment/Plan Problem List - Problems (1) Abdominal pain Code(s): R10.9 - UNSPECIFIED ABDOMINAL PAIN Qualifiers: Abdominal location: unspecified location Qualified Code(s): R10.9 - Unspecified abdominal pain (2) Obesity (BMI 30-39.9) Code(s): E66.9 - OBESITY, UNSPECIFIED (3) S/P left hemicolectomy Code(s): Z90.49 - ACQUIRED ABSENCE OF OTHER SPECIFIED PARTS OF DIGESTIVE TRACT (4) Colonic mass Code(s): K63.9 - DISEASE OF INTESTINE, UNSPECIFIED (5) Hyperthyroidism Code(s): E05.90 - THYROTOXICOSIS, UNSP WITHOUT THYROTOXIC CRISIS OR STORM (6) New onset atrial fibrillation Code(s): I48.91 - UNSPECIFIED ATRIAL FIBRILLATION (7) Acute on chronic diastolic (congestive) heart failure Code(s): I50.33 - ACUTE ON CHRONIC DIASTOLIC (CONGESTIVE) HEART FAILURE (8) Asthma Code(s): J45.909 - UNSPECIFIED ASTHMA, UNCOMPLICATED Qualifiers: Asthma severity: mild Asthma persistence: intermittent Asthma complication type: unspecified Qualified Code(s): J45.20 - Mild intermittent asthma, uncomplicated (9) CAD (coronary artery disease) Code(s): I25.10 - ATHSCL HEART DISEASE OF [place] CORONARY ARTERY W/O ANG PCTRS Qualifiers: Coronary Disease-Associated Artery/Lesion type: [place] artery [place] vs. transplanted heart: [place] heart Associated angina: without angina Qualified Code(s): I25.10 - Atherosclerotic heart disease of [place] coronary artery without angina pectoris (10) Diabetes mellitus Code(s): E11.9 - TYPE 2 DIABETES MELLITUS WITHOUT COMPLICATIONS Qualifiers: Diabetes mellitus type: type 2 Diabetes mellitus halfway insulin use: without moth exterminator use Diabetes mellitus complication status: without complication Qualified Code(s): E11.9 - Type 2 diabetes mellitus without complications (11) HTN (hypertension) Code(s): I10 - ESSENTIAL (PRIMARY) HYPERTENSION Qualifiers: Hypertension type: essential hypertension Qualified Code(s): I10 - Essential (primary) hypertension (12) Parkinson disease Code(s): G20 - PARKINSON'S DISEASE Assessment/Plan 83 y.o. female with PMH of DM, AFIB, HTN, HLD, CHF, hyperthyroidism, and Colon CA s/p Lt hemicolectomy on 02/22/19 with post-op wound infection discharged home on 03/02/19 on po antibiotics presenting with abd pain, purulent discharge from wound dehiscence site. CT Abd with bowel herniation into dehiscence site. Post-op Wound Infection Bowel herniation into wound s/p hemicolectomy for Colon CA DM AFIB CAD CHF HTN HLD Hyperthyroidism plan continue oral abx rest as per the team wound care patient doing well
[2019-03-10] MEDS: hydrOXYzine HCL 10 MG TABLET PO SCH ×3 (11:31→22:48)
[2019-03-10] MEDS: ACETAMINOPHEN 1000 MG/100 ML VIAL (NON FORMULARY) IVPB PRN (11:31)
[2019-03-10] MEDS: BRIMONIDINE TARTRATE 0.2% OPHTHALMIC 5 ML BOTTLE OU SCH ×2 (11:42→22:49)
[2019-03-10] MEDS: TIMOLOL 0.5% OPHTHALMIC SOL 5 ML BOTTLE OU SCH ×2 (11:43→22:50)
--- NOTE | 2019-03-10 12:16 | PN ---
Progress Note (short form) - Note Progress Note: Attending Surgeon POD #18 Appetite remains poor despite encouragement to eat; having BM's abdo-distal wound w/VAC and serous drainage; proximal wound on LWC IMP: status quo PLAN: LWC rendered; proximal wound open and packed; wound care orders are in effect; VAC will be changed as indicated. John Alvarado MD FACS
[2019-03-10] MEDS: MELATONIN 1 MG TABLET PO SCH (22:48)
[2019-03-10] MEDS: LATANOPROST 0.005% OPHTH SOLN 2.5ML BOTTLE OU SCH (22:50)
[2019-03-11] MEDS: morphine SULFATE 4 MG/ML VIAL IVPUSH PRN ×4 (00:41→20:19)
[2019-03-11] MEDS: hydrOXYzine HCL 10 MG TABLET PO SCH ×4 (05:35→22:03)
[2019-03-11] MEDS: DOCUSATE SODIUM 100 MG CAPSULE (FP) PO SCH ×3 (06:06→22:03)
[2019-03-11] MEDS: AMINO ACIDS/PROTEIN HYDROLYS 30 ML LIQUID.PKT PO SCH ×2 (07:59→17:24)
[2019-03-11] MEDS: AMOX TR/POT CLAV 875MG/125MG TABLETS (FP) PO SCH ×2 (07:59→17:22)
[2019-03-11] MEDS: MEGESTROL ACETATE 20 MG TABLET PO SCH (09:42)
[2019-03-11] MEDS: ZINC SULFATE 220 MG CAPSULE (FP) PO SCH (09:44)
[2019-03-11] MEDS: SENNOSIDES 8.6MG TABLET (FP) PO SCH ×2 (09:45→22:03)
[2019-03-11] MEDS: METHIMAZOLE 5 MG TABLET (FP) PO SCH (09:45)
[2019-03-11] MEDS: LOSARTAN POTASSIUM 25 MG TABLET PO SCH (09:45)
[2019-03-11] MEDS: ASCORBIC ACID 500 MG TABLET (FP) PO SCH (09:45)
[2019-03-11] MEDS: PANTOPRAZOLE SOD 40 MG SUSPENSION PACKET PO SCH (09:46)
[2019-03-11] MEDS: METOPROLOL TARTRATE 50 MG TABLET (FP) PO SCH ×2 (09:46→22:03)
[2019-03-11] MEDS: FERROUS SO4 325 MG TABLET (FP) PO SCH (09:46)
[2019-03-11] MEDS: APIXABAN 5 MG TABLET PO SCH ×2 (09:46→22:03)
[2019-03-11] MEDS: BRIMONIDINE TARTRATE 0.2% OPHTHALMIC 5 ML BOTTLE OU SCH ×2 (09:51→22:01)
[2019-03-11] MEDS: TIMOLOL 0.5% OPHTHALMIC SOL 5 ML BOTTLE OU SCH ×2 (09:52→22:04)
[2019-03-11] MEDS: ACETAMINOPHEN 1000 MG/100 ML VIAL (NON FORMULARY) IVPB PRN (10:13)
--- NOTE | 2019-03-11 11:05 | PN ---
Progress Note (short form) - Note Progress Note: AWAKE MORE ALERT FEELING PAIN THAT COMES AND GOES NOT RELIVED WITH TYLENOL START MORPHINE/OXYCODONE AWAIT TRANSFER TO SNF
--- NOTE | 2019-03-11 11:26 | PN ---
Progress Note (short form) - Note Progress Note: Chief Complaint: Events noted, notes reviewed, denies any chest pain or dyspnea , complaining of persistent pain- surgical site History of Present Illness: Seen and examined. Events noted, notes reviewed, denies any chest pain or dyspnea, complaining of persistent pain- surgical site 02/04/2018 Echocardiography: Normal LV systolic function, mild LVH, mildly dilated ascending thoacic aorta, trace MR, trace TR and trace pericardial effusion DON: Normal LV size and function, mild MR, TR, mod AR, trace-mild [place] Current Medications: Current Medications Acetaminophen (Tylenol -) 650 mg PO Q4H PRN PRN Reason: PAIN OR FEVER Last Admin: 03/09/19 22:30 Dose: 650 mg Acetaminophen (Ofirmev Injection -) 1,000 mg IVPB Q6H PRN PRN Reason: PAIN OR FEVER Last Admin: 03/11/19 10:13 Dose: 1,000 mg Amino Acids (Prosource No Carb Liquid Pkt) 30 ml PO BID@0800,1730 [facility] Last Admin: 03/11/19 07:59 Dose: 30 ml Amoxicillin/Clavulanate Potassium (Augmentin - 875mg Tablet) 1 tab PO BID@0800, 1730 [facility] Last Admin: 03/11/19 07:59 Dose: 1 tab Apixaban (Eliquis -) 5 mg PO BID [facility] Last Admin: 03/11/19 09:46 Dose: 5 mg Ascorbic Acid (Vitamin C -) 500 mg PO DAILY [facility] Last Admin: 03/11/19 09:45 Dose: 500 mg Brimonidine Tartrate (Alphagan 0.2% -) 1 drop OU BID [facility] Last Admin: 03/11/19 09:51 Dose: 1 drop Docusate Sodium (Colace -) 100 mg PO TID [facility] Last Admin: 03/11/19 06:06 Dose: 100 mg Ferrous Sulfate (Feosol -) 325 mg PO DAILY [facility] Last Admin: 03/11/19 09:46 Dose: 325 mg Hydroxyzine HCl (Atarax -) 10 mg PO Q6H [facility] Last Admin: 03/11/19 10:02 Dose: 10 mg Latanoprost (Xalatan 0.005% Eye Drops -) 1 drop OU HS [facility] Last Admin: 03/10/19 22:50 Dose: 1 drop Losartan Potassium (Cozaar -) 25 mg PO DAILY [facility] Last Admin: 03/11/19 09:45 Dose: 25 mg Megestrol Acetate (Megace -) 20 mg PO DAILY [facility] Last Admin: 03/11/19 09:42 Dose: 20 mg Melatonin (Melatonin) 3 mg PO HS [facility] Last Admin: 03/10/19 22:48 Dose: 3 mg Methimazole (Tapazole -) 5 mg PO DAILY [facility] Last Admin: 03/11/19 09:45 Dose: 5 mg Metoprolol Tartrate (Lopressor -) 50 mg PO BID [facility] Last Admin: 03/11/19 09:46 Dose: 50 mg Morphine Sulfate (Morphine Sulfate) 2 mg IVPUSH Q4H PRN PRN Reason: PAIN LEVEL 6-10 Last Admin: 03/11/19 07:59 Dose: 2 mg Ondansetron HCl (Zofran Injection) 4 mg IVPUSH Q8H PRN PRN Reason: NAUSEA Oxycodone HCl (Roxicodone -) 5 mg PO Q6H PRN PRN Reason: PAIN LEVEL 7 - 10 Pantoprazole Sodium (Protonix Packets For Oral Suspension -) 40 mg PO DAILY [facility] Last Admin: 03/11/19 09:46 Dose: 40 mg Senna (Senna -) 1 tab PO BID [facility] Last Admin: 03/11/19 09:45 Dose: 1 tab Timolol Maleate (Timoptic 0.5%) 1 drop OU BID [facility] Last Admin: 03/11/19 09:52 Dose: 1 drop Zinc Sulfate (Orazinc -) 220 mg PO DAILY [facility] Last Admin: 03/11/19 09:44 Dose: 220 mg - Objective Vital Signs: Last Vital Signs Temp Pulse Resp BP Pulse Ox 97.9 F 92 H 17 130/76 97 03/11/19 06:20 03/11/19 06:20 03/11/19 06:20 03/11/19 06:20 03/10/19 21:00 Intake & Output 03/08/19 03/09/19 03/10/19 03/11/19 23:59 23:59 23:59 23:59 Intake Total 1080 240 Output Total 50 Balance 1030 240 Weight 186 lb 6.4 oz 183 lb 3.2 oz Neck: Supple Negative JVD No bruit Respiratory: Diminished breath sounds at the bases Cardiovascular: S1, S2 Irregularly Irregular Gastrointestinal: Soft Benign Normal Bowel Sounds Ext: Trace Ankle Edema Labs: CBC, BMP 03/07/19 05:30 03/07/19 05:30 Assessment/Plan ASSESSMENT: 1. Post javi-colectomy for colon carcinoma with post-op wound infection and bowel herniation into dehiscence site 2. Persistent atrial fibrillation with periods of RVR on DOAC's/Eliquis 3. HTN 4. DM 5. Parkinson's disease 6. Hyperthyroidism PLAN: 1. Antibiotics as per the primary team 2. Continue Eliquis 3. Continue Lopressor, hemodynamics permitting 4. Continue Cozaar, hemodynamics permitting 5. Continue Tapazole 6. Pain management as per the primary team Meron Perera MD
[2019-03-11] MEDS: oxyCODONE HCL 5 MG TABLET PO PRN ×2 (11:31→17:25)
--- NOTE | 2019-03-11 12:50 | PN ---
Progress Note, Physician History of Present Illness: stable no new issues - Current Medication List Current Medications: Active Medications Acetaminophen (Tylenol -) 650 mg PO Q4H PRN PRN Reason: PAIN OR FEVER Last Admin: 03/09/19 22:30 Dose: 650 mg Acetaminophen (Ofirmev Injection -) 1,000 mg IVPB Q6H PRN PRN Reason: PAIN OR FEVER Last Admin: 03/11/19 10:13 Dose: 1,000 mg Amino Acids (Prosource No Carb Liquid Pkt) 30 ml PO BID@0800,1730 [facility] Last Admin: 03/11/19 07:59 Dose: 30 ml Amoxicillin/Clavulanate Potassium (Augmentin - 875mg Tablet) 1 tab PO BID@0800, 1730 [facility] Last Admin: 03/11/19 07:59 Dose: 1 tab Apixaban (Eliquis -) 5 mg PO BID [facility] Last Admin: 03/11/19 09:46 Dose: 5 mg Ascorbic Acid (Vitamin C -) 500 mg PO DAILY [facility] Last Admin: 03/11/19 09:45 Dose: 500 mg Brimonidine Tartrate (Alphagan 0.2% -) 1 drop OU BID [facility] Last Admin: 03/11/19 09:51 Dose: 1 drop Docusate Sodium (Colace -) 100 mg PO TID [facility] Last Admin: 03/11/19 06:06 Dose: 100 mg Ferrous Sulfate (Feosol -) 325 mg PO DAILY [facility] Last Admin: 03/11/19 09:46 Dose: 325 mg Hydroxyzine HCl (Atarax -) 10 mg PO Q6H [facility] Last Admin: 03/11/19 10:02 Dose: 10 mg Latanoprost (Xalatan 0.005% Eye Drops -) 1 drop OU [facility] Last Admin: 03/10/19 22:50 Dose: 1 drop Losartan Potassium (Cozaar -) 25 mg PO DAILY [facility] Last Admin: 03/11/19 09:45 Dose: 25 mg Megestrol Acetate (Megace -) 20 mg PO DAILY [facility] Last Admin: 03/11/19 09:42 Dose: 20 mg Melatonin (Melatonin) 3 mg PO HS [facility] Last Admin: 03/10/19 22:48 Dose: 3 mg Methimazole (Tapazole -) 5 mg PO DAILY [facility] Last Admin: 03/11/19 09:45 Dose: 5 mg Metoprolol Tartrate (Lopressor -) 50 mg PO BID [facility] Last Admin: 03/11/19 09:46 Dose: 50 mg Morphine Sulfate (Morphine Sulfate) 2 mg IVPUSH Q4H PRN PRN Reason: PAIN LEVEL 6-10 Last Admin: 03/11/19 07:59 Dose: 2 mg Ondansetron HCl (Zofran Injection) 4 mg IVPUSH Q8H PRN PRN Reason: NAUSEA Oxycodone HCl (Roxicodone -) 5 mg PO Q6H PRN PRN Reason: PAIN LEVEL 7 - 10 Last Admin: 03/11/19 11:31 Dose: 5 mg Pantoprazole Sodium (Protonix Packets For Oral Suspension -) 40 mg PO DAILY [facility] Last Admin: 03/11/19 09:46 Dose: 40 mg Senna (Senna -) 1 tab PO BID [facility] Last Admin: 03/11/19 09:45 Dose: 1 tab Timolol Maleate (Timoptic 0.5%) 1 drop OU BID [facility] Last Admin: 03/11/19 09:52 Dose: 1 drop Zinc Sulfate (Orazinc -) 220 mg PO DAILY [facility] Last Admin: 03/11/19 09:44 Dose: 220 mg - Objective Vital Signs: Vital Signs Temperature 97.9 F 03/11/19 06:20 Pulse Rate 92 H 03/11/19 06:20 Respiratory Rate 17 03/11/19 06:20 Blood Pressure 130/76 03/11/19 06:20 O2 Sat by Pulse Oximetry (%) 97 03/10/19 21:00 Constitutional: Yes: No Distress, Calm Cardiovascular: Yes: S1, S2 Respiratory: Yes: Regular, CTA Bilaterally Gastrointestinal: Yes: Normal Bowel Sounds, Soft Musculoskeletal: Yes: WNL Extremities: Yes: WNL Wound/Incision: Yes: Dressing Dry and Intact Psychiatric: Yes: Alert, Oriented Labs: CBC, BMP 03/07/19 05:30 03/07/19 05:30 INR, PTT INR 1.34 (0.83-1.09) H 03/04/19 06:00 Assessment/Plan Problem List - Problems (1) Abdominal pain Code(s): R10.9 - UNSPECIFIED ABDOMINAL PAIN Qualifiers: Abdominal location: unspecified location Qualified Code(s): R10.9 - Unspecified abdominal pain (2) Obesity (BMI 30-39.9) Code(s): E66.9 - OBESITY, UNSPECIFIED (3) S/P left hemicolectomy Code(s): Z90.49 - ACQUIRED ABSENCE OF OTHER SPECIFIED PARTS OF DIGESTIVE TRACT (4) Colonic mass Code(s): K63.9 - DISEASE OF INTESTINE, UNSPECIFIED (5) Hyperthyroidism Code(s): E05.90 - THYROTOXICOSIS, UNSP WITHOUT THYROTOXIC CRISIS OR STORM (6) New onset atrial fibrillation Code(s): I48.91 - UNSPECIFIED ATRIAL FIBRILLATION (7) Acute on chronic diastolic (congestive) heart failure Code(s): I50.33 - ACUTE ON CHRONIC DIASTOLIC (CONGESTIVE) HEART FAILURE (8) Asthma Code(s): J45.909 - UNSPECIFIED ASTHMA, UNCOMPLICATED Qualifiers: Asthma severity: mild Asthma persistence: intermittent Asthma complication type: unspecified Qualified Code(s): J45.20 - Mild intermittent asthma, uncomplicated (9) CAD (coronary artery disease) Code(s): I25.10 - ATHSCL HEART DISEASE OF [place] CORONARY ARTERY W/O ANG PCTRS Qualifiers: Coronary Disease-Associated Artery/Lesion type: [place] artery [place] vs. transplanted heart: [place] heart Associated angina: without angina Qualified Code(s): I25.10 - Atherosclerotic heart disease of [place] coronary artery without angina pectoris (10) Diabetes mellitus Code(s): E11.9 - TYPE 2 DIABETES MELLITUS WITHOUT COMPLICATIONS Qualifiers: Diabetes mellitus type: type 2 Diabetes mellitus manager terminal insulin use: without manager terminal use Diabetes mellitus complication status: without complication Qualified Code(s): E11.9 - Type 2 diabetes mellitus without complications (11) HTN (hypertension) Code(s): I10 - ESSENTIAL (PRIMARY) HYPERTENSION Qualifiers: Hypertension type: essential hypertension Qualified Code(s): I10 - Essential (primary) hypertension (12) Parkinson disease Code(s): G20 - PARKINSON'S DISEASE Assessment/Plan 83 y.o. female with PMH of DM, AFIB, HTN, HLD, CHF, hyperthyroidism, and Colon CA s/p Lt hemicolectomy on 02/22/19 with post-op wound infection discharged home on 03/02/19 on po antibiotics presenting with abd pain, purulent discharge from wound dehiscence site. CT Abd with bowel herniation into dehiscence site. Post-op Wound Infection Bowel herniation into wound s/p hemicolectomy for Colon CA DM AFIB CAD CHF HTN HLD Hyperthyroidism plan continue oral abx rest as per the team wound care patient doing well will deescalate abx tomorrow
[2019-03-11] MEDS: LATANOPROST 0.005% OPHTH SOLN 2.5ML BOTTLE OU SCH (22:01)
[2019-03-11] MEDS: MELATONIN 1 MG TABLET PO SCH (22:03)
[2019-03-12] MEDS: oxyCODONE HCL 5 MG TABLET PO PRN (00:59)
[2019-03-12] MEDS: morphine SULFATE 4 MG/ML VIAL IVPUSH PRN ×4 (02:52→20:20)
[2019-03-12] MEDS: hydrOXYzine HCL 10 MG TABLET PO SCH ×4 (05:31→22:31)
[2019-03-12] MEDS: DOCUSATE SODIUM 100 MG CAPSULE (FP) PO SCH ×3 (05:34→22:31)
[2019-03-12] MEDS: AMOX TR/POT CLAV 875MG/125MG TABLETS (FP) PO SCH (08:27)
[2019-03-12] MEDS: AMINO ACIDS/PROTEIN HYDROLYS 30 ML LIQUID.PKT PO SCH ×2 (08:27→17:10)
--- NOTE | 2019-03-12 09:15 | PN ---
Progress Note (short form) - Note Progress Note: Chief Complaint: Events noted, notes reviewed, denies any chest pain or dyspnea , complaining of persistent pain- surgical site History of Present Illness: Seen and examined. Events noted, notes reviewed, denies any chest pain or dyspnea, complaining of persistent pain- surgical site 02/04/2018 Echocardiography: Normal LV systolic function, mild LVH, mildly dilated ascending thoacic aorta, trace MR, trace TR and trace pericardial effusion DON: Normal LV size and function, mild MR, TR, mod AR, trace-mild [place] Current Medications: Current Medications Acetaminophen (Tylenol -) 650 mg PO Q4H PRN PRN Reason: PAIN OR FEVER Last Admin: 03/09/19 22:30 Dose: 650 mg Acetaminophen (Ofirmev Injection -) 1,000 mg IVPB Q6H PRN PRN Reason: PAIN OR FEVER Last Admin: 03/11/19 10:13 Dose: 1,000 mg Amino Acids (Prosource No Carb Liquid Pkt) 30 ml PO BID@0800,1730 [facility] Last Admin: 03/12/19 08:27 Dose: 30 ml Amoxicillin/Clavulanate Potassium (Augmentin - 875mg Tablet) 1 tab PO BID@0800, 1730 [facility] Last Admin: 03/12/19 08:27 Dose: 1 tab Apixaban (Eliquis -) 5 mg PO BID [facility] Last Admin: 03/11/19 22:03 Dose: 5 mg Ascorbic Acid (Vitamin C -) 500 mg PO DAILY [facility] Last Admin: 03/11/19 09:45 Dose: 500 mg Brimonidine Tartrate (Alphagan 0.2% -) 1 drop OU BID [facility] Last Admin: 03/11/19 22:01 Dose: 1 drop Docusate Sodium (Colace -) 100 mg PO TID [facility] Last Admin: 03/12/19 05:34 Dose: Not Given Ferrous Sulfate (Feosol -) 325 mg PO DAILY [facility] Last Admin: 03/11/19 09:46 Dose: 325 mg Hydroxyzine HCl (Atarax -) 10 mg PO Q6H [facility] Last Admin: 03/12/19 05:31 Dose: 10 mg Latanoprost (Xalatan 0.005% Eye Drops -) 1 drop OU HS [facility] Last Admin: 03/11/19 22:01 Dose: 1 drop Losartan Potassium (Cozaar -) 25 mg PO DAILY [facility] Last Admin: 03/11/19 09:45 Dose: 25 mg Megestrol Acetate (Megace -) 20 mg PO DAILY [facility] Last Admin: 03/11/19 09:42 Dose: 20 mg Melatonin (Melatonin) 3 mg PO HS [facility] Last Admin: 03/11/19 22:03 Dose: 3 mg Methimazole (Tapazole -) 5 mg PO DAILY [facility] Last Admin: 03/11/19 09:45 Dose: 5 mg Metoprolol Tartrate (Lopressor -) 50 mg PO BID [facility] Last Admin: 03/11/19 22:03 Dose: 50 mg Morphine Sulfate (Morphine Sulfate) 2 mg IVPUSH Q4H PRN PRN Reason: PAIN LEVEL 6-10 Last Admin: 03/12/19 08:49 Dose: 2 mg Ondansetron HCl (Zofran Injection) 4 mg IVPUSH Q8H PRN PRN Reason: NAUSEA Oxycodone HCl (Roxicodone -) 5 mg PO Q6H PRN PRN Reason: PAIN LEVEL 7 - 10 Last Admin: 03/12/19 00:59 Dose: 5 mg Pantoprazole Sodium (Protonix Packets For Oral Suspension -) 40 mg PO DAILY [facility] Last Admin: 03/11/19 09:46 Dose: 40 mg Senna (Senna -) 1 tab PO BID [facility] Last Admin: 03/11/19 22:03 Dose: 1 tab Timolol Maleate (Timoptic 0.5%) 1 drop OU BID [facility] Last Admin: 03/11/19 22:04 Dose: 1 drop Zinc Sulfate (Orazinc -) 220 mg PO DAILY [facility] Last Admin: 03/11/19 09:44 Dose: 220 mg - Objective Vital Signs: Last Vital Signs Temp Pulse Resp BP Pulse Ox 98.5 F 97 H 18 128/53 L 95 03/12/19 06:05 03/12/19 06:05 03/12/19 06:05 03/12/19 06:05 03/11/19 21:00 Intake & Output 03/09/19 03/10/19 03/11/19 03/12/19 23:59 23:59 23:59 23:59 Intake Total 1080 1245 240 Output Total 50 Balance 1030 1245 240 Weight 183 lb 3.2 oz Neck: Supple Negative JVD No bruit Respiratory: Diminished breath sounds at the bases Cardiovascular: S1, S2 Irregularly Irregular Gastrointestinal: Soft Benign Normal Bowel Sounds Ext: Trace Ankle Edema Labs: CBC, BMP 03/07/19 05:30 03/07/19 05:30 Assessment/Plan ASSESSMENT: 1. Post javi-colectomy for colon carcinoma with post-op wound infection and bowel herniation into dehiscence site 2. Persistent atrial fibrillation with periods of RVR on DOAC's/Eliquis 3. HTN 4. DM 5. Parkinson's disease 6. Hyperthyroidism PLAN: 1. Antibiotics as per the primary team 2. Continue Eliquis 3. Continue Lopressor, hemodynamics permitting 4. Continue Cozaar, hemodynamics permitting 5. Continue Tapazole 6. Pain management as per the primary team Meron Perera MD
[2019-03-12] MEDS ORDERED: PT OWN MED DRAWER 7, Y5N ONE ×2 (10:34→21:46)
[2019-03-12] MEDS: SENNOSIDES 8.6MG TABLET (FP) PO SCH ×2 (10:51→22:31)
[2019-03-12] MEDS: APIXABAN 5 MG TABLET PO SCH ×2 (10:51→22:32)
[2019-03-12] MEDS: FERROUS SO4 325 MG TABLET (FP) PO SCH (10:51)
[2019-03-12] MEDS: MEGESTROL ACETATE 20 MG TABLET PO SCH (10:51)
--- NOTE | 2019-03-12 11:31 | PN ---
Progress Note, Physician History of Present Illness: stable no new issues wound fairy clean - Current Medication List Current Medications: Active Medications Acetaminophen (Tylenol -) 650 mg PO Q4H PRN PRN Reason: PAIN OR FEVER Last Admin: 03/09/19 22:30 Dose: 650 mg Acetaminophen (Ofirmev Injection -) 1,000 mg IVPB Q6H PRN PRN Reason: PAIN OR FEVER Last Admin: 03/11/19 10:13 Dose: 1,000 mg Amino Acids (Prosource No Carb Liquid Pkt) 30 ml PO BID@0800,1730 [facility] Last Admin: 03/12/19 08:27 Dose: 30 ml Apixaban (Eliquis -) 5 mg PO BID [facility] Last Admin: 03/12/19 10:51 Dose: 5 mg Ascorbic Acid (Vitamin C -) 500 mg PO DAILY [facility] Last Admin: 03/11/19 09:45 Dose: 500 mg Brimonidine Tartrate (Alphagan 0.2% -) 1 drop OU BID [facility] Last Admin: 03/11/19 22:01 Dose: 1 drop Docusate Sodium (Colace -) 100 mg PO TID [facility] Last Admin: 03/12/19 05:34 Dose: Not Given Ferrous Sulfate (Feosol -) 325 mg PO DAILY [facility] Last Admin: 03/12/19 10:51 Dose: 325 mg Hydroxyzine HCl (Atarax -) 10 mg PO Q6H [facility] Last Admin: 03/12/19 05:31 Dose: 10 mg Latanoprost (Xalatan 0.005% Eye Drops -) 1 drop OU HS [facility] Last Admin: 03/11/19 22:01 Dose: 1 drop Losartan Potassium (Cozaar -) 25 mg PO DAILY [facility] Last Admin: 03/11/19 09:45 Dose: 25 mg Megestrol Acetate (Megace -) 20 mg PO DAILY [facility] Last Admin: 03/12/19 10:51 Dose: 20 mg Melatonin (Melatonin) 3 mg PO HS [facility] Last Admin: 03/11/19 22:03 Dose: 3 mg Methimazole (Tapazole -) 5 mg PO DAILY [facility] Last Admin: 03/11/19 09:45 Dose: 5 mg Metoprolol Tartrate (Lopressor -) 50 mg PO BID [facility] Last Admin: 03/11/19 22:03 Dose: 50 mg Morphine Sulfate (Morphine Sulfate) 2 mg IVPUSH Q4H PRN PRN Reason: PAIN LEVEL 6-10 Last Admin: 03/12/19 08:49 Dose: 2 mg Ondansetron HCl (Zofran Injection) 4 mg IVPUSH Q8H PRN PRN Reason: NAUSEA Oxycodone HCl (Roxicodone -) 5 mg PO Q6H PRN PRN Reason: PAIN LEVEL 7 - 10 Last Admin: 03/12/19 00:59 Dose: 5 mg Pantoprazole Sodium (Protonix Packets For Oral Suspension -) 40 mg PO DAILY [facility] Last Admin: 03/11/19 09:46 Dose: 40 mg Senna (Senna -) 1 tab PO BID [facility] Last Admin: 03/12/19 10:51 Dose: 1 tab Timolol Maleate (Timoptic 0.5%) 1 drop OU BID [facility] Last Admin: 03/11/19 22:04 Dose: 1 drop Zinc Sulfate (Orazinc -) 220 mg PO DAILY [facility] Last Admin: 03/11/19 09:44 Dose: 220 mg - Objective Vital Signs: Vital Signs Temperature 98.5 F 03/12/19 06:05 Pulse Rate 97 H 03/12/19 06:05 Respiratory Rate 18 03/12/19 06:05 Blood Pressure 128/53 L 03/12/19 06:05 O2 Sat by Pulse Oximetry (%) 95 03/11/19 21:00 Constitutional: Yes: No Distress, Calm Cardiovascular: Yes: S1, S2 Respiratory: Yes: Regular, CTA Bilaterally Gastrointestinal: Yes: Normal Bowel Sounds, Soft Musculoskeletal: Yes: WNL Extremities: Yes: WNL Neurological: Yes: Alert, Oriented Psychiatric: Yes: Alert, Oriented Labs: CBC, BMP 03/07/19 05:30 03/07/19 05:30 INR, PTT INR 1.34 (0.83-1.09) H 03/04/19 06:00 Assessment/Plan Problem List - Problems (1) Abdominal pain Code(s): R10.9 - UNSPECIFIED ABDOMINAL PAIN Qualifiers: Abdominal location: unspecified location Qualified Code(s): R10.9 - Unspecified abdominal pain (2) Obesity (BMI 30-39.9) Code(s): E66.9 - OBESITY, UNSPECIFIED (3) S/P left hemicolectomy Code(s): Z90.49 - ACQUIRED ABSENCE OF OTHER SPECIFIED PARTS OF DIGESTIVE TRACT (4) Colonic mass Code(s): K63.9 - DISEASE OF INTESTINE, UNSPECIFIED (5) Hyperthyroidism Code(s): E05.90 - THYROTOXICOSIS, UNSP WITHOUT THYROTOXIC CRISIS OR STORM (6) New onset atrial fibrillation Code(s): I48.91 - UNSPECIFIED ATRIAL FIBRILLATION (7) Acute on chronic diastolic (congestive) heart failure Code(s): I50.33 - ACUTE ON CHRONIC DIASTOLIC (CONGESTIVE) HEART FAILURE (8) Asthma Code(s): J45.909 - UNSPECIFIED ASTHMA, UNCOMPLICATED Qualifiers: Asthma severity: mild Asthma persistence: intermittent Asthma complication type: unspecified Qualified Code(s): J45.20 - Mild intermittent asthma, uncomplicated (9) CAD (coronary artery disease) Code(s): I25.10 - ATHSCL HEART DISEASE OF [place] CORONARY ARTERY W/O ANG PCTRS Qualifiers: Coronary Disease-Associated Artery/Lesion type: [place] artery [place] vs. transplanted heart: [place] heart Associated angina: without angina Qualified Code(s): I25.10 - Atherosclerotic heart disease of [place] coronary artery without angina pectoris (10) Diabetes mellitus Code(s): E11.9 - TYPE 2 DIABETES MELLITUS WITHOUT COMPLICATIONS Qualifiers: Diabetes mellitus type: type 2 Diabetes mellitus jail insulin use: without termite control service representative use Diabetes mellitus complication status: without complication Qualified Code(s): E11.9 - Type 2 diabetes mellitus without complications (11) HTN (hypertension) Code(s): I10 - ESSENTIAL (PRIMARY) HYPERTENSION Qualifiers: Hypertension type: essential hypertension Qualified Code(s): I10 - Essential (primary) hypertension (12) Parkinson disease Code(s): G20 - PARKINSON'S DISEASE Assessment/Plan 83 y.o. female with PMH of DM, AFIB, HTN, HLD, CHF, hyperthyroidism, and Colon CA s/p Lt hemicolectomy on 02/22/19 with post-op wound infection discharged home on 03/02/19 on po antibiotics presenting with abd pain, purulent discharge from wound dehiscence site. CT Abd with bowel herniation into dehiscence site. Post-op Wound Infection Bowel herniation into wound s/p hemicolectomy for Colon CA DM AFIB CAD CHF HTN HLD Hyperthyroidism plan will stop abx wound care rest as per the team
[2019-03-12] MEDS: LOSARTAN POTASSIUM 25 MG TABLET PO SCH (11:36)
[2019-03-12] MEDS: METOPROLOL TARTRATE 50 MG TABLET (FP) PO SCH ×2 (11:45→22:31)
[2019-03-12] MEDS: BRIMONIDINE TARTRATE 0.2% OPHTHALMIC 5 ML BOTTLE OU SCH ×2 (13:14→22:32)
[2019-03-12] MEDS: ASCORBIC ACID 500 MG TABLET (FP) PO SCH (13:15)
[2019-03-12] MEDS: ZINC SULFATE 220 MG CAPSULE (FP) PO SCH (13:15)
[2019-03-12] MEDS: METHIMAZOLE 5 MG TABLET (FP) PO SCH (13:16)
[2019-03-12] MEDS: TIMOLOL 0.5% OPHTHALMIC SOL 5 ML BOTTLE OU SCH ×2 (13:21→22:33)
[2019-03-12] MEDS: ONDANSETRON 4 MG/2 ML VIAL IVPUSH PRN (13:58)
[2019-03-12] MEDS ORDERED: NITROGLYCERIN SUBLINGUAL 1/150 0.4 MG TAB SL PRN (14:12)
[2019-03-12] MEDS ORDERED: MAG HYDROX/AL HYDROX/SIMETH 30 ML UNIT-DOSE CUP PO ONE (14:14)
--- NOTE | 2019-03-12 14:18 | PN ---
Progress Note, Physician Chief Complaint: Abdominal Pain S/P Hemicolectomy History of Present Illness: Previous notes and events reviewed awake and alert NAD complain of chest pain with nausea wound vac connected and draining - Current Medication List Current Medications: Active Medications Acetaminophen (Tylenol -) 650 mg PO Q4H PRN PRN Reason: PAIN OR FEVER Last Admin: 03/09/19 22:30 Dose: 650 mg Acetaminophen (Ofirmev Injection -) 1,000 mg IVPB Q6H PRN PRN Reason: PAIN OR FEVER Last Admin: 03/11/19 10:13 Dose: 1,000 mg Amino Acids (Prosource No Carb Liquid Pkt) 30 ml PO BID@0800,1730 [facility] Last Admin: 03/12/19 08:27 Dose: 30 ml Apixaban (Eliquis -) 5 mg PO BID [facility] Last Admin: 03/12/19 10:51 Dose: 5 mg Ascorbic Acid (Vitamin C -) 500 mg PO DAILY [facility] Last Admin: 03/12/19 13:15 Dose: 500 mg Brimonidine Tartrate (Alphagan 0.2% -) 1 drop OU BID [facility] Last Admin: 03/12/19 13:14 Dose: 1 drop Docusate Sodium (Colace -) 100 mg PO TID [facility] Last Admin: 03/12/19 13:21 Dose: 100 mg Ferrous Sulfate (Feosol -) 325 mg PO DAILY [facility] Last Admin: 03/12/19 10:51 Dose: 325 mg Hydroxyzine HCl (Atarax -) 10 mg PO Q6H [facility] Last Admin: 03/12/19 11:45 Dose: 10 mg Latanoprost (Xalatan 0.005% Eye Drops -) 1 drop OU HS [facility] Last Admin: 03/11/19 22:01 Dose: 1 drop Losartan Potassium (Cozaar -) 25 mg PO DAILY [facility] Last Admin: 03/12/19 11:36 Dose: Not Given Megestrol Acetate (Megace -) 20 mg PO DAILY [facility] Last Admin: 03/12/19 10:51 Dose: 20 mg Melatonin (Melatonin) 3 mg PO HS [facility] Last Admin: 03/11/19 22:03 Dose: 3 mg Methimazole (Tapazole -) 5 mg PO DAILY [facility] Last Admin: 03/12/19 13:16 Dose: 5 mg Metoprolol Tartrate (Lopressor -) 50 mg PO BID [facility] Last Admin: 03/12/19 11:45 Dose: 50 mg Morphine Sulfate (Morphine Sulfate) 2 mg IVPUSH Q4H PRN PRN Reason: PAIN LEVEL 6-10 Last Admin: 03/12/19 08:49 Dose: 2 mg Nitroglycerin (Nitrostat -) 0.4 mg SL Q5M PRN PRN Reason: FOR CHEST PAIN Ondansetron HCl (Zofran Injection) 4 mg IVPUSH Q8H PRN PRN Reason: NAUSEA Last Admin: 03/12/19 13:58 Dose: 4 mg Oxycodone HCl (Roxicodone -) 5 mg PO Q6H PRN PRN Reason: PAIN LEVEL 7 - 10 Last Admin: 03/12/19 00:59 Dose: 5 mg Pantoprazole Sodium (Protonix Packets For Oral Suspension -) 40 mg PO DAILY [facility] Last Admin: 03/11/19 09:46 Dose: 40 mg Senna (Senna -) 1 tab PO BID [facility] Last Admin: 03/12/19 10:51 Dose: 1 tab Timolol Maleate (Timoptic 0.5%) 1 drop OU BID [facility] Last Admin: 03/12/19 13:21 Dose: 1 drop Zinc Sulfate (Orazinc -) 220 mg PO DAILY [facility] Last Admin: 03/12/19 13:15 Dose: 220 mg - Objective Vital Signs: Vital Signs Temperature 98.5 F 03/12/19 13:13 Pulse Rate 100 H 03/12/19 14:00 Respiratory Rate 20 03/12/19 14:00 Blood Pressure 155/86 03/12/19 14:00 O2 Sat by Pulse Oximetry (%) 99 03/12/19 09:00 Constitutional: Yes: No Distress, Calm Eyes: Yes: Conjunctiva Clear HENT: Yes: Atraumatic Cardiovascular: Yes: Regular Rate and Rhythm Respiratory: Yes: Regular, CTA Bilaterally Gastrointestinal: Yes: Normal Bowel Sounds, Soft, Tenderness (incisional) Genitourinary: Yes: Incontinence Musculoskeletal: Yes: Muscle Weakness Extremities: Yes: WNL Edema: No Wound/Incision: Yes: Dressing Dry and Intact, Other (connected to wound vac) Neurological: Yes: Alert, Pre-Existing Deficit Psychiatric: Yes: Alert, Oriented Labs: CBC, BMP 03/07/19 05:30 03/07/19 05:30 INR, PTT INR 1.34 (0.83-1.09) H 03/04/19 06:00 Problem List - Problems (1) Abdominal pain Assessment/Plan: -Surgery on board -on admission CT scan shows incisional hernia wth containing slightly dilated small bowel loop -wound vac -pain management -pending bed assignment to [facility] Code(s): R10.9 - UNSPECIFIED ABDOMINAL PAIN Qualifiers: Abdominal location: unspecified location Qualified Code(s): R10.9 - Unspecified abdominal pain (2) Afib Assessment/Plan: -continue Eliquis and Metoprolol -tele monitoring -cardiology on board Code(s): I48.91 - UNSPECIFIED ATRIAL FIBRILLATION Qualifiers: Atrial fibrillation type: chronic Qualified Code(s): I48.2 - Chronic atrial fibrillation (3) Anemia Assessment/Plan: -Monitor Hg -current Hg 8.7 -Ferrous Sulfate Code(s): D64.9 - ANEMIA, UNSPECIFIED (4) Obesity (BMI 30-39.9) Code(s): E66.9 - OBESITY, UNSPECIFIED (5) S/P left hemicolectomy Assessment/Plan: -surgery on bard -on admission CT scan shows incisional hernia wth containing slightly dilated small bowel loop -wound vac -pain management Code(s): Z90.49 - ACQUIRED ABSENCE OF OTHER SPECIFIED PARTS OF DIGESTIVE TRACT (6) HTN (hypertension) Assessment/Plan: -continue losartan -low Na diet Code(s): I10 - ESSENTIAL (PRIMARY) HYPERTENSION Qualifiers: Hypertension type: essential hypertension Qualified Code(s): I10 - Essential (primary) hypertension (7) Wound dehiscence, surgical Assessment/Plan: -Surgery on board -on admission CT scan shows incisional hernia wth containing slightly dilated small bowel loop -wound vac -pain management -ID on board -continue Augmentin Code(s): T81.31XA - DISRUPTION OF EXTERNAL OPERATION (SURGICAL) WOUND, NEC, INIT Qualifiers: Encounter type: subsequent encounter Qualified Code(s): T81.31XD - Disruption of external operation (surgical) wound, not elsewhere classified, subsequent encounter (8) Chest pain Assessment/Plan: -EKG stat shows afib -troponin stat Code(s): R07.9 - CHEST PAIN, UNSPECIFIED
[2019-03-12] MEDS: PANTOPRAZOLE SOD 40 MG SUSPENSION PACKET PO SCH (17:19)
--- NOTE | 2019-03-12 17:51 | EKG ---
Test Reason : Blood Pressure : / mmHG Vent. Rate : 095 BPM Atrial Rate : 119 BPM P-R Int : 000 ms QRS Dur : 134 ms QT Int : 392 ms P-R-T Axes : 000 -27 -35 degrees QTc Int : 492 ms ATRIAL FIBRILLATION RIGHT BUNDLE BRANCH BLOCK T WAVE ABNORMALITY, CONSIDER LATERAL ISCHEMIA ABNORMAL ECG WHEN COMPARED WITH ECG OF 03-MAR-2019 12:33, NO SIGNIFICANT CHANGE WAS FOUND Confirmed by JAY WHITFIELD MD ([id number]) on 03/12/2019 5:50:37 PM Referred By: Confirmed By:JAY WHITFIELD MD
[2019-03-12] MEDS: MELATONIN 1 MG TABLET PO SCH (22:31)
[2019-03-12] MEDS: LATANOPROST 0.005% OPHTH SOLN 2.5ML BOTTLE OU SCH (22:32)
[2019-03-13] MEDS: morphine SULFATE 4 MG/ML VIAL IVPUSH PRN ×4 (04:26→20:26)
[2019-03-13] MEDS: DOCUSATE SODIUM 100 MG CAPSULE (FP) PO SCH ×3 (05:10→22:58)
[2019-03-13] MEDS: hydrOXYzine HCL 10 MG TABLET PO SCH ×4 (05:11→22:58)
--- NOTE | 2019-03-13 06:41 | PN ---
Progress Note (short form) - Note Progress Note: Chief Complaint: Events noted, notes reviewed, denies any chest pain or dyspnea , complaining of persistent pain- surgical site History of Present Illness: Seen and examined. Events noted, notes reviewed, denies any chest pain or dyspnea, complaining of persistent pain- surgical site 02/04/2018 Echocardiography: Normal LV systolic function, mild LVH, mildly dilated ascending thoacic aorta, trace MR, trace TR and trace pericardial effusion DON: Normal LV size and function, mild MR, TR, mod AR, trace-mild ID Current Medications: Current Medications Acetaminophen (Tylenol -) 650 mg PO Q4H PRN PRN Reason: PAIN OR FEVER Last Admin: 03/09/19 22:30 Dose: 650 mg Acetaminophen (Ofirmev Injection -) 1,000 mg IVPB Q6H PRN PRN Reason: PAIN OR FEVER Last Admin: 03/13/19 10:23 Dose: 1,000 mg Amino Acids (Prosource No Carb Liquid Pkt) 30 ml PO BID@0800,1730 [facility] Last Admin: 03/13/19 08:42 Dose: 30 ml Apixaban (Eliquis -) 5 mg PO BID [facility] Last Admin: 03/13/19 09:04 Dose: 5 mg Ascorbic Acid (Vitamin C -) 500 mg PO DAILY [facility] Last Admin: 03/13/19 09:04 Dose: 500 mg Brimonidine Tartrate (Alphagan 0.2% -) 1 drop OU BID [facility] Last Admin: 03/13/19 10:16 Dose: 1 drop Docusate Sodium (Colace -) 100 mg PO TID [facility] Last Admin: 03/13/19 13:57 Dose: Not Given Ferrous Sulfate (Feosol -) 325 mg PO DAILY [facility] Last Admin: 03/13/19 09:04 Dose: 325 mg Hydroxyzine HCl (Atarax -) 10 mg PO Q6H [facility] Last Admin: 03/13/19 10:24 Dose: 10 mg Latanoprost (Xalatan 0.005% Eye Drops -) 1 drop OU HS [facility] Last Admin: 03/12/19 22:32 Dose: 1 drop Losartan Potassium (Cozaar -) 25 mg PO DAILY [facility] Last Admin: 03/13/19 09:04 Dose: 25 mg Megestrol Acetate (Megace -) 20 mg PO DAILY [facility] Last Admin: 03/13/19 10:16 Dose: 20 mg Melatonin (Melatonin) 3 mg PO [facility] Last Admin: 03/12/19 22:31 Dose: 3 mg Methimazole (Tapazole -) 5 mg PO DAILY [facility] Last Admin: 03/13/19 10:16 Dose: 5 mg Metoprolol Tartrate (Lopressor -) 50 mg PO BID [facility] Last Admin: 03/13/19 09:04 Dose: 50 mg Morphine Sulfate (Morphine Sulfate) 2 mg IVPUSH Q4H PRN PRN Reason: PAIN LEVEL 6-10 Last Admin: 03/13/19 08:41 Dose: 2 mg Nitroglycerin (Nitrostat -) 0.4 mg SL Q5M PRN PRN Reason: FOR CHEST PAIN Ondansetron HCl (Zofran Injection) 4 mg IVPUSH Q8H PRN PRN Reason: NAUSEA Last Admin: 03/12/19 13:58 Dose: 4 mg Oxycodone HCl (Roxicodone -) 5 mg PO Q6H PRN PRN Reason: PAIN LEVEL 7 - 10 Last Admin: 03/12/19 00:59 Dose: 5 mg Pantoprazole Sodium (Protonix Packets For Oral Suspension -) 40 mg PO DAILY [facility] Last Admin: 03/13/19 09:05 Dose: 40 mg Senna (Senna -) 1 tab PO BID [facility] Last Admin: 03/13/19 10:25 Dose: 1 tab Timolol Maleate (Timoptic 0.5%) 1 drop OU BID [facility] Last Admin: 03/13/19 09:05 Dose: 1 drop Zinc Sulfate (Orazinc -) 220 mg PO DAILY [facility] Last Admin: 03/13/19 10:25 Dose: 220 mg - Objective Vital Signs: Last Vital Signs Temp Pulse Resp BP Pulse Ox 98 F 92 H 20 110/58 L 99 03/13/19 02:00 03/13/19 02:00 03/13/19 02:00 03/13/19 02:00 03/12/19 21:00 Intake & Output 03/10/19 03/11/19 03/12/19 03/13/19 23:59 23:59 23:59 23:59 Intake Total 1080 1245 595 Output Total 50 Balance 1030 1245 595 Neck: Supple Negative JVD No bruit Respiratory: Diminished breath sounds at the bases Cardiovascular: S1, S2 Irregularly Irregular Gastrointestinal: Soft Benign Normal Bowel Sounds Ext: Trace Ankle Edema Labs: CBC, BMP 03/13/19 07:00 03/13/19 07:00 Hepatic Panel Total Bilirubin 0.4 mg/dL (0.2-1) 03/13/19 07:00 AST 16 U/L (15-37) 03/13/19 07:00 ALT 13 U/L (13-61) 03/13/19 07:00 Alkaline Phosphatase 88 U/L (45-117) 03/13/19 07:00 Albumin 1.9 g/dl (3.4-5.0) L 03/13/19 07:00 INR, PTT INR 1.34 (0.83-1.09) H 03/04/19 06:00 Assessment/Plan ASSESSMENT: 1. Post javi-colectomy for colon carcinoma with post-op wound infection and bowel herniation into dehiscence site 2. Persistent atrial fibrillation with periods of RVR on DOAC's/Eliquis 3. HTN 4. DM 5. Parkinson's disease 6. Hyperthyroidism PLAN: 1. Antibiotics as per the primary team 2. Continue Eliquis 3. Continue Lopressor, hemodynamics permitting 4. Continue Cozaar, hemodynamics permitting 5. Continue Tapazole 6. Pain management as per the primary team Meron Perera MD
[2019-03-13 07:38] LABS: HEMATOCRIT 28.8 % (32.4-45.2); HEMOGLOBIN 9.1 GM/dL (10.7-15.3); MCHC 31.6 g/dl (32.0-36.0); MEAN CELL VOLUME 75.9 fl (80-96); MEAN PLT VOLUME 6.9 fl (7.5-11.1); PLATELET COUNT 477 K/MM3 (134-434); RDW 33.2 % (11.6-15.6); WHITE BLOOD COUNT 6.8 K/mm3 (4.0-10.0)
[2019-03-13 08:04] LABS: ALBUMIN 1.9 g/dl (3.4-5.0); ALK PHOS 88 U/L (45-117); ANION GAP 6 MMOL/L (8-16); BILIRUBIN,TOTAL 0.4 mg/dL (0.2-1); BLOOD UREA NITROGEN 14 mg/dL (7-18); CALCIUM 8.3 mg/dL (8.5-10.1); CHLORIDE 111 mmol/L (98-107); CO2 28 mmol/L (21-32); CREATININE 0.6 mg/dL (0.55-1.3); GLUCOSE,RANDOM 97 mg/dL (74-106); POTASSIUM 3.9 mmol/L (3.5-5.1); SGOT/AST 16 U/L (15-37); SGPT/ALT 13 U/L (13-61); SODIUM 144 mmol/L (136-145); TOT PROT 5.5 g/dl (6.4-8.2)
[2019-03-13] MEDS: AMINO ACIDS/PROTEIN HYDROLYS 30 ML LIQUID.PKT PO SCH ×2 (08:42→19:44)
[2019-03-13] MEDS: FERROUS SO4 325 MG TABLET (FP) PO SCH (09:04)
[2019-03-13] MEDS: LOSARTAN POTASSIUM 25 MG TABLET PO SCH (09:04)
[2019-03-13] MEDS: METOPROLOL TARTRATE 50 MG TABLET (FP) PO SCH ×2 (09:04→22:58)
[2019-03-13] MEDS: ASCORBIC ACID 500 MG TABLET (FP) PO SCH (09:04)
[2019-03-13] MEDS: APIXABAN 5 MG TABLET PO SCH ×2 (09:04→22:58)
[2019-03-13] MEDS: PANTOPRAZOLE SOD 40 MG SUSPENSION PACKET PO SCH (09:05)
[2019-03-13] MEDS: TIMOLOL 0.5% OPHTHALMIC SOL 5 ML BOTTLE OU SCH ×2 (09:05→22:59)
[2019-03-13] MEDS: MEGESTROL ACETATE 20 MG TABLET PO SCH (10:16)
[2019-03-13] MEDS: METHIMAZOLE 5 MG TABLET (FP) PO SCH (10:16)
[2019-03-13] MEDS: BRIMONIDINE TARTRATE 0.2% OPHTHALMIC 5 ML BOTTLE OU SCH ×2 (10:16→22:59)
[2019-03-13] MEDS: ACETAMINOPHEN 1000 MG/100 ML VIAL (NON FORMULARY) IVPB PRN (10:23)
[2019-03-13] MEDS: ZINC SULFATE 220 MG CAPSULE (FP) PO SCH (10:25)
[2019-03-13] MEDS: SENNOSIDES 8.6MG TABLET (FP) PO SCH ×2 (10:25→22:58)
--- NOTE | 2019-03-13 12:11 | PN ---
Progress Note (short form) - Note Progress Note: Attending Surgeon POD #21 No c/o; states she is eating; continues to have copious purulent drainage from the proximal wound; having bowel movements abdo-soft; non tender; VAC in place distally; proximal wound open and granulating but w/purulent drainage WBC-nl new w/c pending results albumen-1.9 IMP: stable PLAN CT a/p to r/o enteroatmospheric fistula; await culture results; patient is not clinically septic. John Alvarado MD FACS
--- NOTE | 2019-03-13 13:28 | PN ---
Progress Note, Physician History of Present Illness: stable no new issues patient going for ct scan of the abd patient wbc has been normal no fevers drainage from the upper part of abd - Current Medication List Current Medications: Active Medications Acetaminophen (Tylenol -) 650 mg PO Q4H PRN PRN Reason: PAIN OR FEVER Last Admin: 03/09/19 22:30 Dose: 650 mg Acetaminophen (Ofirmev Injection -) 1,000 mg IVPB Q6H PRN PRN Reason: PAIN OR FEVER Last Admin: 03/13/19 10:23 Dose: 1,000 mg Amino Acids (Prosource No Carb Liquid Pkt) 30 ml PO BID@0800,1730 [facility] Last Admin: 03/13/19 08:42 Dose: 30 ml Apixaban (Eliquis -) 5 mg PO BID [facility] Last Admin: 03/13/19 09:04 Dose: 5 mg Ascorbic Acid (Vitamin C -) 500 mg PO DAILY [facility] Last Admin: 03/13/19 09:04 Dose: 500 mg Brimonidine Tartrate (Alphagan 0.2% -) 1 drop OU BID [facility] Last Admin: 03/13/19 10:16 Dose: 1 drop Docusate Sodium (Colace -) 100 mg PO TID [facility] Last Admin: 03/13/19 05:10 Dose: Not Given Ferrous Sulfate (Feosol -) 325 mg PO DAILY [facility] Last Admin: 03/13/19 09:04 Dose: 325 mg Hydroxyzine HCl (Atarax -) 10 mg PO Q6H [facility] Last Admin: 03/13/19 10:24 Dose: 10 mg Latanoprost (Xalatan 0.005% Eye Drops -) 1 drop OU [facility] Last Admin: 03/12/19 22:32 Dose: 1 drop Losartan Potassium (Cozaar -) 25 mg PO DAILY [facility] Last Admin: 03/13/19 09:04 Dose: 25 mg Megestrol Acetate (Megace -) 20 mg PO DAILY [facility] Last Admin: 03/13/19 10:16 Dose: 20 mg Melatonin (Melatonin) 3 mg PO HS [facility] Last Admin: 03/12/19 22:31 Dose: 3 mg Methimazole (Tapazole -) 5 mg PO DAILY [facility] Last Admin: 03/13/19 10:16 Dose: 5 mg Metoprolol Tartrate (Lopressor -) 50 mg PO BID [facility] Last Admin: 03/13/19 09:04 Dose: 50 mg Morphine Sulfate (Morphine Sulfate) 2 mg IVPUSH Q4H PRN PRN Reason: PAIN LEVEL 6-10 Last Admin: 03/13/19 08:41 Dose: 2 mg Nitroglycerin (Nitrostat -) 0.4 mg SL Q5M PRN PRN Reason: FOR CHEST PAIN Ondansetron HCl (Zofran Injection) 4 mg IVPUSH Q8H PRN PRN Reason: NAUSEA Last Admin: 03/12/19 13:58 Dose: 4 mg Oxycodone HCl (Roxicodone -) 5 mg PO Q6H PRN PRN Reason: PAIN LEVEL 7 - 10 Last Admin: 03/12/19 00:59 Dose: 5 mg Pantoprazole Sodium (Protonix Packets For Oral Suspension -) 40 mg PO DAILY [facility] Last Admin: 03/13/19 09:05 Dose: 40 mg Senna (Senna -) 1 tab PO BID [facility] Last Admin: 03/13/19 10:25 Dose: 1 tab Timolol Maleate (Timoptic 0.5%) 1 drop OU BID [facility] Last Admin: 03/13/19 09:05 Dose: 1 drop Zinc Sulfate (Orazinc -) 220 mg PO DAILY [facility] Last Admin: 03/13/19 10:25 Dose: 220 mg - Objective Vital Signs: Vital Signs Temperature 98 F 03/13/19 06:00 Pulse Rate 90 03/13/19 06:00 Respiratory Rate 20 03/13/19 06:00 Blood Pressure 107/62 03/13/19 06:00 O2 Sat by Pulse Oximetry (%) 99 03/12/19 21:00 Constitutional: Yes: No Distress, Calm, Obese Cardiovascular: Yes: S1, S2 Respiratory: Yes: Regular, CTA Bilaterally Gastrointestinal: Yes: Normal Bowel Sounds, Soft Musculoskeletal: Yes: WNL Extremities: Yes: WNL Wound/Incision: Yes: Dressing Dry and Intact, Draining Neurological: Yes: Alert, Oriented Psychiatric: Yes: Alert Labs: CBC, BMP 03/13/19 07:00 03/13/19 07:00 INR, PTT INR 1.34 (0.83-1.09) H 03/04/19 06:00 Assessment/Plan Problem List - Problems (1) Abdominal pain Code(s): R10.9 - UNSPECIFIED ABDOMINAL PAIN Qualifiers: Abdominal location: unspecified location Qualified Code(s): R10.9 - Unspecified abdominal pain (2) Obesity (BMI 30-39.9) Code(s): E66.9 - OBESITY, UNSPECIFIED (3) S/P left hemicolectomy Code(s): Z90.49 - ACQUIRED ABSENCE OF OTHER SPECIFIED PARTS OF DIGESTIVE TRACT (4) Colonic mass Code(s): K63.9 - DISEASE OF INTESTINE, UNSPECIFIED (5) Hyperthyroidism Code(s): E05.90 - THYROTOXICOSIS, UNSP WITHOUT THYROTOXIC CRISIS OR STORM (6) New onset atrial fibrillation Code(s): I48.91 - UNSPECIFIED ATRIAL FIBRILLATION (7) Acute on chronic diastolic (congestive) heart failure Code(s): I50.33 - ACUTE ON CHRONIC DIASTOLIC (CONGESTIVE) HEART FAILURE (8) Asthma Code(s): J45.909 - UNSPECIFIED ASTHMA, UNCOMPLICATED Qualifiers: Asthma severity: mild Asthma persistence: intermittent Asthma complication type: unspecified Qualified Code(s): J45.20 - Mild intermittent asthma, uncomplicated (9) CAD (coronary artery disease) Code(s): I25.10 - ATHSCL HEART DISEASE OF [place] CORONARY ARTERY W/O ANG PCTRS Qualifiers: Coronary Disease-Associated Artery/Lesion type: [place] artery [place] vs. transplanted heart: [place] heart Associated angina: without angina Qualified Code(s): I25.10 - Atherosclerotic heart disease of [place] coronary artery without angina pectoris (10) Diabetes mellitus Code(s): E11.9 - TYPE 2 DIABETES MELLITUS WITHOUT COMPLICATIONS Qualifiers: Diabetes mellitus type: type 2 Diabetes mellitus intermediate accountant insulin use: without retirement use Diabetes mellitus complication status: without complication Qualified Code(s): E11.9 - Type 2 diabetes mellitus without complications (11) HTN (hypertension) Code(s): I10 - ESSENTIAL (PRIMARY) HYPERTENSION Qualifiers: Hypertension type: essential hypertension Qualified Code(s): I10 - Essential (primary) hypertension (12) Parkinson disease Code(s): G20 - PARKINSON'S DISEASE Assessment/Plan 83 y.o. female with PMH of DM, AFIB, HTN, HLD, CHF, hyperthyroidism, and Colon CA s/p Lt hemicolectomy on 02/22/19 with post-op wound infection discharged home on 03/02/19 on po antibiotics presenting with abd pain, purulent discharge from wound dehiscence site. CT Abd with bowel herniation into dehiscence site. Post-op Wound Infection Bowel herniation into wound s/p hemicolectomy for Colon CA DM AFIB CAD CHF HTN HLD Hyperthyroidism plan continues to drain ct of abd to r/o fistula also cx of the wound done await for the result will decide on that if the patient needs abx currently will not start the abx
--- NOTE | 2019-03-13 15:21 | PN ---
Progress Note, Physician Chief Complaint: Abdominal Pain S/P Hemicolectomy History of Present Illness: Previous notes and events reviewed awake and alert NAD denies complaints of chest pain, SOB wound vac connected and draining pending Abd/Pelvic CT scan - Current Medication List Current Medications: Active Medications Acetaminophen (Tylenol -) 650 mg PO Q4H PRN PRN Reason: PAIN OR FEVER Last Admin: 03/09/19 22:30 Dose: 650 mg Acetaminophen (Ofirmev Injection -) 1,000 mg IVPB Q6H PRN PRN Reason: PAIN OR FEVER Last Admin: 03/13/19 10:23 Dose: 1,000 mg Amino Acids (Prosource No Carb Liquid Pkt) 30 ml PO BID@0800,1730 [facility] Last Admin: 03/13/19 08:42 Dose: 30 ml Apixaban (Eliquis -) 5 mg PO BID [facility] Last Admin: 03/13/19 09:04 Dose: 5 mg Ascorbic Acid (Vitamin C -) 500 mg PO DAILY [facility] Last Admin: 03/13/19 09:04 Dose: 500 mg Brimonidine Tartrate (Alphagan 0.2% -) 1 drop OU BID [facility] Last Admin: 03/13/19 10:16 Dose: 1 drop Docusate Sodium (Colace -) 100 mg PO TID [facility] Last Admin: 03/13/19 13:57 Dose: Not Given Ferrous Sulfate (Feosol -) 325 mg PO DAILY [facility] Last Admin: 03/13/19 09:04 Dose: 325 mg Hydroxyzine HCl (Atarax -) 10 mg PO Q6H [facility] Last Admin: 03/13/19 10:24 Dose: 10 mg Latanoprost (Xalatan 0.005% Eye Drops -) 1 drop OU HS [facility] Last Admin: 03/12/19 22:32 Dose: 1 drop Losartan Potassium (Cozaar -) 25 mg PO DAILY [facility] Last Admin: 03/13/19 09:04 Dose: 25 mg Megestrol Acetate (Megace -) 20 mg PO DAILY [facility] Last Admin: 03/13/19 10:16 Dose: 20 mg Melatonin (Melatonin) 3 mg PO HS [facility] Last Admin: 03/12/19 22:31 Dose: 3 mg Methimazole (Tapazole -) 5 mg PO DAILY [facility] Last Admin: 03/13/19 10:16 Dose: 5 mg Metoprolol Tartrate (Lopressor -) 50 mg PO BID [facility] Last Admin: 03/13/19 09:04 Dose: 50 mg Morphine Sulfate (Morphine Sulfate) 2 mg IVPUSH Q4H PRN PRN Reason: PAIN LEVEL 6-10 Last Admin: 03/13/19 08:41 Dose: 2 mg Nitroglycerin (Nitrostat -) 0.4 mg SL Q5M PRN PRN Reason: FOR CHEST PAIN Ondansetron HCl (Zofran Injection) 4 mg IVPUSH Q8H PRN PRN Reason: NAUSEA Last Admin: 03/12/19 13:58 Dose: 4 mg Oxycodone HCl (Roxicodone -) 5 mg PO Q6H PRN PRN Reason: PAIN LEVEL 7 - 10 Last Admin: 03/12/19 00:59 Dose: 5 mg Pantoprazole Sodium (Protonix Packets For Oral Suspension -) 40 mg PO DAILY [facility] Last Admin: 03/13/19 09:05 Dose: 40 mg Senna (Senna -) 1 tab PO BID [facility] Last Admin: 03/13/19 10:25 Dose: 1 tab Timolol Maleate (Timoptic 0.5%) 1 drop OU BID [facility] Last Admin: 03/13/19 09:05 Dose: 1 drop Zinc Sulfate (Orazinc -) 220 mg PO DAILY [facility] Last Admin: 03/13/19 10:25 Dose: 220 mg - Objective Vital Signs: Vital Signs Temperature 98 F 03/13/19 06:00 Pulse Rate 90 03/13/19 06:00 Respiratory Rate 20 03/13/19 06:00 Blood Pressure 107/62 03/13/19 06:00 O2 Sat by Pulse Oximetry (%) 99 03/12/19 21:00 Constitutional: Yes: No Distress, Calm Eyes: Yes: Conjunctiva Clear HENT: Yes: Atraumatic Cardiovascular: Yes: Pulse Irregular Respiratory: Yes: Regular, Diminished Gastrointestinal: Yes: Normal Bowel Sounds, Soft, Tenderness (diffuse), Other ( wound vac) Musculoskeletal: Yes: Muscle Weakness Extremities: Yes: WNL Wound/Incision: Yes: Dressing Dry and Intact Neurological: Yes: Alert, Oriented Psychiatric: Yes: Alert, Oriented Labs: CBC, BMP 03/13/19 07:00 03/13/19 07:00 INR, PTT INR 1.34 (0.83-1.09) H 03/04/19 06:00 Microbiology 03/12/19 17:03 Abdomen Gram Stain - Final 03/03/19 13:34 Blood - Peripheral Venous Blood Culture - Final NO GROWTH AFTER 5 DAYS INCUBATION 03/03/19 13:34 Blood - Peripheral Venous Blood Culture - Final NO GROWTH AFTER 5 DAYS INCUBATION 03/04/19 13:00 Abdomen Gram Stain - Final 03/04/19 13:00 Abdomen Wound Culture - Final Staphylococcus Coagulase Neg Streptococcus Anginosus Group 03/03/19 16:13 Urine - Urine Clean Catch Urine Culture - Final NO GROWTH OBTAINED Problem List - Problems (1) Abdominal pain Assessment/Plan: -Surgery on board -on admission CT scan shows incisional hernia wth containing slightly dilated small bowel loop -wound vac -pain management -pending bed assignment to LT[facility] Code(s): R10.9 - UNSPECIFIED ABDOMINAL PAIN Qualifiers: Abdominal location: unspecified location Qualified Code(s): R10.9 - Unspecified abdominal pain (2) Afib Assessment/Plan: -continue Eliquis and Metoprolol -tele monitoring -cardiology on board Code(s): I48.91 - UNSPECIFIED ATRIAL FIBRILLATION Qualifiers: Atrial fibrillation type: chronic Qualified Code(s): I48.2 - Chronic atrial fibrillation (3) Anemia Assessment/Plan: -Monitor Hg daily -current Hg 9.1 -Ferrous Sulfate Code(s): D64.9 - ANEMIA, UNSPECIFIED (4) Obesity (BMI 30-39.9) Code(s): E66.9 - OBESITY, UNSPECIFIED (5) S/P left hemicolectomy Assessment/Plan: -surgery on bard -on admission CT scan shows incisional hernia wth containing slightly dilated small bowel loop -wound vac -pain management Code(s): Z90.49 - ACQUIRED ABSENCE OF OTHER SPECIFIED PARTS OF DIGESTIVE TRACT (6) HTN (hypertension) Assessment/Plan: -continue losartan -low Na diet Code(s): I10 - ESSENTIAL (PRIMARY) HYPERTENSION Qualifiers: Hypertension type: essential hypertension Qualified Code(s): I10 - Essential (primary) hypertension (7) Wound dehiscence, surgical Assessment/Plan: -Surgery on board -on admission CT scan shows incisional hernia wth containing slightly dilated small bowel loop -no leukocystosis, aferbile -pending Abd/Pelvic CT scan to R/O enteroatmospheric fistula -pending repeat wound culture -wound vac -pain management -ID on board Code(s): T81.31XA - DISRUPTION OF EXTERNAL OPERATION (SURGICAL) WOUND, NEC, INIT Qualifiers: Encounter type: subsequent encounter Qualified Code(s): T81.31XD - Disruption of external operation (surgical) wound, not elsewhere classified, subsequent encounter (8) Chest pain Assessment/Plan: -resolved -troponin neg Code(s): R07.9 - CHEST PAIN, UNSPECIFIED Assessment/Plan see problem list DVT ppx LTAC for discharge
[2019-03-13] MEDS: MELATONIN 1 MG TABLET PO SCH (22:58)
[2019-03-13] MEDS: LATANOPROST 0.005% OPHTH SOLN 2.5ML BOTTLE OU SCH (22:59)
[2019-03-14] MEDS: ACETAMINOPHEN 1000 MG/100 ML VIAL (NON FORMULARY) IVPB PRN ×2 (02:32→22:42)
[2019-03-14] MEDS: hydrOXYzine HCL 10 MG TABLET PO SCH ×4 (06:04→22:42)
[2019-03-14] MEDS: DOCUSATE SODIUM 100 MG CAPSULE (FP) PO SCH ×3 (06:04→21:20)
[2019-03-14] MEDS: morphine SULFATE 4 MG/ML VIAL IVPUSH PRN ×2 (07:05→10:57)
[2019-03-14 07:53] LABS: HEMATOCRIT 26.4 % (32.4-45.2); HEMOGLOBIN 8.3 GM/dL (10.7-15.3); MCH 24.1 pg (25.7-33.7); MCHC 31.4 g/dl (32.0-36.0); MEAN CELL VOLUME 76.6 fl (80-96); MEAN PLT VOLUME 7.4 fl (7.5-11.1); PLATELET COUNT 397 K/MM3 (134-434); RBC 3.45 M/mm3 (3.60-5.2); RDW 33.7 % (11.6-15.6); WHITE BLOOD COUNT 6.2 K/mm3 (4.0-10.0)
[2019-03-14 07:57] LABS: ALBUMIN 1.8 g/dl (3.4-5.0); ALK PHOS 80 U/L (45-117); ANION GAP 7 MMOL/L (8-16); BILIRUBIN,TOTAL 0.4 mg/dL (0.2-1); BLOOD UREA NITROGEN 14 mg/dL (7-18); CALCIUM 8.5 mg/dL (8.5-10.1); CHLORIDE 111 mmol/L (98-107); CO2 28 mmol/L (21-32); CREATININE 0.7 mg/dL (0.55-1.3); GLUCOSE,RANDOM 106 mg/dL (74-106); POTASSIUM 4.1 mmol/L (3.5-5.1); SGOT/AST 13 U/L (15-37); SGPT/ALT 9 U/L (13-61); SODIUM 146 mmol/L (136-145); TOT PROT 4.9 g/dl (6.4-8.2)
[2019-03-14] MEDS: AMINO ACIDS/PROTEIN HYDROLYS 30 ML LIQUID.PKT PO SCH ×2 (09:28→17:46)
--- NOTE | 2019-03-14 10:21 | PN ---
Progress Note (short form) - Note Progress Note: POD #22 Resting comfortably without complaint. Daughter at bedside. Patient is eating a little bit of food. Continues to have copious purulent drainage from the proximal wound. + BMs ABD CT 03/13/19 results reviewed with Radiology Attending. Last Vital Signs Temp Pulse Resp BP Pulse Ox 97.5 F L 111 H 18 133/95 96 03/14/19 06:00 03/14/19 06:00 03/14/19 06:00 03/14/19 06:00 03/13/19 21:00 CBC, BMP 03/14/19 06:30 03/14/19 06:30 Gen: alert. nad. ABD: soft; NT; VAC in place distally (dressing removed on rounds...clean, + granulation tissue; proximal wound open and granulating but w/purulent drainage; malodorous (feculent) : diaper in place LE: soft; NT; neg edema bilat Problem List - Problems (1) S/P left hemicolectomy Assessment/Plan: POD #21 s/p Left Hemicoloectomy w/ splenic flexure takedown. Patient now with stable wound dehiscence to inferior pole of wound --> containing loop of small bowel (no signs of obstruction), non-toxic appearing. No leukocytosis. Poor nutritional status. VAC changed on rounds Supraumbilical wound irrigated and repacked on rounds (smells feculent) Nutritional Support --> Dietary following PT f/u Repeat wound culture pending Code(s): Z90.49 - ACQUIRED ABSENCE OF OTHER SPECIFIED PARTS OF DIGESTIVE TRACT
[2019-03-14] MEDS: SENNOSIDES 8.6MG TABLET (FP) PO SCH ×2 (11:02→21:20)
[2019-03-14] MEDS: ZINC SULFATE 220 MG CAPSULE (FP) PO SCH (11:02)
[2019-03-14] MEDS: ASCORBIC ACID 500 MG TABLET (FP) PO SCH (11:02)
[2019-03-14] MEDS: APIXABAN 5 MG TABLET PO SCH ×2 (11:03→21:30)
[2019-03-14] MEDS: FERROUS SO4 325 MG TABLET (FP) PO SCH ×2 (11:03→21:30)
[2019-03-14] MEDS: LOSARTAN POTASSIUM 25 MG TABLET PO SCH (11:03)
[2019-03-14] MEDS: PANTOPRAZOLE SOD 40 MG SUSPENSION PACKET PO SCH (11:03)
[2019-03-14] MEDS: METOPROLOL TARTRATE 50 MG TABLET (FP) PO SCH ×2 (11:05→21:30)
[2019-03-14] MEDS: METHIMAZOLE 5 MG TABLET (FP) PO SCH (11:21)
[2019-03-14] MEDS: MEGESTROL ACETATE 20 MG TABLET PO SCH (11:22)
[2019-03-14] MEDS: BRIMONIDINE TARTRATE 0.2% OPHTHALMIC 5 ML BOTTLE OU SCH ×2 (11:23→22:59)
[2019-03-14] MEDS: TIMOLOL 0.5% OPHTHALMIC SOL 5 ML BOTTLE OU SCH ×2 (11:24→22:59)
--- NOTE | 2019-03-14 11:41 | PN ---
Progress Note, Physician Chief Complaint: Abdominal pain History of Present Illness: NAD seen by Surgery s/p hemicolectomy Daughter at bedside Denies any pain at this time, expresses as more of discomfort Seen by surgical team this am Repeat wound cultures are pending afebrile Daughters c/o of decreased appetite, besides getting megastrol +sleep disturbance besides melatonin use. + anxiety 2/2 to disease process States morphine,oxycodone and tramadol doesn't help with pain. However, TYLENOL helps. - Current Medication List Current Medications: Active Medications Acetaminophen (Tylenol -) 650 mg PO Q4H PRN PRN Reason: PAIN OR FEVER Last Admin: 03/09/19 22:30 Dose: 650 mg Amino Acids (Prosource No Carb Liquid Pkt) 30 ml PO BID@0800,1730 [facility] Last Admin: 03/14/19 09:28 Dose: 30 ml Apixaban (Eliquis -) 5 mg PO BID [facility] Last Admin: 03/14/19 11:03 Dose: 5 mg Ascorbic Acid (Vitamin C -) 500 mg PO DAILY [facility] Last Admin: 03/14/19 11:02 Dose: 500 mg Brimonidine Tartrate (Alphagan 0.2% -) 1 drop OU BID [facility] Last Admin: 03/14/19 11:23 Dose: 1 drop Docusate Sodium (Colace -) 100 mg PO TID [facility] Last Admin: 03/14/19 06:04 Dose: 100 mg Ferrous Sulfate (Feosol -) 325 mg PO DAILY [facility] Last Admin: 03/14/19 11:03 Dose: 325 mg Hydroxyzine HCl (Atarax -) 10 mg PO Q6H [facility] Last Admin: 03/14/19 11:02 Dose: 10 mg Latanoprost (Xalatan 0.005% Eye Drops -) 1 drop OU HS [facility] Last Admin: 03/13/19 22:59 Dose: 1 drop Losartan Potassium (Cozaar -) 25 mg PO DAILY [facility] Last Admin: 03/14/19 11:03 Dose: 25 mg Megestrol Acetate (Megace -) 20 mg PO DAILY [facility] Last Admin: 03/14/19 11:22 Dose: 20 mg Melatonin (Melatonin) 3 mg PO HS [facility] Last Admin: 03/13/19 22:58 Dose: 3 mg Methimazole (Tapazole -) 5 mg PO DAILY [facility] Last Admin: 03/14/19 11:21 Dose: 5 mg Metoprolol Tartrate (Lopressor -) 50 mg PO BID [facility] Last Admin: 03/14/19 11:05 Dose: 50 mg Nitroglycerin (Nitrostat -) 0.4 mg SL Q5M PRN PRN Reason: FOR CHEST PAIN Ondansetron HCl (Zofran Injection) 4 mg IVPUSH Q8H PRN PRN Reason: NAUSEA Last Admin: 03/12/19 13:58 Dose: 4 mg Pantoprazole Sodium (Protonix Packets For Oral Suspension -) 40 mg PO DAILY [facility] Last Admin: 03/14/19 11:03 Dose: 40 mg Senna (Senna -) 1 tab PO BID [facility] Last Admin: 03/14/19 11:02 Dose: 1 tab Timolol Maleate (Timoptic 0.5%) 1 drop OU BID [facility] Last Admin: 03/14/19 11:24 Dose: 1 drop Zinc Sulfate (Orazinc -) 220 mg PO DAILY [facility] Last Admin: 03/14/19 11:02 Dose: 220 mg - Objective Vital Signs: Vital Signs Temperature 97.5 F L 03/14/19 06:00 Pulse Rate 111 H 03/14/19 06:00 Respiratory Rate 18 03/14/19 06:00 Blood Pressure 133/95 03/14/19 06:00 O2 Sat by Pulse Oximetry (%) 96 03/13/19 21:00 Constitutional: Yes: Well Nourished, No Distress, Calm Cardiovascular: Yes: Regular Rate and Rhythm Respiratory: Yes: Regular Gastrointestinal: Yes: Normal Bowel Sounds, Tenderness (incisional) Genitourinary: Yes: WNL Musculoskeletal: Yes: Muscle Weakness Extremities: Yes: WNL Edema: No Peripheral Pulses WNL: Yes Neurological: Yes: Alert, Oriented Psychiatric: Yes: Alert, Oriented Labs: CBC, BMP 03/14/19 06:30 03/14/19 06:30 INR, PTT INR 1.34 (0.83-1.09) H 03/04/19 06:00 Problem List - Problems (1) Afib Assessment/Plan: -restart eliquis -rate controlled -Tele monitor -Seen by Cardiology Code(s): I48.91 - UNSPECIFIED ATRIAL FIBRILLATION Qualifiers: Atrial fibrillation type: chronic Qualified Code(s): I48.2 - Chronic atrial fibrillation (2) Abdominal pain Assessment/Plan: -Seen by surgery -wound care -CT Abd revealed loop bowel herniating into dehiscence -Pain management as per pain scale with acetaminophen, tramadol and oxycodone -No surgical intervention as per surgery at this time -repeat wound cultures pending -afebrile Code(s): R10.9 - UNSPECIFIED ABDOMINAL PAIN Qualifiers: Abdominal location: unspecified location Qualified Code(s): R10.9 - Unspecified abdominal pain (3) Obesity (BMI 30-39.9) Code(s): E66.9 - OBESITY, UNSPECIFIED (4) S/P left hemicolectomy Assessment/Plan: -Seen by surgery -wound care -repeat wound cultures pending -CT Abd revealed loop bowel herniating into dehiscence -Pain management as per pain scale with acetaminophen -No surgical intervention as per surgery at this time -high protein diet Code(s): Z90.49 - ACQUIRED ABSENCE OF OTHER SPECIFIED PARTS OF DIGESTIVE TRACT (5) Hypokalemia Assessment/Plan: -2/2 NPO status -replenish with KCl 40 meq once -monitor trend Code(s): E87.6 - HYPOKALEMIA (6) Anemia Assessment/Plan: -Chronic -on Ferrous sulfate daily -monitor trend Code(s): D64.9 - ANEMIA, UNSPECIFIED (7) Anxiety as acute reaction to exceptional stress Assessment/Plan: -Start remeron, to help with sleep anxiety and appetite. Increase as needed. Code(s): F41.1 - GENERALIZED ANXIETY DISORDER; F43.0 - ACUTE STRESS REACTION Assessment/Plan see problem list Physical therapy-did well
--- NOTE | 2019-03-14 11:55 | PN ---
Progress Note, Physician - Current Medication List Current Medications: Active Medications Acetaminophen (Tylenol -) 650 mg PO Q4H PRN PRN Reason: PAIN OR FEVER Last Admin: 03/09/19 22:30 Dose: 650 mg Amino Acids (Prosource No Carb Liquid Pkt) 30 ml PO BID@0800,1730 [facility] Last Admin: 03/14/19 09:28 Dose: 30 ml Apixaban (Eliquis -) 5 mg PO BID [facility] Last Admin: 03/14/19 11:03 Dose: 5 mg Ascorbic Acid (Vitamin C -) 500 mg PO DAILY [facility] Last Admin: 03/14/19 11:02 Dose: 500 mg Brimonidine Tartrate (Alphagan 0.2% -) 1 drop OU BID [facility] Last Admin: 03/14/19 11:23 Dose: 1 drop Docusate Sodium (Colace -) 100 mg PO TID [facility] Last Admin: 03/14/19 06:04 Dose: 100 mg Ferrous Sulfate (Feosol -) 325 mg PO DAILY [facility] Last Admin: 03/14/19 11:03 Dose: 325 mg Hydroxyzine HCl (Atarax -) 10 mg PO Q6H [facility] Last Admin: 03/14/19 11:02 Dose: 10 mg Latanoprost (Xalatan 0.005% Eye Drops -) 1 drop OU [facility] Last Admin: 03/13/19 22:59 Dose: 1 drop Losartan Potassium (Cozaar -) 25 mg PO DAILY [facility] Last Admin: 03/14/19 11:03 Dose: 25 mg Megestrol Acetate (Megace -) 20 mg PO DAILY [facility] Last Admin: 03/14/19 11:22 Dose: 20 mg Melatonin (Melatonin) 3 mg PO HS [facility] Last Admin: 03/13/19 22:58 Dose: 3 mg Methimazole (Tapazole -) 5 mg PO DAILY [facility] Last Admin: 03/14/19 11:21 Dose: 5 mg Metoprolol Tartrate (Lopressor -) 50 mg PO BID [facility] Last Admin: 03/14/19 11:05 Dose: 50 mg Nitroglycerin (Nitrostat -) 0.4 mg SL Q5M PRN PRN Reason: FOR CHEST PAIN Ondansetron HCl (Zofran Injection) 4 mg IVPUSH Q8H PRN PRN Reason: NAUSEA Last Admin: 03/12/19 13:58 Dose: 4 mg Pantoprazole Sodium (Protonix Packets For Oral Suspension -) 40 mg PO DAILY [facility] Last Admin: 03/14/19 11:03 Dose: 40 mg Senna (Senna -) 1 tab PO BID [facility] Last Admin: 03/14/19 11:02 Dose: 1 tab Timolol Maleate (Timoptic 0.5%) 1 drop OU BID [facility] Last Admin: 03/14/19 11:24 Dose: 1 drop Zinc Sulfate (Orazinc -) 220 mg PO DAILY [facility] Last Admin: 03/14/19 11:02 Dose: 220 mg - Objective Vital Signs: Vital Signs Temperature 97.5 F L 03/14/19 06:00 Pulse Rate 111 H 03/14/19 06:00 Respiratory Rate 18 03/14/19 06:00 Blood Pressure 133/95 03/14/19 06:00 O2 Sat by Pulse Oximetry (%) 96 03/13/19 21:00 Labs: CBC, BMP 03/14/19 06:30 03/14/19 06:30 INR, PTT INR 1.34 (0.83-1.09) H 03/04/19 06:00
[2019-03-14] MEDS: ACETAMINOPHEN 325 MG TABLET (FP) PO PRN ×3 (12:14→20:06)
--- NOTE | 2019-03-14 18:29 | PN ---
Progress Note, Physician History of Present Illness: Remains in rate-controlled afib after resumption of Lopressor, wound vac changed and wound care provided. Not eating much. - Current Medication List Current Medications: Active Medications Acetaminophen (Tylenol -) 650 mg PO Q4H PRN PRN Reason: PAIN OR FEVER Last Admin: 03/14/19 16:07 Dose: 650 mg Amino Acids (Prosource No Carb Liquid Pkt) 30 ml PO BID@0800,1730 [facility] Last Admin: 03/14/19 17:46 Dose: 30 ml Apixaban (Eliquis -) 5 mg PO BID [facility] Last Admin: 03/14/19 11:03 Dose: 5 mg Ascorbic Acid (Vitamin C -) 500 mg PO DAILY [facility] Last Admin: 03/14/19 11:02 Dose: 500 mg Brimonidine Tartrate (Alphagan 0.2% -) 1 drop OU BID [facility] Last Admin: 03/14/19 11:23 Dose: 1 drop Docusate Sodium (Colace -) 100 mg PO TID [facility] Last Admin: 03/14/19 14:07 Dose: 100 mg Ferrous Sulfate (Feosol -) 325 mg PO BID [facility] Hydroxyzine HCl (Atarax -) 10 mg PO Q6H [facility] Last Admin: 03/14/19 17:46 Dose: 10 mg Latanoprost (Xalatan 0.005% Eye Drops -) 1 drop OU HS [facility] Last Admin: 03/13/19 22:59 Dose: 1 drop Losartan Potassium (Cozaar -) 25 mg PO DAILY [facility] Last Admin: 03/14/19 11:03 Dose: 25 mg Megestrol Acetate (Megace -) 20 mg PO DAILY [facility] Last Admin: 03/14/19 11:22 Dose: 20 mg Methimazole (Tapazole -) 5 mg PO DAILY [facility] Last Admin: 03/14/19 11:21 Dose: 5 mg Metoprolol Tartrate (Lopressor -) 50 mg PO BID [facility] Last Admin: 03/14/19 11:05 Dose: 50 mg Mirtazapine (Remeron -) 7.5 mg PO HS [facility] Nitroglycerin (Nitrostat -) 0.4 mg SL Q5M PRN PRN Reason: FOR CHEST PAIN Ondansetron HCl (Zofran Injection) 4 mg IVPUSH Q8H PRN PRN Reason: NAUSEA Last Admin: 03/12/19 13:58 Dose: 4 mg Pantoprazole Sodium (Protonix Packets For Oral Suspension -) 40 mg PO DAILY [facility] Last Admin: 03/14/19 11:03 Dose: 40 mg Senna (Senna -) 1 tab PO BID [facility] Last Admin: 03/14/19 11:02 Dose: 1 tab Timolol Maleate (Timoptic 0.5%) 1 drop OU BID [facility] Last Admin: 03/14/19 11:24 Dose: 1 drop Zinc Sulfate (Orazinc -) 220 mg PO DAILY [facility] Last Admin: 03/14/19 11:02 Dose: 220 mg - Objective Vital Signs: Vital Signs Temperature 99 F 03/14/19 13:22 Pulse Rate 92 H 03/14/19 13:22 Respiratory Rate 17 03/14/19 13:22 Blood Pressure 109/56 L 03/14/19 13:22 O2 Sat by Pulse Oximetry (%) 97 03/14/19 09:00 Constitutional: Yes: No Distress, Calm Neck: Yes: Supple Cardiovascular: Yes: Pulse Irregular Respiratory: Yes: Regular, Diminished Gastrointestinal: Yes: Soft, Hypoactive Bowel Sounds Edema: No Wound/Incision: Yes: Dressing Dry and Intact Labs: CBC, BMP 03/14/19 06:30 03/14/19 06:30 INR, PTT INR 1.34 (0.83-1.09) H 03/04/19 06:00 Problem List - Problems (1) Afib Code(s): I48.91 - UNSPECIFIED ATRIAL FIBRILLATION Qualifiers: Atrial fibrillation type: chronic Qualified Code(s): I48.2 - Chronic atrial fibrillation (2) S/P left hemicolectomy Code(s): Z90.49 - ACQUIRED ABSENCE OF OTHER SPECIFIED PARTS OF DIGESTIVE TRACT (3) Wound dehiscence, surgical Code(s): T81.31XA - DISRUPTION OF EXTERNAL OPERATION (SURGICAL) WOUND, NEC, INIT Qualifiers: Encounter type: subsequent encounter Qualified Code(s): T81.31XD - Disruption of external operation (surgical) wound, not elsewhere classified, subsequent encounter (4) Hyperthyroidism Code(s): E05.90 - THYROTOXICOSIS, UNSP WITHOUT THYROTOXIC CRISIS OR STORM (5) CAD (coronary artery disease) Code(s): I25.10 - ATHSCL HEART DISEASE OF [place] CORONARY ARTERY W/O ANG PCTRS Qualifiers: Coronary Disease-Associated Artery/Lesion type: [place] artery [place] vs. transplanted heart: [place] heart Associated angina: without angina Qualified Code(s): I25.10 - Atherosclerotic heart disease of [place] coronary artery without angina pectoris (6) CVA (cerebral vascular accident) Code(s): I63.9 - CEREBRAL INFARCTION, UNSPECIFIED Qualifiers: CVA mechanism: unspecified Qualified Code(s): I63.9 - Cerebral infarction, unspecified (7) HTN (hypertension) Code(s): I10 - ESSENTIAL (PRIMARY) HYPERTENSION Qualifiers: Hypertension type: essential hypertension Qualified Code(s): I10 - Essential (primary) hypertension Assessment/Plan 02/04/2018 Echo: Normal LV systolic function, mild LVH, mildly dilated ascending thoacic aorta, tr MR, tr TR and trace pericardial effusion DON: Normal LV size and fxn, mild MR, TR, mod AR, tr-mild [place] 1. Post hemicolectomy for colon CA with post-op wound infection and bowel herniation into dehiscence site 2. Persistent AF with RVR on DOAC 3. HTN 4. DM 5. Parkinson's disease 6. Hyperthyroidism PLAN: 1. Complete empiric antibiotic course 2. Continue Eliquis 5 bid 3. Continue Lopressor 50 bid and Cozaar 25 qd as hemodynamics tolerated 4. Continue Tapazole 5 tid 5. Surgery input noted. Continue wound vac care and wound care, encourage proper nutritional intake.
[2019-03-14] MEDS: MIRTAZAPINE 15 MG TABLET (FP) PO SCH (21:31)
[2019-03-14] MEDS: ONDANSETRON 4 MG/2 ML VIAL IVPUSH PRN (21:46)
[2019-03-14] MEDS: LATANOPROST 0.005% OPHTH SOLN 2.5ML BOTTLE OU SCH (22:00)
[2019-03-15] MEDS: hydrOXYzine HCL 10 MG TABLET PO SCH ×4 (04:40→22:44)
[2019-03-15] MEDS: ACETAMINOPHEN 1000 MG/100 ML VIAL (NON FORMULARY) IVPB PRN ×3 (04:42→21:27)
[2019-03-15] MEDS: ONDANSETRON 4 MG/2 ML VIAL IVPUSH PRN (05:44)
[2019-03-15] MEDS: DOCUSATE SODIUM 100 MG CAPSULE (FP) PO SCH ×3 (06:06→21:26)
[2019-03-15] MEDS ORDERED: PT OWN MED DRAWER 7, Y5N ONE (10:19)
[2019-03-15] MEDS: MEGESTROL ACETATE 20 MG TABLET PO SCH (10:46)
[2019-03-15] MEDS: LOSARTAN POTASSIUM 25 MG TABLET PO SCH (10:46)
[2019-03-15] MEDS: PANTOPRAZOLE SOD 40 MG SUSPENSION PACKET PO SCH (10:46)
[2019-03-15] MEDS: ASCORBIC ACID 500 MG TABLET (FP) PO SCH (10:46)
[2019-03-15] MEDS: AMINO ACIDS/PROTEIN HYDROLYS 30 ML LIQUID.PKT PO SCH ×2 (10:46→18:15)
[2019-03-15] MEDS: ZINC SULFATE 220 MG CAPSULE (FP) PO SCH (10:46)
[2019-03-15] MEDS: APIXABAN 5 MG TABLET PO SCH ×2 (10:47→21:25)
[2019-03-15] MEDS: METHIMAZOLE 5 MG TABLET (FP) PO SCH (10:47)
[2019-03-15] MEDS: METOPROLOL TARTRATE 50 MG TABLET (FP) PO SCH ×2 (10:47→21:26)
[2019-03-15] MEDS: FERROUS SO4 325 MG TABLET (FP) PO SCH ×2 (10:47→21:25)
[2019-03-15] MEDS: SENNOSIDES 8.6MG TABLET (FP) PO SCH ×2 (10:47→21:25)
[2019-03-15] MEDS: TIMOLOL 0.5% OPHTHALMIC SOL 5 ML BOTTLE OU SCH ×2 (10:52→21:37)
[2019-03-15] MEDS: BRIMONIDINE TARTRATE 0.2% OPHTHALMIC 5 ML BOTTLE OU SCH ×2 (10:52→21:37)
--- NOTE | 2019-03-15 11:51 | PN ---
Progress Note, Physician - Current Medication List Current Medications: Active Medications Acetaminophen (Ofirmev Injection -) 1,000 mg IVPB Q6H PRN PRN Reason: PAIN LEVEL 6-10 Last Admin: 03/15/19 04:42 Dose: 1,000 mg Amino Acids (Prosource No Carb Liquid Pkt) 30 ml PO BID@0800,1730 [facility] Last Admin: 03/15/19 10:46 Dose: 30 ml Apixaban (Eliquis -) 5 mg PO BID [facility] Last Admin: 03/15/19 10:47 Dose: 5 mg Ascorbic Acid (Vitamin C -) 500 mg PO DAILY [facility] Last Admin: 03/15/19 10:46 Dose: 500 mg Brimonidine Tartrate (Alphagan 0.2% -) 1 drop OU BID [facility] Last Admin: 03/15/19 10:52 Dose: 1 drop Docusate Sodium (Colace -) 100 mg PO TID [facility] Last Admin: 03/15/19 06:06 Dose: Not Given Ferrous Sulfate (Feosol -) 325 mg PO BID [facility] Last Admin: 03/15/19 10:47 Dose: 325 mg Hydroxyzine HCl (Atarax -) 10 mg PO Q6H [facility] Last Admin: 03/15/19 10:47 Dose: 10 mg Latanoprost (Xalatan 0.005% Eye Drops -) 1 drop OU [facility] Last Admin: 03/14/19 22:00 Dose: 1 drop Losartan Potassium (Cozaar -) 25 mg PO DAILY [facility] Last Admin: 03/15/19 10:46 Dose: 25 mg Megestrol Acetate (Megace -) 20 mg PO DAILY [facility] Last Admin: 03/15/19 10:46 Dose: 20 mg Methimazole (Tapazole -) 5 mg PO DAILY [facility] Last Admin: 03/15/19 10:47 Dose: 5 mg Metoprolol Tartrate (Lopressor -) 50 mg PO BID [facility] Last Admin: 03/15/19 10:47 Dose: 50 mg Mirtazapine (Remeron -) 7.5 mg PO HS [facility] Last Admin: 03/14/19 21:31 Dose: 7.5 mg Nitroglycerin (Nitrostat -) 0.4 mg SL Q5M PRN PRN Reason: FOR CHEST PAIN Ondansetron HCl (Zofran Injection) 4 mg IVPUSH Q8H PRN PRN Reason: NAUSEA Last Admin: 03/15/19 05:44 Dose: 4 mg Pantoprazole Sodium (Protonix Packets For Oral Suspension -) 40 mg PO DAILY [facility] Last Admin: 03/15/19 10:46 Dose: 40 mg Senna (Senna -) 1 tab PO BID [facility] Last Admin: 03/15/19 10:47 Dose: 1 tab Timolol Maleate (Timoptic 0.5%) 1 drop OU BID [facility] Last Admin: 03/15/19 10:52 Dose: 1 drop Zinc Sulfate (Orazinc -) 220 mg PO DAILY [facility] Last Admin: 03/15/19 10:46 Dose: 220 mg - Objective Vital Signs: Vital Signs Temperature 98.1 F 03/15/19 06:00 Pulse Rate 100 H 03/15/19 10:00 Respiratory Rate 18 03/15/19 10:00 Blood Pressure 116/70 03/15/19 10:00 O2 Sat by Pulse Oximetry (%) 97 03/14/19 21:00 Labs: CBC, BMP 03/14/19 06:30 03/14/19 06:30 INR, PTT INR 1.34 (0.83-1.09) H 03/04/19 06:00
--- NOTE | 2019-03-15 13:10 | PN ---
Progress Note, Physician History of Present Illness: Remains in rate-controlled afib after resumption of Lopressor, wound vac and wound care provided. Not eating much. - Current Medication List Current Medications: Active Medications Acetaminophen (Ofirmev Injection -) 1,000 mg IVPB Q6H PRN PRN Reason: PAIN LEVEL 6-10 Last Admin: 03/15/19 04:42 Dose: 1,000 mg Amino Acids (Prosource No Carb Liquid Pkt) 30 ml PO BID@0800,1730 [facility] Last Admin: 03/15/19 10:46 Dose: 30 ml Apixaban (Eliquis -) 5 mg PO BID [facility] Last Admin: 03/15/19 10:47 Dose: 5 mg Ascorbic Acid (Vitamin C -) 500 mg PO DAILY [facility] Last Admin: 03/15/19 10:46 Dose: 500 mg Brimonidine Tartrate (Alphagan 0.2% -) 1 drop OU BID [facility] Last Admin: 03/15/19 10:52 Dose: 1 drop Docusate Sodium (Colace -) 100 mg PO TID [facility] Last Admin: 03/15/19 06:06 Dose: Not Given Ferrous Sulfate (Feosol -) 325 mg PO BID [facility] Last Admin: 03/15/19 10:47 Dose: 325 mg Hydroxyzine HCl (Atarax -) 10 mg PO Q6H [facility] Last Admin: 03/15/19 10:47 Dose: 10 mg Latanoprost (Xalatan 0.005% Eye Drops -) 1 drop OU HS [facility] Last Admin: 03/14/19 22:00 Dose: 1 drop Losartan Potassium (Cozaar -) 25 mg PO DAILY [facility] Last Admin: 03/15/19 10:46 Dose: 25 mg Megestrol Acetate (Megace -) 20 mg PO DAILY [facility] Last Admin: 03/15/19 10:46 Dose: 20 mg Methimazole (Tapazole -) 5 mg PO DAILY [facility] Last Admin: 03/15/19 10:47 Dose: 5 mg Metoprolol Tartrate (Lopressor -) 50 mg PO BID [facility] Last Admin: 03/15/19 10:47 Dose: 50 mg Mirtazapine (Remeron -) 7.5 mg PO HS [facility] Last Admin: 03/14/19 21:31 Dose: 7.5 mg Nitroglycerin (Nitrostat -) 0.4 mg SL Q5M PRN PRN Reason: FOR CHEST PAIN Ondansetron HCl (Zofran Injection) 4 mg IVPUSH Q8H PRN PRN Reason: NAUSEA Last Admin: 03/15/19 05:44 Dose: 4 mg Pantoprazole Sodium (Protonix Packets For Oral Suspension -) 40 mg PO DAILY [facility] Last Admin: 03/15/19 10:46 Dose: 40 mg Senna (Senna -) 1 tab PO BID [facility] Last Admin: 03/15/19 10:47 Dose: 1 tab Timolol Maleate (Timoptic 0.5%) 1 drop OU BID [facility] Last Admin: 03/15/19 10:52 Dose: 1 drop Zinc Sulfate (Orazinc -) 220 mg PO DAILY [facility] Last Admin: 03/15/19 10:46 Dose: 220 mg - Objective Vital Signs: Vital Signs Temperature 98.1 F 03/15/19 06:00 Pulse Rate 100 H 03/15/19 10:00 Respiratory Rate 18 03/15/19 10:00 Blood Pressure 116/70 03/15/19 10:00 O2 Sat by Pulse Oximetry (%) 97 03/14/19 21:00 Constitutional: Yes: No Distress, Calm Neck: Yes: Supple Cardiovascular: Yes: Pulse Irregular Respiratory: Yes: Regular, Diminished Gastrointestinal: Yes: Soft, Hypoactive Bowel Sounds Edema: Yes Edema: LLE: Trace, RLE: Trace Labs: CBC, BMP 03/14/19 06:30 03/14/19 06:30 INR, PTT INR 1.34 (0.83-1.09) H 03/04/19 06:00 Problem List - Problems (1) Afib Code(s): I48.91 - UNSPECIFIED ATRIAL FIBRILLATION Qualifiers: Atrial fibrillation type: chronic Qualified Code(s): I48.2 - Chronic atrial fibrillation (2) S/P left hemicolectomy Code(s): Z90.49 - ACQUIRED ABSENCE OF OTHER SPECIFIED PARTS OF DIGESTIVE TRACT (3) Wound dehiscence, surgical Code(s): T81.31XA - DISRUPTION OF EXTERNAL OPERATION (SURGICAL) WOUND, NEC, INIT Qualifiers: Encounter type: subsequent encounter Qualified Code(s): T81.31XD - Disruption of external operation (surgical) wound, not elsewhere classified, subsequent encounter (4) Hyperthyroidism Code(s): E05.90 - THYROTOXICOSIS, UNSP WITHOUT THYROTOXIC CRISIS OR STORM (5) CAD (coronary artery disease) Code(s): I25.10 - ATHSCL HEART DISEASE OF [place] CORONARY ARTERY W/O ANG PCTRS Qualifiers: Coronary Disease-Associated Artery/Lesion type: [place] artery [place] vs. transplanted heart: [place] Associated angina: without angina Qualified Code(s): I25.10 - Atherosclerotic heart disease of [place] coronary artery without angina pectoris (6) CVA (cerebral vascular accident) Code(s): I63.9 - CEREBRAL INFARCTION, UNSPECIFIED Qualifiers: CVA mechanism: unspecified Qualified Code(s): I63.9 - Cerebral infarction, unspecified (7) HTN (hypertension) Code(s): I10 - ESSENTIAL (PRIMARY) HYPERTENSION Qualifiers: Hypertension type: essential hypertension Qualified Code(s): I10 - Essential (primary) hypertension Assessment/Plan 02/04/2018 Echo: Normal LV systolic function, mild LVH, mildly dilated ascending thoacic aorta, tr MR, tr TR and trace pericardial effusion DON: Normal LV size and fxn, mild MR, TR, mod AR, tr-mild [place] 1. Post hemicolectomy for colon CA with post-op wound infection and bowel herniation into dehiscence site 2. Persistent AF with RVR on DOAC 3. HTN 4. DM 5. Parkinson's disease 6. Hyperthyroidism PLAN: 1. Complete empiric antibiotic course 2. Continue Eliquis 5 bid 3. Continue Lopressor 50 bid and Cozaar 25 qd as hemodynamics tolerated 4. Continue Tapazole 5 tid 5. Surgery input noted. Continue wound vac care and wound care, encourage proper nutritional intake.
--- NOTE | 2019-03-15 13:22 | PN ---
Progress Note, Physician Chief Complaint: patient seen and examined eating food with aide - Current Medication List Current Medications: Active Medications Acetaminophen (Ofirmev Injection -) 1,000 mg IVPB Q6H PRN PRN Reason: PAIN LEVEL 6-10 Last Admin: 03/15/19 04:42 Dose: 1,000 mg Amino Acids (Prosource No Carb Liquid Pkt) 30 ml PO BID@0800,1730 [facility] Last Admin: 03/15/19 10:46 Dose: 30 ml Apixaban (Eliquis -) 5 mg PO BID [facility] Last Admin: 03/15/19 10:47 Dose: 5 mg Ascorbic Acid (Vitamin C -) 500 mg PO DAILY [facility] Last Admin: 03/15/19 10:46 Dose: 500 mg Brimonidine Tartrate (Alphagan 0.2% -) 1 drop OU BID [facility] Last Admin: 03/15/19 10:52 Dose: 1 drop Docusate Sodium (Colace -) 100 mg PO TID [facility] Last Admin: 03/15/19 06:06 Dose: Not Given Ferrous Sulfate (Feosol -) 325 mg PO BID [facility] Last Admin: 03/15/19 10:47 Dose: 325 mg Hydroxyzine HCl (Atarax -) 10 mg PO Q6H [facility] Last Admin: 03/15/19 10:47 Dose: 10 mg Latanoprost (Xalatan 0.005% Eye Drops -) 1 drop OU HS [facility] Last Admin: 03/14/19 22:00 Dose: 1 drop Losartan Potassium (Cozaar -) 25 mg PO DAILY [facility] Last Admin: 03/15/19 10:46 Dose: 25 mg Megestrol Acetate (Megace -) 20 mg PO DAILY [facility] Last Admin: 03/15/19 10:46 Dose: 20 mg Methimazole (Tapazole -) 5 mg PO DAILY [facility] Last Admin: 03/15/19 10:47 Dose: 5 mg Metoprolol Tartrate (Lopressor -) 50 mg PO BID [facility] Last Admin: 03/15/19 10:47 Dose: 50 mg Mirtazapine (Remeron -) 7.5 mg PO HS [facility] Last Admin: 03/14/19 21:31 Dose: 7.5 mg Nitroglycerin (Nitrostat -) 0.4 mg SL Q5M PRN PRN Reason: FOR CHEST PAIN Ondansetron HCl (Zofran Injection) 4 mg IVPUSH Q8H PRN PRN Reason: NAUSEA Last Admin: 03/15/19 05:44 Dose: 4 mg Pantoprazole Sodium (Protonix Packets For Oral Suspension -) 40 mg PO DAILY [facility] Last Admin: 03/15/19 10:46 Dose: 40 mg Senna (Senna -) 1 tab PO BID [facility] Last Admin: 03/15/19 10:47 Dose: 1 tab Timolol Maleate (Timoptic 0.5%) 1 drop OU BID [facility] Last Admin: 03/15/19 10:52 Dose: 1 drop Zinc Sulfate (Orazinc -) 220 mg PO DAILY [facility] Last Admin: 03/15/19 10:46 Dose: 220 mg - Objective Vital Signs: Vital Signs Temperature 98.1 F 03/15/19 06:00 Pulse Rate 100 H 03/15/19 10:00 Respiratory Rate 18 03/15/19 10:00 Blood Pressure 116/70 03/15/19 10:00 O2 Sat by Pulse Oximetry (%) 97 03/14/19 21:00 Constitutional: Yes: Calm Cardiovascular: Yes: Regular Rate and Rhythm, S1, S2 Respiratory: Yes: CTA Bilaterally Gastrointestinal: Yes: Normal Bowel Sounds, Soft, Other (wound vac) Neurological: Yes: Alert Labs: CBC, BMP 03/14/19 06:30 03/14/19 06:30 INR, PTT INR 1.34 (0.83-1.09) H 03/04/19 06:00 Problem List - Problems (1) Wound dehiscence, surgical Assessment/Plan: wound vac off abx high protein diet ensure magic cup bid zinc prostat ct scan done Microbiology 03/12/19 17:03 Abdomen Gram Stain - Final 03/12/19 17:03 Abdomen Wound Culture - Final Staphylococcus Coagulase Neg Alpha Hemolytic Streptococcus Code(s): T81.31XA - DISRUPTION OF EXTERNAL OPERATION (SURGICAL) WOUND, NEC, INIT Qualifiers: Encounter type: subsequent encounter Qualified Code(s): T81.31XD - Disruption of external operation (surgical) wound, not elsewhere classified, subsequent encounter (2) Afib Assessment/Plan: eliquis and lopressor Code(s): I48.91 - UNSPECIFIED ATRIAL FIBRILLATION Qualifiers: Atrial fibrillation type: chronic Qualified Code(s): I48.2 - Chronic atrial fibrillation (3) Hyperthyroidism Assessment/Plan: methimazole 5mg po tid seen by endocrine Code(s): E05.90 - THYROTOXICOSIS, UNSP WITHOUT THYROTOXIC CRISIS OR STORM (4) Anemia Assessment/Plan: oral iron Code(s): D64.9 - ANEMIA, UNSPECIFIED (5) Glaucoma Assessment/Plan: eye drops Code(s): H40.9 - UNSPECIFIED GLAUCOMA
--- NOTE | 2019-03-15 14:44 | PN ---
Progress Note (short form) - Note Progress Note: surigcal follow up for abdominal wound pain only relieved with iv tylenol will not take morphine iv and no oral oxycodone d/w ID wound culture start augmentin bid for 5 days Problem List - Problems (1) Wound dehiscence, surgical Code(s): T81.31XA - DISRUPTION OF EXTERNAL OPERATION (SURGICAL) WOUND, NEC, INIT Qualifiers: Encounter type: subsequent encounter Qualified Code(s): T81.31XD - Disruption of external operation (surgical) wound, not elsewhere classified, subsequent encounter (2) Afib Code(s): I48.91 - UNSPECIFIED ATRIAL FIBRILLATION Qualifiers: Atrial fibrillation type: chronic Qualified Code(s): I48.2 - Chronic atrial fibrillation (3) Hyperthyroidism Code(s): E05.90 - THYROTOXICOSIS, UNSP WITHOUT THYROTOXIC CRISIS OR STORM (4) Anemia Code(s): D64.9 - ANEMIA, UNSPECIFIED (5) Glaucoma Code(s): H40.9 - UNSPECIFIED GLAUCOMA
[2019-03-15] MEDS ORDERED: AMOX TR/POT CLAV 500MG/125MG TABLETS (FP) PO SCH (17:30)
[2019-03-15] MEDS: AMOX TR/POT CLAV 500MG/125MG TABLETS (FP) PO SCH (18:15)
[2019-03-15] MEDS: MIRTAZAPINE 15 MG TABLET (FP) PO SCH (21:25)
[2019-03-15] MEDS: LATANOPROST 0.005% OPHTH SOLN 2.5ML BOTTLE OU SCH (21:36)
[2019-03-16] MEDS: DOCUSATE SODIUM 100 MG CAPSULE (FP) PO SCH ×3 (05:50→22:03)
[2019-03-16] MEDS: hydrOXYzine HCL 10 MG TABLET PO SCH ×4 (05:50→22:37)
[2019-03-16] MEDS ORDERED: MORPHINE SULFATE 2 MG/ML VIAL IVPUSH ONE (06:00)
[2019-03-16] MEDS ORDERED: PT OWN MED DRAWER 7, Y5N ONE ×3 (08:42→18:44)
[2019-03-16] MEDS: AMINO ACIDS/PROTEIN HYDROLYS 30 ML LIQUID.PKT PO SCH ×2 (08:49→18:48)
[2019-03-16] MEDS: AMOX TR/POT CLAV 500MG/125MG TABLETS (FP) PO SCH ×2 (08:50→18:59)
[2019-03-16] MEDS ORDERED: ACETAMINOPHEN 1000 MG/100 ML VIAL (NON FORMULARY) IVPB PRN (09:45)
[2019-03-16] MEDS ORDERED: morphine SULFATE 4 MG/ML VIAL IVPUSH PRN (09:46)
--- NOTE | 2019-03-16 10:56 | PN ---
Progress Note (short form) - Note Progress Note: Attending Surgeon POD #24 Seen in f/u w/her daughter present at the bedside No c/o VSS AF abdo-VAC intact inferiorly; proximal locally debrided of non viable subcutaneous fat and suture materila removed w/markedly less drainage; o/w no change Culture results are not c/w an entero-atmospheric fistula. IMP: stable. PLAN: Patient continues to require the [facility] VAC for management of the inferior wound and physician supervise BID wound care for the superior aspect of the wound; pending placement at a SNF/[facility] for wound care. John Alvarado MD FACS
[2019-03-16] MEDS: ONDANSETRON 4 MG/2 ML VIAL IVPUSH PRN (11:42)
--- NOTE | 2019-03-16 11:56 | PN ---
Progress Note, Physician Chief Complaint: patient seen and examined wound opened by surgeon and packing done spoke to daughter regarding pain medications stop iv tylenol and iv morphine switch to oral tylenol and oral morphine - Current Medication List Current Medications: Active Medications Acetaminophen (Tylenol -) 650 mg PO Q6H PRN PRN Reason: PAIN LEVEL 1-5 Amino Acids (Prosource No Carb Liquid Pkt) 30 ml PO BID@0800,1730 [facility] Last Admin: 03/16/19 08:49 Dose: 30 ml Amoxicillin/Clavulanate Potassium (Augmentin - 500mg Tablet) 1 tab PO BID@0800, 1730 [facility] Stop: 03/20/19 17:29 Last Admin: 03/16/19 08:50 Dose: 1 tab Apixaban (Eliquis -) 5 mg PO BID [facility] Last Admin: 03/15/19 21:25 Dose: 5 mg Ascorbic Acid (Vitamin C -) 500 mg PO DAILY [facility] Last Admin: 03/15/19 10:46 Dose: 500 mg Brimonidine Tartrate (Alphagan 0.2% -) 1 drop OU BID [facility] Last Admin: 03/15/19 21:37 Dose: 1 drop Docusate Sodium (Colace -) 100 mg PO TID [facility] Last Admin: 03/16/19 05:50 Dose: 100 mg Ferrous Sulfate (Feosol -) 325 mg PO BID [facility] Last Admin: 03/15/19 21:25 Dose: 325 mg Hydroxyzine HCl (Atarax -) 10 mg PO Q6H [facility] Last Admin: 03/16/19 05:50 Dose: 10 mg Latanoprost (Xalatan 0.005% Eye Drops -) 1 drop OU [facility] Last Admin: 03/15/19 21:36 Dose: 1 drop Losartan Potassium (Cozaar -) 25 mg PO DAILY [facility] Last Admin: 03/15/19 10:46 Dose: 25 mg Megestrol Acetate (Megace -) 20 mg PO DAILY [facility] Last Admin: 03/15/19 10:46 Dose: 20 mg Methimazole (Tapazole -) 5 mg PO DAILY [facility] Last Admin: 03/15/19 10:47 Dose: 5 mg Metoprolol Tartrate (Lopressor -) 50 mg PO BID [facility] Last Admin: 03/15/19 21:26 Dose: 50 mg Mirtazapine (Remeron -) 7.5 mg PO HS [facility] Last Admin: 03/15/19 21:25 Dose: 7.5 mg Nitroglycerin (Nitrostat -) 0.4 mg SL Q5M PRN PRN Reason: FOR CHEST PAIN Ondansetron HCl (Zofran Injection) 4 mg IVPUSH Q8H PRN PRN Reason: NAUSEA Last Admin: 03/16/19 11:42 Dose: 4 mg Pantoprazole Sodium (Protonix -) 40 mg PO DAILY [facility] Senna (Senna -) 1 tab PO BID [facility] Last Admin: 03/15/19 21:25 Dose: 1 tab Timolol Maleate (Timoptic 0.5%) 1 drop OU BID [facility] Last Admin: 03/15/19 21:37 Dose: 1 drop Tramadol HCl (Ultram -) 50 mg PO Q6H PRN PRN Reason: PAIN LEVEL 7 - 10 Zinc Sulfate (Orazinc -) 220 mg PO DAILY [facility] Last Admin: 03/15/19 10:46 Dose: 220 mg - Objective Vital Signs: Vital Signs Temperature 98.5 F 03/16/19 10:27 Pulse Rate 110 H 03/16/19 10:27 Respiratory Rate 18 03/16/19 10:27 Blood Pressure 105/68 03/16/19 10:27 O2 Sat by Pulse Oximetry (%) 97 03/15/19 21:00 Constitutional: Yes: Calm Cardiovascular: Yes: Regular Rate and Rhythm, S1, S2 Respiratory: Yes: CTA Bilaterally Gastrointestinal: Yes: Normal Bowel Sounds, Soft, Other (midline superior wound opened and packed lower wound has VAC) Edema: No Neurological: Yes: Alert, Oriented Labs: CBC, BMP 03/14/19 06:30 03/14/19 06:30 INR, PTT INR 1.34 (0.83-1.09) H 03/04/19 06:00 Problem List - Problems (1) Wound dehiscence, surgical Assessment/Plan: wound vac to lower wound packing with gauze to the upper wound bid abx for 5 days high protein diet ensure magic cup bid zinc prostat ct scan done Microbiology 03/12/19 17:03 Abdomen Gram Stain - Final 03/12/19 17:03 Abdomen Wound Culture - Final Staphylococcus Coagulase Neg Alpha Hemolytic Streptococcus Code(s): T81.31XA - DISRUPTION OF EXTERNAL OPERATION (SURGICAL) WOUND, NEC, INIT Qualifiers: Encounter type: subsequent encounter Qualified Code(s): T81.31XD - Disruption of external operation (surgical) wound, not elsewhere classified, subsequent encounter (2) Afib Assessment/Plan: eliquis and lopressor Code(s): I48.91 - UNSPECIFIED ATRIAL FIBRILLATION Qualifiers: Atrial fibrillation type: chronic Qualified Code(s): I48.2 - Chronic atrial fibrillation (3) Hyperthyroidism Assessment/Plan: methimazole 5mg po tid seen by endocrine Code(s): E05.90 - THYROTOXICOSIS, UNSP WITHOUT THYROTOXIC CRISIS OR STORM (4) Anemia Assessment/Plan: oral iron Code(s): D64.9 - ANEMIA, UNSPECIFIED (5) Glaucoma Assessment/Plan: eye drops Code(s): H40.9 - UNSPECIFIED GLAUCOMA Assessment/Plan transfer to SNF with [facility] vac
[2019-03-16] MEDS: MAG HYDROX/AL HYDROX/SIMETH 30 ML UNIT-DOSE CUP PO SCH ×3 (12:09→22:11)
[2019-03-16] MEDS: BRIMONIDINE TARTRATE 0.2% OPHTHALMIC 5 ML BOTTLE OU SCH ×2 (12:13→22:13)
[2019-03-16] MEDS: TIMOLOL 0.5% OPHTHALMIC SOL 5 ML BOTTLE OU SCH ×2 (12:13→22:14)
[2019-03-16] MEDS: LOSARTAN POTASSIUM 25 MG TABLET PO SCH (12:50)
[2019-03-16] MEDS: PANTOPRAZOLE 40 MG TABLET (FP) PO SCH (12:50)
[2019-03-16] MEDS: METOPROLOL TARTRATE 50 MG TABLET (FP) PO SCH ×2 (12:50→22:15)
[2019-03-16] MEDS: APIXABAN 5 MG TABLET PO SCH ×2 (12:50→22:10)
[2019-03-16] MEDS: ZINC SULFATE 220 MG CAPSULE (FP) PO SCH (14:21)
[2019-03-16] MEDS: ASCORBIC ACID 500 MG TABLET (FP) PO SCH (14:21)
[2019-03-16] MEDS: SENNOSIDES 8.6MG TABLET (FP) PO SCH ×2 (14:22→22:03)
[2019-03-16] MEDS: METHIMAZOLE 5 MG TABLET (FP) PO SCH (14:22)
[2019-03-16] MEDS: MEGESTROL ACETATE 20 MG TABLET PO SCH (14:22)
[2019-03-16] MEDS: FERROUS SO4 325 MG TABLET (FP) PO SCH ×2 (14:22→22:10)
[2019-03-16] MEDS: traMADol HCL 50 MG TABLET PO PRN ×2 (14:29→22:37)
--- NOTE | 2019-03-16 15:01 | PN ---
Progress Note, Physician - Current Medication List Current Medications: Active Medications Acetaminophen (Tylenol -) 650 mg PO Q6H PRN PRN Reason: PAIN LEVEL 1-5 Al Hydroxide/Mg Hydroxide (Mylanta Oral Suspension -) 30 ml PO TID [facility] Last Admin: 03/16/19 14:23 Dose: Not Given Amino Acids (Prosource No Carb Liquid Pkt) 30 ml PO BID@0800,1730 [facility] Last Admin: 03/16/19 08:49 Dose: 30 ml Amoxicillin/Clavulanate Potassium (Augmentin - 500mg Tablet) 1 tab PO BID@0800, 1730 [facility] Stop: 03/20/19 17:29 Last Admin: 03/16/19 08:50 Dose: 1 tab Apixaban (Eliquis -) 5 mg PO BID [facility] Last Admin: 03/16/19 12:50 Dose: 5 mg Ascorbic Acid (Vitamin C -) 500 mg PO DAILY [facility] Last Admin: 03/16/19 14:21 Dose: 500 mg Brimonidine Tartrate (Alphagan 0.2% -) 1 drop OU BID [facility] Last Admin: 03/16/19 12:13 Dose: 1 drop Docusate Sodium (Colace -) 100 mg PO TID [facility] Last Admin: 03/16/19 14:23 Dose: Not Given Ferrous Sulfate (Feosol -) 325 mg PO BID [facility] Last Admin: 03/16/19 14:22 Dose: 325 mg Hydroxyzine HCl (Atarax -) 10 mg PO Q6H [facility] Last Admin: 03/16/19 12:50 Dose: 10 mg Latanoprost (Xalatan 0.005% Eye Drops -) 1 drop OU [facility] Last Admin: 03/15/19 21:36 Dose: 1 drop Losartan Potassium (Cozaar -) 25 mg PO DAILY [facility] Last Admin: 03/16/19 12:50 Dose: 25 mg Megestrol Acetate (Megace -) 20 mg PO DAILY [facility] Last Admin: 03/16/19 14:22 Dose: 20 mg Methimazole (Tapazole -) 5 mg PO DAILY [facility] Last Admin: 03/16/19 14:22 Dose: 5 mg Metoprolol Tartrate (Lopressor -) 50 mg PO BID [facility] Last Admin: 03/16/19 12:50 Dose: 50 mg Mirtazapine (Remeron -) 7.5 mg PO [facility] Last Admin: 03/15/19 21:25 Dose: 7.5 mg Nitroglycerin (Nitrostat -) 0.4 mg SL Q5M PRN PRN Reason: FOR CHEST PAIN Ondansetron HCl (Zofran Injection) 4 mg IVPUSH Q8H PRN PRN Reason: NAUSEA Last Admin: 03/16/19 11:42 Dose: 4 mg Pantoprazole Sodium (Protonix -) 40 mg PO DAILY [facility] Last Admin: 03/16/19 12:50 Dose: 40 mg Senna (Senna -) 1 tab PO BID [facility] Last Admin: 03/16/19 14:22 Dose: Not Given Timolol Maleate (Timoptic 0.5%) 1 drop OU BID [facility] Last Admin: 03/16/19 12:13 Dose: 1 drop Tramadol HCl (Ultram -) 50 mg PO Q6H PRN PRN Reason: PAIN LEVEL 7 - 10 Last Admin: 03/16/19 14:29 Dose: 50 mg Zinc Sulfate (Orazinc -) 220 mg PO DAILY [facility] Last Admin: 03/16/19 14:21 Dose: 220 mg - Objective Vital Signs: Vital Signs Temperature 98.5 F 03/16/19 10:27 Pulse Rate 110 H 03/16/19 10:27 Respiratory Rate 18 03/16/19 10:27 Blood Pressure 105/68 03/16/19 10:27 O2 Sat by Pulse Oximetry (%) 97 03/16/19 09:00 Labs: CBC, BMP 03/14/19 06:30 03/14/19 06:30 INR, PTT INR 1.34 (0.83-1.09) H 03/04/19 06:00
[2019-03-16] MEDS: ACETAMINOPHEN 325 MG TABLET (FP) PO PRN (16:48)
--- NOTE | 2019-03-16 18:30 | PN ---
Progress Note, Physician History of Present Illness: Remains in rate-controlled afib after resumption of Lopressor, wound vac and wound care provided. Still not eating much. - Current Medication List Current Medications: Active Medications Acetaminophen (Tylenol -) 650 mg PO Q6H PRN PRN Reason: PAIN LEVEL 1-5 Last Admin: 03/16/19 16:48 Dose: 650 mg Al Hydroxide/Mg Hydroxide (Mylanta Oral Suspension -) 30 ml PO TID [facility] Last Admin: 03/16/19 14:23 Dose: Not Given Amino Acids (Prosource No Carb Liquid Pkt) 30 ml PO BID@0800,1730 [facility] Last Admin: 03/16/19 08:49 Dose: 30 ml Amoxicillin/Clavulanate Potassium (Augmentin - 500mg Tablet) 1 tab PO BID@0800, 1730 [facility] Stop: 03/20/19 17:29 Last Admin: 03/16/19 08:50 Dose: 1 tab Apixaban (Eliquis -) 5 mg PO BID [facility] Last Admin: 03/16/19 12:50 Dose: 5 mg Ascorbic Acid (Vitamin C -) 500 mg PO DAILY [facility] Last Admin: 03/16/19 14:21 Dose: 500 mg Brimonidine Tartrate (Alphagan 0.2% -) 1 drop OU BID [facility] Last Admin: 03/16/19 12:13 Dose: 1 drop Docusate Sodium (Colace -) 100 mg PO TID [facility] Last Admin: 03/16/19 14:23 Dose: Not Given Ferrous Sulfate (Feosol -) 325 mg PO BID [facility] Last Admin: 03/16/19 14:22 Dose: 325 mg Hydroxyzine HCl (Atarax -) 10 mg PO Q6H [facility] Last Admin: 03/16/19 16:49 Dose: 10 mg Latanoprost (Xalatan 0.005% Eye Drops -) 1 drop OU HS [facility] Last Admin: 03/15/19 21:36 Dose: 1 drop Losartan Potassium (Cozaar -) 25 mg PO DAILY [facility] Last Admin: 03/16/19 12:50 Dose: 25 mg Megestrol Acetate (Megace -) 20 mg PO DAILY [facility] Last Admin: 03/16/19 14:22 Dose: 20 mg Methimazole (Tapazole -) 5 mg PO DAILY [facility] Last Admin: 03/16/19 14:22 Dose: 5 mg Metoprolol Tartrate (Lopressor -) 50 mg PO BID [facility] Last Admin: 03/16/19 12:50 Dose: 50 mg Mirtazapine (Remeron -) 7.5 mg PO HS [facility] Last Admin: 03/15/19 21:25 Dose: 7.5 mg Nitroglycerin (Nitrostat -) 0.4 mg SL Q5M PRN PRN Reason: FOR CHEST PAIN Ondansetron HCl (Zofran Injection) 4 mg IVPUSH Q8H PRN PRN Reason: NAUSEA Last Admin: 03/16/19 11:42 Dose: 4 mg Pantoprazole Sodium (Protonix -) 40 mg PO DAILY [facility] Last Admin: 03/16/19 12:50 Dose: 40 mg Senna (Senna -) 1 tab PO BID [facility] Last Admin: 03/16/19 14:22 Dose: Not Given Timolol Maleate (Timoptic 0.5%) 1 drop OU BID [facility] Last Admin: 03/16/19 12:13 Dose: 1 drop Tramadol HCl (Ultram -) 50 mg PO Q6H PRN PRN Reason: PAIN LEVEL 7 - 10 Last Admin: 03/16/19 14:29 Dose: 50 mg Zinc Sulfate (Orazinc -) 220 mg PO DAILY [facility] Last Admin: 03/16/19 14:21 Dose: 220 mg - Objective Vital Signs: Vital Signs Temperature 97.5 F L 03/16/19 14:12 Pulse Rate 104 H 03/16/19 14:12 Respiratory Rate 18 03/16/19 14:12 Blood Pressure 94/58 L 03/16/19 14:12 O2 Sat by Pulse Oximetry (%) 97 03/16/19 09:00 Constitutional: Yes: No Distress, Calm Neck: Yes: Supple Cardiovascular: Yes: Pulse Irregular Respiratory: Yes: Regular, Diminished Gastrointestinal: Yes: Soft, Hypoactive Bowel Sounds Edema: No Wound/Incision: Yes: Dressing Dry and Intact Labs: CBC, BMP 03/14/19 06:30 03/14/19 06:30 INR, PTT INR 1.34 (0.83-1.09) H 03/04/19 06:00 Problem List - Problems (1) Afib Code(s): I48.91 - UNSPECIFIED ATRIAL FIBRILLATION Qualifiers: Atrial fibrillation type: chronic Qualified Code(s): I48.2 - Chronic atrial fibrillation (2) S/P left hemicolectomy Code(s): Z90.49 - ACQUIRED ABSENCE OF OTHER SPECIFIED PARTS OF DIGESTIVE TRACT (3) Wound dehiscence, surgical Code(s): T81.31XA - DISRUPTION OF EXTERNAL OPERATION (SURGICAL) WOUND, NEC, INIT Qualifiers: Encounter type: subsequent encounter Qualified Code(s): T81.31XD - Disruption of external operation (surgical) wound, not elsewhere classified, subsequent encounter (4) Hyperthyroidism Code(s): E05.90 - THYROTOXICOSIS, UNSP WITHOUT THYROTOXIC CRISIS OR STORM (5) CAD (coronary artery disease) Code(s): I25.10 - ATHSCL HEART DISEASE OF [place] CORONARY ARTERY W/O ANG PCTRS Qualifiers: Coronary Disease-Associated Artery/Lesion type: [place] artery [place] vs. transplanted heart: [place] heart Associated angina: without angina Qualified Code(s): I25.10 - Atherosclerotic heart disease of [place] coronary artery without angina pectoris (6) CVA (cerebral vascular accident) Code(s): I63.9 - CEREBRAL INFARCTION, UNSPECIFIED Qualifiers: CVA mechanism: unspecified Qualified Code(s): I63.9 - Cerebral infarction, unspecified (7) HTN (hypertension) Code(s): I10 - ESSENTIAL (PRIMARY) HYPERTENSION Qualifiers: Hypertension type: essential hypertension Qualified Code(s): I10 - Essential (primary) hypertension Assessment/Plan 02/04/2018 Echo: Normal LV systolic function, mild LVH, mildly dilated ascending thoacic aorta, tr MR, tr TR and trace pericardial effusion DON: Normal LV size and fxn, mild MR, TR, mod AR, tr-mild OK 1. Post hemicolectomy for colon CA with post-op wound infection and bowel herniation into dehiscence site 2. Persistent AF with RVR on DOAC 3. HTN 4. DM 5. Parkinson's disease 6. Hyperthyroidism PLAN: 1. Complete empiric oral antibiotic course 2. Continue Eliquis 5 bid 3. Continue Lopressor 50 bid and Cozaar 25 qd as hemodynamics tolerated 4. Continue Tapazole 5 tid 5. Surgery input noted. Continue wound vac care and wound care, encourage proper nutritional intake.
[2019-03-16] MEDS: MIRTAZAPINE 15 MG TABLET (FP) PO SCH (22:12)
[2019-03-16] MEDS: LATANOPROST 0.005% OPHTH SOLN 2.5ML BOTTLE OU SCH (22:13)
[2019-03-17] MEDS: ACETAMINOPHEN 325 MG TABLET (FP) PO PRN (00:14)
[2019-03-17] MEDS: DOCUSATE SODIUM 100 MG CAPSULE (FP) PO SCH ×3 (05:44→21:23)
[2019-03-17] MEDS: hydrOXYzine HCL 10 MG TABLET PO SCH ×4 (05:44→23:53)
[2019-03-17] MEDS: MAG HYDROX/AL HYDROX/SIMETH 30 ML UNIT-DOSE CUP PO SCH ×3 (05:44→21:24)
[2019-03-17] MEDS: traMADol HCL 50 MG TABLET PO PRN ×2 (05:45→20:24)
[2019-03-17] MEDS ORDERED: PT OWN MED DRAWER 7, Y5N ONE ×3 (08:55→17:56)
[2019-03-17] MEDS: AMINO ACIDS/PROTEIN HYDROLYS 30 ML LIQUID.PKT PO SCH ×2 (08:56→18:03)
[2019-03-17] MEDS: AMOX TR/POT CLAV 500MG/125MG TABLETS (FP) PO SCH ×2 (08:57→18:04)
[2019-03-17] MEDS: ZINC SULFATE 220 MG CAPSULE (FP) PO SCH (11:12)
[2019-03-17] MEDS: APIXABAN 5 MG TABLET PO SCH ×2 (11:12→21:23)
[2019-03-17] MEDS: SENNOSIDES 8.6MG TABLET (FP) PO SCH ×2 (11:13→21:24)
[2019-03-17] MEDS: PANTOPRAZOLE 40 MG TABLET (FP) PO SCH (11:13)
[2019-03-17] MEDS: MEGESTROL ACETATE 20 MG TABLET PO SCH (11:13)
[2019-03-17] MEDS: ASCORBIC ACID 500 MG TABLET (FP) PO SCH (11:13)
[2019-03-17] MEDS: FERROUS SO4 325 MG TABLET (FP) PO SCH ×2 (11:14→21:23)
[2019-03-17] MEDS: METHIMAZOLE 5 MG TABLET (FP) PO SCH (11:15)
[2019-03-17] MEDS: LOSARTAN POTASSIUM 25 MG TABLET PO SCH (11:17)
[2019-03-17] MEDS: METOPROLOL TARTRATE 50 MG TABLET (FP) PO SCH ×2 (11:17→21:23)
[2019-03-17] MEDS: BRIMONIDINE TARTRATE 0.2% OPHTHALMIC 5 ML BOTTLE OU SCH ×2 (11:18→21:22)
[2019-03-17] MEDS: TIMOLOL 0.5% OPHTHALMIC SOL 5 ML BOTTLE OU SCH ×2 (11:19→21:22)
--- NOTE | 2019-03-17 11:56 | PN ---
Progress Note, Physician Chief Complaint: Abdominal Pain S/P Hemicolectomy History of Present Illness: Previous notes and events reviewed awake and alert NAD denies complaints of chest pain, SOB wound vac connected and draining - Current Medication List Current Medications: Active Medications Acetaminophen (Tylenol -) 650 mg PO Q6H PRN PRN Reason: PAIN LEVEL 1-5 Last Admin: 03/17/19 00:14 Dose: 650 mg Al Hydroxide/Mg Hydroxide (Mylanta Oral Suspension -) 30 ml PO TID [facility] Last Admin: 03/17/19 05:44 Dose: 30 ml Amino Acids (Prosource No Carb Liquid Pkt) 30 ml PO BID@0800,1730 [facility] Last Admin: 03/17/19 08:56 Dose: 30 ml Amoxicillin/Clavulanate Potassium (Augmentin - 500mg Tablet) 1 tab PO BID@0800, 1730 [facility] Stop: 03/20/19 17:29 Last Admin: 03/17/19 08:57 Dose: 1 tab Apixaban (Eliquis -) 5 mg PO BID [facility] Last Admin: 03/17/19 11:12 Dose: 5 mg Ascorbic Acid (Vitamin C -) 500 mg PO DAILY [facility] Last Admin: 03/17/19 11:13 Dose: 500 mg Brimonidine Tartrate (Alphagan 0.2% -) 1 drop OU BID [facility] Last Admin: 03/17/19 11:18 Dose: 1 drop Docusate Sodium (Colace -) 100 mg PO TID [facility] Last Admin: 03/17/19 05:44 Dose: 100 mg Ferrous Sulfate (Feosol -) 325 mg PO BID [facility] Last Admin: 03/17/19 11:14 Dose: 325 mg Hydroxyzine HCl (Atarax -) 10 mg PO Q6H [facility] Last Admin: 03/17/19 11:13 Dose: 10 mg Latanoprost (Xalatan 0.005% Eye Drops -) 1 drop OU HS [facility] Last Admin: 03/16/19 22:13 Dose: 1 drop Losartan Potassium (Cozaar -) 25 mg PO DAILY [facility] Last Admin: 03/17/19 11:17 Dose: 25 mg Megestrol Acetate (Megace -) 20 mg PO DAILY [facility] Last Admin: 03/17/19 11:13 Dose: 20 mg Methimazole (Tapazole -) 5 mg PO DAILY [facility] Last Admin: 03/17/19 11:15 Dose: 5 mg Metoprolol Tartrate (Lopressor -) 50 mg PO BID [facility] Last Admin: 03/17/19 11:17 Dose: 50 mg Mirtazapine (Remeron -) 7.5 mg PO HS [facility] Last Admin: 03/16/19 22:12 Dose: 7.5 mg Nitroglycerin (Nitrostat -) 0.4 mg SL Q5M PRN PRN Reason: FOR CHEST PAIN Ondansetron HCl (Zofran Injection) 4 mg IVPUSH Q8H PRN PRN Reason: NAUSEA Last Admin: 03/16/19 11:42 Dose: 4 mg Pantoprazole Sodium (Protonix -) 40 mg PO DAILY [facility] Last Admin: 03/17/19 11:13 Dose: 40 mg Senna (Senna -) 1 tab PO BID [facility] Last Admin: 03/17/19 11:13 Dose: 1 tab Timolol Maleate (Timoptic 0.5%) 1 drop OU BID [facility] Last Admin: 03/17/19 11:19 Dose: 1 drop Tramadol HCl (Ultram -) 50 mg PO Q6H PRN PRN Reason: PAIN LEVEL 7 - 10 Last Admin: 03/17/19 05:45 Dose: 50 mg Zinc Sulfate (Orazinc -) 220 mg PO DAILY [facility] Last Admin: 03/17/19 11:12 Dose: 220 mg - Objective Vital Signs: Vital Signs Temperature 98.4 F 03/17/19 11:04 Pulse Rate 92 H 03/17/19 06:00 Respiratory Rate 20 03/17/19 11:04 Blood Pressure 112/60 03/17/19 11:04 O2 Sat by Pulse Oximetry (%) 97 03/16/19 09:00 Constitutional: Yes: No Distress, Calm Eyes: Yes: Conjunctiva Clear HENT: Yes: Atraumatic Cardiovascular: Yes: Regular Rate and Rhythm Respiratory: Yes: Regular, CTA Bilaterally Gastrointestinal: Yes: Normal Bowel Sounds, Soft, Other (wound vac) Musculoskeletal: Yes: Muscle Weakness Extremities: Yes: WNL Edema: No Wound/Incision: Yes: Dressing Dry and Intact, Other (wound vac) Neurological: Yes: Alert, Oriented Psychiatric: Yes: Alert, Oriented Labs: CBC, BMP 03/14/19 06:30 03/14/19 06:30 INR, PTT INR 1.34 (0.83-1.09) H 03/04/19 06:00 Microbiology 03/12/19 17:03 Abdomen Gram Stain - Final 03/12/19 17:03 Abdomen Wound Culture - Final Staphylococcus Coagulase Neg Alpha Hemolytic Streptococcus 03/03/19 13:34 Blood - Peripheral Venous Blood Culture - Final NO GROWTH AFTER 5 DAYS INCUBATION 03/03/19 13:34 Blood - Peripheral Venous Blood Culture - Final NO GROWTH AFTER 5 DAYS INCUBATION 03/04/19 13:00 Abdomen Gram Stain - Final 03/04/19 13:00 Abdomen Wound Culture - Final Staphylococcus Coagulase Neg Streptococcus Anginosus Group 03/03/19 16:13 Urine - Urine Clean Catch Urine Culture - Final NO GROWTH OBTAINED Problem List - Problems (1) Abdominal pain Assessment/Plan: -Surgery on board -on admission CT scan shows incisional hernia wth containing slightly dilated small bowel loop -wound vac -pain management -pending bed assignment to [facility] Code(s): R10.9 - UNSPECIFIED ABDOMINAL PAIN Qualifiers: Abdominal location: unspecified location Qualified Code(s): R10.9 - Unspecified abdominal pain (2) Afib Assessment/Plan: -continue Eliquis and Metoprolol -tele monitoring -cardiology on board Code(s): I48.91 - UNSPECIFIED ATRIAL FIBRILLATION Qualifiers: Atrial fibrillation type: chronic Qualified Code(s): I48.2 - Chronic atrial fibrillation (3) Anemia Assessment/Plan: -Monitor Hg daily -current Hg 8.3 -Ferrous Sulfate Code(s): D64.9 - ANEMIA, UNSPECIFIED (4) Obesity (BMI 30-39.9) Code(s): E66.9 - OBESITY, UNSPECIFIED (5) S/P left hemicolectomy Assessment/Plan: -surgery on bard -on admission CT scan shows incisional hernia wth containing slightly dilated small bowel loop -wound vac -pain management Code(s): Z90.49 - ACQUIRED ABSENCE OF OTHER SPECIFIED PARTS OF DIGESTIVE TRACT (6) HTN (hypertension) Assessment/Plan: -continue losartan -low Na diet Code(s): I10 - ESSENTIAL (PRIMARY) HYPERTENSION Qualifiers: Hypertension type: essential hypertension Qualified Code(s): I10 - Essential (primary) hypertension (7) Wound dehiscence, surgical Assessment/Plan: -Surgery on board -on admission CT scan shows incisional hernia wth containing slightly dilated small bowel loop -no leukocystosis, aferbile -wound culture positive -wound vac -pain management -ID on board -PO Augmentin Code(s): T81.31XA - DISRUPTION OF EXTERNAL OPERATION (SURGICAL) WOUND, NEC, INIT Qualifiers: Encounter type: subsequent encounter Qualified Code(s): T81.31XD - Disruption of external operation (surgical) wound, not elsewhere classified, subsequent encounter (8) Chest pain Assessment/Plan: -resolved -troponin neg Code(s): R07.9 - CHEST PAIN, UNSPECIFIED Assessment/Plan see problem list DVT ppx [facility] for discharge
--- NOTE | 2019-03-17 12:51 | PN ---
Progress Note, Physician History of Present Illness: Remains in rate-controlled afib after resumption of Lopressor, wound vac and wound care provided. Still not eating much. - Current Medication List Current Medications: Active Medications Acetaminophen (Tylenol -) 650 mg PO Q6H PRN PRN Reason: PAIN LEVEL 1-5 Last Admin: 03/17/19 00:14 Dose: 650 mg Al Hydroxide/Mg Hydroxide (Mylanta Oral Suspension -) 30 ml PO TID [facility] Last Admin: 03/17/19 05:44 Dose: 30 ml Amino Acids (Prosource No Carb Liquid Pkt) 30 ml PO BID@0800,1730 [facility] Last Admin: 03/17/19 08:56 Dose: 30 ml Amoxicillin/Clavulanate Potassium (Augmentin - 500mg Tablet) 1 tab PO BID@0800, 1730 [facility] Stop: 03/20/19 17:29 Last Admin: 03/17/19 08:57 Dose: 1 tab Apixaban (Eliquis -) 5 mg PO BID [facility] Last Admin: 03/17/19 11:12 Dose: 5 mg Ascorbic Acid (Vitamin C -) 500 mg PO DAILY [facility] Last Admin: 03/17/19 11:13 Dose: 500 mg Brimonidine Tartrate (Alphagan 0.2% -) 1 drop OU BID [facility] Last Admin: 03/17/19 11:18 Dose: 1 drop Docusate Sodium (Colace -) 100 mg PO TID [facility] Last Admin: 03/17/19 05:44 Dose: 100 mg Ferrous Sulfate (Feosol -) 325 mg PO BID [facility] Last Admin: 03/17/19 11:14 Dose: 325 mg Hydroxyzine HCl (Atarax -) 10 mg PO Q6H [facility] Last Admin: 03/17/19 11:13 Dose: 10 mg Latanoprost (Xalatan 0.005% Eye Drops -) 1 drop OU HS [facility] Last Admin: 03/16/19 22:13 Dose: 1 drop Losartan Potassium (Cozaar -) 25 mg PO DAILY [facility] Last Admin: 03/17/19 11:17 Dose: 25 mg Megestrol Acetate (Megace -) 20 mg PO DAILY [facility] Last Admin: 03/17/19 11:13 Dose: 20 mg Methimazole (Tapazole -) 5 mg PO DAILY [facility] Last Admin: 03/17/19 11:15 Dose: 5 mg Metoprolol Tartrate (Lopressor -) 50 mg PO BID [facility] Last Admin: 03/17/19 11:17 Dose: 50 mg Mirtazapine (Remeron -) 7.5 mg PO HS [facility] Last Admin: 03/16/19 22:12 Dose: 7.5 mg Nitroglycerin (Nitrostat -) 0.4 mg SL Q5M PRN PRN Reason: FOR CHEST PAIN Ondansetron HCl (Zofran Injection) 4 mg IVPUSH Q8H PRN PRN Reason: NAUSEA Last Admin: 03/16/19 11:42 Dose: 4 mg Pantoprazole Sodium (Protonix -) 40 mg PO DAILY [facility] Last Admin: 03/17/19 11:13 Dose: 40 mg Senna (Senna -) 1 tab PO BID [facility] Last Admin: 03/17/19 11:13 Dose: 1 tab Timolol Maleate (Timoptic 0.5%) 1 drop OU BID [facility] Last Admin: 03/17/19 11:19 Dose: 1 drop Tramadol HCl (Ultram -) 50 mg PO Q6H PRN PRN Reason: PAIN LEVEL 7 - 10 Last Admin: 03/17/19 05:45 Dose: 50 mg Zinc Sulfate (Orazinc -) 220 mg PO DAILY [facility] Last Admin: 03/17/19 11:12 Dose: 220 mg - Objective Vital Signs: Vital Signs Temperature 98.4 F 03/17/19 11:04 Pulse Rate 92 H 03/17/19 06:00 Respiratory Rate 20 03/17/19 11:04 Blood Pressure 112/60 03/17/19 11:04 O2 Sat by Pulse Oximetry (%) 97 03/16/19 09:00 Constitutional: Yes: No Distress, Calm Neck: Yes: Supple Cardiovascular: Yes: Pulse Irregular Respiratory: Yes: Regular, Diminished Gastrointestinal: Yes: Normal Bowel Sounds, Soft Edema: No Wound/Incision: Yes: Dressing Dry and Intact Labs: CBC, BMP 03/14/19 06:30 03/14/19 06:30 INR, PTT INR 1.34 (0.83-1.09) H 03/04/19 06:00 Problem List - Problems (1) Afib Code(s): I48.91 - UNSPECIFIED ATRIAL FIBRILLATION Qualifiers: Atrial fibrillation type: chronic Qualified Code(s): I48.2 - Chronic atrial fibrillation (2) S/P left hemicolectomy Code(s): Z90.49 - ACQUIRED ABSENCE OF OTHER SPECIFIED PARTS OF DIGESTIVE TRACT (3) Wound dehiscence, surgical Code(s): T81.31XA - DISRUPTION OF EXTERNAL OPERATION (SURGICAL) WOUND, NEC, INIT Qualifiers: Encounter type: subsequent encounter Qualified Code(s): T81.31XD - Disruption of external operation (surgical) wound, not elsewhere classified, subsequent encounter (4) Hyperthyroidism Code(s): E05.90 - THYROTOXICOSIS, UNSP WITHOUT THYROTOXIC CRISIS OR STORM (5) CAD (coronary artery disease) Code(s): I25.10 - ATHSCL HEART DISEASE OF [place] CORONARY ARTERY W/O ANG PCTRS Qualifiers: Coronary Disease-Associated Artery/Lesion type: [place] artery [place] vs. transplanted heart: [place] heart Associated angina: without angina Qualified Code(s): I25.10 - Atherosclerotic heart disease of [place] coronary artery without angina pectoris (6) CVA (cerebral vascular accident) Code(s): I63.9 - CEREBRAL INFARCTION, UNSPECIFIED Qualifiers: CVA mechanism: unspecified Qualified Code(s): I63.9 - Cerebral infarction, unspecified (7) HTN (hypertension) Code(s): I10 - ESSENTIAL (PRIMARY) HYPERTENSION Qualifiers: Hypertension type: essential hypertension Qualified Code(s): I10 - Essential (primary) hypertension Assessment/Plan 02/04/2018 Echo: Normal LV systolic function, mild LVH, mildly dilated ascending thoacic aorta, tr MR, tr TR and trace pericardial effusion DON: Normal LV size and fxn, mild MR, TR, mod AR, tr-mild [place] 1. Post hemicolectomy for colon CA with post-op wound infection and bowel herniation into dehiscence site 2. Persistent AF with RVR on DOAC 3. HTN 4. DM 5. Parkinson's disease 6. Hyperthyroidism PLAN: 1. Complete empiric oral antibiotic course 2. Continue Eliquis 5 bid 3. Continue Lopressor 50 bid and Cozaar 25 qd as hemodynamics tolerated 4. Continue Tapazole 5 tid 5. Surgery input noted. Continue wound vac care and wound care, encourage proper nutritional intake.
--- NOTE | 2019-03-17 16:45 | PN ---
Progress Note, Physician History of Present Illness: Pt seen and examined, events noted, labs/imaging reviewed. She is alert, afebrile, denies having specific complaints as translated by daughter at bedside. States she has been doing well. - Current Medication List Current Medications: Active Medications Acetaminophen (Tylenol -) 650 mg PO Q6H PRN PRN Reason: PAIN LEVEL 1-5 Last Admin: 03/17/19 00:14 Dose: 650 mg Al Hydroxide/Mg Hydroxide (Mylanta Oral Suspension -) 30 ml PO TID [facility] Last Admin: 03/17/19 15:03 Dose: 30 ml Amino Acids (Prosource No Carb Liquid Pkt) 30 ml PO BID@0800,1730 [facility] Last Admin: 03/17/19 08:56 Dose: 30 ml Amoxicillin/Clavulanate Potassium (Augmentin - 500mg Tablet) 1 tab PO BID@0800, 1730 [facility] Stop: 03/20/19 17:29 Last Admin: 03/17/19 08:57 Dose: 1 tab Apixaban (Eliquis -) 5 mg PO BID [facility] Last Admin: 03/17/19 11:12 Dose: 5 mg Ascorbic Acid (Vitamin C -) 500 mg PO DAILY [facility] Last Admin: 03/17/19 11:13 Dose: 500 mg Brimonidine Tartrate (Alphagan 0.2% -) 1 drop OU BID [facility] Last Admin: 03/17/19 11:18 Dose: 1 drop Docusate Sodium (Colace -) 100 mg PO TID [facility] Last Admin: 03/17/19 15:04 Dose: 100 mg Ferrous Sulfate (Feosol -) 325 mg PO BID [facility] Last Admin: 03/17/19 11:14 Dose: 325 mg Hydroxyzine HCl (Atarax -) 10 mg PO Q6H [facility] Last Admin: 03/17/19 11:13 Dose: 10 mg Latanoprost (Xalatan 0.005% Eye Drops -) 1 drop OU HS [facility] Last Admin: 03/16/19 22:13 Dose: 1 drop Losartan Potassium (Cozaar -) 25 mg PO DAILY [facility] Last Admin: 03/17/19 11:17 Dose: 25 mg Megestrol Acetate (Megace -) 20 mg PO DAILY [facility] Last Admin: 03/17/19 11:13 Dose: 20 mg Methimazole (Tapazole -) 5 mg PO DAILY [facility] Last Admin: 03/17/19 11:15 Dose: 5 mg Metoprolol Tartrate (Lopressor -) 50 mg PO BID [facility] Last Admin: 03/17/19 11:17 Dose: 50 mg Mirtazapine (Remeron -) 7.5 mg PO HS [facility] Last Admin: 03/16/19 22:12 Dose: 7.5 mg Nitroglycerin (Nitrostat -) 0.4 mg SL Q5M PRN PRN Reason: FOR CHEST PAIN Ondansetron HCl (Zofran Injection) 4 mg IVPUSH Q8H PRN PRN Reason: NAUSEA Last Admin: 03/16/19 11:42 Dose: 4 mg Pantoprazole Sodium (Protonix -) 40 mg PO DAILY [facility] Last Admin: 03/17/19 11:13 Dose: 40 mg Senna (Senna -) 1 tab PO BID [facility] Last Admin: 03/17/19 11:13 Dose: 1 tab Timolol Maleate (Timoptic 0.5%) 1 drop OU BID [facility] Last Admin: 03/17/19 11:19 Dose: 1 drop Tramadol HCl (Ultram -) 50 mg PO Q6H PRN PRN Reason: PAIN LEVEL 7 - 10 Last Admin: 03/17/19 05:45 Dose: 50 mg Zinc Sulfate (Orazinc -) 220 mg PO DAILY [facility] Last Admin: 03/17/19 11:12 Dose: 220 mg - Objective Vital Signs: Vital Signs Temperature 98.1 F 03/17/19 13:30 Pulse Rate 107 H 03/17/19 13:30 Respiratory Rate 17 03/17/19 13:30 Blood Pressure 90/56 L 03/17/19 13:30 O2 Sat by Pulse Oximetry (%) 97 03/16/19 09:00 Constitutional: Yes: No Distress, Calm Cardiovascular: Yes: Regular Rate and Rhythm Respiratory: Yes: Regular Gastrointestinal: Yes: Normal Bowel Sounds Integumentary: Yes: WNL Wound/Incision: Yes: Other (dressing intact) Labs: CBC, BMP 03/14/19 06:30 03/14/19 06:30 INR, PTT INR 1.34 (0.83-1.09) H 03/04/19 06:00 Microbiology 03/12/19 17:03 Abdomen Gram Stain - Final 03/12/19 17:03 Abdomen Wound Culture - Final Staphylococcus Coagulase Neg Alpha Hemolytic Streptococcus 03/03/19 13:34 Blood - Peripheral Venous Blood Culture - Final NO GROWTH AFTER 5 DAYS INCUBATION 03/03/19 13:34 Blood - Peripheral Venous Blood Culture - Final NO GROWTH AFTER 5 DAYS INCUBATION 03/04/19 13:00 Abdomen Gram Stain - Final 03/04/19 13:00 Abdomen Wound Culture - Final Staphylococcus Coagulase Neg Streptococcus Anginosus Group 03/03/19 16:13 Urine - Urine Clean Catch Urine Culture - Final NO GROWTH OBTAINED Problem List - Problems (1) Abdominal pain Code(s): R10.9 - UNSPECIFIED ABDOMINAL PAIN Qualifiers: Abdominal location: unspecified location Qualified Code(s): R10.9 - Unspecified abdominal pain (2) Obesity (BMI 30-39.9) Code(s): E66.9 - OBESITY, UNSPECIFIED (3) S/P left hemicolectomy Code(s): Z90.49 - ACQUIRED ABSENCE OF OTHER SPECIFIED PARTS OF DIGESTIVE TRACT (4) Colonic mass Code(s): K63.9 - DISEASE OF INTESTINE, UNSPECIFIED (5) Hyperthyroidism Code(s): E05.90 - THYROTOXICOSIS, UNSP WITHOUT THYROTOXIC CRISIS OR STORM (6) New onset atrial fibrillation Code(s): I48.91 - UNSPECIFIED ATRIAL FIBRILLATION (7) Acute on chronic diastolic (congestive) heart failure Code(s): I50.33 - ACUTE ON CHRONIC DIASTOLIC (CONGESTIVE) HEART FAILURE (8) Asthma Code(s): J45.909 - UNSPECIFIED ASTHMA, UNCOMPLICATED Qualifiers: Asthma severity: mild Asthma persistence: intermittent Asthma complication type: unspecified Qualified Code(s): J45.20 - Mild intermittent asthma, uncomplicated (9) CAD (coronary artery disease) Code(s): I25.10 - ATHSCL HEART DISEASE OF [place] CORONARY ARTERY W/O ANG PCTRS Qualifiers: Coronary Disease-Associated Artery/Lesion type: [place] artery [place] vs. transplanted heart: [place] heart Associated angina: without angina Qualified Code(s): I25.10 - Atherosclerotic heart disease of [place] coronary artery without angina pectoris (10) Diabetes mellitus Code(s): E11.9 - TYPE 2 DIABETES MELLITUS WITHOUT COMPLICATIONS Qualifiers: Diabetes mellitus type: type 2 Diabetes mellitus terminal superintendent insulin use: without chcf use Diabetes mellitus complication status: without complication Qualified Code(s): E11.9 - Type 2 diabetes mellitus without complications (11) HTN (hypertension) Code(s): I10 - ESSENTIAL (PRIMARY) HYPERTENSION Qualifiers: Hypertension type: essential hypertension Qualified Code(s): I10 - Essential (primary) hypertension (12) Parkinson disease Code(s): G20 - PARKINSON'S DISEASE Assessment/Plan Post-op Wound Infection Bowel herniation into wound s/p hemicolectomy for Colon CA DM AFIB CAD CHF HTN HLD Hyperthyroidism -- continue Augmentin po -- wound care being done, surgery following -- pt is afebrile, stable, without complaints tolerating antibiotics
[2019-03-17] MEDS: LATANOPROST 0.005% OPHTH SOLN 2.5ML BOTTLE OU SCH (21:22)
[2019-03-17] MEDS: MIRTAZAPINE 15 MG TABLET (FP) PO SCH (21:23)
[2019-03-18] MEDS: ACETAMINOPHEN 325 MG TABLET (FP) PO PRN ×2 (00:06→13:59)
[2019-03-18] MEDS: hydrOXYzine HCL 10 MG TABLET PO SCH ×5 (00:06→17:51)
[2019-03-18] MEDS: DOCUSATE SODIUM 100 MG CAPSULE (FP) PO SCH ×3 (05:37→22:55)
[2019-03-18] MEDS: MAG HYDROX/AL HYDROX/SIMETH 30 ML UNIT-DOSE CUP PO SCH ×3 (06:05→22:55)
[2019-03-18] MEDS ORDERED: PT OWN MED DRAWER 7, Y5N ONE ×4 (08:37→17:47)
[2019-03-18 08:40] LABS: HEMATOCRIT 30.1 % (32.4-45.2); HEMOGLOBIN 9.5 GM/dL (10.7-15.3); MCH 24.6 pg (25.7-33.7); MCHC 31.7 g/dl (32.0-36.0); MEAN CELL VOLUME 77.6 fl (80-96); MEAN PLT VOLUME 7.6 fl (7.5-11.1); PLATELET COUNT 395 K/MM3 (134-434); RBC 3.88 M/mm3 (3.60-5.2); RDW 33.8 % (11.6-15.6); WHITE BLOOD COUNT 6.6 K/mm3 (4.0-10.0)
[2019-03-18 09:06] LABS: ALBUMIN 2.1 g/dl (3.4-5.0); ALK PHOS 92 U/L (45-117); ANION GAP 7 MMOL/L (8-16); BILIRUBIN,TOTAL 0.4 mg/dL (0.2-1); BLOOD UREA NITROGEN 13 mg/dL (7-18); CALCIUM 8.8 mg/dL (8.5-10.1); CHLORIDE 108 mmol/L (98-107); CO2 26 mmol/L (21-32); CREATININE 0.8 mg/dL (0.55-1.3); GLUCOSE,RANDOM 88 mg/dL (74-106); POTASSIUM 4.4 mmol/L (3.5-5.1); SGOT/AST 15 U/L (15-37); SGPT/ALT 9 U/L (13-61); SODIUM 141 mmol/L (136-145); TOT PROT 5.8 g/dl (6.4-8.2)
[2019-03-18] MEDS: traMADol HCL 50 MG TABLET PO PRN ×2 (09:40→17:56)
[2019-03-18] MEDS: METOPROLOL TARTRATE 50 MG TABLET (FP) PO SCH ×2 (09:50→22:28)
[2019-03-18] MEDS: APIXABAN 5 MG TABLET PO SCH ×2 (09:50→22:28)
[2019-03-18] MEDS: LOSARTAN POTASSIUM 25 MG TABLET PO SCH (11:31)
[2019-03-18] MEDS: ZINC SULFATE 220 MG CAPSULE (FP) PO SCH (11:31)
[2019-03-18] MEDS: AMOX TR/POT CLAV 500MG/125MG TABLETS (FP) PO SCH ×2 (11:31→17:52)
[2019-03-18] MEDS: SENNOSIDES 8.6MG TABLET (FP) PO SCH ×2 (11:31→22:55)
[2019-03-18] MEDS: FERROUS SO4 325 MG TABLET (FP) PO SCH ×2 (11:32→22:28)
[2019-03-18] MEDS: PANTOPRAZOLE 40 MG TABLET (FP) PO SCH (11:32)
[2019-03-18] MEDS: AMINO ACIDS/PROTEIN HYDROLYS 30 ML LIQUID.PKT PO SCH ×2 (11:32→17:52)
[2019-03-18] MEDS: MEGESTROL ACETATE 20 MG TABLET PO SCH (11:32)
[2019-03-18] MEDS: METHIMAZOLE 5 MG TABLET (FP) PO SCH (11:32)
[2019-03-18] MEDS: TIMOLOL 0.5% OPHTHALMIC SOL 5 ML BOTTLE OU SCH ×2 (11:33→22:55)
[2019-03-18] MEDS: BRIMONIDINE TARTRATE 0.2% OPHTHALMIC 5 ML BOTTLE OU SCH ×2 (11:33→22:55)
[2019-03-18] MEDS: ASCORBIC ACID 500 MG TABLET (FP) PO SCH (11:33)
[2019-03-18] MEDS ORDERED: ONDANSETRON *ODT* 4 MG TABLET SL PRN (12:18)
--- NOTE | 2019-03-18 13:02 | PN ---
Progress Note, Physician History of Present Illness: Remains in rate-controlled afib after resumption of Lopressor, wound vac and wound care provided. Still with feculent wound drainage. - Current Medication List Current Medications: Active Medications Acetaminophen (Tylenol -) 650 mg PO Q6H PRN PRN Reason: PAIN LEVEL 1-5 Last Admin: 03/18/19 00:06 Dose: 650 mg Al Hydroxide/Mg Hydroxide (Mylanta Oral Suspension -) 30 ml PO TID [facility] Last Admin: 03/18/19 06:05 Dose: Not Given Amino Acids (Prosource No Carb Liquid Pkt) 30 ml PO BID@0800,1730 [facility] Last Admin: 03/18/19 11:32 Dose: 30 ml Amoxicillin/Clavulanate Potassium (Augmentin - 500mg Tablet) 1 tab PO BID@0800, 1730 [facility] Stop: 03/20/19 17:29 Last Admin: 03/18/19 11:31 Dose: 1 tab Apixaban (Eliquis -) 5 mg PO BID [facility] Last Admin: 03/18/19 09:50 Dose: 5 mg Ascorbic Acid (Vitamin C -) 500 mg PO DAILY [facility] Last Admin: 03/18/19 11:33 Dose: 500 mg Brimonidine Tartrate (Alphagan 0.2% -) 1 drop OU BID [facility] Last Admin: 03/18/19 11:33 Dose: 1 drop Docusate Sodium (Colace -) 100 mg PO TID [facility] Last Admin: 03/18/19 05:37 Dose: 100 mg Ferrous Sulfate (Feosol -) 325 mg PO BID [facility] Last Admin: 03/18/19 11:32 Dose: 325 mg Hydroxyzine HCl (Atarax -) 10 mg PO Q6HPO [facility] Latanoprost (Xalatan 0.005% Eye Drops -) 1 drop OU HS [facility] Last Admin: 03/17/19 21:22 Dose: 1 drop Losartan Potassium (Cozaar -) 25 mg PO DAILY [facility] Last Admin: 03/18/19 11:31 Dose: 25 mg Megestrol Acetate (Megace -) 20 mg PO DAILY [facility] Last Admin: 03/18/19 11:32 Dose: 20 mg Methimazole (Tapazole -) 5 mg PO DAILY [facility] Last Admin: 03/18/19 11:32 Dose: 5 mg Metoprolol Tartrate (Lopressor -) 50 mg PO BID [facility] Last Admin: 03/18/19 09:50 Dose: 50 mg Mirtazapine (Remeron -) 7.5 mg PO HS [facility] Last Admin: 03/17/19 21:23 Dose: 7.5 mg Nitroglycerin (Nitrostat -) 0.4 mg SL Q5M PRN PRN Reason: FOR CHEST PAIN Ondansetron HCl (Zofran Odt -) 4 mg SL Q6H PRN PRN Reason: NAUSEA AND/OR VOMITING Last Admin: 03/18/19 12:51 Dose: 4 mg Pantoprazole Sodium (Protonix -) 40 mg PO DAILY [facility] Last Admin: 03/18/19 11:32 Dose: 40 mg Senna (Senna -) 1 tab PO BID [facility] Last Admin: 03/18/19 11:31 Dose: 1 tab Timolol Maleate (Timoptic 0.5%) 1 drop OU BID [facility] Last Admin: 03/18/19 11:33 Dose: 1 drop Tramadol HCl (Ultram -) 50 mg PO Q6H PRN PRN Reason: PAIN LEVEL 7 - 10 Last Admin: 03/18/19 09:40 Dose: 50 mg Zinc Sulfate (Orazinc -) 220 mg PO DAILY [facility] Last Admin: 03/18/19 11:31 Dose: 220 mg - Objective Vital Signs: Vital Signs Temperature 97.8 F 03/18/19 05:00 Pulse Rate 97 H 03/18/19 12:30 Respiratory Rate 20 03/18/19 12:30 Blood Pressure 115/67 03/18/19 12:30 O2 Sat by Pulse Oximetry (%) 97 03/17/19 22:06 Constitutional: Yes: No Distress, Calm Neck: Yes: Supple Cardiovascular: Yes: Pulse Irregular Respiratory: Yes: Regular, Diminished Gastrointestinal: Yes: Normal Bowel Sounds, Soft Edema: No Wound/Incision: Yes: Dressing Dry and Intact Labs: CBC, BMP 03/18/19 07:00 03/18/19 07:00 INR, PTT INR 1.34 (0.83-1.09) H 03/04/19 06:00 Problem List - Problems (1) Afib Code(s): I48.91 - UNSPECIFIED ATRIAL FIBRILLATION Qualifiers: Atrial fibrillation type: chronic Qualified Code(s): I48.2 - Chronic atrial fibrillation (2) S/P left hemicolectomy Code(s): Z90.49 - ACQUIRED ABSENCE OF OTHER SPECIFIED PARTS OF DIGESTIVE TRACT (3) Wound dehiscence, surgical Code(s): T81.31XA - DISRUPTION OF EXTERNAL OPERATION (SURGICAL) WOUND, NEC, INIT Qualifiers: Encounter type: subsequent encounter Qualified Code(s): T81.31XD - Disruption of external operation (surgical) wound, not elsewhere classified, subsequent encounter (4) Hyperthyroidism Code(s): E05.90 - THYROTOXICOSIS, UNSP WITHOUT THYROTOXIC CRISIS OR STORM (5) CAD (coronary artery disease) Code(s): I25.10 - ATHSCL HEART DISEASE OF [place] CORONARY ARTERY W/O ANG PCTRS Qualifiers: Coronary Disease-Associated Artery/Lesion type: [place] artery [place] vs. transplanted heart: [place] heart Associated angina: without angina Qualified Code(s): I25.10 - Atherosclerotic heart disease of [place] coronary artery without angina pectoris (6) CVA (cerebral vascular accident) Code(s): I63.9 - CEREBRAL INFARCTION, UNSPECIFIED Qualifiers: CVA mechanism: unspecified Qualified Code(s): I63.9 - Cerebral infarction, unspecified (7) HTN (hypertension) Code(s): I10 - ESSENTIAL (PRIMARY) HYPERTENSION Qualifiers: Hypertension type: essential hypertension Qualified Code(s): I10 - Essential (primary) hypertension Assessment/Plan 02/04/2018 Echo: Normal LV systolic function, mild LVH, mildly dilated ascending thoacic aorta, tr MR, tr TR and trace pericardial effusion DON: Normal LV size and fxn, mild MR, TR, mod AR, tr-mild [place] 1. Post hemicolectomy for colon CA with post-op wound infection and bowel herniation into dehiscence site 2. Persistent AF with RVR on DOAC 3. HTN 4. DM 5. Parkinson's disease 6. Hyperthyroidism PLAN: 1. Complete empiric oral antibiotic course 2. Continue Eliquis 5 bid 3. Continue Lopressor 50 bid and Cozaar 25 qd as hemodynamics tolerated 4. Continue Tapazole 5 tid 5. Surgery input noted. Continue wound vac care and wound care, encourage proper nutritional intake.
--- NOTE | 2019-03-18 13:30 | PN ---
Progress Note, Physician Chief Complaint: Abdominal Pain S/P Hemicolectomy History of Present Illness: Previous notes and events reviewed awake and alert NAD denies complaints of chest pain, SOB wound vac connected and draining patient complain of epigastric pain and nausea with vomiting, poor PO intake today - Current Medication List Current Medications: Active Medications Acetaminophen (Tylenol -) 650 mg PO Q6H PRN PRN Reason: PAIN LEVEL 1-5 Last Admin: 03/18/19 00:06 Dose: 650 mg Al Hydroxide/Mg Hydroxide (Mylanta Oral Suspension -) 30 ml PO TID [facility] Last Admin: 03/18/19 06:05 Dose: Not Given Amino Acids (Prosource No Carb Liquid Pkt) 30 ml PO BID@0800,1730 [facility] Last Admin: 03/18/19 11:32 Dose: 30 ml Amoxicillin/Clavulanate Potassium (Augmentin - 500mg Tablet) 1 tab PO BID@0800, 1730 [facility] Stop: 03/20/19 17:29 Last Admin: 03/18/19 11:31 Dose: 1 tab Apixaban (Eliquis -) 5 mg PO BID [facility] Last Admin: 03/18/19 09:50 Dose: 5 mg Ascorbic Acid (Vitamin C -) 500 mg PO DAILY [facility] Last Admin: 03/18/19 11:33 Dose: 500 mg Brimonidine Tartrate (Alphagan 0.2% -) 1 drop OU BID [facility] Last Admin: 03/18/19 11:33 Dose: 1 drop Docusate Sodium (Colace -) 100 mg PO TID [facility] Last Admin: 03/18/19 05:37 Dose: 100 mg Ferrous Sulfate (Feosol -) 325 mg PO BID [facility] Last Admin: 03/18/19 11:32 Dose: 325 mg Hydroxyzine HCl (Atarax -) 10 mg PO Q6HPO [facility] Latanoprost (Xalatan 0.005% Eye Drops -) 1 drop OU HS [facility] Last Admin: 03/17/19 21:22 Dose: 1 drop Losartan Potassium (Cozaar -) 25 mg PO DAILY [facility] Last Admin: 03/18/19 11:31 Dose: 25 mg Megestrol Acetate (Megace -) 20 mg PO DAILY [facility] Last Admin: 03/18/19 11:32 Dose: 20 mg Methimazole (Tapazole -) 5 mg PO DAILY [facility] Last Admin: 03/18/19 11:32 Dose: 5 mg Metoprolol Tartrate (Lopressor -) 50 mg PO BID [facility] Last Admin: 03/18/19 09:50 Dose: 50 mg Mirtazapine (Remeron -) 7.5 mg PO HS [facility] Last Admin: 03/17/19 21:23 Dose: 7.5 mg Nitroglycerin (Nitrostat -) 0.4 mg SL Q5M PRN PRN Reason: FOR CHEST PAIN Ondansetron HCl (Zofran Odt -) 4 mg SL Q6H PRN PRN Reason: NAUSEA AND/OR VOMITING Last Admin: 03/18/19 12:51 Dose: 4 mg Pantoprazole Sodium (Protonix -) 40 mg PO DAILY [facility] Last Admin: 03/18/19 11:32 Dose: 40 mg Senna (Senna -) 1 tab PO BID [facility] Last Admin: 03/18/19 11:31 Dose: 1 tab Timolol Maleate (Timoptic 0.5%) 1 drop OU BID [facility] Last Admin: 03/18/19 11:33 Dose: 1 drop Tramadol HCl (Ultram -) 50 mg PO Q6H PRN PRN Reason: PAIN LEVEL 7 - 10 Last Admin: 03/18/19 09:40 Dose: 50 mg Zinc Sulfate (Orazinc -) 220 mg PO DAILY [facility] Last Admin: 03/18/19 11:31 Dose: 220 mg - Objective Vital Signs: Vital Signs Temperature 97.8 F 03/18/19 05:00 Pulse Rate 97 H 03/18/19 12:30 Respiratory Rate 20 03/18/19 12:30 Blood Pressure 115/67 03/18/19 12:30 O2 Sat by Pulse Oximetry (%) 97 03/17/19 22:06 Constitutional: Yes: No Distress, Calm Eyes: Yes: Conjunctiva Clear HENT: Yes: Atraumatic Cardiovascular: Yes: Pulse Irregular Respiratory: Yes: Regular, CTA Bilaterally Gastrointestinal: Yes: Normal Bowel Sounds, Soft Musculoskeletal: Yes: Muscle Weakness Extremities: Yes: WNL Edema: No Wound/Incision: Yes: Dressing Dry and Intact, Other (wound vac) Neurological: Yes: Alert, Oriented Psychiatric: Yes: Alert, Oriented Labs: CBC, BMP 03/18/19 07:00 03/18/19 07:00 INR, PTT INR 1.34 (0.83-1.09) H 03/04/19 06:00 Microbiology 03/12/19 17:03 Abdomen Gram Stain - Final 03/12/19 17:03 Abdomen Wound Culture - Final Staphylococcus Coagulase Neg Alpha Hemolytic Streptococcus 03/03/19 13:34 Blood - Peripheral Venous Blood Culture - Final NO GROWTH AFTER 5 DAYS INCUBATION 03/03/19 13:34 Blood - Peripheral Venous Blood Culture - Final NO GROWTH AFTER 5 DAYS INCUBATION 03/04/19 13:00 Abdomen Gram Stain - Final 03/04/19 13:00 Abdomen Wound Culture - Final Staphylococcus Coagulase Neg Streptococcus Anginosus Group 03/03/19 16:13 Urine - Urine Clean Catch Urine Culture - Final NO GROWTH OBTAINED Problem List - Problems (1) Abdominal pain Assessment/Plan: -Surgery on board -on admission CT scan shows incisional hernia wth containing slightly dilated small bowel loop -wound vac -pain management -pending bed assignment to [facility] Code(s): R10.9 - UNSPECIFIED ABDOMINAL PAIN Qualifiers: Abdominal location: unspecified location Qualified Code(s): R10.9 - Unspecified abdominal pain (2) Afib Assessment/Plan: -continue Eliquis and Metoprolol -tele monitoring -cardiology on board Code(s): I48.91 - UNSPECIFIED ATRIAL FIBRILLATION Qualifiers: Atrial fibrillation type: chronic Qualified Code(s): I48.2 - Chronic atrial fibrillation (3) Anemia Assessment/Plan: -Monitor Hg daily -current Hg 9.5 -Ferrous Sulfate Code(s): D64.9 - ANEMIA, UNSPECIFIED (4) Obesity (BMI 30-39.9) Code(s): E66.9 - OBESITY, UNSPECIFIED (5) S/P left hemicolectomy Assessment/Plan: -surgery on board -on admission CT scan shows incisional hernia wth containing slightly dilated small bowel loop -wound vac -pain management Code(s): Z90.49 - ACQUIRED ABSENCE OF OTHER SPECIFIED PARTS OF DIGESTIVE TRACT (6) HTN (hypertension) Assessment/Plan: -continue losartan -low Na diet Code(s): I10 - ESSENTIAL (PRIMARY) HYPERTENSION Qualifiers: Hypertension type: essential hypertension Qualified Code(s): I10 - Essential (primary) hypertension (7) Wound dehiscence, surgical Assessment/Plan: -Surgery on board -on admission CT scan shows incisional hernia wth containing slightly dilated small bowel loop -no leukocystosis, aferbile -wound culture positive -wound vac -pain management -ID on board -PO Augmentin -dressing changes daily and as needed--purulent drainage noted with foul smell Code(s): T81.31XA - DISRUPTION OF EXTERNAL OPERATION (SURGICAL) WOUND, NEC, INIT Qualifiers: Encounter type: subsequent encounter Qualified Code(s): T81.31XD - Disruption of external operation (surgical) wound, not elsewhere classified, subsequent encounter (8) Chest pain Assessment/Plan: -resolved -troponin neg Code(s): R07.9 - CHEST PAIN, UNSPECIFIED (9) Nausea & vomiting Assessment/Plan: -zofran SL ordered wiwth good effect -Mylanta PRN Code(s): R11.2 - NAUSEA WITH VOMITING, UNSPECIFIED
--- NOTE | 2019-03-18 16:46 | PN ---
Progress Note, Physician History of Present Illness: Pt is alert, afebrile. Had episode of abdominal pain today and n/v x 2 but currently feels well and has no complaints. - Current Medication List Current Medications: Active Medications Acetaminophen (Tylenol -) 650 mg PO Q6H PRN PRN Reason: PAIN LEVEL 1-5 Last Admin: 03/18/19 13:59 Dose: 650 mg Al Hydroxide/Mg Hydroxide (Mylanta Oral Suspension -) 30 ml PO TID [facility] Last Admin: 03/18/19 14:00 Dose: Not Given Amino Acids (Prosource No Carb Liquid Pkt) 30 ml PO BID@0800,1730 [facility] Last Admin: 03/18/19 11:32 Dose: 30 ml Amoxicillin/Clavulanate Potassium (Augmentin - 500mg Tablet) 1 tab PO BID@0800, 1730 [facility] Stop: 03/20/19 17:29 Last Admin: 03/18/19 11:31 Dose: 1 tab Apixaban (Eliquis -) 5 mg PO BID [facility] Last Admin: 03/18/19 09:50 Dose: 5 mg Ascorbic Acid (Vitamin C -) 500 mg PO DAILY [facility] Last Admin: 03/18/19 11:33 Dose: 500 mg Brimonidine Tartrate (Alphagan 0.2% -) 1 drop OU BID [facility] Last Admin: 03/18/19 11:33 Dose: 1 drop Docusate Sodium (Colace -) 100 mg PO TID [facility] Last Admin: 03/18/19 13:56 Dose: Not Given Ferrous Sulfate (Feosol -) 325 mg PO BID [facility] Last Admin: 03/18/19 11:32 Dose: 325 mg Hydroxyzine HCl (Atarax -) 10 mg PO Q6HPO [facility] Last Admin: 03/18/19 13:55 Dose: Not Given Latanoprost (Xalatan 0.005% Eye Drops -) 1 drop OU HS [facility] Last Admin: 03/17/19 21:22 Dose: 1 drop Losartan Potassium (Cozaar -) 25 mg PO DAILY [facility] Last Admin: 03/18/19 11:31 Dose: 25 mg Megestrol Acetate (Megace -) 20 mg PO DAILY [facility] Last Admin: 03/18/19 11:32 Dose: 20 mg Methimazole (Tapazole -) 5 mg PO DAILY [facility] Last Admin: 03/18/19 11:32 Dose: 5 mg Metoprolol Tartrate (Lopressor -) 50 mg PO BID [facility] Last Admin: 03/18/19 09:50 Dose: 50 mg Mirtazapine (Remeron -) 7.5 mg PO HS [facility] Last Admin: 03/17/19 21:23 Dose: 7.5 mg Nitroglycerin (Nitrostat -) 0.4 mg SL Q5M PRN PRN Reason: FOR CHEST PAIN Ondansetron HCl (Zofran Odt -) 4 mg SL Q6H PRN PRN Reason: NAUSEA AND/OR VOMITING Last Admin: 03/18/19 12:51 Dose: 4 mg Pantoprazole Sodium (Protonix -) 40 mg PO DAILY [facility] Last Admin: 03/18/19 11:32 Dose: 40 mg Senna (Senna -) 1 tab PO BID [facility] Last Admin: 03/18/19 11:31 Dose: 1 tab Timolol Maleate (Timoptic 0.5%) 1 drop OU BID [facility] Last Admin: 03/18/19 11:33 Dose: 1 drop Tramadol HCl (Ultram -) 50 mg PO Q6H PRN PRN Reason: PAIN LEVEL 7 - 10 Last Admin: 03/18/19 09:40 Dose: 50 mg Zinc Sulfate (Orazinc -) 220 mg PO DAILY [facility] Last Admin: 03/18/19 11:31 Dose: 220 mg - Objective Vital Signs: Vital Signs Temperature 98.4 F 03/18/19 13:43 Pulse Rate 101 H 03/18/19 13:43 Respiratory Rate 18 03/18/19 13:43 Blood Pressure 111/63 03/18/19 13:43 O2 Sat by Pulse Oximetry (%) 97 03/17/19 22:06 Constitutional: Yes: No Distress, Calm Cardiovascular: Yes: Regular Rate and Rhythm, Pulse Irregular Respiratory: Yes: Regular Gastrointestinal: Yes: Normal Bowel Sounds, Soft Integumentary: Yes: WNL Wound/Incision: Yes: Other (Abd wound vac with drainage) Neurological: Yes: Alert Labs: CBC, BMP 03/18/19 07:00 03/18/19 07:00 INR, PTT INR 1.34 (0.83-1.09) H 03/04/19 06:00 Microbiology 03/12/19 17:03 Abdomen Gram Stain - Final 03/12/19 17:03 Abdomen Wound Culture - Final Staphylococcus Coagulase Neg Alpha Hemolytic Streptococcus 03/03/19 13:34 Blood - Peripheral Venous Blood Culture - Final NO GROWTH AFTER 5 DAYS INCUBATION 03/03/19 13:34 Blood - Peripheral Venous Blood Culture - Final NO GROWTH AFTER 5 DAYS INCUBATION 03/04/19 13:00 Abdomen Gram Stain - Final 03/04/19 13:00 Abdomen Wound Culture - Final Staphylococcus Coagulase Neg Streptococcus Anginosus Group 03/03/19 16:13 Urine - Urine Clean Catch Urine Culture - Final NO GROWTH OBTAINED Problem List - Problems (1) Abdominal pain Code(s): R10.9 - UNSPECIFIED ABDOMINAL PAIN Qualifiers: Abdominal location: unspecified location Qualified Code(s): R10.9 - Unspecified abdominal pain (2) Obesity (BMI 30-39.9) Code(s): E66.9 - OBESITY, UNSPECIFIED (3) S/P left hemicolectomy Code(s): Z90.49 - ACQUIRED ABSENCE OF OTHER SPECIFIED PARTS OF DIGESTIVE TRACT (4) Colonic mass Code(s): K63.9 - DISEASE OF INTESTINE, UNSPECIFIED (5) Hyperthyroidism Code(s): E05.90 - THYROTOXICOSIS, UNSP WITHOUT THYROTOXIC CRISIS OR STORM (6) New onset atrial fibrillation Code(s): I48.91 - UNSPECIFIED ATRIAL FIBRILLATION (7) Acute on chronic diastolic (congestive) heart failure Code(s): I50.33 - ACUTE ON CHRONIC DIASTOLIC (CONGESTIVE) HEART FAILURE (8) Asthma Code(s): J45.909 - UNSPECIFIED ASTHMA, UNCOMPLICATED Qualifiers: Asthma severity: mild Asthma persistence: intermittent Asthma complication type: unspecified Qualified Code(s): J45.20 - Mild intermittent asthma, uncomplicated (9) CAD (coronary artery disease) Code(s): I25.10 - ATHSCL HEART DISEASE OF [place] CORONARY ARTERY W/O ANG PCTRS Qualifiers: Coronary Disease-Associated Artery/Lesion type: [place] artery [place] vs. transplanted heart: [place] heart Associated angina: without angina Qualified Code(s): I25.10 - Atherosclerotic heart disease of [place] coronary artery without angina pectoris (10) Diabetes mellitus Code(s): E11.9 - TYPE 2 DIABETES MELLITUS WITHOUT COMPLICATIONS Qualifiers: Diabetes mellitus type: type 2 Diabetes mellitus halfway insulin use: without halfway use Diabetes mellitus complication status: without complication Qualified Code(s): E11.9 - Type 2 diabetes mellitus without complications (11) HTN (hypertension) Code(s): I10 - ESSENTIAL (PRIMARY) HYPERTENSION Qualifiers: Hypertension type: essential hypertension Qualified Code(s): I10 - Essential (primary) hypertension (12) Parkinson disease Code(s): G20 - PARKINSON'S DISEASE Assessment/Plan Post-op Wound Infection Bowel herniation into wound s/p hemicolectomy for Colon CA AFIB CAD CHF HTN HLD Hyperthyroidism -- continue Augmentin po for now but if has recurrence of vomiting will switch to IV antibiotics -- wound vac in place surgery following -- pt is afebrile, stable, without complaints
[2019-03-18] MEDS: MIRTAZAPINE 15 MG TABLET (FP) PO SCH (22:28)
[2019-03-18] MEDS: LATANOPROST 0.005% OPHTH SOLN 2.5ML BOTTLE OU SCH (22:56)
[2019-03-19] MEDS: hydrOXYzine HCL 10 MG TABLET PO SCH ×4 (02:10→17:52)
[2019-03-19] MEDS: DOCUSATE SODIUM 100 MG CAPSULE (FP) PO SCH ×3 (05:51→21:13)
[2019-03-19] MEDS: MAG HYDROX/AL HYDROX/SIMETH 30 ML UNIT-DOSE CUP PO SCH ×3 (05:51→21:15)
[2019-03-19 07:23] LABS: HEMATOCRIT 28.4 % (32.4-45.2); MCH 24.6 pg (25.7-33.7); MCHC 31.7 g/dl (32.0-36.0); MEAN CELL VOLUME 77.5 fl (80-96); MEAN PLT VOLUME 7.6 fl (7.5-11.1); PLATELET COUNT 355 K/MM3 (134-434); RBC 3.67 M/mm3 (3.60-5.2); RDW 33.7 % (11.6-15.6); WHITE BLOOD COUNT 5.7 K/mm3 (4.0-10.0)
[2019-03-19 07:44] LABS: ALBUMIN 1.9 g/dl (3.4-5.0); ALK PHOS 85 U/L (45-117); ANION GAP 7 MMOL/L (8-16); BILIRUBIN,TOTAL 0.3 mg/dL (0.2-1); BLOOD UREA NITROGEN 10 mg/dL (7-18); CALCIUM 8.3 mg/dL (8.5-10.1); CHLORIDE 108 mmol/L (98-107); CO2 23 mmol/L (21-32); CREATININE 0.7 mg/dL (0.55-1.3); GLUCOSE,RANDOM 128 mg/dL (74-106); POTASSIUM 4.7 mmol/L (3.5-5.1); SGOT/AST 21 U/L (15-37); SGPT/ALT 10 U/L (13-61); SODIUM 139 mmol/L (136-145); TOT PROT 5.8 g/dl (6.4-8.2)
[2019-03-19] MEDS ORDERED: PT OWN MED DRAWER 7, Y5N ONE ×3 (08:58→21:04)
[2019-03-19] MEDS: FERROUS SO4 325 MG TABLET (FP) PO SCH ×2 (09:39→21:13)
[2019-03-19] MEDS: LOSARTAN POTASSIUM 25 MG TABLET PO SCH (09:39)
[2019-03-19] MEDS: SENNOSIDES 8.6MG TABLET (FP) PO SCH ×3 (09:39→21:13)
[2019-03-19] MEDS: ZINC SULFATE 220 MG CAPSULE (FP) PO SCH (09:39)
[2019-03-19] MEDS: PANTOPRAZOLE 40 MG TABLET (FP) PO SCH (09:40)
[2019-03-19] MEDS: ASCORBIC ACID 500 MG TABLET (FP) PO SCH (09:40)
[2019-03-19] MEDS: APIXABAN 5 MG TABLET PO SCH ×2 (09:40→22:12)
[2019-03-19] MEDS: METOPROLOL TARTRATE 50 MG TABLET (FP) PO SCH (09:40)
[2019-03-19] MEDS: MEGESTROL ACETATE 20 MG TABLET PO SCH (09:40)
[2019-03-19] MEDS: AMOX TR/POT CLAV 500MG/125MG TABLETS (FP) PO SCH ×2 (09:41→17:53)
[2019-03-19] MEDS: AMINO ACIDS/PROTEIN HYDROLYS 30 ML LIQUID.PKT PO SCH ×2 (09:41→17:52)
[2019-03-19] MEDS: BRIMONIDINE TARTRATE 0.2% OPHTHALMIC 5 ML BOTTLE OU SCH ×2 (09:43→22:14)
[2019-03-19] MEDS: METHIMAZOLE 5 MG TABLET (FP) PO SCH (09:48)
[2019-03-19] MEDS: TIMOLOL 0.5% OPHTHALMIC SOL 5 ML BOTTLE OU SCH ×2 (09:48→21:19)
--- NOTE | 2019-03-19 11:03 | PN ---
Progress Note (short form) - Note Progress Note: Attending Surgeon POD #27 No c/o ?; eating and having bowel movements VSS AF abdo-soft; less to minimal drainage from proximal open wound; distal wound w/ VAC in place. WBC normal IMP: stable PLAN: Continue present tx.; d/c planning. John Alvarado MD FACS
--- NOTE | 2019-03-19 11:51 | PN ---
Progress Note, Physician - Current Medication List Current Medications: Active Medications Acetaminophen (Tylenol -) 650 mg PO Q6H PRN PRN Reason: PAIN LEVEL 1-5 Last Admin: 03/18/19 13:59 Dose: 650 mg Al Hydroxide/Mg Hydroxide (Mylanta Oral Suspension -) 30 ml PO TID [facility] Last Admin: 03/19/19 05:51 Dose: Not Given Amino Acids (Prosource No Carb Liquid Pkt) 30 ml PO BID@0800,1730 [facility] Last Admin: 03/19/19 09:41 Dose: 30 ml Amoxicillin/Clavulanate Potassium (Augmentin - 500mg Tablet) 1 tab PO BID@0800, 1730 [facility] Stop: 03/20/19 17:29 Last Admin: 03/19/19 09:41 Dose: 1 tab Apixaban (Eliquis -) 5 mg PO BID [facility] Last Admin: 03/19/19 09:40 Dose: 5 mg Ascorbic Acid (Vitamin C -) 500 mg PO DAILY [facility] Last Admin: 03/19/19 09:40 Dose: 500 mg Brimonidine Tartrate (Alphagan 0.2% -) 1 drop OU BID [facility] Last Admin: 03/19/19 09:43 Dose: 1 drop Docusate Sodium (Colace -) 100 mg PO TID [facility] Last Admin: 03/19/19 05:51 Dose: Not Given Ferrous Sulfate (Feosol -) 325 mg PO BID [facility] Last Admin: 03/19/19 09:39 Dose: 325 mg Hydroxyzine HCl (Atarax -) 10 mg PO Q6HPO [facility] Last Admin: 03/19/19 05:50 Dose: Not Given Latanoprost (Xalatan 0.005% Eye Drops -) 1 drop OU HS [facility] Last Admin: 03/18/19 22:56 Dose: 1 drop Losartan Potassium (Cozaar -) 25 mg PO DAILY [facility] Last Admin: 03/19/19 09:39 Dose: 25 mg Megestrol Acetate (Megace -) 20 mg PO DAILY [facility] Last Admin: 03/19/19 09:40 Dose: 20 mg Methimazole (Tapazole -) 5 mg PO DAILY [facility] Last Admin: 03/19/19 09:48 Dose: 5 mg Metoprolol Tartrate (Lopressor -) 50 mg PO BID [facility] Last Admin: 04/29/19 09:40 Dose: 50 mg Mirtazapine (Remeron -) 7.5 mg PO HS [facility] Last Admin: 03/18/19 22:28 Dose: 7.5 mg Nitroglycerin (Nitrostat -) 0.4 mg SL Q5M PRN PRN Reason: FOR CHEST PAIN Ondansetron HCl (Zofran Odt -) 4 mg SL Q6H PRN PRN Reason: NAUSEA AND/OR VOMITING Last Admin: 03/18/19 12:51 Dose: 4 mg Pantoprazole Sodium (Protonix -) 40 mg PO DAILY [facility] Last Admin: 03/19/19 09:40 Dose: 40 mg Senna (Senna -) 1 tab PO BID [facility] Last Admin: 03/19/19 09:39 Dose: 1 tab Timolol Maleate (Timoptic 0.5%) 1 drop OU BID [facility] Last Admin: 03/19/19 09:48 Dose: 1 drop Zinc Sulfate (Orazinc -) 220 mg PO DAILY [facility] Last Admin: 03/19/19 09:39 Dose: 220 mg - Objective Vital Signs: Vital Signs Temperature 98.4 F 03/19/19 06:00 Pulse Rate 100 H 03/19/19 10:00 Respiratory Rate 18 03/19/19 10:00 Blood Pressure 98/58 L 03/19/19 10:00 O2 Sat by Pulse Oximetry (%) 96 03/18/19 10:05 Labs: CBC, BMP 03/19/19 06:30 03/19/19 06:30 INR, PTT INR 1.34 (0.83-1.09) H 03/04/19 06:00
[2019-03-19 12:07] LABS: ANISOCYTOSIS 2+; MACROCYTOSIS 0; PLATELET ESTIMATE NORMAL
--- NOTE | 2019-03-19 12:56 | PN ---
Progress Note, Physician History of Present Illness: Remains in rate-controlled afib after resumption of Lopressor, wound vac and wound care provided. Wound cleaned by surgeon this AM. - Current Medication List Current Medications: Active Medications Acetaminophen (Tylenol -) 650 mg PO Q6H PRN PRN Reason: PAIN LEVEL 1-5 Last Admin: 03/18/19 13:59 Dose: 650 mg Al Hydroxide/Mg Hydroxide (Mylanta Oral Suspension -) 30 ml PO TID [facility] Last Admin: 03/19/19 05:51 Dose: Not Given Amino Acids (Prosource No Carb Liquid Pkt) 30 ml PO BID@0800,1730 [facility] Last Admin: 03/19/19 09:41 Dose: 30 ml Amoxicillin/Clavulanate Potassium (Augmentin - 500mg Tablet) 1 tab PO BID@0800, 1730 [facility] Stop: 03/20/19 17:29 Last Admin: 03/19/19 09:41 Dose: 1 tab Apixaban (Eliquis -) 5 mg PO BID [facility] Last Admin: 03/19/19 09:40 Dose: 5 mg Ascorbic Acid (Vitamin C -) 500 mg PO DAILY [facility] Last Admin: 03/19/19 09:40 Dose: 500 mg Brimonidine Tartrate (Alphagan 0.2% -) 1 drop OU BID [facility] Last Admin: 03/19/19 09:43 Dose: 1 drop Docusate Sodium (Colace -) 100 mg PO TID [facility] Last Admin: 03/19/19 05:51 Dose: Not Given Ferrous Sulfate (Feosol -) 325 mg PO BID [facility] Last Admin: 03/19/19 09:39 Dose: 325 mg Hydroxyzine HCl (Atarax -) 10 mg PO Q6HPO [facility] Last Admin: 03/19/19 05:50 Dose: Not Given Latanoprost (Xalatan 0.005% Eye Drops -) 1 drop OU HS [facility] Last Admin: 03/18/19 22:56 Dose: 1 drop Losartan Potassium (Cozaar -) 25 mg PO DAILY [facility] Last Admin: 03/19/19 09:39 Dose: 25 mg Megestrol Acetate (Megace -) 20 mg PO DAILY [facility] Last Admin: 03/19/19 09:40 Dose: 20 mg Methimazole (Tapazole -) 5 mg PO DAILY [facility] Last Admin: 03/19/19 09:48 Dose: 5 mg Metoprolol Tartrate (Lopressor -) 50 mg PO BID [facility] Last Admin: 03/19/19 09:40 Dose: 50 mg Mirtazapine (Remeron -) 7.5 mg PO HS [facility] Last Admin: 03/18/19 22:28 Dose: 7.5 mg Nitroglycerin (Nitrostat -) 0.4 mg SL Q5M PRN PRN Reason: FOR CHEST PAIN Ondansetron HCl (Zofran Odt -) 4 mg SL Q6H PRN PRN Reason: NAUSEA AND/OR VOMITING Last Admin: 03/18/19 12:51 Dose: 4 mg Pantoprazole Sodium (Protonix -) 40 mg PO DAILY [facility] Last Admin: 03/19/19 09:40 Dose: 40 mg Senna (Senna -) 1 tab PO BID [facility] Last Admin: 03/19/19 09:39 Dose: 1 tab Timolol Maleate (Timoptic 0.5%) 1 drop OU BID [facility] Last Admin: 03/19/19 09:48 Dose: 1 drop Zinc Sulfate (Orazinc -) 220 mg PO DAILY [facility] Last Admin: 03/19/19 09:39 Dose: 220 mg - Objective Vital Signs: Vital Signs Temperature 98.4 F 03/19/19 06:00 Pulse Rate 100 H 03/19/19 10:00 Respiratory Rate 18 03/19/19 10:00 Blood Pressure 98/58 L 03/19/19 10:00 O2 Sat by Pulse Oximetry (%) 96 03/18/19 10:05 Constitutional: Yes: No Distress, Calm Neck: Yes: Supple Cardiovascular: Yes: Pulse Irregular Respiratory: Yes: Regular, Diminished Gastrointestinal: Yes: Normal Bowel Sounds, Soft Edema: No Labs: CBC, BMP 03/19/19 06:30 03/19/19 06:30 INR, PTT INR 1.34 (0.83-1.09) H 03/04/19 06:00 - ....Imaging Chest X-ray: Report Reviewed (NAD, no pneumoperitoneum) Problem List - Problems (1) Afib Code(s): I48.91 - UNSPECIFIED ATRIAL FIBRILLATION Qualifiers: Atrial fibrillation type: chronic Qualified Code(s): I48.2 - Chronic atrial fibrillation (2) S/P left hemicolectomy Code(s): Z90.49 - ACQUIRED ABSENCE OF OTHER SPECIFIED PARTS OF DIGESTIVE TRACT (3) Wound dehiscence, surgical Code(s): T81.31XA - DISRUPTION OF EXTERNAL OPERATION (SURGICAL) WOUND, NEC, INIT Qualifiers: Encounter type: subsequent encounter Qualified Code(s): T81.31XD - Disruption of external operation (surgical) wound, not elsewhere classified, subsequent encounter (4) Hyperthyroidism Code(s): E05.90 - THYROTOXICOSIS, UNSP WITHOUT THYROTOXIC CRISIS OR STORM (5) CAD (coronary artery disease) Code(s): I25.10 - ATHSCL HEART DISEASE OF [place] CORONARY ARTERY W/O ANG PCTRS Qualifiers: Coronary Disease-Associated Artery/Lesion type: [place] artery [place] vs. transplanted heart: [place] heart Associated angina: without angina Qualified Code(s): I25.10 - Atherosclerotic heart disease of [place] coronary artery without angina pectoris (6) CVA (cerebral vascular accident) Code(s): I63.9 - CEREBRAL INFARCTION, UNSPECIFIED Qualifiers: CVA mechanism: unspecified Qualified Code(s): I63.9 - Cerebral infarction, unspecified (7) HTN (hypertension) Code(s): I10 - ESSENTIAL (PRIMARY) HYPERTENSION Qualifiers: Hypertension type: essential hypertension Qualified Code(s): I10 - Essential (primary) hypertension Assessment/Plan 02/04/2018 Echo: Normal LV systolic function, mild LVH, mildly dilated ascending thoacic aorta, tr MR, tr TR and trace pericardial effusion DON: Normal LV size and fxn, mild MR, TR, mod AR, tr-mild CO 1. Post hemicolectomy for colon CA with post-op wound infection and bowel herniation into dehiscence site 2. Persistent AF with RVR on DOAC 3. HTN 4. DM 5. Parkinson's disease 6. Hyperthyroidism PLAN: 1. Complete empiric oral antibiotic course 2. Continue Eliquis 5 bid 3. Continue Lopressor 50 bid and Cozaar 25 qd as hemodynamics tolerated 4. Continue Tapazole 5 tid 5. Surgery input noted. Continue wound vac care and wound care, encourage proper nutritional intake.
[2019-03-19] MEDS: ACETAMINOPHEN 325 MG TABLET (FP) PO PRN ×2 (13:03→21:11)
--- NOTE | 2019-03-19 13:27 | PN ---
Progress Note, Physician Chief Complaint: patient seen and examined awaiting for authorization to SNF had BM today seen by surgery \FUA no obstruction - Current Medication List Current Medications: Active Medications Acetaminophen (Tylenol -) 650 mg PO Q6H PRN PRN Reason: PAIN LEVEL 1-5 Last Admin: 03/19/19 13:03 Dose: 650 mg Al Hydroxide/Mg Hydroxide (Mylanta Oral Suspension -) 30 ml PO TID [facility] Last Admin: 03/19/19 13:03 Dose: 30 ml Amino Acids (Prosource No Carb Liquid Pkt) 30 ml PO BID@0800,1730 [facility] Last Admin: 03/19/19 09:41 Dose: 30 ml Amoxicillin/Clavulanate Potassium (Augmentin - 500mg Tablet) 1 tab PO BID@0800, 1730 [facility] Stop: 03/20/19 17:29 Last Admin: 03/19/19 09:41 Dose: 1 tab Apixaban (Eliquis -) 5 mg PO BID [facility] Last Admin: 03/19/19 09:40 Dose: 5 mg Ascorbic Acid (Vitamin C -) 500 mg PO DAILY [facility] Last Admin: 03/19/19 09:40 Dose: 500 mg Brimonidine Tartrate (Alphagan 0.2% -) 1 drop OU BID [facility] Last Admin: 03/19/19 09:43 Dose: 1 drop Docusate Sodium (Colace -) 100 mg PO TID [facility] Last Admin: 03/19/19 13:05 Dose: Not Given Ferrous Sulfate (Feosol -) 325 mg PO BID [facility] Last Admin: 03/19/19 09:39 Dose: 325 mg Hydroxyzine HCl (Atarax -) 10 mg PO Q6HPO [facility] Last Admin: 03/19/19 12:56 Dose: 10 mg Latanoprost (Xalatan 0.005% Eye Drops -) 1 drop OU HS [facility] Last Admin: 03/18/19 22:56 Dose: 1 drop Losartan Potassium (Cozaar -) 25 mg PO DAILY [facility] Last Admin: 03/19/19 09:39 Dose: 25 mg Megestrol Acetate (Megace -) 20 mg PO DAILY [facility] Last Admin: 03/19/19 09:40 Dose: 20 mg Methimazole (Tapazole -) 5 mg PO DAILY [facility] Last Admin: 03/19/19 09:48 Dose: 5 mg Metoprolol Tartrate (Lopressor -) 50 mg PO BID [facility] Last Admin: 03/19/19 09:40 Dose: 50 mg Mirtazapine (Remeron -) 7.5 mg PO HS [facility] Last Admin: 03/18/19 22:28 Dose: 7.5 mg Nitroglycerin (Nitrostat -) 0.4 mg SL Q5M PRN PRN Reason: FOR CHEST PAIN Ondansetron HCl (Zofran Odt -) 4 mg SL Q6H PRN PRN Reason: NAUSEA AND/OR VOMITING Last Admin: 03/18/19 12:51 Dose: 4 mg Pantoprazole Sodium (Protonix -) 40 mg PO DAILY [facility] Last Admin: 03/19/19 09:40 Dose: 40 mg Senna (Senna -) 1 tab PO BID [facility] Last Admin: 03/19/19 13:07 Dose: Not Given Timolol Maleate (Timoptic 0.5%) 1 drop OU BID [facility] Last Admin: 03/19/19 09:48 Dose: 1 drop Zinc Sulfate (Orazinc -) 220 mg PO DAILY [facility] Last Admin: 03/19/19 09:39 Dose: 220 mg - Objective Vital Signs: Vital Signs Temperature 98.4 F 03/19/19 06:00 Pulse Rate 100 H 03/19/19 10:00 Respiratory Rate 18 03/19/19 10:00 Blood Pressure 98/58 L 03/19/19 10:00 O2 Sat by Pulse Oximetry (%) 96 03/18/19 10:05 Constitutional: Yes: Calm Cardiovascular: Yes: Regular Rate and Rhythm, S1, S2 Respiratory: Yes: CTA Bilaterally Gastrointestinal: Yes: Normal Bowel Sounds, Soft, Other (wound vac) Edema: No Labs: CBC, BMP 03/19/19 06:30 03/19/19 06:30 INR, PTT INR 1.34 (0.83-1.09) H 03/04/19 06:00 Problem List - Problems (1) Wound dehiscence, surgical Assessment/Plan: wound vac to lower wound packing with gauze to the upper wound bid abx for 5 days high protein diet ensure magic cup bid prostat ct scan done Microbiology 03/12/19 17:03 Abdomen Gram Stain - Final 03/12/19 17:03 Abdomen Wound Culture - Final Staphylococcus Coagulase Neg Alpha Hemolytic Streptococcus Code(s): T81.31XA - DISRUPTION OF EXTERNAL OPERATION (SURGICAL) WOUND, NEC, INIT Qualifiers: Encounter type: subsequent encounter Qualified Code(s): T81.31XD - Disruption of external operation (surgical) wound, not elsewhere classified, subsequent encounter (2) Afib Assessment/Plan: eliquis and lopressor Code(s): I48.91 - UNSPECIFIED ATRIAL FIBRILLATION Qualifiers: Atrial fibrillation type: chronic Qualified Code(s): I48.2 - Chronic atrial fibrillation (3) Hyperthyroidism Assessment/Plan: methimazole 5mg po tid seen by endocrine Code(s): E05.90 - THYROTOXICOSIS, UNSP WITHOUT THYROTOXIC CRISIS OR STORM (4) Anemia Assessment/Plan: oral iron Code(s): D64.9 - ANEMIA, UNSPECIFIED (5) Glaucoma Assessment/Plan: eye drops Code(s): H40.9 - UNSPECIFIED GLAUCOMA Assessment/Plan transfer to [facility] with [facility] vac
[2019-03-19] MEDS ORDERED: LOSARTAN POTASSIUM 25 MG TABLET PO SCH (16:42)
[2019-03-19] MEDS ORDERED: SODIUM CHLORIDE 0.9% 500 ML INFUS.BAG IV ONE (16:43)
[2019-03-19] MEDS: traMADol HCL 50 MG TABLET PO PRN (18:19)
[2019-03-19] MEDS: MIRTAZAPINE 15 MG TABLET (FP) PO SCH (21:14)
[2019-03-19] MEDS: LATANOPROST 0.005% OPHTH SOLN 2.5ML BOTTLE OU SCH (21:19)
[2019-03-19] MEDS: METOPROLOL TARTRATE 25 MG TABLET (FP) PO SCH (22:12)
[2019-03-20] MEDS: hydrOXYzine HCL 10 MG TABLET PO SCH ×4 (00:21→12:31)
[2019-03-20] MEDS: traMADol HCL 50 MG TABLET PO PRN (00:22)
[2019-03-20] MEDS: MAG HYDROX/AL HYDROX/SIMETH 30 ML UNIT-DOSE CUP PO SCH ×2 (05:56→14:59)
[2019-03-20] MEDS: DOCUSATE SODIUM 100 MG CAPSULE (FP) PO SCH ×2 (05:56→14:59)
[2019-03-20] MEDS: AMINO ACIDS/PROTEIN HYDROLYS 30 ML LIQUID.PKT PO SCH (08:42)
[2019-03-20] MEDS: AMOX TR/POT CLAV 500MG/125MG TABLETS (FP) PO SCH (08:43)
[2019-03-20] MEDS: BRIMONIDINE TARTRATE 0.2% OPHTHALMIC 5 ML BOTTLE OU SCH (11:40)
[2019-03-20] MEDS: PANTOPRAZOLE 40 MG TABLET (FP) PO SCH (11:42)
[2019-03-20] MEDS: FERROUS SO4 325 MG TABLET (FP) PO SCH (11:42)
[2019-03-20] MEDS: APIXABAN 5 MG TABLET PO SCH (11:42)
[2019-03-20] MEDS: SENNOSIDES 8.6MG TABLET (FP) PO SCH (11:42)
[2019-03-20] MEDS: METOPROLOL TARTRATE 25 MG TABLET (FP) PO SCH (11:43)
[2019-03-20] MEDS: METHIMAZOLE 5 MG TABLET (FP) PO SCH (11:44)
[2019-03-20] MEDS: TIMOLOL 0.5% OPHTHALMIC SOL 5 ML BOTTLE OU SCH (11:45)
[2019-03-20] MEDS: MEGESTROL ACETATE 20 MG TABLET PO SCH (11:46)
--- NOTE | 2019-03-20 14:00 | PN ---
Progress Note, Physician Chief Complaint: Not in distress History of Present Illness: Patient was seen and examined. Awake. Chart was reviewed Denies chest pain, SOB or palpitations - Current Medication List Current Medications: Active Medications Acetaminophen (Tylenol -) 650 mg PO Q6H PRN PRN Reason: PAIN LEVEL 1-5 Last Admin: 03/19/19 21:11 Dose: 650 mg Al Hydroxide/Mg Hydroxide (Mylanta Oral Suspension -) 30 ml PO TID [facility] Last Admin: 03/20/19 05:56 Dose: Not Given Amino Acids (Prosource No Carb Liquid Pkt) 30 ml PO BID@0800,1730 [facility] Last Admin: 03/20/19 08:42 Dose: 30 ml Amoxicillin/Clavulanate Potassium (Augmentin - 500mg Tablet) 1 tab PO BID@0800, 1730 [facility] Stop: 03/20/19 17:29 Last Admin: 03/20/19 08:43 Dose: 1 tab Apixaban (Eliquis -) 5 mg PO BID [facility] Last Admin: 03/20/19 11:42 Dose: 5 mg Brimonidine Tartrate (Alphagan 0.2% -) 1 drop OU BID [facility] Last Admin: 03/20/19 11:40 Dose: 1 drop Docusate Sodium (Colace -) 100 mg PO TID [facility] Last Admin: 03/20/19 05:56 Dose: Not Given Ferrous Sulfate (Feosol -) 325 mg PO BID [facility] Last Admin: 03/20/19 11:42 Dose: 325 mg Hydroxyzine HCl (Atarax -) 10 mg PO Q6HPO [facility] Last Admin: 03/20/19 12:31 Dose: Not Given Latanoprost (Xalatan 0.005% Eye Drops -) 1 drop OU HS [facility] Last Admin: 03/19/19 21:19 Dose: 1 drop Losartan Potassium (Cozaar -) 25 mg PO DAILY [facility] Last Admin: 03/20/19 11:43 Dose: 25 mg Megestrol Acetate (Megace -) 20 mg PO DAILY [facility] Last Admin: 03/20/19 11:46 Dose: 20 mg Methimazole (Tapazole -) 5 mg PO DAILY [facility] Last Admin: 03/20/19 11:44 Dose: 5 mg Metoprolol Tartrate (Lopressor -) 25 mg PO BID [facility] Last Admin: 03/20/19 11:43 Dose: 25 mg Mirtazapine (Remeron -) 7.5 mg PO HS [facility] Last Admin: 03/19/19 21:14 Dose: 7.5 mg Nitroglycerin (Nitrostat -) 0.4 mg SL Q5M PRN PRN Reason: FOR CHEST PAIN Ondansetron HCl (Zofran Odt -) 4 mg SL Q6H PRN PRN Reason: NAUSEA AND/OR VOMITING Last Admin: 03/18/19 12:51 Dose: 4 mg Pantoprazole Sodium (Protonix -) 40 mg PO DAILY [facility] Last Admin: 03/20/19 11:42 Dose: 40 mg Senna (Senna -) 1 tab PO BID [facility] Last Admin: 03/20/19 11:42 Dose: 1 tab Timolol Maleate (Timoptic 0.5%) 1 drop OU BID [facility] Last Admin: 03/20/19 11:45 Dose: 1 drop Tramadol HCl (Ultram -) 50 mg PO Q8H PRN PRN Reason: PAIN LEVEL 7 - 10 Last Admin: 03/20/19 00:22 Dose: 50 mg - Objective Vital Signs: Vital Signs Temperature 98.3 F 03/20/19 10:00 Pulse Rate 117 H 03/20/19 10:00 Respiratory Rate 18 03/20/19 10:00 Blood Pressure 121/72 03/20/19 10:00 O2 Sat by Pulse Oximetry (%) 96 03/19/19 21:00 Neck: Yes: Supple Cardiovascular: Yes: Tachycardia, Pulse Irregular, S1, S2 Respiratory: Yes: Diminished Gastrointestinal: Yes: Normal Bowel Sounds, Soft, Abdomen, Obese, Other (Post op ) Edema: No Labs: CBC, BMP 03/19/19 06:30 03/19/19 06:30 Problem List - Problems (1) Abdominal pain Code(s): R10.9 - UNSPECIFIED ABDOMINAL PAIN Qualifiers: Abdominal location: unspecified location Qualified Code(s): R10.9 - Unspecified abdominal pain (2) Afib Code(s): I48.91 - UNSPECIFIED ATRIAL FIBRILLATION Qualifiers: Atrial fibrillation type: chronic Qualified Code(s): I48.2 - Chronic atrial fibrillation (3) Anemia Code(s): D64.9 - ANEMIA, UNSPECIFIED (4) S/P left hemicolectomy Code(s): Z90.49 - ACQUIRED ABSENCE OF OTHER SPECIFIED PARTS OF DIGESTIVE TRACT (5) Colonic mass Code(s): K63.9 - DISEASE OF INTESTINE, UNSPECIFIED (6) Hyperthyroidism Code(s): E05.90 - THYROTOXICOSIS, UNSP WITHOUT THYROTOXIC CRISIS OR STORM (7) Acute on chronic diastolic (congestive) heart failure Code(s): I50.33 - ACUTE ON CHRONIC DIASTOLIC (CONGESTIVE) HEART FAILURE (8) Asthma Code(s): J45.909 - UNSPECIFIED ASTHMA, UNCOMPLICATED Qualifiers: Asthma severity: mild Asthma persistence: intermittent Asthma complication type: unspecified Qualified Code(s): J45.20 - Mild intermittent asthma, uncomplicated (9) CAD (coronary artery disease) Code(s): I25.10 - ATHSCL HEART DISEASE OF [place] CORONARY ARTERY W/O ANG PCTRS Qualifiers: Coronary Disease-Associated Artery/Lesion type: [place] artery [place] vs. transplanted heart: [place] heart Associated angina: without angina Qualified Code(s): I25.10 - Atherosclerotic heart disease of [place] coronary artery without angina pectoris (10) CVA (cerebral vascular accident) Code(s): I63.9 - CEREBRAL INFARCTION, UNSPECIFIED Qualifiers: CVA mechanism: unspecified Qualified Code(s): I63.9 - Cerebral infarction, unspecified (11) HTN (hypertension) Code(s): I10 - ESSENTIAL (PRIMARY) HYPERTENSION Qualifiers: Hypertension type: essential hypertension Qualified Code(s): I10 - Essential (primary) hypertension (12) Parkinson disease Code(s): G20 - PARKINSON'S DISEASE (13) Weakness Code(s): R53.1 - WEAKNESS Assessment/Plan 1. Post hemicolectomy for colon CA with post-op wound infection and bowel herniation into dehiscence site 2. Persistent AF with RVR on DOAC 3. HTN 4. DM 5. Parkinson's disease 6. Hyperthyroidism PLAN: 1. Empiric antibiotics 2. Continue Eliquis 5 mg BID 3. Continue [id number] mg BID and Cozaar 25 mg QD as tolerated 4. Continue Tapazole 5 mg TID 5. Continue wound care and supportive care Further plans are to follow. Johann Cowan MD
--- NOTE | 2019-03-20 14:22 | PN ---
Progress Note, Physician - Current Medication List Current Medications: Active Medications Acetaminophen (Tylenol -) 650 mg PO Q6H PRN PRN Reason: PAIN LEVEL 1-5 Last Admin: 03/19/19 21:11 Dose: 650 mg Al Hydroxide/Mg Hydroxide (Mylanta Oral Suspension -) 30 ml PO TID [facility] Last Admin: 03/20/19 05:56 Dose: Not Given Amino Acids (Prosource No Carb Liquid Pkt) 30 ml PO BID@0800,1730 [facility] Last Admin: 03/20/19 08:42 Dose: 30 ml Amoxicillin/Clavulanate Potassium (Augmentin - 500mg Tablet) 1 tab PO BID@0800, 1730 [facility] Stop: 03/20/19 17:29 Last Admin: 03/20/19 08:43 Dose: 1 tab Apixaban (Eliquis -) 5 mg PO BID [facility] Last Admin: 03/20/19 11:42 Dose: 5 mg Brimonidine Tartrate (Alphagan 0.2% -) 1 drop OU BID [facility] Last Admin: 03/20/19 11:40 Dose: 1 drop Docusate Sodium (Colace -) 100 mg PO TID [facility] Last Admin: 03/20/19 05:56 Dose: Not Given Ferrous Sulfate (Feosol -) 325 mg PO BID [facility] Last Admin: 03/20/19 11:42 Dose: 325 mg Hydroxyzine HCl (Atarax -) 10 mg PO Q6HPO [facility] Last Admin: 03/20/19 12:31 Dose: Not Given Latanoprost (Xalatan 0.005% Eye Drops -) 1 drop OU [facility] Last Admin: 03/19/19 21:19 Dose: 1 drop Losartan Potassium (Cozaar -) 25 mg PO DAILY [facility] Last Admin: 03/20/19 11:43 Dose: 25 mg Megestrol Acetate (Megace -) 20 mg PO DAILY [facility] Last Admin: 03/20/19 11:46 Dose: 20 mg Methimazole (Tapazole -) 5 mg PO DAILY [facility] Last Admin: 03/20/19 11:44 Dose: 5 mg Metoprolol Tartrate (Lopressor -) 25 mg PO BID [facility] Last Admin: 03/20/19 11:43 Dose: 25 mg Mirtazapine (Remeron -) 7.5 mg PO [facility] Last Admin: 03/19/19 21:14 Dose: 7.5 mg Nitroglycerin (Nitrostat -) 0.4 mg SL Q5M PRN PRN Reason: FOR CHEST PAIN Ondansetron HCl (Zofran Odt -) 4 mg SL Q6H PRN PRN Reason: NAUSEA AND/OR VOMITING Last Admin: 03/18/19 12:51 Dose: 4 mg Pantoprazole Sodium (Protonix -) 40 mg PO DAILY [facility] Last Admin: 03/20/19 11:42 Dose: 40 mg Senna (Senna -) 1 tab PO BID [facility] Last Admin: 03/20/19 11:42 Dose: 1 tab Timolol Maleate (Timoptic 0.5%) 1 drop OU BID [facility] Last Admin: 03/20/19 11:45 Dose: 1 drop Tramadol HCl (Ultram -) 50 mg PO Q8H PRN PRN Reason: PAIN LEVEL 7 - 10 Last Admin: 03/20/19 00:22 Dose: 50 mg - Objective Vital Signs: Vital Signs Temperature 98.3 F 03/20/19 10:00 Pulse Rate 117 H 03/20/19 10:00 Respiratory Rate 18 03/20/19 10:00 Blood Pressure 121/72 03/20/19 10:00 O2 Sat by Pulse Oximetry (%) 96 03/19/19 21:00 Labs: CBC, BMP 03/19/19 06:30 03/19/19 06:30 INR, PTT INR 1.34 (0.83-1.09) H 03/04/19 06:00
--- NOTE | 2019-03-20 15:09 | DS ---
Physical Examination Vital Signs: Vital Signs Temperature 98.3 F 03/20/19 10:00 Pulse Rate 117 H 03/20/19 10:00 Respiratory Rate 18 03/20/19 10:00 Blood Pressure 121/72 03/20/19 10:00 O2 Sat by Pulse Oximetry (%) 96 03/19/19 21:00 Constitutional: Yes: No Distress Cardiovascular: Yes: Pulse Irregular Respiratory: Yes: On Nasal O2 Renal/: Yes: Incontinence Musculoskeletal: Yes: Muscle Weakness Integumentary: Yes: Other Wound/Incision: Yes: Other (WOUNDVAC) Labs: CBC, BMP 03/19/19 06:30 03/19/19 06:30 Discharge Summary Reason For Visit: STATUS POST LEFT HEMICOLECTOMY,ABD PAIN Current Active Problems Abdominal pain (Acute) Afib (Acute) Anemia (Acute) Anxiety as acute reaction to exceptional stress (Acute) Chest pain (Acute) Glaucoma (Acute) Hypokalemia (Acute) Nausea & vomiting (Acute) Obesity (BMI 30-39.9) (Acute) S/P left hemicolectomy (Acute) 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) Wound dehiscence, surgical (Acute) Procedures: Principal: CT SCAN Hospital Course: WOUND CARE WOUND VAC, SURGERY EVAL WILL NEED SNF PLACEMENT WITH CHRONIC WOUND CARE Condition: Stable - Instructions Diet, Activity, Other Instructions: check free t4 and tsh monthly augmetin bid for 5 days [employer] VAC to the the inferior wound and physician supervise BID wound care for the superior aspect of the wound; FOLLOW UP WITH SURGERY DR EASTMAN IN 1 WEEK Disposition: DETENTION FACILITY - Home Medications Comprehensive Discharge Medication List: Ambulatory Orders Bimatoprost [Lumigan] 1 drop OU DAILY 04/09/17 Brimonidine Tartrate/Timolol [Combigan 0.2%-0.5% Eye Drops] 5 ml OU BID Latanoprost 0.005% Eye Drops [Xalatan 0.005% Eye Drops -] 1 drop HS 02/14/19 Methimazole 5 mg PO TID 02/14/19 Acetaminophen [Tylenol .Regular Strength -] 650 mg PO Q6H PRN tablet 03/02/19 Apixaban [Eliquis -] 5 mg PO BID tablet 03/02/19 Ascorbic Acid [Vitamin C -] 500 mg PO DAILY tablet 03/02/19 Docusate Sodium [Colace -] 100 mg PO TID capsule 03/02/19 Ferrous Sulfate [Feosol] 325 mg PO DAILY ud 03/02/19 Losartan Potassium [Cozaar -] 25 mg PO DAILY tablet 03/02/19 Metoprolol Tartrate [Lopressor -] 50 mg PO BID tablet 03/02/19 Sennosides [Senna -] 1 tab PO BID tablet 03/02/19 Acetaminophen [Tylenol .Regular Strength -] 650 mg PO Q4H PRN tablet 03/09/19 Amino Acids/Protein Hydrolys [Prosource No Carb Liquid Pkt] 30 ml PO BID@0800, 1730 packet 03/09/19 Amox-Tr/K Cl [Augmentin 875-125mg Tablet -] 1 tab PO BID@0800,1730 #20 tablet MDD 2 03/09/19 Megestrol Acetate [Megace -] 20 mg PO DAILY tablet 03/09/19 Omeprazole 20 mg PO DAILY #30 tablet. MDD 1 03/09/19 Timolol 0.5% [Timoptic 0.5%] 1 drop OU BID drops 03/09/19 Zinc Sulfate [Orazinc -] 220 mg PO DAILY capsule 03/09/19 traMADol HCL [Ultram -] 50 mg PO Q8H PRN #10 tablet MDD 2 03/09/19 Amox-Tr/K Cl [Augmentin 500-125mg Tablet -] 1 tab PO BID@0800,1730 #10 tablet Acetaminophen [Tylenol .Regular Strength -] 650 mg PO Q6H PRN tablet 03/16/19 Amino Acids/Protein Hydrolys [Prosource No Carb Liquid Pkt] 30 ml PO BID@0800, 1730 packet 03/16/19 Mag Hydrox/Al Hydrox/Simeth [MAALOX *SUSPENSION* -] 30 ml PO TID #60 ml Mirtazapine [Remeron -] 7.5 mg PO HS tablet 03/16/19 Pantoprazole Sodium [Protonix -] 40 mg PO DAILY tablet.ec 03/16/19 Timolol 0.5% [Timoptic 0.5%] 1 drop OU BID drops 03/16/19 Zinc Sulfate [Orazinc -] 220 mg PO DAILY capsule 04/26/19 traMADol HCL [Ultram -] 50 mg PO Q6H PRN #14 tablet MDD 3 03/16/19
[2019-03-20 15:12] VITALS: BP 92/44; PULSE 95; TEMP 98.5
[2019-03-20 16:10] VITALS: BMI 34.5
== END 2019-03-20 17:52 | DRG 920 ==
LOC: JER 12:17 → JERBED 14:37 → J6S 23:17 → JICU 03-04 08:19 → J4W 03-04 15:41 → J5S 03-09 20:49
PROVIDERS: ADMIT Family Medicine; ATTEND Family Medicine
DX: T81.31XA Disruption of external operation (surgical) wound, not elsewhere classified, initial encounter (principal); I50.32 Chronic diastolic (congestive) heart failure; E78.5 Hyperlipidemia, unspecified; E11.9 Type 2 diabetes mellitus without complications; Z85.038 Personal history of other malignant neoplasm of large intestine; Z79.01 Long term (current) use of anticoagulants; I11.0 Hypertensive heart disease with heart failure; E05.90 Thyrotoxicosis, unspecified without thyrotoxic crisis or storm; E66.9 Obesity, unspecified; Y83.8 Other surgical procedures as the cause of abnormal reaction of the patient, or of later complication, without mention of misadventure at the time of the procedure; I48.2 Chronic atrial fibrillation; G20 Parkinson's disease; D50.9 Iron deficiency anemia, unspecified; Z85.41 Personal history of malignant neoplasm of cervix uteri; J45.909 Unspecified asthma, uncomplicated; E87.6 Hypokalemia; Z68.34 Body mass index [BMI] 34.0-34.9, adult; F41.9 Anxiety disorder, unspecified; H40.9 Unspecified glaucoma; R11.2 Nausea with vomiting, unspecified
CPT/HCPCS: 36415; 71045-TC-FY; 71046-TC-FY; 74019-TC-FY; 74176-TC; 74177-TC; 80048; 80053; 81003; 83605; 83735; 84100; 84134; 84439; 84443; 84481; 84484; 85025; 85027; 85610; 85730; 86850; 86900; 86901; 87040; 87070; 87077; 87086; 87205; 93005; 93010; 97116-GP; 97161-GP; 99285-25; J0131; J1644; J7030; J8999; Q0162; Q9967

== ENCOUNTER 2019-03-27 19:12 | Inpatient (IN) | payer OTHER ==
--- NOTE | 2019-03-27 19:39 | PDOC ---
History of Present Illness - General Chief Complaint: Nausea/Vomiting Stated Complaint: NAUSEA/VOMITING Time Seen by Provider: 03/27/19 19:32 - History of Present Illness Initial Comments: 03/27/19 21:23 The patient is an 83 year old female with a history of HTN, HLD, DM, Afib, Colon CA s/p hemicolectomy who presents for evaluation of abdominal pain, nausea , vomiting, and fever. The patient is accompanied by family who assist in providing the history. They note that the patient was recently admitted to the hospital for several weeks following post-surgical complications from the patient's hemicolectomy. She was recently discharged on 03/20/19 to a SNF for rehab, however the patient's family notes that she has not been eating well and over the past 1-2 days has been experiencing worsening nausea, vomiting, and upper abdominal pain with reported subjective fevers and chills prompting her presentation to the ED for further evaluation. They note that she has continued to have bowel movements and pass flatus. They note a notable non- productive cough as well, but otherwise deny chest pain, SOB, or changes with urination. Past History - Past Medical History Allergies/Adverse Reactions: Allergies Allergy/AdvReac Type Severity Reaction Status Date / Time No Known Allergies Allergy Verified 03/27/19 19:44 Home Medications: Ambulatory Orders Bimatoprost [Lumigan] 1 drop OU DAILY 04/09/17 Brimonidine Tartrate/Timolol [Combigan 0.2%-0.5% Eye Drops] 5 ml OU BID Latanoprost 0.005% Eye Drops [Xalatan 0.005% Eye Drops -] 1 drop HS 02/14/19 Methimazole 5 mg PO TID 02/14/19 Acetaminophen [Tylenol .Regular Strength -] 650 mg PO Q6H PRN tablet 03/02/19 Apixaban [Eliquis -] 5 mg PO BID tablet 03/02/19 Ascorbic Acid [Vitamin C -] 500 mg PO DAILY tablet 03/02/19 Docusate Sodium [Colace -] 100 mg PO TID capsule 03/02/19 Ferrous Sulfate [Feosol] 325 mg PO DAILY ud 03/02/19 Losartan Potassium [Cozaar -] 25 mg PO DAILY tablet 03/02/19 Metoprolol Tartrate [Lopressor -] 50 mg PO BID tablet 03/02/19 Sennosides [Senna -] 1 tab PO BID tablet 03/02/19 Acetaminophen [Tylenol .Regular Strength -] 650 mg PO Q4H PRN tablet 03/09/19 Amino Acids/Protein Hydrolys [Prosource No Carb Liquid Pkt] 30 ml PO BID@0800, 1730 packet 03/09/19 Amox-Tr/K Cl [Augmentin 875-125mg Tablet -] 1 tab PO BID@0800,1730 #20 tablet MDD 2 03/09/19 Megestrol Acetate [Megace -] 20 mg PO DAILY tablet 03/09/19 Omeprazole 20 mg PO DAILY #30 tablet.dr MDD 1 03/09/19 Timolol 0.5% [Timoptic 0.5%] 1 drop OU BID drops 03/09/19 Zinc Sulfate [Orazinc -] 220 mg PO DAILY capsule 03/09/19 traMADol HCL [Ultram -] 50 mg PO Q8H PRN #10 tablet MDD 2 03/09/19 Amox-Tr/K Cl [Augmentin 500-125mg Tablet -] 1 tab PO BID@0800,1730 #10 tablet Acetaminophen [Tylenol .Regular Strength -] 650 mg PO Q6H PRN tablet 03/16/19 Amino Acids/Protein Hydrolys [Prosource No Carb Liquid Pkt] 30 ml PO BID@0800, 1730 packet 03/16/19 Mag Hydrox/Al Hydrox/Simeth [MAALOX *SUSPENSION* -] 30 ml PO TID #60 ml Mirtazapine [Remeron -] 7.5 mg PO HS tablet 03/16/19 Pantoprazole Sodium [Protonix -] 40 mg PO DAILY tablet.ec 03/16/19 Timolol 0.5% [Timoptic 0.5%] 1 drop OU BID drops 03/16/19 Zinc Sulfate [Orazinc -] 220 mg PO DAILY capsule 03/16/19 traMADol HCL [Ultram -] 50 mg PO Q6H PRN #14 tablet MDD 3 03/16/19 Amox-Tr/K Cl [Augmentin 500-125mg Tablet -] 1 tab PO BID@0800,1730 7 Days #14 tablet 03/20/19 Megestrol Acetate [Megace -] 20 mg PO DAILY tablet 03/20/19 Nitroglycerin Sublingual [Nitrostat -] 0.4 mg SL Q5M PRN tab 03/20/19 hydrOXYzine HCL [Atarax -] 10 mg PO Q6HPO tablet 03/20/19 Anemia: No Asthma: Yes Cancer: Yes (cervical, colon) Cardiac Disorders: Yes (A-FIB) CVA: No COPD: No CHF: Yes DVT: No Dementia: No Diabetes: Yes GI Disorders: Yes (gerd) Disorders: No HTN: Yes Hypercholesterolemia: Yes Liver Disease: No Seizures: No Thyroid Disease: Yes (hyperthyroid) - Surgical History Abdominal Surgery: Yes Cardiac Surgery: No Lung Surgery: No Neurologic Surgery: No - Suicide/Smoking/Psychosocial Hx Smoking History: Never smoked Have you smoked in the past 12 months: No Number of Cigarettes Smoked Daily: 0 Hx Alcohol Use: No Drug/Substance Use Hx: No Substance Use Type: None Hx Substance Use Treatment: No Review of Systems - Review of Systems Comments:: 03/27/19 21:28 Constitutional: Fevers, chills, No fatigue, malaise HEENT: No Rhinorrhea, nasal congestion, visual changes Cardiovascular: No chest pain, syncope, palpitations, lightheadedness Respiratory: Cough, No SOB, Hemoptysis, Gastrointestinal: Abdominal pain, Nausea, Vomiting, No Constipation, Diarrhea, Melena Genitourinary: No Dysuria, Frequency, Urgency, Hesitancy, Hematuria, Flank pain Musculoskeletal: No Myalgia, arthralgia Skin: No rashes, itching, bruising, pallor Neurologic: No Headache, Dizziness, Numbness, Weakness, or Tingling Psychiatric: No Hallucinations. No SI or HI *Physical Exam - Physical Exam Comments: 03/27/19 21:28 General Appearance: Nourished. No Apparent Distress HEENT: EOMI, [place]. No Pharyngeal Erythema, Tonsillar Exudate, Tonsillar Erythema Neck: No Cervical Lymphadenopathy Respiratory/Chest: Lungs Clear, Normal Breath Sounds. No Crackles, Rales, Rhonchi, Wheezing Cardiovascular: Regular Rhythm, Regular Rate. No Murmur, Gallops, Rubs Gastrointestinal/Abdominal: Normal Bowel Sounds, Upper abdominal tenderness to palpation. 2 Vertical midline incision with purulent discharge from the superior wound noted. No Guarding, Rebound, Musculoskeletal: No CVA Tenderness Extremity: Normal Capillary Refill Integumentary: Normal Color, Dry, Warm Neurologic: Fully Oriented, Alert, Normal Mood/Affect, Normal Response, ED Treatment Course - LABORATORY CBC & Chemistry Diagram: 03/27/19 20:21 03/27/19 20:27 Medical Decision Making - Medical Decision Making 03/27/19 21:31 The patient is an 83 year old female with a history of HTN, HLD, DM, Afib, Colon CA s/p hemicolectomy who presents for evaluation of abdominal pain, nausea , vomiting, and fever. Differential includes but is not limited to: Sepsis, Intra-abdominal fistula, Intra-abdominal Abscess, Pneumonia, Influenza, Infectious, Metabolic Derangement. Given the patient's history and physical exam, we will obtain a cbc, cmp, lactate, troponin, blood cultures, ua, urine cultures, CT abdomen/pelvis, chest plain film to evaluate further. We will treat with iv fluids, tylenol, zofran, vanc, and zosyn. The patient will likely require admission for further management. We will continue to monitor and reassess while here in the ED. 03/27/19 21:49 CBC is unchanged from prior. CMP is unremarkable. Lactate is elevated to 2.8. Troponin is unremarkable. Chest plain film and CT abdomen/pelvis are currently pending as is UA. Patient signed out to Dr. Deal pending imaging results and admission. *DC/Admit/Observation/Transfer Diagnosis at time of Disposition: Sepsis Qualifiers: Sepsis type: sepsis due to unspecified organism Qualified Code(s): A41.9 - Sepsis, unspecified organism - Discharge Dispostion Condition at time of disposition: Stable - Referrals Referrals: Efraín Fortune MD [Primary Care Provider] - - Patient Instructions - Post Discharge Activity
[2019-03-27 20:39] LABS: BASO % 0.7 % (0-2.0); EOS % 1.6 % (0-4.5); HEMATOCRIT 26.9 % (32.4-45.2); HEMOGLOBIN 8.7 GM/dL (10.7-15.3); LYMPH % 21.3 % (8-40); MCH 25.2 pg (25.7-33.7); MCHC 32.4 g/dl (32.0-36.0); MEAN PLT VOLUME 6.8 fl (7.5-11.1); MONO % 15.7 % (3.8-10.2); NEUT % 60.7 % (42.8-82.8); PLATELET COUNT 519 K/MM3 (134-434); RBC 3.45 M/mm3 (3.60-5.2); RDW 31.8 % (11.6-15.6); WHITE BLOOD COUNT 7.2 K/mm3 (4.0-10.0)
[2019-03-27] MEDS ORDERED: ONDANSETRON 4 MG/2 ML VIAL IVPUSH ONE (20:48)
[2019-03-27] MEDS ORDERED: SODIUM CHLORIDE 1,000 ML IV STA (20:48)
[2019-03-27] MEDS ORDERED: ACETAMINOPHEN 1000 MG/100 ML VIAL (NON FORMULARY) IVPB ONE (20:48)
[2019-03-27] MEDS ORDERED: ONDANSETRON 4 MG/2 ML VIAL ONE (21:07)
[2019-03-27] MEDS ORDERED: ACETAMINOPHEN INJECTION 100 ML IVPB ONE (21:07)
[2019-03-27] MEDS ORDERED: VANCOMYCIN 1,000 MG in DEXTROSE 5%-WATER - 250 ML IVPB ONE (21:14)
[2019-03-27] MEDS ORDERED: PIPERACILLIN/TAZOB 4.5 GM 4.5 GM in DEXTROSE 5%-WATER 100 ML IVPB ONE (21:14)
[2019-03-27 21:17] LABS: INR 1.56 (0.83-1.09); PROTHROMBIN TIME (PATIENT) 18.5 SEC (9.7-13.0)
[2019-03-27 21:20] LABS: ACTIVATED PTT 34.5 SECONDS (25.2-36.5)
[2019-03-27 21:25] LABS: ALBUMIN 2.1 g/dl (3.4-5.0); ALK PHOS 110 U/L (45-117); ANION GAP 8 MMOL/L (8-16); BILIRUBIN,TOTAL 0.2 mg/dL (0.2-1); BLOOD UREA NITROGEN 12 mg/dL (7-18); CALCIUM 8.5 mg/dL (8.5-10.1); CHLORIDE 104 mmol/L (98-107); CO2 25 mmol/L (21-32); CREATININE 0.8 mg/dL (0.55-1.3); GLUCOSE,RANDOM 105 mg/dL (74-106); POTASSIUM 4.5 mmol/L (3.5-5.1); SGOT/AST 14 U/L (15-37); SGPT/ALT 11 U/L (13-61); SODIUM 137 mmol/L (136-145); TOT PROT 6.1 g/dl (6.4-8.2)
--- NOTE | 2019-03-27 21:59 | PDOC ---
*Physical Exam - Vital Signs Last Vital Signs Temp Pulse Resp BP Pulse Ox 100.4 F H 125 H 19 101/58 L 97 03/27/19 20:34 03/27/19 19:15 03/27/19 19:15 03/27/19 19:15 03/27/19 19:15 ED Treatment Course - LABORATORY CBC & Chemistry Diagram: 03/27/19 20:21 03/27/19 20:27 - ADDITIONAL ORDERS Additional order review: Laboratory Results 03/27/19 03/27/19 03/27/19 20:27 20:21 20:21 PT with INR INR PTT (Actin FS) Sodium 137 Cancelled Potassium 4.5 Cancelled Chloride 104 Cancelled Carbon Dioxide 25 Cancelled Anion Gap 8 Cancelled BUN 12 Cancelled Creatinine 0.8 Cancelled Creat Clearance w eGFR 68.67 Cancelled Random Glucose 105 Cancelled Lactic Acid 2.8 H* Calcium 8.5 Cancelled Total Bilirubin 0.2 Cancelled AST 14 L Cancelled ALT 11 L Cancelled Alkaline Phosphatase 110 Cancelled Troponin I < 0.02 Cancelled Total Protein 6.1 L Cancelled Albumin 2.1 L Cancelled 03/27/19 20:21 PT with INR 18.50 H INR 1.56 H PTT (Actin FS) 34.5 Sodium Potassium Chloride Carbon Dioxide Anion Gap BUN Creatinine Creat Clearance w eGFR Random Glucose Lactic Acid Calcium Total Bilirubin AST ALT Alkaline Phosphatase Troponin I Total Protein Albumin 03/27/19 20:21 RBC 3.45 L MCV 78.0 L MCHC 32.4 RDW 31.8 H MPV 6.8 L D Neutrophils % 60.7 Lymphocytes % 21.3 Monocytes % 15.7 H Eosinophils % 1.6 Basophils % 0.7 - Medications Given in the ED: ED Medications Discontinued Medications Generic Name Dose Route Start Last Admin Trade Name Freq PRN Reason Stop Dose Admin Acetaminophen 1,000 mg 03/27/19 20:48 03/27/19 21:20 Ofirmev Injection - IVPB 03/27/19 20:49 1,000 mg ONCE ONE Administration Sodium Chloride 1,000 mls @ 1,000 mls/hr 03/27/19 20:48 03/27/19 21:19 Normal Saline - IV 03/27/19 21:47 1,000 mls/hr ASDIR STA Administration Ondansetron HCl 4 mg 03/27/19 20:48 03/27/19 21:20 Zofran Injection IVPUSH 03/27/19 20:49 4 mg ONCE ONE Administration Medical Decision Making - Medical Decision Making 03/27/19 21:58 Pt signed out to me by Dr. Sin. 83F who presents with sepsis, likely 2/2 to wound in abdomen. Pending CTAP. Pt passing gas and having BM's. 03/28/19 00:44 CT Impression: Status post surgery with surgical sutures is seen around the splenic flexure of the colon and with persistent surrounding mesenteric stranding/edema present. Midline surgical defect extending from the supraumbilical level down to the pelvis. A small to moderate size hernia in the anterior pelvic wall is again seen with herniating bowel and without evidence of incarceration. There is suggestion of a very shallow subcutaneous collection measuring 3.7 x 1.6 cm in transverse and AP dimension and approximately 12.5 cm in craniocaudal length starting along superior margin of the above-described hernia up to the supraumbilical level. Cannot rule out infection/abscess. Correlate clinically. A few subcutaneous air pockets are present at the supraumbilical level suggestive of wound dehiscence. Correlate clinically. Case d/w Dr. Alvarado, surgeon who operated on pt. He is aware of pt. Does not believe wound is source of infection. Will microblog for admission. 03/28/19 01:[address] Greene for admission. He requests med/surg bed. *DC/Admit/Observation/Transfer Diagnosis at time of Disposition: Sepsis Qualifiers: Sepsis type: sepsis due to unspecified organism Qualified Code(s): A41.9 - Sepsis, unspecified organism - Discharge Dispostion Condition at time of disposition: Guarded Decision to Admit order: Yes - Referrals Referrals: Efraín Fortune MD [Primary Care Provider] - - Patient Instructions - Post Discharge Activity
[2019-03-27] MEDS ORDERED: PIPERACILLIN/TAZOB 4.5 GM 4.5 GM/100 ML BAG IVPB ONE (22:01)
[2019-03-27] MEDS ORDERED: VANCOMYCIN 1 GRAM (PRE-DOCKED) 1,000 MG/250 ML BAG IVPB ONE ×2 (22:01→23:24)
[2019-03-27 22:08] LABS: EPI CELLS 5.9 /HPF (0-5/HPF); HYALINE CASTS 19 /lpf (0-8); PH,URINE 5.5 (5.0-8.0); URINE APPEARANCE CLEAR; URINE BILIRUBIN NEGATIVE (NEGATIVE); URINE COLOR YELLOW; URINE GLUCOSE (UA) NEGATIVE (NEGATIVE); URINE KETONE TRACE (NEGATIVE); URINE LEUK ESTERASE 1+ (NEGATIVE); URINE NITRITE NEGATIVE (NEGATIVE); URINE PROTEIN TRACE (NEGATIVE); URINE RBC 3 /hpf (0-4); URINE UROBILINOGEN 0.2 mg/dL (0.2-1.0); URINE WBC 7 /hpf (0-5)
[2019-03-27 22:46] LABS: URINE BACTERIA 1.5 /hpf (NEGATIVE)
--- NOTE | 2019-03-27 22:59 | PDOC ---
Documentation entered by Leonard Johnson SCRIBE, acting as scribe for Lucy Hernández DO. Lucy Hernández DO: This documentation has been prepared by the Alex torrez Matthew, SCRIBE, under my direction and personally reviewed by me in its entirety. I confirm that the documentation accurately reflects all work, treatment, procedures, and medical decision making performed by me. Attending Attestation - Resident Resident Name: Dario Sin - ED Attending Attestation I have performed the following: I have examined & evaluated the patient, The case was reviewed & discussed with the resident, I agree w/resident's findings & plan - HPI HPI: 03/27/19 20:58 Patient is an 83 year old female with a significant past medical history of Parkinson's, AFIB, CHF (diastolic), HTN, Hyperlipidemia, Asthma, Cancer (colon), Hyperthyroidism, who presents to the ED with complaints of elevated fever that began earlier this week. As per patient's daughters, patient was recently discharged from the hospital x1 week ago after being admitted for abdominal pain secondary to hemicolectomy. They report patient has been experiencing gradually elevating fever as well as associated symptoms of hypotension, nausea , vomiting and decreased appetite, prompting daughter to bring the patient into the ED for further evaluation. Denies chest pain, sob. Denies nausea,vomiting. Denies fevers, chills. Denies contact with sick individuals, out of state travelling. Denies dysuria, hematuria. Denies constipation, diarrhea. Denies any other symptoms. Allergies: NKDA. Social history: No smoking. No alcohol. No illicit drugs. Surgical history: Hysterectomy (salpinoophrectomy) PMD: Dr. Fortune - Physicial Exam PE: 03/27/19 20:58 Agree with residents Physical Exam - Critical Care Time Total Critical Care Time: 40 Critical Care Statement: The care of this patient involved high complexity decision making to prevent further life threatening deterioration of the patient 's condition and/or to evaluate & treat vital organ system(s) failure or risk of failure. - Medical Decision Making 03/27/19 22:58 83-year-old female status post abdominal surgery secondary to malignancy now with fever Patient has persistent puslike drainage from the superior aspect of the wound which has been cultured Sepsis protocol has been initiated CT scan of the abdomen and pelvis IV fluids/IV antibiotics admission pending
--- NOTE | 2019-03-28 02:34 | HP ---
CHIEF COMPLAINT: lethary, loss of appetite PCP: Francois Galvin obtained mainly from ER staff and patient's daughter as patient is noncooperative HISTORY OF PRESENT ILLNESS: 83 y/o woman diagnosed with Colon Ca had a L- Hemicolectomy-02/20 and was discharged 03/02 to [facility], presented on 03/04 with abdominal pain wound infection,abscess formation,requiring debridement, broad spectrum abx, wound vac , wound care, d/c back on AL 03/20 on- augmentin? Cultures grew coag(-) staph, alpha hemolytic streptococcus. Now returning to hospital with daughter- lethargic, decreased appetite with subjective fevers and chills. ER course was notable for: (1) abdomen/pelvis CT (2) zosyn (3) vancomycin Recent Travel: no PAST MEDICAL HISTORY: Colon Ca (s/p Hemicolectomy, 02/2019), HTN, HLD, Afib ( on Eliquis), Diastolic CHF, HLD, Hyperthyroidism PAST SURGICAL HISTORY:Hysterectomy (salpinoophrectomy), hemicolectomy Social History: unable to obtain Smoking: Alcohol: Drugs: Family History: unable to obtain Allergies No Known Allergies Allergy (Verified 03/27/19 19:44) HOME MEDICATIONS: Home Medications Medication Instructions Recorded Bimatoprost [Lumigan] 1 drop OU DAILY 04/09/17 Brimonidine Tartrate/Timolol 5 ml OU BID 02/17/18 [Combigan 0.2%-0.5% Eye Drops] Latanoprost 0.005% Eye Drops 1 drop HS 02/14/19 [Xalatan 0.005% Eye Drops -] Methimazole 5 mg PO TID 02/14/19 Apixaban [Eliquis -] 5 mg PO BID tablet 03/02/19 Ascorbic Acid [Vitamin C -] 500 mg PO DAILY tablet 03/02/19 Docusate Sodium [Colace -] 100 mg PO TID capsule 03/02/19 Ferrous Sulfate [Feosol] 325 mg PO DAILY ud 03/02/19 Losartan Potassium [Cozaar -] 25 mg PO DAILY tablet 03/02/19 Metoprolol Tartrate [Lopressor -] 50 mg PO BID tablet 03/02/19 Sennosides [Senna -] 1 tab PO BID tablet 03/02/19 Omeprazole 20 mg PO DAILY #30 tablet.dr MDD 1 03/09/19 Acetaminophen [Tylenol .Regular 650 mg PO Q6H PRN tablet 03/16/19 Strength -] Amino Acids/Protein Hydrolys 30 ml PO BID@0800,1730 packet 03/16/19 [Prosource No Carb Liquid Pkt] Mag Hydrox/Al Hydrox/Simeth 30 ml PO TID #60 ml 03/16/19 [MAALOX *SUSPENSION* -] Mirtazapine [Remeron -] 7.5 mg PO HS tablet 03/16/19 Pantoprazole Sodium [Protonix -] 40 mg PO DAILY tablet.ec 03/16/19 Timolol 0.5% [Timoptic 0.5%] 1 drop OU BID drops 03/16/19 Zinc Sulfate [Orazinc -] 220 mg PO DAILY capsule 03/16/19 traMADol HCL [Ultram -] 50 mg PO Q6H PRN #14 tablet MDD 3 03/16/19 Amox-Tr/K Cl [Augmentin 500-125mg 1 tab PO BID@0800,1730 7 Days #14 03/20/19 Tablet -] tablet Megestrol Acetate [Megace -] 20 mg PO DAILY tablet 03/20/19 Nitroglycerin Sublingual 0.4 mg SL Q5M PRN tab 03/20/19 [Nitrostat -] hydrOXYzine HCL [Atarax -] 10 mg PO Q6HPO tablet 03/20/19 REVIEW OF SYSTEMS -unable to obtain, patient is lethargic and uncooperative PHYSICAL EXAMINATION Vital Signs - 24 hr 03/27/19 03/27/19 03/27/19 19:15 20:34 22:14 Temperature 99.4 F 100.4 F H Pulse Rate 125 H Pulse Rate [ 129 H Left Apical] Respiratory 19 20 Rate Blood Pressure 101/58 L Blood Pressure 95/65 [Left Arm] O2 Sat by Pulse 97 97 Oximetry (%) GENERAL: drowsy, nontoxic, obese HEAD: Normal with no signs of trauma. EYES: Pupils equal, round and reactive to light, extraocular movements intact, sclera anicteric, conjunctiva clear. No lid lag. EARS, NOSE, THROAT: Ears normal, nares patent, oropharynx clear without exudates. Moist mucous membranes. NECK: Normal range of motion, supple without lymphadenopathy, JVD, or masses. LUNGS: Breath sounds equal, clear to auscultation bilaterally. No wheezes, and no crackles. No accessory muscle use. HEART: irregularly irregular, tachycardia ABDOMEN: lower mid-abdomen midline wound opened with purulent discharge soaking through gauze MUSCULOSKELETAL: Normal range of motion at all joints. No bony deformities or tenderness. No CVA tenderness. UPPER EXTREMITIES: 2+ pulses, warm, well-perfused. No cyanosis. No clubbing. No peripheral edema. LOWER EXTREMITIES: 2+ pulses, warm, well-perfused. No calf tenderness. No peripheral edema. NEUROLOGICAL: Cranial nerves II-XII intact. Normal speech. Normal gait. PSYCHIATRIC: Cooperative. Good eye contact. Appropriate mood and affect. SKIN: Warm, dry, normal turgor, no rashes or lesions noted, normal capillary refill. Laboratory Results - last 24 hr 03/27/19 03/27/19 03/27/19 20:21 20:21 20:21 WBC 7.2 RBC 3.45 L Hgb 8.7 L Hct 26.9 L MCV 78.0 L MCH 25.2 L MCHC 32.4 RDW 31.8 H Plt Count 519 H D MPV 6.8 L D Absolute Neuts (auto) 4.3 Neutrophils % 60.7 Lymphocytes % 21.3 Monocytes % 15.7 H Eosinophils % 1.6 Basophils % 0.7 Nucleated RBC % 0 PT with INR 18.50 H INR 1.56 H PTT (Actin FS) 34.5 Sodium Cancelled Potassium Cancelled Chloride Cancelled Carbon Dioxide Cancelled Anion Gap Cancelled BUN Cancelled Creatinine Cancelled Creat Clearance w eGFR Cancelled Random Glucose Cancelled Lactic Acid Calcium Cancelled Total Bilirubin Cancelled AST Cancelled ALT Cancelled Alkaline Phosphatase Cancelled Troponin I Cancelled Total Protein Cancelled Albumin Cancelled Urine Color Urine Appearance Urine pH Ur Specific Jewett Urine Protein Urine Glucose (UA) Urine Ketones Urine Blood Urine Nitrite Urine Bilirubin Urine Urobilinogen Ur Leukocyte Esterase Urine WBC (Auto) Urine RBC (Auto) Urine Casts (Auto) U Epithel Cells (Auto) Urine Bacteria (Auto) Influenza A (Rapid) Influenza B (Rapid) 03/27/19 03/27/19 03/27/19 20:21 20:27 20:27 WBC RBC Hgb Hct MCV MCH MCHC RDW Plt Count MPV Absolute Neuts (auto) Neutrophils % Lymphocytes % Monocytes % Eosinophils % Basophils % Nucleated RBC % PT with INR INR PTT (Actin FS) Sodium 137 Cancelled Potassium 4.5 Cancelled Chloride 104 Cancelled Carbon Dioxide 25 Cancelled Anion Gap 8 Cancelled BUN 12 Cancelled Creatinine 0.8 Cancelled Creat Clearance w eGFR 68.67 Cancelled Random Glucose 105 Cancelled Lactic Acid 2.8 H* Calcium 8.5 Cancelled Total Bilirubin 0.2 Cancelled AST 14 L Cancelled ALT 11 L Cancelled Alkaline Phosphatase 110 Cancelled Troponin I < 0.02 Total Protein 6.1 L Cancelled Albumin 2.1 L Cancelled Urine Color Urine Appearance Urine pH Ur Specific Jewett Urine Protein Urine Glucose (UA) Urine Ketones Urine Blood Urine Nitrite Urine Bilirubin Urine Urobilinogen Ur Leukocyte Esterase Urine WBC (Auto) Urine RBC (Auto) Urine Casts (Auto) U Epithel Cells (Auto) Urine Bacteria (Auto) Influenza A (Rapid) Influenza B (Rapid) 03/27/19 03/27/19 21:43 21:43 WBC RBC Hgb Hct MCV MCH MCHC RDW Plt Count MPV Absolute Neuts (auto) Neutrophils % Lymphocytes % Monocytes % Eosinophils % Basophils % Nucleated RBC % PT with INR INR PTT (Actin FS) Sodium Potassium Chloride Carbon Dioxide Anion Gap BUN Creatinine Creat Clearance w eGFR Random Glucose Lactic Acid Calcium Total Bilirubin AST ALT Alkaline Phosphatase Troponin I Total Protein Albumin Urine Color Yellow Urine Appearance Clear Urine pH 5.5 Ur Specific Jewett 1.023 Urine Protein Trace Urine Glucose (UA) Negative Urine Ketones Trace H Urine Blood Negative Urine Nitrite Negative Urine Bilirubin Negative Urine Urobilinogen 0.2 Ur Leukocyte Esterase 1+ H Urine WBC (Auto) 7 Urine RBC (Auto) 3 Urine Casts (Auto) 19 U Epithel Cells (Auto) 5.9 Urine Bacteria (Auto) 1.5 Influenza A (Rapid) Negative Influenza B (Rapid) Negative Imaging reviewed ASSESSMENT/PLAN: #Sepsis secondary to abdominal wound dehiscence s/p hemicolectomy, wound site infection with visible pus in incision site and fluid collection on CT of abdomen and pelvis. Patient is drowsy but appears nontoxic. Mild lactic acidosis. VS stable. As per Dr. Deal of ER, Dr. Alvarado of surgery was contacted over phone from ER and is aware. -med/surg -NPO for now -blood cultures x2 -wound culture sent -ua -lactate -f/u official read - abd/pelvis CT -zosyn -vancomcyin -ID consult -surgery consult -wound care -tight glucose control -monitor VS closely -morphine prn if pain #AF with RVR on DOAC -c/w home dose metoprolol 50mg po bid -c/w Eliquis #HTN-controlled -metoprolol -losartan #DM -BGM -a1c -tight glucose control to ensure wound healing #Hyperthyroidism -home dose methimazole 5mg po tid -dvt ppx-on eliquis Visit type - Emergency Visit Emergency Visit: Yes ED Registration Date: 03/28/19 Care time: The patient presented to the Emergency Department on the above date and was hospitalized for further evaluation of their emergent condition. - New Patient This patient is new to me today: Yes Date on this admission: 03/28/19 - Critical Care Critical Care patient: No
[2019-03-28] MEDS ORDERED: DEXTROSE 5%-WATER - 50 ML IVPB ONE (03:45)
[2019-03-28] MEDS ORDERED: PIPERACILLIN/TAZOBACTAM 3.375 GM VIAL IVPB ONE (03:45)
[2019-03-28] MEDS ORDERED: PIPERACILLIN/TAZOB 3.375 GM 3.375 GM in DEXTROSE 5%-WATER - 50 ML IVPB ONE (03:45)
[2019-03-28] MEDS: SODIUM CHLORIDE 1,000 ML IV SCH (03:54)
[2019-03-28 04:21] VITALS: BMI 34.0
[2019-03-28] MEDS: DOCUSATE SODIUM 100 MG CAPSULE (FP) PO SCH ×3 (06:09→23:30)
[2019-03-28] MEDS: METHIMAZOLE 5 MG TABLET (FP) PO SCH ×3 (06:09→23:31)
--- NOTE | 2019-03-28 08:12 | PN ---
Progress Note (short form) - Note Progress Note: Attending Surgeon POD#35 s/p left colectomy Patient well known to me; no c/o ?; xerred again back to the hospital from SNF for weakness; wound drainage and other c/o's; she is eating and moving her bowels. VSS AF abdo-soft; non tender; VAC not in place; distal wound granulating well and w/o drainage; proximal wound w/same drainage as before; o/w negative WBC-nl CT reviewec report and images IMP: stable PLAN: Continue LWC w/ wet to dry dressing changes TID; culture previously grew no GI warner; she is not septic from this open draining wound; drainage is most likely reactive to the suture material used in the incision closure. John Alvarado MD FACS
--- NOTE | 2019-03-28 08:27 | EKG ---
Test Reason : Blood Pressure : / mmHG Vent. Rate : 133 BPM Atrial Rate : 136 BPM P-R Int : 000 ms QRS Dur : 134 ms QT Int : 364 ms P-R-T Axes : 000 -37 -24 degrees QTc Int : 541 ms ATRIAL FIBRILLATION WITH RAPID VENTRICULAR RESPONSE LEFT AXIS DEVIATION RIGHT BUNDLE BRANCH BLOCK ABNORMAL ECG WHEN COMPARED WITH ECG OF 12-MAR-2019 14:09, T WAVE INVERSION LESS EVIDENT IN ANTEROLATERAL LEADS Confirmed by KEL GRAMAJO, ANA ([id number]) on 03/28/2019 8:27:39 AM Referred By: Confirmed By:ANA BEGUM MD
[2019-03-28 08:36] LABS: HEMATOCRIT 23.8 % (32.4-45.2); HEMOGLOBIN 7.4 GM/dL (10.7-15.3); MCH 24.7 pg (25.7-33.7); MCHC 31.2 g/dl (32.0-36.0); MEAN CELL VOLUME 79.2 fl (80-96); MEAN PLT VOLUME 6.7 fl (7.5-11.1); PLATELET COUNT 453 K/MM3 (134-434); RBC 3.01 M/mm3 (3.60-5.2); WHITE BLOOD COUNT 6.1 K/mm3 (4.0-10.0)
[2019-03-28 09:13] LABS: CALCIUM 7.8 mg/dL (8.5-10.1); POTASSIUM 4.4 mmol/L (3.5-5.1)
[2019-03-28] MEDS ORDERED: PT OWN MED DRAWER 7, Y5N ONE ×3 (09:18→20:09)
[2019-03-28] MEDS: METOPROLOL TARTRATE 50 MG TABLET (FP) PO SCH ×2 (09:35→23:30)
[2019-03-28] MEDS: LATANOPROST 0.005% OPHTH SOLN 2.5ML BOTTLE OU SCH ×2 (09:35→23:33)
[2019-03-28] MEDS: ASCORBIC ACID 500 MG TABLET (FP) PO SCH (09:36)
[2019-03-28] MEDS: LOSARTAN POTASSIUM 25 MG TABLET PO SCH (09:36)
[2019-03-28] MEDS: APIXABAN 5 MG TABLET PO SCH ×2 (09:36→23:30)
[2019-03-28] MEDS: PANTOPRAZOLE 40 MG TABLET (FP) PO SCH (09:36)
[2019-03-28] MEDS ORDERED: HEPARIN NA (PORCINE) 5,000 UNITS/ML 1ML VIAL SQ SCH (10:00)
[2019-03-28 10:13] LABS: CREATININE 0.7 mg/dL (0.55-1.3)
[2019-03-28] MEDS: TIMOLOL 0.5% OPHTHALMIC SOL 5 ML BOTTLE OU SCH ×2 (14:22→23:32)
[2019-03-28] MEDS ORDERED: IRON SUCROSE INJECTION 200 MG in SODIUM CHLORIDE 90 ML IVPB ONE (14:30)
--- NOTE | 2019-03-28 14:36 | DS ---
Physical Examination Vital Signs: Vital Signs Temperature 98 F 03/28/19 06:49 Pulse Rate 127 H 03/28/19 06:49 Respiratory Rate 20 03/28/19 06:49 Blood Pressure 132/68 03/28/19 06:49 O2 Sat by Pulse Oximetry (%) 98 03/28/19 04:07 Findings/Remarks: Patient is an 83 y/o female with past medical history of Colon CA with L hemicolectomy on 02/20 to [facility]. Patient returned to [facility] on 03/04 with complaints of abdominal wound infection with formation of abscess was treated with IV ABT and then discharged to SNF on PO ABT. Patient returned to ER with daughter for increased lethargy, decreased appetite, fever, and chills. Constitutional: Yes: No Distress, Calm Eyes: Yes: Conjunctiva Clear HENT: Yes: Atraumatic Cardiovascular: Yes: Pulse Irregular Respiratory: Yes: Regular, CTA Bilaterally Gastrointestinal: Yes: Normal Bowel Sounds, Soft, Abdomen, Obese Renal/: Yes: Incontinence Musculoskeletal: Yes: Muscle Weakness Extremities: Yes: WNL Edema: No Wound/Incision: Yes: Dressing Dry and Intact Neurological: Yes: Alert, Pre-Existing Deficit Psychiatric: Yes: Alert Labs: CBC, BMP 03/28/19 07:18 03/28/19 07:18 Discharge Summary Reason For Visit: SEPSIS Current Active Problems Sepsis (Acute) Hospital Course: see progress note Laboratory Tests 03/27/19 03/27/19 03/27/19 20:21 20:21 20:21 WBC 7.2 RBC 3.45 L Hgb 8.7 L Hct 26.9 L MCV 78.0 L MCH 25.2 L MCHC 32.4 RDW 31.8 H Plt Count 519 H D MPV 6.8 L D Absolute Neuts (auto) 4.3 Neutrophils % 60.7 Lymphocytes % 21.3 Monocytes % 15.7 H Eosinophils % 1.6 Basophils % 0.7 Nucleated RBC % 0 PT with INR 18.50 H INR 1.56 H PTT (Actin FS) 34.5 Sodium Cancelled Potassium Cancelled Chloride Cancelled Carbon Dioxide Cancelled Anion Gap Cancelled BUN Cancelled Creatinine Cancelled Creat Clearance w eGFR Cancelled Est GFR (CKD-EPI)AfAm Est GFR (CKD-EPI)NonAf POC Glucometer Random Glucose Cancelled Lactic Acid Calcium Cancelled Total Bilirubin Cancelled AST Cancelled ALT Cancelled Alkaline Phosphatase Cancelled Troponin I Cancelled Total Protein Cancelled Albumin Cancelled TSH Urine Color Urine Appearance Urine pH Ur Specific [place] Urine Protein Urine Glucose (UA) Urine Ketones Urine Blood Urine Nitrite Urine Bilirubin Urine Urobilinogen Ur Leukocyte Esterase Urine WBC (Auto) Urine RBC (Auto) Urine Casts (Auto) U Epithel Cells (Auto) Urine Bacteria (Auto) Influenza A (Rapid) Influenza B (Rapid) Blood Type Antibody Screen Crossmatch 03/27/19 03/27/19 03/27/19 20:21 20:27 20:27 WBC RBC Hgb Hct MCV MCH MCHC RDW Plt Count MPV Absolute Neuts (auto) Neutrophils % Lymphocytes % Monocytes % Eosinophils % Basophils % Nucleated RBC % PT with INR INR PTT (Actin FS) Sodium 137 Cancelled Potassium 4.5 Cancelled Chloride 104 Cancelled Carbon Dioxide 25 Cancelled Anion Gap 8 Cancelled BUN 12 Cancelled Creatinine 0.8 Cancelled Creat Clearance w eGFR 68.67 Cancelled Est GFR (CKD-EPI)AfAm Est GFR (CKD-EPI)NonAf POC Glucometer Random Glucose 105 Cancelled Lactic Acid 2.8 H* Calcium 8.5 Cancelled Total Bilirubin 0.2 Cancelled AST 14 L Cancelled ALT 11 L Cancelled Alkaline Phosphatase 110 Cancelled Troponin I < 0.02 Total Protein 6.1 L Cancelled Albumin 2.1 L Cancelled TSH Urine Color Urine Appearance Urine pH Ur Specific [place] Urine Protein Urine Glucose (UA) Urine Ketones Urine Blood Urine Nitrite Urine Bilirubin Urine Urobilinogen Ur Leukocyte Esterase Urine WBC (Auto) Urine RBC (Auto) Urine Casts (Auto) U Epithel Cells (Auto) Urine Bacteria (Auto) Influenza A (Rapid) Influenza B (Rapid) Blood Type Antibody Screen Crossmatch 03/27/19 03/27/19 03/28/19 21:43 21:43 06:07 WBC RBC Hgb Hct MCV MCH MCHC RDW Plt Count MPV Absolute Neuts (auto) Neutrophils % Lymphocytes % Monocytes % Eosinophils % Basophils % Nucleated RBC % PT with INR INR PTT (Actin FS) Sodium Potassium Chloride Carbon Dioxide Anion Gap BUN Creatinine Creat Clearance w eGFR Est GFR (CKD-EPI)AfAm Est GFR (CKD-EPI)NonAf POC Glucometer 73 Random Glucose Lactic Acid Calcium Total Bilirubin AST ALT Alkaline Phosphatase Troponin I Total Protein Albumin TSH Urine Color Yellow Urine Appearance Clear Urine pH 5.5 Ur Specific [place] 1.023 Urine Protein Trace Urine Glucose (UA) Negative Urine Ketones Trace H Urine Blood Negative Urine Nitrite Negative Urine Bilirubin Negative Urine Urobilinogen 0.2 Ur Leukocyte Esterase 1+ H Urine WBC (Auto) 7 Urine RBC (Auto) 3 Urine Casts (Auto) 19 U Epithel Cells (Auto) 5.9 Urine Bacteria (Auto) 1.5 Influenza A (Rapid) Negative Influenza B (Rapid) Negative Blood Type Antibody Screen Crossmatch 03/28/19 03/28/19 03/28/19 07:18 07:18 07:18 WBC 6.1 RBC 3.01 L Hgb 7.4 L Hct 23.8 L MCV 79.2 L MCH 24.7 L MCHC 31.2 L RDW 31.0 H Plt Count 453 H MPV 6.7 L Absolute Neuts (auto) Neutrophils % Lymphocytes % Monocytes % Eosinophils % Basophils % Nucleated RBC % PT with INR INR PTT (Actin FS) Sodium 139 Potassium 4.4 Chloride 110 H Carbon Dioxide 22 Anion Gap 8 BUN 7 Creatinine 0.7 Creat Clearance w eGFR Est GFR (CKD-EPI)AfAm 93.52 Est GFR (CKD-EPI)NonAf 80.69 POC Glucometer Random Glucose 80 Lactic Acid 1.3 Calcium 7.8 L Total Bilirubin AST ALT Alkaline Phosphatase Troponin I Total Protein Albumin TSH 0.18 L Urine Color Urine Appearance Urine pH Ur Specific [place] Urine Protein Urine Glucose (UA) Urine Ketones Urine Blood Urine Nitrite Urine Bilirubin Urine Urobilinogen Ur Leukocyte Esterase Urine WBC (Auto) Urine RBC (Auto) Urine Casts (Auto) U Epithel Cells (Auto) Urine Bacteria (Auto) Influenza A (Rapid) Influenza B (Rapid) Blood Type Antibody Screen Crossmatch 03/28/19 10:40 WBC RBC Hgb Hct MCV MCH MCHC RDW Plt Count MPV Absolute Neuts (auto) Neutrophils % Lymphocytes % Monocytes % Eosinophils % Basophils % Nucleated RBC % PT with INR INR PTT (Actin FS) Sodium Potassium Chloride Carbon Dioxide Anion Gap BUN Creatinine Creat Clearance w eGFR Est GFR (CKD-EPI)AfAm Est GFR (CKD-EPI)NonAf POC Glucometer Random Glucose Lactic Acid Calcium Total Bilirubin AST ALT Alkaline Phosphatase Troponin I Total Protein Albumin TSH Urine Color Urine Appearance Urine pH Ur Specific [place] Urine Protein Urine Glucose (UA) Urine Ketones Urine Blood Urine Nitrite Urine Bilirubin Urine Urobilinogen Ur Leukocyte Esterase Urine WBC (Auto) Urine RBC (Auto) Urine Casts (Auto) U Epithel Cells (Auto) Urine Bacteria (Auto) Influenza A (Rapid) Influenza B (Rapid) Blood Type O POSITIVE Antibody Screen Negative Crossmatch See Detail Active Medications Generic Name Dose Route Start Last Admin Trade Name Freq PRN Reason Stop Dose Admin Apixaban 5 mg 03/28/19 10:00 03/28/19 09:36 Eliquis - PO 5 mg BID SRIKANTH Administration Ascorbic Acid 500 mg 03/28/19 10:00 03/28/19 09:36 Vitamin C - PO 500 mg DAILY SRIKANTH Administration Docusate Sodium 100 mg 03/28/19 06:00 03/28/19 14:22 Colace - PO 100 mg TID SRIKANTH Administration Sodium Chloride 1,000 mls @ 42 mls/hr 03/28/19 02:45 03/28/19 03:54 Normal Saline - IV 42 mls/hr ASDIR SRIKANTH Administration Latanoprost 1 drop 03/28/19 10:00 03/28/19 09:35 Xalatan 0.005% Eye Drops - OU 1 drop HS SRIKANTH Administration Losartan Potassium 25 mg 03/28/19 10:00 03/28/19 09:36 Cozaar - PO 25 mg DAILY SRIKANTH Administration Methimazole 5 mg 03/28/19 06:00 03/28/19 14:22 Tapazole - PO 5 mg TID SRIKANTH Administration Metoprolol Tartrate 50 mg 03/28/19 10:00 03/28/19 09:35 Lopressor - PO 50 mg BID SRIKANTH Administration Mirtazapine 7.5 mg 03/28/19 22:00 Remeron - PO HS SRIKANTH Pantoprazole Sodium 40 mg 03/28/19 10:00 03/28/19 09:36 Protonix - PO 40 mg DAILY SRIKANTH Administration Timolol Maleate 1 drop 03/28/19 10:00 03/28/19 14:22 Timoptic 0.5% OU 1 drop BID SRIKANTH Administration Microbiology 03/28/19 06:16 Abdomen Gram Stain - Final Condition: Stable - Instructions Diet, Activity, Other Instructions: monitor CBC twice a week continue with medication as prescribed follow up with pmd in 1 week follow up with surgery for abdominal wound return to ER if develop fever, respiratory distress, chest pain, AMS Referrals: John Alvarado MD [Staff Physician] - Disposition: [facility] - Home Medications Comprehensive Discharge Medication List: Ambulatory Orders Bimatoprost [Lumigan] 1 drop OU DAILY 04/09/17 Brimonidine Tartrate/Timolol [Combigan 0.2%-0.5% Eye Drops] 5 ml OU BID Latanoprost 0.005% Eye Drops [Xalatan 0.005% Eye Drops -] 1 drop HS 02/14/19 Methimazole 5 mg PO TID 02/14/19 Apixaban [Eliquis -] 5 mg PO BID tablet 03/02/19 Ascorbic Acid [Vitamin C -] 500 mg PO DAILY tablet 03/02/19 Docusate Sodium [Colace -] 100 mg PO TID capsule 03/02/19 Ferrous Sulfate [Feosol] 325 mg PO DAILY ud 03/02/19 Losartan Potassium [Cozaar -] 25 mg PO DAILY tablet 03/02/19 Metoprolol Tartrate [Lopressor -] 50 mg PO BID tablet 03/02/19 Sennosides [Senna -] 1 tab PO BID tablet 03/02/19 Acetaminophen [Tylenol .Regular Strength -] 650 mg PO Q6H PRN tablet 03/16/19 Amino Acids/Protein Hydrolys [Prosource No Carb Liquid Pkt] 30 ml PO BID@0800, 1730 packet 03/16/19 Mag Hydrox/Al Hydrox/Simeth [MAALOX *SUSPENSION* -] 30 ml PO TID #60 ml Mirtazapine [Remeron -] 7.5 mg PO HS tablet 03/16/19 Pantoprazole Sodium [Protonix -] 40 mg PO DAILY tablet.ec 03/16/19 Timolol 0.5% [Timoptic 0.5%] 1 drop OU BID drops 03/16/19 Zinc Sulfate [Orazinc -] 220 mg PO DAILY capsule 03/16/19 traMADol HCL [Ultram -] 50 mg PO Q6H PRN #14 tablet MDD 3 03/16/19 Amox-Tr/K Cl [Augmentin 500-125mg Tablet -] 1 tab PO BID@0800,1730 7 Days #14 tablet 03/20/19 Megestrol Acetate [Megace -] 20 mg PO DAILY tablet 03/20/19 Nitroglycerin Sublingual [Nitrostat -] 0.4 mg SL Q5M PRN tab 03/20/19 hydrOXYzine HCL [Atarax -] 10 mg PO Q6HPO tablet 03/20/19
[2019-03-28] MEDS ORDERED: guaiFENesin/CODEINE 5 ML UNIT-DOSE CUPS PO PRN (17:44)
[2019-03-28] MEDS: ALBUTEROL SO4 0.083% IH SOL 2.5 MG/3 ML VIAL.NEB. NEB PRN ×2 (18:24→21:05)
[2019-03-28] MEDS ORDERED: ACETAMINOPHEN 325 MG TABLET (FP) PO ONE (20:02)
[2019-03-28] MEDS ORDERED: ACETAMINOPHEN 1000 MG/100 ML VIAL (NON FORMULARY) IVPB ONE (20:04)
[2019-03-28] MEDS ORDERED: LATANOPROST 0.005% OPHTH SOLN 2.5ML BOTTLE OS SCH (22:00)
[2019-03-28] MEDS ORDERED: MIRTAZAPINE 15 MG TABLET (FP) PO SCH (22:00)
[2019-03-29] MEDS ORDERED: PT OWN MED DRAWER 7, Y5N ONE (06:41)
[2019-03-29] MEDS: DOCUSATE SODIUM 100 MG CAPSULE (FP) PO SCH ×2 (06:48→14:48)
[2019-03-29] MEDS: METHIMAZOLE 5 MG TABLET (FP) PO SCH ×2 (06:48→14:48)
[2019-03-29 07:30] LABS: HEMATOCRIT 26.1 % (32.4-45.2); HEMOGLOBIN 8.4 GM/dL (10.7-15.3); MCH 25.4 pg (25.7-33.7); MEAN CELL VOLUME 79.4 fl (80-96); MEAN PLT VOLUME 6.6 fl (7.5-11.1); PLATELET COUNT 460 K/MM3 (134-434); RBC 3.29 M/mm3 (3.60-5.2); RDW 29.1 % (11.6-15.6); WHITE BLOOD COUNT 5.3 K/mm3 (4.0-10.0)
[2019-03-29 08:08] LABS: ALBUMIN 1.7 g/dl (3.4-5.0); BILIRUBIN,TOTAL 0.4 mg/dL (0.2-1); CALCIUM 8.3 mg/dL (8.5-10.1); CREATININE 0.5 mg/dL (0.55-1.3); POTASSIUM 4.5 mmol/L (3.5-5.1); TOT PROT 5.2 g/dl (6.4-8.2)
[2019-03-29] MEDS: ASCORBIC ACID 500 MG TABLET (FP) PO SCH (09:29)
[2019-03-29] MEDS: METOPROLOL TARTRATE 50 MG TABLET (FP) PO SCH (09:29)
[2019-03-29] MEDS: APIXABAN 5 MG TABLET PO SCH (09:29)
[2019-03-29] MEDS: PANTOPRAZOLE 40 MG TABLET (FP) PO SCH (09:29)
[2019-03-29] MEDS: LOSARTAN POTASSIUM 25 MG TABLET PO SCH (09:29)
[2019-03-29] MEDS: TIMOLOL 0.5% OPHTHALMIC SOL 5 ML BOTTLE OU SCH (09:30)
[2019-03-29] MEDS: SODIUM CHLORIDE 1,000 ML IV SCH (09:30)
[2019-03-29] MEDS ORDERED: MAG HYDROX/AL HYDROX/SIMETH 30 ML UNIT-DOSE CUP PO PRN (13:24)
--- NOTE | 2019-03-29 13:30 | PN ---
Progress Note, Physician Chief Complaint: Colon CA with L Hemicolectomy Lethargy History of Present Illness: Previous notes and events reviewed awake and alert NAD no episodes of tachycardia, afebrile BC and UC neg--pending return to [facility] - Current Medication List Current Medications: Active Medications Al Hydroxide/Mg Hydroxide (Mylanta Oral Suspension -) 30 ml PO Q6H PRN PRN Reason: DYSPEPSIA Albuterol Sulfate (Ventolin 0.083% Nebulizer Soln -) 1 amp NEB Q6H PRN PRN Reason: SHORT OF BREATH/WHEEZING Last Admin: 03/28/19 21:05 Dose: 1 amp Apixaban (Eliquis -) 5 mg PO BID [facility] Last Admin: 03/29/19 09:29 Dose: 5 mg Ascorbic Acid (Vitamin C -) 500 mg PO DAILY [facility] Last Admin: 03/29/19 09:29 Dose: 500 mg Docusate Sodium (Colace -) 100 mg PO TID [facility] Last Admin: 03/29/19 06:48 Dose: 100 mg Guaifenesin/Codeine Phosphate (Robitussin Ac -) 5 ml PO TID PRN PRN Reason: COUGH Last Admin: 03/28/19 18:19 Dose: 5 ml Sodium Chloride (Normal Saline -) 1,000 mls @ 42 mls/hr IV ASDIR [facility] Last Admin: 03/29/19 09:30 Dose: Not Given Latanoprost (Xalatan 0.005% Eye Drops -) 1 drop OU [facility] Last Admin: 03/28/19 23:33 Dose: 1 drop Losartan Potassium (Cozaar -) 25 mg PO DAILY [facility] Last Admin: 03/29/19 09:29 Dose: 25 mg Methimazole (Tapazole -) 5 mg PO TID [facility] Last Admin: 03/29/19 06:48 Dose: 5 mg Metoprolol Tartrate (Lopressor -) 50 mg PO BID [facility] Last Admin: 03/29/19 09:29 Dose: 50 mg Mirtazapine (Remeron -) 7.5 mg PO HS [facility] Last Admin: 03/28/19 23:31 Dose: 7.5 mg Pantoprazole Sodium (Protonix -) 40 mg PO DAILY [facility] Last Admin: 03/29/19 09:29 Dose: 40 mg Timolol Maleate (Timoptic 0.5%) 1 drop OU BID [facility] Last Admin: 03/29/19 09:30 Dose: 1 drop - Objective Vital Signs: Vital Signs Temperature 98.2 F 03/29/19 07:10 Pulse Rate 98 H 03/29/19 07:10 Respiratory Rate 20 03/29/19 09:00 Blood Pressure 102/62 03/29/19 07:10 O2 Sat by Pulse Oximetry (%) 94 L 03/29/19 09:00 Constitutional: Yes: No Distress, Calm Eyes: Yes: Conjunctiva Clear HENT: Yes: Atraumatic Cardiovascular: Yes: Regular Rate and Rhythm Respiratory: Yes: Regular, CTA Bilaterally Gastrointestinal: Yes: Normal Bowel Sounds, Soft, Other (dressing) Genitourinary: Yes: Incontinence Musculoskeletal: Yes: Muscle Weakness Extremities: Yes: WNL Edema: No Wound/Incision: Yes: Dressing Dry and Intact Neurological: Yes: Alert, Pre-Existing Deficit Psychiatric: Yes: Alert Labs: CBC, BMP 03/29/19 06:40 03/29/19 06:40 INR, PTT INR 1.56 (0.83-1.09) H 03/27/19 20:21 Microbiology 03/28/19 06:16 Abdomen Gram Stain - Final 03/28/19 06:16 Abdomen Wound Culture - Preliminary 03/27/19 21:43 Urine - Urine Clean Catch Urine Culture - Final NO GROWTH OBTAINED 03/27/19 20:21 Blood - Peripheral Venous Blood Culture - Preliminary NO GROWTH OBTAINED AFTER 24 HOURS, INCUBATION TO CONTINUE FOR 4 DAYS. 03/27/19 20:21 Blood - Peripheral Venous Blood Culture - Preliminary NO GROWTH OBTAINED AFTER 24 HOURS, INCUBATION TO CONTINUE FOR 4 DAYS. Problem List - Problems (1) Sepsis Assessment/Plan: -no leukocytosis -afebrile -UC, BC, abdominal wound culture neg Code(s): A41.9 - SEPSIS, UNSPECIFIED ORGANISM Qualifiers: Sepsis type: sepsis due to unspecified organism Qualified Code(s): A41.9 - Sepsis, unspecified organism (2) Abdominal pain Assessment/Plan: -pain medication -followed by surgery Code(s): R10.9 - UNSPECIFIED ABDOMINAL PAIN Qualifiers: Abdominal location: unspecified location Qualified Code(s): R10.9 - Unspecified abdominal pain (3) Afib Assessment/Plan: -Apixaban BID -Metoprolol Code(s): I48.91 - UNSPECIFIED ATRIAL FIBRILLATION Qualifiers: Atrial fibrillation type: chronic Qualified Code(s): I48.2 - Chronic atrial fibrillation (4) S/P left hemicolectomy Assessment/Plan: -surgery on board Code(s): Z90.49 - ACQUIRED ABSENCE OF OTHER SPECIFIED PARTS OF DIGESTIVE TRACT (5) HTN (hypertension) Assessment/Plan: -Cozaar -low Na diet Code(s): I10 - ESSENTIAL (PRIMARY) HYPERTENSION Qualifiers: Hypertension type: essential hypertension Qualified Code(s): I10 - Essential (primary) hypertension (6) Anemia Assessment/Plan: -s/p 1U PRBC transfusion -current Hg 8.4 Code(s): D64.9 - ANEMIA, UNSPECIFIED Assessment/Plan see problem list dvt ppx
[2019-03-29 15:16] VITALS: BP 94/54; PULSE 59; TEMP 98.7
[2019-03-29] MEDS: ALBUTEROL SO4 0.083% IH SOL 2.5 MG/3 ML VIAL.NEB. NEB PRN (15:26)
[2019-03-29] MEDS ORDERED: MICONAZOLE NITRATE 14 GM/TUBE TUBE TP SCH (22:00)
== END 2019-03-29 16:16 | DRG 863 ==
LOC: JER 19:12 → JERBED 03-28 01:52 → J8W 03-28 03:38
PROVIDERS: ADMIT Family Medicine; ATTEND Family Medicine
DX: T81.49XA Infection following a procedure, other surgical site, initial encounter (principal); C18.9 Malignant neoplasm of colon, unspecified; I50.30 Unspecified diastolic (congestive) heart failure; T81.31XA Disruption of external operation (surgical) wound, not elsewhere classified, initial encounter; E87.2 Acidosis; E78.5 Hyperlipidemia, unspecified; E11.9 Type 2 diabetes mellitus without complications; I48.91 Unspecified atrial fibrillation; I11.0 Hypertensive heart disease with heart failure; K21.9 Gastro-esophageal reflux disease without esophagitis; E05.90 Thyrotoxicosis, unspecified without thyrotoxic crisis or storm; G20 Parkinson's disease; L98.491 Non-pressure chronic ulcer of skin of other sites limited to breakdown of skin; Z85.41 Personal history of malignant neoplasm of cervix uteri; Y73.8 Miscellaneous gastroenterology and urology devices associated with adverse incidents, not elsewhere classified; Z90.49 Acquired absence of other specified parts of digestive tract
CPT/HCPCS: 36415; 36430; 36511; 71045-TC-FY; 74177-TC; 80048; 80053; 81003; 82962; 83605; 84443; 84484; 85025; 85027; 85610; 85730; 86850; 86900; 86901; 86922; 87040; 87070; 87076; 87086; 87205; 87804; 93005; 93010; 94640; 99285-25; J0131; J7030; P9038; P9058

== ENCOUNTER 2019-05-11 17:41 | Emergency (ER) | payer OTHER ==
--- NOTE | 2019-05-11 17:56 | PDOC ---
Rapid Medical Evaluation Time Seen by Provider: 05/11/19 17:53 Medical Evaluation: Allergies Allergy/AdvReac Type Severity Reaction Status Date / Time No Known Allergies Allergy Verified 05/11/19 17:54 05/11/19 17:54 I have performed a brief in-person evaluation of this patient. The patient presents with a chief complaint of:dizziness in setting of elevated BP. No CERRATO, visual changes, slurred speech, focal weakness, CP or SOB. H/o colon ca, s/p surgery, recent admission for sepsis (2/2 wound dehiscence), HTN, HLD, afib on eliquis, CHF, hyperthyroid Pertinent physical exam findings:Stable and in NAD I have ordered the following:labs/EKG The patient will proceed to the ED for further evaluation. Discharge Disposition - Diagnosis Dizziness - Referrals - Patient Instructions - Post Discharge Activity
[2019-05-11 18:00] VITALS: BMI 35.1
--- NOTE | 2019-05-11 18:21 | PDOC ---
History of Present Illness - General Chief Complaint: Lightheaded Stated Complaint: DIZZINESS/HBP Time Seen by Provider: 05/11/19 17:53 History Source: Patient Exam Limitations: Clinical Condition - History of Present Illness Initial Comments: 83 yo F from [facility] w a hx of Colon Ca (s/p Hemicolectomy, 02/2019), HTN, HLD, Afib ( on Eliquis), Diastolic CHF, HLD, Hyperthyroidism presents to the ER BIBEMS with the chief complaint of dizziness described as non-stop room spinning. The patient has been experiencing room spinning dizziness for the past 3 days. The patient states when she lies down she cannot see straight and everything is twirling. She also endorses a mild headache which came about from all the spinning. She states that she had a fever and a cough a few days prior at the half-way which she no longer has. Ever since she has had the fever her room spinning dizziness has significantly worsened. The patient denies having any neck pain, weakness, numbness, tingling, chills, or blurry vision. She also denies having experienced any chest pain, SOB, nausea , or vomiting over the past 5 days. PCP: Dr. Parrish PSH: Hysterectomy (salpinoophrectomy), hemicolectomy Allergies: NKA, NKDA Social Hx: Resident of [facility]. Denies current cigarette, alcohol, or other substance usage. Past History - Past Medical History Allergies/Adverse Reactions: Allergies Allergy/AdvReac Type Severity Reaction Status Date / Time No Known Allergies Allergy Verified 05/11/19 17:54 Home Medications: Ambulatory Orders Bimatoprost [Lumigan] 1 drop OU DAILY 04/09/17 Brimonidine Tartrate/Timolol [Combigan 0.2%-0.5% Eye Drops] 5 ml OU BID Latanoprost 0.005% Eye Drops [Xalatan 0.005% Eye Drops -] 1 drop HS 02/14/19 Methimazole 5 mg PO TID 02/14/19 Apixaban [Eliquis -] 5 mg PO BID tablet 03/02/19 Ascorbic Acid [Vitamin C -] 500 mg PO DAILY tablet 03/02/19 Docusate Sodium [Colace -] 100 mg PO TID capsule 03/02/19 Ferrous Sulfate [Feosol] 325 mg PO DAILY ud 03/02/19 Losartan Potassium [Cozaar -] 25 mg PO DAILY tablet 03/02/19 Metoprolol Tartrate [Lopressor -] 50 mg PO BID tablet 03/02/19 Sennosides [Senna -] 1 tab PO BID tablet 03/02/19 Acetaminophen [Tylenol .Regular Strength -] 650 mg PO Q6H PRN tablet 03/16/19 Amino Acids/Protein Hydrolys [Prosource No Carb Liquid Pkt] 30 ml PO BID@0800, 1730 packet 03/16/19 Mirtazapine [Remeron -] 7.5 mg PO HS tablet 03/16/19 Pantoprazole Sodium [Protonix -] 40 mg PO DAILY tablet.ec 03/16/19 Timolol 0.5% [Timoptic 0.5%] 1 drop OU BID drops 03/16/19 Zinc Sulfate [Orazinc -] 220 mg PO DAILY capsule 03/16/19 Megestrol Acetate [Megace -] 20 mg PO DAILY tablet 03/20/19 Nitroglycerin Sublingual [Nitrostat -] 0.4 mg SL Q5M PRN tab 03/20/19 hydrOXYzine HCL [Atarax -] 10 mg PO Q6HPO tablet 03/20/19 Albuterol 0.083% Nebulizer Kathrin [Ventolin 0.083% Nebulizer Soln -] 1 amp NEB Q6H PRN amp 03/29/19 Mag Hydrox/Al Hydrox/Simeth [Mylanta Oral Suspension -] 30 ml PO Q6H PRN cup Meclizine HCl [Antivert -] 25 mg PO TID PRN 5 Days #15 tablet 05/11/19 Anemia: No Asthma: Yes Cancer: Yes (cervical, colon) Cardiac Disorders: Yes (A-FIB) CVA: No COPD: No CHF: Yes DVT: No Dementia: No Diabetes: Yes GI Disorders: Yes (gerd) Disorders: No HTN: Yes Hypercholesterolemia: Yes Liver Disease: No Seizures: No Thyroid Disease: Yes (hyperthyroid) - Surgical History Abdominal Surgery: Yes (S/P Hemicolectomy (02/20/19)) Cardiac Surgery: No Lung Surgery: No Neurologic Surgery: No - Immunization History Immunization Up to Date: (Unknown) - Suicide/Smoking/Psychosocial Hx Smoking History: Unknown if ever smoked Have you smoked in the past 12 months: No Number of Cigarettes Smoked Daily: 0 Hx Alcohol Use: No Drug/Substance Use Hx: No Substance Use Type: None Hx Substance Use Treatment: No Review of Systems - Review of Systems Able to Perform ROS?: Yes Comments:: CONSTITUTIONAL: Present: Fever Absent: no chills, no fatigue EYES: Present: visual changes ENT: Absent: ear pain, no sore throat CARDIOVASCULAR: Absent: chest pain, no palpitations RESPIRATORY: Absent: cough, no SOB GI: Absent: abdominal pain, no nausea, no vomiting, no constipation, no diarrhea GENITOURINARY: Absent: dysuria, no frequency, no hematuria MUSKULOSKELETAL: Absent: back pain, no arthralgia, no myalgia SKIN: Absent: rash NEURO: Present: headache *Physical Exam - Vital Signs Last Vital Signs Temp Pulse Resp BP Pulse Ox 98.8 F 75 18 100/47 L 99 05/11/19 17:58 05/11/19 17:58 05/11/19 17:58 05/11/19 17:58 05/11/19 17:58 - Physical Exam Comments: GENERAL: The patient's face is continuously twitching. Mild distress. HEENT: Normocephalic, atraumatic. PERRLA, EOMI. No conjunctival pallor. Sclera are non- icteric. Moist mucous membranes. Oropharynx is clear. CARDIOVASCULAR: irregularly irregular PULMONARY: No evidence of respiratory distress. Lungs clear to auscultation bilaterally. No wheezing, rales or rhonchi. ABDOMEN: Soft, non-distended, non-tender. EXTREMITIES: Normal ROM in all four extremities. No gross deformities. SKIN: Warm, dry. No rash NEUROLOGICAL: Alert, awake, appropriate. Cranial nerves 2-12 intact. No deficits to light touch in face, upper extremities and lower extremities. No motor deficits in the in face, upper extremities and lower extremities. No pronator drift. Normal speech. Toes are down-going bilaterally. Patient unable to ambulate. No dysmetria. No dysdiadochokinesis. No skew deviation. No abnormal nystagmus. Head impulse test is negative. Test of skew is negative. ED Treatment Course - LABORATORY CBC & Chemistry Diagram: 05/11/19 19:28 05/11/19 19:28 - RADIOLOGY Radiograph Interpretation: CXR: 2 views the chest have been submitted. No prior studies for comparison. There is a scoliosis with convexity to the right, clear lungs, normal mediastinum and sharp angles. The bones and soft tissues are intact. Impression: No acute chest pathology. Head CT: Cranial CT without contrast Clinical information: evaluate for pathology Multiplanar imaging was performed. Intravenous contrast was not administered. No intracranial hemorrhage is seen. There is no CT evidence of acute subarachnoid hemorrhage. Correlate clinically. No extra-axial fluid collection is noted. There is no discrete infarct within the limitations of CT. No gross mass lesion is identified on noncontrast imaging. Minimal periventricular chronic microvascular changes are seen. Involutional changes are noted with mild ventricular dilatation. The calvarium appears intact. Note is made of moderate right maxillary sinus mucosal thickening which appears increased in comparison to the prior cranial CT study. Impression: No CT evidence of acute intracranial pathology. The intracranial structures demonstrate no definite interval change in comparison to a prior CT study of 04/19/2018. The moderate right maxillary sinus mucosal thickening is seen which appears to be somewhat increased since the prior exam. Medical Decision Making - Medical Decision Making 83 yo F from [facility] a hx of Colon Ca (s/p Hemicolectomy, 02/2019), HTN, HLD, Afib ( on Eliquis), Diastolic CHF, HLD, Hyperthyroidism presents to the ER [facility] with the chief complaint of dizziness described as non-stop room spinning. The patient has been experiencing room spinning dizziness for the past 3 days. The patient states when she lies down she cannot see straight and everything is twirling. She also endorses a mild headache which came about from all the spinning. She states that she had a fever and a cough a few days prior at the half-way which she no longer has. Ever since she has had the fever her room spinning dizziness has significantly worsened. - Patient takes BB for HTN. Had an episode of HTN earlier today. Vital Signs Temp Pulse Resp BP Pulse Ox 98.8 F 75 18 100/47 L 99 05/11/19 17:58 05/11/19 17:58 05/11/19 17:58 05/11/19 17:58 05/11/19 17:58 - Hypotensive DDx IBNLT: Vertigo - peripheral vs central. Recent viral illness, possibly vestibular neuronitis, labrynthitis, BPPV, menierre disease, posterior stroke, cerebellar stroke, electrolyte/metabolic disturbance, medication side effect - polypharmacy, PNA, UTI. Plan: Labs, Urine, EKG, CXR, Head CT, meclizine, POCUS, Gentle IV hydration. Repeat BP at bedside 118/64 CXR: Unremarkable. POCUS IV access: Used to obtain IV access - 20 gauge placed in right AC Cardiac: Small pericardial effusion. No large wall motion abnormalities. Lungs: Normal exam. In both uper and lower quadrants = No b-lines, normal a- lines, normal lung sliding b/l IVC: Plethoric. Mild collapsibility. Patient is unlikely to be volume depleted. Patient endorses significant relief after meclizine. - Patient able to ambulate per her baseline after meclizine. - Seen walking to bathroom in the ER. CBC unremarkable CMP: - BUN mildly elevated at 19 - giving patient 0.5 L NS - Trop negative Head CT: Unremarkable. Incident report: When the patient was getting off the cat scan machine there was an incident where she fell off the wheelchair and hit her knees and left breast. She was seen ambulating around the ED after the event without difficulty. She was also seen eating, drinking, and laughing with her family in no distress. Patient did not hit her head or neck during this fall. Patient feels better, has no active distress, states she is not currently in any pain and requests to be discharged from the ED. Dispo: Will DC patient with PCP follow up and a 5 day supply of meclizine. *DC/Admit/Observation/Transfer Diagnosis at time of Disposition: Dizziness, Vertigo - Discharge Dispostion Disposition: HOME Condition at time of disposition: Improved Decision to Admit order: No - Prescriptions Prescriptions: Meclizine HCl [Antivert -] 25 mg PO TID PRN 5 Days #15 tablet PRN Reason: Vertigo - Referrals Referrals: Anat Garnica MD [Staff Physician] - - Patient Instructions Printed Discharge Instructions: Vertigo (Alternative Therapy), DI for Vertigo Additional Instructions: You came into the ER because you were experiencing non-stop Room spinning. We believe you were experiencing an eppisode of peripheral vertigo. We are sending a medication to your pharmacy for you to go and pickle sorter and take as needed for the next 5 days. We are giving you the number of a neurologist to call and schedule an appointment with. Please make sure to call up the neurologist and schedule an appointment in the next 3 days. It is also very important that you follow up with your primary care doctor to make sure you are okay and getting better. Come back to the ER immediately if your pain worsens or you have any other new or worsening concerns. Thank you for coming to the [facility] ER. We hope you feel better soon! Print Language: CHINESE - Post Discharge Activity
--- NOTE | 2019-05-11 18:31 | PDOC ---
Attending Attestation - Resident Resident Name: PrimitivoMichele - ED Attending Attestation I have performed the following: I have examined & evaluated the patient, The case was reviewed & discussed with the resident, I agree w/resident's findings & plan - HPI HPI: 05/11/19 18:30 83 yo F from [facility] w a hx of Colon Ca (s/p Hemicolectomy, 02/2019), HTN, HLD, Afib ( on Eliquis), Diastolic CHF, HLD, Hyperthyroidism presents to the ER BIBEMS with vertigo x 3-4 days, where she describes room spinning sensation and mild headache. +right ear tinnitis. no n/v, weakness or paresthesias or focal symptoms, speech difficulty no respiratory sx,. no cp or sob no trauma no falls has history of vertigo, with similar symptoms currently. 05/11/19 20:20 05/11/19 20:23 05/11/19 20:27 - Physicial Exam PE: 05/11/19 18:30 Agree with the resident's HPI and PE as documented in the electronic medical record. NAD, well appearing, EOMI, PERRL, no nystagmus bilaterally, +facial twitching ( chronic), nl conjunctiva, anicteric; neck supple. lungs clear, irregularly irregular, no murmur, abdomen soft nontender. Back nontender. OCHOA x4, no focal neuro deficits. No peripheral edema. normal color for ethnicity, WWP. Alert, oriented appropriately. CN II-XII grossly intact. Strength prox and distally 5/5 throughout. Sensation grossly intact to light touch. OCHOA x4. No cerebellar signs, no dysmetria. Speech clear. 05/11/19 20:25 - Medical Decision Making 05/11/19 18:30 See HPI for details. Prior notes reviewed, including admissions, discharges and consultations. Vital signs reviewed, wnl. no episodes of HTN here, normotensive. no hypotension. no respiratory sx or cp DDX hypertensive crisis, ACS, arrhythmia, worsening anemia, electrolyte/ metabolic derangements, med side effect. central vs peripheral vertigo, BPPV, labrynthitis. laboratory results and imaging reviewed, basic labs and lytes wnl, CXR_similar to prior, enlarged heart, tortuous aorta, no acute chest pathology Cardiac panel_neg trop reassuring and less likely cardiac EKG Afib at 84 bpm, wide QRS, c/w RBBB, ST and T wave segments and morphology normal. Nonspecific T wave abnormalities - similar to prior "CT head neg for [facility] MAN pathology, maxillary sinusitis. ED course -interventions: meclizine and gentle IVF; tylenol for mild headache, no infectious sx no neuro deficits here, walks with cane and trial of ambulation given meclizine with resolution of sx. no cerebellar findings, so doubt central vertigo, she does admit to tinnitis in r ear, with prior neuro workup. likely etiology of peripheral vertigo less likely central vertigo ambulatory with cane, gait stable, no ataxia or imbalance. she accidentally fell at CT scan to wheelchair, landed on knee/c/o breast pain, given tylenol analgesia. no head impact or injury, ambulatory after. incident report filled out Pt to be discharged in stable condition. Patient and family made aware of clinical impression, treatment recommendations and disposition plan, return precautions discussed (including but not limited to new or persistent/worsening symptoms, pain, fevers, or signs of infection, chest pain, respiratory distress , inability to tolerate oral intake, dehydration, syncope, or neurologic changes ). Follow up with PMD and/or specialist as recommended, follow up information provided, take medications as instructed for duration of time. continue with supportive care, avoid triggers and precipitants. All questions answered to patient's satisfaction and expressed understanding and comfort with this. At the time of discharge, the patient is alert, clinically improved, tolerating po and verbalizes understanding of instructions, satisfied with the care received and felt comfortable with the plan. Patient does not suffer from an acute life- threatening medical condition at this time and is safe for outpatient follow- up. 05/11/19 22:38
[2019-05-11] MEDS ORDERED: MECLIZINE HCL 25 MG TABLET (FP) ONE (18:41)
[2019-05-11] MEDS ORDERED: MECLIZINE HCL 25 MG TABLET (FP) PO ONE (18:42)
[2019-05-11] MEDS ORDERED: SODIUM CHLORIDE 0.9% 500 ML INFUS.BAG IV ONE (18:53)
[2019-05-11 19:53] LABS: BASO % 1.1 % (0-2.0); EOS % 1.9 % (0-4.5); HEMOGLOBIN 11.4 GM/dL (10.7-15.3); LYMPH % 36.5 % (8-40); MCH 27.5 pg (25.7-33.7); MCHC 31.8 g/dl (32.0-36.0); MEAN CELL VOLUME 86.6 fl (80-96); MEAN PLT VOLUME 7.6 fl (7.5-11.1); MONO % 9.3 % (3.8-10.2); NEUT % 51.2 % (42.8-82.8); PLATELET COUNT 290 K/MM3 (134-434); RBC 4.16 M/mm3 (3.60-5.2); RDW 14.9 % (11.6-15.6); WHITE BLOOD COUNT 6.1 K/mm3 (4.0-10.0)
[2019-05-11 20:04] LABS: INR 1.29 (0.83-1.09); PROTHROMBIN TIME (PATIENT) 15.3 SEC (9.7-13.0)
[2019-05-11 20:06] LABS: ACTIVATED PTT 36.3 SECONDS (25.2-36.5)
[2019-05-11 20:29] LABS: ALBUMIN 3.4 g/dl (3.4-5.0); ALK PHOS 68 U/L (45-117); ANION GAP 9 MMOL/L (8-16); BILIRUBIN,TOTAL 0.2 mg/dL (0.2-1); BLOOD UREA NITROGEN 19.3 mg/dL (7-18); CALCIUM 8.7 mg/dL (8.5-10.1); CHLORIDE 107 mmol/L (98-107); CO2 24 mmol/L (21-32); GLUCOSE,RANDOM 100 mg/dL (74-106); POTASSIUM 4.3 mmol/L (3.5-5.1); SGOT/AST 14 U/L (15-37); SGPT/ALT 21 U/L (13-61); SODIUM 140 mmol/L (136-145); TOT PROT 6.7 g/dl (6.4-8.2)
[2019-05-11] MEDS ORDERED: ACETAMINOPHEN 1000 MG/100 ML VIAL (NON FORMULARY) IVPB ONE (21:17)
[2019-05-11] MEDS ORDERED: ACETAMINOPHEN INJECTION 100 ML IVPB ONE (21:26)
[2019-05-11 22:49] VITALS: PULSE 80
[2019-05-12 04:55] VITALS: TEMP 98.7
[2019-05-12 05:19] VITALS: BP 124/70
--- NOTE | 2019-05-12 12:47 | EKG ---
Test Reason : Blood Pressure : / mmHG Vent. Rate : 084 BPM Atrial Rate : 082 BPM P-R Int : 000 ms QRS Dur : 142 ms QT Int : 414 ms P-R-T Axes : 000 -12 005 degrees QTc Int : 489 ms ATRIAL FIBRILLATION RIGHT BUNDLE BRANCH BLOCK NONSPECIFIC ST ABNORMALITY ABNORMAL ECG WHEN COMPARED WITH ECG OF 27-MAR-2019 21:45, VENT. RATE HAS DECREASED BY 49 BPM Confirmed by SHELBY MOLINA MD ([id number]) on 05/12/2019 12:47:06 PM Referred By: Confirmed By:SHELBY MOLINA MD
== END 2019-05-11 22:50 | disposition home or self-care (01) ==
LOC: JER 17:41
PROC: 3E033NZ Introduction of Analgesics, Hypnotics, Sedatives into Peripheral Vein, Percutaneous Approach (ICD-10-PCS; principal; 2019-05-11)
PROC: B246ZZZ Ultrasonography of Right and Left Heart (ICD-10-PCS; 2019-05-11)
PROC: BB4BZZZ Ultrasonography of Pleura (ICD-10-PCS; 2019-05-11)
PROC: B54MZZ3 Ultrasonography of Right Upper Extremity Veins, Intravascular (ICD-10-PCS; 2019-05-11)
DX: R42 Dizziness and giddiness (principal); I11.0 Hypertensive heart disease with heart failure; I50.30 Unspecified diastolic (congestive) heart failure; E78.5 Hyperlipidemia, unspecified; I48.91 Unspecified atrial fibrillation; Z79.01 Long term (current) use of anticoagulants; E05.90 Thyrotoxicosis, unspecified without thyrotoxic crisis or storm; Z98.890 Other specified postprocedural states; K21.9 Gastro-esophageal reflux disease without esophagitis; E11.9 Type 2 diabetes mellitus without complications
CPT/HCPCS: 36415; 70450-TC; 71045-TC-FY; 76604; 76857; 80053; 82550; 84484; 85025; 85610; 85730; 93005; 93010; 93971; 96374; 99282-25; J0131

== ENCOUNTER 2019-09-21 12:50 | Day surgery (SDC) | payer OTHER ==
[2019-09-21 11:13] LABS: BASO % 0.3 % (0-2.0); EOS % 0.9 % (0-4.5); HEMATOCRIT 33.8 % (32.4-45.2); HEMOGLOBIN 11.2 GM/dL (10.7-15.3); MCH 28.9 pg (25.7-33.7); MCHC 33.3 g/dl (32.0-36.0); MEAN CELL VOLUME 86.8 fl (80-96); MONO % 10.4 % (3.8-10.2); NEUT % 56.4 % (42.8-82.8); PLATELET COUNT 225 K/MM3 (134-434); RBC 3.89 M/mm3 (3.60-5.2); RDW 15.3 % (11.6-15.6); WHITE BLOOD COUNT 4.9 K/mm3 (4.0-10.0)
[2019-09-21 11:45] LABS: ALBUMIN 3.3 g/dl (3.4-5.0); BILIRUBIN,TOTAL 0.5 mg/dL (0.2-1); BLOOD UREA NITROGEN 15.8 mg/dL (7-18); CALCIUM 8.7 mg/dL (8.5-10.1); CREATININE 0.8 mg/dL (0.55-1.3); MAGNESIUM 2.2 mg/dL (1.8-2.4); POTASSIUM 4.5 mmol/L (3.5-5.1); TOT PROT 6.6 g/dl (6.4-8.2)
[2019-09-21] MEDS ORDERED: FERRIC CARBOXYMALTOSE 750 MG in SODIUM CHLORIDE 250 ML IVPB ONE (14:00)
[2019-09-21 15:28] VITALS: BP 162/76; PULSE 75; TEMP 98.5
== END 2019-09-21 15:10 | disposition home or self-care (01) ==
LOC: JONCNONCHE 12:50 → EDSTATUS 12:50 → J7W 13:06 → JONCNONCHE 15:10
PROVIDERS: ATTEND Internal Medicine Hematology & Oncology
PROC: 3E033GC Introduction of Other Therapeutic Substance into Peripheral Vein, Percutaneous Approach (ICD-10-PCS; principal; 2019-09-21)
DX: D50.9 Iron deficiency anemia, unspecified (principal)
CPT/HCPCS: 36415; 80053; 80061; 83036; 83721; 83735; 84439; 84443; 84481; 85025; 96365; J1439

== ENCOUNTER 2019-10-01 05:45 | Day surgery (SDC) | payer OTHER ==
[2019-10-01] MEDS ORDERED: FERRIC CARBOXYMALTOSE 750 MG in SODIUM CHLORIDE 250 ML IVPB ONE (11:30)
[2019-10-01 16:01] VITALS: TEMP 97.8
[2019-10-01 16:07] VITALS: BP 117/60; PULSE 55
== END 2019-10-01 13:00 | disposition home or self-care (01) ==
LOC: JONCNONCHE 05:45
PROVIDERS: ATTEND Internal Medicine Hematology & Oncology
PROC: 3E033GC Introduction of Other Therapeutic Substance into Peripheral Vein, Percutaneous Approach (ICD-10-PCS; principal; 2019-10-01)
DX: D50.9 Iron deficiency anemia, unspecified (principal)
CPT/HCPCS: 96365; J1439

== ENCOUNTER 2019-10-08 09:25 | Inpatient (IN) | payer OTHER ==
--- NOTE | 2019-10-08 11:58 | HP ---
History & Physical Update - History History: No Change - Physical Physical: No Change - Assessment Assessment: No Change - Plan Plan: No Change (For open incisional hernia repair w/mesh; r/b/t/a's d/w the patient and her daughter in Yi and Maldivian and informed consent obtained.)
[2019-10-08] MEDS ORDERED: MIDAZOLAM HCL 2 MG/2 ML SINGLE DOSE VIAL ONE (12:31)
[2019-10-08] MEDS ORDERED: ROCURONIUM BROMIDE 50 MG/5 ML SYRINGE ONE ×3 (12:31→15:30)
[2019-10-08] MEDS ORDERED: ETOMIDATE 20 MG/10 ML AMPUL IVPUSH ONE (12:34)
[2019-10-08] MEDS ORDERED: LIDOCAINE HCL/PF 2% SDV 5ML VIAL ONE (12:34)
[2019-10-08] MEDS ORDERED: PROPOFOL 20 ML ONE ×2 (12:44→13:32)
[2019-10-08] MEDS ORDERED: ceFAZolin SODIUM 1 GM VIAL ONE (12:51)
[2019-10-08] MEDS ORDERED: SODIUM CHLORIDE 0.9% P/F 10 ML VIAL IJ ONE (12:51)
[2019-10-08] MEDS ORDERED: ceFAZolin SODIUM 1 GM VIAL IVPB ONE (12:52)
[2019-10-08] MEDS ORDERED: DEXAMETHASONE SOD PHOSPHATE 4 MG/1 ML VIAL ONE (12:56)
--- NOTE | 2019-10-08 16:33 | OP ---
Operative Note - Note: Operative Date: 10/08/19 Pre-Operative Diagnosis: incisional hernia Operation: incisional hernia repair w/ Phasix mesh and small bowel resection. Findings: incisional hernia/adhesions Post-Operative Diagnosis: Same as Pre-op Surgeon: John Alvarado Industrial Equipment Wirer: Michele Burleson (\) Anesthesiologist/CLINICAL EDUCATION ACADEMIC COORDINATOR: Sage Herman Anesthesia: General Specimens Removed: portion of small bowel and portion peritoneum and adhesions Estimated Blood Loss (mls): 200 Drains & Tubes with Location: 10 mm EDMUNDO x 2 Drains, Volume Out (mls): 200 (urine)
[2019-10-08] MEDS ORDERED: LACTATED RINGERS SOLUTION 1,000 ML IV SCH (16:45)
[2019-10-08] MEDS ORDERED: ACETAMINOPHEN 1000 MG/100 ML VIAL (NON FORMULARY) IVPB ONE (16:50)
--- NOTE | 2019-10-08 16:55 | CONSULT ---
Consultation: REQUESTING PROVIDER: Dr. Alvarado CONSULT REQUEST: We have been asked to medically evaluate this patient for Acute Respiratory Failure. HISTORY OF PRESENT ILLNESS: Pt. is an 84 y.o. F w/ PMHx. of HTN, HLD, Afib(on Eliquis), HFpEF, Hyperthyroidism, Parkinson's Disease, Asthma and Colon CA (s/p hemicolectomy 02/2019) presents after complicated ambulatory inguinal hernia repair surgery. Per chart review Pt. had multiple adhesions and had enterotomy during the procedure. Pt. is currently sedated and intubated with NG Tube in place. Per signout, Pt. had a "difficult airway" and was unable to be promptly extubated. Pt. is unable to provide ROS information. Pt. lost ~200cc EBL and had 200cc of urine output. Pt. now has 2 EDMUNDO drains on both sides of heavily bandaged abdomen. REVIEW OF SYSTEMS: Unable to obtain PHYSICAL EXAMINATION Vital Signs - 24 hr 10/08/19 10/08/19 09:55 10:03 Temperature 98.2 F 98.2 F Pulse Rate 94 H 94 H Respiratory 20 20 Rate Blood Pressure 142/98 142/98 O2 Sat by Pulse 96 Oximetry (%) GENERAL: Intubated and Sedated HEAD: Normal with no signs of trauma. EYES: Pupils equal, round and reactive to light, sclera anicteric, conjunctiva clear. EARS, NOSE, THROAT: Ears normal, nares patent, oropharynx clear without exudates. Moist mucous membranes. LUNGS: Mechanical Ventilation. No wheezes, and no crackles. No accessory muscle use. HEART: Irregular rate and rhythm, normal S1 and S2 without murmur ABDOMEN: Obese, Heavily bandaged with b/l EDMUNDO drains, bowel sounds sluggish UPPER EXTREMITIES: 2+ pulses, warm, well-perfused. No cyanosis. LOWER EXTREMITIES: 2+ dorsal pedal pulses, warm, well-perfused. No peripheral edema. NEUROLOGICAL: Sedated PSYCHIATRIC: Sedated SKIN: Warm, dry, normal turgor Active Medications Home Medications Medication Instructions Recorded Bimatoprost [Lumigan] 1 drop OU DAILY 04/09/17 Brimonidine Tartrate/Timolol 5 ml OU BID 02/17/18 [Combigan 0.2%-0.5% Eye Drops] Latanoprost 0.005% Eye Drops 1 drop HS 02/14/19 [Xalatan 0.005% Eye Drops -] Methimazole 10 mg PO BID 02/14/19 Apixaban [Eliquis -] 5 mg PO BID tablet 03/02/19 Ascorbic Acid [Vitamin C -] 500 mg PO DAILY tablet 03/02/19 Losartan Potassium [Cozaar -] 25 mg PO DAILY tablet 03/02/19 Metoprolol Tartrate [Lopressor -] 50 mg PO BID tablet 03/02/19 Acetaminophen [Tylenol .Regular 650 mg PO Q6H PRN tablet 03/16/19 Strength -] Timolol 0.5% [Timoptic 0.5%] 1 drop OU BID drops 03/16/19 Nitroglycerin Sublingual 0.4 mg SL Q5M PRN tab 03/20/19 [Nitrostat -] Albuterol 0.083% Nebulizer Kathrin 1 amp NEB Q6H PRN amp 03/29/19 [Ventolin 0.083% Nebulizer Soln -] Meclizine HCl [Antivert -] 25 mg PO TID PRN 5 Days #15 tablet 05/11/19 Alendronate Sodium [Fosamax] 1 tab PO WEEKLY 10/08/19 Calcium (Oyster Shell) [Os-Dioni 500 mg PO DAILY 10/08/19 500Mg -] Ertapenem Sodium [Invanz] 1 gm IJ DAILY 10/08/19 Fluticasone Prop 0.05% Nasal 1 - 2 spray NS DAILY 10/08/19 [Flonase -] Mirabegron [Myrbetriq] 50 mg PO DAILY 10/08/19 Current Medications Acetaminophen (Ofirmev Injection -) 1,000 mg IVPB ONCE ONE Stop: 10/08/19 16:51 Fentanyl (Sublimaze Injection -) 50 mcg IVPUSH [id number] PRN PRN Reason: PAIN-PACU ORDER X 4 DOSES ONLY Heparin Sodium (Porcine) (Heparin -) 5,000 unit SQ Q8H-IV SRIKANTH Lactated Ringer's (Lactated Ringers Solution) 1,000 mls @ 100 mls/hr IV ASDIR SRIKANTH Lactated Ringer's (Lactated Ringers Solution) 1,000 mls @ 75 mls/hr IV ASDIR SRIKANTH Propofol (Diprivan -) 1,000,000 mcg in 100 mls @ 4.763 mls/hr IVPB TITR SRIKANTH; Protocol Insulin Aspart (Novolog Vial Sliding Scale -) 0 vial SQ TIDAC SRIKANTH; Protocol ASSESSMENT/PLAN: Pt. is an 84 y.o. F w/ PMHx. of HTN, HLD, Afib(on Eliquis), HFpEF, Hyperthyroidism, Parkinson's Disease, Asthma and Colon CA (s/p hemicolectomy 2018) presents after complicated ambulatory inguinal hernia repair surgery. #Gastrointestinal POD#0 of inguinal hernia repair with enterotomy and mesh placement NPO c/w NG Tube pending weaning trial in AM will do bedside swallow evaluation 1st dressing change to be done by Surgery Team in AM #Cardiovascular Lopressor 5mg IVP PRN for Afib greater than 120, f/u with surgery for resuming Eliquis Hold Losartan for HTN and renal protection will give PRN IV antihypertensives overnight f/u CBC in AM c/w IVF c/w cardiac monitoring #Pulmonary c/w Propofol gtt for sedation while intubated mechanical ventilation, will maintain spO2 above 90% will titrate down sedation in AM prior to attempt weaning trial Hx. of Asthma will monitor for signs of exacerbation #Endocrine c/w ISS ACHS and BGM ACHS for NIDDM NPO Hold PO Methimazole as Pt. is NPO s/p enterotomy, (Methimazole can be crushed after discussion with Pharmacy), no IV equivalents in hospital. Per Pharmacy we have been using Beta blockers as an alternative therefore will hold off for now. #Renal f/u BMP in AM Hold Losartan monitor Is and Os #Neurology Intubated and Sedated will attempt wean in AM #FEN LR @ 75 monitor electrolytes and replete as needed NPO #DVT Ppx. SCDs will start Hep SQ in AM f/u with Surgery for resuming Eliquis 5mg BID Dispo: We will continue to follow the patient. Thank you for this consultative opportunity. Visit type - Emergency Visit Emergency Visit: Yes ED Registration Date: 10/08/19 Care time: The patient presented to the Emergency Department on the above date and was hospitalized for further evaluation of their emergent condition. - New Patient This patient is new to me today: Yes Date on this admission: 10/10/19 - Critical Care Critical Care patient: Yes Total Critical Care Time (in minutes): 45 Critical Care Statement: The care of this patient involved high complexity decision making to prevent further life threatening deterioration of the patient 's condition and/or to evaluate & treat vital organ system(s) failure or risk of failure. ATTENDING PHYSICIAN STATEMENT I saw and evaluated the patient. I reviewed the resident's note and discussed the case with the resident. I agree with the resident's findings and plan as documented. SUBJECTIVE: OBJECTIVE: ASSESSMENT AND PLAN:
[2019-10-08] MEDS ORDERED: PROPOFOL 1,000,000 MCG/100 ML VIAL IVPB SCH (17:00)
[2019-10-08] MEDS ORDERED: PROPOFOL 1000 MG/100 ML VIAL IVPB ONE (17:00)
[2019-10-08] MEDS: PROPOFOL 1,000,000 MCG/100 ML VIAL IVPB SCH (20:30)
[2019-10-08] MEDS: LACTATED RINGERS SOLUTION 1,000 ML IV SCH ×2 (20:30→22:07)
--- NOTE | 2019-10-08 21:09 | HP ---
Admitting History and Physical - Primary Care Physician PCP: Elle Bauer S - Admission Chief Complaint: s/p hernia surgery History of Present Illness: 83 yo F h/ of Colon Ca (s/p Hemicolectomy, 02/2019), HTN, HLD, Afib (on Eliquis) , Diastolic CHF, HLD, Hyperthyroidism s/p open complicated elective incisional hernia repair, adhesions, incidental enterotomy s/p partial enterectomy / reanastomosis and mesh placement, difficult airway (per note), maintained intubated postop overnight and admitted to ICU; d/w surgery dr Alvarado who requested pt to be admitted by medical PCP. Pt currently intubated sedated, VSS afebrile. chart, meds, tests, consults and events reviewed d/w dr Alvarado and d/w pt's family (daughters, son in law) History Source: Family Member, Medical Record Limitations to Obtaining History: Clinical Condition - Past Medical History [employer]: Yes: Parkinson's Cardiovascular: Yes: AFIB, HTN Pulmonary: Yes: Asthma Gastrointestinal: Yes: Cancer (colon) Heme/Onc: Yes: Cancer (? cervical CA or ovarian CA S/P hyterectomy) Endocrine: Yes: Hyperthyroidism - Past Surgical History Past Surgical History: Yes: Hysterectomy - Advance Directives Advance Directives: Yes: Health Care Proxy - Smoking History Smoking history: Never smoked Have you smoked in the past 12 months: No Aproximately how many cigarettes per day: 0 - Alcohol/Substance Use Hx Alcohol Use: No History of Substance Use: reports: None - Social History Usual Living Arrangement: Yes: With Child Do you think of yourself as: Straight/Heterosexual ADL: Family Assistance History of Recent Travel: No Home Medications - Allergies Allergies/Adverse Reactions: Allergies Allergy/AdvReac Type Severity Reaction Status Date / Time No Known Allergies Allergy Verified 10/05/19 17:29 - Home Medications Home Medications: Ambulatory Orders Bimatoprost [Lumigan] 1 drop OU DAILY 04/09/17 Brimonidine Tartrate/Timolol [Combigan 0.2%-0.5% Eye Drops] 5 ml OU BID Latanoprost 0.005% Eye Drops [Xalatan 0.005% Eye Drops -] 1 drop HS 02/14/19 Methimazole 10 mg PO BID 02/14/19 Apixaban [Eliquis -] 5 mg PO BID tablet 03/02/19 Ascorbic Acid [Vitamin C -] 500 mg PO DAILY tablet 03/02/19 Losartan Potassium [Cozaar -] 25 mg PO DAILY tablet 03/02/19 Metoprolol Tartrate [Lopressor -] 50 mg PO BID tablet 03/02/19 Acetaminophen [Tylenol .Regular Strength -] 650 mg PO Q6H PRN tablet 03/16/19 Timolol 0.5% [Timoptic 0.5%] 1 drop OU BID drops 03/16/19 Nitroglycerin Sublingual [Nitrostat -] 0.4 mg SL Q5M PRN tab 03/20/19 Albuterol 0.083% Nebulizer Kathrin [Ventolin 0.083% Nebulizer Soln -] 1 amp NEB Q6H PRN amp 03/29/19 Meclizine HCl [Antivert -] 25 mg PO TID PRN 5 Days #15 tablet 05/11/19 Alendronate Sodium [Fosamax] 1 tab PO WEEKLY 10/08/19 Calcium (Oyster Shell) [Os-Dioni 500Mg -] 500 mg PO DAILY 10/08/19 Ertapenem Sodium [Invanz] 1 gm IJ DAILY 10/08/19 Fluticasone Prop 0.05% Nasal [Flonase -] 1 - 2 spray NS DAILY 10/08/19 Mirabegron [Myrbetriq] 50 mg PO DAILY 10/08/19 Family Medical History Family History: Unremarkable Review of Systems - Review of Systems Constitutional: reports: Other (intubated). denies: Fever HENT: denies: Epistaxis Neck: denies: Stiffness Cardiovascular: denies: Edema Respiratory: denies: Wheezing Gastrointestinal: denies: Diarrhea, Rectal Bleeding Genitourinary: denies: Hematuria Musculoskeletal: denies: Joint Swelling Hematology/Lymphatic: denies: Excessive Bleeding Physical Examination Vital Signs: Vital Signs Temperature 98.3 F 10/08/19 16:41 Pulse Rate 91 H 10/08/19 19:15 Respiratory Rate 10 10/08/19 19:15 Blood Pressure 140/82 10/08/19 19:15 O2 Sat by Pulse Oximetry (%) 100 10/08/19 19:15 Constitutional: Yes: Other (intubated, sedated) Eyes: Yes: Conjunctiva Clear HENT: No: Epistaxis Neck: No: Tenderness Cardiovascular: Yes: Regular Rate and Rhythm Respiratory: Yes: CTA Bilaterally Gastrointestinal: Yes: Soft, Hypoactive Bowel Sounds, Other (s/p open surgery / dressings; draining tubes;) Renal/: No: Hematuria Musculoskeletal: No: Joint Stiffness, Joint Swelling Extremities: No: Cold, Cool, Cyanosis Edema: No Integumentary: No: Rash, Venous Stasis Changes Neurological: No: Alert Psychiatric: No: Alert, Agitated Imaging - Results Other: Report Reviewed Assessment/Plan 83 yo F h/of Colon Ca (s/p Hemicolectomy, 02/2019), HTN, HLD, Afib ( on Eliquis) , Diastolic CHF, HLD, Hyperthyroidism s/p open complicated elective incisional hernia repair, adhesions, s/p incidental enterotomy and partial small bowel resection / reanastomosis and mesh placement, difficult airway remained intubated postop for airway protection admitted go ICU mec vent per anesthesia and pulmonary ICU; weaning trial in am; IVF; cont meds; restart eliquis when OK with surgery cardiology f/u; DVT PFX, decubs, aspiration PFX; f/u labs; I/O Graham; prognosis guarded given h/o AFib., risks of [place] / CVA off AC and risks of bleeding on AC d/w pt's daughter d/w pt's family and surgery dr Alvarado t time 75 min
[2019-10-08] MEDS ORDERED: fentaNYL CITRATE 250 MCG/5 ML VIAL ONE (21:34)
[2019-10-08] MEDS ORDERED: METOPROLOL TARTRATE 50 MG TABLET (FP) PO SCH (22:00)
[2019-10-08] MEDS ORDERED: PATIENT'S OWN MEDICATION (NON-FORMULARY) (Brimonidine Tartrate/Timolol [Combigan 0.2%-0.5% OU SCH (22:00)
[2019-10-08] MEDS: FENTANYL INJECTION 500 MCG in DEXTROSE 5%-WATER - 90 ML IVPB SCH (22:08)
[2019-10-09] MEDS: TIMOLOL 0.5% OPHTHALMIC SOL 5 ML BOTTLE OU SCH ×3 (01:38→21:24)
[2019-10-09] MEDS: LATANOPROST 0.005% OPHTH SOLN 2.5ML BOTTLE OD SCH ×2 (01:39→21:24)
[2019-10-09] MEDS ORDERED: SODIUM CHLORIDE 250 ML IV STA (03:19)
[2019-10-09] MEDS ORDERED: LACTATED RINGERS SOLUTION 1000 ML INFUS.BAG IV ONE (05:17)
[2019-10-09] MEDS ORDERED: LACTATED RINGERS SOLUTION 250 ML IV ONE (05:30)
[2019-10-09] MEDS ORDERED: fentaNYL CITRATE 250 MCG/5 ML VIAL ONE ×2 (06:04→19:27)
[2019-10-09] MEDS: FENTANYL INJECTION 500 MCG in DEXTROSE 5%-WATER - 90 ML IVPB SCH ×2 (06:06→19:39)
[2019-10-09] MEDS: PROPOFOL 1,000,000 MCG/100 ML VIAL IVPB SCH ×2 (06:06→21:22)
[2019-10-09] MEDS: LACTATED RINGERS SOLUTION 1,000 ML IV SCH ×2 (06:07→18:12)
[2019-10-09] MEDS: HEPARIN NA (PORCINE) 5,000 UNITS/ML 1ML VIAL SQ SCH ×3 (06:08→21:23)
--- NOTE | 2019-10-09 07:04 | PN ---
Progress Note, Physician Chief Complaint: in ICU intubated on vent; sedated consults, tests, meds reviewed - Current Medication List Current Medications: Active Medications Chlorhexidine Gluconate (Peridex -) 15 ml MM BID [facility] Fluticasone Propionate (Flonase -) 1 spray NS DAILY [facility] Heparin Sodium (Porcine) (Heparin -) 5,000 unit SQ TID [facility] Last Admin: 10/09/19 06:08 Dose: 5,000 unit Lactated Ringer's (Lactated Ringers Solution) 1,000 mls @ 75 mls/hr IV ASDIR [facility] Last Admin: 10/09/19 06:07 Dose: 75 mls/hr Fentanyl 500 mcg/ Dextrose 100 mls @ 10 mls/hr IVPB TITR [facility] Stop: 10/09/19 21:14 Last Admin: 10/09/19 06:06 Dose: 50 mcg/hr, 10 mls/hr Propofol (Diprivan -) 1,000,000 mcg in 100 mls @ 2.381 mls/hr IVPB TITR [facility]; Protocol Last Admin: 10/09/19 06:06 Dose: 40 mcg/kg/min, 19.051 mls/hr Insulin Aspart (Novolog Vial Sliding Scale -) 0 vial SQ TIDAC [facility]; Protocol Latanoprost (Xalatan 0.005% Eye Drops -) 1 drop OD HS [facility] Last Admin: 10/09/19 01:39 Dose: 1 drop Metoprolol Tartrate (Lopressor Injection -) 5 mg IVPUSH Q4H PRN PRN Reason: HYPERTENSION Metoprolol Tartrate (Lopressor -) 25 mg PO BID [facility] Timolol Maleate (Timoptic 0.5%) 1 drop OU BID [facility] Last Admin: 10/09/19 01:38 Dose: 1 drop - Objective Vital Signs: Vital Signs Temperature 97.8 F 10/09/19 02:00 Pulse Rate 88 10/09/19 03:20 Respiratory Rate 14 10/09/19 04:35 Blood Pressure 100/79 10/09/19 03:20 O2 Sat by Pulse Oximetry (%) 100 10/08/19 21:26 Constitutional: Yes: No Distress Eyes: Yes: Conjunctiva Clear HENT: Yes: Atraumatic Neck: Yes: Supple Cardiovascular: Yes: Regular Rate and Rhythm Respiratory: Yes: Diminished Gastrointestinal: Yes: Soft. No: Tenderness Genitourinary: No: Hematuria Musculoskeletal: No: Joint Swelling Extremities: No: Cold, Cool Edema: No Integumentary: No: Rash, Venous Stasis Changes Neurological: No: Alert Psychiatric: No: Alert, Agitated - ....Imaging Other: Report Reviewed Assessment/Plan 83 yo F h/of Colon Ca (s/p Hemicolectomy, 02/2019), HTN, HLD, Afib ( on Eliquis) , Diastolic CHF, HLD, Hyperthyroidism s/p open complicated elective incisional hernia repair, adhesions, s/p incidental enterotomy and partial small bowel resection / reanastomosis and mesh placement, difficult airway access, airway swelling, remained intubated postop for airway protection admitted go ICU mec vent per anesthesia and pulmonary ICU; weaning trial per pulmonary and anesthesia; iv steroids for airway swelling per ICU IVF; cont meds; restart eliquis when OK with surgery cardiology f/u; BP control; DVT PFX, decubs, aspiration PFX; f/u labs; I/O Graham; prognosis guarded d.w staff will call pts' daughter t time 40 min
[2019-10-09 07:51] LABS: BASO % 0.2 % (0-2.0); HEMATOCRIT 32.9 % (32.4-45.2); HEMOGLOBIN 10.8 GM/dL (10.7-15.3); LYMPH % 8.8 % (8-40); MCH 28.1 pg (25.7-33.7); MCHC 32.7 g/dl (32.0-36.0); MEAN PLT VOLUME 9.1 fl (7.5-11.1); MONO % 8.1 % (3.8-10.2); NEUT % 82.9 % (42.8-82.8); PLATELET COUNT 192 K/MM3 (134-434); RBC 3.83 M/mm3 (3.60-5.2); RDW 16.2 % (11.6-15.6)
--- NOTE | 2019-10-09 08:14 | PN ---
Progress Note (short form) - Note Progress Note: POD 1, s/p incisional hernia repair w/ Phasix mesh and small bowel resection. Pt seen and examined. Remains intubated/sedated. Bp low overnight and this AM ( systolic in low 80s) bolus given last night (500ml) with good response. No other issues overnight, no pressors at this time. Vital Signs Temp 98.1 F 10/09/19 06:00 Pulse 76 10/09/19 06:00 Resp 10 10/09/19 06:00 BP 95/57 L 10/09/19 06:00 Pulse Ox 100 10/08/19 21:26 Intake & Output 10/08/19 10/08/19 10/09/19 11:59 23:59 11:59 Intake Total 1999 1641 Output Total 200 1050 300 Balance -352 906 1940 Weight 175 lb 179 lb 3.773 oz 179 lb 3.773 oz Intake: IV 1999 164 DIPRIVAN - 1,000,000 mcg 216 In 100 ml @ 5 MCG/KG/MIN 2.381 mls/hr IVPB TITR [facility] Rx#:[id number] Lactated Ringers Solution 825 1,000 ml @ 75 mls/hr IV ASDIR [facility] Rx#:[id number] Lactated Ringers Solution 250 250 ml @ 250 mls/hr IV ONCE ONE Rx#:[id number] Normal Saline - 250 ml @ 250 250 mls/hr IV ASDIR STA Rx#:[id number] Sublimaze Injection - 500 100 Mcg In D5w - 90 ml @ 50 MCG/HR 10 mls/hr IVPB TITR [facility]RI[facility] Rx#:[id number] Oral 0 Output: Gastric Drainage 0 Drainage 100 Left Abdomen 40 Right Abdomen 60 Urine 200 800 200 Berry 200 Estimated Blood Loss 250 Other: Voiding Method Indwelling Catheter Bowel Movement No No Height 5 ft 5 ft Body Mass Index (BMI) 34.2 34.9 Weight Measurement Method Built in [facility] Built in [facility] Gen: Intubated, sedated. Abdo: Dressing c/d/i, drains in place with approx 15ml serosanguinous drainage in reservoirs, tubing stripped. LEs: SCDs in place and functioning A/P: 84 y/o F w/ PMHx Parkinson's syndrome, cervical cancer s/p hysterectomy/b/ l salpingoophrectomy, afib on eliquis, HTN, Hyperthyroidism, recurrent UTI s/p Left colectomy with splenic flexure takedown in January of this past year after presenting to [facility] with anemia found to have colon mass, now POD 1, s/p incisional hernia repair w/ Phasix mesh and small bowel resection. Afebrile, periods of hypotension overnight (systolic 80s-90s). Receiving second 500ml bolus. Jps output R 60ml, L 40ml -Plan for trial of extubation today -Keep jps in place, monitor and record output -Fluids/diuresis per medicine -Keep dressing c/d/i -Monitor I&Os -VS per protocol d/w attending Dr Alvarado
[2019-10-09 08:17] LABS: ALBUMIN 2.5 g/dl (3.4-5.0); BILIRUBIN,TOTAL 0.4 mg/dL (0.2-1); BLOOD UREA NITROGEN 17.1 mg/dL (7-18); CALCIUM 7.9 mg/dL (8.5-10.1); CREATININE 0.8 mg/dL (0.55-1.3); POTASSIUM 4.4 mmol/L (3.5-5.1); TOT PROT 4.8 g/dl (6.4-8.2)
--- NOTE | 2019-10-09 08:26 | PN ---
Physical Exam: SUBJECTIVE: Patient seen and examined by the bedside, intubated and sedated. OBJECTIVE: Vital Signs Period Temp Pulse Resp BP Sys/Ugarte Pulse Ox Last 24 Hr 97.8 F-98.5 F 72-97 10-20 87-180/52-98 96-100 GENERAL: Intubated and sedated HEAD: Normal with no signs of trauma EYES: [place] NECK: Diffuse swelling LUNGS: Transmitted breath sounds B/L, no crackles or wheezes HEART: Irregular rate and rhythm, no murmur ABDOMEN: Soft, non tender, dressing with B/L EDMUNDO drains LOWER EXTREMITIES: 2+ dorsal pedal pulses, warm, well-perfused. No peripheral edema. NEUROLOGICAL: Sedated PSYCHIATRIC: Sedated SKIN: Warm, dry, normal turgor Laboratory Results - last 24 hr 10/08/19 10/09/19 10/09/19 18:05 05:51 06:25 WBC RBC Hgb Hct MCV MCH MCHC RDW Plt Count MPV Absolute Neuts (auto) Neutrophils % Lymphocytes % Monocytes % Eosinophils % Basophils % Nucleated RBC % Sodium 139 Potassium 4.4 Chloride 109 H Carbon Dioxide 24 Anion Gap 6 L BUN 17.1 Creatinine 0.8 Est GFR (CKD-EPI)AfAm 79.02 Est GFR (CKD-EPI)NonAf 68.18 POC Glucometer 124 122 Random Glucose 124 H Calcium 7.9 L Total Bilirubin 0.4 AST 25 ALT 65 H Alkaline Phosphatase 67 Total Protein 4.8 L Albumin 2.5 L 10/09/19 06:25 WBC 9.0 RBC 3.83 Hgb 10.8 Hct 32.9 MCV 86.0 MCH 28.1 MCHC 32.7 RDW 16.2 H Plt Count 192 MPV 9.1 D Absolute Neuts (auto) 7.5 Neutrophils % 82.9 H D Lymphocytes % 8.8 D Monocytes % 8.1 Eosinophils % 0.0 D Basophils % 0.2 Nucleated RBC % 0 Sodium Potassium Chloride Carbon Dioxide Anion Gap BUN Creatinine Est GFR (CKD-EPI)AfAm Est GFR (CKD-EPI)NonAf POC Glucometer Random Glucose Calcium Total Bilirubin AST ALT Alkaline Phosphatase Total Protein Albumin Active Medications Generic Name Dose Route Start Last Admin Trade Name Freq PRN Reason Stop Dose Admin Chlorhexidine Gluconate 15 ml 10/09/19 10:00 Peridex - MM BID SRIKANTH Fluticasone Propionate 1 spray 10/09/19 10:00 Flonase - NS DAILY SRIKANTH Heparin Sodium (Porcine) 5,000 unit 10/09/19 06:00 10/09/19 06:08 Heparin - SQ 5,000 unit TID SRIKANTH Administration Lactated Ringer's 1,000 mls @ 75 mls/hr 10/08/19 17:00 10/09/19 06:07 Lactated Ringers Solution IV 75 mls/hr ASDIR SRIKANTH Administration Fentanyl 500 mcg/ Dextrose 100 mls @ 10 mls/hr 10/08/19 21:15 10/09/19 06:06 IVPB 10/09/19 21:14 50 mcg/hr TITR SRIKANTH 10 mls/hr Administration 50 MCG/HR Propofol 1,000,000 mcg in 100 mls @ 2.381 mls/hr 10/08/19 21:15 10/09/19 06: 06 Diprivan - IVPB 40 mcg/kg/min TITR SRIKANTH 19.051 mls/hr Administration Protocol 5 MCG/KG/MIN Insulin Aspart 0 vial 10/09/19 07:00 Novolog Vial Sliding Scale - SQ TIDAC [facility] Protocol Latanoprost 1 drop 10/08/19 22:00 10/09/19 01:39 Xalatan 0.005% Eye Drops - OD 1 drop HS [facility]RIKANTH Administration Metoprolol Tartrate 5 mg 10/08/19 17:38 Lopressor Injection - IVPUSH Q4H PRN HYPERTENSION Metoprolol Tartrate 25 mg 10/09/19 07:00 Lopressor - PO BID SRIKANTH Timolol Maleate 1 drop 10/08/19 22:00 10/09/19 01:38 Timoptic 0.5% OU 1 drop BID SRIKN[facility] Administration ASSESSMENT/PLAN: 84F with PMH of HTN, HLD, Afib(on Eliquis), HFpEF, Hyperthyroidism, Parkinson's Disease, Asthma and Colon CA (s/p hemicolectomy 02/2019) presents after complicated ambulatory inguinal hernia repair surgery, POD 1 #GI - POD#1 of inguinal hernia repair with enterotomy and mesh placement - NG Tube in place #Cardiovascular - Lopressor 5mg IVP PRN for Afib greater than 120, f/u with surgery for resuming Eliquis - Hx of HTN, continue home med Losartan 25mg #Pulmonary - Sedated on Propofol and Fentanyl - CXR: No infiltrates - Cuff leak test today showed evidence of airway inflammation, extubation postponed - Decadron 10mg Q8H started for airway inflammation - Hx. of Asthma will monitor for signs of exacerbation #Endo - Novolog SS - Hold PO Methimazole as Pt. is NPO s/p enterotomy, (Methimazole can be crushed after discussion with Pharmacy), no IV equivalents in hospital. #Renal - Hold Losartan - Monitor I/Os #Neurology - Intubated and Sedated - Will assess mental status after weaning off sedation in AM #FEN - LR @ 75 - NPO #DVT Ppx. - SCDs - Hep 5000 SQ Visit type - Emergency Visit Emergency Visit: No - New Patient This patient is new to me today: Yes Date on this admission: 10/09/19 - Critical Care Critical Care patient: Yes Total Critical Care Time (in minutes): 38 Critical Care Statement: The care of this patient involved high complexity decision making to prevent further life threatening deterioration of the patient 's condition and/or to evaluate & treat vital organ system(s) failure or risk of failure. ATTENDING PHYSICIAN STATEMENT I saw and evaluated the patient. I reviewed the resident's note and discussed the case with the resident. I agree with the resident's findings and plan as documented. SUBJECTIVE: OBJECTIVE: ASSESSMENT AND PLAN:
[2019-10-09] MEDS ORDERED: PATIENT'S OWN MEDICATION (NON-FORMULARY) (Bimatoprost [Lumigan] 1 DROP) OU SCH (10:00)
[2019-10-09] MEDS ORDERED: LOSARTAN POTASSIUM 25 MG TABLET PO SCH (10:00)
[2019-10-09] MEDS: CHLORHEXIDINE GLUCONATE 0.12% 15ML CUP MM SCH ×2 (10:18→21:23)
[2019-10-09] MEDS: METOPROLOL TARTRATE 50 MG TABLET (FP) PO SCH ×2 (10:18→21:23)
[2019-10-09] MEDS: DEXAMETHASONE SOD PHOSPHATE 10 MG/1 ML VIAL IVPUSH SCH ×2 (10:25→18:12)
[2019-10-09] MEDS: FLUTICASONE PROP 0.05% 16 GM NASAL SPRAY NS SCH (11:20)
--- NOTE | 2019-10-09 11:36 | PN ---
Teaching Attending Note Name of Resident: Aj Chaudhary ATTENDING PHYSICIAN STATEMENT I saw and evaluated the patient. I reviewed the resident's note and discussed the case with the resident. I agree with the resident's findings and plan as documented. SUBJECTIVE: Patient seen and examined in the ICU. Intubated and sedated. AC Mode of vent. Minimal leak when the balloon on the ETT deflated. Exhaled VT almost 100% of set VT. Intake & Output 10/06/19 10/07/19 10/08/19 10/09/19 23:59 23:59 23:59 23:59 Intake Total 1999 1641 Output Total 1250 300 Balance 750 1341 Weight 179 lb 3.773 oz 179 lb 3.773 oz Last Vital Signs Temp Pulse Resp BP Pulse Ox 98.1 F 66 10 190/93 H 100 10/09/19 10:00 10/09/19 10:00 10/09/19 09:00 10/09/19 10:00 10/09/19 09:00 Active Medications Chlorhexidine Gluconate (Peridex -) 15 ml MM BID [facility] Last Admin: 10/09/19 10:18 Dose: 15 ml Dexamethasone Sodium Phosphate (Decadron Injection -) 10 mg IVPUSH Q8H-IV [facility] Last Admin: 10/09/19 10:25 Dose: 10 mg Fluticasone Propionate (Flonase -) 1 spray NS DAILY [facility] Last Admin: 10/09/19 11:20 Dose: Not Given Heparin Sodium (Porcine) (Heparin -) 5,000 unit SQ TID [facility] Last Admin: 10/09/19 06:08 Dose: 5,000 unit Lactated Ringer's (Lactated Ringers Solution) 1,000 mls @ 75 mls/hr IV ASDIR [facility] Last Admin: 10/09/19 06:07 Dose: 75 mls/hr Fentanyl 500 mcg/ Dextrose 100 mls @ 10 mls/hr IVPB TITR [facility] Stop: 10/09/19 21:14 Last Admin: 10/09/19 06:06 Dose: 50 mcg/hr, 10 mls/hr Propofol (Diprivan -) 1,000,000 mcg in 100 mls @ 2.381 mls/hr IVPB TITR [facility]; Protocol Last Admin: 10/09/19 06:06 Dose: 40 mcg/kg/min, 19.051 mls/hr Insulin Aspart (Novolog Vial Sliding Scale -) 0 vial SQ TIDAC [facility]; Protocol Latanoprost (Xalatan 0.005% Eye Drops -) 1 drop OD HS [facility] Last Admin: 10/09/19 01:39 Dose: 1 drop Metoprolol Tartrate (Lopressor Injection -) 5 mg IVPUSH Q4H PRN PRN Reason: HYPERTENSION Metoprolol Tartrate (Lopressor -) 25 mg PO BID [facility] Last Admin: 10/09/19 10:18 Dose: Not Given Timolol Maleate (Timoptic 0.5%) 1 drop OU BID [facility] Last Admin: 10/09/19 10:29 Dose: 1 drop GENERAL: Intubated and Sedated HEAD: Normal with no signs of trauma. EYES: Pupils equal, round and reactive to light, sclera anicteric, conjunctiva clear. EARS, NOSE, THROAT: Ears normal, nares patent, oropharynx clear without exudates. Moist mucous membranes. LUNGS: Mechanical Ventilation. No wheezes, and no crackles. No accessory muscle use. HEART: Irregular rate and rhythm, normal S1 and S2 without murmur ABDOMEN: Obese, Heavily bandaged with b/l EDMUNDO drains, bowel sounds sluggish UPPER EXTREMITIES: 2+ pulses, warm, well-perfused. No cyanosis. LOWER EXTREMITIES: 2+ dorsal pedal pulses, warm, well-perfused. No peripheral edema. NEUROLOGICAL: Sedated PSYCHIATRIC: Sedated SKIN: Warm, dry, normal turgor Laboratory Results - last 24 hr 10/08/19 10/09/19 10/09/19 18:05 05:51 06:25 WBC RBC Hgb Hct MCV MCH MCHC RDW Plt Count MPV Absolute Neuts (auto) Neutrophils % Lymphocytes % Monocytes % Eosinophils % Basophils % Nucleated RBC % Sodium 139 Potassium 4.4 Chloride 109 H Carbon Dioxide 24 Anion Gap 6 L BUN 17.1 Creatinine 0.8 Est GFR (CKD-EPI)AfAm 79.02 Est GFR (CKD-EPI)NonAf 68.18 POC Glucometer 124 122 Random Glucose 124 H Calcium 7.9 L Total Bilirubin 0.4 AST 25 ALT 65 H Alkaline Phosphatase 67 Total Protein 4.8 L Albumin 2.5 L 10/09/19 06:25 WBC 9.0 RBC 3.83 Hgb 10.8 Hct 32.9 MCV 86.0 MCH 28.1 MCHC 32.7 RDW 16.2 H Plt Count 192 MPV 9.1 D Absolute Neuts (auto) 7.5 Neutrophils % 82.9 H D Lymphocytes % 8.8 D Monocytes % 8.1 Eosinophils % 0.0 D Basophils % 0.2 Nucleated RBC % 0 Sodium Potassium Chloride Carbon Dioxide Anion Gap BUN Creatinine Est GFR (CKD-EPI)AfAm Est GFR (CKD-EPI)NonAf POC Glucometer Random Glucose Calcium Total Bilirubin AST ALT Alkaline Phosphatase Total Protein Albumin ASSESSMENT/PLAN: Acute Respiratory Failure due to Upper Airway Swelling Thyromegaly HTN HPL AFib on Eliquis HFpEF Hyperthyroidism Parkinson's Disease Asthma Colon CA (s/p hemicolectomy 02/2019) Mediastinal Lymphadenopathy Start Decadron VTE prophylaxis Sedate for vent synchrony Local wound care Lopressor IVF Normal transfusion thresholds Will leave intubated today until clear leak Glycemic control Requires continued ICU monitoring Dr Paez Critical care time spent in reviewing chart, evaluating patient and formulating plan - 36 minutes.
--- NOTE | 2019-10-09 15:47 | SURG ---
Surgery Triage Assistant Note Triage Assistant: Michele Burleson PA-C Date of Service: 10/09/19 Diagnosis: incisional hernia and small bowel injury Procedure: incisional hernia repair w/ Phasix mesh and small bowel resection. I was present for the entirety of the operative procedure. For further detail, please refer to operative report. Visit type - Case Type Case Type: Scheduled - Emergency Emergency Visit: No - New patient This patient is new to me today: No - Critical Care Critical Care patient: No
--- NOTE | 2019-10-09 16:15 | CONSULT ---
Consultation: REQUESTING PROVIDER: HEME/ONC Service CONSULT REQUEST: We have been asked to medically evaluate this patient for hx colon cancer HISTORY OF PRESENT ILLNESS: 84 yo F h/of Colon AdenoCa (s/p Hemicolectomy, 02/2019), HTN, HLD, Afib ( on Eliquis), Diastolic CHF, HLD, Hyperthyroidism who came to the hospital for incisional hernia repair. She developed the hernia following a complicated bowel resection and reanastemosis for colon CA. Per family, pt had a PET scan 3 weeks ago which was negative apart from sub-centimeter "spot" in the "lining of the stomach", which family states was not evident during her surgery. Pt follows with Dr. Hernandez. Pt could not give history as she was intubated and sedated. Hist taken from family at [facility] and records. REVIEW OF SYSTEMS: Unable to assess PHYSICAL EXAMINATION Vital Signs - 24 hr 10/08/19 10/08/19 10/08/19 16:41 16:45 17:00 Temperature 98.3 F Pulse Rate 72 83 85 Respiratory 18 16 16 Rate Blood Pressure 167/88 180/88 H 100/67 O2 Sat by Pulse 100 100 100 Oximetry (%) 10/08/19 10/08/19 10/08/19 17:15 17:30 17:45 Temperature Pulse Rate 90 86 81 Respiratory 17 14 11 Rate Blood Pressure 117/88 115/78 140/88 O2 Sat by Pulse 100 100 100 Oximetry (%) 10/08/19 10/08/19 10/08/19 18:00 18:15 18:30 Temperature Pulse Rate 85 83 92 H Respiratory 11 14 11 Rate Blood Pressure 150/88 139/90 160/88 O2 Sat by Pulse 100 100 100 Oximetry (%) 10/08/19 10/08/19 10/08/19 18:45 19:00 19:15 Temperature Pulse Rate 92 H 96 H 91 H Respiratory 10 12 10 Rate Blood Pressure 142/83 134/84 140/82 O2 Sat by Pulse 100 100 100 Oximetry (%) 10/08/19 10/08/19 10/08/19 19:30 19:45 20:00 Temperature Pulse Rate 97 H 88 92 H Respiratory 16 15 16 Rate Blood Pressure 146/84 110/67 127/77 O2 Sat by Pulse 100 100 100 Oximetry (%) 11/10/08/19 10/08/19 20:15 20:30 20:35 Temperature 98.4 F Pulse Rate 97 H 90 Respiratory 12 10 14 Rate Blood Pressure 116/77 126/78 O2 Sat by Pulse 100 100 99 Oximetry (%) 10/08/19 10/08/19 10/08/19 20:50 21:26 22:00 Temperature 98 F Pulse Rate 88 86 Respiratory 10 14 16 Rate Blood Pressure 110/68 107/60 O2 Sat by Pulse 100 Oximetry (%) 10/08/19 10/09/19 10/09/19 23:00 00:00 00:45 Temperature Pulse Rate 84 86 Respiratory 10 11 10 Rate Blood Pressure 99/56 L 96/52 L O2 Sat by Pulse Oximetry (%) 10/09/19 10/09/19 10/09/19 01:00 02:00 03:12 Temperature 97.8 F Pulse Rate 86 87 79 Respiratory 12 14 16 Rate Blood Pressure 99/59 L 95/58 L 87/56 L O2 Sat by Pulse Oximetry (%) 10/09/19 10/09/19 10/09/19 03:20 04:00 04:35 Temperature Pulse Rate 88 76 Respiratory 14 10 14 Rate Blood Pressure 100/79 101/65 O2 Sat by Pulse Oximetry (%) 10/09/19 10/09/19 10/09/19 05:00 06:00 08:00 Temperature 98.1 F Pulse Rate 81 76 75 Respiratory 10 10 25 H Rate Blood Pressure 100/57 L 95/57 L 89/58 L O2 Sat by Pulse Oximetry (%) 10/09/19 10/09/19 10/09/19 08:44 09:00 10:00 Temperature 98.6 F 98.1 F Pulse Rate 78 66 Respiratory 10 10 Rate Blood Pressure 121/79 190/93 H O2 Sat by Pulse 100 Oximetry (%) 10/09/19 10/09/19 10/09/19 12:00 12:27 14:00 Temperature 98.5 F Pulse Rate 101 H 104 H Respiratory 10 Rate Blood Pressure 124/90 102/63 O2 Sat by Pulse Oximetry (%) Gen: intubated sedated. Pt was able to follow commands. Denied being in any distress/pain/discomfort HEENT: NCAT Neck: no bruits appreciated, no jvd, ? thyromegally Cardio: irregular, normal s1s2, no mrg Pulm: vent sounds. otherwise, cta b/l Abd: large post-op bandages cdi, hypoactive bowel sounds Laboratory Results - last 24 hr 10/08/19 10/09/19 10/09/19 18:05 05:51 06:25 WBC RBC Hgb Hct MCV MCH MCHC RDW Plt Count MPV Absolute Neuts (auto) Neutrophils % Lymphocytes % Monocytes % Eosinophils % Basophils % Nucleated RBC % Sodium 139 Potassium 4.4 Chloride 109 H Carbon Dioxide 24 Anion Gap 6 L BUN 17.1 Creatinine 0.8 Est GFR (CKD-EPI)AfAm 79.02 Est GFR (CKD-EPI)NonAf 68.18 POC Glucometer 124 122 Random Glucose 124 H Calcium 7.9 L Total Bilirubin 0.4 AST 25 ALT 65 H Alkaline Phosphatase 67 Total Protein 4.8 L Albumin 2.5 L 10/09/19 10/09/19 06:25 11:51 WBC 9.0 RBC 3.83 Hgb 10.8 Hct 32.9 MCV 86.0 MCH 28.1 MCHC 32.7 RDW 16.2 H Plt Count 192 MPV 9.1 D Absolute Neuts (auto) 7.5 Neutrophils % 82.9 H D Lymphocytes % 8.8 D Monocytes % 8.1 Eosinophils % 0.0 D Basophils % 0.2 Nucleated RBC % 0 Sodium Potassium Chloride Carbon Dioxide Anion Gap BUN Creatinine Est GFR (CKD-EPI)AfAm Est GFR (CKD-EPI)NonAf POC Glucometer 96 Random Glucose Calcium Total Bilirubin AST ALT Alkaline Phosphatase Total Protein Albumin Active Medications Generic Name Dose Route Start Last Admin Trade Name Freq PRN Reason Stop Dose Admin Chlorhexidine Gluconate 15 ml 10/09/19 10:00 10/09/19 10:18 Peridex - MM 15 ml BID SRIKANTH Administration Dexamethasone Sodium Phosphate 10 mg 10/09/19 10:00 10/09/19 10:25 Decadron Injection - IVPUSH 10 mg Q8H-IV SRIKANTH Administration Fluticasone Propionate 1 spray 10/09/19 10:00 10/09/19 11:20 Flonase - NS Not Given DAILY SRIKANTH Heparin Sodium (Porcine) 5,000 unit 10/09/19 06:00 10/09/19 13:26 Heparin - SQ 5,000 unit TID SRIKANTH Administration Lactated Ringer's 1,000 mls @ 75 mls/hr 10/08/19 17:00 10/09/19 06:07 Lactated Ringers Solution IV 75 mls/hr ASDIR SRIKANTH Administration Fentanyl 500 mcg/ Dextrose 100 mls @ 10 mls/hr 10/08/19 21:15 10/09/19 06:06 IVPB 10/09/19 21:14 50 mcg/hr TITR SRIKANTH 10 mls/hr Administration 50 MCG/HR Propofol 1,000,000 mcg in 100 mls @ 2.381 mls/hr 10/08/19 21:15 10/09/19 06: 06 Diprivan - IVPB 40 mcg/kg/min TITR SRIKANTH 19.051 mls/hr Administration Protocol 5 MCG/KG/MIN Insulin Aspart 0 vial 10/09/19 07:00 Novolog Vial Sliding Scale - SQ TIDAC SRIKANTH Protocol Latanoprost 1 drop 10/08/19 22:00 10/09/19 01:39 Xalatan 0.005% Eye Drops - OD 1 drop HS SRIKANTH Administration Losartan Potassium 25 mg 10/10/19 10:00 Cozaar - GT DAILY SRIKANTH Metoprolol Tartrate 5 mg 10/08/19 17:38 Lopressor Injection - IVPUSH Q4H PRN HYPERTENSION Metoprolol Tartrate 25 mg 10/09/19 07:00 10/09/19 10:18 Lopressor - PO Not Given BID SRIKANTH Timolol Maleate 1 drop 10/08/19 22:00 10/09/19 10:29 Timoptic 0.5% OU 1 drop BID SRIKANTH Administration ASSESSMENT/PLAN: Pt is a 84 yo F h/of Colon AdenoCa (s/p Hemicolectomy, 02/2019), HTN, HLD, Afib ( on Eliquis), Diastolic CHF, HLD, Hyperthyroidism who came to the hospital for incisional hernia repair. Heme/Onc was consulted because of her history of colon CA and enlarged thyroid. Colon CA -per family, pt had a successful resection/anastomosis -Will obtain records regarding PET result from 3 weeks ago -can f/u Out Pt Thyromegally -known hyperthyroid -rec thyroid U/S Dispo: We will continue to follow the patient. Thank you for this consultative opportunity. Visit type - Emergency Visit Emergency Visit: No - New Patient This patient is new to me today: Yes Date on this admission: 10/09/19 - Critical Care Critical Care patient: No ATTENDING PHYSICIAN STATEMENT I saw and evaluated the patient. I reviewed the resident's note and discussed the case with the resident. I agree with the resident's findings and plan as documented. SUBJECTIVE: OBJECTIVE: ASSESSMENT AND PLAN:
[2019-10-09] MEDS: INSULIN SLIDING SCALE (NOVOLOG) 1 VIAL SQ SCH ×2 (18:41→18:42)
--- NOTE | 2019-10-09 23:34 | CON.CARD ---
Consult Consult Specialty:: Cardiology Referred by:: Dr. Bauer Reason for Consultation:: Cardiac evaluation - History of Present Illness Chief Complaint: Post op hernia repair and small bowel resection History of Present Illness: Patient is an 84 year old female well known to me with underlying history of parkinson's syndrome, cervical cancer s/p hysterectomy, salpingoopherectomy, PAF on DOAC, HTN, hyperthyroidism, DM, bronchial asthma, previous history of hemicolectomy for colon CA now presented for elective abdominal hernia repair which was complicated by small bowel resection and mesh placement. She is post op in ICU, currently mechanically ventilated. She is sedated. 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 Cardio/Vascular: Yes: AFIB, HTN Pulmonary: Yes: Asthma Gastrointestinal: Yes: Cancer (colon) Endocrine: Yes: Hyperthyroidism Additional Medical History: Glaucoma - Past Surgical History Past Surgical History: Yes: Colectomy, Hysterectomy - Alcohol/Substance Use Hx Alcohol Use: No History of Substance Use: reports: None - Smoking History Smoking history: Never smoked Have you smoked in the past 12 months: No Aproximately how many cigarettes per day: 0 - Social History ADL: Family Assistance History of Recent Travel: No Home Medications - Allergies Allergies/Adverse Reactions: Allergies Allergy/AdvReac Type Severity Reaction Status Date / Time No Known Allergies Allergy Verified 10/05/19 17:29 - Home Medications Home Medications: Ambulatory Orders Bimatoprost [Lumigan] 1 drop OU DAILY 04/09/17 Brimonidine Tartrate/Timolol [Combigan 0.2%-0.5% Eye Drops] 5 ml OU BID Latanoprost 0.005% Eye Drops [Xalatan 0.005% Eye Drops -] 1 drop HS 02/14/19 Methimazole 10 mg PO BID 02/14/19 Apixaban [Eliquis -] 5 mg PO BID tablet 03/02/19 Ascorbic Acid [Vitamin C -] 500 mg PO DAILY tablet 03/02/19 Losartan Potassium [Cozaar -] 25 mg PO DAILY tablet 03/02/19 Metoprolol Tartrate [Lopressor -] 50 mg PO BID tablet 03/02/19 Acetaminophen [Tylenol .Regular Strength -] 650 mg PO Q6H PRN tablet 03/16/19 Timolol 0.5% [Timoptic 0.5%] 1 drop OU BID drops 03/16/19 Nitroglycerin Sublingual [Nitrostat -] 0.4 mg SL Q5M PRN tab 03/20/19 Albuterol 0.083% Nebulizer Kathrin [Ventolin 0.083% Nebulizer Soln -] 1 amp NEB Q6H PRN amp 03/29/19 Meclizine HCl [Antivert -] 25 mg PO TID PRN 5 Days #15 tablet 05/11/19 Alendronate Sodium [Fosamax] 1 tab PO WEEKLY 10/08/19 Calcium (Oyster Shell) [Os-Dioni 500Mg -] 500 mg PO DAILY 10/08/19 Ertapenem Sodium [Invanz] 1 gm IJ DAILY 10/08/19 Fluticasone Prop 0.05% Nasal [Flonase -] 1 - 2 spray NS DAILY 10/08/19 Mirabegron [Myrbetriq] 50 mg PO DAILY 10/08/19 Review of Systems Unable to obtain ROS, reason: Not obtainable Vital Signs: Vital Signs Temperature 97.4 F L 10/09/19 18:00 Pulse Rate 89 10/09/19 20:06 Respiratory Rate 10 10/09/19 20:25 Blood Pressure 106/74 10/09/19 20:00 O2 Sat by Pulse Oximetry (%) 100 10/09/19 20:25 Respiratory: Yes: Mechanically Ventilated Gastrointestinal: Yes: Other (Post op) Cardiovascular: Yes: Pulse Irregular JVD: No PMI: Non-Displaced Heart Sounds: Yes: S1, S2 Edema: No - Other Data Labs, Other Data: CBC, BMP 10/09/19 06:25 10/09/19 06:25 Imaging - Results Chest X-ray: Report Reviewed (Large heart) Problem List - Problems (1) Afib Code(s): I48.91 - UNSPECIFIED ATRIAL FIBRILLATION Qualifiers: Atrial fibrillation type: chronic (2) Anemia Code(s): D64.9 - ANEMIA, UNSPECIFIED (3) Glaucoma Code(s): H40.9 - UNSPECIFIED GLAUCOMA (4) Hyperthyroidism Code(s): E05.90 - THYROTOXICOSIS, UNSP WITHOUT THYROTOXIC CRISIS OR STORM (5) New onset atrial fibrillation Code(s): I48.91 - UNSPECIFIED ATRIAL FIBRILLATION (6) S/P left hemicolectomy Code(s): Z90.49 - ACQUIRED ABSENCE OF OTHER SPECIFIED PARTS OF DIGESTIVE TRACT (7) Acute on chronic diastolic (congestive) heart failure Code(s): I50.33 - ACUTE ON CHRONIC DIASTOLIC (CONGESTIVE) HEART FAILURE (8) Asthma Code(s): J45.909 - UNSPECIFIED ASTHMA, UNCOMPLICATED Qualifiers: Asthma severity: mild Asthma persistence: intermittent Asthma complication type: unspecified Qualified Code(s): J45.20 - Mild intermittent asthma, uncomplicated (9) CAD (coronary artery disease) Code(s): I25.10 - ATHSCL HEART DISEASE OF [place] CORONARY ARTERY W/O ANG PCTRS Qualifiers: Coronary Disease-Associated Artery/Lesion type: [place] artery [place] vs. transplanted heart: [place] heart Associated angina: without angina Qualified Code(s): I25.10 - Atherosclerotic heart disease of [place] coronary artery without angina pectoris (10) HTN (hypertension) Code(s): I10 - ESSENTIAL (PRIMARY) HYPERTENSION Qualifiers: Hypertension type: essential hypertension Qualified Code(s): I10 - Essential (primary) hypertension (11) Parkinson disease Code(s): G20 - PARKINSON'S DISEASE Assessment/Plan 1. Post abdominal hernia repair complicated by small bowel resection 2. AF 3. HTN 4. Hyperthyroidism 5. DM 6. History of cervical CA s/p resection 7. History of colon CA s/p hemicolectomy PLAN: 1. Vent management per Critical care team 2. Post op care 3. IV Metoprolol 4. DVT prophylaxis Guarded Johann Cowan MD
[2019-10-10] MEDS: DEXAMETHASONE SOD PHOSPHATE 10 MG/1 ML VIAL IVPUSH SCH ×2 (02:30→11:56)
[2019-10-10] MEDS ORDERED: SODIUM CHLORIDE 0.9% 500 ML INFUS.BAG IV ONE (04:34)
[2019-10-10] MEDS ORDERED: LACTATED RINGERS SOLUTION 1000 ML INFUS.BAG IV ONE (04:37)
[2019-10-10] MEDS ORDERED: SODIUM CHLORIDE 1,000 ML IV STA (04:50)
[2019-10-10] MEDS: HEPARIN NA (PORCINE) 5,000 UNITS/ML 1ML VIAL SQ SCH (05:00)
[2019-10-10 07:10] LABS: HEMATOCRIT 32.8 % (32.4-45.2); HEMOGLOBIN 10.7 GM/dL (10.7-15.3); LYMPH % 5.7 % (8-40); MCH 28.1 pg (25.7-33.7); MCHC 32.5 g/dl (32.0-36.0); MEAN CELL VOLUME 86.5 fl (80-96); MEAN PLT VOLUME 8.4 fl (7.5-11.1); MONO % 2.4 % (3.8-10.2); NEUT % 91.9 % (42.8-82.8); PLATELET COUNT 196 K/MM3 (134-434); RDW 16.5 % (11.6-15.6); WHITE BLOOD COUNT 9.8 K/mm3 (4.0-10.0)
[2019-10-10] MEDS: LACTATED RINGERS SOLUTION 1,000 ML IV SCH ×3 (07:19→18:08)
[2019-10-10] MEDS: INSULIN SLIDING SCALE (NOVOLOG) 1 VIAL SQ SCH ×3 (07:22→16:58)
[2019-10-10 07:48] LABS: ALBUMIN 2.4 g/dl (3.4-5.0); BILIRUBIN,TOTAL 0.3 mg/dL (0.2-1); BLOOD UREA NITROGEN 19.5 mg/dL (7-18); CALCIUM 7.8 mg/dL (8.5-10.1); POTASSIUM 4.5 mmol/L (3.5-5.1); TOT PROT 4.8 g/dl (6.4-8.2)
--- NOTE | 2019-10-10 08:47 | PN ---
Progress Note (short form) - Note Progress Note: SURGERY 84yo F s/p ventral hernia repair with bowel injury and small bowel resection POD 2. Pt seen and examined in ICU. Pt continues to be intubated, with plans to try to extubate later today. Pt vitals are stable. NGT in place on low continuous suction. Pt currently sedated, but grimaces to palpation of her abd. Vital Signs Temp 97.8 F 10/10/19 06:00 Pulse 65 10/10/19 06:00 Resp 10 10/10/19 06:00 BP 111/66 10/10/19 06:00 Pulse Ox 100 10/09/19 20:25 Intake & Output 10/09/19 10/09/19 10/10/19 11:59 23:59 11:59 Intake Total 1641 1245 2346 Output Total 330 360 495 Balance 6060 071 2403 Weight 179 lb 3.773 oz 186 lb 15.232 oz Intake: IV 1641 1195 2096 DIPRIVAN - 1,000,000 mcg 216 86 In 100 ml @ 5 MCG/KG/MIN 2.381 mls/hr IVPB TITR SRIKANTH Rx#:[id number] Lactated Ringers Solution 900 1,000 ml @ 100 mls/hr IV ASDIR SRIKANTH Rx#: [id number] Lactated Ringers Solution 825 850 1,000 ml @ 75 mls/hr IV ASDIR SRIKANTH Rx#:[id number] Lactated Ringers Solution 250 250 250 ml @ 250 mls/hr IV ONCE ONE Rx#:[id number] Normal Saline - 1,000 ml 1000 @ 1000 mls/hr IV ASDIR STA Rx#:[id number] Normal Saline - 250 ml @ 250 250 mls/hr IV ASDIR STA Rx#:[id number] Sublimaze Injection - 500 100 95 110 Mcg In D5w - 90 ml @ 50 MCG/HR 10 mls/hr IVPB TITR SRIKANTH Rx#:[id number] IVPB 50 250 Oral 0 Output: Gastric Drainage 0 150 Drainage 130 60 45 Left Abdomen 50 50 25 Right Abdomen 80 10 20 Urine 200 300 300 Berry 200 300 300 Other: Voiding Method Indwelling Catheter Indwelling Catheter Bowel Movement No No No Weight Measurement Method [facility]: Gen: a&O X3 Resp: breathing comfortably Abd: soft, nondistended, mild diffuse tenderness, dressing intact, dry, no erythema Problem List - Problems (1) S/P repair of ventral hernia Assessment/Plan: Plan -abd appears good, continue care as per ICU/medicine -extubate as per ICU -once awake and stable will assess for bowel function, but continue NGT at low continuous suction for now -DVT ppx Code(s): Z98.890 - OTHER SPECIFIED POSTPROCEDURAL STATES; Z87.19 - PERSONAL HISTORY OF OTHER DISEASES OF THE DIGESTIVE SYSTEM
--- NOTE | 2019-10-10 08:56 | PN ---
Physical Exam: SUBJECTIVE: Patient seen and examined by the bedside. Intubated, sedation turned off for extubation trial. She is responsive and follows commands. Overnight she was found to be hypotensive with low urine output, and was given 1250cc LR. OBJECTIVE: Vital Signs Period Temp Pulse Resp BP Sys/Ugarte Pulse Ox Last 24 Hr 97.4 F-98.6 F 62-104 10-24 83-190/52-93 99-100 GENERAL: Intubated, responsive to verbal commands. HEAD: Normal with no signs of trauma EYES: [place] NECK: Diffuse swelling LUNGS: Transmitted breath sounds B/L, no crackles or wheezes HEART: Irregular rate and rhythm, no murmur ABDOMEN: Soft, non tender, dressing with B/L EDMUNDO drains LOWER EXTREMITIES: 2+ dorsal pedal pulses, warm, well-perfused. No peripheral edema. NEUROLOGICAL: Motor 3/5, sensations intact SKIN: Warm, dry, normal turgor CBC, BMP 10/10/19 06:15 10/10/19 06:15 Current Medications Albuterol/Ipratropium (Duoneb -) 1 amp NEB Q6H PRN PRN Reason: SHORTNESS OF BREATH Last Admin: 10/10/19 15:25 Dose: 1 amp Apixaban (Eliquis -) 5 mg PO BID [facility] Last Admin: 10/10/19 16:15 Dose: 5 mg Chlorhexidine Gluconate (Peridex -) 15 ml MM BID [facility] Last Admin: 10/10/19 11:55 Dose: Not Given Fluticasone Propionate (Flonase -) 1 spray NS DAILY [facility] Last Admin: 10/10/19 11:59 Dose: 1 spray Propofol (Diprivan -) 1,000,000 mcg in 100 mls @ 2.381 mls/hr IVPB TITR SRIKANTH; Protocol Last Titration: 10/10/19 10:49 Dose: 0 mcg/kg/min, 0 mls/hr Lactated Ringer's (Lactated Ringers Solution) 1,000 mls @ 100 mls/hr IV ASDIR [facility] Last Admin: 10/10/19 08:56 Dose: 100 mls/hr Insulin Aspart (Novolog Vial Sliding Scale -) 1 vial SQ TIDAC [facility]; Protocol Last Admin: 10/10/19 16:58 Dose: Not Given Latanoprost (Xalatan 0.005% Eye Drops -) 1 drop OD HS [facility] Last Admin: 10/09/19 21:24 Dose: 1 drop Losartan Potassium (Cozaar -) 25 mg GT DAILY [facility] Last Admin: 10/10/19 16:45 Dose: Not Given Metoprolol Tartrate (Lopressor Injection -) 5 mg IVPUSH Q4H PRN PRN Reason: HYPERTENSION Metoprolol Tartrate (Lopressor -) 25 mg PO BID [facility] Last Admin: 10/10/19 16:45 Dose: Not Given Morphine Sulfate (Morphine Sulfate) 2 mg IVPUSH Q4H PRN PRN Reason: PAIN LEVEL 7 - 10 Timolol Maleate (Timoptic 0.5%) 1 drop OU BID [facility] Last Admin: 10/10/19 12:00 Dose: 1 drop ASSESSMENT/PLAN: 84F with PMH of HTN, HLD, Afib(on Eliquis), HFpEF, Hyperthyroidism, Parkinson's Disease, Asthma and Colon CA (s/p hemicolectomy 02/2019) presents after complicated ambulatory inguinal hernia repair surgery, POD 2 #Neurology - S/p extubation, will monitor for changes in mental status #GI - POD#2 of inguinal hernia repair with enterotomy and mesh placement - NG Tube in place #Cardiovascular - Lopressor 5mg IVP PRN for Afib greater than 120, f/u with surgery for resuming Eliquis - Hx of HTN, home meds Lopressor and Losartan held as per surgery #Pulmonary - Extubated today - CXR: No infiltrates - D/C Decadron 10mg Q8H, was started to reduce airway inflammation, patient now extubated and breathing on Venti - Hx. of Asthma will monitor for signs of exacerbation #Heme/Onc - Consult placed due to history of Colon CA (last PET done 3 weeks ago). - F/U outpatient with Dr. Walton #Endo - Novolog SS - Hold PO Methimazole as Pt. is NPO s/p enterotomy, (Methimazole can be crushed after discussion with Pharmacy), no IV equivalents in hospital. #Renal - Monitor I/Os #FEN - LR @ 100 - Ca 7.8, Albumin 2.4, Ca corrected for Albumin 9.08 - NPO #DVT Ppx. - SCDs - Eliquis 25mg GT instead of heparin, as per surgery #Dispo - S/p extubation, will monitor. May be transferred tomorrow Visit type - Emergency Visit Emergency Visit: No - New Patient This patient is new to me today: Yes Date on this admission: 10/13/19 - Critical Care Critical Care patient: Yes Total Critical Care Time (in minutes): 39 Critical Care Statement: The care of this patient involved high complexity decision making to prevent further life threatening deterioration of the patient 's condition and/or to evaluate & treat vital organ system(s) failure or risk of failure. ATTENDING PHYSICIAN STATEMENT I saw and evaluated the patient. I reviewed the resident's note and discussed the case with the resident. I agree with the resident's findings and plan as documented. SUBJECTIVE: OBJECTIVE: ASSESSMENT AND PLAN:
[2019-10-10] MEDS: PROPOFOL 1,000,000 MCG/100 ML VIAL IVPB SCH ×2 (09:15→23:42)
--- NOTE | 2019-10-10 09:21 | PN ---
Progress Note, Physician History of Present Illness: Sedated and intubated, hemodynamics stable with rate-controlled afib. - Current Medication List Current Medications: Active Medications Chlorhexidine Gluconate (Peridex -) 15 ml MM BID [facility] Last Admin: 10/09/19 21:23 Dose: 15 ml Dexamethasone Sodium Phosphate (Decadron Injection -) 10 mg IVPUSH Q8H-IV [facility] Last Admin: 10/10/19 02:30 Dose: 10 mg Fluticasone Propionate (Flonase -) 1 spray NS DAILY [facility] Last Admin: 10/09/19 11:20 Dose: Not Given Heparin Sodium (Porcine) (Heparin -) 5,000 unit SQ TID [facility] Last Admin: 10/10/19 05:00 Dose: 5,000 unit Propofol (Diprivan -) 1,000,000 mcg in 100 mls @ 2.381 mls/hr IVPB TITR [facility]; Protocol Last Admin: 10/10/19 09:15 Dose: 10 mcg/kg/min, 4.763 mls/hr Lactated Ringer's (Lactated Ringers Solution) 1,000 mls @ 100 mls/hr IV ASDIR [facility] Last Admin: 10/10/19 08:56 Dose: 100 mls/hr Insulin Aspart (Novolog Vial Sliding Scale -) 1 vial SQ TIDAC [facility]; Protocol Last Admin: 10/10/19 07:22 Dose: Not Given Latanoprost (Xalatan 0.005% Eye Drops -) 1 drop OD HS [facility] Last Admin: 10/09/19 21:24 Dose: 1 drop Losartan Potassium (Cozaar -) 25 mg GT DAILY [facility] Metoprolol Tartrate (Lopressor Injection -) 5 mg IVPUSH Q4H PRN PRN Reason: HYPERTENSION Metoprolol Tartrate (Lopressor -) 25 mg PO BID [facility] Last Admin: 10/09/19 21:23 Dose: Not Given Timolol Maleate (Timoptic 0.5%) 1 drop OU BID [facility] Last Admin: 10/09/19 21:24 Dose: 1 drop - Objective Vital Signs: Vital Signs Temperature 97.8 F 10/10/19 06:00 Pulse Rate 62 10/10/19 08:00 Respiratory Rate 15 10/10/19 08:38 Blood Pressure 103/68 10/10/19 08:00 O2 Sat by Pulse Oximetry (%) 100 10/09/19 20:25 Constitutional: Yes: No Distress, Calm Cardiovascular: Yes: Pulse Irregular Respiratory: Yes: Intubated, Mechanically Ventilated Gastrointestinal: Yes: Soft, Hypoactive Bowel Sounds Edema: No Labs: CBC, BMP 10/10/19 06:15 10/10/19 06:15 - ....Imaging EKG: Report Reviewed (Tele: Rate-controlled afib) Assessment/Plan Problem List - Problems (1) Afib Code(s): I48.91 - UNSPECIFIED ATRIAL FIBRILLATION Qualifiers: Atrial fibrillation type: chronic (2) Anemia Code(s): D64.9 - ANEMIA, UNSPECIFIED (3) Glaucoma Code(s): H40.9 - UNSPECIFIED GLAUCOMA (4) Hyperthyroidism Code(s): E05.90 - THYROTOXICOSIS, UNSP WITHOUT THYROTOXIC CRISIS OR STORM (5) New onset atrial fibrillation Code(s): I48.91 - UNSPECIFIED ATRIAL FIBRILLATION (6) S/P left hemicolectomy Code(s): Z90.49 - ACQUIRED ABSENCE OF OTHER SPECIFIED PARTS OF DIGESTIVE TRACT (7) Acute on chronic diastolic (congestive) heart failure Code(s): I50.33 - ACUTE ON CHRONIC DIASTOLIC (CONGESTIVE) HEART FAILURE (8) Asthma Code(s): J45.909 - UNSPECIFIED ASTHMA, UNCOMPLICATED Qualifiers: Asthma severity: mild Asthma persistence: intermittent Asthma complication type: unspecified Qualified Code(s): J45.20 - Mild intermittent asthma, uncomplicated (9) CAD (coronary artery disease) Code(s): I25.10 - ATHSCL HEART DISEASE OF [place] CORONARY ARTERY W/O ANG PCTRS Qualifiers: Coronary Disease-Associated Artery/Lesion type: [place] artery [place] vs. transplanted heart: [place] heart Associated angina: without angina Qualified Code(s): I25.10 - Atherosclerotic heart disease of [place] coronary artery without angina pectoris (10) HTN (hypertension) Code(s): I10 - ESSENTIAL (PRIMARY) HYPERTENSION Qualifiers: Hypertension type: essential hypertension Qualified Code(s): I10 - Essential (primary) hypertension (11) Parkinson disease Code(s): G20 - PARKINSON'S DISEASE Assessment/Plan 1. Post abdominal hernia repair complicated by small bowel resection and mesh placement 2. AF 3. HTN 4. Hyperthyroidism 5. DM 6. History of cervical CA s/p resection 7. History of colon CA s/p hemicolectomy PLAN: 1. Vent management per Critical care team, wean sedation 2. Post op care 3. IV Metoprolol, transition to oral Lopressor 25 bid, losartan 25 qd, resume methimazole 10 bid 4. DVT prophylaxis, may start Eliquis [address] of sq heparin per surgery
--- NOTE | 2019-10-10 09:44 | PN ---
Progress Note, Physician Chief Complaint: d.w surgery dr elias OK to start po/NGT eliquis today (DC sq heparin) d/w ICU vent weaning trial - if tolerates it to be extubated dw pt's family at bedside - Current Medication List Current Medications: Active Medications Apixaban (Eliquis -) 5 mg PO BID [facility] Chlorhexidine Gluconate (Peridex -) 15 ml MM BID [facility] Last Admin: 10/09/19 21:23 Dose: 15 ml Dexamethasone Sodium Phosphate (Decadron Injection -) 10 mg IVPUSH Q8H-IV [facility] Last Admin: 10/10/19 02:30 Dose: 10 mg Fluticasone Propionate (Flonase -) 1 spray NS DAILY [facility] Last Admin: 10/09/19 11:20 Dose: Not Given Heparin Sodium (Porcine) (Heparin -) 5,000 unit SQ TID [facility] Last Admin: 10/10/19 05:00 Dose: 5,000 unit Propofol (Diprivan -) 1,000,000 mcg in 100 mls @ 2.381 mls/hr IVPB TITR [facility]; Protocol Last Admin: 10/10/19 09:15 Dose: 10 mcg/kg/min, 4.763 mls/hr Lactated Ringer's (Lactated Ringers Solution) 1,000 mls @ 100 mls/hr IV ASDIR [facility] Last Admin: 10/10/19 08:56 Dose: 100 mls/hr Insulin Aspart (Novolog Vial Sliding Scale -) 1 vial SQ TIDAC [facility]; Protocol Last Admin: 10/10/19 07:22 Dose: Not Given Latanoprost (Xalatan 0.005% Eye Drops -) 1 drop OD HS [facility] Last Admin: 10/09/19 21:24 Dose: 1 drop Losartan Potassium (Cozaar -) 25 mg GT DAILY [facility] Metoprolol Tartrate (Lopressor Injection -) 5 mg IVPUSH Q4H PRN PRN Reason: HYPERTENSION Metoprolol Tartrate (Lopressor -) 25 mg PO BID [facility] Last Admin: 10/09/19 21:23 Dose: Not Given Timolol Maleate (Timoptic 0.5%) 1 drop OU BID [facility] Last Admin: 10/09/19 21:24 Dose: 1 drop - Objective Vital Signs: Vital Signs Temperature 97.8 F 10/10/19 06:00 Pulse Rate 62 10/10/19 08:00 Respiratory Rate 15 10/10/19 08:38 Blood Pressure 103/68 10/10/19 08:00 O2 Sat by Pulse Oximetry (%) 100 10/09/19 20:25 Constitutional: Yes: No Distress Eyes: Yes: Conjunctiva Clear HENT: Yes: Atraumatic Neck: Yes: Supple Cardiovascular: No: Regular Rate and Rhythm Respiratory: Yes: Diminished Gastrointestinal: Yes: Soft. No: Tenderness Genitourinary: No: Hematuria Musculoskeletal: No: Joint Stiffness, Joint Swelling Extremities: No: Cold, Cool Edema: No Integumentary: No: Rash, Venous Stasis Changes Neurological: Yes: Alert Psychiatric: Yes: Alert. No: Agitated Labs: CBC, BMP 10/10/19 06:15 10/10/19 06:15 - ....Imaging Other: Report Reviewed Assessment/Plan 83 yo F h/of Colon Ca (s/p Hemicolectomy, 02/2019), HTN, HLD, Afib ( on Eliquis) , Diastolic CHF, HLD, Hyperthyroidism s/p open complicated elective incisional hernia repair, adhesions, s/p incidental enterotomy and partial small bowel resection / reanastomosis and mesh placement, difficult airway access, airway swelling, remained intubated postop for airway protection admitted go ICU mec vent per anesthesia and pulmonary ICU; weaning trial per pulmonary and anesthesia; iv steroids for airway swelling per ICU IVF; cont meds; restart eliquis OK d/w surgery dr Espinoza cardiology f/u; BP control; DVT PFX, decubs, aspiration PFX; f/u labs; I/O Graham; prognosis guarded d.w staff d/w pts' daughter t time 40 min
[2019-10-10] MEDS ORDERED: LOSARTAN POTASSIUM 25 MG TABLET GT SCH (10:00)
[2019-10-10 10:23] LABS: ANISOCYTOSIS 1+; MACROCYTOSIS 0; PLATELET ESTIMATE NORMAL
[2019-10-10] MEDS: CHLORHEXIDINE GLUCONATE 0.12% 15ML CUP MM SCH ×2 (11:55→23:44)
[2019-10-10] MEDS: FLUTICASONE PROP 0.05% 16 GM NASAL SPRAY NS SCH (11:59)
[2019-10-10] MEDS: TIMOLOL 0.5% OPHTHALMIC SOL 5 ML BOTTLE OU SCH ×2 (12:00→23:44)
--- NOTE | 2019-10-10 12:40 | PN ---
Teaching Attending Note Name of Resident: Aj Chaudhary ATTENDING PHYSICIAN STATEMENT I saw and evaluated the patient. I reviewed the resident's note and discussed the case with the resident. I agree with the resident's findings and plan as documented. SUBJECTIVE: Pt seen and examined in the ICU. Intubated, awake off sedation. Some aeration when cuff deflated. Tolerated CPAP/PS and subsequently extubated during rounds. OBJECTIVE: Vital Signs Period Temp Pulse Resp BP Sys/Ugarte Pulse Ox Last 24 Hr 97.4 F-98.5 F 62-104 10-25 83-117/52-90 99-100 Intake & Output 10/07/19 10/08/19 10/09/19 10/10/19 23:59 23:59 23:59 23:59 Intake Total 1999 2886 2346 Output Total 1250 252 495 Balance 750 2196 1851 Weight 81.3 kg 81.3 kg 84.8 kg Gen: extubated Neck: no stridor Heart: RRR Lung: decreased breath sounds at the bases Abd: soft, nontender, serosanguinous fluid Ext: no edema CBC, BMP 10/10/19 06:15 10/10/19 06:15 Active Medications Apixaban (Eliquis -) 5 mg PO BID [facility] Chlorhexidine Gluconate (Peridex -) 15 ml MM BID [facility] Last Admin: 10/10/19 11:55 Dose: Not Given Fluticasone Propionate (Flonase -) 1 spray NS DAILY [facility] Last Admin: 10/10/19 11:59 Dose: 1 spray Propofol (Diprivan -) 1,000,000 mcg in 100 mls @ 2.381 mls/hr IVPB TITR [facility]; Protocol Last Titration: 10/10/19 10:49 Dose: 0 mcg/kg/min, 0 mls/hr Lactated Ringer's (Lactated Ringers Solution) 1,000 mls @ 100 mls/hr IV ASDIR [facility] Last Admin: 10/10/19 08:56 Dose: 100 mls/hr Insulin Aspart (Novolog Vial Sliding Scale -) 1 vial SQ TIDAC [facility]; Protocol Last Admin: 10/10/19 07:22 Dose: Not Given Latanoprost (Xalatan 0.005% Eye Drops -) 1 drop OD HS [facility] Last Admin: 10/09/19 21:24 Dose: 1 drop Losartan Potassium (Cozaar -) 25 mg GT DAILY [facility] Metoprolol Tartrate (Lopressor Injection -) 5 mg IVPUSH Q4H PRN PRN Reason: HYPERTENSION Metoprolol Tartrate (Lopressor -) 25 mg PO BID [facility] Last Admin: 10/09/19 21:23 Dose: Not Given Timolol Maleate (Timoptic 0.5%) 1 drop OU BID [facility] Last Admin: 10/10/19 12:00 Dose: 1 drop ASSESSMENT AND PLAN: s/p Incisional Hernia Repair with mesh/SB resection s/p Acute Respiratory Failure Atrial Fibrillation HTN DM Hyperthyroidism h/o Colon Ca h/o Cervical Ca - pt extubated - can d/c steroids - pain control - incentive spirometry - rate control - continue anticoagulation - PO per surgery - can monitor on floor
[2019-10-10] MEDS: ALBUTEROL SO4 2.5/IPRATROPIUM 0.5 INH SOL 3 ML VIAL.NEB. NEB PRN ×2 (15:25→18:31)
--- NOTE | 2019-10-10 15:59 | PN ---
Teaching Attending Note Name of Resident: Aravind Higuera (solo) ATTENDING PHYSICIAN STATEMENT I saw and evaluated the patient. I reviewed the resident's note and discussed the case with the resident. I agree with the resident's findings and plan as documented. 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 Post op intubated/ now extubated Last Vital Signs Temp Pulse Resp BP Pulse Ox 98.4 F 99 H 16 154/85 100 10/10/19 14:00 10/10/19 14:00 10/10/19 14:00 10/10/19 14:00 10/10/19 11:54 HEENT: [place], EOM Intact Cor: RSR, No murmurs, No gallops Lungs: diminished breath sounds bilaterally Abd:- dressing intact Ext:No significant edema, SCD Skin: No rashes, Integument intact CBC, BMP 10/10/19 06:15 10/10/19 06:15 Current Medications Generic Name Dose Route Start Last Admin Trade Name Freq PRN Reason Stop Dose Admin Albuterol/Ipratropium 1 amp 10/10/19 13:44 Duoneb - NEB Q6H PRN SHORTNESS OF BREATH Apixaban 5 mg 10/10/19 10:00 Eliquis - PO BID [facility] Chlorhexidine Gluconate 15 ml 10/09/19 10:00 10/10/19 11:55 Peridex - MM Not Given BID [facility] Fluticasone Propionate 1 spray 10/09/19 10:00 10/10/19 11:59 Flonase - NS 1 spray DAILY [facility] Administration Propofol 1,000,000 mcg in 100 mls @ 2.381 mls/hr 10/08/19 21:15 10/10/19 10: 49 Diprivan - IVPB 0 mcg/kg/min TITR [facility] 0 mls/hr Titration Protocol 5 MCG/KG/MIN Lactated Ringer's 1,000 mls @ 100 mls/hr 10/10/19 06:08 10/10/19 08:56 Lactated Ringers Solution IV 100 mls/hr ASDIR [facility] Administration Insulin Aspart 1 vial 10/10/19 07:00 10/10/19 12:49 Novolog Vial Sliding Scale - SQ Not Given TIDAC [facility] Protocol Latanoprost 1 drop 10/08/19 22:00 10/09/19 21:24 Xalatan 0.005% Eye Drops - OD 1 drop HS [facility] Administration Losartan Potassium 25 mg 10/10/19 10:00 Cozaar - GT DAILY [facility] Metoprolol Tartrate 5 mg 10/08/19 17:38 Lopressor Injection - IVPUSH Q4H PRN HYPERTENSION Metoprolol Tartrate 25 mg 10/09/19 07:00 10/09/19 21:23 Lopressor - PO Not Given BID [facility] Morphine Sulfate 2 mg 10/10/19 13:04 Morphine Sulfate IVPUSH Q4H PRN PAIN LEVEL 7 - 10 Timolol Maleate 1 drop 10/08/19 22:00 10/10/19 12:00 Timoptic 0.5% OU 1 drop BID [facility] Administration Impression: Incisional hernia surgery repair /mesh Partial small bowel resection/ peritoneal biopsies History of Stage II colon ca - Abnormal PET Await biopsy results- F/U with Dr. Lyle as outpatient. OBJECTIVE: ASSESSMENT AND PLAN:
[2019-10-10] MEDS: APIXABAN 5 MG TABLET PO SCH ×2 (16:15→23:42)
[2019-10-10] MEDS: METOPROLOL TARTRATE 50 MG TABLET (FP) PO SCH (16:45)
[2019-10-10] MEDS: MORPHINE SULFATE 2 MG/ML VIAL IVPUSH PRN ×2 (18:20→23:00)
[2019-10-10] MEDS ORDERED: methylPREDNISolone NA SUCC 40 MG/1 ML VIAL IVPB ONE (18:53)
[2019-10-10] MEDS ORDERED: ALBUTEROL SO4 2.5/IPRATROPIUM 0.5 INH SOL 3 ML VIAL.NEB. NEB ONE ×2 (18:55→20:49)
[2019-10-10] MEDS ORDERED: methylPREDNISolone NA SUCC 125 MG/2 ML VIAL ONE ×3 (18:57→23:56)
[2019-10-10] MEDS: METOPROLOL TARTRATE 5 MG/5 ML VIAL IVPUSH PRN (20:30)
[2019-10-10] MEDS ORDERED: ACETAMINOPHEN 1000 MG/100 ML VIAL (NON FORMULARY) IVPB ONE (20:30)
[2019-10-10] MEDS ORDERED: FUROSEMIDE 40 MG/4 ML INJECTABLE VIAL ONE ×2 (20:35→23:50)
[2019-10-10] MEDS ORDERED: FUROSEMIDE 40 MG/4 ML INJECTABLE VIAL IVPUSH ONE (20:49)
[2019-10-10] MEDS: LATANOPROST 0.005% OPHTH SOLN 2.5ML BOTTLE OD SCH (23:43)
[2019-10-11] MEDS ORDERED: methylPREDNISolone NA SUCC 40 MG/1 ML VIAL IVPUSH ONE (00:03)
[2019-10-11] MEDS ORDERED: MAGNESIUM SULF 50% (8.12 MEQ/2 ML-1 GM VIAL) IVPB ONE (00:03)
[2019-10-11] MEDS ORDERED: MAGNESIUM SULF 50% (8.12 MEQ/2 ML-1 GM VIAL) ONE (00:08)
--- NOTE | 2019-10-11 00:31 | PN ---
Progress Note (short form) - Note Progress Note: Patient noted to have increasing stridor and wheezes on exam. Patient given duonebs and solumedrol with limited improvement. Magnesium added as well. Respiratory called and bipap attempted however patient unable to tolerate. Anesthesia alerted who evaluated patient status for possible intubation. Family notified of status change. Patient exam improved upon non-rebreather and glide- scope at bedside. Will monitor closely for respiratory status changes with plan to intubate if needed for airway protection.
--- NOTE | 2019-10-11 00:34 | PN ---
Progress Note (short form) - Note Progress Note: Anesthesiology Called to evaluate pt. re. stridor/tachypnea. Pt. had been extubated approximately 14 hours earlier but had woken up just now with stridor and increased WOB. When I arrived, she had just been placed on BiPAP but seemed very agitated by this and quickly removed the mask herself. She was then placed back on a NRB mask and is now tolerating this well; RR and HR have slowed down. On exam lungs sounded mostly clear and equal but she did have some upper airway noise. At present, she appears more calm and comfortable, family is at the bedside. D/W ICU residents to keep her on facemask and just observe closely for now; continue with medical management. Airway equipment available at bedside.
[2019-10-11] MEDS ORDERED: ALBUTEROL SO4 2.5/IPRATROPIUM 0.5 INH SOL 3 ML VIAL.NEB. NEB ONE (05:03)
[2019-10-11] MEDS: MORPHINE SULFATE 2 MG/ML VIAL IVPUSH PRN ×3 (05:09→18:26)
[2019-10-11] MEDS ORDERED: ACETAMINOPHEN 1000 MG/100 ML VIAL (NON FORMULARY) IVPB ONE (06:44)
[2019-10-11 07:06] LABS: BASO % 0.1 % (0-2.0); HEMATOCRIT 35.7 % (32.4-45.2); HEMOGLOBIN 11.5 GM/dL (10.7-15.3); LYMPH % 2.7 % (8-40); MCH 27.9 pg (25.7-33.7); MCHC 32.1 g/dl (32.0-36.0); MEAN CELL VOLUME 86.9 fl (80-96); MEAN PLT VOLUME 8.1 fl (7.5-11.1); MONO % 2.5 % (3.8-10.2); NEUT % 94.7 % (42.8-82.8); PLATELET COUNT 255 K/MM3 (134-434); RBC 4.11 M/mm3 (3.60-5.2); RDW 16.8 % (11.6-15.6); WHITE BLOOD COUNT 12.4 K/mm3 (4.0-10.0)
[2019-10-11 07:14] LABS: BLOOD UREA NITROGEN 22.2 mg/dL (7-18); CALCIUM 8.4 mg/dL (8.5-10.1); MAGNESIUM 2.6 mg/dL (1.8-2.4); PHOSPHOROUS 2.2 mg/dL (2.5-4.9); POTASSIUM 4.5 mmol/L (3.5-5.1)
[2019-10-11] MEDS: INSULIN SLIDING SCALE (NOVOLOG) 1 VIAL SQ SCH ×3 (07:28→16:56)
[2019-10-11 07:53] LABS: BILIRUBIN,TOTAL 0.3 mg/dL (0.2-1)
[2019-10-11] MEDS: ALBUTEROL SO4 2.5/IPRATROPIUM 0.5 INH SOL 3 ML VIAL.NEB. NEB PRN ×4 (08:00→19:47)
--- NOTE | 2019-10-11 08:01 | PN ---
Progress Note (short form) - Note Progress Note: POD 3, s/p incisional hernia repair w/ Phasix mesh and small bowel resection. Pt seen and examined. Pt with stridor/tachypnea overnight, consideration made for re-intubation however pt tolerated NRB mask and showed some improvement. This AM, daughter at bedside. Pt denies any cp, abdo pain. No flatus. C/O discomfort with NGT. Breathing continues to be an issue. Vital Signs Temp 98.2 F 10/11/19 06:00 Pulse 92 H 10/11/19 06:00 Resp 18 10/11/19 06:00 BP 152/76 10/11/19 06:00 Pulse Ox 100 10/10/19 23:30 Intake & Output 10/10/19 10/10/19 10/11/19 11:59 23:59 11:59 Intake Total 2346 1172 700 Output Total 820 927 3580 Balance 1851 187 -3200 Weight 186 lb 15.232 oz 186 lb Intake: IV 2096 1172 500 DIPRIVAN - 1,000,000 mcg 86 In 100 ml @ 5 MCG/KG/MIN 2.381 mls/hr IVPB TITR [facility] Rx#:[id number] Lactated Ringers Solution 900 1172 500 1,000 ml @ 100 mls/hr IV ASDIR [facility] Rx#: [id number] Normal Saline - 1,000 ml 1000 @ 1000 mls/hr IV ASDIR [facility] Rx#:[id number] Sublimaze Injection - 500 110 Mcg In D5w - 90 ml @ 50 MCG/HR 10 mls/hr IVPB TITR [facility] Rx#:[id number] IVPB 250 200 Output: Gastric Drainage 150 125 100 Drainage 45 60 Left Abdomen 25 40 Right Abdomen 20 20 Urine 253 557 1745 Leos 273 188 5795 Other: Voiding Method Indwelling Catheter Indwelling Catheter Bowel Movement No No No Height 5 ft Body Mass Index (BMI) 36.3 Weight Measurement Method Built in [facility] CBC, BMP 10/11/19 06:12 10/11/19 06:12 Gen: awake, alert, using accessory muscles on NRB at 15L O2. ENT: NGT in place and functioning on LCWS Abdo soft, nt/nd, incision c/d/i with lucius in place, no erythema or drainage. Dressing changed. JPs in place with scant serosanguinous drainage in reservoir. Tubing stripped. A/P: 84 y/o F w/ PMHx Parkinson's syndrome, cervical cancer s/p hysterectomy/b/ l salpingoophrectomy, afib on eliquis, HTN, Hyperthyroidism, recurrent UTI s/p Left colectomy with splenic flexure takedown in January of this past year after presenting to [facility] with anemia found to have colon mass, now POD 3, s/p incisional hernia repair w/ Phasix mesh and small bowel resection. +Stridor/tachypnea overnight, re-intubation on hold for trial of NRB and nebulizers Afebrile Received Lasix overnight, leos output 1700ml Kvng output not documented overnight NGT ?300ml brownish drainage in reservoir this AM (overnight total?) Jps output R 60ml, L 40ml -Respiratory therapy stat this AM, RN informed pt would likely benefit from more nebulizers -Keep jps in place, monitor and record output -Fluids/diuresis per medicine -Keep dressing c/d/i -Monitor I&Os -VS per protocol -DVT prophylaxis with Heparin 5000units SQ, b/l scds, hold Eliquis for now d/w attending Dr Alvarado
[2019-10-11] MEDS: METOPROLOL TARTRATE 5 MG/5 ML VIAL IVPUSH PRN (08:03)
[2019-10-11] MEDS ORDERED: HEPARIN NA (PORCINE) 5,000 UNITS/ML 1ML VIAL IVPUSH PRN ×2 (08:15)
[2019-10-11] MEDS ORDERED: HEPARIN INFUSION - 25,000 UNITS/500 ML INFUS.BAG IVPB SCH (08:30)
[2019-10-11 08:31] LABS: ARTERIAL BLD GAS O2 SATURATION 98.8 % (95-98); ARTERIAL BLOOD GAS BASE EXCESS 1.3 meq/l (-2-2); ARTERIAL BLOOD GAS PCO2 45.5 mmHg (35-45); ARTERIAL BLOOD GAS PO2 133 mmHg (80-100); ARTERIAL BLOOD GAS pH 7.38 (7.35-7.45)
[2019-10-11 08:40] LABS: ALLENS TEST POSITIVE
[2019-10-11 09:09] LABS: ANISOCYTOSIS 0; MACROCYTOSIS 0; PLATELET ESTIMATE NORMAL; ROULEAU 1+
--- NOTE | 2019-10-11 09:40 | PN ---
Progress Note, Physician Chief Complaint: awake alert extubated; off steroids; pt switched to IV heparin per ICU team (did not receive eliquis) stable but tenuous - Current Medication List Current Medications: Active Medications Albuterol/Ipratropium (Duoneb -) 1 amp NEB Q6H PRN PRN Reason: SHORTNESS OF BREATH Last Admin: 10/10/19 18:31 Dose: 1 amp Chlorhexidine Gluconate (Peridex -) 15 ml MM BID [facility] Last Admin: 10/10/19 23:44 Dose: Not Given Fluticasone Propionate (Flonase -) 1 spray NS DAILY [facility] Last Admin: 10/10/19 11:59 Dose: 1 spray Heparin Sodium (Porcine) (Heparin -) 1,000 unit IVPUSH PRN PRN PRN Reason: Heparin Heparin Sodium (Porcine) (Heparin -) 5,000 unit IVPUSH PRN PRN PRN Reason: Heparin Propofol (Diprivan -) 1,000,000 mcg in 100 mls @ 2.381 mls/hr IVPB TITR [facility]; Protocol Last Admin: 10/10/19 23:42 Dose: Not Given Lactated Ringer's (Lactated Ringers Solution) 1,000 mls @ 42 mls/hr IV ASDIR [facility] Heparin Sodium/Dextrose (Heparin Infusion -) 25,000 units in 500 mls @ 20 mls/ hr IVPB TITR [facility]; Protocol Last Admin: 10/11/19 08:33 Dose: 1,000 units/hr, 20 mls/hr Insulin Aspart (Novolog Vial Sliding Scale -) 1 vial SQ TIDAC [facility]; Protocol Last Admin: 10/11/19 07:28 Dose: Not Given Latanoprost (Xalatan 0.005% Eye Drops -) 1 drop OD HS [facility] Last Admin: 10/10/19 23:43 Dose: 1 drop Losartan Potassium (Cozaar -) 25 mg GT DAILY [facility] Last Admin: 10/10/19 16:45 Dose: Not Given Metoprolol Tartrate (Lopressor Injection -) 5 mg IVPUSH Q4H PRN PRN Reason: HYPERTENSION Last Admin: 10/11/19 08:03 Dose: 5 mg Metoprolol Tartrate (Lopressor -) 25 mg PO BID [facility] Last Admin: 10/10/19 16:45 Dose: Not Given Morphine Sulfate (Morphine Sulfate) 2 mg IVPUSH Q4H PRN PRN Reason: PAIN LEVEL 7 - 10 Last Admin: 10/11/19 05:09 Dose: 2 mg Timolol Maleate (Timoptic 0.5%) 1 drop OU BID [facility] Last Admin: 10/10/19 23:44 Dose: 1 drop - Objective Vital Signs: Vital Signs Temperature 98.2 F 10/11/19 06:00 Pulse Rate 103 H 10/11/19 08:03 Respiratory Rate 18 10/11/19 06:00 Blood Pressure 121/81 10/11/19 08:03 O2 Sat by Pulse Oximetry (%) 100 10/10/19 23:30 Constitutional: Yes: No Distress Eyes: Yes: Conjunctiva Clear HENT: Yes: Atraumatic Neck: Yes: Supple Cardiovascular: No: Regular Rate and Rhythm Respiratory: Yes: Diminished Gastrointestinal: Yes: Soft, Other (s/p surgery no bleed decreased bowel sounds) . No: Tenderness Genitourinary: Yes: Graham Present. No: Hematuria Musculoskeletal: No: Joint Stiffness, Joint Swelling Extremities: No: Cold, Cool Edema: No Integumentary: No: Rash, Venous Stasis Changes Neurological: Yes: Alert ...Motor Strength: WNL Psychiatric: Yes: Alert. No: Agitated Labs: CBC, BMP 10/11/19 06:12 10/11/19 06:12 - ....Imaging Other: Report Reviewed Assessment/Plan 83 yo F h/of Colon Ca (s/p Hemicolectomy, 02/2019), HTN, HLD, Afib ( on Eliquis) , Diastolic CHF, HLD, Hyperthyroidism s/p open complicated elective incisional hernia repair, adhesions, s/p incidental enterotomy and partial small bowel resection / reanastomosis and mesh placement, difficult airway access, airway swelling, intubated postop for airway protection admitted go ICU extibated per pulmonary and anesthesia; s/p 24h iv steroids for airway swelling per ICU IVF; cont meds; iv heparin PTT checks cardiology f/u; BP control; DVT PFX, decubs, aspiration PFX; f/u labs; I/O Graham; prognosis guarded d.w staff d/w pts' daughter t time 40 min
--- NOTE | 2019-10-11 09:59 | PN ---
Progress Note, Physician History of Present Illness: Extubated yesterday, increased WOB and stridor earlier placed on NRB and nebs with relief, hemodynamics stable with rate-controlled afib. Not taking oral intake yet. - Current Medication List Current Medications: Active Medications Albuterol/Ipratropium (Duoneb -) 1 amp NEB Q6H PRN PRN Reason: SHORTNESS OF BREATH Last Admin: 10/11/19 08:00 Dose: 1 amp Chlorhexidine Gluconate (Peridex -) 15 ml MM BID [facility] Last Admin: 10/10/19 23:44 Dose: Not Given Fluticasone Propionate (Flonase -) 1 spray NS DAILY [facility] Last Admin: 10/10/19 11:59 Dose: 1 spray Heparin Sodium (Porcine) (Heparin -) 1,000 unit IVPUSH PRN PRN PRN Reason: Heparin Heparin Sodium (Porcine) (Heparin -) 5,000 unit IVPUSH PRN PRN PRN Reason: Heparin Propofol (Diprivan -) 1,000,000 mcg in 100 mls @ 2.381 mls/hr IVPB TITR [facility]; Protocol Last Admin: 10/10/19 23:42 Dose: Not Given Lactated Ringer's (Lactated Ringers Solution) 1,000 mls @ 42 mls/hr IV ASDIR [facility] Heparin Sodium/Dextrose (Heparin Infusion -) 25,000 units in 500 mls @ 20 mls/ hr IVPB TITR [facility]; Protocol Last Admin: 10/11/19 08:33 Dose: 1,000 units/hr, 20 mls/hr Insulin Aspart (Novolog Vial Sliding Scale -) 1 vial SQ TIDAC [facility]; Protocol Last Admin: 10/11/19 07:28 Dose: Not Given Latanoprost (Xalatan 0.005% Eye Drops -) 1 drop OD HS [facility] Last Admin: 10/10/19 23:43 Dose: 1 drop Losartan Potassium (Cozaar -) 25 mg GT DAILY [facility] Last Admin: 10/10/19 16:45 Dose: Not Given Metoprolol Tartrate (Lopressor Injection -) 5 mg IVPUSH Q4H PRN PRN Reason: HYPERTENSION Last Admin: 10/11/19 08:03 Dose: 5 mg Metoprolol Tartrate (Lopressor -) 25 mg PO BID [facility] Last Admin: 10/10/19 16:45 Dose: Not Given Morphine Sulfate (Morphine Sulfate) 2 mg IVPUSH Q4H PRN PRN Reason: PAIN LEVEL 7 - 10 Last Admin: 10/11/19 05:09 Dose: 2 mg Timolol Maleate (Timoptic 0.5%) 1 drop OU BID [facility] Last Admin: 10/10/19 23:44 Dose: 1 drop - Objective Vital Signs: Vital Signs Temperature 98.2 F 10/11/19 06:00 Pulse Rate 103 H 10/11/19 08:03 Respiratory Rate 18 10/11/19 06:00 Blood Pressure 121/81 10/11/19 08:03 O2 Sat by Pulse Oximetry (%) 100 10/10/19 23:30 Constitutional: Yes: No Distress, Calm Neck: Yes: Supple Cardiovascular: Yes: Pulse Irregular Respiratory: Yes: Regular, Diminished, On Venti-Mask Gastrointestinal: Yes: Soft, Hypoactive Bowel Sounds Edema: No Labs: CBC, BMP 10/11/19 06:12 10/11/19 06:12 - ....Imaging Chest X-ray: Report Reviewed (Right pleural fluid) EKG: Report Reviewed (Tele: Rate-controlled afib) Assessment/Plan Problem List - Problems (1) Afib Code(s): I48.91 - UNSPECIFIED ATRIAL FIBRILLATION Qualifiers: Atrial fibrillation type: chronic (2) Anemia Code(s): D64.9 - ANEMIA, UNSPECIFIED (3) Glaucoma Code(s): H40.9 - UNSPECIFIED GLAUCOMA (4) Hyperthyroidism Code(s): E05.90 - THYROTOXICOSIS, UNSP WITHOUT THYROTOXIC CRISIS OR STORM (5) New onset atrial fibrillation Code(s): I48.91 - UNSPECIFIED ATRIAL FIBRILLATION (6) S/P left hemicolectomy Code(s): Z90.49 - ACQUIRED ABSENCE OF OTHER SPECIFIED PARTS OF DIGESTIVE TRACT (7) Acute on chronic diastolic (congestive) heart failure Code(s): I50.33 - ACUTE ON CHRONIC DIASTOLIC (CONGESTIVE) HEART FAILURE (8) Asthma Code(s): J45.909 - UNSPECIFIED ASTHMA, UNCOMPLICATED Qualifiers: Asthma severity: mild Asthma persistence: intermittent Asthma complication type: unspecified Qualified Code(s): J45.20 - Mild intermittent asthma, uncomplicated (9) CAD (coronary artery disease) Code(s): I25.10 - ATHSCL HEART DISEASE OF [place] CORONARY ARTERY W/O ANG PCTRS Qualifiers: Coronary Disease-Associated Artery/Lesion type: redding artery [place] vs. transplanted heart: redding heart Associated angina: without angina Qualified Code(s): I25.10 - Atherosclerotic heart disease of [place] coronary artery without angina pectoris (10) HTN (hypertension) Code(s): I10 - ESSENTIAL (PRIMARY) HYPERTENSION Qualifiers: Hypertension type: essential hypertension Qualified Code(s): I10 - Essential (primary) hypertension (11) Parkinson disease Code(s): G20 - PARKINSON'S DISEASE Assessment/Plan 1. Post abdominal hernia repair complicated by small bowel resection and mesh placement 2. AF 3. HTN 4. Hyperthyroidism 5. DM 6. History of cervical CA s/p resection 7. History of colon CA s/p hemicolectomy PLAN: 1. BD, O2 to maintain saO2>90% 2. Post op care, await bowel function recovery 3. IV Metoprolol, transition to oral Lopressor 25 bid, losartan 25 qd, methimazole 10 bid once able 4. On heparin gtt, may start Eliquis 5 bid once oral intake re-established
[2019-10-11] MEDS: FLUTICASONE PROP 0.05% 16 GM NASAL SPRAY NS SCH (10:18)
[2019-10-11] MEDS: TIMOLOL 0.5% OPHTHALMIC SOL 5 ML BOTTLE OU SCH ×2 (10:32→23:59)
[2019-10-11] MEDS ORDERED: dilTIAZem HCL 50 MG/10 ML - 10 ML VIAL IVPUSH PRN (10:54)
[2019-10-11] MEDS: CHLORHEXIDINE GLUCONATE 0.12% 15ML CUP MM SCH (11:27)
--- NOTE | 2019-10-11 12:18 | PN ---
Teaching Attending Note Name of Resident: Ru Hill ATTENDING PHYSICIAN STATEMENT I saw and evaluated the patient. I reviewed the resident's note and discussed the case with the resident. I agree with the resident's findings and plan as documented. SUBJECTIVE: Patent seen and examined in the ICU. Remains extubated. Events from overnight noted. There was a concern for Stridor. None noted this AM. OBJECTIVE: Intake & Output 10/08/19 10/09/19 10/10/19 10/11/19 23:59 23:59 23:59 23:59 Intake Total 1999 2886 3518 700 Output Total 1128 892 5311 3900 Balance 750 2196 2038 -3200 Weight 179 lb 3.773 oz 179 lb 3.773 oz 186 lb Last Vital Signs Temp Pulse Resp BP Pulse Ox 98.4 F 94 H 16 161/76 100 10/11/19 10:00 10/11/19 10:00 10/11/19 10:00 10/11/19 10:00 10/10/19 23:30 Active Medications Albuterol/Ipratropium (Duoneb -) 1 amp NEB Q6H PRN PRN Reason: SHORTNESS OF BREATH Last Admin: 10/11/19 12:02 Dose: 1 amp Diltiazem HCl (Cardizem Injection -) 10 mg IVPUSH Q4H PRN PRN Reason: TACHYCARDIA Fluticasone Propionate (Flonase -) 1 spray NS DAILY SRIKANTH Last Admin: 10/11/19 10:18 Dose: 1 spray Heparin Sodium (Porcine) (Heparin -) 1,000 unit IVPUSH PRN PRN PRN Reason: Heparin Heparin Sodium (Porcine) (Heparin -) 5,000 unit IVPUSH PRN PRN PRN Reason: Heparin Lactated Ringer's (Lactated Ringers Solution) 1,000 mls @ 42 mls/hr IV ASDIR SRIKANTH Heparin Sodium/Dextrose (Heparin Infusion -) 25,000 units in 500 mls @ 20 mls/ hr IVPB TITR SRIKANTH; Protocol Last Admin: 10/11/19 08:33 Dose: 1,000 units/hr, 20 mls/hr Insulin Aspart (Novolog Vial Sliding Scale -) 1 vial SQ TIDAC [facility]; Protocol Last Admin: 10/11/19 11:19 Dose: Not Given Latanoprost (Xalatan 0.005% Eye Drops -) 1 drop OD HS [facility] Last Admin: 10/10/19 23:43 Dose: 1 drop Losartan Potassium (Cozaar -) 25 mg GT DAILY [facility] Last Admin: 10/10/19 16:45 Dose: Not Given Metoprolol Tartrate (Lopressor -) 25 mg PO BID [facility] Last Admin: 10/10/19 16:45 Dose: Not Given Morphine Sulfate (Morphine Sulfate) 2 mg IVPUSH Q4H PRN PRN Reason: PAIN LEVEL 7 - 10 Last Admin: 10/11/19 05:09 Dose: 2 mg Timolol Maleate (Timoptic 0.5%) 1 drop OU BID [facility] Last Admin: 10/11/19 10:32 Dose: 1 drop Gen: Awake, extubated Neck: No stridor Heart: RRR Lung: decreased breath sounds at the bases Abd: soft, nontender, (+)BS, serosanguinous fluid in EDMUNDO Ext: no edema Laboratory Results - last 24 hr 10/10/19 10/10/19 10/11/19 12:46 16:54 06:12 WBC 12.4 H RBC 4.11 Hgb 11.5 Hct 35.7 MCV 86.9 MCH 27.9 MCHC 32.1 RDW 16.8 H Plt Count 255 D MPV 8.1 Absolute Neuts (auto) 11.7 H Neutrophils % 94.7 H Neutrophils % (Manual) 99.0 H Band Neutrophils % 0.0 Lymphocytes % 2.7 L D Lymphocytes % (Manual) 1.0 L D Monocytes % 2.5 L Monocytes % (Manual) 0 L D Eosinophils % 0.0 Eosinophils % (Manual) 0.0 Basophils % 0.1 D Basophils % (Manual) 0.0 Myelocytes % (Man) 0 Promyelocytes % (Man) 0 Blast Cells % (Manual) 0 Nucleated RBC % 0 Metamyelocytes 0 Hypochromia 0 Platelet Estimate Normal Polychromasia 0 Poikilocytosis 1+ Anisocytosis 0 Microcytosis 0 Macrocytosis 0 Rouleaux 1+ Schistocytes 1+ Anticoagulation Therapy Puncture Site ABG pH ABG pCO2 at Pt Temp ABG pO2 at Pt Temp ABG HCO3 ABG O2 Sat (Measured) ABG O2 Content ABG Base Excess Alfonzo Test O2 Delivery Device Oxygen Flow Rate Vent Mode Vent Rate Mechanical Rate Pressure Support Vent Sodium Potassium Chloride Carbon Dioxide Anion Gap BUN Creatinine Est GFR (CKD-EPI)AfAm Est GFR (CKD-EPI)NonAf POC Glucometer 105 122 Random Glucose Calcium Phosphorus Magnesium Total Bilirubin AST ALT Alkaline Phosphatase Total Protein Albumin 10/11/19 10/11/19 10/11/19 06:12 07:27 08:05 WBC RBC Hgb Hct MCV MCH MCHC RDW Plt Count MPV Absolute Neuts (auto) Neutrophils % Neutrophils % (Manual) Band Neutrophils % Lymphocytes % Lymphocytes % (Manual) Monocytes % Monocytes % (Manual) Eosinophils % Eosinophils % (Manual) Basophils % Basophils % (Manual) Myelocytes % (Man) Promyelocytes % (Man) Blast Cells % (Manual) Nucleated RBC % Metamyelocytes Hypochromia Platelet Estimate Polychromasia Poikilocytosis Anisocytosis Microcytosis Macrocytosis Rouleaux Schistocytes Anticoagulation Therapy No Result Required. Puncture Site Left radial ABG pH 7.38 ABG pCO2 at Pt Temp 45.5 H ABG pO2 at Pt Temp 133 H ABG HCO3 26.2 ABG O2 Sat (Measured) 98.8 H ABG O2 Content 16.5 ABG Base Excess 1.3 Alfonzo Test Positive O2 Delivery Device No Result Required. Oxygen Flow Rate Yes Vent Mode No Result Required. Vent Rate No Result Required. Mechanical Rate No Result Required. Pressure Support Vent No Result Required. Sodium 141 Potassium 4.5 Chloride 105 Carbon Dioxide 30 Anion Gap 6 L BUN 22.2 H Creatinine 1.0 Est GFR (CKD-EPI)AfAm 60.33 Est GFR (CKD-EPI)NonAf 52.06 POC Glucometer 141 Random Glucose 145 H Calcium 8.4 L Phosphorus 2.2 L Magnesium 2.6 H Total Bilirubin 0.3 AST 15 ALT 50 Alkaline Phosphatase 77 Total Protein 6.0 L Albumin 3.0 L 10/11/19 11:14 WBC RBC Hgb Hct MCV MCH MCHC RDW Plt Count MPV Absolute Neuts (auto) Neutrophils % Neutrophils % (Manual) Band Neutrophils % Lymphocytes % Lymphocytes % (Manual) Monocytes % Monocytes % (Manual) Eosinophils % Eosinophils % (Manual) Basophils % Basophils % (Manual) Myelocytes % (Man) Promyelocytes % (Man) Blast Cells % (Manual) Nucleated RBC % Metamyelocytes Hypochromia Platelet Estimate Polychromasia Poikilocytosis Anisocytosis Microcytosis Macrocytosis Rouleaux Schistocytes Anticoagulation Therapy Puncture Site ABG pH ABG pCO2 at Pt Temp ABG pO2 at Pt Temp ABG HCO3 ABG O2 Sat (Measured) ABG O2 Content ABG Base Excess Alfonzo Test O2 Delivery Device Oxygen Flow Rate Vent Mode Vent Rate Mechanical Rate Pressure Support Vent Sodium Potassium Chloride Carbon Dioxide Anion Gap BUN Creatinine Est GFR (CKD-EPI)AfAm Est GFR (CKD-EPI)NonAf POC Glucometer 139 Random Glucose Calcium Phosphorus Magnesium Total Bilirubin AST ALT Alkaline Phosphatase Total Protein Albumin ASSESSMENT AND PLAN: s/p Incisional Hernia Repair with mesh/SB resection s/p Acute Respiratory Failure Atrial Fibrillation HTN DM Hyperthyroidism h/o Colon Ca h/o Cervical Ca - BD TX - Monitor off systemic steroids - pain control - Incentive spirometry - rate control with CCB - IV Heparin - PO per surgery - ICU monitoring for overall tenuous Dr Paez
--- NOTE | 2019-10-11 15:43 | PN ---
Progress Note (short form) - Note Progress Note: ID CONSULT DICTATED ? HCAP RLL POST OP INCISIONAL HERNIA REPAIR LEUKOCYTOSIS S/P HEMICOLECTOMY OBTAIN C/S EMPIRIC ZOSYN
[2019-10-11] MEDS ORDERED: PIPERACILLIN/TAZOBACTAM 3.375 GM VIAL IVPB ONE ×2 (15:44→17:31)
[2019-10-11] MEDS ORDERED: DEXTROSE 5%-WATER - 50 ML IVPB ONE ×2 (15:44→17:32)
--- NOTE | 2019-10-11 15:45 | PN ---
Physical Exam: SUBJECTIVE: Patient seen and examined on bedside ICU rounds. Overnight, patient experienced respiratory distress, stridor noted, patient anxious at the time. Received duonebs, 60-60 methylprednisone, Mg, racemic epinephrine. Anesthesiology called to bedside, patient with symptom resolution before intubation attempted. Received lopressor 2x for tachycardia / BP up to 180s SBP. This AM, additional respiratory distress, no stridor, more lung / upper chest sounds, responded entirely to duonebs. Also ordered for additional lopressor to good effect. Received Lasix 40 x 2 overnight. ABG ordered. Patient without CP / SOB / Dizziness. Passing flatus. OBJECTIVE: Vital Signs Period Temp Pulse Resp BP Sys/Ugarte Pulse Ox Last 24 Hr 98.2 F-98.8 F 75-137 11-40 117-180/55-135 95-100 GENERAL: The patient is awake, alert, and fully oriented, in no acute distress. HEENT: Normal with no signs of trauma. PERRL, extraocular movements intact, sclera anicteric, conjunctiva clear. No ptosis. Ears normal, nares patent, oropharynx clear without exudates, moist mucous membranes. Trachea midline, full range of motion, supple. LUNGS: Breath sounds equal - course breath sounds upper chest, no stridor evident, no wheezes, no crackles, no accessory muscle use. HEART: Regular rate and rhythm, S1, S2 without murmur, rub or gallop. ABDOMEN: Soft, nontender, nondistended, binder in place c/d/i, normoactive bowel sounds, no guarding, no rebound, no masses. EXTREMITIES: 2+ pulses, warm, well-perfused, no edema. NEUROLOGICAL: Cranial nerves II through XII grossly intact. Gait not observed. SKIN: Warm, dry, normal turgor, no rashes or lesions noted Laboratory Results - last 24 hr 10/10/19 10/11/19 10/11/19 16:54 06:12 06:12 WBC 12.4 H RBC 4.11 Hgb 11.5 Hct 35.7 MCV 86.9 MCH 27.9 MCHC 32.1 RDW 16.8 H Plt Count 255 D MPV 8.1 Absolute Neuts (auto) 11.7 H Neutrophils % 94.7 H Neutrophils % (Manual) 99.0 H Band Neutrophils % 0.0 Lymphocytes % 2.7 L D Lymphocytes % (Manual) 1.0 L D Monocytes % 2.5 L Monocytes % (Manual) 0 L D Eosinophils % 0.0 Eosinophils % (Manual) 0.0 Basophils % 0.1 D Basophils % (Manual) 0.0 Myelocytes % (Man) 0 Promyelocytes % (Man) 0 Blast Cells % (Manual) 0 Nucleated RBC % 0 Metamyelocytes 0 Hypochromia 0 Platelet Estimate Normal Polychromasia 0 Poikilocytosis 1+ Anisocytosis 0 Microcytosis 0 Macrocytosis 0 Rouleaux 1+ Schistocytes 1+ Anticoagulation Therapy Puncture Site ABG pH ABG pCO2 at Pt Temp ABG pO2 at Pt Temp ABG HCO3 ABG O2 Sat (Measured) ABG O2 Content ABG Base Excess Alfonzo Test O2 Delivery Device Oxygen Flow Rate Vent Mode Vent Rate Mechanical Rate Pressure Support Vent Sodium 141 Potassium 4.5 Chloride 105 Carbon Dioxide 30 Anion Gap 6 L BUN 22.2 H Creatinine 1.0 Est GFR (CKD-EPI)AfAm 60.33 Est GFR (CKD-EPI)NonAf 52.06 POC Glucometer 122 Random Glucose 145 H Calcium 8.4 L Phosphorus 2.2 L Magnesium 2.6 H Total Bilirubin 0.3 AST 15 ALT 50 Alkaline Phosphatase 77 Total Protein 6.0 L Albumin 3.0 L 10/11/19 10/11/19 10/11/19 07:27 08:05 11:14 WBC RBC Hgb Hct MCV MCH MCHC RDW Plt Count MPV Absolute Neuts (auto) Neutrophils % Neutrophils % (Manual) Band Neutrophils % Lymphocytes % Lymphocytes % (Manual) Monocytes % Monocytes % (Manual) Eosinophils % Eosinophils % (Manual) Basophils % Basophils % (Manual) Myelocytes % (Man) Promyelocytes % (Man) Blast Cells % (Manual) Nucleated RBC % Metamyelocytes Hypochromia Platelet Estimate Polychromasia Poikilocytosis Anisocytosis Microcytosis Macrocytosis Rouleaux Schistocytes Anticoagulation Therapy No Result Required. Puncture Site Left radial ABG pH 7.38 ABG pCO2 at Pt Temp 45.5 H ABG pO2 at Pt Temp 133 H ABG HCO3 26.2 ABG O2 Sat (Measured) 98.8 H ABG O2 Content 16.5 ABG Base Excess 1.3 Alfonzo Test Positive O2 Delivery Device No Result Required. Oxygen Flow Rate Yes Vent Mode No Result Required. Vent Rate No Result Required. Mechanical Rate No Result Required. Pressure Support Vent No Result Required. Sodium Potassium Chloride Carbon Dioxide Anion Gap BUN Creatinine Est GFR (CKD-EPI)AfAm Est GFR (CKD-EPI)NonAf POC Glucometer 141 139 Random Glucose Calcium Phosphorus Magnesium Total Bilirubin AST ALT Alkaline Phosphatase Total Protein Albumin Active Medications Generic Name Dose Route Start Last Admin Trade Name Freq PRN Reason Stop Dose Admin Albuterol/Ipratropium 1 amp 10/11/19 15:32 Duoneb - NEB Q4H PRN SHORTNESS OF BREATH Diltiazem HCl 10 mg 10/11/19 10:54 Cardizem Injection - IVPUSH Q4H PRN TACHYCARDIA Fluticasone Propionate 1 spray 10/09/19 10:00 10/11/19 10:18 Flonase - NS 1 spray DAILY SRIKANTH Administration Heparin Sodium (Porcine) 1,000 unit 10/11/19 08:15 Heparin - IVPUSH PRN PRN Heparin Heparin Sodium (Porcine) 5,000 unit 10/11/19 08:15 Heparin - IVPUSH PRN PRN Heparin Lactated Ringer's 1,000 mls @ 42 mls/hr 10/11/19 08:12 Lactated Ringers Solution IV ASDIR SRIKANTH Heparin Sodium/Dextrose 25,000 units in 500 mls @ 20 mls/hr 10/11/19 08:30 08:33 Heparin Infusion - IVPB 1,000 units/hr TITR SRIKANTH 20 mls/hr Administration Protocol 1,000 UNITS/HR Piperacillin Sod/Tazobactam 50 mls @ 100 mls/hr 10/12/19 10:00 Sod 3.375 gm/ Dextrose IVPB Q8H-IV SRIKANTH Protocol Piperacillin Sod/Tazobactam 50 mls @ 100 mls/hr 10/11/19 15:15 Sod 3.375 gm/ Dextrose IVPB 10/12/19 02:29 Q8H-IV SRIKANTH Protocol Insulin Aspart 1 vial 10/10/19 07:00 10/11/19 11:19 Novolog Vial Sliding Scale - SQ Not Given TIDAC SRIKANTH Protocol Latanoprost 1 drop 10/08/19 22:00 10/10/19 23:43 Xalatan 0.005% Eye Drops - OD 1 drop HS SRIKANTH Administration Losartan Potassium 25 mg 10/10/19 10:00 10/10/19 16:45 Cozaar - GT Not Given DAILY [facility] Metoprolol Tartrate 25 mg 10/09/19 07:00 10/10/19 16:45 Lopressor - PO Not Given BID SRIKANTH Morphine Sulfate 2 mg 10/10/19 13:04 10/11/19 12:58 Morphine Sulfate IVPUSH 2 mg Q4H PRN Administration PAIN LEVEL 7 - 10 Timolol Maleate 1 drop 10/08/19 22:00 10/11/19 10:32 Timoptic 0.5% OU 1 drop BID SRIKANTH Administration ASSESSMENT/PLAN: 84F with PMH of HTN, HLD, Afib(on Eliquis), HFpEF, Hyperthyroidism, Parkinson's Disease, Asthma and Colon CA (s/p hemicolectomy 02/2019) presents after complicated ambulatory inguinal hernia repair surgery, POD 2, s/p extubation , course complicated by respiratory distress overnight and this AM, rapid resolution with appropriate medication, standing orders placed. Will watch overnight, likely transfer to floor tomorrow. #Neurology - S/p extubation, will monitor for changes in mental status #GI - POD#2 of inguinal hernia repair with enterotomy and mesh placement - NG Tube in place #Cardiovascular - Discontinue Lopressor 5mg IVP PRN for Afib greater than 120, f/u with surgery for resuming Eliquis - Start cardizem 10mg q4hr PRN - Hx of HTN, home meds Lopressor and Losartan held as per surgery #Pulmonary - Extubated 10/10, patient with distress x2, responded well to breathing treatments - Standing duonebs, Albuterol PRN - CXR: No infiltrates - D/C Decadron 10mg Q8H, was started to reduce airway inflammation, patient now extubated and breathing on Venti - Hx. of Asthma will monitor for signs of exacerbation #Heme/Onc - Consult placed due to history of Colon CA (last PET done 3 weeks ago). - F/U outpatient with Dr. Walton #Endo - Novolog SS - Hold PO Methimazole as Pt. is NPO s/p enterotomy, (Methimazole can be crushed after discussion with Pharmacy), no IV equivalents in hospital. #Renal - Monitor I/Os #FEN - LR @ 100 - Ca 7.8, Albumin 2.4, Ca corrected for Albumin 9.08 - NPO #DVT PPX - SCDs - Eliquis 25mg GT instead of heparin, as per surgery #Dispo - S/p extubation, will monitor. Will continue to monitor overnight, may be transferred tomorrow Visit type - Emergency Visit Emergency Visit: Yes ED Registration Date: 10/08/19 Care time: The patient presented to the Emergency Department on the above date and was hospitalized for further evaluation of their emergent condition. - New Patient This patient is new to me today: Yes Date on this admission: 10/11/19 - Critical Care Critical Care patient: Yes Total Critical Care Time (in minutes): 36 Critical Care Statement: The care of this patient involved high complexity decision making to prevent further life threatening deterioration of the patient 's condition and/or to evaluate & treat vital organ system(s) failure or risk of failure. ATTENDING PHYSICIAN STATEMENT I saw and evaluated the patient. I reviewed the resident's note and discussed the case with the resident. I agree with the resident's findings and plan as documented. SUBJECTIVE: OBJECTIVE: ASSESSMENT AND PLAN:
[2019-10-11] MEDS: PIPERACILLIN/TAZOB 3.375 GM 3.375 GM in DEXTROSE 5%-WATER - 50 ML IVPB SCH ×2 (15:47→18:31)
--- NOTE | 2019-10-11 16:08 | CONS ---
INFECTIOUS DISEASE CONSULTATION DATE OF CONSULTATION: DATE OF DICTATION: 10/11/2019 HISTORY: The patient is an 84-year-old female who was evaluated for leukocytosis and pneumonia. History was obtained from the chart as well as the patient's daughter, who was present at the time of the examination. The patient is an 84-year-old female who has a history of adenocarcinoma of the colon. She underwent a hemicolectomy in February 2019. Her postoperative course was complicated by wound infection requiring debridement, IV antibiotic therapy, and a wound VAC. She was ultimately discharged to a retirement facility where she received wound care. She was discharged home. She now returns for an elective repair of an incisional hernia with mesh. The patient underwent the procedure on October 08, 2019. Her postoperative course was complicated by respiratory failure and prolonged intubation. She was ultimately extubated. Chest x-ray now shows increased markings at the right base consistent with atelectasis, effusion, and possible infiltrate. At the present time, she is awake and alert. She offers no complaints. She is slightly short of breath at rest on nasal cannula. She is noted to have cough. Review of previous cultures show mixed organisms from the abdominal wound including alpha-hemolytic Streptococcus and Bacteroides. She has had a history of ESBL in the urine in 2017. PAST MEDICAL HISTORY: Positive for hypertension, hyperlipidemia, atrial fibrillation, congestive heart failure, hyperthyroidism, parkinsonism, colon cancer. PAST SURGICAL HISTORY: Status post hemicolectomy in February 2019. ALLERGIES: No known allergies. MEDICATIONS: At the present time include Tylenol, albuterol, diltiazem, Lasix, losartan, methylprednisolone, Zosyn. SOCIAL HISTORY: She lives at home in the community with significant others. She is a nonsmoker, nondrinker. SYSTEMS REVIEW: Neurologic: No loss of consciousness, seizure activity, focal weakness. Cardiac: Negative chest pain or palpitations. Respiratory: As per HPI. Gastrointestinal: Negative vomiting or diarrhea. Genitourinary: Negative for urinary tract infection. LABORATORY DATA: White count 12.4, hematocrit 35.7, platelets 255, creatinine 1.0. Cultures are pending. PHYSICAL EXAMINATION: General: She is awake and alert. She is obese. Slightly short of breath at rest on oxygen. Vital Signs: Temperature 98.4, blood pressure 161/72, pulse 94 regular, respirations 16 per minute. HEENT: Sclerae anicteric. Heart: Sounds S1, S2. Lungs: Air entry bilaterally. Abdomen: Abdominal wound with lucius in place. No erythema or drainage. Dustin-Smith drains are in place with serosanguineous drainage. Extremities: Have 1+ edema. IMPRESSION: 1. Rule out healthcare-acquired right lower lobe pneumonia. 2. Postoperative incisional hernia with mesh. 3. Leukocytosis. 4. Colon cancer status post hemicolectomy. PLAN: Await cultures. Empiric antibiotic coverage with Zosyn 3.375 g IV piggyback every 8 hours. Supportive measures. Case discussed with patient's daughter present at the time of the examination. Thank you for the kind referral. SHELBY RODRIGUEZ M.D. [id number]
--- NOTE | 2019-10-11 16:34 | PATH ---
Surgical Pathology Report Patient Name: LILLIE GOMEZ [facility]. Rec. #: [id number] /Age/Gender: 1935 (Age: 84) / F Account: [id number] Location: ICU BI TRI OPERATOR Taken: 10/08/2019 Received: 10/09/2019 Reported: 10/11/2019 Physicians: John Alvarado MD Specimen(s) Received A: ADHESIONS FROM PREVIOUS SURGERY B: PORTION OF SMALL BOWEL C: PORTION OF PERITONEUM Clinical History Incisional hernia Final Diagnosis A. ADHESIONS FROM PREVIOUS SURGERY, EXCISION: SKIN WITH UNDERLYING SUBCUTANEOUS TISSUE WITH DERMAL SCAR, FIBROSIS, AND CHANGES OF PRIOR PROCEDURE. B. PORTION OF SMALL BOWEL, RESECTION: SEGMENT OF SMALL BOWEL WITH VASCULAR CONGESTION, HEMORRHAGE, MILD PATCHY CHRONIC INFLAMMATIO N INCLUDING RARE GIANT CELLS, AND SEROSAL DEFECTS ASSOCIATED WITH DENSE SEROSAL ADHESIONS. SURGICAL MARGINS ARE VIABLE. C. PORTION OF PERITONEUM, EXCISION: DENSE FIBROADIPOSE TISSUE PARTIALLY EFFACED BY MESOTHELIUM WITH FOCAL HEMORRHAGE, AND MILD CHRONIC INFLAMMATION INCLUDING FOCAL GIANT CELL INFILTRATE. Electronically Signed Frances White M.D. Gross Description A. Received in formalin labeled "adhesions from previous surgery," is 11.5 x 1.6 cm giles, elliptical portion of skin excised to a depth of 2.8 cm. The epidermal surface displays a scar. Sectioning reveals focal fibrous tissue. A sales and service representative section is submitted in one cassette. B. Received in formalin labeled "portion of small bowel," is a 34 cm in length portion of small bowel with 2 stapled mucosal margins and moderate attached adipose tissue. The serosa is giles-pink with 2 separate defects at each end surrounded by fibrous adhesions. There is a separate focus of fibrous adhesions in the middle of the specimen. Sectioning reveals a giles mucosa with normal folds. No mucosal masses are identified. Awning Frame Maker sections are submitted in 10 cassettes as follows: [id number] stapled mucosal margins; 0-6-dluffoit from first defect; 4-2-[id number] from second the defect; 9-section from area of serosal adhesion (central portion of specimen); 10-uninvolved small bowel. C. Received in formalin labeled "portion of peritoneum," is a 6.0 x 5.0 x 1.1 cm abreu purple portion of fibrous tissue with attached fat, consistent with a portion of peritoneum. Awning Frame Maker sections are submitted in one cassette. 10/09/2019 saudi10/09/2019
[2019-10-11] MEDS: methylPREDNISolone NA SUCC 40 MG/1 ML VIAL IVPUSH SCH (17:38)
[2019-10-11] MEDS: PANTOPRAZOLE SODIUM 40 MG VIAL IVPB SCH (17:44)
[2019-10-11] MEDS: LACTATED RINGERS SOLUTION 1,000 ML IV SCH (17:58)
[2019-10-11] MEDS ORDERED: PT OWN MED DRAWER 7, Y5N ONE (20:44)
--- NOTE | 2019-10-11 22:28 | PN ---
Progress Note (short form) - Note Progress Note: Pt. continues to have persistent hematuria and increased sanguinous drainage from the EDMUNDO drains. Pt. denies any chest pain, headache or blurry vision but does endorse shortness of breath. We will discontinue Heparin gtt and obtain a CBC. Will sign out to Day team in AM for further discussion with Cardiology and Surgery as to when to restart AC.
[2019-10-11] MEDS ORDERED: LORazepam 2 MG/ML SDV VIAL IM ONE (22:46)
[2019-10-11 22:49] LABS: HEMOGLOBIN 11.2 GM/dL (10.7-15.3); MCH 28.1 pg (25.7-33.7); MEAN CELL VOLUME 87.8 fl (80-96); MEAN PLT VOLUME 7.8 fl (7.5-11.1); PLATELET COUNT 243 K/MM3 (134-434); RBC 3.98 M/mm3 (3.60-5.2); RDW 17.1 % (11.6-15.6); WHITE BLOOD COUNT 10.6 K/mm3 (4.0-10.0)
[2019-10-11 23:06] LABS: INR 1.31 (0.83-1.09); PROTHROMBIN TIME (PATIENT) 15.5 SEC (9.7-13.0)
[2019-10-11] MEDS ORDERED: LORazepam 2 MG/ML SDV VIAL IVPUSH ONE (23:06)
[2019-10-11 23:09] LABS: ACTIVATED PTT 82.4 SECONDS (25.2-36.5)
[2019-10-12] MEDS: LATANOPROST 0.005% OPHTH SOLN 2.5ML BOTTLE OD SCH
[2019-10-12] MEDS: ALBUTEROL SO4 2.5/IPRATROPIUM 0.5 INH SOL 3 ML VIAL.NEB. NEB PRN ×3 (00:13→06:54)
[2019-10-12] MEDS ORDERED: ACETAMINOPHEN 1000 MG/100 ML VIAL (NON FORMULARY) IVPB ONE (00:20)
[2019-10-12] MEDS ORDERED: DEXTROSE 5%-WATER - 50 ML IVPB ONE ×3 (03:22→17:40)
[2019-10-12] MEDS ORDERED: PIPERACILLIN/TAZOBACTAM 3.375 GM VIAL IVPB ONE ×3 (03:22→17:40)
[2019-10-12] MEDS ORDERED: LORazepam 2 MG/ML SDV VIAL ONE (04:06)
[2019-10-12] MEDS: PIPERACILLIN/TAZOB 3.375 GM 3.375 GM in DEXTROSE 5%-WATER - 50 ML IVPB SCH ×3 (04:10→17:48)
[2019-10-12] MEDS: methylPREDNISolone NA SUCC 40 MG/1 ML VIAL IVPUSH SCH ×3 (04:11→17:48)
--- NOTE | 2019-10-12 06:00 | PN ---
Progress Note (short form) - Note Progress Note: Patient seen and examined Extubated On ventimask Respoding to commands AFVSS Cor: RSR, No murmurs, No gallops Lungs: Clear to P&A Abd: Soft, Normal bowel sounds, No organomegaly Ext:No significant edema Labs/Meds reviewed A/P 84 y/o patient with h/o HTN, glaucoma, afib, CHF, colon cancer s/p hemicolectomy 02/20/19, now s/p repair of incisional hernia also remote h/o endometrial cancer PET CT s/o carcinomatosis. CEA nl PAth from incisional herna repair and peritoneal biopsy is benign given her overall performance status will monitor with imaging will follow outpatient
[2019-10-12] MEDS: LACTATED RINGERS SOLUTION 1,000 ML IV SCH (06:37)
[2019-10-12] MEDS: MORPHINE SULFATE 2 MG/ML VIAL IVPUSH PRN ×2 (06:42)
[2019-10-12] MEDS ORDERED: methylPREDNISolone NA SUCC 125 MG/2 ML VIAL ONE (06:50)
[2019-10-12] MEDS ORDERED: FUROSEMIDE 40 MG/4 ML INJECTABLE VIAL IVPUSH ONE (06:51)
[2019-10-12] MEDS ORDERED: RAPID SEQUENCE INTUBATION KIT NR ONE (06:53)
[2019-10-12] MEDS ORDERED: PROPOFOL 200 MG/20 ML VIAL IVPUSH ONE (07:18)
[2019-10-12] MEDS ORDERED: ROCURONIUM BROMIDE 50 MG/5 ML VIAL IVPUSH ONE (07:18)
--- NOTE | 2019-10-12 07:18 | PROC ---
Intubation - Intubation Reason for Intubation: Respiratory Insufficiency Time of Intubation: 07:10 Intubation Method: orotracheal Blade used: Mac Tube Size (cm): 7.5 Tube position @ lip (cm): 24 Tube position confirmed by: Direct visualization, CO2 detector, Chest x-ray, Breath sounds Breath Sounds after Intubation: equal Post Intubation Xray: Yes Remarks: 50 rocuronium and 150 propofol for sedation
[2019-10-12] MEDS ORDERED: ATROPINE SULFATE 1 MG/10 ML DISP.SYRIN IVPUSH ONE ×3 (07:20→07:22)
[2019-10-12 07:37] LABS: HEMOGLOBIN 10.7 GM/dL (10.7-15.3); LYMPH % 4.5 % (8-40); MCHC 32.3 g/dl (32.0-36.0); MEAN CELL VOLUME 86.8 fl (80-96); MEAN PLT VOLUME 7.7 fl (7.5-11.1); MONO % 4.6 % (3.8-10.2); NEUT % 90.9 % (42.8-82.8); PLATELET COUNT 238 K/MM3 (134-434); WHITE BLOOD COUNT 8.4 K/mm3 (4.0-10.0)
[2019-10-12] MEDS: ALBUTEROL SO4 2.5/IPRATROPIUM 0.5 INH SOL 3 ML VIAL.NEB. NEB SCH ×4 (07:40→08:15)
[2019-10-12] MEDS: INSULIN SLIDING SCALE (NOVOLOG) 1 VIAL SQ SCH ×3 (07:45→17:33)
[2019-10-12 08:22] LABS: ALBUMIN 2.7 g/dl (3.4-5.0); BILIRUBIN,TOTAL 0.3 mg/dL (0.2-1); CREATININE 0.9 mg/dL (0.55-1.3); MAGNESIUM 2.8 mg/dL (1.8-2.4); PHOSPHOROUS 2.3 mg/dL (2.5-4.9); POTASSIUM 4.1 mmol/L (3.5-5.1); TOT PROT 5.4 g/dl (6.4-8.2)
--- NOTE | 2019-10-12 08:28 | PN ---
Progress Note (short form) - Note Progress Note: POD#4 Pt reintubated this am. IV heparin drip stopped secondary to hematuria. Vital Signs Period Temp Pulse Resp BP Sys/Ugarte Pulse Ox Last 24 Hr 98.0 F-98.8 F 50-109 - 105-159/57-102 96-100 UOP-1000ml light pink in tubing EDMUNDO-RIght 20ml serosangrenous EDMUNDO- Left 10ml serosangrenous NGT-no outpt recorded GEN: pt intubated/sedated CV: bradycardic ABD: soft, non-distended. Midline incision c/d/i with lucius. LE: no calf tenderness or swelling b/l CBC, BMP 10/12/19 06:08 10/12/19 06:08 A/P: 84 yo female s/p ventral hernia repair with mesh and SB resection, respiratory distress now intubated Continue npo/IV hydration IV heparin held 2nd to hematuria, H&H stable Care as per the ICU team Follow up from cardiology regarding cardizem, pt getting ECHO at bedside today. D/w Dr. Alvarado
[2019-10-12 08:34] LABS: ARTERIAL BLD GAS O2 SATURATION 99.1 % (95-98); ARTERIAL BLOOD GAS BASE EXCESS 1.9 meq/l (-2-2); ARTERIAL BLOOD GAS PCO2 42.7 mmHg (35-45); ARTERIAL BLOOD GAS PO2 144 mmHg (80-100); ARTERIAL BLOOD GAS pH 7.41 (7.35-7.45)
[2019-10-12 08:36] LABS: ALLENS TEST POSITIVE
[2019-10-12] MEDS ORDERED: fentaNYL CITRATE 250 MCG/5 ML VIAL ONE ×4 (08:37→19:54)
[2019-10-12] MEDS: FENTANYL INJECTION 500 MCG in DEXTROSE 5%-WATER - 90 ML IVPB SCH (08:51)
[2019-10-12] MEDS ORDERED: PT OWN MED DRAWER 7, Y5N ONE (09:41)
[2019-10-12] MEDS: TIMOLOL 0.5% OPHTHALMIC SOL 5 ML BOTTLE OU SCH (09:43)
[2019-10-12] MEDS: PANTOPRAZOLE SODIUM 40 MG VIAL IVPB SCH (09:43)
[2019-10-12] MEDS: FLUTICASONE PROP 0.05% 16 GM NASAL SPRAY NS SCH (09:55)
[2019-10-12] MEDS ORDERED: PIPERACILLIN/TAZOB 3.375 GM 3.375 GM in DEXTROSE 5%-WATER - 50 ML IVPB SCH (10:00)
--- NOTE | 2019-10-12 11:13 | PN ---
Physical Exam: SUBJECTIVE: Patient seen and examined. This morning patient noted to be tachypnic, bradycardic, anxious. On auscultation of the airway, stridor was noted. Decision made to re-intubate patient to secure airway. On intubation, airway visualized, no edema noted. OBJECTIVE: Vital Signs Period Temp Pulse Resp BP Sys/Ugarte Pulse Ox Last 24 Hr 98.0 F-98.5 F 50-109 11-19 112-159/59-102 96-100 GENERAL: intubated, sedated HEAD: Normal with no signs of trauma. EYES: PERRL, EOMI ENT: dry mucous membranes NECK: Trachea midline LUNGS: Breath sounds equal, clear to auscultation bilaterally, no wheezes, no crackles, no accessory muscle use. HEART: Regular rate and rhythm, S1, S2 without murmur, rub or gallop. ABDOMEN: Soft, nontender, nondistended NEUROLOGICAL: normal gag reflex Laboratory Results - last 24 hr 10/11/19 10/11/19 10/11/19 11:14 15:04 16:44 WBC RBC Hgb Hct MCV MCH MCHC RDW Plt Count MPV Absolute Neuts (auto) Neutrophils % Lymphocytes % Monocytes % Eosinophils % Basophils % Nucleated RBC % PT with INR INR PTT (Actin FS) 78.5 H Anticoagulation Therapy Puncture Site ABG pH ABG pCO2 at Pt Temp ABG pO2 at Pt Temp ABG HCO3 ABG O2 Sat (Measured) ABG O2 Content ABG Base Excess Alfonzo Test O2 Delivery Device Oxygen Flow Rate Vent Mode Vent Rate Mechanical Rate PEEP Pressure Support Vent Sodium Potassium Chloride Carbon Dioxide Anion Gap BUN Creatinine Est GFR (CKD-EPI)AfAm Est GFR (CKD-EPI)NonAf POC Glucometer 139 138 Random Glucose Calcium Phosphorus Magnesium Total Bilirubin AST ALT Alkaline Phosphatase Total Protein Albumin 10/11/19 10/11/19 10/12/19 22:30 22:30 06:08 WBC 10.6 H 8.4 RBC 3.98 3.80 Hgb 11.2 10.7 Hct 35.0 33.0 MCV 87.8 86.8 MCH 28.1 28.0 MCHC 32.0 32.3 RDW 17.1 H 17.0 H Plt Count 243 238 MPV 7.8 7.7 Absolute Neuts (auto) 7.6 Neutrophils % 90.9 H Lymphocytes % 4.5 L D Monocytes % 4.6 D Eosinophils % 0.0 Basophils % 0.0 Nucleated RBC % 0 PT with INR 15.50 H INR 1.31 H PTT (Actin FS) 82.4 H Anticoagulation Therapy Puncture Site ABG pH ABG pCO2 at Pt Temp ABG pO2 at Pt Temp ABG HCO3 ABG O2 Sat (Measured) ABG O2 Content ABG Base Excess Alfonzo Test O2 Delivery Device Oxygen Flow Rate Vent Mode Vent Rate Mechanical Rate PEEP Pressure Support Vent Sodium Potassium Chloride Carbon Dioxide Anion Gap BUN Creatinine Est GFR (CKD-EPI)AfAm Est GFR (CKD-EPI)NonAf POC Glucometer Random Glucose Calcium Phosphorus Magnesium Total Bilirubin AST ALT Alkaline Phosphatase Total Protein Albumin 10/12/19 10/12/19 10/12/19 06:08 06:08 06:41 WBC RBC Hgb Hct MCV MCH MCHC RDW Plt Count MPV Absolute Neuts (auto) Neutrophils % Lymphocytes % Monocytes % Eosinophils % Basophils % Nucleated RBC % PT with INR INR PTT (Actin FS) 28.6 Anticoagulation Therapy Puncture Site ABG pH ABG pCO2 at Pt Temp ABG pO2 at Pt Temp ABG HCO3 ABG O2 Sat (Measured) ABG O2 Content ABG Base Excess Alfonzo Test O2 Delivery Device Oxygen Flow Rate Vent Mode Vent Rate Mechanical Rate PEEP Pressure Support Vent Sodium 142 Potassium 4.1 Chloride 107 Carbon Dioxide 33 H Anion Gap 3 L BUN 25.0 H Creatinine 0.9 Est GFR (CKD-EPI)AfAm 68.53 Est GFR (CKD-EPI)NonAf 59.13 POC Glucometer 122 Random Glucose 125 H Calcium 8.0 L Phosphorus 2.3 L Magnesium 2.8 H Total Bilirubin 0.3 AST 10 L ALT 35 Alkaline Phosphatase 63 Total Protein 5.4 L Albumin 2.7 L 10/12/19 08:00 WBC RBC Hgb Hct MCV MCH MCHC RDW Plt Count MPV Absolute Neuts (auto) Neutrophils % Lymphocytes % Monocytes % Eosinophils % Basophils % Nucleated RBC % PT with INR INR PTT (Actin FS) Anticoagulation Therapy No Result Required. Puncture Site Right radial ABG pH 7.41 ABG pCO2 at Pt Temp 42.7 ABG pO2 at Pt Temp 144 H ABG HCO3 26.3 ABG O2 Sat (Measured) 99.1 H ABG O2 Content 18.3 ABG Base Excess 1.9 Alfonzo Test Positive O2 Delivery Device No Result Required. Oxygen Flow Rate 50 Vent Mode No Result Required. Vent Rate 14 Mechanical Rate No Result Required. PEEP 5.0 Pressure Support Vent No Result Required. Sodium Potassium Chloride Carbon Dioxide Anion Gap BUN Creatinine Est GFR (CKD-EPI)AfAm Est GFR (CKD-EPI)NonAf POC Glucometer Random Glucose Calcium Phosphorus Magnesium Total Bilirubin AST ALT Alkaline Phosphatase Total Protein Albumin Active Medications Generic Name Dose Route Start Last Admin Trade Name Freq PRN Reason Stop Dose Admin Albuterol/Ipratropium 1 amp 10/11/19 15:32 10/12/19 06:54 Duoneb - NEB 1 amp Q4H PRN Administration SHORTNESS OF BREATH Diltiazem HCl 10 mg 10/11/19 10:54 10/11/19 18:03 Cardizem Injection - IVPUSH 10 mg Q4H PRN Administration TACHYCARDIA Fluticasone Propionate 1 spray 10/09/19 10:00 10/12/19 09:55 Flonase - NS Not Given DAILY [facility] Lactated Ringer's 1,000 mls @ 42 mls/hr 10/11/19 08:12 10/11/19 17:58 Lactated Ringers Solution IV 42 mls/hr ASDIR S[facility]AN[facility] Administration Piperacillin Sod/Tazobactam 50 mls @ 100 mls/hr 10/12/19 10:00 Sod 3.375 gm/ Dextrose IVPB Q8H-IV [facility] Protocol Fentanyl 500 mcg/ Dextrose 100 mls @ 5 mls/hr 10/12/19 08:30 10/12/19 08:51 IVPB 25 mcg/hr TITR S[facility] 5 mls/hr Administration Protocol 25 MCG/HR Insulin Aspart 1 vial 10/10/19 07:00 10/12/19 07:45 Novolog Vial Sliding Scale - SQ Not Given TIDAC [facility] Protocol Latanoprost 1 drop 10/08/19 22:00 10/12/19 00:00 Xalatan 0.005% Eye Drops - OD 1 drop HS [facility] Administration Losartan Potassium 25 mg 10/10/19 10:00 10/10/19 16:45 Cozaar - GT Not Given DAILY [facility] Methylprednisolone Sodium Succinate 40 mg 10/11/19 18:00 10/12/19 09:43 Solu-Medrol - IVPUSH 40 mg Q8H-IV [facility] Administration Metoprolol Tartrate 25 mg 10/09/19 07:00 10/10/19 16:45 Lopressor - PO Not Given BID [facility] Morphine Sulfate 2 mg 10/10/19 13:04 10/12/19 06:42 Morphine Sulfate IVPUSH 2 mg Q4H PRN Administration PAIN LEVEL 7 - 10 Pantoprazole Sodium 40 mg 10/11/19 17:30 10/12/19 09:43 Protonix Iv IVPB 40 mg DAILY [facility] Administration Timolol Maleate 1 drop 10/08/19 22:00 10/12/19 09:43 Timoptic 0.5% OU 1 drop BID [facility] Administration ASSESSMENT/PLAN: 84 y/o/f with PMH of HTN, HLD, Afib(on Eliquis), HFpEF, Hyperthyroidism, Parkinson's Disease, Asthma and Colon CA (s/p hemicolectomy 02/2019) presents after complicated ambulatory inguinal hernia repair surgery, POD #4. Patient was extubated on 10/10 but needed to be intubated again on 10/12 for respiratory distress. #Neurology - Intubated, sedated. - Fentanyl, Propofol for sedation #GI - POD#4 of inguinal hernia repair with enterotomy and mesh placement - NG Tube in place #Cardiovascular - Discontinue Lopressor 5mg IVP PRN for Afib greater than 120, f/u with surgery for resuming Eliquis - Patient having episodes of bradycardia, will d/c Cardizem - Monitor BP - Hx of HTN, home meds Lopressor and Losartan held as per surgery #Pulmonary - Extubated 10/10. Re-intubated on 10/12 for respiratory distress with bradycardia. ET tube adjusted after xray. - Standing duonebs, Albuterol PRN - CXR: widened mediastinum, large heart. - Neck XR - some soft tissue prominence. limited exam. CT neck soft tissue ordered for further evaluation of airway. - Hx. of Asthma will monitor for signs of exacerbation - Maintain O2 saturation >90% #Heme/Onc - Consult placed due to history of Colon CA (last PET done 3 weeks ago). - F/U outpatient with Dr. Walton #ID - Continue Zosyn as per ID #Endo - Hold PO Methimazole as Pt. is NPO s/p enterotomy, (Methimazole can be crushed after discussion with Pharmacy), no IV equivalents in hospital. #Renal - Monitor I/Os #FEN - LR @ 42 mls/hr - NPO #DVT PPX - SCDs - Protonix #Dispo - Continue ICU monitoring - Re-intubated 10/12 Visit type - Emergency Visit Emergency Visit: Yes ED Registration Date: 10/08/19 Care time: The patient presented to the Emergency Department on the above date and was hospitalized for further evaluation of their emergent condition. - New Patient This patient is new to me today: Yes Date on this admission: 10/12/19 - Critical Care Critical Care patient: Yes Total Critical Care Time (in minutes): 36 Critical Care Statement: The care of this patient involved high complexity decision making to prevent further life threatening deterioration of the patient 's condition and/or to evaluate & treat vital organ system(s) failure or risk of failure. ATTENDING PHYSICIAN STATEMENT I saw and evaluated the patient. I reviewed the resident's note and discussed the case with the resident. I agree with the resident's findings and plan as documented. SUBJECTIVE: OBJECTIVE: ASSESSMENT AND PLAN:
--- NOTE | 2019-10-12 11:36 | PN ---
Teaching Attending Note Name of Resident: Gagan Westbrook ATTENDING PHYSICIAN STATEMENT I saw and evaluated the patient. I reviewed the resident's note and discussed the case with the resident. I agree with the resident's findings and plan as documented. SUBJECTIVE: Patent seen and examined in the ICU. Decompensated overnight and required intubation. AC Mode of vent. No obvious pathology in the upper airway noted on intubation. Intake & Output 10/09/19 10/10/19 10/11/19 10/12/19 23:59 23:59 23:59 23:59 Intake Total 2886 3518 1846 544 Output Total 690 1480 4540 430 Balance 2196 2038 -2694 114 Weight 179 lb 3.773 oz 186 lb Last Vital Signs Temp Pulse Resp BP Pulse Ox 98.8 F 80 17 105/57 L 100 10/12/19 11:00 10/12/19 11:00 10/12/19 11:00 10/12/19 11:00 10/12/19 07:39 Active Medications Albuterol/Ipratropium (Duoneb -) 1 amp NEB Q4H PRN PRN Reason: SHORTNESS OF BREATH Last Admin: 10/12/19 06:54 Dose: 1 amp Diltiazem HCl (Cardizem Injection -) 10 mg IVPUSH Q4H PRN PRN Reason: TACHYCARDIA Last Admin: 10/11/19 18:03 Dose: 10 mg Fluticasone Propionate (Flonase -) 1 spray NS DAILY [facility] Last Admin: 10/12/19 09:55 Dose: Not Given Lactated Ringer's (Lactated Ringers Solution) 1,000 mls @ 42 mls/hr IV ASDIR SRIKAN[facility] Last Admin: 10/11/19 17:58 Dose: 42 mls/hr Piperacillin Sod/Tazobactam (Sod 3.375 gm/ Dextrose) 50 mls @ 100 mls/hr IVPB Q8H-IV S[facility]; Protocol Fentanyl 500 mcg/ Dextrose 100 mls @ 5 mls/hr IVPB TITR [facility]; Protocol Last Admin: 10/12/19 08:51 Dose: 25 mcg/hr, 5 mls/hr Insulin Aspart (Novolog Vial Sliding Scale -) 1 vial SQ TIDAC [facility]; Protocol Last Admin: 10/12/19 07:45 Dose: Not Given Latanoprost (Xalatan 0.005% Eye Drops -) 1 drop OD HS [facility] Last Admin: 10/12/19 00:00 Dose: 1 drop Losartan Potassium (Cozaar -) 25 mg GT DAILY [facility] Last Admin: 10/10/19 16:45 Dose: Not Given Methylprednisolone Sodium Succinate (Solu-Medrol -) 40 mg IVPUSH Q8H-IV [facility] Last Admin: 10/12/19 09:43 Dose: 40 mg Metoprolol Tartrate (Lopressor -) 25 mg PO BID [facility] Last Admin: 10/10/19 16:45 Dose: Not Given Morphine Sulfate (Morphine Sulfate) 2 mg IVPUSH Q4H PRN PRN Reason: PAIN LEVEL 7 - 10 Last Admin: 10/12/19 06:42 Dose: 2 mg Pantoprazole Sodium (Protonix Iv) 40 mg IVPB DAILY [facility] Last Admin: 10/12/19 09:43 Dose: 40 mg Timolol Maleate (Timoptic 0.5%) 1 drop OU BID [facility] Last Admin: 10/12/19 09:43 Dose: 1 drop Gen: Intubated and sedated Neck: No gross neck swelling Heart: RRR Lung: decreased breath sounds at the bases Abd: soft, nontender, (+)BS, serosanguinous fluid in EDMUNDO Ext: no edema Laboratory Results - last 24 hr 10/11/19 10/11/19 10/11/19 15:04 16:44 22:30 WBC 10.6 H RBC 3.98 Hgb 11.2 Hct 35.0 MCV 87.8 MCH 28.1 MCHC 32.0 RDW 17.1 H Plt Count 243 MPV 7.8 Absolute Neuts (auto) Neutrophils % Lymphocytes % Monocytes % Eosinophils % Basophils % Nucleated RBC % PT with INR INR PTT (Actin FS) 78.5 H Anticoagulation Therapy Puncture Site ABG pH ABG pCO2 at Pt Temp ABG pO2 at Pt Temp ABG HCO3 ABG O2 Sat (Measured) ABG O2 Content ABG Base Excess Alfonzo Test O2 Delivery Device Oxygen Flow Rate Vent Mode Vent Rate Mechanical Rate PEEP Pressure Support Vent Sodium Potassium Chloride Carbon Dioxide Anion Gap BUN Creatinine Est GFR (CKD-EPI)AfAm Est GFR (CKD-EPI)NonAf POC Glucometer 138 Random Glucose Calcium Phosphorus Magnesium Total Bilirubin AST ALT Alkaline Phosphatase Total Protein Albumin 10/11/19 10/12/19 10/12/19 22:30 06:08 06:08 WBC 8.4 RBC 3.80 Hgb 10.7 Hct 33.0 MCV 86.8 MCH 28.0 MCHC 32.3 RDW 17.0 H Plt Count 238 MPV 7.7 Absolute Neuts (auto) 7.6 Neutrophils % 90.9 H Lymphocytes % 4.5 L D Monocytes % 4.6 D Eosinophils % 0.0 Basophils % 0.0 Nucleated RBC % 0 PT with INR 15.50 H INR 1.31 H PTT (Actin FS) 82.4 H Anticoagulation Therapy Puncture Site ABG pH ABG pCO2 at Pt Temp ABG pO2 at Pt Temp ABG HCO3 ABG O2 Sat (Measured) ABG O2 Content ABG Base Excess Alfonzo Test O2 Delivery Device Oxygen Flow Rate Vent Mode Vent Rate Mechanical Rate PEEP Pressure Support Vent Sodium 142 Potassium 4.1 Chloride 107 Carbon Dioxide 33 H Anion Gap 3 L BUN 25.0 H Creatinine 0.9 Est GFR (CKD-EPI)AfAm 68.53 Est GFR (CKD-EPI)NonAf 59.13 POC Glucometer Random Glucose 125 H Calcium 8.0 L Phosphorus 2.3 L Magnesium 2.8 H Total Bilirubin 0.3 AST 10 L ALT 35 Alkaline Phosphatase 63 Total Protein 5.4 L Albumin 2.7 L 10/12/19 10/12/19 10/12/19 06:08 06:41 08:00 WBC RBC Hgb Hct MCV MCH MCHC RDW Plt Count MPV Absolute Neuts (auto) Neutrophils % Lymphocytes % Monocytes % Eosinophils % Basophils % Nucleated RBC % PT with INR INR PTT (Actin FS) 28.6 Anticoagulation Therapy No Result Required. Puncture Site Right radial ABG pH 7.41 ABG pCO2 at Pt Temp 42.7 ABG pO2 at Pt Temp 144 H ABG HCO3 26.3 ABG O2 Sat (Measured) 99.1 H ABG O2 Content 18.3 ABG Base Excess 1.9 Alfonzo Test Positive O2 Delivery Device No Result Required. Oxygen Flow Rate 50 Vent Mode No Result Required. Vent Rate 14 Mechanical Rate No Result Required. PEEP 5.0 Pressure Support Vent No Result Required. Sodium Potassium Chloride Carbon Dioxide Anion Gap BUN Creatinine Est GFR (CKD-EPI)AfAm Est GFR (CKD-EPI)NonAf POC Glucometer 122 Random Glucose Calcium Phosphorus Magnesium Total Bilirubin AST ALT Alkaline Phosphatase Total Protein Albumin ASSESSMENT AND PLAN: s/p Incisional Hernia Repair with mesh/SB resection s/p Acute Respiratory Failure Atrial Fibrillation HTN DM Hyperthyroidism h/o Colon Ca h/o Cervical Ca - CT imaging - BD TX - Monitor off systemic steroids - pain control - Incentive spirometry - Rate control with CCB - IV Heparin - PO per surgery - Requires continued ICU monitoring Dr Paez Critical care time spent in reviewing chart, evaluating patient and formulating plan - 36 minutes.
--- NOTE | 2019-10-12 11:59 | PN ---
Progress Note, Physician Chief Complaint: respiratory decompensation over night required reintubation had some hematuria / urine in [place] - heparin stopped had low HR bradycardia 40s and borderline hypoTA - per cardiology also seen by ID r/o sepsis - ATB per ID consults events meds reviewed and d/w pt's family at bedside - Current Medication List Current Medications: Active Medications Albuterol/Ipratropium (Duoneb -) 1 amp NEB Q4H PRN PRN Reason: SHORTNESS OF BREATH Last Admin: 10/12/19 06:54 Dose: 1 amp Diltiazem HCl (Cardizem Injection -) 10 mg IVPUSH Q4H PRN PRN Reason: TACHYCARDIA Last Admin: 10/11/19 18:03 Dose: 10 mg Fluticasone Propionate (Flonase -) 1 spray NS DAILY [facility] Last Admin: 10/12/19 09:55 Dose: Not Given Lactated Ringer's (Lactated Ringers Solution) 1,000 mls @ 42 mls/hr IV ASDIR S[facility]AN[facility] Last Admin: 10/11/19 17:58 Dose: 42 mls/hr Fentanyl 500 mcg/ Dextrose 100 mls @ 5 mls/hr IVPB TITR [facility]; Protocol Last Admin: 10/12/19 08:51 Dose: 25 mcg/hr, 5 mls/hr Piperacillin Sod/Tazobactam (Sod 3.375 gm/ Dextrose) 50 mls @ 100 mls/hr IVPB Q8H-IV [facility]; Protocol Insulin Aspart (Novolog Vial Sliding Scale -) 1 vial SQ TIDAC [facility]; Protocol Last Admin: 10/12/19 07:45 Dose: Not Given Latanoprost (Xalatan 0.005% Eye Drops -) 1 drop OD HS [facility] Last Admin: 10/12/19 00:00 Dose: 1 drop Losartan Potassium (Cozaar -) 25 mg GT DAILY [facility] Last Admin: 10/10/19 16:45 Dose: Not Given Methylprednisolone Sodium Succinate (Solu-Medrol -) 40 mg IVPUSH Q8H-IV [facility] Last Admin: 10/12/19 09:43 Dose: 40 mg Metoprolol Tartrate (Lopressor -) 25 mg PO BID [facility] Last Admin: 10/10/19 16:45 Dose: Not Given Morphine Sulfate (Morphine Sulfate) 2 mg IVPUSH Q4H PRN PRN Reason: PAIN LEVEL 7 - 10 Last Admin: 10/12/19 06:42 Dose: 2 mg Pantoprazole Sodium (Protonix Iv) 40 mg IVPB DAILY [facility] Last Admin: 10/12/19 09:43 Dose: 40 mg Timolol Maleate (Timoptic 0.5%) 1 drop OU BID [facility] Last Admin: 10/12/19 09:43 Dose: 1 drop - Objective Vital Signs: Vital Signs Temperature 98.8 F 10/12/19 11:00 Pulse Rate 80 10/12/19 11:00 Respiratory Rate 17 10/12/19 11:00 Blood Pressure 105/57 L 10/12/19 11:00 O2 Sat by Pulse Oximetry (%) 100 10/12/19 07:39 Constitutional: Yes: No Distress Eyes: Yes: Conjunctiva Clear HENT: Yes: Atraumatic Neck: Yes: Supple Cardiovascular: Yes: Regular Rate and Rhythm Respiratory: Yes: Diminished Gastrointestinal: Yes: Soft. No: Tenderness Genitourinary: Yes: Hematuria Musculoskeletal: No: Joint Stiffness Extremities: No: Calf Tenderness, Cold Edema: Yes (hands edema) Integumentary: No: Rash, Venous Stasis Changes Neurological: No: Alert Psychiatric: No: Alert Labs: CBC, BMP 10/12/19 06:08 10/12/19 06:08 INR, PTT INR 1.31 (0.83-1.09) H 10/11/19 22:30 - ....Imaging Other: Report Reviewed Assessment/Plan 83 yo F h/of Colon Ca (s/p Hemicolectomy, 02/2019), HTN, HLD, Afib ( on Eliquis) , Diastolic CHF, HLD, Hyperthyroidism s/p open complicated elective incisional hernia repair, adhesions, s/p incidental enterotomy and partial small bowel resection / reanastomosis and mesh placement, difficult airway access, airway swelling, intubated postop for airway protection admitted go ICU respiratory failure reintubated hematuria after IV heparin - hold AC for now d/w pt's daughter Cintia risks CVA KS off AC and risks bleeding on AC given bleeding now heparinn was held bradycardia hypoTA cardiology f/u r/o sepsis seen by ID - ATB per ID restart iv steroids for airway swelling and wheezing IVF; cont meds; iv heparin PTT checks cardiology f/u; BP control; DVT PFX, decubs, aspiration PFX; f/u labs; I/O Graham; prognosis guarded d.w staff d/w pts' daughter t time 40 min
--- NOTE | 2019-10-12 12:00 | PN ---
Progress Note, Physician History of Present Illness: SEDATED ON VENTILATOR AFEBRILE WBC IMPROVED BC PRELIM NO GROWTH - Current Medication List Current Medications: Active Medications Albuterol/Ipratropium (Duoneb -) 1 amp NEB Q4H PRN PRN Reason: SHORTNESS OF BREATH Last Admin: 10/12/19 06:54 Dose: 1 amp Diltiazem HCl (Cardizem Injection -) 10 mg IVPUSH Q4H PRN PRN Reason: TACHYCARDIA Last Admin: 10/11/19 18:03 Dose: 10 mg Fluticasone Propionate (Flonase -) 1 spray NS DAILY [facility] Last Admin: 10/12/19 09:55 Dose: Not Given Lactated Ringer's (Lactated Ringers Solution) 1,000 mls @ 42 mls/hr IV ASDIR [facility] Last Admin: 10/11/19 17:58 Dose: 42 mls/hr Fentanyl 500 mcg/ Dextrose 100 mls @ 5 mls/hr IVPB TITR [facility]; Protocol Last Admin: 10/12/19 08:51 Dose: 25 mcg/hr, 5 mls/hr Insulin Aspart (Novolog Vial Sliding Scale -) 1 vial SQ TIDAC [facility]; Protocol Last Admin: 10/12/19 07:45 Dose: Not Given Latanoprost (Xalatan 0.005% Eye Drops -) 1 drop OD HS [facility] Last Admin: 10/12/19 00:00 Dose: 1 drop Losartan Potassium (Cozaar -) 25 mg GT DAILY [facility] Last Admin: 10/10/19 16:45 Dose: Not Given Methylprednisolone Sodium Succinate (Solu-Medrol -) 40 mg IVPUSH Q8H-IV [facility] Last Admin: 10/12/19 09:43 Dose: 40 mg Metoprolol Tartrate (Lopressor -) 25 mg PO BID [facility] Last Admin: 10/10/19 16:45 Dose: Not Given Morphine Sulfate (Morphine Sulfate) 2 mg IVPUSH Q4H PRN PRN Reason: PAIN LEVEL 7 - 10 Last Admin: 10/12/19 06:42 Dose: 2 mg Pantoprazole Sodium (Protonix Iv) 40 mg IVPB DAILY [facility] Last Admin: 10/12/19 09:43 Dose: 40 mg Timolol Maleate (Timoptic 0.5%) 1 drop OU BID [facility] Last Admin: 10/12/19 09:43 Dose: 1 drop - Objective Vital Signs: Vital Signs Temperature 98.8 F 10/12/19 11:00 Pulse Rate 80 10/12/19 11:00 Respiratory Rate 17 10/12/19 11:00 Blood Pressure 105/57 L 10/12/19 11:00 O2 Sat by Pulse Oximetry (%) 100 10/12/19 07:39 Constitutional: Yes: No Distress, Obese Eyes: Yes: Conjunctiva Clear Cardiovascular: Yes: Regular Rate and Rhythm, S1, S2 Respiratory: Yes: Mechanically Ventilated Gastrointestinal: Yes: Normal Bowel Sounds, Soft, Abdomen, Obese, Other ( MIDLINE SURGICAL WOUND INTACT NO ERYTHEMA EDMUNDO DRAINS WITH SEROSANGUINOUS FLUID ) Edema: Yes Edema: LLE: 1+, RLE: 1+ Labs: CBC, BMP 10/12/19 06:08 10/12/19 06:08 INR, PTT INR 1.31 (0.83-1.09) H 10/11/19 22:30 Assessment/Plan R/O HCAP S/P INCISONAL HERNIA REPAIR LEUKOCYTOSIS CONTINUE EMPIRIC ZOSYN VENTILATORY SUPPORT
--- NOTE | 2019-10-12 12:58 | EKG ---
Test Reason : Blood Pressure : / mmHG Vent. Rate : 051 BPM Atrial Rate : 036 BPM P-R Int : 000 ms QRS Dur : 134 ms QT Int : 500 ms P-R-T Axes : 000 013 000 degrees QTc Int : 460 ms ATRIAL FIBRILLATION WITH SLOW VENTRICULAR RESPONSE WITH PREMATURE VENTRICULAR OR ABERRANTLY CONDUCTED COMPLEXES RIGHT BUNDLE BRANCH BLOCK ABNORMAL ECG WHEN COMPARED WITH ECG OF 11-MAY-2019 20:16, VENT. RATE HAS DECREASED BY 33 BPM Confirmed by SHELBY MOLINA MD ([id number]) on 10/12/2019 12:58:38 PM Referred By: Confirmed By:SHELBY MOLINA MD
--- NOTE | 2019-10-12 14:39 | ECHO ---
Name: LILLEI GOMEZ Exam:Adult Echocardiogram Study Date: 10/12/2019 11:00 AM Age: 84 yrs Height: 60 in Weight: 186 lb BSA: 1.8 m2 MMode/2D Measurements & Calculations IVSd: 0.86 cm Ao root diam: 3.5 cm LVIDd: 5.2 cm LA dimension: 4.5 cm LVIDs: 2.4 cm ACS: 1.8 cm LVPWd: 0.90 cm IVSs: 1.8 cm LVPWs: 1.4 cm EDV(Teich): 129.0 ml ESV(Teich): 20.1 ml Doppler Measurements & Calculations Ao V2 max: 169.6 cm/sec AI max sameer: 358.3 cm/sec Ao max P.5 mmHg AI max P.4 mmHg Ao V2 mean: 101.0 cm/sec Ao mean P.9 mmHg AI dec slope: 97.7 cm/sec2 Ao V2 VTI: 29.2 cm AI P1/2t: 1074 msec MR max sameer: 463.7 cm/sec TR max sameer: 189.2 cm/sec MR max P.0 mmHg TR max P.4 mmHg PI end-d sameer: 98.6 cm/sec Med Peak E' Sameer: 4.2 cm/sec Lat Peak E' Sameer: 4.9 cm/sec Procedure The study was technically difficult with many images being suboptimal in quality. Left Ventricle Left ventricular systolic function is normal. Ejection Fraction = 55-60%. Regional wall motion abnorm alities cannot be excluded due to limited visualization. Right Ventricle The right ventricle is grossly normal size. The right ventricular systolic function is grossly normal . Atria The left atrium is mildly dilated. Right atrial size is normal. Mitral Valve The mitral valve is normal in structure and function. There is no mitral valve stenosis. There is mil d mitral regurgitation. Tricuspid Valve The tricuspid valve is normal in structure and function. There is mild tricuspid regurgitation. Right ventricular systolic pressure is normal. Aortic Valve There is mild aortic sclerosis.;. No hemodynamically significant valvular aortic stenosis. Mild aorti c regurgitation. Pulmonic Valve The pulmonic valve is not well seen, but is grossly normal. There is no pulmonic valvular stenosis. M ild pulmonic valvular regurgitation. Great Vessels The aortic root is normal size. Pericardium/Pleura There is no pericardial effusion. Interpretation Summary Left ventricular systolic function is normal. Ejection Fraction = 55-60%. The study was technically difficult with many images being suboptimal in quality. The left atrium is mildly dilated. There is mild mitral regurgitation. There is mild tricuspid regurgitation. There is mild aortic sclerosis.; Mild aortic regurgitation. There is no pericardial effusion. MD Rivera *Anamaria 10/12/2019 02:39 PM
[2019-10-12] MEDS ORDERED: ATROPINE SULFATE 1 MG/10 ML DISP.SYRIN IVPUSH PRN (14:40)
--- NOTE | 2019-10-12 17:09 | PN ---
Progress Note, Physician History of Present Illness: Re-intubated for increased WOB, hemodynamics stable with rate-controlled afib. Not taking oral intake yet. - Current Medication List Current Medications: Active Medications Albuterol/Ipratropium (Duoneb -) 1 amp NEB Q4H PRN PRN Reason: SHORTNESS OF BREATH Last Admin: 10/12/19 06:54 Dose: 1 amp Atropine Sulfate (Atropine Injection -) 1 mg IVPUSH ONCE PRN PRN Reason: bradycardia <45 Fluticasone Propionate (Flonase -) 1 spray NS DAILY [facility] Last Admin: 10/12/19 09:55 Dose: Not Given Lactated Ringer's (Lactated Ringers Solution) 1,000 mls @ 42 mls/hr IV ASDIR [facility] Last Admin: 10/11/19 17:58 Dose: 42 mls/hr Fentanyl 500 mcg/ Dextrose 100 mls @ 5 mls/hr IVPB TITR [facility]; Protocol Last Admin: 10/12/19 08:51 Dose: 25 mcg/hr, 5 mls/hr Piperacillin Sod/Tazobactam (Sod 3.375 gm/ Dextrose) 50 mls @ 100 mls/hr IVPB Q8H-IV [facility]; Protocol Last Admin: 10/12/19 13:55 Dose: 100 mls/hr Insulin Aspart (Novolog Vial Sliding Scale -) 1 vial SQ ACHS [facility]; Protocol Latanoprost (Xalatan 0.005% Eye Drops -) 1 drop OD HS [facility] Last Admin: 10/12/19 00:00 Dose: 1 drop Losartan Potassium (Cozaar -) 25 mg GT DAILY [facility] Last Admin: 10/10/19 16:45 Dose: Not Given Methylprednisolone Sodium Succinate (Solu-Medrol -) 40 mg IVPUSH Q8H-IV [facility] Last Admin: 10/12/19 09:43 Dose: 40 mg Metoprolol Tartrate (Lopressor -) 25 mg PO BID [facility] Last Admin: 10/10/19 16:45 Dose: Not Given Morphine Sulfate (Morphine Sulfate) 2 mg IVPUSH Q4H PRN PRN Reason: PAIN LEVEL 7 - 10 Last Admin: 10/12/19 06:42 Dose: 2 mg Pantoprazole Sodium (Protonix Iv) 40 mg IVPB DAILY [facility] Last Admin: 10/12/19 09:43 Dose: 40 mg Timolol Maleate (Timoptic 0.5%) 1 drop OU BID [facility] Last Admin: 10/12/19 09:43 Dose: 1 drop - Objective Vital Signs: Vital Signs Temperature 98.6 F 10/12/19 15:00 Pulse Rate 93 H 10/12/19 15:00 Respiratory Rate 14 10/12/19 16:33 Blood Pressure 119/61 10/12/19 15:00 O2 Sat by Pulse Oximetry (%) 100 10/12/19 07:39 Constitutional: Yes: No Distress, Calm Cardiovascular: Yes: Pulse Irregular Respiratory: Yes: Intubated, Mechanically Ventilated, Rhonchi Gastrointestinal: Yes: Soft, Hypoactive Bowel Sounds Genitourinary: Yes: Berry Present, Hematuria Edema: No Labs: CBC, BMP 10/12/19 06:08 10/12/19 06:08 INR, PTT INR 1.31 (0.83-1.09) H 10/11/19 22:30 - ....Imaging Chest X-ray: Report Reviewed (NAD) EKG: Report Reviewed (Afib @ 51 with PVC, RBBB) Assessment/Plan 10/12/2019 Echo: Normal LV size and fxn LVEF 55-60%, mild LAE, mild MR, TR, AR Problem List - Problems (1) Afib Code(s): I48.91 - UNSPECIFIED ATRIAL FIBRILLATION Qualifiers: Atrial fibrillation type: chronic (2) Anemia Code(s): D64.9 - ANEMIA, UNSPECIFIED (3) Glaucoma Code(s): H40.9 - UNSPECIFIED GLAUCOMA (4) Hyperthyroidism Code(s): E05.90 - THYROTOXICOSIS, UNSP WITHOUT THYROTOXIC CRISIS OR STORM (5) New onset atrial fibrillation Code(s): I48.91 - UNSPECIFIED ATRIAL FIBRILLATION (6) S/P left hemicolectomy Code(s): Z90.49 - ACQUIRED ABSENCE OF OTHER SPECIFIED PARTS OF DIGESTIVE TRACT (7) Acute on chronic diastolic (congestive) heart failure Code(s): I50.33 - ACUTE ON CHRONIC DIASTOLIC (CONGESTIVE) HEART FAILURE (8) Asthma Code(s): J45.909 - UNSPECIFIED ASTHMA, UNCOMPLICATED Qualifiers: Asthma severity: mild Asthma persistence: intermittent Asthma complication type: unspecified Qualified Code(s): J45.20 - Mild intermittent asthma, uncomplicated (9) CAD (coronary artery disease) Code(s): I25.10 - ATHSCL HEART DISEASE OF [place] CORONARY ARTERY W/O ANG PCTRS Qualifiers: Coronary Disease-Associated Artery/Lesion type: [place] artery [place] vs. transplanted heart: [place] heart Associated angina: without angina Qualified Code(s): I25.10 - Atherosclerotic heart disease of [place] coronary artery without angina pectoris (10) HTN (hypertension) Code(s): I10 - ESSENTIAL (PRIMARY) HYPERTENSION Qualifiers: Hypertension type: essential hypertension Qualified Code(s): I10 - Essential (primary) hypertension (11) Parkinson disease Code(s): G20 - PARKINSON'S DISEASE Assessment/Plan 1. Acute respiratory failure 2. Post abdominal hernia repair complicated by small bowel resection and mesh placement 3. Atrial Fibrillation 4. HTN 5. Hyperthyroidism 6. DM 7. Hematuria 8. History of cervical CA s/p resection 9. History of colon CA s/p hemicolectomy PLAN: 1. BD, vent wean O2 to maintain saO2>90%, empiric abx course, off IV steroids 2. Post op care, await bowel function recovery 3. IV Cardizem for rate-control, transition to oral Lopressor 25 bid, losartan 25 qd, methimazole 10 bid once able 4. Off heparin gtt and Eliquis 5 bid pending resolution of hematuria
[2019-10-12] MEDS ORDERED: dilTIAZem HCL 50 MG/10 ML - 10 ML VIAL IVPUSH PRN (17:17)
[2019-10-12] MEDS ORDERED: MIDAZOLAM IN 0.9 % SOD.CHLORID 1 MG/1 ML PLAST..BAG ONE (17:27)
[2019-10-12] MEDS: MIDAZOLAM IN 0.9 % SOD.CHLORID 100 MG/100 ML PLAST..BAG IVPB SCH (17:33)
[2019-10-13] MEDS: INSULIN SLIDING SCALE (NOVOLOG) 1 VIAL SQ SCH ×4 (00:23→18:01)
[2019-10-13] MEDS: LATANOPROST 0.005% OPHTH SOLN 2.5ML BOTTLE OD SCH ×2 (00:27→23:09)
[2019-10-13] MEDS: TIMOLOL 0.5% OPHTHALMIC SOL 5 ML BOTTLE OU SCH ×3 (00:30→23:10)
[2019-10-13] MEDS ORDERED: fentaNYL CITRATE 250 MCG/5 ML VIAL ONE ×4 (01:02→20:05)
[2019-10-13] MEDS ORDERED: DEXTROSE 5%-WATER - 50 ML IVPB ONE ×4 (01:03→23:04)
[2019-10-13] MEDS ORDERED: PIPERACILLIN/TAZOBACTAM 3.375 GM VIAL IVPB ONE ×4 (01:03→23:04)
[2019-10-13] MEDS: PIPERACILLIN/TAZOB 3.375 GM 3.375 GM in DEXTROSE 5%-WATER - 50 ML IVPB SCH ×3 (01:16→18:01)
[2019-10-13] MEDS: methylPREDNISolone NA SUCC 40 MG/1 ML VIAL IVPUSH SCH ×3 (01:17→18:01)
[2019-10-13] MEDS: FENTANYL INJECTION 500 MCG in DEXTROSE 5%-WATER - 90 ML IVPB SCH ×4 (01:20→23:11)
[2019-10-13] MEDS: LACTATED RINGERS SOLUTION 1,000 ML IV SCH (06:49)
--- NOTE | 2019-10-13 06:59 | PN ---
Progress Note (short form) - Note Progress Note: Chief Complaint: Events noted, notes reviewed, remains intubated and sedated, remains in atrial fibrillation rate controlled History of Present Illness: Seen and examined in the ICU. Events noted, notes reviewed, remains intubated and sedated, remains in atrial fibrillation rate controlled - Current Medication List Current Medications Albuterol/Ipratropium (Duoneb -) 1 amp NEB Q4H PRN PRN Reason: SHORTNESS OF BREATH Last Admin: 10/12/19 06:54 Dose: 1 amp Atropine Sulfate (Atropine Injection -) 1 mg IVPUSH ONCE PRN PRN Reason: bradycardia <45 Diltiazem HCl (Cardizem Injection -) 10 mg IVPUSH Q4H PRN PRN Reason: TACHYCARDIA Fluticasone Propionate (Flonase -) 1 spray NS DAILY [facility] Last Admin: 10/12/19 09:55 Dose: Not Given Fentanyl 500 mcg/ Dextrose 100 mls @ 5 mls/hr IVPB TITR [facility]; Protocol Last Admin: 10/13/19 04:00 Dose: 100 mcg/hr, 20 mls/hr Piperacillin Sod/Tazobactam (Sod 3.375 gm/ Dextrose) 50 mls @ 100 mls/hr IVPB Q8H-IV [facility]; Protocol Last Admin: 10/13/19 01:16 Dose: 100 mls/hr Midazolam HCl (Midazolam 100mg/100ml-0.9%Nacl) 100 mg in 100 mls @ 1 mls/hr IVPB TITR [facility]; Protocol Last Admin: 10/12/19 17:33 Dose: 1 mg/hr, 1 mls/hr Insulin Aspart (Novolog Vial Sliding Scale -) 1 vial SQ ACHS [facility]; Protocol Last Admin: 10/13/19 00:23 Dose: Not Given Latanoprost (Xalatan 0.005% Eye Drops -) 1 drop OD HS [facility] Last Admin: 10/13/19 00:27 Dose: 1 drop Losartan Potassium (Cozaar -) 25 mg GT DAILY [facility] Last Admin: 10/10/19 16:45 Dose: Not Given Methylprednisolone Sodium Succinate (Solu-Medrol -) 40 mg IVPUSH Q8H-IV [facility] Last Admin: 10/13/19 01:17 Dose: 40 mg Metoprolol Tartrate (Lopressor -) 25 mg PO BID [facility] Last Admin: 10/10/19 16:45 Dose: Not Given Morphine Sulfate (Morphine Sulfate) 2 mg IVPUSH Q4H PRN PRN Reason: PAIN LEVEL 7 - 10 Last Admin: 10/12/19 06:42 Dose: 2 mg Pantoprazole Sodium (Protonix Iv) 40 mg IVPB DAILY [facility] Last Admin: 10/12/19 09:43 Dose: 40 mg Timolol Maleate (Timoptic 0.5%) 1 drop OU BID [facility] Last Admin: 10/13/19 00:30 Dose: 1 drop Review of Systems Unable to obtain- Intubated and sedated` - Objective Vital Signs: Last Vital Signs Temp Pulse Resp BP Pulse Ox 98.2 F 80 18 104/60 98 10/13/19 06:00 10/13/19 06:00 10/13/19 06:00 10/13/19 06:00 10/13/19 00:18 Intake & Output 10/10/19 10/11/19 10/12/19 10/13/19 23:59 23:59 23:59 23:59 Intake Total 3518 1846 829 Output Total 1480 4540 1010 330 Balance 2038 -2694 -181 -330 Weight 186 lb Neck: Supple Negative JVD No Bruit Respiratory: Scattered Rhonchi Bilaterally Cardiovascular: S1 S2 Irregularly Irregular Gastrointestinal: Soft Benign Normal Bowel Sounds Ext: No Edema Labs: CBC, BMP 10/13/19 06:15 10/13/19 06:15 CBC, BMP 10/12/19 06:08 10/12/19 06:08 Hepatic Panel Total Bilirubin 0.3 mg/dL (0.2-1) 10/12/19 06:08 AST 10 U/L (15-37) L 10/12/19 06:08 ALT 35 U/L (13-61) 10/12/19 06:08 Alkaline Phosphatase 63 U/L (45-117) 10/12/19 06:08 Albumin 2.7 g/dl (3.4-5.0) L 10/12/19 06:08 INR, PTT INR 1.31 (0.83-1.09) H 10/11/19 22:30 ABG Results ABG pH 7.41 (7.35-7.45) 10/12/19 08:00 ABG pCO2 at Pt Temp 42.7 mmHg (35-45) 10/12/19 08:00 ABG pO2 at Pt Temp 144 mmHg (80-100) H 10/12/19 08:00 ABG HCO3 26.3 mmol/L (22-27) 10/12/19 08:00 ABG O2 Sat (Measured) 99.1 % (95-98) H 10/12/19 08:00 ABG O2 Content 18.3 % vol 10/12/19 08:00 ABG Base Excess 1.9 meq/l (-2-2) 10/12/19 08:00 Assessment/Plan ASSESSMENT: 1. Acute respiratory failure- remains intubated- sedated 2. Post abdominal hernia repair complicated by small bowel resection and mesh placement 3. Persistent atrial Fibrillation [id number] score of 5 currently off of A/C therapy 4. HTN 5. DM 6. Hyperthyroidism 7. Acute renal insufficiency 8. Hematuria 9. History of cervical carcinoma post resection 10. History of colon carcinoma post javi-colectomy PLAN: 1. Ventilator management as per critical care team 2. IV Cardizem as needed for rate control 3. Once PO intake is resumed reinitiate Lopressor and Cozaar therapies 4. Resume A/C with Heparin or Lovenox pending resumption of PO intake- Eliquis once PO intake- await resolution of Hematuria 5. Antibiotics as per the primary team Meron Perera M.D.
--- NOTE | 2019-10-13 07:14 | PN ---
Physical Exam: SUBJECTIVE: Patient seen and examined by the bedside. Intubated, sedated. Hands and feet appear to be mildly edematous. OBJECTIVE: Vital Signs Period Temp Pulse Resp BP Sys/Ugarte Pulse Ox Last 24 Hr 98.2 F-98.8 F 36-97 14-18 84-121/52-67 98-100 GENERAL: Intubated, unresponsive to verbal commands, but moved arms when suctioning HEAD: Normal with no signs of trauma EYES: [place] NECK: Diffuse swelling LUNGS: Diminshed breath sounds B/L, no crackles or wheezes HEART: Irregular rate and rhythm, no murmur ABDOMEN: Soft, non tender, dressing with B/L EDMUNDO drains LOWER EXTREMITIES: 2+ dorsal pedal pulses, warm, well-perfused, pitting edema 1 + B/L NEUROLOGICAL: Sedated SKIN: Warm, dry, normal turgor CBC, BMP 10/13/19 06:15 10/13/19 06:15 Current Medications Albuterol/Ipratropium (Duoneb -) 1 amp NEB Q4H PRN PRN Reason: SHORTNESS OF BREATH Last Admin: 10/12/19 06:54 Dose: 1 amp Atropine Sulfate (Atropine Injection -) 1 mg IVPUSH ONCE PRN PRN Reason: bradycardia <45 Diltiazem HCl (Cardizem Injection -) 10 mg IVPUSH Q4H PRN PRN Reason: TACHYCARDIA Fluticasone Propionate (Flonase -) 1 spray NS DAILY [facility] Last Admin: 10/12/19 09:55 Dose: Not Given Fentanyl 500 mcg/ Dextrose 100 mls @ 5 mls/hr IVPB TITR [facility]; Protocol Last Admin: 10/13/19 04:00 Dose: 100 mcg/hr, 20 mls/hr Piperacillin Sod/Tazobactam (Sod 3.375 gm/ Dextrose) 50 mls @ 100 mls/hr IVPB Q8H-IV [facility]; Protocol Last Admin: 10/13/19 01:16 Dose: 100 mls/hr Midazolam HCl (Midazolam 100mg/100ml-0.9%Nacl) 100 mg in 100 mls @ 1 mls/hr IVPB TITR [facility]; Protocol Last Admin: 10/12/19 17:33 Dose: 1 mg/hr, 1 mls/hr Potassium Phosphate 30 mm/ (Dextrose) 260 mls @ 43.333 mls/hr IVPB ONCE ONE Stop: 10/13/19 16:29 Insulin Aspart (Novolog Vial Sliding Scale -) 1 vial SQ ACHS [facility]; Protocol Last Admin: 10/13/19 08:50 Dose: Not Given Latanoprost (Xalatan 0.005% Eye Drops -) 1 drop OD HS [facility] Last Admin: 10/13/19 00:27 Dose: 1 drop Methylprednisolone Sodium Succinate (Solu-Medrol -) 40 mg IVPUSH Q8H-IV [facility] Last Admin: 10/13/19 01:17 Dose: 40 mg Metoprolol Tartrate (Lopressor -) 25 mg PO BID [facility] Last Admin: 10/10/19 16:45 Dose: Not Given Morphine Sulfate (Morphine Sulfate) 2 mg IVPUSH Q4H PRN PRN Reason: PAIN LEVEL 7 - 10 Last Admin: 10/12/19 06:42 Dose: 2 mg Pantoprazole Sodium (Protonix Iv) 40 mg IVPB DAILY [facility] Last Admin: 10/12/19 09:43 Dose: 40 mg Timolol Maleate (Timoptic 0.5%) 1 drop OU BID [facility] Last Admin: 10/13/19 00:30 Dose: 1 drop ASSESSMENT/PLAN: 84 y/o/f with PMH of HTN, HLD, Afib(on Eliquis), HFpEF, Hyperthyroidism, Parkinson's Disease, Asthma and Colon CA (s/p hemicolectomy 02/2019) presents after complicated ambulatory inguinal hernia repair surgery, POD #5. Patient was extubated on 10/10 but needed to be intubated again on 10/12 for respiratory distress. #Neurology - Intubated, sedated on Fentanyl, Midazolam #Pulmonary - Extubated 10/10. Re-intubated on 10/12 for respiratory distress with bradycardia. ET tube adjusted after xray. - Standing duonebs, Albuterol PRN - Solu Medrol 40mg IV Q8 - CXR: widened mediastinum, large heart, increased markings in left base, unchanged since yesterday - CT neck soft tissue ordered for further evaluation of airway. Neck XR - some soft tissue prominence. limited exam - Hx. of Asthma, will monitor for signs of exacerbation #Cardiovascular - Episodic bradycardia: Atropine 1mg PRN - AFib: Cardizem 10mg IV Q4 PRN for rate control, Lopressor IV D/Misha - Hx of HTN, home meds Lopressor and Losartan held as per surgery #GI - POD#5 of inguinal hernia repair with enterotomy and mesh placement - NG Tube in place #ID - Zosyn Day 2 as per ID - Blood cx: No growth after 24 hours #Heme/Onc - Hg 10.7 -> 9.6, repeat CBC ordered for 4PM today - Consult placed due to history of Colon CA (last PET done 3 weeks ago). - F/U outpatient with Dr. Walton #Endo - Hold PO Methimazole as Pt. is NPO s/p enterotomy, (Methimazole can be crushed after discussion with Pharmacy), no IV equivalents in hospital. - Hx of DM, on Novolog SS #Renal - Monitor I/Os #FEN - Holding fluids due to peripheral edema - NPO, will confirm with surgery if they still want her on strict NPO - Phos 1.5, repleted with 30 mmol KPhos #DVT PPX - SCDs,off heparin due to hematuria - Protonix #Dispo - Continue ICU monitoring, will Visit type - Emergency Visit Emergency Visit: Yes ED Registration Date: 10/08/19 Care time: The patient presented to the Emergency Department on the above date and was hospitalized for further evaluation of their emergent condition. - New Patient This patient is new to me today: No - Critical Care Critical Care patient: Yes Total Critical Care Time (in minutes): 37 Critical Care Statement: The care of this patient involved high complexity decision making to prevent further life threatening deterioration of the patient 's condition and/or to evaluate & treat vital organ system(s) failure or risk of failure. ATTENDING PHYSICIAN STATEMENT I saw and evaluated the patient. I reviewed the resident's note and discussed the case with the resident. I agree with the resident's findings and plan as documented. SUBJECTIVE: OBJECTIVE: ASSESSMENT AND PLAN:
[2019-10-13 07:21] LABS: BASO % 0.1 % (0-2.0); HEMATOCRIT 29.3 % (32.4-45.2); HEMOGLOBIN 9.6 GM/dL (10.7-15.3); LYMPH % 7.1 % (8-40); MCH 28.6 pg (25.7-33.7); MCHC 32.9 g/dl (32.0-36.0); MEAN CELL VOLUME 86.9 fl (80-96); MEAN PLT VOLUME 7.6 fl (7.5-11.1); MONO % 5.9 % (3.8-10.2); NEUT % 86.9 % (42.8-82.8); PLATELET COUNT 200 K/MM3 (134-434); RBC 3.37 M/mm3 (3.60-5.2); RDW 16.9 % (11.6-15.6); WHITE BLOOD COUNT 6.2 K/mm3 (4.0-10.0)
[2019-10-13 07:48] LABS: ALBUMIN 2.3 g/dl (3.4-5.0); BILIRUBIN,TOTAL 0.6 mg/dL (0.2-1); BLOOD UREA NITROGEN 34.7 mg/dL (7-18); CREATININE 1.1 mg/dL (0.55-1.3); MAGNESIUM 2.6 mg/dL (1.8-2.4); PHOSPHOROUS 1.5 mg/dL (2.5-4.9); POTASSIUM 3.7 mmol/L (3.5-5.1); TOT PROT 4.9 g/dl (6.4-8.2)
--- NOTE | 2019-10-13 09:26 | PN ---
Progress Note, Physician Chief Complaint: on vent afebrile hematuria clearing up; sedated; episodes of bradycardia and low BP - ARB stopped; on BB low dose (held if HR<60) NGT feeds continued arnav Calix at bedside - Current Medication List Current Medications: Active Medications Albuterol/Ipratropium (Duoneb -) 1 amp NEB Q4H PRN PRN Reason: SHORTNESS OF BREATH Last Admin: 10/12/19 06:54 Dose: 1 amp Atropine Sulfate (Atropine Injection -) 1 mg IVPUSH ONCE PRN PRN Reason: bradycardia <45 Diltiazem HCl (Cardizem Injection -) 10 mg IVPUSH Q4H PRN PRN Reason: TACHYCARDIA Fluticasone Propionate (Flonase -) 1 spray NS DAILY [facility] Last Admin: 10/12/19 09:55 Dose: Not Given Fentanyl 500 mcg/ Dextrose 100 mls @ 5 mls/hr IVPB TITR [facility]; Protocol Last Admin: 10/13/19 04:00 Dose: 100 mcg/hr, 20 mls/hr Piperacillin Sod/Tazobactam (Sod 3.375 gm/ Dextrose) 50 mls @ 100 mls/hr IVPB Q8H-IV [facility]; Protocol Last Admin: 10/13/19 01:16 Dose: 100 mls/hr Midazolam HCl (Midazolam 100mg/100ml-0.9%Nacl) 100 mg in 100 mls @ 1 mls/hr IVPB TITR [facility]; Protocol Last Admin: 10/12/19 17:33 Dose: 1 mg/hr, 1 mls/hr Insulin Aspart (Novolog Vial Sliding Scale -) 1 vial SQ ACHS [facility]; Protocol Last Admin: 10/13/19 08:50 Dose: Not Given Latanoprost (Xalatan 0.005% Eye Drops -) 1 drop OD HS [facility] Last Admin: 10/13/19 00:27 Dose: 1 drop Methylprednisolone Sodium Succinate (Solu-Medrol -) 40 mg IVPUSH Q8H-IV [facility] Last Admin: 10/13/19 01:17 Dose: 40 mg Metoprolol Tartrate (Lopressor -) 25 mg PO BID [facility] Last Admin: 10/10/19 16:45 Dose: Not Given Morphine Sulfate (Morphine Sulfate) 2 mg IVPUSH Q4H PRN PRN Reason: PAIN LEVEL 7 - 10 Last Admin: 10/12/19 06:42 Dose: 2 mg Pantoprazole Sodium (Protonix Iv) 40 mg IVPB DAILY [facility] Last Admin: 10/12/19 09:43 Dose: 40 mg Timolol Maleate (Timoptic 0.5%) 1 drop OU BID [facility] Last Admin: 10/13/19 00:30 Dose: 1 drop - Objective Vital Signs: Vital Signs Temperature 98.2 F 10/13/19 06:00 Pulse Rate 61 10/13/19 08:00 Respiratory Rate 14 10/13/19 09:09 Blood Pressure 105/64 10/13/19 08:00 O2 Sat by Pulse Oximetry (%) 98 10/13/19 00:18 Constitutional: Yes: No Distress Eyes: Yes: Conjunctiva Clear HENT: Yes: Atraumatic Neck: Yes: Supple Cardiovascular: No: Regular Rate and Rhythm Respiratory: Yes: Diminished Gastrointestinal: Yes: Soft, Other (dressing / surgery). No: Tenderness Genitourinary: Yes: Berry Present Musculoskeletal: No: Joint Stiffness, Joint Swelling Extremities: No: Cold, Cool Edema: Yes (hands ) Integumentary: No: Rash, Venous Stasis Changes Neurological: No: Alert Psychiatric: No: Alert Labs: CBC, BMP 10/13/19 06:15 10/13/19 06:15 INR, PTT INR 1.31 (0.83-1.09) H 10/11/19 22:30 - ....Imaging Other: Report Reviewed Assessment/Plan 83 yo F h/of Colon Ca (s/p Hemicolectomy, 02/2019), HTN, HLD, Afib ( on Eliquis) , Diastolic CHF, HLD, Hyperthyroidism s/p open complicated elective incisional hernia repair, adhesions, s/p incidental enterotomy and partial small bowel resection / reanastomosis and mesh placement, difficult airway access, airway swelling, intubated postop for airway protection admitted go ICU respiratory failure reintubated hematuria after IV heparin - hold AC for now if no more bleeding to restart IV heparin without bolus bradycardia hypoTA cardiology f/u prerenal azotemia and low electrolytes - per ICU, also asked renal input r/o sepsis seen by ID - ATB per ID restart iv steroids for airway swelling and wheezing IVF; cont meds; iv heparin PTT checks cardiology f/u; BP control; DVT PFX, decubs, aspiration PFX; f/u labs; I/O Berry; prognosis guarded d.w staff d/w pts' daughter Yogi at bedside prognosis guarded t time 40 min
--- NOTE | 2019-10-13 09:57 | PN ---
Teaching Attending Note Name of Resident: Aj Chaudhary ATTENDING PHYSICIAN STATEMENT I saw and evaluated the patient. I reviewed the resident's note and discussed the case with the resident. I agree with the resident's findings and plan as documented. SUBJECTIVE: Pt seen and examined in the ICU. Remains intubated, sedated. +cuff leak today. OBJECTIVE: Vital Signs Period Temp Pulse Resp BP Sys/Ugarte Pulse Ox Last 24 Hr 98.2 F-98.8 F 36-97 14-18 84-119/52-67 98 Intake & Output 10/10/19 10/11/19 10/12/19 10/13/19 23:59 23:59 23:59 23:59 Intake Total 3518 1846 829 204 Output Total 1480 4540 1010 860 Balance 2038 -2694 -181 -656 Weight 84.368 kg 83.552 kg Gen: intubated, sedated Heart: RRR Lung: decreased breath sounds at the bases Abd: soft, nontender Ext: no edema CBC, BMP 10/13/19 06:15 10/13/19 06:15 Active Medications Albuterol/Ipratropium (Duoneb -) 1 amp NEB Q4H PRN PRN Reason: SHORTNESS OF BREATH Last Admin: 10/12/19 06:54 Dose: 1 amp Atropine Sulfate (Atropine Injection -) 1 mg IVPUSH ONCE PRN PRN Reason: bradycardia <45 Diltiazem HCl (Cardizem Injection -) 10 mg IVPUSH Q4H PRN PRN Reason: TACHYCARDIA Fluticasone Propionate (Flonase -) 1 spray NS DAILY [facility] Last Admin: 10/12/19 09:55 Dose: Not Given Fentanyl 500 mcg/ Dextrose 100 mls @ 5 mls/hr IVPB TITR [facility]; Protocol Last Admin: 10/13/19 04:00 Dose: 100 mcg/hr, 20 mls/hr Piperacillin Sod/Tazobactam (Sod 3.375 gm/ Dextrose) 50 mls @ 100 mls/hr IVPB Q8H-IV [facility]; Protocol Last Admin: 10/13/19 01:16 Dose: 100 mls/hr Midazolam HCl (Midazolam 100mg/100ml-0.9%Nacl) 100 mg in 100 mls @ 1 mls/hr IVPB TITR [facility]; Protocol Last Admin: 10/12/19 17:33 Dose: 1 mg/hr, 1 mls/hr Potassium Phosphate 30 mm/ (Dextrose) 260 mls @ 43.333 mls/hr IVPB ONCE ONE Stop: 10/13/19 16:29 Insulin Aspart (Novolog Vial Sliding Scale -) 1 vial SQ ACHS [facility]; Protocol Last Admin: 10/13/19 08:50 Dose: Not Given Latanoprost (Xalatan 0.005% Eye Drops -) 1 drop OD HS [facility] Last Admin: 10/13/19 00:27 Dose: 1 drop Methylprednisolone Sodium Succinate (Solu-Medrol -) 40 mg IVPUSH Q8H-IV [facility] Last Admin: 10/13/19 01:17 Dose: 40 mg Metoprolol Tartrate (Lopressor -) 25 mg PO BID [facility] Last Admin: 10/10/19 16:45 Dose: Not Given Morphine Sulfate (Morphine Sulfate) 2 mg IVPUSH Q4H PRN PRN Reason: PAIN LEVEL 7 - 10 Last Admin: 10/12/19 06:42 Dose: 2 mg Pantoprazole Sodium (Protonix Iv) 40 mg IVPB DAILY [facility] Last Admin: 10/12/19 09:43 Dose: 40 mg Timolol Maleate (Timoptic 0.5%) 1 drop OU BID [facility] Last Admin: 10/13/19 00:30 Dose: 1 drop ASSESSMENT AND PLAN: s/p Incisional Hernia Repair with mesh/SB resection s/p Acute Respiratory Failure Atrial Fibrillation HTN DM Hyperthyroidism h/o Colon Ca h/o Cervical Ca - continue steroids - CT neck today - pain control - incentive spirometry - rate control - continue anticoagulation - PO per surgery - daily sedation vacations to assess mental status - spontaneous breathing trials as tolerated - DVT/GI prophylaxis - continue ICU monitoring critical care time spent in reviewing chart, evaluating patient and formulating plan 35 min
[2019-10-13] MEDS: FLUTICASONE PROP 0.05% 16 GM NASAL SPRAY NS SCH (10:08)
[2019-10-13] MEDS: PANTOPRAZOLE SODIUM 40 MG VIAL IVPB SCH (10:08)
[2019-10-13] MEDS ORDERED: POTASSIUM PHOSPHATE 30 MM in DEXTROSE 5%-WATER - 250 ML IVPB ONE (10:30)
--- NOTE | 2019-10-13 11:24 | PN ---
Progress Note, Physician History of Present Illness: AWAKE ON VENTILATOR OPENS EYES AFEBRILE WBC IMPROVED BC NO GROWTH - Current Medication List Current Medications: Active Medications Albuterol/Ipratropium (Duoneb -) 1 amp NEB Q4H PRN PRN Reason: SHORTNESS OF BREATH Last Admin: 10/12/19 06:54 Dose: 1 amp Atropine Sulfate (Atropine Injection -) 1 mg IVPUSH ONCE PRN PRN Reason: bradycardia <45 Diltiazem HCl (Cardizem Injection -) 10 mg IVPUSH Q4H PRN PRN Reason: TACHYCARDIA Fluticasone Propionate (Flonase -) 1 spray NS DAILY [facility] Last Admin: 10/12/19 09:55 Dose: Not Given Fentanyl 500 mcg/ Dextrose 100 mls @ 5 mls/hr IVPB TITR [facility]; Protocol Last Admin: 10/13/19 04:00 Dose: 100 mcg/hr, 20 mls/hr Piperacillin Sod/Tazobactam (Sod 3.375 gm/ Dextrose) 50 mls @ 100 mls/hr IVPB Q8H-IV [facility]; Protocol Last Admin: 10/13/19 01:16 Dose: 100 mls/hr Midazolam HCl (Midazolam 100mg/100ml-0.9%Nacl) 100 mg in 100 mls @ 1 mls/hr IVPB TITR [facility]; Protocol Last Admin: 10/12/19 17:33 Dose: 1 mg/hr, 1 mls/hr Potassium Phosphate 30 mm/ (Dextrose) 260 mls @ 43.333 mls/hr IVPB ONCE ONE Stop: 10/13/19 16:29 Insulin Aspart (Novolog Vial Sliding Scale -) 1 vial SQ ACHS [facility]; Protocol Last Admin: 10/13/19 08:50 Dose: Not Given Latanoprost (Xalatan 0.005% Eye Drops -) 1 drop OD HS [facility] Last Admin: 10/13/19 00:27 Dose: 1 drop Methylprednisolone Sodium Succinate (Solu-Medrol -) 40 mg IVPUSH Q8H-IV [facility] Last Admin: 10/13/19 01:17 Dose: 40 mg Metoprolol Tartrate (Lopressor -) 25 mg PO BID [facility] Last Admin: 10/10/19 16:45 Dose: Not Given Morphine Sulfate (Morphine Sulfate) 2 mg IVPUSH Q4H PRN PRN Reason: PAIN LEVEL 7 - 10 Last Admin: 10/12/19 06:42 Dose: 2 mg Pantoprazole Sodium (Protonix Iv) 40 mg IVPB DAILY [facility] Last Admin: 10/12/19 09:43 Dose: 40 mg Timolol Maleate (Timoptic 0.5%) 1 drop OU BID [facility] Last Admin: 10/13/19 00:30 Dose: 1 drop - Objective Vital Signs: Vital Signs Temperature 98.2 F 10/13/19 06:00 Pulse Rate 61 10/13/19 08:00 Respiratory Rate 14 10/13/19 09:09 Blood Pressure 105/64 10/13/19 08:00 O2 Sat by Pulse Oximetry (%) 98 10/13/19 00:18 Constitutional: Yes: No Distress Eyes: Yes: Conjunctiva Clear Cardiovascular: Yes: Regular Rate and Rhythm, S1, S2 Respiratory: Yes: Mechanically Ventilated Gastrointestinal: Yes: Soft, Abdomen, Obese, Other (MIDLINE SURGICAL WOUND NO ERYTHEMA/ DRAINAGE + EDMUNDO DRAINS). No: Tenderness Edema: Yes Labs: CBC, BMP 10/13/19 06:15 10/13/19 06:15 INR, PTT INR 1.31 (0.83-1.09) H 10/11/19 22:30 Assessment/Plan R/O HCAP S/P INCISIONAL HERNIA REPAIR LEUKOCYTOSIS RESOLVED CONTINUE EMPIRIC ZOSYN VENTILATORY SUPPORT
--- NOTE | 2019-10-13 12:17 | PN ---
Progress Note (short form) - Note Progress Note: Attending Surgeon POD #5 Remains in ICU on vent and sedated; no major issues over last 24 hours; reportedly passing flatus VSS AF abdo-soft; incision c/d/i w/lucius in place; drains serosanguinous CXR reviewed UO adequate IMP: improving PLAN: CT scan of neck and plan to wean to extubate and start trial of clear liquids via NGT; continue as per ICU; d/w resident staff Dr. Kinsey Ann. John Alvarado MD FACS
--- NOTE | 2019-10-13 14:03 | CON.NEP ---
Consult Consult Specialty:: Nephrology Referred by:: dr singh Reason for Consultation:: renal failure - History of Present Illness Chief Complaint: sepsis post op History of Present Illness: s/p ambulatory surgery to repair incisional abdominal hernia/s/p mesh s/p sb resection developed resp failure on VENT/poss HCAP/ on empiric zosyn upper airway swelling sepsis/leukocytosis referred for eval of acute prerenal azotemia 10/09/19 10/13/19 06:25 06:15 BUN 17.1 34.7 H Creatinine 0.8 1.1 Calcium 8.0 L Phosphorus 1.5 L Magnesium 2.6 H Albumin 2.5 L 2.3 L PMHx Atrial Fibrillation on eliquis/ HFpEF Hyperthyroidism/thyromegaly Persistent atrial Fibrillation [id number] score of 5 HTN DM Hyperthyroidism Acute renal insufficiency s/p Hematuria H/o cervical carcinoma post resection H/o colon carcinoma post javi-colectomy 02/2019 Parkinson's Disease Asthma Mediastinal Lymphadenopathy - 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 Cardio/Vascular: Yes: AFIB, HTN Pulmonary: Yes: Asthma Gastrointestinal: Yes: Cancer (colon) Endocrine: Yes: Hyperthyroidism Additional Medical History: Glaucoma - Past Surgical History Past Surgical History: Yes: Colectomy, Hysterectomy - Alcohol/Substance Use Hx Alcohol Use: No History of Substance Use: reports: None - Smoking History Smoking history: Never smoked Have you smoked in the past 12 months: No Aproximately how many cigarettes per day: 0 - Social History ADL: Family Assistance History of Recent Travel: No Home Medications - Allergies Allergies/Adverse Reactions: Allergies Allergy/AdvReac Type Severity Reaction Status Date / Time No Known Allergies Allergy Verified 10/05/19 17:29 - Home Medications Home Medications: Ambulatory Orders Bimatoprost [Lumigan] 1 drop OU DAILY 04/09/17 Brimonidine Tartrate/Timolol [Combigan 0.2%-0.5% Eye Drops] 5 ml OU BID Latanoprost 0.005% Eye Drops [Xalatan 0.005% Eye Drops -] 1 drop HS 02/14/19 Methimazole 10 mg PO BID 02/14/19 Apixaban [Eliquis -] 5 mg PO BID tablet 03/02/19 Ascorbic Acid [Vitamin C -] 500 mg PO DAILY tablet 03/02/19 Losartan Potassium [Cozaar -] 25 mg PO DAILY tablet 03/02/19 Metoprolol Tartrate [Lopressor -] 50 mg PO BID tablet 03/02/19 Acetaminophen [Tylenol .Regular Strength -] 650 mg PO Q6H PRN tablet 03/16/19 Timolol 0.5% [Timoptic 0.5%] 1 drop OU BID drops 03/16/19 Nitroglycerin Sublingual [Nitrostat -] 0.4 mg SL Q5M PRN tab 03/20/19 Albuterol 0.083% Nebulizer Kathrin [Ventolin 0.083% Nebulizer Soln -] 1 amp NEB Q6H PRN amp 03/29/19 Meclizine HCl [Antivert -] 25 mg PO TID PRN 5 Days #15 tablet 05/11/19 Alendronate Sodium [Fosamax] 1 tab PO WEEKLY 10/08/19 Calcium (Oyster Shell) [Os-Dioni 500Mg -] 500 mg PO DAILY 10/08/19 Ertapenem Sodium [Invanz] 1 gm IJ DAILY 10/08/19 Fluticasone Prop 0.05% Nasal [Flonase -] 1 - 2 spray NS DAILY 10/08/19 Mirabegron [Myrbetriq] 50 mg PO DAILY 10/08/19 Nephrology Consult - Height Height: 5 ft - Weight Weight: 184 lb 3.2 oz - BMI Body Mass Index (BMI): 35.9 - Lab Results CBC,BMP: CBC, BMP 10/13/19 06:15 10/13/19 06:15 Anion Gap: Anion Gap Anion Gap 5 MMOL/L (8-16) L 10/13/19 06:15 - Physical Examination Vital Signs: Vital Signs Temperature 98.2 F 10/13/19 06:00 Pulse Rate 61 10/13/19 08:00 Respiratory Rate 14 10/13/19 11:52 Blood Pressure 105/64 10/13/19 08:00 O2 Sat by Pulse Oximetry (%) 98 10/13/19 00:18 Assessment/Plan 10/13/19 06:15 BUN 34.7 H Creatinine 1.1 Calcium 8.0 L Phosphorus 1.5 L Magnesium 2.6 H Albumin 2.3 L IMP- Prerenal azotemia Hypocalcemia/hypo albuminemia hypophosphatemia hypermagnesemia Hypotensive earlier May be started on feeds Plan- volume will be repleted with tube feeding phosphorus will be repleted by resumption of feeding monitor urine output
[2019-10-13 15:36] LABS: BASO % 0.2 % (0-2.0); HEMATOCRIT 30.3 % (32.4-45.2); HEMOGLOBIN 9.8 GM/dL (10.7-15.3); LYMPH % 5.8 % (8-40); MCH 28.2 pg (25.7-33.7); MCHC 32.4 g/dl (32.0-36.0); MEAN PLT VOLUME 7.7 fl (7.5-11.1); MONO % 5.4 % (3.8-10.2); NEUT % 88.6 % (42.8-82.8); PLATELET COUNT 195 K/MM3 (134-434); RBC 3.48 M/mm3 (3.60-5.2); RDW 16.9 % (11.6-15.6); WHITE BLOOD COUNT 6.7 K/mm3 (4.0-10.0)
[2019-10-13] MEDS: MIDAZOLAM IN 0.9 % SOD.CHLORID 100 MG/100 ML PLAST..BAG IVPB SCH (23:05)
[2019-10-14] MEDS ORDERED: fentaNYL CITRATE 250 MCG/5 ML VIAL ONE ×2 (00:51→08:19)
[2019-10-14] MEDS: INSULIN SLIDING SCALE (NOVOLOG) 1 VIAL SQ SCH ×4 (01:04→17:55)
[2019-10-14] MEDS: PIPERACILLIN/TAZOB 3.375 GM 3.375 GM in DEXTROSE 5%-WATER - 50 ML IVPB SCH ×3 (01:05→17:54)
[2019-10-14] MEDS: methylPREDNISolone NA SUCC 40 MG/1 ML VIAL IVPUSH SCH ×3 (01:06→17:54)
--- NOTE | 2019-10-14 07:16 | PN ---
Progress Note (short form) - Note Progress Note: Chief Complaint: Events noted, notes reviewed, remains intubated and sedated, remains in atrial fibrillation rate controlled, generalized edema noted, family member at the bedside History of Present Illness: Seen and examined in the ICU. Events noted, notes reviewed, remains intubated and sedated, remains in atrial fibrillation rate controlled, generalized edema noted, family member at the bedside - Current Medication List Current Medications Albuterol/Ipratropium (Duoneb -) 1 amp NEB Q4H PRN PRN Reason: SHORTNESS OF BREATH Last Admin: 10/12/19 06:54 Dose: 1 amp Atropine Sulfate (Atropine Injection -) 1 mg IVPUSH ONCE PRN PRN Reason: bradycardia <45 Diltiazem HCl (Cardizem Injection -) 10 mg IVPUSH Q4H PRN PRN Reason: TACHYCARDIA Fluticasone Propionate (Flonase -) 1 spray NS DAILY [facility] Last Admin: 10/13/19 10:08 Dose: Not Given Fentanyl 500 mcg/ Dextrose 100 mls @ 5 mls/hr IVPB TITR [facility]; Protocol Last Admin: 10/13/19 23:11 Dose: 100 mcg/hr, 20 mls/hr Piperacillin Sod/Tazobactam (Sod 3.375 gm/ Dextrose) 50 mls @ 100 mls/hr IVPB Q8H-IV [facility]; Protocol Last Admin: 10/14/19 01:05 Dose: 100 mls/hr Midazolam HCl (Midazolam 100mg/100ml-0.9%Nacl) 100 mg in 100 mls @ 1 mls/hr IVPB TITR [facility]; Protocol Last Admin: 10/13/19 23:05 Dose: 4 mg/hr, 4 mls/hr Insulin Aspart (Novolog Vial Sliding Scale -) 1 vial SQ ACHS [facility]; Protocol Last Admin: 10/14/19 06:37 Dose: 2 units Latanoprost (Xalatan 0.005% Eye Drops -) 1 drop OD HS [facility] Last Admin: 10/13/19 23:09 Dose: 1 drop Methylprednisolone Sodium Succinate (Solu-Medrol -) 40 mg IVPUSH Q8H-IV [facility] Last Admin: 10/14/19 01:06 Dose: 40 mg Metoprolol Tartrate (Lopressor -) 25 mg PO BID [facility] Last Admin: 10/10/19 16:45 Dose: Not Given Pantoprazole Sodium (Protonix Iv) 40 mg IVPB DAILY [facility] Last Admin: 10/13/19 10:08 Dose: 40 mg Timolol Maleate (Timoptic 0.5%) 1 drop OU BID [facility] Last Admin: 10/13/19 23:10 Dose: 1 drop Review of Systems Unable to obtain- Intubated and sedated` - Objective Vital Signs: Last Vital Signs Temp Pulse Resp BP Pulse Ox 97.2 F L 56 L 18 111/66 98 10/14/19 06:00 10/14/19 06:00 10/14/19 06:56 10/14/19 06:00 10/13/19 18:16 Intake & Output 10/11/19 10/12/19 10/13/19 10/14/19 23:59 23:59 23:59 23:59 Intake Total 1846 829 754 465 Output Total 4540 1010 1150 810 Balance -2694 -181 -396 -345 Weight 184 lb 3.2 oz 184 lb 3.2 oz 185 lb 14.4 oz Neck: Supple Negative JVD No Bruit Respiratory: Scattered Rhonchi Bilaterally Cardiovascular: S1 S2 Irregularly Irregular Gastrointestinal: Soft Benign Normal Bowel Sounds Ext: Edema Labs: Pending AM blood test CBC, BMP 10/13/19 15:20 10/13/19 06:15 Hepatic Panel Total Bilirubin 0.6 mg/dL (0.2-1) 10/13/19 06:15 AST 9 U/L (15-37) L 10/13/19 06:15 ALT 25 U/L (13-61) 10/13/19 06:15 Alkaline Phosphatase 53 U/L (45-117) 10/13/19 06:15 Albumin 2.3 g/dl (3.4-5.0) L 10/13/19 06:15 INR, PTT INR 1.31 (0.83-1.09) H 10/11/19 22:30 ABG Results ABG pH 7.41 (7.35-7.45) 10/12/19 08:00 ABG pCO2 at Pt Temp 42.7 mmHg (35-45) 10/12/19 08:00 ABG pO2 at Pt Temp 144 mmHg (80-100) H 10/12/19 08:00 ABG HCO3 26.3 mmol/L (22-27) 10/12/19 08:00 ABG O2 Sat (Measured) 99.1 % (95-98) H 10/12/19 08:00 ABG O2 Content 18.3 % vol 10/12/19 08:00 ABG Base Excess 1.9 meq/l (-2-2) 10/12/19 08:00 Assessment/Plan ASSESSMENT: 1. Acute respiratory failure- remains intubated- sedated 2. Post abdominal hernia repair complicated by small bowel resection and mesh placement 3. Persistent atrial Fibrillation [id number] score of 5 currently off of A/C therapy 4. Diastolic LV dysfunction with clinical class 0 NYHA classification LV failure , generalized edema 5. HTN 6. DM 7. Hyperthyroidism 8. Acute renal insufficiency 9. Hematuria, resolved 10. History of cervical carcinoma post resection 11. History of colon carcinoma post javi-colectomy PLAN: 1. Ventilator management as per critical care team 2. IV Cardizem as needed for rate control 3. Reinitiate Lopressor and Cozaar therapies 4. Resume A/C with Heparin and eventually with Eliquis, provided no further bleed/hematuria 5. Pending morning chest x-ray consider prn diuretic utilization 6. Antibiotics as per the primary team Meron Perera M.D.
[2019-10-14] MEDS ORDERED: HEPARIN NA (PORCINE) 5,000 UNITS/ML 1ML VIAL IVPUSH PRN ×2 (07:30)
[2019-10-14 07:35] LABS: HEMATOCRIT 29.4 % (32.4-45.2); HEMOGLOBIN 9.6 GM/dL (10.7-15.3); MCH 28.2 pg (25.7-33.7); MCHC 32.8 g/dl (32.0-36.0); MEAN PLT VOLUME 7.9 fl (7.5-11.1); PLATELET COUNT 190 K/MM3 (134-434); RBC 3.41 M/mm3 (3.60-5.2); RDW 16.6 % (11.6-15.6); WHITE BLOOD COUNT 6.1 K/mm3 (4.0-10.0)
[2019-10-14 07:56] LABS: BLOOD UREA NITROGEN 37.8 mg/dL (7-18); CALCIUM 7.8 mg/dL (8.5-10.1); MAGNESIUM 2.6 mg/dL (1.8-2.4); PHOSPHOROUS 2.5 mg/dL (2.5-4.9); POTASSIUM 3.7 mmol/L (3.5-5.1)
[2019-10-14] MEDS: FENTANYL INJECTION 500 MCG in DEXTROSE 5%-WATER - 90 ML IVPB SCH (08:37)
[2019-10-14] MEDS ORDERED: DEXTROSE 5%-WATER - 50 ML IVPB ONE ×2 (09:06→17:44)
[2019-10-14] MEDS ORDERED: PIPERACILLIN/TAZOBACTAM 3.375 GM VIAL IVPB ONE ×2 (09:06→17:44)
[2019-10-14] MEDS: HEPARIN INFUSION - 25,000 UNITS/500 ML INFUS.BAG IVPB SCH (09:48)
[2019-10-14] MEDS: TIMOLOL 0.5% OPHTHALMIC SOL 5 ML BOTTLE OU SCH ×2 (10:04→23:10)
[2019-10-14] MEDS: FLUTICASONE PROP 0.05% 16 GM NASAL SPRAY NS SCH (10:06)
--- NOTE | 2019-10-14 11:19 | PN ---
Teaching Attending Note Name of Resident: Ru Hill ATTENDING PHYSICIAN STATEMENT I saw and evaluated the patient. I reviewed the resident's note and discussed the case with the resident. I agree with the resident's findings and plan as documented. SUBJECTIVE: Pt seen and examined in the ICU. Remains intubated, sedated. Arousable off sedation. Placed on CPAP/PS trials. CT neck without significant soft tissue swelling. OBJECTIVE: Vital Signs Period Temp Pulse Resp BP Sys/Ugarte Pulse Ox Last 24 Hr 97.2 F 56-71 14-18 96-146/59-81 98-98 Intake & Output 10/11/19 10/12/19 10/13/19 10/14/19 23:59 23:59 23:59 23:59 Intake Total 1846 829 754 465 Output Total 4540 1010 1150 810 Balance -2694 -181 -396 -345 Weight 83.552 kg 83.552 kg 84.323 kg Gen: intubated, sedated Heart: RRR Lung: decreased breath sounds at the bases Abd: soft, nontender Ext: no edema CBC, BMP 10/14/19 06:30 10/14/19 06:30 Active Medications Albuterol/Ipratropium (Duoneb -) 1 amp NEB Q4H PRN PRN Reason: SHORTNESS OF BREATH Last Admin: 10/12/19 06:54 Dose: 1 amp Atropine Sulfate (Atropine Injection -) 1 mg IVPUSH ONCE PRN PRN Reason: bradycardia <45 Diltiazem HCl (Cardizem Injection -) 10 mg IVPUSH Q4H PRN PRN Reason: TACHYCARDIA Fluticasone Propionate (Flonase -) 1 spray NS DAILY [facility] Last Admin: 10/14/19 10:06 Dose: 1 spray Heparin Sodium (Porcine) (Heparin -) 1,000 unit IVPUSH PRN PRN PRN Reason: Heparin Heparin Sodium (Porcine) (Heparin -) 5,000 unit IVPUSH PRN PRN PRN Reason: Heparin Fentanyl 500 mcg/ Dextrose 100 mls @ 5 mls/hr IVPB TITR [facility]; Protocol Last Admin: 10/14/19 08:37 Dose: 100 mcg/hr, 20 mls/hr Piperacillin Sod/Tazobactam (Sod 3.375 gm/ Dextrose) 50 mls @ 100 mls/hr IVPB Q8H-IV [facility]; Protocol Last Admin: 10/14/19 09:17 Dose: 100 mls/hr Midazolam HCl (Midazolam 100mg/100ml-0.9%Nacl) 100 mg in 100 mls @ 1 mls/hr IVPB TITR [facility]; Protocol Last Admin: 10/13/19 23:05 Dose: 4 mg/hr, 4 mls/hr Heparin Sodium/Dextrose (Heparin Infusion -) 25,000 units in 500 mls @ 20 mls/ hr IVPB TITR [facility]; Protocol Last Admin: 10/14/19 09:48 Dose: 1,000 units/hr, 20 mls/hr Insulin Aspart (Novolog Vial Sliding Scale -) 1 vial SQ ACHS [facility]; Protocol Last Admin: 10/14/19 06:37 Dose: 2 units Latanoprost (Xalatan 0.005% Eye Drops -) 1 drop OD HS [facility] Last Admin: 10/13/19 23:09 Dose: 1 drop Methylprednisolone Sodium Succinate (Solu-Medrol -) 40 mg IVPUSH Q8H-IV [facility] Last Admin: 10/14/19 10:02 Dose: 40 mg Metoprolol Tartrate (Lopressor -) 25 mg NGT BID [facility] Pantoprazole Sodium (Protonix Iv) 40 mg IVPB DAILY [facility] Last Admin: 10/13/19 10:08 Dose: 40 mg Timolol Maleate (Timoptic 0.5%) 1 drop OU BID [facility] Last Admin: 10/14/19 10:04 Dose: 1 drop Valsartan (Diovan -) 40 mg NGT DAILY [facility] ASSESSMENT AND PLAN: s/p Incisional Hernia Repair with mesh/SB resection s/p Acute Respiratory Failure Atrial Fibrillation HTN DM Hyperthyroidism h/o Colon Ca h/o Cervical Ca - continue steroids - pain control - rate control - resume anticoagulation - PO per surgery - spontaneous breathing trials as tolerated - hope to extubate today - DVT/GI prophylaxis - continue ICU monitoring critical care time spent in reviewing chart, evaluating patient and formulating plan 35 min
--- NOTE | 2019-10-14 11:31 | PN ---
Progress Note, Physician History of Present Illness: OFF SEDATION AWAKE ON VENTILATOR OPENS EYES AFEBRILE WBC IMPROVED BC NO GROWTH - Current Medication List Current Medications: Active Medications Albuterol/Ipratropium (Duoneb -) 1 amp NEB Q4H PRN PRN Reason: SHORTNESS OF BREATH Last Admin: 10/12/19 06:54 Dose: 1 amp Atropine Sulfate (Atropine Injection -) 1 mg IVPUSH ONCE PRN PRN Reason: bradycardia <45 Diltiazem HCl (Cardizem Injection -) 10 mg IVPUSH Q4H PRN PRN Reason: TACHYCARDIA Fluticasone Propionate (Flonase -) 1 spray NS DAILY [facility] Last Admin: 10/14/19 10:06 Dose: 1 spray Heparin Sodium (Porcine) (Heparin -) 1,000 unit IVPUSH PRN PRN PRN Reason: Heparin Heparin Sodium (Porcine) (Heparin -) 5,000 unit IVPUSH PRN PRN PRN Reason: Heparin Fentanyl 500 mcg/ Dextrose 100 mls @ 5 mls/hr IVPB TITR [facility]; Protocol Last Admin: 10/14/19 08:37 Dose: 100 mcg/hr, 20 mls/hr Piperacillin Sod/Tazobactam (Sod 3.375 gm/ Dextrose) 50 mls @ 100 mls/hr IVPB Q8H-IV [facility]; Protocol Last Admin: 10/14/19 09:17 Dose: 100 mls/hr Midazolam HCl (Midazolam 100mg/100ml-0.9%Nacl) 100 mg in 100 mls @ 1 mls/hr IVPB TITR [facility]; Protocol Last Admin: 10/13/19 23:05 Dose: 4 mg/hr, 4 mls/hr Heparin Sodium/Dextrose (Heparin Infusion -) 25,000 units in 500 mls @ 20 mls/ hr IVPB TITR [facility]; Protocol Last Admin: 10/14/19 09:48 Dose: 1,000 units/hr, 20 mls/hr Insulin Aspart (Novolog Vial Sliding Scale -) 1 vial SQ ACHS [facility]; Protocol Last Admin: 10/14/19 06:37 Dose: 2 units Latanoprost (Xalatan 0.005% Eye Drops -) 1 drop OD HS [facility] Last Admin: 10/13/19 23:09 Dose: 1 drop Methylprednisolone Sodium Succinate (Solu-Medrol -) 40 mg IVPUSH Q8H-IV [facility] Last Admin: 10/14/19 10:02 Dose: 40 mg Metoprolol Tartrate (Lopressor -) 25 mg NGT BID [facility] Pantoprazole Sodium (Protonix Iv) 40 mg IVPB DAILY [facility] Last Admin: 10/13/19 10:08 Dose: 40 mg Timolol Maleate (Timoptic 0.5%) 1 drop OU BID [facility] Last Admin: 10/14/19 10:04 Dose: 1 drop Valsartan (Diovan -) 40 mg NGT DAILY [facility] - Objective Vital Signs: Vital Signs Temperature 97.2 F L 10/14/19 06:00 Pulse Rate 56 L 10/14/19 06:00 Respiratory Rate 14 10/14/19 08:40 Blood Pressure 111/66 10/14/19 06:00 O2 Sat by Pulse Oximetry (%) 98 10/13/19 18:16 Constitutional: Yes: Obese Eyes: Yes: Conjunctiva Clear Cardiovascular: Yes: Regular Rate and Rhythm, S1, S2 Respiratory: Yes: Mechanically Ventilated Gastrointestinal: Yes: Normal Bowel Sounds, Soft, Abdomen, Obese, Other ( SURGICAL WOUND NO ERYTHEMA/DRAINAGE) Labs: CBC, BMP 10/14/19 06:30 10/14/19 06:30 INR, PTT INR 1.31 (0.83-1.09) H 10/11/19 22:30 Assessment/Plan R/O HCAP S/P INCISIONAL HERNIA REPAIR LEUKOCYTOSIS RESOLVED CONTINUE EMPIRIC ZOSYN VENTILATORY SUPPORT
[2019-10-14] MEDS: PANTOPRAZOLE SODIUM 40 MG VIAL IVPB SCH (12:13)
--- NOTE | 2019-10-14 12:48 | PN ---
Physical Exam: SUBJECTIVE: Patient seen and examined on morning ICU rounds. Neck CT normal, ET tube adjusted up according to deep position. NG feeds started, can up-titrate. Heparin drip restarted. Patient on 100 Fentanyl, 5 Versed. No longer bleeding into leos / drains. Will trial for possible extubation later today. OBJECTIVE: Vital Signs Period Temp Pulse Resp BP Sys/Ugarte Pulse Ox Last 24 Hr 97.2 F 56-71 14-18 96-146/59-81 98-98 GENERAL: The patient is intubated and sedated, in no acute distress. HEAD: Normal with no signs of trauma. EYES: PERRL, extraocular movements intact, sclera anicteric, conjunctiva clear. No ptosis. ENT: Nares patent, oropharynx clear without exudates, moist mucous membranes. NECK: Trachea midline. LUNGS: Bilateral breath sounds, patient intubated on vent, no wheezes, some bilateral crackles. HEART: Regular rate and rhythm, S1, S2 without murmur, rub or gallop. ABDOMEN: Soft, nontender, nondistended, normoactive bowel sounds, no guarding, no rebound. EXTREMITIES: 2+ pulses, warm, well-perfused, edematous in all four extremities. SKIN: Warm, dry, normal turgor, no rashes or lesions noted. Laboratory Results - last 24 hr 10/13/19 10/13/19 10/13/19 15:20 17:05 23:52 WBC 6.7 RBC 3.48 L Hgb 9.8 L Hct 30.3 L MCV 87.0 MCH 28.2 MCHC 32.4 RDW 16.9 H Plt Count 195 MPV 7.7 Absolute Neuts (auto) 5.9 Neutrophils % 88.6 H Lymphocytes % 5.8 L Monocytes % 5.4 Eosinophils % 0.0 Basophils % 0.2 Nucleated RBC % 0 Sodium Potassium Chloride Carbon Dioxide Anion Gap BUN Creatinine Est GFR (CKD-EPI)AfAm Est GFR (CKD-EPI)NonAf POC Glucometer 144 148 Random Glucose Calcium Phosphorus Magnesium 10/14/19 10/14/19 10/14/19 05:43 06:30 06:30 WBC 6.1 RBC 3.41 L Hgb 9.6 L Hct 29.4 L MCV 86.0 MCH 28.2 MCHC 32.8 RDW 16.6 H Plt Count 190 MPV 7.9 Absolute Neuts (auto) Neutrophils % Lymphocytes % Monocytes % Eosinophils % Basophils % Nucleated RBC % Sodium 142 Potassium 3.7 Chloride 108 H Carbon Dioxide 29 Anion Gap 5 L BUN 37.8 H Creatinine 1.0 Est GFR (CKD-EPI)AfAm 60.33 Est GFR (CKD-EPI)NonAf 52.06 POC Glucometer 160 Random Glucose 145 H Calcium 7.8 L Phosphorus 2.5 Magnesium 2.6 H 10/14/19 12:32 WBC RBC Hgb Hct MCV MCH MCHC RDW Plt Count MPV Absolute Neuts (auto) Neutrophils % Lymphocytes % Monocytes % Eosinophils % Basophils % Nucleated RBC % Sodium Potassium Chloride Carbon Dioxide Anion Gap BUN Creatinine Est GFR (CKD-EPI)AfAm Est GFR (CKD-EPI)NonAf POC Glucometer 133 Random Glucose Calcium Phosphorus Magnesium Active Medications Generic Name Dose Route Start Last Admin Trade Name Freq PRN Reason Stop Dose Admin Albuterol/Ipratropium 1 amp 10/11/19 15:32 10/12/19 06:54 Duoneb - NEB 1 amp Q4H PRN Administration SHORTNESS OF BREATH Atropine Sulfate 1 mg 10/12/19 14:40 Atropine Injection - IVPUSH ONCE PRN bradycardia <45 Diltiazem HCl 10 mg 10/12/19 17:17 Cardizem Injection - IVPUSH Q4H PRN TACHYCARDIA Fluticasone Propionate 1 spray 10/09/19 10:00 10/14/19 10:06 Flonase - NS 1 spray DAILY SRIKANTH Administration Furosemide 40 mg 10/14/19 12:30 Lasix Injection - IVPUSH DAILY SRIKANTH Heparin Sodium (Porcine) 1,000 unit 10/14/19 07:30 Heparin - IVPUSH PRN PRN Heparin Heparin Sodium (Porcine) 5,000 unit 10/14/19 07:30 Heparin - IVPUSH PRN PRN Heparin Piperacillin Sod/Tazobactam 50 mls @ 100 mls/hr 10/12/19 12:00 10/14/19 09:17 Sod 3.375 gm/ Dextrose IVPB 100 mls/hr Q8H-IV SRIKANTH Administration Protocol Midazolam HCl 100 mg in 100 mls @ 1 mls/hr 10/12/19 17:30 10/14/19 10:20 Midazolam 100mg/100ml-0.9%Nacl IVPB 0 mg/hr TITR SRIKANTH 0 mls/hr Infusion Protocol 1 MG/HR Heparin Sodium/Dextrose 25,000 units in 500 mls @ 20 mls/hr 10/14/19 07:30 09:48 Heparin Infusion - IVPB 1,000 units/hr TITR SRIKANTH 20 mls/hr Administration Protocol 1,000 UNITS/HR Insulin Aspart 1 vial 10/12/19 16:30 10/14/19 06:37 Novolog Vial Sliding Scale - SQ 2 units ACHS SRIKANTH Administration Protocol Latanoprost 1 drop 10/08/19 22:00 10/13/19 23:09 Xalatan 0.005% Eye Drops - OD 1 drop HS SRIKANTH Administration Methylprednisolone Sodium Succinate 40 mg 10/11/19 18:00 10/14/19 10:02 Solu-Medrol - IVPUSH 40 mg Q8H-IV SRIKANTH Administration Metoprolol Tartrate 25 mg 10/14/19 07:33 Lopressor - NGT BID SRIKANTH Pantoprazole Sodium 40 mg 10/11/19 17:30 10/14/19 12:13 Protonix Iv IVPB 40 mg DAILY SRIKANTH Administration Timolol Maleate 1 drop 10/08/19 22:00 10/14/19 10:04 Timoptic 0.5% OU 1 drop BID SRIKANTH Administration Valsartan 40 mg 10/14/19 10:00 Diovan - NGT DAILY SRIKANTH ASSESSMENT/PLAN: 84 y/o/f with PMH of HTN, HLD, Afib(on Eliquis), HFpEF, Hyperthyroidism, Parkinson's Disease, Asthma and Colon CA (s/p hemicolectomy 02/2019) presents after complicated ambulatory inguinal hernia repair surgery, POD #5. Patient was extubated on 10/10 but needed to be intubated again on 10/12 for respiratory distress. #Neurology - Intubated, sedated on Fentanyl, Midazolam #Pulmonary - Extubated 10/10. Re-intubated on 10/12 for respiratory distress with bradycardia. ET tube adjusted after xray. - Standing duonebs, Albuterol PRN - Solu Medrol 40mg IV Q8 - CXR: widened mediastinum, large heart, increased markings in left base, unchanged since yesterday - CT neck soft tissue ordered for further evaluation of airway. Neck XR - some soft tissue prominence. limited exam - Hx of asthma, will monitor for signs of exacerbation #Cardiovascular - Episodic bradycardia: Atropine 1mg PRN - AFib: Cardizem 10mg IV Q4 PRN for rate control, Lopressor IV D/Misha - Hx of HTN, home meds Lopressor and Losartan held as per surgery - Restarting Lasix 40 mg, hold if MAP <70 - Restarting Heparin GGT #GI - POD#6 of inguinal hernia repair with enterotomy and mesh placement - NG Tube in place #ID - Zosyn as per ID - Blood Cx: NGTD #Heme/Onc - Hg 10.7 -> 9.6, repeat CBC ordered for 4PM today - Consult placed due to history of Colon CA (last PET done 3 weeks ago). - F/U outpatient with Dr. Walton #Endo - Hold PO Methimazole as Pt. is NPO s/p enterotomy, (Methimazole can be crushed after discussion with Pharmacy), no IV equivalents in hospital. - Hx of DM, on Novolog SS #Renal - Monitor I/Os, UOP no longer sanguineous #FEN - Holding fluids due to peripheral edema - NPO, will confirm with surgery if they still want her on strict NPO - Likely transition to enteral feedings - Phos 1.5, repleted with 30 mmol KPhos #DVT PPX - SCDs - Heparin GGT restarted 10/04 - Protonix GGT #Dispo - Continue ICU monitoring Visit type - Emergency Visit Emergency Visit: Yes ED Registration Date: 10/08/19 Care time: The patient presented to the Emergency Department on the above date and was hospitalized for further evaluation of their emergent condition. - New Patient This patient is new to me today: No - Critical Care Critical Care patient: Yes Total Critical Care Time (in minutes): 36 Critical Care Statement: The care of this patient involved high complexity decision making to prevent further life threatening deterioration of the patient 's condition and/or to evaluate & treat vital organ system(s) failure or risk of failure. ATTENDING PHYSICIAN STATEMENT I saw and evaluated the patient. I reviewed the resident's note and discussed the case with the resident. I agree with the resident's findings and plan as documented. SUBJECTIVE: OBJECTIVE: ASSESSMENT AND PLAN:
[2019-10-14] MEDS: FUROSEMIDE 40 MG/4 ML INJECTABLE VIAL IVPUSH SCH (13:03)
[2019-10-14] MEDS: VALSARTAN 40 MG TABLET (FP) NGT SCH (13:11)
--- NOTE | 2019-10-14 13:45 | PN ---
Progress Note (short form) - Note Progress Note: Problems s/p ambulatory surgery to repair incisional abdominal hernia/s/p mesh s/p sb resection developed resp failure on VENT/poss HCAP/ on empiric zosyn upper airway swelling sepsis/leukocytosis referred for eval of acute prerenal azotemia Current Medications Albuterol/Ipratropium (Duoneb -) 1 amp NEB Q4H PRN PRN Reason: SHORTNESS OF BREATH Last Admin: 10/12/19 06:54 Dose: 1 amp Atropine Sulfate (Atropine Injection -) 1 mg IVPUSH ONCE PRN PRN Reason: bradycardia <45 Diltiazem HCl (Cardizem Injection -) 10 mg IVPUSH Q4H PRN PRN Reason: TACHYCARDIA Fluticasone Propionate (Flonase -) 1 spray NS DAILY SRIKANTH Last Admin: 10/14/19 10:06 Dose: 1 spray Furosemide (Lasix Injection -) 40 mg IVPUSH DAILY SRIKANTH Last Admin: 10/14/19 13:03 Dose: 40 mg Heparin Sodium (Porcine) (Heparin -) 1,000 unit IVPUSH PRN PRN PRN Reason: Heparin Heparin Sodium (Porcine) (Heparin -) 5,000 unit IVPUSH PRN PRN PRN Reason: Heparin Piperacillin Sod/Tazobactam (Sod 3.375 gm/ Dextrose) 50 mls @ 100 mls/hr IVPB Q8H-IV SRIKANTH; Protocol Last Admin: 10/14/19 09:17 Dose: 100 mls/hr Midazolam HCl (Midazolam 100mg/100ml-0.9%Nacl) 100 mg in 100 mls @ 1 mls/hr IVPB TITR SRIKANTH; Protocol Last Infusion: 10/14/19 10:20 Dose: 0 mg/hr, 0 mls/hr Heparin Sodium/Dextrose (Heparin Infusion -) 25,000 units in 500 mls @ 20 mls/ hr IVPB TITR SRIKANTH; Protocol Last Admin: 10/14/19 09:48 Dose: 1,000 units/hr, 20 mls/hr Insulin Aspart (Novolog Vial Sliding Scale -) 1 vial SQ ACHS SRIKANTH; Protocol Last Admin: 10/14/19 13:18 Dose: Not Given Latanoprost (Xalatan 0.005% Eye Drops -) 1 drop OD HS SRIKANTH Last Admin: 10/13/19 23:09 Dose: 1 drop Methylprednisolone Sodium Succinate (Solu-Medrol -) 40 mg IVPUSH Q8H-IV SRIKANTH Last Admin: 10/14/19 10:02 Dose: 40 mg Metoprolol Tartrate (Lopressor -) 25 mg NGT BID [facility] Pantoprazole Sodium (Protonix Iv) 40 mg IVPB DAILY [facility] Last Admin: 10/14/19 12:13 Dose: 40 mg Timolol Maleate (Timoptic 0.5%) 1 drop OU BID [facility] Last Admin: 10/14/19 10:04 Dose: 1 drop Valsartan (Diovan -) 40 mg NGT DAILY [facility] Last Admin: 10/14/19 13:11 Dose: 40 mg O/E still on vent, being weaned feeding on hold urine output is less this shift but some urine was noted in the bedsheets BP higher today Last Vital Signs Temp Pulse Resp BP Pulse Ox 97.2 F L 56 L 12 111/66 98 10/14/19 06:00 10/14/19 06:00 10/14/19 12:52 10/14/19 06:00 10/13/19 18:16 decreased breath sounds Heart soft s1s2 irreg Ext edema dependend CBC, BMP 10/14/19 06:30 10/14/19 06:30 IMP- ac resp failure on vent no clear evidence of intravascular fluid overload s/p bowel surgery - tolerating enteral feeding Renal function still good but urine output may be decreasing Plan- continue feeding when feasible will be a source of volume and calories follow up s albumin which may explain other issues Atrial Fibrillation on eliquis/ HFpEF Hyperthyroidism/thyromegaly Persistent atrial Fibrillation [id number] score of 5 HTN DM Hyperthyroidism Acute renal insufficiency s/p Hematuria H/o cervical carcinoma post resection H/o colon carcinoma post javi-colectomy 02/2019 Parkinson's Disease Asthma Mediastinal Lymphadenopathy
--- NOTE | 2019-10-14 16:22 | PN ---
Progress Note, Physician Chief Complaint: still intubated but will have trial of CPAP today IV steroids, NGT feeds no hematuria - started on IV heparin no bolus IV ATB per ID labs consults meds and tests reviewed and d/w pt's daughter Yogi - Current Medication List Current Medications: Active Medications Albuterol/Ipratropium (Duoneb -) 1 amp NEB Q4H PRN PRN Reason: SHORTNESS OF BREATH Last Admin: 10/12/19 06:54 Dose: 1 amp Atropine Sulfate (Atropine Injection -) 1 mg IVPUSH ONCE PRN PRN Reason: bradycardia <45 Diltiazem HCl (Cardizem Injection -) 10 mg IVPUSH Q4H PRN PRN Reason: TACHYCARDIA Fluticasone Propionate (Flonase -) 1 spray NS DAILY SRIKANTH Last Admin: 10/14/19 10:06 Dose: 1 spray Furosemide (Lasix Injection -) 40 mg IVPUSH DAILY SRIKANTH Last Admin: 10/14/19 13:03 Dose: 40 mg Heparin Sodium (Porcine) (Heparin -) 1,000 unit IVPUSH PRN PRN PRN Reason: Heparin Heparin Sodium (Porcine) (Heparin -) 5,000 unit IVPUSH PRN PRN PRN Reason: Heparin Piperacillin Sod/Tazobactam (Sod 3.375 gm/ Dextrose) 50 mls @ 100 mls/hr IVPB Q8H-IV SRIKANTH; Protocol Last Admin: 10/14/19 09:17 Dose: 100 mls/hr Midazolam HCl (Midazolam 100mg/100ml-0.9%Nacl) 100 mg in 100 mls @ 1 mls/hr IVPB TITR SRIKANTH; Protocol Last Infusion: 10/14/19 10:20 Dose: 0 mg/hr, 0 mls/hr Heparin Sodium/Dextrose (Heparin Infusion -) 25,000 units in 500 mls @ 20 mls/ hr IVPB TITR SRIKANTH; Protocol Last Admin: 10/14/19 09:48 Dose: 1,000 units/hr, 20 mls/hr Insulin Aspart (Novolog Vial Sliding Scale -) 1 vial SQ ACHS SRIKANTH; Protocol Last Admin: 10/14/19 13:18 Dose: Not Given Latanoprost (Xalatan 0.005% Eye Drops -) 1 drop OD HS SRIKANTH Last Admin: 10/13/19 23:09 Dose: 1 drop Methylprednisolone Sodium Succinate (Solu-Medrol -) 40 mg IVPUSH Q8H-IV [facility] Last Admin: 10/14/19 10:02 Dose: 40 mg Metoprolol Tartrate (Lopressor -) 25 mg NGT BID [facility] Pantoprazole Sodium (Protonix Iv) 40 mg IVPB DAILY [facility] Last Admin: 10/14/19 12:13 Dose: 40 mg Timolol Maleate (Timoptic 0.5%) 1 drop OU BID [facility] Last Admin: 10/14/19 10:04 Dose: 1 drop Valsartan (Diovan -) 40 mg NGT DAILY [facility] Last Admin: 10/14/19 13:11 Dose: 40 mg - Objective Vital Signs: Vital Signs Temperature 98 F 10/14/19 12:00 Pulse Rate 92 H 10/14/19 14:00 Respiratory Rate 20 10/14/19 14:00 Blood Pressure 163/73 10/14/19 14:00 O2 Sat by Pulse Oximetry (%) 98 10/13/19 18:16 Constitutional: Yes: No Distress Eyes: Yes: Conjunctiva Clear HENT: Yes: Atraumatic Neck: Yes: Supple Cardiovascular: No: Regular Rate and Rhythm Respiratory: Yes: Diminished Gastrointestinal: Yes: Soft. No: Tenderness Genitourinary: Yes: Graham Present. No: Hematuria Musculoskeletal: No: Joint Stiffness, Joint Swelling Extremities: No: Cold, Cool, Cyanosis Edema: Yes (hands edema ) Integumentary: No: Rash, Venous Stasis Changes Neurological: No: Alert Psychiatric: No: Alert Labs: CBC, BMP 10/14/19 06:30 10/14/19 06:30 INR, PTT INR 1.31 (0.83-1.09) H 10/11/19 22:30 - ....Imaging Other: Report Reviewed Assessment/Plan 83 yo F h/of Colon Ca (s/p Hemicolectomy, 02/2019), HTN, HLD, Afib ( on Eliquis) , Diastolic CHF, HLD, Hyperthyroidism s/p hernia repair, adhesions, s/p incidental enterotomy and partial small bowel resection / reanastomosis and mesh placement, difficult airway access, airway swelling, intubated postop for airway protection admitted go ICU respiratory failure reintubated - trial CPAP as tolerated hematuria after IV heparin cleared - to restart IV heparin without bolus bradycardia hypoTA cardiology f/u prerenal azotemia and low electrolytes - per ICU, also asked renal input r/o sepsis seen by ID - ATB per ID restart iv steroids for airway swelling and wheezing IVF; cont meds; iv heparin PTT checks cardiology f/u; BP control; DVT PFX, decubs, aspiration PFX; f/u labs; I/O Graham; prognosis guarded d.w staff d/w pts' daughter Yogi at bedside prognosis guarded t time 40 min
[2019-10-14] MEDS: PROPOFOL 1,000,000 MCG/100 ML VIAL IVPB SCH (16:57)
--- NOTE | 2019-10-14 19:02 | PN ---
Progress Note (short form) - Note Progress Note: Rpt. CXR to evaluate NGT was unable to visualize NGT. On physical exam air was heard on insufflation and we were able to aspirate gastric contents. We will resume Tube feeds.
[2019-10-14] MEDS: LATANOPROST 0.005% OPHTH SOLN 2.5ML BOTTLE OD SCH (23:10)
[2019-10-15] MEDS ORDERED: MIDAZOLAM HCL 2 MG/2 ML SINGLE DOSE VIAL IVPUSH ONE (01:54)
[2019-10-15] MEDS ORDERED: DEXTROSE 5%-WATER - 50 ML IVPB ONE ×3 (02:52→18:08)
[2019-10-15] MEDS ORDERED: PIPERACILLIN/TAZOBACTAM 3.375 GM VIAL IVPB ONE ×3 (02:52→18:07)
[2019-10-15] MEDS: INSULIN SLIDING SCALE (NOVOLOG) 1 VIAL SQ SCH ×4 (03:09→18:04)
[2019-10-15] MEDS: methylPREDNISolone NA SUCC 40 MG/1 ML VIAL IVPUSH SCH ×3 (03:10→23:58)
[2019-10-15] MEDS: PIPERACILLIN/TAZOB 3.375 GM 3.375 GM in DEXTROSE 5%-WATER - 50 ML IVPB SCH ×3 (03:10→18:44)
[2019-10-15 07:32] LABS: BASO % 0.1 % (0-2.0); HEMATOCRIT 31.2 % (32.4-45.2); HEMOGLOBIN 10.3 GM/dL (10.7-15.3); LYMPH % 4.8 % (8-40); MCH 28.5 pg (25.7-33.7); MCHC 33.1 g/dl (32.0-36.0); MEAN CELL VOLUME 86.2 fl (80-96); MONO % 3.5 % (3.8-10.2); NEUT % 91.6 % (42.8-82.8); PLATELET COUNT 190 K/MM3 (134-434); RBC 3.62 M/mm3 (3.60-5.2); RDW 16.6 % (11.6-15.6); WHITE BLOOD COUNT 8.5 K/mm3 (4.0-10.0)
--- NOTE | 2019-10-15 08:24 | PN ---
Physical Exam: SUBJECTIVE: Patient seen and examined. Off sedation and awake this morning. Patient was able to follow commands and respond to questions. Extubated without complications. Patient tolerating venti mask well. OBJECTIVE: Vital Signs Period Temp Pulse Resp BP Sys/Ugarte Pulse Ox Last 24 Hr 98 F-98.8 F 55-92 12- 95-163/61-91 GENERAL: awake, alert, following commands HEAD: Normal with no signs of trauma. EYES: PERRL, EOMI ENT: dry mucous membranes. NECK: Trachea midline LUNGS: clear to auscultation bilaterally, no wheezing, rales, or rhonchi. No accessory muscle use HEART: Regular rate and rhythm, S1, S2 without murmur, rub or gallop. ABDOMEN: Soft, nontender, nondistended, normoactive bowel sounds, no guarding, no rebound. Surgical incisions clean, dry, and intact EXTREMITIES: 2+ pulses, warm NEUROLOGICAL: normal speech, gait not observed Laboratory Results - last 24 hr 10/14/19 10/14/19 10/14/19 12:32 16:43 17:52 PTT (Actin FS) 60.5 H POC Glucometer 133 155 10/14/19 10/15/19 23:21 06:26 PTT (Actin FS) POC Glucometer 152 159 Active Medications Generic Name Dose Route Start Last Admin Trade Name Freq PRN Reason Stop Dose Admin Atropine Sulfate 1 mg 10/12/19 14:40 Atropine Injection - IVPUSH ONCE PRN bradycardia <45 Diltiazem HCl 10 mg 10/12/19 17:17 Cardizem Injection - IVPUSH Q4H PRN TACHYCARDIA Fluticasone Propionate 1 spray 10/09/19 10:00 10/14/19 10:06 Flonase - NS 1 spray DAILY SRIKANTH Administration Furosemide 40 mg 10/14/19 12:30 10/14/19 13:03 Lasix Injection - IVPUSH 40 mg DAILY SRIKANTH Administration Heparin Sodium (Porcine) 1,000 unit 10/14/19 07:30 Heparin - IVPUSH PRN PRN Heparin Heparin Sodium (Porcine) 5,000 unit 10/14/19 07:30 Heparin - IVPUSH PRN PRN Heparin Piperacillin Sod/Tazobactam 50 mls @ 100 mls/hr 10/12/19 12:00 10/15/19 03:10 Sod 3.375 gm/ Dextrose IVPB 100 mls/hr Q8H-IV SRIKANTH Administration Protocol Heparin Sodium/Dextrose 25,000 units in 500 mls @ 20 mls/hr 10/14/19 07:30 09:48 Heparin Infusion - IVPB 1,000 units/hr TITR SRIKANTH 20 mls/hr Administration Protocol 1,000 UNITS/HR Propofol 1,000,000 mcg in 100 mls @ 5.059 mls/hr 10/14/19 17:00 10/15/19 03: 00 Diprivan - IVPB 15 mcg/kg/min TITR SRIKANTH 7.589 mls/hr Titration Protocol 10 MCG/KG/MIN Insulin Aspart 1 vial 10/12/19 16:30 10/15/19 06:36 Novolog Vial Sliding Scale - SQ 2 units ACHS SRIKANTH Administration Protocol Latanoprost 1 drop 10/08/19 22:00 10/14/19 23:10 Xalatan 0.005% Eye Drops - OD 1 drop HS SRIKANTH Administration Methylprednisolone Sodium Succinate 40 mg 10/11/19 18:00 10/15/19 03:10 Solu-Medrol - IVPUSH 40 mg Q8H-IV SRIKANTH Administration Metoprolol Tartrate 25 mg 10/14/19 07:33 Lopressor - NGT BID SRIKANTH Pantoprazole Sodium 40 mg 10/11/19 17:30 10/14/19 12:13 Protonix Iv IVPB 40 mg DAILY SRIKANTH Administration Timolol Maleate 1 drop 10/08/19 22:00 10/14/19 23:10 Timoptic 0.5% OU 1 drop BID SRIKANTH Administration Valsartan 40 mg 10/14/19 10:00 10/14/19 13:11 Diovan - NGT 40 mg DAILY SRIKANTH Administration ASSESSMENT/PLAN: 84 y/o/f with PMH of HTN, HLD, Afib(on Eliquis), HFpEF, Hyperthyroidism, Parkinson's Disease, Asthma and Colon CA (s/p hemicolectomy 02/2019) presents after complicated ambulatory inguinal hernia repair surgery, POD #7. Patient was extubated on 10/10 but needed to be intubated again on 10/12 for respiratory distress. Extubated second time on 10/15. #Neurology - Extubated 10/15 - AAOx3, monitor #Pulmonary - Extubated 10/10. Re-intubated on 10/12 for respiratory distress with bradycardia. Extubated again on 10/15. - Albuterol PRN - CXR 10/15: no acute process seen - CT neck soft tissue 10/13: multinodular goiter extending into the right superior mediastinum. Mediastinal adenopathy. Right pleural effusion. - Hx of asthma, will monitor for signs of exacerbation - Solu-medrol 40mg IV BID #Cardiovascular - AFib: Cardizem 10mg IV Q4 PRN for rate control, Lopressor IV D/Misha - Hx of HTN, home meds Lopressor and Losartan held as per surgery - Restarting Lasix 40 mg, hold if MAP <70 - Continue Heparin GGT #GI - POD#7 of inguinal hernia repair with enterotomy and mesh placement - NG Tube in place - Speech/Swallow eval recommending continuing NG tube feeds for today and consider starting diet tomorrow after re-eval #ID - Zosyn as per ID - Blood Cx negative - Negative for leukocytosis, afebrile #Heme/Onc - Hgb/Hct - 10.3/31.2 - Consult placed due to history of Colon CA (last PET done 3 weeks ago). - F/U outpatient with Dr. Walton #Endo - Hold PO Methimazole as Pt. is NPO s/p enterotomy, (Methimazole can be crushed after discussion with Pharmacy), no IV equivalents in hospital. - Hx of DM, on Novolog SS #Renal - Monitor I/Os, UOP no longer sanguineous #FEN - Holding fluids due to peripheral edema - NPO, continue NG tube feeds #DVT PPX - SCDs - Heparin GGT restarted 10/14 - Protonix #Dispo - Continue ICU monitoring Visit type - Emergency Visit Emergency Visit: Yes ED Registration Date: 10/08/19 Care time: The patient presented to the Emergency Department on the above date and was hospitalized for further evaluation of their emergent condition. - New Patient This patient is new to me today: No - Critical Care Critical Care patient: Yes Total Critical Care Time (in minutes): 36 Critical Care Statement: The care of this patient involved high complexity decision making to prevent further life threatening deterioration of the patient 's condition and/or to evaluate & treat vital organ system(s) failure or risk of failure. ATTENDING PHYSICIAN STATEMENT I saw and evaluated the patient. I reviewed the resident's note and discussed the case with the resident. I agree with the resident's findings and plan as documented. SUBJECTIVE: OBJECTIVE: ASSESSMENT AND PLAN:
[2019-10-15 08:30] LABS: ALBUMIN 2.4 g/dl (3.4-5.0); BILIRUBIN,TOTAL 0.5 mg/dL (0.2-1); BLOOD UREA NITROGEN 42.3 mg/dL (7-18); MAGNESIUM 2.9 mg/dL (1.8-2.4); POTASSIUM 3.5 mmol/L (3.5-5.1)
--- NOTE | 2019-10-15 08:39 | PN ---
Progress Note (short form) - Note Progress Note: GENERAL SURGERY POD #7 s/p Incisional hernia repair w/ Phasix mesh and small bowel resection. Remains intubated. IV hep gtt. Feeds via NGT. Last Vital Signs Temp Pulse Resp BP Pulse Ox 98.4 F 66 14 142/66 98 10/15/19 02:00 10/15/19 06:00 10/15/19 06:30 10/15/19 06:00 10/13/19 18:16 CBC, BMP 10/15/19 06:30 10/15/19 06:30 24hr Output Trend 10/14/19 10/14/19 10/14/19 10/15/19 05:45 15:00 19:05 06:00 Left ABD EDMUNDO 5 15 10 Right ABD EDMUNDO 5 40 40 NGT Berry [id number] PE GEN: intubated/sedated CV: rrr ABD: soft, non-distended. Midline incision c/d/i with lucius. EDMUNDO x2 on bulb suction LE: SCDs bilat. edema bilat Problem List - Problems (1) S/P repair of ventral hernia Assessment/Plan: 84 yo female POD #7 s/p ventral hernia repair with Phasix mesh and SB resection , respiratory distress and remains intubated - NPO - IVF hydration - IV Hep gtt - Monitor record I/Os q shift - Wean to extubate per ICU/Pulm - Feeds via NGT Code(s): Z98.890 - OTHER SPECIFIED POSTPROCEDURAL STATES; Z87.19 - PERSONAL HISTORY OF OTHER DISEASES OF THE DIGESTIVE SYSTEM (2) Obesity (BMI 30-39.9) Code(s): E66.9 - OBESITY, UNSPECIFIED (3) CVA (cerebral vascular accident) Code(s): I63.9 - CEREBRAL INFARCTION, UNSPECIFIED Qualifiers: CVA mechanism: unspecified Qualified Code(s): I63.9 - Cerebral infarction, unspecified (4) HTN (hypertension) Code(s): I10 - ESSENTIAL (PRIMARY) HYPERTENSION Qualifiers: Hypertension type: essential hypertension Qualified Code(s): I10 - Essential (primary) hypertension
--- NOTE | 2019-10-15 08:44 | PN ---
Progress Note, Physician Chief Complaint: on vent arousable labs noted VSS afebrile no hematuria on iv heparin abd drain some serosg drainage daughter Bobbi at bedside - Current Medication List Current Medications: Active Medications Atropine Sulfate (Atropine Injection -) 1 mg IVPUSH ONCE PRN PRN Reason: bradycardia <45 Diltiazem HCl (Cardizem Injection -) 10 mg IVPUSH Q4H PRN PRN Reason: TACHYCARDIA Fluticasone Propionate (Flonase -) 1 spray NS DAILY [facility] Last Admin: 10/14/19 10:06 Dose: 1 spray Furosemide (Lasix Injection -) 40 mg IVPUSH DAILY [facility] Last Admin: 10/14/19 13:03 Dose: 40 mg Heparin Sodium (Porcine) (Heparin -) 1,000 unit IVPUSH PRN PRN PRN Reason: Heparin Heparin Sodium (Porcine) (Heparin -) 5,000 unit IVPUSH PRN PRN PRN Reason: Heparin Piperacillin Sod/Tazobactam (Sod 3.375 gm/ Dextrose) 50 mls @ 100 mls/hr IVPB Q8H-IV [facility]; Protocol Last Admin: 10/15/19 03:10 Dose: 100 mls/hr Heparin Sodium/Dextrose (Heparin Infusion -) 25,000 units in 500 mls @ 20 mls/ hr IVPB TITR [facility]; Protocol Last Admin: 10/14/19 09:48 Dose: 1,000 units/hr, 20 mls/hr Propofol (Diprivan -) 1,000,000 mcg in 100 mls @ 5.059 mls/hr IVPB TITR [facility]; Protocol Last Titration: 10/15/19 03:00 Dose: 15 mcg/kg/min, 7.589 mls/hr Insulin Aspart (Novolog Vial Sliding Scale -) 1 vial SQ ACHS [facility]; Protocol Last Admin: 10/15/19 06:36 Dose: 2 units Latanoprost (Xalatan 0.005% Eye Drops -) 1 drop OD HS [facility] Last Admin: 10/14/19 23:10 Dose: 1 drop Methylprednisolone Sodium Succinate (Solu-Medrol -) 40 mg IVPUSH Q8H-IV [facility] Last Admin: 10/15/19 03:10 Dose: 40 mg Metoprolol Tartrate (Lopressor -) 25 mg NGT BID [facility] Pantoprazole Sodium (Protonix Iv) 40 mg IVPB DAILY [facility] Last Admin: 10/14/19 12:13 Dose: 40 mg Timolol Maleate (Timoptic 0.5%) 1 drop OU BID [facility] Last Admin: 10/14/19 23:10 Dose: 1 drop Valsartan (Diovan -) 40 mg NGT DAILY [facility] Last Admin: 10/14/19 13:11 Dose: 40 mg - Objective Vital Signs: Vital Signs Temperature 98.4 F 10/15/19 02:00 Pulse Rate 81 10/15/19 08:39 Respiratory Rate 18 10/15/19 08:39 Blood Pressure 157/83 10/15/19 08:39 O2 Sat by Pulse Oximetry (%) 98 10/13/19 18:16 Constitutional: Yes: No Distress, Calm Eyes: Yes: Conjunctiva Clear HENT: Yes: Atraumatic Neck: Yes: Supple Cardiovascular: No: Regular Rate and Rhythm Respiratory: Yes: Diminished Gastrointestinal: Yes: Soft, Other (abd wound dressing no bleed; drain with samll amnt serosg drainage). No: Tenderness Genitourinary: No: Hematuria Musculoskeletal: No: Joint Stiffness, Joint Swelling Extremities: No: Cold, Cool, Cyanosis Edema: Yes (hands edema bilat less) Integumentary: No: Rash, Venous Stasis Changes Neurological: Yes: Alert Psychiatric: Yes: Alert. No: Agitated Labs: CBC, BMP 10/15/19 06:30 10/15/19 06:30 INR, PTT INR 1.31 (0.83-1.09) H 10/11/19 22:30 - ....Imaging Chest X-ray: Report Reviewed Cat Scan: Report Reviewed EKG: Report Reviewed Assessment/Plan 83 yo F h/of Colon Ca (s/p Hemicolectomy, 02/2019), HTN, HLD, Afib ( on Eliquis) , Diastolic CHF, HLD, Hyperthyroidism s/p hernia repair, adhesions, s/p incidental enterotomy and partial small bowel resection / reanastomosis and mesh placement, difficult airway access, airway swelling, intubated postop for airway protection admitted go ICU respiratory failure reintubated - trial CPAP as tolerated extubate today if tolerates CPap hematuria after IV heparin cleared, restarted IV heparin without bolus bradycardia hypoTA cardiology f/u prerenal azotemia and low electrolytes - per ICU, also asked renal input r/o sepsis seen by ID - ATB per ID taper iv steroids for airway swelling and wheezing IVF; cont meds; iv heparin PTT checks cardiology f/u; BP control; DVT PFX, decubs, aspiration PFX; f/u labs; I/O Graham; prognosis guarded d.w staff d/w pts' daughter Bobbi at bedside prognosis guarded t time 40 min
[2019-10-15] MEDS: FUROSEMIDE 40 MG/4 ML INJECTABLE VIAL IVPUSH SCH (09:22)
[2019-10-15] MEDS: PANTOPRAZOLE SODIUM 40 MG VIAL IVPB SCH (09:22)
[2019-10-15] MEDS: VALSARTAN 40 MG TABLET (FP) NGT SCH (09:22)
[2019-10-15] MEDS: TIMOLOL 0.5% OPHTHALMIC SOL 5 ML BOTTLE OU SCH ×2 (09:23→23:58)
[2019-10-15] MEDS: FLUTICASONE PROP 0.05% 16 GM NASAL SPRAY NS SCH (09:39)
[2019-10-15 10:58] LABS: ANISOCYTOSIS 1+; MACROCYTOSIS 0; OVALOCYTE 1+; PLATELET ESTIMATE NORMAL
[2019-10-15] MEDS ORDERED: LABETALOL HCL 5 MG/1 ML (100MG/20 ML VIAL) ONE (12:14)
--- NOTE | 2019-10-15 12:40 | PN ---
Teaching Attending Note Name of Resident: Gagan Westbrook ATTENDING PHYSICIAN STATEMENT I saw and evaluated the patient. I reviewed the resident's note and discussed the case with the resident. I agree with the resident's findings and plan as documented. SUBJECTIVE: Pt seen and examined in the ICU. Intubated, awake, following commands. Tolerated CPAP/PS and subsequently extubated during rounds. OBJECTIVE: Vital Signs Period Temp Pulse Resp BP Sys/Ugarte Pulse Ox Last 24 Hr 98.4 F-98.8 F 57-92 11-11 95-163/61-91 Intake & Output 10/12/19 10/13/19 10/14/19 10/15/19 23:59 23:59 23:59 23:59 Intake Total 829 754 825 392.5 Output Total 1010 1150 1265 1050 Balance -181 -396 -440 -657.5 Weight 83.552 kg 83.552 kg 84.323 kg 83.2 kg Gen: extubated Heart: RRR Lung: decreased breath sounds at the bases Abd: soft, nontender Ext: no edema CBC, BMP 10/15/19 06:30 10/15/19 06:30 Active Medications Atropine Sulfate (Atropine Injection -) 1 mg IVPUSH ONCE PRN PRN Reason: bradycardia <45 Diltiazem HCl (Cardizem Injection -) 10 mg IVPUSH Q4H PRN PRN Reason: TACHYCARDIA Fluticasone Propionate (Flonase -) 1 spray NS DAILY [facility] Last Admin: 10/15/19 09:39 Dose: 1 spray Furosemide (Lasix Injection -) 40 mg IVPUSH DAILY [facility] Last Admin: 10/15/19 09:22 Dose: 40 mg Heparin Sodium (Porcine) (Heparin -) 1,000 unit IVPUSH PRN PRN PRN Reason: Heparin Heparin Sodium (Porcine) (Heparin -) 5,000 unit IVPUSH PRN PRN PRN Reason: Heparin Piperacillin Sod/Tazobactam (Sod 3.375 gm/ Dextrose) 50 mls @ 100 mls/hr IVPB Q8H-IV [facility]; Protocol Last Admin: 10/15/19 09:23 Dose: 100 mls/hr Heparin Sodium/Dextrose (Heparin Infusion -) 25,000 units in 500 mls @ 20 mls/ hr IVPB TITR [facility]; Protocol Last Titration: 10/15/19 11:42 Dose: 0 units/hr, 0 mls/hr Propofol (Diprivan -) 1,000,000 mcg in 100 mls @ 5.059 mls/hr IVPB TITR [facility]; Protocol Last Titration: 10/15/19 03:00 Dose: 15 mcg/kg/min, 7.589 mls/hr Insulin Aspart (Novolog Vial Sliding Scale -) 1 vial SQ ACHS [facility]; Protocol Last Admin: 10/15/19 11:43 Dose: 2 units Latanoprost (Xalatan 0.005% Eye Drops -) 1 drop OD HS [facility] Last Admin: 10/14/19 23:10 Dose: 1 drop Methylprednisolone Sodium Succinate (Solu-Medrol -) 40 mg IVPUSH BID [facility] Last Admin: 10/15/19 09:39 Dose: 40 mg Metoprolol Tartrate (Lopressor -) 25 mg NGT BID [facility] Pantoprazole Sodium (Protonix Iv) 40 mg IVPB DAILY [facility] Last Admin: 10/15/19 09:22 Dose: 40 mg Timolol Maleate (Timoptic 0.5%) 1 drop OU BID [facility] Last Admin: 10/15/19 09:23 Dose: 1 drop Valsartan (Diovan -) 40 mg NGT DAILY [facility] Last Admin: 10/15/19 09:22 Dose: 40 mg ASSESSMENT AND PLAN: s/p Incisional Hernia Repair with mesh/SB resection s/p Acute Respiratory Failure Atrial Fibrillation HTN DM Hyperthyroidism h/o Colon Ca h/o Cervical Ca - continue steroids - pain control - rate control - continue anticoagulation - PO per surgery - DVT/GI prophylaxis - continue ICU monitoring critical care time spent in reviewing chart, evaluating patient and formulating plan 35 min
[2019-10-15 12:52] LABS: INR 1.27 (0.83-1.09)
[2019-10-15 12:55] LABS: ACTIVATED PTT 109.4 SECONDS (25.2-36.5)
[2019-10-15] MEDS: HEPARIN INFUSION - 25,000 UNITS/500 ML INFUS.BAG IVPB SCH (13:44)
[2019-10-15] MEDS ORDERED: LABETALOL HCL 5 MG/1 ML (100MG/20 ML VIAL) IVPUSH ONE (14:06)
--- NOTE | 2019-10-15 14:08 | CONSULT ---
Admitting History and Physical - Primary Care Physician PCP: Elle Bauer S - Admission History of Present Illness: Per EMR- s/p ambulatory surgery to repair incisional abdominal hernia/s/p mesh s/p sb resection developed resp failure on VENT/poss HCAP/ on empiric zosyn upper airway swelling sepsis/leukocytosis Pt extbated 10/10. NGT to LCS. Plan was for bedside swallow evaluation when able and possible diet advance tonight. 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 Baseline head tremor. 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 cervical CA or ovarian CA S/P hyterectomy) Endocrine: Yes: Hyperthyroidism - Past Surgical History Past Surgical History: Yes: Colectomy, Hysterectomy - Advance Directives Advance Directives: Yes: Health Care Proxy - Smoking History Smoking history: Never smoked Have you smoked in the past 12 months: No Aproximately how many cigarettes per day: 0 - Alcohol/Substance Use Hx Alcohol Use: No History of Substance Use: reports: None - Social History ADL: Family Assistance History of Recent Travel: No History - Admission Reason For Visit: INCISIONAL HERNIA - Diagnostics X-ray: Report Reviewed - General Mental Status: Alert and Oriented, Awake and Alert, Able to Follow Commands Attention: Intact Ability to Follow Directions: Excellent Head/Neck Control: WFL - Hearing Hearing: Normal Speech Evaluation - Communication Primary Language: THAI Oral Expression Ability: Yes: Moderate Impairment (dysphonia) - Speech Production Intelligibility: Yes: Moderately Impaired - Speech Characteristics Voice Loudness: Moderately Soft/Quiet Voice Pitch: Yes: Mildly High Voice Phonatory-based Quality: Yes: Breathy, Weak, Dysphonia Nasal Resonance: Normal Articulation: Yes: Precise - Language/Auditory Comprehension Follows: Yes: 2 Stage Simple Commands Observation: Able to respond to yes/no queries: Yes, Yes/No Confusion: No, Comprehends Conversational Speech: Yes - Language/Verbal Expression Able to Communicate Wants and Needs: Yes: WNL - Swallow Evaluation/Bedside Assessment Current Nutritional Intake: NG Tube Oral Secretions: Yes: WFL (no oral secretions but chest congested) Dentition: Yes: Adequate Facial Symmetry at Rest: Symmetrical Facial Symmetry on Retraction: Symmetrical Against Resistance Opening: Normal Against Resistance Closing: Normal Pucker Lips: Normal Smile: Normal Lingual Movement: Normal, Symmetric Lingual Speed of Movement: Normal Lingual Movement Strgth Against Opposition: Normal Lingual Movement Characteristics: Normal Velopharyngeal Movement: Normal Laryngeal Movement: Able to Palpate Labial Seal: WFL A-P Transit: WFL Timing of Swallow: Delayed Coughing/Throat Clear: No (trial puree only) Recommendations - Speech Evaluation, Impression/Plan Impression: trial puree only with strong swallow. However, dysphonic sec intubation x 2, with aspiration suspected. Pt has NGT in at this time for nutrition/meds. - Dysphagia Impressions/Plan Swallowing Skills: Impaired Dysphagia Impressions: Moderate Impairment, Risk of Aspiration *Silent aspiration: cannot be R/O at bedside - Recommendations Diet Consistency: NPO, Other (continue ngt fore now. Pt/family in agreement. Pt was on Parkinsons meds in 02/2018-No PD meds noted at home or this admission? If neccessary, meds can be given in applesauce) Liquids: NPO
[2019-10-15] MEDS ORDERED: METOPROLOL TARTRATE 50 MG TABLET (FP) PO ONE (14:30)
[2019-10-15] MEDS ORDERED: MORPHINE SULFATE 2 MG/ML VIAL ONE (14:54)
[2019-10-15] MEDS ORDERED: morphine CARPU-JECT 2 MG/1 ML DISP.SYRIN IVPUSH ONE (14:57)
--- NOTE | 2019-10-15 15:04 | PN ---
Progress Note, Physician Chief Complaint: Extubated this am History of Present Illness: Patient was seen and examined in ICU. Extubated. Chart was reviewed AF with variable HR - Current Medication List Current Medications: Active Medications Atropine Sulfate (Atropine Injection -) 1 mg IVPUSH ONCE PRN PRN Reason: bradycardia <45 Diltiazem HCl (Cardizem Injection -) 10 mg IVPUSH Q4H PRN PRN Reason: TACHYCARDIA Fluticasone Propionate (Flonase -) 1 spray NS DAILY [facility] Last Admin: 10/15/19 09:39 Dose: 1 spray Furosemide (Lasix Injection -) 40 mg IVPUSH DAILY [facility] Last Admin: 10/15/19 09:22 Dose: 40 mg Heparin Sodium (Porcine) (Heparin -) 1,000 unit IVPUSH PRN PRN PRN Reason: Heparin Heparin Sodium (Porcine) (Heparin -) 5,000 unit IVPUSH PRN PRN PRN Reason: Heparin Piperacillin Sod/Tazobactam (Sod 3.375 gm/ Dextrose) 50 mls @ 100 mls/hr IVPB Q8H-IV [facility]; Protocol Last Admin: 10/15/19 09:23 Dose: 100 mls/hr Heparin Sodium/Dextrose (Heparin Infusion -) 25,000 units in 500 mls @ 20 mls/ hr IVPB TITR [facility]; Protocol Last Admin: 10/15/19 13:44 Dose: 850 units/hr, 17 mls/hr Propofol (Diprivan -) 1,000,000 mcg in 100 mls @ 5.059 mls/hr IVPB TITR [facility]; Protocol Last Titration: 10/15/19 03:00 Dose: 15 mcg/kg/min, 7.589 mls/hr Insulin Aspart (Novolog Vial Sliding Scale -) 1 vial SQ ACHS [facility]; Protocol Last Admin: 10/15/19 11:43 Dose: 2 units Latanoprost (Xalatan 0.005% Eye Drops -) 1 drop OD HS [facility] Last Admin: 10/14/19 23:10 Dose: 1 drop Methylprednisolone Sodium Succinate (Solu-Medrol -) 40 mg IVPUSH BID [facility] Last Admin: 10/15/19 09:39 Dose: 40 mg Metoprolol Tartrate (Lopressor -) 25 mg NGT BID [facility] Morphine Sulfate (Morphine Injection -) 2 mg IVPUSH ONCE ONE Stop: 10/15/19 14:58 Pantoprazole Sodium (Protonix Iv) 40 mg IVPB DAILY [facility] Last Admin: 10/15/19 09:22 Dose: 40 mg Timolol Maleate (Timoptic 0.5%) 1 drop OU BID [facility] Last Admin: 10/15/19 09:23 Dose: 1 drop Valsartan (Diovan -) 40 mg NGT DAILY [facility] Last Admin: 10/15/19 09:22 Dose: 40 mg - Objective Vital Signs: Vital Signs Temperature 98.4 F 10/15/19 02:00 Pulse Rate 65 10/15/19 14:00 Respiratory Rate 20 10/15/19 14:00 Blood Pressure 185/88 H 10/15/19 14:00 O2 Sat by Pulse Oximetry (%) 98 10/13/19 18:16 Neck: Yes: Supple Cardiovascular: Yes: Pulse Irregular, S1, S2 Respiratory: Yes: Diminished Gastrointestinal: Yes: Normal Bowel Sounds, Soft. No: Tenderness Edema: No Labs: CBC, BMP 10/15/19 06:30 10/15/19 06:30 INR, PTT INR 1.27 (0.83-1.09) H 10/15/19 12:15 Problem List - Problems (1) Afib Code(s): I48.91 - UNSPECIFIED ATRIAL FIBRILLATION Qualifiers: Atrial fibrillation type: chronic (2) Anemia Code(s): D64.9 - ANEMIA, UNSPECIFIED (3) Glaucoma Code(s): H40.9 - UNSPECIFIED GLAUCOMA (4) Hyperthyroidism Code(s): E05.90 - THYROTOXICOSIS, UNSP WITHOUT THYROTOXIC CRISIS OR STORM (5) New onset atrial fibrillation Code(s): I48.91 - UNSPECIFIED ATRIAL FIBRILLATION (6) S/P left hemicolectomy Code(s): Z90.49 - ACQUIRED ABSENCE OF OTHER SPECIFIED PARTS OF DIGESTIVE TRACT (7) Acute on chronic diastolic (congestive) heart failure Code(s): I50.33 - ACUTE ON CHRONIC DIASTOLIC (CONGESTIVE) HEART FAILURE (8) Asthma Code(s): J45.909 - UNSPECIFIED ASTHMA, UNCOMPLICATED Qualifiers: Asthma severity: mild Asthma persistence: intermittent Asthma complication type: unspecified Qualified Code(s): J45.20 - Mild intermittent asthma, uncomplicated (9) CAD (coronary artery disease) Code(s): I25.10 - ATHSCL HEART DISEASE OF [place] CORONARY ARTERY W/O ANG PCTRS Qualifiers: Coronary Disease-Associated Artery/Lesion type: elim [place] artery [place] vs. transplanted heart: [place] heart Associated angina: without angina Qualified Code(s): I25.10 - Atherosclerotic heart disease of [place] coronary artery without angina pectoris (10) HTN (hypertension) Code(s): I10 - ESSENTIAL (PRIMARY) HYPERTENSION Qualifiers: Hypertension type: essential hypertension Qualified Code(s): I10 - Essential (primary) hypertension (11) Parkinson disease Code(s): G20 - PARKINSON'S DISEASE Assessment/Plan 1. Acute respiratory failure - extubated 2. Post abdominal hernia repair complicated by small bowel resection and mesh placement 3. Persistent atrial Fibrillation [id number] score of 5 4. Diastolic LV dysfunction with clinical class 0 NYHA classification LV failure , generalized edema 5. HTN 6. DM 7. Hyperthyroidism 8. Acute renal insufficiency 9. Hematuria, resolved 10. History of cervical carcinoma post resection 11. History of colon carcinoma post javi-colectomy PLAN: 1. Post op management 2. IV Cardizem as needed for rate control 3. Reinitiate Lopressor and Cozaar therapies when able to take PO 4. Heparin and eventually with Eliquis, provided no further bleed/hematuria 5. Antibiotics Supportive care Johann Cowan MD
[2019-10-15] MEDS ORDERED: ALBUTEROL SO4 0.083% IH SOL 2.5 MG/3 ML VIAL.NEB. NEB ONE (16:58)
--- NOTE | 2019-10-15 18:43 | PN ---
Progress Note (short form) - Note Progress Note: Renal follow up for azotemia Seen and examined at the bedside awake on facemask O2 s/p extubation this morning making urine daughter at the bedside Vital Signs Temperature 98.4 F 10/15/19 02:00 Pulse Rate 68 10/15/19 18:01 Respiratory Rate 20 10/15/19 18:01 Blood Pressure 158/80 10/15/19 18:01 O2 Sat by Pulse Oximetry (%) 98 10/13/19 18:16 Intake & Output 10/12/19 10/13/19 10/14/19 10/15/19 23:59 23:59 23:59 23:59 Intake Total 829 754 825 392.5 Output Total 1010 1150 1265 1950 Balance -181 -396 -440 -1557.5 Weight 83.552 kg 83.552 kg 84.323 kg 83.2 kg NAD awake and alert RRR CTA soft NT/ND trace LE edema CBC, BMP 10/15/19 06:30 10/15/19 06:30 Current Medications Albuterol Sulfate (Ventolin 0.083% Nebulizer Soln -) 1 amp NEB Q6H PRN PRN Reason: SHORT OF BREATH/WHEEZING Diltiazem HCl (Cardizem Injection -) 10 mg IVPUSH Q4H PRN PRN Reason: TACHYCARDIA Fluticasone Propionate (Flonase -) 1 spray NS DAILY [facility] Last Admin: 10/15/19 09:39 Dose: 1 spray Furosemide (Lasix Injection -) 40 mg IVPUSH DAILY [facility] Last Admin: 10/15/19 09:22 Dose: 40 mg Heparin Sodium (Porcine) (Heparin -) 1,000 unit IVPUSH PRN PRN PRN Reason: Heparin Heparin Sodium (Porcine) (Heparin -) 5,000 unit IVPUSH PRN PRN PRN Reason: Heparin Piperacillin Sod/Tazobactam (Sod 3.375 gm/ Dextrose) 50 mls @ 100 mls/hr IVPB Q8H-IV [facility]; Protocol Last Admin: 10/15/19 09:23 Dose: 100 mls/hr Heparin Sodium/Dextrose (Heparin Infusion -) 25,000 units in 500 mls @ 20 mls/ hr IVPB TITR [facility]; Protocol Last Admin: 10/15/19 13:44 Dose: 850 units/hr, 17 mls/hr Insulin Aspart (Novolog Vial Sliding Scale -) 1 vial SQ ACHS [facility]; Protocol Last Admin: 10/15/19 18:04 Dose: Not Given Latanoprost (Xalatan 0.005% Eye Drops -) 1 drop OD HS [facility] Last Admin: 10/14/19 23:10 Dose: 1 drop Methylprednisolone Sodium Succinate (Solu-Medrol -) 40 mg IVPUSH BID [facility] Last Admin: 10/15/19 09:39 Dose: 40 mg Metoprolol Tartrate (Lopressor -) 25 mg NGT BID [facility] Pantoprazole Sodium (Protonix Iv) 40 mg IVPB DAILY [facility] Last Admin: 10/15/19 09:22 Dose: 40 mg Timolol Maleate (Timoptic 0.5%) 1 drop OU BID [facility] Last Admin: 10/15/19 09:23 Dose: 1 drop Valsartan (Diovan -) 40 mg NGT DAILY [facility] Last Admin: 10/15/19 09:22 Dose: 40 mg 84 year old woman with history of hypertension, hyperlipidemia, Afib on Eliquis , hyperthyrodism, parkinson's disease, asthma and colon cancer who was admitted following complicated ambulatory inguinal hernia repair. 1. Azotemia 2. Respiratory failure 3. Inguinal hernia repair 4. Hypertension 5. Anemia Renal function stable, elevated BUN likely related to steroids + steroids Continue current medications including ARB and diuretics continue care as per ICU will follow up as needed Dustin Villanueva DO
[2019-10-15 21:16] LABS: BASO % 0.1 % (0-2.0); HEMATOCRIT 28.2 % (32.4-45.2); LYMPH % 4.6 % (8-40); MCH 27.6 pg (25.7-33.7); MEAN CELL VOLUME 86.2 fl (80-96); MEAN PLT VOLUME 7.8 fl (7.5-11.1); MONO % 5.8 % (3.8-10.2); NEUT % 89.5 % (42.8-82.8); PLATELET COUNT 192 K/MM3 (134-434); RBC 3.27 M/mm3 (3.60-5.2); RDW 16.3 % (11.6-15.6); WHITE BLOOD COUNT 11.3 K/mm3 (4.0-10.0)
[2019-10-15 21:33] LABS: ACTIVATED PTT 52.9 SECONDS (25.2-36.5)
--- NOTE | 2019-10-15 21:42 | PN ---
Progress Note, Physician History of Present Illness: EXTUBATED NO ACUTE DISTRESS AFEBRILE WBC IMPROVED BC NO GROWTH - Current Medication List Current Medications: Active Medications Albuterol Sulfate (Ventolin 0.083% Nebulizer Soln -) 1 amp NEB Q6H PRN PRN Reason: SHORT OF BREATH/WHEEZING Diltiazem HCl (Cardizem Injection -) 10 mg IVPUSH Q4H PRN PRN Reason: TACHYCARDIA Fluticasone Propionate (Flonase -) 1 spray NS DAILY [facility] Last Admin: 10/15/19 09:39 Dose: 1 spray Furosemide (Lasix Injection -) 40 mg IVPUSH DAILY [facility] Last Admin: 10/15/19 09:22 Dose: 40 mg Piperacillin Sod/Tazobactam (Sod 3.375 gm/ Dextrose) 50 mls @ 100 mls/hr IVPB Q8H-IV [facility]; Protocol Last Admin: 10/15/19 18:44 Dose: 100 mls/hr Insulin Aspart (Novolog Vial Sliding Scale -) 1 vial SQ ACHS [facility]; Protocol Last Admin: 10/15/19 18:04 Dose: Not Given Latanoprost (Xalatan 0.005% Eye Drops -) 1 drop OD HS [facility] Last Admin: 10/14/19 23:10 Dose: 1 drop Methylprednisolone Sodium Succinate (Solu-Medrol -) 40 mg IVPUSH BID [facility] Last Admin: 10/15/19 09:39 Dose: 40 mg Metoprolol Tartrate (Lopressor -) 25 mg NGT BID [facility] Pantoprazole Sodium (Protonix Iv) 40 mg IVPB DAILY [facility] Last Admin: 10/15/19 09:22 Dose: 40 mg Timolol Maleate (Timoptic 0.5%) 1 drop OU BID [facility] Last Admin: 10/15/19 09:23 Dose: 1 drop Valsartan (Diovan -) 40 mg NGT DAILY [facility] Last Admin: 10/15/19 09:22 Dose: 40 mg - Objective Vital Signs: Vital Signs Temperature 98.4 F 10/15/19 02:00 Pulse Rate 68 10/15/19 18:01 Respiratory Rate 20 10/15/19 18:01 Blood Pressure 158/80 10/15/19 18:01 O2 Sat by Pulse Oximetry (%) 98 10/13/19 18:16 Constitutional: Yes: No Distress Eyes: Yes: Conjunctiva Clear Cardiovascular: Yes: Regular Rate and Rhythm, S1, S2 Respiratory: Yes: Diminished Gastrointestinal: Yes: Normal Bowel Sounds, Soft, Other (SURGICAL WOUND NO ERYTHEMA/DRAINAGE EDMUNDO DRAINS SEROSANGUINOUS FLUID) Labs: CBC, BMP 10/15/19 21:00 10/15/19 06:30 INR, PTT INR 1.27 (0.83-1.09) H 10/15/19 12:15 Assessment/Plan R/O HCAP S/P INCISIONAL HERNIA REPAIR LEUKOCYTOSIS RESOLVED CONTINUE EMPIRIC ZOSYN DISCUSSED WITH DAUGHTER AT BEDSIDE
[2019-10-15] MEDS: ALBUTEROL SO4 0.083% IH SOL 2.5 MG/3 ML VIAL.NEB. NEB PRN (22:11)
[2019-10-15 23:25] LABS: INR 1.28 (0.83-1.09); PROTHROMBIN TIME (PATIENT) 15.2 SEC (9.7-13.0)
[2019-10-15] MEDS: METOPROLOL TARTRATE 50 MG TABLET (FP) NGT SCH (23:55)
[2019-10-15] MEDS: LATANOPROST 0.005% OPHTH SOLN 2.5ML BOTTLE OD SCH (23:58)
[2019-10-16] MEDS: INSULIN SLIDING SCALE (NOVOLOG) 1 VIAL SQ SCH ×5 (00:15→21:41)
[2019-10-16] MEDS ORDERED: DEXTROSE 5%-WATER - 50 ML IVPB ONE ×3 (00:17→17:13)
[2019-10-16] MEDS ORDERED: PIPERACILLIN/TAZOBACTAM 3.375 GM VIAL IVPB ONE ×3 (00:17→17:13)
[2019-10-16] MEDS: PIPERACILLIN/TAZOB 3.375 GM 3.375 GM in DEXTROSE 5%-WATER - 50 ML IVPB SCH ×3 (01:02→17:19)
[2019-10-16] MEDS: ALBUTEROL SO4 0.083% IH SOL 2.5 MG/3 ML VIAL.NEB. NEB PRN ×2 (06:12→22:00)
[2019-10-16 07:03] LABS: BASO % 0.1 % (0-2.0); EOS % 0.3 % (0-4.5); HEMATOCRIT 27.6 % (32.4-45.2); HEMOGLOBIN 9.2 GM/dL (10.7-15.3); LYMPH % 4.8 % (8-40); MCH 28.8 pg (25.7-33.7); MCHC 33.2 g/dl (32.0-36.0); MEAN CELL VOLUME 86.7 fl (80-96); MONO % 3.8 % (3.8-10.2); PLATELET COUNT 196 K/MM3 (134-434); RBC 3.19 M/mm3 (3.60-5.2); RDW 16.7 % (11.6-15.6); WHITE BLOOD COUNT 11.1 K/mm3 (4.0-10.0)
[2019-10-16 07:32] LABS: INR 1.19 (0.83-1.09); PROTHROMBIN TIME (PATIENT) 14.1 SEC (9.7-13.0)
[2019-10-16 07:34] LABS: ACTIVATED PTT 23.4 SECONDS (25.2-36.5)
[2019-10-16 07:58] LABS: ALBUMIN 2.4 g/dl (3.4-5.0); BILIRUBIN,TOTAL 0.4 mg/dL (0.2-1); BLOOD UREA NITROGEN 41.8 mg/dL (7-18); CALCIUM 8.1 mg/dL (8.5-10.1); CREATININE 0.9 mg/dL (0.55-1.3); MAGNESIUM 2.7 mg/dL (1.8-2.4); POTASSIUM 3.6 mmol/L (3.5-5.1); TOT PROT 4.9 g/dl (6.4-8.2)
--- NOTE | 2019-10-16 08:21 | PN ---
Progress Note, Physician Chief Complaint: in ICU extubated yesterday awake alert able to talk to understand and answer appropriately; grand daughter at bedside translates from italian; pt said she wants her NGT removed; no hematuria; VSS stable afebrile no pain no SOB; occ moist cough but CXR better - Current Medication List Current Medications: Active Medications Albuterol Sulfate (Ventolin 0.083% Nebulizer Soln -) 1 amp NEB Q6H PRN PRN Reason: SHORT OF BREATH/WHEEZING Last Admin: 10/16/19 06:12 Dose: 1 amp Diltiazem HCl (Cardizem Injection -) 10 mg IVPUSH Q4H PRN PRN Reason: TACHYCARDIA Fluticasone Propionate (Flonase -) 1 spray NS DAILY [facility] Last Admin: 10/15/19 09:39 Dose: 1 spray Furosemide (Lasix Injection -) 40 mg IVPUSH DAILY [facility] Last Admin: 10/15/19 09:22 Dose: 40 mg Piperacillin Sod/Tazobactam (Sod 3.375 gm/ Dextrose) 50 mls @ 100 mls/hr IVPB Q8H-IV [facility]; Protocol Last Admin: 10/16/19 01:02 Dose: 100 mls/hr Insulin Aspart (Novolog Vial Sliding Scale -) 1 vial SQ ACHS [facility]; Protocol Last Admin: 10/16/19 06:34 Dose: Not Given Latanoprost (Xalatan 0.005% Eye Drops -) 1 drop OD HS [facility] Last Admin: 10/15/19 23:58 Dose: 1 drop Methylprednisolone Sodium Succinate (Solu-Medrol -) 40 mg IVPUSH BID [facility] Last Admin: 10/15/19 23:58 Dose: 40 mg Metoprolol Tartrate (Lopressor -) 25 mg NGT BID [facility] Last Admin: 10/15/19 23:55 Dose: Not Given Pantoprazole Sodium (Protonix Iv) 40 mg IVPB DAILY [facility] Last Admin: 10/15/19 09:22 Dose: 40 mg Timolol Maleate (Timoptic 0.5%) 1 drop OU BID [facility] Last Admin: 10/15/19 23:58 Dose: 1 drop Valsartan (Diovan -) 40 mg NGT DAILY [facility] Last Admin: 10/15/19 09:22 Dose: 40 mg - Objective Vital Signs: Vital Signs Temperature 98.0 F 10/15/19 22:00 Pulse Rate 77 10/16/19 06:00 Respiratory Rate 26 H 10/16/19 06:00 Blood Pressure 143/73 10/16/19 06:00 O2 Sat by Pulse Oximetry (%) 97 10/15/19 21:00 Constitutional: Yes: No Distress, Calm Eyes: Yes: Conjunctiva Clear HENT: Yes: Atraumatic Neck: Yes: Supple Cardiovascular: No: Regular Rate and Rhythm Respiratory: Yes: Diminished Gastrointestinal: Yes: Soft, Other (wound dressed no bleed). No: Tenderness Genitourinary: Yes: Graham Present. No: Hematuria Musculoskeletal: No: Joint Stiffness, Joint Swelling Extremities: No: Cold, Cool, Cyanosis Edema: No (hands edema resolved) Integumentary: No: Rash, Venous Stasis Changes Neurological: Yes: Alert, Oriented ...Motor Strength: WNL Psychiatric: Yes: Alert, Oriented. No: Agitated, Suicidal Ideation Labs: CBC, BMP 10/16/19 06:05 10/16/19 06:05 INR, PTT INR 1.19 (0.83-1.09) H 10/16/19 06:05 - ....Imaging Chest X-ray: Report Reviewed Other: Report Reviewed Assessment/Plan 83 yo F h/of Colon Ca (s/p Hemicolectomy, 02/2019), HTN, HLD, Afib ( on Eliquis) , Diastolic CHF, HLD, Hyperthyroidism s/p hernia repair, adhesions, s/p incidental enterotomy and partial small bowel resection / reanastomosis and mesh placement, difficult airway access, airway swelling, intubated postop for airway protection admitted go ICU extubated; NGT; s/p abdominal surgery - surgery f/u for NGT and feeds pathology no malignancy hematuria after IV heparin cleared, restarted IV heparin without bolus bradycardia hypoTA resolved; cardiology f/u prerenal azotemia and low electrolytes - per ICU, also asked renal input r/o sepsis seen by ID - ATB per ID taper iv steroids for airway swelling and wheezing IVF; cont meds; iv heparin PTT checks DVT PFX, decubs, aspiration PFX; f/u labs; I/O Graham; incentive spirometry, bedside PT; d.w staff d/w pts' grand daughter at bedside prognosis guarded t time 35 min
--- NOTE | 2019-10-16 08:45 | PN ---
Physical Exam: SUBJECTIVE: Patient seen and examined. Off sedation and awake this morning. Patient was able to follow commands and respond to questions. Extubated without complications. Patient tolerating venti mask well. EDMUNDO drain with increased sanguineous output (~170cc) yesterday with position change, surgery evaluated, heparin ggt discontinued. Hct remains stable. Continued on empiric zosyn. OBJECTIVE: Vital Signs Period Temp Pulse Resp BP Sys/Ugarte Pulse Ox Last 24 Hr 98.0 F 61-77 13-26 108-185/60-99 97 GENERAL: Awake, alert, following commands. HEAD: Normal with no signs of trauma. EYES: PERRL, EOMI ENT: Dry mucous membranes. NECK: Trachea midline. LUNGS: Clear to auscultation bilaterally, mild diffuse wheezing, no rales or rhonchi. No accessory muscle use. HEART: Regular rate and rhythm, S1, S2 without murmur, rub or gallop. ABDOMEN: Soft, nontender, nondistended, normoactive bowel sounds, no guarding, no rebound. Surgical incisions clean, dry, and intact. EXTREMITIES: 2+ pulses, warm, edema improved from prior exam, still edema LUE> RUE with bilateral LE edema, not pitting. NEUROLOGICAL: Normal speech, gait not observed. Laboratory Results - last 24 hr 10/15/19 10/15/19 10/15/19 06:30 06:30 11:19 WBC RBC Hgb Hct MCV MCH MCHC RDW Plt Count MPV Absolute Neuts (auto) Neutrophils % Neutrophils % (Manual) 95.0 H Band Neutrophils % 0.0 Lymphocytes % Lymphocytes % (Manual) 3.0 L D Monocytes % Monocytes % (Manual) 2 L D Eosinophils % Eosinophils % (Manual) 0.0 Basophils % Basophils % (Manual) 0.0 Myelocytes % (Man) 0 Promyelocytes % (Man) 0 Blast Cells % (Manual) 0 Nucleated RBC % Metamyelocytes 0 Hypochromia 0 Platelet Estimate Normal Polychromasia 0 Poikilocytosis 1+ Anisocytosis 1+ Microcytosis 1+ Macrocytosis 0 Ovalocytes 1+ PT with INR INR PTT (Actin FS) 169.0 H Sodium Potassium Chloride Carbon Dioxide Anion Gap BUN Creatinine Est GFR (CKD-EPI)AfAm Est GFR (CKD-EPI)NonAf POC Glucometer 152 Random Glucose Calcium Phosphorus Magnesium Total Bilirubin AST ALT Alkaline Phosphatase Total Protein Albumin 10/15/19 10/15/19 10/15/19 12:15 17:27 21:00 WBC RBC Hgb Hct MCV MCH MCHC RDW Plt Count MPV Absolute Neuts (auto) Neutrophils % Neutrophils % (Manual) Band Neutrophils % Lymphocytes % Lymphocytes % (Manual) Monocytes % Monocytes % (Manual) Eosinophils % Eosinophils % (Manual) Basophils % Basophils % (Manual) Myelocytes % (Man) Promyelocytes % (Man) Blast Cells % (Manual) Nucleated RBC % Metamyelocytes Hypochromia Platelet Estimate Polychromasia Poikilocytosis Anisocytosis Microcytosis Macrocytosis Ovalocytes PT with INR 15.00 H 15.20 H INR 1.27 H 1.28 H PTT (Actin FS) 109.4 H 52.9 H Sodium Potassium Chloride Carbon Dioxide Anion Gap BUN Creatinine Est GFR (CKD-EPI)AfAm Est GFR (CKD-EPI)NonAf POC Glucometer 130 Random Glucose Calcium Phosphorus Magnesium Total Bilirubin AST ALT Alkaline Phosphatase Total Protein Albumin 10/15/19 10/16/19 10/16/19 21:00 00:05 06:05 WBC 11.3 H RBC 3.27 L Hgb 9.0 L Hct 28.2 L MCV 86.2 MCH 27.6 MCHC 32.0 RDW 16.3 H Plt Count 192 MPV 7.8 Absolute Neuts (auto) 10.1 H Neutrophils % 89.5 H Neutrophils % (Manual) Band Neutrophils % Lymphocytes % 4.6 L Lymphocytes % (Manual) Monocytes % 5.8 Monocytes % (Manual) Eosinophils % 0.0 Eosinophils % (Manual) Basophils % 0.1 Basophils % (Manual) Myelocytes % (Man) Promyelocytes % (Man) Blast Cells % (Manual) Nucleated RBC % 0 Metamyelocytes Hypochromia Platelet Estimate Polychromasia Poikilocytosis Anisocytosis Microcytosis Macrocytosis Ovalocytes PT with INR 14.10 H INR 1.19 H PTT (Actin FS) 23.4 L Sodium Potassium Chloride Carbon Dioxide Anion Gap BUN Creatinine Est GFR (CKD-EPI)AfAm Est GFR (CKD-EPI)NonAf POC Glucometer 135 Random Glucose Calcium Phosphorus Magnesium Total Bilirubin AST ALT Alkaline Phosphatase Total Protein Albumin 10/16/19 10/16/19 10/16/19 06:05 06:05 06:33 WBC 11.1 H RBC 3.19 L Hgb 9.2 L Hct 27.6 L MCV 86.7 MCH 28.8 MCHC 33.2 RDW 16.7 H Plt Count 196 MPV 8.0 Absolute Neuts (auto) 10.1 H Neutrophils % 91.0 H Neutrophils % (Manual) Band Neutrophils % Lymphocytes % 4.8 L Lymphocytes % (Manual) Monocytes % 3.8 Monocytes % (Manual) Eosinophils % 0.3 D Eosinophils % (Manual) Basophils % 0.1 Basophils % (Manual) Myelocytes % (Man) Promyelocytes % (Man) Blast Cells % (Manual) Nucleated RBC % 0 Metamyelocytes Hypochromia Platelet Estimate Polychromasia Poikilocytosis Anisocytosis Microcytosis Macrocytosis Ovalocytes PT with INR INR PTT (Actin FS) Sodium 144 Potassium 3.6 Chloride 107 Carbon Dioxide 33 H Anion Gap 4 L BUN 41.8 H Creatinine 0.9 Est GFR (CKD-EPI)AfAm 68.53 Est GFR (CKD-EPI)NonAf 59.13 POC Glucometer 141 Random Glucose 143 H Calcium 8.1 L Phosphorus 3.0 Magnesium 2.7 H Total Bilirubin 0.4 AST 22 ALT 48 Alkaline Phosphatase 58 Total Protein 4.9 L Albumin 2.4 L Active Medications Generic Name Dose Route Start Last Admin Trade Name Freq PRN Reason Stop Dose Admin Albuterol Sulfate 1 amp 10/15/19 17:40 10/16/19 06:12 Ventolin 0.083% Nebulizer Soln - NEB 1 amp Q6H PRN Administration SHORT OF BREATH/WHEEZING Diltiazem HCl 10 mg 10/12/19 17:17 Cardizem Injection - IVPUSH Q4H PRN TACHYCARDIA Fluticasone Propionate 1 spray 10/09/19 10:00 10/15/19 09:39 Flonase - NS 1 spray DAILY [facility] Administration Furosemide 40 mg 10/14/19 12:30 10/15/19 09:22 Lasix Injection - IVPUSH 40 mg DAILY [facility] Administration Piperacillin Sod/Tazobactam 50 mls @ 100 mls/hr 10/12/19 12:00 10/16/19 01:02 Sod 3.375 gm/ Dextrose IVPB 100 mls/hr Q8H-IV [facility] Administration Protocol Insulin Aspart 1 vial 10/12/19 16:30 10/16/19 06:34 Novolog Vial Sliding Scale - SQ Not Given ACHS [facility] Protocol Latanoprost 1 drop 10/08/19 22:00 10/15/19 23:58 Xalatan 0.005% Eye Drops - OD 1 drop HS [facility] Administration Methylprednisolone Sodium Succinate 40 mg 10/15/19 10:00 10/15/19 23:58 Solu-Medrol - IVPUSH 40 mg BID [facility] Administration Metoprolol Tartrate 25 mg 10/14/19 07:33 10/15/19 23:55 Lopressor - NGT Not Given BID [facility] Pantoprazole Sodium 40 mg 10/11/19 17:30 10/15/19 09:22 Protonix Iv IVPB 40 mg DAILY [facility] Administration Timolol Maleate 1 drop 10/08/19 22:00 10/15/19 23:58 Timoptic 0.5% OU 1 drop BID [facility] Administration Valsartan 40 mg 10/14/19 10:00 10/15/19 09:22 Diovan - NGT 40 mg DAILY [facility] Administration ASSESSMENT/PLAN: 84 y/o/f with PMH of HTN, HLD, Afib(on Eliquis), HFpEF, Hyperthyroidism, Parkinson's Disease, Asthma and Colon CA (s/p hemicolectomy 02/2019) presents after complicated ambulatory inguinal hernia repair surgery, POD #7. Patient was extubated on 10/10 but needed to be intubated again on 10/12 for respiratory distress. Extubated second time on 10/15, now on venturi mask with improving CXR. #Neurology - Extubated 10/15 - AAOx3, monitor #Pulmonary - Extubated 10/10. Re-intubated on 10/12 for respiratory distress with bradycardia. Extubated again on 10/15. Tolerating venturi mask well. Transitioned to 6L NC on morning rounds with continued saturation >95% - Albuterol PRN - CXR 10/16: "improvement" - CT neck soft tissue 10/13: multinodular goiter extending into the right superior mediastinum. Mediastinal adenopathy. Right pleural effusion. - Hx of asthma, will monitor for signs of exacerbation - Solu-medrol 40mg IV BID, start taper (10/16) to daily dosing #Cardiovascular - AFib: Cardizem 10mg IV Q4 PRN for rate control, Lopressor IV D/Misha - Hx of HTN, home meds Lopressor and Losartan held as per surgery - Continue Lasix 40 mg, hold if MAP <70 - Holding Heparin GGT, patient with sanguineous output into EDMUNDO - Restarting home eloquis via NGT #GI - POD#8 of inguinal hernia repair with enterotomy and mesh placement - NG Tube in place, will DC if surgery agrees to advancing diet - Speech/Swallow eval recommending continuing NG tube feeds for 10/15, consider starting diet after re-eval - Barium study ordered for 10/17, will continue tube feeds until after this study - Tube feed rate per dietary #ID - Empiric Zosyn as per ID - Blood Cx negative - Negative for leukocytosis, afebrile #Heme/Onc - Hgb/Hct - 10.3/31.2 - Consult placed due to history of Colon CA (last PET done 3 weeks ago) - F/U outpatient with Dr. Walton #Endo - Hold PO Methimazole as Pt. is NPO s/p enterotomy, (Methimazole can be crushed after discussion with Pharmacy), no IV equivalents in hospital. - Hx of DM, on Novolog SS #Renal - Monitor I/Os, UOP no longer sanguineous #FEN - Holding fluids due to peripheral edema - NPO, continue NG tube feeds #DVT PPX - SCDs - Heparin GGT restarted 10/14, discontinued 10/15 due to sanguinary EDMUNDO output - Spoke with surgery, plan to restart home eloquis through NG tube - Protonix - PT evaluation #Dispo - Continue ICU monitoring Visit type - Emergency Visit Emergency Visit: Yes ED Registration Date: 10/08/19 Care time: The patient presented to the Emergency Department on the above date and was hospitalized for further evaluation of their emergent condition. - New Patient This patient is new to me today: No - Critical Care Critical Care patient: Yes Total Critical Care Time (in minutes): 36 Critical Care Statement: The care of this patient involved high complexity decision making to prevent further life threatening deterioration of the patient 's condition and/or to evaluate & treat vital organ system(s) failure or risk of failure. ATTENDING PHYSICIAN STATEMENT I saw and evaluated the patient. I reviewed the resident's note and discussed the case with the resident. I agree with the resident's findings and plan as documented. SUBJECTIVE: OBJECTIVE: ASSESSMENT AND PLAN:
[2019-10-16] MEDS: PROPOFOL 1,000,000 MCG/100 ML VIAL IVPB SCH (09:00)
[2019-10-16] MEDS: METOPROLOL TARTRATE 50 MG TABLET (FP) NGT SCH (09:44)
[2019-10-16] MEDS: PANTOPRAZOLE SODIUM 40 MG VIAL IVPB SCH (09:44)
[2019-10-16] MEDS: VALSARTAN 40 MG TABLET (FP) NGT SCH (09:44)
[2019-10-16] MEDS: FLUTICASONE PROP 0.05% 16 GM NASAL SPRAY NS SCH (09:46)
[2019-10-16] MEDS: TIMOLOL 0.5% OPHTHALMIC SOL 5 ML BOTTLE OU SCH ×2 (09:46→21:46)
[2019-10-16] MEDS: FUROSEMIDE 40 MG/4 ML INJECTABLE VIAL IVPUSH SCH (09:46)
[2019-10-16] MEDS: methylPREDNISolone NA SUCC 40 MG/1 ML VIAL IVPUSH SCH (09:46)
[2019-10-16 10:01] LABS: ANISOCYTOSIS 1+; PLATELET ESTIMATE NORMAL
--- NOTE | 2019-10-16 10:14 | PN ---
Progress Note, [employer] - Note Progress Note: Selected Entries 10/15/19 10/16/19 10/16/19 22:00 01:00 02:00 Supper NPO Blood Pressure 161/69 130/65 10/16/19 10/16/19 10/16/19 03:00 04:00 05:00 Supper Blood Pressure 120/64 108/60 115/70 10/16/19 06:00 Supper Blood Pressure 143/73 Laboratory Tests 10/14/19 10/16/19 06:30 06:05 WBC 6.1 11.1 H WBC elevated. Afebrile. Weak. Oriented. Verbal. Requesting to eat. Voice improving, louder,dysphonic, s/p intubation x 2. Aspiration risk, especially for liquids. NGT feedings. Suggest MBS 10/17 before PO trials to r/o aspiration and initiate PO diet with safety.
--- NOTE | 2019-10-16 10:32 | PN ---
Progress Note, Physician Chief Complaint: Clinically better today History of Present Illness: Patient was seen and examined in ICU. Awake. Chart was reviewed AF with variable HR Rate controlled - Current Medication List Current Medications: Active Medications Albuterol Sulfate (Ventolin 0.083% Nebulizer Soln -) 1 amp NEB Q6H PRN PRN Reason: SHORT OF BREATH/WHEEZING Last Admin: 10/16/19 06:12 Dose: 1 amp Diltiazem HCl (Cardizem Injection -) 10 mg IVPUSH Q4H PRN PRN Reason: TACHYCARDIA Fluticasone Propionate (Flonase -) 1 spray NS DAILY [facility] Last Admin: 10/16/19 09:46 Dose: 1 spray Furosemide (Lasix Injection -) 40 mg IVPUSH DAILY [facility] Last Admin: 10/16/19 09:46 Dose: 40 mg Piperacillin Sod/Tazobactam (Sod 3.375 gm/ Dextrose) 50 mls @ 100 mls/hr IVPB Q8H-IV [facility]; Protocol Last Admin: 10/16/19 09:47 Dose: 100 mls/hr Insulin Aspart (Novolog Vial Sliding Scale -) 1 vial SQ ACHS [facility]; Protocol Last Admin: 10/16/19 06:34 Dose: Not Given Latanoprost (Xalatan 0.005% Eye Drops -) 1 drop OD HS [facility] Last Admin: 10/15/19 23:58 Dose: 1 drop Methylprednisolone Sodium Succinate (Solu-Medrol -) 40 mg IVPUSH BID [facility] Last Admin: 10/16/19 09:46 Dose: 40 mg Metoprolol Tartrate (Lopressor -) 25 mg NGT BID [facility] Last Admin: 10/16/19 09:44 Dose: 25 mg Pantoprazole Sodium (Protonix Iv) 40 mg IVPB DAILY [facility] Last Admin: 10/16/19 09:44 Dose: 40 mg Timolol Maleate (Timoptic 0.5%) 1 drop OU BID [facility] Last Admin: 10/16/19 09:46 Dose: 1 drop Valsartan (Diovan -) 40 mg NGT DAILY [facility] Last Admin: 10/16/19 09:44 Dose: 40 mg - Objective Vital Signs: Vital Signs Temperature 98.0 F 10/15/19 22:00 Pulse Rate 77 10/16/19 06:00 Respiratory Rate 26 H 10/16/19 06:00 Blood Pressure 143/73 10/16/19 06:00 O2 Sat by Pulse Oximetry (%) 97 10/15/19 21:00 Eyes: Yes: PERRL HENT: Yes: Atraumatic Neck: Yes: Supple Cardiovascular: Yes: Pulse Irregular, S1, S2 Respiratory: Yes: Diminished Gastrointestinal: Yes: Normal Bowel Sounds, Other (post op) Edema: No Labs: CBC, BMP 10/16/19 06:05 10/16/19 06:05 INR, PTT INR 1.19 (0.83-1.09) H 10/16/19 06:05 Problem List - Problems (1) Afib Code(s): I48.91 - UNSPECIFIED ATRIAL FIBRILLATION Qualifiers: Atrial fibrillation type: chronic (2) Anemia Code(s): D64.9 - ANEMIA, UNSPECIFIED (3) Glaucoma Code(s): H40.9 - UNSPECIFIED GLAUCOMA (4) Hyperthyroidism Code(s): E05.90 - THYROTOXICOSIS, UNSP WITHOUT THYROTOXIC CRISIS OR STORM (5) New onset atrial fibrillation Code(s): I48.91 - UNSPECIFIED ATRIAL FIBRILLATION (6) S/P left hemicolectomy Code(s): Z90.49 - ACQUIRED ABSENCE OF OTHER SPECIFIED PARTS OF DIGESTIVE TRACT (7) Acute on chronic diastolic (congestive) heart failure Code(s): I50.33 - ACUTE ON CHRONIC DIASTOLIC (CONGESTIVE) HEART FAILURE (8) Asthma Code(s): J45.909 - UNSPECIFIED ASTHMA, UNCOMPLICATED Qualifiers: Asthma severity: mild Asthma persistence: intermittent Asthma complication type: unspecified Qualified Code(s): J45.20 - Mild intermittent asthma, uncomplicated (9) CAD (coronary artery disease) Code(s): I25.10 - ATHSCL HEART DISEASE OF [place] CORONARY ARTERY W/O ANG PCTRS Qualifiers: Coronary Disease-Associated Artery/Lesion type: [place] artery [place] vs. transplanted heart: [place] heart Associated angina: without angina Qualified Code(s): I25.10 - Atherosclerotic heart disease of [place] coronary artery without angina pectoris (10) HTN (hypertension) Code(s): I10 - ESSENTIAL (PRIMARY) HYPERTENSION Qualifiers: Hypertension type: essential hypertension Qualified Code(s): I10 - Essential (primary) hypertension (11) Parkinson disease Code(s): G20 - PARKINSON'S DISEASE Assessment/Plan 1. Acute respiratory failure, currently stable 2. Post abdominal hernia repair complicated by small bowel resection and mesh placement 3. Persistent atrial Fibrillation [id number] score of 5 4. Diastolic LV dysfunction with clinical class 0 NYHA classification LV failure , generalized edema 5. HTN 6. DM 7. Hyperthyroidism 8. Acute renal insufficiency 9. Hematuria, resolved 10. History of cervical carcinoma post resection 11. History of colon carcinoma post javi-colectomy PLAN: 1. Post op management 2. IV Cardizem as needed for rate control 3. Lopressor and Diovan given via NG 4. Heparin and eventually with Eliquis, provided no further bleed/hematuria 5. Antibiotics Supportive care Johann Cowan MD
--- NOTE | 2019-10-16 11:17 | PN ---
Teaching Attending Note Name of Resident: Ru Hill ATTENDING PHYSICIAN STATEMENT I saw and evaluated the patient. I reviewed the resident's note and discussed the case with the resident. I agree with the resident's findings and plan as documented. SUBJECTIVE: Pt seen and examined in the ICU. Extubated yesterday without incident. No events overnight. OBJECTIVE: Vital Signs Period Temp Pulse Resp BP Sys/Ugarte Pulse Ox Last 24 Hr 98.0 F 61-77 108-185/60-99 97 Intake & Output 10/13/19 10/14/19 10/15/19 10/16/19 23:59 23:59 23:59 23:59 Intake Total 754 825 662.5 100 Output Total 1150 1265 2580 410 Balance -396 -440 -1917.5 -310 Weight 83.552 kg 84.323 kg 83.2 kg 84.6 kg Gen: NAD at rest Heart: RRR Lung: decreased breath sounds at the bases Abd: soft, nontender Ext: no edema CBC, BMP 10/16/19 06:05 10/16/19 06:05 Active Medications Albuterol Sulfate (Ventolin 0.083% Nebulizer Soln -) 1 amp NEB Q6H PRN PRN Reason: SHORT OF BREATH/WHEEZING Last Admin: 10/16/19 06:12 Dose: 1 amp Diltiazem HCl (Cardizem Injection -) 10 mg IVPUSH Q4H PRN PRN Reason: TACHYCARDIA Fluticasone Propionate (Flonase -) 1 spray NS DAILY [facility] Last Admin: 10/16/19 09:46 Dose: 1 spray Furosemide (Lasix Injection -) 40 mg IVPUSH DAILY [facility] Last Admin: 10/16/19 09:46 Dose: 40 mg Piperacillin Sod/Tazobactam (Sod 3.375 gm/ Dextrose) 50 mls @ 100 mls/hr IVPB Q8H-IV [facility]; Protocol Last Admin: 10/16/19 09:47 Dose: 100 mls/hr Insulin Aspart (Novolog Vial Sliding Scale -) 1 vial SQ ACHS [facility]; Protocol Last Admin: 10/16/19 06:34 Dose: Not Given Latanoprost (Xalatan 0.005% Eye Drops -) 1 drop OD HS [facility] Last Admin: 10/15/19 23:58 Dose: 1 drop Methylprednisolone Sodium Succinate (Solu-Medrol -) 40 mg IVPUSH DAILY [facility] Metoprolol Tartrate (Lopressor -) 25 mg NGT BID [facility] Last Admin: 10/16/19 09:44 Dose: 25 mg Pantoprazole Sodium (Protonix Iv) 40 mg IVPB DAILY [facility] Last Admin: 10/16/19 09:44 Dose: 40 mg Timolol Maleate (Timoptic 0.5%) 1 drop OU BID [facility] Last Admin: 10/16/19 09:46 Dose: 1 drop Valsartan (Diovan -) 40 mg NGT DAILY [facility] Last Admin: 10/16/19 09:44 Dose: 40 mg ASSESSMENT AND PLAN: s/p Incisional Hernia Repair with mesh/SB resection s/p Acute Respiratory Failure Atrial Fibrillation HTN DM Hyperthyroidism h/o Colon Ca h/o Cervical Ca - taper steroids - pain control - rate control - resume anticoagulation if ok with surgery - PO per surgery - DVT/GI prophylaxis - can monitor on floor
--- NOTE | 2019-10-16 13:16 | PN ---
Progress Note (short form) - Note Progress Note: 84yo F s/p ventral hernia repair with prolonged and reintubation for respiratory distress. Pt was extubated yesterday and is doing well. Pt currently on feeds through NG tube. Pt passing flatus. Complains of mild abd pain. Last Vital Signs Temp Pulse Resp BP Pulse Ox 98.4 F 89 45 H 130/82 97 10/16/19 08:00 10/16/19 12:00 10/16/19 10:00 10/16/19 12:00 10/16/19 09:00 CBC, BMP 10/16/19 06:05 10/16/19 06:05 PE: Gen: A&O X3 Resp: breathing comfortably Abd: soft, nondistended, mild diffuse tenderness. Incision clean with no erythema or discharge. Problem List - Problems (1) S/P repair of ventral hernia Assessment/Plan: Plan -may consider advancing diet -pt OOB/ambulate with PT, my D/c leos once ambulating -may restart Eiliquis -GI ppx Pt seen and examined with Dr. Alvarado who agrees with plan Code(s): Z98.890 - OTHER SPECIFIED POSTPROCEDURAL STATES; Z87.19 - PERSONAL HISTORY OF OTHER DISEASES OF THE DIGESTIVE SYSTEM
[2019-10-16] MEDS ORDERED: dilTIAZem HCL 50 MG/10 ML - 10 ML VIAL IVPUSH PRN (19:42)
[2019-10-16] MEDS: APIXABAN 5 MG TABLET PEG SCH (21:40)
[2019-10-16] MEDS: METOPROLOL TARTRATE 25 MG TABLET (FP) NGT SCH ×2 (21:40→21:44)
--- NOTE | 2019-10-16 21:40 | PN ---
Progress Note, Physician History of Present Illness: EXTUBATED NO ACUTE DISTRESS AFEBRILE WBC IMPROVED BC NO GROWTH - Current Medication List Current Medications: Active Medications Albuterol Sulfate (Ventolin 0.083% Nebulizer Soln -) 1 amp NEB Q6H PRN PRN Reason: SHORT OF BREATH/WHEEZING Apixaban (Eliquis -) 5 mg PEG BID [facility] Diltiazem HCl (Cardizem Injection -) 10 mg IVPUSH Q4H PRN PRN Reason: TACHYCARDIA Fluticasone Propionate (Flonase -) 1 spray NS DAILY [facility] Furosemide (Lasix Injection -) 40 mg IVPUSH DAILY [facility] Piperacillin Sod/Tazobactam (Sod 3.375 gm/ Dextrose) 50 mls @ 100 mls/hr IVPB Q8H-IV [facility]; Protocol Piperacillin Sod/Tazobactam (Sod 3.375 gm/ Dextrose) 50 mls @ 100 mls/hr IVPB Q8H-IV [facility]; Protocol Stop: 10/17/19 18:29 Insulin Aspart (Novolog Vial Sliding Scale -) 1 vial SQ ACHS [facility]; Protocol Latanoprost (Xalatan 0.005% Eye Drops -) 1 drop OD HS [facility] Methylprednisolone Sodium Succinate (Solu-Medrol -) 40 mg IVPUSH DAILY [facility] Metoprolol Tartrate (Lopressor -) 25 mg NGT BID [facility] Pantoprazole Sodium (Protonix Iv) 40 mg IVPB DAILY [facility] Timolol Maleate (Timoptic 0.5%) 1 drop OU BID [facility] Valsartan (Diovan -) 40 mg NGT DAILY [facility] - Objective Vital Signs: Vital Signs Temperature 97.8 F 10/16/19 21:14 Pulse Rate 78 10/16/19 21:14 Respiratory Rate 18 10/16/19 21:14 Blood Pressure 138/96 10/16/19 21:14 O2 Sat by Pulse Oximetry (%) 97 10/16/19 19:44 Constitutional: Yes: No Distress Eyes: Yes: Conjunctiva Clear Cardiovascular: Yes: Regular Rate and Rhythm, S1, S2 Respiratory: Yes: CTA Bilaterally Gastrointestinal: Yes: Normal Bowel Sounds, Soft, Abdomen, Obese Edema: No Labs: CBC, BMP 10/16/19 06:05 10/16/19 06:05 INR, PTT INR 1.19 (0.83-1.09) H 10/16/19 06:05 Assessment/Plan R/O HCAP S/P INCISIONAL HERNIA REPAIR LEUKOCYTOSIS RESOLVED CONTINUE EMPIRIC ZOSYN DISCUSSED WITH DAUGHTER AT BEDSIDE
[2019-10-16] MEDS: LATANOPROST 0.005% OPHTH SOLN 2.5ML BOTTLE OD SCH (21:47)
[2019-10-17] MEDS ORDERED: PIPERACILLIN/TAZOBACTAM 3.375 GM VIAL IVPB ONE ×3 (02:01→16:02)
[2019-10-17] MEDS ORDERED: DEXTROSE 5%-WATER - 50 ML IVPB ONE ×3 (02:02→16:02)
[2019-10-17] MEDS: PIPERACILLIN/TAZOB 3.375 GM 3.375 GM in DEXTROSE 5%-WATER - 50 ML IVPB SCH ×3 (02:03→17:20)
[2019-10-17] MEDS: ALBUTEROL SO4 0.083% IH SOL 2.5 MG/3 ML VIAL.NEB. NEB PRN ×2 (04:21→16:58)
[2019-10-17] MEDS ORDERED: ACETAMINOPHEN 1000 MG/100 ML VIAL (NON FORMULARY) IVPB ONE (06:00)
[2019-10-17] MEDS: INSULIN SLIDING SCALE (NOVOLOG) 1 VIAL SQ SCH ×4 (06:18→22:11)
[2019-10-17 06:55] LABS: BASO % 0.1 % (0-2.0); EOS % 0.1 % (0-4.5); HEMOGLOBIN 8.5 GM/dL (10.7-15.3); LYMPH % 8.4 % (8-40); MCH 28.8 pg (25.7-33.7); MCHC 32.9 g/dl (32.0-36.0); MEAN CELL VOLUME 87.5 fl (80-96); MEAN PLT VOLUME 8.4 fl (7.5-11.1); MONO % 7.1 % (3.8-10.2); NEUT % 84.3 % (42.8-82.8); PLATELET COUNT 195 K/MM3 (134-434); RBC 2.97 M/mm3 (3.60-5.2); RDW 16.8 % (11.6-15.6); WHITE BLOOD COUNT 10.7 K/mm3 (4.0-10.0)
[2019-10-17 07:26] LABS: BLOOD UREA NITROGEN 34.5 mg/dL (7-18); CALCIUM 8.4 mg/dL (8.5-10.1); CREATININE 0.8 mg/dL (0.55-1.3); POTASSIUM 3.8 mmol/L (3.5-5.1)
--- NOTE | 2019-10-17 08:23 | PN ---
Progress Note, Physician Chief Complaint: in bed awake alert NAD had some abd pain earlier better with tylenol; IV heparin off, on po eliquis; no hematuria but has some blood in abd wound drain; has some moist cough; Graham and NGT in daughter Yogi at bedside answers simple questions appropriately; moves U/LE bilat at command; has some bruises both UE (?venipunctures?) no more hands edema. - Current Medication List Current Medications: Active Medications Albuterol Sulfate (Ventolin 0.083% Nebulizer Soln -) 1 amp NEB Q6H PRN PRN Reason: SHORT OF BREATH/WHEEZING Last Admin: 10/17/19 04:21 Dose: 1 amp Apixaban (Eliquis -) 5 mg PEG BID [facility] Last Admin: 10/16/19 21:40 Dose: 5 mg Diltiazem HCl (Cardizem Injection -) 10 mg IVPUSH Q4H PRN PRN Reason: TACHYCARDIA Fluticasone Propionate (Flonase -) 1 spray NS DAILY [facility] Furosemide (Lasix Injection -) 40 mg IVPUSH DAILY [facility] Piperacillin Sod/Tazobactam (Sod 3.375 gm/ Dextrose) 50 mls @ 100 mls/hr IVPB Q8H-IV [facility]; Protocol Piperacillin Sod/Tazobactam (Sod 3.375 gm/ Dextrose) 50 mls @ 100 mls/hr IVPB Q8H-IV [facility]; Protocol Stop: 10/17/19 18:29 Last Admin: 10/17/19 02:03 Dose: 100 mls/hr Insulin Aspart (Novolog Vial Sliding Scale -) 1 vial SQ ACHS [facility]; Protocol Last Admin: 10/17/19 06:18 Dose: Not Given Latanoprost (Xalatan 0.005% Eye Drops -) 1 drop OD HS [facility] Last Admin: 10/16/19 21:47 Dose: 1 drop Methylprednisolone Sodium Succinate (Solu-Medrol -) 40 mg IVPUSH DAILY [facility] Metoprolol Tartrate (Lopressor -) 25 mg NGT BID [facility] Last Admin: 10/16/19 21:44 Dose: Not Given Pantoprazole Sodium (Protonix Iv) 40 mg IVPB DAILY [facility] Timolol Maleate (Timoptic 0.5%) 1 drop OU BID [facility] Last Admin: 10/16/19 21:46 Dose: 1 drop Valsartan (Diovan -) 40 mg NGT DAILY [facility] - Objective Vital Signs: Vital Signs Temperature 98 F 10/17/19 06:00 Pulse Rate 72 10/17/19 06:00 Respiratory Rate 24 H 10/17/19 06:00 Blood Pressure 158/70 10/17/19 06:48 O2 Sat by Pulse Oximetry (%) 97 10/16/19 19:44 Constitutional: Yes: No Distress, Calm Eyes: Yes: Conjunctiva Clear HENT: Yes: Atraumatic Neck: Yes: Supple Cardiovascular: No: Regular Rate and Rhythm Respiratory: Yes: CTA Bilaterally Gastrointestinal: Yes: Soft, Other (drain serosg fluid). No: Tenderness Genitourinary: No: Hematuria Musculoskeletal: No: Joint Stiffness, Joint Swelling Extremities: No: Calf Tenderness, Cold, Cool, Cyanosis Edema: No Integumentary: No: Rash, Venous Stasis Changes Neurological: Yes: Alert ...Motor Strength: WNL Psychiatric: Yes: Alert. No: Agitated, Suicidal Ideation Labs: CBC, BMP 10/17/19 05:40 10/17/19 05:40 INR, PTT INR 1.19 (0.83-1.09) H 10/16/19 06:05 - ....Imaging Other: Report Reviewed Assessment/Plan 83 yo F h/of Colon Ca (s/p Hemicolectomy, 02/2019), HTN, HLD, Afib ( on Eliquis) , Diastolic CHF, HLD, Hyperthyroidism s/p hernia repair, adhesions, s/p incidental enterotomy and partial small bowel resection / reanastomosis and mesh placement, difficult airway access, airway swelling, intubated postop for airway protection admitted go ICU, now extubated; improving slowly; NGT; s/p abdominal surgery - surgery f/u for NGT and feeds pathology no malignancy po eliquis, off iv / sq heparin; some serosg drainage / abd drain bradycardia hypoTA resolved; cardiology f/u; on BP meds and iv lasix; prerenal azotemia and low electrolytes - per ICU, renal f/u ATB per ID DVT PFX, decubs, aspiration PFX; f/u labs; I/O Graham; incentive spirometry, bedside PT; d.w staff d/w pts' daughter at bedside prognosis guarded
--- NOTE | 2019-10-17 09:14 | PN ---
Progress Note, Physician History of Present Illness: Hemodynamics stable with rate-controlled afib. Tolerating enteral feeds via NGT , mild incisional pain, passing flatus. - Current Medication List Current Medications: Active Medications Albuterol Sulfate (Ventolin 0.083% Nebulizer Soln -) 1 amp NEB Q6H PRN PRN Reason: SHORT OF BREATH/WHEEZING Last Admin: 10/17/19 04:21 Dose: 1 amp Apixaban (Eliquis -) 5 mg PEG BID [facility] Last Admin: 10/16/19 21:40 Dose: 5 mg Diltiazem HCl (Cardizem Injection -) 10 mg IVPUSH Q4H PRN PRN Reason: TACHYCARDIA Fluticasone Propionate (Flonase -) 1 spray NS DAILY [facility] Furosemide (Lasix Injection -) 40 mg IVPUSH DAILY [facility] Piperacillin Sod/Tazobactam (Sod 3.375 gm/ Dextrose) 50 mls @ 100 mls/hr IVPB Q8H-IV [facility]; Protocol Piperacillin Sod/Tazobactam (Sod 3.375 gm/ Dextrose) 50 mls @ 100 mls/hr IVPB Q8H-IV [facility]; Protocol Stop: 10/17/19 18:29 Last Admin: 10/17/19 02:03 Dose: 100 mls/hr Insulin Aspart (Novolog Vial Sliding Scale -) 1 vial SQ ACHS [facility]; Protocol Last Admin: 10/17/19 06:18 Dose: Not Given Latanoprost (Xalatan 0.005% Eye Drops -) 1 drop OD HS [facility] Last Admin: 10/16/19 21:47 Dose: 1 drop Methylprednisolone Sodium Succinate (Solu-Medrol -) 40 mg IVPUSH DAILY [facility] Metoprolol Tartrate (Lopressor -) 25 mg NGT BID [facility] Last Admin: 10/16/19 21:44 Dose: Not Given Pantoprazole Sodium (Protonix Iv) 40 mg IVPB DAILY [facility] Timolol Maleate (Timoptic 0.5%) 1 drop OU BID [facility] Last Admin: 10/16/19 21:46 Dose: 1 drop Valsartan (Diovan -) 40 mg NGT DAILY [facility] - Objective Vital Signs: Vital Signs Temperature 98 F 10/17/19 06:00 Pulse Rate 72 10/17/19 06:00 Respiratory Rate 24 H 10/17/19 06:00 Blood Pressure 158/70 10/17/19 06:48 O2 Sat by Pulse Oximetry (%) 97 10/16/19 19:44 Labs: CBC, BMP 10/17/19 05:40 10/17/19 05:40 INR, PTT INR 1.19 (0.83-1.09) H 10/16/19 06:05 Assessment/Plan 10/12/2019 Echo: Normal LV size and fxn LVEF 55-60%, mild LAE, mild MR, TR, AR Problem List - Problems (1) Afib Code(s): I48.91 - UNSPECIFIED ATRIAL FIBRILLATION Qualifiers: Atrial fibrillation type: chronic (2) Anemia Code(s): D64.9 - ANEMIA, UNSPECIFIED (3) Glaucoma Code(s): H40.9 - UNSPECIFIED GLAUCOMA (4) Hyperthyroidism Code(s): E05.90 - THYROTOXICOSIS, UNSP WITHOUT THYROTOXIC CRISIS OR STORM (5) New onset atrial fibrillation Code(s): I48.91 - UNSPECIFIED ATRIAL FIBRILLATION (6) S/P left hemicolectomy Code(s): Z90.49 - ACQUIRED ABSENCE OF OTHER SPECIFIED PARTS OF DIGESTIVE TRACT (7) Acute on chronic diastolic (congestive) heart failure Code(s): I50.33 - ACUTE ON CHRONIC DIASTOLIC (CONGESTIVE) HEART FAILURE (8) Asthma Code(s): J45.909 - UNSPECIFIED ASTHMA, UNCOMPLICATED Qualifiers: Asthma severity: mild Asthma persistence: intermittent Asthma complication type: unspecified Qualified Code(s): J45.20 - Mild intermittent asthma, uncomplicated (9) CAD (coronary artery disease) Code(s): I25.10 - ATHSCL HEART DISEASE OF [place] CORONARY ARTERY W/O ANG PCTRS Qualifiers: Coronary Disease-Associated Artery/Lesion type: [place] artery [place] vs. transplanted heart: [place] heart Associated angina: without angina Qualified Code(s): I25.10 - Atherosclerotic heart disease of [place] coronary artery without angina pectoris (10) HTN (hypertension) Code(s): I10 - ESSENTIAL (PRIMARY) HYPERTENSION Qualifiers: Hypertension type: essential hypertension Qualified Code(s): I10 - Essential (primary) hypertension (11) Parkinson disease Code(s): G20 - PARKINSON'S DISEASE Assessment/Plan 1. s/p acute respiratory failure, currently stable 2. Post abdominal hernia repair complicated by small bowel resection and mesh placement 3. Persistent atrial Fibrillation [id number] score of 5 4. Diastolic LV dysfunction with clinical class 0 NYHA classification LV failure , generalized edema 5. HTN 6. DM 7. Hyperthyroidism 8. Acute renal insufficiency 9. Hematuria, resolved 10. History of cervical carcinoma post resection 11. History of colon carcinoma post javi-colectomy PLAN: 1. Advance diet as tolerated 2. IV Cardizem as needed for rate control 3. Lopressor 25 bid and Diovan 40 qd given via NG 4. Eliquis 5 bid given resolved hematuria 5. Empiric antibiotic course, BD, O2 as needed, IV steroid taper with GI protection
[2019-10-17] MEDS ORDERED: methylPREDNISolone NA SUCC 40 MG/1 ML VIAL IVPUSH SCH ×2 (10:00)
--- NOTE | 2019-10-17 10:00 | PN ---
Progress Note (short form) - Note Progress Note: POD 8, s/p incisional hernia repair w/ Phasix mesh and small bowel resection c/ b prolonged intubation extubated 10/10, c/b CLIFTON reintubated 10/12 extubated Pt seen and examined. Daughter bedside reports pt is doing "okay". Only complaint is bleeding from drain site and drain on R. Has not been oob, leos in place. Has not had any BMs, passing large amounts of flatus. Denies cp, n/v/ d. Vital Signs Temp 98 F 10/17/19 06:00 Pulse 72 10/17/19 06:00 Resp 24 H 10/17/19 06:00 BP 158/70 10/17/19 06:48 Pulse Ox 97 10/16/19 19:44 Intake & Output 10/16/19 10/16/19 10/17/19 11:59 23:59 11:59 Intake Total 100 680 Output Total 410 850 560 Balance -310 -850 120 Weight 186 lb 8.177 oz 178 lb 9.191 oz Intake: IVPB 100 200 Tube Feeding 360 Tube Irrigant 120 Output: Drainage 10 160 Left Abdomen 10 10 Right Abdomen 150 Urine 400 850 400 Leos 400 850 400 Other: Voiding Method Indwelling Catheter Indwelling Catheter Bowel Movement No CBC, BMP 10/17/19 05:40 10/17/19 05:40 Gen: awake, alert, nad, daughter at bedside Abdo soft, nt/nd, incision c/d/i with lucius in place, no erythema or drainage. L EDMUNDO in place with scant serosanguinous drainage in reservoir. Tubing stripped. R EDMUNDO with gauze saturated with fresh blood, reservoir approx 1/2 full with fresh blood A/P: 84 y/o F w/ PMHx Parkinson's syndrome, cervical cancer s/p hysterectomy/b/ l salpingoophrectomy, afib on eliquis, HTN, Hyperthyroidism, recurrent UTI s/p Left colectomy with splenic flexure takedown in January of this past year after presenting to [facility] with anemia found to have colon mass, now POD 8, s/p incisional hernia repair w/ Phasix mesh and small bowel resection c/b prolonged intubation, extubated 10/10, c/b CLIFTON reintubated 10/12 extubated 10/15 Afebrile, VSS Jps output R 150ml, L 10ml -May need to hold AC per medical team -Abdominal binder ordered 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
[2019-10-17] MEDS: PANTOPRAZOLE SODIUM 40 MG VIAL IVPB SCH (10:27)
[2019-10-17] MEDS: METOPROLOL TARTRATE 25 MG TABLET (FP) NGT SCH ×2 (10:28→22:10)
[2019-10-17] MEDS: APIXABAN 5 MG TABLET PEG SCH ×2 (10:28→22:10)
[2019-10-17] MEDS: VALSARTAN 40 MG TABLET (FP) NGT SCH (10:28)
[2019-10-17] MEDS: FUROSEMIDE 40 MG/4 ML INJECTABLE VIAL IVPUSH SCH (10:29)
[2019-10-17] MEDS: FLUTICASONE PROP 0.05% 16 GM NASAL SPRAY NS SCH (11:00)
[2019-10-17] MEDS: TIMOLOL 0.5% OPHTHALMIC SOL 5 ML BOTTLE OU SCH ×2 (11:00→22:11)
--- NOTE | 2019-10-17 12:26 | PN ---
Progress Note (short form) - Note Progress Note: PULMONARY Denies shortness of breath. +nonproductive cough. Wants to eat. Vital Signs Period Temp Pulse Resp BP Sys/Ugarte Pulse Ox Last 24 Hr 97.8 F-98.2 F 71-84 12-25 130-185/70-96 97 Gen: NAD at rest Heart: RRR Lung: decreased breath sounds at the bases Abd: soft, nontender Ext: no edema CBC, BMP 10/17/19 05:40 10/17/19 05:40 Active Medications Albuterol Sulfate (Ventolin 0.083% Nebulizer Soln -) 1 amp NEB Q6H PRN PRN Reason: SHORT OF BREATH/WHEEZING Last Admin: 10/17/19 04:21 Dose: 1 amp Apixaban (Eliquis -) 5 mg PEG BID [facility] Last Admin: 10/17/19 10:28 Dose: 5 mg Diltiazem HCl (Cardizem Injection -) 10 mg IVPUSH Q4H PRN PRN Reason: TACHYCARDIA Fluticasone Propionate (Flonase -) 1 spray NS DAILY [facility] Last Admin: 10/17/19 11:00 Dose: 1 spray Furosemide (Lasix Injection -) 40 mg IVPUSH DAILY [facility] Last Admin: 10/17/19 10:29 Dose: 40 mg Piperacillin Sod/Tazobactam (Sod 3.375 gm/ Dextrose) 50 mls @ 100 mls/hr IVPB Q8H-IV [facility]; Protocol Piperacillin Sod/Tazobactam (Sod 3.375 gm/ Dextrose) 50 mls @ 100 mls/hr IVPB Q8H-IV [facility]; Protocol Stop: 10/17/19 18:29 Last Admin: 10/17/19 10:29 Dose: 100 mls/hr Insulin Aspart (Novolog Vial Sliding Scale -) 1 vial SQ ACHS [facility]; Protocol Last Admin: 10/17/19 06:18 Dose: Not Given Latanoprost (Xalatan 0.005% Eye Drops -) 1 drop OD HS [facility] Last Admin: 10/16/19 21:47 Dose: 1 drop Methylprednisolone Sodium Succinate (Solu-Medrol -) 40 mg IVPUSH DAILY [facility] Last Admin: 10/17/19 10:27 Dose: 40 mg Metoprolol Tartrate (Lopressor -) 25 mg NGT BID [facility] Last Admin: 10/17/19 10:28 Dose: 25 mg Pantoprazole Sodium (Protonix Iv) 40 mg IVPB DAILY [facility] Last Admin: 10/17/19 10:27 Dose: 40 mg Timolol Maleate (Timoptic 0.5%) 1 drop OU BID [facility] Last Admin: 10/17/19 11:00 Dose: 1 drop Valsartan (Diovan -) 40 mg NGT DAILY [facility] Last Admin: 10/17/19 10:28 Dose: 40 mg A/P s/p Incisional Hernia Repair with mesh/SB resection s/p Acute Respiratory Failure Atrial Fibrillation HTN DM Hyperthyroidism h/o Colon Ca h/o Cervical Ca - will d/c steroids - pain control - rate control - continue anticoagulation - PO per surgery - DVT/GI prophylaxis
[2019-10-17] MEDS: LATANOPROST 0.005% OPHTH SOLN 2.5ML BOTTLE OD SCH (22:10)
--- NOTE | 2019-10-18 06:46 | PN ---
Progress Note, Physician Chief Complaint: in bed awake alert NAD VSS daughter Bobbi at bedside NGT and Graham removed; no hematuria much less draiange / abd drain - Current Medication List Current Medications: Active Medications Albuterol Sulfate (Ventolin 0.083% Nebulizer Soln -) 1 amp NEB Q6H PRN PRN Reason: SHORT OF BREATH/WHEEZING Last Admin: 10/17/19 16:58 Dose: 1 amp Apixaban (Eliquis -) 5 mg PEG BID [facility] Last Admin: 10/17/19 22:10 Dose: 5 mg Diltiazem HCl (Cardizem Injection -) 10 mg IVPUSH Q4H PRN PRN Reason: TACHYCARDIA Fluticasone Propionate (Flonase -) 1 spray NS DAILY [facility] Last Admin: 10/17/19 11:00 Dose: 1 spray Furosemide (Lasix Injection -) 40 mg IVPUSH DAILY [facility] Last Admin: 10/17/19 10:29 Dose: 40 mg Piperacillin Sod/Tazobactam (Sod 3.375 gm/ Dextrose) 50 mls @ 100 mls/hr IVPB Q8H-IV [facility]; Protocol Insulin Aspart (Novolog Vial Sliding Scale -) 1 vial SQ ACHS [facility]; Protocol Last Admin: 10/17/19 22:11 Dose: Not Given Latanoprost (Xalatan 0.005% Eye Drops -) 1 drop OD HS [facility] Last Admin: 10/17/19 22:10 Dose: 1 drop Metoprolol Tartrate (Lopressor -) 25 mg NGT BID [facility] Last Admin: 10/17/19 22:10 Dose: 25 mg Pantoprazole Sodium (Protonix Iv) 40 mg IVPB DAILY [facility] Last Admin: 10/17/19 10:27 Dose: 40 mg Timolol Maleate (Timoptic 0.5%) 1 drop OU BID [facility] Last Admin: 10/17/19 22:11 Dose: 1 drop Valsartan (Diovan -) 40 mg NGT DAILY [facility] Last Admin: 10/17/19 10:28 Dose: 40 mg - Objective Vital Signs: Vital Signs Temperature 98.6 F 10/17/19 18:00 Pulse Rate 65 10/17/19 22:00 Respiratory Rate 15 10/17/19 22:00 Blood Pressure 129/68 10/17/19 22:00 O2 Sat by Pulse Oximetry (%) 94 L 10/17/19 21:00 Constitutional: Yes: No Distress, Calm Eyes: Yes: Conjunctiva Clear HENT: Yes: Atraumatic Neck: Yes: Supple Cardiovascular: No: Regular Rate and Rhythm Respiratory: Yes: CTA Bilaterally Gastrointestinal: Yes: Soft, Other (wound clean no DC / bleed). No: Tenderness Genitourinary: No: Graham Present, Hematuria Musculoskeletal: No: Joint Stiffness, Joint Swelling Extremities: No: Cold, Cool Edema: No Integumentary: No: Rash, Venous Stasis Changes Neurological: Yes: Alert ...Motor Strength: WNL Psychiatric: Yes: Alert. No: Agitated Labs: CBC, BMP 10/17/19 05:40 10/17/19 05:40 INR, PTT INR 1.19 (0.83-1.09) H 10/16/19 06:05 - ....Imaging Other: Report Reviewed Assessment/Plan 83 yo F h/of Colon Ca (s/p Hemicolectomy, 02/2019), HTN, HLD, Afib ( on Eliquis) , Diastolic CHF, HLD, Hyperthyroidism s/p hernia repair, adhesions, s/p incidental enterotomy and partial small bowel resection / reanastomosis and mesh placement, difficult airway access, airway swelling, intubated postop now s /p extubated; improving slowly; po eliquis, off iv / sq heparin; cardiology f/u; on BP meds and iv lasix; prerenal azotemia and low electrolytes - per ICU, renal f/u ATB per ID DVT PFX, decubs, aspiration PFX; f/u labs; I/O Graham; incentive spirometry, bedside PT; d.w staff d/w pts' daughter at bedside prognosis guarded
[2019-10-18 07:12] LABS: BASO % 0.1 % (0-2.0); EOS % 0.2 % (0-4.5); HEMATOCRIT 25.3 % (32.4-45.2); HEMOGLOBIN 8.4 GM/dL (10.7-15.3); LYMPH % 13.3 % (8-40); MEAN CELL VOLUME 87.9 fl (80-96); MEAN PLT VOLUME 8.6 fl (7.5-11.1); MONO % 7.7 % (3.8-10.2); NEUT % 78.7 % (42.8-82.8); PLATELET COUNT 200 K/MM3 (134-434); RBC 2.88 M/mm3 (3.60-5.2); RDW 16.9 % (11.6-15.6); WHITE BLOOD COUNT 8.8 K/mm3 (4.0-10.0)
[2019-10-18 08:21] LABS: ALBUMIN 2.3 g/dl (3.4-5.0); BILIRUBIN,TOTAL 0.4 mg/dL (0.2-1); BLOOD UREA NITROGEN 30.1 mg/dL (7-18); CALCIUM 8.2 mg/dL (8.5-10.1); CREATININE 0.7 mg/dL (0.55-1.3); POTASSIUM 3.6 mmol/L (3.5-5.1); TOT PROT 4.6 g/dl (6.4-8.2)
[2019-10-18] MEDS: INSULIN SLIDING SCALE (NOVOLOG) 1 VIAL SQ SCH ×4 (08:54→21:38)
--- NOTE | 2019-10-18 09:31 | PN ---
Progress Note (short form) - Note Progress Note: PULMONARY Denies shortness of breath. Tolerating PO. +BM. Vital Signs Period Temp Pulse Resp BP Sys/Ugarte Pulse Ox Last 24 Hr 98.2 F-98.6 F 65-86 12-25 123-148/62-78 94-97 Gen: NAD at rest Heart: RRR Lung: decreased breath sounds at the bases Abd: soft, nontender Ext: no edema CBC, BMP 10/18/19 05:50 10/18/19 05:50 Active Medications Albuterol Sulfate (Ventolin 0.083% Nebulizer Soln -) 1 amp NEB Q6H PRN PRN Reason: SHORT OF BREATH/WHEEZING Last Admin: 10/17/19 16:58 Dose: 1 amp Apixaban (Eliquis -) 5 mg PEG BID [facility] Last Admin: 10/17/19 22:10 Dose: 5 mg Diltiazem HCl (Cardizem Injection -) 10 mg IVPUSH Q4H PRN PRN Reason: TACHYCARDIA Fluticasone Propionate (Flonase -) 1 spray NS DAILY [facility] Last Admin: 10/17/19 11:00 Dose: 1 spray Furosemide (Lasix Injection -) 40 mg IVPUSH DAILY [facility] Last Admin: 10/17/19 10:29 Dose: 40 mg Piperacillin Sod/Tazobactam (Sod 3.375 gm/ Dextrose) 50 mls @ 100 mls/hr IVPB Q8H-IV [facility]; Protocol Insulin Aspart (Novolog Vial Sliding Scale -) 1 vial SQ ACHS [facility]; Protocol Last Admin: 10/18/19 08:54 Dose: Not Given Latanoprost (Xalatan 0.005% Eye Drops -) 1 drop OD HS [facility] Last Admin: 10/17/19 22:10 Dose: 1 drop Metoprolol Tartrate (Lopressor -) 25 mg NGT BID [facility] Last Admin: 10/17/19 22:10 Dose: 25 mg Pantoprazole Sodium (Protonix Iv) 40 mg IVPB DAILY [facility] Last Admin: 10/17/19 10:27 Dose: 40 mg Timolol Maleate (Timoptic 0.5%) 1 drop OU BID [facility] Last Admin: 10/17/19 22:11 Dose: 1 drop Valsartan (Diovan -) 40 mg NGT DAILY [facility] Last Admin: 10/17/19 10:28 Dose: 40 mg A/P s/p Incisional Hernia Repair with mesh/SB resection s/p Acute Respiratory Failure Atrial Fibrillation HTN DM Hyperthyroidism h/o Colon Ca h/o Cervical Ca - monitor off steroids - pain control - rate control - continue anticoagulation - PO per surgery - DVT/GI prophylaxis
--- NOTE | 2019-10-18 09:59 | PN ---
Progress Note, Physician Chief Complaint: The patient seen and examined on her bed. Family by bedside. Reports feeling "much better". Maintains good urine output. EDMUNDO drain inplace. Tolerating oral fluids. - Current Medication List Current Medications: Active Medications Albuterol Sulfate (Ventolin 0.083% Nebulizer Soln -) 1 amp NEB Q6H PRN PRN Reason: SHORT OF BREATH/WHEEZING Last Admin: 10/17/19 16:58 Dose: 1 amp Apixaban (Eliquis -) 5 mg PEG BID [facility] Last Admin: 10/17/19 22:10 Dose: 5 mg Diltiazem HCl (Cardizem Injection -) 10 mg IVPUSH Q4H PRN PRN Reason: TACHYCARDIA Fluticasone Propionate (Flonase -) 1 spray NS DAILY [facility] Last Admin: 10/17/19 11:00 Dose: 1 spray Furosemide (Lasix Injection -) 40 mg IVPUSH DAILY [facility] Last Admin: 10/17/19 10:29 Dose: 40 mg Piperacillin Sod/Tazobactam (Sod 3.375 gm/ Dextrose) 50 mls @ 100 mls/hr IVPB Q8H-IV [facility]; Protocol Insulin Aspart (Novolog Vial Sliding Scale -) 1 vial SQ ACHS [facility]; Protocol Last Admin: 10/18/19 08:54 Dose: Not Given Latanoprost (Xalatan 0.005% Eye Drops -) 1 drop OD HS [facility] Last Admin: 10/17/19 22:10 Dose: 1 drop Metoprolol Tartrate (Lopressor -) 25 mg NGT BID [facility] Last Admin: 10/17/19 22:10 Dose: 25 mg Pantoprazole Sodium (Protonix Iv) 40 mg IVPB DAILY [facility] Last Admin: 10/17/19 10:27 Dose: 40 mg Timolol Maleate (Timoptic 0.5%) 1 drop OU BID [facility] Last Admin: 10/17/19 22:11 Dose: 1 drop Valsartan (Diovan -) 40 mg NGT DAILY [facility] Last Admin: 10/17/19 10:28 Dose: 40 mg - Objective Vital Signs: Vital Signs Temperature 98.6 F 10/17/19 18:00 Pulse Rate 75 10/18/19 06:00 Respiratory Rate 25 H 10/18/19 06:00 Blood Pressure 136/62 10/18/19 06:00 O2 Sat by Pulse Oximetry (%) 94 L 10/17/19 21:00 Constitutional: Yes: No Distress, Calm Eyes: Yes: Conjunctiva Clear HENT: Yes: Atraumatic Neck: Yes: Trachea Midline Cardiovascular: Yes: Pulse Irregular Respiratory: Yes: CTA Bilaterally Gastrointestinal: Yes: Abdomen, Obese, Hypoactive Bowel Sounds, Tenderness Edema: No Neurological: Yes: Alert, Oriented ([place] citizen speaking) Labs: CBC, BMP 10/18/19 05:50 10/18/19 05:50 INR, PTT INR 1.19 (0.83-1.09) H 10/16/19 06:05 Assessment/Plan 84 year old female with history of hypertension, hyperlipidemia, Atrial fibrillation on Eliquis, hyperthyrodism, parkinson's disease, asthma and colon cancer who was admitted following a complicated ambulatory inguinal hernia repair. 1. Renal function stable. Elevated BUN likely related to steroids 2. Oral fluids well tolerated. 3. No overt indication to change any regimen at this point. 4. Continue care as per ICU protocol. Yaritza Ram MD
[2019-10-18] MEDS: FLUTICASONE PROP 0.05% 16 GM NASAL SPRAY NS SCH (10:37)
[2019-10-18] MEDS: APIXABAN 5 MG TABLET PEG SCH ×2 (10:39→21:41)
[2019-10-18] MEDS: METOPROLOL TARTRATE 25 MG TABLET (FP) NGT SCH ×2 (10:39→21:41)
[2019-10-18] MEDS: FUROSEMIDE 40 MG/4 ML INJECTABLE VIAL IVPUSH SCH (10:39)
[2019-10-18] MEDS: TIMOLOL 0.5% OPHTHALMIC SOL 5 ML BOTTLE OU SCH ×2 (10:39→21:39)
[2019-10-18] MEDS: VALSARTAN 40 MG TABLET (FP) NGT SCH (10:40)
[2019-10-18] MEDS: PANTOPRAZOLE SODIUM 40 MG VIAL IVPB SCH (10:40)
--- NOTE | 2019-10-18 10:55 | PN ---
Progress Note, Physician History of Present Illness: Hemodynamics stable with rate-controlled afib. Tolerating diet, resolved incisional pain, passing flatus. - Current Medication List Current Medications: Active Medications Albuterol Sulfate (Ventolin 0.083% Nebulizer Soln -) 1 amp NEB Q6H PRN PRN Reason: SHORT OF BREATH/WHEEZING Last Admin: 10/17/19 16:58 Dose: 1 amp Apixaban (Eliquis -) 5 mg PEG BID [facility] Last Admin: 10/18/19 10:39 Dose: 5 mg Diltiazem HCl (Cardizem Injection -) 10 mg IVPUSH Q4H PRN PRN Reason: TACHYCARDIA Fluticasone Propionate (Flonase -) 1 spray NS DAILY [facility] Last Admin: 10/18/19 10:37 Dose: 1 spray Furosemide (Lasix Injection -) 40 mg IVPUSH DAILY [facility] Last Admin: 10/18/19 10:39 Dose: 40 mg Piperacillin Sod/Tazobactam (Sod 3.375 gm/ Dextrose) 50 mls @ 100 mls/hr IVPB Q8H-IV [facility]; Protocol Insulin Aspart (Novolog Vial Sliding Scale -) 1 vial SQ ACHS [facility]; Protocol Last Admin: 10/18/19 08:54 Dose: Not Given Latanoprost (Xalatan 0.005% Eye Drops -) 1 drop OD HS [facility] Last Admin: 10/17/19 22:10 Dose: 1 drop Metoprolol Tartrate (Lopressor -) 25 mg NGT BID [facility] Last Admin: 10/18/19 10:39 Dose: 25 mg Pantoprazole Sodium (Protonix Iv) 40 mg IVPB DAILY [facility] Last Admin: 10/18/19 10:40 Dose: 40 mg Timolol Maleate (Timoptic 0.5%) 1 drop OU BID [facility] Last Admin: 10/18/19 10:39 Dose: 1 drop Valsartan (Diovan -) 40 mg NGT DAILY [facility] Last Admin: 10/18/19 10:40 Dose: 40 mg - Objective Vital Signs: Vital Signs Temperature 98.6 F 10/17/19 18:00 Pulse Rate 75 10/18/19 06:00 Respiratory Rate 25 H 10/18/19 06:00 Blood Pressure 136/62 10/18/19 06:00 O2 Sat by Pulse Oximetry (%) 94 L 10/17/19 21:00 Constitutional: Yes: No Distress, Calm Neck: Yes: Supple Cardiovascular: Yes: Pulse Irregular Respiratory: Yes: Regular, Diminished, On Nasal O2 Gastrointestinal: Yes: Soft, Abdomen, Obese, Hypoactive Bowel Sounds Edema: No Labs: CBC, BMP 10/18/19 05:50 10/18/19 05:50 INR, PTT INR 1.19 (0.83-1.09) H 10/16/19 06:05 - ....Imaging EKG: Report Reviewed (Tele: Rate-controlled afib) Assessment/Plan 10/12/2019 Echo: Normal LV size and fxn LVEF 55-60%, mild LAE, mild MR, TR, AR Problem List - Problems (1) Afib Code(s): I48.91 - UNSPECIFIED ATRIAL FIBRILLATION Qualifiers: Atrial fibrillation type: chronic (2) Anemia Code(s): D64.9 - ANEMIA, UNSPECIFIED (3) Glaucoma Code(s): H40.9 - UNSPECIFIED GLAUCOMA (4) Hyperthyroidism Code(s): E05.90 - THYROTOXICOSIS, UNSP WITHOUT THYROTOXIC CRISIS OR STORM (5) New onset atrial fibrillation Code(s): I48.91 - UNSPECIFIED ATRIAL FIBRILLATION (6) S/P left hemicolectomy Code(s): Z90.49 - ACQUIRED ABSENCE OF OTHER SPECIFIED PARTS OF DIGESTIVE TRACT (7) Acute on chronic diastolic (congestive) heart failure Code(s): I50.33 - ACUTE ON CHRONIC DIASTOLIC (CONGESTIVE) HEART FAILURE (8) Asthma Code(s): J45.909 - UNSPECIFIED ASTHMA, UNCOMPLICATED Qualifiers: Asthma severity: mild Asthma persistence: intermittent Asthma complication type: unspecified Qualified Code(s): J45.20 - Mild intermittent asthma, uncomplicated (9) CAD (coronary artery disease) Code(s): I25.10 - ATHSCL HEART DISEASE OF [place] CORONARY ARTERY W/O ANG PCTRS Qualifiers: Coronary Disease-Associated Artery/Lesion type: [place] artery [place] vs. transplanted heart: [place] heart Associated angina: without angina Qualified Code(s): I25.10 - Atherosclerotic heart disease of [place] coronary artery without angina pectoris (10) HTN (hypertension) Code(s): I10 - ESSENTIAL (PRIMARY) HYPERTENSION Qualifiers: Hypertension type: essential hypertension Qualified Code(s): I10 - Essential (primary) hypertension (11) Parkinson disease Code(s): G20 - PARKINSON'S DISEASE Assessment/Plan 1. s/p acute respiratory failure, currently stable 2. Post abdominal hernia repair complicated by small bowel resection and mesh placement 3. Persistent atrial Fibrillation [id number] score of 5 4. Diastolic LV dysfunction with clinical class 0 NYHA classification LV failure , generalized edema 5. HTN 6. DM 7. Hyperthyroidism 8. Acute renal insufficiency 9. Hematuria, resolved 10. History of cervical carcinoma post resection 11. History of colon carcinoma post javi-colectomy PLAN: 1. Resumed diet per S&S, drain management 2. IV Cardizem as needed for rate control 3. Lopressor 25 bid and Diovan 40 qd, diuresis as needed 4. Eliquis 5 bid given resolved hematuria 5. Empiric antibiotic course, BD, O2 as needed, steroids d/berhane
[2019-10-18] MEDS: LATANOPROST 0.005% OPHTH SOLN 2.5ML BOTTLE OD SCH (21:39)
--- NOTE | 2019-10-18 21:45 | PN ---
Progress Note (short form) - Note Progress Note: Attending Surgeon POD#10 Remains in the ICU; OOB to chair and tolerating diet and passing flatus and having bowel movements. VSS AF abdo-soft; flat and non tender; lucius in place; drains w/decreased output. IMP: improving PLAN: Continue present tx. as per ICU. John Alvarado MD FACS
[2019-10-19] MEDS: INSULIN SLIDING SCALE (NOVOLOG) 1 VIAL SQ SCH ×4 (06:15→21:34)
[2019-10-19 07:12] LABS: BASO % 0.1 % (0-2.0); EOS % 2.5 % (0-4.5); HEMATOCRIT 26.7 % (32.4-45.2); HEMOGLOBIN 8.8 GM/dL (10.7-15.3); LYMPH % 15.4 % (8-40); MCH 28.7 pg (25.7-33.7); MEAN CELL VOLUME 87.1 fl (80-96); MEAN PLT VOLUME 8.3 fl (7.5-11.1); MONO % 7.1 % (3.8-10.2); NEUT % 74.9 % (42.8-82.8); PLATELET COUNT 209 K/MM3 (134-434); RBC 3.06 M/mm3 (3.60-5.2); RDW 16.3 % (11.6-15.6); WHITE BLOOD COUNT 7.7 K/mm3 (4.0-10.0)
[2019-10-19 07:29] LABS: ALBUMIN 2.5 g/dl (3.4-5.0); BILIRUBIN,TOTAL 0.4 mg/dL (0.2-1); BLOOD UREA NITROGEN 27.1 mg/dL (7-18); CALCIUM 8.1 mg/dL (8.5-10.1); CREATININE 0.6 mg/dL (0.55-1.3); POTASSIUM 3.6 mmol/L (3.5-5.1); TOT PROT 4.8 g/dl (6.4-8.2)
--- NOTE | 2019-10-19 08:32 | PN ---
Progress Note, Physician Chief Complaint: OOB awake alert NAD NGT and Graham out no pain, no hematuria, little serosg drainage from abd drain; afebrile - Current Medication List Current Medications: Active Medications Albuterol Sulfate (Ventolin 0.083% Nebulizer Soln -) 1 amp NEB Q6H PRN PRN Reason: SHORT OF BREATH/WHEEZING Last Admin: 10/17/19 16:58 Dose: 1 amp Apixaban (Eliquis -) 5 mg PEG BID [facility] Last Admin: 10/18/19 21:41 Dose: 5 mg Diltiazem HCl (Cardizem Injection -) 10 mg IVPUSH Q4H PRN PRN Reason: TACHYCARDIA Fluticasone Propionate (Flonase -) 1 spray NS DAILY [facility] Last Admin: 10/18/19 10:37 Dose: 1 spray Furosemide (Lasix -) 40 mg PO DAILY [facility] Piperacillin Sod/Tazobactam (Sod 3.375 gm/ Dextrose) 50 mls @ 100 mls/hr IVPB Q8H-IV [facility]; Protocol Insulin Aspart (Novolog Vial Sliding Scale -) 1 vial SQ ACHS [facility]; Protocol Last Admin: 10/19/19 06:15 Dose: Not Given Latanoprost (Xalatan 0.005% Eye Drops -) 1 drop OD HS [facility] Last Admin: 10/18/19 21:39 Dose: 1 drop Metoprolol Tartrate (Lopressor -) 25 mg NGT BID [facility] Last Admin: 10/18/19 21:41 Dose: 25 mg Pantoprazole Sodium (Protonix -) 20 mg PO DAILY [facility] Timolol Maleate (Timoptic 0.5%) 1 drop OU BID [facility] Last Admin: 10/18/19 21:39 Dose: 1 drop Valsartan (Diovan -) 40 mg NGT DAILY [facility] Last Admin: 10/18/19 10:40 Dose: 40 mg - Objective Vital Signs: Vital Signs Temperature 98.6 F 10/19/19 06:00 Pulse Rate 83 10/19/19 06:00 Respiratory Rate 15 10/19/19 06:00 Blood Pressure 123/68 10/19/19 06:00 O2 Sat by Pulse Oximetry (%) 95 10/18/19 23:24 Constitutional: Yes: No Distress Eyes: Yes: Conjunctiva Clear HENT: Yes: Atraumatic Neck: Yes: Supple Cardiovascular: No: Regular Rate and Rhythm Respiratory: Yes: Diminished Gastrointestinal: Yes: Soft. No: Tenderness Genitourinary: No: Graham Present, Hematuria Musculoskeletal: No: Joint Stiffness, Joint Swelling Extremities: No: Cold, Cool Edema: No Integumentary: No: Rash, Venous Stasis Changes Neurological: Yes: Alert ...Motor Strength: WNL Psychiatric: Yes: Alert. No: Agitated Labs: CBC, BMP 10/19/19 05:55 10/19/19 05:55 INR, PTT INR 1.19 (0.83-1.09) H 10/16/19 06:05 - ....Imaging Other: Report Reviewed Assessment/Plan 83 yo F h/of Colon Ca (s/p Hemicolectomy, 02/2019), HTN, HLD, Afib ( on Eliquis) , Diastolic CHF, HLD, Hyperthyroidism s/p hernia repair, adhesions, s/p incidental enterotomy and partial small bowel resection / reanastomosis and mesh placement, difficult airway access, airway swelling, intubated postop, currently extubated; improving slowly; po eliquis, advance diet as tolerated cardiology f/u; on BP meds and iv lasix; prerenal azotemia and low electrolytes - per ICU, renal f/u ATB per ID DVT PFX, decubs, aspiration PFX; f/u labs; I/O Graham; incentive spirometry, bedside PT; d.w staff d/w pts' daughter Yogi at bedside
--- NOTE | 2019-10-19 08:32 | PN ---
Progress Note (short form) - Note Progress Note: POD 10, s/p incisional hernia repair w/ Phasix mesh and small bowel resection c/ b prolonged intubation extubated 10/10, c/b CLIFTON reintubated 10/12 extubated Pt seen and examined. Daughter bedside reports pt is doing much better. Was oob 2 days ago to chair. has been having BMS and passing flatus. On clears and tolerating, requesting more food. Berry in place. Denies cp, n/v/d. Vital Signs Temp 98.6 F 10/19/19 06:00 Pulse 83 10/19/19 06:00 Resp 15 10/19/19 06:00 BP 123/68 10/19/19 06:00 Pulse Ox 95 10/18/19 23:24 Intake & Output 10/18/19 10/18/19 10/19/19 11:59 23:59 11:59 Intake Total 180 0 150 Output Total 45 30 Balance 180 -45 120 Weight 181 lb 14.102 oz Intake: IV 0 saline lock 0 Oral 180 150 Output: Drainage 45 30 Left Abdomen 5 5 Right Abdomen 40 25 Other: Voiding Method Indwelling Catheter Incontinent # Unmeasured Voids Void 1 2 Bowel Movement No No CBC, BMP 10/19/19 05:55 10/19/19 05:55 Gen: awake, alert, nad, daughter at bedside Abdo soft, nt/nd, incision c/d/i with lucius in place, no erythema or drainage. L EDMUNDO in place with scant dark drainage in reservoir. Tubing stripped. R EDMUNDO with scant serosanguinous drainage in reservoir, tubing stripped. A/P: 84 y/o F w/ PMHx Parkinson's syndrome, cervical cancer s/p hysterectomy/b/ l salpingoophrectomy, afib on eliquis, HTN, Hyperthyroidism, recurrent UTI s/p Left colectomy with splenic flexure takedown in January of this past year after presenting to [facility] with anemia found to have colon mass, now POD 10, s/p incisional hernia repair w/ Phasix mesh and small bowel resection c/b prolonged intubation, extubated 10/10, c/b CLIFTON reintubated 10/12 extubated 10/15 Afebrile, VSS, no leukocytosis Jps output R 25ml, L 5ml overnight -Advance to soft diet (ordered) -Keep jps in place, monitor and record output -Monitor I&Os -VS per protocol -Will discuss advancement of diet with attending -OOB with assist -Incentive spirometry d/w attending Dr Alvarado
[2019-10-19] MEDS: PANTOPRAZOLE 20 MG TABLET (FP) PO SCH (11:21)
[2019-10-19] MEDS: APIXABAN 5 MG TABLET PEG SCH ×2 (11:21→21:34)
[2019-10-19] MEDS: VALSARTAN 40 MG TABLET (FP) NGT SCH (11:21)
[2019-10-19] MEDS: METOPROLOL TARTRATE 25 MG TABLET (FP) NGT SCH ×2 (11:21→21:34)
[2019-10-19] MEDS: FUROSEMIDE 40 MG TABLET (FP) PO SCH (11:21)
[2019-10-19] MEDS: TIMOLOL 0.5% OPHTHALMIC SOL 5 ML BOTTLE OU SCH ×2 (11:22→21:35)
[2019-10-19] MEDS: FLUTICASONE PROP 0.05% 16 GM NASAL SPRAY NS SCH (11:23)
[2019-10-19] MEDS ORDERED: FLU VACCINE QUAD 60 MCG/0.5 ML (MDV 19-20) IM ONE (12:00)
--- NOTE | 2019-10-19 12:55 | PN ---
Progress Note (short form) - Note Progress Note: Renal follow up for azotemia Seen and examined at the bedside awake and alert sitting in chair on NC O2 making urine advancing diet Vital Signs Temperature 98.6 F 10/19/19 06:00 Pulse Rate 84 10/19/19 08:55 Respiratory Rate 18 10/19/19 08:55 Blood Pressure 116/74 10/19/19 08:55 O2 Sat by Pulse Oximetry (%) 94 L 10/19/19 08:41 Intake & Output 10/16/19 10/17/19 10/18/19 10/19/19 23:59 23:59 23:59 23:59 Intake Total 100 880 180 330 Output Total 1260 2480 45 30 Balance -1160 -1600 135 300 Weight 84.6 kg 81 kg 82.5 kg NAD awake and alert RRR CTA soft NT/ND trace LE edema CBC, BMP 10/19/19 05:55 10/19/19 05:55 Current Medications Albuterol Sulfate (Ventolin 0.083% Nebulizer Soln -) 1 amp NEB Q6H PRN PRN Reason: SHORT OF BREATH/WHEEZING Last Admin: 10/17/19 16:58 Dose: 1 amp Apixaban (Eliquis -) 5 mg PEG BID [facility] Last Admin: 10/19/19 11:21 Dose: 5 mg Diltiazem HCl (Cardizem Injection -) 10 mg IVPUSH Q4H PRN PRN Reason: TACHYCARDIA Fluticasone Propionate (Flonase -) 1 spray NS DAILY [facility] Last Admin: 10/19/19 11:23 Dose: 1 spray Furosemide (Lasix -) 40 mg PO DAILY [facility] Last Admin: 10/19/19 11:21 Dose: 40 mg Piperacillin Sod/Tazobactam (Sod 3.375 gm/ Dextrose) 50 mls @ 100 mls/hr IVPB Q8H-IV [facility]; Protocol Insulin Aspart (Novolog Vial Sliding Scale -) 1 vial SQ ACHS [facility]; Protocol Last Admin: 10/19/19 06:15 Dose: Not Given Latanoprost (Xalatan 0.005% Eye Drops -) 1 drop OD HS [facility] Last Admin: 10/18/19 21:39 Dose: 1 drop Metoprolol Tartrate (Lopressor -) 25 mg NGT BID [facility] Last Admin: 10/19/19 11:21 Dose: 25 mg Pantoprazole Sodium (Protonix -) 20 mg PO DAILY [facility] Last Admin: 10/19/19 11:21 Dose: 20 mg Timolol Maleate (Timoptic 0.5%) 1 drop OU BID [facility] Last Admin: 10/19/19 11:22 Dose: 1 drop Valsartan (Diovan -) 40 mg NGT DAILY [facility] Last Admin: 10/19/19 11:21 Dose: 40 mg 84 year old woman with history of hypertension, hyperlipidemia, Afib on Eliquis , hyperthyrodism, parkinson's disease, asthma and colon cancer who was admitted following complicated ambulatory inguinal hernia repair. 1. Azotemia 2. Respiratory failure 3. Inguinal hernia repair 4. Hypertension 5. Anemia Renal function stable Azotemia due to steroids no overt electrolyte or acid base disturbance advance diet as per surgery will follow up as needed, please call with any questions or concerns Thank you Dustin Villanueva DO
--- NOTE | 2019-10-19 14:49 | PN ---
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
--- NOTE | 2019-10-19 15:17 | PN ---
Progress Note, Physician History of Present Illness: Hemodynamics stable with rate-controlled afib. Tolerating diet, resolved incisional pain, passing flatus and BM, sitting in chair. - Current Medication List Current Medications: Active Medications Albuterol Sulfate (Ventolin 0.083% Nebulizer Soln -) 1 amp NEB Q6H PRN PRN Reason: SHORT OF BREATH/WHEEZING Last Admin: 10/17/19 16:58 Dose: 1 amp Apixaban (Eliquis -) 5 mg PEG BID [facility] Last Admin: 10/19/19 11:21 Dose: 5 mg Diltiazem HCl (Cardizem Injection -) 10 mg IVPUSH Q4H PRN PRN Reason: TACHYCARDIA Fluticasone Propionate (Flonase -) 1 spray NS DAILY [facility] Last Admin: 10/19/19 11:23 Dose: 1 spray Furosemide (Lasix -) 40 mg PO DAILY [facility] Last Admin: 10/19/19 11:21 Dose: 40 mg Piperacillin Sod/Tazobactam (Sod 3.375 gm/ Dextrose) 50 mls @ 100 mls/hr IVPB Q8H-IV [facility]; Protocol Insulin Aspart (Novolog Vial Sliding Scale -) 1 vial SQ ACHS [facility]; Protocol Last Admin: 10/19/19 06:15 Dose: Not Given Latanoprost (Xalatan 0.005% Eye Drops -) 1 drop OD HS [facility] Last Admin: 10/18/19 21:39 Dose: 1 drop Metoprolol Tartrate (Lopressor -) 25 mg NGT BID [facility] Last Admin: 10/19/19 11:21 Dose: 25 mg Pantoprazole Sodium (Protonix -) 20 mg PO DAILY [facility] Last Admin: 10/19/19 11:21 Dose: 20 mg Timolol Maleate (Timoptic 0.5%) 1 drop OU BID [facility] Last Admin: 10/19/19 11:22 Dose: 1 drop Valsartan (Diovan -) 40 mg NGT DAILY [facility] Last Admin: 10/19/19 11:21 Dose: 40 mg - Objective Vital Signs: Vital Signs Temperature 98 F 10/19/19 14:03 Pulse Rate 74 10/19/19 14:03 Respiratory Rate 18 10/19/19 14:03 Blood Pressure 97/59 L 10/19/19 14:03 O2 Sat by Pulse Oximetry (%) 94 L 10/19/19 08:41 Constitutional: Yes: No Distress, Calm Neck: Yes: Supple Cardiovascular: Yes: Pulse Irregular Respiratory: Yes: Regular, Diminished, On Nasal O2 Gastrointestinal: Yes: Normal Bowel Sounds, Soft Edema: No Labs: CBC, BMP 10/19/19 05:55 10/19/19 05:55 INR, PTT INR 1.19 (0.83-1.09) H 10/16/19 06:05 Assessment/Plan 10/12/2019 Echo: Normal LV size and fxn LVEF 55-60%, mild LAE, mild MR, TR, AR Problem List - Problems (1) Afib Code(s): I48.91 - UNSPECIFIED ATRIAL FIBRILLATION Qualifiers: Atrial fibrillation type: chronic (2) Anemia Code(s): D64.9 - ANEMIA, UNSPECIFIED (3) Glaucoma Code(s): H40.9 - UNSPECIFIED GLAUCOMA (4) Hyperthyroidism Code(s): E05.90 - THYROTOXICOSIS, UNSP WITHOUT THYROTOXIC CRISIS OR STORM (5) New onset atrial fibrillation Code(s): I48.91 - UNSPECIFIED ATRIAL FIBRILLATION (6) S/P left hemicolectomy Code(s): Z90.49 - ACQUIRED ABSENCE OF OTHER SPECIFIED PARTS OF DIGESTIVE TRACT (7) Acute on chronic diastolic (congestive) heart failure Code(s): I50.33 - ACUTE ON CHRONIC DIASTOLIC (CONGESTIVE) HEART FAILURE (8) Asthma Code(s): J45.909 - UNSPECIFIED ASTHMA, UNCOMPLICATED Qualifiers: Asthma severity: mild Asthma persistence: intermittent Asthma complication type: unspecified Qualified Code(s): J45.20 - Mild intermittent asthma, uncomplicated (9) CAD (coronary artery disease) Code(s): I25.10 - ATHSCL HEART DISEASE OF [place] CORONARY ARTERY W/O ANG PCTRS Qualifiers: Coronary Disease-Associated Artery/Lesion type: [place] artery [place] vs. transplanted heart: [place] heart Associated angina: without angina Qualified Code(s): I25.10 - Atherosclerotic heart disease of [place] coronary artery without angina pectoris (10) HTN (hypertension) Code(s): I10 - ESSENTIAL (PRIMARY) HYPERTENSION Qualifiers: Hypertension type: essential hypertension Qualified Code(s): I10 - Essential (primary) hypertension (11) Parkinson disease Code(s): G20 - PARKINSON'S DISEASE Assessment/Plan 1. s/p acute respiratory failure, currently stable 2. Post abdominal hernia repair complicated by small bowel resection and mesh placement 3. Persistent atrial Fibrillation [id number] score of 5 4. Diastolic LV dysfunction with clinical class 0 NYHA classification LV failure , generalized edema 5. HTN 6. DM 7. Hyperthyroidism 8. Acute renal insufficiency 9. Hematuria, resolved 10. History of cervical carcinoma post resection 11. History of colon carcinoma post javi-colectomy PLAN: 1. Resumed diet per S&S, drain management 2. IV Cardizem as needed for rate control 3. Lopressor 25 bid and Diovan 40 qd, Lasix 40 qd 4. Eliquis 5 bid given resolved hematuria 5. Empiric antibiotic course, BD, O2 as needed
[2019-10-19] MEDS ORDERED: DEXTROSE 5%-WATER - 50 ML IVPB ONE (16:16)
[2019-10-19] MEDS ORDERED: PIPERACILLIN/TAZOBACTAM 3.375 GM VIAL IVPB ONE (16:16)
[2019-10-19] MEDS: PIPERACILLIN/TAZOB 3.375 GM 3.375 GM in DEXTROSE 5%-WATER - 50 ML IVPB SCH (16:18)
[2019-10-19] MEDS: ALBUTEROL SO4 0.083% IH SOL 2.5 MG/3 ML VIAL.NEB. NEB PRN (17:01)
[2019-10-19] MEDS: LATANOPROST 0.005% OPHTH SOLN 2.5ML BOTTLE OD SCH (21:34)
[2019-10-20] MEDS: INSULIN SLIDING SCALE (NOVOLOG) 1 VIAL SQ SCH ×4 (06:22→21:15)
[2019-10-20 07:42] LABS: HEMATOCRIT 26.5 % (32.4-45.2); HEMOGLOBIN 8.6 GM/dL (10.7-15.3); MCH 28.5 pg (25.7-33.7); MCHC 32.4 g/dl (32.0-36.0); MEAN CELL VOLUME 87.8 fl (80-96); MEAN PLT VOLUME 8.4 fl (7.5-11.1); PLATELET COUNT 213 K/MM3 (134-434); RBC 3.01 M/mm3 (3.60-5.2); RDW 16.2 % (11.6-15.6); WHITE BLOOD COUNT 7.5 K/mm3 (4.0-10.0)
[2019-10-20] MEDS: ALBUTEROL SO4 0.083% IH SOL 2.5 MG/3 ML VIAL.NEB. NEB PRN ×3 (08:41→21:06)
--- NOTE | 2019-10-20 09:43 | PN ---
Progress Note, Physician Chief Complaint: in bed awake NAD VSS afebrile passed gas and BM daughter at bedside - Current Medication List Current Medications: Active Medications Albuterol Sulfate (Ventolin 0.083% Nebulizer Soln -) 1 amp NEB Q6H PRN PRN Reason: SHORT OF BREATH/WHEEZING Last Admin: 10/20/19 08:41 Dose: 1 amp Apixaban (Eliquis -) 5 mg PEG BID [facility] Last Admin: 10/19/19 21:34 Dose: 5 mg Diltiazem HCl (Cardizem Injection -) 10 mg IVPUSH Q4H PRN PRN Reason: TACHYCARDIA Fluticasone Propionate (Flonase -) 1 spray NS DAILY [facility] Last Admin: 10/19/19 11:23 Dose: 1 spray Furosemide (Lasix -) 40 mg PO DAILY [facility] Last Admin: 10/19/19 11:21 Dose: 40 mg Insulin Aspart (Novolog Vial Sliding Scale -) 1 vial SQ [facility]; Protocol Last Admin: 10/20/19 06:22 Dose: Not Given Latanoprost (Xalatan 0.005% Eye Drops -) 1 drop OD HS [facility] Last Admin: 10/19/19 21:34 Dose: 1 drop Metoprolol Tartrate (Lopressor -) 25 mg NGT BID [facility] Last Admin: 10/19/19 21:34 Dose: 25 mg Pantoprazole Sodium (Protonix -) 20 mg PO DAILY [facility] Last Admin: 10/19/19 11:21 Dose: 20 mg Timolol Maleate (Timoptic 0.5%) 1 drop OU BID [facility] Last Admin: 10/19/19 21:35 Dose: 1 drop Valsartan (Diovan -) 40 mg NGT DAILY [facility] Last Admin: 10/19/19 11:21 Dose: 40 mg - Objective Vital Signs: Vital Signs Temperature 97.8 F 10/20/19 06:00 Pulse Rate 74 10/20/19 06:00 Respiratory Rate 8 L 10/20/19 06:00 Blood Pressure 105/71 10/20/19 06:00 O2 Sat by Pulse Oximetry (%) 94 L 10/19/19 20:18 Constitutional: Yes: No Distress Eyes: Yes: Conjunctiva Clear HENT: Yes: Atraumatic Neck: Yes: Supple Cardiovascular: No: Regular Rate and Rhythm Respiratory: Yes: Diminished Gastrointestinal: Yes: Soft. No: Tenderness Genitourinary: No: Hematuria Musculoskeletal: No: Joint Stiffness, Joint Swelling Extremities: No: Cold, Cool Edema: No Integumentary: No: Rash, Venous Stasis Changes Neurological: Yes: Alert ...Motor Strength: WNL Psychiatric: Yes: Alert. No: Agitated Labs: CBC, BMP 10/20/19 05:45 10/19/19 05:55 INR, PTT INR 1.19 (0.83-1.09) H 10/16/19 06:05 - ....Imaging Other: Report Reviewed Assessment/Plan 83 yo F h/of Colon Ca (s/p Hemicolectomy, 02/2019), HTN, HLD, Afib ( on Eliquis) , Diastolic CHF, HLD, Hyperthyroidism s/p hernia repair, adhesions, s/p incidental enterotomy and partial small bowel resection / reanastomosis and mesh placement; improving po eliquis, advance diet as tolerated cardiology f/u; BP stable on BP meds; prerenal azotemia and low electrolytes - per ICU, renal f/u DVT PFX, decubs, aspiration PFX; f/u labs; I/O Graham; incentive spirometry, bedside PT; will need SNF d.w staff d/w pts' daughter at bedside
[2019-10-20] MEDS: METOPROLOL TARTRATE 25 MG TABLET (FP) NGT SCH ×2 (10:33→21:14)
[2019-10-20] MEDS: VALSARTAN 40 MG TABLET (FP) NGT SCH (10:33)
[2019-10-20] MEDS ORDERED: PT OWN MED DRAWER 7, Y5N ONE (10:39)
[2019-10-20] MEDS: PANTOPRAZOLE 20 MG TABLET (FP) PO SCH (10:40)
[2019-10-20] MEDS: FUROSEMIDE 40 MG TABLET (FP) PO SCH (10:40)
[2019-10-20] MEDS: APIXABAN 5 MG TABLET PEG SCH ×2 (10:40→21:14)
[2019-10-20] MEDS: TIMOLOL 0.5% OPHTHALMIC SOL 5 ML BOTTLE OU SCH ×2 (10:42→21:15)
[2019-10-20] MEDS: FLUTICASONE PROP 0.05% 16 GM NASAL SPRAY NS SCH (10:42)
--- NOTE | 2019-10-20 15:20 | PN ---
Progress Note, Physician History of Present Illness: Hemodynamics stable with rate-controlled afib. Tolerating diet, resolved incisional pain, passing flatus and loose BM. - Current Medication List Current Medications: Active Medications Albuterol Sulfate (Ventolin 0.083% Nebulizer Soln -) 1 amp NEB Q6H PRN PRN Reason: SHORT OF BREATH/WHEEZING Last Admin: 10/20/19 08:41 Dose: 1 amp Apixaban (Eliquis -) 5 mg PEG BID [facility] Last Admin: 10/20/19 10:40 Dose: 5 mg Diltiazem HCl (Cardizem Injection -) 10 mg IVPUSH Q4H PRN PRN Reason: TACHYCARDIA Fluticasone Propionate (Flonase -) 1 spray NS DAILY [facility] Last Admin: 10/20/19 10:42 Dose: 1 spray Furosemide (Lasix -) 40 mg PO DAILY [facility] Last Admin: 10/20/19 10:40 Dose: 40 mg Insulin Aspart (Novolog Vial Sliding Scale -) 1 vial SQ ACHS [facility]; Protocol Last Admin: 10/20/19 11:40 Dose: Not Given Latanoprost (Xalatan 0.005% Eye Drops -) 1 drop OD HS [facility] Last Admin: 10/19/19 21:34 Dose: 1 drop Metoprolol Tartrate (Lopressor -) 25 mg NGT BID [facility] Last Admin: 10/20/19 10:33 Dose: Not Given Pantoprazole Sodium (Protonix -) 20 mg PO DAILY [facility] Last Admin: 10/20/19 10:40 Dose: 20 mg Timolol Maleate (Timoptic 0.5%) 1 drop OU BID [facility] Last Admin: 10/20/19 10:42 Dose: 1 drop Valsartan (Diovan -) 40 mg NGT DAILY [facility] Last Admin: 10/20/19 10:33 Dose: Not Given - Objective Vital Signs: Vital Signs Temperature 97.9 F 10/20/19 10:15 Pulse Rate 62 10/20/19 14:00 Respiratory Rate 18 10/20/19 14:00 Blood Pressure 101/56 L 10/20/19 14:00 O2 Sat by Pulse Oximetry (%) 98 10/20/19 10:00 Constitutional: Yes: No Distress, Calm Neck: Yes: Supple Cardiovascular: Yes: Pulse Irregular Respiratory: Yes: Regular, Diminished Gastrointestinal: Yes: Normal Bowel Sounds, Soft Edema: No Labs: CBC, BMP 10/20/19 05:45 10/19/19 05:55 INR, PTT INR 1.19 (0.83-1.09) H 10/16/19 06:05 - ....Imaging EKG: Report Reviewed (Tele: Rate-controlled afib) Assessment/Plan 10/12/2019 Echo: Normal LV size and fxn LVEF 55-60%, mild LAE, mild MR, TR, AR Problem List - Problems (1) Afib Code(s): I48.91 - UNSPECIFIED ATRIAL FIBRILLATION Qualifiers: Atrial fibrillation type: chronic (2) Anemia Code(s): D64.9 - ANEMIA, UNSPECIFIED (3) Glaucoma Code(s): H40.9 - UNSPECIFIED GLAUCOMA (4) Hyperthyroidism Code(s): E05.90 - THYROTOXICOSIS, UNSP WITHOUT THYROTOXIC CRISIS OR STORM (5) New onset atrial fibrillation Code(s): I48.91 - UNSPECIFIED ATRIAL FIBRILLATION (6) S/P left hemicolectomy Code(s): Z90.49 - ACQUIRED ABSENCE OF OTHER SPECIFIED PARTS OF DIGESTIVE TRACT (7) Acute on chronic diastolic (congestive) heart failure Code(s): I50.33 - ACUTE ON CHRONIC DIASTOLIC (CONGESTIVE) HEART FAILURE (8) Asthma Code(s): J45.909 - UNSPECIFIED ASTHMA, UNCOMPLICATED Qualifiers: Asthma severity: mild Asthma persistence: intermittent Asthma complication type: unspecified Qualified Code(s): J45.20 - Mild intermittent asthma, uncomplicated (9) CAD (coronary artery disease) Code(s): I25.10 - ATHSCL HEART DISEASE OF [place] CORONARY ARTERY W/O ANG PCTRS Qualifiers: Coronary Disease-Associated Artery/Lesion type: [place] artery [place] vs. transplanted heart: [place] heart Associated angina: without angina Qualified Code(s): I25.10 - Atherosclerotic heart disease of [place] coronary artery without angina pectoris (10) HTN (hypertension) Code(s): I10 - ESSENTIAL (PRIMARY) HYPERTENSION Qualifiers: Hypertension type: essential hypertension Qualified Code(s): I10 - Essential (primary) hypertension (11) Parkinson disease Code(s): G20 - PARKINSON'S DISEASE Assessment/Plan 1. s/p acute respiratory failure, currently stable 2. Post abdominal hernia repair complicated by small bowel resection and mesh placement 3. Persistent atrial Fibrillation [id number] score of 5 4. Diastolic LV dysfunction with clinical class 0 NYHA classification LV failure , generalized edema 5. HTN 6. DM 7. Hyperthyroidism 8. Acute renal insufficiency 9. Hematuria, resolved 10. History of cervical carcinoma post resection 11. History of colon carcinoma post javi-colectomy PLAN: 1. Resumed diet per S&S, drain management 2. IV Cardizem as needed for rate control 3. Lopressor 25 bid and Diovan 40 qd, Lasix 40 qd 4. Eliquis 5 bid given resolved hematuria 5. Completed empiric antibiotic course, BD, O2 as needed
--- NOTE | 2019-10-20 15:24 | PN ---
Progress Note (short form) - Note Progress Note: Attending Surgeon POD #12 Tolerating regular diet; having liquid BM's and passing flatus; off antibiotics. VSS AF abdo-soft and non tender; incision c/d/i; drains w/decreased output labs noted IMP: improving post op PLAN: OOB; continue drains; continue present tx. per ICU. John Alvarado MD FACS
[2019-10-20] MEDS: LATANOPROST 0.005% OPHTH SOLN 2.5ML BOTTLE OD SCH (21:15)
[2019-10-21] MEDS: INSULIN SLIDING SCALE (NOVOLOG) 1 VIAL SQ SCH ×4 (07:16→21:11)
[2019-10-21] MEDS: ALBUTEROL SO4 0.083% IH SOL 2.5 MG/3 ML VIAL.NEB. NEB PRN ×3 (07:35→23:37)
--- NOTE | 2019-10-21 09:35 | PN ---
Progress Note, Physician Chief Complaint: in bed NAD VSS afebrile no pain - Current Medication List Current Medications: Active Medications Albuterol Sulfate (Ventolin 0.083% Nebulizer Soln -) 1 amp NEB Q6H PRN PRN Reason: SHORT OF BREATH/WHEEZING Last Admin: 10/21/19 07:35 Dose: 1 amp Apixaban (Eliquis -) 5 mg PEG BID [facility] Last Admin: 10/20/19 21:14 Dose: 5 mg Diltiazem HCl (Cardizem Injection -) 10 mg IVPUSH Q4H PRN PRN Reason: TACHYCARDIA Fluticasone Propionate (Flonase -) 1 spray NS DAILY [facility] Last Admin: 10/20/19 10:42 Dose: 1 spray Furosemide (Lasix -) 40 mg PO DAILY [facility] Last Admin: 10/20/19 10:40 Dose: 40 mg Insulin Aspart (Novolog Vial Sliding Scale -) 1 vial SQ ACHS [facility]; Protocol Last Admin: 10/21/19 07:16 Dose: Not Given Latanoprost (Xalatan 0.005% Eye Drops -) 1 drop OD HS [facility] Last Admin: 10/20/19 21:15 Dose: 1 drop Metoprolol Tartrate (Lopressor -) 25 mg NGT BID [facility] Last Admin: 10/20/19 21:14 Dose: 25 mg Pantoprazole Sodium (Protonix -) 20 mg PO DAILY [facility] Last Admin: 10/20/19 10:40 Dose: 20 mg Timolol Maleate (Timoptic 0.5%) 1 drop OU BID [facility] Last Admin: 10/20/19 21:15 Dose: 1 drop Valsartan (Diovan -) 40 mg NGT DAILY [facility] Last Admin: 10/20/19 10:33 Dose: Not Given - Objective Vital Signs: Vital Signs Temperature 98.5 F 10/21/19 08:42 Pulse Rate 75 10/21/19 08:42 Respiratory Rate 22 H 10/21/19 08:42 Blood Pressure 86/73 L 10/21/19 08:42 O2 Sat by Pulse Oximetry (%) 98 10/20/19 21:00 Constitutional: Yes: No Distress Eyes: Yes: Conjunctiva Clear HENT: Yes: Atraumatic Neck: Yes: Supple Cardiovascular: No: Regular Rate and Rhythm Respiratory: Yes: Diminished Gastrointestinal: Yes: Soft. No: Tenderness Genitourinary: No: Hematuria Musculoskeletal: No: Joint Stiffness, Joint Swelling Extremities: No: Cold, Cool Edema: No Integumentary: No: Rash, Venous Stasis Changes Neurological: Yes: Alert ...Motor Strength: WNL Psychiatric: Yes: Alert. No: Agitated Labs: CBC, BMP 10/20/19 05:45 10/19/19 05:55 INR, PTT INR 1.19 (0.83-1.09) H 10/16/19 06:05 - ....Imaging Other: Report Reviewed Assessment/Plan 83 yo F h/of Colon Ca (s/p Hemicolectomy, 02/2019), HTN, HLD, Afib ( on Eliquis) , Diastolic CHF, HLD, Hyperthyroidism s/p hernia repair, adhesions, s/p incidental enterotomy and partial small bowel resection / reanastomosis and mesh placement; improving po eliquis, advance diet as tolerated cardiology f/u; BP stable on BP meds; prerenal azotemia - renal f/u DVT PFX, decubs, aspiration PFX; f/u labs; I/O Graham; incentive spirometry, bedside PT; will need SNF d.w staff d/w pt
[2019-10-21] MEDS: FUROSEMIDE 40 MG TABLET (FP) PO SCH (09:49)
[2019-10-21] MEDS: VALSARTAN 40 MG TABLET (FP) NGT SCH (09:49)
[2019-10-21] MEDS: PANTOPRAZOLE 20 MG TABLET (FP) PO SCH (09:49)
[2019-10-21] MEDS: METOPROLOL TARTRATE 25 MG TABLET (FP) NGT SCH ×2 (09:49→21:11)
[2019-10-21] MEDS: APIXABAN 5 MG TABLET PEG SCH ×2 (09:49→21:16)
[2019-10-21] MEDS: TIMOLOL 0.5% OPHTHALMIC SOL 5 ML BOTTLE OU SCH ×2 (09:50→21:20)
[2019-10-21] MEDS: FLUTICASONE PROP 0.05% 16 GM NASAL SPRAY NS SCH (09:50)
--- NOTE | 2019-10-21 20:05 | PN ---
Progress Note, Physician History of Present Illness: Hemodynamics stable with rate-controlled afib. Tolerating diet, resolved incisional pain, passing flatus and loose BM. - Current Medication List Current Medications: Active Medications Apixaban (Eliquis -) 5 mg PEG BID [facility] Last Admin: 10/21/19 09:49 Dose: 5 mg Diltiazem HCl (Cardizem Injection -) 10 mg IVPUSH Q4H PRN PRN Reason: TACHYCARDIA Fluticasone Propionate (Flonase -) 1 spray NS DAILY [facility] Last Admin: 10/21/19 09:50 Dose: 1 spray Furosemide (Lasix -) 40 mg PO DAILY [facility] Last Admin: 10/21/19 09:49 Dose: 40 mg Insulin Aspart (Novolog Vial Sliding Scale -) 1 vial SQ [facility]; Protocol Last Admin: 10/21/19 16:13 Dose: Not Given Latanoprost (Xalatan 0.005% Eye Drops -) 1 drop OD HS [facility] Last Admin: 10/20/19 21:15 Dose: 1 drop Metoprolol Tartrate (Lopressor -) 25 mg NGT BID [facility] Last Admin: 10/21/19 09:49 Dose: 25 mg Pantoprazole Sodium (Protonix -) 20 mg PO DAILY [facility] Last Admin: 10/21/19 09:49 Dose: 20 mg Timolol Maleate (Timoptic 0.5%) 1 drop OU BID [facility] Last Admin: 10/21/19 09:50 Dose: 1 drop Valsartan (Diovan -) 40 mg NGT DAILY [facility] Last Admin: 10/21/19 09:49 Dose: 40 mg - Objective Vital Signs: Vital Signs Temperature 98.5 F 10/21/19 08:42 Pulse Rate 60 10/21/19 16:34 Respiratory Rate 20 10/21/19 16:34 Blood Pressure 86/46 L 10/21/19 16:34 O2 Sat by Pulse Oximetry (%) 98 10/21/19 10:00 Constitutional: Yes: No Distress, Calm Neck: Yes: Supple Cardiovascular: Yes: Pulse Irregular Respiratory: Yes: Regular, Diminished, On Nasal O2 Gastrointestinal: Yes: Normal Bowel Sounds, Soft Edema: No Labs: CBC, BMP 10/20/19 05:45 10/19/19 05:55 INR, PTT INR 1.19 (0.83-1.09) H 10/16/19 06:05 - ....Imaging EKG: Report Reviewed (Tele: Rate-controlled afib) Assessment/Plan 10/12/2019 Echo: Normal LV size and fxn LVEF 55-60%, mild LAE, mild MR, TR, AR Problem List - Problems (1) Afib Code(s): I48.91 - UNSPECIFIED ATRIAL FIBRILLATION Qualifiers: Atrial fibrillation type: chronic (2) Anemia Code(s): D64.9 - ANEMIA, UNSPECIFIED (3) Glaucoma Code(s): H40.9 - UNSPECIFIED GLAUCOMA (4) Hyperthyroidism Code(s): E05.90 - THYROTOXICOSIS, UNSP WITHOUT THYROTOXIC CRISIS OR STORM (5) New onset atrial fibrillation Code(s): I48.91 - UNSPECIFIED ATRIAL FIBRILLATION (6) S/P left hemicolectomy Code(s): Z90.49 - ACQUIRED ABSENCE OF OTHER SPECIFIED PARTS OF DIGESTIVE TRACT (7) Acute on chronic diastolic (congestive) heart failure Code(s): I50.33 - ACUTE ON CHRONIC DIASTOLIC (CONGESTIVE) HEART FAILURE (8) Asthma Code(s): J45.909 - UNSPECIFIED ASTHMA, UNCOMPLICATED Qualifiers: Asthma severity: mild Asthma persistence: intermittent Asthma complication type: unspecified Qualified Code(s): J45.20 - Mild intermittent asthma, uncomplicated (9) CAD (coronary artery disease) Code(s): I25.10 - ATHSCL HEART DISEASE OF [place] CORONARY ARTERY W/O ANG PCTRS Qualifiers: Coronary Disease-Associated Artery/Lesion type: [place] artery [place] vs. transplanted heart: [place] heart Associated angina: without angina Qualified Code(s): I25.10 - Atherosclerotic heart disease of [place] coronary artery without angina pectoris (10) HTN (hypertension) Code(s): I10 - ESSENTIAL (PRIMARY) HYPERTENSION Qualifiers: Hypertension type: essential hypertension Qualified Code(s): I10 - Essential (primary) hypertension (11) Parkinson disease Code(s): G20 - PARKINSON'S DISEASE Assessment/Plan 1. s/p acute respiratory failure, currently stable 2. Post abdominal hernia repair complicated by small bowel resection and mesh placement 3. Persistent atrial Fibrillation [id number] score of 5 4. Diastolic LV dysfunction with clinical class 0 NYHA classification LV failure , generalized edema 5. HTN 6. DM 7. Hyperthyroidism 8. Acute renal insufficiency 9. Hematuria, resolved 10. History of cervical carcinoma post resection 11. History of colon carcinoma post javi-colectomy PLAN: 1. Resumed diet per S&S, drain management 2. IV Cardizem as needed for rate control 3. Lopressor 25 bid and Diovan 40 qd, Lasix 40 qd 4. Eliquis 5 bid given resolved hematuria 5. Completed empiric antibiotic course, BD, O2 as needed
[2019-10-21] MEDS: LATANOPROST 0.005% OPHTH SOLN 2.5ML BOTTLE OD SCH (21:20)
[2019-10-21] MEDS: PIPERACILLIN/TAZOB 3.375 GM 3.375 GM in DEXTROSE 5%-WATER - 50 ML IVPB SCH (21:39)
[2019-10-22] MEDS: INSULIN SLIDING SCALE (NOVOLOG) 1 VIAL SQ SCH ×4 (06:28→21:51)
[2019-10-22 06:40] LABS: BASO % 0.3 % (0-2.0); EOS % 2.4 % (0-4.5); HEMATOCRIT 24.7 % (32.4-45.2); LYMPH % 20.8 % (8-40); MCH 28.4 pg (25.7-33.7); MCHC 32.4 g/dl (32.0-36.0); MEAN CELL VOLUME 87.8 fl (80-96); MEAN PLT VOLUME 7.8 fl (7.5-11.1); MONO % 6.8 % (3.8-10.2); NEUT % 69.7 % (42.8-82.8); PLATELET COUNT 233 K/MM3 (134-434); RBC 2.81 M/mm3 (3.60-5.2); RDW 16.6 % (11.6-15.6); WHITE BLOOD COUNT 7.5 K/mm3 (4.0-10.0)
[2019-10-22 07:07] LABS: ALBUMIN 2.3 g/dl (3.4-5.0); BILIRUBIN,TOTAL 0.4 mg/dL (0.2-1); BLOOD UREA NITROGEN 16.4 mg/dL (7-18); CALCIUM 7.8 mg/dL (8.5-10.1); CREATININE 0.6 mg/dL (0.55-1.3); POTASSIUM 3.5 mmol/L (3.5-5.1); TOT PROT 4.7 g/dl (6.4-8.2)
[2019-10-22] MEDS: ALBUTEROL SO4 0.083% IH SOL 2.5 MG/3 ML VIAL.NEB. NEB PRN ×3 (07:35→21:24)
--- NOTE | 2019-10-22 09:16 | PN ---
Progress Note (short form) - Note Progress Note: SURGERY 84yo F s/p ventral hernia repair with small bowel resection. Pt seen and examined at bedside. Pt states that she is feeling better. Pt denies n/v, fever, chills. Pt tolerating diet and passing flatus/BMs. Pt has been ambulating a little bit with PT. Last Vital Signs Temp Pulse Resp BP Pulse Ox 97.8 F 72 21 H 92/53 L 95 10/22/19 02:00 10/22/19 06:00 10/22/19 06:00 10/22/19 06:00 10/21/19 20:51 CBC, BMP 10/22/19 05:55 10/22/19 05:55 PE: Gen: A&O x 3 Resp: breathing comfortably Abd: soft, nondistended, incision clean with no erythema or discharge, lucius in place Problem List - Problems (1) S/P repair of ventral hernia Assessment/Plan: Plan -pt appears to be doing well -emphasize OOB/ambulate -dvt ppx Pt seen and discussed with Dr. Alvarado who agrees with plan Code(s): Z98.890 - OTHER SPECIFIED POSTPROCEDURAL STATES; Z87.19 - PERSONAL HISTORY OF OTHER DISEASES OF THE DIGESTIVE SYSTEM
[2019-10-22] MEDS: VALSARTAN 40 MG TABLET (FP) NGT SCH (10:19)
[2019-10-22] MEDS: APIXABAN 5 MG TABLET PEG SCH ×2 (10:19→21:13)
[2019-10-22] MEDS: METOPROLOL TARTRATE 25 MG TABLET (FP) NGT SCH ×2 (10:20→21:13)
--- NOTE | 2019-10-22 10:21 | PN ---
Progress Note, Physician Chief Complaint: Not in distress History of Present Illness: Patient was seen and examined. Awake. Chart was reviewed AF with variable HR - Rate controlled - Current Medication List Current Medications: Active Medications Albuterol Sulfate (Ventolin 0.083% Nebulizer Soln -) 1 amp NEB Q6H PRN PRN Reason: SHORT OF BREATH/WHEEZING Last Admin: 10/22/19 07:35 Dose: 1 amp Apixaban (Eliquis -) 5 mg PEG BID [facility] Last Admin: 10/21/19 21:16 Dose: 5 mg Diltiazem HCl (Cardizem Injection -) 10 mg IVPUSH Q4H PRN PRN Reason: TACHYCARDIA Fluticasone Propionate (Flonase -) 1 spray NS DAILY [facility] Last Admin: 10/21/19 09:50 Dose: 1 spray Furosemide (Lasix -) 40 mg PO DAILY [facility] Last Admin: 10/21/19 09:49 Dose: 40 mg Insulin Aspart (Novolog Vial Sliding Scale -) 1 vial SQ ACHS [facility]; Protocol Last Admin: 10/22/19 06:28 Dose: Not Given Latanoprost (Xalatan 0.005% Eye Drops -) 1 drop OD HS [facility] Last Admin: 10/21/19 21:20 Dose: 1 drop Metoprolol Tartrate (Lopressor -) 25 mg NGT BID [facility] Last Admin: 10/21/19 21:11 Dose: Not Given Pantoprazole Sodium (Protonix -) 20 mg PO DAILY [facility] Last Admin: 10/21/19 09:49 Dose: 20 mg Timolol Maleate (Timoptic 0.5%) 1 drop OU BID [facility] Last Admin: 10/21/19 21:20 Dose: 1 drop Valsartan (Diovan -) 40 mg NGT DAILY [facility] Last Admin: 10/21/19 09:49 Dose: 40 mg - Objective Vital Signs: Vital Signs Temperature 97.8 F 10/22/19 02:00 Pulse Rate 72 10/22/19 06:00 Respiratory Rate 21 H 10/22/19 06:00 Blood Pressure 92/53 L 10/22/19 06:00 O2 Sat by Pulse Oximetry (%) 95 10/21/19 20:51 Eyes: Yes: PERRL HENT: Yes: Atraumatic Neck: Yes: Supple Cardiovascular: Yes: Pulse Irregular, S1, S2 Respiratory: Yes: Diminished Gastrointestinal: Yes: Other (Post op) Edema: No Labs: CBC, BMP 10/22/19 05:55 10/22/19 05:55 Problem List - Problems (1) Afib Code(s): I48.91 - UNSPECIFIED ATRIAL FIBRILLATION Qualifiers: Atrial fibrillation type: chronic (2) Anemia Code(s): D64.9 - ANEMIA, UNSPECIFIED (3) Glaucoma Code(s): H40.9 - UNSPECIFIED GLAUCOMA (4) Hyperthyroidism Code(s): E05.90 - THYROTOXICOSIS, UNSP WITHOUT THYROTOXIC CRISIS OR STORM (5) New onset atrial fibrillation Code(s): I48.91 - UNSPECIFIED ATRIAL FIBRILLATION (6) S/P left hemicolectomy Code(s): Z90.49 - ACQUIRED ABSENCE OF OTHER SPECIFIED PARTS OF DIGESTIVE TRACT (7) Acute on chronic diastolic (congestive) heart failure Code(s): I50.33 - ACUTE ON CHRONIC DIASTOLIC (CONGESTIVE) HEART FAILURE (8) Asthma Code(s): J45.909 - UNSPECIFIED ASTHMA, UNCOMPLICATED Qualifiers: Asthma severity: mild Asthma persistence: intermittent Asthma complication type: unspecified Qualified Code(s): J45.20 - Mild intermittent asthma, uncomplicated (9) CAD (coronary artery disease) Code(s): I25.10 - ATHSCL HEART DISEASE OF [place] CORONARY ARTERY W/O ANG PCTRS Qualifiers: Coronary Disease-Associated Artery/Lesion type: [place] artery [place] vs. transplanted heart: [place] heart Associated angina: without angina Qualified Code(s): I25.10 - Atherosclerotic heart disease of [place] coronary artery without angina pectoris (10) HTN (hypertension) Code(s): I10 - ESSENTIAL (PRIMARY) HYPERTENSION Qualifiers: Hypertension type: essential hypertension Qualified Code(s): I10 - Essential (primary) hypertension (11) Parkinson disease Code(s): G20 - PARKINSON'S DISEASE Assessment/Plan 1. Post acute respiratory failure, currently stable 2. Post abdominal hernia repair complicated by small bowel resection and mesh placement 3. Persistent atrial Fibrillation [id number] score of 5 4. Diastolic LV dysfunction with clinical class 0 NYHA classification LV failure , generalized edema 5. HTN 6. DM 7. Hyperthyroidism 8. Acute renal insufficiency 9. Hematuria 10. History of cervical carcinoma post resection 11. History of colon carcinoma post javi-colectomy PLAN: 1. Current supportive care and post operative management 2. IV Cardizem as needed for rate control 3. Lopressor 25 mg BID, Diovan 40 mg QD and Lasix 40 mg QD 4. Eliquis 5 mg BID 5. Bronchodilator and O2 as needed Johann Cowan MD
[2019-10-22] MEDS: FUROSEMIDE 40 MG TABLET (FP) PO SCH (10:22)
[2019-10-22] MEDS: PANTOPRAZOLE 20 MG TABLET (FP) PO SCH (10:22)
[2019-10-22] MEDS: FLUTICASONE PROP 0.05% 16 GM NASAL SPRAY NS SCH (10:27)
[2019-10-22] MEDS: TIMOLOL 0.5% OPHTHALMIC SOL 5 ML BOTTLE OU SCH ×2 (10:28→21:14)
--- NOTE | 2019-10-22 10:45 | OP ---
DATE OF OPERATION: 10/08/2019 PREOPERATIVE DIAGNOSIS: Incisional hernia. POSTOPERATIVE DIAGNOSIS: Incisional hernia. PROCEDURE: Repair incisional hernia with Phasix mesh and small-bowel resection. SURGEON: John Alvarado MD NUCLEAR FUEL PROCESSING TECHNICIAN: Michele Amin PA-C ANESTHESIA: General. OPERATIVE FINDINGS: There were multiple adhesions from previous surgery. There was a large incisional hernia from the previous surgery. The rest of the findings were unremarkable. DESCRIPTION OF PROCEDURE: The patient was placed on the operating table in supine position, and after the induction of general anesthesia and placement of sequential compression devices on the patient's lower extremity and Berry catheter, the patient's abdomen was prepped with ChloraPrep and draped in sterile fashion. A time-out was taken and incision of the previous scar was carried out using a scalpel. Upon entrance into the peritoneal cavity, adhesions were taken down using blunt and sharp dissection, and during the course of this, 2 enterotomies were made in the small bowel. The enterotomies were temporarily closed with silk suture and then a small-bowel resection was carried out by dividing the mesentery making a window in the mesentery proximal and distal to the perforations and dividing the bowel there with the ROBIN stapling device. Next, a [id number] anastomosis was carried out by excising the anti-mesenteric border corners of the staple line and creating a [id number] anastomosis using the ROBIN stapling device. Next, the common enterotomy was closed with the TA stapling device. Copious irrigation was carried out, and there was minimal spillage of small bowel contents. Next, the subcutaneous fat was mobilized off the fascia circumferentially for an area of at least 2 cm laterally around the perimeter of the abdominal wall fascia. Next, a piece of Phasix mesh was fashioned into the defect and omentum brought down to cover the small bowel and the Phasix mesh sewed in place with continuous No. 1 Prolene suture. At the completion of placement of the mesh, additional subcutaneous tissue and sac were mobilized partially to cover the mesh. Two drain sites were created in the lower aspect of the midline wound on either side of the midline, and two 10-mm J-P drains were placed in the subcutaneous tissue lateral to the repair. Copious irrigation was carried out and hemostasis secured with electrocautery and then the deep dermis was reapproximated with interrupted 2-0 Vicryl and the skin edges with surgical lucius. The drains were connected to bulb self-suction, and dry, sterile dressings were placed and the procedure terminated at this point and the patient transferred to the post anesthesia care unit in stable condition intubated. ESTIMATED BLOOD LOSS: 200 mL. REPLACEMENTS: Crystalloid. DRAINS: Two 10-mm Dustin-Smith. SPECIMEN: Portion of small bowel and portion of peritoneal and previous scar and adhesions. I, John Alvarado, was physically present in the operating room from the time the patient was placed on the operating room table until she was transferred to the post anesthesia care unit in [place]. MD CHELSEY Morin/[id number] MTDD
--- NOTE | 2019-10-22 10:47 | PN ---
Progress Note, Physician Chief Complaint: some moist cough since last night; no CP; afebrile - Current Medication List Current Medications: Active Medications Albuterol Sulfate (Ventolin 0.083% Nebulizer Soln -) 1 amp NEB Q6H PRN PRN Reason: SHORT OF BREATH/WHEEZING Last Admin: 10/22/19 07:35 Dose: 1 amp Apixaban (Eliquis -) 5 mg PEG BID [facility] Last Admin: 10/22/19 10:19 Dose: 5 mg Diltiazem HCl (Cardizem Injection -) 10 mg IVPUSH Q4H PRN PRN Reason: TACHYCARDIA Fluticasone Propionate (Flonase -) 1 spray NS DAILY [facility] Last Admin: 10/22/19 10:27 Dose: 1 spray Furosemide (Lasix -) 40 mg PO DAILY [facility] Last Admin: 10/22/19 10:22 Dose: 40 mg Insulin Aspart (Novolog Vial Sliding Scale -) 1 vial SQ [facility]; Protocol Last Admin: 10/22/19 06:28 Dose: Not Given Latanoprost (Xalatan 0.005% Eye Drops -) 1 drop OD HS [facility] Last Admin: 10/21/19 21:20 Dose: 1 drop Metoprolol Tartrate (Lopressor -) 25 mg NGT BID [facility] Last Admin: 10/22/19 10:20 Dose: 25 mg Pantoprazole Sodium (Protonix -) 20 mg PO DAILY [facility] Last Admin: 10/22/19 10:22 Dose: 20 mg Timolol Maleate (Timoptic 0.5%) 1 drop OU BID [facility] Last Admin: 10/22/19 10:28 Dose: 1 drop Valsartan (Diovan -) 40 mg NGT DAILY [facility] Last Admin: 10/22/19 10:19 Dose: 40 mg - Objective Vital Signs: Vital Signs Temperature 97.8 F 10/22/19 02:00 Pulse Rate 72 10/22/19 06:00 Respiratory Rate 21 H 10/22/19 06:00 Blood Pressure 92/53 L 10/22/19 06:00 O2 Sat by Pulse Oximetry (%) 95 10/21/19 20:51 Constitutional: Yes: No Distress Eyes: Yes: Conjunctiva Clear HENT: Yes: Atraumatic Neck: Yes: Supple Cardiovascular: No: Regular Rate and Rhythm Respiratory: Yes: Diminished Gastrointestinal: Yes: Soft. No: Tenderness Genitourinary: No: Hematuria Musculoskeletal: No: Joint Stiffness, Joint Swelling Extremities: Yes: Shortened. No: Cold, Cool Edema: No Integumentary: No: Rash, Venous Stasis Changes Neurological: Yes: Alert ...Motor Strength: WNL Psychiatric: Yes: Alert. No: Agitated Labs: CBC, BMP 10/22/19 05:55 10/22/19 05:55 INR, PTT INR 1.19 (0.83-1.09) H 10/16/19 06:05 - ....Imaging Other: Report Reviewed Assessment/Plan 83 yo F h/of Colon Ca (s/p Hemicolectomy, 02/2019), HTN, HLD, Afib ( on Eliquis) , Diastolic CHF, HLD, Hyperthyroidism s/p hernia repair, adhesions, s/p incidental enterotomy and partial small bowel resection / reanastomosis and mesh placement; improving po eliquis, advance diet as tolerated cough check CXR; incentive spirometry; HOB cardiology f/u; BP stable on BP meds; prerenal azotemia - renal f/u DVT PFX, decubs, aspiration PFX; f/u labs; I/O Graham; incentive spirometry, bedside PT; will need SNF d.w staff d/w pt and pt's daughter
[2019-10-22] MEDS: FERROUS SO4 325 MG TABLET (FP) PO SCH (12:38)
--- NOTE | 2019-10-22 14:27 | PN ---
Progress Note (short form) - Note Progress Note: Resting in NAD. Some intermittent congested cough. No acute events overnight. CXR: rotated / slightly under penetrated / increased Right Hilar markings Intake & Output 10/19/19 10/20/19 10/21/19 10/22/19 23:59 23:59 23:59 23:59 Intake Total 800 360 160 Output Total 30 10 6 8 Balance 770 350 154 -8 Weight 169 lb 5.04 oz Last Vital Signs Temp Pulse Resp BP Pulse Ox 98.2 F 58 L 21 H 106/60 95 10/22/19 10:00 10/22/19 10:00 10/22/19 10:00 10/22/19 10:00 10/22/19 09:00 Active Medications Albuterol Sulfate (Ventolin 0.083% Nebulizer Soln -) 1 amp NEB Q6H PRN PRN Reason: SHORT OF BREATH/WHEEZING Last Admin: 10/22/19 07:35 Dose: 1 amp Apixaban (Eliquis -) 5 mg PEG BID [facility] Last Admin: 10/22/19 10:19 Dose: 5 mg Diltiazem HCl (Cardizem Injection -) 10 mg IVPUSH Q4H PRN PRN Reason: TACHYCARDIA Ferrous Sulfate (Feosol -) 325 mg PO DAILY [facility] Last Admin: 10/22/19 12:38 Dose: 325 mg Fluticasone Propionate (Flonase -) 1 spray NS DAILY [facility] Last Admin: 10/22/19 10:27 Dose: 1 spray Furosemide (Lasix -) 40 mg PO DAILY [facility] Last Admin: 10/22/19 10:22 Dose: 40 mg Insulin Aspart (Novolog Vial Sliding Scale -) 1 vial SQ ACHS [facility]; Protocol Last Admin: 10/22/19 12:15 Dose: 2 units Latanoprost (Xalatan 0.005% Eye Drops -) 1 drop OD HS [facility] Last Admin: 10/21/19 21:20 Dose: 1 drop Metoprolol Tartrate (Lopressor -) 25 mg NGT BID [facility] Last Admin: 10/22/19 10:20 Dose: 25 mg Pantoprazole Sodium (Protonix -) 20 mg PO DAILY [facility] Last Admin: 10/22/19 10:22 Dose: 20 mg Timolol Maleate (Timoptic 0.5%) 1 drop OU BID [facility] Last Admin: 10/22/19 10:28 Dose: 1 drop Valsartan (Diovan -) 40 mg NGT DAILY [facility] Last Admin: 10/22/19 10:19 Dose: 40 mg Constitutional: Yes: No Distress Neck: Yes: Supple Cardiovascular: Yes: Pulse Irregular Respiratory: Yes: few scattered rhonchi, no wheeze Gastrointestinal: Yes: Normal Bowel Sounds, Soft Edema: No Labs: Laboratory Results - last 24 hr 10/21/19 10/21/19 10/22/19 16:12 21:02 05:55 WBC 7.5 RBC 2.81 L Hgb 8.0 L Hct 24.7 L MCV 87.8 MCH 28.4 MCHC 32.4 RDW 16.6 H Plt Count 233 MPV 7.8 Absolute Neuts (auto) 5.2 Neutrophils % 69.7 Lymphocytes % 20.8 D Monocytes % 6.8 Eosinophils % 2.4 Basophils % 0.3 Nucleated RBC % 0 Sodium Potassium Chloride Carbon Dioxide Anion Gap BUN Creatinine Est GFR (CKD-EPI)AfAm Est GFR (CKD-EPI)NonAf POC Glucometer 149 125 Random Glucose Calcium Total Bilirubin AST ALT Alkaline Phosphatase Total Protein Albumin 10/22/19 10/22/19 10/22/19 05:55 06:07 12:14 WBC RBC Hgb Hct MCV MCH MCHC RDW Plt Count MPV Absolute Neuts (auto) Neutrophils % Lymphocytes % Monocytes % Eosinophils % Basophils % Nucleated RBC % Sodium 145 Potassium 3.5 Chloride 107 Carbon Dioxide 33 H Anion Gap 5 L BUN 16.4 Creatinine 0.6 Est GFR (CKD-EPI)AfAm 97.69 Est GFR (CKD-EPI)NonAf 84.29 POC Glucometer 99 173 Random Glucose 91 Calcium 7.8 L Total Bilirubin 0.4 AST 16 ALT 21 Alkaline Phosphatase 58 Total Protein 4.7 L Albumin 2.3 L Problem List (1) Afib Code(s): I48.91 - UNSPECIFIED ATRIAL FIBRILLATION Qualifiers: Atrial fibrillation type: chronic (2) Anemia Code(s): D64.9 - ANEMIA, UNSPECIFIED (3) Glaucoma Code(s): H40.9 - UNSPECIFIED GLAUCOMA (4) Hyperthyroidism Code(s): E05.90 - THYROTOXICOSIS, UNSP WITHOUT THYROTOXIC CRISIS OR STORM (5) New onset atrial fibrillation Code(s): I48.91 - UNSPECIFIED ATRIAL FIBRILLATION (6) S/P left hemicolectomy Code(s): Z90.49 - ACQUIRED ABSENCE OF OTHER SPECIFIED PARTS OF DIGESTIVE TRACT (7) Acute on chronic diastolic (congestive) heart failure Code(s): I50.33 - ACUTE ON CHRONIC DIASTOLIC (CONGESTIVE) HEART FAILURE (8) Asthma Code(s): J45.909 - UNSPECIFIED ASTHMA, UNCOMPLICATED Qualifiers: Asthma severity: mild Asthma persistence: intermittent Asthma complication type: unspecified Qualified Code(s): J45.20 - Mild intermittent asthma, uncomplicated (9) CAD (coronary artery disease) Code(s): I25.10 - ATHSCL HEART DISEASE OF [place] CORONARY ARTERY W/O ANG PCTRS Qualifiers: Coronary Disease-Associated Artery/Lesion type: [place] artery [place] vs. transplanted heart: [place] heart Associated angina: without angina Qualified Code(s): I25.10 - Atherosclerotic heart disease of [place] coronary artery without angina pectoris (10) HTN (hypertension) Code(s): I10 - ESSENTIAL (PRIMARY) HYPERTENSION Qualifiers: Hypertension type: essential hypertension Qualified Code(s): I10 - Essential (primary) hypertension (11) Parkinson disease Code(s): G20 - PARKINSON'S DISEASE Assessment/Plan Encourage Incentive Spirometry O2 as needed to maintain saturation PO as tolerated Completed ABX course BD TX PRN OOB to chair / PT as tolerated Aspiration precautions Check AM CXR Dr Paez
[2019-10-22] MEDS ORDERED: PT OWN MED DRAWER 7, Y5N ONE (19:16)
[2019-10-22] MEDS: LATANOPROST 0.005% OPHTH SOLN 2.5ML BOTTLE OD SCH (21:15)
--- NOTE | 2019-10-23 07:45 | PN ---
Progress Note, Physician Chief Complaint: awake alert stable no new c/o daughter at bedside; ate OK passed BM no bleed no pain - Current Medication List Current Medications: Active Medications Albuterol Sulfate (Ventolin 0.083% Nebulizer Soln -) 1 amp NEB Q6H PRN PRN Reason: SHORT OF BREATH/WHEEZING Last Admin: 10/22/19 21:24 Dose: 1 amp Apixaban (Eliquis -) 5 mg PEG BID [facility] Last Admin: 10/22/19 21:13 Dose: 5 mg Diltiazem HCl (Cardizem Injection -) 10 mg IVPUSH Q4H PRN PRN Reason: TACHYCARDIA Ferrous Sulfate (Feosol -) 325 mg PO DAILY [facility] Last Admin: 10/22/19 12:38 Dose: 325 mg Fluticasone Propionate (Flonase -) 1 spray NS DAILY [facility] Last Admin: 10/22/19 10:27 Dose: 1 spray Furosemide (Lasix -) 40 mg PO DAILY [facility] Last Admin: 10/22/19 10:22 Dose: 40 mg Insulin Aspart (Novolog Vial Sliding Scale -) 1 vial SQ ACHS [facility]; Protocol Last Admin: 10/22/19 21:51 Dose: Not Given Latanoprost (Xalatan 0.005% Eye Drops -) 1 drop OD HS [facility] Last Admin: 10/22/19 21:15 Dose: 1 drop Metoprolol Tartrate (Lopressor -) 25 mg NGT BID [facility] Last Admin: 10/22/19 21:13 Dose: 25 mg Pantoprazole Sodium (Protonix -) 20 mg PO DAILY [facility] Last Admin: 10/22/19 10:22 Dose: 20 mg Timolol Maleate (Timoptic 0.5%) 1 drop OU BID [facility] Last Admin: 10/22/19 21:14 Dose: 1 drop Valsartan (Diovan -) 40 mg NGT DAILY [facility] Last Admin: 10/22/19 10:19 Dose: 40 mg - Objective Vital Signs: Vital Signs Temperature 99.2 F 10/22/19 18:15 Pulse Rate 62 10/23/19 03:00 Respiratory Rate 23 H 10/23/19 03:00 Blood Pressure 100/57 L 10/23/19 03:00 O2 Sat by Pulse Oximetry (%) 96 10/22/19 21:00 Constitutional: Yes: No Distress, Calm Eyes: Yes: Conjunctiva Clear HENT: Yes: Atraumatic Neck: Yes: Supple Cardiovascular: No: Regular Rate and Rhythm Respiratory: Yes: Diminished Gastrointestinal: Yes: Soft, Other (drain with minimal serosg drainage). No: Tenderness Genitourinary: No: Hematuria Musculoskeletal: No: Joint Stiffness, Joint Swelling Extremities: No: Cold, Cool, Cyanosis Edema: No Integumentary: No: Rash, Venous Stasis Changes Neurological: Yes: Alert ...Motor Strength: WNL Psychiatric: Yes: Alert. No: Agitated, Suicidal Ideation Labs: CBC, BMP 10/22/19 05:55 10/22/19 05:55 INR, PTT INR 1.19 (0.83-1.09) H 10/16/19 06:05 - ....Imaging Other: Report Reviewed Assessment/Plan 83 yo F h/of Colon Ca (s/p Hemicolectomy, 02/2019), HTN, HLD, Afib ( on Eliquis) , Diastolic CHF, HLD, Hyperthyroidism s/p hernia repair, adhesions, s/p incidental enterotomy and partial small bowel resection / reanastomosis and mesh placement; improving po eliquis, advance diet as tolerated cough check CXR; incentive spirometry; HOB cardiology f/u; BP stable on BP meds; prerenal azotemia - renal f/u DVT PFX, decubs, aspiration PFX; f/u labs; I/O Graham; incentive spirometry, bedside PT; will need SNF d.w staff d/w pt and pt's daughter
[2019-10-23] MEDS: INSULIN SLIDING SCALE (NOVOLOG) 1 VIAL SQ SCH ×4 (07:51→23:24)
--- NOTE | 2019-10-23 07:52 | PN ---
Progress Note (short form) - Note Progress Note: Chief Complaint: Events noted, notes reviewed, resting in bed comfortably, denies any chest pain, remains in atrial fibrillation rate controlled History of Present Illness: Seen and examined on telemetry. Events noted, notes reviewed, resting in bed comfortably, denies any chest pain, remains in atrial fibrillation rate controlled - Current Medication List Current Medications Albuterol Sulfate (Ventolin 0.083% Nebulizer Soln -) 1 amp NEB Q6H PRN PRN Reason: SHORT OF BREATH/WHEEZING Last Admin: 10/22/19 21:24 Dose: 1 amp Apixaban (Eliquis -) 5 mg PEG BID [facility] Last Admin: 10/22/19 21:13 Dose: 5 mg Diltiazem HCl (Cardizem Injection -) 10 mg IVPUSH Q4H PRN PRN Reason: TACHYCARDIA Ferrous Sulfate (Feosol -) 325 mg PO DAILY [facility] Last Admin: 10/22/19 12:38 Dose: 325 mg Fluticasone Propionate (Flonase -) 1 spray NS DAILY [facility] Last Admin: 10/22/19 10:27 Dose: 1 spray Furosemide (Lasix -) 40 mg PO DAILY [facility] Last Admin: 10/22/19 10:22 Dose: 40 mg Insulin Aspart (Novolog Vial Sliding Scale -) 1 vial SQ ACHS [facility]; Protocol Last Admin: 10/22/19 21:51 Dose: Not Given Latanoprost (Xalatan 0.005% Eye Drops -) 1 drop OD HS [facility] Last Admin: 10/22/19 21:15 Dose: 1 drop Metoprolol Tartrate (Lopressor -) 25 mg NGT BID [facility] Last Admin: 10/22/19 21:13 Dose: 25 mg Pantoprazole Sodium (Protonix -) 20 mg PO DAILY [facility] Last Admin: 10/22/19 10:22 Dose: 20 mg Timolol Maleate (Timoptic 0.5%) 1 drop OU BID [facility] Last Admin: 10/22/19 21:14 Dose: 1 drop Valsartan (Diovan -) 40 mg NGT DAILY [facility] Last Admin: 10/22/19 10:19 Dose: 40 mg Review of Systems Constitutional: denies: Chills or Fever Cardiovascular: as noted above Respiratory: as noted above Gastrointestinal: denies: Nausea, Vomiting, Diarrhea, Constipation or Abdominal Pain Genitourinary: denies: Dysuria Musculoskeletal: denies: Joint Pain Neurological: denies: Dizziness or Headache - Objective Vital Signs: Last Vital Signs Temp Pulse Resp BP Pulse Ox 99.2 F 62 23 H 100/57 L 96 10/22/19 18:15 10/23/19 03:00 10/23/19 03:00 10/23/19 03:00 10/22/19 21:00 Intake & Output 10/20/19 10/21/19 10/22/19 10/23/19 23:59 23:59 23:59 23:59 Intake Total 360 160 240 Output Total 10 6 8 Balance 350 154 232 Weight 169 lb 5.04 oz Neck: Supple Negative JVD No Bruit Respiratory: Scattered Rhonchi Bilaterally Cardiovascular: S1 S2 Irregularly Irregular Gastrointestinal: Soft Benign Normal Bowel Sounds Ext: Edema Labs: CBC, BMP 10/22/19 05:55 10/22/19 05:55 Hepatic Panel Total Bilirubin 0.4 mg/dL (0.2-1) 10/22/19 05:55 AST 16 U/L (15-37) 10/22/19 05:55 ALT 21 U/L (13-61) 10/22/19 05:55 Alkaline Phosphatase 58 U/L (45-117) 10/22/19 05:55 Albumin 2.3 g/dl (3.4-5.0) L 10/22/19 05:55 INR, PTT INR 1.19 (0.83-1.09) H 10/16/19 06:05 ABG Results ABG pH 7.41 (7.35-7.45) 10/12/19 08:00 ABG pCO2 at Pt Temp 42.7 mmHg (35-45) 10/12/19 08:00 ABG pO2 at Pt Temp 144 mmHg (80-100) H 10/12/19 08:00 ABG HCO3 26.3 mmol/L (22-27) 10/12/19 08:00 ABG O2 Sat (Measured) 99.1 % (95-98) H 10/12/19 08:00 ABG O2 Content 18.3 % vol 10/12/19 08:00 ABG Base Excess 1.9 meq/l (-2-2) 10/12/19 08:00 Assessment/Plan ASSESSMENT: 1. Post acute respiratory failure 2. Post abdominal hernia repair complicated by small bowel resection and mesh placement 3. Persistent atrial Fibrillation rate controlled [id number] score of 5 on A/C therapy with DOAC's 4. Diastolic LV dysfunction with clinical class 0 NYHA classification LV failure 5. HTN 6. DM 7. Hyperthyroidism 8. Acute renal insufficiency, resolved 9. Anemia 10. History of cervical carcinoma post resection 11. History of colon carcinoma post javi-colectomy PLAN: 1. Continue Lopressor, hemodynamics permitting 2. Continue Diovan, hemodynamics permitting 3. Continue Lasix 4. Continue A/C with DOAC's/Eliquis, with caution and close monitoring of Hg level, transfuse as needed to maintain Hg equal or > 8.0 5. Bronchodilators as per the primary team 6. May transfer to surgical floor from the cardiovascular point of view Meron Perera M.D.
--- NOTE | 2019-10-23 08:10 | PN ---
Progress Note (short form) - Note Progress Note: GENERAL SURGERY POD #16 s/p incisional hernia repair w/ Phasix mesh and sb resection; prolonged intubation extubated 10/10; [place] reintubated 10/12 extubated 10/15 No acute events per RN notes. Patient is alert. Recovering. She is OOB to chair with assistance. Passing flatus and bm's Tolerating clear liquid diet. Denies n/v/f/c, CP, palpitations, SOB or FREITAS. Last Vital Signs Temp Pulse Resp BP Pulse Ox 97.9 F 54 L 17 96/45 L 96 10/23/19 07:00 10/23/19 07:00 10/23/19 07:00 10/23/19 07:00 10/22/19 21:00 PE Gen: A&O x 3 Resp: unlabored respirations 96% on RA Cor: afib rate controlled Abd: soft, nondistended, lucius insitu. No evidence of wound infection (no erythema, discharge). Left EDMUNDO dc'd on rounds. Right EDMUNDO with minimal output ( serous) LE: SCDs bilat. Soft. NT. Problem List - Problems (1) S/P repair of ventral hernia Assessment/Plan: - Agree with Cardiology, patient can be downgraded to surgical floor - LEFT EDMUNDO dc'd on rounds. Most likely will dc remaining drain in AM - OOB and ambulate with PT - Advance diet as tolerated - DVT PPX - Pain management PRN - Above plan discussed with Dr. Alvarado and agrees. Code(s): Z98.890 - OTHER SPECIFIED POSTPROCEDURAL STATES; Z87.19 - PERSONAL HISTORY OF OTHER DISEASES OF THE DIGESTIVE SYSTEM (2) Obesity (BMI 30-39.9) Code(s): E66.9 - OBESITY, UNSPECIFIED (3) CVA (cerebral vascular accident) Code(s): I63.9 - CEREBRAL INFARCTION, UNSPECIFIED Qualifiers: CVA mechanism: unspecified Qualified Code(s): I63.9 - Cerebral infarction, unspecified (4) HTN (hypertension) Code(s): I10 - ESSENTIAL (PRIMARY) HYPERTENSION Qualifiers: Hypertension type: essential hypertension Qualified Code(s): I10 - Essential (primary) hypertension
[2019-10-23] MEDS ORDERED: PT OWN MED DRAWER 7, Y5N ONE (10:03)
[2019-10-23] MEDS: FUROSEMIDE 40 MG TABLET (FP) PO SCH (10:18)
[2019-10-23] MEDS: PANTOPRAZOLE 20 MG TABLET (FP) PO SCH (10:18)
[2019-10-23] MEDS: FERROUS SO4 325 MG TABLET (FP) PO SCH (10:18)
[2019-10-23] MEDS: FLUTICASONE PROP 0.05% 16 GM NASAL SPRAY NS SCH (10:18)
[2019-10-23] MEDS: APIXABAN 5 MG TABLET PEG SCH ×2 (10:18→23:20)
[2019-10-23] MEDS: TIMOLOL 0.5% OPHTHALMIC SOL 5 ML BOTTLE OU SCH ×2 (10:19→23:20)
[2019-10-23] MEDS: METOPROLOL TARTRATE 25 MG TABLET (FP) NGT SCH ×2 (10:19→23:20)
[2019-10-23] MEDS: VALSARTAN 40 MG TABLET (FP) NGT SCH (10:19)
--- NOTE | 2019-10-23 13:40 | PN ---
Progress Note (short form) - Note Progress Note: Resting in NAD. Some intermittent dry cough. No acute events overnight. CXR: no acute process Intake & Output 10/20/19 10/21/19 10/22/19 10/23/19 23:59 23:59 23:59 23:59 Intake Total 360 160 240 Output Total 10 6 8 0 Balance 350 154 232 0 Weight 169 lb 5.04 oz Last Vital Signs Temp Pulse Resp BP Pulse Ox 97.9 F 54 L 17 96/45 L 96 10/23/19 07:00 10/23/19 07:00 10/23/19 07:00 10/23/19 07:00 10/22/19 21:00 Active Medications Albuterol Sulfate (Ventolin 0.083% Nebulizer Soln -) 1 amp NEB Q6H PRN PRN Reason: SHORT OF BREATH/WHEEZING Last Admin: 10/22/19 21:24 Dose: 1 amp Apixaban (Eliquis -) 5 mg PEG BID [facility] Last Admin: 10/23/19 10:18 Dose: 5 mg Diltiazem HCl (Cardizem Injection -) 10 mg IVPUSH Q4H PRN PRN Reason: TACHYCARDIA Ferrous Sulfate (Feosol -) 325 mg PO DAILY [facility] Last Admin: 10/23/19 10:18 Dose: 325 mg Fluticasone Propionate (Flonase -) 1 spray NS DAILY [facility] Last Admin: 10/23/19 10:18 Dose: 1 spray Furosemide (Lasix -) 40 mg PO DAILY [facility] Last Admin: 10/23/19 10:18 Dose: 40 mg Insulin Aspart (Novolog Vial Sliding Scale -) 1 vial SQ ACHS [facility]; Protocol Last Admin: 10/23/19 13:17 Dose: Not Given Latanoprost (Xalatan 0.005% Eye Drops -) 1 drop OD HS [facility] Last Admin: 10/22/19 21:15 Dose: 1 drop Metoprolol Tartrate (Lopressor -) 25 mg NGT BID [facility] Last Admin: 10/23/19 10:19 Dose: Not Given Pantoprazole Sodium (Protonix -) 20 mg PO DAILY [facility] Last Admin: 10/23/19 10:18 Dose: 20 mg Timolol Maleate (Timoptic 0.5%) 1 drop OU BID [facility] Last Admin: 10/23/19 10:19 Dose: 1 drop Valsartan (Diovan -) 40 mg NGT DAILY [facility] Last Admin: 10/23/19 10:19 Dose: Not Given Constitutional: Yes: No Distress Neck: Yes: Supple Cardiovascular: Yes: Pulse Irregular Respiratory: Yes: few scattered rhonchi, no wheeze Gastrointestinal: Yes: Normal Bowel Sounds, Soft Edema: No Labs: Laboratory Results - last 24 hr 10/22/19 10/22/19 10/23/19 16:49 21:28 06:40 POC Glucometer 66 137 109 10/23/19 13:03 POC Glucometer 112 Problem List (1) Afib Code(s): I48.91 - UNSPECIFIED ATRIAL FIBRILLATION Qualifiers: Atrial fibrillation type: chronic (2) Anemia Code(s): D64.9 - ANEMIA, UNSPECIFIED (3) Glaucoma Code(s): H40.9 - UNSPECIFIED GLAUCOMA (4) Hyperthyroidism Code(s): E05.90 - THYROTOXICOSIS, UNSP WITHOUT THYROTOXIC CRISIS OR STORM (5) New onset atrial fibrillation Code(s): I48.91 - UNSPECIFIED ATRIAL FIBRILLATION (6) S/P left hemicolectomy Code(s): Z90.49 - ACQUIRED ABSENCE OF OTHER SPECIFIED PARTS OF DIGESTIVE TRACT (7) Acute on chronic diastolic (congestive) heart failure Code(s): I50.33 - ACUTE ON CHRONIC DIASTOLIC (CONGESTIVE) HEART FAILURE (8) Asthma Code(s): J45.909 - UNSPECIFIED ASTHMA, UNCOMPLICATED Qualifiers: Asthma severity: mild Asthma persistence: intermittent Asthma complication type: unspecified Qualified Code(s): J45.20 - Mild intermittent asthma, uncomplicated (9) CAD (coronary artery disease) Code(s): I25.10 - ATHSCL HEART DISEASE OF [place] CORONARY ARTERY W/O ANG PCTRS Qualifiers: Coronary Disease-Associated Artery/Lesion type: [place] artery [place] vs. transplanted heart: [place] heart Associated angina: without angina Qualified Code(s): I25.10 - Atherosclerotic heart disease of [place] coronary artery without angina pectoris (10) HTN (hypertension) Code(s): I10 - ESSENTIAL (PRIMARY) HYPERTENSION Qualifiers: Hypertension type: essential hypertension Qualified Code(s): I10 - Essential (primary) hypertension (11) Parkinson disease Code(s): G20 - PARKINSON'S DISEASE Assessment/Plan Encourage Incentive Spirometry O2 as needed to maintain saturation PO as tolerated Completed ABX course BD TX PRN OOB to chair / PT as tolerated Aspiration precautions Dr Paez
[2019-10-23] MEDS: ALBUTEROL SO4 0.083% IH SOL 2.5 MG/3 ML VIAL.NEB. NEB PRN (20:41)
[2019-10-23] MEDS: LATANOPROST 0.005% OPHTH SOLN 2.5ML BOTTLE OD SCH (23:21)
[2019-10-24] MEDS: INSULIN SLIDING SCALE (NOVOLOG) 1 VIAL SQ SCH ×4 (06:26→22:45)
[2019-10-24 06:27] LABS: BASO % 0.2 % (0-2.0); EOS % 1.7 % (0-4.5); HEMATOCRIT 24.3 % (32.4-45.2); HEMOGLOBIN 7.9 GM/dL (10.7-15.3); LYMPH % 13.9 % (8-40); MCH 28.4 pg (25.7-33.7); MCHC 32.4 g/dl (32.0-36.0); MEAN CELL VOLUME 87.7 fl (80-96); MEAN PLT VOLUME 7.7 fl (7.5-11.1); MONO % 6.7 % (3.8-10.2); NEUT % 77.5 % (42.8-82.8); PLATELET COUNT 230 K/MM3 (134-434); RBC 2.77 M/mm3 (3.60-5.2); RDW 17.1 % (11.6-15.6); WHITE BLOOD COUNT 9.3 K/mm3 (4.0-10.0)
[2019-10-24] MEDS: ALBUTEROL SO4 0.083% IH SOL 2.5 MG/3 ML VIAL.NEB. NEB PRN (06:32)
[2019-10-24 07:14] LABS: ALBUMIN 2.4 g/dl (3.4-5.0); BILIRUBIN,TOTAL 0.7 mg/dL (0.2-1); BLOOD UREA NITROGEN 15.4 mg/dL (7-18); CALCIUM 7.8 mg/dL (8.5-10.1); CREATININE 0.6 mg/dL (0.55-1.3); POTASSIUM 3.9 mmol/L (3.5-5.1); TOT PROT 4.7 g/dl (6.4-8.2)
[2019-10-24] MEDS ORDERED: PT OWN MED DRAWER 7, Y5N ONE ×2 (09:11→15:02)
[2019-10-24] MEDS: VALSARTAN 40 MG TABLET (FP) NGT SCH (09:44)
[2019-10-24] MEDS: PANTOPRAZOLE 20 MG TABLET (FP) PO SCH (09:44)
[2019-10-24] MEDS: FERROUS SO4 325 MG TABLET (FP) PO SCH (09:44)
[2019-10-24] MEDS: METOPROLOL TARTRATE 25 MG TABLET (FP) NGT SCH ×2 (09:44→22:01)
[2019-10-24] MEDS: APIXABAN 5 MG TABLET PEG SCH ×2 (09:44→22:02)
[2019-10-24] MEDS: FUROSEMIDE 40 MG TABLET (FP) PO SCH (09:44)
[2019-10-24] MEDS: TIMOLOL 0.5% OPHTHALMIC SOL 5 ML BOTTLE OU SCH ×2 (09:47→22:51)
[2019-10-24] MEDS: FLUTICASONE PROP 0.05% 16 GM NASAL SPRAY NS SCH (09:47)
--- NOTE | 2019-10-24 09:47 | PN ---
Progress Note (short form) - Note Progress Note: General Surgery Pt without any complaints of abd pain. Tolerating a diet. Bowel movements recorded. OOB and ambulated 15 feet x2 with PT Vital Signs Period Temp Pulse Resp BP Sys/Ugarte Pulse Ox Last 24 Hr 97.4 F-100.2 F 59-69 18-21 99-115/49-82 97 EDMUNDO: 20ml serosangrenous GEN: Alert and follows commands CV: RRR Lungs: CTA b/l anteriorly ABD: lucius c/d/i to midline. No erythema or drainage noted. Edmundo removed today with the tip intact. CBC, BMP 10/24/19 05:25 10/24/19 05:25 A/p: 84 yo female s/p incisional hernia repair with phasix mesh and SB resection Continue diet as tolerated DVT ppx with eliquis OOB with PT Continue diet as tolerated Iron supplements for anemia D/w Dr. Alvarado
--- NOTE | 2019-10-24 13:31 | PN ---
Progress Note (short form) - Note Progress Note: PULMONARY Blood pressure low this AM. Denies shortness of breath. Tolerating PO but poor appetite. Vital Signs Period Temp Pulse Resp BP Sys/Ugarte Pulse Ox Last 24 Hr 97.4 F-100.2 F 61-69 18-21 99-115/49-82 97-98 Gen: NAD at rest Heart: RRR Lung: decreased breath sounds at the bases Abd: soft, nontender Ext: no edema CBC, BMP 10/24/19 05:25 10/24/19 05:25 Active Medications Acetaminophen (Tylenol -) 650 mg PO Q6H PRN PRN Reason: FEVER Albuterol Sulfate (Ventolin 0.083% Nebulizer Soln -) 1 amp NEB Q6H PRN PRN Reason: SHORT OF BREATH/WHEEZING Last Admin: 10/24/19 06:32 Dose: 1 amp Apixaban (Eliquis -) 5 mg PEG BID [facility] Last Admin: 10/24/19 09:44 Dose: 5 mg Diltiazem HCl (Cardizem Injection -) 10 mg IVPUSH Q4H PRN PRN Reason: TACHYCARDIA Ferrous Sulfate (Feosol -) 325 mg PO DAILY [facility] Last Admin: 10/24/19 09:44 Dose: 325 mg Fluticasone Propionate (Flonase -) 1 spray NS DAILY [facility] Last Admin: 10/24/19 09:47 Dose: 1 spray Furosemide (Lasix -) 40 mg PO DAILY [facility] Last Admin: 10/24/19 09:44 Dose: 40 mg Insulin Aspart (Novolog Vial Sliding Scale -) 1 vial SQ ACHS [facility]; Protocol Last Admin: 10/24/19 11:55 Dose: Not Given Latanoprost (Xalatan 0.005% Eye Drops -) 1 drop OD HS [facility] Last Admin: 10/23/19 23:21 Dose: 1 drop Metoprolol Tartrate (Lopressor -) 25 mg NGT BID [facility] Last Admin: 10/24/19 09:44 Dose: 25 mg Pantoprazole Sodium (Protonix -) 20 mg PO DAILY [facility] Last Admin: 10/24/19 09:44 Dose: 20 mg Timolol Maleate (Timoptic 0.5%) 1 drop OU BID [facility] Last Admin: 10/24/19 09:47 Dose: 1 drop Valsartan (Diovan -) 40 mg NGT DAILY [facility] Last Admin: 10/24/19 09:44 Dose: 40 mg A/P s/p Incisional Hernia Repair with mesh/SB resection s/p Acute Respiratory Failure Atrial Fibrillation HTN DM Hyperthyroidism h/o Colon Ca h/o Cervical Ca - IVF bolus - pain control - rate control - continue anticoagulation - PO per surgery
[2019-10-24] MEDS ORDERED: SODIUM CHLORIDE 500 ML IV STA (13:43)
--- NOTE | 2019-10-24 15:24 | PN ---
Progress Note, Physician History of Present Illness: Hemodynamics stable with rate-controlled afib. Tolerating diet, resolved incisional pain, reports positional dizziness. - Current Medication List Current Medications: Active Medications Acetaminophen (Tylenol -) 650 mg PO Q6H PRN PRN Reason: FEVER Albuterol Sulfate (Ventolin 0.083% Nebulizer Soln -) 1 amp NEB Q6H PRN PRN Reason: SHORT OF BREATH/WHEEZING Last Admin: 10/24/19 06:32 Dose: 1 amp Apixaban (Eliquis -) 5 mg PEG BID [facility] Last Admin: 10/24/19 09:44 Dose: 5 mg Diltiazem HCl (Cardizem Injection -) 10 mg IVPUSH Q4H PRN PRN Reason: TACHYCARDIA Ferrous Sulfate (Feosol -) 325 mg PO DAILY [facility] Last Admin: 10/24/19 09:44 Dose: 325 mg Fluticasone Propionate (Flonase -) 1 spray NS DAILY [facility] Last Admin: 10/24/19 09:47 Dose: 1 spray Furosemide (Lasix -) 40 mg PO DAILY [facility] Last Admin: 10/24/19 09:44 Dose: 40 mg Insulin Aspart (Novolog Vial Sliding Scale -) 1 vial SQ ACHS [facility]; Protocol Last Admin: 10/24/19 11:55 Dose: Not Given Latanoprost (Xalatan 0.005% Eye Drops -) 1 drop OD HS [facility] Last Admin: 10/23/19 23:21 Dose: 1 drop Metoprolol Tartrate (Lopressor -) 25 mg NGT BID [facility] Last Admin: 10/24/19 09:44 Dose: 25 mg Pantoprazole Sodium (Protonix -) 20 mg PO DAILY [facility] Last Admin: 10/24/19 09:44 Dose: 20 mg Timolol Maleate (Timoptic 0.5%) 1 drop OU BID [facility] Last Admin: 10/24/19 09:47 Dose: 1 drop Valsartan (Diovan -) 40 mg NGT DAILY [facility] Last Admin: 10/24/19 09:44 Dose: 40 mg - Objective Vital Signs: Vital Signs Temperature 100 F H 10/24/19 14:00 Pulse Rate 64 10/24/19 14:00 Respiratory Rate 20 10/24/19 14:00 Blood Pressure 92/55 L 10/24/19 14:00 O2 Sat by Pulse Oximetry (%) 98 10/24/19 09:00 Constitutional: Yes: No Distress, Calm Neck: Yes: Supple Cardiovascular: Yes: Pulse Irregular Respiratory: Yes: Regular, CTA Bilaterally, On Nasal O2 Gastrointestinal: Yes: Normal Bowel Sounds, Soft, Abdomen, Obese Edema: No Labs: CBC, BMP 10/24/19 05:25 10/24/19 05:25 INR, PTT INR 1.19 (0.83-1.09) H 10/16/19 06:05 - ....Imaging Chest X-ray: Report Reviewed (NAD) EKG: Report Reviewed (Tele: Rate-controlled afib) Assessment/Plan 10/12/2019 Echo: Normal LV size and fxn LVEF 55-60%, mild LAE, mild MR, TR, AR Problem List - Problems (1) Afib Code(s): I48.91 - UNSPECIFIED ATRIAL FIBRILLATION Qualifiers: Atrial fibrillation type: chronic (2) Anemia Code(s): D64.9 - ANEMIA, UNSPECIFIED (3) Glaucoma Code(s): H40.9 - UNSPECIFIED GLAUCOMA (4) Hyperthyroidism Code(s): E05.90 - THYROTOXICOSIS, UNSP WITHOUT THYROTOXIC CRISIS OR STORM (5) New onset atrial fibrillation Code(s): I48.91 - UNSPECIFIED ATRIAL FIBRILLATION (6) S/P left hemicolectomy Code(s): Z90.49 - ACQUIRED ABSENCE OF OTHER SPECIFIED PARTS OF DIGESTIVE TRACT (7) Acute on chronic diastolic (congestive) heart failure Code(s): I50.33 - ACUTE ON CHRONIC DIASTOLIC (CONGESTIVE) HEART FAILURE (8) Asthma Code(s): J45.909 - UNSPECIFIED ASTHMA, UNCOMPLICATED Qualifiers: Asthma severity: mild Asthma persistence: intermittent Asthma complication type: unspecified Qualified Code(s): J45.20 - Mild intermittent asthma, uncomplicated (9) CAD (coronary artery disease) Code(s): I25.10 - ATHSCL HEART DISEASE OF [place] CORONARY ARTERY W/O ANG PCTRS Qualifiers: Coronary Disease-Associated Artery/Lesion type: [place] artery [place] vs. transplanted heart: [place] heart Associated angina: without angina Qualified Code(s): I25.10 - Atherosclerotic heart disease of [place] coronary artery without angina pectoris (10) HTN (hypertension) Code(s): I10 - ESSENTIAL (PRIMARY) HYPERTENSION Qualifiers: Hypertension type: essential hypertension Qualified Code(s): I10 - Essential (primary) hypertension (11) Parkinson disease Code(s): G20 - PARKINSON'S DISEASE Assessment/Plan 1. s/p acute respiratory failure, currently stable 2. Post abdominal hernia repair complicated by small bowel resection and mesh placement 3. Persistent atrial Fibrillation [id number] score of 5 4. Diastolic LV dysfunction with clinical class 0 NYHA classification LV failure , generalized edema 5. HTN 6. DM 7. Hyperthyroidism 8. Acute renal insufficiency 9. Hematuria, resolved 10. History of cervical carcinoma post resection 11. History of colon carcinoma post javi-colectomy PLAN: 1. Resumed diet per S&S, drain management 2. IV Cardizem as needed for rate control 3. Lopressor 25 bid and Diovan 40 qd, Lasix 40 qd 4. Eliquis 5 bid given resolved hematuria 5. Completed empiric antibiotic course, BD, O2 as needed
--- NOTE | 2019-10-24 15:50 | PN ---
Progress Note, Physician Chief Complaint: awake alert daughter at bedside; said pt does not have appetite but no other c/o dropped Hg 7.9 borderline low BP - to transfuse 2 U PRBC f/u labs - Current Medication List Current Medications: Active Medications Acetaminophen (Tylenol -) 650 mg PO Q6H PRN PRN Reason: FEVER Albuterol Sulfate (Ventolin 0.083% Nebulizer Soln -) 1 amp NEB Q6H PRN PRN Reason: SHORT OF BREATH/WHEEZING Last Admin: 10/24/19 06:32 Dose: 1 amp Apixaban (Eliquis -) 5 mg PEG BID [facility] Last Admin: 10/24/19 09:44 Dose: 5 mg Diltiazem HCl (Cardizem Injection -) 10 mg IVPUSH Q4H PRN PRN Reason: TACHYCARDIA Ferrous Sulfate (Feosol -) 325 mg PO DAILY [facility] Last Admin: 10/24/19 09:44 Dose: 325 mg Fluticasone Propionate (Flonase -) 1 spray NS DAILY [facility] Last Admin: 10/24/19 09:47 Dose: 1 spray Furosemide (Lasix -) 40 mg PO DAILY [facility] Last Admin: 10/24/19 09:44 Dose: 40 mg Insulin Aspart (Novolog Vial Sliding Scale -) 1 vial SQ ACHS [facility]; Protocol Last Admin: 10/24/19 11:55 Dose: Not Given Latanoprost (Xalatan 0.005% Eye Drops -) 1 drop OD HS [facility] Last Admin: 10/23/19 23:21 Dose: 1 drop Metoprolol Tartrate (Lopressor -) 25 mg NGT BID [facility] Last Admin: 10/24/19 09:44 Dose: 25 mg Pantoprazole Sodium (Protonix -) 20 mg PO DAILY [facility] Last Admin: 10/24/19 09:44 Dose: 20 mg Timolol Maleate (Timoptic 0.5%) 1 drop OU BID [facility] Last Admin: 10/24/19 09:47 Dose: 1 drop Valsartan (Diovan -) 40 mg NGT DAILY [facility] Last Admin: 10/24/19 09:44 Dose: 40 mg - Objective Vital Signs: Vital Signs Temperature 100 F H 10/24/19 14:00 Pulse Rate 64 10/24/19 14:00 Respiratory Rate 20 10/24/19 14:00 Blood Pressure 92/55 L 10/24/19 14:00 O2 Sat by Pulse Oximetry (%) 98 10/24/19 09:00 Constitutional: Yes: No Distress Eyes: Yes: Conjunctiva Clear HENT: Yes: Atraumatic Neck: Yes: Supple Cardiovascular: No: Regular Rate and Rhythm Respiratory: Yes: CTA Bilaterally Gastrointestinal: Yes: Soft. No: Tenderness Genitourinary: No: Hematuria Musculoskeletal: No: Joint Stiffness, Joint Swelling Extremities: No: Cold, Cool Edema: No Integumentary: No: Rash, Venous Stasis Changes Neurological: Yes: Alert ...Motor Strength: WNL Psychiatric: Yes: Alert. No: Agitated Labs: CBC, BMP 10/24/19 05:25 10/24/19 05:25 INR, PTT INR 1.19 (0.83-1.09) H 10/16/19 06:05 - ....Imaging Other: Report Reviewed Assessment/Plan 83 yo F h/of Colon Ca (s/p Hemicolectomy, 02/2019), HTN, HLD, Afib ( on Eliquis) , Diastolic CHF, HLD, Hyperthyroidism s/p hernia repair, adhesions, s/p incidental enterotomy and partial small bowel resection / reanastomosis and mesh placement; improving; surgery f/u no bleeding po eliquis, encouraged to eat more Hg 7.9 transfuse 2 U PRBC f/u labs cough better; CXR negative; incentive spirometry; HOB cardiology f/u; BP stable on BP meds; prerenal azotemia - renal f/u DVT PFX, decubs, aspiration PFX; f/u labs; I/O Graham; incentive spirometry, bedside PT; will need SNF d.w staff d/w pt and pt's daughter
[2019-10-24] MEDS: ACETAMINOPHEN 325 MG TABLET (FP) PO PRN (20:51)
[2019-10-24] MEDS: LATANOPROST 0.005% OPHTH SOLN 2.5ML BOTTLE OD SCH (22:52)
[2019-10-25 06:21] LABS: BASO % 0.1 % (0-2.0); EOS % 1.1 % (0-4.5); HEMATOCRIT 32.9 % (32.4-45.2); HEMOGLOBIN 10.9 GM/dL (10.7-15.3); LYMPH % 11.7 % (8-40); MCH 28.3 pg (25.7-33.7); MEAN CELL VOLUME 85.7 fl (80-96); MEAN PLT VOLUME 7.6 fl (7.5-11.1); MONO % 5.9 % (3.8-10.2); NEUT % 81.2 % (42.8-82.8); PLATELET COUNT 187 K/MM3 (134-434); RBC 3.84 M/mm3 (3.60-5.2); RDW 15.7 % (11.6-15.6); WHITE BLOOD COUNT 11.7 K/mm3 (4.0-10.0)
[2019-10-25 06:34] LABS: ALBUMIN 2.2 g/dl (3.4-5.0); BILIRUBIN,TOTAL 1.1 mg/dL (0.2-1); BLOOD UREA NITROGEN 12.1 mg/dL (7-18); CALCIUM 7.7 mg/dL (8.5-10.1); CREATININE 0.6 mg/dL (0.55-1.3); POTASSIUM 4.1 mmol/L (3.5-5.1); TOT PROT 4.9 g/dl (6.4-8.2)
[2019-10-25] MEDS: INSULIN SLIDING SCALE (NOVOLOG) 1 VIAL SQ SCH ×4 (06:47→22:41)
--- NOTE | 2019-10-25 08:08 | PN ---
Progress Note, Physician Chief Complaint: awake alert no new c/o; Hg > 10 after PRBC abd drain DC d had low grade temp 100-100.2 cultures sent less cough; L dorsal hand small hematoma after local IV no pain no rash - will ask ID and hand surgery to see pt - Current Medication List Current Medications: Active Medications Acetaminophen (Tylenol -) 650 mg PO Q6H PRN PRN Reason: FEVER Last Admin: 10/24/19 20:51 Dose: 650 mg Albuterol Sulfate (Ventolin 0.083% Nebulizer Soln -) 1 amp NEB Q6H PRN PRN Reason: SHORT OF BREATH/WHEEZING Last Admin: 10/24/19 06:32 Dose: 1 amp Apixaban (Eliquis -) 5 mg PEG BID [facility] Last Admin: 10/24/19 22:02 Dose: 5 mg Diltiazem HCl (Cardizem Injection -) 10 mg IVPUSH Q4H PRN PRN Reason: TACHYCARDIA Ferrous Sulfate (Feosol -) 325 mg PO DAILY [facility] Last Admin: 10/24/19 09:44 Dose: 325 mg Fluticasone Propionate (Flonase -) 1 spray NS DAILY [facility] Last Admin: 10/24/19 09:47 Dose: 1 spray Furosemide (Lasix -) 20 mg PO DAILY [facility] Insulin Aspart (Novolog Vial Sliding Scale -) 1 vial SQ ACHS [facility]; Protocol Last Admin: 10/25/19 06:47 Dose: Not Given Latanoprost (Xalatan 0.005% Eye Drops -) 1 drop OD HS [facility] Last Admin: 10/24/19 22:52 Dose: 1 drop Metoprolol Tartrate (Lopressor -) 25 mg NGT BID [facility] Last Admin: 10/24/19 22:01 Dose: Not Given Pantoprazole Sodium (Protonix -) 20 mg PO DAILY [facility] Last Admin: 10/24/19 09:44 Dose: 20 mg Timolol Maleate (Timoptic 0.5%) 1 drop OU BID [facility] Last Admin: 10/24/19 22:51 Dose: 1 drop Valsartan (Diovan -) 40 mg NGT DAILY [facility] Last Admin: 10/24/19 09:44 Dose: 40 mg - Objective Vital Signs: Vital Signs Temperature 98.9 F 10/25/19 06:00 Pulse Rate 57 L 12/05/19 06:00 Respiratory Rate 16 10/25/19 06:00 Blood Pressure 125/65 10/25/19 06:00 O2 Sat by Pulse Oximetry (%) 98 10/24/19 21:00 Constitutional: Yes: No Distress, Calm Eyes: Yes: Conjunctiva Clear HENT: Yes: Atraumatic Neck: Yes: Supple Cardiovascular: No: Regular Rate and Rhythm Respiratory: Yes: Diminished Labs: CBC, BMP 10/25/19 05:25 10/25/19 05:25 INR, PTT INR 1.19 (0.83-1.09) H 10/16/19 06:05 Assessment/Plan 83 yo F h/of Colon Ca (s/p Hemicolectomy, 02/2019), HTN, HLD, Afib ( on Eliquis) , Diastolic CHF, HLD, Hyperthyroidism s/p hernia repair, adhesions, s/p incidental enterotomy and partial small bowel resection / reanastomosis and mesh placement; surgery f/u po eliquis L hand small hematoma, low grader fever - ID and hand sx eval; cultures sent encouraged to eat more anemia s/p transfused 2 U PRBC f/u labs cough better; CXR negative; incentive spirometry; HOB cardiology f/u; BP stable on BP meds; prerenal azotemia - renal f/u DVT PFX, decubs, aspiration PFX; f/u labs; I/O Graham; incentive spirometry, bedside PT; will need SNF d.w staff d/w pt and pt's daughter
[2019-10-25] MEDS: METOPROLOL TARTRATE 25 MG TABLET (FP) NGT SCH ×2 (10:30→22:34)
[2019-10-25] MEDS: APIXABAN 5 MG TABLET PEG SCH ×2 (10:30→22:19)
[2019-10-25] MEDS: VALSARTAN 40 MG TABLET (FP) NGT SCH (10:30)
[2019-10-25] MEDS: FLUTICASONE PROP 0.05% 16 GM NASAL SPRAY NS SCH (10:35)
[2019-10-25] MEDS: TIMOLOL 0.5% OPHTHALMIC SOL 5 ML BOTTLE OU SCH ×2 (10:36→22:24)
[2019-10-25] MEDS: PANTOPRAZOLE 20 MG TABLET (FP) PO SCH (12:02)
[2019-10-25] MEDS: FUROSEMIDE 20 MG TABLET (FP) PO SCH (12:02)
[2019-10-25] MEDS: FERROUS SO4 325 MG TABLET (FP) PO SCH (12:02)
--- NOTE | 2019-10-25 13:00 | PN ---
Progress Note (short form) - Note Progress Note: Resting in NAD. Feels weak. Some intermittent dry cough. No acute events overnight. Intake & Output 10/22/19 10/23/19 10/24/19 10/25/19 23:59 23:59 23:59 23:59 Intake Total 240 120 840 800 Output Total 8 0 20 Balance 232 120 820 800 Last Vital Signs Temp Pulse Resp BP Pulse Ox 97.8 F 68 18 100/61 98 10/25/19 08:00 10/25/19 12:00 10/25/19 12:00 10/25/19 12:00 10/24/19 21:00 Active Medications Acetaminophen (Tylenol -) 650 mg PO Q6H PRN PRN Reason: FEVER Last Admin: 10/24/19 20:51 Dose: 650 mg Albuterol Sulfate (Ventolin 0.083% Nebulizer Soln -) 1 amp NEB Q6H PRN PRN Reason: SHORT OF BREATH/WHEEZING Last Admin: 10/24/19 06:32 Dose: 1 amp Apixaban (Eliquis -) 5 mg PEG BID [facility] Last Admin: 10/25/19 10:30 Dose: 5 mg Diltiazem HCl (Cardizem Injection -) 10 mg IVPUSH Q4H PRN PRN Reason: TACHYCARDIA Ferrous Sulfate (Feosol -) 325 mg PO DAILY [facility] Last Admin: 10/25/19 12:02 Dose: 325 mg Fluticasone Propionate (Flonase -) 1 spray NS DAILY [facility] Last Admin: 10/25/19 10:35 Dose: 1 spray Furosemide (Lasix -) 20 mg PO DAILY [facility] Last Admin: 10/25/19 12:02 Dose: 20 mg Insulin Aspart (Novolog Vial Sliding Scale -) 1 vial SQ ACHS [facility]; Protocol Last Admin: 10/25/19 12:26 Dose: Not Given Latanoprost (Xalatan 0.005% Eye Drops -) 1 drop OD HS [facility] Last Admin: 10/24/19 22:52 Dose: 1 drop Metoprolol Tartrate (Lopressor -) 25 mg NGT BID [facility] Last Admin: 10/25/19 10:30 Dose: 25 mg Pantoprazole Sodium (Protonix -) 20 mg PO DAILY [facility] Last Admin: 10/25/19 12:02 Dose: 20 mg Timolol Maleate (Timoptic 0.5%) 1 drop OU BID [facility] Last Admin: 10/25/19 10:36 Dose: 1 drop Valsartan (Diovan -) 40 mg NGT DAILY [facility] Last Admin: 10/25/19 10:30 Dose: 40 mg Constitutional: Yes: No Distress Neck: Yes: Supple Cardiovascular: Yes: Pulse Irregular Respiratory: Yes: few scattered rhonchi, no wheeze Gastrointestinal: Yes: Normal Bowel Sounds, Soft Edema: No Labs: Problem List (1) Afib Code(s): I48.91 - UNSPECIFIED ATRIAL FIBRILLATION Qualifiers: Atrial fibrillation type: chronic (2) Anemia Code(s): D64.9 - ANEMIA, UNSPECIFIED (3) Glaucoma Code(s): H40.9 - UNSPECIFIED GLAUCOMA (4) Hyperthyroidism Code(s): E05.90 - THYROTOXICOSIS, UNSP WITHOUT THYROTOXIC CRISIS OR STORM (5) New onset atrial fibrillation Code(s): I48.91 - UNSPECIFIED ATRIAL FIBRILLATION (6) S/P left hemicolectomy Code(s): Z90.49 - ACQUIRED ABSENCE OF OTHER SPECIFIED PARTS OF DIGESTIVE TRACT (7) Acute on chronic diastolic (congestive) heart failure Code(s): I50.33 - ACUTE ON CHRONIC DIASTOLIC (CONGESTIVE) HEART FAILURE (8) Asthma Code(s): J45.909 - UNSPECIFIED ASTHMA, UNCOMPLICATED Qualifiers: Asthma severity: mild Asthma persistence: intermittent Asthma complication type: unspecified Qualified Code(s): J45.20 - Mild intermittent asthma, uncomplicated (9) CAD (coronary artery disease) Code(s): I25.10 - ATHSCL HEART DISEASE OF [place] CORONARY ARTERY W/O ANG PCTRS Qualifiers: Coronary Disease-Associated Artery/Lesion type: [place] artery [place] vs. transplanted heart: [place] heart Associated angina: without angina Qualified Code(s): I25.10 - Atherosclerotic heart disease of [place] coronary artery without angina pectoris (10) HTN (hypertension) Code(s): I10 - ESSENTIAL (PRIMARY) HYPERTENSION Qualifiers: Hypertension type: essential hypertension Qualified Code(s): I10 - Essential (primary) hypertension (11) Parkinson disease Code(s): G20 - PARKINSON'S DISEASE Assessment/Plan Encourage Incentive Spirometry O2 as needed to maintain saturation PO as tolerated Completed ABX course BD TX PRN OOB to chair / PT as tolerated Aspiration precautions Dr Paez
--- NOTE | 2019-10-25 13:40 | PN ---
Progress Note, Physician History of Present Illness: Hemodynamics stable with rate-controlled afib. Tolerating diet, resolved incisional pain, reports positional dizziness. - Current Medication List Current Medications: Active Medications Acetaminophen (Tylenol -) 650 mg PO Q6H PRN PRN Reason: FEVER Last Admin: 10/24/19 20:51 Dose: 650 mg Albuterol Sulfate (Ventolin 0.083% Nebulizer Soln -) 1 amp NEB Q6H PRN PRN Reason: SHORT OF BREATH/WHEEZING Last Admin: 10/24/19 06:32 Dose: 1 amp Apixaban (Eliquis -) 5 mg PEG BID [facility] Last Admin: 10/25/19 10:30 Dose: 5 mg Diltiazem HCl (Cardizem Injection -) 10 mg IVPUSH Q4H PRN PRN Reason: TACHYCARDIA Ferrous Sulfate (Feosol -) 325 mg PO DAILY [facility] Last Admin: 10/25/19 12:02 Dose: 325 mg Fluticasone Propionate (Flonase -) 1 spray NS DAILY [facility] Last Admin: 10/25/19 10:35 Dose: 1 spray Furosemide (Lasix -) 20 mg PO DAILY [facility] Last Admin: 10/25/19 12:02 Dose: 20 mg Insulin Aspart (Novolog Vial Sliding Scale -) 1 vial SQ ACHS [facility]; Protocol Last Admin: 10/25/19 12:26 Dose: Not Given Latanoprost (Xalatan 0.005% Eye Drops -) 1 drop OD HS [facility] Last Admin: 10/24/19 22:52 Dose: 1 drop Metoprolol Tartrate (Lopressor -) 25 mg NGT BID [facility] Last Admin: 10/25/19 10:30 Dose: 25 mg Pantoprazole Sodium (Protonix -) 20 mg PO DAILY [facility] Last Admin: 10/25/19 12:02 Dose: 20 mg Timolol Maleate (Timoptic 0.5%) 1 drop OU BID [facility] Last Admin: 10/25/19 10:36 Dose: 1 drop Valsartan (Diovan -) 40 mg NGT DAILY [facility] Last Admin: 10/25/19 10:30 Dose: 40 mg - Objective Vital Signs: Vital Signs Temperature 98.4 F 10/25/19 13:12 Pulse Rate 66 10/25/19 13:12 Respiratory Rate 18 10/25/19 13:12 Blood Pressure 100/61 10/25/19 12:00 O2 Sat by Pulse Oximetry (%) 98 10/24/19 21:00 Constitutional: Yes: No Distress, Calm Neck: Yes: Supple Cardiovascular: Yes: Pulse Irregular Respiratory: Yes: Regular, Diminished Gastrointestinal: Yes: Normal Bowel Sounds, Soft, Abdomen, Obese Edema: No Labs: CBC, BMP 10/25/19 05:25 10/25/19 05:25 INR, PTT INR 1.19 (0.83-1.09) H 10/16/19 06:05 - ....Imaging EKG: Report Reviewed (Rate-controlled afib) Assessment/Plan 10/12/2019 Echo: Normal LV size and fxn LVEF 55-60%, mild LAE, mild MR, TR, AR Problem List - Problems (1) Afib Code(s): I48.91 - UNSPECIFIED ATRIAL FIBRILLATION Qualifiers: Atrial fibrillation type: chronic (2) Anemia Code(s): D64.9 - ANEMIA, UNSPECIFIED (3) Glaucoma Code(s): H40.9 - UNSPECIFIED GLAUCOMA (4) Hyperthyroidism Code(s): E05.90 - THYROTOXICOSIS, UNSP WITHOUT THYROTOXIC CRISIS OR STORM (5) New onset atrial fibrillation Code(s): I48.91 - UNSPECIFIED ATRIAL FIBRILLATION (6) S/P left hemicolectomy Code(s): Z90.49 - ACQUIRED ABSENCE OF OTHER SPECIFIED PARTS OF DIGESTIVE TRACT (7) Acute on chronic diastolic (congestive) heart failure Code(s): I50.33 - ACUTE ON CHRONIC DIASTOLIC (CONGESTIVE) HEART FAILURE (8) Asthma Code(s): J45.909 - UNSPECIFIED ASTHMA, UNCOMPLICATED Qualifiers: Asthma severity: mild Asthma persistence: intermittent Asthma complication type: unspecified Qualified Code(s): J45.20 - Mild intermittent asthma, uncomplicated (9) CAD (coronary artery disease) Code(s): I25.10 - ATHSCL HEART DISEASE OF [place] CORONARY ARTERY W/O ANG PCTRS Qualifiers: Coronary Disease-Associated Artery/Lesion type: [place] artery [place] vs. transplanted heart: [place] heart Associated angina: without angina Qualified Code(s): I25.10 - Atherosclerotic heart disease of [place] coronary artery without angina pectoris (10) HTN (hypertension) Code(s): I10 - ESSENTIAL (PRIMARY) HYPERTENSION Qualifiers: Hypertension type: essential hypertension Qualified Code(s): I10 - Essential (primary) hypertension (11) Parkinson disease Code(s): G20 - PARKINSON'S DISEASE Assessment/Plan 1. s/p acute respiratory failure, currently stable 2. Post abdominal hernia repair complicated by small bowel resection and mesh placement 3. Persistent atrial Fibrillation [id number] score of 5 4. Diastolic LV dysfunction with clinical class 0 NYHA classification LV failure , generalized edema 5. HTN 6. DM 7. Hyperthyroidism 8. Acute renal insufficiency 9. Hematuria, resolved 10. History of cervical carcinoma post resection 11. History of colon carcinoma post javi-colectomy PLAN: 1. Resumed diet per S&S, drain management 2. IV Cardizem as needed for rate control 3. Lopressor 25 bid and Diovan 40 qd, Lasix 20 qd 4. Eliquis 5 bid given resolved hematuria 5. Completed empiric antibiotic course, BD, O2 as needed
[2019-10-25] MEDS: ONDANSETRON 4 MG/2 ML VIAL IVPUSH PRN (14:11)
[2019-10-25] MEDS: ALBUTEROL SO4 0.083% IH SOL 2.5 MG/3 ML VIAL.NEB. NEB PRN (20:10)
[2019-10-25] MEDS: LATANOPROST 0.005% OPHTH SOLN 2.5ML BOTTLE OD SCH (22:24)
[2019-10-26] MEDS: INSULIN SLIDING SCALE (NOVOLOG) 1 VIAL SQ SCH ×4 (06:32→22:15)
[2019-10-26 07:01] LABS: BASO % 0.3 % (0-2.0); EOS % 1.2 % (0-4.5); HEMATOCRIT 30.9 % (32.4-45.2); HEMOGLOBIN 10.1 GM/dL (10.7-15.3); MCH 28.2 pg (25.7-33.7); MCHC 32.7 g/dl (32.0-36.0); MEAN CELL VOLUME 86.2 fl (80-96); MEAN PLT VOLUME 7.8 fl (7.5-11.1); NEUT % 80.5 % (42.8-82.8); PLATELET COUNT 180 K/MM3 (134-434); RBC 3.59 M/mm3 (3.60-5.2); RDW 16.3 % (11.6-15.6); WHITE BLOOD COUNT 11.3 K/mm3 (4.0-10.0)
[2019-10-26 07:18] LABS: BLOOD UREA NITROGEN 13.8 mg/dL (7-18); CREATININE 0.7 mg/dL (0.55-1.3); POTASSIUM 3.9 mmol/L (3.5-5.1)
--- NOTE | 2019-10-26 08:35 | PN ---
Progress Note, Physician Chief Complaint: in bed - colvin some dry cough, CXR no change had low grade temp 100.2-100.1 culturees sent ID recalled d ralph 's daughter at bedside - Current Medication List Current Medications: Active Medications Acetaminophen (Tylenol -) 650 mg PO Q6H PRN PRN Reason: FEVER Last Admin: 10/24/19 20:51 Dose: 650 mg Albuterol Sulfate (Ventolin 0.083% Nebulizer Soln -) 1 amp NEB Q6H PRN PRN Reason: SHORT OF BREATH/WHEEZING Last Admin: 10/25/19 20:10 Dose: 1 amp Apixaban (Eliquis -) 5 mg PEG BID [facility] Last Admin: 10/25/19 22:19 Dose: 5 mg Diltiazem HCl (Cardizem Injection -) 10 mg IVPUSH Q4H PRN PRN Reason: TACHYCARDIA Ferrous Sulfate (Feosol -) 325 mg PO DAILY [facility] Last Admin: 10/25/19 12:02 Dose: 325 mg Fluticasone Propionate (Flonase -) 1 spray NS DAILY [facility] Last Admin: 10/25/19 10:35 Dose: 1 spray Furosemide (Lasix -) 20 mg PO DAILY [facility] Last Admin: 10/25/19 12:02 Dose: 20 mg Insulin Aspart (Novolog Vial Sliding Scale -) 1 vial SQ [facility]; Protocol Last Admin: 10/26/19 06:32 Dose: Not Given Latanoprost (Xalatan 0.005% Eye Drops -) 1 drop OD HS [facility] Last Admin: 10/25/19 22:24 Dose: 1 drop Metoprolol Tartrate (Lopressor -) 25 mg NGT BID [facility] Last Admin: 10/25/19 22:34 Dose: 25 mg Ondansetron HCl (Zofran Injection) 4 mg IVPUSH Q6H PRN PRN Reason: NAUSEA Last Admin: 10/25/19 14:11 Dose: 4 mg Pantoprazole Sodium (Protonix -) 20 mg PO DAILY [facility] Last Admin: 10/25/19 12:02 Dose: 20 mg Timolol Maleate (Timoptic 0.5%) 1 drop OU BID [facility] Last Admin: 10/25/19 22:24 Dose: 1 drop Valsartan (Diovan -) 40 mg NGT DAILY [facility] Last Admin: 10/25/19 10:30 Dose: 40 mg - Objective Vital Signs: Vital Signs Temperature 98 F 10/26/19 08:23 Pulse Rate 54 L 10/26/19 08:23 Respiratory Rate 16 10/26/19 08:23 Blood Pressure 96/84 10/26/19 08:23 O2 Sat by Pulse Oximetry (%) 100 10/25/19 20:00 Constitutional: Yes: No Distress Eyes: Yes: Conjunctiva Clear HENT: Yes: Atraumatic Neck: Yes: Supple Cardiovascular: No: Regular Rate and Rhythm Respiratory: Yes: Diminished Gastrointestinal: Yes: Soft. No: Tenderness Genitourinary: No: Hematuria Musculoskeletal: No: Joint Stiffness, Joint Swelling Extremities: Yes: Other (L hand dorsal hematoma no pain). No: Cold, Cool, Cyanosis Edema: No Integumentary: Yes: Rash. No: Venous Stasis Changes Neurological: Yes: Alert ...Motor Strength: WNL Psychiatric: Yes: Alert. No: Agitated, Suicidal Ideation Labs: CBC, BMP 10/26/19 06:13 10/26/19 06:13 INR, PTT INR 1.19 (0.83-1.09) H 10/16/19 06:05 - ....Imaging Other: Report Reviewed Assessment/Plan 83 yo F h/of Colon Ca (s/p Hemicolectomy, 02/2019), HTN, HLD, Afib ( on Eliquis) , Diastolic CHF, HLD, Hyperthyroidism s/p hernia repair, adhesions, s/p incidental enterotomy and partial small bowel resection / reanastomosis and mesh placement; surgery f/u po eliquis L hand small hematoma, low grader fever - ID and hand sx eval; cultures sent; hand sx eval dr Holt encouraged to eat more anemia s/p transfused 2 U PRBC f/u labs cough better; CXR negative; incentive spirometry; HOB cardiology f/u; BP stable on BP meds; prerenal azotemia - renal f/u DVT PFX, decubs, aspiration PFX; f/u labs; I/O Graham; incentive spirometry, bedside PT; will need SNF d.w staff d/w pt and pt's daughter
[2019-10-26] MEDS ORDERED: PT OWN MED DRAWER 7, Y5N ONE (08:44)
[2019-10-26] MEDS: VALSARTAN 40 MG TABLET (FP) NGT SCH (09:57)
[2019-10-26] MEDS: METOPROLOL TARTRATE 25 MG TABLET (FP) NGT SCH ×2 (09:58→22:15)
[2019-10-26] MEDS: FUROSEMIDE 20 MG TABLET (FP) PO SCH (09:58)
[2019-10-26] MEDS: APIXABAN 5 MG TABLET PEG SCH ×2 (09:58→22:15)
[2019-10-26] MEDS: PANTOPRAZOLE 20 MG TABLET (FP) PO SCH (09:58)
[2019-10-26] MEDS: FERROUS SO4 325 MG TABLET (FP) PO SCH (09:58)
[2019-10-26] MEDS: TIMOLOL 0.5% OPHTHALMIC SOL 5 ML BOTTLE OU SCH ×2 (10:01→22:21)
[2019-10-26] MEDS: FLUTICASONE PROP 0.05% 16 GM NASAL SPRAY NS SCH (10:01)
--- NOTE | 2019-10-26 10:23 | CON.ORTH ---
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 Cardio/Vascular: Yes: AFIB, HTN Pulmonary: Yes: Asthma Gastrointestinal: Yes: Cancer (colon) Endocrine: Yes: Hyperthyroidism Additional Medical History: Glaucoma - Past Surgical History Past Surgical History: Yes: Colectomy, Hysterectomy - Alcohol/Substance Use Hx Alcohol Use: No History of Substance Use: reports: None - Smoking History Smoking history: Never smoked Have you smoked in the past 12 months: No Aproximately how many cigarettes per day: 0 - Social History ADL: Family Assistance History of Recent Travel: No Home Medications - Allergies Allergies/Adverse Reactions: Allergies Allergy/AdvReac Type Severity Reaction Status Date / Time No Known Allergies Allergy Verified 10/05/19 17:29 - Home Medications Home Medications: Ambulatory Orders Bimatoprost [Lumigan] 1 drop OU DAILY 04/09/17 Brimonidine Tartrate/Timolol [Combigan 0.2%-0.5% Eye Drops] 5 ml OU BID Latanoprost 0.005% Eye Drops [Xalatan 0.005% Eye Drops -] 1 drop HS 02/14/19 Methimazole 10 mg PO BID 02/14/19 Apixaban [Eliquis -] 5 mg PO BID tablet 03/02/19 Ascorbic Acid [Vitamin C -] 500 mg PO DAILY tablet 03/02/19 Losartan Potassium [Cozaar -] 25 mg PO DAILY tablet 03/02/19 Metoprolol Tartrate [Lopressor -] 50 mg PO BID tablet 03/02/19 Acetaminophen [Tylenol .Regular Strength -] 650 mg PO Q6H PRN tablet 03/16/19 Timolol 0.5% [Timoptic 0.5%] 1 drop OU BID drops 03/16/19 Nitroglycerin Sublingual [Nitrostat -] 0.4 mg SL Q5M PRN tab 03/20/19 Albuterol 0.083% Nebulizer Kathrin [Ventolin 0.083% Nebulizer Soln -] 1 amp NEB Q6H PRN amp 03/29/19 Meclizine HCl [Antivert -] 25 mg PO TID PRN 5 Days #15 tablet 05/11/19 Alendronate Sodium [Fosamax] 1 tab PO WEEKLY 10/08/19 Calcium (Oyster Shell) [Os-Dioni 500Mg -] 500 mg PO DAILY 10/08/19 Ertapenem Sodium [Invanz] 1 gm IJ DAILY 10/08/19 Fluticasone Prop 0.05% Nasal [Flonase -] 1 - 2 spray NS DAILY 10/08/19 Mirabegron [Myrbetriq] 50 mg PO DAILY 10/08/19 Physical Exam for Ortho Vital Signs: Vital Signs Temperature 98 F 10/26/19 08:23 Pulse Rate 54 L 10/26/19 08:23 Respiratory Rate 16 10/26/19 08:23 Blood Pressure 96/84 10/26/19 08:23 O2 Sat by Pulse Oximetry (%) 100 10/25/19 20:00 Labs: CBC, BMP 10/26/19 06:13 10/26/19 06:13 INR, PTT INR 1.19 (0.83-1.09) H 10/16/19 06:05 - Upper Extremity Hand: Yes: Left, Ecchymosis, Hematoma, Other (lacks about 5 degrees of flexion, nvi) Assessment/Plan 83 yo F h/ of Colon Ca (s/p Hemicolectomy, 02/2019), HTN, HLD, Afib (on Eliquis) , Diastolic CHF, HLD, Hyperthyroidism s/p open complicated elective incisional hernia repair, adhesions, incidental enterotomy s/p partial enterectomy / reanastomosis and mesh placement in ICU. Pt developed hematoma in left hand after IV stick. Pt on eliquis. a/p- left hand hematoma No surgical intervention needed warm soaks ROM exercises re-consult prn d/w Dr. Palencia
--- NOTE | 2019-10-26 11:25 | PN ---
Progress Note, Physician History of Present Illness: Hemodynamics stable with rate-controlled afib. Tolerating diet, resolved incisional pain, reports positional dizziness. Developed left hand hematoma post IV stick. - Current Medication List Current Medications: Active Medications Acetaminophen (Tylenol -) 650 mg PO Q6H PRN PRN Reason: FEVER Last Admin: 10/24/19 20:51 Dose: 650 mg Albuterol Sulfate (Ventolin 0.083% Nebulizer Soln -) 1 amp NEB Q6H PRN PRN Reason: SHORT OF BREATH/WHEEZING Last Admin: 10/25/19 20:10 Dose: 1 amp Apixaban (Eliquis -) 5 mg PEG BID [facility] Last Admin: 10/26/19 09:58 Dose: 5 mg Diltiazem HCl (Cardizem Injection -) 10 mg IVPUSH Q4H PRN PRN Reason: TACHYCARDIA Ferrous Sulfate (Feosol -) 325 mg PO DAILY [facility] Last Admin: 10/26/19 09:58 Dose: 325 mg Fluticasone Propionate (Flonase -) 1 spray NS DAILY [facility] Last Admin: 10/26/19 10:01 Dose: 1 spray Furosemide (Lasix -) 20 mg PO DAILY [facility] Last Admin: 10/26/19 09:58 Dose: 20 mg Insulin Aspart (Novolog Vial Sliding Scale -) 1 vial SQ ACHS [facility]; Protocol Last Admin: 10/26/19 10:45 Dose: Not Given Latanoprost (Xalatan 0.005% Eye Drops -) 1 drop OD HS [facility] Last Admin: 10/25/19 22:24 Dose: 1 drop Metoprolol Tartrate (Lopressor -) 25 mg NGT BID [facility] Last Admin: 10/26/19 09:58 Dose: 25 mg Ondansetron HCl (Zofran Injection) 4 mg IVPUSH Q6H PRN PRN Reason: NAUSEA Last Admin: 10/25/19 14:11 Dose: 4 mg Pantoprazole Sodium (Protonix -) 20 mg PO DAILY [facility] Last Admin: 10/26/19 09:58 Dose: 20 mg Timolol Maleate (Timoptic 0.5%) 1 drop OU BID [facility] Last Admin: 10/26/19 10:01 Dose: 1 drop Valsartan (Diovan -) 40 mg NGT DAILY [facility] Last Admin: 10/26/19 09:57 Dose: Not Given - Objective Vital Signs: Vital Signs Temperature 98 F 10/26/19 08:23 Pulse Rate 54 L 10/26/19 08:23 Respiratory Rate 16 10/26/19 08:23 Blood Pressure 96/84 10/26/19 08:23 O2 Sat by Pulse Oximetry (%) 100 10/25/19 20:00 Constitutional: Yes: No Distress, Calm Neck: Yes: Supple Cardiovascular: Yes: Pulse Irregular Respiratory: Yes: Regular, Diminished, On Nasal O2 Gastrointestinal: Yes: Normal Bowel Sounds, Soft Edema: No Labs: CBC, BMP 10/26/19 06:13 10/26/19 06:13 INR, PTT INR 1.19 (0.83-1.09) H 10/16/19 06:05 - ....Imaging EKG: Report Reviewed (Tele: Rate-controlled afib) Assessment/Plan 10/12/2019 Echo: Normal LV size and fxn LVEF 55-60%, mild LAE, mild MR, TR, AR Problem List - Problems (1) Afib Code(s): I48.91 - UNSPECIFIED ATRIAL FIBRILLATION Qualifiers: Atrial fibrillation type: chronic (2) Anemia Code(s): D64.9 - ANEMIA, UNSPECIFIED (3) Glaucoma Code(s): H40.9 - UNSPECIFIED GLAUCOMA (4) Hyperthyroidism Code(s): E05.90 - THYROTOXICOSIS, UNSP WITHOUT THYROTOXIC CRISIS OR STORM (5) New onset atrial fibrillation Code(s): I48.91 - UNSPECIFIED ATRIAL FIBRILLATION (6) S/P left hemicolectomy Code(s): Z90.49 - ACQUIRED ABSENCE OF OTHER SPECIFIED PARTS OF DIGESTIVE TRACT (7) Acute on chronic diastolic (congestive) heart failure Code(s): I50.33 - ACUTE ON CHRONIC DIASTOLIC (CONGESTIVE) HEART FAILURE (8) Asthma Code(s): J45.909 - UNSPECIFIED ASTHMA, UNCOMPLICATED Qualifiers: Asthma severity: mild Asthma persistence: intermittent Asthma complication type: unspecified Qualified Code(s): J45.20 - Mild intermittent asthma, uncomplicated (9) CAD (coronary artery disease) Code(s): I25.10 - ATHSCL HEART DISEASE OF [place] CORONARY ARTERY W/O ANG PCTRS Qualifiers: Coronary Disease-Associated Artery/Lesion type: [place] artery [place] vs. transplanted heart: [place] heart Associated angina: without angina Qualified Code(s): I25.10 - Atherosclerotic heart disease of [place] coronary artery without angina pectoris (10) HTN (hypertension) Code(s): I10 - ESSENTIAL (PRIMARY) HYPERTENSION Qualifiers: Hypertension type: essential hypertension Qualified Code(s): I10 - Essential (primary) hypertension (11) Parkinson disease Code(s): G20 - PARKINSON'S DISEASE Assessment/Plan 1. s/p acute respiratory failure, currently stable 2. Post abdominal hernia repair complicated by small bowel resection and mesh placement 3. Persistent atrial Fibrillation [id number] score of 5 4. Diastolic LV dysfunction with clinical class 0 NYHA classification LV failure , generalized edema 5. HTN 6. DM 7. Hyperthyroidism 8. Acute renal insufficiency 9. Hematuria, resolved 10. History of cervical carcinoma post resection 11. History of colon carcinoma post javi-colectomy 12. Left hand hematoma PLAN: 1. IV Cardizem as needed for rate control 2. Lopressor 25 bid and Diovan 40 qd, Lasix 20 qd 3. Eliquis 5 bid given resolved hematuria 4. Completed empiric antibiotic course, BD, O2 as needed 5. Conservative management of left hand hematoma 6. PT->SNF
--- NOTE | 2019-10-26 11:37 | PN ---
Progress Note (short form) - Note Progress Note: Resting in NAD. Low grade temps noted with left hand hematoma from IV access. No acute events overnight. Intake & Output 10/23/19 10/24/19 10/25/19 10/26/19 23:59 23:59 23:59 23:59 Intake Total 120 840 800 100 Output Total 0 20 Balance 120 820 800 100 Last Vital Signs Temp Pulse Resp BP Pulse Ox 98 F 54 L 16 92/46 L 100 10/26/19 11:30 10/26/19 11:30 10/26/19 11:30 10/26/19 11:30 10/25/19 20:00 Active Medications Acetaminophen (Tylenol -) 650 mg PO Q6H PRN PRN Reason: FEVER Last Admin: 10/24/19 20:51 Dose: 650 mg Albuterol Sulfate (Ventolin 0.083% Nebulizer Soln -) 1 amp NEB Q6H PRN PRN Reason: SHORT OF BREATH/WHEEZING Last Admin: 10/25/19 20:10 Dose: 1 amp Apixaban (Eliquis -) 5 mg PEG BID [facility] Last Admin: 10/26/19 09:58 Dose: 5 mg Diltiazem HCl (Cardizem Injection -) 10 mg IVPUSH Q4H PRN PRN Reason: TACHYCARDIA Ferrous Sulfate (Feosol -) 325 mg PO DAILY [facility] Last Admin: 10/26/19 09:58 Dose: 325 mg Fluticasone Propionate (Flonase -) 1 spray NS DAILY [facility] Last Admin: 10/26/19 10:01 Dose: 1 spray Furosemide (Lasix -) 20 mg PO DAILY [facility] Last Admin: 10/26/19 09:58 Dose: 20 mg Insulin Aspart (Novolog Vial Sliding Scale -) 1 vial SQ ACHS [facility]; Protocol Last Admin: 10/26/19 10:45 Dose: Not Given Latanoprost (Xalatan 0.005% Eye Drops -) 1 drop OD HS [facility] Last Admin: 10/25/19 22:24 Dose: 1 drop Metoprolol Tartrate (Lopressor -) 25 mg NGT BID [facility] Last Admin: 10/26/19 09:58 Dose: 25 mg Ondansetron HCl (Zofran Injection) 4 mg IVPUSH Q6H PRN PRN Reason: NAUSEA Last Admin: 10/25/19 14:11 Dose: 4 mg Pantoprazole Sodium (Protonix -) 20 mg PO DAILY [facility] Last Admin: 10/26/19 09:58 Dose: 20 mg Timolol Maleate (Timoptic 0.5%) 1 drop OU BID [facility] Last Admin: 10/26/19 10:01 Dose: 1 drop Valsartan (Diovan -) 40 mg NGT DAILY [facility] Last Admin: 10/26/19 09:57 Dose: Not Given Constitutional: Yes: No Distress Neck: Yes: Supple Cardiovascular: Yes: Pulse Irregular Respiratory: Yes: few scattered rhonchi, no wheeze Gastrointestinal: Yes: Normal Bowel Sounds, Soft Edema: No Labs: Laboratory Results - last 24 hr 10/25/19 10/25/19 10/25/19 12:24 16:49 22:36 WBC RBC Hgb Hct MCV MCH MCHC RDW Plt Count MPV Absolute Neuts (auto) Neutrophils % Lymphocytes % Monocytes % Eosinophils % Basophils % Nucleated RBC % Sodium Potassium Chloride Carbon Dioxide Anion Gap BUN Creatinine Est GFR (CKD-EPI)AfAm Est GFR (CKD-EPI)NonAf POC Glucometer 111 108 159 Random Glucose Calcium 10/26/19 10/26/19 10/26/19 06:09 06:13 06:13 WBC 11.3 H RBC 3.59 L Hgb 10.1 L Hct 30.9 L MCV 86.2 MCH 28.2 MCHC 32.7 RDW 16.3 H Plt Count 180 MPV 7.8 Absolute Neuts (auto) 9.1 H Neutrophils % 80.5 Lymphocytes % 12.0 Monocytes % 6.0 Eosinophils % 1.2 Basophils % 0.3 Nucleated RBC % 0 Sodium 143 Potassium 3.9 Chloride 108 H Carbon Dioxide 30 Anion Gap 6 L BUN 13.8 Creatinine 0.7 Est GFR (CKD-EPI)AfAm 92.86 Est GFR (CKD-EPI)NonAf 80.12 POC Glucometer 108 Random Glucose 101 Calcium 8.0 L 10/26/19 10:43 WBC RBC Hgb Hct MCV MCH MCHC RDW Plt Count MPV Absolute Neuts (auto) Neutrophils % Lymphocytes % Monocytes % Eosinophils % Basophils % Nucleated RBC % Sodium Potassium Chloride Carbon Dioxide Anion Gap BUN Creatinine Est GFR (CKD-EPI)AfAm Est GFR (CKD-EPI)NonAf POC Glucometer 99 Random Glucose Calcium Problem List (1) Afib Code(s): I48.91 - UNSPECIFIED ATRIAL FIBRILLATION Qualifiers: Atrial fibrillation type: chronic (2) Anemia Code(s): D64.9 - ANEMIA, UNSPECIFIED (3) Glaucoma Code(s): H40.9 - UNSPECIFIED GLAUCOMA (4) Hyperthyroidism Code(s): E05.90 - THYROTOXICOSIS, UNSP WITHOUT THYROTOXIC CRISIS OR STORM (5) New onset atrial fibrillation Code(s): I48.91 - UNSPECIFIED ATRIAL FIBRILLATION (6) S/P left hemicolectomy Code(s): Z90.49 - ACQUIRED ABSENCE OF OTHER SPECIFIED PARTS OF DIGESTIVE TRACT (7) Acute on chronic diastolic (congestive) heart failure Code(s): I50.33 - ACUTE ON CHRONIC DIASTOLIC (CONGESTIVE) HEART FAILURE (8) Asthma Code(s): J45.909 - UNSPECIFIED ASTHMA, UNCOMPLICATED Qualifiers: Asthma severity: mild Asthma persistence: intermittent Asthma complication type: unspecified Qualified Code(s): J45.20 - Mild intermittent asthma, uncomplicated (9) CAD (coronary artery disease) Code(s): I25.10 - ATHSCL HEART DISEASE OF [place] CORONARY ARTERY W/O ANG PCTRS Qualifiers: Coronary Disease-Associated Artery/Lesion type: [place] artery [place] vs. transplanted heart: [place] heart Associated angina: without angina Qualified Code(s): I25.10 - Atherosclerotic heart disease of [place] coronary artery without angina pectoris (10) HTN (hypertension) Code(s): I10 - ESSENTIAL (PRIMARY) HYPERTENSION Qualifiers: Hypertension type: essential hypertension Qualified Code(s): I10 - Essential (primary) hypertension (11) Parkinson disease Code(s): G20 - PARKINSON'S DISEASE Assessment/Plan Encourage Incentive Spirometry O2 as needed to maintain saturation PO as tolerated Completed ABX course BD TX PRN OOB to chair / PT as tolerated Aspiration precautions Ortho evaluation called Dr Paez
--- NOTE | 2019-10-26 17:27 | PN ---
Progress Note, Physician History of Present Illness: LOW GRADE TEMPS, MILD LEUKOCYTOSIS NOTED OOB IN CHAIR NO COMPLAINTS DENIES DYSURIA NO ACUTE DISTRESS BC PRELIM NO GROWTH - Current Medication List Current Medications: Active Medications Acetaminophen (Tylenol -) 650 mg PO Q6H PRN PRN Reason: FEVER Last Admin: 10/24/19 20:51 Dose: 650 mg Albuterol Sulfate (Ventolin 0.083% Nebulizer Soln -) 1 amp NEB Q6H PRN PRN Reason: SHORT OF BREATH/WHEEZING Last Admin: 10/25/19 20:10 Dose: 1 amp Apixaban (Eliquis -) 5 mg PEG BID [facility] Last Admin: 10/26/19 09:58 Dose: 5 mg Diltiazem HCl (Cardizem Injection -) 10 mg IVPUSH Q4H PRN PRN Reason: TACHYCARDIA Ferrous Sulfate (Feosol -) 325 mg PO DAILY [facility] Last Admin: 10/26/19 09:58 Dose: 325 mg Fluticasone Propionate (Flonase -) 1 spray NS DAILY [facility] Last Admin: 10/26/19 10:01 Dose: 1 spray Furosemide (Lasix -) 20 mg PO DAILY [facility] Last Admin: 10/26/19 09:58 Dose: 20 mg Insulin Aspart (Novolog Vial Sliding Scale -) 1 vial SQ ACHS [facility]; Protocol Last Admin: 10/26/19 16:46 Dose: Not Given Latanoprost (Xalatan 0.005% Eye Drops -) 1 drop OD HS [facility] Last Admin: 10/25/19 22:24 Dose: 1 drop Metoprolol Tartrate (Lopressor -) 25 mg NGT BID [facility] Last Admin: 10/26/19 09:58 Dose: 25 mg Ondansetron HCl (Zofran Injection) 4 mg IVPUSH Q6H PRN PRN Reason: NAUSEA Last Admin: 10/25/19 14:11 Dose: 4 mg Pantoprazole Sodium (Protonix -) 20 mg PO DAILY [facility] Last Admin: 10/26/19 09:58 Dose: 20 mg Timolol Maleate (Timoptic 0.5%) 1 drop OU BID [facility] Last Admin: 10/26/19 10:01 Dose: 1 drop Valsartan (Diovan -) 40 mg NGT DAILY [facility] Last Admin: 10/26/19 09:57 Dose: Not Given - Objective Vital Signs: Vital Signs Temperature 99 F 10/26/19 16:50 Pulse Rate 56 L 10/26/19 16:50 Respiratory Rate 16 10/26/19 16:50 Blood Pressure 107/66 10/26/19 16:50 O2 Sat by Pulse Oximetry (%) 100 10/25/19 20:00 Constitutional: Yes: No Distress, Obese Cardiovascular: Yes: Regular Rate and Rhythm, S1, S2 Respiratory: Yes: CTA Bilaterally Gastrointestinal: Yes: Normal Bowel Sounds, Soft, Abdomen, Obese, Other ( SURGICAL WOUND NO ERYTHEMA/DRAINAGE). No: Tenderness Extremities: No: Calf Tenderness Edema: No Labs: CBC, BMP 10/26/19 06:13 10/26/19 06:13 INR, PTT INR 1.19 (0.83-1.09) H 10/16/19 06:05 Assessment/Plan LOW GRADE TEMPS, LEUKOCYTOSIS ASYMPTOMATIC BACTERURIA AWAIT C/S OBSERVE OFF ANTIBIOTICS DISCUSSED WITH DAUGHTER AT BEDSIDE
[2019-10-26] MEDS: LATANOPROST 0.005% OPHTH SOLN 2.5ML BOTTLE OD SCH (22:18)
[2019-10-27] MEDS: INSULIN SLIDING SCALE (NOVOLOG) 1 VIAL SQ SCH ×4 (06:59→21:49)
--- NOTE | 2019-10-27 08:15 | PN ---
Progress Note, Physician Chief Complaint: awake alert no new c/o afebrile consults appreciated had some abd pain earlier but abd soft - Current Medication List Current Medications: Active Medications Acetaminophen (Tylenol -) 650 mg PO Q6H PRN PRN Reason: FEVER Last Admin: 10/24/19 20:51 Dose: 650 mg Albuterol Sulfate (Ventolin 0.083% Nebulizer Soln -) 1 amp NEB Q6H PRN PRN Reason: SHORT OF BREATH/WHEEZING Last Admin: 10/25/19 20:10 Dose: 1 amp Apixaban (Eliquis -) 5 mg PEG BID [facility] Last Admin: 10/26/19 22:15 Dose: 5 mg Diltiazem HCl (Cardizem Injection -) 10 mg IVPUSH Q4H PRN PRN Reason: TACHYCARDIA Ferrous Sulfate (Feosol -) 325 mg PO DAILY [facility] Last Admin: 10/26/19 09:58 Dose: 325 mg Fluticasone Propionate (Flonase -) 1 spray NS DAILY [facility] Last Admin: 10/26/19 10:01 Dose: 1 spray Furosemide (Lasix -) 20 mg PO DAILY [facility] Last Admin: 10/26/19 09:58 Dose: 20 mg Insulin Aspart (Novolog Vial Sliding Scale -) 1 vial SQ ACHS [facility]; Protocol Last Admin: 10/27/19 06:59 Dose: Not Given Latanoprost (Xalatan 0.005% Eye Drops -) 1 drop OD HS [facility] Last Admin: 10/26/19 22:18 Dose: 1 drop Metoprolol Tartrate (Lopressor -) 25 mg NGT BID [facility] Last Admin: 10/26/19 22:15 Dose: 25 mg Ondansetron HCl (Zofran Injection) 4 mg IVPUSH Q6H PRN PRN Reason: NAUSEA Last Admin: 10/25/19 14:11 Dose: 4 mg Pantoprazole Sodium (Protonix -) 20 mg PO DAILY [facility] Last Admin: 10/26/19 09:58 Dose: 20 mg Timolol Maleate (Timoptic 0.5%) 1 drop OU BID [facility] Last Admin: 10/26/19 22:21 Dose: 1 drop Valsartan (Diovan -) 40 mg NGT DAILY [facility] Last Admin: 10/26/19 09:57 Dose: Not Given - Objective Vital Signs: Vital Signs Temperature 98.2 F 10/27/19 02:00 Pulse Rate 54 L 10/27/19 02:00 Respiratory Rate 18 10/27/19 06:00 Blood Pressure 90/51 L 10/27/19 06:00 O2 Sat by Pulse Oximetry (%) 100 10/26/19 21:00 Constitutional: Yes: No Distress, Calm Eyes: Yes: Conjunctiva Clear HENT: Yes: Atraumatic Neck: Yes: Supple Cardiovascular: No: Regular Rate and Rhythm Respiratory: Yes: Diminished Gastrointestinal: Yes: Soft. No: Tenderness Genitourinary: No: Hematuria Extremities: No: Cold, Cool Edema: No Integumentary: No: Rash, Venous Stasis Changes Neurological: Yes: Alert ...Motor Strength: WNL Psychiatric: Yes: Alert. No: Agitated, Suicidal Ideation Labs: CBC, BMP 10/26/19 06:13 10/26/19 06:13 INR, PTT INR 1.19 (0.83-1.09) H 10/16/19 06:05 - ....Imaging Other: Report Reviewed Assessment/Plan 83 yo F h/of Colon Ca (s/p Hemicolectomy, 02/2019), HTN, HLD, Afib ( on Eliquis) , Diastolic CHF, HLD, Hyperthyroidism s/p hernia repair, adhesions, s/p incidental enterotomy and partial small bowel resection / reanastomosis and mesh placement; surgery f/u po eliquis L hand small hematoma, low grader fever - ID no ATB; cultures sent; hand sx eval dr Holt - no drainage needed encouraged to eat more d/w surgery dr Alvarado no need to repeat abdomen CT Now will observe anemia s/p transfused 2 U PRBC f/u labs cough better; CXR negative; incentive spirometry; HOB cardiology f/u; BP stable on BP meds; prerenal azotemia - renal f/u DVT PFX, decubs, aspiration PFX; f/u labs; I/O Graham; incentive spirometry, bedside PT; will need SNF d.w staff d/w pt and pt's daughter
--- NOTE | 2019-10-27 10:23 | PN ---
Progress Note, Physician History of Present Illness: AWAKE, ALERT IN BED NO COMPLAINTS DENIES DYSURIA AFEBRILE BC NO GROWTH URINE C/S C/W CONTAMINATION - Current Medication List Current Medications: Active Medications Acetaminophen (Tylenol -) 650 mg PO Q6H PRN PRN Reason: FEVER Last Admin: 10/24/19 20:51 Dose: 650 mg Albuterol Sulfate (Ventolin 0.083% Nebulizer Soln -) 1 amp NEB Q6H PRN PRN Reason: SHORT OF BREATH/WHEEZING Last Admin: 10/25/19 20:10 Dose: 1 amp Apixaban (Eliquis -) 5 mg PEG BID [facility] Last Admin: 10/26/19 22:15 Dose: 5 mg Diltiazem HCl (Cardizem Injection -) 10 mg IVPUSH Q4H PRN PRN Reason: TACHYCARDIA Ferrous Sulfate (Feosol -) 325 mg PO DAILY [facility] Last Admin: 10/26/19 09:58 Dose: 325 mg Fluticasone Propionate (Flonase -) 1 spray NS DAILY [facility] Last Admin: 10/26/19 10:01 Dose: 1 spray Furosemide (Lasix -) 20 mg PO DAILY [facility] Last Admin: 10/26/19 09:58 Dose: 20 mg Insulin Aspart (Novolog Vial Sliding Scale -) 1 vial SQ ACHS [facility]; Protocol Last Admin: 10/27/19 06:59 Dose: Not Given Latanoprost (Xalatan 0.005% Eye Drops -) 1 drop OD HS [facility] Last Admin: 10/26/19 22:18 Dose: 1 drop Metoprolol Tartrate (Lopressor -) 25 mg NGT BID [facility] Last Admin: 10/26/19 22:15 Dose: 25 mg Ondansetron HCl (Zofran Injection) 4 mg IVPUSH Q6H PRN PRN Reason: NAUSEA Last Admin: 10/25/19 14:11 Dose: 4 mg Pantoprazole Sodium (Protonix -) 20 mg PO DAILY [facility] Last Admin: 10/26/19 09:58 Dose: 20 mg Timolol Maleate (Timoptic 0.5%) 1 drop OU BID [facility] Last Admin: 10/26/19 22:21 Dose: 1 drop Valsartan (Diovan -) 40 mg NGT DAILY [facility] Last Admin: 10/26/19 09:57 Dose: Not Given - Objective Vital Signs: Vital Signs Temperature 98.2 F 10/27/19 02:00 Pulse Rate 54 L 10/27/19 02:00 Respiratory Rate 18 10/27/19 06:00 Blood Pressure 90/51 L 10/27/19 06:00 O2 Sat by Pulse Oximetry (%) 100 10/26/19 21:00 Constitutional: Yes: No Distress Eyes: Yes: Conjunctiva Clear Cardiovascular: Yes: Regular Rate and Rhythm, S1, S2 Respiratory: Yes: Diminished Gastrointestinal: Yes: Normal Bowel Sounds, Soft, Other (SURGICAL WOUND HEALING WELL MO ERYTHEMA/ DRAINAGE). No: Tenderness Extremities: No: Calf Tenderness Edema: No Labs: CBC, BMP 10/26/19 06:13 10/26/19 06:13 INR, PTT INR 1.19 (0.83-1.09) H 10/16/19 06:05 Assessment/Plan LOW GRADE TEMPS RESOLVED ASYMPTOMATIC BACTERURIA OBSERVE OFF ANTIBIOTICS
--- NOTE | 2019-10-27 10:26 | PN ---
Progress Note (short form) - Note Progress Note: Resting in NAD. Reports mild non-specific mid-epigastric discomfort. No acute events overnight. Intake & Output 10/24/19 10/25/19 10/26/19 10/27/19 23:59 23:59 23:59 23:59 Intake Total 840 800 260 Output Total 20 Balance 820 800 260 Last Vital Signs Temp Pulse Resp BP Pulse Ox 98.2 F 54 L 18 90/51 L 100 10/27/19 02:00 10/27/19 02:00 10/27/19 06:00 10/27/19 06:00 10/26/19 21:00 Active Medications Acetaminophen (Tylenol -) 650 mg PO Q6H PRN PRN Reason: FEVER Last Admin: 10/24/19 20:51 Dose: 650 mg Albuterol Sulfate (Ventolin 0.083% Nebulizer Soln -) 1 amp NEB Q6H PRN PRN Reason: SHORT OF BREATH/WHEEZING Last Admin: 10/25/19 20:10 Dose: 1 amp Apixaban (Eliquis -) 5 mg PEG BID [facility] Last Admin: 10/26/19 22:15 Dose: 5 mg Diltiazem HCl (Cardizem Injection -) 10 mg IVPUSH Q4H PRN PRN Reason: TACHYCARDIA Ferrous Sulfate (Feosol -) 325 mg PO DAILY [facility] Last Admin: 10/26/19 09:58 Dose: 325 mg Fluticasone Propionate (Flonase -) 1 spray NS DAILY [facility] Last Admin: 10/26/19 10:01 Dose: 1 spray Furosemide (Lasix -) 20 mg PO DAILY [facility] Last Admin: 10/26/19 09:58 Dose: 20 mg Insulin Aspart (Novolog Vial Sliding Scale -) 1 vial SQ ACHS [facility]; Protocol Last Admin: 10/27/19 06:59 Dose: Not Given Latanoprost (Xalatan 0.005% Eye Drops -) 1 drop OD HS [facility] Last Admin: 10/26/19 22:18 Dose: 1 drop Metoprolol Tartrate (Lopressor -) 25 mg NGT BID [facility] Last Admin: 10/26/19 22:15 Dose: 25 mg Ondansetron HCl (Zofran Injection) 4 mg IVPUSH Q6H PRN PRN Reason: NAUSEA Last Admin: 10/25/19 14:11 Dose: 4 mg Pantoprazole Sodium (Protonix -) 20 mg PO DAILY [facility] Last Admin: 10/26/19 09:58 Dose: 20 mg Timolol Maleate (Timoptic 0.5%) 1 drop OU BID [facility] Last Admin: 10/26/19 22:21 Dose: 1 drop Valsartan (Diovan -) 40 mg NGT DAILY [facility] Last Admin: 10/26/19 09:57 Dose: Not Given Constitutional: Yes: No Distress Neck: Yes: Supple Cardiovascular: Yes: Pulse Irregular Respiratory: Yes: few scattered rhonchi, no wheeze Gastrointestinal: Yes: Normal Bowel Sounds, Soft Edema: No Labs: Laboratory Results - last 24 hr 10/26/19 10/26/19 10/26/19 10:43 16:45 22:11 POC Glucometer 99 104 137 10/27/19 05:40 POC Glucometer 118 Problem List (1) Afib Code(s): I48.91 - UNSPECIFIED ATRIAL FIBRILLATION Qualifiers: Atrial fibrillation type: chronic (2) Anemia Code(s): D64.9 - ANEMIA, UNSPECIFIED (3) Glaucoma Code(s): H40.9 - UNSPECIFIED GLAUCOMA (4) Hyperthyroidism Code(s): E05.90 - THYROTOXICOSIS, UNSP WITHOUT THYROTOXIC CRISIS OR STORM (5) New onset atrial fibrillation Code(s): I48.91 - UNSPECIFIED ATRIAL FIBRILLATION (6) S/P left hemicolectomy Code(s): Z90.49 - ACQUIRED ABSENCE OF OTHER SPECIFIED PARTS OF DIGESTIVE TRACT (7) Acute on chronic diastolic (congestive) heart failure Code(s): I50.33 - ACUTE ON CHRONIC DIASTOLIC (CONGESTIVE) HEART FAILURE (8) Asthma Code(s): J45.909 - UNSPECIFIED ASTHMA, UNCOMPLICATED Qualifiers: Asthma severity: mild Asthma persistence: intermittent Asthma complication type: unspecified Qualified Code(s): J45.20 - Mild intermittent asthma, uncomplicated (9) CAD (coronary artery disease) Code(s): I25.10 - ATHSCL HEART DISEASE OF [place] CORONARY ARTERY W/O ANG PCTRS Qualifiers: Coronary Disease-Associated Artery/Lesion type: [place] artery [place] vs. transplanted heart: [place] heart Associated angina: without angina Qualified Code(s): I25.10 - Atherosclerotic heart disease of [place] coronary artery without angina pectoris (10) HTN (hypertension) Code(s): I10 - ESSENTIAL (PRIMARY) HYPERTENSION Qualifiers: Hypertension type: essential hypertension Qualified Code(s): I10 - Essential (primary) hypertension (11) Parkinson disease Code(s): G20 - PARKINSON'S DISEASE Assessment/Plan Noted CT Abdomen ordered Encourage Incentive Spirometry O2 as needed to maintain saturation PO as tolerated Completed ABX course BD TX PRN OOB to chair / PT as tolerated Aspiration precautions Dr Paez
[2019-10-27] MEDS: FUROSEMIDE 20 MG TABLET (FP) PO SCH (11:09)
[2019-10-27] MEDS: APIXABAN 5 MG TABLET PEG SCH ×2 (11:09→21:51)
[2019-10-27] MEDS: FLUTICASONE PROP 0.05% 16 GM NASAL SPRAY NS SCH (11:09)
[2019-10-27] MEDS: FERROUS SO4 325 MG TABLET (FP) PO SCH (11:09)
[2019-10-27] MEDS: VALSARTAN 40 MG TABLET (FP) NGT SCH (11:09)
[2019-10-27] MEDS: TIMOLOL 0.5% OPHTHALMIC SOL 5 ML BOTTLE OU SCH ×2 (11:10→21:51)
[2019-10-27] MEDS: METOPROLOL TARTRATE 25 MG TABLET (FP) NGT SCH ×3 (11:10→21:53)
[2019-10-27] MEDS: PANTOPRAZOLE 20 MG TABLET (FP) PO SCH (11:10)
--- NOTE | 2019-10-27 12:26 | PN ---
Progress Note, Physician Chief Complaint: Not in distress History of Present Illness: Patient was seen and examined. Awake. Chart was reviewed AF with variable HR - Rate controlled - Current Medication List Current Medications: Active Medications Acetaminophen (Tylenol -) 650 mg PO Q6H PRN PRN Reason: FEVER Last Admin: 10/24/19 20:51 Dose: 650 mg Albuterol Sulfate (Ventolin 0.083% Nebulizer Soln -) 1 amp NEB Q6H PRN PRN Reason: SHORT OF BREATH/WHEEZING Last Admin: 10/25/19 20:10 Dose: 1 amp Apixaban (Eliquis -) 5 mg PEG BID [facility] Last Admin: 10/27/19 11:09 Dose: 5 mg Diltiazem HCl (Cardizem Injection -) 10 mg IVPUSH Q4H PRN PRN Reason: TACHYCARDIA Ferrous Sulfate (Feosol -) 325 mg PO DAILY [facility] Last Admin: 10/27/19 11:09 Dose: 325 mg Fluticasone Propionate (Flonase -) 1 spray NS DAILY [facility] Last Admin: 10/27/19 11:09 Dose: 1 spray Furosemide (Lasix -) 20 mg PO DAILY [facility] Last Admin: 10/27/19 11:09 Dose: 20 mg Insulin Aspart (Novolog Vial Sliding Scale -) 1 vial SQ ACHS [facility]; Protocol Last Admin: 10/27/19 11:52 Dose: Not Given Latanoprost (Xalatan 0.005% Eye Drops -) 1 drop OD HS [facility] Last Admin: 10/26/19 22:18 Dose: 1 drop Metoprolol Tartrate (Lopressor -) 25 mg NGT BID [facility] Last Admin: 10/27/19 11:10 Dose: 25 mg Ondansetron HCl (Zofran Injection) 4 mg IVPUSH Q6H PRN PRN Reason: NAUSEA Last Admin: 10/25/19 14:11 Dose: 4 mg Pantoprazole Sodium (Protonix -) 20 mg PO DAILY [facility] Last Admin: 10/27/19 11:10 Dose: 20 mg Timolol Maleate (Timoptic 0.5%) 1 drop OU BID [facility] Last Admin: 10/27/19 11:10 Dose: 1 drop Valsartan (Diovan -) 40 mg NGT DAILY [facility] Last Admin: 10/27/19 11:09 Dose: 40 mg - Objective Vital Signs: Vital Signs Temperature 98.2 F 10/27/19 02:00 Pulse Rate 55 L 10/27/19 10:00 Respiratory Rate 20 10/27/19 10:00 Blood Pressure 90/63 10/27/19 10:00 O2 Sat by Pulse Oximetry (%) 100 10/27/19 10:00 Eyes: Yes: PERRL HENT: Yes: Atraumatic Neck: Yes: Supple Cardiovascular: Yes: Bradycardia, Pulse Irregular, S1, S2 Respiratory: Yes: CTA Bilaterally Gastrointestinal: Yes: Normal Bowel Sounds, Soft. No: Tenderness Edema: No Additional Findings/Remarks: Review of Systems Constitutional: denies: Chills or Fever Cardiovascular: denies: chest pain, SOB Respiratory: denies: SOB, cough Gastrointestinal: denies: Nausea, Vomiting, Diarrhea, Constipation or Abdominal Pain Genitourinary: denies: Dysuria Musculoskeletal: denies: Joint Pain Neurological: denies: Dizziness or Headache Labs: CBC, BMP 10/26/19 06:13 10/26/19 06:13 Problem List - Problems (1) Afib Code(s): I48.91 - UNSPECIFIED ATRIAL FIBRILLATION Qualifiers: Atrial fibrillation type: chronic (2) Anemia Code(s): D64.9 - ANEMIA, UNSPECIFIED (3) Glaucoma Code(s): H40.9 - UNSPECIFIED GLAUCOMA (4) Hyperthyroidism Code(s): E05.90 - THYROTOXICOSIS, UNSP WITHOUT THYROTOXIC CRISIS OR STORM (5) New onset atrial fibrillation Code(s): I48.91 - UNSPECIFIED ATRIAL FIBRILLATION (6) S/P left hemicolectomy Code(s): Z90.49 - ACQUIRED ABSENCE OF OTHER SPECIFIED PARTS OF DIGESTIVE TRACT (7) Acute on chronic diastolic (congestive) heart failure Code(s): I50.33 - ACUTE ON CHRONIC DIASTOLIC (CONGESTIVE) HEART FAILURE (8) Asthma Code(s): J45.909 - UNSPECIFIED ASTHMA, UNCOMPLICATED Qualifiers: Asthma severity: mild Asthma persistence: intermittent Asthma complication type: unspecified Qualified Code(s): J45.20 - Mild intermittent asthma, uncomplicated (9) CAD (coronary artery disease) Code(s): I25.10 - ATHSCL HEART DISEASE OF [place] CORONARY ARTERY W/O ANG PCTRS Qualifiers: Coronary Disease-Associated Artery/Lesion type: [place] artery [place] vs. transplanted heart: [place] heart Associated angina: without angina Qualified Code(s): I25.10 - Atherosclerotic heart disease of [place] coronary artery without angina pectoris (10) HTN (hypertension) Code(s): I10 - ESSENTIAL (PRIMARY) HYPERTENSION Qualifiers: Hypertension type: essential hypertension Qualified Code(s): I10 - Essential (primary) hypertension (11) Parkinson disease Code(s): G20 - PARKINSON'S DISEASE Assessment/Plan 1. Post acute respiratory failure, currently stable 2. Post abdominal hernia repair complicated by small bowel resection and mesh placement 3. Persistent atrial Fibrillation [id number] score of 5 4. Diastolic LV dysfunction with clinical class 0 NYHA classification LV failure , generalized edema 5. HTN 6. DM 7. Hyperthyroidism 8. Acute renal insufficiency 9. Hematuria, resolved 10. History of cervical carcinoma post resection 11. History of colon carcinoma post javi-colectomy 12. Left hand hematoma PLAN: 1. IV Cardizem as needed for rate control 2. Lopressor 25 mg BID, Diovan 40 mg QD and Lasix 20 mg QD 3. Eliquis 5 mg BID 4. PT->SNF Further plans are to follow Johann Cowan MD
[2019-10-27] MEDS: LATANOPROST 0.005% OPHTH SOLN 2.5ML BOTTLE OD SCH (21:51)
[2019-10-28] MEDS: INSULIN SLIDING SCALE (NOVOLOG) 1 VIAL SQ SCH ×4 (06:27→22:46)
[2019-10-28 07:14] LABS: BASO % 0.3 % (0-2.0); EOS % 1.1 % (0-4.5); HEMATOCRIT 29.1 % (32.4-45.2); HEMOGLOBIN 9.6 GM/dL (10.7-15.3); LYMPH % 16.9 % (8-40); MCH 28.7 pg (25.7-33.7); MCHC 32.9 g/dl (32.0-36.0); MEAN CELL VOLUME 87.3 fl (80-96); MEAN PLT VOLUME 8.1 fl (7.5-11.1); NEUT % 72.7 % (42.8-82.8); PLATELET COUNT 194 K/MM3 (134-434); RBC 3.33 M/mm3 (3.60-5.2); RDW 15.8 % (11.6-15.6); WHITE BLOOD COUNT 7.1 K/mm3 (4.0-10.0)
[2019-10-28 07:48] LABS: BILIRUBIN,TOTAL 0.8 mg/dL (0.2-1); BLOOD UREA NITROGEN 13.1 mg/dL (7-18); CALCIUM 7.6 mg/dL (8.5-10.1); CREATININE 0.6 mg/dL (0.55-1.3); POTASSIUM 3.7 mmol/L (3.5-5.1); TOT PROT 4.7 g/dl (6.4-8.2)
[2019-10-28] MEDS: METOPROLOL TARTRATE 25 MG TABLET (FP) NGT SCH ×2 (09:09→22:29)
[2019-10-28] MEDS: PANTOPRAZOLE 20 MG TABLET (FP) PO SCH (09:09)
[2019-10-28] MEDS: FERROUS SO4 325 MG TABLET (FP) PO SCH (09:09)
[2019-10-28] MEDS: APIXABAN 5 MG TABLET PEG SCH ×2 (09:09→22:29)
[2019-10-28] MEDS: VALSARTAN 40 MG TABLET (FP) NGT SCH (09:09)
[2019-10-28] MEDS: FUROSEMIDE 20 MG TABLET (FP) PO SCH (09:09)
[2019-10-28] MEDS: FLUTICASONE PROP 0.05% 16 GM NASAL SPRAY NS SCH (09:13)
--- NOTE | 2019-10-28 09:14 | PN ---
Progress Note, Physician Chief Complaint: feels well daughter in law at bedside no pain ate better afebrile - Current Medication List Current Medications: Active Medications Acetaminophen (Tylenol -) 650 mg PO Q6H PRN PRN Reason: FEVER Last Admin: 10/24/19 20:51 Dose: 650 mg Albuterol Sulfate (Ventolin 0.083% Nebulizer Soln -) 1 amp NEB Q6H PRN PRN Reason: SHORT OF BREATH/WHEEZING Last Admin: 10/25/19 20:10 Dose: 1 amp Apixaban (Eliquis -) 5 mg PEG BID [facility] Last Admin: 10/27/19 21:51 Dose: 5 mg Diltiazem HCl (Cardizem Injection -) 10 mg IVPUSH Q4H PRN PRN Reason: TACHYCARDIA Ferrous Sulfate (Feosol -) 325 mg PO DAILY [facility] Last Admin: 10/27/19 11:09 Dose: 325 mg Fluticasone Propionate (Flonase -) 1 spray NS DAILY [facility] Last Admin: 10/27/19 11:09 Dose: 1 spray Furosemide (Lasix -) 20 mg PO DAILY [facility] Last Admin: 10/27/19 11:09 Dose: 20 mg Insulin Aspart (Novolog Vial Sliding Scale -) 1 vial SQ [facility]; Protocol Last Admin: 10/28/19 06:27 Dose: Not Given Latanoprost (Xalatan 0.005% Eye Drops -) 1 drop OD HS [facility] Last Admin: 10/27/19 21:51 Dose: 1 drop Metoprolol Tartrate (Lopressor -) 25 mg NGT BID [facility] Last Admin: 10/27/19 21:53 Dose: Not Given Ondansetron HCl (Zofran Injection) 4 mg IVPUSH Q6H PRN PRN Reason: NAUSEA Last Admin: 10/25/19 14:11 Dose: 4 mg Pantoprazole Sodium (Protonix -) 20 mg PO DAILY [facility] Last Admin: 10/27/19 11:10 Dose: 20 mg Timolol Maleate (Timoptic 0.5%) 1 drop OU BID [facility] Last Admin: 10/27/19 21:51 Dose: 1 drop Valsartan (Diovan -) 40 mg NGT DAILY [facility] Last Admin: 10/27/19 11:09 Dose: 40 mg - Objective Vital Signs: Vital Signs Temperature 97.6 F 10/28/19 06:00 Pulse Rate 55 L 10/28/19 06:00 Respiratory Rate 17 10/28/19 06:00 Blood Pressure 106/45 L 10/28/19 06:00 O2 Sat by Pulse Oximetry (%) 100 10/27/19 20:01 Constitutional: Yes: No Distress Eyes: Yes: Conjunctiva Clear HENT: Yes: Atraumatic Neck: Yes: Supple Cardiovascular: No: Regular Rate and Rhythm Respiratory: Yes: CTA Bilaterally Gastrointestinal: Yes: Soft. No: Tenderness Genitourinary: No: Hematuria Musculoskeletal: No: Joint Stiffness, Joint Swelling Extremities: Yes: Other (L hand hematoma smaller). No: Cold, Cool Edema: No Integumentary: No: Rash, Venous Stasis Changes Neurological: Yes: Alert ...Motor Strength: WNL Psychiatric: Yes: Alert. No: Agitated Labs: CBC, BMP 10/28/19 05:50 10/28/19 05:50 INR, PTT INR 1.19 (0.83-1.09) H 10/16/19 06:05 - ....Imaging Other: Report Reviewed Assessment/Plan 83 yo F h/of Colon Ca (s/p Hemicolectomy, 02/2019), HTN, HLD, Afib ( on Eliquis) , Diastolic CHF, HLD, Hyperthyroidism s/p hernia repair, adhesions, s/p incidental enterotomy and partial small bowel resection / reanastomosis and mesh placement; surgery f/u po eliquis L hand small hematoma, no drainage needed ID no ATB encouraged to eat more cardiology f/u; BP stable on BP meds; prerenal azotemia - renal f/u DVT PFX, decubs, aspiration PFX; f/u labs; I/O Graham; incentive spirometry, bedside PT; will need SNF d.w staff d/w pt and pt's daughter
[2019-10-28] MEDS: TIMOLOL 0.5% OPHTHALMIC SOL 5 ML BOTTLE OU SCH ×2 (09:15→22:42)
--- NOTE | 2019-10-28 10:07 | PN ---
Progress Note (short form) - Note Progress Note: Resting in NAD. Still with some mild non-specific mid-epigastric discomfort. No acute events overnight. Intake & Output 10/25/19 10/26/19 10/27/19 10/28/19 23:59 23:59 23:59 23:59 Intake Total 800 260 100 Balance 800 260 100 Last Vital Signs Temp Pulse Resp BP Pulse Ox 97.8 F 59 L 17 104/50 L 100 10/28/19 09:19 10/28/19 09:19 10/28/19 09:19 10/28/19 09:19 10/27/19 20:01 Active Medications Acetaminophen (Tylenol -) 650 mg PO Q6H PRN PRN Reason: FEVER Last Admin: 10/24/19 20:51 Dose: 650 mg Albuterol Sulfate (Ventolin 0.083% Nebulizer Soln -) 1 amp NEB Q6H PRN PRN Reason: SHORT OF BREATH/WHEEZING Last Admin: 10/25/19 20:10 Dose: 1 amp Apixaban (Eliquis -) 5 mg PEG BID [facility] Last Admin: 10/28/19 09:09 Dose: 5 mg Diltiazem HCl (Cardizem Injection -) 10 mg IVPUSH Q4H PRN PRN Reason: TACHYCARDIA Ferrous Sulfate (Feosol -) 325 mg PO DAILY [facility] Last Admin: 10/28/19 09:09 Dose: 325 mg Fluticasone Propionate (Flonase -) 1 spray NS DAILY [facility] Last Admin: 10/28/19 09:13 Dose: 1 spray Furosemide (Lasix -) 20 mg PO DAILY [facility] Last Admin: 10/28/19 09:09 Dose: 20 mg Insulin Aspart (Novolog Vial Sliding Scale -) 1 vial SQ ACHS [facility]; Protocol Last Admin: 10/28/19 06:27 Dose: Not Given Latanoprost (Xalatan 0.005% Eye Drops -) 1 drop OD HS [facility] Last Admin: 10/27/19 21:51 Dose: 1 drop Metoprolol Tartrate (Lopressor -) 25 mg NGT BID [facility] Last Admin: 10/28/19 09:09 Dose: 25 mg Ondansetron HCl (Zofran Injection) 4 mg IVPUSH Q6H PRN PRN Reason: NAUSEA Last Admin: 10/25/19 14:11 Dose: 4 mg Pantoprazole Sodium (Protonix -) 20 mg PO DAILY [facility] Last Admin: 10/28/19 09:09 Dose: 20 mg Timolol Maleate (Timoptic 0.5%) 1 drop OU BID [facility] Last Admin: 10/28/19 09:15 Dose: 1 drop Valsartan (Diovan -) 40 mg NGT DAILY [facility] Last Admin: 10/28/19 09:09 Dose: 40 mg Constitutional: Yes: No Distress Neck: Yes: Supple Cardiovascular: Yes: Pulse Irregular Respiratory: Yes: few scattered rhonchi, no wheeze Gastrointestinal: Yes: Normal Bowel Sounds, Soft Edema: No Labs: Laboratory Results - last 24 hr 10/24/19 10/27/19 10/27/19 18:30 11:48 17:17 WBC RBC Hgb Hct MCV MCH MCHC RDW Plt Count MPV Absolute Neuts (auto) Neutrophils % Lymphocytes % Monocytes % Eosinophils % Basophils % Nucleated RBC % Sodium Potassium Chloride Carbon Dioxide Anion Gap BUN Creatinine Est GFR (CKD-EPI)AfAm Est GFR (CKD-EPI)NonAf POC Glucometer 103 117 Random Glucose Calcium Total Bilirubin AST ALT Alkaline Phosphatase Total Protein Albumin Blood Type O POSITIVE Antibody Screen Negative Crossmatch See Detail 10/27/19 10/28/19 10/28/19 21:01 05:50 05:50 WBC 7.1 RBC 3.33 L Hgb 9.6 L Hct 29.1 L MCV 87.3 MCH 28.7 MCHC 32.9 RDW 15.8 H Plt Count 194 MPV 8.1 Absolute Neuts (auto) 5.1 Neutrophils % 72.7 Lymphocytes % 16.9 D Monocytes % 9.0 Eosinophils % 1.1 Basophils % 0.3 Nucleated RBC % 0 Sodium 142 Potassium 3.7 Chloride 105 Carbon Dioxide 29 Anion Gap 7 L BUN 13.1 Creatinine 0.6 Est GFR (CKD-EPI)AfAm 97.69 Est GFR (CKD-EPI)NonAf 84.29 POC Glucometer 127 Random Glucose 106 Calcium 7.6 L Total Bilirubin 0.8 AST 8 L ALT 13 Alkaline Phosphatase 69 Total Protein 4.7 L Albumin 2.0 L Blood Type Antibody Screen Crossmatch 10/28/19 06:20 WBC RBC Hgb Hct MCV MCH MCHC RDW Plt Count MPV Absolute Neuts (auto) Neutrophils % Lymphocytes % Monocytes % Eosinophils % Basophils % Nucleated RBC % Sodium Potassium Chloride Carbon Dioxide Anion Gap BUN Creatinine Est GFR (CKD-EPI)AfAm Est GFR (CKD-EPI)NonAf POC Glucometer 110 Random Glucose Calcium Total Bilirubin AST ALT Alkaline Phosphatase Total Protein Albumin Blood Type Antibody Screen Crossmatch Problem List (1) Afib Code(s): I48.91 - UNSPECIFIED ATRIAL FIBRILLATION Qualifiers: Atrial fibrillation type: chronic (2) Anemia Code(s): D64.9 - ANEMIA, UNSPECIFIED (3) Glaucoma Code(s): H40.9 - UNSPECIFIED GLAUCOMA (4) Hyperthyroidism Code(s): E05.90 - THYROTOXICOSIS, UNSP WITHOUT THYROTOXIC CRISIS OR STORM (5) New onset atrial fibrillation Code(s): I48.91 - UNSPECIFIED ATRIAL FIBRILLATION (6) S/P left hemicolectomy Code(s): Z90.49 - ACQUIRED ABSENCE OF OTHER SPECIFIED PARTS OF DIGESTIVE TRACT (7) Acute on chronic diastolic (congestive) heart failure Code(s): I50.33 - ACUTE ON CHRONIC DIASTOLIC (CONGESTIVE) HEART FAILURE (8) Asthma Code(s): J45.909 - UNSPECIFIED ASTHMA, UNCOMPLICATED Qualifiers: Asthma severity: mild Asthma persistence: intermittent Asthma complication type: unspecified Qualified Code(s): J45.20 - Mild intermittent asthma, uncomplicated (9) CAD (coronary artery disease) Code(s): I25.10 - ATHSCL HEART DISEASE OF [place] CORONARY ARTERY W/O ANG PCTRS Qualifiers: Coronary Disease-Associated Artery/Lesion type: [place] artery [place] vs. transplanted heart: [place] heart Associated angina: without angina Qualified Code(s): I25.10 - Atherosclerotic heart disease of [place] coronary artery without angina pectoris (10) HTN (hypertension) Code(s): I10 - ESSENTIAL (PRIMARY) HYPERTENSION Qualifiers: Hypertension type: essential hypertension Qualified Code(s): I10 - Essential (primary) hypertension (11) Parkinson disease Code(s): G20 - PARKINSON'S DISEASE Assessment/Plan Monitor Abdominal exam Encourage Incentive Spirometry O2 as needed to maintain saturation PO as tolerated Completed ABX course BD TX PRN OOB to chair / PT as tolerated Aspiration precautions Dr Paez
--- NOTE | 2019-10-28 10:22 | PN ---
Progress Note, Physician Chief Complaint: Not in distress History of Present Illness: Patient was seen and examined. Awake. Chart was reviewed AF with variable HR - Rate controlled - Current Medication List Current Medications: Active Medications Acetaminophen (Tylenol -) 650 mg PO Q6H PRN PRN Reason: FEVER Last Admin: 10/24/19 20:51 Dose: 650 mg Albuterol Sulfate (Ventolin 0.083% Nebulizer Soln -) 1 amp NEB Q6H PRN PRN Reason: SHORT OF BREATH/WHEEZING Last Admin: 10/25/19 20:10 Dose: 1 amp Apixaban (Eliquis -) 5 mg PEG BID [facility] Last Admin: 10/28/19 09:09 Dose: 5 mg Diltiazem HCl (Cardizem Injection -) 10 mg IVPUSH Q4H PRN PRN Reason: TACHYCARDIA Ferrous Sulfate (Feosol -) 325 mg PO DAILY [facility] Last Admin: 10/28/19 09:09 Dose: 325 mg Fluticasone Propionate (Flonase -) 1 spray NS DAILY [facility] Last Admin: 10/28/19 09:13 Dose: 1 spray Furosemide (Lasix -) 20 mg PO DAILY [facility] Last Admin: 10/28/19 09:09 Dose: 20 mg Insulin Aspart (Novolog Vial Sliding Scale -) 1 vial SQ ACHS [facility]; Protocol Last Admin: 10/28/19 06:27 Dose: Not Given Latanoprost (Xalatan 0.005% Eye Drops -) 1 drop OD HS [facility] Last Admin: 10/27/19 21:51 Dose: 1 drop Metoprolol Tartrate (Lopressor -) 25 mg NGT BID [facility] Last Admin: 10/28/19 09:09 Dose: 25 mg Ondansetron HCl (Zofran Injection) 4 mg IVPUSH Q6H PRN PRN Reason: NAUSEA Last Admin: 10/25/19 14:11 Dose: 4 mg Pantoprazole Sodium (Protonix -) 20 mg PO DAILY [facility] Last Admin: 10/28/19 09:09 Dose: 20 mg Timolol Maleate (Timoptic 0.5%) 1 drop OU BID [facility] Last Admin: 10/28/19 09:15 Dose: 1 drop Valsartan (Diovan -) 40 mg NGT DAILY [facility] Last Admin: 10/28/19 09:09 Dose: 40 mg - Objective Vital Signs: Vital Signs Temperature 97.8 F 10/28/19 09:19 Pulse Rate 59 L 10/28/19 09:19 Respiratory Rate 17 10/28/19 09:19 Blood Pressure 104/50 L 10/28/19 09:19 O2 Sat by Pulse Oximetry (%) 100 10/27/19 20:01 Eyes: Yes: PERRL HENT: Yes: Atraumatic Neck: Yes: Supple Cardiovascular: Yes: Pulse Irregular, S1, S2 Respiratory: Yes: CTA Bilaterally Gastrointestinal: Yes: Other (post op) Edema: No Additional Findings/Remarks: Review of Systems Constitutional: denies: Chills or Fever Cardiovascular: denies: chest pain, SOB Respiratory: denies: SOB, cough Gastrointestinal: denies: Nausea, Vomiting, Diarrhea, Constipation or Abdominal Pain Genitourinary: denies: Dysuria Musculoskeletal: denies: Joint Pain Neurological: denies: Dizziness or Headache Labs: CBC, BMP 10/28/19 05:50 10/28/19 05:50 INR, PTT INR 1.19 (0.83-1.09) H 10/16/19 06:05 Problem List - Problems (1) Afib Code(s): I48.91 - UNSPECIFIED ATRIAL FIBRILLATION Qualifiers: Atrial fibrillation type: permanent Qualified Code(s): I48.21 - Permanent atrial fibrillation (2) Anemia Code(s): D64.9 - ANEMIA, UNSPECIFIED (3) Glaucoma Code(s): H40.9 - UNSPECIFIED GLAUCOMA (4) Hyperthyroidism Code(s): E05.90 - THYROTOXICOSIS, UNSP WITHOUT THYROTOXIC CRISIS OR STORM (5) S/P left hemicolectomy Code(s): Z90.49 - ACQUIRED ABSENCE OF OTHER SPECIFIED PARTS OF DIGESTIVE TRACT (6) Acute on chronic diastolic (congestive) heart failure Code(s): I50.33 - ACUTE ON CHRONIC DIASTOLIC (CONGESTIVE) HEART FAILURE (7) Asthma Code(s): J45.909 - UNSPECIFIED ASTHMA, UNCOMPLICATED Qualifiers: Asthma severity: mild Asthma persistence: intermittent Asthma complication type: unspecified Qualified Code(s): J45.20 - Mild intermittent asthma, uncomplicated (8) CAD (coronary artery disease) Code(s): I25.10 - ATHSCL HEART DISEASE OF [place] CORONARY ARTERY W/O ANG PCTRS Qualifiers: Coronary Disease-Associated Artery/Lesion type: [place] artery [place] vs. transplanted heart: [place] heart Associated angina: without angina Qualified Code(s): I25.10 - Atherosclerotic heart disease of [place] coronary artery without angina pectoris (9) HTN (hypertension) Code(s): I10 - ESSENTIAL (PRIMARY) HYPERTENSION Qualifiers: Hypertension type: essential hypertension Qualified Code(s): I10 - Essential (primary) hypertension (10) Parkinson disease Code(s): G20 - PARKINSON'S DISEASE Assessment/Plan 1. Post acute respiratory failure, currently stable 2. Post abdominal hernia repair complicated by small bowel resection and mesh placement 3. Persistent atrial Fibrillation [id number] score of 5 4. Diastolic LV dysfunction with clinical class 0 NYHA classification LV failure , generalized edema 5. HTN 6. DM 7. Hyperthyroidism 8. Acute renal insufficiency 9. Hematuria, resolved 10. History of cervical carcinoma post resection 11. History of colon carcinoma post javi-colectomy 12. Left hand hematoma PLAN: 1. Continue Lopressor 25 mg BID, Diovan 40 mg QD and Lasix 20 mg QD 2. Continue Eliquis 5 mg BID 3. PT and await transfer to SNF Further plans are to follow Johann Cowan MD
--- NOTE | 2019-10-28 11:35 | PN ---
Progress Note (short form) - Note Progress Note: Attending Surgeon POD#20 No c/o ?; taking PO and having bowel movements and passing flatus VSS AF abdo-incision c/d/i w/lucius in place; drain sites OK; some fullness of the wound distally on the left; skin is nl and non erythematous; o/w negative. WBC-nl IMP: doing well PLAN: Continue present tx. John Alavrado MD FACS
[2019-10-28] MEDS: ONDANSETRON 4 MG/2 ML VIAL IVPUSH PRN (12:06)
[2019-10-28] MEDS ORDERED: PT OWN MED DRAWER 7, Y5N ONE (12:29)
[2019-10-28] MEDS: ACETAMINOPHEN 325 MG TABLET (FP) PO PRN (17:09)
[2019-10-28] MEDS ORDERED: VANCOMYCIN 1 GRAM (PRE-DOCKED) 1,000 MG/250 ML BAG IVPB ONE (21:50)
[2019-10-28] MEDS ORDERED: METOPROLOL TARTRATE 25 MG TABLET (FP) PO SCH (22:22)
[2019-10-28] MEDS ORDERED: APIXABAN 5 MG TABLET PO SCH (22:22)
[2019-10-28] MEDS: APIXABAN 5 MG TABLET PO SCH (22:41)
[2019-10-28] MEDS: LATANOPROST 0.005% OPHTH SOLN 2.5ML BOTTLE OD SCH (22:42)
[2019-10-28] MEDS: METOPROLOL TARTRATE 25 MG TABLET (FP) PO SCH (22:43)
[2019-10-29] MEDS: ACETAMINOPHEN 325 MG TABLET (FP) PO PRN ×2 (00:10→15:07)
[2019-10-29] MEDS: ERTAPENEM SODIUM 1 GM in SODIUM CHLORIDE 50 ML IVPB SCH ×2 (02:05→10:00)
[2019-10-29] MEDS: ONDANSETRON 4 MG/2 ML VIAL IVPUSH PRN ×2 (02:05→21:00)
[2019-10-29] MEDS: INSULIN SLIDING SCALE (NOVOLOG) 1 VIAL SQ SCH ×4 (06:08→21:06)
--- NOTE | 2019-10-29 09:11 | PN ---
Progress Note, Physician Chief Complaint: in bed NAD had fever last night; on IV ATB per ID CT done results pending; d/w daughter at bedside - will f/u with surgery - Current Medication List Current Medications: Active Medications Acetaminophen (Tylenol -) 650 mg PO Q6H PRN PRN Reason: FEVER Last Admin: 10/29/19 00:10 Dose: 650 mg Albuterol Sulfate (Ventolin 0.083% Nebulizer Soln -) 1 amp NEB Q6H PRN PRN Reason: SHORT OF BREATH/WHEEZING Last Admin: 10/25/19 20:10 Dose: 1 amp Apixaban (Eliquis -) 5 mg PO BID [facility] Last Admin: 10/28/19 22:41 Dose: 5 mg Diltiazem HCl (Cardizem Injection -) 10 mg IVPUSH Q4H PRN PRN Reason: TACHYCARDIA Ferrous Sulfate (Feosol -) 325 mg PO DAILY [facility] Last Admin: 10/28/19 09:09 Dose: 325 mg Fluticasone Propionate (Flonase -) 1 spray NS DAILY [facility] Last Admin: 10/28/19 09:13 Dose: 1 spray Furosemide (Lasix -) 20 mg PO DAILY [facility] Last Admin: 10/28/19 09:09 Dose: 20 mg Ertapenem 1 gm/ Sodium (Chloride) 50 mls @ 100 mls/hr IVPB DAILY [facility] Last Admin: 10/29/19 02:05 Dose: 100 mls/hr Insulin Aspart (Novolog Vial Sliding Scale -) 1 vial SQ ACHS [facility]; Protocol Last Admin: 10/29/19 06:08 Dose: Not Given Latanoprost (Xalatan 0.005% Eye Drops -) 1 drop OD HS [facility] Last Admin: 10/28/19 22:42 Dose: 1 drop Metoprolol Tartrate (Lopressor -) 25 mg PO BID [facility] Last Admin: 10/28/19 22:43 Dose: 25 mg Ondansetron HCl (Zofran Injection) 4 mg IVPUSH Q6H PRN PRN Reason: NAUSEA Last Admin: 10/29/19 02:05 Dose: 4 mg Pantoprazole Sodium (Protonix -) 20 mg PO DAILY [facility] Last Admin: 10/28/19 09:09 Dose: 20 mg Timolol Maleate (Timoptic 0.5%) 1 drop OU BID [facility] Last Admin: 10/28/19 22:42 Dose: 1 drop Valsartan (Diovan -) 40 mg NGT DAILY [facility] Last Admin: 10/28/19 09:09 Dose: 40 mg - Objective Vital Signs: Vital Signs Temperature 98.9 F 10/29/19 05:31 Pulse Rate 57 L 10/29/19 05:31 Respiratory Rate 25 H 10/29/19 05:31 Blood Pressure 110/47 L 10/29/19 05:31 O2 Sat by Pulse Oximetry (%) 95 10/28/19 20:00 Constitutional: Yes: No Distress, Calm Eyes: Yes: Conjunctiva Clear HENT: Yes: Atraumatic Neck: Yes: Supple Cardiovascular: No: Regular Rate and Rhythm Respiratory: Yes: CTA Bilaterally Gastrointestinal: Yes: Soft. No: Tenderness Genitourinary: No: Hematuria Musculoskeletal: No: Joint Swelling, Muscle Pain Extremities: No: Cold, Cool Edema: No Integumentary: No: Erythema Neurological: Yes: Alert ...Motor Strength: WNL Psychiatric: Yes: Alert Labs: CBC, BMP 10/28/19 05:50 10/28/19 05:50 INR, PTT INR 1.19 (0.83-1.09) H 10/16/19 06:05 - ....Imaging Other: Report Reviewed Assessment/Plan 83 yo F h/of Colon Ca (s/p Hemicolectomy, 02/2019), HTN, HLD, Afib ( on Eliquis) , Diastolic CHF, HLD, Hyperthyroidism s/p hernia repair, adhesions, s/p incidental enterotomy and partial small bowel resection / reanastomosis and mesh placement; surgery f/u po eliquis L hand small hematoma improving fever: ATB per ID, abdomen CT results; cultures sent; encouraged to eat more cardiology f/u; BP stable on BP meds; prerenal azotemia - renal f/u DVT PFX, decubs, aspiration PFX; f/u labs; I/O Graham; incentive spirometry, bedside PT; will need SNF d.w staff d/w pt and pt's daughter
[2019-10-29] MEDS: FERROUS SO4 325 MG TABLET (FP) PO SCH (09:46)
[2019-10-29] MEDS: APIXABAN 5 MG TABLET PO SCH (09:47)
[2019-10-29] MEDS: PANTOPRAZOLE 20 MG TABLET (FP) PO SCH (09:48)
[2019-10-29] MEDS: TIMOLOL 0.5% OPHTHALMIC SOL 5 ML BOTTLE OU SCH ×2 (09:52→21:11)
[2019-10-29] MEDS: FLUTICASONE PROP 0.05% 16 GM NASAL SPRAY NS SCH (09:53)
--- NOTE | 2019-10-29 09:56 | PN ---
Progress Note (short form) - Note Progress Note: GENERAL SURGERY POD #21 s/p incisional hernia repair w/ Phasix mesh and sb resection No acute events per RN notes. Patient is alert. She is OOB to chair with assistance. Ambulating with PT (notes reviewed -- difficulty secondary to her tremulous nature associated with her Parkinson's) Passing flatus and bm's Tolerating diet. Denies n/v/f/c, CP, palpitations, SOB or FREITAS. AVSS Fever Tend 10/28/10/28/19 10/28/19 10/28/19 10/28/19 10/28/19 13:00 16:57 18:26 22:30 02:00 05:31 Temperature 99.9 F 102.6 F 100.8 F 99.7 F 100.8 F 98.9 F PE Gen: A&O x 3 Resp: unlabored respirations 96% on RA Cor: afib rate controlled Abd: soft, nt. nd. lucius removed while on rounds and steri strips placed. Fullness noted to inferior pole of surgical incision (left). No erythema or skin chnages. No purulent drainage. LE: SCDs bilat. Soft. NT. Problem List - Problems (1) S/P repair of ventral hernia Assessment/Plan: POD #21 s/p incisional hernia repair w/ Phasix mesh and sb resection. Patient febrile yesterday/this morning. No leukocytosis. Non-toxic appearing. 1. [place] dc'd on rounds and steri strips applied 2. Cont to ambulate with PT 3. Cont Medical management 4. Surgery to follow until official results of ABD CT scan 5. f/u fever work-up Code(s): Z98.890 - OTHER SPECIFIED POSTPROCEDURAL STATES; Z87.19 - PERSONAL HISTORY OF OTHER DISEASES OF THE DIGESTIVE SYSTEM (2) Obesity (BMI 30-39.9) Code(s): E66.9 - OBESITY, UNSPECIFIED (3) CVA (cerebral vascular accident) Code(s): I63.9 - CEREBRAL INFARCTION, UNSPECIFIED Qualifiers: CVA mechanism: unspecified Qualified Code(s): I63.9 - Cerebral infarction, unspecified (4) HTN (hypertension) Code(s): I10 - ESSENTIAL (PRIMARY) HYPERTENSION Qualifiers: Hypertension type: essential hypertension Qualified Code(s): I10 - Essential (primary) hypertension (5) Obesity (BMI 35.0-39.9 without comorbidity) Code(s): E66.9 - OBESITY, UNSPECIFIED
[2019-10-29] MEDS: METOPROLOL TARTRATE 25 MG TABLET (FP) PO SCH ×2 (10:00→22:52)
[2019-10-29] MEDS: VALSARTAN 40 MG TABLET (FP) NGT SCH (11:41)
--- NOTE | 2019-10-29 12:33 | PN ---
Progress Note (short form) - Note Progress Note: PULMONARY Denies shortness of breath. Febrile yesterday. Vital Signs Period Temp Pulse Resp BP Sys/Ugarte Pulse Ox Last 24 Hr 98.9 F-102.6 F 53-66 18-29 89-118/43-62 95-95 Gen: NAD at rest Heart: RRR Lung: decreased breath sounds at the bases Abd: soft, nontender Ext: no edema CBC, BMP 10/28/19 05:50 10/28/19 05:50 Active Medications Acetaminophen (Tylenol -) 650 mg PO Q6H PRN PRN Reason: FEVER Last Admin: 10/29/19 00:10 Dose: 650 mg Albuterol Sulfate (Ventolin 0.083% Nebulizer Soln -) 1 amp NEB Q6H PRN PRN Reason: SHORT OF BREATH/WHEEZING Last Admin: 10/25/19 20:10 Dose: 1 amp Apixaban (Eliquis -) 5 mg PO BID [facility] Last Admin: 10/29/19 09:47 Dose: 5 mg Diltiazem HCl (Cardizem Injection -) 10 mg IVPUSH Q4H PRN PRN Reason: TACHYCARDIA Ferrous Sulfate (Feosol -) 325 mg PO DAILY [facility] Last Admin: 10/29/19 09:46 Dose: 325 mg Fluticasone Propionate (Flonase -) 1 spray NS DAILY [facility] Last Admin: 10/29/19 09:53 Dose: 1 spray Furosemide (Lasix -) 20 mg PO DAILY [facility] Last Admin: 10/28/19 09:09 Dose: 20 mg Ertapenem 1 gm/ Sodium (Chloride) 50 mls @ 100 mls/hr IVPB DAILY [facility] Last Admin: 10/29/19 10:00 Dose: Not Given Insulin Aspart (Novolog Vial Sliding Scale -) 1 vial SQ ACHS [facility]; Protocol Last Admin: 10/29/19 11:42 Dose: Not Given Latanoprost (Xalatan 0.005% Eye Drops -) 1 drop OD HS [facility] Last Admin: 10/28/19 22:42 Dose: 1 drop Metoprolol Tartrate (Lopressor -) 25 mg PO BID [facility] Last Admin: 10/29/19 10:00 Dose: Not Given Ondansetron HCl (Zofran Injection) 4 mg IVPUSH Q6H PRN PRN Reason: NAUSEA Last Admin: 10/29/19 02:05 Dose: 4 mg Pantoprazole Sodium (Protonix -) 20 mg PO DAILY [facility] Last Admin: 10/29/19 09:48 Dose: 20 mg Timolol Maleate (Timoptic 0.5%) 1 drop OU BID [facility] Last Admin: 10/29/19 09:52 Dose: 1 drop Valsartan (Diovan -) 40 mg NGT DAILY [facility] Last Admin: 10/29/19 11:41 Dose: Not Given A/P s/p Incisional Hernia Repair with mesh/SB resection s/p Acute Respiratory Failure Atrial Fibrillation HTN DM Hyperthyroidism h/o Colon Ca h/o Cervical Ca Anemia - f/u CT A/P - continue antibiotics - pain control - rate control - continue anticoagulation - PO per surgery
--- NOTE | 2019-10-29 12:59 | PN ---
Progress Note, Physician History of Present Illness: Hemodynamics stable with rate-controlled afib. Febrile yesterday, f/u abd/ pelvic CT. Having BM. - Current Medication List Current Medications: Active Medications Acetaminophen (Tylenol -) 650 mg PO Q6H PRN PRN Reason: FEVER Last Admin: 10/29/19 00:10 Dose: 650 mg Albuterol Sulfate (Ventolin 0.083% Nebulizer Soln -) 1 amp NEB Q6H PRN PRN Reason: SHORT OF BREATH/WHEEZING Last Admin: 10/25/19 20:10 Dose: 1 amp Apixaban (Eliquis -) 5 mg PO BID [facility] Last Admin: 10/29/19 09:47 Dose: 5 mg Diltiazem HCl (Cardizem Injection -) 10 mg IVPUSH Q4H PRN PRN Reason: TACHYCARDIA Ferrous Sulfate (Feosol -) 325 mg PO DAILY [facility] Last Admin: 10/29/19 09:46 Dose: 325 mg Fluticasone Propionate (Flonase -) 1 spray NS DAILY [facility] Last Admin: 10/29/19 09:53 Dose: 1 spray Furosemide (Lasix -) 20 mg PO DAILY [facility] Last Admin: 10/28/19 09:09 Dose: 20 mg Ertapenem 1 gm/ Sodium (Chloride) 50 mls @ 100 mls/hr IVPB DAILY [facility] Last Admin: 10/29/19 10:00 Dose: Not Given Insulin Aspart (Novolog Vial Sliding Scale -) 1 vial SQ ACHS [facility]; Protocol Last Admin: 10/29/19 11:42 Dose: Not Given Latanoprost (Xalatan 0.005% Eye Drops -) 1 drop OD HS [facility] Last Admin: 10/28/19 22:42 Dose: 1 drop Metoprolol Tartrate (Lopressor -) 25 mg PO BID [facility] Last Admin: 10/29/19 10:00 Dose: Not Given Ondansetron HCl (Zofran Injection) 4 mg IVPUSH Q6H PRN PRN Reason: NAUSEA Last Admin: 10/29/19 02:05 Dose: 4 mg Pantoprazole Sodium (Protonix -) 20 mg PO DAILY [facility] Last Admin: 10/29/19 09:48 Dose: 20 mg Timolol Maleate (Timoptic 0.5%) 1 drop OU BID [facility] Last Admin: 10/29/19 09:52 Dose: 1 drop Valsartan (Diovan -) 40 mg NGT DAILY [facility] Last Admin: 10/29/19 11:41 Dose: Not Given - Objective Vital Signs: Vital Signs Temperature 99.7 F H 10/29/19 10:00 Pulse Rate 53 L 10/29/19 11:00 Respiratory Rate 22 H 10/29/19 11:00 Blood Pressure 96/43 L 10/29/19 11:00 O2 Sat by Pulse Oximetry (%) 95 10/29/19 10:00 Constitutional: Yes: No Distress, Calm Neck: Yes: Supple Cardiovascular: Yes: Pulse Irregular Respiratory: Yes: Regular, Diminished, On Nasal O2 Gastrointestinal: Yes: Normal Bowel Sounds, Soft, Abdomen, Obese Edema: No Labs: CBC, BMP 10/28/19 05:50 10/28/19 05:50 INR, PTT INR 1.19 (0.83-1.09) H 10/16/19 06:05 - ....Imaging EKG: Report Reviewed (Tele: Rate-controlled afib) Assessment/Plan 10/12/2019 Echo: Normal LV size and fxn LVEF 55-60%, mild LAE, mild MR, TR, AR Problem List - Problems (1) Afib Code(s): I48.91 - UNSPECIFIED ATRIAL FIBRILLATION Qualifiers: Atrial fibrillation type: chronic (2) Anemia Code(s): D64.9 - ANEMIA, UNSPECIFIED (3) Glaucoma Code(s): H40.9 - UNSPECIFIED GLAUCOMA (4) Hyperthyroidism Code(s): E05.90 - THYROTOXICOSIS, UNSP WITHOUT THYROTOXIC CRISIS OR STORM (5) New onset atrial fibrillation Code(s): I48.91 - UNSPECIFIED ATRIAL FIBRILLATION (6) S/P left hemicolectomy Code(s): Z90.49 - ACQUIRED ABSENCE OF OTHER SPECIFIED PARTS OF DIGESTIVE TRACT (7) Acute on chronic diastolic (congestive) heart failure Code(s): I50.33 - ACUTE ON CHRONIC DIASTOLIC (CONGESTIVE) HEART FAILURE (8) Asthma Code(s): J45.909 - UNSPECIFIED ASTHMA, UNCOMPLICATED Qualifiers: Asthma severity: mild Asthma persistence: intermittent Asthma complication type: unspecified Qualified Code(s): J45.20 - Mild intermittent asthma, uncomplicated (9) CAD (coronary artery disease) Code(s): I25.10 - ATHSCL HEART DISEASE OF [place] CORONARY ARTERY W/O ANG PCTRS Qualifiers: Coronary Disease-Associated Artery/Lesion type: [place] artery [place] vs. transplanted heart: [place] heart Associated angina: without angina Qualified Code(s): I25.10 - Atherosclerotic heart disease of [place] coronary artery without angina pectoris (10) HTN (hypertension) Code(s): I10 - ESSENTIAL (PRIMARY) HYPERTENSION Qualifiers: Hypertension type: essential hypertension Qualified Code(s): I10 - Essential (primary) hypertension (11) Parkinson disease Code(s): G20 - PARKINSON'S DISEASE Assessment/Plan 1. s/p acute respiratory failure, currently stable 2. Post abdominal hernia repair complicated by small bowel resection and mesh placement 3. Persistent atrial Fibrillation [id number] score of 5 4. Diastolic LV dysfunction with clinical class 0 NYHA classification LV failure , generalized edema 5. HTN 6. DM 7. Hyperthyroidism 8. Acute renal insufficiency 9. Hematuria, resolved 10. History of cervical carcinoma post resection 11. History of colon carcinoma post javi-colectomy 12. Left hand hematoma PLAN: 1. IV Cardizem as needed for rate control 2. Lopressor 25 bid and Diovan 40 qd, Lasix 20 qd 3. Eliquis 5 bid given resolved hematuria 4. Completed empiric antibiotic course, BD, O2 as needed 5. Conservative management of left hand hematoma 6. PT->SNF 7. F/u abd/pelvic CT results
--- NOTE | 2019-10-29 13:33 | PN ---
Progress Note, Physician History of Present Illness: AWAKE IN BED NO COMPLAINTS TEMP ELEVATION 102.6 NOTED WBC WNL REPEAT BC PENDING - Current Medication List Current Medications: Active Medications Acetaminophen (Tylenol -) 650 mg PO Q6H PRN PRN Reason: FEVER Last Admin: 10/29/19 00:10 Dose: 650 mg Albuterol Sulfate (Ventolin 0.083% Nebulizer Soln -) 1 amp NEB Q6H PRN PRN Reason: SHORT OF BREATH/WHEEZING Last Admin: 10/25/19 20:10 Dose: 1 amp Apixaban (Eliquis -) 5 mg PO BID [facility] Last Admin: 10/29/19 09:47 Dose: 5 mg Diltiazem HCl (Cardizem Injection -) 10 mg IVPUSH Q4H PRN PRN Reason: TACHYCARDIA Ferrous Sulfate (Feosol -) 325 mg PO DAILY [facility] Last Admin: 10/29/19 09:46 Dose: 325 mg Fluticasone Propionate (Flonase -) 1 spray NS DAILY [facility] Last Admin: 10/29/19 09:53 Dose: 1 spray Furosemide (Lasix -) 20 mg PO DAILY [facility] Last Admin: 10/28/19 09:09 Dose: 20 mg Ertapenem 1 gm/ Sodium (Chloride) 50 mls @ 100 mls/hr IVPB DAILY [facility] Last Admin: 10/29/19 10:00 Dose: Not Given Insulin Aspart (Novolog Vial Sliding Scale -) 1 vial SQ ACHS [facility]; Protocol Last Admin: 10/29/19 11:42 Dose: Not Given Latanoprost (Xalatan 0.005% Eye Drops -) 1 drop OD HS [facility] Last Admin: 10/28/19 22:42 Dose: 1 drop Metoprolol Tartrate (Lopressor -) 25 mg PO BID [facility] Last Admin: 10/29/19 10:00 Dose: Not Given Ondansetron HCl (Zofran Injection) 4 mg IVPUSH Q6H PRN PRN Reason: NAUSEA Last Admin: 10/29/19 02:05 Dose: 4 mg Pantoprazole Sodium (Protonix -) 20 mg PO DAILY [facility] Last Admin: 10/29/19 09:48 Dose: 20 mg Timolol Maleate (Timoptic 0.5%) 1 drop OU BID [facility] Last Admin: 10/29/19 09:52 Dose: 1 drop Valsartan (Diovan -) 40 mg NGT DAILY [facility] Last Admin: 10/29/19 11:41 Dose: Not Given - Objective Vital Signs: Vital Signs Temperature 99.7 F H 10/29/19 10:00 Pulse Rate 55 L 10/29/19 12:00 Respiratory Rate 24 H 10/29/19 12:00 Blood Pressure 95/62 10/29/19 12:00 O2 Sat by Pulse Oximetry (%) 95 10/29/19 10:00 Constitutional: Yes: No Distress Eyes: Yes: Conjunctiva Clear Cardiovascular: Yes: Regular Rate and Rhythm, S1, S2 Respiratory: Yes: Diminished Gastrointestinal: Yes: Normal Bowel Sounds, Soft, Other (SURGICAL WOUND NO ERYTHEMA/ DRAINAGE) Extremities: No: Calf Tenderness Labs: CBC, BMP 10/28/19 05:50 10/28/19 05:50 INR, PTT INR 1.19 (0.83-1.09) H 10/16/19 06:05 Assessment/Plan HIGH GRADE FEVER ? SOURCE ASYMPTOMATIC BACTERURIA S/P INCISIONAL HERNIA REPAIR SOURCE OF FEVER UNCLEAR AWAIT C/S, CT ABDO/PELVIS CONTINUE ERTEPENEM EMPIRICALLY
[2019-10-29] MEDS: FUROSEMIDE 20 MG TABLET (FP) PO SCH (15:05)
[2019-10-29] MEDS: LATANOPROST 0.005% OPHTH SOLN 2.5ML BOTTLE OD SCH (21:11)
[2019-10-30] MEDS: INSULIN SLIDING SCALE (NOVOLOG) 1 VIAL SQ SCH ×4 (06:24→23:58)
[2019-10-30 06:30] LABS: BASO % 0.6 % (0-2.0); EOS % 0.5 % (0-4.5); HEMATOCRIT 28.1 % (32.4-45.2); HEMOGLOBIN 9.2 GM/dL (10.7-15.3); LYMPH % 16.9 % (8-40); MCH 28.5 pg (25.7-33.7); MCHC 32.8 g/dl (32.0-36.0); MEAN PLT VOLUME 8.5 fl (7.5-11.1); PLATELET COUNT 280 K/MM3 (134-434); RBC 3.23 M/mm3 (3.60-5.2)
[2019-10-30 06:46] LABS: ALBUMIN 1.8 g/dl (3.4-5.0); BILIRUBIN,TOTAL 0.5 mg/dL (0.2-1); BLOOD UREA NITROGEN 15.8 mg/dL (7-18); CALCIUM 8.1 mg/dL (8.5-10.1); CREATININE 0.7 mg/dL (0.55-1.3); POTASSIUM 3.9 mmol/L (3.5-5.1); TOT PROT 4.8 g/dl (6.4-8.2)
[2019-10-30] MEDS ORDERED: PT OWN MED DRAWER 7, Y5N ONE ×2 (09:16→20:53)
[2019-10-30] MEDS: METOPROLOL TARTRATE 25 MG TABLET (FP) PO SCH ×2 (09:22→23:57)
[2019-10-30] MEDS: FERROUS SO4 325 MG TABLET (FP) PO SCH (09:22)
[2019-10-30] MEDS: PANTOPRAZOLE 20 MG TABLET (FP) PO SCH (09:22)
[2019-10-30] MEDS: FLUTICASONE PROP 0.05% 16 GM NASAL SPRAY NS SCH (09:23)
[2019-10-30] MEDS: FUROSEMIDE 20 MG TABLET (FP) PO SCH (09:23)
[2019-10-30] MEDS: ERTAPENEM SODIUM 1 GM in SODIUM CHLORIDE 50 ML IVPB SCH (09:51)
[2019-10-30] MEDS: TIMOLOL 0.5% OPHTHALMIC SOL 5 ML BOTTLE OU SCH ×2 (09:53→23:58)
--- NOTE | 2019-10-30 11:10 | PN ---
Progress Note, Physician Chief Complaint: Events noted Surgery input noted regarding recommendation for IR drainage History of Present Illness: Patient was seen and examined. Awake. Chart was reviewed AF with variable HR - Rate controlled As outlined - Current Medication List Current Medications: Active Medications Acetaminophen (Tylenol -) 650 mg PO Q6H PRN PRN Reason: FEVER Last Admin: 10/29/19 15:07 Dose: 650 mg Albuterol Sulfate (Ventolin 0.083% Nebulizer Soln -) 1 amp NEB Q6H PRN PRN Reason: SHORT OF BREATH/WHEEZING Last Admin: 10/25/19 20:10 Dose: 1 amp Apixaban (Eliquis -) 5 mg PO BID [facility] Last Admin: 10/29/19 09:47 Dose: 5 mg Diltiazem HCl (Cardizem Injection -) 10 mg IVPUSH Q4H PRN PRN Reason: TACHYCARDIA Ferrous Sulfate (Feosol -) 325 mg PO DAILY [facility] Last Admin: 10/30/19 09:22 Dose: 325 mg Fluticasone Propionate (Flonase -) 1 spray NS DAILY [facility] Last Admin: 10/30/19 09:23 Dose: 1 spray Furosemide (Lasix -) 20 mg PO DAILY [facility] Last Admin: 10/30/19 09:23 Dose: 20 mg Ertapenem 1 gm/ Sodium (Chloride) 50 mls @ 100 mls/hr IVPB DAILY [facility] Last Admin: 10/30/19 09:51 Dose: 100 mls/hr Insulin Aspart (Novolog Vial Sliding Scale -) 1 vial SQ ACHS [facility]; Protocol Last Admin: 10/30/19 06:24 Dose: Not Given Latanoprost (Xalatan 0.005% Eye Drops -) 1 drop OD HS [facility] Last Admin: 10/29/19 21:11 Dose: 1 drop Metoprolol Tartrate (Lopressor -) 25 mg PO BID [facility] Last Admin: 10/30/19 09:22 Dose: 25 mg Ondansetron HCl (Zofran Injection) 4 mg IVPUSH Q6H PRN PRN Reason: NAUSEA Last Admin: 10/29/19 21:00 Dose: 4 mg Pantoprazole Sodium (Protonix -) 20 mg PO DAILY [facility] Last Admin: 10/30/19 09:22 Dose: 20 mg Timolol Maleate (Timoptic 0.5%) 1 drop OU BID [facility] Last Admin: 10/30/19 09:53 Dose: 1 drop - Objective Vital Signs: Vital Signs Temperature 99.4 F 10/30/19 06:00 Pulse Rate 87 10/30/19 06:00 Respiratory Rate 26 H 10/30/19 08:45 Blood Pressure 101/44 L 10/30/19 06:00 O2 Sat by Pulse Oximetry (%) 96 10/30/19 08:45 Neck: Yes: Supple Cardiovascular: Yes: Pulse Irregular, S1, S2 Gastrointestinal: Yes: Other (Post op) Edema: No Additional Findings/Remarks: Review of Systems Constitutional: denies: Chills or Fever Cardiovascular: denies: chest pain, SOB Respiratory: denies: SOB, cough Gastrointestinal: denies: Nausea, Vomiting, Diarrhea, Constipation or Abdominal Pain Genitourinary: denies: Dysuria Musculoskeletal: denies: Joint Pain Neurological: denies: Dizziness or Headache Labs: CBC, BMP 10/30/19 05:30 10/30/19 05:30 Problem List - Problems (1) Afib Code(s): I48.91 - UNSPECIFIED ATRIAL FIBRILLATION Qualifiers: Atrial fibrillation type: permanent Qualified Code(s): I48.21 - Permanent atrial fibrillation (2) Anemia Code(s): D64.9 - ANEMIA, UNSPECIFIED (3) Glaucoma Code(s): H40.9 - UNSPECIFIED GLAUCOMA (4) Hyperthyroidism Code(s): E05.90 - THYROTOXICOSIS, UNSP WITHOUT THYROTOXIC CRISIS OR STORM (5) S/P left hemicolectomy Code(s): Z90.49 - ACQUIRED ABSENCE OF OTHER SPECIFIED PARTS OF DIGESTIVE TRACT (6) Acute on chronic diastolic (congestive) heart failure Code(s): I50.33 - ACUTE ON CHRONIC DIASTOLIC (CONGESTIVE) HEART FAILURE (7) Asthma Code(s): J45.909 - UNSPECIFIED ASTHMA, UNCOMPLICATED Qualifiers: Asthma severity: mild Asthma persistence: intermittent Asthma complication type: unspecified Qualified Code(s): J45.20 - Mild intermittent asthma, uncomplicated (8) CAD (coronary artery disease) Code(s): I25.10 - ATHSCL HEART DISEASE OF [place] CORONARY ARTERY W/O ANG PCTRS Qualifiers: Coronary Disease-Associated Artery/Lesion type: [place] artery [place] vs. transplanted heart: [place] heart Associated angina: without angina Qualified Code(s): I25.10 - Atherosclerotic heart disease of [place] coronary artery without angina pectoris (9) HTN (hypertension) Code(s): I10 - ESSENTIAL (PRIMARY) HYPERTENSION Qualifiers: Hypertension type: essential hypertension Qualified Code(s): I10 - Essential (primary) hypertension (10) Parkinson disease Code(s): G20 - PARKINSON'S DISEASE Assessment/Plan 1. Post acute respiratory failure, currently stable 2. Post abdominal hernia repair complicated by small bowel resection and mesh placement 3. Persistent atrial Fibrillation [id number] score of 5 4. Diastolic LV dysfunction with clinical class 0 NYHA classification LV failure , generalized edema 5. HTN 6. DM 7. Hyperthyroidism 8. Acute renal insufficiency 9. Hematuria, resolved 10. History of cervical carcinoma post resection 11. History of colon carcinoma post javi-colectomy 12. Left hand hematoma PLAN: 1. Continue Lopressor 25 mg BID, Diovan 40 mg QD and Lasix 20 mg QD 2. Continue Eliquis 5 mg BID 3. Surgery input noted. Post Abdominal CT. Await IR drain Further plans are to follow Johann Cowan MD
--- NOTE | 2019-10-30 11:40 | PN ---
Progress Note (short form) - Note Progress Note: PULMONARY Abdominal wall collection noted on CT A/P. For IR drainage. Vital Signs Period Temp Pulse Resp BP Sys/Ugarte Pulse Ox Last 24 Hr 99.3 F-102.4 F 55-93 24-32 82-119/44-95 96-96 Gen: NAD at rest Heart: RRR Lung: decreased breath sounds at the bases Abd: soft, nontender Ext: no edema CBC, BMP 10/30/19 05:30 10/30/19 05:30 Active Medications Acetaminophen (Tylenol -) 650 mg PO Q6H PRN PRN Reason: FEVER Last Admin: 10/29/19 15:07 Dose: 650 mg Albuterol Sulfate (Ventolin 0.083% Nebulizer Soln -) 1 amp NEB Q6H PRN PRN Reason: SHORT OF BREATH/WHEEZING Last Admin: 10/25/19 20:10 Dose: 1 amp Apixaban (Eliquis -) 5 mg PO BID [facility] Last Admin: 10/29/19 09:47 Dose: 5 mg Diltiazem HCl (Cardizem Injection -) 10 mg IVPUSH Q4H PRN PRN Reason: TACHYCARDIA Ferrous Sulfate (Feosol -) 325 mg PO DAILY [facility] Last Admin: 10/30/19 09:22 Dose: 325 mg Fluticasone Propionate (Flonase -) 1 spray NS DAILY [facility] Last Admin: 10/30/19 09:23 Dose: 1 spray Furosemide (Lasix -) 20 mg PO DAILY [facility] Last Admin: 10/30/19 09:23 Dose: 20 mg Ertapenem 1 gm/ Sodium (Chloride) 50 mls @ 100 mls/hr IVPB DAILY [facility] Last Admin: 10/30/19 09:51 Dose: 100 mls/hr Insulin Aspart (Novolog Vial Sliding Scale -) 1 vial SQ ACHS [facility]; Protocol Last Admin: 10/30/19 06:24 Dose: Not Given Latanoprost (Xalatan 0.005% Eye Drops -) 1 drop OD HS [facility] Last Admin: 10/29/19 21:11 Dose: 1 drop Metoprolol Tartrate (Lopressor -) 25 mg PO BID [facility] Last Admin: 10/30/19 09:22 Dose: 25 mg Ondansetron HCl (Zofran Injection) 4 mg IVPUSH Q6H PRN PRN Reason: NAUSEA Last Admin: 10/29/19 21:00 Dose: 4 mg Pantoprazole Sodium (Protonix -) 20 mg PO DAILY [facility] Last Admin: 10/30/19 09:22 Dose: 20 mg Timolol Maleate (Timoptic 0.5%) 1 drop OU BID [facility] Last Admin: 10/30/19 09:53 Dose: 1 drop A/P s/p Incisional Hernia Repair with mesh/SB resection s/p Acute Respiratory Failure Atrial Fibrillation HTN DM Hyperthyroidism h/o Colon Ca h/o Cervical Ca Anemia - for IR drainage - continue antibiotics - pain control - rate control - continue anticoagulation - PO per surgery
--- NOTE | 2019-10-30 14:14 | PN ---
Progress Note, Physician Chief Complaint: CT c/w anterior wall abdominal hematoma needs nicholas d/w surgery dr Alvarado who spoke with IR; anthony held no fever now no pain - Current Medication List Current Medications: Active Medications Acetaminophen (Tylenol -) 650 mg PO Q6H PRN PRN Reason: FEVER Last Admin: 10/29/19 15:07 Dose: 650 mg Albuterol Sulfate (Ventolin 0.083% Nebulizer Soln -) 1 amp NEB Q6H PRN PRN Reason: SHORT OF BREATH/WHEEZING Last Admin: 10/25/19 20:10 Dose: 1 amp Apixaban (Eliquis -) 5 mg PO BID [facility] Last Admin: 10/29/19 09:47 Dose: 5 mg Diltiazem HCl (Cardizem Injection -) 10 mg IVPUSH Q4H PRN PRN Reason: TACHYCARDIA Ferrous Sulfate (Feosol -) 325 mg PO DAILY [facility] Last Admin: 10/30/19 09:22 Dose: 325 mg Fluticasone Propionate (Flonase -) 1 spray NS DAILY [facility] Last Admin: 10/30/19 09:23 Dose: 1 spray Furosemide (Lasix -) 20 mg PO DAILY [facility] Last Admin: 10/30/19 09:23 Dose: 20 mg Ertapenem 1 gm/ Sodium (Chloride) 50 mls @ 100 mls/hr IVPB DAILY [facility] Last Admin: 10/30/19 09:51 Dose: 100 mls/hr Insulin Aspart (Novolog Vial Sliding Scale -) 1 vial SQ ACHS [facility]; Protocol Last Admin: 10/30/19 13:24 Dose: Not Given Latanoprost (Xalatan 0.005% Eye Drops -) 1 drop OD HS [facility] Last Admin: 10/29/19 21:11 Dose: 1 drop Metoprolol Tartrate (Lopressor -) 25 mg PO BID [facility] Last Admin: 10/30/19 09:22 Dose: 25 mg Ondansetron HCl (Zofran Injection) 4 mg IVPUSH Q6H PRN PRN Reason: NAUSEA Last Admin: 10/29/19 21:00 Dose: 4 mg Pantoprazole Sodium (Protonix -) 20 mg PO DAILY [facility] Last Admin: 10/30/19 09:22 Dose: 20 mg Timolol Maleate (Timoptic 0.5%) 1 drop OU BID [facility] Last Admin: 10/30/19 09:53 Dose: 1 drop - Objective Vital Signs: Vital Signs Temperature 99.4 F 10/30/19 06:00 Pulse Rate 91 H 10/30/19 12:13 Respiratory Rate 27 H 10/30/19 12:13 Blood Pressure 111/56 L 10/30/19 12:13 O2 Sat by Pulse Oximetry (%) 97 10/30/19 12:13 Constitutional: Yes: No Distress, Calm Eyes: Yes: Conjunctiva Clear HENT: Yes: Atraumatic Neck: Yes: Supple Cardiovascular: No: Regular Rate and Rhythm Respiratory: Yes: Diminished Gastrointestinal: Yes: Soft. No: Tenderness Genitourinary: No: Hematuria Musculoskeletal: No: Joint Stiffness, Joint Swelling Extremities: No: Cold, Cool Edema: No Integumentary: No: Rash, Venous Stasis Changes Neurological: Yes: Alert ...Motor Strength: WNL Psychiatric: Yes: Alert. No: Agitated Labs: CBC, BMP 10/30/19 05:30 10/30/19 05:30 INR, PTT INR 1.19 (0.83-1.09) H 10/16/19 06:05 Assessment/Plan 83 yo F h/of Colon Ca (s/p Hemicolectomy, 02/2019), HTN, HLD, Afib ( on Eliquis) , Diastolic CHF, HLD, Hyperthyroidism s/p hernia repair, adhesions, s/p incidental enterotomy and partial small bowel resection / reanastomosis and mesh placement; surgery f/u hold eliquis for abdominal wall collection IR drainage L hand small hematoma improving fever: ATB per ID, borderline low BP cont metoprolol, DC ARB, cardio f/u DVT PFX, decubs, aspiration PFX; f/u labs; I/O Graham; incentive spirometry, bedside PT; will need SNF d.w staff d/w pt called pt's daughter
--- NOTE | 2019-10-30 14:57 | PN ---
Progress Note (short form) - Note Progress Note: GENERAL SURGERY Reviewed IR note --> 10Fr drain inserted. 150 mL purulent fluid. Culture sent. Cont IV ABX as per ID. Await C&S. Eliquis to resume tonight (ordered) Sodium Controlled Diet ordered Problem List - Problems (1) S/P repair of ventral hernia Code(s): Z98.890 - OTHER SPECIFIED POSTPROCEDURAL STATES; Z87.19 - PERSONAL HISTORY OF OTHER DISEASES OF THE DIGESTIVE SYSTEM (2) Obesity (BMI 30-39.9) Code(s): E66.9 - OBESITY, UNSPECIFIED (3) CVA (cerebral vascular accident) Code(s): I63.9 - CEREBRAL INFARCTION, UNSPECIFIED Qualifiers: CVA mechanism: unspecified Qualified Code(s): I63.9 - Cerebral infarction, unspecified (4) HTN (hypertension) Code(s): I10 - ESSENTIAL (PRIMARY) HYPERTENSION Qualifiers: Hypertension type: essential hypertension Qualified Code(s): I10 - Essential (primary) hypertension (5) Obesity (BMI 35.0-39.9 without comorbidity) Code(s): E66.9 - OBESITY, UNSPECIFIED
[2019-10-30] MEDS: ALBUTEROL SO4 0.083% IH SOL 2.5 MG/3 ML VIAL.NEB. NEB PRN (18:26)
[2019-10-30] MEDS: APIXABAN 5 MG TABLET PO SCH (23:57)
[2019-10-30] MEDS: LATANOPROST 0.005% OPHTH SOLN 2.5ML BOTTLE OD SCH (23:58)
[2019-10-31] MEDS: INSULIN SLIDING SCALE (NOVOLOG) 1 VIAL SQ SCH ×4 (06:52→22:14)
[2019-10-31 07:48] LABS: BASO % 0.4 % (0-2.0); EOS % 3.7 % (0-4.5); HEMATOCRIT 28.4 % (32.4-45.2); HEMOGLOBIN 9.3 GM/dL (10.7-15.3); LYMPH % 25.2 % (8-40); MCH 28.7 pg (25.7-33.7); MCHC 32.8 g/dl (32.0-36.0); MEAN CELL VOLUME 87.4 fl (80-96); MEAN PLT VOLUME 8.4 fl (7.5-11.1); NEUT % 56.7 % (42.8-82.8); PLATELET COUNT 366 K/MM3 (134-434); RBC 3.25 M/mm3 (3.60-5.2); WHITE BLOOD COUNT 4.8 K/mm3 (4.0-10.0)
--- NOTE | 2019-10-31 08:05 | PN ---
Progress Note (short form) - Note Progress Note: GENERAL SURGERY Day #1 s/p IR drain (abd abscess) POD #23 s/p incisional hernia repair w/ Phasix mesh and sb resection Alert. Resting comfortably. Daughter at bedside. Feels much better. Tolerating reg diet. Denies n/v/f/c, CP, SOB Last Vital Signs Temp Pulse Resp BP Pulse Ox 98.1 F 124 (afib) 22 H 99/64 97 10/31/19 06:00 10/31/19 06:00 10/31/19 03:00 10/31/19 03:00 10/30/19 21:00 Microbiology 10/30/19 12:00 Abscess QUINCY Preparation - Preliminary 10/30/19 12:00 Abscess Fungal Culture - Preliminary PE Gen: nad ABD: steri strips intact. Drain 300 mL seropurulent LE: SCDs bilat. Soft. All compartments soft. Problem List - Problems (1) S/P repair of ventral hernia Assessment/Plan: Monitor record drain ouput q shift CBC in AM OOB to chair with assist Reg diet ID following Code(s): Z98.890 - OTHER SPECIFIED POSTPROCEDURAL STATES; Z87.19 - PERSONAL HISTORY OF OTHER DISEASES OF THE DIGESTIVE SYSTEM (2) Obesity (BMI 30-39.9) Code(s): E66.9 - OBESITY, UNSPECIFIED (3) CVA (cerebral vascular accident) Code(s): I63.9 - CEREBRAL INFARCTION, UNSPECIFIED Qualifiers: CVA mechanism: unspecified Qualified Code(s): I63.9 - Cerebral infarction, unspecified (4) HTN (hypertension) Code(s): I10 - ESSENTIAL (PRIMARY) HYPERTENSION Qualifiers: Hypertension type: essential hypertension Qualified Code(s): I10 - Essential (primary) hypertension (5) Obesity (BMI 35.0-39.9 without comorbidity) Code(s): E66.9 - OBESITY, UNSPECIFIED
--- NOTE | 2019-10-31 08:23 | PN ---
Progress Note, Physician Chief Complaint: in bed s/p abscess drainage on IV ATB per ID afebrile no pain NAD VSS - Current Medication List Current Medications: Active Medications Acetaminophen (Tylenol -) 650 mg PO Q6H PRN PRN Reason: FEVER Last Admin: 10/29/19 15:07 Dose: 650 mg Albuterol Sulfate (Ventolin 0.083% Nebulizer Soln -) 1 amp NEB Q6H PRN PRN Reason: SHORT OF BREATH/WHEEZING Last Admin: 10/30/19 18:26 Dose: 1 amp Apixaban (Eliquis -) 5 mg PO BID [facility] Last Admin: 10/30/19 23:57 Dose: 5 mg Diltiazem HCl (Cardizem Injection -) 10 mg IVPUSH Q4H PRN PRN Reason: TACHYCARDIA Ferrous Sulfate (Feosol -) 325 mg PO DAILY [facility] Last Admin: 10/30/19 09:22 Dose: 325 mg Fluticasone Propionate (Flonase -) 1 spray NS DAILY [facility] Last Admin: 10/30/19 09:23 Dose: 1 spray Furosemide (Lasix -) 20 mg PO DAILY [facility] Last Admin: 10/30/19 09:23 Dose: 20 mg Ertapenem 1 gm/ Sodium (Chloride) 50 mls @ 100 mls/hr IVPB DAILY [facility] Last Admin: 10/30/19 09:51 Dose: 100 mls/hr Insulin Aspart (Novolog Vial Sliding Scale -) 1 vial SQ ACHS [facility]; Protocol Last Admin: 10/31/19 06:52 Dose: Not Given Latanoprost (Xalatan 0.005% Eye Drops -) 1 drop OD HS [facility] Last Admin: 10/30/19 23:58 Dose: 1 drop Metoprolol Tartrate (Lopressor -) 25 mg PO BID [facility] Last Admin: 10/30/19 23:57 Dose: Not Given Ondansetron HCl (Zofran Injection) 4 mg IVPUSH Q6H PRN PRN Reason: NAUSEA Last Admin: 10/29/19 21:00 Dose: 4 mg Pantoprazole Sodium (Protonix -) 20 mg PO DAILY [facility] Last Admin: 10/30/19 09:22 Dose: 20 mg Timolol Maleate (Timoptic 0.5%) 1 drop OU BID [facility] Last Admin: 10/30/19 23:58 Dose: 1 drop - Objective Vital Signs: Vital Signs Temperature 98.1 F 10/31/19 06:00 Pulse Rate 124 H 10/31/19 06:00 Respiratory Rate 22 H 10/31/19 03:00 Blood Pressure 99/64 10/31/19 03:00 O2 Sat by Pulse Oximetry (%) 97 10/30/19 21:00 Constitutional: Yes: No Distress Eyes: Yes: Conjunctiva Clear HENT: Yes: Atraumatic Neck: Yes: Supple Cardiovascular: No: Regular Rate and Rhythm Respiratory: Yes: Diminished Gastrointestinal: Yes: Soft. No: Tenderness Genitourinary: No: Hematuria Musculoskeletal: No: Joint Stiffness, Joint Swelling Extremities: No: Cold, Cool Edema: No Integumentary: No: Rash, Venous Stasis Changes Neurological: Yes: Alert ...Motor Strength: WNL Psychiatric: Yes: Alert. No: Agitated, Suicidal Ideation Labs: CBC, BMP 10/31/19 06:15 INR, PTT INR 1.19 (0.83-1.09) H 10/16/19 06:05 - ....Imaging Other: Report Reviewed Assessment/Plan 83 yo F h/of Colon Ca (s/p Hemicolectomy, 02/2019), HTN, HLD, Afib ( on Eliquis) , Diastolic CHF, HLD, Hyperthyroidism s/p hernia repair, adhesions, s/p incidental enterotomy and partial small bowel resection / reanastomosis and mesh placement; surgery f/u hold eliquis s/p abdominal wall collection IR drainage L hand small hematoma improving fever: ATB per ID, borderline low BP cont metoprolol, DC ARB, cardio f/u DVT PFX, decubs, aspiration PFX; f/u labs; I/O Graham; incentive spirometry, bedside PT; d.w staff d/w pt
[2019-10-31 08:29] LABS: ALBUMIN 1.8 g/dl (3.4-5.0); BILIRUBIN,TOTAL 0.4 mg/dL (0.2-1); BLOOD UREA NITROGEN 17.8 mg/dL (7-18); CREATININE 0.7 mg/dL (0.55-1.3); POTASSIUM 4.4 mmol/L (3.5-5.1); TOT PROT 4.6 g/dl (6.4-8.2)
[2019-10-31] MEDS ORDERED: PT OWN MED DRAWER 7, Y5N ONE (09:33)
[2019-10-31] MEDS: FERROUS SO4 325 MG TABLET (FP) PO SCH (09:55)
[2019-10-31] MEDS: PANTOPRAZOLE 20 MG TABLET (FP) PO SCH (09:55)
[2019-10-31] MEDS: ERTAPENEM SODIUM 1 GM in SODIUM CHLORIDE 50 ML IVPB SCH (09:55)
[2019-10-31] MEDS: APIXABAN 5 MG TABLET PO SCH ×2 (09:55→22:14)
[2019-10-31] MEDS: FLUTICASONE PROP 0.05% 16 GM NASAL SPRAY NS SCH (09:56)
[2019-10-31] MEDS: FUROSEMIDE 20 MG TABLET (FP) PO SCH (09:56)
[2019-10-31] MEDS: METOPROLOL TARTRATE 25 MG TABLET (FP) PO SCH ×2 (09:57→22:13)
[2019-10-31] MEDS: TIMOLOL 0.5% OPHTHALMIC SOL 5 ML BOTTLE OU SCH ×2 (10:04→22:18)
--- NOTE | 2019-10-31 10:30 | PN ---
Progress Note, Physician History of Present Illness: Hemodynamics stable with rate-controlled afib. No further fevers after IR drainage of anterior abd wall fluid collection. - Current Medication List Current Medications: Active Medications Acetaminophen (Tylenol -) 650 mg PO Q6H PRN PRN Reason: FEVER Last Admin: 10/29/19 15:07 Dose: 650 mg Albuterol Sulfate (Ventolin 0.083% Nebulizer Soln -) 1 amp NEB Q6H PRN PRN Reason: SHORT OF BREATH/WHEEZING Last Admin: 10/30/19 18:26 Dose: 1 amp Apixaban (Eliquis -) 5 mg PO BID [facility] Last Admin: 10/31/19 09:55 Dose: 5 mg Diltiazem HCl (Cardizem Injection -) 10 mg IVPUSH Q4H PRN PRN Reason: TACHYCARDIA Ferrous Sulfate (Feosol -) 325 mg PO DAILY [facility] Last Admin: 10/31/19 09:55 Dose: 325 mg Fluticasone Propionate (Flonase -) 1 spray NS DAILY [facility] Last Admin: 10/31/19 09:56 Dose: 1 spray Furosemide (Lasix -) 20 mg PO DAILY [facility] Last Admin: 10/31/19 09:56 Dose: 20 mg Ertapenem 1 gm/ Sodium (Chloride) 50 mls @ 100 mls/hr IVPB DAILY [facility] Last Admin: 10/31/19 09:55 Dose: 100 mls/hr Insulin Aspart (Novolog Vial Sliding Scale -) 1 vial SQ ACHS [facility]; Protocol Last Admin: 10/31/19 06:52 Dose: Not Given Latanoprost (Xalatan 0.005% Eye Drops -) 1 drop OD HS [facility] Last Admin: 10/30/19 23:58 Dose: 1 drop Metoprolol Tartrate (Lopressor -) 25 mg PO BID [facility] Last Admin: 10/31/19 09:57 Dose: Not Given Ondansetron HCl (Zofran Injection) 4 mg IVPUSH Q6H PRN PRN Reason: NAUSEA Last Admin: 10/29/19 21:00 Dose: 4 mg Pantoprazole Sodium (Protonix -) 20 mg PO DAILY [facility] Last Admin: 10/31/19 09:55 Dose: 20 mg Timolol Maleate (Timoptic 0.5%) 1 drop OU BID [facility] Last Admin: 10/31/19 10:04 Dose: 1 drop - Objective Vital Signs: Vital Signs Temperature 99 F 10/31/19 10:00 Pulse Rate 104 H 10/31/19 10:00 Respiratory Rate 19 10/31/19 10:00 Blood Pressure 99/59 L 10/31/19 10:00 O2 Sat by Pulse Oximetry (%) 98 10/31/19 09:00 Constitutional: Yes: No Distress, Calm Neck: Yes: Supple Cardiovascular: Yes: Pulse Irregular Respiratory: Yes: Regular, Diminished Gastrointestinal: Yes: Soft, Hypoactive Bowel Sounds Edema: No Labs: CBC, BMP 10/31/19 06:15 10/31/19 06:15 INR, PTT INR 1.19 (0.83-1.09) H 10/16/19 06:05 Assessment/Plan 10/12/2019 Echo: Normal LV size and fxn LVEF 55-60%, mild LAE, mild MR, TR, AR Problem List - Problems (1) Afib Code(s): I48.91 - UNSPECIFIED ATRIAL FIBRILLATION Qualifiers: Atrial fibrillation type: chronic (2) Anemia Code(s): D64.9 - ANEMIA, UNSPECIFIED (3) Glaucoma Code(s): H40.9 - UNSPECIFIED GLAUCOMA (4) Hyperthyroidism Code(s): E05.90 - THYROTOXICOSIS, UNSP WITHOUT THYROTOXIC CRISIS OR STORM (5) New onset atrial fibrillation Code(s): I48.91 - UNSPECIFIED ATRIAL FIBRILLATION (6) S/P left hemicolectomy Code(s): Z90.49 - ACQUIRED ABSENCE OF OTHER SPECIFIED PARTS OF DIGESTIVE TRACT (7) Acute on chronic diastolic (congestive) heart failure Code(s): I50.33 - ACUTE ON CHRONIC DIASTOLIC (CONGESTIVE) HEART FAILURE (8) Asthma Code(s): J45.909 - UNSPECIFIED ASTHMA, UNCOMPLICATED Qualifiers: Asthma severity: mild Asthma persistence: intermittent Asthma complication type: unspecified Qualified Code(s): J45.20 - Mild intermittent asthma, uncomplicated (9) CAD (coronary artery disease) Code(s): I25.10 - ATHSCL HEART DISEASE OF [place] CORONARY ARTERY W/O ANG PCTRS Qualifiers: Coronary Disease-Associated Artery/Lesion type: [place] artery [place] vs. transplanted heart: [place] heart Associated angina: without angina Qualified Code(s): I25.10 - Atherosclerotic heart disease of [place] coronary artery without angina pectoris (10) HTN (hypertension) Code(s): I10 - ESSENTIAL (PRIMARY) HYPERTENSION Qualifiers: Hypertension type: essential hypertension Qualified Code(s): I10 - Essential (primary) hypertension (11) Parkinson disease Code(s): G20 - PARKINSON'S DISEASE Assessment/Plan 1. s/p acute respiratory failure, currently stable 2. Post abdominal hernia repair complicated by small bowel resection and mesh placement, s/p IR drain (anterior abd wall abscess) 3. Persistent atrial Fibrillation [id number] score of 5 4. Diastolic LV dysfunction with clinical class 0 NYHA classification LV failure , generalized edema 5. HTN 6. DM 7. Hyperthyroidism 8. Acute renal insufficiency 9. Hematuria, resolved 10. History of cervical carcinoma post resection 11. History of colon carcinoma post javi-colectomy 12. Left hand hematoma PLAN: 1. IV Cardizem as needed for rate control 2. Lopressor 25 bid and Lasix 20 qd 3. Resumed Eliquis 5 bid 4. Complete antibiotic course, BD, O2 as needed 5. Conservative management of left hand hematoma 6. PT->SNF 7. Drain management
--- NOTE | 2019-10-31 12:17 | PN ---
Progress Note (short form) - Note Progress Note: PULMONARY s/p CT guided drainage of abdominal wall collection with purulent drainage. Fever curve trending down. Vital Signs Period Temp Pulse Resp BP Sys/Ugarte Pulse Ox Last 24 Hr 98.1 F-99.7 F 85-124 19-25 81-116/50-68 97-98 Gen: NAD at rest Heart: RRR Lung: decreased breath sounds at the bases Abd: soft, nontender Ext: no edema CBC, BMP 10/31/19 06:15 10/31/19 06:15 Active Medications Acetaminophen (Tylenol -) 650 mg PO Q6H PRN PRN Reason: FEVER Last Admin: 10/29/19 15:07 Dose: 650 mg Albuterol Sulfate (Ventolin 0.083% Nebulizer Soln -) 1 amp NEB Q6H PRN PRN Reason: SHORT OF BREATH/WHEEZING Last Admin: 10/30/19 18:26 Dose: 1 amp Apixaban (Eliquis -) 5 mg PO BID [facility] Last Admin: 10/31/19 09:55 Dose: 5 mg Diltiazem HCl (Cardizem Injection -) 10 mg IVPUSH Q4H PRN PRN Reason: TACHYCARDIA Ferrous Sulfate (Feosol -) 325 mg PO DAILY [facility] Last Admin: 10/31/19 09:55 Dose: 325 mg Fluticasone Propionate (Flonase -) 1 spray NS DAILY [facility] Last Admin: 10/31/19 09:56 Dose: 1 spray Furosemide (Lasix -) 20 mg PO DAILY [facility] Last Admin: 10/31/19 09:56 Dose: 20 mg Ertapenem 1 gm/ Sodium (Chloride) 50 mls @ 100 mls/hr IVPB DAILY [facility] Last Admin: 10/31/19 09:55 Dose: 100 mls/hr Insulin Aspart (Novolog Vial Sliding Scale -) 1 vial SQ ACHS [facility]; Protocol Last Admin: 10/31/19 11:36 Dose: 2 units Latanoprost (Xalatan 0.005% Eye Drops -) 1 drop OD HS [facility] Last Admin: 10/30/19 23:58 Dose: 1 drop Metoprolol Tartrate (Lopressor -) 25 mg PO BID [facility] Last Admin: 10/31/19 09:57 Dose: Not Given Ondansetron HCl (Zofran Injection) 4 mg IVPUSH Q6H PRN PRN Reason: NAUSEA Last Admin: 10/29/19 21:00 Dose: 4 mg Pantoprazole Sodium (Protonix -) 20 mg PO DAILY [facility] Last Admin: 10/31/19 09:55 Dose: 20 mg Timolol Maleate (Timoptic 0.5%) 1 drop OU BID [facility] Last Admin: 10/31/19 10:04 Dose: 1 drop A/P s/p Incisional Hernia Repair with mesh/SB resection s/p Acute Respiratory Failure Atrial Fibrillation HTN DM Hyperthyroidism h/o Colon Ca h/o Cervical Ca Anemia - continue antibiotics - f/u cultures - pain control - rate control - continue anticoagulation - PO per surgery
[2019-10-31] MEDS: LATANOPROST 0.005% OPHTH SOLN 2.5ML BOTTLE OD SCH (22:18)
--- NOTE | 2019-10-31 23:27 | PN ---
Progress Note, Physician History of Present Illness: AWAKE IN BED NO COMPLAINTS S/P IR DRAINAGE ABDOMINAL FLUID COLLECTION TEMPS DOWN WBC WNL REPEAT BC NO GROWTH FLUID C/S NLF - Current Medication List Current Medications: Active Medications Acetaminophen (Tylenol -) 650 mg PO Q6H PRN PRN Reason: FEVER Last Admin: 10/29/19 15:07 Dose: 650 mg Albuterol Sulfate (Ventolin 0.083% Nebulizer Soln -) 1 amp NEB Q6H PRN PRN Reason: SHORT OF BREATH/WHEEZING Last Admin: 10/30/19 18:26 Dose: 1 amp Apixaban (Eliquis -) 5 mg PO BID [facility] Last Admin: 10/31/19 22:14 Dose: 5 mg Diltiazem HCl (Cardizem Injection -) 10 mg IVPUSH Q4H PRN PRN Reason: TACHYCARDIA Ferrous Sulfate (Feosol -) 325 mg PO DAILY [facility] Last Admin: 10/31/19 09:55 Dose: 325 mg Fluticasone Propionate (Flonase -) 1 spray NS DAILY [facility] Last Admin: 10/31/19 09:56 Dose: 1 spray Furosemide (Lasix -) 20 mg PO DAILY [facility] Last Admin: 10/31/19 09:56 Dose: 20 mg Ertapenem 1 gm/ Sodium (Chloride) 50 mls @ 100 mls/hr IVPB DAILY [facility] Last Admin: 10/31/19 09:55 Dose: 100 mls/hr Insulin Aspart (Novolog Vial Sliding Scale -) 1 vial SQ ACHS [facility]; Protocol Last Admin: 10/31/19 22:14 Dose: Not Given Latanoprost (Xalatan 0.005% Eye Drops -) 1 drop OD HS [facility] Last Admin: 10/31/19 22:18 Dose: 1 drop Metoprolol Tartrate (Lopressor -) 25 mg PO BID [facility] Last Admin: 10/31/19 22:13 Dose: Not Given Ondansetron HCl (Zofran Injection) 4 mg IVPUSH Q6H PRN PRN Reason: NAUSEA Last Admin: 10/29/19 21:00 Dose: 4 mg Pantoprazole Sodium (Protonix -) 20 mg PO DAILY [facility] Last Admin: 10/31/19 09:55 Dose: 20 mg Timolol Maleate (Timoptic 0.5%) 1 drop OU BID [facility] Last Admin: 10/31/19 22:18 Dose: 1 drop - Objective Vital Signs: Vital Signs Temperature 97.9 F 10/31/19 18:00 Pulse Rate 97 H 10/31/19 18:00 Respiratory Rate 19 10/31/19 18:00 Blood Pressure 106/62 10/31/19 18:00 O2 Sat by Pulse Oximetry (%) 98 10/31/19 09:00 Constitutional: Yes: No Distress Eyes: Yes: Conjunctiva Clear Cardiovascular: Yes: Regular Rate and Rhythm, S1, S2 Respiratory: Yes: CTA Bilaterally Gastrointestinal: Yes: Normal Bowel Sounds, Soft Labs: CBC, BMP 10/31/19 06:15 10/31/19 06:15 INR, PTT INR 1.19 (0.83-1.09) H 10/16/19 06:05 Assessment/Plan S/P IR DRAINAGE ABDOMINAL FLUID COLLECTION S/P INCISIONAL HERNIA REPAIR CONTINUE ERTEPENEM PENDING C/S RESULTS
[2019-11-01] MEDS: INSULIN SLIDING SCALE (NOVOLOG) 1 VIAL SQ SCH ×4 (07:29→22:22)
--- NOTE | 2019-11-01 08:44 | PN ---
Progress Note, Physician History of Present Illness: Hemodynamics stable with rate-controlled afib. No further fevers after IR drainage of anterior abd wall fluid collection. - Current Medication List Current Medications: Active Medications Acetaminophen (Tylenol -) 650 mg PO Q6H PRN PRN Reason: FEVER Last Admin: 10/29/19 15:07 Dose: 650 mg Albuterol Sulfate (Ventolin 0.083% Nebulizer Soln -) 1 amp NEB Q6H PRN PRN Reason: SHORT OF BREATH/WHEEZING Last Admin: 10/30/19 18:26 Dose: 1 amp Apixaban (Eliquis -) 5 mg PO BID [facility] Last Admin: 10/31/19 22:14 Dose: 5 mg Diltiazem HCl (Cardizem Injection -) 10 mg IVPUSH Q4H PRN PRN Reason: TACHYCARDIA Ferrous Sulfate (Feosol -) 325 mg PO DAILY [facility] Last Admin: 10/31/19 09:55 Dose: 325 mg Fluticasone Propionate (Flonase -) 1 spray NS DAILY [facility] Last Admin: 10/31/19 09:56 Dose: 1 spray Furosemide (Lasix -) 20 mg PO DAILY [facility] Last Admin: 10/31/19 09:56 Dose: 20 mg Ertapenem 1 gm/ Sodium (Chloride) 50 mls @ 100 mls/hr IVPB DAILY [facility] Last Admin: 10/31/19 09:55 Dose: 100 mls/hr Insulin Aspart (Novolog Vial Sliding Scale -) 1 vial SQ ACHS [facility]; Protocol Last Admin: 11/01/19 07:29 Dose: Not Given Latanoprost (Xalatan 0.005% Eye Drops -) 1 drop OD HS [facility] Last Admin: 10/31/19 22:18 Dose: 1 drop Metoprolol Tartrate (Lopressor -) 25 mg PO BID [facility] Last Admin: 10/31/19 22:13 Dose: Not Given Ondansetron HCl (Zofran Injection) 4 mg IVPUSH Q6H PRN PRN Reason: NAUSEA Last Admin: 10/29/19 21:00 Dose: 4 mg Pantoprazole Sodium (Protonix -) 20 mg PO DAILY [facility] Last Admin: 10/31/19 09:55 Dose: 20 mg Timolol Maleate (Timoptic 0.5%) 1 drop OU BID [facility] Last Admin: 10/31/19 22:18 Dose: 1 drop - Objective Vital Signs: Vital Signs Temperature 98.2 F 11/01/19 02:00 Pulse Rate 87 11/01/19 06:00 Respiratory Rate 17 11/01/19 06:00 Blood Pressure 97/62 11/01/19 06:00 O2 Sat by Pulse Oximetry (%) 99 10/31/19 21:00 Constitutional: Yes: No Distress, Calm Neck: Yes: Supple Cardiovascular: Yes: Pulse Irregular Respiratory: Yes: Regular, Diminished Gastrointestinal: Yes: Normal Bowel Sounds, Soft, Abdomen, Obese, Other (Abd wall drain in place) Edema: No Labs: CBC, BMP 10/31/19 06:15 10/31/19 06:15 INR, PTT INR 1.19 (0.83-1.09) H 10/16/19 06:05 Assessment/Plan 10/12/2019 Echo: Normal LV size and fxn LVEF 55-60%, mild LAE, mild MR, TR, AR Problem List - Problems (1) Afib Code(s): I48.91 - UNSPECIFIED ATRIAL FIBRILLATION Qualifiers: Atrial fibrillation type: chronic (2) Anemia Code(s): D64.9 - ANEMIA, UNSPECIFIED (3) Glaucoma Code(s): H40.9 - UNSPECIFIED GLAUCOMA (4) Hyperthyroidism Code(s): E05.90 - THYROTOXICOSIS, UNSP WITHOUT THYROTOXIC CRISIS OR STORM (5) New onset atrial fibrillation Code(s): I48.91 - UNSPECIFIED ATRIAL FIBRILLATION (6) S/P left hemicolectomy Code(s): Z90.49 - ACQUIRED ABSENCE OF OTHER SPECIFIED PARTS OF DIGESTIVE TRACT (7) Acute on chronic diastolic (congestive) heart failure Code(s): I50.33 - ACUTE ON CHRONIC DIASTOLIC (CONGESTIVE) HEART FAILURE (8) Asthma Code(s): J45.909 - UNSPECIFIED ASTHMA, UNCOMPLICATED Qualifiers: Asthma severity: mild Asthma persistence: intermittent Asthma complication type: unspecified Qualified Code(s): J45.20 - Mild intermittent asthma, uncomplicated (9) CAD (coronary artery disease) Code(s): I25.10 - ATHSCL HEART DISEASE OF [place] CORONARY ARTERY W/O ANG PCTRS Qualifiers: Coronary Disease-Associated Artery/Lesion type: [place] artery [place] vs. transplanted heart: [place] heart Associated angina: without angina Qualified Code(s): I25.10 - Atherosclerotic heart disease of [place] coronary artery without angina pectoris (10) HTN (hypertension) Code(s): I10 - ESSENTIAL (PRIMARY) HYPERTENSION Qualifiers: Hypertension type: essential hypertension Qualified Code(s): I10 - Essential (primary) hypertension (11) Parkinson disease Code(s): G20 - PARKINSON'S DISEASE Assessment/Plan 1. s/p acute respiratory failure, currently stable 2. Post abdominal hernia repair complicated by small bowel resection and mesh placement, s/p IR drain of anterior abd wall abscess 3. Persistent atrial Fibrillation [id number] score of 5 4. Diastolic LV dysfunction with clinical class 0 NYHA classification LV failure , generalized edema 5. HTN 6. DM 7. Hyperthyroidism 8. Acute renal insufficiency 9. Hematuria, resolved 10. History of cervical carcinoma post resection 11. History of colon carcinoma post javi-colectomy 12. Left hand hematoma PLAN: 1. IV Cardizem as needed for rate control 2. Lopressor 25 bid and Lasix 20 qd 3. Continue Eliquis 5 bid 4. Complete antibiotic course per C&S, BD, O2 as needed 5. Conservative management of left hand hematoma 6. PT->SNF 7. Drain management
--- NOTE | 2019-11-01 08:46 | PN ---
Progress Note, Physician Chief Complaint: awake alert NAD VSS no pain afebrile - Current Medication List Current Medications: Active Medications Acetaminophen (Tylenol -) 650 mg PO Q6H PRN PRN Reason: FEVER Last Admin: 10/29/19 15:07 Dose: 650 mg Albuterol Sulfate (Ventolin 0.083% Nebulizer Soln -) 1 amp NEB Q6H PRN PRN Reason: SHORT OF BREATH/WHEEZING Last Admin: 10/30/19 18:26 Dose: 1 amp Apixaban (Eliquis -) 5 mg PO BID [facility] Last Admin: 10/31/19 22:14 Dose: 5 mg Diltiazem HCl (Cardizem Injection -) 10 mg IVPUSH Q4H PRN PRN Reason: TACHYCARDIA Ferrous Sulfate (Feosol -) 325 mg PO DAILY [facility] Last Admin: 10/31/19 09:55 Dose: 325 mg Fluticasone Propionate (Flonase -) 1 spray NS DAILY [facility] Last Admin: 10/31/19 09:56 Dose: 1 spray Furosemide (Lasix -) 20 mg PO DAILY [facility] Last Admin: 10/31/19 09:56 Dose: 20 mg Ertapenem 1 gm/ Sodium (Chloride) 50 mls @ 100 mls/hr IVPB DAILY [facility] Last Admin: 10/31/19 09:55 Dose: 100 mls/hr Insulin Aspart (Novolog Vial Sliding Scale -) 1 vial SQ ACHS [facility]; Protocol Last Admin: 11/01/19 07:29 Dose: Not Given Latanoprost (Xalatan 0.005% Eye Drops -) 1 drop OD HS [facility] Last Admin: 10/31/19 22:18 Dose: 1 drop Metoprolol Tartrate (Lopressor -) 25 mg PO BID [facility] Last Admin: 10/31/19 22:13 Dose: Not Given Ondansetron HCl (Zofran Injection) 4 mg IVPUSH Q6H PRN PRN Reason: NAUSEA Last Admin: 10/29/19 21:00 Dose: 4 mg Pantoprazole Sodium (Protonix -) 20 mg PO DAILY [facility] Last Admin: 10/31/19 09:55 Dose: 20 mg Timolol Maleate (Timoptic 0.5%) 1 drop OU BID [facility] Last Admin: 10/31/19 22:18 Dose: 1 drop - Objective Vital Signs: Vital Signs Temperature 98.2 F 11/01/19 02:00 Pulse Rate 87 11/01/19 06:00 Respiratory Rate 17 11/01/19 06:00 Blood Pressure 97/62 11/01/19 06:00 O2 Sat by Pulse Oximetry (%) 99 10/31/19 21:00 Constitutional: Yes: No Distress Eyes: Yes: Conjunctiva Clear HENT: Yes: Atraumatic Neck: Yes: Supple Cardiovascular: No: Regular Rate and Rhythm Respiratory: Yes: CTA Bilaterally Gastrointestinal: Yes: Soft. No: Tenderness Musculoskeletal: No: Joint Stiffness, Joint Swelling Extremities: No: Cold, Cool Edema: No Integumentary: No: Rash, Venous Stasis Changes Neurological: Yes: Alert ...Motor Strength: WNL Psychiatric: Yes: Alert. No: Agitated, Suicidal Ideation Labs: CBC, BMP 10/31/19 06:15 10/31/19 06:15 INR, PTT INR 1.19 (0.83-1.09) H 10/16/19 06:05 - ....Imaging Other: Report Reviewed Assessment/Plan 83 yo F h/of Colon Ca (s/p Hemicolectomy, 02/2019), HTN, HLD, Afib ( on Eliquis) , Diastolic CHF, HLD, Hyperthyroidism s/p hernia repair, adhesions, s/p incidental enterotomy and partial small bowel resection / reanastomosis and mesh placement; surgery f/u restart eliquis - s/p abdominal wall collection IR drainage fever: ATB per ID, f/u abcess cultures stable BP cont metoprolol, cardio f/u DVT PFX, decubs, aspiration PFX; f/u labs; I/O Graham; incentive spirometry, bedside PT; d.w staff d/w pt
[2019-11-01] MEDS: FLUTICASONE PROP 0.05% 16 GM NASAL SPRAY NS SCH (10:53)
[2019-11-01] MEDS: TIMOLOL 0.5% OPHTHALMIC SOL 5 ML BOTTLE OU SCH ×2 (10:54→22:27)
--- NOTE | 2019-11-01 10:57 | PN ---
Progress Note, Physician History of Present Illness: AWAKE IN BED NO COMPLAINTS S/P IR DRAINAGE ABDOMINAL FLUID COLLECTION TEMPS DOWN WBC WNL REPEAT BC NO GROWTH FLUID C/S NLF - Current Medication List Current Medications: Active Medications Acetaminophen (Tylenol -) 650 mg PO Q6H PRN PRN Reason: FEVER Last Admin: 10/29/19 15:07 Dose: 650 mg Albuterol Sulfate (Ventolin 0.083% Nebulizer Soln -) 1 amp NEB Q6H PRN PRN Reason: SHORT OF BREATH/WHEEZING Last Admin: 10/30/19 18:26 Dose: 1 amp Apixaban (Eliquis -) 5 mg PO BID [facility] Last Admin: 10/31/19 22:14 Dose: 5 mg Diltiazem HCl (Cardizem Injection -) 10 mg IVPUSH Q4H PRN PRN Reason: TACHYCARDIA Ferrous Sulfate (Feosol -) 325 mg PO DAILY [facility] Last Admin: 10/31/19 09:55 Dose: 325 mg Fluticasone Propionate (Flonase -) 1 spray NS DAILY [facility] Last Admin: 10/31/19 09:56 Dose: 1 spray Furosemide (Lasix -) 20 mg PO DAILY [facility] Last Admin: 10/31/19 09:56 Dose: 20 mg Ertapenem 1 gm/ Sodium (Chloride) 50 mls @ 100 mls/hr IVPB DAILY [facility] Last Admin: 10/31/19 09:55 Dose: 100 mls/hr Insulin Aspart (Novolog Vial Sliding Scale -) 1 vial SQ ACHS [facility]; Protocol Last Admin: 11/01/19 07:29 Dose: Not Given Latanoprost (Xalatan 0.005% Eye Drops -) 1 drop OD HS [facility] Last Admin: 10/31/19 22:18 Dose: 1 drop Metoprolol Tartrate (Lopressor -) 25 mg PO BID [facility] Last Admin: 10/31/19 22:13 Dose: Not Given Ondansetron HCl (Zofran Injection) 4 mg IVPUSH Q6H PRN PRN Reason: NAUSEA Last Admin: 10/29/19 21:00 Dose: 4 mg Pantoprazole Sodium (Protonix -) 20 mg PO DAILY [facility] Last Admin: 10/31/19 09:55 Dose: 20 mg Timolol Maleate (Timoptic 0.5%) 1 drop OU BID [facility] Last Admin: 10/31/19 22:18 Dose: 1 drop - Objective Vital Signs: Vital Signs Temperature 98.2 F 11/01/19 02:00 Pulse Rate 87 11/01/19 06:00 Respiratory Rate 17 11/01/19 06:00 Blood Pressure 97/62 11/01/19 06:00 O2 Sat by Pulse Oximetry (%) 99 10/31/19 21:00 Constitutional: Yes: No Distress, Obese Cardiovascular: Yes: Regular Rate and Rhythm, S1, S2 Respiratory: Yes: Diminished Gastrointestinal: Yes: Normal Bowel Sounds, Soft, Other (SURGICAL WOUND INTACT + ABDOMINAL DRAIN). No: Tenderness Edema: No Labs: CBC, BMP 10/31/19 06:15 10/31/19 06:15 INR, PTT INR 1.19 (0.83-1.09) H 10/16/19 06:05 Assessment/Plan S/P IR DRAINAGE ABDOMINAL FLUID COLLECTION S/P INCISIONAL HERNIA REPAIR CONTINUE ERTEPENEM PENDING C/S RESULTS
[2019-11-01] MEDS: METOPROLOL TARTRATE 25 MG TABLET (FP) PO SCH ×2 (11:00→22:22)
[2019-11-01] MEDS: PANTOPRAZOLE 20 MG TABLET (FP) PO SCH (11:00)
[2019-11-01] MEDS: FUROSEMIDE 20 MG TABLET (FP) PO SCH (11:00)
[2019-11-01] MEDS ORDERED: PT OWN MED DRAWER 7, Y5N ONE (11:00)
[2019-11-01] MEDS: FERROUS SO4 325 MG TABLET (FP) PO SCH (11:00)
[2019-11-01] MEDS: ERTAPENEM SODIUM 1 GM in SODIUM CHLORIDE 50 ML IVPB SCH (11:00)
[2019-11-01] MEDS: APIXABAN 5 MG TABLET PO SCH ×2 (11:00→22:21)
--- NOTE | 2019-11-01 12:18 | PN ---
Progress Note (short form) - Note Progress Note: PULMONARY No further fevers. Vital Signs Period Temp Pulse Resp BP Sys/Ugarte Pulse Ox Last 24 Hr 97.9 F-98.2 F 82-97 17-21 90-114/49-70 95-99 Gen: NAD at rest Heart: RRR Lung: decreased breath sounds at the bases Abd: soft, nontender Ext: no edema CBC, BMP 10/31/19 06:15 10/31/19 06:15 Active Medications Acetaminophen (Tylenol -) 650 mg PO Q6H PRN PRN Reason: FEVER Last Admin: 10/29/19 15:07 Dose: 650 mg Albuterol Sulfate (Ventolin 0.083% Nebulizer Soln -) 1 amp NEB Q6H PRN PRN Reason: SHORT OF BREATH/WHEEZING Last Admin: 10/30/19 18:26 Dose: 1 amp Apixaban (Eliquis -) 5 mg PO BID [facility] Last Admin: 11/01/19 11:00 Dose: 5 mg Diltiazem HCl (Cardizem Injection -) 10 mg IVPUSH Q4H PRN PRN Reason: TACHYCARDIA Ferrous Sulfate (Feosol -) 325 mg PO DAILY [facility] Last Admin: 11/01/19 11:00 Dose: 325 mg Fluticasone Propionate (Flonase -) 1 spray NS DAILY [facility] Last Admin: 11/01/19 10:53 Dose: 1 spray Furosemide (Lasix -) 20 mg PO DAILY [facility] Last Admin: 11/01/19 11:00 Dose: 20 mg Ertapenem 1 gm/ Sodium (Chloride) 50 mls @ 100 mls/hr IVPB DAILY [facility] Last Admin: 11/01/19 11:00 Dose: 100 mls/hr Insulin Aspart (Novolog Vial Sliding Scale -) 1 vial SQ ACHS [facility]; Protocol Last Admin: 11/01/19 07:29 Dose: Not Given Latanoprost (Xalatan 0.005% Eye Drops -) 1 drop OD HS [facility] Last Admin: 10/31/19 22:18 Dose: 1 drop Metoprolol Tartrate (Lopressor -) 25 mg PO BID [facility] Last Admin: 11/01/19 11:00 Dose: 25 mg Ondansetron HCl (Zofran Injection) 4 mg IVPUSH Q6H PRN PRN Reason: NAUSEA Last Admin: 10/29/19 21:00 Dose: 4 mg Pantoprazole Sodium (Protonix -) 20 mg PO DAILY [facility] Last Admin: 11/01/19 11:00 Dose: 20 mg Timolol Maleate (Timoptic 0.5%) 1 drop OU BID [facility] Last Admin: 11/01/19 10:54 Dose: 1 drop A/P s/p Incisional Hernia Repair with mesh/SB resection Abdominal Wall Abscess s/p CT guided drainage s/p Acute Respiratory Failure Atrial Fibrillation LV Diastolic Dysfunction HTN DM Hyperthyroidism h/o Colon Ca h/o Cervical Ca Anemia - continue antibiotics - f/u cultures - pain control - rate control - continue anticoagulation - PO per surgery
--- NOTE | 2019-11-01 14:19 | PN ---
Progress Note (short form) - Note Progress Note: Day #2 s/p IR drain (abd abscess) POD #24 s/p incisional hernia repair w/ Phasix mesh and sb resection Patient seen and examined at bedside with no complaints. Patient denies any pain , CP, SOB, Fever, or N/V. She is tolerating her diet. Vital Signs Temp 98.6 F 11/01/19 13:35 Pulse 94 H 11/01/19 13:35 Resp 21 H 11/01/19 13:35 BP 120/70 11/01/19 13:35 Pulse Ox 95 11/01/19 10:00 Intake & Output 10/31/19 11/01/19 11/01/19 23:59 11:59 23:59 Output Total 20 Balance -20 Output: Drainage 20 left abdomen wound drain 20 Other: Voiding Method Incontinent Incontinent # Unmeasured Voids Void 2 1 Bowel Movement No No CBC, BMP 10/31/19 06:15 10/31/19 06:15 Microbiology 10/30/19 12:00 Abscess Gram Stain - Final 10/30/19 12:00 Abscess Body Fluid Culture - Preliminary Non Lactose Fermenting Gnb Group D Strep Or Entero Coccus 10/30/19 12:00 Abscess Anaerobic Culture - Preliminary Pending Organism 10/28/19 18:40 Blood - Peripheral Venous Blood Culture - Preliminary NO GROWTH OBTAINED AFTER 72 HOURS, INCUBATION TO CONTINUE FOR 2 DAYS. 10/28/19 18:15 Blood - Peripheral Venous Blood Culture - Preliminary NO GROWTH OBTAINED AFTER 72 HOURS, INCUBATION TO CONTINUE FOR 2 DAYS. PE Gen: A&Ox3, NAD ABD: Obese, soft, ND with mild TTP throughout appropriate to status. steri strips intact. Drain secure with seropurulent d/c LE: SCDs bilat. Soft. All compartments soft. Problem List - Problems (1) S/P repair of ventral hernia Assessment/Plan: Patient doing well. Monitor record drain output q shift Trend labs OOB to chair with assist Reg diet ID following Code(s): Z98.890 - OTHER SPECIFIED POSTPROCEDURAL STATES; Z87.19 - PERSONAL HISTORY OF OTHER DISEASES OF THE DIGESTIVE SYSTEM
[2019-11-01] MEDS: LATANOPROST 0.005% OPHTH SOLN 2.5ML BOTTLE OD SCH (22:27)
--- NOTE | 2019-11-02 06:17 | PN ---
Progress Note, Physician Chief Complaint: consults appreciated; afebrile no pain ate better - Current Medication List Current Medications: Active Medications Acetaminophen (Tylenol -) 650 mg PO Q6H PRN PRN Reason: FEVER Last Admin: 10/29/19 15:07 Dose: 650 mg Albuterol Sulfate (Ventolin 0.083% Nebulizer Soln -) 1 amp NEB Q6H PRN PRN Reason: SHORT OF BREATH/WHEEZING Last Admin: 10/30/19 18:26 Dose: 1 amp Apixaban (Eliquis -) 5 mg PO BID [facility] Last Admin: 11/01/19 22:21 Dose: 5 mg Diltiazem HCl (Cardizem Injection -) 10 mg IVPUSH Q4H PRN PRN Reason: TACHYCARDIA Ferrous Sulfate (Feosol -) 325 mg PO DAILY [facility] Last Admin: 11/01/19 11:00 Dose: 325 mg Fluticasone Propionate (Flonase -) 1 spray NS DAILY [facility] Last Admin: 11/01/19 10:53 Dose: 1 spray Furosemide (Lasix -) 20 mg PO DAILY [facility] Last Admin: 11/01/19 11:00 Dose: 20 mg Ertapenem 1 gm/ Sodium (Chloride) 50 mls @ 100 mls/hr IVPB DAILY [facility] Last Admin: 11/01/19 11:00 Dose: 100 mls/hr Insulin Aspart (Novolog Vial Sliding Scale -) 1 vial SQ ACHS [facility]; Protocol Last Admin: 11/01/19 22:22 Dose: Not Given Latanoprost (Xalatan 0.005% Eye Drops -) 1 drop OD HS [facility] Last Admin: 11/01/19 22:27 Dose: 1 drop Metoprolol Tartrate (Lopressor -) 25 mg PO BID [facility] Last Admin: 11/01/19 22:22 Dose: Not Given Ondansetron HCl (Zofran Injection) 4 mg IVPUSH Q6H PRN PRN Reason: NAUSEA Last Admin: 10/29/19 21:00 Dose: 4 mg Pantoprazole Sodium (Protonix -) 20 mg PO DAILY [facility] Last Admin: 11/01/19 11:00 Dose: 20 mg Timolol Maleate (Timoptic 0.5%) 1 drop OU BID [facility] Last Admin: 11/01/19 22:27 Dose: 1 drop - Objective Vital Signs: Vital Signs Temperature 98.6 F 11/02/19 02:00 Pulse Rate 90 11/02/19 04:44 Respiratory Rate 16 11/02/19 04:44 Blood Pressure 117/66 11/02/19 04:44 O2 Sat by Pulse Oximetry (%) 95 11/01/19 10:00 Constitutional: Yes: No Distress, Calm Eyes: Yes: Conjunctiva Clear HENT: Yes: Atraumatic Neck: Yes: Supple Cardiovascular: No: Regular Rate and Rhythm Respiratory: Yes: Diminished Gastrointestinal: Yes: Soft, Other (drain / abscess in). No: Tenderness Genitourinary: No: Hematuria Musculoskeletal: No: Joint Stiffness, Joint Swelling Extremities: No: Cold, Cool, Cyanosis Edema: No Integumentary: No: Rash, Venous Stasis Changes Neurological: Yes: Alert ...Motor Strength: WNL Psychiatric: Yes: Alert. No: Agitated, Suicidal Ideation Labs: CBC, BMP 10/31/19 06:15 10/31/19 06:15 INR, PTT INR 1.19 (0.83-1.09) H 10/16/19 06:05 - ....Imaging Other: Report Reviewed Assessment/Plan 83 yo F h/of Colon Ca (s/p Hemicolectomy, 02/2019), HTN, HLD, Afib ( on Eliquis) , Diastolic CHF, HLD, Hyperthyroidism s/p hernia repair, adhesions, s/p incidental enterotomy and partial small bowel resection / reanastomosis and mesh placement; surgery f/u restart eliquis - s/p abdominal wall collection IR drainage fever: ATB per ID, f/u abcess cultures stable BP cont metoprolol, cardio f/u DVT PFX, decubs, aspiration PFX; f/u labs; I/O Graham; incentive spirometry, bedside PT; d.w staff d/w pt
[2019-11-02] MEDS: INSULIN SLIDING SCALE (NOVOLOG) 1 VIAL SQ SCH ×4 (06:35→23:14)
--- NOTE | 2019-11-02 09:11 | PN ---
Progress Note (short form) - Note Progress Note: GENERAL SURGERY Day #3 s/p IR drain (abd abscess) POD #25 s/p incisional hernia repair w/ Phasix mesh and sb resection Patient seen and examined at bedside with no complaints. No acute events per RN notes. Tolerating PO diet Denies n/v/f/c, CP, palpitations, SOB or FREITAS AVSS. Afeb. WBC TREND 3 10/26/19 10/28/19 10/30/19 10/31/19 06:13 05:50 05:30 WBC 11.3 H 7.1 5.0 4.8 LLQ IR Drain 3 10/30/19 10/31/19 11/01/19 11/02/19 15:00 06:00 06:00 06:00 Drain 200 100 20 15 Albumin Trend 3 10/24/19 10/25/19 10/28/19 10/31/19 05:25 05:25 05:50 06:15 Albumin 2.4 2.2 2.0 1.8 Microbiology 10/30/19 12:00 Abscess Body Fluid Culture - Non Lactose Fermenting Gnb; Group D Strep Or Entero Coccus 10/30/19 12:00 Abscess Anaerobic Culture - Preliminary Pending Organism PE Gen: nad ABD: steri strips intact. Drain to gravity (seropurulent) LE: SCDs bilat. Soft. NT Problem List - Problems (1) S/P repair of ventral hernia Assessment/Plan: Drain irrigated with 10cc sterile flush on rounds, will remain in through the weekend (will dc drain Tuesday) IV abx ID following Monitor/record drain output q shift OOB and ambulate w/ PT assist Nutrition Consult Above plan discussed with Dr. Alvarado and agrees. Code(s): Z98.890 - OTHER SPECIFIED POSTPROCEDURAL STATES; Z87.19 - PERSONAL HISTORY OF OTHER DISEASES OF THE DIGESTIVE SYSTEM (2) Obesity (BMI 30-39.9) Code(s): E66.9 - OBESITY, UNSPECIFIED (3) CVA (cerebral vascular accident) Code(s): I63.9 - CEREBRAL INFARCTION, UNSPECIFIED Qualifiers: CVA mechanism: unspecified Qualified Code(s): I63.9 - Cerebral infarction, unspecified (4) HTN (hypertension) Code(s): I10 - ESSENTIAL (PRIMARY) HYPERTENSION Qualifiers: Hypertension type: essential hypertension Qualified Code(s): I10 - Essential (primary) hypertension (5) Obesity (BMI 35.0-39.9 without comorbidity) Code(s): E66.9 - OBESITY, UNSPECIFIED
[2019-11-02] MEDS ORDERED: PT OWN MED DRAWER 7, Y5N ONE (09:25)
[2019-11-02] MEDS: ERTAPENEM SODIUM 1 GM in SODIUM CHLORIDE 50 ML IVPB SCH (09:37)
[2019-11-02] MEDS: FUROSEMIDE 20 MG TABLET (FP) PO SCH (09:38)
[2019-11-02] MEDS: PANTOPRAZOLE 20 MG TABLET (FP) PO SCH (09:38)
[2019-11-02] MEDS: FLUTICASONE PROP 0.05% 16 GM NASAL SPRAY NS SCH (09:38)
[2019-11-02] MEDS: FERROUS SO4 325 MG TABLET (FP) PO SCH (09:38)
[2019-11-02] MEDS: METOPROLOL TARTRATE 25 MG TABLET (FP) PO SCH ×2 (09:38→21:36)
[2019-11-02] MEDS: TIMOLOL 0.5% OPHTHALMIC SOL 5 ML BOTTLE OU SCH ×2 (09:38→23:02)
[2019-11-02] MEDS: APIXABAN 5 MG TABLET PO SCH ×2 (09:38→21:36)
--- NOTE | 2019-11-02 10:21 | PN ---
Progress Note, Physician History of Present Illness: Hemodynamics stable with rate-controlled afib. No further fevers after IR drainage of anterior abd wall fluid collection. - Current Medication List Current Medications: Active Medications Acetaminophen (Tylenol -) 650 mg PO Q6H PRN PRN Reason: FEVER Last Admin: 10/29/19 15:07 Dose: 650 mg Albuterol Sulfate (Ventolin 0.083% Nebulizer Soln -) 1 amp NEB Q6H PRN PRN Reason: SHORT OF BREATH/WHEEZING Last Admin: 10/30/19 18:26 Dose: 1 amp Apixaban (Eliquis -) 5 mg PO BID [facility] Last Admin: 11/02/19 09:38 Dose: 5 mg Diltiazem HCl (Cardizem Injection -) 10 mg IVPUSH Q4H PRN PRN Reason: TACHYCARDIA Ferrous Sulfate (Feosol -) 325 mg PO DAILY [facility] Last Admin: 11/02/19 09:38 Dose: 325 mg Fluticasone Propionate (Flonase -) 1 spray NS DAILY [facility] Last Admin: 11/02/19 09:38 Dose: 1 spray Furosemide (Lasix -) 20 mg PO DAILY [facility] Last Admin: 11/02/19 09:38 Dose: 20 mg Ertapenem 1 gm/ Sodium (Chloride) 50 mls @ 100 mls/hr IVPB DAILY [facility] Last Admin: 11/02/19 09:37 Dose: 100 mls/hr Insulin Aspart (Novolog Vial Sliding Scale -) 1 vial SQ ACHS [facility]; Protocol Last Admin: 11/02/19 06:35 Dose: Not Given Latanoprost (Xalatan 0.005% Eye Drops -) 1 drop OD HS [facility] Last Admin: 11/01/19 22:27 Dose: 1 drop Metoprolol Tartrate (Lopressor -) 25 mg PO BID [facility] Last Admin: 11/02/19 09:38 Dose: 25 mg Ondansetron HCl (Zofran Injection) 4 mg IVPUSH Q6H PRN PRN Reason: NAUSEA Last Admin: 10/29/19 21:00 Dose: 4 mg Pantoprazole Sodium (Protonix -) 20 mg PO DAILY [facility] Last Admin: 11/02/19 09:38 Dose: 20 mg Timolol Maleate (Timoptic 0.5%) 1 drop OU BID [facility] Last Admin: 11/02/19 09:38 Dose: 1 drop - Objective Vital Signs: Vital Signs Temperature 98.2 F 11/02/19 04:44 Pulse Rate 90 11/02/19 04:44 Respiratory Rate 16 11/02/19 04:44 Blood Pressure 117/66 11/02/19 04:44 O2 Sat by Pulse Oximetry (%) 95 11/01/19 10:00 Constitutional: Yes: No Distress, Calm Neck: Yes: Supple Cardiovascular: Yes: Pulse Irregular Respiratory: Yes: Regular, CTA Bilaterally Gastrointestinal: Yes: Normal Bowel Sounds, Soft, Abdomen, Obese, Other (Abd wall drain in place) Edema: No Labs: CBC, BMP 10/31/19 06:15 10/31/19 06:15 INR, PTT INR 1.19 (0.83-1.09) H 10/16/19 06:05 - ....Imaging EKG: Report Reviewed (Tele: DOMINIQUE with [facility]) Assessment/Plan 10/12/2019 Echo: Normal LV size and fxn LVEF 55-60%, mild LAE, mild MR, TR, AR Problem List - Problems (1) Afib Code(s): I48.91 - UNSPECIFIED ATRIAL FIBRILLATION Qualifiers: Atrial fibrillation type: chronic (2) Anemia Code(s): D64.9 - ANEMIA, UNSPECIFIED (3) Glaucoma Code(s): H40.9 - UNSPECIFIED GLAUCOMA (4) Hyperthyroidism Code(s): E05.90 - THYROTOXICOSIS, UNSP WITHOUT THYROTOXIC CRISIS OR STORM (5) New onset atrial fibrillation Code(s): I48.91 - UNSPECIFIED ATRIAL FIBRILLATION (6) S/P left hemicolectomy Code(s): Z90.49 - ACQUIRED ABSENCE OF OTHER SPECIFIED PARTS OF DIGESTIVE TRACT (7) Acute on chronic diastolic (congestive) heart failure Code(s): I50.33 - ACUTE ON CHRONIC DIASTOLIC (CONGESTIVE) HEART FAILURE (8) Asthma Code(s): J45.909 - UNSPECIFIED ASTHMA, UNCOMPLICATED Qualifiers: Asthma severity: mild Asthma persistence: intermittent Asthma complication type: unspecified Qualified Code(s): J45.20 - Mild intermittent asthma, uncomplicated (9) CAD (coronary artery disease) Code(s): I25.10 - ATHSCL HEART DISEASE OF [place] CORONARY ARTERY W/O ANG PCTRS Qualifiers: Coronary Disease-Associated Artery/Lesion type: [place] artery [place] vs. transplanted heart: [place] heart Associated angina: without angina Qualified Code(s): I25.10 - Atherosclerotic heart disease of [place] coronary artery without angina pectoris (10) HTN (hypertension) Code(s): I10 - ESSENTIAL (PRIMARY) HYPERTENSION Qualifiers: Hypertension type: essential hypertension Qualified Code(s): I10 - Essential (primary) hypertension (11) Parkinson disease Code(s): G20 - PARKINSON'S DISEASE Assessment/Plan 1. s/p acute respiratory failure, currently stable 2. Post abdominal hernia repair complicated by small bowel resection and mesh placement, s/p IR drain of anterior abd wall abscess 3. Persistent atrial Fibrillation [id number] score of 5 4. Diastolic LV dysfunction with clinical class 0 NYHA classification LV failure , generalized edema 5. HTN 6. DM 7. Hyperthyroidism 8. Acute renal insufficiency 9. Hematuria, resolved 10. History of cervical carcinoma post resection 11. History of colon carcinoma post javi-colectomy 12. Left hand hematoma PLAN: 1. IV Cardizem as needed for rate control 2. Lopressor 25 bid and Lasix 20 qd 3. Continue Eliquis 5 bid 4. Complete antibiotic course per C&S, BD, O2 as needed 5. Conservative management of left hand hematoma 6. PT->SNF 7. Drain for d/c Tuesday
[2019-11-02 15:03] VITALS: BMI 34.2
[2019-11-02] MEDS: LATANOPROST 0.005% OPHTH SOLN 2.5ML BOTTLE OD SCH (23:02)
[2019-11-03] MEDS: INSULIN SLIDING SCALE (NOVOLOG) 1 VIAL SQ SCH ×4 (06:01→21:57)
[2019-11-03 06:44] LABS: BASO % 0.6 % (0-2.0); EOS % 7.1 % (0-4.5); HEMOGLOBIN 9.6 GM/dL (10.7-15.3); LYMPH % 34.8 % (8-40); MCH 28.9 pg (25.7-33.7); MCHC 33.1 g/dl (32.0-36.0); MEAN CELL VOLUME 87.3 fl (80-96); MEAN PLT VOLUME 7.7 fl (7.5-11.1); MONO % 17.5 % (3.8-10.2); PLATELET COUNT 563 K/MM3 (134-434); RBC 3.32 M/mm3 (3.60-5.2); RDW 15.4 % (11.6-15.6); WHITE BLOOD COUNT 4.3 K/mm3 (4.0-10.0)
[2019-11-03 07:07] LABS: ALBUMIN 1.9 g/dl (3.4-5.0); BILIRUBIN,TOTAL 0.3 mg/dL (0.2-1); BLOOD UREA NITROGEN 9.9 mg/dL (7-18); CALCIUM 8.3 mg/dL (8.5-10.1); CREATININE 0.6 mg/dL (0.55-1.3); TOT PROT 4.6 g/dl (6.4-8.2)
--- NOTE | 2019-11-03 09:15 | PN ---
Progress Note, Physician History of Present Illness: AWAKE IN BED NO COMPLAINTS DENIES ABDOMINAL PAIN S/P IR DRAINAGE ABDOMINAL FLUID COLLECTION TEMPS DOWN WBC WNL REPEAT BC NO GROWTH FLUID C/S E COLI, VRE - Current Medication List Current Medications: Active Medications Acetaminophen (Tylenol -) 650 mg PO Q6H PRN PRN Reason: FEVER Last Admin: 10/29/19 15:07 Dose: 650 mg Albuterol Sulfate (Ventolin 0.083% Nebulizer Soln -) 1 amp NEB Q6H PRN PRN Reason: SHORT OF BREATH/WHEEZING Last Admin: 10/30/19 18:26 Dose: 1 amp Apixaban (Eliquis -) 5 mg PO BID [facility] Last Admin: 11/02/19 21:36 Dose: 5 mg Diltiazem HCl (Cardizem Injection -) 10 mg IVPUSH Q4H PRN PRN Reason: TACHYCARDIA Ferrous Sulfate (Feosol -) 325 mg PO DAILY [facility] Last Admin: 11/02/19 09:38 Dose: 325 mg Fluticasone Propionate (Flonase -) 1 spray NS DAILY [facility] Last Admin: 11/02/19 09:38 Dose: 1 spray Furosemide (Lasix -) 20 mg PO DAILY [facility] Last Admin: 11/02/19 09:38 Dose: 20 mg Ertapenem 1 gm/ Sodium (Chloride) 50 mls @ 100 mls/hr IVPB DAILY [facility] Last Admin: 11/02/19 09:37 Dose: 100 mls/hr Insulin Aspart (Novolog Vial Sliding Scale -) 1 vial SQ ACHS [facility]; Protocol Last Admin: 11/03/19 06:01 Dose: Not Given Latanoprost (Xalatan 0.005% Eye Drops -) 1 drop OD HS [facility] Last Admin: 11/02/19 23:02 Dose: 1 drop Metoprolol Tartrate (Lopressor -) 25 mg PO BID [facility] Last Admin: 11/02/19 21:36 Dose: 25 mg Ondansetron HCl (Zofran Injection) 4 mg IVPUSH Q6H PRN PRN Reason: NAUSEA Last Admin: 10/29/19 21:00 Dose: 4 mg Pantoprazole Sodium (Protonix -) 20 mg PO DAILY [facility] Last Admin: 11/02/19 09:38 Dose: 20 mg Timolol Maleate (Timoptic 0.5%) 1 drop OU BID [facility] Last Admin: 11/02/19 23:02 Dose: 1 drop - Objective Vital Signs: Vital Signs Temperature 98 F 11/03/19 06:10 Pulse Rate 78 11/03/19 08:00 Respiratory Rate 19 11/03/19 08:00 Blood Pressure 118/68 11/03/19 08:00 O2 Sat by Pulse Oximetry (%) 95 11/01/19 10:00 Constitutional: Yes: No Distress, Obese Cardiovascular: Yes: Regular Rate and Rhythm, S1, S2 Respiratory: Yes: CTA Bilaterally Gastrointestinal: Yes: Normal Bowel Sounds, Soft, Other (SURGICAL WOUND INTACT + DRAIN) Labs: CBC, BMP 11/03/19 05:30 11/03/19 05:30 INR, PTT INR 1.19 (0.83-1.09) H 10/16/19 06:05 Assessment/Plan S/P IR DRAINAGE ABDOMINAL FLUID COLLECTION S/P INCISIONAL HERNIA REPAIR SUBSTITUTE [id number]
--- NOTE | 2019-11-03 09:24 | PN ---
Progress Note, Physician Chief Complaint: abscess cx noted afebrile; daughter at bedside no pain ate and slept OK - Current Medication List Current Medications: Active Medications Acetaminophen (Tylenol -) 650 mg PO Q6H PRN PRN Reason: FEVER Last Admin: 10/29/19 15:07 Dose: 650 mg Albuterol Sulfate (Ventolin 0.083% Nebulizer Soln -) 1 amp NEB Q6H PRN PRN Reason: SHORT OF BREATH/WHEEZING Last Admin: 10/30/19 18:26 Dose: 1 amp Apixaban (Eliquis -) 5 mg PO BID [facility] Last Admin: 11/02/19 21:36 Dose: 5 mg Diltiazem HCl (Cardizem Injection -) 10 mg IVPUSH Q4H PRN PRN Reason: TACHYCARDIA Ferrous Sulfate (Feosol -) 325 mg PO DAILY [facility] Last Admin: 11/02/19 09:38 Dose: 325 mg Fluticasone Propionate (Flonase -) 1 spray NS DAILY [facility] Last Admin: 11/02/19 09:38 Dose: 1 spray Furosemide (Lasix -) 20 mg PO DAILY [facility] Last Admin: 11/02/19 09:38 Dose: 20 mg Piperacillin Sod/Tazobactam (Sod 3.375 gm/ Dextrose) 50 mls @ 100 mls/hr IVPB Q8H-IV [facility]; Protocol Linezolid (Zyvox 600 Mg Premix Bag (Restricted To Id) -) 600 mg in 300 mls @ 300 mls/hr IVPB Q12H [facility]; Protocol Insulin Aspart (Novolog Vial Sliding Scale -) 1 vial SQ ACHS [facility]; Protocol Last Admin: 11/03/19 06:01 Dose: Not Given Latanoprost (Xalatan 0.005% Eye Drops -) 1 drop OD HS [facility] Last Admin: 11/02/19 23:02 Dose: 1 drop Metoprolol Tartrate (Lopressor -) 25 mg PO BID [facility] Last Admin: 11/02/19 21:36 Dose: 25 mg Ondansetron HCl (Zofran Injection) 4 mg IVPUSH Q6H PRN PRN Reason: NAUSEA Last Admin: 10/29/19 21:00 Dose: 4 mg Pantoprazole Sodium (Protonix -) 20 mg PO DAILY [facility] Last Admin: 11/02/19 09:38 Dose: 20 mg Timolol Maleate (Timoptic 0.5%) 1 drop OU BID [facility] Last Admin: 11/02/19 23:02 Dose: 1 drop - Objective Vital Signs: Vital Signs Temperature 98 F 11/03/19 06:10 Pulse Rate 78 11/03/19 08:00 Respiratory Rate 11/03/19 08:00 Blood Pressure 118/68 11/03/19 08:00 O2 Sat by Pulse Oximetry (%) 95 11/01/19 10:00 Constitutional: Yes: No Distress, Calm Eyes: Yes: Conjunctiva Clear HENT: Yes: Atraumatic Neck: Yes: Supple Cardiovascular: No: Regular Rate and Rhythm Respiratory: Yes: Diminished Gastrointestinal: Yes: Soft. No: Tenderness Genitourinary: No: Hematuria Musculoskeletal: No: Joint Stiffness, Joint Swelling Extremities: No: Calf Tenderness, Cold, Cool, Cyanosis Edema: No Integumentary: No: Rash, Venous Stasis Changes Neurological: Yes: Alert ...Motor Strength: WNL Psychiatric: Yes: Alert. No: Agitated, Suicidal Ideation Labs: CBC, BMP 11/03/19 05:30 11/03/19 05:30 INR, PTT INR 1.19 (0.83-1.09) H 10/16/19 06:05 - ....Imaging Other: Report Reviewed Assessment/Plan 83 yo F h/of Colon Ca (s/p Hemicolectomy, 02/2019), HTN, HLD, Afib ( on Eliquis) , Diastolic CHF, HLD, Hyperthyroidism s/p hernia repair, adhesions, s/p incidental enterotomy and partial small bowel resection / re-anastomosis and mesh placement; surgery f/u restart eliquis - s/p abdominal wall collection IR drainage ATB per ID, f/u abcess cultures stable BP cont metoprolol, cardio f/u DVT PFX, decubs, aspiration PFX; f/u labs; I/O Graham; incentive spirometry, bedside PT; d.w staff d/w pt d/w pt's daughter at bedside
[2019-11-03] MEDS ORDERED: PIPERACILLIN/TAZOBACTAM 3.375 GM VIAL IVPB ONE ×2 (09:28→17:37)
[2019-11-03] MEDS ORDERED: PT OWN MED DRAWER 7, Y5N ONE (09:28)
[2019-11-03] MEDS ORDERED: DEXTROSE 5%-WATER - 50 ML IVPB ONE ×2 (09:28→17:37)
[2019-11-03] MEDS: PIPERACILLIN/TAZOB 3.375 GM 3.375 GM in DEXTROSE 5%-WATER - 50 ML IVPB SCH ×2 (09:33→17:49)
[2019-11-03] MEDS: PANTOPRAZOLE 20 MG TABLET (FP) PO SCH (09:34)
[2019-11-03] MEDS: FERROUS SO4 325 MG TABLET (FP) PO SCH (09:34)
[2019-11-03] MEDS: METOPROLOL TARTRATE 25 MG TABLET (FP) PO SCH ×2 (09:34→22:20)
[2019-11-03] MEDS: APIXABAN 5 MG TABLET PO SCH ×2 (09:34→22:20)
[2019-11-03] MEDS: FUROSEMIDE 20 MG TABLET (FP) PO SCH (09:34)
[2019-11-03] MEDS: LINEZOLID 600 MG PREMIX BAG 600 MG/300 ML BAG IVPB SCH ×2 (09:34→22:22)
[2019-11-03] MEDS: FLUTICASONE PROP 0.05% 16 GM NASAL SPRAY NS SCH (10:12)
[2019-11-03] MEDS: TIMOLOL 0.5% OPHTHALMIC SOL 5 ML BOTTLE OU SCH ×2 (10:13→22:21)
[2019-11-03] MEDS: LATANOPROST 0.005% OPHTH SOLN 2.5ML BOTTLE OD SCH (22:21)
[2019-11-04] MEDS ORDERED: PIPERACILLIN/TAZOBACTAM 3.375 GM VIAL IVPB ONE ×3 (01:25→17:18)
[2019-11-04] MEDS ORDERED: DEXTROSE 5%-WATER - 50 ML IVPB ONE ×3 (01:25→17:19)
[2019-11-04] MEDS: PIPERACILLIN/TAZOB 3.375 GM 3.375 GM in DEXTROSE 5%-WATER - 50 ML IVPB SCH ×3 (01:29→17:20)
[2019-11-04] MEDS: INSULIN SLIDING SCALE (NOVOLOG) 1 VIAL SQ SCH ×4 (06:08→22:35)
[2019-11-04 06:35] LABS: BASO % 0.6 % (0-2.0); EOS % 7.4 % (0-4.5); HEMATOCRIT 30.8 % (32.4-45.2); LYMPH % 25.8 % (8-40); MCH 28.6 pg (25.7-33.7); MCHC 32.5 g/dl (32.0-36.0); MEAN CELL VOLUME 87.9 fl (80-96); MEAN PLT VOLUME 7.4 fl (7.5-11.1); MONO % 15.9 % (3.8-10.2); NEUT % 50.3 % (42.8-82.8); PLATELET COUNT 628 K/MM3 (134-434); RBC 3.51 M/mm3 (3.60-5.2); RDW 15.7 % (11.6-15.6)
[2019-11-04 06:55] LABS: BLOOD UREA NITROGEN 7.1 mg/dL (7-18); CALCIUM 8.5 mg/dL (8.5-10.1); CREATININE 0.7 mg/dL (0.55-1.3); POTASSIUM 4.4 mmol/L (3.5-5.1)
--- NOTE | 2019-11-04 08:40 | PN ---
Progress Note, Physician Chief Complaint: in bed awake alert NAD afebrile ate OK no pain - Current Medication List Current Medications: Active Medications Acetaminophen (Tylenol -) 650 mg PO Q6H PRN PRN Reason: FEVER Last Admin: 10/29/19 15:07 Dose: 650 mg Albuterol Sulfate (Ventolin 0.083% Nebulizer Soln -) 1 amp NEB Q6H PRN PRN Reason: SHORT OF BREATH/WHEEZING Last Admin: 10/30/19 18:26 Dose: 1 amp Apixaban (Eliquis -) 5 mg PO BID [facility] Last Admin: 11/03/19 22:20 Dose: 5 mg Diltiazem HCl (Cardizem Injection -) 10 mg IVPUSH Q4H PRN PRN Reason: TACHYCARDIA Ferrous Sulfate (Feosol -) 325 mg PO DAILY [facility] Last Admin: 11/03/19 09:34 Dose: 325 mg Fluticasone Propionate (Flonase -) 1 spray NS DAILY [facility] Last Admin: 11/03/19 10:12 Dose: 1 spray Furosemide (Lasix -) 20 mg PO DAILY [facility] Last Admin: 11/03/19 09:34 Dose: 20 mg Piperacillin Sod/Tazobactam (Sod 3.375 gm/ Dextrose) 50 mls @ 100 mls/hr IVPB Q8H-IV [facility]; Protocol Last Admin: 11/04/19 01:29 Dose: 100 mls/hr Linezolid (Zyvox 600 Mg Premix Bag (Restricted To Id) -) 600 mg in 300 mls @ 300 mls/hr IVPB Q12H [facility]; Protocol Last Admin: 11/03/19 22:22 Dose: 300 mls/hr Insulin Aspart (Novolog Vial Sliding Scale -) 1 vial SQ ACHS [facility]; Protocol Last Admin: 11/04/19 06:08 Dose: Not Given Latanoprost (Xalatan 0.005% Eye Drops -) 1 drop OD HS [facility] Last Admin: 11/03/19 22:21 Dose: 1 drop Metoprolol Tartrate (Lopressor -) 25 mg PO BID [facility] Last Admin: 11/03/19 22:20 Dose: 25 mg Ondansetron HCl (Zofran Injection) 4 mg IVPUSH Q6H PRN PRN Reason: NAUSEA Last Admin: 10/29/19 21:00 Dose: 4 mg Pantoprazole Sodium (Protonix -) 20 mg PO DAILY [facility] Last Admin: 11/03/19 09:34 Dose: 20 mg Timolol Maleate (Timoptic 0.5%) 1 drop OU BID [facility] Last Admin: 11/03/19 22:21 Dose: 1 drop - Objective Vital Signs: Vital Signs Temperature 97.3 F L 11/04/19 01:31 Pulse Rate 85 11/04/19 05:05 Respiratory Rate 22 H 11/04/19 06:44 Blood Pressure 145/92 11/04/19 05:05 O2 Sat by Pulse Oximetry (%) 95 11/01/19 10:00 Constitutional: Yes: No Distress Eyes: Yes: Conjunctiva Clear HENT: Yes: Atraumatic Neck: Yes: Supple Cardiovascular: Yes: Regular Rate and Rhythm Respiratory: Yes: CTA Bilaterally Gastrointestinal: Yes: Soft, Other (abd drain minimal DC). No: Tenderness Genitourinary: No: Hematuria Musculoskeletal: No: Joint Stiffness, Joint Swelling Extremities: No: Cold, Cool Edema: No Integumentary: No: Rash, Venous Stasis Changes Neurological: Yes: Alert ...Motor Strength: WNL Psychiatric: Yes: Alert. No: Agitated Labs: CBC, BMP 11/04/19 05:40 11/04/19 05:40 INR, PTT INR 1.19 (0.83-1.09) H 10/16/19 06:05 - ....Imaging Other: Report Reviewed Assessment/Plan 83 yo F h/of Colon Ca (s/p Hemicolectomy, 02/2019), HTN, HLD, Afib ( on Eliquis) , Diastolic CHF, HLD, Hyperthyroidism s/p hernia repair, adhesions, s/p incidental enterotomy and partial small bowel resection / re-anastomosis and mesh placement; surgery f/u s/p abdominal wall collection IR drainage f/u surgery ATB per ID, f/u abcess cultures stable BP cont metoprolol, cardio f/u; restart losartan; continue eliquis DVT PFX, decubs, aspiration PFX; f/u labs; I/O Graham; incentive spirometry, bedside PT; d.w staff d/w pt
[2019-11-04] MEDS: FUROSEMIDE 20 MG TABLET (FP) PO SCH (09:57)
[2019-11-04] MEDS: APIXABAN 5 MG TABLET PO SCH ×2 (09:57→22:30)
[2019-11-04] MEDS: FERROUS SO4 325 MG TABLET (FP) PO SCH (09:57)
[2019-11-04] MEDS: METOPROLOL TARTRATE 25 MG TABLET (FP) PO SCH ×2 (09:57→22:29)
[2019-11-04] MEDS: LINEZOLID 600 MG PREMIX BAG 600 MG/300 ML BAG IVPB SCH ×2 (09:58→22:30)
[2019-11-04] MEDS: PANTOPRAZOLE 20 MG TABLET (FP) PO SCH (09:58)
[2019-11-04] MEDS: FLUTICASONE PROP 0.05% 16 GM NASAL SPRAY NS SCH (10:06)
[2019-11-04] MEDS: TIMOLOL 0.5% OPHTHALMIC SOL 5 ML BOTTLE OU SCH ×2 (10:06→22:35)
--- NOTE | 2019-11-04 17:39 | PN ---
Progress Note, Physician Chief Complaint: Pt A&Ox3; lying on right side; c/o abdominal discomfort at surgical site (as her daughter says, "my mother thinks she has diarrhea"). No chest pain, palpitations, or dyspnea.+ Tremors. History of Present Illness: 83 yo F h/of Colon Ca (s/p Hemicolectomy, 02/2019), HTN, HLD, Afib ( on Eliquis) , Diastolic CHF, HLD, Hyperthyroidism, s/p open complicated elective incisional hernia repair, adhesions, s/p incidental enterotomy and partial small bowel resection / reanastomosis and mesh placement, difficult airway access, airway swelling, remained intubated postop for airway protection admitted go ICU mec vent per anesthesia and pulmonary ICU; weaning trial per pulmonary and anesthesia; iv steroids for airway swelling per ICU - Current Medication List Current Medications: Active Medications Acetaminophen (Tylenol -) 650 mg PO Q6H PRN PRN Reason: FEVER Last Admin: 10/29/19 15:07 Dose: 650 mg Albuterol Sulfate (Ventolin 0.083% Nebulizer Soln -) 1 amp NEB Q6H PRN PRN Reason: SHORT OF BREATH/WHEEZING Last Admin: 10/30/19 18:26 Dose: 1 amp Apixaban (Eliquis -) 5 mg PO BID [facility] Last Admin: 11/04/19 09:57 Dose: 5 mg Diltiazem HCl (Cardizem Injection -) 10 mg IVPUSH Q4H PRN PRN Reason: TACHYCARDIA Ferrous Sulfate (Feosol -) 325 mg PO DAILY [facility] Last Admin: 11/04/19 09:57 Dose: 325 mg Fluticasone Propionate (Flonase -) 1 spray NS DAILY [facility] Last Admin: 11/04/19 10:06 Dose: 1 spray Furosemide (Lasix -) 20 mg PO DAILY [facility] Last Admin: 11/04/19 09:57 Dose: 20 mg Piperacillin Sod/Tazobactam (Sod 3.375 gm/ Dextrose) 50 mls @ 100 mls/hr IVPB Q8H-IV [facility]; Protocol Last Admin: 11/04/19 17:20 Dose: 100 mls/hr Linezolid (Zyvox 600 Mg Premix Bag (Restricted To Id) -) 600 mg in 300 mls @ 300 mls/hr IVPB Q12H [facility]; Protocol Last Admin: 11/04/19 09:58 Dose: 300 mls/hr Insulin Aspart (Novolog Vial Sliding Scale -) 1 vial SQ ACHS [facility]; Protocol Last Admin: 11/04/19 16:33 Dose: Not Given Latanoprost (Xalatan 0.005% Eye Drops -) 1 drop OD HS [facility] Last Admin: 11/03/19 22:21 Dose: 1 drop Losartan Potassium (Cozaar -) 25 mg PO AM [facility] Metoprolol Tartrate (Lopressor -) 25 mg PO BID [facility] Last Admin: 11/04/19 09:57 Dose: 25 mg Ondansetron HCl (Zofran Injection) 4 mg IVPUSH Q6H PRN PRN Reason: NAUSEA Last Admin: 10/29/19 21:00 Dose: 4 mg Pantoprazole Sodium (Protonix -) 20 mg PO DAILY [facility] Last Admin: 11/04/19 09:58 Dose: 20 mg Timolol Maleate (Timoptic 0.5%) 1 drop OU BID [facility] Last Admin: 11/04/19 10:06 Dose: 1 drop - Objective Vital Signs: Vital Signs Temperature 98.1 F 11/04/19 10:00 Pulse Rate 79 11/04/19 10:00 Respiratory Rate 16 11/04/19 10:00 Blood Pressure 147/76 11/04/19 10:00 O2 Sat by Pulse Oximetry (%) 95 11/04/19 10:00 Constitutional: Yes: Calm Eyes: Yes: WNL HENT: Yes: WNL Neck: Yes: WNL Cardiovascular: Yes: S1 (varies in intensity), S2 Respiratory: Yes: Regular Gastrointestinal: Yes: Soft ...Rectal Exam: Yes: Deferred Genitourinary: No: Anuria Breast(s): Yes: WNL Musculoskeletal: Yes: Muscle Weakness Extremities: Yes: Cool Edema: No Peripheral Pulses WNL: Yes Neurological: Yes: Alert, Oriented, Weakness Psychiatric: Yes: Alert, Oriented, Other (anxiety) Labs: CBC, BMP 11/04/19 05:40 11/04/19 05:40 INR, PTT INR 1.19 (0.83-1.09) H 10/16/19 06:05 Abnormal Lab Results 11/04/19 11/04/19 05:40 05:40 RBC 3.51 L Hgb 10.0 L Hct 30.8 L RDW 15.7 H Plt Count 628 H MPV 7.4 L Monocytes % 15.9 H Eosinophils % 7.4 H Anion Gap 7 L - ....Imaging Other: Image Reviewed (telemetry: AF with controlled VR) Problem List - Problems (1) S/P repair of ventral hernia Code(s): Z98.890 - OTHER SPECIFIED POSTPROCEDURAL STATES; Z87.19 - PERSONAL HISTORY OF OTHER DISEASES OF THE DIGESTIVE SYSTEM (2) Abdominal pain Code(s): R10.9 - UNSPECIFIED ABDOMINAL PAIN Qualifiers: Abdominal location: unspecified location Qualified Code(s): R10.9 - Unspecified abdominal pain (3) Afib Assessment/Plan: On metoprolol and apixaban. Code(s): I48.91 - UNSPECIFIED ATRIAL FIBRILLATION Qualifiers: Atrial fibrillation type: permanent Qualified Code(s): I48.21 - Permanent atrial fibrillation (4) Anemia Code(s): D64.9 - ANEMIA, UNSPECIFIED (5) Anxiety as acute reaction to exceptional stress Code(s): F41.1 - GENERALIZED ANXIETY DISORDER; F43.0 - ACUTE STRESS REACTION (6) Hyperthyroidism Assessment/Plan: Pt is on methimezole and metoprolol at home. F/u repeat of TSH and Free T4 (abnormal in 09/2019 lab). Code(s): E05.90 - THYROTOXICOSIS, UNSP WITHOUT THYROTOXIC CRISIS OR STORM (7) Obesity (BMI 30-39.9) Code(s): E66.9 - OBESITY, UNSPECIFIED (8) S/P left hemicolectomy Assessment/Plan: f/u with surgeon Code(s): Z90.49 - ACQUIRED ABSENCE OF OTHER SPECIFIED PARTS OF DIGESTIVE TRACT (9) Sepsis Code(s): A41.9 - SEPSIS, UNSPECIFIED ORGANISM Qualifiers: Sepsis type: sepsis due to unspecified organism Qualified Code(s): A41.9 - Sepsis, unspecified organism (10) Wound dehiscence, surgical Code(s): T81.31XA - DISRUPTION OF EXTERNAL OPERATION (SURGICAL) WOUND, NEC, INIT Qualifiers: Encounter type: subsequent encounter Qualified Code(s): T81.31XD - Disruption of external operation (surgical) wound, not elsewhere classified, subsequent encounter (11) Acute on chronic diastolic (congestive) heart failure Code(s): I50.33 - ACUTE ON CHRONIC DIASTOLIC (CONGESTIVE) HEART FAILURE (12) HTN (hypertension) Code(s): I10 - ESSENTIAL (PRIMARY) HYPERTENSION Qualifiers: Hypertension type: essential hypertension Qualified Code(s): I10 - Essential (primary) hypertension (13) Parkinson disease Code(s): G20 - PARKINSON'S DISEASE (14) Glaucoma Assessment/Plan: on Timoptic. Code(s): H40.9 - UNSPECIFIED GLAUCOMA
[2019-11-04] MEDS: ONDANSETRON 4 MG/2 ML VIAL IVPUSH PRN (18:45)
[2019-11-04] MEDS ORDERED: PT OWN MED DRAWER 7, Y5N ONE (22:19)
[2019-11-04] MEDS: LATANOPROST 0.005% OPHTH SOLN 2.5ML BOTTLE OD SCH (22:35)
[2019-11-05] MEDS ORDERED: PIPERACILLIN/TAZOBACTAM 3.375 GM VIAL IVPB ONE ×3 (00:40→16:48)
[2019-11-05] MEDS ORDERED: DEXTROSE 5%-WATER - 50 ML IVPB ONE ×3 (00:41→16:48)
[2019-11-05] MEDS: PIPERACILLIN/TAZOB 3.375 GM 3.375 GM in DEXTROSE 5%-WATER - 50 ML IVPB SCH ×3 (01:03→17:18)
[2019-11-05] MEDS ORDERED: LOSARTAN POTASSIUM 25 MG TABLET PO SCH (07:00)
--- NOTE | 2019-11-05 07:34 | PN ---
Progress Note, Physician Chief Complaint: in bed NAD afebrile d/w surgery to f/u on abdominal wound drainage - Current Medication List Current Medications: Active Medications Acetaminophen (Tylenol -) 650 mg PO Q6H PRN PRN Reason: FEVER Last Admin: 10/29/19 15:07 Dose: 650 mg Albuterol Sulfate (Ventolin 0.083% Nebulizer Soln -) 1 amp NEB Q6H PRN PRN Reason: SHORT OF BREATH/WHEEZING Last Admin: 10/30/19 18:26 Dose: 1 amp Apixaban (Eliquis -) 5 mg PO BID [facility] Last Admin: 11/04/19 22:30 Dose: 5 mg Diltiazem HCl (Cardizem Injection -) 10 mg IVPUSH Q4H PRN PRN Reason: TACHYCARDIA Ferrous Sulfate (Feosol -) 325 mg PO DAILY [facility] Last Admin: 11/04/19 09:57 Dose: 325 mg Fluticasone Propionate (Flonase -) 1 spray NS DAILY [facility] Last Admin: 11/04/19 10:06 Dose: 1 spray Furosemide (Lasix -) 20 mg PO DAILY [facility] Last Admin: 11/04/19 09:57 Dose: 20 mg Piperacillin Sod/Tazobactam (Sod 3.375 gm/ Dextrose) 50 mls @ 100 mls/hr IVPB Q8H-IV [facility]; Protocol Last Admin: 11/05/19 01:03 Dose: 100 mls/hr Linezolid (Zyvox 600 Mg Premix Bag (Restricted To Id) -) 600 mg in 300 mls @ 300 mls/hr IVPB Q12H [facility]; Protocol Last Admin: 11/04/19 22:30 Dose: 300 mls/hr Insulin Aspart (Novolog Vial Sliding Scale -) 1 vial SQ ACHS [facility]; Protocol Last Admin: 11/04/19 22:35 Dose: Not Given Latanoprost (Xalatan 0.005% Eye Drops -) 1 drop OD HS [facility] Last Admin: 11/04/19 22:35 Dose: 1 drop Losartan Potassium (Cozaar -) 25 mg PO AM [facility] Last Admin: 11/05/19 06:17 Dose: 25 mg Metoprolol Tartrate (Lopressor -) 25 mg PO BID [facility] Last Admin: 11/04/19 22:29 Dose: 25 mg Ondansetron HCl (Zofran Injection) 4 mg IVPUSH Q6H PRN PRN Reason: NAUSEA Last Admin: 11/04/19 18:45 Dose: 4 mg Pantoprazole Sodium (Protonix -) 20 mg PO DAILY [facility] Last Admin: 11/04/19 09:58 Dose: 20 mg Timolol Maleate (Timoptic 0.5%) 1 drop OU BID [facility] Last Admin: 11/04/19 22:35 Dose: 1 drop - Objective Vital Signs: Vital Signs Temperature 98 F 11/04/19 22:00 Pulse Rate 81 11/04/19 22:00 Respiratory Rate 26 H 11/04/19 22:00 Blood Pressure 110/66 11/04/19 22:00 O2 Sat by Pulse Oximetry (%) 96 11/04/19 22:00 Constitutional: Yes: No Distress Eyes: Yes: Conjunctiva Clear HENT: Yes: Atraumatic Neck: Yes: Supple Cardiovascular: Yes: Regular Rate and Rhythm Respiratory: Yes: CTA Bilaterally Gastrointestinal: Yes: Soft. No: Tenderness Genitourinary: No: Hematuria Musculoskeletal: No: Joint Stiffness, Joint Swelling Extremities: No: Cold, Cool, Cyanosis Edema: No Neurological: Yes: Alert ...Motor Strength: WNL Psychiatric: Yes: Alert. No: Agitated, Suicidal Ideation Labs: CBC, BMP 11/04/19 05:40 11/04/19 05:40 INR, PTT INR 1.19 (0.83-1.09) H 10/16/19 06:05 - ....Imaging Other: Report Reviewed Assessment/Plan 83 yo F h/of Colon Ca (s/p Hemicolectomy, 02/2019), HTN, HLD, Afib ( on Eliquis) , Diastolic CHF, HLD, Hyperthyroidism s/p hernia repair, adhesions, s/p incidental enterotomy and partial small bowel resection / re-anastomosis and mesh placement; surgery f/u s/p abdominal wall collection IR drainage f/u surgery ATB per ID, f/u abcess cultures stable BP cont metoprolol, cardio f/u; restart losartan; continue eliquis DVT PFX, decubs, aspiration PFX; f/u labs; I/O Graham; incentive spirometry, bedside PT; d.w staff d/w pt
--- NOTE | 2019-11-05 10:03 | PN ---
Progress Note, Physician History of Present Illness: AWAKE IN BED NO COMPLAINTS DENIES ABDOMINAL PAIN S/P IR DRAINAGE ABDOMINAL FLUID COLLECTION TEMPS DOWN WBC WNL REPEAT BC NO GROWTH FLUID C/S E COLI, VRE - Current Medication List Current Medications: Active Medications Acetaminophen (Tylenol -) 650 mg PO Q6H PRN PRN Reason: FEVER Last Admin: 10/29/19 15:07 Dose: 650 mg Albuterol Sulfate (Ventolin 0.083% Nebulizer Soln -) 1 amp NEB Q6H PRN PRN Reason: SHORT OF BREATH/WHEEZING Last Admin: 10/30/19 18:26 Dose: 1 amp Apixaban (Eliquis -) 5 mg PO BID [facility] Last Admin: 11/04/19 22:30 Dose: 5 mg Diltiazem HCl (Cardizem Injection -) 10 mg IVPUSH Q4H PRN PRN Reason: TACHYCARDIA Ferrous Sulfate (Feosol -) 325 mg PO DAILY [facility] Last Admin: 11/04/19 09:57 Dose: 325 mg Fluticasone Propionate (Flonase -) 1 spray NS DAILY [facility] Last Admin: 11/04/19 10:06 Dose: 1 spray Furosemide (Lasix -) 20 mg PO DAILY [facility] Last Admin: 11/04/19 09:57 Dose: 20 mg Piperacillin Sod/Tazobactam (Sod 3.375 gm/ Dextrose) 50 mls @ 100 mls/hr IVPB Q8H-IV [facility]; Protocol Last Admin: 11/05/19 01:03 Dose: 100 mls/hr Linezolid (Zyvox 600 Mg Premix Bag (Restricted To Id) -) 600 mg in 300 mls @ 300 mls/hr IVPB Q12H [facility]; Protocol Last Admin: 11/04/19 22:30 Dose: 300 mls/hr Insulin Aspart (Novolog Vial Sliding Scale -) 1 vial SQ ACHS [facility]; Protocol Last Admin: 11/04/19 22:35 Dose: Not Given Latanoprost (Xalatan 0.005% Eye Drops -) 1 drop OD HS [facility] Last Admin: 11/04/19 22:35 Dose: 1 drop Losartan Potassium (Cozaar -) 25 mg PO AM [facility] Last Admin: 11/05/19 06:17 Dose: 25 mg Metoprolol Tartrate (Lopressor -) 25 mg PO BID [facility] Last Admin: 11/04/19 22:29 Dose: 25 mg Ondansetron HCl (Zofran Injection) 4 mg IVPUSH Q6H PRN PRN Reason: NAUSEA Last Admin: 11/04/19 18:45 Dose: 4 mg Pantoprazole Sodium (Protonix -) 20 mg PO DAILY [facility] Last Admin: 11/04/19 09:58 Dose: 20 mg Timolol Maleate (Timoptic 0.5%) 1 drop OU BID [facility] Last Admin: 11/04/19 22:35 Dose: 1 drop - Objective Vital Signs: Vital Signs Temperature 98 F 11/04/19 22:00 Pulse Rate 81 11/04/19 22:00 Respiratory Rate 26 H 11/05/19 08:46 Blood Pressure 110/66 11/04/19 22:00 O2 Sat by Pulse Oximetry (%) 94 L 11/05/19 08:46 Constitutional: Yes: No Distress Eyes: Yes: Conjunctiva Clear Cardiovascular: Yes: Regular Rate and Rhythm, S1, S2 Respiratory: Yes: CTA Bilaterally Gastrointestinal: Yes: Normal Bowel Sounds, Soft, Abdomen, Obese, Other ( surgical wound no erythema/ drainage drain in place serosanguinous fluid in drain). No: Tenderness Edema: No Labs: CBC, BMP 11/04/19 05:40 11/04/19 05:40 INR, PTT INR 1.19 (0.83-1.09) H 10/16/19 06:05 Assessment/Plan S/P IR DRAINAGE ABDOMINAL FLUID COLLECTION S/P INCISIONAL HERNIA REPAIR CONTINUE ZOSYN/ZYVOX
[2019-11-05] MEDS: LINEZOLID 600 MG PREMIX BAG 600 MG/300 ML BAG IVPB SCH ×2 (10:43→21:09)
[2019-11-05] MEDS: METOPROLOL TARTRATE 25 MG TABLET (FP) PO SCH ×2 (10:44→21:08)
[2019-11-05] MEDS: APIXABAN 5 MG TABLET PO SCH ×2 (10:44→21:08)
[2019-11-05] MEDS: FLUTICASONE PROP 0.05% 16 GM NASAL SPRAY NS SCH (10:46)
[2019-11-05] MEDS: TIMOLOL 0.5% OPHTHALMIC SOL 5 ML BOTTLE OU SCH ×2 (10:52→21:09)
[2019-11-05] MEDS: FERROUS SO4 325 MG TABLET (FP) PO SCH (11:01)
[2019-11-05] MEDS: FUROSEMIDE 20 MG TABLET (FP) PO SCH (11:02)
[2019-11-05] MEDS: PANTOPRAZOLE 20 MG TABLET (FP) PO SCH (11:02)
--- NOTE | 2019-11-05 11:43 | PN ---
Progress Note (short form) - Note Progress Note: S/P IR abscess drainage 09/30 S/P incisional hernia repair w/ Phasix mesh and small bowel resection for 10/08 Pt seen and examined. No issues overnight. Tolerating PO. Was not oob over the weekend. Voiding, +BMs. Denies cp/sob, n/v. Vital Signs Temp 98 F 11/04/19 22:00 Pulse 81 11/04/19 22:00 Resp 26 H 11/05/19 08:46 BP 110/66 11/04/19 22:00 Pulse Ox 94 L 11/05/19 08:46 Intake & Output 11/04/19 11/04/19 11/05/19 11:59 23:59 11:59 Intake Total 180 1260 Output Total 10 185 Balance 170 1075 Intake: IVPB 700 Oral 180 560 Output: Drainage 10 35 left abdomen wound drain 10 35 Emesis 150 Other: Voiding Method Bedpan Incontinent Incontinent # Unmeasured Voids Void 3 2 Bowel Movement Yes Yes # Bowel Movements 1 1 CBC, BMP 11/04/19 05:40 11/04/19 05:40 Gen: awake, alert, nad Resp: unlabored on RA Abdo: soft, nt, incision with steristrips intact, drain in place with scant seropurulent drainage in reservoir. + bowel sounds A/P: 84 y/o F w/ PMHx Parkinson's syndrome, cervical cancer s/p hysterectomy/b/ l salpingoophrectomy, afib on eliquis, HTN, Hyperthyroidism, recurrent UTI s/p Left colectomy with splenic flexure takedown in January of this past year after presenting to [facility] with anemia found to have colon mass, now s/p incisional hernia repair w/ Phasix mesh and small bowel resection c/b prolonged intubation on 12/08, extubated 10/10, c/b [place] reintubated 10/12 extubated 10/15, now S/P IR abscess drainage 09/30. afebrile, vss no leukocytosis Plan for drain removal today Trend labs OOB to chair with assist Reg diet ID following d/w attending Dr Alvarado
--- NOTE | 2019-11-05 12:14 | PN ---
Progress Note, Physician Chief Complaint: Events noted s/p IR abscess drainage History of Present Illness: Patient was seen and examined. Awake. Chart was reviewed AF with variable HR - Rate controlled Not in distress - Current Medication List Current Medications: Active Medications Acetaminophen (Tylenol -) 650 mg PO Q6H PRN PRN Reason: FEVER Last Admin: 10/29/19 15:07 Dose: 650 mg Albuterol Sulfate (Ventolin 0.083% Nebulizer Soln -) 1 amp NEB Q6H PRN PRN Reason: SHORT OF BREATH/WHEEZING Last Admin: 10/30/19 18:26 Dose: 1 amp Apixaban (Eliquis -) 5 mg PO BID [facility] Last Admin: 11/05/19 10:44 Dose: 5 mg Diltiazem HCl (Cardizem Injection -) 10 mg IVPUSH Q4H PRN PRN Reason: TACHYCARDIA Ferrous Sulfate (Feosol -) 325 mg PO DAILY [facility] Last Admin: 11/05/19 11:01 Dose: 325 mg Fluticasone Propionate (Flonase -) 1 spray NS DAILY [facility] Last Admin: 11/05/19 10:46 Dose: 1 spray Furosemide (Lasix -) 20 mg PO DAILY [facility] Last Admin: 11/05/19 11:02 Dose: 20 mg Piperacillin Sod/Tazobactam (Sod 3.375 gm/ Dextrose) 50 mls @ 100 mls/hr IVPB Q8H-IV [facility]; Protocol Last Admin: 11/05/19 10:43 Dose: 100 mls/hr Linezolid (Zyvox 600 Mg Premix Bag (Restricted To Id) -) 600 mg in 300 mls @ 300 mls/hr IVPB Q12H [facility]; Protocol Last Admin: 11/05/19 10:43 Dose: 300 mls/hr Insulin Aspart (Novolog Vial Sliding Scale -) 1 vial SQ ACHS [facility]; Protocol Last Admin: 11/04/19 22:35 Dose: Not Given Latanoprost (Xalatan 0.005% Eye Drops -) 1 drop OD HS [facility] Last Admin: 11/04/19 22:35 Dose: 1 drop Losartan Potassium (Cozaar -) 25 mg PO AM [facility] Last Admin: 11/05/19 06:17 Dose: 25 mg Metoprolol Tartrate (Lopressor -) 25 mg PO BID [facility] Last Admin: 11/05/19 10:44 Dose: 25 mg Ondansetron HCl (Zofran Injection) 4 mg IVPUSH Q6H PRN PRN Reason: NAUSEA Last Admin: 11/04/19 18:45 Dose: 4 mg Pantoprazole Sodium (Protonix -) 20 mg PO DAILY [facility] Last Admin: 11/05/19 11:02 Dose: 20 mg Timolol Maleate (Timoptic 0.5%) 1 drop OU BID [facility] Last Admin: 11/05/19 10:52 Dose: 1 drop - Objective Vital Signs: Vital Signs Temperature 98.2 F 11/05/19 10:00 Pulse Rate 74 11/05/19 10:00 Respiratory Rate 20 11/05/19 10:00 Blood Pressure 112/72 11/05/19 10:00 O2 Sat by Pulse Oximetry (%) 94 L 11/05/19 08:46 Eyes: Yes: PERRL HENT: Yes: Atraumatic Neck: Yes: Supple Cardiovascular: Yes: Pulse Irregular, S1, S2 Respiratory: Yes: CTA Bilaterally Gastrointestinal: Yes: Other (Post op) Edema: No Additional Findings/Remarks: Review of Systems Constitutional: denies: Chills or Fever Cardiovascular: denies: chest pain, SOB Respiratory: denies: SOB, cough Gastrointestinal: denies: Nausea, Vomiting, Diarrhea, Constipation or Abdominal Pain Genitourinary: denies: Dysuria Musculoskeletal: denies: Joint Pain Neurological: denies: Dizziness or Headache Labs: CBC, BMP 11/04/19 05:40 11/04/19 05:40 Problem List - Problems (1) Afib Code(s): I48.91 - UNSPECIFIED ATRIAL FIBRILLATION Qualifiers: Atrial fibrillation type: permanent Qualified Code(s): I48.21 - Permanent atrial fibrillation (2) Anemia Code(s): D64.9 - ANEMIA, UNSPECIFIED (3) Glaucoma Code(s): H40.9 - UNSPECIFIED GLAUCOMA (4) Hyperthyroidism Code(s): E05.90 - THYROTOXICOSIS, UNSP WITHOUT THYROTOXIC CRISIS OR STORM (5) S/P left hemicolectomy Code(s): Z90.49 - ACQUIRED ABSENCE OF OTHER SPECIFIED PARTS OF DIGESTIVE TRACT (6) Acute on chronic diastolic (congestive) heart failure Code(s): I50.33 - ACUTE ON CHRONIC DIASTOLIC (CONGESTIVE) HEART FAILURE (7) Asthma Code(s): J45.909 - UNSPECIFIED ASTHMA, UNCOMPLICATED Qualifiers: Asthma severity: mild Asthma persistence: intermittent Asthma complication type: unspecified Qualified Code(s): J45.20 - Mild intermittent asthma, uncomplicated (8) CAD (coronary artery disease) Code(s): I25.10 - ATHSCL HEART DISEASE OF [place] CORONARY ARTERY W/O ANG PCTRS Qualifiers: Coronary Disease-Associated Artery/Lesion type: [place] artery [place] vs. transplanted heart: [place] heart Associated angina: without angina Qualified Code(s): I25.10 - Atherosclerotic heart disease of [place] coronary artery without angina pectoris (9) HTN (hypertension) Code(s): I10 - ESSENTIAL (PRIMARY) HYPERTENSION Qualifiers: Hypertension type: essential hypertension Qualified Code(s): I10 - Essential (primary) hypertension (10) Parkinson disease Code(s): G20 - PARKINSON'S DISEASE Assessment/Plan 1. Post acute respiratory failure, currently stable 2. Post abdominal hernia repair complicated by small bowel resection and mesh placement, s/p IR drain of abscess 3. Persistent atrial Fibrillation [id number] score of 5 4. Diastolic LV dysfunction with clinical class 0 NYHA classification LV failure , generalized edema 5. HTN 6. DM 7. Hyperthyroidism 8. Acute renal insufficiency 9. Hematuria, resolved 10. History of cervical carcinoma post resection 11. History of colon carcinoma post javi-colectomy 12. Left hand hematoma PLAN: 1. Continue Lopressor 25 mg BID, Losartan 25 mg QD and Lasix 20 mg QD 2. Continue Eliquis 5 mg BID 3. Current management post op Johann Cowan MD
--- NOTE | 2019-11-05 12:18 | PN ---
Progress Note (short form) - Note Progress Note: Resting in NAD. Tolerating PO intake. No CP or SOB. No acute events overnight. Intake & Output 11/02/19 11/03/19 11/04/19 11/05/19 23:59 23:59 23:59 23:59 Intake Total 253 748 5408 Output Total 515 10 195 Balance -764 700 9748 Last Vital Signs Temp Pulse Resp BP Pulse Ox 98.2 F 74 20 112/72 94 L 11/05/19 10:00 11/05/19 10:00 11/05/19 10:00 11/05/19 10:00 11/05/19 08:46 Active Medications Acetaminophen (Tylenol -) 650 mg PO Q6H PRN PRN Reason: FEVER Last Admin: 10/29/19 15:07 Dose: 650 mg Albuterol Sulfate (Ventolin 0.083% Nebulizer Soln -) 1 amp NEB Q6H PRN PRN Reason: SHORT OF BREATH/WHEEZING Last Admin: 10/30/19 18:26 Dose: 1 amp Apixaban (Eliquis -) 5 mg PO BID [facility] Last Admin: 11/05/19 10:44 Dose: 5 mg Diltiazem HCl (Cardizem Injection -) 10 mg IVPUSH Q4H PRN PRN Reason: TACHYCARDIA Ferrous Sulfate (Feosol -) 325 mg PO DAILY [facility] Last Admin: 11/05/19 11:01 Dose: 325 mg Fluticasone Propionate (Flonase -) 1 spray NS DAILY [facility] Last Admin: 11/05/19 10:46 Dose: 1 spray Furosemide (Lasix -) 20 mg PO DAILY [facility] Last Admin: 11/05/19 11:02 Dose: 20 mg Piperacillin Sod/Tazobactam (Sod 3.375 gm/ Dextrose) 50 mls @ 100 mls/hr IVPB Q8H-IV [facility]; Protocol Last Admin: 11/05/19 10:43 Dose: 100 mls/hr Linezolid (Zyvox 600 Mg Premix Bag (Restricted To Id) -) 600 mg in 300 mls @ 300 mls/hr IVPB Q12H [facility]; Protocol Last Admin: 11/05/19 10:43 Dose: 300 mls/hr Insulin Aspart (Novolog Vial Sliding Scale -) 1 vial SQ ACHS [facility]; Protocol Last Admin: 11/04/19 22:35 Dose: Not Given Latanoprost (Xalatan 0.005% Eye Drops -) 1 drop OD HS [facility] Last Admin: 11/04/19 22:35 Dose: 1 drop Losartan Potassium (Cozaar -) 25 mg PO AM [facility] Last Admin: 11/05/19 06:17 Dose: 25 mg Metoprolol Tartrate (Lopressor -) 25 mg PO BID [facility] Last Admin: 11/05/19 10:44 Dose: 25 mg Ondansetron HCl (Zofran Injection) 4 mg IVPUSH Q6H PRN PRN Reason: NAUSEA Last Admin: 11/04/19 18:45 Dose: 4 mg Pantoprazole Sodium (Protonix -) 20 mg PO DAILY [facility] Last Admin: 11/05/19 11:02 Dose: 20 mg Timolol Maleate (Timoptic 0.5%) 1 drop OU BID [facility] Last Admin: 11/05/19 10:52 Dose: 1 drop Constitutional: Yes: No Distress Neck: Yes: Supple Cardiovascular: Yes: Pulse Irregular Respiratory: Yes: few scattered rhonchi, no wheeze Gastrointestinal: Yes: Normal Bowel Sounds, Soft Edema: No Labs: Laboratory Results - last 24 hr 11/04/19 05:40 Sodium 144 Potassium 4.4 Chloride 106 Carbon Dioxide 30 Anion Gap 7 L BUN 7.1 Creatinine 0.7 Est GFR (CKD-EPI)AfAm 92.86 Est GFR (CKD-EPI)NonAf 80.12 Random Glucose 74 Calcium 8.5 TSH 0.43 Free T4 1.64 H Problem List (1) Afib Code(s): I48.91 - UNSPECIFIED ATRIAL FIBRILLATION Qualifiers: Atrial fibrillation type: chronic (2) Anemia Code(s): D64.9 - ANEMIA, UNSPECIFIED (3) Glaucoma Code(s): H40.9 - UNSPECIFIED GLAUCOMA (4) Hyperthyroidism Code(s): E05.90 - THYROTOXICOSIS, UNSP WITHOUT THYROTOXIC CRISIS OR STORM (5) New onset atrial fibrillation Code(s): I48.91 - UNSPECIFIED ATRIAL FIBRILLATION (6) S/P left hemicolectomy Code(s): Z90.49 - ACQUIRED ABSENCE OF OTHER SPECIFIED PARTS OF DIGESTIVE TRACT (7) Acute on chronic diastolic (congestive) heart failure Code(s): I50.33 - ACUTE ON CHRONIC DIASTOLIC (CONGESTIVE) HEART FAILURE (8) Asthma Code(s): J45.909 - UNSPECIFIED ASTHMA, UNCOMPLICATED Qualifiers: Asthma severity: mild Asthma persistence: intermittent Asthma complication type: unspecified Qualified Code(s): J45.20 - Mild intermittent asthma, uncomplicated (9) CAD (coronary artery disease) Code(s): I25.10 - ATHSCL HEART DISEASE OF [place] CORONARY ARTERY W/O ANG PCTRS Qualifiers: Coronary Disease-Associated Artery/Lesion type: [place] artery [place] vs. transplanted heart: [place] heart Associated angina: without angina Qualified Code(s): I25.10 - Atherosclerotic heart disease of [place] coronary artery without angina pectoris (10) HTN (hypertension) Code(s): I10 - ESSENTIAL (PRIMARY) HYPERTENSION Qualifiers: Hypertension type: essential hypertension Qualified Code(s): I10 - Essential (primary) hypertension (11) Parkinson disease Code(s): G20 - PARKINSON'S DISEASE Assessment/Plan PO as tolerated Monitor Abdominal exam Encourage Incentive Spirometry O2 as needed to maintain saturation ABX per ID BD TX PRN OOB to chair / PT as tolerated Aspiration precautions Dr Paez
[2019-11-05] MEDS: INSULIN SLIDING SCALE (NOVOLOG) 1 VIAL SQ SCH ×4 (12:39→22:40)
[2019-11-05] MEDS ORDERED: PT OWN MED DRAWER 7, Y5N ONE (16:47)
--- NOTE | 2019-11-05 17:45 | PN ---
Progress Note (short form) - Note Progress Note: Attending Surgeon POD#30 s/p incisional hernia repair and post IRD wound collection day #6 No c/o; appetite better; passing flatus and moving her bowels VSS AF abdo-soft; incision c/d/i; drain output quality and quantity noted. WBC-nl; cultures noted.PLAN: Drain remoeved uneventfully IMP: improving PLAN:; drain removed uneventfully; continue IVAB's and follow fever curve. John Alvarado MD FACS
[2019-11-05 19:27] LABS: BILIRUBIN,TOTAL 0.2 mg/dL (0.2-1); BLOOD UREA NITROGEN 9.1 mg/dL (7-18); CALCIUM 8.3 mg/dL (8.5-10.1); CREATININE 0.7 mg/dL (0.55-1.3); POTASSIUM 4.1 mmol/L (3.5-5.1); TOT PROT 4.8 g/dl (6.4-8.2)
[2019-11-05] MEDS: LATANOPROST 0.005% OPHTH SOLN 2.5ML BOTTLE OD SCH (21:08)
[2019-11-06] MEDS ORDERED: PIPERACILLIN/TAZOBACTAM 3.375 GM VIAL IVPB ONE ×2 (01:07→10:09)
[2019-11-06] MEDS ORDERED: DEXTROSE 5%-WATER - 50 ML IVPB ONE ×2 (01:07→10:09)
[2019-11-06] MEDS: PIPERACILLIN/TAZOB 3.375 GM 3.375 GM in DEXTROSE 5%-WATER - 50 ML IVPB SCH ×2 (01:39→10:38)
[2019-11-06] MEDS: INSULIN SLIDING SCALE (NOVOLOG) 1 VIAL SQ SCH ×4 (06:21→21:44)
--- NOTE | 2019-11-06 07:08 | PN ---
Progress Note (short form) - Note Progress Note: Chief Complaint: Events noted, notes reviewed, resting in bed comfortably, denies any chest pain, remains in atrial fibrillation rate controlled History of Present Illness: Seen and examined on telemetry. Events noted, notes reviewed, resting in bed comfortably, denies any chest pain, remains in atrial fibrillation rate controlled Post IR draining of an abscess - Current Medication List Current Medications Acetaminophen (Tylenol -) 650 mg PO Q6H PRN PRN Reason: FEVER Last Admin: 10/29/19 15:07 Dose: 650 mg Albuterol Sulfate (Ventolin 0.083% Nebulizer Soln -) 1 amp NEB Q6H PRN PRN Reason: SHORT OF BREATH/WHEEZING Last Admin: 10/30/19 18:26 Dose: 1 amp Apixaban (Eliquis -) 5 mg PO BID [facility] Last Admin: 11/05/19 21:08 Dose: 5 mg Diltiazem HCl (Cardizem Injection -) 10 mg IVPUSH Q4H PRN PRN Reason: TACHYCARDIA Ferrous Sulfate (Feosol -) 325 mg PO DAILY [facility] Last Admin: 11/05/19 11:01 Dose: 325 mg Fluticasone Propionate (Flonase -) 1 spray NS DAILY [facility] Last Admin: 11/05/19 10:46 Dose: 1 spray Furosemide (Lasix -) 20 mg PO DAILY [facility] Last Admin: 11/05/19 11:02 Dose: 20 mg Piperacillin Sod/Tazobactam (Sod 3.375 gm/ Dextrose) 50 mls @ 100 mls/hr IVPB Q8H-IV [facility]; Protocol Last Admin: 11/06/19 01:39 Dose: 100 mls/hr Linezolid (Zyvox 600 Mg Premix Bag (Restricted To Id) -) 600 mg in 300 mls @ 300 mls/hr IVPB Q12H [facility]; Protocol Last Admin: 11/05/19 21:09 Dose: 300 mls/hr Insulin Aspart (Novolog Vial Sliding Scale -) 1 vial SQ ACHS [facility]; Protocol Last Admin: 11/06/19 06:21 Dose: Not Given Latanoprost (Xalatan 0.005% Eye Drops -) 1 drop OD HS [facility] Last Admin: 11/05/19 21:08 Dose: 1 drop Losartan Potassium (Cozaar -) 25 mg PO AM [facility] Metoprolol Tartrate (Lopressor -) 25 mg PO BID [facility] Last Admin: 11/05/19 21:08 Dose: 25 mg Ondansetron HCl (Zofran Injection) 4 mg IVPUSH Q6H PRN PRN Reason: NAUSEA Last Admin: 11/04/19 18:45 Dose: 4 mg Pantoprazole Sodium (Protonix -) 20 mg PO DAILY [facility] Last Admin: 11/05/19 11:02 Dose: 20 mg Timolol Maleate (Timoptic 0.5%) 1 drop OU BID [facility] Last Admin: 11/05/19 21:09 Dose: 1 drop Review of Systems Constitutional: denies: Chills or Fever Cardiovascular: as noted above Respiratory: as noted above Gastrointestinal: denies: Nausea, Vomiting, Diarrhea, Constipation or Abdominal Pain Genitourinary: denies: Dysuria Musculoskeletal: denies: Joint Pain Neurological: denies: Dizziness or Headache - Objective Vital Signs: Last Vital Signs Temp Pulse Resp BP Pulse Ox 97.8 F 75 16 91/51 L 94 L 11/05/19 18:00 11/06/19 02:00 11/06/19 02:00 11/06/19 02:00 11/05/19 21:00 Intake & Output 11/03/19 11/04/19 11/05/19 11/06/19 23:59 23:59 23:59 23:59 Intake Total 660 1440 400 Output Total 10 195 Balance 650 1245 400 Neck: Supple Negative JVD No Bruit Respiratory: Scattered Rhonchi Bilaterally Cardiovascular: S1 S2 Irregularly Irregular Gastrointestinal: Soft Benign Normal Bowel Sounds Ext: Edema Labs: CBC, BMP 11/04/19 05:40 11/05/19 18:40 Hepatic Panel Total Bilirubin 0.2 mg/dL (0.2-1) 11/05/19 18:40 AST 18 U/L (15-37) 11/05/19 18:40 ALT 18 U/L (13-61) 11/05/19 18:40 Alkaline Phosphatase 83 U/L (45-117) 11/05/19 18:40 Albumin 2.0 g/dl (3.4-5.0) L 11/05/19 18:40 INR, PTT INR 1.19 (0.83-1.09) H 10/16/19 06:05 ABG Results ABG pH 7.41 (7.35-7.45) 10/12/19 08:00 ABG pCO2 at Pt Temp 42.7 mmHg (35-45) 10/12/19 08:00 ABG pO2 at Pt Temp 144 mmHg (80-100) H 10/12/19 08:00 ABG HCO3 26.3 mmol/L (22-27) 10/12/19 08:00 ABG O2 Sat (Measured) 99.1 % (95-98) H 10/12/19 08:00 ABG O2 Content 18.3 % vol 10/12/19 08:00 ABG Base Excess 1.9 meq/l (-2-2) 10/12/19 08:00 Assessment/Plan ASSESSMENT: 1. Post acute respiratory failure, clinically resolved 2. Post abdominal hernia repair complicated by small bowel resection and mesh placement, post IR drainage of an abscess 3. Persistent atrial Fibrillation rate controlled [id number] score of 5 on A/C therapy with DOAC's/Eliquis 4. Diastolic LV dysfunction with clinical class 0 NYHA classification LV failure 5. HTN 6. DM 7. Hyperthyroidism 8. Acute renal insufficiency, resolved 9. Anemia 10. History of cervical carcinoma post resection 11. History of colon carcinoma post javi-colectomy PLAN: 1. Continue Lopressor, hemodynamics permitting 2. Continue Cozaar, hemodynamics permitting 3. Continue Lasix 4. Continue A/C with DOAC's/Eliquis, with caution and close monitoring of Hg level, transfuse as needed to maintain Hg equal or > 8.0 5. Antibiotics as per the primary team Meron Perera M.D.
[2019-11-06] MEDS ORDERED: LOSARTAN POTASSIUM 25 MG TABLET PO SCH (08:12)
--- NOTE | 2019-11-06 08:12 | PN ---
Progress Note, Physician Chief Complaint: awake alert no new c/o drain tube removed by surgery; on IV ATB - Current Medication List Current Medications: Active Medications Acetaminophen (Tylenol -) 650 mg PO Q6H PRN PRN Reason: FEVER Last Admin: 10/29/19 15:07 Dose: 650 mg Albuterol Sulfate (Ventolin 0.083% Nebulizer Soln -) 1 amp NEB Q6H PRN PRN Reason: SHORT OF BREATH/WHEEZING Last Admin: 10/30/19 18:26 Dose: 1 amp Apixaban (Eliquis -) 5 mg PO BID [facility] Last Admin: 11/05/19 21:08 Dose: 5 mg Diltiazem HCl (Cardizem Injection -) 10 mg IVPUSH Q4H PRN PRN Reason: TACHYCARDIA Ferrous Sulfate (Feosol -) 325 mg PO DAILY [facility] Last Admin: 11/05/19 11:01 Dose: 325 mg Fluticasone Propionate (Flonase -) 1 spray NS DAILY [facility] Last Admin: 11/05/19 10:46 Dose: 1 spray Furosemide (Lasix -) 20 mg PO DAILY [facility] Last Admin: 11/05/19 11:02 Dose: 20 mg Piperacillin Sod/Tazobactam (Sod 3.375 gm/ Dextrose) 50 mls @ 100 mls/hr IVPB Q8H-IV [facility]; Protocol Last Admin: 11/06/19 01:39 Dose: 100 mls/hr Linezolid (Zyvox 600 Mg Premix Bag (Restricted To Id) -) 600 mg in 300 mls @ 300 mls/hr IVPB Q12H [facility]; Protocol Last Admin: 11/05/19 21:09 Dose: 300 mls/hr Insulin Aspart (Novolog Vial Sliding Scale -) 1 vial SQ ACHS [facility]; Protocol Last Admin: 11/06/19 06:21 Dose: Not Given Latanoprost (Xalatan 0.005% Eye Drops -) 1 drop OD HS [facility] Last Admin: 11/05/19 21:08 Dose: 1 drop Metoprolol Tartrate (Lopressor -) 25 mg PO BID [facility] Last Admin: 11/05/19 21:08 Dose: 25 mg Ondansetron HCl (Zofran Injection) 4 mg IVPUSH Q6H PRN PRN Reason: NAUSEA Last Admin: 11/04/19 18:45 Dose: 4 mg Pantoprazole Sodium (Protonix -) 20 mg PO DAILY [facility] Last Admin: 11/05/19 11:02 Dose: 20 mg Timolol Maleate (Timoptic 0.5%) 1 drop OU BID [facility] Last Admin: 11/05/19 21:09 Dose: 1 drop - Objective Vital Signs: Vital Signs Temperature 97.8 F 11/05/19 18:00 Pulse Rate 75 11/06/19 02:00 Respiratory Rate 16 11/06/19 02:00 Blood Pressure 91/51 L 11/06/19 02:00 O2 Sat by Pulse Oximetry (%) 94 L 11/05/19 21:00 Constitutional: Yes: No Distress, Calm Eyes: Yes: Conjunctiva Clear HENT: Yes: Atraumatic Neck: Yes: Supple Cardiovascular: No: Regular Rate and Rhythm Respiratory: Yes: CTA Bilaterally Gastrointestinal: Yes: Soft. No: Tenderness Genitourinary: No: Hematuria Musculoskeletal: No: Joint Swelling, Muscle Pain Extremities: No: Cold, Cool, Cyanosis Edema: No Integumentary: No: Venous Stasis Changes Neurological: Yes: Alert ...Motor Strength: WNL Psychiatric: Yes: Alert. No: Agitated Labs: CBC, BMP 11/04/19 05:40 11/05/19 18:40 INR, PTT INR 1.19 (0.83-1.09) H 10/16/19 06:05 - ....Imaging Other: Report Reviewed Assessment/Plan 83 yo F h/of Colon Ca (s/p Hemicolectomy, 02/2019), HTN, HLD, Afib ( on Eliquis) , Diastolic CHF, HLD, Hyperthyroidism s/p hernia repair, adhesions, s/p incidental enterotomy and partial small bowel resection / re-anastomosis and mesh placement; surgery f/u s/p abdominal wall collection IR drainage f/u surgery - drain tube removed by surgery ATB per ID stable BP cont metoprolol, cardio f/u; restart losartan; continue eliquis DVT PFX, decubs, aspiration PFX; f/u labs; I/O Graham; incentive spirometry, bedside PT; d.w staff d/w pt
[2019-11-06] MEDS: FERROUS SO4 325 MG TABLET (FP) PO SCH (10:38)
[2019-11-06] MEDS: APIXABAN 5 MG TABLET PO SCH ×2 (10:38→22:42)
[2019-11-06] MEDS: METOPROLOL TARTRATE 25 MG TABLET (FP) PO SCH ×2 (10:38→22:42)
[2019-11-06] MEDS: PANTOPRAZOLE 20 MG TABLET (FP) PO SCH (10:38)
[2019-11-06] MEDS: FUROSEMIDE 20 MG TABLET (FP) PO SCH (10:38)
[2019-11-06] MEDS: LINEZOLID 600 MG PREMIX BAG 600 MG/300 ML BAG IVPB SCH (10:39)
[2019-11-06] MEDS: TIMOLOL 0.5% OPHTHALMIC SOL 5 ML BOTTLE OU SCH ×2 (10:40→22:42)
[2019-11-06] MEDS: FLUTICASONE PROP 0.05% 16 GM NASAL SPRAY NS SCH (10:40)
--- NOTE | 2019-11-06 12:11 | PN ---
Progress Note, Physician History of Present Illness: AWAKE, ALERT IN BED NO COMPLAINTS. DENIES ABDOMINAL PAIN S/P IR DRAINAGE ABDOMINAL FLUID COLLECTION DRAIN REMOVED TEMPS DOWN WBC WNL REPEAT BC NO GROWTH FLUID C/S E COLI, VRE - Current Medication List Current Medications: Active Medications Acetaminophen (Tylenol -) 650 mg PO Q6H PRN PRN Reason: FEVER Last Admin: 10/29/19 15:07 Dose: 650 mg Albuterol Sulfate (Ventolin 0.083% Nebulizer Soln -) 1 amp NEB Q6H PRN PRN Reason: SHORT OF BREATH/WHEEZING Last Admin: 10/30/19 18:26 Dose: 1 amp Apixaban (Eliquis -) 5 mg PO BID [facility] Last Admin: 11/06/19 10:38 Dose: 5 mg Diltiazem HCl (Cardizem Injection -) 10 mg IVPUSH Q4H PRN PRN Reason: TACHYCARDIA Ferrous Sulfate (Feosol -) 325 mg PO DAILY [facility] Last Admin: 11/06/19 10:38 Dose: 325 mg Fluticasone Propionate (Flonase -) 1 spray NS DAILY [facility] Last Admin: 11/06/19 10:40 Dose: 1 spray Furosemide (Lasix -) 20 mg PO DAILY [facility] Last Admin: 11/06/19 10:38 Dose: 20 mg Piperacillin Sod/Tazobactam (Sod 3.375 gm/ Dextrose) 50 mls @ 100 mls/hr IVPB Q8H-IV [facility]; Protocol Last Admin: 11/06/19 10:38 Dose: 100 mls/hr Linezolid (Zyvox 600 Mg Premix Bag (Restricted To Id) -) 600 mg in 300 mls @ 300 mls/hr IVPB Q12H [facility]; Protocol Last Admin: 11/06/19 10:39 Dose: 300 mls/hr Insulin Aspart (Novolog Vial Sliding Scale -) 1 vial SQ ACHS [facility]; Protocol Last Admin: 11/06/19 06:21 Dose: Not Given Latanoprost (Xalatan 0.005% Eye Drops -) 1 drop OD HS [facility] Last Admin: 11/05/19 21:08 Dose: 1 drop Losartan Potassium (Cozaar -) 25 mg PO AM [facility] Metoprolol Tartrate (Lopressor -) 25 mg PO BID [facility] Last Admin: 12/17/19 10:38 Dose: 25 mg Ondansetron HCl (Zofran Injection) 4 mg IVPUSH Q6H PRN PRN Reason: NAUSEA Last Admin: 11/04/19 18:45 Dose: 4 mg Pantoprazole Sodium (Protonix -) 20 mg PO DAILY [facility] Last Admin: 11/06/19 10:38 Dose: 20 mg Timolol Maleate (Timoptic 0.5%) 1 drop OU BID [facility] Last Admin: 11/06/19 10:40 Dose: 1 drop - Objective Vital Signs: Vital Signs Temperature 97.8 F 11/05/19 18:00 Pulse Rate 75 11/06/19 02:00 Respiratory Rate 16 11/06/19 02:00 Blood Pressure 91/51 L 11/06/19 02:00 O2 Sat by Pulse Oximetry (%) 94 L 11/05/19 21:00 Constitutional: Yes: No Distress, Obese Eyes: Yes: Conjunctiva Clear Cardiovascular: Yes: Regular Rate and Rhythm, S1, S2 Respiratory: Yes: CTA Bilaterally Gastrointestinal: Yes: Normal Bowel Sounds, Soft, Abdomen, Obese, Other ( SURGICAL WOUND NO ERYTHEMA/ DRAINAGE). No: Tenderness Edema: No Labs: CBC, BMP 11/04/19 05:40 11/05/19 18:40 INR, PTT INR 1.19 (0.83-1.09) H 10/16/19 06:05 Assessment/Plan S/P IR DRAINAGE ABDOMINAL FLUID COLLECTION S/P INCISIONAL HERNIA REPAIR SUBSTITUTE PO AUGMENTIN/ ZYVOX X 3D
[2019-11-06] MEDS: LINEZOLID 600 MG TABLET (RESTRICTED TO ID) PO SCH ×2 (13:09→22:42)
[2019-11-06] MEDS: ONDANSETRON 4 MG/2 ML VIAL IVPUSH PRN (16:25)
[2019-11-06] MEDS: AMOX TR/POT CLAV 875MG/125MG TABLETS (FP) PO SCH (17:31)
[2019-11-06] MEDS ORDERED: PT OWN MED DRAWER 7, Y5N ONE ×2 (21:10→21:39)
[2019-11-06] MEDS: LATANOPROST 0.005% OPHTH SOLN 2.5ML BOTTLE OD SCH (22:42)
[2019-11-07] MEDS: INSULIN SLIDING SCALE (NOVOLOG) 1 VIAL SQ SCH (06:06)
--- NOTE | 2019-11-07 07:37 | DS ---
"Physical Examination Vital Signs: Vital Signs Temperature 98.5 F 11/07/19 06:00 Pulse Rate 88 11/07/19 06:00 Respiratory Rate 17 11/07/19 06:00 Blood Pressure 112/88 11/07/19 06:00 O2 Sat by Pulse Oximetry (%) 94 L 11/06/19 21:00 Findings/Remarks: awake alert NAD afebrile VSS no pain no cough / SOB had BM ate OK stable for DC to SNF d/w surgery dr Alvarado and ID dr Low po ATB x3 days f/u with surgery next week d/w pt and daughter Cintia Constitutional: Yes: No Distress, Calm Eyes: Yes: Conjunctiva Clear HENT: Yes: Atraumatic Neck: Yes: Supple Cardiovascular: Yes: Regular Rate and Rhythm Respiratory: Yes: CTA Bilaterally Gastrointestinal: Yes: Soft, Other (wounds clean healing no bleed no rash no edema no tenderness). No: Tenderness Renal/: No: Hematuria Musculoskeletal: No: Joint Stiffness, Joint Swelling Extremities: No: Cold, Cool, Cyanosis Edema: No Integumentary: No: Pressure Ulcer, Rash, Venous Stasis Changes Neurological: Yes: Alert ...Motor Strength: WNL Psychiatric: Yes: Alert. No: Agitated Discharge Summary Problems reviewed: Yes Reason For Visit: INCISIONAL HERNIA Current Active Problems S/P repair of ventral hernia (Acute) Procedures: Principal: 84 YOF Multiple comorbidities ASHD CHF AFib COPD OA DJD Obesity resting tremors, anemia, colon CA s/p hemicolectomy developed hernia post resection, admitted for elective hernia repair, had prolonged postop course respiratory failure, RAFib, CHF, intubated for few days postop, CHF treatment per cardio, HR control; lasix; iv steroids per pulm; extubated succesfully; consequnetly developed abdominal wall collection after surgery had tube draining by IR; was on braod spectrum ATB per ID; improved. Path negative for recurrent malignancy. Other Procedures: also seen by cardiology, pulmonary, heme onc, surgery; IR Hospital Course: see above; improved and ready for rehab at SNF; needs close f/u with surgery - to see dr Alvarado within 1 week from H DC; also close f/u with cardiology, GI, pulmonary and heme onc after DC from SNF Health Concerns: see above Plan of Treatment: see above Goals: rehab Condition: Improved - Instructions Diet, Activity, Other Instructions: f/u PCP, GI, cardiology, pulmonary in 1-4 weeks after DC from [place]; see surgery in 1 week after DC from [facility] if fever pain or new c/o check labs in 1 week CBC CMP TSH after DC from (in [place]) Dr. Alvarado Discharge Instructions Post Operative Instructions Physical activity Resume your normal everyday activity as tolerated no heavy lifting or exercise until seen by your surgeon. You may walk unlimited amounts of and climb stairs. You may resume driving the car when you feel safe and comfortable behind the wheel and are no longer taking narcotic pain medications. Wound care If you have a bandage, leave it on, and keep dry for 48 - 72 hours. After that time discard the outer bandage. If there are tapes on the skin under the outer bandage, leave them in place. They will peel off in the next 7 to 10 days. Do Not peel them off. You may shower 2 days after surgery. If there are tapes present on the skin, they can get wet. Diet There are no dietary restrictions. Eat healthy, high-fiber foods. Drink 6 to 8 glasses of liquid each day. This will assist in keeping your bowels are regular. Pain management You may take Tylenol or acetaminophen or Ibuprofen (for example, Motrin, Advil etc.) Any pain prescription medication ordered should be taken as prescribed for moderate to severe pain. Do not drive, drink alcohol or operate heavy machinery while taking narcotic pain medications. ISTOP: Rx Written Rx Dispensed Drug Quantity Days Supply Prescriber Name 06/21/2019 06/21/2019 tramadol hcl 50 mg tablet 30 30 Elle Bauer MD This report was requested by: Soledad Escalona | Reference #: [id number] Call Dr. Alvarado for any of the following: Severe pain not relieved by medication Fever of 101 or higher Excessive bleeding or drainage on dressing Inability to urinate Call the office at [phone] for a post operative appointment in 7 - 10 days. Referrals: Elle Bauer [Staff Physician] - John Alvarado MD [Staff Physician] - Fredrick Montiel MD [Staff Physician] - Kofi Leong DO [Staff Physician] - Jimmie,, MD [Staff Physician] - Disposition: CARE HOME FACILITY - Home Medications Comprehensive Discharge Medication List: Ambulatory Orders Bimatoprost [Lumigan] 1 drop OU DAILY 04/09/17 Brimonidine Tartrate/Timolol [Combigan 0.2%-0.5% Eye Drops] 5 ml OU BID Latanoprost 0.005% Eye Drops [Xalatan 0.005% Eye Drops -] 1 drop HS 02/14/19 Methimazole 10 mg PO BID 02/14/19 Apixaban [Eliquis -] 5 mg PO BID tablet 03/02/19 Ascorbic Acid [Vitamin C -] 500 mg PO DAILY tablet 03/02/19 Metoprolol Tartrate [Lopressor -] 50 mg PO BID tablet 03/02/19 Acetaminophen [Tylenol .Regular Strength -] 650 mg PO Q6H PRN tablet 03/16/19 Nitroglycerin Sublingual [Nitrostat -] 0.4 mg SL Q5M PRN tab 03/20/19 Albuterol 0.083% Nebulizer Kathrin [Ventolin 0.083% Nebulizer Soln -] 1 amp NEB Q6H PRN amp 03/29/19 Alendronate Sodium [Fosamax] 1 tab PO WEEKLY 10/08/19 Calcium (Oyster Shell) [Os-Dioni 500MG -] 500 mg PO DAILY 10/08/19 Fluticasone Prop 0.05% Nasal [Flonase -] 1 - 2 spray NS DAILY 10/08/19 Mirabegron [Myrbetriq] 50 mg PO DAILY 10/08/19 Acetaminophen [Tylenol .Regular Strength -] 650 mg PO Q6H PRN tablet 10/28/19 Albuterol 0.083% Nebulizer Kathrin [Ventolin 0.083% Nebulizer Soln -] 1 amp NEB Q6H PRN amp 10/28/19 Ferrous Sulfate [Feosol] 325 mg PO DAILY ud 10/28/19 Furosemide [Lasix -] 20 mg PO DAILY tablet 10/28/19 Insulin Sliding Scale [Novolog Vial Sliding Scale -] 1 vial SQ ACHS units 10/28 Pantoprazole Sodium [Protonix -] 20 mg PO DAILY tablet.ec 10/28/19 Valsartan [Diovan] 40 mg PO DAILY tablet 10/28/19 Amox-Tr/K Cl [Augmentin 875-125mg Tablet -] 1 tab PO BID@0800,1730 3 Days #6 tablet 11/06/19 Apixaban [Eliquis -] 5 mg PO BID tablet 11/06/19 Linezolid [Zyvox (Restricted To Id) -] 600 mg PO BID 3 Days #6 tablet 11/06/19 Losartan Potassium [Cozaar -] 25 mg PO AM tablet 11/06/19"
[2019-11-07 07:55] LABS: BASO % 0.5 % (0-2.0); EOS % 6.5 % (0-4.5); HEMATOCRIT 28.9 % (32.4-45.2); HEMOGLOBIN 9.6 GM/dL (10.7-15.3); LYMPH % 29.5 % (8-40); MCH 28.9 pg (25.7-33.7); MCHC 33.3 g/dl (32.0-36.0); MEAN CELL VOLUME 86.9 fl (80-96); MONO % 13.1 % (3.8-10.2); NEUT % 50.4 % (42.8-82.8); PLATELET COUNT 582 K/MM3 (134-434); RBC 3.33 M/mm3 (3.60-5.2); RDW 15.9 % (11.6-15.6); WHITE BLOOD COUNT 5.3 K/mm3 (4.0-10.0)
[2019-11-07 08:11] LABS: BLOOD UREA NITROGEN 7.6 mg/dL (7-18); CALCIUM 8.5 mg/dL (8.5-10.1); CREATININE 0.6 mg/dL (0.55-1.3); POTASSIUM 4.2 mmol/L (3.5-5.1)
[2019-11-07] MEDS: AMOX TR/POT CLAV 875MG/125MG TABLETS (FP) PO SCH (09:25)
[2019-11-07] MEDS: FERROUS SO4 325 MG TABLET (FP) PO SCH (09:25)
[2019-11-07] MEDS: FUROSEMIDE 20 MG TABLET (FP) PO SCH (09:25)
[2019-11-07] MEDS: APIXABAN 5 MG TABLET PO SCH (09:25)
[2019-11-07] MEDS: PANTOPRAZOLE 20 MG TABLET (FP) PO SCH (09:25)
[2019-11-07] MEDS: METOPROLOL TARTRATE 25 MG TABLET (FP) PO SCH (09:25)
[2019-11-07] MEDS: TIMOLOL 0.5% OPHTHALMIC SOL 5 ML BOTTLE OU SCH (09:26)
[2019-11-07] MEDS ORDERED: PT OWN MED DRAWER 7, Y5N ONE (09:31)
[2019-11-07] MEDS: LINEZOLID 600 MG TABLET (RESTRICTED TO ID) PO SCH (10:22)
[2019-11-07 10:49] VITALS: BP 109/58; PULSE 86; TEMP 98.3
[2019-11-07] MEDS: FLUTICASONE PROP 0.05% 16 GM NASAL SPRAY NS SCH (11:21)
[2019-11-07 11:54] LABS: ANISOCYTOSIS 1+; MACROCYTOSIS 0; PLATELET ESTIMATE INCREASED; TARGET CELLS 1+
== END 2019-11-07 11:15 | DRG 982 ==
LOC: JASUSAT 09:25 → JICU 16:41 → J2W 10-16 20:46
PROVIDERS: ADMIT Internal Medicine; ATTEND Internal Medicine
PROC: 5A1945Z Respiratory Ventilation, 24-96 Consecutive Hours (ICD-10-PCS; 2019-10-08)
PROC: 0WUF0JZ Supplement Abdominal Wall with Synthetic Substitute, Open Approach (ICD-10-PCS; principal; 2019-10-08 11:30)
PROC: 0DB80ZZ Excision of Small Intestine, Open Approach (ICD-10-PCS; 2019-10-08 11:30)
PROC: 5A1945Z Respiratory Ventilation, 24-96 Consecutive Hours (ICD-10-PCS; 2019-10-12)
PROC: 0BH17EZ Insertion of Endotracheal Airway into Trachea, Via Natural or Artificial Opening (ICD-10-PCS; 2019-10-12)
PROC: 30233N1 Transfusion of Nonautologous Red Blood Cells into Peripheral Vein, Percutaneous Approach (ICD-10-PCS; 2019-10-24)
PROC: 0W9F30Z Drainage of Abdominal Wall with Drainage Device, Percutaneous Approach (ICD-10-PCS; 2019-10-30)
DX: J95.821 Acute postprocedural respiratory failure (principal); I50.32 Chronic diastolic (congestive) heart failure; I48.19 Other persistent atrial fibrillation; L76.32 Postprocedural hematoma of skin and subcutaneous tissue following other procedure; L02.211 Cutaneous abscess of abdominal wall; K43.2 Incisional hernia without obstruction or gangrene; R00.1 Bradycardia, unspecified; E83.51 Hypocalcemia; I95.9 Hypotension, unspecified; R31.9 Hematuria, unspecified; I11.0 Hypertensive heart disease with heart failure; E88.09 Other disorders of plasma-protein metabolism, not elsewhere classified; I48.91 Unspecified atrial fibrillation; E83.39 Other disorders of phosphorus metabolism; E83.41 Hypermagnesemia; Z79.01 Long term (current) use of anticoagulants; G20 Parkinson's disease; J45.909 Unspecified asthma, uncomplicated; R82.71 Bacteriuria; Z85.038 Personal history of other malignant neoplasm of large intestine; E05.90 Thyrotoxicosis, unspecified without thyrotoxic crisis or storm; E01.0 Iodine-deficiency related diffuse (endemic) goiter; R59.0 Localized enlarged lymph nodes; D64.9 Anemia, unspecified; E78.5 Hyperlipidemia, unspecified; Y83.8 Other surgical procedures as the cause of abnormal reaction of the patient, or of later complication, without mention of misadventure at the time of the procedure; E66.9 Obesity, unspecified; Z68.34 Body mass index [BMI] 34.0-34.9, adult; H40.9 Unspecified glaucoma; Y84.8 Other medical procedures as the cause of abnormal reaction of the patient, or of later complication, without mention of misadventure at the time of the procedure; Z86.73 Personal history of transient ischemic attack (TIA), and cerebral infarction without residual deficits
CPT/HCPCS: 10030; 36415; 36430; 36511; 36600; 70360-TC-FY; 70491-TC; 71045-TC-FY; 74176-TC; 74230-TC-FY; 76098-TC-FY; 77012-TC; 80048; 80053; 82272; 82803; 82962; 83735; 84100; 84439; 84443; 85025; 85027; 85610; 85730; 86850; 86900; 86901; 86922; 87040; 87070; 87075; 87076; 87077; 87086; 87102; 87186; 87205; 87210; 87324; 87449; 87899; 92611-GN; 93005; 93010; 93306-TC; 94002; 94640; 94760; 97116-GP; 97161-GP; A4358; C1729; C1769; J0131; J1100; J1644; J7030; P9038; P9058; Q2036

== ENCOUNTER 2019-11-25 14:40 | Emergency (ER) | payer OTHER ==
--- NOTE | 2019-11-25 14:45 | PDOC ---
History of Present Illness - General Chief Complaint: Back Pain Stated Complaint: PAIN Time Seen by Provider: 11/25/19 14:44 - History of Present Illness Initial Comments: HPI: 84yo F with PMH of anemia, afib on eliquis, borderline DM, HTN, hypothyroidism, colon CA s/p resection on 02/20/19 and hernia repair on 10/08/19 presenting with right-sided back pain x 1 week. Daughter is at the bedside providing collateral history. Patient additionally complains of dysuria, nausea, and vomiting over that time period as well. Has had poor po intake. Also reports hematuria or bloody stool, but is unsure which it is. Her surgical site had been draining foul-smelling fluid, but this has lessened. Overall, the daughter believes that the wound has been healing well. Denies chest pain or shortness of breath. No fevers, but endorses chills. PCP: Dr. Bauer ROS: Constitutional: no fever, +chills HEENT: no throat pain, no dysphagia Cardiovascular: no chest pain, no palpitations Respiratory: no cough, no shortness of breath Gastrointestinal: +abdominal pain, +vomiting Genitourinary: +dysuria, +hematuria Musculoskeletal: no myalgia, no arthralgia Skin: no rash, no itching Neurologic: no headache, no weakness PE: General: Awake, alert, and fully oriented, in no acute distress Head: No signs of trauma Eyes: EOMI, sclera anicteric ENT: Moist mucus membranes Neck: Normal ROM, supple Lungs: Lungs clear, Normal breath sounds Cardio: Regular rhythm, S1 and S2 present Abdomen: Soft, tender to palpation diffusely most focal to right lowe quadrant radiating to right flank Extremities: Normal range of motion, Distal pulses present SKIN: Warm, Dry, normal turgor Neurologic: Cranial nerves II through XII grossly intact. Normal speech ED Course/MDM: DDX including but not limited to post-surgical complication, mesenteric ischemia , UTI, ACS, anemia, metabolic derangement Labs, EKG, CXR CTAP with IV contrast Ofirmev 11/25/19 14:45 EKG: rate 122, QTc 532, afib with RVR, RBBB also present on previous EKG performed on 10/12/19 Fluid bolus ordered for the RVR 11/25/19 16:26 CBC WBC 5.9 K/mm3 (4.0-10.0) 11/25/19 16:15 RBC 3.90 M/mm3 (3.60-5.2) 11/25/19 16:15 Hgb 10.9 GM/dL (10.7-15.3) 11/25/19 16:15 Hct 34.5 % (32.4-45.2) D 11/25/19 16:15 MCV 88.5 fl (80-96) 11/25/19 16:15 MCH 27.9 pg (25.7-33.7) 11/25/19 16:15 MCHC 31.6 g/dl (32.0-36.0) L 11/25/19 16:15 RDW 17.2 % (11.6-15.6) H 11/25/19 16:15 Plt Count 352 K/MM3 (134-434) D 11/25/19 16:15 MPV 7.8 fl (7.5-11.1) D 11/25/19 16:15 Absolute Neuts (auto) 3.2 K/mm3 (1.5-8.0) 11/25/19 16:15 Neutrophils % 54.6 % (42.8-82.8) 11/25/19 16:15 Lymphocytes % 28.4 % (8-40) 11/25/19 16:15 Monocytes % 13.6 % (3.8-10.2) H 11/25/19 16:15 Eosinophils % 2.5 % (0-4.5) 11/25/19 16:15 Basophils % 0.9 % (0-2.0) 11/25/19 16:15 Nucleated RBC % 0 % (0-0) 11/25/19 16:15 No leukocytosis UA negative for hematuria or infection Pending chemistries 11/25/19 16:35 CMP Sodium 141 mmol/L (136-145) 11/25/19 16:15 Potassium 3.3 mmol/L (3.5-5.1) L 11/25/19 16:15 Chloride 104 mmol/L (98-107) 11/25/19 16:15 Carbon Dioxide 29 mmol/L (21-32) 11/25/19 16:15 Anion Gap 8 MMOL/L (8-16) 11/25/19 16:15 BUN 10.4 mg/dL (7-18) 11/25/19 16:15 Creatinine 0.6 mg/dL (0.55-1.3) 11/25/19 16:15 Est GFR (CKD-EPI)AfAm 97.69 11/25/19 16:15 Est GFR (CKD-EPI)NonAf 84.29 11/25/19 16:15 Random Glucose 103 mg/dL (74-106) 11/25/19 16:15 Lactic Acid 1.6 mmol/L (0.4-2.0) 11/25/19 16:15 Calcium 9.0 mg/dL (8.5-10.1) 11/25/19 16:15 Total Bilirubin 0.3 mg/dL (0.2-1) 11/25/19 16:15 AST 28 U/L (15-37) 11/25/19 16:15 ALT 21 U/L (13-61) 11/25/19 16:15 Alkaline Phosphatase 128 U/L (45-117) H 11/25/19 16:15 Troponin I < 0.02 ng/ml (0.00-0.05) 11/25/19 16:15 Total Protein 6.3 g/dl (6.4-8.2) L 11/25/19 16:15 Albumin 2.8 g/dl (3.4-5.0) L 11/25/19 16:15 Electrolytes unremarkable Normal Cr Normal lactate No transaminitis Tpn undetectable Pending CT report Patient signed out to Dr. Carrillo and night team Past History - Past Medical History Allergies/Adverse Reactions: Allergies Allergy/AdvReac Type Severity Reaction Status Date / Time No Known Allergies Allergy Verified 10/05/19 17:29 Home Medications: Ambulatory Orders Bimatoprost [Lumigan] 1 drop OU DAILY 04/09/17 Brimonidine Tartrate/Timolol [Combigan 0.2%-0.5% Eye Drops] 5 ml OU BID Latanoprost 0.005% Eye Drops [Xalatan 0.005% Eye Drops -] 1 drop HS 02/14/19 Methimazole 10 mg PO BID 02/14/19 Apixaban [Eliquis -] 5 mg PO BID tablet 03/02/19 Ascorbic Acid [Vitamin C -] 500 mg PO DAILY tablet 03/02/19 Metoprolol Tartrate [Lopressor -] 50 mg PO BID tablet 03/02/19 Acetaminophen [Tylenol .Regular Strength -] 650 mg PO Q6H PRN tablet 03/16/19 Nitroglycerin Sublingual [Nitrostat -] 0.4 mg SL Q5M PRN tab 03/20/19 Albuterol 0.083% Nebulizer Kathrin [Ventolin 0.083% Nebulizer Soln -] 1 amp NEB Q6H PRN amp 03/29/19 Alendronate Sodium [Fosamax] 1 tab PO WEEKLY 10/08/19 Calcium (Oyster Shell) [Os-Dioni 500MG -] 500 mg PO DAILY 10/08/19 Fluticasone Prop 0.05% Nasal [Flonase -] 1 - 2 spray NS DAILY 10/08/19 Mirabegron [Myrbetriq] 50 mg PO DAILY 10/08/19 Acetaminophen [Tylenol .Regular Strength -] 650 mg PO Q6H PRN tablet 10/28/19 Albuterol 0.083% Nebulizer Kathrin [Ventolin 0.083% Nebulizer Soln -] 1 amp NEB Q6H PRN amp 10/28/19 Ferrous Sulfate [Feosol] 325 mg PO DAILY ud 10/28/19 Furosemide [Lasix -] 20 mg PO DAILY tablet 10/28/19 Insulin Sliding Scale [Novolog Vial Sliding Scale -] 1 vial SQ ACHS units 10/28 Pantoprazole Sodium [Protonix -] 20 mg PO DAILY tablet.ec 10/28/19 Valsartan [Diovan] 40 mg PO DAILY tablet 10/28/19 Amox-Tr/K Cl [Augmentin 875-125mg Tablet -] 1 tab PO BID@0800,1730 3 Days #6 tablet 11/06/19 Apixaban [Eliquis -] 5 mg PO BID tablet 11/06/19 Linezolid [Zyvox (Restricted To Id) -] 600 mg PO BID 3 Days #6 tablet 11/06/19 Losartan Potassium [Cozaar -] 25 mg PO AM tablet 11/06/19 Anemia: Yes (receives iron infusions) Asthma: Yes Cancer: Yes (cervical, colon) Cardiac Disorders: Yes (A-FIB) CVA: No COPD: No CHF: Yes DVT: No Dementia: No Diabetes: Yes (borderline) GI Disorders: Yes (gerd) Disorders: No HTN: Yes Hypercholesterolemia: Yes Liver Disease: No Seizures: No Thyroid Disease: Yes (hyperthyroid) - Surgical History Abdominal Surgery: Yes (S/P Hemicolectomy (02/20/19)) Appendectomy: No Cardiac Surgery: No Cholecystectomy: No Lung Surgery: No Neurologic Surgery: No - Immunization History Immunization Up to Date: (Unknown) - Psycho Social/Smoking Cessation Hx Smoking History: Never smoked Have you smoked in the past 12 months: No Number of Cigarettes Smoked Daily: 0 Hx Alcohol Use: No Drug/Substance Use Hx: No Substance Use Type: None Hx Substance Use Treatment: No ED Treatment Course - LABORATORY CBC & Chemistry Diagram: 11/25/19 16:15 11/25/19 16:15 Discharge - Discharge Information Problems reviewed: Yes Clinical Impression/Diagnosis: Abdominal pain Qualifiers: Abdominal location: right lower quadrant Qualified Code(s): R10.31 - Right lower quadrant pain Fluid collection at surgical site Qualifiers: Encounter type: initial encounter Qualified Code(s): T88.8XXA - Other specified complications of surgical and medical care, not elsewhere classified, initial encounter Condition: Stable Disposition: [facility] F[facility] - Follow up/Referral Referrals: Ashwin Calles [Primary Care Provider] - - Patient Discharge Instructions Patient Printed Discharge Instructions: DI for Abdominal Pain-Adult Additional Instructions: You came into the emergency department for abdominal pain. Labs, EKG, and CT imaging did not indicate acute pathology. Follow-up with your primary care provider within 72 hours to discuss this ED visit and to further evaluate your symptoms. Call today or tomorrow morning and make an appointment. Your workup is not complete until you do so. Immediate medical attention is required if you develop: worsening pain, high fevers, persistent nausea, vomiting, or any new or concerning symptoms. If you think you are having an emergency, call for emergency medical services or present to the emergency department right away. - Post Discharge Activity
[2019-11-25 15:11] VITALS: BP 111/68; PULSE 110; TEMP 98.9; BMI 29.2
[2019-11-25] MEDS ORDERED: ACETAMINOPHEN 1000 MG/100 ML VIAL (NON FORMULARY) IVPB ONE (15:30)
[2019-11-25] MEDS ORDERED: ACETAMINOPHEN INJECTION 100 ML IVPB ONE (15:42)
[2019-11-25 16:23] LABS: BASO % 0.9 % (0-2.0); EOS % 2.5 % (0-4.5); HEMATOCRIT 34.5 % (32.4-45.2); HEMOGLOBIN 10.9 GM/dL (10.7-15.3); LYMPH % 28.4 % (8-40); MCH 27.9 pg (25.7-33.7); MCHC 31.6 g/dl (32.0-36.0); MEAN CELL VOLUME 88.5 fl (80-96); MEAN PLT VOLUME 7.8 fl (7.5-11.1); MONO % 13.6 % (3.8-10.2); NEUT % 54.6 % (42.8-82.8); PLATELET COUNT 352 K/MM3 (134-434); RDW 17.2 % (11.6-15.6); WHITE BLOOD COUNT 5.9 K/mm3 (4.0-10.0)
[2019-11-25] MEDS ORDERED: SODIUM CHLORIDE 1,000 ML IV STA (16:26)
--- NOTE | 2019-11-25 16:33 | PDOC ---
Attending Attestation - Resident Resident Name: Lisa Godinez - ED Attending Attestation I have performed the following: I have examined & evaluated the patient, The case was reviewed & discussed with the resident, I agree w/resident's findings & plan, Exceptions are as noted - HPI HPI: 11/25/19 16:31 84 F with h/o anemia, afib on eliquis, DM, HTN, colon CA s/p resection, hernia repair 10/08/19, presenting with R sided abdominal and back pain. Pt reports 1 week of worsening pain. Endorses dysuria, as well as nausea and vomiting. Denies any diarrhea/constipation. No F/C. Reports foul smelling drainage from her surgical site but states this has improved somewhat. - Physicial Exam PE: 11/25/19 16:32 Agree w/ resident exam - Medical Decision Making 11/25/19 16:32 84 F with abdominal and back pain, recently post-op from hernia repair. Will r/ o intraabdominal infection. Pt also found to be in afib with RVR with HR 122. Possibly 2/2 infectious process vs dehydration. Will resuscitate and rate control as needed. - Labs - CTAP - IVF, pain control 11/25/19 19:09 Labs wnl CTAP pending Pt still mildly tachycardic, now given home dose metoprolol Dispo pending CT and reassessment of vitals Pt signed out to oncoming attending at 7PM.
[2019-11-25 16:34] LABS: PH,URINE 5.5 (5.0-8.0); URINE APPEARANCE CLEAR; URINE BILIRUBIN NEGATIVE (NEGATIVE); URINE COLOR YELLOW; URINE GLUCOSE (UA) NEGATIVE (NEGATIVE); URINE KETONE TRACE (NEGATIVE); URINE LEUK ESTERASE NEGATIVE (NEGATIVE); URINE NITRITE NEGATIVE (NEGATIVE); URINE PROTEIN NEGATIVE (NEGATIVE); URINE UROBILINOGEN 0.2 mg/dL (0.2-1.0)
[2019-11-25 16:35] LABS: INR 1.24 (0.83-1.09); PROTHROMBIN TIME (PATIENT) 14.7 SEC (9.7-13.0)
[2019-11-25 16:53] LABS: ALBUMIN 2.8 g/dl (3.4-5.0); BILIRUBIN,TOTAL 0.3 mg/dL (0.2-1); BLOOD UREA NITROGEN 10.4 mg/dL (7-18); CREATININE 0.6 mg/dL (0.55-1.3); POTASSIUM 3.3 mmol/L (3.5-5.1); TOT PROT 6.3 g/dl (6.4-8.2)
[2019-11-25] MEDS ORDERED: METOPROLOL TARTRATE 50 MG TABLET (FP) PO ONE (19:08)
--- NOTE | 2019-11-25 19:08 | PDOC ---
*Physical Exam - Vital Signs Last Vital Signs Temp Pulse Resp BP Pulse Ox 98.9 F 110 H 19 111/68 11/25/19 14:45 11/25/19 14:45 11/25/19 14:45 11/25/19 14:45 ED Treatment Course - LABORATORY CBC & Chemistry Diagram: 11/25/19 16:15 11/25/19 16:15 - ADDITIONAL ORDERS Additional order review: Laboratory Results 11/25/19 11/25/19 11/25/19 16:15 16:15 16:15 PT with INR INR Sodium Potassium Chloride Carbon Dioxide Anion Gap BUN Creatinine Est GFR (CKD-EPI)AfAm Est GFR (CKD-EPI)NonAf Random Glucose Lactic Acid Calcium Total Bilirubin AST ALT Alkaline Phosphatase Troponin I < 0.02 Total Protein Albumin Urine Color Yellow Urine Appearance Clear Urine pH 5.5 Ur Specific [place] 1.025 Urine Protein Negative Urine Glucose (UA) Negative Urine Ketones Trace H Urine Blood Negative Urine Nitrite Negative Urine Bilirubin Negative Urine Urobilinogen 0.2 Ur Leukocyte Esterase Negative Stool Occult Blood Negative 11/25/19 11/25/19 11/25/19 16:15 16:15 16:15 PT with INR 14.70 H INR 1.24 H Sodium 141 Potassium 3.3 L Chloride 104 Carbon Dioxide 29 Anion Gap 8 BUN 10.4 Creatinine 0.6 Est GFR (CKD-EPI)AfAm 97.69 Est GFR (CKD-EPI)NonAf 84.29 Random Glucose 103 Lactic Acid 1.6 Calcium 9.0 Total Bilirubin 0.3 AST 28 ALT 21 Alkaline Phosphatase 128 H Troponin I Total Protein 6.3 L Albumin 2.8 L Urine Color Urine Appearance Urine pH Ur Specific [place] Urine Protein Urine Glucose (UA) Urine Ketones Urine Blood Urine Nitrite Urine Bilirubin Urine Urobilinogen Ur Leukocyte Esterase Stool Occult Blood 11/25/19 16:15 RBC 3.90 MCV 88.5 MCHC 31.6 L RDW 17.2 H MPV 7.8 D Neutrophils % 54.6 Lymphocytes % 28.4 Monocytes % 13.6 H Eosinophils % 2.5 Basophils % 0.9 - Medications Given in the ED: ED Medications Discontinued Medications Generic Name Dose Route Start Last Admin Trade Name Freq PRN Reason Stop Dose Admin Acetaminophen 1,000 mg 11/25/19 15:30 11/25/19 15:41 Ofirmev Injection - IVPB 11/25/19 15:31 1,000 mg ONCE ONE Administration Sodium Chloride 1,000 mls @ 1,000 mls/hr 11/25/19 16:26 11/25/19 16:35 Normal Saline - IV 11/25/19 17:25 1,000 mls/hr ASDIR STA Administration Medical Decision Making - Medical Decision Making 11/25/19 20:55 CT scan shows 5.1cm fluid collection. Patient is afebrile, no white count. Spoke with Dr. Alvarado, recommends outpatient follow up and can actually see the patient this Tuesday. Discussed plan with the patient and her family, and they are all in agreement. HR down to the 90s after receiving home dose of metoprolol. [facility] dc [facility]. Discharge - Discharge Information Problems reviewed: Yes Clinical Impression/Diagnosis: Fluid collection at surgical site Abdominal pain Qualifiers: Abdominal location: right lower quadrant Qualified Code(s): R10.31 - Right lower quadrant pain Condition: Stable Disposition: HOME - Follow up/Referral Referrals: Ashwin Calles [Primary Care Provider] - - Patient Discharge Instructions Patient Printed Discharge Instructions: DI for Abdominal Pain-Adult Additional Instructions: You came into the emergency department for abdominal pain. Labs, EKG, and CT imaging did not indicate acute pathology. Follow-up with your primary care provider within 72 hours to discuss this ED visit and to further evaluate your symptoms. Call today or tomorrow morning and make an appointment. Your workup is not complete until you do so. Immediate medical attention is required if you develop: worsening pain, high fevers, persistent nausea, vomiting, or any new or concerning symptoms. If you think you are having an emergency, call for emergency medical services or present to the emergency department right away. - Post Discharge Activity
[2019-11-25] MEDS ORDERED: ONDANSETRON 4 MG/2 ML VIAL IVPUSH ONE (19:10)
[2019-11-25] MEDS ORDERED: METOPROLOL TARTRATE 50 MG TABLET (FP) ONE (19:49)
[2019-11-25] MEDS ORDERED: ONDANSETRON 4 MG/2 ML VIAL ONE (19:49)
--- NOTE | 2019-11-26 10:08 | EKG ---
Test Reason : Blood Pressure : / mmHG Vent. Rate : 122 BPM Atrial Rate : 115 BPM P-R Int : 000 ms QRS Dur : 150 ms QT Int : 374 ms P-R-T Axes : 000 -30 008 degrees QTc Int : 532 ms ATRIAL FIBRILLATION WITH RAPID VENTRICULAR RESPONSE LEFT AXIS DEVIATION RIGHT BUNDLE BRANCH BLOCK ABNORMAL ECG WHEN COMPARED WITH ECG OF 12-OCT-2019 08:11, VENT. RATE HAS INCREASED BY 71 BPM Confirmed by ANTOINE FLORES MD ([id number]) on 11/26/2019 10:07:56 AM Referred By: Confirmed By:ANTOINE FLORES MD
== END 2019-11-25 23:18 ==
LOC: JER 14:40
PROC: 3E0337Z Introduction of Electrolytic and Water Balance Substance into Peripheral Vein, Percutaneous Approach (ICD-10-PCS; principal; 2019-11-25)
PROC: 3E033GC Introduction of Other Therapeutic Substance into Peripheral Vein, Percutaneous Approach (ICD-10-PCS; 2019-11-25)
PROC: 3E033NZ Introduction of Analgesics, Hypnotics, Sedatives into Peripheral Vein, Percutaneous Approach (ICD-10-PCS; 2019-11-25)
DX: R10.31 Right lower quadrant pain (principal); T88.8XXA Other specified complications of surgical and medical care, not elsewhere classified, initial encounter; Z98.890 Other specified postprocedural states; D64.9 Anemia, unspecified; I48.91 Unspecified atrial fibrillation; Z79.01 Long term (current) use of anticoagulants; I10 Essential (primary) hypertension; E11.9 Type 2 diabetes mellitus without complications; E03.9 Hypothyroidism, unspecified; Z85.038 Personal history of other malignant neoplasm of large intestine; Z90.49 Acquired absence of other specified parts of digestive tract; Z79.4 Long term (current) use of insulin; K21.9 Gastro-esophageal reflux disease without esophagitis
CPT/HCPCS: 36415; 71045-TC-FY; 74177-TC; 80053; 81003; 82272; 83605; 84484; 85025; 85610; 87086; 93005; 93010; 96361; 96374; 96375; 99283-25; J0131; J7030; Q9967

== ENCOUNTER 2020-01-08 13:17 | Inpatient (IN) | payer OTHER ==
[2020-01-08] MEDS ORDERED: SODIUM CHLORIDE 2,082 ML IV ONE (14:13)
--- NOTE | 2020-01-08 14:20 | PDOC ---
Attending Attestation - Resident Resident Name: Ru Hill - ED Attending Attestation I have performed the following: I have examined & evaluated the patient, The case was reviewed & discussed with the resident, I agree w/resident's findings & plan, Exceptions are as noted - HPI HPI: 01/08/20 14:15 84-year-old female history of anemia, A. fib, diabetes, hypertension, lipidemia , colon cancer status post resection and hernia repair complicated by enerocutaneous fistula presents with hypotension. Per family the patient has been generally weak since her surgery September, however the past week she has had decrease in her appetite and increasing her generalized weakness. Family also notes increased discharge from her enterocutaneous fistula and increasing complaint of pain in the abdomen. Family notes her visiting nurse checked her blood pressure noted her blood pressure was hypotensive so recommended the patient come to the ER for evaluation. The patient complains of mild diffuse abdominal pain however denies any chest pain, shortness of breath, cough, headache, dysuria, diarrhea, BPR, melena. PCP is Dr. Bauer Surgeon: Dr. Alvarado - Physicial Exam PE: 01/08/20 14:17 GENERAL: The patient is awake, alert, and fully oriented, Nontoxic - in no acute distress. HEAD: Normocephalic, atraumatic. EYES: extraocular movements intact, sclera anicteric, pale conjunctiva ENT: Normal voice, Moist mucous membranes. NECK: Normal range of motion, supple LUNGS: Breath sounds equal, clear to auscultation bilaterally. No wheezes, no rhonchi, no rales. HEART: Tachycardic, normal S1 and S2 without murmur, rub or gallop. ABDOMEN: Soft, enterocutaneous fistula present in the midline with presence of stool, no significant induration, erythema, fluctuance. Her abdomen is R sided abdomen tender with involuntary gurading. +L CVA tenderness EXTREMITIES: Normal range of motion, no edema. NEUROLOGICAL: No facial assymetry, Normal speech, moving all fours extremities spontaneously and symmetrically PSYCH: Normal mood, normal affect. SKIN: Warm, Dry, normal turgor, - Critical Care Time Total Critical Care Time: 45 Critical Care Statement: The care of this patient involved high complexity decision making to prevent further life threatening deterioration of the patient 's condition and/or to evaluate & treat vital organ system(s) failure or risk of failure. - Medical Decision Making 01/08/20 14:17 Upon arrival the patient was noted to be tachycardic to 120s hypotensive to the 80s over 50s. She is pale appearing but otherwise in no acute distress. Differential for the patient's symptoms includes possible UTI, abdominal infection, pneumonia, dehydration, anemia Sepsis order set was initiated, will fluid resuscitate the patient. 2 IVs were placed. The patient was placed on a security monitor Anticipate CT of the abdomen to further evaluate her anatomy and source of abdominal pain. We will continue to closely monitor 01/08/20 15:40 EJ was placed for further fluid resuscitation the patient only got approximately 500 to 750 cc of fluid as 1 of her lines have blown. The patient's blood work was reviewed it is noted to be mildly anemic The patient's lactic acid is also elevated 01/08/20 15:59 Patient BP is improving with fluid hydration through her EJ line. 01/08/20 17:27 Pts decreased again, currently 70s/50s pts hbg dropped by 2poitns from prior admission. awiating stool guaiac willplace central line for pressors if bp persistently low pt getting blood products as anemia may be contributing to her hypotnension 01/08/20 18:27 [facility] central line was placed by Dr Hill under my direct instruction pt still awaiting CT. case was signed out to Dr. Marroquin and team to dispo/fu/ manage
[2020-01-08 14:46] LABS: VENOUS PC02 54.9 mmHg (38-52); VENOUS PH 7.33 (7.31-7.41)
[2020-01-08 14:49] LABS: VENOUS PO2 < 49 mmHg (28-48)
--- NOTE | 2020-01-08 14:49 | PDOC ---
History of Present Illness - General Chief Complaint: Blood Pressure Problem Stated Complaint: BP PROBLEM Time Seen by Provider: 01/08/20 14:13 History Source: Patient, Family Exam Limitations: No Limitations - History of Present Illness Initial Comments: 01/08/20 14:41 PCP: Dr. Elle Bauer Surgeon: Dr. Alvarado HPI: 84yo F PMH anemia (prior transfusions required), A. fib (on eliquis), CHF ( EF55-60%), diabetes, hypertension, DJD, obesity, resting tremors, lipidemia, colon cancer s/p hemicolectomy, hernia repair complicated by enerocutaneous fistula with (discharged 11/07/19 after abdominal wall collection drained by IR) , presenting from home with hypotension. VNS noted patient BP to be 70s/60s at home, called daughters and recommended EMS transfer to the ED for evaluation. Daughters are bedside reports baseline weakness since September surgery, with 1 week of reduced appetite and weakness. Patient reports worsening diffuse abdominal pain around the site of her known enterocutaneous fistula and family reports increasing discharge with foul smell from fistula site. Also endorses chills at home with low-grade fever. Denies chest pain, shortness of breath, nausea, cough, headache, dysuria, constipation/diarrhea, BRBPR, or melena. All: NKDA Meds: No interval changes PMH: As above, family endorses CHF (EF 55-60% 10/09) PSH: 2 Months ago, hernia repair with subsequent prolonged hospitalization SHx: Lives along, two daughter with her at bedside, VNS comes to the home Past History - Travel Traveled outside of the country in the last 30 days: No Close contact w/someone who was outside of country & ill: No - Past Medical History Allergies/Adverse Reactions: Allergies Allergy/AdvReac Type Severity Reaction Status Date / Time No Known Allergies Allergy Verified 01/08/20 13:36 Home Medications: Ambulatory Orders Bimatoprost [Lumigan] 1 drop OU DAILY 04/09/17 Brimonidine Tartrate/Timolol [Combigan 0.2%-0.5% Eye Drops] 5 ml OU BID Latanoprost 0.005% Eye Drops [Xalatan 0.005% Eye Drops -] 1 drop HS 02/14/19 Methimazole 5 mg PO BID 02/14/19 Ascorbic Acid [Vitamin C -] 500 mg PO DAILY tablet 03/02/19 Metoprolol Tartrate [Lopressor -] 50 mg PO BID tablet 03/02/19 Acetaminophen [Tylenol .Regular Strength -] 650 mg PO Q6H PRN tablet 03/16/19 Nitroglycerin Sublingual [Nitrostat -] 0.4 mg SL Q5M PRN tab 03/20/19 Albuterol 0.083% Nebulizer Kathrin [Ventolin 0.083% Nebulizer Soln -] 1 amp NEB Q6H PRN amp 03/29/19 Calcium (Oyster Shell) [Os-Dioni 500MG -] 500 mg PO DAILY 10/08/19 Fluticasone Prop 0.05% Nasal [Flonase -] 1 - 2 spray NS DAILY 10/08/19 Acetaminophen [Tylenol .Regular Strength -] 650 mg PO Q6H PRN tablet 10/28/19 Ferrous Sulfate [Feosol] 325 mg PO DAILY ud 10/28/19 Furosemide [Lasix -] 20 mg PO DAILY tablet 10/28/19 Amox-Tr/K Cl [Augmentin 875-125mg Tablet -] 1 tab PO BID@0800,1730 3 Days #6 tablet 11/06/19 Apixaban [Eliquis -] 5 mg PO BID tablet 11/06/19 Linezolid [Zyvox (Restricted To Id) -] 600 mg PO BID 3 Days #6 tablet 11/06/19 Losartan Potassium [Cozaar -] 25 mg PO AM tablet 11/06/19 Anemia: Yes (receives iron infusions) Asthma: Yes Cancer: Yes (cervical, colon) Cardiac Disorders: Yes (A-FIB) CVA: No COPD: No CHF: Yes DVT: No Dementia: No Diabetes: Yes (borderline) GI Disorders: Yes (gerd) Disorders: No HTN: Yes Hypercholesterolemia: Yes Liver Disease: No Seizures: No Thyroid Disease: Yes (hyperthyroid) - Surgical History Abdominal Surgery: Yes (S/P Hemicolectomy (02/20/19)) Appendectomy: No Cardiac Surgery: No Cholecystectomy: No Lung Surgery: No Neurologic Surgery: No - Immunization History Immunization Up to Date: Yes (Unknown) - Psycho Social/Smoking Cessation Hx Smoking History: Never smoked Have you smoked in the past 12 months: No Number of Cigarettes Smoked Daily: 0 Hx Alcohol Use: No Drug/Substance Use Hx: No Substance Use Type: None Hx Substance Use Treatment: No Review of Systems - Review of Systems Able to Perform ROS?: Yes Is the patient limited Telugu proficient: No Constitutional: Yes: Chills, Malaise, Weakness. No: Diaphoresis, Fever HEENTM: No: Nose Congestion, Throat Pain Respiratory: No: Cough, Shortness of Breath, Wheezing, Productive cough, Hemoptysis Cardiac (ROS): No: Chest Pain, Edema, Irregular Heart Rate, Lightheadedness, Palpitations, Syncope, Chest Tightness ABD/GI: Yes: Nausea, Poor Appetite, Poor Fluid Intake. No: Blood Streaked Bowels, Constipated, Diarrhea, Rectal Bleeding, Vomiting, Abdominal cramping : Yes: Flank Pain. No: Burning, Dysuria, Frequency Musculoskeletal: Yes: Back Pain. No: Muscle Pain, Muscle Weakness, Neck Pain Integumentary: No: Bruising, Pruritus, Rash Neurological: No: Headache, Numbness, Tingling, Weakness Psychiatric: No: Stressors, Change in Appetite Endocrine: No: Increased Thirst, Increased Urine, Change in Weight Hematologic/Lymphatic: Yes: Easy Bleeding (on AC). No: Anemia, Blood Clots All Other Systems: Reviewed and Negative *Physical Exam - Vital Signs Last Vital Signs Temp Pulse Resp BP Pulse Ox 98.2 F 109 H 24 H 85/55 L 100 01/08/20 13:36 01/08/20 14:00 01/08/20 14:00 01/08/20 14:00 01/08/20 14:00 - Physical Exam 01/08/20 14:53 Vitals reviewed, low grade temperature, hypotension 70s/60s initially GEN: Elderly, appears stated age, NAD, comfortable. AAOx3. HEENT: NCAT, EOMI, PERRL. Sclera anicteric, non-injected. No facial asymmetry. Moist mucous membranes. Normal voice. Trachea midline. CV: RRR, S1/S2, no murmurs / rubs / gallops appreciated. LUNG: CTAB, normal work of breathing. No wheezes, rales, rhonchi. No cough. Speaking full sentences. GI: Soft, +Draining fistula x2 lower midline abdomen, draining feculent material , no surrounding erythema, swelling, warmth, fluctuance or induration, +diffuse tenderness, worse in lower abdomen, no guarding, no rebound. Questionable CVAT b /l. EXTREMITIES: 2+ distal pulses. No LE edema. No obvious deformities of all extremities. SKIN: Warm, dry, no rashes appreciated, non-jaundiced, mild facial pallor, cool hands. PSYCH: Normal mood and affect. Cooperative and appropriate. NEURO: CN grossly intact. Moving all extremities well. Normal strength and sensation grossly. Procedures - Central Line Central Line Lumen: triple Central Line Position: internal jugular (L) Anesthesia: 1% Lidocaine Amount of anesthesia (ccs): 4 Complications: none Post Central Line Insertion: sutured, good blood return, position confirmed w/ CXR ED Treatment Course - LABORATORY CBC & Chemistry Diagram: 01/12/20 05:45 01/12/20 05:45 Medical Decision Making - Medical Decision Making 01/08/20 14:51 84yo F PMH anemia (prior transfusions required), A. fib (on eliquis), CHF (EF55- 60%), diabetes, hypertension, DJD, obesity, resting tremors, lipidemia, colon cancer s/p hemicolectomy, hernia repair complicated by enerocutaneous fistula with (discharged 11/07/19 after abdominal wall collection drained by IR), presenting from home with hypotension. History notable for chills / low grade fevers, hypotension at home, surgical history with pain near enterocutaneous fistula. Exam notable for hypotension, low grade fever, tachycardic - Afib RVR, non-cellulitic fistula site, tender abdomen, mild facial pallor. DDX: Sepsis, bacteremia, intra-abdominal vs abdominal wall abscess, UTI/Pyelo, GIB, malignancy recurrence, less likely perforation. - 2 IVs placed, 2L NS running, BP fluid responsive with improvement of MAP from 69 to 78 - Sepsis workup - T&S - CTAP with oral and IV contrast EKG: BPM 105, Afib with RVR, normal axis, QTc 518, RBBB seen on prior September EKG, no ST changes 01/08/20 15:53 - R EJ placed for adequate fluid resuscitation - Lact 3.6 initially - Hgb 8.7 - No leukocytosis - Coags elevated c/w anticoagulation - Cr wnl, normal GFR - Patient drinking slowly for CTAP - Negative troponin - Normal blood pH Dispo: Likely admission 01/08/20 17:58 - S/p Left IJ Central Line - Staring Levophed Drip for MAPs persistently 55-64 - Plan for CT after drop started Spoke with Dr. Elle Bauer Admit ICU on her service Discharge - Discharge Information Problems reviewed: Yes Clinical Impression/Diagnosis: Sepsis Qualifiers: Sepsis type: sepsis due to unspecified organism Sepsis acute organ dysfunction status: unspecified Qualified Code(s): A41.9 - Sepsis, unspecified organism Hypotension Qualifiers: Hypotension type: unspecified hypotension type Qualified Code(s): I95.9 - Hypotension, unspecified Condition: Guarded - Follow up/Referral - Patient Discharge Instructions - Post Discharge Activity
[2020-01-08 15:02] LABS: BASO % 0.1 % (0-2.0); EOS % 0.4 % (0-4.5); HEMATOCRIT 26.6 % (32.4-45.2); HEMOGLOBIN 8.7 GM/dL (10.7-15.3); LYMPH % 14.5 % (8-40); MCH 28.7 pg (25.7-33.7); MCHC 32.7 g/dl (32.0-36.0); MEAN PLT VOLUME 7.4 fl (7.5-11.1); MONO % 9.1 % (3.8-10.2); NEUT % 75.9 % (42.8-82.8); PLATELET COUNT 436 K/MM3 (134-434); RBC 3.02 M/mm3 (3.60-5.2); RDW 17.3 % (11.6-15.6); WHITE BLOOD COUNT 8.5 K/mm3 (4.0-10.0)
[2020-01-08 15:11] LABS: INR 2.26 (0.83-1.09); PROTHROMBIN TIME (PATIENT) 26.9 SEC (9.7-13.0)
[2020-01-08 15:13] LABS: ACTIVATED PTT 35.4 SECONDS (25.2-36.5)
[2020-01-08 15:26] LABS: ALBUMIN 1.6 g/dl (3.4-5.0); BILIRUBIN,TOTAL 0.4 mg/dL (0.2-1); BLOOD UREA NITROGEN 13.6 mg/dL (7-18); CALCIUM 7.7 mg/dL (8.5-10.1); CREATININE 0.7 mg/dL (0.55-1.3); POTASSIUM 4.2 mmol/L (3.5-5.1); TOT PROT 4.9 g/dl (6.4-8.2)
--- NOTE | 2020-01-08 16:13 | EKG ---
Test Reason : Blood Pressure : / mmHG Vent. Rate : 105 BPM Atrial Rate : 104 BPM P-R Int : 000 ms QRS Dur : 134 ms QT Int : 392 ms P-R-T Axes : 000 007 -10 degrees QTc Int : 518 ms ATRIAL FIBRILLATION WITH RAPID VENTRICULAR RESPONSE RIGHT BUNDLE BRANCH BLOCK ABNORMAL ECG WHEN COMPARED WITH ECG OF 25-NOV-2019 15:59, NO SIGNIFICANT CHANGE WAS FOUND Confirmed by MD ASHA, MICHAEL ([id number]) on 01/08/2020 4:12:56 PM Referred By: Confirmed By:MICHAEL BARRY MD
[2020-01-08] MEDS ORDERED: ACETAMINOPHEN 1000 MG/100 ML VIAL (NON FORMULARY) IVPB ONE (16:23)
[2020-01-08 16:29] LABS: EPI CELLS 0.2 /HPF (0-5/HPF); HYALINE CASTS 5 /lpf (0-8); PH,URINE 6.5 (5.0-8.0); URINE APPEARANCE CLEAR; URINE BACTERIA 80.2 /hpf (NEGATIVE); URINE BILIRUBIN NEGATIVE (NEGATIVE); URINE COLOR DK YELLOW; URINE GLUCOSE (UA) NEGATIVE (NEGATIVE); URINE KETONE NEGATIVE (NEGATIVE); URINE LEUK ESTERASE 2+ (NEGATIVE); URINE NITRITE NEGATIVE (NEGATIVE); URINE PROTEIN TRACE (NEGATIVE); URINE RBC 2 /hpf (0-4); URINE WBC 67 /hpf (0-5)
[2020-01-08] MEDS ORDERED: ACETAMINOPHEN INJECTION 100 ML IVPB ONE (16:30)
[2020-01-08] MEDS ORDERED: VANCOMYCIN 1,000 MG in DEXTROSE 5%-WATER - 250 ML IVPB ONE (16:56)
[2020-01-08] MEDS ORDERED: PIPERACILLIN/TAZOB 4.5 GM 4.5 GM in DEXTROSE 5%-WATER 100 ML IVPB ONE (16:56)
[2020-01-08] MEDS ORDERED: VANCOMYCIN 1 GRAM (PRE-DOCKED) 1,000 MG/250 ML BAG IVPB ONE (17:49)
[2020-01-08] MEDS ORDERED: NOREPINEPHRINE BITARTRATE 4,000 MCG in DEXTROSE 5%-WATER - 496 ML IV SCH (18:00)
[2020-01-08] MEDS ORDERED: NOREPINEPHRINE BITARTRATE 4 MG/4 ML ML IV ONE (18:02)
[2020-01-08] MEDS: NOREPINEPHRINE BITARTRATE 8,000 MCG in DEXTROSE 5%-WATER - 492 ML IV SCH (18:15)
[2020-01-08] MEDS: SODIUM CHLORIDE 1,000 ML IV SCH (19:01)
--- NOTE | 2020-01-08 19:09 | CONSULT ---
Consultation: REQUESTING PROVIDER: Dr. Delaney CONSULT REQUEST: We have been asked to medically evaluate this patient for (specify). HISTORY OF PRESENT ILLNESS: Patient is an 84 year old female with PMH of anemia (prior transfusions required), A. fib (on eliquis), CHF (EF55-60%), IDDM, HTN, DJD, obesity, resting tremors, lipidemia, colon cancer s/p hemicolectomy, hernia repair in 10/09 complicated by enerocutaneous fistula and prolonged hospitalization (discharged 11/07/19 after abdominal wall collection drained by IR and growing VRE), presenting from home with hypotension. Pt's daughters are at bedside to assist with history. At baseline, pt lives at home with VNS. Needs assistance with ambulation and eating but is typically A&Ox3. She has had generalized weakness since surgery in September 2019 but has been experiencing worsening malaise, diffuse abd pain, and decreased appetite x1 week. Daughters also note increased malodorous drainage from her fistula sites. VNS today noted BP to be 70s/60s at home and called daughters to recommend EMS transfer to ED for further evaluation. On arrival to ED, pt was tachy and hypotensive with inadequate resuscitation with peripheral fluids. R IJ was placed and pt started on levophed. Of note, pt saw Dr. Alvarado last week for follow-up. He evaluated fistulas and did not recommend any further surgical intervention. REVIEW OF SYSTEMS: CONSTITUTIONAL: chills, generalized weakness, malaise, loss of appetite Absent: fever, diaphoresis, weight change HEENT: Absent: rhinorrhea, nasal congestion, throat pain, throat swelling, difficulty swallowing, mouth swelling, ear pain, eye pain, visual changes CARDIOVASCULAR: Absent: chest pain, syncope, palpitations, irregular heart rate, lightheadedness, peripheral edema RESPIRATORY: Absent: cough, shortness of breath, dyspnea with exertion, orthopnea, wheezing, stridor, hemoptysis GASTROINTESTINAL: abdominal pain Absent: abdominal distension, nausea, vomiting, diarrhea, constipation, melena, hematochezia GENITOURINARY: Absent: dysuria, frequency, urgency, hesitancy, hematuria, flank pain, genital pain MUSCULOSKELETAL: Absent: myalgia, arthralgia, joint swelling, back pain, neck pain SKIN: draining fistula Absent: rash, itching, pallor HEMATOLOGIC/IMMUNOLOGIC: Absent: easy bleeding, easy bruising, lymphadenopathy, frequent infections ENDOCRINE: Absent: unexplained weight gain, unexplained weight loss, heat intolerance, cold intolerance NEUROLOGIC: Absent: headache, focal weakness or paresthesias, dizziness, unsteady gait, seizure, mental status changes, bladder or bowel incontinence PSYCHIATRIC: Absent: anxiety, depression, suicidal or homicidal ideation, hallucinations. PHYSICAL EXAMINATION Vital Signs - 24 hr 01/08/20 01/08/20 01/08/20 13:36 13:47 14:00 Temperature 98.2 F 99.0 F Pulse Rate 58 L Pulse Rate [ 84 109 H Radial] Respiratory 20 24 H 24 H Rate Blood Pressure 0/0 L Blood Pressure 84/70 L 85/55 L [Right Arm] O2 Sat by Pulse 98 100 100 Oximetry (%) 01/08/20 01/08/20 01/08/20 14:20 14:30 15:00 Temperature Pulse Rate Pulse Rate [ 102 H 105 H Radial] Respiratory 22 H 22 H Rate Blood Pressure Blood Pressure 82/59 L 93/69 [Right Arm] O2 Sat by Pulse 100 100 100 Oximetry (%) 01/08/20 01/08/20 01/08/20 15:15 15:30 15:50 Temperature Pulse Rate Pulse Rate [ 102 H 101 H 104 H Radial] Respiratory 22 H 20 22 H Rate Blood Pressure Blood Pressure 92/54 L 70/41 L 85/67 L [Right Arm] O2 Sat by Pulse 98 97 97 Oximetry (%) 01/08/20 01/08/20 01/08/20 18:15 18:20 18:40 Temperature Pulse Rate 109 H 103 H 99 H Pulse Rate [ Radial] Respiratory Rate Blood Pressure 70/54 L 74/61 L 81/62 L Blood Pressure [Right Arm] O2 Sat by Pulse Oximetry (%) GENERAL: Drowsy, but arousable, oriented to person and place, in no acute distre ss. HEAD: Normal with no signs of trauma. EYES: Pupils equal, round and reactive to light, extraocular movements intact, sclera anicteric, conjunctiva clear. No lid lag. EARS, NOSE, THROAT: Ears normal, nares patent, oropharynx clear without exudates. Moist mucous membranes. NECK: Normal range of motion, supple without lymphadenopathy, JVD, or masses. RIJ in place with no erythema. LUNGS: Breath sounds equal, clear to auscultation bilaterally. No wheezes, and no crackles. No accessory muscle use. HEART: Irregular rate and rhythm, normal S1 and S2 without murmur, rub or gallop. ABDOMEN: Soft, diffusely tender, normoactive bowel sounds, no guarding. Two 1cm periumbilical fistulas draining malodorous feces. MUSCULOSKELETAL: Normal range of motion at all joints. No bony deformities or tenderness. No CVA tenderness. UPPER EXTREMITIES: 2+ pulses, warm, well-perfused. No cyanosis. No clubbing. Cap refill <2 seconds. No peripheral edema. LOWER EXTREMITIES: 2+ pulses, warm, well-perfused. No calf tenderness. Trace edema. NEUROLOGICAL: Cranial nerves II-XII intact. Chronic resting tremors. SKIN: Warm, dry, normal turgor, no rashes or lesions noted. Laboratory Results - last 24 hr CBC, BMP 01/08/20 14:00 01/08/20 14:00 Active Medications Chlorhexidine Gluconate (Hibiclens For Decolonization -) 1 applic TP HS SRIKANTH Heparin Sodium (Porcine) (Heparin -) 5,000 unit SQ BID SRIKANTH Norepinephrine Bitartrate 8, (000 mcg/ Dextrose) 500 mls @ 18.75 mls/hr IV TITR SRIKANTH; Protocol Last Titration: 01/08/20 18:40 Dose: 10 mcg/min, 37.5 mls/hr Sodium Chloride (Normal Saline -) 1,000 mls @ 100 mls/hr IV ASDIR SRIKANTH Last Admin: 01/08/20 19:01 Dose: 100 mls/hr Imipenem/Cilastatin Sodium 500 (mg/ Sodium Chloride) 100 mls @ 100 mls/hr IVPB Q6H-IV SRIKANTH; Protocol Mupirocin (Bactroban Ointment (For Decolonization) -) 1 applic NS BID SRIKANTH Stop: 01/13/20 21:59 ASSESSMENT/PLAN: Patient is an 84 year old female with PMH of anemia (prior transfusions required), A. fib (on eliquis), CHF (EF55-60%), IDDM, HTN, DJD, hyperthyroidism, obesity, resting tremors, lipidemia, colon cancer s/p hemicolectomy, hernia repair in 10/09 complicated by enerocutaneous fistula and prolonged hospitalization (discharged 11/07/19 after abdominal wall collection drained by IR and growing VRE), presenting from home with hypotension. Admitted to the ICU for sepsis. Neuro -Arousable and oriented x2 -Hx of chronic resting tremors Cardiovascular -RIJ placed 01/08/20 -Start levophed to maintain MAP >65 -Closely monitor hemodynamics -EKG: Afib w/RVR @ 105 -Initial trop neg, will trend -Hx of Afib (on eliquis), CHF, HTN -Cont home eliquis 5mg BID in am -Hold anti-hypertensives in setting of sepsis and possible acute bleed -Cardio consulted (Dr. Samuel) Pulmonary -CXR: no infiltrates -Pt mildly tachypneic -F/u ABG GI -Hx of colon CA s/p hemicolectomy, hernia repair complicated by enterocutaneous fistulas and abd wall abscess (w/VRE) -Fistulas draining malodorous feces, likely source of infection -Start IV abx -Surgery consulted (Dr. Alvarado) -Per family, pt recently treated with abx few weeks ago. Will send for C. Diff -CTAP: interval enlargement of several fluid collections consistent w/abscesses abutting ant aspect of abd wall musculature. Diffuse gastric wall thickening suggestive of edema and acute gastritis. -Start GI ppx with IV protonix 40mg BID -Consult IR (Dr. Collins) for possible drainage of abscesses. -Elevated alk phos. No evidence of acute cholecystitis. 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 Will start ertapenem 1gm daily -ID consulted (Dr. Low) -F/u blood, urine, and wound cx Renal -UTI possible source of sepsis -UA: 2+ LE, 67 WBC -Cont IV abx -Monitor on I's & O's -Monitor BMP Heme -Hx of normocytic anemia -Hgb: 8.7 on arrival, ED transfused 1unit PRBC -Cont to monitor CBC -F/u stool guaic Endo -Hx of hyperthyroidism and DM -ISS and BGM TIDAC -Cont home methimazole 10mg BID DVT ppx -SCDs FEN -IV NS @ 100ml/hr -Monitor lytes and replete prn -NPO Dispo: We will continue to follow the patient. Thank you for this consultative opportunity. Visit type - Emergency Visit Emergency Visit: Yes ED Registration Date: 01/08/20 Care time: The patient presented to the Emergency Department on the above date and was hospitalized for further evaluation of their emergent condition. - New Patient This patient is new to me today: Yes Date on this admission: 01/10/20 - Critical Care Critical Care patient: Yes Total Critical Care Time (in minutes): 45 Critical Care Statement: The care of this patient involved high complexity decision making to prevent further life threatening deterioration of the patient's condition and/or to evaluate & treat vital organ system(s) failure or risk of failure. ATTENDING PHYSICIAN STATEMENT I saw and evaluated the patient. I reviewed the resident's note and discussed the case with the resident. I agree with the resident's findings and plan as documented. SUBJECTIVE: OBJECTIVE: ASSESSMENT AND PLAN:
[2020-01-08] MEDS ORDERED: ACETAMINOPHEN 325 MG TABLET (FP) PO PRN (19:28)
[2020-01-08] MEDS ORDERED: ALBUTEROL SO4 0.083% IH SOL 2.5 MG/3 ML VIAL.NEB. NEB PRN (19:28)
--- NOTE | 2020-01-08 19:28 | HP ---
Admitting History and Physical - Primary Care Physician PCP: Elle Bauer S - Admission Chief Complaint: hypotension History of Present Illness: 84-year-old female history of anemia, A. fib, diabetes, hypertension, lipidemia , colon cancer status post resection and hernia repair complicated by abdominal wall abscess and skin fistula presents from home with hypotension. Per family the patient has been generally weak since her surgery September, however the past week she has had decrease in her appetite and increasing her generalized weakness. Family also notes increased discharge from her enterocutaneous fistula and increasing complaint of pain in the abdomen. Family notes her visiting nurse checked her blood pressure noted her blood pressure was hypotensive so recommended the patient come to the ER for evaluation. The patient complains of mild diffuse abdominal pain however denies any chest pain, shortness of breath, cough, headache, dysuria, diarrhea, BPR, melena. Pt was DCd from in Oct to [facility] where she was for 1 month; d/w daughter Yogi at bedside, also with 1 daughter and 1 son present; Yogi said pt sw surgery dr Alvarado in Oct, then most recently last week in his office; Yogi not sure how long the pt had the abdominal skin fistula but said it was present last week and had conservative treatment per surgery Pt had mary with me in private office yesterday but Yogi cancelled it and rescheduled it (she said pt was "OK" but she did not want to come down the stairs in her building). History Source: Patient, Family Member, Medical Record - Past Medical History HR ADVISOR: Yes: Parkinson's Cardiovascular: Yes: AFIB, HTN Pulmonary: Yes: Asthma Gastrointestinal: Yes: Cancer (colon) Heme/Onc: Yes: Cancer (? cervical CA or ovarian CA S/P hyterectomy) Endocrine: Yes: Hyperthyroidism - Past Surgical History Past Surgical History: Yes: Colectomy, Hysterectomy - Smoking History Smoking history: Never smoked Have you smoked in the past 12 months: No Aproximately how many cigarettes per day: 0 - Alcohol/Substance Use Hx Alcohol Use: No History of Substance Use: reports: None - Social History Usual Living Arrangement: Yes: With Child Do you think of yourself as: Straight/Heterosexual ADL: Family Assistance History of Recent Travel: No Home Medications - Allergies Allergies/Adverse Reactions: Allergies Allergy/AdvReac Type Severity Reaction Status Date / Time No Known Allergies Allergy Verified 01/08/20 13:36 - Home Medications Home Medications: Ambulatory Orders Bimatoprost [Lumigan] 1 drop OU DAILY 04/09/17 Brimonidine Tartrate/Timolol [Combigan 0.2%-0.5% Eye Drops] 5 ml OU BID Latanoprost 0.005% Eye Drops [Xalatan 0.005% Eye Drops -] 1 drop HS 02/14/19 Methimazole 5 mg PO BID 02/14/19 Ascorbic Acid [Vitamin C -] 500 mg PO DAILY tablet 03/02/19 Metoprolol Tartrate [Lopressor -] 50 mg PO BID tablet 03/02/19 Acetaminophen [Tylenol .Regular Strength -] 650 mg PO Q6H PRN tablet 03/16/19 Nitroglycerin Sublingual [Nitrostat -] 0.4 mg SL Q5M PRN tab 03/20/19 Albuterol 0.083% Nebulizer Kathrin [Ventolin 0.083% Nebulizer Soln -] 1 amp NEB Q6H PRN amp 03/29/19 Calcium (Oyster Shell) [Os-Dioni 500MG -] 500 mg PO DAILY 10/08/19 Fluticasone Prop 0.05% Nasal [Flonase -] 1 - 2 spray NS DAILY 10/08/19 Acetaminophen [Tylenol .Regular Strength -] 650 mg PO Q6H PRN tablet 10/28/19 Ferrous Sulfate [Feosol] 325 mg PO DAILY ud 10/28/19 Furosemide [Lasix -] 20 mg PO DAILY tablet 10/28/19 Amox-Tr/K Cl [Augmentin 875-125mg Tablet -] 1 tab PO BID@0800,1730 3 Days #6 tablet 11/06/19 Apixaban [Eliquis -] 5 mg PO BID tablet 11/06/19 Linezolid [Zyvox (Restricted To Id) -] 600 mg PO BID 3 Days #6 tablet 11/06/19 Losartan Potassium [Cozaar -] 25 mg PO AM tablet 11/06/19 Family Medical History Family History: Unremarkable Review of Systems - Review of Systems Constitutional: reports: Loss of Appetite, Weakness (general). denies: Chills, Diaphoresis, Fever, Lethargy Eyes: denies: Blind Spots, Blurred Vision, Double Vision HENT: denies: Difficult Swallowing, Ear Pain, Epistaxis Neck: denies: Decreased ROM, Pain on Movement, Stiffness Cardiovascular: denies: Chest Pain, Palpitations, Shortness of Breath Respiratory: denies: Cough, SOB, SOB on Exertion, Wheezing Gastrointestinal: reports: Abdominal Pain (lower). denies: Constipation, Diarrhea, Vomiting Genitourinary: denies: Burning, Discharge, Dysuria, Flank Pain Musculoskeletal: denies: Back Pain Neurological: reports: Tremors (head), Weakness (general). denies: Change in LOC, Confusion, Dizziness Hematology/Lymphatic: denies: Easily Bruised, Excessive Bleeding Psychiatric: denies: Altered Sleep Pattern, Anxiety, Depression, Suicidal Physical Examination Vital Signs: Vital Signs Temperature 99.0 F 01/08/20 14:00 Pulse Rate 80 01/08/20 18:50 Respiratory Rate 22 H 01/08/20 18:50 Blood Pressure 105/69 01/08/20 18:50 O2 Sat by Pulse Oximetry (%) 99 01/08/20 18:50 Constitutional: Yes: No Distress, Calm Eyes: Yes: Conjunctiva Clear HENT: Yes: Atraumatic Neck: Yes: Supple Cardiovascular: No: Regular Rate and Rhythm Respiratory: Yes: Diminished Gastrointestinal: Yes: Soft, Other (below omb open tract yellow drainage). No: Tenderness Renal/: No: Hematuria Musculoskeletal: No: Joint Stiffness, Joint Swelling Extremities: No: Cold, Cool, Cyanosis Edema: No Integumentary: No: Venous Stasis Changes Neurological: Yes: Alert, Oriented, Tremors (benign head tremors) ...Motor Strength: WNL Psychiatric: Yes: Alert, Oriented. No: Agitated Labs: CBC, BMP 01/08/20 14:00 01/08/20 14:00 Imaging - Results Chest X-ray: Report Reviewed Other: Report Reviewed Assessment/Plan 84-year-old female history of anemia, A. fib, diabetes, hypertension, lipidemia , colon cancer status post resection and hernia repair complicated by abdominalskin wall abscess and fistula presents with hypotension. r/o sepsis; anemia; on eliquis, no obvious bleeding IVF; hold all BP meds; ICU admit; IV pressors broad spectrum IV ATB prognosis guarded d/w pt and family at bedside 2 daughters and 1 son ID, surgery, cardiology eval transfused in ER; cultures sent falls DVT aspiration decubs PFX d/w pt and staff t time 75 min
[2020-01-08] MEDS ORDERED: DEXTROSE 5%-WATER 100 ML IVPB ONE (20:26)
[2020-01-08] MEDS ORDERED: PIPERACILLIN/TAZOBACTAM 4.5 GM VIAL IVPB ONE (20:26)
[2020-01-08] MEDS ORDERED: IMIPENEM/CILASTATIN SODIUM 500 MG in SODIUM CHLORIDE 100 ML IVPB SCH (21:00)
[2020-01-08 21:06] LABS: ARTERIAL BLD GAS O2 SATURATION 98.2 % (95-98); ARTERIAL BLOOD GAS BASE EXCESS -0.6 meq/l (-2-2); ARTERIAL BLOOD GAS PCO2 35.4 mmHg (35-45); ARTERIAL BLOOD GAS PO2 125 mmHg (80-100); ARTERIAL BLOOD GAS pH 7.42 (7.35-7.45)
[2020-01-08 21:08] LABS: ALLENS TEST POSITIVE
[2020-01-08] MEDS ORDERED: DORZOLAMIDE 2% HCL OPHTHALMIC SOLUTION 10 ML BOTTLE OU SCH (22:00)
[2020-01-08] MEDS ORDERED: METHIMAZOLE 5 MG TABLET (FP) PO SCH (22:00)
[2020-01-08] MEDS ORDERED: APIXABAN 5 MG TABLET PO SCH (22:00)
[2020-01-08] MEDS ORDERED: HEPARIN NA (PORCINE) 5,000 UNITS/ML 1ML VIAL SQ SCH (22:00)
[2020-01-08] MEDS ORDERED: PATIENT'S OWN MEDICATION (NON-FORMULARY) (Brimonidine Tartrate/Timolol [Combigan 0.2%-0.5% OU SCH (22:00)
[2020-01-08] MEDS: TIMOLOL 0.5% OPHTHALMIC SOL 5 ML BOTTLE OU SCH (22:39)
[2020-01-08] MEDS: MUPIROCIN 2% TOPICAL OINTMENT FOR DECOLONIZATION NS SCH (22:40)
[2020-01-08] MEDS: BRIMONIDINE TARTRATE 0.2% OPHTHALMIC 5 ML BOTTLE OU SCH (22:40)
[2020-01-08] MEDS: CHLORHEXIDINE GLUCONATE 4% CLEANSER FOR DECOLONIZATION TP SCH (22:40)
[2020-01-08] MEDS: METHIMAZOLE 10 MG TABLET (FP) PO SCH (22:41)
[2020-01-08] MEDS: INSULIN SLIDING SCALE (NOVOLOG) 1 VIAL SQ SCH (22:41)
[2020-01-08] MEDS: PANTOPRAZOLE SODIUM 40 MG VIAL IVPUSH SCH (22:43)
[2020-01-09 00:50] LABS: HEMATOCRIT 28.2 % (32.4-45.2); HEMOGLOBIN 9.2 GM/dL (10.7-15.3); MCH 29.2 pg (25.7-33.7); MCHC 32.5 g/dl (32.0-36.0); MEAN CELL VOLUME 89.9 fl (80-96); MEAN PLT VOLUME 7.1 fl (7.5-11.1); PLATELET COUNT 363 K/MM3 (134-434); RBC 3.13 M/mm3 (3.60-5.2); RDW 16.7 % (11.6-15.6); WHITE BLOOD COUNT 11.4 K/mm3 (4.0-10.0)
[2020-01-09] MEDS: INSULIN SLIDING SCALE (NOVOLOG) 1 VIAL SQ SCH ×4 (06:09→21:32)
[2020-01-09 06:30] LABS: BASO % 0.2 % (0-2.0); EOS % 4.3 % (0-4.5); HEMATOCRIT 28.5 % (32.4-45.2); HEMOGLOBIN 9.6 GM/dL (10.7-15.3); LYMPH % 12.1 % (8-40); MCH 30.2 pg (25.7-33.7); MCHC 33.8 g/dl (32.0-36.0); MEAN CELL VOLUME 89.5 fl (80-96); MEAN PLT VOLUME 7.5 fl (7.5-11.1); MONO % 10.2 % (3.8-10.2); NEUT % 73.2 % (42.8-82.8); PLATELET COUNT 382 K/MM3 (134-434); RBC 3.18 M/mm3 (3.60-5.2); RDW 16.5 % (11.6-15.6); WHITE BLOOD COUNT 9.5 K/mm3 (4.0-10.0)
[2020-01-09 06:59] LABS: ALBUMIN 1.4 g/dl (3.4-5.0); BILIRUBIN,TOTAL 0.7 mg/dL (0.2-1); BLOOD UREA NITROGEN 10.4 mg/dL (7-18); CALCIUM 7.1 mg/dL (8.5-10.1); CREATININE 0.5 mg/dL (0.55-1.3); MAGNESIUM 1.5 mg/dL (1.8-2.4); POTASSIUM 3.3 mmol/L (3.5-5.1); TOT PROT 4.2 g/dl (6.4-8.2)
[2020-01-09] MEDS ORDERED: PT OWN MED DRAWER 7, Y5N ONE ×3 (07:27→10:30)
[2020-01-09] MEDS: SODIUM CHLORIDE 1,000 ML IV SCH ×2 (07:29→21:30)
[2020-01-09] MEDS: KCL 10 MEQ IVPB 10 MEQ/100 ML INFUS.BAG IVPB SCH ×3 (07:30→09:01)
[2020-01-09] MEDS ORDERED: MAGNESIUM SULF 50% (8.12 MEQ/2 ML-1 GM VIAL) IVPB ONE (07:48)
[2020-01-09] MEDS: MUPIROCIN 2% TOPICAL OINTMENT FOR DECOLONIZATION NS SCH ×2 (09:01→21:31)
[2020-01-09] MEDS: PANTOPRAZOLE SODIUM 40 MG VIAL IVPUSH SCH ×2 (09:02→21:32)
[2020-01-09] MEDS: METHIMAZOLE 10 MG TABLET (FP) PO SCH ×2 (09:02→21:32)
[2020-01-09] MEDS: BRIMONIDINE TARTRATE 0.2% OPHTHALMIC 5 ML BOTTLE OU SCH ×2 (09:02→21:32)
[2020-01-09] MEDS: TIMOLOL 0.5% OPHTHALMIC SOL 5 ML BOTTLE OU SCH ×2 (09:03→21:32)
[2020-01-09] MEDS: ERTAPENEM SODIUM 1 GM in SODIUM CHLORIDE 50 ML IVPB SCH (09:43)
--- NOTE | 2020-01-09 09:57 | PN ---
Progress Note (short form) - Note Progress Note: ID consult dictated imp/reccd 84 yo female admitted from home- [facility] of Left colectomy 03/09, then she had an incisional hernia repair with small bowel resecition in 10/09 followed by respiratory failure, daughter reports she was intubated twice she developed an abscess that was drained on 10/30 abscess cultures grew vre, ecoli, strep viridans, lactobacillus, myesha albicans she was discharged to snf- at the snf she developed an opening and drainage from the wound after discharge back home early December her daughter took her to see Dr Alvarado who tole them she had a fistula over the last 3 days she has had increased drainage and some increased abdominal discomfort she was noted to be hypotensive by VNS and sent to ED she required central line placement and was started on levophed ct scan with multiple subcutaneous collections sepsis secondary to multiple subcutaneous abscesses enterocutaneous fistula s/p mesh repair of hernia with small bowel resection s/p left colectomy colon cancer vre culture positive antibiotics based on prior cultures zyvox,ertapenem, diflucan contact isolation d/w ICU housestaff awaiting surgical evaluation for drainage plan- ?IR d/w daughter at bedside Problem List - Problems (1) Sepsis Code(s): A41.9 - SEPSIS, UNSPECIFIED ORGANISM Qualifiers: Sepsis type: sepsis due to unspecified organism Qualified Code(s): A41.9 - Sepsis, unspecified organism (2) Abscess Code(s): L02.91 - CUTANEOUS ABSCESS, UNSPECIFIED (3) S/P repair of ventral hernia Code(s): Z98.890 - OTHER SPECIFIED POSTPROCEDURAL STATES; Z87.19 - PERSONAL HISTORY OF OTHER DISEASES OF THE DIGESTIVE SYSTEM (4) S/P left hemicolectomy Code(s): Z90.49 - ACQUIRED ABSENCE OF OTHER SPECIFIED PARTS OF DIGESTIVE TRACT (5) Colon cancer Code(s): C18.9 - MALIGNANT NEOPLASM OF COLON, UNSPECIFIED (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
[2020-01-09] MEDS: LINEZOLID 600 MG PREMIX BAG 600 MG/300 ML BAG IVPB SCH ×2 (10:33→21:33)
[2020-01-09] MEDS: FLUCONAZOLE 200 MG/NS 100 ML IVPB SCH (10:33)
--- NOTE | 2020-01-09 10:50 | CONS ---
DATE OF CONSULTATION: DATE OF DICTATION: 01/09/2020 INFECTIOUS DISEASE CONSULTATION REQUESTING PHYSICIAN: Elle Bauer M.D. The patient was seen and examined in the ICU. Much of the history is from the patient's daughter (who is at the bedside) as well as from the chart. HISTORY OF PRESENT ILLNESS: This is an 84-year-old woman who lives alone at home in an apartment. She is primarily Faroese speaking. She has a history of colon cancer and is status post left hemicolectomy in February 2019. At the time she had the original surgery, the colectomy was complicated by abdominal wound infection. She was subsequently readmitted in September, at which time she underwent an incisional hernia repair with a small bowel resection. She was in the hospital for 1 month. The daughter reports the hospital course was complicate by respiratory failure. She was intubated twice. It was complicated by an abscess. She underwent percutaneous drainage on October 30, and she was ultimately discharged to rehab on November 07, on Augmentin and Zyvox. She apparently completed her rehab. While she was in rehab, she was noted to have drainage from the incision. After she was discharged home in early December, she went to see her surgeon, Dr. Alvarado, who informed the family that she had an enterocutaneous fistula that he was hoping would heal nonoperatively. Three to 4 days ago, she started having increasing drainage from that site as well as increasing pain in her abdomen. The VNS came to her house and took her blood pressure, noted it to be low and sent her to the ER. In the ER, she was found to be hypotensive, requiring pressors. She had a central line placed and was started on Levophed. She had a CAT scan of her abdomen and pelvis done that showed multiple subcutaneous collections. She was admitted to the ICU. I am asked to see her for antibiotic recommendation. She is currently awake and alert. She complains that she is hungry. PAST MEDICAL HISTORY: Notable for hypertension, hyperlipidemia, atrial fibrillation, congestive heart failure, hyperthyroidism, Parkinson disease and this history of colon cancer. As well, during the last admission (per her daughter) she required intubation twice. PAST SURGICAL HISTORY: Notable for hemicolectomy in February 2019, followed by incisional hernia repair with small bowel resection in September 2019. ALLERGIES: She has no known drug allergies. SOCIAL HISTORY: She lives in the community by herself in an apartment. She has a home health aide for about 6 to 7 hours a day. She ambulates with a walker. She is a nonsmoker and nondrinker. MEDICATIONS: The daughter reports she has not recently been on antibiotics. Her medications as an outpatient include Tylenol, Lopressor, methimazole, Cozaar, Lasix, ferrous sulfate, vitamin C, Eliquis. This medication list has not been confirmed. REVIEW OF SYSTEMS: There is no difficulty with her breathing. She has no chest pain. She does note abdominal pain and increased odor and drainage. There have been no fevers or chills. PHYSICAL EXAMINATION: Vital Signs: Her temperature is 97.7, pulse 86, blood pressure 105/73, respiratory rate 16. She is saturating 95% on room air. HEENT: She is normocephalic. Her eyes are anicteric. Neck: Supple. Lungs: Clear to auscultation. Heart: Irregularly irregular. Abdomen: Soft. She has mild midepigastric tenderness. She has an opening that has a copious amount of foul-smelling feculent material. The rest of her abdomen is soft, and there is no distention. Extremities: Without edema. DIAGNOSTIC STUDIES: Her white count on admission was 11.4 and today is 9.5; hemoglobin 9.6; platelets are 382. Chemistry: BUN 10, creatinine 0.5. Her lactic acid on admission was 3.6 and after hydration is 1.2. LFTs are notable for an alkaline phosphatase of 132. Albumin is 1.4. Blood cultures have been sent. Her prior culture of the abscess in October grew Janet albicans, E. coli, VRE, Streptococcus viridans and Lactobacillus. Imaging findings are as previously stated. Chest x-ray shows no evidence of effusion of increase. SUMMARY: This is an 84-year-old woman admitted with sepsis secondary to multiple subcutaneous abscesses in the setting of enterocutaneous fistula, recent mesh repair of hernia with small bowel resection, history of recent left hemicolectomy for colon cancer with vancomycin-resistant enterococci culture positivity. I would give her antibiotics. Based on her prior culture, she has been started on ertapenem. I would add Diflucan and Zyvox. Maintain contact isolation. The case was discussed with the ICU house staff. We are awaiting surgical evaluation for drainage plan. I spoke at length with the daughter at bedside. AISHA DELGADILLO M.D. [id number]
--- NOTE | 2020-01-09 11:31 | PN ---
Teaching Attending Note Name of Resident: Tomasz Kelley ATTENDING PHYSICIAN STATEMENT I saw and evaluated the patient. I reviewed the resident's note and discussed the case with the resident. I agree with the resident's findings and plan as documented. SUBJECTIVE: Pt seen and examined in the ICU. Hungry, denies abdominal pain but with feculent drainage. On levophed gtt. OBJECTIVE: Vital Signs Period Temp Pulse Resp BP Sys/Ugarte Pulse Ox Last 24 Hr 97.7 F-99.0 F 58-120 14-26 0-149/0-81 95-100 Intake & Output 01/06/20 01/07/20 01/08/20 01/09/20 23:59 23:59 23:59 23:59 Intake Total 3282 224.5 Output Total 350 Balance 2932 224.5 Weight 68.175 kg 68.039 kg Gen: NAD at rest Heart: RRR Lung: decreased breath sounds at the bases Abd: soft, feculent drainage from fistula Ext: no edema CBC, BMP 01/09/20 05:20 01/09/20 05:20 Active Medications Acetaminophen (Tylenol -) 650 mg PO Q6H PRN PRN Reason: PAIN LEVEL 1-5 Albuterol Sulfate (Ventolin 0.083% Nebulizer Soln -) 1 amp NEB Q6H PRN PRN Reason: SHORT OF BREATH/WHEEZING Brimonidine Tartrate (Alphagan 0.2% -) 1 drop OU BID [facility] Last Admin: 01/09/20 09:02 Dose: 1 drop Chlorhexidine Gluconate (Hibiclens For Decolonization -) 1 applic TP HS [facility] Last Admin: 01/08/20 22:40 Dose: 1 applic Norepinephrine Bitartrate 8, (000 mcg/ Dextrose) 500 mls @ 18.75 mls/hr IV TITR [facility]; Protocol Last Titration: 01/09/20 05:40 Dose: 5 mcg/min, 18.75 mls/hr Sodium Chloride (Normal Saline -) 1,000 mls @ 100 mls/hr IV ASDIR [facility] Last Admin: 01/09/20 07:29 Dose: 100 mls/hr Ertapenem 1 gm/ Sodium (Chloride) 50 mls @ 100 mls/hr IVPB DAILY [facility] Last Admin: 01/09/20 09:43 Dose: 100 mls/hr Linezolid (Zyvox 600 Mg Premix Bag (Restricted To Id) -) 600 mg in 300 mls @ 300 mls/hr IVPB BID [facility]; Protocol Last Admin: 01/09/20 10:33 Dose: 300 mls/hr Fluconazole (Diflucan 200 Mg/Ns Premixed Ivpb -) 100 mls @ 100 mls/hr IVPB DAILY [facility] Last Admin: 01/09/20 10:33 Dose: 100 mls/hr Insulin Aspart (Novolog Vial Sliding Scale -) 1 vial SQ ACHS [facility]; Protocol Last Admin: 01/09/20 06:09 Dose: Not Given Latanoprost (Xalatan 0.005% Eye Drops -) 1 drop OU HS [facility] Methimazole (Tapazole -) 10 mg PO BID [facility] Last Admin: 01/09/20 09:02 Dose: 10 mg Mupirocin (Bactroban Ointment (For Decolonization) -) 1 applic NS BID [facility] Stop: 01/13/20 21:59 Last Admin: 01/09/20 09:01 Dose: 1 applic Pantoprazole Sodium (Protonix Iv) 40 mg IVPUSH BID [facility] Last Admin: 01/09/20 09:02 Dose: 40 mg Timolol Maleate (Timoptic 0.5%) 1 drop OU BID [facility] Last Admin: 01/09/20 09:03 Dose: 1 drop ASSESSMENT AND PLAN: Subcutaneous Abscess Enterocutaneous Fisulta h/o Colon Ca s/p Hemicolectomy/Hernia Repair 10/09 r/o UTI Septic Shock Lactic Acidosis Atrial Fibrillation LV Diastolic Dysfunction HTN DM Hyperthyroidism Anemia - antibiotics per ID - f/u cultures - surgery, IR eval - IVF - monitor urine output, creatinine - NPO - rate control - hold anticoagulation for pending drainage - DVT prophylaxis - continue ICU monitoring for hemodynamic instability critical care time spent in reviewing chart, evaluating patient and formulating plan 35 min
--- NOTE | 2020-01-09 12:41 | PN ---
Progress Note, Physician History of Present Illness: Pt w/o fever, chills, SOB, CP, palpitations. Pt with abd discomfort on and off; pt wants to eat. Pt's dg is at bedside. - Current Medication List Current Medications: Active Medications Acetaminophen (Tylenol -) 650 mg PO Q6H PRN PRN Reason: PAIN LEVEL 1-5 Albuterol Sulfate (Ventolin 0.083% Nebulizer Soln -) 1 amp NEB Q6H PRN PRN Reason: SHORT OF BREATH/WHEEZING Brimonidine Tartrate (Alphagan 0.2% -) 1 drop OU BID [facility] Last Admin: 01/09/20 09:02 Dose: 1 drop Chlorhexidine Gluconate (Hibiclens For Decolonization -) 1 applic TP HS [facility] Last Admin: 01/08/20 22:40 Dose: 1 applic Norepinephrine Bitartrate 8, (000 mcg/ Dextrose) 500 mls @ 18.75 mls/hr IV TITR [facility]; Protocol Last Titration: 01/09/20 05:40 Dose: 5 mcg/min, 18.75 mls/hr Sodium Chloride (Normal Saline -) 1,000 mls @ 100 mls/hr IV ASDIR [facility] Last Admin: 01/09/20 07:29 Dose: 100 mls/hr Ertapenem 1 gm/ Sodium (Chloride) 50 mls @ 100 mls/hr IVPB DAILY [facility] Last Admin: 01/09/20 09:43 Dose: 100 mls/hr Linezolid (Zyvox 600 Mg Premix Bag (Restricted To Id) -) 600 mg in 300 mls @ 300 mls/hr IVPB BID [facility]; Protocol Last Admin: 01/09/20 10:33 Dose: 300 mls/hr Fluconazole (Diflucan 200 Mg/Ns Premixed Ivpb -) 100 mls @ 100 mls/hr IVPB DAILY [facility] Last Admin: 01/09/20 10:33 Dose: 100 mls/hr Insulin Aspart (Novolog Vial Sliding Scale -) 1 vial SQ ACHS [facility]; Protocol Last Admin: 01/09/20 06:09 Dose: Not Given Latanoprost (Xalatan 0.005% Eye Drops -) 1 drop OU HS [facility] Methimazole (Tapazole -) 10 mg PO BID [facility] Last Admin: 01/09/20 09:02 Dose: 10 mg Mupirocin (Bactroban Ointment (For Decolonization) -) 1 applic NS BID [facility] Stop: 01/13/20 21:59 Last Admin: 01/09/20 09:01 Dose: 1 applic Pantoprazole Sodium (Protonix Iv) 40 mg IVPUSH BID [facility] Last Admin: 01/09/20 09:02 Dose: 40 mg Timolol Maleate (Timoptic 0.5%) 1 drop OU BID [facility] Last Admin: 01/09/20 09:03 Dose: 1 drop - Objective Vital Signs: Vital Signs Temperature 97.7 F 01/09/20 07:30 Pulse Rate 82 01/09/20 10:00 Respiratory Rate 18 01/09/20 10:00 Blood Pressure 117/70 01/09/20 10:00 O2 Sat by Pulse Oximetry (%) 95 01/09/20 07:56 Constitutional: Yes: No Distress, Calm Cardiovascular: Yes: Regular Rate and Rhythm, S1, S2 Respiratory: Yes: Regular, CTA Bilaterally. No: Rales Gastrointestinal: Yes: Normal Bowel Sounds, Soft, Tenderness (in lower quadrans , more on medial line; brownish discharge), Other (no guarding, no rebound.) Neurological: Yes: Alert, Oriented Labs: CBC, BMP 01/09/20 05:20 01/09/20 05:20 INR, PTT INR 2.26 (0.83-1.09) H 01/08/20 14:00 Problem List - Problems (1) Sepsis Code(s): A41.9 - SEPSIS, UNSPECIFIED ORGANISM (2) Subcutaneous abscess Code(s): L02.91 - CUTANEOUS ABSCESS, UNSPECIFIED (3) Abdominal fistula Code(s): K63.2 - FISTULA OF INTESTINE (4) S/P left colectomy Code(s): Z90.49 - ACQUIRED ABSENCE OF OTHER SPECIFIED PARTS OF DIGESTIVE TRACT (5) Colon cancer Code(s): C18.9 - MALIGNANT NEOPLASM OF COLON, UNSPECIFIED (6) CAD (coronary artery disease) Code(s): I25.10 - ATHSCL HEART DISEASE OF [place] CORONARY ARTERY W/O ANG PCTRS Qualifiers: Coronary Disease-Associated Artery/Lesion type: [place] artery [place] vs. transplanted heart: [place] heart Associated angina: without angina Qualified Code(s): I25.10 - Atherosclerotic heart disease of [place] coronary artery without angina pectoris (7) CVA (cerebral vascular accident) Code(s): I63.9 - CEREBRAL INFARCTION, UNSPECIFIED Qualifiers: CVA mechanism: unspecified Qualified Code(s): I63.9 - Cerebral infarction, unspecified (8) HTN (hypertension) Code(s): I10 - ESSENTIAL (PRIMARY) HYPERTENSION Qualifiers: Hypertension type: essential hypertension Qualified Code(s): I10 - Essential (primary) hypertension (9) Hypokalemia Code(s): E87.6 - HYPOKALEMIA (10) Parkinson disease Code(s): G20 - PARKINSON'S DISEASE (11) Diabetes mellitus Code(s): E11.9 - TYPE 2 DIABETES MELLITUS WITHOUT COMPLICATIONS (12) Afib Code(s): I48.91 - UNSPECIFIED ATRIAL FIBRILLATION Qualifiers: Atrial fibrillation type: permanent Qualified Code(s): I48.21 - Permanent atrial fibrillation Assessment/Plan IV abtx, IV Pressors Surgery input pending ID consult is appreciated. Cardio consult (Dr Samuel) at bed side. AM labs. Pt's condition was d/w pt and her dg; all questions were answeered Time spent for managing pt's care: 35 min Prognosis: reserved.
[2020-01-09] MEDS ORDERED: ACETAMINOPHEN 1000 MG/100 ML VIAL (NON FORMULARY) IVPB PRN (12:59)
--- NOTE | 2020-01-09 13:08 | PN ---
Progress Note (short form) - Note Progress Note: ct reviewed, midline collection with air and fecaloid material will not drain through a catheter. recommend surgical consultation and ind. findings discussed with Dr Garza.
--- NOTE | 2020-01-09 13:19 | CON.CARD ---
Consult Consult Specialty:: Cardiology Referred by:: Hospitalist Medicine Reason for Consultation:: Rapid afib, hypotension - History of Present Illness Chief Complaint: Abd fluid collection History of Present Illness: Patient is an 84 year old female with underlying history of parkinson's syndrome , cervical cancer s/p hysterectomy, salpingoopherectomy, PAF on DOAC, HTN, hyperthyroidism, DM, bronchial asthma, hemicolectomy for colon CA, abdominal hernia repair which was complicated by small bowel resection and mesh placement. She developed an abscess that was drained on 10/30, abscess cultures grew vre, ecoli, strep viridans, lactobacillus, myesha albicans, subsequently an opening and drainage from the wound having developed enterocutaneous fistula , she has had increased drainage and some increased abdominal discomfort, noted to be hypotensive and started on pressors, CT scan shows subcutaneous collections unamenable to percutaneous drainage. 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 Cardio/Vascular: Yes: AFIB, HTN Pulmonary: Yes: Asthma Gastrointestinal: Yes: Cancer (colon) Endocrine: Yes: Hyperthyroidism Additional Medical History: Glaucoma - Past Surgical History Past Surgical History: Yes: Colectomy, Hysterectomy - Alcohol/Substance Use Hx Alcohol Use: No History of Substance Use: reports: None - Smoking History Smoking history: Never smoked Have you smoked in the past 12 months: No Aproximately how many cigarettes per day: 0 - Social History ADL: Family Assistance History of Recent Travel: No Home Medications - Allergies Allergies/Adverse Reactions: Allergies Allergy/AdvReac Type Severity Reaction Status Date / Time No Known Allergies Allergy Verified 01/08/20 13:36 - Home Medications Home Medications: Ambulatory Orders Bimatoprost [Lumigan] 1 drop OU DAILY 04/09/17 Brimonidine Tartrate/Timolol [Combigan 0.2%-0.5% Eye Drops] 5 ml OU BID Latanoprost 0.005% Eye Drops [Xalatan 0.005% Eye Drops -] 1 drop HS 02/14/19 Methimazole 5 mg PO BID 02/14/19 Ascorbic Acid [Vitamin C -] 500 mg PO DAILY tablet 03/02/19 Metoprolol Tartrate [Lopressor -] 50 mg PO BID tablet 03/02/19 Acetaminophen [Tylenol .Regular Strength -] 650 mg PO Q6H PRN tablet 03/16/19 Nitroglycerin Sublingual [Nitrostat -] 0.4 mg SL Q5M PRN tab 03/20/19 Albuterol 0.083% Nebulizer Kathrin [Ventolin 0.083% Nebulizer Soln -] 1 amp NEB Q6H PRN amp 03/29/19 Calcium (Oyster Shell) [Os-Dioni 500MG -] 500 mg PO DAILY 10/08/19 Fluticasone Prop 0.05% Nasal [Flonase -] 1 - 2 spray NS DAILY 10/08/19 Acetaminophen [Tylenol .Regular Strength -] 650 mg PO Q6H PRN tablet 10/28/19 Ferrous Sulfate [Feosol] 325 mg PO DAILY ud 10/28/19 Furosemide [Lasix -] 20 mg PO DAILY tablet 10/28/19 Amox-Tr/K Cl [Augmentin 875-125mg Tablet -] 1 tab PO BID@0800,1730 3 Days #6 tablet 11/06/19 Apixaban [Eliquis -] 5 mg PO BID tablet 11/06/19 Linezolid [Zyvox (Restricted To Id) -] 600 mg PO BID 3 Days #6 tablet 11/06/19 Losartan Potassium [Cozaar -] 25 mg PO AM tablet 11/06/19 Review of Systems - Review of Systems Gastrointestinal: reports: Abdominal Pain Vital Signs: Vital Signs Temperature 98 F 01/09/20 12:54 Pulse Rate 72 01/09/20 12:54 Respiratory Rate 18 01/09/20 12:54 Blood Pressure 119/71 01/09/20 12:00 O2 Sat by Pulse Oximetry (%) 95 01/09/20 07:56 Constitutional: Yes: No Distress, Calm Neck: Yes: Supple Respiratory: Yes: Regular, Diminished Gastrointestinal: Yes: Soft, Hypoactive Bowel Sounds, Other (Abd wall abscesses) Cardiovascular: Yes: Pulse Irregular JVD: No Carotid Bruit: No Heart Sounds: Yes: S1, S2 Murmur: Yes: Systolic Murmur, Grade 1 Edema: Yes Edema: LLE: Trace, RLE: Trace - Other Data Labs, Other Data: CBC, BMP 01/09/20 05:20 01/09/20 05:20 INR, PTT INR 2.26 (0.83-1.09) H 01/08/20 14:00 Troponin, BNP 01/08/20 01/09/20 01/09/20 14:00 05:20 05:20 Troponin I < 0.02 < 0.02 B-Natriuretic Peptide 2744.4 H Troponin, BNP 01/08/20 01/09/20 01/09/20 14:00 05:20 05:20 Troponin I < 0.02 < 0.02 B-Natriuretic Peptide 2744.4 H Afib @ 105 RBBB Ejection Fraction %: LVEF > or = 40 % Imaging - Results Chest X-ray: Report Reviewed (NAD) Cat Scan: Report Reviewed (Multiple subcutaneous abscesses) Problem List - Problems (1) Abscess Code(s): L02.91 - CUTANEOUS ABSCESS, UNSPECIFIED (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 (4) Afib Code(s): I48.91 - UNSPECIFIED ATRIAL FIBRILLATION Qualifiers: Atrial fibrillation type: permanent Qualified Code(s): I48.21 - Permanent atrial fibrillation (5) Anemia Code(s): D64.9 - ANEMIA, UNSPECIFIED (6) Fluid collection at surgical site Code(s): T88.8XXA - OTH COMPLICATIONS OF SURGICAL AND MEDICAL CARE, NEC, INIT Qualifiers: Encounter type: initial encounter Qualified Code(s): T88.8XXA - Other specified complications of surgical and medical care, not elsewhere classified, initial encounter (7) Hyperthyroidism Code(s): E05.90 - THYROTOXICOSIS, UNSP WITHOUT THYROTOXIC CRISIS OR STORM (8) S/P left hemicolectomy Code(s): Z90.49 - ACQUIRED ABSENCE OF OTHER SPECIFIED PARTS OF DIGESTIVE TRACT (9) S/P repair of ventral hernia Code(s): Z98.890 - OTHER SPECIFIED POSTPROCEDURAL STATES; Z87.19 - PERSONAL HISTORY OF OTHER DISEASES OF THE DIGESTIVE SYSTEM (10) Sepsis Code(s): A41.9 - SEPSIS, UNSPECIFIED ORGANISM Qualifiers: Sepsis type: sepsis due to unspecified organism Qualified Code(s): A41.9 - Sepsis, unspecified organism (11) CAD (coronary artery disease) Code(s): I25.10 - ATHSCL HEART DISEASE OF [place] CORONARY ARTERY W/O ANG PCTRS Qualifiers: Coronary Disease-Associated Artery/Lesion type: [place] artery [place] vs. transplanted heart: [place] heart Associated angina: without angina Qualified Code(s): I25.10 - Atherosclerotic heart disease of [place] coronary artery without angina pectoris (12) CVA (cerebral vascular accident) Code(s): I63.9 - CEREBRAL INFARCTION, UNSPECIFIED Qualifiers: CVA mechanism: unspecified Qualified Code(s): I63.9 - Cerebral infarction, unspecified (13) HTN (hypertension) Code(s): I10 - ESSENTIAL (PRIMARY) HYPERTENSION Qualifiers: Hypertension type: essential hypertension Qualified Code(s): I10 - Essential (primary) hypertension (14) Microcytic anemia Code(s): D50.9 - IRON DEFICIENCY ANEMIA, UNSPECIFIED Assessment/Plan 1. Subcutaneous Abscesses, Enterocutaneous Fisulta 2. Septic shock 3. Post abdominal hernia repair complicated by small bowel resection and mesh placement, s/p IR drain of abscess 4. Persistent atrial Fibrillation [id number] score of 5 5. Diastolic LV dysfunction with clinical class 0 NYHA classification LV failure 6. HTN 7. DM 8. Hyperthyroidism 9. History of cervical carcinoma post resection 10. History of colon carcinoma post hemicolectomy 11. Anemia PLAN: 1. Abx and antifungal per C&S, surgery f/u, not ideal IR drain case 2. Hold Eliquis pending drainage 3. Wean Levophed for MAP>65 mmHg, holding Lopressor 25 mg BID, Losartan 25 mg QD and Lasix 20 mg QD pending hemodynamic stability 4. IV Lopressor as needed for rate-control 5. Thank you for consultative opportunity
--- NOTE | 2020-01-09 14:17 | PN ---
Physical Exam: SUBJECTIVE: Patient seen and examined O/N: levophed tritrated down from 10 to 5 Pt endorses vague abdominal pain. Endorses appeptite. Denies dysuria or gas during urination OBJECTIVE: Vital Signs Period Temp Pulse Resp BP Sys/Ugarte Pulse Ox Last 24 Hr 97.7 F-98.3 F 66-120 14-26 70-149/41-81 95-100 GENERAL: The patient is awake, alert, and fully oriented, in no acute distress. HEAD: NC/AT EYES: sclera anicteric, conjunctiva clear. No ptosis. ENT: Ears normal, nares patent, oropharynx clear without exudates, moist mucous membranes. NECK: Trachea midline, full range of motion, supple. LUNGS: Breath sounds equal, mild expiratory wheezes to auscultation bilaterally, no crackles, no accessory muscle use. HEART: Regular rate and rhythm, S1, S2 without murmur, rub or gallop. ABDOMEN: Soft, nontender, nondistended, no guarding, no rebound. Midline fistulas x2 with thin green-brown drainage w/ fecculent particles EXTREMITIES: 2+ pulses, warm, well-perfused, no edema. NEUROLOGICAL: Normal speech, gait not observed. PSYCH: mildly anxious SKIN: Warm, dry, normal turgor, no rashes or lesions noted Laboratory Results - last 24 hr 01/08/20 01/08/20 01/08/20 13:45 14:00 14:00 WBC RBC Hgb Hct MCV MCH MCHC RDW Plt Count MPV Absolute Neuts (auto) Neutrophils % Lymphocytes % Monocytes % Eosinophils % Basophils % Nucleated RBC % PT with INR 26.90 H INR 2.26 H PTT (Actin FS) 35.4 Anticoagulation Therapy Puncture Site ABG pH ABG pCO2 at Pt Temp ABG pO2 at Pt Temp ABG HCO3 ABG O2 Sat (Measured) ABG O2 Content ABG Base Excess Alfonzo Test VBG pH 7.33 POC VBG pCO2 54.9 H POC VBG pO2 < 49 H VBG HCO3 28.3 VBG O2 Sat (Lolis) 15.8 L VBG Base Excess 1.9 O2 Delivery Device Oxygen Flow Rate Vent Mode Vent Rate Mechanical Rate Pressure Support Vent Sodium Potassium Chloride Carbon Dioxide Anion Gap BUN Creatinine Est GFR (CKD-EPI)AfAm Est GFR (CKD-EPI)NonAf POC Glucometer Random Glucose Lactic Acid Calcium Phosphorus Magnesium Total Bilirubin AST ALT Alkaline Phosphatase Creatine Kinase Troponin I < 0.02 B-Natriuretic Peptide Total Protein Albumin TSH Urine Color Urine Appearance Urine pH Ur Specific Sparks Urine Protein Urine Glucose (UA) Urine Ketones Urine Blood Urine Nitrite Urine Bilirubin Urine Urobilinogen Ur Leukocyte Esterase Urine WBC (Auto) Urine RBC (Auto) Urine Casts (Auto) U Epithel Cells (Auto) Urine Bacteria (Auto) Blood Type Antibody Screen Crossmatch 01/08/20 01/08/20 01/08/20 14:00 14:00 14:00 WBC 8.5 RBC 3.02 L Hgb 8.7 L Hct 26.6 L D MCV 88.0 MCH 28.7 MCHC 32.7 RDW 17.3 H Plt Count 436 H D MPV 7.4 L Absolute Neuts (auto) 6.4 Neutrophils % 75.9 D Lymphocytes % 14.5 D Monocytes % 9.1 Eosinophils % 0.4 D Basophils % 0.1 Nucleated RBC % 0 PT with INR INR PTT (Actin FS) Anticoagulation Therapy Puncture Site ABG pH ABG pCO2 at Pt Temp ABG pO2 at Pt Temp ABG HCO3 ABG O2 Sat (Measured) ABG O2 Content ABG Base Excess Alfonzo Test VBG pH POC VBG pCO2 POC VBG pO2 VBG HCO3 VBG O2 Sat (Lolis) VBG Base Excess O2 Delivery Device Oxygen Flow Rate Vent Mode Vent Rate Mechanical Rate Pressure Support Vent Sodium 139 Potassium 4.2 Chloride 104 Carbon Dioxide 29 Anion Gap 7 L BUN 13.6 Creatinine 0.7 Est GFR (CKD-EPI)AfAm 92.86 Est GFR (CKD-EPI)NonAf 80.12 POC Glucometer Random Glucose 107 H Lactic Acid 3.6 H* Calcium 7.7 L Phosphorus Magnesium Total Bilirubin 0.4 AST 13 L ALT 15 Alkaline Phosphatase 149 H Creatine Kinase Troponin I B-Natriuretic Peptide Total Protein 4.9 L Albumin 1.6 L TSH Urine Color Urine Appearance Urine pH Ur Specific Sparks Urine Protein Urine Glucose (UA) Urine Ketones Urine Blood Urine Nitrite Urine Bilirubin Urine Urobilinogen Ur Leukocyte Esterase Urine WBC (Auto) Urine RBC (Auto) Urine Casts (Auto) U Epithel Cells (Auto) Urine Bacteria (Auto) Blood Type Antibody Screen Crossmatch 01/08/20 01/08/20 01/08/20 14:00 15:46 18:41 WBC RBC Hgb Hct MCV MCH MCHC RDW Plt Count MPV Absolute Neuts (auto) Neutrophils % Lymphocytes % Monocytes % Eosinophils % Basophils % Nucleated RBC % PT with INR INR PTT (Actin FS) Anticoagulation Therapy Puncture Site ABG pH ABG pCO2 at Pt Temp ABG pO2 at Pt Temp ABG HCO3 ABG O2 Sat (Measured) ABG O2 Content ABG Base Excess Alfonzo Test VBG pH POC VBG pCO2 POC VBG pO2 VBG HCO3 VBG O2 Sat (Lolis) VBG Base Excess O2 Delivery Device Oxygen Flow Rate Vent Mode Vent Rate Mechanical Rate Pressure Support Vent Sodium Potassium Chloride Carbon Dioxide Anion Gap BUN Creatinine Est GFR (CKD-EPI)AfAm Est GFR (CKD-EPI)NonAf POC Glucometer Random Glucose Lactic Acid 1.2 Calcium Phosphorus Magnesium Total Bilirubin AST ALT Alkaline Phosphatase Creatine Kinase Troponin I B-Natriuretic Peptide Total Protein Albumin TSH Urine Color Dk yellow Urine Appearance Clear Urine pH 6.5 Ur Specific Sparks 1.012 Urine Protein Trace Urine Glucose (UA) Negative Urine Ketones Negative Urine Blood Negative Urine Nitrite Negative Urine Bilirubin Negative Urine Urobilinogen 1.0 Ur Leukocyte Esterase 2+ H Urine WBC (Auto) 67 Urine RBC (Auto) 2 Urine Casts (Auto) 5 U Epithel Cells (Auto) 0.2 Urine Bacteria (Auto) 80.2 Blood Type O POSITIVE Antibody Screen Negative Crossmatch See Detail 01/08/20 01/08/20 01/09/20 20:45 22:10 00:30 WBC 11.4 H RBC 3.13 L Hgb 9.2 L Hct 28.2 L MCV 89.9 MCH 29.2 MCHC 32.5 RDW 16.7 H Plt Count 363 MPV 7.1 L Absolute Neuts (auto) Neutrophils % Lymphocytes % Monocytes % Eosinophils % Basophils % Nucleated RBC % PT with INR INR PTT (Actin FS) Anticoagulation Therapy No Result Required. Puncture Site Left radial ABG pH 7.42 ABG pCO2 at Pt Temp 35.4 ABG pO2 at Pt Temp 125 H ABG HCO3 22.7 ABG O2 Sat (Measured) 98.2 H ABG O2 Content 19.7 ABG Base Excess -0.6 Alfonzo Test Positive VBG pH POC VBG pCO2 POC VBG pO2 VBG HCO3 VBG O2 Sat (Lolis) VBG Base Excess O2 Delivery Device Nasal Oxygen Flow Rate Yes Vent Mode No Result Required. Vent Rate No Result Required. Mechanical Rate No Result Required. Pressure Support Vent No Result Required. Sodium Potassium Chloride Carbon Dioxide Anion Gap BUN Creatinine Est GFR (CKD-EPI)AfAm Est GFR (CKD-EPI)NonAf POC Glucometer 163 Random Glucose Lactic Acid Calcium Phosphorus Magnesium Total Bilirubin AST ALT Alkaline Phosphatase Creatine Kinase Troponin I B-Natriuretic Peptide Total Protein Albumin TSH Urine Color Urine Appearance Urine pH Ur Specific Sparks Urine Protein Urine Glucose (UA) Urine Ketones Urine Blood Urine Nitrite Urine Bilirubin Urine Urobilinogen Ur Leukocyte Esterase Urine WBC (Auto) Urine RBC (Auto) Urine Casts (Auto) U Epithel Cells (Auto) Urine Bacteria (Auto) Blood Type Antibody Screen Crossmatch 01/09/20 01/09/20 01/09/20 05:20 05:20 05:20 WBC 9.5 RBC 3.18 L Hgb 9.6 L Hct 28.5 L MCV 89.5 MCH 30.2 MCHC 33.8 RDW 16.5 H Plt Count 382 MPV 7.5 Absolute Neuts (auto) 7.0 Neutrophils % 73.2 Lymphocytes % 12.1 Monocytes % 10.2 Eosinophils % 4.3 D Basophils % 0.2 Nucleated RBC % 0 PT with INR INR PTT (Actin FS) Anticoagulation Therapy Puncture Site ABG pH ABG pCO2 at Pt Temp ABG pO2 at Pt Temp ABG HCO3 ABG O2 Sat (Measured) ABG O2 Content ABG Base Excess Alfonzo Test VBG pH POC VBG pCO2 POC VBG pO2 VBG HCO3 VBG O2 Sat (Lolis) VBG Base Excess O2 Delivery Device Oxygen Flow Rate Vent Mode Vent Rate Mechanical Rate Pressure Support Vent Sodium 139 Potassium 3.3 L Chloride 108 H Carbon Dioxide 23 Anion Gap 7 L BUN 10.4 Creatinine 0.5 L Est GFR (CKD-EPI)AfAm 103.73 Est GFR (CKD-EPI)NonAf 89.50 POC Glucometer Random Glucose 137 H Lactic Acid Calcium 7.1 L Phosphorus 3.0 Magnesium 1.5 L Total Bilirubin 0.7 AST 10 L ALT 12 L Alkaline Phosphatase 132 H Creatine Kinase 18 L Troponin I < 0.02 B-Natriuretic Peptide Total Protein 4.2 L Albumin 1.4 L TSH 0.01 L Urine Color Urine Appearance Urine pH Ur Specific Sparks Urine Protein Urine Glucose (UA) Urine Ketones Urine Blood Urine Nitrite Urine Bilirubin Urine Urobilinogen Ur Leukocyte Esterase Urine WBC (Auto) Urine RBC (Auto) Urine Casts (Auto) U Epithel Cells (Auto) Urine Bacteria (Auto) Blood Type Antibody Screen Crossmatch 01/09/20 01/09/20 05:20 05:43 WBC RBC Hgb Hct MCV MCH MCHC RDW Plt Count MPV Absolute Neuts (auto) Neutrophils % Lymphocytes % Monocytes % Eosinophils % Basophils % Nucleated RBC % PT with INR INR PTT (Actin FS) Anticoagulation Therapy Puncture Site ABG pH ABG pCO2 at Pt Temp ABG pO2 at Pt Temp ABG HCO3 ABG O2 Sat (Measured) ABG O2 Content ABG Base Excess Alfonzo Test VBG pH POC VBG pCO2 POC VBG pO2 VBG HCO3 VBG O2 Sat (Lolis) VBG Base Excess O2 Delivery Device Oxygen Flow Rate Vent Mode Vent Rate Mechanical Rate Pressure Support Vent Sodium Potassium Chloride Carbon Dioxide Anion Gap BUN Creatinine Est GFR (CKD-EPI)AfAm Est GFR (CKD-EPI)NonAf POC Glucometer 121 Random Glucose Lactic Acid Calcium Phosphorus Magnesium Total Bilirubin AST ALT Alkaline Phosphatase Creatine Kinase Troponin I B-Natriuretic Peptide 2744.4 H Total Protein Albumin TSH Urine Color Urine Appearance Urine pH Ur Specific Sparks Urine Protein Urine Glucose (UA) Urine Ketones Urine Blood Urine Nitrite Urine Bilirubin Urine Urobilinogen Ur Leukocyte Esterase Urine WBC (Auto) Urine RBC (Auto) Urine Casts (Auto) U Epithel Cells (Auto) Urine Bacteria (Auto) Blood Type Antibody Screen Crossmatch Active Medications Generic Name Dose Route Start Last Admin Trade Name Freq PRN Reason Stop Dose Admin Acetaminophen 650 mg 01/08/20 19:28 Tylenol - PO Q6H PRN PAIN LEVEL 1-5 Acetaminophen 1,000 mg 01/09/20 12:59 01/09/20 13:26 Ofirmev Injection - IVPB 01/10/20 12:59 1,000 mg Q6H PRN Administration PAIN LEVEL 4 - 6 Albuterol Sulfate 1 amp 01/08/20 19:28 Ventolin 0.083% Nebulizer Soln - NEB Q6H PRN SHORT OF BREATH/WHEEZING Brimonidine Tartrate 1 drop 01/08/20 22:00 01/09/20 09:02 Alphagan 0.2% - OU 1 drop BID SRIKANTH Administration Chlorhexidine Gluconate 1 applic 01/08/20 22:00 01/08/20 22:40 Hibiclens For Decolonization - TP 1 applic HS SRIKANTH Administration Norepinephrine Bitartrate 8, 500 mls @ 18.75 mls/hr 01/08/20 18:30 01/09/20 05:40 000 mcg/ Dextrose IV 5 mcg/min TITR SRIKANTH 18.75 mls/hr Titration Protocol 5 MCG/MIN Sodium Chloride 1,000 mls @ 100 mls/hr 01/08/20 19:00 01/09/20 07:29 Normal Saline - IV 100 mls/hr ASDIR SRIKANTH Administration Ertapenem 1 gm/ Sodium 50 mls @ 100 mls/hr 01/09/20 10:00 01/09/20 09:43 Chloride IVPB 100 mls/hr DAILY SRIKANTH Administration Linezolid 600 mg in 300 mls @ 300 mls/hr 01/09/20 10:00 01/09/20 10:33 Zyvox 600 Mg Premix Bag (Restricted To Id) - IVPB 300 mls/hr BID SRIKANTH Administration Protocol Fluconazole 100 mls @ 100 mls/hr 01/09/20 10:00 01/09/20 10:33 Diflucan 200 Mg/Ns Premixed Ivpb - IVPB 100 mls/hr DAILY SRIKANTH Administration Insulin Aspart 1 vial 01/08/20 22:00 01/09/20 12:49 Novolog Vial Sliding Scale - SQ Not Given ACHS SRIKANTH Protocol Latanoprost 1 drop 01/09/20 22:00 Xalatan 0.005% Eye Drops - OU HS SRIKANTH Methimazole 10 mg 01/08/20 22:00 01/09/20 09:02 Tapazole - PO 10 mg BID SRIKANTH Administration Mupirocin 1 applic 01/08/20 22:00 01/09/20 09:01 Bactroban Ointment (For Decolonization) - NS 01/13/20 21:59 1 applic BID SRIKANTH Administration Pantoprazole Sodium 40 mg 01/08/20 22:00 01/09/20 09:02 Protonix Iv IVPUSH 40 mg BID SRIKANTH Administration Timolol Maleate 1 drop 01/08/20 22:00 01/09/20 09:03 Timoptic 0.5% OU 1 drop BID SRIKANTH Administration ASSESSMENT/PLAN: 84 year old female with PMH of anemia (prior transfusions required), A. fib (on eliquis), CHF (EF55-60%), IDDM, HTN, DJD, hyperthyroidism, obesity, resting tremors, lipidemia, obstructing sigmoid mass s/p L-hemicolectomy, incsional hernia repair in 10/09 complicated by enerocutaneous fistula and prolonged hospitalization (discharged 11/07/19 after abdominal wall collection drained by IR and growing VRE), presenting from home with hypotension. Admitted to the ICU for sepsis. Neuro -Arousable and oriented x2 -Hx of chronic resting tremors Cardiovascular -RIJ placed 01/08/20 -evophed to maintain MAP >65 -Closely monitor hemodynamics -EKG: Afib w/RVR @ 105 -trop neg x2 -BNP 2744, but doesn't appear to be in CHFe -Hx of Afib (on eliquis), CHF, HTN -HOLD home eliquis, in case of intervention(IR vs Surgery) -Hold anti-hypertensives in setting of sepsis and possible acute bleed -Cardio consulted (Dr. Samuel) Pulmonary -CXR: no infiltrates -Pt mildly tachypneic -F/u ABG GI -Hx of colon CA s/p hemicolectomy, hernia repair complicated by enterocutaneous fistulas and abd wall abscess (w/VRE) -Fistulas draining malodorous feces, likely source of infection -Start IV abx -Surgery consulted (Dr. Alvarado) -Per family, pt recently treated with abx few weeks ago. Will send for C. Diff -CTAP: interval enlargement of several fluid collections consistent w/abscesses abutting ant aspect of abd wall musculature. Diffuse gastric wall thickening suggestive of edema and acute gastritis. -Start GI ppx with IV protonix 40mg BID -Consult IR (Dr. Collins) for possible drainage of abscesses. -Elevated alk phos. No evidence of acute cholecystitis. ID -Sepsis likely 2/2 fistulas vs UTI -Lactic acid: 3.6 -->1.2 -Central line placed, fluid resuscitation and levophed to maintain MAP >65 -Pt has hx of VRE from abdominal wall abscess -ID consulted (Dr. Harris): --zyvox, ertapenem, diflucan -F/u blood, urine, and wound cx Renal -UTI possible source of sepsis -UA: 2+ LE, 67 WBC -Cont IV abx -Monitor on I's & O's -Monitor BMP Heme -Hx of normocytic anemia -Hgb: 8.7 on arrival, ED transfused 1unit PRBC -Cont to monitor CBC -F/u stool guaic Endo -Hx of hyperthyroidism and DM -ISS and BGM TIDAC -Cont home methimazole 10mg BID DVT ppx -SCDs FEN -IV NS @ 100ml/hr -Monitor lytes and replete prn -NPO Dispo: We will continue to follow the patient. Thank you for this consultative opportunity. Visit type - Emergency Visit Emergency Visit: No - New Patient This patient is new to me today: Yes Date on this admission: 01/09/20 - Critical Care Critical Care patient: Yes Total Critical Care Time (in minutes): 35 Critical Care Statement: The care of this patient involved high complexity decision making to prevent further life threatening deterioration of the patient's condition and/or to evaluate & treat vital organ system(s) failure or risk of failure. ATTENDING PHYSICIAN STATEMENT I saw and evaluated the patient. I reviewed the resident's note and discussed the case with the resident. I agree with the resident's findings and plan as documented. SUBJECTIVE: OBJECTIVE: ASSESSMENT AND PLAN:
[2020-01-09] MEDS: NOREPINEPHRINE BITARTRATE 8,000 MCG in DEXTROSE 5%-WATER - 492 ML IV SCH (21:30)
[2020-01-09] MEDS: CHLORHEXIDINE GLUCONATE 4% CLEANSER FOR DECOLONIZATION TP SCH (21:32)
[2020-01-09] MEDS: LATANOPROST 0.005% OPHTH SOLN 2.5ML BOTTLE OU SCH (21:33)
[2020-01-09] MEDS ORDERED: MELATONIN 5 MG TABLETS PO ONE (21:53)
[2020-01-09] MEDS ORDERED: ONDANSETRON 4 MG/2 ML VIAL ONE (23:50)
[2020-01-09] MEDS ORDERED: PROCHLORPERAZINE INJECTION 10 MG/2 ML VIAL IVPB ONE (23:51)
[2020-01-09] MEDS ORDERED: PROMETHAZINE HCL 25 MG/1 ML VIAL IVPUSH ONE (23:56)
[2020-01-10] MEDS: INSULIN SLIDING SCALE (NOVOLOG) 1 VIAL SQ SCH ×4 (06:21→22:25)
[2020-01-10 06:25] LABS: HEMATOCRIT 26.7 % (32.4-45.2); MCH 30.3 pg (25.7-33.7); MCHC 33.8 g/dl (32.0-36.0); MEAN CELL VOLUME 89.6 fl (80-96); MEAN PLT VOLUME 7.2 fl (7.5-11.1); PLATELET COUNT 332 K/MM3 (134-434); RBC 2.98 M/mm3 (3.60-5.2); RDW 16.8 % (11.6-15.6); WHITE BLOOD COUNT 6.4 K/mm3 (4.0-10.0)
[2020-01-10 06:40] LABS: CALCIUM 7.1 mg/dL (8.5-10.1); CREATININE 0.4 mg/dL (0.55-1.3); MAGNESIUM 1.4 mg/dL (1.8-2.4); PHOSPHOROUS 2.7 mg/dL (2.5-4.9); POTASSIUM 3.2 mmol/L (3.5-5.1)
--- NOTE | 2020-01-10 07:10 | PN ---
Progress Note, Physician Chief Complaint: awake alert NAD denies pain - afebrile; consults noted and d/w pt and family at bedside ( 3 children) awaiting surgical input. - Current Medication List Current Medications: Active Medications Acetaminophen (Tylenol -) 650 mg PO Q6H PRN PRN Reason: PAIN LEVEL 1-5 Acetaminophen (Ofirmev Injection -) 1,000 mg IVPB Q6H PRN PRN Reason: PAIN LEVEL 4 - 6 Stop: 01/10/20 12:59 Last Admin: 01/09/20 13:26 Dose: 1,000 mg Albuterol Sulfate (Ventolin 0.083% Nebulizer Soln -) 1 amp NEB Q6H PRN PRN Reason: SHORT OF BREATH/WHEEZING Brimonidine Tartrate (Alphagan 0.2% -) 1 drop OU BID [facility] Last Admin: 01/09/20 21:32 Dose: 1 drop Chlorhexidine Gluconate (Hibiclens For Decolonization -) 1 applic TP HS [facility] Last Admin: 01/09/20 21:32 Dose: 1 applic Norepinephrine Bitartrate 8, (000 mcg/ Dextrose) 500 mls @ 18.75 mls/hr IV TITR [facility]; Protocol Last Admin: 01/09/20 21:30 Dose: Not Given Sodium Chloride (Normal Saline -) 1,000 mls @ 100 mls/hr IV ASDIR [facility] Last Admin: 01/09/20 21:30 Dose: Not Given Ertapenem 1 gm/ Sodium (Chloride) 50 mls @ 100 mls/hr IVPB DAILY [facility] Last Admin: 01/09/20 09:43 Dose: 100 mls/hr Linezolid (Zyvox 600 Mg Premix Bag (Restricted To Id) -) 600 mg in 300 mls @ 300 mls/hr IVPB BID [facility]; Protocol Last Admin: 01/09/20 21:33 Dose: 300 mls/hr Fluconazole (Diflucan 200 Mg/Ns Premixed Ivpb -) 100 mls @ 100 mls/hr IVPB DAILY [facility] Last Admin: 01/09/20 10:33 Dose: 100 mls/hr Insulin Aspart (Novolog Vial Sliding Scale -) 1 vial SQ ACHS [facility]; Protocol Last Admin: 01/10/20 06:21 Dose: Not Given Latanoprost (Xalatan 0.005% Eye Drops -) 1 drop OU HS [facility] Last Admin: 01/09/20 21:33 Dose: 1 drop Methimazole (Tapazole -) 10 mg PO BID [facility] Last Admin: 01/09/20 21:32 Dose: 10 mg Mupirocin (Bactroban Ointment (For Decolonization) -) 1 applic NS BID [facility] Stop: 01/13/20 21:59 Last Admin: 01/09/20 21:31 Dose: 1 applic Pantoprazole Sodium (Protonix Iv) 40 mg IVPUSH BID [facility] Last Admin: 01/09/20 21:32 Dose: 40 mg Timolol Maleate (Timoptic 0.5%) 1 drop OU BID [facility] Last Admin: 01/09/20 21:32 Dose: 1 drop - Objective Vital Signs: Vital Signs Temperature 98.2 F 01/10/20 06:00 Pulse Rate 90 01/10/20 06:00 Respiratory Rate 16 01/10/20 06:00 Blood Pressure 117/72 01/10/20 06:00 O2 Sat by Pulse Oximetry (%) 95 01/09/20 19:31 Constitutional: Yes: No Distress, Calm Eyes: Yes: Conjunctiva Clear HENT: Yes: Atraumatic Neck: Yes: Supple Cardiovascular: No: Regular Rate and Rhythm Respiratory: Yes: Diminished Gastrointestinal: Yes: Soft, Other (fistula draining less). No: Tenderness Genitourinary: No: Hematuria Musculoskeletal: No: Joint Stiffness, Joint Swelling Extremities: No: Cold, Cool, Cyanosis Edema: No Integumentary: No: Rash, Venous Stasis Changes Neurological: Yes: Alert, Oriented ...Motor Strength: WNL Psychiatric: Yes: Alert, Oriented. No: Agitated, Suicidal Ideation Labs: CBC, BMP 01/10/20 05:00 01/10/20 05:00 INR, PTT INR 2.26 (0.83-1.09) H 01/08/20 14:00 - ....Imaging Other: Report Reviewed Assessment/Plan 84-year-old female history of anemia, A. fib, diabetes, hypertension, lipidemia , colon cancer status post resection and hernia repair complicated by abdominalskin wall abscess and fistula presents with hypotension. r/o sepsis; anemia; no obvious bleeding IVF; hold all BP meds; ICU admit; IV pressors broad spectrum IV ATB eliquis held - in anticipation of OR prognosis guarded d/w pt and family at bedside 2 daughters and 1 son ID, surgery, cardiology f/u d/w dr Samuel transfused in ER; cultures sent falls DVT aspiration decubs PFX d/w pt and staff t time 35 min
[2020-01-10] MEDS ORDERED: MAGNESIUM SULF 50% (8.12 MEQ/2 ML-1 GM VIAL) IVPB ONE (08:00)
[2020-01-10] MEDS: KCL 10 MEQ IVPB 10 MEQ/100 ML INFUS.BAG IVPB SCH ×3 (08:19→10:11)
[2020-01-10] MEDS: SODIUM CHLORIDE 1,000 ML IV SCH ×3 (08:21→22:01)
--- NOTE | 2020-01-10 09:03 | PN ---
Progress Note, Physician History of Present Illness: Remains on Levophed @ 5, afebrile, rate-controlled afib, possible OR for abscess drainage and repair of enterocutaneous fistula. - Current Medication List Current Medications: Active Medications Acetaminophen (Tylenol -) 650 mg PO Q6H PRN PRN Reason: PAIN LEVEL 1-5 Acetaminophen (Ofirmev Injection -) 1,000 mg IVPB Q6H PRN PRN Reason: PAIN LEVEL 4 - 6 Stop: 01/10/20 12:59 Last Admin: 01/09/20 13:26 Dose: 1,000 mg Albuterol Sulfate (Ventolin 0.083% Nebulizer Soln -) 1 amp NEB Q6H PRN PRN Reason: SHORT OF BREATH/WHEEZING Brimonidine Tartrate (Alphagan 0.2% -) 1 drop OU BID [facility] Last Admin: 01/09/20 21:32 Dose: 1 drop Chlorhexidine Gluconate (Hibiclens For Decolonization -) 1 applic TP HS [facility] Last Admin: 01/09/20 21:32 Dose: 1 applic Norepinephrine Bitartrate 8, (000 mcg/ Dextrose) 500 mls @ 18.75 mls/hr IV TITR [facility]; Protocol Last Admin: 01/09/20 21:30 Dose: Not Given Sodium Chloride (Normal Saline -) 1,000 mls @ 100 mls/hr IV ASDIR [facility] Last Admin: 01/10/20 08:21 Dose: 100 mls/hr Ertapenem 1 gm/ Sodium (Chloride) 50 mls @ 100 mls/hr IVPB DAILY [facility] Last Admin: 01/09/20 09:43 Dose: 100 mls/hr Linezolid (Zyvox 600 Mg Premix Bag (Restricted To Id) -) 600 mg in 300 mls @ 300 mls/hr IVPB BID [facility]; Protocol Last Admin: 01/09/20 21:33 Dose: 300 mls/hr Fluconazole (Diflucan 200 Mg/Ns Premixed Ivpb -) 100 mls @ 100 mls/hr IVPB DAILY [facility] Last Admin: 01/09/20 10:33 Dose: 100 mls/hr Potassium Chloride (Potassium Chloride 10 Meq Premix Ivpb -) 10 meq in 100 mls @ 100 mls/hr IVPB Q60M [facility] Stop: 01/10/20 10:59 Last Admin: 01/10/20 08:19 Dose: 100 mls/hr Insulin Aspart (Novolog Vial Sliding Scale -) 1 vial SQ ACHS [facility]; Protocol Last Admin: 01/10/20 06:21 Dose: Not Given Latanoprost (Xalatan 0.005% Eye Drops -) 1 drop OU HS [facility] Last Admin: 01/09/20 21:33 Dose: 1 drop Methimazole (Tapazole -) 10 mg PO BID [facility] Last Admin: 01/09/20 21:32 Dose: 10 mg Mupirocin (Bactroban Ointment (For Decolonization) -) 1 applic NS BID [facility] Stop: 01/13/20 21:59 Last Admin: 01/09/20 21:31 Dose: 1 applic Pantoprazole Sodium (Protonix Iv) 40 mg IVPUSH BID [facility] Last Admin: 01/09/20 21:32 Dose: 40 mg Timolol Maleate (Timoptic 0.5%) 1 drop OU BID [facility] Last Admin: 01/09/20 21:32 Dose: 1 drop - Objective Vital Signs: Vital Signs Temperature 98.1 F 01/10/20 08:00 Pulse Rate 91 H 01/10/20 08:00 Respiratory Rate 19 01/10/20 08:00 Blood Pressure 124/68 01/10/20 08:00 O2 Sat by Pulse Oximetry (%) 95 01/09/20 19:31 Constitutional: Yes: No Distress, Calm Neck: Yes: Supple Cardiovascular: Yes: Pulse Irregular Respiratory: Yes: Regular, Diminished Gastrointestinal: Yes: Soft, Hypoactive Bowel Sounds Edema: No Labs: CBC, BMP 01/10/20 05:00 01/10/20 05:00 INR, PTT INR 2.26 (0.83-1.09) H 01/08/20 14:00 Problem List - Problems (1) Abscess Code(s): L02.91 - CUTANEOUS ABSCESS, UNSPECIFIED (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 (4) Afib Code(s): I48.91 - UNSPECIFIED ATRIAL FIBRILLATION Qualifiers: Atrial fibrillation type: permanent Qualified Code(s): I48.21 - Permanent atrial fibrillation (5) Anemia Code(s): D64.9 - ANEMIA, UNSPECIFIED (6) Fluid collection at surgical site Code(s): T88.8XXA - OTH COMPLICATIONS OF SURGICAL AND MEDICAL CARE, NEC, INIT Qualifiers: Encounter type: initial encounter Qualified Code(s): T88.8XXA - Other specified complications of surgical and medical care, not elsewhere classified, initial encounter (7) Hyperthyroidism Code(s): E05.90 - THYROTOXICOSIS, UNSP WITHOUT THYROTOXIC CRISIS OR STORM (8) S/P left hemicolectomy Code(s): Z90.49 - ACQUIRED ABSENCE OF OTHER SPECIFIED PARTS OF DIGESTIVE TRACT (9) S/P repair of ventral hernia Code(s): Z98.890 - OTHER SPECIFIED POSTPROCEDURAL STATES; Z87.19 - PERSONAL HISTORY OF OTHER DISEASES OF THE DIGESTIVE SYSTEM (10) Sepsis Code(s): A41.9 - SEPSIS, UNSPECIFIED ORGANISM Qualifiers: Sepsis type: sepsis due to unspecified organism Qualified Code(s): A41.9 - Sepsis, unspecified organism (11) CAD (coronary artery disease) Code(s): I25.10 - ATHSCL HEART DISEASE OF [place] CORONARY ARTERY W/O ANG PCTRS Qualifiers: Coronary Disease-Associated Artery/Lesion type: [place] artery [place] vs. transplanted heart: [place] heart Associated angina: without angina Qualified Code(s): I25.10 - Atherosclerotic heart disease of [place] coronary artery without angina pectoris (12) CVA (cerebral vascular accident) Code(s): I63.9 - CEREBRAL INFARCTION, UNSPECIFIED Qualifiers: CVA mechanism: unspecified Qualified Code(s): I63.9 - Cerebral infarction, unspecified (13) HTN (hypertension) Code(s): I10 - ESSENTIAL (PRIMARY) HYPERTENSION Qualifiers: Hypertension type: essential hypertension Qualified Code(s): I10 - Essential (primary) hypertension (14) Microcytic anemia Code(s): D50.9 - IRON DEFICIENCY ANEMIA, UNSPECIFIED Assessment/Plan 1. Subcutaneous Abscesses, Enterocutaneous Fisulta 2. Septic shock 3. Post abdominal hernia repair complicated by small bowel resection and mesh placement, h/o IR drain of abscess 4. Persistent atrial Fibrillation [id number] score of 5 5. Diastolic LV dysfunction with clinical class 0 NYHA classification LV failure 6. HTN 7. DM 8. Hyperthyroidism 9. History of cervical carcinoma post resection 10. History of colon carcinoma post hemicolectomy 11. Anemia PLAN: 1. Abx and antifungal per C&S, surgery f/u, not ideal IR drain case 2. Hold Eliquis pending drainage 3. Wean Levophed for MAP>65 mmHg, holding Lopressor 25 mg BID, Losartan 25 mg QD and Lasix 20 mg QD pending hemodynamic stability 4. IV Lopressor as needed for rate-control 5. Surgery to evaluate for OR
[2020-01-10] MEDS: LINEZOLID 600 MG PREMIX BAG 600 MG/300 ML BAG IVPB SCH ×2 (09:18→22:00)
[2020-01-10] MEDS: NOREPINEPHRINE BITARTRATE 8,000 MCG in DEXTROSE 5%-WATER - 492 ML IV SCH ×2 (09:19→20:09)
[2020-01-10] MEDS: MUPIROCIN 2% TOPICAL OINTMENT FOR DECOLONIZATION NS SCH ×2 (09:23→22:02)
[2020-01-10] MEDS: BRIMONIDINE TARTRATE 0.2% OPHTHALMIC 5 ML BOTTLE OU SCH ×2 (09:24→22:04)
[2020-01-10] MEDS: METHIMAZOLE 10 MG TABLET (FP) PO SCH ×2 (09:31→22:00)
[2020-01-10] MEDS: TIMOLOL 0.5% OPHTHALMIC SOL 5 ML BOTTLE OU SCH ×2 (09:32→22:04)
[2020-01-10] MEDS: ERTAPENEM SODIUM 1 GM in SODIUM CHLORIDE 50 ML IVPB SCH (10:10)
[2020-01-10] MEDS: FLUCONAZOLE 200 MG/NS 100 ML IVPB SCH (10:10)
[2020-01-10] MEDS: PANTOPRAZOLE SODIUM 40 MG VIAL IVPUSH SCH ×2 (10:11→22:00)
--- NOTE | 2020-01-10 11:56 | PN ---
Teaching Attending Note Name of Resident: Kristal Akins ATTENDING PHYSICIAN STATEMENT I saw and evaluated the patient. I reviewed the resident's note and discussed the case with the resident. I agree with the resident's findings and plan as documented. SUBJECTIVE: Pt seen and examined in the ICU. Remains on levophed gtt. Denies abdominal pain , fevers or chills. OBJECTIVE: Vital Signs Period Temp Pulse Resp BP Sys/Ugarte Pulse Ox Last 24 Hr 97.4 F-98.3 F 72-94 13-19 104-127/55-72 95-96 Intake & Output 01/07/20 01/08/20 01/09/20 01/10/20 23:59 23:59 23:59 23:59 Intake Total 3282 1852.5 2503.5 Output Total 350 Balance 2932 1852.5 2503.5 Weight 68.175 kg 68.039 kg 70.817 kg Gen: NAD at rest Heart: RRR Lung: decreased breath sounds at the bases Abd: soft, nontender, feculent drainage from fistula Ext: no edema CBC, BMP 01/10/20 05:00 01/10/20 05:00 Active Medications Acetaminophen (Tylenol -) 650 mg PO Q6H PRN PRN Reason: PAIN LEVEL 1-5 Acetaminophen (Ofirmev Injection -) 1,000 mg IVPB Q6H PRN PRN Reason: PAIN LEVEL 4 - 6 Stop: 01/10/20 12:59 Last Admin: 01/09/20 13:26 Dose: 1,000 mg Albuterol Sulfate (Ventolin 0.083% Nebulizer Soln -) 1 amp NEB Q6H PRN PRN Reason: SHORT OF BREATH/WHEEZING Brimonidine Tartrate (Alphagan 0.2% -) 1 drop OU BID [facility] Last Admin: 01/10/20 09:24 Dose: 1 drop Chlorhexidine Gluconate (Hibiclens For Decolonization -) 1 applic TP HS [facility] Last Admin: 01/09/20 21:32 Dose: 1 applic Fluticasone Propionate (Flonase -) 1 spray NS BID [facility] Norepinephrine Bitartrate 8, (000 mcg/ Dextrose) 500 mls @ 18.75 mls/hr IV TITR [facility]; Protocol Last Admin: 01/10/20 09:19 Dose: 5 mcg/min, 18.75 mls/hr Sodium Chloride (Normal Saline -) 1,000 mls @ 100 mls/hr IV ASDIR [facility] Last Admin: 01/10/20 08:21 Dose: 100 mls/hr Ertapenem 1 gm/ Sodium (Chloride) 50 mls @ 100 mls/hr IVPB DAILY [facility] Last Admin: 01/10/20 10:10 Dose: 100 mls/hr Linezolid (Zyvox 600 Mg Premix Bag (Restricted To Id) -) 600 mg in 300 mls @ 300 mls/hr IVPB BID [facility]; Protocol Last Admin: 01/10/20 09:18 Dose: 300 mls/hr Fluconazole (Diflucan 200 Mg/Ns Premixed Ivpb -) 100 mls @ 100 mls/hr IVPB DAILY [facility] Last Admin: 01/10/20 10:10 Dose: 100 mls/hr Insulin Aspart (Novolog Vial Sliding Scale -) 1 vial SQ ACHS [facility]; Protocol Last Admin: 01/10/20 10:58 Dose: Not Given Latanoprost (Xalatan 0.005% Eye Drops -) 1 drop OU HS [facility] Last Admin: 01/09/20 21:33 Dose: 1 drop Methimazole (Tapazole -) 10 mg PO BID [facility] Last Admin: 01/10/20 09:31 Dose: Not Given Mupirocin (Bactroban Ointment (For Decolonization) -) 1 applic NS BID [facility] Stop: 01/13/20 21:59 Last Admin: 01/10/20 09:23 Dose: 1 applic Pantoprazole Sodium (Protonix Iv) 40 mg IVPUSH BID [facility] Last Admin: 01/10/20 10:11 Dose: 40 mg Timolol Maleate (Timoptic 0.5%) 1 drop OU BID [facility] Last Admin: 01/10/20 09:32 Dose: 1 drop ASSESSMENT AND PLAN: Subcutaneous Abscess Enterocutaneous Fisulta h/o Colon Ca s/p Hemicolectomy/Hernia Repair 10/09 r/o UTI Septic Shock Lactic Acidosis Atrial Fibrillation LV Diastolic Dysfunction HTN DM Hyperthyroidism Anemia - antibiotics per ID - f/u cultures - surgery f/u - IVF - monitor urine output, creatinine - NPO - rate control - hold anticoagulation for pending proceudres - DVT prophylaxis - continue ICU monitoring for hemodynamic instability critical care time spent in reviewing chart, evaluating patient and formulating plan 35 min
--- NOTE | 2020-01-10 12:40 | PN ---
Physical Exam: SUBJECTIVE: Patient seen and examined. No acute events overnight. Pt complains of mild abd discomfort. One episode of nausea this am, relieved with phenergan. OBJECTIVE: Vital Signs Period Temp Pulse Resp BP Sys/Ugarte Pulse Ox Last 24 Hr 97.4 F-98.3 F 72-94 13-19 104-127/55-72 95-96 GENERAL: Drowsy, but arousable, oriented to person and place, in no acute distress. HEAD: Normal with no signs of trauma. EYES: Pupils equal, round and reactive to light, extraocular movements intact, sclera anicteric, conjunctiva clear. No lid lag. EARS, NOSE, THROAT: Ears normal, nares patent, oropharynx clear without exudates. Moist mucous membranes. NECK: Normal range of motion, supple without lymphadenopathy, JVD, or masses. RIJ in place with no erythema. LUNGS: Breath sounds equal, clear to auscultation bilaterally. No wheezes, and no crackles. No accessory muscle use. HEART: Irregular rate and rhythm, normal S1 and S2 without murmur, rub or gallop. ABDOMEN: Soft, diffusely tender, normoactive bowel sounds, no guarding. Two 1cm periumbilical fistulas draining malodorous feces. EXTREMITIES: 2+ pulses, warm, well-perfused, no edema. NEUROLOGICAL: Cranial nerves II through XII grossly intact. Normal speech, gait not observed. SKIN: Warm, dry, normal turgor, no rashes or lesions noted Laboratory Results - last 24 hr CBC, BMP 01/10/20 05:00 01/10/20 05:00 Active Medications Acetaminophen (Tylenol -) 650 mg PO Q6H PRN PRN Reason: PAIN LEVEL 1-5 Acetaminophen (Ofirmev Injection -) 1,000 mg IVPB Q6H PRN PRN Reason: PAIN LEVEL 4 - 6 Stop: 01/10/20 12:59 Last Admin: 01/09/20 13:26 Dose: 1,000 mg Albuterol Sulfate (Ventolin 0.083% Nebulizer Soln -) 1 amp NEB Q6H PRN PRN Reason: SHORT OF BREATH/WHEEZING Brimonidine Tartrate (Alphagan 0.2% -) 1 drop OU BID [facility] Last Admin: 01/10/20 09:24 Dose: 1 drop Chlorhexidine Gluconate (Hibiclens For Decolonization -) 1 applic TP HS [facility] Last Admin: 01/09/20 21:32 Dose: 1 applic Fluticasone Propionate (Flonase -) 1 spray NS BID [facility] Norepinephrine Bitartrate 8, (000 mcg/ Dextrose) 500 mls @ 18.75 mls/hr IV TITR [facility]; Protocol Last Admin: 01/10/20 09:19 Dose: 5 mcg/min, 18.75 mls/hr Sodium Chloride (Normal Saline -) 1,000 mls @ 100 mls/hr IV ASDIR [facility] Last Admin: 01/10/20 08:21 Dose: 100 mls/hr Ertapenem 1 gm/ Sodium (Chloride) 50 mls @ 100 mls/hr IVPB DAILY [facility] Last Admin: 01/10/20 10:10 Dose: 100 mls/hr Linezolid (Zyvox 600 Mg Premix Bag (Restricted To Id) -) 600 mg in 300 mls @ 3 00 mls/hr IVPB BID [facility]; Protocol Last Admin: 01/10/20 09:18 Dose: 300 mls/hr Fluconazole (Diflucan 200 Mg/Ns Premixed Ivpb -) 100 mls @ 100 mls/hr IVPB DAILY [facility] Last Admin: 01/10/20 10:10 Dose: 100 mls/hr Insulin Aspart (Novolog Vial Sliding Scale -) 1 vial SQ ACHS [facility]; Protocol Last Admin: 01/10/20 10:58 Dose: Not Given Latanoprost (Xalatan 0.005% Eye Drops -) 1 drop OU HS [facility] Last Admin: 01/09/20 21:33 Dose: 1 drop Methimazole (Tapazole -) 10 mg PO BID [facility] Last Admin: 01/10/20 09:31 Dose: Not Given Mupirocin (Bactroban Ointment (For Decolonization) -) 1 applic NS BID [facility] Stop: 01/13/20 21:59 Last Admin: 01/10/20 09:23 Dose: 1 applic Pantoprazole Sodium (Protonix Iv) 40 mg IVPUSH BID [facility] Last Admin: 01/10/20 10:11 Dose: 40 mg Timolol Maleate (Timoptic 0.5%) 1 drop OU BID [facility] Last Admin: 01/10/20 09:32 Dose: 1 drop ASSESSMENT/PLAN: Patient is an 84 year old female with PMH of anemia (prior transfusions required), A. fib (on eliquis), CHF (EF55-60%), IDDM, HTN, DJD, hyperthyroidism, obesity, resting tremors, lipidemia, colon cancer s/p hemicolectomy, hernia repair in 10/09 complicated by enerocutaneous fistula and prolonged hospit alization (discharged 11/07/19 after abdominal wall collection drained by IR and growing VRE), presenting from home with hypotension. Admitted to the ICU for sepsis. Neuro -Arousable and oriented x2 -Hx of chronic resting tremors Cardiovascular -RIJ placed 01/08/20 -On 5mg levophed, wean as tolerated -Closely monitor hemodynamics -Hx of Afib (on eliquis), CHF, HTN -Holding eliquis pending sx intervention tomorrow -Hold anti-hypertensives in setting of sepsis -Can start IV lopressor if needed for rate control -Cardio following (Dr. Samuel) Pulmonary -CXR: no infiltrates -No acute problems GI -Hx of colon CA s/p hemicolectomy, hernia repair complicated by enterocutaneous fistulas and abd wall abscess (w/VRE) -Fistulas draining malodorous feces, likely source of infection -Start IV abx as per ID -CTAP: interval enlargement of several fluid collections consistent w/abscesses abutting ant aspect of abd wall musculature. Diffuse gastric wall thickening suggestive of edema and acute gastritis. -Surgery consulted (Dr. Alvarado) >>Plan for OR tomorrow >>Clear liquid diet today, NPO tomorrow. Cont to hold eliquis -IR consulted (Dr. 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 Low) -Cont IV linezolid, ertapenem, fluconazole -Urine cx: growing pseudomonas -F/u blood and wound cx Renal -UTI possible source of sepsis -UA: 2+ LE, 67 WBC -Cont IV abx -Monitor on I's & O's -Monitor BMP Heme -Hx of normocytic anemia -Cont to monitor CBC -F/u stool guaic Endo -Hx of hyperthyroidism and DM -ISS and BGM TIDAC -Cont home methimazole 10mg BID DVT ppx -SCDs FEN -IV NS @ 100ml/hr -Monitor lytes and replete prn -Clear liquids today and NPO after midnight Dispo: We will continue to follow the patient. Thank you for this consultative opportunity. Visit type - Emergency Visit Emergency Visit: No - New Patient This patient is new to me today: No - Critical Care Critical Care patient: Yes Total Critical Care Time (in minutes): 45 Critical Care Statement: The care of this patient involved high complexity decision making to prevent further life threatening deterioration of the patient's condition and/or to evaluate & treat vital organ system(s) failure or risk of failure. ATTENDING PHYSICIAN STATEMENT I saw and evaluated the patient. I reviewed the resident's note and discussed the case with the resident. I agree with the resident's findings and plan as documented. SUBJECTIVE: OBJECTIVE: ASSESSMENT AND PLAN:
[2020-01-10] MEDS: FLUTICASONE PROP 0.05% 16 GM NASAL SPRAY NS SCH ×2 (13:58→22:03)
--- NOTE | 2020-01-10 15:23 | PN ---
Progress Note (short form) - Note Progress Note: scheduled for OR in am Vital Signs Period Temp Pulse Resp BP Sys/Ugarte Pulse Ox Last 24 Hr 97.4 F-98.3 F 78-94 13-19 104-127/55-78 95-96 cor-rrr lungs decreased bs at bases abd soft,dressing intact ext no edema CBC, BMP 01/10/20 05:00 01/10/20 05:00 Microbiology 01/08/20 14:00 Blood - Peripheral Venous Blood Culture - Preliminary NO GROWTH OBTAINED AFTER 48 HOURS, INCUBATION TO CONTINUE FOR 3 DAYS. 01/08/20 14:00 Blood - Peripheral Venous Blood Culture - Preliminary NO GROWTH OBTAINED AFTER 48 HOURS, INCUBATION TO CONTINUE FOR 3 DAYS. 01/08/20 15:46 Urine - Urine - Catheterized Urine Culture - Preliminary Presumptive Ps Aeruginosa a/p sepsis secondary to multiple subcutaneous abscesses enterocutaneous fistula s/p mesh repair of hernia with small bowel resection s/p left colectomy colon cancer vre culture positive UTI switch to zosyn/zyvox/diflucan for OR in am Problem List - Problems (1) Sepsis Code(s): A41.9 - SEPSIS, UNSPECIFIED ORGANISM Qualifiers: Sepsis type: sepsis due to unspecified organism Qualified Code(s): A41.9 - Sepsis, unspecified organism (2) Abscess Code(s): L02.91 - CUTANEOUS ABSCESS, UNSPECIFIED (3) S/P repair of ventral hernia Code(s): Z98.890 - OTHER SPECIFIED POSTPROCEDURAL STATES; Z87.19 - PERSONAL HISTORY OF OTHER DISEASES OF THE DIGESTIVE SYSTEM (4) S/P left hemicolectomy Code(s): Z90.49 - ACQUIRED ABSENCE OF OTHER SPECIFIED PARTS OF DIGESTIVE TRACT (5) Colon cancer Code(s): C18.9 - MALIGNANT NEOPLASM OF COLON, UNSPECIFIED (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
[2020-01-10] MEDS ORDERED: PIPERACILLIN/TAZOBACTAM 4.5 GM VIAL IVPB ONE (16:56)
[2020-01-10] MEDS ORDERED: DEXTROSE 5%-WATER 100 ML IVPB ONE (16:57)
[2020-01-10] MEDS: PIPERACILLIN/TAZOB 4.5 GM 4.5 GM in DEXTROSE 5%-WATER 100 ML IVPB SCH (17:20)
[2020-01-10] MEDS ORDERED: POTASSIUM CHLORIDE ORAL LIQUID 20 MEQ/15 ML PO ONE (18:13)
[2020-01-10] MEDS ORDERED: BISACODYL 10 MG SUPP.RECT PR ONE (18:42)
[2020-01-10] MEDS ORDERED: HEPARIN NA (PORCINE) 5,000 UNITS/ML 1ML VIAL SQ SCH (22:00)
[2020-01-10] MEDS: CHLORHEXIDINE GLUCONATE 4% CLEANSER FOR DECOLONIZATION TP SCH (22:03)
[2020-01-10] MEDS: LATANOPROST 0.005% OPHTH SOLN 2.5ML BOTTLE OU SCH (22:04)
[2020-01-11] MEDS ORDERED: DEXTROSE 5%-WATER 100 ML IVPB ONE ×2 (00:17→09:10)
[2020-01-11] MEDS ORDERED: PIPERACILLIN/TAZOBACTAM 4.5 GM VIAL IVPB ONE ×2 (00:17→09:10)
[2020-01-11] MEDS: PIPERACILLIN/TAZOB 4.5 GM 4.5 GM in DEXTROSE 5%-WATER 100 ML IVPB SCH ×2 (01:00→09:26)
--- NOTE | 2020-01-11 06:18 | PN ---
Progress Note, Physician Chief Complaint: for OR fistula exploration pt and family aware - Current Medication List Current Medications: Active Medications Acetaminophen (Tylenol -) 650 mg PO Q6H PRN PRN Reason: PAIN LEVEL 1-5 Albuterol Sulfate (Ventolin 0.083% Nebulizer Soln -) 1 amp NEB Q6H PRN PRN Reason: SHORT OF BREATH/WHEEZING Brimonidine Tartrate (Alphagan 0.2% -) 1 drop OU BID [facility] Last Admin: 01/10/20 22:04 Dose: 1 drop Chlorhexidine Gluconate (Hibiclens For Decolonization -) 1 applic TP HS [facility] Last Admin: 01/10/20 22:03 Dose: 1 applic Fluticasone Propionate (Flonase -) 1 spray NS BID [facility] Last Admin: 01/10/20 22:03 Dose: 1 spray Heparin Sodium (Porcine) (Heparin -) 5,000 unit SQ BID [facility] Norepinephrine Bitartrate 8, (000 mcg/ Dextrose) 500 mls @ 18.75 mls/hr IV TITR [facility]; Protocol Last Titration: 01/11/20 01:00 Dose: 3 mcg/min, 11.25 mls/hr Sodium Chloride (Normal Saline -) 1,000 mls @ 100 mls/hr IV ASDIR [facility] Last Admin: 01/10/20 22:01 Dose: 100 mls/hr Linezolid (Zyvox 600 Mg Premix Bag (Restricted To Id) -) 600 mg in 300 mls @ 300 mls/hr IVPB BID [facility]; Protocol Last Admin: 01/10/20 22:00 Dose: 300 mls/hr Fluconazole (Diflucan 200 Mg/Ns Premixed Ivpb -) 100 mls @ 100 mls/hr IVPB DAILY [facility] Last Admin: 01/10/20 10:10 Dose: 100 mls/hr Piperacillin Sod/Tazobactam (Sod 4.5 gm/ Dextrose) 100 mls @ 200 mls/hr IVPB Q8H-IV [facility]; Protocol Last Admin: 01/11/20 01:00 Dose: 200 mls/hr Insulin Aspart (Novolog Vial Sliding Scale -) 1 vial SQ ACHS [facility]; Protocol Latanoprost (Xalatan 0.005% Eye Drops -) 1 drop OU HS [facility] Last Admin: 01/10/20 22:04 Dose: 1 drop Methimazole (Tapazole -) 10 mg PO BID [facility] Last Admin: 01/10/20 22:00 Dose: 10 mg Mupirocin (Bactroban Ointment (For Decolonization) -) 1 applic NS BID [facility] Stop: 01/13/20 21:59 Last Admin: 01/10/20 22:02 Dose: 1 applic Pantoprazole Sodium (Protonix Iv) 40 mg IVPUSH BID [facility] Last Admin: 01/10/20 22:00 Dose: 40 mg Timolol Maleate (Timoptic 0.5%) 1 drop OU BID [facility] Last Admin: 01/10/20 22:04 Dose: 1 drop - Objective Vital Signs: Vital Signs Temperature 97.7 F 01/11/20 02:00 Pulse Rate 75 01/11/20 04:00 Respiratory Rate 17 01/11/20 04:00 Blood Pressure 118/67 01/11/20 04:00 O2 Sat by Pulse Oximetry (%) 95 01/10/20 21:00 Constitutional: Yes: No Distress, Calm Eyes: Yes: Conjunctiva Clear HENT: Yes: Atraumatic Neck: Yes: Supple Cardiovascular: No: Regular Rate and Rhythm Respiratory: Yes: Diminished Gastrointestinal: Yes: Soft. No: Tenderness Genitourinary: No: Hematuria Musculoskeletal: No: Joint Stiffness, Joint Swelling Extremities: No: Cold, Cool, Cyanosis Edema: No Integumentary: No: Rash, Venous Stasis Changes Neurological: Yes: Alert, Oriented ...Motor Strength: WNL Psychiatric: Yes: Alert, Oriented. No: Agitated, Suicidal Ideation Labs: CBC, BMP 01/10/20 05:00 01/10/20 05:00 INR, PTT INR 2.26 (0.83-1.09) H 01/08/20 14:00 - ....Imaging Other: Report Reviewed Assessment/Plan 84-year-old female history of anemia, A. fib, diabetes, hypertension, lipidemia , colon cancer status post resection and hernia repair complicated by abdominalskin wall abscess and fistula presents with hypotension. r/o sepsis; anemia; no obvious bleeding IVF; IV pressors titrate for hypoTA - BP improving on ATB abd pressors broad spectrum IV ATB per ID eliquis held - in anticipation of OR prognosis guarded d/w pt and family at bedside daughters and sons ID, surgery, cardiology f/u d/w dr Samuel f/u labs and cultures falls DVT aspiration decubs PFX d/w pt and staff t time 35 min
[2020-01-11 07:10] LABS: BASO % 0.3 % (0-2.0); EOS % 3.2 % (0-4.5); HEMATOCRIT 26.8 % (32.4-45.2); HEMOGLOBIN 8.9 GM/dL (10.7-15.3); MCH 29.9 pg (25.7-33.7); MCHC 33.3 g/dl (32.0-36.0); MONO % 12.4 % (3.8-10.2); NEUT % 58.1 % (42.8-82.8); PLATELET COUNT 335 K/MM3 (134-434); RBC 2.98 M/mm3 (3.60-5.2); RDW 17.1 % (11.6-15.6); WHITE BLOOD COUNT 5.4 K/mm3 (4.0-10.0)
[2020-01-11 07:23] LABS: INR 1.35 (0.83-1.09)
[2020-01-11 07:37] LABS: ALBUMIN 1.2 g/dl (3.4-5.0); BILIRUBIN,TOTAL 0.6 mg/dL (0.2-1); BLOOD UREA NITROGEN 4.2 mg/dL (7-18); CALCIUM 7.4 mg/dL (8.5-10.1); CREATININE 0.5 mg/dL (0.55-1.3); MAGNESIUM 1.8 mg/dL (1.8-2.4); PHOSPHOROUS 2.7 mg/dL (2.5-4.9); POTASSIUM 3.5 mmol/L (3.5-5.1); TOT PROT 3.9 g/dl (6.4-8.2)
--- NOTE | 2020-01-11 09:23 | PN ---
Progress Note (short form) - Note Progress Note: Attending Surgeon This is an 84 y/o female well known to me s/p left colectomy for a carcinoma 01/09 and s/p recent incisional hernia repair 10/08/19 complicated by a prolonged hospital stay who had been doing well since discharge h/e recently began draining foul smelling drainage through the wound; she was seen at home by VNS ? and was found to have low BP and was sent to the ED and admitted to the ICU; she was given IVF and pressors and I was asked to see her; she stated she was hungry and was tolerating a diet after initial evaluation and had a benign abdominal exam w/only a draining wound; she continues to have foul smelling drainage through the healed wound; she had a CT scan of the a/p on admission which has been reviewed; the plan today is to take her to the OR to open the wound and drain it; I have d/w her daughter Cintia the risks and benefits of surgery and that there may be a less than satisfactory outcome and that again she may have a prolonged hospital stay and remain intubated after surgery and may eventually require a tracheostomy if she cannot be extubated; if there is an enterocutaneous fistula my plan is to pursue conservative tx, and I do not plan to attempt to resect any bowel and or remove any mesh and subject the patient to a prolonged operation which she will not tolerate; I have discussed this in depth with her daughter Cintia and she understands this and will give informed consent for surgery. John Alvarado MD FACS
[2020-01-11] MEDS: PANTOPRAZOLE SODIUM 40 MG VIAL IVPUSH SCH ×2 (09:26→21:02)
[2020-01-11] MEDS: MUPIROCIN 2% TOPICAL OINTMENT FOR DECOLONIZATION NS SCH ×2 (09:26→21:04)
[2020-01-11] MEDS: METHIMAZOLE 10 MG TABLET (FP) PO SCH ×2 (09:26→21:03)
[2020-01-11] MEDS ORDERED: VASOPRESSIN 20 UNITS/ML VIAL IV ONE (09:52)
--- NOTE | 2020-01-11 09:53 | PN ---
Physical Exam: SUBJECTIVE: Patient seen and examined. No acute events overnight. OBJECTIVE: Vital Signs Period Temp Pulse Resp BP Sys/Ugarte Pulse Ox Last 24 Hr 97.5 F-98.1 F 71-92 12-21 104-130/60-92 95 GENERAL: Drowsy, but arousable, oriented to person and place, in no acute distress. HEAD: Normal with no signs of trauma. EYES: Pupils equal, round and reactive to light, extraocular movements intact, sclera anicteric, conjunctiva clear. No lid lag. EARS, NOSE, THROAT: Ears normal, nares patent, oropharynx clear without exudates. Moist mucous membranes. NECK: Normal range of motion, supple without lymphadenopathy, JVD, or masses. RIJ in place with no erythema. LUNGS: Breath sounds equal, clear to auscultation bilaterally. No wheezes, and no crackles. No accessory muscle use. HEART: Irregular rate and rhythm, normal S1 and S2 without murmur, rub or gallop. ABDOMEN: Soft, diffusely tender, normoactive bowel sounds, no guarding. Two 1cm periumbilical fistulas draining malodorous feces. EXTREMITIES: 2+ pulses, warm, well-perfused, no edema. NEUROLOGICAL: Cranial nerves II through XII grossly intact. Normal speech, gait not observed. SKIN: Warm, dry, normal turgor, no rashes or lesions noted Laboratory Results - last 24 hr CBC, BMP 01/11/20 06:00 01/11/20 06:00 Active Medications Acetaminophen (Tylenol -) 650 mg PO Q6H PRN PRN Reason: PAIN LEVEL 1-5 Albuterol Sulfate (Ventolin 0.083% Nebulizer Soln -) 1 amp NEB Q6H PRN PRN Reason: SHORT OF BREATH/WHEEZING Brimonidine Tartrate (Alphagan 0.2% -) 1 drop OU BID [facility] Last Admin: 01/10/20 22:04 Dose: 1 drop Chlorhexidine Gluconate (Hibiclens For Decolonization -) 1 applic TP HS [facility] Last Admin: 01/10/20 22:03 Dose: 1 applic Fluticasone Propionate (Flonase -) 1 spray NS BID [facility] Last Admin: 01/10/20 22:03 Dose: 1 spray Heparin Sodium (Porcine) (Heparin -) 5,000 unit SQ BID [facility] Norepinephrine Bitartrate 8, (000 mcg/ Dextrose) 500 mls @ 18.75 mls/hr IV TITR [facility]; Protocol Last Titration: 01/11/20 06:59 Dose: 2 mcg/min, 7.5 mls/hr Sodium Chloride (Normal Saline -) 1,000 mls @ 100 mls/hr IV ASDIR [facility] Last Admin: 01/10/20 22:01 Dose: 100 mls/hr Linezolid (Zyvox 600 Mg Premix Bag (Restricted To Id) -) 600 mg in 300 mls @ 300 mls/hr IVPB BID [facility]; Protocol Last Admin: 01/10/20 22:00 Dose: 300 mls/hr Fluconazole (Diflucan 200 Mg/Ns Premixed Ivpb -) 100 mls @ 100 mls/hr IVPB DAILY [facility] Last Admin: 01/10/20 10:10 Dose: 100 mls/hr Piperacillin Sod/Tazobactam (Sod 4.5 gm/ Dextrose) 100 mls @ 200 mls/hr IVPB Q8H-IV [facility]; Protocol Last Admin: 01/11/20 09:26 Dose: 200 mls/hr Insulin Aspart (Novolog Vial Sliding Scale -) 1 vial SQ ACHS [facility]; Protocol Latanoprost (Xalatan 0.005% Eye Drops -) 1 drop OU HS [facility] Last Admin: 01/10/20 22:04 Dose: 1 drop Methimazole (Tapazole -) 10 mg PO BID [facility] Last Admin: 01/11/20 09:26 Dose: 10 mg Mupirocin (Bactroban Ointment (For Decolonization) -) 1 applic NS BID [facility] Stop: 01/13/20 21:59 Last Admin: 01/11/20 09:26 Dose: 1 applic Pantoprazole Sodium (Protonix Iv) 40 mg IVPUSH BID [facility] Last Admin: 01/11/20 09:26 Dose: 40 mg Timolol Maleate (Timoptic 0.5%) 1 drop OU BID [facility] Last Admin: 01/10/20 22:04 Dose: 1 drop ASSESSMENT/PLAN: Patient is an 84 year old female with PMH of anemia (prior transfusions required ), A. fib (on eliquis), CHF (EF55-60%), IDDM, HTN, DJD, hyperthyroidism, obesity , resting tremors, lipidemia, colon cancer s/p hemicolectomy, hernia repair in 10/09 complicated by enerocutaneous fistula and prolonged hospitalization ( discharged 11/07/19 after abdominal wall collection drained by IR and growing VRE), presenting from home with hypotension. Admitted to the ICU for sepsis. Neuro -Arousable and oriented x2 -Hx of chronic resting tremors Cardiovascular -RIJ placed 01/08/20 -On 5mg levophed, wean as tolerated -Closely monitor hemodynamics -Hx of Afib (on eliquis), CHF, HTN -Holding eliquis for sx intervention, restart tomorrow -Hold anti-hypertensives in setting of sepsis -Can start IV lopressor if needed for rate control -Cardio following (Dr. 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 Diffuse gastric wall thickening suggestive of edema and acute gastritis. -Surgery consulted (Dr. Alvarado): OR today for washout -IR consulted (Dr. 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 Low): d/c ertapenem -Cont IV linezolid, fluconazole, and start zosyn -Urine cx: growing pseudomonas -Blood and wound cx pending Renal -UTI possible source of sepsis -UA: 2+ LE, 67 WBC -Cont IV abx -Monitor on I's & O's -Monitor BMP Heme -Hx of normocytic anemia -Cont to monitor CBC -FOBT neg Endo -Hx of hyperthyroidism and DM -ISS and BGM TIDAC -Cont home methimazole 10mg BID DVT ppx -SCDs -Restart eliquis tomorrow FEN -IV NS @ 100ml/hr -Monitor lytes and replete prn -Can start TPN Dispo: We will continue to follow the patient. Thank you for this consultative opportunity. Visit type - Emergency Visit Emergency Visit: No - New Patient This patient is new to me today: No - Critical Care Critical Care patient: Yes Total Critical Care Time (in minutes): 45 Critical Care Statement: The care of this patient involved high complexity decision making to prevent further life threatening deterioration of the patient 's condition and/or to evaluate & treat vital organ system(s) failure or risk of failure. ATTENDING PHYSICIAN STATEMENT I saw and evaluated the patient. I reviewed the resident's note and discussed the case with the resident. I agree with the resident's findings and plan as documented. SUBJECTIVE: OBJECTIVE: ASSESSMENT AND PLAN:
--- NOTE | 2020-01-11 10:10 | PN ---
Progress Note (short form) - Note Progress Note: scheduled for OR today Vital Signs Period Temp Pulse Resp BP Sys/Ugarte Pulse Ox Last 24 Hr 97.5 F-98.1 F 71-92 12-21 104-130/60-92 95 cor-rrr lungs decreased bs at bases abd soft,dressing intact ext no edema CBC, BMP 01/11/20 06:00 01/11/20 06:00 Microbiology 01/08/20 14:00 Blood - Peripheral Venous Blood Culture - Preliminary NO GROWTH OBTAINED AFTER 48 HOURS, INCUBATION TO CONTINUE FOR 3 DAYS. 01/08/20 14:00 Blood - Peripheral Venous Blood Culture - Preliminary NO GROWTH OBTAINED AFTER 48 HOURS, INCUBATION TO CONTINUE FOR 3 DAYS. 01/08/20 15:46 Urine - Urine - Catheterized Urine Culture - Preliminary Presumptive Ps Aeruginosa a/p sepsis secondary to multiple subcutaneous abscesses-for operative drainage today enterocutaneous fistula s/p mesh repair of hernia with small bowel resection s/p left colectomy colon cancer vre culture positive by history UTI -pseudomonas -sensitivity pending continue zosyn/zyvox/diflucan OR today Problem List - Problems (1) Sepsis Code(s): A41.9 - SEPSIS, UNSPECIFIED ORGANISM Qualifiers: Sepsis type: sepsis due to unspecified organism Qualified Code(s): A41.9 - Sepsis, unspecified organism (2) Abscess Code(s): L02.91 - CUTANEOUS ABSCESS, UNSPECIFIED (3) S/P repair of ventral hernia Code(s): Z98.890 - OTHER SPECIFIED POSTPROCEDURAL STATES; Z87.19 - PERSONAL HISTORY OF OTHER DISEASES OF THE DIGESTIVE SYSTEM (4) S/P left hemicolectomy Code(s): Z90.49 - ACQUIRED ABSENCE OF OTHER SPECIFIED PARTS OF DIGESTIVE TRACT (5) Colon cancer Code(s): C18.9 - MALIGNANT NEOPLASM OF COLON, UNSPECIFIED (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
[2020-01-11] MEDS ORDERED: ETOMIDATE 20 MG/10 ML AMPUL IVPUSH ONE (10:36)
[2020-01-11] MEDS ORDERED: PT OWN MED DRAWER 7, Y5N ONE (11:41)
[2020-01-11] MEDS ORDERED: dilTIAZem HCL 125 MG/25 ML - 25 ML VIAL ONE (11:56)
[2020-01-11] MEDS ORDERED: dilTIAZem HCL 50 MG/10 ML - 10 ML VIAL IVPUSH ONE ×2 (11:56→12:42)
[2020-01-11] MEDS: BRIMONIDINE TARTRATE 0.2% OPHTHALMIC 5 ML BOTTLE OU SCH ×2 (13:01→21:03)
[2020-01-11] MEDS: FLUTICASONE PROP 0.05% 16 GM NASAL SPRAY NS SCH ×2 (13:01→21:01)
[2020-01-11] MEDS: INSULIN SLIDING SCALE (NOVOLOG) 1 VIAL SQ SCH ×4 (13:03→21:02)
[2020-01-11] MEDS: LINEZOLID 600 MG PREMIX BAG 600 MG/300 ML BAG IVPB SCH ×2 (13:11→21:11)
[2020-01-11] MEDS ORDERED: DEXTROSE 50%-WATER - 25 GM/50 ML VIAL IVPUSH ONE ×2 (13:13→17:33)
[2020-01-11] MEDS ORDERED: DEXTROSE 50%-WATER 25 GM/50 ML DISP.SYRIN ONE ×2 (13:14→17:49)
--- NOTE | 2020-01-11 13:21 | PN ---
Teaching Attending Note Name of Resident: Kristal Akins ATTENDING PHYSICIAN STATEMENT I saw and evaluated the patient. I reviewed the resident's note and discussed the case with the resident. I agree with the resident's findings and plan as documented. SUBJECTIVE: Patient seen and examined in the ICU. Remains on levophed drip for hemodynamic support. (+) abdominal pain. Going to the OR for Ex-Lap. OBJECTIVE: Intake & Output 01/08/20 01/09/20 01/10/20 01/11/20 23:59 23:59 23:59 23:59 Intake Total 3282 1852.5 4329.1 1960 Output Total 350 5 Balance 2932 1852.5 4329.1 1955 Weight 150 lb 4.8 oz 150 lb 156 lb 160 lb 9.6 oz Last Vital Signs Temp Pulse Resp BP Pulse Ox 97.3 F L 102 H 18 118/76 98 01/11/20 12:45 01/11/20 12:45 01/11/20 12:45 01/11/20 12:45 01/11/20 12:45 Active Medications Acetaminophen (Tylenol -) 650 mg PO Q6H PRN PRN Reason: PAIN LEVEL 1-5 Albuterol Sulfate (Ventolin 0.083% Nebulizer Soln -) 1 amp NEB Q6H PRN PRN Reason: SHORT OF BREATH/WHEEZING Brimonidine Tartrate (Alphagan 0.2% -) 1 drop OU BID [facility] Last Admin: 01/11/20 13:01 Dose: 1 drop Chlorhexidine Gluconate (Hibiclens For Decolonization -) 1 applic TP HS [facility] Last Admin: 01/10/20 22:03 Dose: 1 applic Fluticasone Propionate (Flonase -) 1 spray NS BID [facility] Last Admin: 01/11/20 13:01 Dose: 1 spray Heparin Sodium (Porcine) (Heparin -) 5,000 unit SQ BID [facility] Norepinephrine Bitartrate 8, (000 mcg/ Dextrose) 500 mls @ 18.75 mls/hr IV TITR [facility]; Protocol Last Titration: 01/11/20 06:59 Dose: 2 mcg/min, 7.5 mls/hr Sodium Chloride (Normal Saline -) 1,000 mls @ 100 mls/hr IV ASDIR [facility] Last Admin: 01/10/20 22:01 Dose: 100 mls/hr Linezolid (Zyvox 600 Mg Premix Bag (Restricted To Id) -) 600 mg in 300 mls @ 300 mls/hr IVPB BID [facility]; Protocol Last Admin: 01/11/20 13:11 Dose: 300 mls/hr Fluconazole (Diflucan 200 Mg/Ns Premixed Ivpb -) 100 mls @ 100 mls/hr IVPB DAILY [facility] Last Admin: 01/10/20 10:10 Dose: 100 mls/hr Piperacillin Sod/Tazobactam (Sod 4.5 gm/ Dextrose) 100 mls @ 200 mls/hr IVPB Q8H-IV [facility]; Protocol Last Admin: 01/11/20 09:26 Dose: 200 mls/hr Insulin Aspart (Novolog Vial Sliding Scale -) 1 vial SQ ACHS [facility]; Protocol Last Admin: 01/11/20 13:07 Dose: Not Given Latanoprost (Xalatan 0.005% Eye Drops -) 1 drop OU HS [facility] Last Admin: 01/10/20 22:04 Dose: 1 drop Methimazole (Tapazole -) 10 mg PO BID [facility] Last Admin: 01/11/20 09:26 Dose: 10 mg Mupirocin (Bactroban Ointment (For Decolonization) -) 1 applic NS BID [facility] Stop: 01/13/20 21:59 Last Admin: 01/11/20 09:26 Dose: 1 applic Pantoprazole Sodium (Protonix Iv) 40 mg IVPUSH BID [facility] Last Admin: 01/11/20 09:26 Dose: 40 mg Timolol Maleate (Timoptic 0.5%) 1 drop OU BID [facility] Last Admin: 01/10/20 22:04 Dose: 1 drop Gen: NAD at rest Heart: RRR Lung: decreased breath sounds at the bases Abd: soft, nontender, feculent drainage from fistula Ext: no edema Laboratory Results - last 24 hr 01/10/20 01/10/20 01/11/20 17:24 20:00 06:00 WBC 5.4 RBC 2.98 L Hgb 8.9 L Hct 26.8 L MCV 90.0 MCH 29.9 MCHC 33.3 RDW 17.1 H Plt Count 335 MPV 7.0 L Absolute Neuts (auto) 3.1 Neutrophils % 58.1 D Lymphocytes % 26.0 D Monocytes % 12.4 H Eosinophils % 3.2 Basophils % 0.3 Nucleated RBC % 0 PT with INR INR Sodium Potassium Chloride Carbon Dioxide Anion Gap BUN Creatinine Est GFR (CKD-EPI)AfAm Est GFR (CKD-EPI)NonAf POC Glucometer 100 Random Glucose Calcium Phosphorus Magnesium Total Bilirubin AST ALT Alkaline Phosphatase Total Protein Albumin Stool Occult Blood Negative 01/11/20 01/11/20 01/11/20 06:00 06:00 13:07 WBC RBC Hgb Hct MCV MCH MCHC RDW Plt Count MPV Absolute Neuts (auto) Neutrophils % Lymphocytes % Monocytes % Eosinophils % Basophils % Nucleated RBC % PT with INR 16.00 H INR 1.35 H Sodium 141 Potassium 3.5 Chloride 111 H Carbon Dioxide 24 Anion Gap 5 L BUN 4.2 L Creatinine 0.5 L Est GFR (CKD-EPI)AfAm 103.73 Est GFR (CKD-EPI)NonAf 89.50 POC Glucometer 50 Random Glucose 87 Calcium 7.4 L Phosphorus 2.7 Magnesium 1.8 Total Bilirubin 0.6 AST 12 L ALT 11 L Alkaline Phosphatase 123 H Total Protein 3.9 L Albumin 1.2 L Stool Occult Blood ASSESSMENT AND PLAN: Subcutaneous Abscess Enterocutaneous Fisulta h/o Colon Ca s/p Hemicolectomy/Hernia Repair 10/09 r/o UTI Septic Shock Lactic Acidosis Atrial Fibrillation LV Diastolic Dysfunction HTN DM Hyperthyroidism Anemia - antibiotics per ID - f/u final cultures - IVF - monitor urine output, creatinine - PO when OK with surgery - rate control - hold anticoagulation for pending proceudres - DVT prophylaxis - continue ICU monitoring for hemodynamic instability Dr Paez Critical care time spent in reviewing chart, evaluating patient and formulating plan 35 min
[2020-01-11] MEDS: TIMOLOL 0.5% OPHTHALMIC SOL 5 ML BOTTLE OU SCH ×2 (13:27→21:07)
[2020-01-11] MEDS: FLUCONAZOLE 200 MG/NS 100 ML IVPB SCH (14:24)
--- NOTE | 2020-01-11 15:01 | PN ---
Progress Note, Physician History of Present Illness: Weaned off Levophed gtt, afebrile, rate-controlled afib, s/p abscess drainage and repair of enterocutaneous fistula. - Current Medication List Current Medications: Active Medications Acetaminophen (Tylenol -) 650 mg PO Q6H PRN PRN Reason: PAIN LEVEL 1-5 Albuterol Sulfate (Ventolin 0.083% Nebulizer Soln -) 1 amp NEB Q6H PRN PRN Reason: SHORT OF BREATH/WHEEZING Apixaban (Eliquis -) 5 mg PO BID [facility] Brimonidine Tartrate (Alphagan 0.2% -) 1 drop OU BID [facility] Last Admin: 01/11/20 13:01 Dose: 1 drop Chlorhexidine Gluconate (Hibiclens For Decolonization -) 1 applic TP HS [facility] Last Admin: 01/10/20 22:03 Dose: 1 applic Fluticasone Propionate (Flonase -) 1 spray NS BID [facility] Last Admin: 01/11/20 13:01 Dose: 1 spray Heparin Sodium (Porcine) (Heparin -) 5,000 unit SQ BID [facility] Norepinephrine Bitartrate 8, (000 mcg/ Dextrose) 500 mls @ 18.75 mls/hr IV TITR [facility]; Protocol Last Titration: 01/11/20 06:59 Dose: 2 mcg/min, 7.5 mls/hr Sodium Chloride (Normal Saline -) 1,000 mls @ 100 mls/hr IV ASDIR [facility] Last Admin: 01/10/20 22:01 Dose: 100 mls/hr Linezolid (Zyvox 600 Mg Premix Bag (Restricted To Id) -) 600 mg in 300 mls @ 300 mls/hr IVPB BID [facility]; Protocol Last Admin: 01/11/20 13:11 Dose: 300 mls/hr Fluconazole (Diflucan 200 Mg/Ns Premixed Ivpb -) 100 mls @ 100 mls/hr IVPB DAILY [facility] Last Admin: 01/11/20 14:24 Dose: 100 mls/hr Piperacillin Sod/Tazobactam (Sod 4.5 gm/ Dextrose) 100 mls @ 200 mls/hr IVPB Q8H-IV [facility]; Protocol Last Admin: 01/11/20 09:26 Dose: 200 mls/hr Potassium Chloride 60 meq/Potassium Phosphate 20 mm/Sodium Chloride 60 meq/ Magnesium Sulfate 0.98 gm/Folic Acid 1 mg/ Multivitamins /Minerals 10 ml/ Chromium/Copper/Manganese/Zinc 1 ml/Sterile Water/ Amino Acids/Dextrose 1,000 mls @ 41.667 mls/hr IVPB DAILY@1600 [facility] Insulin Aspart (Novolog Vial Sliding Scale -) 1 vial SQ ACHS [facility]; Protocol Last Admin: 01/11/20 13:07 Dose: Not Given Latanoprost (Xalatan 0.005% Eye Drops -) 1 drop OU HS [facility] Last Admin: 01/10/20 22:04 Dose: 1 drop Methimazole (Tapazole -) 10 mg PO BID [facility] Last Admin: 01/11/20 09:26 Dose: 10 mg Mupirocin (Bactroban Ointment (For Decolonization) -) 1 applic NS BID [facility] Stop: 01/13/20 21:59 Last Admin: 01/11/20 09:26 Dose: 1 applic Pantoprazole Sodium (Protonix Iv) 40 mg IVPUSH BID [facility] Last Admin: 01/11/20 09:26 Dose: 40 mg Timolol Maleate (Timoptic 0.5%) 1 drop OU BID [facility] Last Admin: 01/11/20 13:27 Dose: 1 drop - Objective Vital Signs: Vital Signs Temperature 97.3 F L 01/11/20 12:45 Pulse Rate 102 H 01/11/20 12:45 Respiratory Rate 18 01/11/20 12:45 Blood Pressure 118/76 01/11/20 12:45 O2 Sat by Pulse Oximetry (%) 98 01/11/20 12:45 Constitutional: Yes: No Distress, Calm Neck: Yes: Supple Cardiovascular: Yes: Pulse Irregular Respiratory: Yes: Regular, Diminished Gastrointestinal: Yes: Soft, Hypoactive Bowel Sounds, Other (Colostomy intact, serosanguinous wound drainage) Edema: No Labs: CBC, BMP 01/11/20 06:00 01/11/20 06:00 INR, PTT INR 1.35 (0.83-1.09) H 01/11/20 06:00 - ....Imaging EKG: Report Reviewed (Tele: Af) Problem List - Problems (1) Abscess Code(s): L02.91 - CUTANEOUS ABSCESS, UNSPECIFIED (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 (4) Afib Code(s): I48.91 - UNSPECIFIED ATRIAL FIBRILLATION Qualifiers: Atrial fibrillation type: permanent Qualified Code(s): I48.21 - Permanent atrial fibrillation (5) Anemia Code(s): D64.9 - ANEMIA, UNSPECIFIED (6) Fluid collection at surgical site Code(s): T88.8XXA - OTH COMPLICATIONS OF SURGICAL AND MEDICAL CARE, NEC, INIT Qualifiers: Encounter type: initial encounter Qualified Code(s): T88.8XXA - Other specified complications of surgical and medical care, not elsewhere classified, initial encounter (7) Hyperthyroidism Code(s): E05.90 - THYROTOXICOSIS, UNSP WITHOUT THYROTOXIC CRISIS OR STORM (8) S/P left hemicolectomy Code(s): Z90.49 - ACQUIRED ABSENCE OF OTHER SPECIFIED PARTS OF DIGESTIVE TRACT (9) S/P repair of ventral hernia Code(s): Z98.890 - OTHER SPECIFIED POSTPROCEDURAL STATES; Z87.19 - PERSONAL HISTORY OF OTHER DISEASES OF THE DIGESTIVE SYSTEM (10) Sepsis Code(s): A41.9 - SEPSIS, UNSPECIFIED ORGANISM Qualifiers: Sepsis type: sepsis due to unspecified organism Qualified Code(s): A41.9 - Sepsis, unspecified organism (11) CAD (coronary artery disease) Code(s): I25.10 - ATHSCL HEART DISEASE OF [place] CORONARY ARTERY W/O ANG PCTRS Qualifiers: Coronary Disease-Associated Artery/Lesion type: [place] artery [place] vs. transplanted heart: [place] heart Associated angina: without angina Qualified Code(s): I25.10 - Atherosclerotic heart disease of [place] coronary artery without angina pectoris (12) CVA (cerebral vascular accident) Code(s): I63.9 - CEREBRAL INFARCTION, UNSPECIFIED Qualifiers: CVA mechanism: unspecified Qualified Code(s): I63.9 - Cerebral infarction, unspecified (13) HTN (hypertension) Code(s): I10 - ESSENTIAL (PRIMARY) HYPERTENSION Qualifiers: Hypertension type: essential hypertension Qualified Code(s): I10 - Essential (primary) hypertension (14) Microcytic anemia Code(s): D50.9 - IRON DEFICIENCY ANEMIA, UNSPECIFIED Assessment/Plan 1. Subcutaneous Abscesses, Enterocutaneous Fisulta post I&D, washout and repair 2. Septic shock 3. Post abdominal hernia repair complicated by small bowel resection and mesh placement, h/o IR drain of abscess 4. Persistent atrial Fibrillation [id number] score of 5 5. Diastolic LV dysfunction with clinical class 0 NYHA classification LV failure 6. HTN 7. DM 8. Hyperthyroidism 9. History of cervical carcinoma post resection 10. History of colon carcinoma post hemicolectomy 11. Anemia PLAN: 1. Abx and antifungal per C&S, 2. Resume Eliquis once post-op hemostasis assured 3. Weaned off Levophed for MAP>65 mmHg, resume Lopressor 25 mg BID, Losartan 25 mg QD and Lasix 20 mg QD with hemodynamic stability 4. IV Lopressor as needed for rate-control
[2020-01-11 15:23] LABS: BASO % 0.4 % (0-2.0); EOS % 1.5 % (0-4.5); HEMATOCRIT 26.2 % (32.4-45.2); HEMOGLOBIN 8.5 GM/dL (10.7-15.3); LYMPH % 15.8 % (8-40); MCH 29.8 pg (25.7-33.7); MCHC 32.5 g/dl (32.0-36.0); MEAN CELL VOLUME 91.7 fl (80-96); MEAN PLT VOLUME 7.2 fl (7.5-11.1); MONO % 10.2 % (3.8-10.2); NEUT % 72.1 % (42.8-82.8); PLATELET COUNT 308 K/MM3 (134-434); RBC 2.86 M/mm3 (3.60-5.2); WHITE BLOOD COUNT 6.8 K/mm3 (4.0-10.0)
[2020-01-11] MEDS ORDERED: SODIUM CHLORIDE IVPB SCH (16:00)
[2020-01-11] MEDS ORDERED: [UNRECOGNIZED DRUG - OTHER] IVPB SCH (16:00)
[2020-01-11] MEDS ORDERED: POTASSIUM CHLORIDE IVPB SCH (16:00)
[2020-01-11] MEDS ORDERED: POTASSIUM PHOSPHATE IVPB SCH (16:00)
[2020-01-11] MEDS ORDERED: ACETAMINOPHEN 1000 MG/100 ML VIAL (NON FORMULARY) IVPB PRN (16:59)
--- NOTE | 2020-01-11 17:50 | OP ---
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
[2020-01-11] MEDS: CHLORHEXIDINE GLUCONATE 4% CLEANSER FOR DECOLONIZATION TP SCH (21:02)
[2020-01-11] MEDS: SODIUM CHLORIDE 1,000 ML IV SCH (21:03)
[2020-01-11] MEDS: NOREPINEPHRINE BITARTRATE 8,000 MCG in DEXTROSE 5%-WATER - 492 ML IV SCH (21:04)
[2020-01-11] MEDS: LATANOPROST 0.005% OPHTH SOLN 2.5ML BOTTLE OU SCH (21:11)
[2020-01-11] MEDS ORDERED: MUPIROCIN 2% TOPICAL OINTMENT FOR DECOLONIZATION NS SCH (22:00)
[2020-01-11] MEDS ORDERED: CHLORHEXIDINE GLUCONATE 4% CLEANSER FOR DECOLONIZATION TP SCH (22:00)
[2020-01-11] MEDS ORDERED: HEPARIN NA (PORCINE) 5,000 UNITS/ML 1ML VIAL SQ SCH (22:00)
[2020-01-11] MEDS ORDERED: MORPHINE SULFATE 2 MG/ML VIAL IVPUSH ONE (22:57)
[2020-01-12] MEDS ORDERED: PIPERACILLIN/TAZOBACTAM 4.5 GM VIAL IVPB ONE ×3 (01:11→17:45)
[2020-01-12] MEDS ORDERED: DEXTROSE 5%-WATER 100 ML IVPB ONE ×3 (01:11→17:45)
[2020-01-12] MEDS: PIPERACILLIN/TAZOB 4.5 GM 4.5 GM in DEXTROSE 5%-WATER 100 ML IVPB SCH ×4 (01:14→17:54)
[2020-01-12 06:46] LABS: BASO % 0.3 % (0-2.0); EOS % 4.5 % (0-4.5); HEMATOCRIT 24.9 % (32.4-45.2); HEMOGLOBIN 8.1 GM/dL (10.7-15.3); LYMPH % 22.3 % (8-40); MCH 29.9 pg (25.7-33.7); MCHC 32.6 g/dl (32.0-36.0); MEAN CELL VOLUME 91.5 fl (80-96); MEAN PLT VOLUME 7.1 fl (7.5-11.1); MONO % 12.3 % (3.8-10.2); NEUT % 60.6 % (42.8-82.8); PLATELET COUNT 291 K/MM3 (134-434); RBC 2.73 M/mm3 (3.60-5.2); RDW 17.5 % (11.6-15.6); WHITE BLOOD COUNT 5.5 K/mm3 (4.0-10.0)
[2020-01-12] MEDS: INSULIN SLIDING SCALE (NOVOLOG) 1 VIAL SQ SCH ×4 (07:00→22:41)
[2020-01-12] MEDS ORDERED: ACETAMINOPHEN 325 MG TABLET (FP) PO PRN (07:43)
[2020-01-12] MEDS ORDERED: ALBUTEROL SO4 0.083% IH SOL 2.5 MG/3 ML VIAL.NEB. NEB PRN (07:43)
[2020-01-12] MEDS ORDERED: HYDROmorphone HCl 2 MG/ML VIAL IVPUSH PRN (07:43)
[2020-01-12 07:50] LABS: ALBUMIN 1.1 g/dl (3.4-5.0); BILIRUBIN,TOTAL 0.3 mg/dL (0.2-1); BLOOD UREA NITROGEN 5.9 mg/dL (7-18); CALCIUM 7.5 mg/dL (8.5-10.1); CREATININE 0.4 mg/dL (0.55-1.3); MAGNESIUM 1.9 mg/dL (1.8-2.4); PHOSPHOROUS 2.9 mg/dL (2.5-4.9); POTASSIUM 3.7 mmol/L (3.5-5.1); TOT PROT 3.5 g/dl (6.4-8.2)
[2020-01-12] MEDS: NOREPINEPHRINE BITARTRATE 8,000 MCG in DEXTROSE 5%-WATER - 492 ML IV SCH (08:00)
--- NOTE | 2020-01-12 08:10 | PN ---
Progress Note (short form) - Note Progress Note: UBJECTIVE: Patient seen and examined in the ICU. -s/p Ex lap with Dr Alvarado yesterday -off levophed, improved hemodynamics -on tpn, less stool output OBJECTIVE: Vital Signs Temp 98.6 F 01/12/20 02:00 Pulse 76 01/12/20 06:00 Resp 12 01/12/20 06:00 BP 120/69 01/12/20 06:00 Pulse Ox 95 01/11/20 20:46 Intake & Output 01/11/20 01/11/20 01/12/20 11:59 23:59 11:59 Intake Total 1960 1200 1666 Output Total 5 100 Balance 1954 1200 1566 Weight 72.847 kg 76.1 kg Intake: IV 1560 1200 820 Levophed - 8,000 Mcg In 160 D5w - 492 ml @ 5 MCG/MIN 18.75 mls/hr IV TITR [facility] Rx#:[id number] Normal Saline - 1,000 ml 1200 1200 820 @ 100 mls/hr IV ASDIR [facility] Rx#:[id number] IVPB 400 400 Oral 0 TPN/PPN 446 Output: Colostomy 100 Estimated Blood Loss 5 Other: Voiding Method Diaper Incontinent # Unmeasured Voids Void 4 2 Bowel Movement Yes No Yes # Bowel Movements 2 1 1 Weight Measurement Method [facility] Active Medications Acetaminophen (Ofirmev Injection -) 1,000 mg IVPB Q6H PRN PRN Reason: PAIN LEVEL 6-10 Stop: 01/12/20 16:59 Acetaminophen (Tylenol -) 650 mg PO Q6H PRN PRN Reason: PAIN LEVEL 1-5 Albuterol Sulfate (Ventolin 0.083% Nebulizer Soln -) 1 amp NEB Q6H PRN PRN Reason: SHORT OF BREATH/WHEEZING Apixaban (Eliquis -) 5 mg PO BID [facility] Brimonidine Tartrate (Alphagan 0.2% -) 1 drop OU BID [facility] Chlorhexidine Gluconate (Hibiclens For Decolonization -) 1 applic TP HS [facility] Fluticasone Propionate (Flonase -) 1 spray NS BID [facility] Hydromorphone HCl (Dilaudid Vial -) 0.5 mg IVPUSH Q3H PRN PRN Reason: PAIN LEVEL 1-5 Potassium Chloride 60 meq/Potassium Phosphate 20 mm/Sodium Chloride 60 meq/ Magnesium Sulfate 0.98 gm/Folic Acid 1 mg/ Multivitamins /Minerals 10 ml/ Chromium/Copper/Manganese/Zinc 1 ml/Sterile Water/ Amino Acids/Dextrose 1,000 mls @ 41.667 mls/hr IVPB DAILY@1600 [facility] Last Admin: 01/11/20 17:48 Dose: 41.667 mls/hr Fluconazole (Diflucan 200 Mg/Ns Premixed Ivpb -) 100 mls @ 100 mls/hr IVPB DAILY [facility] Linezolid (Zyvox 600 Mg Premix Bag (Restricted To Id) -) 600 mg in 300 mls @ 300 mls/hr IVPB BID [facility]; Protocol Norepinephrine Bitartrate 8, (000 mcg/ Dextrose) 500 mls @ 18.75 mls/hr IV TITR [facility]; Protocol Sodium Chloride (Normal Saline -) 1,000 mls @ 100 mls/hr IV ASDIR [facility] Piperacillin Sod/Tazobactam (Sod 4.5 gm/ Dextrose) 100 mls @ 200 mls/hr IVPB Q8H-IV [facility]; Protocol Insulin Aspart (Novolog Vial Sliding Scale -) 1 vial SQ ACHS [facility]; Protocol Latanoprost (Xalatan 0.005% Eye Drops -) 1 drop OU HS [facility] Methimazole (Tapazole -) 10 mg PO BID [facility] Mupirocin (Bactroban Ointment (For Decolonization) -) 1 applic NS BID [facility] Stop: 01/13/20 21:59 Pantoprazole Sodium (Protonix Iv) 40 mg IVPUSH BID [facility] Timolol Maleate (Timoptic 0.5%) 1 drop OU BID [facility] Gen: NAD at rest Heart: RRR Lung: decreased breath sounds at the bases Abd: soft, nontender, feculent drainage from fistula Ext: no edema CBC, BMP 01/12/20 05:45 01/12/20 05:45 Microbiology 01/11/20 11:00 Body Fluid - Other Gram Stain - Final 01/11/20 11:00 Body Fluid - Other Gram Stain - Final 01/10/20 20:00 Stool Clostridioides difficile Antigen - Final 01/10/20 20:00 Stool Clostridioides difficile Toxin Assay - Final 01/08/20 14:00 Blood - Peripheral Venous Blood Culture - Preliminary NO GROWTH OBTAINED AFTER 72 HOURS, INCUBATION TO CONTINUE FOR 2 DAYS. 01/08/20 14:00 Blood - Peripheral Venous Blood Culture - Preliminary NO GROWTH OBTAINED AFTER 72 HOURS, INCUBATION TO CONTINUE FOR 2 DAYS. 01/08/20 15:46 Urine - Urine - Catheterized Urine Culture - Final Pseudomonas Aeruginosa ASSESSMENT AND PLAN: Subcutaneous Abscess Enterocutaneous Fisulta h/o Colon Ca s/p Hemicolectomy/Hernia Repair 10/09 r/o UTI Septic Shock Lactic Acidosis Atrial Fibrillation LV Diastolic Dysfunction HTN DM Hyperthyroidism Anemia POD #1 ex trino/Jenny - antibiotics per ID - f/u final cultures - IVF/TPN - PO when OK with surgery, on TPN now - rate control - restarted on eliquis - continue ICU monitoring today, likely floor on Tue or tuesday Ellis WALLACEP [id number]
[2020-01-12] MEDS: PANTOPRAZOLE SODIUM 40 MG VIAL IVPUSH SCH ×2 (09:13→22:32)
--- NOTE | 2020-01-12 09:30 | PN ---
Progress Note (short form) - Note Progress Note: s/p drainage of collections- enterocutaneous fistula noted pod #1 wants to eat Vital Signs Period Temp Pulse Resp BP Sys/Ugarte Pulse Ox Last 24 Hr 97.2 F-98.6 F 74-140 12-21 84-137/54-94 95-98 cor-rrr lungs clear abd soft,no colostomy ext no edema CBC, BMP 01/12/20 05:45 01/12/20 05:45 Microbiology 01/11/20 11:00 Body Fluid - Other Gram Stain - Final 01/11/20 11:00 Body Fluid - Other Gram Stain - Final 01/10/20 20:00 Stool Clostridioides difficile Antigen - Final 01/10/20 20:00 Stool Clostridioides difficile Toxin Assay - Final 01/08/20 14:00 Blood - Peripheral Venous Blood Culture - Preliminary NO GROWTH OBTAINED AFTER 72 HOURS, INCUBATION TO CONTINUE FOR 2 DAYS. 01/08/20 14:00 Blood - Peripheral Venous Blood Culture - Preliminary NO GROWTH OBTAINED AFTER 72 HOURS, INCUBATION TO CONTINUE FOR 2 DAYS. 01/08/20 15:46 Urine - Urine - Catheterized Urine Culture - Final Pseudomonas Aeruginosa a/p sepsis secondary to multiple subcutaneous abscesses-for operative drainage today enterocutaneous fistula s/p mesh repair of hernia with small bowel resection s/p left colectomy colon cancer vre culture positive by history UTI -pseudomonas continue zosyn/zyvox/diflucan operative cultures pending Problem List - Problems (1) Sepsis Code(s): A41.9 - SEPSIS, UNSPECIFIED ORGANISM Qualifiers: Sepsis type: sepsis due to unspecified organism Qualified Code(s): A41.9 - Sepsis, unspecified organism (2) Abscess Code(s): L02.91 - CUTANEOUS ABSCESS, UNSPECIFIED (3) S/P repair of ventral hernia Code(s): Z98.890 - OTHER SPECIFIED POSTPROCEDURAL STATES; Z87.19 - PERSONAL HISTORY OF OTHER DISEASES OF THE DIGESTIVE SYSTEM (4) S/P left hemicolectomy Code(s): Z90.49 - ACQUIRED ABSENCE OF OTHER SPECIFIED PARTS OF DIGESTIVE TRACT (5) Colon cancer Code(s): C18.9 - MALIGNANT NEOPLASM OF COLON, UNSPECIFIED (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
[2020-01-12] MEDS: SODIUM CHLORIDE 1,000 ML IV SCH (10:00)
--- NOTE | 2020-01-12 10:05 | PN ---
Progress Note, Physician Chief Complaint: s/p exploratory lap for fistula draiange in ICU awake alert NAD BP stable off pressors; daughter at bedside; said her mom is hungry wants to eat; had some R big toe pain yesterday PVR no occlusion - pain improved now, foot warm and bp STABLE - TRANSITORY ISCHEMIA? - Current Medication List Current Medications: Active Medications Acetaminophen (Ofirmev Injection -) 1,000 mg IVPB Q6H PRN PRN Reason: PAIN LEVEL 6-10 Stop: 01/12/20 16:59 Acetaminophen (Tylenol -) 650 mg PO Q6H PRN PRN Reason: PAIN LEVEL 1-5 Albuterol Sulfate (Ventolin 0.083% Nebulizer Soln -) 1 amp NEB Q6H PRN PRN Reason: SHORT OF BREATH/WHEEZING Apixaban (Eliquis -) 5 mg PO BID [facility] Brimonidine Tartrate (Alphagan 0.2% -) 1 drop OU BID [facility] Chlorhexidine Gluconate (Hibiclens For Decolonization -) 1 applic TP HS [facility] Fluticasone Propionate (Flonase -) 1 spray NS BID [facility] Hydromorphone HCl (Dilaudid Vial -) 0.5 mg IVPUSH Q3H PRN PRN Reason: PAIN LEVEL 1-5 Potassium Chloride 60 meq/Potassium Phosphate 20 mm/Sodium Chloride 60 meq/ Magnesium Sulfate 0.98 gm/Folic Acid 1 mg/ Multivitamins /Minerals 10 ml/ Chromium/Copper/Manganese/Zinc 1 ml/Sterile Water/ Amino Acids/Dextrose 1,000 mls @ 41.667 mls/hr IVPB DAILY@1600 [facility] Last Admin: 01/11/20 17:48 Dose: 41.667 mls/hr Fluconazole (Diflucan 200 Mg/Ns Premixed Ivpb -) 100 mls @ 100 mls/hr IVPB DAILY [facility] Linezolid (Zyvox 600 Mg Premix Bag (Restricted To Id) -) 600 mg in 300 mls @ 300 mls/hr IVPB BID [facility]; Protocol Norepinephrine Bitartrate 8, (000 mcg/ Dextrose) 500 mls @ 18.75 mls/hr IV TITR [facility]; Protocol Sodium Chloride (Normal Saline -) 1,000 mls @ 100 mls/hr IV ASDIR [facility] Piperacillin Sod/Tazobactam (Sod 4.5 gm/ Dextrose) 100 mls @ 200 mls/hr IVPB Q8H-IV [facility]; Protocol Last Admin: 01/12/20 09:14 Dose: 200 mls/hr Insulin Aspart (Novolog Vial Sliding Scale -) 1 vial SQ ACHS [facility]; Protocol Latanoprost (Xalatan 0.005% Eye Drops -) 1 drop OU HS [facility] Methimazole (Tapazole -) 10 mg PO BID [facility] Mupirocin (Bactroban Ointment (For Decolonization) -) 1 applic NS BID [facility] Stop: 01/13/20 21:59 Pantoprazole Sodium (Protonix Iv) 40 mg IVPUSH BID [facility] Last Admin: 01/12/20 09:13 Dose: 40 mg Timolol Maleate (Timoptic 0.5%) 1 drop OU BID [facility] - Objective Vital Signs: Vital Signs Temperature 98.6 F 01/12/20 02:00 Pulse Rate 92 H 01/12/20 08:00 Respiratory Rate 12 01/12/20 06:00 Blood Pressure 112/76 01/12/20 08:00 O2 Sat by Pulse Oximetry (%) 95 01/11/20 20:46 Constitutional: Yes: No Distress, Calm Eyes: Yes: Conjunctiva Clear HENT: Yes: Atraumatic Neck: Yes: Supple Cardiovascular: No: Regular Rate and Rhythm Respiratory: Yes: CTA Bilaterally Gastrointestinal: Yes: Soft. No: Tenderness Genitourinary: No: Hematuria Musculoskeletal: No: Joint Stiffness, Joint Swelling Extremities: No: Cold, Cool, Cyanosis Edema: No Integumentary: No: Rash, Venous Stasis Changes Neurological: Yes: Alert ...Motor Strength: WNL Psychiatric: Yes: Alert. No: Agitated, Suicidal Ideation Labs: CBC, BMP 01/12/20 05:45 01/12/20 05:45 INR, PTT INR 1.35 (0.83-1.09) H 01/11/20 06:00 - ....Imaging Other: Report Reviewed Assessment/Plan 84-year-old female history of anemia, A. fib, diabetes, hypertension, lipidemia , colon cancer status post resection and hernia repair complicated by abdominal skin wall abscess and fistula admitted with hypotension, sepsis; anemia; no obvious bleeding s/p abdominal exploration surgery; BP improving on ATB; off pressors broad spectrum IV ATB per ID R foot / toe pain: vascular sx eval; eliquis restarted prognosis guarded d/w pt and family at bedside ID, surgery, cardiology f/u f/u labs and cultures falls DVT aspiration decubs PFX d/w pt and staff t time 35 min
[2020-01-12] MEDS: LINEZOLID 600 MG PREMIX BAG 600 MG/300 ML BAG IVPB SCH ×2 (10:10→22:37)
[2020-01-12] MEDS: FLUCONAZOLE 200 MG/NS 100 ML IVPB SCH (10:11)
--- NOTE | 2020-01-12 10:29 | PN ---
Progress Note, Physician Chief Complaint: Events noted Not in distress History of Present Illness: Patient was seen and examined. Awake and alert. Chart was reviewed Remains in ICU. - Current Medication List Current Medications: Active Medications Acetaminophen (Ofirmev Injection -) 1,000 mg IVPB Q6H PRN PRN Reason: PAIN LEVEL 6-10 Stop: 01/12/20 16:59 Acetaminophen (Tylenol -) 650 mg PO Q6H PRN PRN Reason: PAIN LEVEL 1-5 Albuterol Sulfate (Ventolin 0.083% Nebulizer Soln -) 1 amp NEB Q6H PRN PRN Reason: SHORT OF BREATH/WHEEZING Apixaban (Eliquis -) 5 mg PO BID [facility] Brimonidine Tartrate (Alphagan 0.2% -) 1 drop OU BID [facility] Chlorhexidine Gluconate (Hibiclens For Decolonization -) 1 applic TP HS [facility] Fluticasone Propionate (Flonase -) 1 spray NS BID [facility] Hydromorphone HCl (Dilaudid Vial -) 0.5 mg IVPUSH Q3H PRN PRN Reason: PAIN LEVEL 1-5 Potassium Chloride 60 meq/Potassium Phosphate 20 mm/Sodium Chloride 60 meq/ Magnesium Sulfate 0.98 gm/Folic Acid 1 mg/ Multivitamins /Minerals 10 ml/ Chromium/Copper/Manganese/Zinc 1 ml/Sterile Water/ Amino Acids/Dextrose 1,000 mls @ 41.667 mls/hr IVPB DAILY@1600 [facility] Last Admin: 01/11/20 17:48 Dose: 41.667 mls/hr Fluconazole (Diflucan 200 Mg/Ns Premixed Ivpb -) 100 mls @ 100 mls/hr IVPB DAILY [facility] Last Admin: 01/12/20 10:11 Dose: 100 mls/hr Linezolid (Zyvox 600 Mg Premix Bag (Restricted To Id) -) 600 mg in 300 mls @ 300 mls/hr IVPB BID [facility]; Protocol Last Admin: 01/12/20 10:10 Dose: 300 mls/hr Norepinephrine Bitartrate 8, (000 mcg/ Dextrose) 500 mls @ 18.75 mls/hr IV TITR [facility]; Protocol Last Admin: 01/12/20 08:00 Dose: Not Given Sodium Chloride (Normal Saline -) 1,000 mls @ 100 mls/hr IV [facility]IR [facility] Last Admin: 01/12/20 10:00 Dose: 100 mls/hr Piperacillin Sod/Tazobactam (Sod 4.5 gm/ Dextrose) 100 mls @ 200 mls/hr IVPB Q8H-IV [facility]; Protocol Last Admin: 01/12/20 09:14 Dose: 200 mls/hr Insulin Aspart (Novolog Vial Sliding Scale -) 1 vial SQ ACHS [facility]; Protocol Latanoprost (Xalatan 0.005% Eye Drops -) 1 drop OU HS [facility] Lidocaine (Lidoderm Patch -) 1 patch TP DAILY [facility] Methimazole (Tapazole -) 10 mg PO BID [facility] Miscellaneous (Lidoderm Patch Removal) 1 each MC DAILY@2200 [facility] Mupirocin (Bactroban Ointment (For Decolonization) -) 1 applic NS BID [facility] Stop: 01/13/20 21:59 Pantoprazole Sodium (Protonix Iv) 40 mg IVPUSH BID [facility] Last Admin: 01/12/20 09:13 Dose: 40 mg Timolol Maleate (Timoptic 0.5%) 1 drop OU BID [facility] - Objective Vital Signs: Vital Signs Temperature 98.6 F 01/12/20 02:00 Pulse Rate 92 H 01/12/20 08:00 Respiratory Rate 12 01/12/20 06:00 Blood Pressure 112/76 01/12/20 08:00 O2 Sat by Pulse Oximetry (%) 95 01/11/20 20:46 Neck: Yes: Supple Cardiovascular: Yes: Pulse Irregular, S1, S2 Respiratory: Yes: Diminished Gastrointestinal: Yes: Other (Post op, colostomy intact) Edema: No Labs: CBC, BMP 01/12/20 05:45 01/12/20 05:45 INR, PTT INR 1.35 (0.83-1.09) H 01/11/20 06:00 Problem List - Problems (1) Abdominal fistula Code(s): K63.2 - FISTULA OF INTESTINE (2) Abscess Code(s): L02.91 - CUTANEOUS ABSCESS, UNSPECIFIED (3) Colon cancer Code(s): C18.9 - MALIGNANT NEOPLASM OF COLON, UNSPECIFIED (4) Diabetes mellitus Code(s): E11.9 - TYPE 2 DIABETES MELLITUS WITHOUT COMPLICATIONS (5) 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 - FISTULA OF INTESTINE (6) S/P left colectomy Code(s): Z90.49 - ACQUIRED ABSENCE OF OTHER SPECIFIED PARTS OF DIGESTIVE TRACT (7) Sepsis Code(s): A41.9 - SEPSIS, UNSPECIFIED ORGANISM (8) Subcutaneous abscess Code(s): L02.91 - CUTANEOUS ABSCESS, UNSPECIFIED (9) Afib Code(s): I48.91 - UNSPECIFIED ATRIAL FIBRILLATION Qualifiers: Atrial fibrillation type: permanent Qualified Code(s): I48.21 - Permanent atrial fibrillation (10) Hyperthyroidism Code(s): E05.90 - THYROTOXICOSIS, UNSP WITHOUT THYROTOXIC CRISIS OR STORM (11) S/P left hemicolectomy Code(s): Z90.49 - ACQUIRED ABSENCE OF OTHER SPECIFIED PARTS OF DIGESTIVE TRACT (12) S/P repair of ventral hernia Code(s): Z98.890 - OTHER SPECIFIED POSTPROCEDURAL STATES; Z87.19 - PERSONAL HISTORY OF OTHER DISEASES OF THE DIGESTIVE SYSTEM (13) CAD (coronary artery disease) Code(s): I25.10 - ATHSCL HEART DISEASE OF [place] CORONARY ARTERY W/O ANG PCTRS Qualifiers: Coronary Disease-Associated Artery/Lesion type: [place] artery [place] vs. transplanted heart: [place] heart Associated angina: without angina Qualified Code(s): I25.10 - Atherosclerotic heart disease of [place] coronary artery without angina pectoris (14) CVA (cerebral vascular accident) Code(s): I63.9 - CEREBRAL INFARCTION, UNSPECIFIED Qualifiers: CVA mechanism: unspecified Qualified Code(s): I63.9 - Cerebral infarction, unspecified (15) HTN (hypertension) Code(s): I10 - ESSENTIAL (PRIMARY) HYPERTENSION Qualifiers: Hypertension type: essential hypertension Qualified Code(s): I10 - Essential (primary) hypertension (16) Parkinson disease Code(s): G20 - PARKINSON'S DISEASE Assessment/Plan 1. Subcutaneous Abscesses, Enterocutaneous Fistula post I&D, washout and repair 2. Septic shock 3. Post abdominal hernia repair complicated by small bowel resection and mesh placement, h/o IR drain of abscess 4. Persistent atrial Fibrillation [id number] score of 5 5. Diastolic LV dysfunction with clinical class 0 NYHA classification LV failure 6. HTN 7. DM 8. Hyperthyroidism 9. History of cervical carcinoma post resection 10. History of colon carcinoma post hemicolectomy 11. Anemia PLAN: 1. Antibiotics and antifungal per ID 2. Resume Eliquis once post-op hemostasis assured 3. Weaned off Levophed for MAP>65 mmHg. Resume Lopressor 25 mg BID, Losartan 25 mg QD and Lasix 20 mg QD when hemodynamically stable 4. IV Lopressor as needed for rate-control 5. Post op management Johann Cowan MD
[2020-01-12] MEDS: MUPIROCIN 2% TOPICAL OINTMENT FOR DECOLONIZATION NS SCH ×2 (10:37→22:32)
[2020-01-12] MEDS: FLUTICASONE PROP 0.05% 16 GM NASAL SPRAY NS SCH ×2 (10:38→22:38)
[2020-01-12] MEDS: TIMOLOL 0.5% OPHTHALMIC SOL 5 ML BOTTLE OU SCH ×2 (10:39→22:39)
[2020-01-12] MEDS: BRIMONIDINE TARTRATE 0.2% OPHTHALMIC 5 ML BOTTLE OU SCH ×2 (10:39→22:37)
[2020-01-12] MEDS: APIXABAN 5 MG TABLET PO SCH ×2 (10:40→22:33)
[2020-01-12] MEDS: METHIMAZOLE 10 MG TABLET (FP) PO SCH ×2 (10:40→22:33)
[2020-01-12] MEDS: LIDOCAINE 5% TOPICAL PATCH TP SCH (11:00)
--- NOTE | 2020-01-12 12:14 | PN ---
Progress Note (short form) - Note Progress Note: Attending Surgeon POD#1 Wants to eat; no c/o o/w; started on TPN VSS AF Incision c/d/i and appliance over fistula w/minimal drainage; o/w benign abdominal exam WBC normal IMP: as above PLAN: Ideally she shouild be kept NPO and be given TPN h/e she wants food; will allow clear liquids given fistula appears to be low output h/e it may not close even w/ideal tx. given presence of foreign body (mesh ); may attempt fitulogram nexxt week to better quualify location but doubt exploration for correcttion of this possible given her overall status. John Alvarado MD FACS
--- NOTE | 2020-01-12 12:26 | PN ---
Progress Note (short form) - Note Progress Note: 84F s/p abdominal wound exploration in setting of EC fistula. No new c/o. On TPN. Vital Signs Temp 98.2 F 01/12/20 10:00 Pulse 78 01/12/20 10:00 Resp 14 01/12/20 10:00 BP 116/66 01/12/20 10:00 Pulse Ox 95 01/12/20 10:00 Intake & Output 01/11/20 01/12/20 01/12/20 23:59 11:59 23:59 Intake Total 1200 1666 Output Total 100 Balance 1200 1566 Weight 167 lb 12.348 oz Intake: IV 1200 820 Normal Saline - 1,000 ml 1200 820 @ 100 mls/hr IV ASDIR SRIKANTH Rx#:[id number] IVPB 400 TPN/PPN 446 Output: Colostomy 100 Other: Voiding Method Incontinent Incontinent # Unmeasured Voids Void 2 Bowel Movement No Yes # Bowel Movements 1 1 Weight Measurement Method Built in [facility] CBC, BMP 01/12/20 05:45 01/12/20 05:45 - s/p GETA. No anesthesia complications.
[2020-01-12] MEDS: [UNRECOGNIZED DRUG - OTHER] IVPB SCH (17:00)
[2020-01-12] MEDS: POTASSIUM CHLORIDE IVPB SCH (17:00)
[2020-01-12] MEDS: POTASSIUM PHOSPHATE IVPB SCH (17:00)
[2020-01-12] MEDS: SODIUM CHLORIDE IVPB SCH (17:00)
[2020-01-12] MEDS: CHLORHEXIDINE GLUCONATE 4% CLEANSER FOR DECOLONIZATION TP SCH (22:33)
[2020-01-12] MEDS: LIDOCAINE PATCH REMOVAL MC SCH (22:37)
[2020-01-12] MEDS: LATANOPROST 0.005% OPHTH SOLN 2.5ML BOTTLE OU SCH (22:39)
[2020-01-13] MEDS: PIPERACILLIN/TAZOB 4.5 GM 4.5 GM in DEXTROSE 5%-WATER 100 ML IVPB SCH ×3 (02:30→17:55)
[2020-01-13] MEDS ORDERED: DEXTROSE 5%-WATER 100 ML IVPB ONE ×3 (04:19→17:26)
[2020-01-13] MEDS ORDERED: PIPERACILLIN/TAZOBACTAM 4.5 GM VIAL IVPB ONE ×3 (04:19→17:26)
[2020-01-13] MEDS: INSULIN SLIDING SCALE (NOVOLOG) 1 VIAL SQ SCH ×4 (06:29→21:26)
[2020-01-13] MEDS: SODIUM CHLORIDE 1,000 ML IV SCH ×2 (06:31→09:59)
[2020-01-13 06:33] LABS: BASO % 0.6 % (0-2.0); EOS % 4.3 % (0-4.5); HEMATOCRIT 24.4 % (32.4-45.2); LYMPH % 26.4 % (8-40); MEAN PLT VOLUME 7.1 fl (7.5-11.1); MONO % 12.4 % (3.8-10.2); NEUT % 56.3 % (42.8-82.8); PLATELET COUNT 291 K/MM3 (134-434); RBC 2.68 M/mm3 (3.60-5.2); RDW 17.2 % (11.6-15.6); WHITE BLOOD COUNT 4.8 K/mm3 (4.0-10.0)
[2020-01-13 06:43] LABS: ALBUMIN 1.1 g/dl (3.4-5.0); BILIRUBIN,TOTAL 0.2 mg/dL (0.2-1); BLOOD UREA NITROGEN 9.8 mg/dL (7-18); CALCIUM 7.4 mg/dL (8.5-10.1); CREATININE 0.5 mg/dL (0.55-1.3); POTASSIUM 3.9 mmol/L (3.5-5.1); TOT PROT 3.7 g/dl (6.4-8.2)
--- NOTE | 2020-01-13 06:45 | PN ---
Progress Note, Physician Chief Complaint: alert awake NAD VSS BP stable no feet pain wants to eat; per surgery daughter Yogi at bedside - Current Medication List Current Medications: Active Medications Acetaminophen (Tylenol -) 650 mg PO Q6H PRN PRN Reason: PAIN LEVEL 1-5 Albuterol Sulfate (Ventolin 0.083% Nebulizer Soln -) 1 amp NEB Q6H PRN PRN Reason: SHORT OF BREATH/WHEEZING Apixaban (Eliquis -) 5 mg PO BID [facility] Last Admin: 01/12/20 22:33 Dose: 5 mg Brimonidine Tartrate (Alphagan 0.2% -) 1 drop OU BID [facility] Last Admin: 01/12/20 22:37 Dose: 1 drop Chlorhexidine Gluconate (Hibiclens For Decolonization -) 1 applic TP HS [facility] Last Admin: 01/12/20 22:33 Dose: 1 applic Fluticasone Propionate (Flonase -) 1 spray NS BID [facility] Last Admin: 01/12/20 22:38 Dose: Not Given Hydromorphone HCl (Dilaudid Vial -) 0.5 mg IVPUSH Q3H PRN PRN Reason: PAIN LEVEL 1-5 Fluconazole (Diflucan 200 Mg/Ns Premixed Ivpb -) 100 mls @ 100 mls/hr IVPB DAILY [facility] Last Admin: 01/12/20 10:11 Dose: 100 mls/hr Linezolid (Zyvox 600 Mg Premix Bag (Restricted To Id) -) 600 mg in 300 mls @ 300 mls/hr IVPB BID [facility]; Protocol Last Admin: 01/12/20 22:37 Dose: 300 mls/hr Norepinephrine Bitartrate 8, (000 mcg/ Dextrose) 500 mls @ 18.75 mls/hr IV TITR [facility]; Protocol Last Admin: 01/12/20 08:00 Dose: Not Given Sodium Chloride (Normal Saline -) 1,000 mls @ 100 mls/hr IV ASDIR [facility] Last Admin: 01/13/20 06:31 Dose: 100 mls/hr Piperacillin Sod/Tazobactam (Sod 4.5 gm/ Dextrose) 100 mls @ 200 mls/hr IVPB Q8H-IV [facility]; Protocol Last Admin: 01/13/20 02:30 Dose: 200 mls/hr Potassium Chloride 60 meq/Potassium Phosphate 20 mm/Sodium Chloride 60 meq/ Magnesium Sulfate 0.98 gm/Folic Acid 1 mg/ Multivitamins /Minerals 10 ml/ Sterile Water / Amino Acids/ Dextrose 1,000 mls @ 41.667 mls/hr IVPB DAILY@ 1600 [facility] Last Admin: 01/12/20 17:00 Dose: 41.667 mls/hr Insulin Aspart (Novolog Vial Sliding Scale -) 1 vial SQ ACHS [facility]; Protocol Last Admin: 01/13/20 06:29 Dose: Not Given Latanoprost (Xalatan 0.005% Eye Drops -) 1 drop OU HS [facility] Last Admin: 01/12/20 22:39 Dose: 1 drop Lidocaine (Lidoderm Patch -) 1 patch TP DAILY [facility] Last Admin: 01/12/20 11:00 Dose: 1 patch Methimazole (Tapazole -) 10 mg PO BID [facility] Last Admin: 01/12/20 22:33 Dose: 10 mg Miscellaneous (Lidoderm Patch Removal) 1 each MC DAILY@2200 [facility] Last Admin: 01/12/20 22:37 Dose: 1 each Mupirocin (Bactroban Ointment (For Decolonization) -) 1 applic NS BID [facility] Stop: 01/13/20 21:59 Last Admin: 01/12/20 22:32 Dose: 1 applic Pantoprazole Sodium (Protonix Iv) 40 mg IVPUSH BID [facility] Last Admin: 01/12/20 22:32 Dose: 40 mg Timolol Maleate (Timoptic 0.5%) 1 drop OU BID [facility] Last Admin: 01/12/20 22:39 Dose: 1 drop - Objective Vital Signs: Vital Signs Temperature 97.8 F 01/13/20 06:00 Pulse Rate 74 01/13/20 06:00 Respiratory Rate 16 01/13/20 06:00 Blood Pressure 104/71 01/13/20 04:00 O2 Sat by Pulse Oximetry (%) 95 01/12/20 23:02 Constitutional: Yes: No Distress, Calm Eyes: Yes: Conjunctiva Clear HENT: Yes: Atraumatic Neck: Yes: Supple Cardiovascular: No: Regular Rate and Rhythm Respiratory: Yes: Diminished Gastrointestinal: Yes: Soft, Other (s/p surgery) Genitourinary: No: CVA Tenderness - Left, Hematuria Musculoskeletal: No: Joint Stiffness, Joint Swelling Extremities: No: Cold, Cool, Cyanosis Edema: No Integumentary: No: Rash, Venous Stasis Changes Neurological: Yes: Alert, Oriented ...Motor Strength: WNL Psychiatric: Yes: Alert, Oriented. No: Agitated Labs: CBC, BMP 01/13/20 06:00 INR, PTT INR 1.35 (0.83-1.09) H 01/11/20 06:00 - ....Imaging Other: Report Reviewed Assessment/Plan 84-year-old female history of anemia, A. fib, diabetes, hypertension, lipidemia , colon cancer status post resection and hernia repair complicated by abdominal skin wall abscess and fistula admitted with hypotension, sepsis; anemia; no obvious bleeding s/p abdominal exploration surgery; BP improving on ATB; off pressors broad spectrum IV ATB per ID R foot / toe pain: vascular sx eval; eliquis restarted prognosis guarded d/w pt and family at bedside ID, surgery, cardiology f/u f/u labs and cultures falls DVT aspiration decubs PFX d/w pt and staff t time 35 min harjinder daughter Yogi
--- NOTE | 2020-01-13 08:53 | PN ---
Progress Note (short form) - Note Progress Note: s/p drainage of collections- enterocutaneous fistula noted pod #2 on clears off pressors Vital Signs Period Temp Pulse Resp BP Sys/Ugarte Pulse Ox Last 24 Hr 96.4 F-98.9 F 74-108 10-20 92-128/42-81 95-95 cor-rrr lungs clear abd +bag with feces soft ext no edema CBC, BMP 01/13/20 06:00 01/13/20 06:00 Microbiology 01/11/20 11:00 Body Fluid - Other Gram Stain - Final 01/11/20 11:00 Body Fluid - Other Body Fluid Culture - Preliminary Non Lactose Fermenting Gnb 01/11/20 11:00 Body Fluid - Other Gram Stain - Final 01/11/20 11:00 Body Fluid - Other Body Fluid Culture - Preliminary Non Lactose Fermenting Gnb 01/08/20 14:00 Blood - Peripheral Venous Blood Culture - Preliminary NO GROWTH OBTAINED AFTER 96 HOURS, INCUBATION TO CONTINUE FOR 1 DAYS. 01/08/20 14:00 Blood - Peripheral Venous Blood Culture - Preliminary NO GROWTH OBTAINED AFTER 96 HOURS, INCUBATION TO CONTINUE FOR 1 DAYS. 01/10/20 20:00 Stool Clostridioides difficile Antigen - Final 01/10/20 20:00 Stool Clostridioides difficile Toxin Assay - Final 01/08/20 15:46 Urine - Urine - Catheterized Urine Culture - Final Pseudomonas Aeruginosa a/p sepsis secondary to multiple subcutaneous abscesses-for operative drainage today enterocutaneous fistula s/p mesh repair of hernia with small bowel resection s/p left colectomy colon cancer vre culture positive by history UTI -pseudomonas continue zosyn/zyvox/diflucan operative cultures pending- GNR Problem List - Problems (1) Sepsis Code(s): A41.9 - SEPSIS, UNSPECIFIED ORGANISM Qualifiers: Sepsis type: sepsis due to unspecified organism Qualified Code(s): A41.9 - Sepsis, unspecified organism (2) Abscess Code(s): L02.91 - CUTANEOUS ABSCESS, UNSPECIFIED (3) S/P repair of ventral hernia Code(s): Z98.890 - OTHER SPECIFIED POSTPROCEDURAL STATES; Z87.19 - PERSONAL HISTORY OF OTHER DISEASES OF THE DIGESTIVE SYSTEM (4) S/P left hemicolectomy Code(s): Z90.49 - ACQUIRED ABSENCE OF OTHER SPECIFIED PARTS OF DIGESTIVE TRACT (5) Colon cancer Code(s): C18.9 - MALIGNANT NEOPLASM OF COLON, UNSPECIFIED (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
[2020-01-13] MEDS: METHIMAZOLE 10 MG TABLET (FP) PO SCH ×2 (09:58→21:11)
[2020-01-13] MEDS: APIXABAN 5 MG TABLET PO SCH ×2 (09:58→21:10)
[2020-01-13] MEDS: FLUCONAZOLE 200 MG/NS 100 ML IVPB SCH (09:58)
[2020-01-13] MEDS: PANTOPRAZOLE SODIUM 40 MG VIAL IVPUSH SCH ×2 (09:58→21:11)
[2020-01-13] MEDS: NOREPINEPHRINE BITARTRATE 8,000 MCG in DEXTROSE 5%-WATER - 492 ML IV SCH (09:59)
[2020-01-13] MEDS: LIDOCAINE 5% TOPICAL PATCH TP SCH (10:00)
--- NOTE | 2020-01-13 10:03 | PN ---
Progress Note, Physician Chief Complaint: Events noted Not in distress History of Present Illness: Patient was seen and examined. Awake and alert. Chart was reviewed Remains in ICU. - Current Medication List Current Medications: Active Medications Acetaminophen (Tylenol -) 650 mg PO Q6H PRN PRN Reason: PAIN LEVEL 1-5 Albuterol Sulfate (Ventolin 0.083% Nebulizer Soln -) 1 amp NEB Q6H PRN PRN Reason: SHORT OF BREATH/WHEEZING Apixaban (Eliquis -) 5 mg PO BID [facility] Last Admin: 01/12/20 22:33 Dose: 5 mg Brimonidine Tartrate (Alphagan 0.2% -) 1 drop OU BID [facility] Last Admin: 01/12/20 22:37 Dose: 1 drop Chlorhexidine Gluconate (Hibiclens For Decolonization -) 1 applic TP HS [facility] Last Admin: 01/12/20 22:33 Dose: 1 applic Fluticasone Propionate (Flonase -) 1 spray NS BID [facility] Last Admin: 01/12/20 22:38 Dose: Not Given Hydromorphone HCl (Dilaudid Vial -) 0.5 mg IVPUSH Q3H PRN PRN Reason: PAIN LEVEL 1-5 Fluconazole (Diflucan 200 Mg/Ns Premixed Ivpb -) 100 mls @ 100 mls/hr IVPB DAILY [facility] Last Admin: 01/12/20 10:11 Dose: 100 mls/hr Linezolid (Zyvox 600 Mg Premix Bag (Restricted To Id) -) 600 mg in 300 mls @ 300 mls/hr IVPB BID [facility]; Protocol Last Admin: 01/12/20 22:37 Dose: 300 mls/hr Norepinephrine Bitartrate 8, (000 mcg/ Dextrose) 500 mls @ 18.75 mls/hr IV TITR [facility]; Protocol Last Admin: 01/12/20 08:00 Dose: Not Given Sodium Chloride (Normal Saline -) 1,000 mls @ 100 mls/hr IV ASDIR [facility] Last Admin: 01/13/20 06:31 Dose: 100 mls/hr Piperacillin Sod/Tazobactam (Sod 4.5 gm/ Dextrose) 100 mls @ 200 mls/hr IVPB Q8H-IV [facility]; Protocol Last Admin: 01/13/20 02:30 Dose: 200 mls/hr Potassium Chloride 60 meq/Potassium Phosphate 20 mm/Sodium Chloride 60 meq/ Magnesium Sulfate 0.98 gm/Folic Acid 1 mg/ Multivitamins /Minerals 10 ml/ Sterile Water / Amino Acids/ Dextrose 1,000 mls @ 41.667 mls/hr IVPB DAILY@ 1600 [facility] Last Admin: 01/12/20 17:00 Dose: 41.667 mls/hr Insulin Aspart (Novolog Vial Sliding Scale -) 1 vial SQ ACHS [facility]; Protocol Last Admin: 01/13/20 06:29 Dose: Not Given Latanoprost (Xalatan 0.005% Eye Drops -) 1 drop OU HS [facility] Last Admin: 01/12/20 22:39 Dose: 1 drop Lidocaine (Lidoderm Patch -) 1 patch TP DAILY [facility] Last Admin: 01/12/20 11:00 Dose: 1 patch Methimazole (Tapazole -) 10 mg PO BID [facility] Last Admin: 01/12/20 22:33 Dose: 10 mg Miscellaneous (Lidoderm Patch Removal) 1 each MC DAILY@2200 [facility] Last Admin: 01/12/20 22:37 Dose: 1 each Mupirocin (Bactroban Ointment (For Decolonization) -) 1 applic NS BID [facility] Stop: 01/13/20 21:59 Last Admin: 01/12/20 22:32 Dose: 1 applic Pantoprazole Sodium (Protonix Iv) 40 mg IVPUSH BID [facility] Last Admin: 01/12/20 22:32 Dose: 40 mg Timolol Maleate (Timoptic 0.5%) 1 drop OU BID [facility] Last Admin: 01/12/20 22:39 Dose: 1 drop - Objective Vital Signs: Vital Signs Temperature 97.8 F 01/13/20 06:00 Pulse Rate 89 01/13/20 08:00 Respiratory Rate 19 01/13/20 08:00 Blood Pressure 129/72 01/13/20 08:00 O2 Sat by Pulse Oximetry (%) 95 01/12/20 23:02 Neck: Yes: Supple Cardiovascular: Yes: Pulse Irregular, S1, S2 Respiratory: Yes: Diminished Gastrointestinal: Yes: Other (Post op) Edema: No Labs: CBC, BMP 01/13/20 06:00 01/13/20 06:00 INR, PTT INR 1.35 (0.83-1.09) H 01/11/20 06:00 Problem List - Problems (1) Abdominal fistula Code(s): K63.2 - FISTULA OF INTESTINE (2) Abscess Code(s): L02.91 - CUTANEOUS ABSCESS, UNSPECIFIED (3) Colon cancer Code(s): C18.9 - MALIGNANT NEOPLASM OF COLON, UNSPECIFIED (4) Diabetes mellitus Code(s): E11.9 - TYPE 2 DIABETES MELLITUS WITHOUT COMPLICATIONS (5) 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 - FISTULA OF INTESTINE (6) S/P left colectomy Code(s): Z90.49 - ACQUIRED ABSENCE OF OTHER SPECIFIED PARTS OF DIGESTIVE TRACT (7) Sepsis Code(s): A41.9 - SEPSIS, UNSPECIFIED ORGANISM Qualifiers: Sepsis type: sepsis due to unspecified organism Sepsis acute organ dysfunction status: unspecified Qualified Code(s): A41.9 - Sepsis, unspecified organism (8) Subcutaneous abscess Code(s): L02.91 - CUTANEOUS ABSCESS, UNSPECIFIED (9) Afib Code(s): I48.91 - UNSPECIFIED ATRIAL FIBRILLATION Qualifiers: Atrial fibrillation type: permanent Qualified Code(s): I48.21 - Permanent atrial fibrillation (10) Hyperthyroidism Code(s): E05.90 - THYROTOXICOSIS, UNSP WITHOUT THYROTOXIC CRISIS OR STORM (11) S/P left hemicolectomy Code(s): Z90.49 - ACQUIRED ABSENCE OF OTHER SPECIFIED PARTS OF DIGESTIVE TRACT (12) S/P repair of ventral hernia Code(s): Z98.890 - OTHER SPECIFIED POSTPROCEDURAL STATES; Z87.19 - PERSONAL HISTORY OF OTHER DISEASES OF THE DIGESTIVE SYSTEM (13) CAD (coronary artery disease) Code(s): I25.10 - ATHSCL HEART DISEASE OF [place] CORONARY ARTERY W/O ANG PCTRS Qualifiers: Coronary Disease-Associated Artery/Lesion type: [place] artery [place] vs. transplanted heart: [place] heart Associated angina: without angina Qualified Code(s): I25.10 - Atherosclerotic heart disease of [place] coronary artery without angina pectoris (14) CVA (cerebral vascular accident) Code(s): I63.9 - CEREBRAL INFARCTION, UNSPECIFIED Qualifiers: CVA mechanism: unspecified Qualified Code(s): I63.9 - Cerebral infarction, unspecified (15) HTN (hypertension) Code(s): I10 - ESSENTIAL (PRIMARY) HYPERTENSION Qualifiers: Hypertension type: essential hypertension Qualified Code(s): I10 - Essential (primary) hypertension (16) Parkinson disease Code(s): G20 - PARKINSON'S DISEASE Assessment/Plan 1. Subcutaneous Abscesses, Enterocutaneous Fistula post I&D, washout and repair 2. Septic shock 3. Post abdominal hernia repair complicated by small bowel resection and mesh placement, h/o IR drain of abscess 4. Persistent atrial Fibrillation [id number] score of 5 5. Diastolic LV dysfunction with clinical class 0 NYHA classification LV failure 6. HTN 7. DM 8. Hyperthyroidism 9. History of cervical carcinoma post resection 10. History of colon carcinoma post hemicolectomy 11. Anemia PLAN: 1. Antibiotics and antifungal per ID 2. Resume Eliquis once post-op hemostasis assured 3. Resume Lopressor 25 mg BID, Losartan 25 mg QD and Lasix 20 mg QD when hemodynamically stable 4. IV Lopressor as needed for rate-control 5. Post op management Johann Cowan MD
[2020-01-13] MEDS: TIMOLOL 0.5% OPHTHALMIC SOL 5 ML BOTTLE OU SCH ×2 (10:06→21:11)
[2020-01-13] MEDS: BRIMONIDINE TARTRATE 0.2% OPHTHALMIC 5 ML BOTTLE OU SCH ×2 (10:06→21:42)
[2020-01-13] MEDS: MUPIROCIN 2% TOPICAL OINTMENT FOR DECOLONIZATION NS SCH (10:07)
[2020-01-13] MEDS: FLUTICASONE PROP 0.05% 16 GM NASAL SPRAY NS SCH ×2 (10:07→21:11)
[2020-01-13] MEDS: LINEZOLID 600 MG PREMIX BAG 600 MG/300 ML BAG IVPB SCH ×2 (10:08→21:12)
--- NOTE | 2020-01-13 12:15 | PN ---
Progress Note (short form) - Note Progress Note: Pulm/CCU SUBJECTIVE: Patient seen and examined in the ICU. -s/p Ex lap with Dr Alvarado -on tpn, abdominal drain with less output -BM yesterday OBJECTIVE: CBC, BMP 01/13/20 06:00 01/13/20 06:00 Active Medications Microbiology 01/11/20 11:00 Body Fluid - Other Gram Stain - Final 01/11/20 11:00 Body Fluid - Other Body Fluid Culture - Preliminary Escherichia Coli 01/11/20 11:00 Body Fluid - Other Gram Stain - Final 01/11/20 11:00 Body Fluid - Other Body Fluid Culture - Preliminary Non Lactose Fermenting Gnb 01/08/20 14:00 Blood - Peripheral Venous Blood Culture - Preliminary NO GROWTH OBTAINED AFTER 96 HOURS, INCUBATION TO CONTINUE FOR 1 DAYS. 01/08/20 14:00 Blood - Peripheral Venous Blood Culture - Preliminary NO GROWTH OBTAINED AFTER 96 HOURS, INCUBATION TO CONTINUE FOR 1 DAYS. Intake & Output 01/10/20 01/11/20 01/12/20 01/13/20 23:59 23:59 23:59 23:59 Intake Total 4329.1 3160 3670 1300 Output Total 5 300 Balance 4329.1 3155 3370 1300 Weight 70.76 kg 72.847 kg 76.1 kg 75.251 kg Active Medications Acetaminophen (Tylenol -) 650 mg PO Q6H PRN PRN Reason: PAIN LEVEL 1-5 Albuterol Sulfate (Ventolin 0.083% Nebulizer Soln -) 1 amp NEB Q6H PRN PRN Reason: SHORT OF BREATH/WHEEZING Apixaban (Eliquis -) 5 mg PO BID [facility] Last Admin: 01/13/20 09:58 Dose: 5 mg Brimonidine Tartrate (Alphagan 0.2% -) 1 drop OU BID [facility] Last Admin: 01/13/20 10:06 Dose: 1 drop Chlorhexidine Gluconate (Hibiclens For Decolonization -) 1 applic TP HS [facility] Last Admin: 01/12/20 22:33 Dose: 1 applic Fluticasone Propionate (Flonase -) 1 spray NS BID [facility] Last Admin: 01/13/20 10:07 Dose: 1 spray Hydromorphone HCl (Dilaudid Vial -) 0.5 mg IVPUSH Q3H PRN PRN Reason: PAIN LEVEL 1-5 Fluconazole (Diflucan 200 Mg/Ns Premixed Ivpb -) 100 mls @ 100 mls/hr IVPB DAILY [facility] Last Admin: 01/13/20 09:58 Dose: 100 mls/hr Linezolid (Zyvox 600 Mg Premix Bag (Restricted To Id) -) 600 mg in 300 mls @ 300 mls/hr IVPB BID [facility]; Protocol Last Admin: 01/13/20 10:08 Dose: 300 mls/hr Piperacillin Sod/Tazobactam (Sod 4.5 gm/ Dextrose) 100 mls @ 200 mls/hr IVPB Q8H-IV [facility]; Protocol Last Admin: 01/13/20 10:07 Dose: 200 mls/hr Potassium Chloride 60 meq/Potassium Phosphate 20 mm/Sodium Chloride 60 meq/ Magnesium Sulfate 0.98 gm/Folic Acid 1 mg/ Multivitamins /Minerals 10 ml/ Sterile Water / Amino Acids/ Dextrose 1,000 mls @ 41.667 mls/hr IVPB DAILY@ 1600 [facility] Last Admin: 01/12/20 17:00 Dose: 41.667 mls/hr Insulin Aspart (Novolog Vial Sliding Scale -) 1 vial SQ ACHS [facility]; Protocol Last Admin: 01/13/20 06:29 Dose: Not Given Latanoprost (Xalatan 0.005% Eye Drops -) 1 drop OU HS [facility] Last Admin: 01/12/20 22:39 Dose: 1 drop Lidocaine (Lidoderm Patch -) 1 patch TP DAILY [facility] Last Admin: 01/13/20 10:00 Dose: 1 patch Methimazole (Tapazole -) 10 mg PO BID [facility] Last Admin: 01/13/20 09:58 Dose: 10 mg Miscellaneous (Lidoderm Patch Removal) 1 each MC DAILY@2200 [facility] Last Admin: 01/12/20 22:37 Dose: 1 each Mupirocin (Bactroban Ointment (For Decolonization) -) 1 applic NS BID [facility] Stop: 01/13/20 21:59 Last Admin: 01/13/20 10:07 Dose: 1 applic Pantoprazole Sodium (Protonix Iv) 40 mg IVPUSH BID [facility] Last Admin: 01/13/20 09:58 Dose: 40 mg Timolol Maleate (Timoptic 0.5%) 1 drop OU BID [facility] Last Admin: 01/13/20 10:06 Dose: 1 drop Gen: NAD at rest Heart: NSR, S1S2, no murmurs Lung: clear to auscultation bilaterally, decreased bases, Abd: soft, nontender, feculent drainage from fistula Ext: no edema, left great toe cold to touch with bluish discoloration ASSESSMENT/PLAN: Subcutaneous Abscess Enterocutaneous Fisulta h/o Colon Ca s/p Hemicolectomy/Hernia Repair 10/09 Septic Shock (resolved) Lactic Acidosis Atrial Fibrillation LV Diastolic Dysfunction HTN DM Hyperthyroidism Anemia POD #2 ex trino/Jenny - Continue antimicrobals per ID - f/u on cultures - TPN - D/c IVF - Started on clear liquid diet - Eliquis - PPI ppx - Insulin coverage Dispo: full code Evonne Sheridan [facility]- [id number]
[2020-01-13] MEDS: SODIUM CHLORIDE IVPB SCH (17:30)
[2020-01-13] MEDS: [UNRECOGNIZED DRUG - OTHER] IVPB SCH (17:30)
[2020-01-13] MEDS: POTASSIUM PHOSPHATE IVPB SCH (17:30)
[2020-01-13] MEDS: POTASSIUM CHLORIDE IVPB SCH (17:30)
[2020-01-13] MEDS ORDERED: PT OWN MED DRAWER 7, Y5N ONE (21:08)
[2020-01-13] MEDS: LIDOCAINE PATCH REMOVAL MC SCH (21:11)
[2020-01-13] MEDS: CHLORHEXIDINE GLUCONATE 4% CLEANSER FOR DECOLONIZATION TP SCH (21:11)
[2020-01-13] MEDS: LATANOPROST 0.005% OPHTH SOLN 2.5ML BOTTLE OU SCH (21:12)
[2020-01-14] MEDS ORDERED: PIPERACILLIN/TAZOBACTAM 4.5 GM VIAL IVPB ONE ×3 (02:37→18:20)
[2020-01-14] MEDS ORDERED: DEXTROSE 5%-WATER 100 ML IVPB ONE ×3 (02:37→18:20)
[2020-01-14] MEDS: PIPERACILLIN/TAZOB 4.5 GM 4.5 GM in DEXTROSE 5%-WATER 100 ML IVPB SCH ×3 (02:39→18:19)
[2020-01-14] MEDS: INSULIN SLIDING SCALE (NOVOLOG) 1 VIAL SQ SCH ×4 (06:20→22:02)
--- NOTE | 2020-01-14 06:20 | PN ---
Progress Note, Physician Chief Complaint: in ICU awake alert afebrile; BP borderline low - HG 7/6 no onvious bleeding; hungry; no [ain; daughter at bedside - Current Medication List Current Medications: Active Medications Acetaminophen (Tylenol -) 650 mg PO Q6H PRN PRN Reason: PAIN LEVEL 1-5 Albuterol Sulfate (Ventolin 0.083% Nebulizer Soln -) 1 amp NEB Q6H PRN PRN Reason: SHORT OF BREATH/WHEEZING Apixaban (Eliquis -) 5 mg PO BID [facility] Last Admin: 01/13/20 21:10 Dose: 5 mg Brimonidine Tartrate (Alphagan 0.2% -) 1 drop OU BID [facility] Last Admin: 01/13/20 21:42 Dose: 1 drop Chlorhexidine Gluconate (Hibiclens For Decolonization -) 1 applic TP HS [facility] Last Admin: 01/13/20 21:11 Dose: 1 applic Fluticasone Propionate (Flonase -) 1 spray NS BID [facility] Last Admin: 01/13/20 21:11 Dose: 1 spray Hydromorphone HCl (Dilaudid Vial -) 0.5 mg IVPUSH Q3H PRN PRN Reason: PAIN LEVEL 1-5 Fluconazole (Diflucan 200 Mg/Ns Premixed Ivpb -) 100 mls @ 100 mls/hr IVPB DAILY [facility] Last Admin: 01/13/20 09:58 Dose: 100 mls/hr Linezolid (Zyvox 600 Mg Premix Bag (Restricted To Id) -) 600 mg in 300 mls @ 300 mls/hr IVPB BID [facility]; Protocol Last Admin: 01/13/20 21:12 Dose: 300 mls/hr Piperacillin Sod/Tazobactam (Sod 4.5 gm/ Dextrose) 100 mls @ 200 mls/hr IVPB Q8H-IV [facility]; Protocol Last Admin: 01/14/20 02:39 Dose: 200 mls/hr Potassium Chloride 60 meq/Potassium Phosphate 20 mm/Sodium Chloride 60 meq/ Magnesium Sulfate 0.98 gm/Folic Acid 1 mg/ Multivitamins /Minerals 10 ml/ Sterile Water / Amino Acids/ Dextrose 1,000 mls @ 41.667 mls/hr IVPB DAILY@ 1600 [facility] Last Admin: 01/13/20 17:30 Dose: 41.667 mls/hr Insulin Aspart (Novolog Vial Sliding Scale -) 1 vial SQ ACHS [facility]; Protocol Last Admin: 01/13/20 21:26 Dose: Not Given Latanoprost (Xalatan 0.005% Eye Drops -) 1 drop OU HS [facility] Last Admin: 01/13/20 21:12 Dose: 1 drop Lidocaine (Lidoderm Patch -) 1 patch TP DAILY [facility] Last Admin: 01/13/20 10:00 Dose: 1 patch Methimazole (Tapazole -) 10 mg PO BID [facility] Last Admin: 01/13/20 21:11 Dose: 10 mg Miscellaneous (Lidoderm Patch Removal) 1 each MC DAILY@2200 [facility] Last Admin: 01/13/20 21:11 Dose: 1 each Pantoprazole Sodium (Protonix Iv) 40 mg IVPUSH BID [facility] Last Admin: 01/13/20 21:11 Dose: 40 mg Timolol Maleate (Timoptic 0.5%) 1 drop OU BID [facility] Last Admin: 01/13/20 21:11 Dose: 1 drop - Objective Vital Signs: Vital Signs Temperature 98.2 F 01/14/20 04:00 Pulse Rate 78 01/14/20 04:00 Respiratory Rate 16 01/14/20 04:00 Blood Pressure 94/59 L 01/14/20 04:00 O2 Sat by Pulse Oximetry (%) 100 01/13/20 20:01 Constitutional: Yes: No Distress, Calm Eyes: Yes: Conjunctiva Clear HENT: Yes: Atraumatic Neck: Yes: Supple Cardiovascular: No: Regular Rate and Rhythm Respiratory: Yes: Diminished Gastrointestinal: Yes: Soft, Other (s/p surgery / draining bag no bleed) Genitourinary: No: Hematuria Musculoskeletal: No: Joint Stiffness, Joint Swelling Extremities: No: Cold, Cool, Cyanosis Edema: No Integumentary: No: Rash, Venous Stasis Changes Neurological: Yes: Alert, Oriented, Tremors (head) ...Motor Strength: WNL Psychiatric: No: Alert, Oriented, Agitated Labs: CBC, BMP 01/13/20 06:00 01/13/20 06:00 INR, PTT INR 1.35 (0.83-1.09) H 01/11/20 06:00 - ....Imaging Other: Report Reviewed Assessment/Plan 84-year-old female history of anemia, A. fib, diabetes, hypertension, lipidemia , colon cancer status post resection and hernia repair complicated by abdominal skin wall abscess and fistula admitted with hypotension, sepsis; anemia; no obvious bleeding s/p abdominal exploration surgery; BP improving on ATB; off pressors broad spectrum IV ATB per ID r/o PVD vascular sx eval; eliquis restarted Hg7.6 transfuse PRBC f/u labs prognosis guarded ID, surgery, cardiology f/u f/u labs and cultures falls DVT aspiration decubs PFX d/w pt and staff t time 35 min dw daughter
[2020-01-14 07:11] LABS: BASO % 0.6 % (0-2.0); EOS % 5.4 % (0-4.5); HEMATOCRIT 22.8 % (32.4-45.2); HEMOGLOBIN 7.6 GM/dL (10.7-15.3); LYMPH % 28.6 % (8-40); MCH 30.4 pg (25.7-33.7); MCHC 33.4 g/dl (32.0-36.0); MEAN CELL VOLUME 91.1 fl (80-96); MEAN PLT VOLUME 6.8 fl (7.5-11.1); MONO % 11.5 % (3.8-10.2); NEUT % 53.9 % (42.8-82.8); PLATELET COUNT 272 K/MM3 (134-434); RDW 17.7 % (11.6-15.6); WHITE BLOOD COUNT 4.9 K/mm3 (4.0-10.0)
[2020-01-14 07:39] LABS: ALBUMIN 1.1 g/dl (3.4-5.0); BILIRUBIN,TOTAL 0.2 mg/dL (0.2-1); CALCIUM 7.6 mg/dL (8.5-10.1); CREATININE 0.5 mg/dL (0.55-1.3); POTASSIUM 4.2 mmol/L (3.5-5.1); TOT PROT 3.6 g/dl (6.4-8.2)
--- NOTE | 2020-01-14 07:51 | PN ---
Progress Note (short form) - Note Progress Note: GENEERAL SURGERY POD #1 s/p abd wound exploration with washout No acute events per RN notes. Daughter at bedside. Patient is alert and answering questions appropriately (daughter translated). Afebrile. AVSS. 3 01/12/20 01/13/20 01/14/20 05:45 06:00 05:00 WBC 5.5 4.8 Pending Hgb 8.1 L 8.0 L Pending Hct 24.9 L 24.4 L Pending Gen: nad ABD: soft. non-distended. lucius insitu. Osotomy appliance over enterocutaneous fistula (low output) Problem List - Problems (1) Enterocutaneous fistula Assessment/Plan: - Dressing changed on rounds - Cont clear liquids given fistula appears to be low output - Plan on fistulogram this week to better qualify location but doubt exploration for correction of this possible given her overall status. - Cont ICU management - Reposition every two hours while in bed - Air mattress recommended - Use drawsheets and Trendelenburg when repositioning to reduce friction and shear - Manageincontinence via timely cleansing, use of appropriate incontinence disposables and use of barrier ointment to intact skin - Ensure adequate hydration/nutrition, supplementation per primary team - Ensure off-loading to all bony areas (heels, ankles, hips and tailbone) with Allevyn/Optifoam Above plan discussed with Dr. Alvarado and agrees. Code(s): K63.2 - FISTULA OF INTESTINE (2) Diabetes mellitus Code(s): E11.9 - TYPE 2 DIABETES MELLITUS WITHOUT COMPLICATIONS (3) HTN (hypertension) Code(s): I10 - ESSENTIAL (PRIMARY) HYPERTENSION Qualifiers: Hypertension type: essential hypertension Qualified Code(s): I10 - Essential (primary) hypertension (4) Microcytic anemia Code(s): D50.9 - IRON DEFICIENCY ANEMIA, UNSPECIFIED
--- NOTE | 2020-01-14 08:46 | PN ---
Physical Exam: SUBJECTIVE: Patient seen and examined. No acute events overnight. Pain is tolerated. OBJECTIVE: Vital Signs Period Temp Pulse Resp BP Sys/Ugarte Pulse Ox Last 24 Hr 98 F-98.3 F 74-94 14-19 94-127/59-83 95-100 GENERAL: Drowsy, but arousable, oriented to person and place, in no acute distress. HEAD: Normal with no signs of trauma. EYES: Pupils equal, round and reactive to light, extraocular movements intact, sclera anicteric, conjunctiva clear. No lid lag. EARS, NOSE, THROAT: Ears normal, nares patent, oropharynx clear without exudates. Moist mucous membranes. NECK: Normal range of motion, supple without lymphadenopathy, JVD, or masses. RIJ in place with no erythema. LUNGS: Breath sounds equal, clear to auscultation bilaterally. No wheezes, and no crackles. No accessory muscle use. HEART: Irregular rate and rhythm, normal S1 and S2 without murmur, rub or gallop. ABDOMEN: Soft, diffusely tender, normoactive bowel sounds, no guarding. Two 1cm periumbilical fistulas. Osotomy appliance over enterocutaneous fistula. Patrick in place. EXTREMITIES: 2+ pulses, no edema. R 1st toe cold to touch with bluish coloration. NEUROLOGICAL: Cranial nerves II through XII grossly intact. Normal speech, gait not observed. Chronic resting tremors SKIN: Warm, dry, normal turgor, no rashes or lesions noted Laboratory Results - last 24 hr CBC, BMP 01/14/20 05:00 01/14/20 05:00 Active Medications Acetaminophen (Tylenol -) 650 mg PO Q6H PRN PRN Reason: PAIN LEVEL 1-5 Albuterol Sulfate (Ventolin 0.083% Nebulizer Soln -) 1 amp NEB Q6H PRN PRN Reason: SHORT OF BREATH/WHEEZING Apixaban (Eliquis -) 5 mg PO BID [facility] Last Admin: 01/13/20 21:10 Dose: 5 mg Brimonidine Tartrate (Alphagan 0.2% -) 1 drop OU BID [facility] Last Admin: 01/13/20 21:42 Dose: 1 drop Chlorhexidine Gluconate (Hibiclens For Decolonization -) 1 applic TP HS [facility] Last Admin: 01/13/20 21:11 Dose: 1 applic Fluticasone Propionate (Flonase -) 1 spray NS BID [facility] Last Admin: 01/13/20 21:11 Dose: 1 spray Hydromorphone HCl (Dilaudid Vial -) 0.5 mg IVPUSH Q3H PRN PRN Reason: PAIN LEVEL 1-5 Fluconazole (Diflucan 200 Mg/Ns Premixed Ivpb -) 100 mls @ 100 mls/hr IVPB DAILY [facility] Last Admin: 01/13/20 09:58 Dose: 100 mls/hr Linezolid (Zyvox 600 Mg Premix Bag (Restricted To Id) -) 600 mg in 300 mls @ 300 mls/hr IVPB BID [facility]; Protocol Last Admin: 01/13/20 21:12 Dose: 300 mls/hr Piperacillin Sod/Tazobactam (Sod 4.5 gm/ Dextrose) 100 mls @ 200 mls/hr IVPB Q8H-IV [facility]; Protocol Last Admin: 01/14/20 02:39 Dose: 200 mls/hr Potassium Chloride 60 meq/Potassium Phosphate 20 mm/Sodium Chloride 60 meq/Magnesium Sulfate 0.98 gm/Folic Acid 1 mg/ Multivitamins /Minerals 10 ml/ Sterile Water / Amino Acids/ Dextrose 1,000 mls @ 41.667 mls/hr IVPB DAILY@1600 [facility] Last Admin: 01/13/20 17:30 Dose: 41.667 mls/hr Insulin Aspart (Novolog Vial Sliding Scale -) 1 vial SQ ACHS [facility]; Protocol Last Admin: 01/14/20 06:20 Dose: Not Given Latanoprost (Xalatan 0.005% Eye Drops -) 1 drop OU HS [facility] Last Admin: 01/13/20 21:12 Dose: 1 drop Lidocaine (Lidoderm Patch -) 1 patch TP DAILY [facility] Last Admin: 01/13/20 10:00 Dose: 1 patch Methimazole (Tapazole -) 10 mg PO BID [facility] Last Admin: 01/13/20 21:11 Dose: 10 mg Miscellaneous (Lidoderm Patch Removal) 1 each MC DAILY@2200 [facility] Last Admin: 01/13/20 21:11 Dose: 1 each Pantoprazole Sodium (Protonix Iv) 40 mg IVPUSH BID [facility] Last Admin: 01/13/20 21:11 Dose: 40 mg Timolol Maleate (Timoptic 0.5%) 1 drop OU BID [facility] Last Admin: 01/13/20 21:11 Dose: 1 drop ASSESSMENT/PLAN: Patient is an 84 year old female with PMH of anemia (prior transfusions required), A. fib (on eliquis), CHF (EF55-60%), IDDM, HTN, DJD, hyperthyroidism, obesity, resting tremors, lipidemia, colon cancer s/p hemicolectomy, hernia repair in 10/09 complicated by enerocutaneous fistula and prolonged hospitalization (discharged 11/07/19 after abdominal wall collection drained by IR and growing VRE), presenting from home with hypotension. Admitted to the ICU for sepsis. Neuro -Arousable and oriented x2 -Hx of chronic resting tremors Cardiovascular -LIJ placed 01/08/20 -On 5mg levophed, wean as tolerated -Closely monitor hemodynamics -Hx of Afib (on eliquis), CHF, HTN -Restarted eliquis -Hold anti-hypertensives until hemodynamically stable -Can start IV lopressor if needed for rate control -Cardio following (Dr. Samuel) -Vascular consulted (Dr. Javier) as pt is complainding of R toe discomfort. Toe is cold and bluish in color. Pulmonary -CXR: no infiltrates -No acute problems GI -Hx of colon CA s/p hemicolectomy, hernia repair complicated by enterocutaneous fistulas and abd wall abscess (w/VRE) -Fistulas draining malodorous feces, likely source of infection -POD#3 abdominal wound exploration (Dr. Alvarado) -IV abx as per ID -CTAP: interval enlargement of several fluid collections consistent w/abscesses abutting ant aspect of abd wall musculature. Diffuse gastric wall thickening suggestive of edema and acute gastritis. 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 Low): d/c ertapenem -Cont IV zosyn and fluconazole (Day 4), can d/c linezolid -Urine cx: pseudomonas, resistant to gentamicin -Blood cx: NGTD Renal -UTI possible source of sepsis -UA: 2+ LE, 67 WBC -Cont IV abx -Monitor on I's & O's -Monitor BMP Heme -Hx of normocytic anemia -Cont to monitor CBC -FOBT neg Endo -Hx of hyperthyroidism and DM -ISS and BGM TIDAC -Cont home methimazole 10mg BID DVT ppx -Restarted home eliquis FEN -D/c fluids -Monitor lytes and replete prn -Can wean off TPN and cont clear liquid diet Dispo: Pt stable for transfer to [facility]-S[facility] Visit type - Emergency Visit Emergency Visit: No - New Patient This patient is new to me today: No - Critical Care Critical Care patient: Yes Total Critical Care Time (in minutes): 45 Critical Care Statement: The care of this patient involved high complexity decision making to prevent further life threatening deterioration of the patient's condition and/or to evaluate & treat vital organ system(s) failure or risk of failure. ATTENDING PHYSICIAN STATEMENT I saw and evaluated the patient. I reviewed the resident's note and discussed the case with the resident. I agree with the resident's findings and plan as documented. SUBJECTIVE: OBJECTIVE: ASSESSMENT AND PLAN:
--- NOTE | 2020-01-14 09:27 | PN ---
Progress Note (short form) - Note Progress Note: s/p drainage of collections- enterocutaneous fistula noted pod #3 on clears-she is hungry and wants mashed potatoes off pressors Vital Signs Period Temp Pulse Resp BP Sys/Ugarte Pulse Ox Last 24 Hr 98 F-98.3 F 74-94 13-19 94-127/59-83 100 awake and alert cor-rrr lungs clear abd soft,nt +drainage from fistula ext no edema CBC, BMP 01/14/20 05:00 01/14/20 05:00 Microbiology 01/08/20 14:00 Blood - Peripheral Venous Blood Culture - Final NO GROWTH AFTER 5 DAYS INCUBATION 01/08/20 14:00 Blood - Peripheral Venous Blood Culture - Final NO GROWTH AFTER 5 DAYS INCUBATION 01/11/20 11:00 Body Fluid - Other Gram Stain - Final 01/11/20 11:00 Body Fluid - Other Body Fluid Culture - Final Escherichia Coli Yeast Like Organism Alpha Hemolytic Streptococcus 01/11/20 11:00 Body Fluid - Other Anaerobic Culture - Final NO ANAEROBES WERE ISOLATED 01/11/20 11:00 Body Fluid - Other Gram Stain - Final 01/11/20 11:00 Body Fluid - Other Body Fluid Culture - Final Escherichia Coli Yeast Like Organism Alpha Hemolytic Streptococcus 01/11/20 11:00 Body Fluid - Other Anaerobic Culture - Final NO ANAEROBES WERE ISOLATED 01/10/20 20:00 Stool Clostridioides difficile Antigen - Final 01/10/20 20:00 Stool Clostridioides difficile Toxin Assay - Final 01/08/20 15:46 Urine - Urine - Catheterized Urine Culture - Final Pseudomonas Aeruginosa a/p sepsis secondary to multiple subcutaneous abscesses-for operative drainage today enterocutaneous fistula s/p mesh repair of hernia with small bowel resection s/p left colectomy colon cancer vre culture positive by history UTI -pseudomonas d/c zyvox continue zosyn (pseudomonas uti and abscess culture) continue diflucan Problem List - Problems (1) Sepsis Code(s): A41.9 - SEPSIS, UNSPECIFIED ORGANISM Qualifiers: Qualified Code(s): A41.9 - Sepsis, unspecified organism (2) Abscess Code(s): L02.91 - CUTANEOUS ABSCESS, UNSPECIFIED (3) S/P repair of ventral hernia Code(s): Z98.890 - OTHER SPECIFIED POSTPROCEDURAL STATES; Z87.19 - PERSONAL HISTORY OF OTHER DISEASES OF THE DIGESTIVE SYSTEM (4) S/P left hemicolectomy Code(s): Z90.49 - ACQUIRED ABSENCE OF OTHER SPECIFIED PARTS OF DIGESTIVE TRACT (5) Colon cancer Code(s): C18.9 - MALIGNANT NEOPLASM OF COLON, UNSPECIFIED (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
--- NOTE | 2020-01-14 09:41 | PN ---
Progress Note, Physician Chief Complaint: Events noted Not in distress History of Present Illness: Patient was seen and examined. Awake and alert. Chart was reviewed Remains in ICU. Denies chest pain or SOB - Current Medication List Current Medications: Active Medications Acetaminophen (Tylenol -) 650 mg PO Q6H PRN PRN Reason: PAIN LEVEL 1-5 Albuterol Sulfate (Ventolin 0.083% Nebulizer Soln -) 1 amp NEB Q6H PRN PRN Reason: SHORT OF BREATH/WHEEZING Apixaban (Eliquis -) 5 mg PO BID [facility] Last Admin: 01/13/20 21:10 Dose: 5 mg Brimonidine Tartrate (Alphagan 0.2% -) 1 drop OU BID [facility] Last Admin: 01/13/20 21:42 Dose: 1 drop Chlorhexidine Gluconate (Hibiclens For Decolonization -) 1 applic TP HS [facility] Last Admin: 01/13/20 21:11 Dose: 1 applic Fluticasone Propionate (Flonase -) 1 spray NS BID [facility] Last Admin: 01/13/20 21:11 Dose: 1 spray Hydromorphone HCl (Dilaudid Vial -) 0.5 mg IVPUSH Q3H PRN PRN Reason: PAIN LEVEL 1-5 Fluconazole (Diflucan 200 Mg/Ns Premixed Ivpb -) 100 mls @ 100 mls/hr IVPB DAILY [facility] Last Admin: 01/13/20 09:58 Dose: 100 mls/hr Piperacillin Sod/Tazobactam (Sod 4.5 gm/ Dextrose) 100 mls @ 200 mls/hr IVPB Q8H-IV [facility]; Protocol Last Admin: 01/14/20 02:39 Dose: 200 mls/hr Potassium Chloride 60 meq/Potassium Phosphate 20 mm/Sodium Chloride 60 meq/ Magnesium Sulfate 0.98 gm/Folic Acid 1 mg/ Multivitamins /Minerals 10 ml/ Sterile Water / Amino Acids/ Dextrose 1,000 mls @ 41.667 mls/hr IVPB DAILY@ 1600 [facility] Last Admin: 01/13/20 17:30 Dose: 41.667 mls/hr Insulin Aspart (Novolog Vial Sliding Scale -) 1 vial SQ ACHS [facility]; Protocol Last Admin: 01/14/20 06:20 Dose: Not Given Latanoprost (Xalatan 0.005% Eye Drops -) 1 drop OU HS [facility] Last Admin: 01/13/20 21:12 Dose: 1 drop Lidocaine (Lidoderm Patch -) 1 patch TP DAILY [facility] Last Admin: 01/13/20 10:00 Dose: 1 patch Methimazole (Tapazole -) 10 mg PO BID [facility] Last Admin: 01/13/20 21:11 Dose: 10 mg Miscellaneous (Lidoderm Patch Removal) 1 each MC DAILY@2200 [facility] Last Admin: 01/13/20 21:11 Dose: 1 each Octreotide Acetate (Sandostatin -) 100 mcg SQ TID [facility] Stop: 01/19/20 10:00 Pantoprazole Sodium (Protonix Iv) 40 mg IVPUSH BID [facility] Last Admin: 01/13/20 21:11 Dose: 40 mg Timolol Maleate (Timoptic 0.5%) 1 drop OU BID [facility] Last Admin: 01/13/20 21:11 Dose: 1 drop - Objective Vital Signs: Vital Signs Temperature 98.2 F 01/14/20 06:00 Pulse Rate 77 01/14/20 08:00 Respiratory Rate 13 01/14/20 08:00 Blood Pressure 119/64 01/14/20 08:00 O2 Sat by Pulse Oximetry (%) 100 01/13/20 20:01 Neck: Yes: Supple Cardiovascular: Yes: Pulse Irregular Respiratory: Yes: Diminished Gastrointestinal: Yes: Other (Post op) Edema: No Labs: CBC, BMP 01/14/20 05:00 01/14/20 05:00 Problem List - Problems (1) Abdominal fistula Code(s): K63.2 - FISTULA OF INTESTINE (2) Abscess Code(s): L02.91 - CUTANEOUS ABSCESS, UNSPECIFIED (3) Colon cancer Code(s): C18.9 - MALIGNANT NEOPLASM OF COLON, UNSPECIFIED (4) Diabetes mellitus Code(s): E11.9 - TYPE 2 DIABETES MELLITUS WITHOUT COMPLICATIONS (5) 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 - FISTULA OF INTESTINE (6) S/P left colectomy Code(s): Z90.49 - ACQUIRED ABSENCE OF OTHER SPECIFIED PARTS OF DIGESTIVE TRACT (7) Sepsis Code(s): A41.9 - SEPSIS, UNSPECIFIED ORGANISM Qualifiers: Sepsis type: sepsis due to unspecified organism Sepsis acute organ dysfunction status: unspecified Qualified Code(s): A41.9 - Sepsis, unspecified organism (8) Subcutaneous abscess Code(s): L02.91 - CUTANEOUS ABSCESS, UNSPECIFIED (9) Afib Code(s): I48.91 - UNSPECIFIED ATRIAL FIBRILLATION Qualifiers: Atrial fibrillation type: permanent Qualified Code(s): I48.21 - Permanent atrial fibrillation (10) Hyperthyroidism Code(s): E05.90 - THYROTOXICOSIS, UNSP WITHOUT THYROTOXIC CRISIS OR STORM (11) S/P left hemicolectomy Code(s): Z90.49 - ACQUIRED ABSENCE OF OTHER SPECIFIED PARTS OF DIGESTIVE TRACT (12) S/P repair of ventral hernia Code(s): Z98.890 - OTHER SPECIFIED POSTPROCEDURAL STATES; Z87.19 - PERSONAL HISTORY OF OTHER DISEASES OF THE DIGESTIVE SYSTEM (13) CAD (coronary artery disease) Code(s): I25.10 - ATHSCL HEART DISEASE OF [place] CORONARY ARTERY W/O ANG PCTRS Qualifiers: Coronary Disease-Associated Artery/Lesion type: [place] artery [place] vs. transplanted heart: [place] heart Associated angina: without angina Qualified Code(s): I25.10 - Atherosclerotic heart disease of [place] coronary artery without angina pectoris (14) CVA (cerebral vascular accident) Code(s): I63.9 - CEREBRAL INFARCTION, UNSPECIFIED Qualifiers: CVA mechanism: unspecified Qualified Code(s): I63.9 - Cerebral infarction, unspecified (15) HTN (hypertension) Code(s): I10 - ESSENTIAL (PRIMARY) HYPERTENSION Qualifiers: Hypertension type: essential hypertension Qualified Code(s): I10 - Essential (primary) hypertension (16) Parkinson disease Code(s): G20 - PARKINSON'S DISEASE Assessment/Plan 1. Subcutaneous Abscesses, Enterocutaneous Fistula post I&D, washout and repair 2. Septic shock 3. Post abdominal hernia repair complicated by small bowel resection and mesh placement, h/o IR drain of abscess 4. Persistent atrial Fibrillation [id number] score of 5 5. Diastolic LV dysfunction with clinical class 0 NYHA classification LV failure 6. HTN 7. DM 8. Hyperthyroidism 9. History of cervical carcinoma post resection 10. History of colon carcinoma post hemicolectomy 11. Anemia PLAN: 1. Antibiotics and antifungal per ID 2. Continue Eliquis 5 mg BID 3. Consider Lopressor 25 mg BID as tolerated. Consider Losartan 25 mg QD and Lasix 20 mg QD eventually 4. IV Lopressor as needed for rate-control 5. Post op management Johann Cowan MD
[2020-01-14] MEDS: FLUCONAZOLE 200 MG/NS 100 ML IVPB SCH (11:00)
[2020-01-14] MEDS: BRIMONIDINE TARTRATE 0.2% OPHTHALMIC 5 ML BOTTLE OU SCH ×2 (11:07→21:36)
[2020-01-14] MEDS: APIXABAN 5 MG TABLET PO SCH (11:07)
[2020-01-14] MEDS: METOPROLOL TARTRATE 25 MG TABLET (FP) PO SCH ×2 (11:09→21:45)
[2020-01-14] MEDS: PANTOPRAZOLE SODIUM 40 MG VIAL IVPUSH SCH ×2 (11:10→21:39)
[2020-01-14] MEDS ORDERED: PT OWN MED DRAWER 7, Y5N ONE ×2 (11:26→21:51)
--- NOTE | 2020-01-14 12:05 | PN ---
Teaching Attending Note Name of Resident: Kristal Akins ATTENDING PHYSICIAN STATEMENT I saw and evaluated the patient. I reviewed the resident's note and discussed the case with the resident. I agree with the resident's findings and plan as documented. SUBJECTIVE: Patient seen and examined in the ICU. Awake and alert. Denies CP or SOB. Denies abdominal pain. Tolerated clear liquids this AM. Intake & Output 01/11/20 01/12/20 01/13/20 01/14/20 23:59 23:59 23:59 23:59 Intake Total 3160 3770 3344 958 Output Total 5 300 1100 1500 Balance 3155 3470 2244 -542 Weight 160 lb 9.6 oz 167 lb 12.348 oz 165 lb 14.4 oz 165 lb Last Vital Signs Temp Pulse Resp BP Pulse Ox 98.4 F 87 19 120/69 100 01/14/20 10:00 01/14/20 10:00 01/14/20 10:00 01/14/20 10:00 01/13/20 20:01 Active Medications Acetaminophen (Tylenol -) 650 mg PO Q6H PRN PRN Reason: PAIN LEVEL 1-5 Albuterol Sulfate (Ventolin 0.083% Nebulizer Soln -) 1 amp NEB Q6H PRN PRN Reason: SHORT OF BREATH/WHEEZING Apixaban (Eliquis -) 5 mg PO BID [facility] Last Admin: 01/13/20 21:10 Dose: 5 mg Brimonidine Tartrate (Alphagan 0.2% -) 1 drop OU BID [facility] Last Admin: 01/13/20 21:42 Dose: 1 drop Chlorhexidine Gluconate (Hibiclens For Decolonization -) 1 applic TP HS [facility] Last Admin: 01/13/20 21:11 Dose: 1 applic Fluticasone Propionate (Flonase -) 1 spray NS BID [facility] Last Admin: 01/13/20 21:11 Dose: 1 spray Hydromorphone HCl (Dilaudid Vial -) 0.5 mg IVPUSH Q3H PRN PRN Reason: PAIN LEVEL 1-5 Fluconazole (Diflucan 200 Mg/Ns Premixed Ivpb -) 100 mls @ 100 mls/hr IVPB DAILY [facility] Last Admin: 01/13/20 09:58 Dose: 100 mls/hr Piperacillin Sod/Tazobactam (Sod 4.5 gm/ Dextrose) 100 mls @ 200 mls/hr IVPB Q8H-IV [facility]; Protocol Last Admin: 01/14/20 02:39 Dose: 200 mls/hr Potassium Chloride 60 meq/Potassium Phosphate 20 mm/Sodium Chloride 60 meq/ Magnesium Sulfate 0.98 gm/Folic Acid 1 mg/ Multivitamins /Minerals 10 ml/ Sterile Water / Amino Acids/ Dextrose 1,000 mls @ 41.667 mls/hr IVPB DAILY@ 1600 [facility] Last Admin: 01/13/20 17:30 Dose: 41.667 mls/hr Insulin Aspart (Novolog Vial Sliding Scale -) 1 vial SQ ACHS [facility]; Protocol Last Admin: 01/14/20 06:20 Dose: Not Given Latanoprost (Xalatan 0.005% Eye Drops -) 1 drop OU HS [facility] Last Admin: 01/13/20 21:12 Dose: 1 drop Lidocaine (Lidoderm Patch -) 1 patch TP DAILY [facility] Last Admin: 01/13/20 10:00 Dose: 1 patch Methimazole (Tapazole -) 10 mg PO BID [facility] Last Admin: 01/13/20 21:11 Dose: 10 mg Metoprolol Tartrate (Lopressor -) 25 mg PO BID [facility] Miscellaneous (Lidoderm Patch Removal) 1 each MC DAILY@2200 [facility] Last Admin: 01/13/20 21:11 Dose: 1 each Octreotide Acetate (Sandostatin -) 100 mcg SQ TID [facility] Stop: 01/19/20 10:00 Pantoprazole Sodium (Protonix Iv) 40 mg IVPUSH BID [facility] Last Admin: 01/13/20 21:11 Dose: 40 mg Timolol Maleate (Timoptic 0.5%) 1 drop OU BID [facility] Last Admin: 01/13/20 21:11 Dose: 1 drop Gen: NAD at rest Heart: NSR, S1S2, no murmurs Lung: clear to auscultation bilaterally, decreased bases, Abd: soft, nontender, feculent drainage from fistula Ext: no edema, left great toe cold to touch with bluish discoloration Laboratory Results - last 24 hr 01/13/20 01/13/20 01/13/20 12:10 17:18 21:25 WBC RBC Hgb Hct MCV MCH MCHC RDW Plt Count MPV Absolute Neuts (auto) Neutrophils % Lymphocytes % Monocytes % Eosinophils % Basophils % Nucleated RBC % Sodium Potassium Chloride Carbon Dioxide Anion Gap BUN Creatinine Est GFR (CKD-EPI)AfAm Est GFR (CKD-EPI)NonAf POC Glucometer 113 64 101 Random Glucose Calcium Total Bilirubin AST ALT Alkaline Phosphatase Total Protein Albumin Crossmatch 01/14/20 01/14/20 01/14/20 05:00 05:00 06:19 WBC 4.9 RBC 2.50 L Hgb 7.6 L Hct 22.8 L MCV 91.1 MCH 30.4 MCHC 33.4 RDW 17.7 H Plt Count 272 MPV 6.8 L Absolute Neuts (auto) 2.7 Neutrophils % 53.9 Lymphocytes % 28.6 Monocytes % 11.5 H Eosinophils % 5.4 H Basophils % 0.6 Nucleated RBC % 0 Sodium 141 Potassium 4.2 Chloride 110 H Carbon Dioxide 29 Anion Gap 3 L BUN 13.0 Creatinine 0.5 L Est GFR (CKD-EPI)AfAm 103.73 Est GFR (CKD-EPI)NonAf 89.50 POC Glucometer 93 Random Glucose 90 Calcium 7.6 L Total Bilirubin 0.2 AST 10 L ALT 7 L Alkaline Phosphatase 87 Total Protein 3.6 L Albumin 1.1 L Crossmatch 01/14/20 11:20 WBC RBC Hgb Hct MCV MCH MCHC RDW Plt Count MPV Absolute Neuts (auto) Neutrophils % Lymphocytes % Monocytes % Eosinophils % Basophils % Nucleated RBC % Sodium Potassium Chloride Carbon Dioxide Anion Gap BUN Creatinine Est GFR (CKD-EPI)AfAm Est GFR (CKD-EPI)NonAf POC Glucometer Random Glucose Calcium Total Bilirubin AST ALT Alkaline Phosphatase Total Protein Albumin Crossmatch See Detail ASSESSMENT/PLAN: Subcutaneous Abscess Enterocutaneous Fisulta h/o Colon Ca s/p Hemicolectomy/Hernia Repair 10/09 Septic Shock (resolved) Lactic Acidosis Atrial Fibrillation LV Diastolic Dysfunction HTN DM Hyperthyroidism Anemia POD #3 ex lap/Alvarado - ABX per ID - f/u on cultures - Wean and taper TPN - PO per surgery - Eliquis - PPI ppx - Insulin coverage - Floor Dr Paez
[2020-01-14] MEDS: FLUTICASONE PROP 0.05% 16 GM NASAL SPRAY NS SCH ×2 (12:08→21:41)
[2020-01-14] MEDS: LIDOCAINE 5% TOPICAL PATCH TP SCH (12:54)
[2020-01-14] MEDS: OCTREOTIDE ACETATE 100 MCG/1 ML SQ SCH ×3 (12:55→23:01)
[2020-01-14] MEDS: TIMOLOL 0.5% OPHTHALMIC SOL 5 ML BOTTLE OU SCH ×2 (12:55→21:37)
[2020-01-14] MEDS: METHIMAZOLE 10 MG TABLET (FP) PO SCH ×2 (12:55→21:39)
[2020-01-14] MEDS ORDERED: [UNRECOGNIZED DRUG - OTHER] IVPB SCH (20:40)
[2020-01-14] MEDS ORDERED: SODIUM CHLORIDE IVPB SCH (20:40)
[2020-01-14] MEDS ORDERED: POTASSIUM CHLORIDE IVPB SCH (20:40)
[2020-01-14] MEDS ORDERED: POTASSIUM PHOSPHATE IVPB SCH (20:40)
[2020-01-14] MEDS: LATANOPROST 0.005% OPHTH SOLN 2.5ML BOTTLE OU SCH (21:35)
[2020-01-14] MEDS: CHLORHEXIDINE GLUCONATE 4% CLEANSER FOR DECOLONIZATION TP SCH (21:39)
[2020-01-14] MEDS: LIDOCAINE PATCH REMOVAL MC SCH (22:01)
[2020-01-15] MEDS ORDERED: DEXTROSE 5%-WATER 100 ML IVPB ONE ×3 (02:40→17:11)
[2020-01-15] MEDS ORDERED: PIPERACILLIN/TAZOBACTAM 4.5 GM VIAL IVPB ONE ×3 (02:40→17:10)
[2020-01-15] MEDS: PIPERACILLIN/TAZOB 4.5 GM 4.5 GM in DEXTROSE 5%-WATER 100 ML IVPB SCH ×3 (02:47→17:37)
[2020-01-15] MEDS: OCTREOTIDE ACETATE 100 MCG/1 ML SQ SCH ×3 (05:41→22:45)
--- NOTE | 2020-01-15 06:32 | PN ---
Progress Note (short form) - Note Progress Note: Chief Complaint: Events noted, notes reviewed, resting in bed comfortably family member at the bedside, denies any chest pain, remains in atrial fibrillation rate controlled History of Present Illness: Seen and examined in the ICU. Events noted, notes reviewed, resting in bed comfortably family member at the bedside, denies any chest pain, remains in atrial fibrillation rate controlled Post transfusion, Eliquis D/C no evidence of active bleed - Current Medication List Current Medications Acetaminophen (Tylenol -) 650 mg PO Q6H PRN PRN Reason: PAIN LEVEL 1-5 Albuterol Sulfate (Ventolin 0.083% Nebulizer Soln -) 1 amp NEB Q6H PRN PRN Reason: SHORT OF BREATH/WHEEZING Brimonidine Tartrate (Alphagan 0.2% -) 1 drop OU BID [facility]AN[facility] Last Admin: 01/14/20 21:36 Dose: 1 drop Chlorhexidine Gluconate (Hibiclens For Decolonization -) 1 applic TP HS [facility] Last Admin: 01/14/20 21:39 Dose: 1 applic Fluticasone Propionate (Flonase -) 1 spray NS BID [facility]AN[facility] Last Admin: 01/14/20 21:41 Dose: 1 spray Hydromorphone HCl (Dilaudid Vial -) 0.5 mg IVPUSH Q3H PRN PRN Reason: PAIN LEVEL 1-5 Fluconazole (Diflucan 200 Mg/Ns Premixed Ivpb -) 100 mls @ 100 mls/hr IVPB DAILY [facility] Last Admin: 01/14/20 11:00 Dose: 100 mls/hr Piperacillin Sod/Tazobactam (Sod 4.5 gm/ Dextrose) 100 mls @ 200 mls/hr IVPB Q8H-IV S[facility]KAN[facility]; Protocol Last Admin: 01/15/20 02:47 Dose: 200 mls/hr Insulin Aspart (Novolog Vial Sliding Scale -) 1 vial SQ ACHS S[facility]KAN[facility]; Protocol Last Admin: 01/14/20 22:02 Dose: Not Given Latanoprost (Xalatan 0.005% Eye Drops -) 1 drop OU HS [facility] Last Admin: 01/14/20 21:35 Dose: 1 drop Lidocaine (Lidoderm Patch -) 1 patch TP DAILY [facility] Last Admin: 01/14/20 12:54 Dose: 1 patch Methimazole (Tapazole -) 10 mg PO BID [facility] Last Admin: 01/14/20 21:39 Dose: 10 mg Metoprolol Tartrate (Lopressor -) 25 mg PO BID [facility] Last Admin: 01/14/20 21:45 Dose: 25 mg Miscellaneous (Lidoderm Patch Removal) 1 each MC DAILY@2200 [facility] Last Admin: 01/14/20 22:01 Dose: 1 each Octreotide Acetate (Sandostatin -) 100 mcg SQ TID [facility] Stop: 01/19/20 10:00 Last Admin: 01/15/20 05:41 Dose: 100 mcg Pantoprazole Sodium (Protonix Iv) 40 mg IVPUSH BID [facility] Last Admin: 01/14/20 21:39 Dose: 40 mg Timolol Maleate (Timoptic 0.5%) 1 drop OU BID [facility] Last Admin: 01/14/20 21:37 Dose: 1 drop Review of Systems Constitutional: denies: Chills or Fever Cardiovascular: as noted above Respiratory: denies: Cough Gastrointestinal: denies: Nausea, Vomiting, Diarrhea, Constipation Genitourinary: denies: Dysuria Musculoskeletal: denies: Joint Pain Neurological: denies: Dizziness or Headache - Objective Vital Signs: Last Vital Signs Temp Pulse Resp BP Pulse Ox 98.9 F 60 16 117/74 100 01/15/20 05:00 01/15/20 05:00 01/15/20 05:00 01/15/20 05:00 01/14/20 21:00 Intake & Output 01/12/20 01/13/20 01/14/20 01/15/20 23:59 23:59 23:59 23:59 Intake Total 3770 3344 2242 400 Output Total 300 1100 1500 Balance 3470 2244 742 400 Weight 167 lb 12.348 oz 165 lb 14.4 oz 165 lb 166 lb 7.184 oz Neck: Supple Negative JVD No Bruit Respiratory: Scattered Rhonchi Bilaterally Cardiovascular: S1 S2 Irregularly Irregular Gastrointestinal: Soft Benign Normal Bowel Sounds Ext: Edema Labs: CBC, BMP 01/15/20 05:23 01/15/20 05:23 Hepatic Panel Total Bilirubin 0.2 mg/dL (0.2-1) 01/14/20 05:00 AST 10 U/L (15-37) L 01/14/20 05:00 ALT 7 U/L (13-61) L 01/14/20 05:00 Alkaline Phosphatase 87 U/L (45-117) 01/14/20 05:00 Albumin 1.1 g/dl (3.4-5.0) L 01/14/20 05:00 INR, PTT INR 1.35 (0.83-1.09) H 01/11/20 06:00 ABG Results ABG pH 7.42 (7.35-7.45) 01/08/20 20:45 ABG pCO2 at Pt Temp 35.4 mmHg (35-45) 01/08/20 20:45 ABG pO2 at Pt Temp 125 mmHg (80-100) H 01/08/20 20:45 ABG HCO3 22.7 mmol/L (22-27) 01/08/20 20:45 ABG O2 Sat (Measured) 98.2 % (95-98) H 01/08/20 20:45 ABG O2 Content 19.7 % vol 01/08/20 20:45 ABG Base Excess -0.6 meq/l (-2-2) 01/08/20 20:45 Assessment/Plan ASSESSMENT: 1. Subcutaneous Abscesses, Enterocutaneous Fistula post I&D complicated by sepsis shock/syndrome, resolved sepsis 2. Post abdominal hernia repair complicated by small bowel resection and mesh placement, post IR drainage of an abscess 3. Persistent atrial Fibrillation rate controlled [id number] score of 5 on no A /C therapy 4. Diastolic LV dysfunction with clinical class 0 NYHA classification LV failure 5. HTN 6. DM 7. Hyperthyroidism 8. Acute renal insufficiency, resolved 9. Anemia 10. History of cervical carcinoma post resection 11. History of colon carcinoma post javi-colectomy PLAN: 1. Continue Lopressor, hemodynamics permitting 2. Recommend resumption of Cozaar therapy, hemodynamics permitting 3. Utilize Lasix as needed 4. Recommend the resumption of A/C with DOAC's/Eliquis considering the above noted [id number] score of 5 unless it is absolutely contraindicated or additional procedures are planned or active bleed is noted (no documentation in reference to D/C Eliquis), with caution and close monitoring of Hg level, transfuse as needed to maintain Hg equal or > 8.0 5. Antibiotics/anti-fungal as per the primary team Meron Perera M.D.
[2020-01-15 06:39] LABS: BASO % 1.3 % (0-2.0); EOS % 8.8 % (0-4.5); HEMATOCRIT 30.3 % (32.4-45.2); HEMOGLOBIN 10.3 GM/dL (10.7-15.3); LYMPH % 24.6 % (8-40); MCH 30.1 pg (25.7-33.7); MEAN CELL VOLUME 88.5 fl (80-96); MONO % 9.6 % (3.8-10.2); NEUT % 55.7 % (42.8-82.8); PLATELET COUNT 251 K/MM3 (134-434); RBC 3.43 M/mm3 (3.60-5.2); RDW 17.5 % (11.6-15.6); WHITE BLOOD COUNT 5.3 K/mm3 (4.0-10.0)
[2020-01-15 06:44] LABS: BLOOD UREA NITROGEN 14.6 mg/dL (7-18); CALCIUM 8.1 mg/dL (8.5-10.1); CREATININE 0.5 mg/dL (0.55-1.3); MAGNESIUM 1.9 mg/dL (1.8-2.4); PHOSPHOROUS 3.2 mg/dL (2.5-4.9); POTASSIUM 4.4 mmol/L (3.5-5.1)
[2020-01-15] MEDS: INSULIN SLIDING SCALE (NOVOLOG) 1 VIAL SQ SCH ×4 (06:44→21:19)
[2020-01-15] MEDS ORDERED: PT OWN MED DRAWER 7, Y5N ONE ×3 (07:44→22:54)
[2020-01-15] MEDS ORDERED: MAGNESIUM CL 64 MG TABLET.SA PO ONE ×2 (08:00→12:26)
--- NOTE | 2020-01-15 08:41 | PN ---
Progress Note (short form) - Note Progress Note: General Surgery: Vital Signs Period Temp Pulse Resp BP Sys/Ugarte Pulse Ox Last 24 Hr 98.2 F-99.0 F 60-87 14-20 108-134/61-83 100-100 GEN: Alert ABD: Incision C/D/I with lucius. Fistula at inferior aspect with ostomy bag, minimal drainage LE: no calf tenderness b/l CBC, BMP 01/15/20 05:23 01/15/20 05:23 A/p: 84 yo female s/p wound exploration/washout for enterocutaneous fistula Advance diet to low residual diet Continue octreotide SQ TID Local wound care with ostomy at base, track fistula outpt every 8 hours D/w Dr. Alvarado
[2020-01-15] MEDS: LIDOCAINE 5% TOPICAL PATCH TP SCH (09:34)
[2020-01-15] MEDS: FLUTICASONE PROP 0.05% 16 GM NASAL SPRAY NS SCH ×2 (09:34→21:41)
[2020-01-15] MEDS: BRIMONIDINE TARTRATE 0.2% OPHTHALMIC 5 ML BOTTLE OU SCH ×2 (09:34→21:40)
[2020-01-15] MEDS: FLUCONAZOLE 200 MG/NS 100 ML IVPB SCH (09:34)
[2020-01-15] MEDS: METHIMAZOLE 10 MG TABLET (FP) PO SCH ×2 (09:35→22:45)
[2020-01-15] MEDS: TIMOLOL 0.5% OPHTHALMIC SOL 5 ML BOTTLE OU SCH ×2 (09:35→21:39)
[2020-01-15] MEDS: PANTOPRAZOLE SODIUM 40 MG VIAL IVPUSH SCH ×2 (09:35→21:37)
[2020-01-15] MEDS: METOPROLOL TARTRATE 25 MG TABLET (FP) PO SCH (09:35)
[2020-01-15] MEDS ORDERED: APIXABAN 5 MG TABLET PO SCH ×2 (10:00)
--- NOTE | 2020-01-15 11:18 | PN ---
Physical Exam: SUBJECTIVE: Patient seen and examined O/N: Eliquis held to r/o blood-loss anemia. Received pRBCs OBJECTIVE: Vital Signs Period Temp Pulse Resp BP Sys/Ugarte Pulse Ox Last 24 Hr 97.4 F-99.0 F 60-82 14-20 108-134/61-83 100-100 GENERAL: Drowsy, but arousable, oriented to person and place, in no acute distress. HEAD: Normal with no signs of trauma. EYES: sclera anicteric and w/ mild pallor, conjunctiva clear. No lid lag. EARS, NOSE, THROAT: Ears normal, nares patent, oropharynx clear without exudates. Moist mucous membranes. NECK: Normal range of motion, supple without lymphadenopathy, JVD, or masses. LIJ in place with no erythema. LUNGS: Breath sounds equal, clear to auscultation bilaterally. No wheezes, and no crackles. No accessory muscle use. HEART: Irregular rate and rhythm, normal S1 and S2 without murmur, rub or gallop. ABDOMEN: Soft, diffusely tender, normoactive bowel sounds, no guarding. Two 1cm midline fistulas. Osotomy appliance over enterocutaneous fistula. Tolley in place over midline wound EXTREMITIES: 2+ pulses, no edema. R 1st toe cold to touch with mild dusky coloration. NEUROLOGICAL: Normal speech, gait not observed. Chronic resting tremors SKIN: Warm, dry, normal turgor, no rashes or lesions noted Laboratory Results - last 24 hr 01/14/20 01/14/20 01/14/20 11:20 13:37 18:00 WBC RBC Hgb Hct MCV MCH MCHC RDW Plt Count MPV Absolute Neuts (auto) Neutrophils % Lymphocytes % Monocytes % Eosinophils % Basophils % Nucleated RBC % Sodium Potassium Chloride Carbon Dioxide Anion Gap BUN Creatinine Est GFR (CKD-EPI)AfAm Est GFR (CKD-EPI)NonAf POC Glucometer 107 126 Random Glucose Calcium Phosphorus Magnesium Blood Type O POSITIVE Antibody Screen Negative Crossmatch See Detail 01/14/20 01/15/20 01/15/20 21:57 03:37 04:05 WBC RBC Hgb Hct MCV MCH MCHC RDW Plt Count MPV Absolute Neuts (auto) Neutrophils % Lymphocytes % Monocytes % Eosinophils % Basophils % Nucleated RBC % Sodium Potassium Chloride Carbon Dioxide Anion Gap BUN Creatinine Est GFR (CKD-EPI)AfAm Est GFR (CKD-EPI)NonAf POC Glucometer 103 78 88 Random Glucose Calcium Phosphorus Magnesium Blood Type Antibody Screen Crossmatch 01/15/20 01/15/20 01/15/20 05:23 05:23 05:26 WBC 5.3 RBC 3.43 L Hgb 10.3 L Hct 30.3 L D MCV 88.5 MCH 30.1 MCHC 34.0 RDW 17.5 H Plt Count 251 MPV 7.0 L Absolute Neuts (auto) 2.9 Neutrophils % 55.7 Lymphocytes % 24.6 Monocytes % 9.6 Eosinophils % 8.8 H Basophils % 1.3 Nucleated RBC % 0 Sodium 137 Potassium 4.4 Chloride 105 Carbon Dioxide 27 Anion Gap 5 L BUN 14.6 Creatinine 0.5 L Est GFR (CKD-EPI)AfAm 103.73 Est GFR (CKD-EPI)NonAf 89.50 POC Glucometer 82 Random Glucose 106 Calcium 8.1 L Phosphorus 3.2 Magnesium 1.9 Blood Type Antibody Screen Crossmatch 01/15/20 01/15/20 01/15/20 06:37 08:20 09:52 WBC RBC Hgb Hct MCV MCH MCHC RDW Plt Count MPV Absolute Neuts (auto) Neutrophils % Lymphocytes % Monocytes % Eosinophils % Basophils % Nucleated RBC % Sodium Potassium Chloride Carbon Dioxide Anion Gap BUN Creatinine Est GFR (CKD-EPI)AfAm Est GFR (CKD-EPI)NonAf POC Glucometer 91 74 103 Random Glucose Calcium Phosphorus Magnesium Blood Type Antibody Screen Crossmatch Active Medications Generic Name Dose Route Start Last Admin Trade Name Freq PRN Reason Stop Dose Admin Acetaminophen 650 mg 01/12/20 07:43 Tylenol - PO Q6H PRN PAIN LEVEL 1-5 Albuterol Sulfate 1 amp 01/12/20 07:43 Ventolin 0.083% Nebulizer Soln - NEB Q6H PRN SHORT OF BREATH/WHEEZING Apixaban 5 mg 01/15/20 10:00 01/15/20 09:34 Eliquis - PO 5 mg BID SRIKANTH Administration Brimonidine Tartrate 1 drop 01/12/20 10:00 01/15/20 09:34 Alphagan 0.2% - OU 1 drop BID SRI[facility]ANTH Administration Chlorhexidine Gluconate 1 applic 01/12/20 22:00 01/14/20 21:39 Hibiclens For Decolonization - TP 1 applic HS [facility]ANTH Administration Fluticasone Propionate 1 spray 01/12/20 10:00 01/15/20 09:34 Flonase - NS 1 spray BID S[facility]AN[facility] Administration Fluconazole 100 mls @ 100 mls/hr 01/12/20 10:00 01/15/20 09:34 Diflucan 200 Mg/Ns Premixed Ivpb - IVPB 100 mls/hr DAILY [facility] Administration Piperacillin Sod/Tazobactam 100 mls @ 200 mls/hr 01/12/20 10:00 01/15/20 09: 35 Sod 4.5 gm/ Dextrose IVPB 200 mls/hr Q8H-IV S[facility]ANTH Administration Protocol Insulin Aspart 1 vial 01/12/20 11:00 01/15/20 06:44 Novolog Vial Sliding Scale - SQ Not Given ACHS SRIKANTH Protocol Latanoprost 1 drop 01/12/20 22:00 01/14/20 21:35 Xalatan 0.005% Eye Drops - OU 1 drop HS [facility] Administration Lidocaine 1 patch 01/12/20 10:30 01/15/20 09:34 Lidoderm Patch - TP 1 patch DAILY [facility] Administration Methimazole 10 mg 01/12/20 10:00 01/15/20 09:35 Tapazole - PO 10 mg BID S[facility]AN[facility] Administration Metoprolol Tartrate 25 mg 01/14/20 10:00 01/15/20 09:35 Lopressor - PO 25 mg BID S[facility]AN[facility] Administration Miscellaneous 1 each 01/12/20 22:00 01/14/20 22:01 Lidoderm Patch Removal MC 1 each DAILY@2200 [facility] Administration Octreotide Acetate 100 mcg 01/14/20 10:00 01/15/20 05:41 Sandostatin - SQ 01/19/20 10:00 100 mcg TID [facility]AN[facility] Administration Pantoprazole Sodium 40 mg 01/12/20 10:00 01/15/20 09:35 Protonix Iv IVPUSH 40 mg BID S[facility]AN[facility] Administration Timolol Maleate 1 drop 01/12/20 10:00 01/15/20 09:35 Timoptic 0.5% OU 1 drop BID S[facility]AN[facility] Administration ASSESSMENT/PLAN: 84 year old female with PMH of anemia (prior transfusions required), A. fib (on eliquis), CHF (EF55-60%), IDDM, HTN, DJD, hyperthyroidism, obesity, resting tremors, lipidemia, colon cancer s/p hemicolectomy, hernia repair in 10/09 complicated by enerocutaneous fistula and prolonged hospitalization (discharged 11/07/19 after abdominal wall collection drained by IR and growing VRE), presenting from home with hypotension. Admitted to the ICU for sepsis. Neuro -Arousable and oriented x2 -Hx of chronic resting tremors Cardiovascular -LIJ placed 01/08/20 --> removed on 01/15/20 -off vasopressors, over 24hs -Closely monitor hemodynamics -Hx of Afib (on eliquis), CHF, HTN -Restarted eliquis -Hold anti-hypertensives until hemodynamically stable -Can start IV lopressor if needed for rate control -Cardio following (Dr. Guadarrama) --restart A/C d/t CHADVASC 5 -Vascular consulted (Dr. Javier) as pt is complainding of R toe discomfort. Toe was cool and dusky in color. Pulmonary -CXR: no infiltrates -No acute problems GI -Hx of colon CA s/p hemicolectomy, hernia repair complicated by enterocutaneous fistulas and abd wall abscess (w/VRE) -Fistulas draining malodorous feces, likely source of infection -POD#4 abdominal wound exploration (Dr. Alvarado) -IV abx as per ID -CTAP: interval enlargement of several fluid collections consistent w/abscesses abutting ant aspect of abd wall musculature. Diffuse gastric wall thickening suggestive of edema and acute gastritis. 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 Harris): --dc zyvox, cw zosyn + diflucan -Urine cx: pseudomonas, resistant to gentamicin -Blood cx: NGTD -body fluid(operative) cx: Ecoli, yeast, alpha-hemolytic strept Renal -UTI possible source of sepsis -UA: 2+ LE, 67 WBC -Cont IV abx -Monitor on I's & O's -Monitor BMP Heme -Hx of normocytic anemia -Cont to monitor CBC -FOBT neg Endo -Hx of hyperthyroidism and DM -ISS and BGM TIDAC -Cont home methimazole 10mg BID DVT ppx -Restarted home eliquis FEN -D/c fluids -Monitor lytes and replete prn -low residue diet w/ Ensure Dispo: Pt stable for transfer to [facility]-Surg Visit type - Emergency Visit Emergency Visit: No - New Patient This patient is new to me today: No - Critical Care Critical Care patient: No Total Critical Care Time (in minutes): 35 Critical Care Statement: The care of this patient involved high complexity decision making to prevent further life threatening deterioration of the patient 's condition and/or to evaluate & treat vital organ system(s) failure or risk of failure. ATTENDING PHYSICIAN STATEMENT I saw and evaluated the patient. I reviewed the resident's note and discussed the case with the resident. I agree with the resident's findings and plan as documented. SUBJECTIVE: OBJECTIVE: ASSESSMENT AND PLAN:
--- NOTE | 2020-01-15 11:28 | PN ---
Teaching Attending Note Name of Resident: Tomasz Kelley ATTENDING PHYSICIAN STATEMENT I saw and evaluated the patient. I reviewed the resident's note and discussed the case with the resident. I agree with the resident's findings and plan as documented. SUBJECTIVE: Patient seen and examined in the ICU. Awake and alert. Denies CP or SOB. Denies abdominal pain. Tolerated clear liquids this AM. Intake & Output 01/12/20 01/13/20 01/14/20 01/15/20 23:59 23:59 23:59 23:59 Intake Total 3770 3344 2242 400 Output Total 300 1100 1500 Balance 3470 2244 742 400 Weight 167 lb 12.348 oz 165 lb 14.4 oz 165 lb 166 lb 7.184 oz Last Vital Signs Temp Pulse Resp BP Pulse Ox 97.4 F L 71 14 125/69 100 01/15/20 10:00 01/15/20 10:00 01/15/20 10:00 01/15/20 10:00 01/15/20 09:00 Active Medications Acetaminophen (Tylenol -) 650 mg PO Q6H PRN PRN Reason: PAIN LEVEL 1-5 Albuterol Sulfate (Ventolin 0.083% Nebulizer Soln -) 1 amp NEB Q6H PRN PRN Reason: SHORT OF BREATH/WHEEZING Apixaban (Eliquis -) 5 mg PO BID [facility] Last Admin: 01/15/20 09:34 Dose: 5 mg Brimonidine Tartrate (Alphagan 0.2% -) 1 drop OU BID [facility] Last Admin: 01/15/20 09:34 Dose: 1 drop Chlorhexidine Gluconate (Hibiclens For Decolonization -) 1 applic TP HS [facility] Last Admin: 01/14/20 21:39 Dose: 1 applic Fluticasone Propionate (Flonase -) 1 spray NS BID [facility] Last Admin: 01/15/20 09:34 Dose: 1 spray Fluconazole (Diflucan 200 Mg/Ns Premixed Ivpb -) 100 mls @ 100 mls/hr IVPB DAILY [facility] Last Admin: 01/15/20 09:34 Dose: 100 mls/hr Piperacillin Sod/Tazobactam (Sod 4.5 gm/ Dextrose) 100 mls @ 200 mls/hr IVPB Q8H-IV [facility]; Protocol Last Admin: 01/15/20 09:35 Dose: 200 mls/hr Insulin Aspart (Novolog Vial Sliding Scale -) 1 vial SQ ACHS [facility]; Protocol Last Admin: 01/15/20 06:44 Dose: Not Given Latanoprost (Xalatan 0.005% Eye Drops -) 1 drop OU HS [facility] Last Admin: 01/14/20 21:35 Dose: 1 drop Lidocaine (Lidoderm Patch -) 1 patch TP DAILY [facility] Last Admin: 01/15/20 09:34 Dose: 1 patch Methimazole (Tapazole -) 10 mg PO BID [facility] Last Admin: 01/15/20 09:35 Dose: 10 mg Metoprolol Tartrate (Lopressor -) 25 mg PO BID [facility] Last Admin: 01/15/20 09:35 Dose: 25 mg Miscellaneous (Lidoderm Patch Removal) 1 each MC DAILY@2200 [facility] Last Admin: 01/14/20 22:01 Dose: 1 each Octreotide Acetate (Sandostatin -) 100 mcg SQ TID [facility] Stop: 01/19/20 10:00 Last Admin: 01/15/20 05:41 Dose: 100 mcg Pantoprazole Sodium (Protonix Iv) 40 mg IVPUSH BID [facility] Last Admin: 01/15/20 09:35 Dose: 40 mg Timolol Maleate (Timoptic 0.5%) 1 drop OU BID [facility] Last Admin: 01/15/20 09:35 Dose: 1 drop Gen: NAD at rest Heart: NSR, S1S2, no murmurs Lung: clear to auscultation bilaterally, decreased bases, Abd: soft, nontender, feculent drainage from fistula Ext: no edema, left great toe cold to touch Laboratory Results - last 24 hr 01/14/20 01/14/20 01/14/20 11:20 13:37 18:00 WBC RBC Hgb Hct MCV MCH MCHC RDW Plt Count MPV Absolute Neuts (auto) Neutrophils % Lymphocytes % Monocytes % Eosinophils % Basophils % Nucleated RBC % Sodium Potassium Chloride Carbon Dioxide Anion Gap BUN Creatinine Est GFR (CKD-EPI)AfAm Est GFR (CKD-EPI)NonAf POC Glucometer 107 126 Random Glucose Calcium Phosphorus Magnesium Blood Type O POSITIVE Antibody Screen Negative Crossmatch See Detail 01/14/20 01/15/20 01/15/20 21:57 03:37 04:05 WBC RBC Hgb Hct MCV MCH MCHC RDW Plt Count MPV Absolute Neuts (auto) Neutrophils % Lymphocytes % Monocytes % Eosinophils % Basophils % Nucleated RBC % Sodium Potassium Chloride Carbon Dioxide Anion Gap BUN Creatinine Est GFR (CKD-EPI)AfAm Est GFR (CKD-EPI)NonAf POC Glucometer 103 78 88 Random Glucose Calcium Phosphorus Magnesium Blood Type Antibody Screen Crossmatch 01/15/20 01/15/20 01/15/20 05:23 05:23 05:26 WBC 5.3 RBC 3.43 L Hgb 10.3 L Hct 30.3 L D MCV 88.5 MCH 30.1 MCHC 34.0 RDW 17.5 H Plt Count 251 MPV 7.0 L Absolute Neuts (auto) 2.9 Neutrophils % 55.7 Lymphocytes % 24.6 Monocytes % 9.6 Eosinophils % 8.8 H Basophils % 1.3 Nucleated RBC % 0 Sodium 137 Potassium 4.4 Chloride 105 Carbon Dioxide 27 Anion Gap 5 L BUN 14.6 Creatinine 0.5 L Est GFR (CKD-EPI)AfAm 103.73 Est GFR (CKD-EPI)NonAf 89.50 POC Glucometer 82 Random Glucose 106 Calcium 8.1 L Phosphorus 3.2 Magnesium 1.9 Blood Type Antibody Screen Crossmatch 01/15/20 01/15/20 01/15/20 06:37 08:20 09:52 WBC RBC Hgb Hct MCV MCH MCHC RDW Plt Count MPV Absolute Neuts (auto) Neutrophils % Lymphocytes % Monocytes % Eosinophils % Basophils % Nucleated RBC % Sodium Potassium Chloride Carbon Dioxide Anion Gap BUN Creatinine Est GFR (CKD-EPI)AfAm Est GFR (CKD-EPI)NonAf POC Glucometer 91 74 103 Random Glucose Calcium Phosphorus Magnesium Blood Type Antibody Screen Crossmatch ASSESSMENT/PLAN: Subcutaneous Abscess Enterocutaneous Fisulta h/o Colon Ca s/p Hemicolectomy/Hernia Repair 10/09 Septic Shock (resolved) Lactic Acidosis Atrial Fibrillation LV Diastolic Dysfunction HTN DM Hyperthyroidism Anemia POD #3 ex lap/Alvarado - ABX per ID - Elemental feeds - Monitor off TPN - PO per surgery - Eliquis - PPI ppx - Insulin coverage - Floor Dr Paez
--- NOTE | 2020-01-15 12:19 | SURG ---
Surgery Waste Picker Note Waste Picker: Michele Burleson PA-C Date of Service: 01/11/20 Diagnosis: abdominal wound collection; r/o enterocutaneous fistula Procedure: wound exploration I was present for the entirety of the operative procedure. For further detail, please refer to operative report. Visit type - Case Type Case Type: ED Admission - Emergency Emergency Visit: Yes ED Registration Date: 01/08/20 Care time: The patient presented to the Emergency Department on the above date and was hospitalized for further evaluation of their emergent condition. - New patient This patient is new to me today: No - Critical Care Critical Care patient: No
[2020-01-15] MEDS ORDERED: LIDOCAINE PATCH REMOVAL MC SCH (12:26)
[2020-01-15] MEDS ORDERED: ALBUTEROL SO4 0.083% IH SOL 2.5 MG/3 ML VIAL.NEB. NEB PRN (12:26)
--- NOTE | 2020-01-15 14:37 | PN ---
Progress Note, Physician Chief Complaint: awake alert NAD daughter at bedside hungry; no pain - Current Medication List Current Medications: Active Medications Acetaminophen (Tylenol -) 650 mg PO Q6H PRN PRN Reason: PAIN LEVEL 1-5 Albuterol Sulfate (Ventolin 0.083% Nebulizer Soln -) 1 amp NEB Q6H PRN PRN Reason: SHORT OF BREATH/WHEEZING Apixaban (Eliquis -) 5 mg PO BID [facility] Brimonidine Tartrate (Alphagan 0.2% -) 1 drop OU BID [facility] Fluticasone Propionate (Flonase -) 1 spray NS BID [facility] Fluconazole (Diflucan 200 Mg/Ns Premixed Ivpb -) 100 mls @ 100 mls/hr IVPB DAILY [facility] Piperacillin Sod/Tazobactam (Sod 4.5 gm/ Dextrose) 100 mls @ 200 mls/hr IVPB Q8H-IV [facility]; Protocol Insulin Aspart (Novolog Vial Sliding Scale -) 1 vial SQ ACHS [facility]; Protocol Latanoprost (Xalatan 0.005% Eye Drops -) 1 drop OU HS [facility] Lidocaine (Lidoderm Patch -) 1 patch TP DAILY [facility] Methimazole (Tapazole -) 10 mg PO BID [facility] Miscellaneous (Lidoderm Patch Removal) 1 each MC DAILY@2200 [facility] Octreotide Acetate (Sandostatin -) 100 mcg SQ TID [facility] Stop: 01/19/20 10:00 Pantoprazole Sodium (Protonix Iv) 40 mg IVPUSH BID [facility] Timolol Maleate (Timoptic 0.5%) 1 drop OU BID [facility]AN[facility] - Objective Vital Signs: Vital Signs Temperature 98 F 01/15/20 11:56 Pulse Rate 75 01/15/20 11:56 Respiratory Rate 18 01/15/20 11:56 Blood Pressure 116/74 01/15/20 11:56 O2 Sat by Pulse Oximetry (%) 100 01/15/20 09:00 Constitutional: Yes: No Distress Eyes: Yes: Conjunctiva Clear HENT: Yes: Atraumatic Neck: Yes: Supple Cardiovascular: No: Regular Rate and Rhythm Respiratory: Yes: Diminished Gastrointestinal: Yes: Soft, Other (bag) Musculoskeletal: No: Joint Stiffness, Joint Swelling Extremities: No: Cold, Cool, Cyanosis Edema: No Integumentary: No: Rash Neurological: Yes: Alert, Tremors ...Motor Strength: WNL Psychiatric: Yes: Alert. No: Agitated Labs: CBC, BMP 01/15/20 05:23 01/15/20 05:23 INR, PTT INR 1.35 (0.83-1.09) H 01/11/20 06:00 - ....Imaging Other: Report Reviewed Assessment/Plan 84-year-old female history of anemia, A. fib, diabetes, hypertension, lipidemia , colon cancer status post resection and hernia repair complicated by abdominal skin wall abscess and fistula admitted with hypotension, sepsis; anemia; no obvious bleeding s/p abdominal exploration surgery; BP stable broad spectrum IV ATB per ID ASHD AFib; cardiology f/u; eliquis po anemia sp transfusion PRBC f/u labs prognosis guarded surgery f/u abd wound f/u labs and cultures falls DVT aspiration decubs PFX d/w pt and staff
[2020-01-15] MEDS: APIXABAN 5 MG TABLET PO SCH (21:37)
[2020-01-15] MEDS: LATANOPROST 0.005% OPHTH SOLN 2.5ML BOTTLE OU SCH (21:39)
[2020-01-15] MEDS: LIDOCAINE PATCH REMOVAL MC SCH (21:44)
[2020-01-15] MEDS ORDERED: CHLORHEXIDINE GLUCONATE 4% CLEANSER FOR DECOLONIZATION TP SCH (22:00)
[2020-01-16] MEDS ORDERED: PIPERACILLIN/TAZOBACTAM 4.5 GM VIAL IVPB ONE ×3 (02:07→16:50)
[2020-01-16] MEDS ORDERED: DEXTROSE 5%-WATER 100 ML IVPB ONE ×3 (02:08→16:51)
[2020-01-16] MEDS: PIPERACILLIN/TAZOB 4.5 GM 4.5 GM in DEXTROSE 5%-WATER 100 ML IVPB SCH ×3 (02:44→17:08)
[2020-01-16] MEDS: INSULIN SLIDING SCALE (NOVOLOG) 1 VIAL SQ SCH ×4 (06:06→22:25)
[2020-01-16] MEDS: OCTREOTIDE ACETATE 100 MCG/1 ML SQ SCH ×3 (06:10→14:26)
[2020-01-16 06:38] LABS: HEMATOCRIT 31.9 % (32.4-45.2); HEMOGLOBIN 10.8 GM/dL (10.7-15.3); MCH 29.8 pg (25.7-33.7); MCHC 33.8 g/dl (32.0-36.0); MEAN CELL VOLUME 88.4 fl (80-96); MEAN PLT VOLUME 7.4 fl (7.5-11.1); PLATELET COUNT 241 K/MM3 (134-434); RBC 3.61 M/mm3 (3.60-5.2); RDW 16.8 % (11.6-15.6); WHITE BLOOD COUNT 4.9 K/mm3 (4.0-10.0)
--- NOTE | 2020-01-16 07:07 | PN ---
Progress Note, Physician Chief Complaint: awake alert NAD no pain - Current Medication List Current Medications: Active Medications Acetaminophen (Tylenol -) 650 mg PO Q6H PRN PRN Reason: PAIN LEVEL 1-5 Albuterol Sulfate (Ventolin 0.083% Nebulizer Soln -) 1 amp NEB Q6H PRN PRN Reason: SHORT OF BREATH/WHEEZING Apixaban (Eliquis -) 5 mg PO BID [facility] Last Admin: 01/15/20 21:37 Dose: 5 mg Brimonidine Tartrate (Alphagan 0.2% -) 1 drop OU BID [facility] Last Admin: 01/15/20 21:40 Dose: 1 drop Fluticasone Propionate (Flonase -) 1 spray NS BID [facility] Last Admin: 01/15/20 21:41 Dose: 1 spray Fluconazole (Diflucan 200 Mg/Ns Premixed Ivpb -) 100 mls @ 100 mls/hr IVPB DAILY [facility] Piperacillin Sod/Tazobactam (Sod 4.5 gm/ Dextrose) 100 mls @ 200 mls/hr IVPB Q8H-IV [facility]; Protocol Last Admin: 01/16/20 02:44 Dose: 200 mls/hr Insulin Aspart (Novolog Vial Sliding Scale -) 1 vial SQ ACHS [facility]; Protocol Last Admin: 01/16/20 06:06 Dose: Not Given Latanoprost (Xalatan 0.005% Eye Drops -) 1 drop OU HS [facility] Last Admin: 01/15/20 21:39 Dose: 1 drop Lidocaine (Lidoderm Patch -) 1 patch TP DAILY [facility] Methimazole (Tapazole -) 10 mg PO BID [facility] Last Admin: 01/15/20 22:45 Dose: 10 mg Miscellaneous (Lidoderm Patch Removal) 1 each MC DAILY@2200 [facility] Last Admin: 01/15/20 21:44 Dose: 1 each Octreotide Acetate (Sandostatin -) 100 mcg SQ TID [facility] Stop: 01/19/20 10:00 Last Admin: 01/16/20 06:14 Dose: Not Given Pantoprazole Sodium (Protonix Iv) 40 mg IVPUSH BID [facility] Last Admin: 01/15/20 21:37 Dose: 40 mg Timolol Maleate (Timoptic 0.5%) 1 drop OU BID [facility] Last Admin: 01/15/20 21:39 Dose: 1 drop - Objective Vital Signs: Vital Signs Temperature 98.4 F 01/15/20 22:54 Pulse Rate 87 01/15/20 22:54 Respiratory Rate 18 01/15/20 22:54 Blood Pressure 102/63 01/15/20 22:54 O2 Sat by Pulse Oximetry (%) 96 01/15/20 21:00 Constitutional: Yes: No Distress Eyes: Yes: Conjunctiva Clear HENT: Yes: Atraumatic Neck: Yes: Supple Cardiovascular: No: Regular Rate and Rhythm Respiratory: Yes: Diminished Gastrointestinal: Yes: Soft, Other (bag) Genitourinary: No: Hematuria Musculoskeletal: No: Joint Stiffness, Joint Swelling Extremities: No: Cold, Cool, Cyanosis Edema: No Integumentary: No: Rash, Venous Stasis Changes Neurological: Yes: Alert, Tremors ...Motor Strength: WNL Psychiatric: Yes: Alert Labs: INR, PTT INR 1.35 (0.83-1.09) H 01/11/20 06:00 - ....Imaging Other: Report Reviewed Assessment/Plan 84-year-old female history of anemia, A. fib, diabetes, hypertension, lipidemia , colon cancer status post resection and hernia repair complicated by abdominal skin wall abscess and fistula admitted with hypotension, sepsis; anemia; s/p abdominal exploration surgery; broad spectrum IV ATB per ID ASHD AFib; cardiology f/u; eliquis po anemia sp transfusion PRBC f/u labs prognosis guarded surgery f/u abd wound f/u labs and cultures falls DVT aspiration decubs PFX d/w pt and staff d.w pt's daughter
[2020-01-16 07:10] LABS: BLOOD UREA NITROGEN 10.9 mg/dL (7-18); CALCIUM 7.7 mg/dL (8.5-10.1); CREATININE 0.6 mg/dL (0.55-1.3); MAGNESIUM 1.8 mg/dL (1.8-2.4); PHOSPHOROUS 4.1 mg/dL (2.5-4.9); POTASSIUM 4.4 mmol/L (3.5-5.1)
--- NOTE | 2020-01-16 09:05 | PN ---
Progress Note (short form) - Note Progress Note: General Surgery: Family at bedside this am. She is tolerating a diet. Vital Signs Period Temp Pulse Resp BP Sys/Ugarte Pulse Ox Last 24 Hr 97.4 F-98.5 F 71-88 14-18 102-125/63-75 96 GEN: Alert ABD: Incision C/D/I with lucius. Fistula at inferior aspect with ostomy bag, minimal drainage. Light brown to yellowish color CBC, BMP 01/16/20 05:30 01/16/20 05:30 A/p: 84 yo female s/p wound exploration/washout for enterocutaneous fistula Diet low fiber Continue octreotide SQ TID Local wound care with ostomy at base, track fistula outpt every 8 hours. D/w nursing staff to record the outpt and place is osotomy column in the outpt section. D/w Dr. Alvarado
[2020-01-16] MEDS: METHIMAZOLE 10 MG TABLET (FP) PO SCH ×2 (10:23→22:26)
[2020-01-16] MEDS: PANTOPRAZOLE SODIUM 40 MG VIAL IVPUSH SCH ×2 (10:24→22:24)
[2020-01-16] MEDS: APIXABAN 5 MG TABLET PO SCH ×2 (10:26→22:25)
[2020-01-16] MEDS: BRIMONIDINE TARTRATE 0.2% OPHTHALMIC 5 ML BOTTLE OU SCH ×2 (10:27→22:27)
[2020-01-16] MEDS: TIMOLOL 0.5% OPHTHALMIC SOL 5 ML BOTTLE OU SCH ×2 (10:28→22:27)
[2020-01-16] MEDS: LIDOCAINE 5% TOPICAL PATCH TP SCH (10:28)
[2020-01-16] MEDS: FLUTICASONE PROP 0.05% 16 GM NASAL SPRAY NS SCH ×2 (10:28→22:27)
[2020-01-16] MEDS: FLUCONAZOLE 200 MG/NS 100 ML IVPB SCH (11:41)
--- NOTE | 2020-01-16 12:24 | PN ---
Progress Note, Physician History of Present Illness: Remains heodynamically stable off Levophed gtt, afebrile, rate-controlled afib, s/p abscess drainage and repair of enterocutaneous fistula, tolerating diet. - Current Medication List Current Medications: Active Medications Acetaminophen (Tylenol -) 650 mg PO Q6H PRN PRN Reason: PAIN LEVEL 1-5 Albuterol Sulfate (Ventolin 0.083% Nebulizer Soln -) 1 amp NEB Q6H PRN PRN Reason: SHORT OF BREATH/WHEEZING Apixaban (Eliquis -) 5 mg PO BID [facility] Last Admin: 01/16/20 10:26 Dose: 5 mg Brimonidine Tartrate (Alphagan 0.2% -) 1 drop OU BID [facility] Last Admin: 01/16/20 10:27 Dose: 1 drop Fluticasone Propionate (Flonase -) 1 spray NS BID [facility] Last Admin: 01/16/20 10:28 Dose: 1 spray Fluconazole (Diflucan 200 Mg/Ns Premixed Ivpb -) 100 mls @ 100 mls/hr IVPB DAILY [facility] Last Admin: 01/16/20 11:41 Dose: 100 mls/hr Piperacillin Sod/Tazobactam (Sod 4.5 gm/ Dextrose) 100 mls @ 200 mls/hr IVPB Q8H-IV [facility]; Protocol Last Admin: 01/16/20 10:22 Dose: 200 mls/hr Insulin Aspart (Novolog Vial Sliding Scale -) 1 vial SQ ACHS [facility]; Protocol Last Admin: 01/16/20 12:02 Dose: Not Given Latanoprost (Xalatan 0.005% Eye Drops -) 1 drop OU HS [facility] Last Admin: 01/15/20 21:39 Dose: 1 drop Lidocaine (Lidoderm Patch -) 1 patch TP DAILY [facility] Last Admin: 01/16/20 10:28 Dose: 1 patch Methimazole (Tapazole -) 10 mg PO BID [facility] Last Admin: 01/16/20 10:23 Dose: 10 mg Miscellaneous (Lidoderm Patch Removal) 1 each MC DAILY@2200 [facility] Last Admin: 01/15/20 21:44 Dose: 1 each Octreotide Acetate (Sandostatin -) 100 mcg SQ TID [facility] Stop: 01/19/20 10:00 Last Admin: 01/16/20 06:14 Dose: Not Given Pantoprazole Sodium (Protonix Iv) 40 mg IVPUSH BID [facility] Last Admin: 01/16/20 10:24 Dose: 40 mg Timolol Maleate (Timoptic 0.5%) 1 drop OU BID [facility] Last Admin: 01/16/20 10:28 Dose: 1 drop - Objective Vital Signs: Vital Signs Temperature 98.4 F 01/16/20 09:24 Pulse Rate 87 01/16/20 09:24 Respiratory Rate 18 01/16/20 09:24 Blood Pressure 129/80 01/16/20 09:24 O2 Sat by Pulse Oximetry (%) 96 01/15/20 21:00 Constitutional: Yes: No Distress, Calm Neck: Yes: Supple Cardiovascular: Yes: Pulse Irregular Respiratory: Yes: Regular, Diminished Gastrointestinal: Yes: Normal Bowel Sounds, Soft, Abdomen, Obese Edema: Yes Edema: LLE: Trace, RLE: Trace Labs: CBC, BMP 01/16/20 05:30 01/16/20 05:30 INR, PTT INR 1.35 (0.83-1.09) H 01/11/20 06:00 Problem List - Problems (1) Abscess Code(s): L02.91 - CUTANEOUS ABSCESS, UNSPECIFIED (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 (4) Afib Code(s): I48.91 - UNSPECIFIED ATRIAL FIBRILLATION Qualifiers: Atrial fibrillation type: permanent Qualified Code(s): I48.21 - Permanent atrial fibrillation (5) Anemia Code(s): D64.9 - ANEMIA, UNSPECIFIED (6) Fluid collection at surgical site Code(s): T88.8XXA - OTH COMPLICATIONS OF SURGICAL AND MEDICAL CARE, NEC, INIT Qualifiers: Encounter type: initial encounter Qualified Code(s): T88.8XXA - Other specified complications of surgical and medical care, not elsewhere classified, initial encounter (7) Hyperthyroidism Code(s): E05.90 - THYROTOXICOSIS, UNSP WITHOUT THYROTOXIC CRISIS OR STORM (8) S/P left hemicolectomy Code(s): Z90.49 - ACQUIRED ABSENCE OF OTHER SPECIFIED PARTS OF DIGESTIVE TRACT (9) S/P repair of ventral hernia Code(s): Z98.890 - OTHER SPECIFIED POSTPROCEDURAL STATES; Z87.19 - PERSONAL HISTORY OF OTHER DISEASES OF THE DIGESTIVE SYSTEM (10) Sepsis Code(s): A41.9 - SEPSIS, UNSPECIFIED ORGANISM Qualifiers: Sepsis type: sepsis due to unspecified organism Qualified Code(s): A41.9 - Sepsis, unspecified organism (11) CAD (coronary artery disease) Code(s): I25.10 - ATHSCL HEART DISEASE OF [place] CORONARY ARTERY W/O ANG PCTRS Qualifiers: Coronary Disease-Associated Artery/Lesion type: [place] artery [place] vs. transplanted heart: [place] heart Associated angina: without angina Qualified Code(s): I25.10 - Atherosclerotic heart disease of [place] coronary artery without angina pectoris (12) CVA (cerebral vascular accident) Code(s): I63.9 - CEREBRAL INFARCTION, UNSPECIFIED Qualifiers: CVA mechanism: unspecified Qualified Code(s): I63.9 - Cerebral infarction, unspecified (13) HTN (hypertension) Code(s): I10 - ESSENTIAL (PRIMARY) HYPERTENSION Qualifiers: Hypertension type: essential hypertension Qualified Code(s): I10 - Essential (primary) hypertension (14) Microcytic anemia Code(s): D50.9 - IRON DEFICIENCY ANEMIA, UNSPECIFIED Assessment/Plan 1. Subcutaneous Abscesses, Enterocutaneous Fisulta post I&D, washout and repair 2. Post septic shock 3. Post abdominal hernia repair complicated by small bowel resection and mesh placement, h/o IR drain of abscess 4. Persistent atrial Fibrillation [id number] score of 5 5. Diastolic LV dysfunction with clinical class 0 NYHA classification LV failure 6. HTN 7. DM 8. Hyperthyroidism 9. History of cervical carcinoma post resection 10. History of colon carcinoma post hemicolectomy 11. Anemia 12. UTI -pseudomonas 13. vre culture positive by history PLAN: 1. Abx and antifungal per ID, wound care 2. Continue Eliquis 5 bid as post-op hemostasis assured 3. Resume Lopressor 25 mg BID, Losartan 25 mg QD with hemodynamic stability 4. IV Lopressor as needed for rate-control
--- NOTE | 2020-01-16 13:21 | PN ---
Progress Note (short form) - Note Progress Note: s/p drainage of collections- enterocutaneous fistula noted pod #6 now eating Vital Signs Period Temp Pulse Resp BP Sys/Ugarte Pulse Ox Last 24 Hr 97.7 F-98.5 F 86-88 18-18 102-129/63-80 96 cor-rrr lungs decreased bases abd soft, lucius intact, ostomy bag in place ext no edema CBC, BMP 01/16/20 05:30 01/16/20 05:30 Microbiology 01/08/20 14:00 Blood - Peripheral Venous Blood Culture - Final NO GROWTH AFTER 5 DAYS INCUBATION 01/08/20 14:00 Blood - Peripheral Venous Blood Culture - Final NO GROWTH AFTER 5 DAYS INCUBATION 01/11/20 11:00 Body Fluid - Other Gram Stain - Final 01/11/20 11:00 Body Fluid - Other Body Fluid Culture - Final Escherichia Coli Yeast Like Organism Alpha Hemolytic Streptococcus 01/11/20 11:00 Body Fluid - Other Anaerobic Culture - Final NO ANAEROBES WERE ISOLATED 01/11/20 11:00 Body Fluid - Other Gram Stain - Final 01/11/20 11:00 Body Fluid - Other Body Fluid Culture - Final Escherichia Coli Yeast Like Organism Alpha Hemolytic Streptococcus 01/11/20 11:00 Body Fluid - Other Anaerobic Culture - Final NO ANAEROBES WERE ISOLATED 01/10/20 20:00 Stool Clostridioides difficile Antigen - Final 01/10/20 20:00 Stool Clostridioides difficile Toxin Assay - Final 01/08/20 15:46 Urine - Urine - Catheterized Urine Culture - Final Pseudomonas Aeruginosa a/p sepsis secondary to multiple subcutaneous abscesses-for operative drainage today enterocutaneous fistula s/p mesh repair of hernia with small bowel resection s/p left colectomy colon cancer vre culture positive by history UTI -pseudomonas day #7 antibiotics, to continue zosyn/diflucan for now with switch to po antibioitics when ready for discharge d/w dr elias Problem List - Problems (1) Sepsis Code(s): A41.9 - SEPSIS, UNSPECIFIED ORGANISM Qualifiers: Sepsis type: sepsis due to unspecified organism Qualified Code(s): A41.9 - Sepsis, unspecified organism (2) Abscess Code(s): L02.91 - CUTANEOUS ABSCESS, UNSPECIFIED (3) S/P repair of ventral hernia Code(s): Z98.890 - OTHER SPECIFIED POSTPROCEDURAL STATES; Z87.19 - PERSONAL HISTORY OF OTHER DISEASES OF THE DIGESTIVE SYSTEM (4) S/P left hemicolectomy Code(s): Z90.49 - ACQUIRED ABSENCE OF OTHER SPECIFIED PARTS OF DIGESTIVE TRACT (5) Colon cancer Code(s): C18.9 - MALIGNANT NEOPLASM OF COLON, UNSPECIFIED (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
[2020-01-16 16:37] VITALS: BMI 28.7
[2020-01-16] MEDS ORDERED: PT OWN MED DRAWER 7, Y5N ONE ×3 (22:16→22:59)
[2020-01-16] MEDS: METOPROLOL TARTRATE 25 MG TABLET (FP) PO SCH (22:25)
[2020-01-16] MEDS: LIDOCAINE PATCH REMOVAL MC SCH (22:25)
[2020-01-16] MEDS: LATANOPROST 0.005% OPHTH SOLN 2.5ML BOTTLE OU SCH (22:26)
[2020-01-17] MEDS ORDERED: PIPERACILLIN/TAZOBACTAM 4.5 GM VIAL IVPB ONE ×3 (00:58→17:27)
[2020-01-17] MEDS ORDERED: DEXTROSE 5%-WATER 100 ML IVPB ONE ×3 (00:58→17:27)
[2020-01-17] MEDS: PIPERACILLIN/TAZOB 4.5 GM 4.5 GM in DEXTROSE 5%-WATER 100 ML IVPB SCH ×3 (01:06→17:35)
[2020-01-17] MEDS: OCTREOTIDE ACETATE 100 MCG/1 ML SQ SCH ×4 (01:06→22:55)
[2020-01-17] MEDS: INSULIN SLIDING SCALE (NOVOLOG) 1 VIAL SQ SCH ×4 (06:23→22:03)
--- NOTE | 2020-01-17 09:04 | PN ---
Progress Note, Physician Chief Complaint: awake alert NAD fever no cough no pain - Current Medication List Current Medications: Active Medications Acetaminophen (Tylenol -) 650 mg PO Q6H PRN PRN Reason: PAIN LEVEL 1-5 Albuterol Sulfate (Ventolin 0.083% Nebulizer Soln -) 1 amp NEB Q6H PRN PRN Reason: SHORT OF BREATH/WHEEZING Apixaban (Eliquis -) 5 mg PO BID [facility] Last Admin: 01/16/20 22:25 Dose: 5 mg Brimonidine Tartrate (Alphagan 0.2% -) 1 drop OU BID [facility] Last Admin: 01/16/20 22:27 Dose: 1 drop Fluticasone Propionate (Flonase -) 1 spray NS BID [facility] Last Admin: 01/16/20 22:27 Dose: 1 spray Fluconazole (Diflucan 200 Mg/Ns Premixed Ivpb -) 100 mls @ 100 mls/hr IVPB DAILY [facility] Last Admin: 01/16/20 11:41 Dose: 100 mls/hr Piperacillin Sod/Tazobactam (Sod 4.5 gm/ Dextrose) 100 mls @ 200 mls/hr IVPB Q8H-IV [facility]; Protocol Last Admin: 01/17/20 01:06 Dose: 200 mls/hr Insulin Aspart (Novolog Vial Sliding Scale -) 1 vial SQ ACHS [facility]; Protocol Last Admin: 01/17/20 06:23 Dose: Not Given Latanoprost (Xalatan 0.005% Eye Drops -) 1 drop OU HS [facility] Last Admin: 01/16/20 22:26 Dose: 1 drop Lidocaine (Lidoderm Patch -) 1 patch TP DAILY [facility] Last Admin: 01/16/20 10:28 Dose: 1 patch Methimazole (Tapazole -) 10 mg PO BID [facility] Last Admin: 01/16/20 22:26 Dose: 10 mg Metoprolol Tartrate (Lopressor -) 25 mg PO BID [facility] Last Admin: 01/16/20 22:25 Dose: 25 mg Miscellaneous (Lidoderm Patch Removal) 1 each MC DAILY@2200 [facility] Last Admin: 01/16/20 22:25 Dose: Not Given Octreotide Acetate (Sandostatin -) 100 mcg SQ TID [facility] Stop: 01/19/20 10:00 Last Admin: 01/17/20 05:53 Dose: 100 mcg Pantoprazole Sodium (Protonix Iv) 40 mg IVPUSH BID [facility] Last Admin: 01/16/20 22:24 Dose: 40 mg Timolol Maleate (Timoptic 0.5%) 1 drop OU BID [facility] Last Admin: 01/16/20 22:27 Dose: 1 drop - Objective Vital Signs: Vital Signs Temperature 98.9 F 01/17/20 05:00 Pulse Rate 102 H 01/17/20 05:00 Respiratory Rate 18 01/17/20 05:00 Blood Pressure 132/65 01/17/20 05:00 O2 Sat by Pulse Oximetry (%) 97 01/16/20 21:00 Constitutional: Yes: No Distress Eyes: Yes: Conjunctiva Clear HENT: Yes: Atraumatic Neck: Yes: Supple Cardiovascular: No: Regular Rate and Rhythm Respiratory: Yes: CTA Bilaterally Gastrointestinal: Yes: Soft. No: Tenderness Musculoskeletal: No: Joint Stiffness, Joint Swelling Extremities: No: Cold, Cool Edema: No Integumentary: No: Rash, Venous Stasis Changes Neurological: Yes: Alert ...Motor Strength: WNL Psychiatric: Yes: Alert. No: Agitated Labs: CBC, BMP 01/16/20 05:30 01/16/20 05:30 INR, PTT INR 1.35 (0.83-1.09) H 01/11/20 06:00 - ....Imaging Other: Report Reviewed Assessment/Plan 84-year-old female history of anemia, A. fib, diabetes, hypertension, lipidemia , colon cancer status post resection and hernia repair complicated by abdominal skin wall abscess and fistula admitted with hypotension, sepsis; anemia; s/p abdominal exploration surgery; recurrent fever\ send cultures broad spectrum IV ATB per ID ASHD AFib; cardiology f/u; eliquis po anemia sp transfusion PRBC f/u labs prognosis guarded surgery f/u abd wound f/u labs and cultures falls DVT aspiration decubs PFX d/w pt and staff d.w pt's daughter at bedside
--- NOTE | 2020-01-17 10:23 | PN ---
Progress Note, Physician History of Present Illness: Afebrile, rate-controlled afib, s/p abscess drainage and repair of enterocutaneous fistula, tolerating diet. - Current Medication List Current Medications: Active Medications Acetaminophen (Tylenol -) 650 mg PO Q6H PRN PRN Reason: PAIN LEVEL 1-5 Albuterol Sulfate (Ventolin 0.083% Nebulizer Soln -) 1 amp NEB Q6H PRN PRN Reason: SHORT OF BREATH/WHEEZING Apixaban (Eliquis -) 5 mg PO BID [facility] Last Admin: 01/16/20 22:25 Dose: 5 mg Brimonidine Tartrate (Alphagan 0.2% -) 1 drop OU BID [facility] Last Admin: 01/16/20 22:27 Dose: 1 drop Fluticasone Propionate (Flonase -) 1 spray NS BID [facility] Last Admin: 01/16/20 22:27 Dose: 1 spray Fluconazole (Diflucan 200 Mg/Ns Premixed Ivpb -) 100 mls @ 100 mls/hr IVPB DAILY [facility] Last Admin: 01/16/20 11:41 Dose: 100 mls/hr Piperacillin Sod/Tazobactam (Sod 4.5 gm/ Dextrose) 100 mls @ 200 mls/hr IVPB Q8H-IV [facility]; Protocol Last Admin: 01/17/20 01:06 Dose: 200 mls/hr Insulin Aspart (Novolog Vial Sliding Scale -) 1 vial SQ ACHS [facility]; Protocol Last Admin: 01/17/20 06:23 Dose: Not Given Latanoprost (Xalatan 0.005% Eye Drops -) 1 drop OU HS [facility] Last Admin: 01/16/20 22:26 Dose: 1 drop Lidocaine (Lidoderm Patch -) 1 patch TP DAILY [facility] Last Admin: 01/16/20 10:28 Dose: 1 patch Methimazole (Tapazole -) 10 mg PO BID [facility] Last Admin: 01/16/20 22:26 Dose: 10 mg Metoprolol Tartrate (Lopressor -) 25 mg PO BID [facility] Last Admin: 01/16/20 22:25 Dose: 25 mg Miscellaneous (Lidoderm Patch Removal) 1 each MC DAILY@2200 [facility] Last Admin: 01/16/20 22:25 Dose: Not Given Octreotide Acetate (Sandostatin -) 100 mcg SQ TID [facility] Stop: 01/19/20 10:00 Last Admin: 01/17/20 05:53 Dose: 100 mcg Pantoprazole Sodium (Protonix Iv) 40 mg IVPUSH BID [facility] Last Admin: 01/16/20 22:24 Dose: 40 mg Timolol Maleate (Timoptic 0.5%) 1 drop OU BID [facility] Last Admin: 01/16/20 22:27 Dose: 1 drop - Objective Vital Signs: Vital Signs Temperature 98.9 F 01/17/20 05:00 Pulse Rate 102 H 01/17/20 05:00 Respiratory Rate 18 01/17/20 05:00 Blood Pressure 132/65 01/17/20 05:00 O2 Sat by Pulse Oximetry (%) 97 01/16/20 21:00 Constitutional: Yes: No Distress, Calm Neck: Yes: Supple Cardiovascular: Yes: Pulse Irregular Respiratory: Yes: Regular, CTA Bilaterally Gastrointestinal: Yes: Normal Bowel Sounds, Soft, Abdomen, Obese Edema: No Labs: CBC, BMP 01/16/20 05:30 01/16/20 05:30 INR, PTT INR 1.35 (0.83-1.09) H 01/11/20 06:00 Problem List - Problems (1) Abscess Code(s): L02.91 - CUTANEOUS ABSCESS, UNSPECIFIED (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 (4) Afib Code(s): I48.91 - UNSPECIFIED ATRIAL FIBRILLATION Qualifiers: Atrial fibrillation type: permanent Qualified Code(s): I48.21 - Permanent atrial fibrillation (5) Anemia Code(s): D64.9 - ANEMIA, UNSPECIFIED (6) Fluid collection at surgical site Code(s): T88.8XXA - OTH COMPLICATIONS OF SURGICAL AND MEDICAL CARE, NEC, INIT Qualifiers: Encounter type: initial encounter Qualified Code(s): T88.8XXA - Other specified complications of surgical and medical care, not elsewhere classified, initial encounter (7) Hyperthyroidism Code(s): E05.90 - THYROTOXICOSIS, UNSP WITHOUT THYROTOXIC CRISIS OR STORM (8) S/P left hemicolectomy Code(s): Z90.49 - ACQUIRED ABSENCE OF OTHER SPECIFIED PARTS OF DIGESTIVE TRACT (9) S/P repair of ventral hernia Code(s): Z98.890 - OTHER SPECIFIED POSTPROCEDURAL STATES; Z87.19 - PERSONAL HISTORY OF OTHER DISEASES OF THE DIGESTIVE SYSTEM (10) Sepsis Code(s): A41.9 - SEPSIS, UNSPECIFIED ORGANISM Qualifiers: Sepsis type: sepsis due to unspecified organism Qualified Code(s): A41.9 - Sepsis, unspecified organism (11) CAD (coronary artery disease) Code(s): I25.10 - ATHSCL HEART DISEASE OF [place] CORONARY ARTERY W/O ANG PCTRS Qualifiers: Coronary Disease-Associated Artery/Lesion type: [place] artery [place] vs. transplanted heart: [place] heart Associated angina: without angina Qualified Code(s): I25.10 - Atherosclerotic heart disease of [place] coronary artery without angina pectoris (12) CVA (cerebral vascular accident) Code(s): I63.9 - CEREBRAL INFARCTION, UNSPECIFIED Qualifiers: CVA mechanism: unspecified Qualified Code(s): I63.9 - Cerebral infarction, unspecified (13) HTN (hypertension) Code(s): I10 - ESSENTIAL (PRIMARY) HYPERTENSION Qualifiers: Hypertension type: essential hypertension Qualified Code(s): I10 - Essential (primary) hypertension (14) Microcytic anemia Code(s): D50.9 - IRON DEFICIENCY ANEMIA, UNSPECIFIED Assessment/Plan 1. Subcutaneous Abscesses, Enterocutaneous Fisulta post I&D, washout and repair 2. Post septic shock 3. Post abdominal hernia repair complicated by small bowel resection and mesh placement, h/o IR drain of abscess 4. Persistent atrial Fibrillation [id number] score of 5 5. Diastolic LV dysfunction with clinical class 0 NYHA classification LV failure 6. HTN 7. DM 8. Hyperthyroidism 9. History of cervical carcinoma post resection 10. History of colon carcinoma post hemicolectomy 11. Anemia 12. UTI -pseudomonas 13. vre culture positive by history PLAN: 1. Abx and antifungal per ID, wound care 2. Continue Eliquis 5 bid as post-op hemostasis assured 3. Increase Lopressor 50 mg BID, Losartan 25 mg QD with hemodynamic stability 4. IV Lopressor as needed for rate-control
[2020-01-17] MEDS ORDERED: PT OWN MED DRAWER 7, Y5N ONE ×3 (10:44→21:44)
[2020-01-17] MEDS: TIMOLOL 0.5% OPHTHALMIC SOL 5 ML BOTTLE OU SCH ×2 (10:52→22:03)
[2020-01-17] MEDS: PANTOPRAZOLE SODIUM 40 MG VIAL IVPUSH SCH ×2 (10:52→22:00)
[2020-01-17] MEDS: FLUTICASONE PROP 0.05% 16 GM NASAL SPRAY NS SCH ×2 (10:52→22:04)
[2020-01-17] MEDS: FLUCONAZOLE 200 MG/NS 100 ML IVPB SCH (10:52)
[2020-01-17] MEDS: BRIMONIDINE TARTRATE 0.2% OPHTHALMIC 5 ML BOTTLE OU SCH ×2 (10:52→22:02)
[2020-01-17] MEDS: LIDOCAINE 5% TOPICAL PATCH TP SCH (10:52)
[2020-01-17] MEDS: METOPROLOL TARTRATE 25 MG TABLET (FP) PO SCH ×3 (10:56→22:27)
[2020-01-17] MEDS: APIXABAN 5 MG TABLET PO SCH ×2 (10:56→22:01)
[2020-01-17] MEDS: METHIMAZOLE 10 MG TABLET (FP) PO SCH ×2 (10:56→22:01)
[2020-01-17] MEDS: ACETAMINOPHEN 325 MG TABLET (FP) PO PRN (17:33)
[2020-01-17] MEDS: LATANOPROST 0.005% OPHTH SOLN 2.5ML BOTTLE OU SCH (22:02)
[2020-01-17] MEDS: LIDOCAINE PATCH REMOVAL MC SCH (22:04)
[2020-01-18] MEDS ORDERED: DEXTROSE 5%-WATER 100 ML IVPB ONE ×3 (01:54→17:21)
[2020-01-18] MEDS ORDERED: PIPERACILLIN/TAZOBACTAM 4.5 GM VIAL IVPB ONE ×3 (01:54→17:20)
[2020-01-18] MEDS: PIPERACILLIN/TAZOB 4.5 GM 4.5 GM in DEXTROSE 5%-WATER 100 ML IVPB SCH ×3 (02:05→17:28)
[2020-01-18] MEDS: OCTREOTIDE ACETATE 100 MCG/1 ML SQ SCH ×3 (05:38→22:15)
--- NOTE | 2020-01-18 06:41 | PN ---
Progress Note, Physician Chief Complaint: in bed NAD low grade fever again no new c/o - Current Medication List Current Medications: Active Medications Acetaminophen (Tylenol -) 650 mg PO Q6H PRN PRN Reason: PAIN LEVEL 1-5 Last Admin: 01/17/20 17:33 Dose: 650 mg Albuterol Sulfate (Ventolin 0.083% Nebulizer Soln -) 1 amp NEB Q6H PRN PRN Reason: SHORT OF BREATH/WHEEZING Apixaban (Eliquis -) 5 mg PO BID [facility] Last Admin: 01/17/20 22:01 Dose: 5 mg Brimonidine Tartrate (Alphagan 0.2% -) 1 drop OU BID [facility] Last Admin: 01/17/20 22:02 Dose: 1 drop Fluticasone Propionate (Flonase -) 1 spray NS BID [facility] Last Admin: 01/17/20 22:04 Dose: 1 spray Fluconazole (Diflucan 200 Mg/Ns Premixed Ivpb -) 100 mls @ 100 mls/hr IVPB DAILY [facility] Last Admin: 01/17/20 10:52 Dose: 100 mls/hr Piperacillin Sod/Tazobactam (Sod 4.5 gm/ Dextrose) 100 mls @ 200 mls/hr IVPB Q8H-IV [facility]; Protocol Last Admin: 01/18/20 02:05 Dose: 200 mls/hr Insulin Aspart (Novolog Vial Sliding Scale -) 1 vial SQ ACHS [facility]; Protocol Last Admin: 01/17/20 22:03 Dose: Not Given Latanoprost (Xalatan 0.005% Eye Drops -) 1 drop OU HS [facility] Last Admin: 01/17/20 22:02 Dose: 1 drop Lidocaine (Lidoderm Patch -) 1 patch TP DAILY [facility] Last Admin: 01/17/20 10:52 Dose: 1 patch Losartan Potassium (Cozaar -) 25 mg PO DAILY [facility] Methimazole (Tapazole -) 10 mg PO BID [facility] Last Admin: 01/17/20 22:01 Dose: 10 mg Metoprolol Tartrate (Lopressor -) 25 mg PO BID [facility] Last Admin: 01/17/20 22:27 Dose: 25 mg Miscellaneous (Lidoderm Patch Removal) 1 each MC DAILY@2200 [facility] Last Admin: 01/17/20 22:04 Dose: Not Given Octreotide Acetate (Sandostatin -) 100 mcg SQ TID [facility] Stop: 01/19/20 10:00 Last Admin: 01/18/20 05:38 Dose: 100 mcg Pantoprazole Sodium (Protonix Iv) 40 mg IVPUSH BID [facility] Last Admin: 01/17/20 22:00 Dose: 40 mg Timolol Maleate (Timoptic 0.5%) 1 drop OU BID [facility] Last Admin: 01/17/20 22:03 Dose: 1 drop - Objective Vital Signs: Vital Signs Temperature 98.5 F 01/18/20 05:45 Pulse Rate 83 01/18/20 05:45 Respiratory Rate 16 01/18/20 05:45 Blood Pressure 103/64 01/18/20 05:45 O2 Sat by Pulse Oximetry (%) 95 01/17/20 21:00 Constitutional: Yes: No Distress Eyes: Yes: Conjunctiva Clear HENT: Yes: Atraumatic Neck: Yes: Supple Cardiovascular: No: Regular Rate and Rhythm Respiratory: Yes: CTA Bilaterally Gastrointestinal: Yes: Soft, Other (bag). No: Tenderness Genitourinary: No: Hematuria Musculoskeletal: No: Joint Stiffness, Joint Swelling Extremities: No: Cold, Cool, Cyanosis Edema: No Integumentary: No: Rash, Venous Stasis Changes Neurological: Yes: Alert ...Motor Strength: WNL Psychiatric: Yes: Alert. No: Agitated, Suicidal Ideation Labs: CBC, BMP 01/16/20 05:30 01/16/20 05:30 INR, PTT INR 1.35 (0.83-1.09) H 01/11/20 06:00 - ....Imaging Other: Report Reviewed Assessment/Plan 84-year-old female history of anemia, A. fib, diabetes, hypertension, lipidemia , colon cancer status post resection and hernia repair complicated by abdominal skin wall abscess and fistula admitted with hypotension, sepsis; anemia; s/p abdominal exploration surgery; recurrent fever\ send cultures broad spectrum IV ATB per ID ASHD AFib; cardiology f/u; eliquis po anemia sp transfusion PRBC f/u labs prognosis guarded surgery f/u abd wound f/u labs and cultures falls DVT aspiration decubs PFX d/w pt and staff
[2020-01-18 06:47] LABS: BASO % 0.5 % (0-2.0); EOS % 2.4 % (0-4.5); HEMATOCRIT 29.8 % (32.4-45.2); HEMOGLOBIN 10.1 GM/dL (10.7-15.3); LYMPH % 19.9 % (8-40); MCH 29.9 pg (25.7-33.7); MCHC 33.7 g/dl (32.0-36.0); MEAN CELL VOLUME 88.6 fl (80-96); MEAN PLT VOLUME 7.4 fl (7.5-11.1); MONO % 16.1 % (3.8-10.2); NEUT % 61.1 % (42.8-82.8); PLATELET COUNT 216 K/MM3 (134-434); RBC 3.37 M/mm3 (3.60-5.2); RDW 16.4 % (11.6-15.6); WHITE BLOOD COUNT 6.4 K/mm3 (4.0-10.0)
[2020-01-18] MEDS ORDERED: PT OWN MED DRAWER 7, Y5N ONE ×4 (06:57→22:08)
[2020-01-18 07:28] LABS: ALBUMIN 1.3 g/dl (3.4-5.0); BILIRUBIN,TOTAL 0.7 mg/dL (0.2-1); BLOOD UREA NITROGEN 6.1 mg/dL (7-18); CALCIUM 7.4 mg/dL (8.5-10.1); CREATININE 0.6 mg/dL (0.55-1.3); POTASSIUM 3.7 mmol/L (3.5-5.1); TOT PROT 4.3 g/dl (6.4-8.2)
[2020-01-18] MEDS: INSULIN SLIDING SCALE (NOVOLOG) 1 VIAL SQ SCH ×4 (08:56→22:28)
--- NOTE | 2020-01-18 09:01 | PN ---
Progress Note (short form) - Note Progress Note: No cardiac evenrs, Hb 10.1, Cr 0.6; Feels better. Hemodynamically stable Assessment: 1. Subcutaneous Abscesses, Enterocutaneous Fisulta post I&D, washout and repair 2. Post septic shock 3. Post abdominal hernia repair complicated by small bowel resection and mesh placement, h/o IR drain of abscess 4. Persistent atrial Fibrillation [id number] score of 5 5. Diastolic LV dysfunction with clinical class 0 NYHA classification LV failure 6. HTN 7. DM 8. Hyperthyroidism 9. History of cervical carcinoma post resection 10. History of colon carcinoma post hemicolectomy 11. Anemia 12. UTI -pseudomonas 13. vre culture positive by history PLAN: Same: 1. Abx and antifungal per ID, wound care 2. Continue Eliquis 5 bid as post-op hemostasis assured 3. Increase Lopressor 50 mg BID, Losartan 25 mg QD with hemodynamic stability 4. IV Lopressor as needed for rate-control
[2020-01-18] MEDS: LIDOCAINE 5% TOPICAL PATCH TP SCH (10:55)
[2020-01-18] MEDS: FLUCONAZOLE 200 MG/NS 100 ML IVPB SCH (10:56)
[2020-01-18] MEDS: METOPROLOL TARTRATE 25 MG TABLET (FP) PO SCH ×2 (10:58→22:12)
[2020-01-18] MEDS: PANTOPRAZOLE SODIUM 40 MG VIAL IVPUSH SCH ×2 (10:58→22:13)
[2020-01-18] MEDS: METHIMAZOLE 10 MG TABLET (FP) PO SCH ×2 (10:58→22:13)
[2020-01-18] MEDS: LOSARTAN POTASSIUM 25 MG TABLET PO SCH (10:58)
[2020-01-18] MEDS: APIXABAN 5 MG TABLET PO SCH ×2 (10:58→22:12)
[2020-01-18] MEDS: BRIMONIDINE TARTRATE 0.2% OPHTHALMIC 5 ML BOTTLE OU SCH ×2 (10:59→22:15)
[2020-01-18] MEDS: FLUTICASONE PROP 0.05% 16 GM NASAL SPRAY NS SCH ×2 (10:59→22:15)
[2020-01-18] MEDS: TIMOLOL 0.5% OPHTHALMIC SOL 5 ML BOTTLE OU SCH ×2 (10:59→22:16)
--- NOTE | 2020-01-18 14:50 | PN ---
Progress Note (short form) - Note Progress Note: s/p drainage of collections- enterocutaneous fistula noted pod #7 fever to 101 yesterday- cultures repeated now eating daughter reports no cough or vomiting Vital Signs Period Temp Pulse Resp BP Sys/Ugarte Pulse Ox Last 24 Hr 97.9 F-101.1 F 83-98 16-20 101-135/53-79 95 cor-rrr llungs clear abd soft,nt +ostomy ext no edema CBC, BMP 01/18/20 05:15 01/18/20 05:15 Microbiology 01/08/20 14:00 Blood - Peripheral Venous Blood Culture - Final NO GROWTH AFTER 5 DAYS INCUBATION 01/08/20 14:00 Blood - Peripheral Venous Blood Culture - Final NO GROWTH AFTER 5 DAYS INCUBATION 01/11/20 11:00 Body Fluid - Other Gram Stain - Final 01/11/20 11:00 Body Fluid - Other Body Fluid Culture - Final Escherichia Coli Yeast Like Organism Alpha Hemolytic Streptococcus 01/11/20 11:00 Body Fluid - Other Anaerobic Culture - Final NO ANAEROBES WERE ISOLATED 01/11/20 11:00 Body Fluid - Other Gram Stain - Final 01/11/20 11:00 Body Fluid - Other Body Fluid Culture - Final Escherichia Coli Yeast Like Organism Alpha Hemolytic Streptococcus 01/11/20 11:00 Body Fluid - Other Anaerobic Culture - Final NO ANAEROBES WERE ISOLATED 01/10/20 20:00 Stool Clostridioides difficile Antigen - Final 01/10/20 20:00 Stool Clostridioides difficile Toxin Assay - Final 01/08/20 15:46 Urine - Urine - Catheterized Urine Culture - Final Pseudomonas Aeruginosa a/p sepsis secondary to multiple subcutaneous abscesses-for operative drainage today enterocutaneous fistula s/p mesh repair of hernia with small bowel resection s/p left colectomy colon cancer vre culture positive by history UTI -pseudomonas day #10 antibiotics, to continue zosyn/diflucan for now f/u cultures Problem List - Problems (1) Sepsis Code(s): A41.9 - SEPSIS, UNSPECIFIED ORGANISM Qualifiers: Sepsis type: sepsis due to unspecified organism Qualified Code(s): A41.9 - Sepsis, unspecified organism (2) Abscess Code(s): L02.91 - CUTANEOUS ABSCESS, UNSPECIFIED (3) S/P repair of ventral hernia Code(s): Z98.890 - OTHER SPECIFIED POSTPROCEDURAL STATES; Z87.19 - PERSONAL HISTORY OF OTHER DISEASES OF THE DIGESTIVE SYSTEM (4) S/P left hemicolectomy Code(s): Z90.49 - ACQUIRED ABSENCE OF OTHER SPECIFIED PARTS OF DIGESTIVE TRACT (5) Colon cancer Code(s): C18.9 - MALIGNANT NEOPLASM OF COLON, UNSPECIFIED (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
[2020-01-18] MEDS: ACETAMINOPHEN 325 MG TABLET (FP) PO PRN (22:12)
[2020-01-18] MEDS: LIDOCAINE PATCH REMOVAL MC SCH (22:15)
[2020-01-18] MEDS: LATANOPROST 0.005% OPHTH SOLN 2.5ML BOTTLE OU SCH (22:16)
[2020-01-19] MEDS ORDERED: PIPERACILLIN/TAZOBACTAM 4.5 GM VIAL IVPB ONE ×3 (01:41→17:47)
[2020-01-19] MEDS ORDERED: DEXTROSE 5%-WATER 100 ML IVPB ONE ×3 (01:42→17:48)
[2020-01-19] MEDS: PIPERACILLIN/TAZOB 4.5 GM 4.5 GM in DEXTROSE 5%-WATER 100 ML IVPB SCH ×3 (01:48→17:53)
[2020-01-19] MEDS ORDERED: PT OWN MED DRAWER 7, Y5N ONE ×5 (05:41→20:42)
[2020-01-19] MEDS: OCTREOTIDE ACETATE 100 MCG/1 ML SQ SCH (06:19)
[2020-01-19] MEDS: INSULIN SLIDING SCALE (NOVOLOG) 1 VIAL SQ SCH ×4 (06:20→21:39)
[2020-01-19 06:36] LABS: BASO % 0.3 % (0-2.0); EOS % 1.3 % (0-4.5); HEMATOCRIT 28.6 % (32.4-45.2); HEMOGLOBIN 9.7 GM/dL (10.7-15.3); LYMPH % 19.9 % (8-40); MCHC 33.8 g/dl (32.0-36.0); MEAN CELL VOLUME 88.8 fl (80-96); MEAN PLT VOLUME 7.8 fl (7.5-11.1); MONO % 15.8 % (3.8-10.2); NEUT % 62.7 % (42.8-82.8); PLATELET COUNT 232 K/MM3 (134-434); RBC 3.22 M/mm3 (3.60-5.2); RDW 16.5 % (11.6-15.6); WHITE BLOOD COUNT 8.6 K/mm3 (4.0-10.0)
--- NOTE | 2020-01-19 06:49 | PN ---
Progress Note, Physician Chief Complaint: afebrile no new c/o feels well to start PT rehab - Current Medication List Current Medications: Active Medications Acetaminophen (Tylenol -) 650 mg PO Q6H PRN PRN Reason: PAIN LEVEL 1-5 Last Admin: 01/18/20 22:12 Dose: 650 mg Albuterol Sulfate (Ventolin 0.083% Nebulizer Soln -) 1 amp NEB Q6H PRN PRN Reason: SHORT OF BREATH/WHEEZING Apixaban (Eliquis -) 5 mg PO BID [facility] Last Admin: 01/18/20 22:12 Dose: 5 mg Brimonidine Tartrate (Alphagan 0.2% -) 1 drop OU BID [facility] Last Admin: 01/18/20 22:15 Dose: 1 drop Fluticasone Propionate (Flonase -) 1 spray NS BID [facility] Last Admin: 01/18/20 22:15 Dose: 1 spray Fluconazole (Diflucan 200 Mg/Ns Premixed Ivpb -) 100 mls @ 100 mls/hr IVPB DAILY [facility] Last Admin: 01/18/20 10:56 Dose: 100 mls/hr Piperacillin Sod/Tazobactam (Sod 4.5 gm/ Dextrose) 100 mls @ 200 mls/hr IVPB Q8H-IV [facility]; Protocol Last Admin: 01/19/20 01:48 Dose: 200 mls/hr Insulin Aspart (Novolog Vial Sliding Scale -) 1 vial SQ ACHS [facility]; Protocol Last Admin: 01/19/20 06:20 Dose: Not Given Latanoprost (Xalatan 0.005% Eye Drops -) 1 drop OU HS [facility] Last Admin: 01/18/20 22:16 Dose: 1 drop Lidocaine (Lidoderm Patch -) 1 patch TP DAILY [facility] Last Admin: 01/18/20 10:55 Dose: 1 patch Losartan Potassium (Cozaar -) 25 mg PO DAILY [facility] Last Admin: 01/18/20 10:58 Dose: 25 mg Methimazole (Tapazole -) 10 mg PO BID [facility] Last Admin: 01/18/20 22:13 Dose: 10 mg Metoprolol Tartrate (Lopressor -) 25 mg PO BID [facility] Last Admin: 01/18/20 22:12 Dose: 25 mg Miscellaneous (Lidoderm Patch Removal) 1 each MC DAILY@2200 [facility] Last Admin: 01/18/20 22:15 Dose: 1 each Octreotide Acetate (Sandostatin -) 100 mcg SQ TID [facility] Stop: 01/19/20 10:00 Last Admin: 01/19/20 06:19 Dose: 100 mcg Pantoprazole Sodium (Protonix Iv) 40 mg IVPUSH BID [facility] Last Admin: 01/18/20 22:13 Dose: 40 mg Timolol Maleate (Timoptic 0.5%) 1 drop OU BID [facility] Last Admin: 01/18/20 22:16 Dose: 1 drop - Objective Vital Signs: Vital Signs Temperature 100 F H 01/18/20 22:00 Pulse Rate 104 H 01/18/20 22:00 Respiratory Rate 18 01/18/20 22:00 Blood Pressure 117/74 01/18/20 22:00 O2 Sat by Pulse Oximetry (%) 95 01/18/20 21:00 Constitutional: Yes: No Distress Eyes: Yes: Conjunctiva Clear HENT: Yes: Atraumatic Neck: Yes: Supple Cardiovascular: No: Regular Rate and Rhythm Respiratory: Yes: Diminished Gastrointestinal: Yes: Soft. No: Tenderness Genitourinary: No: Hematuria Musculoskeletal: No: Joint Stiffness, Joint Swelling Extremities: No: Cold, Cool Edema: No Integumentary: No: Rash, Venous Stasis Changes Neurological: Yes: Alert ...Motor Strength: WNL Psychiatric: Yes: Alert. No: Agitated, Suicidal Ideation Labs: INR, PTT INR 1.35 (0.83-1.09) H 01/11/20 06:00 - ....Imaging Other: Report Reviewed Assessment/Plan 84-year-old female history of anemia, A. fib, diabetes, hypertension, lipidemia , colon cancer status post resection and hernia repair complicated by abdominal skin wall abscess and fistula admitted with hypotension, sepsis; anemia; s/p abdominal exploration surgery; recurrent fever; send cultures so far negative; repeat CXR broad spectrum IV ATB per ID ASHD AFib; cardiology f/u; eliquis po anemia sp transfusion PRBC f/u labs prognosis guarded surgery f/u abd wound f/u labs and cultures falls DVT aspiration decubs PFX d/w pt and staff
[2020-01-19 07:04] LABS: BLOOD UREA NITROGEN 5.9 mg/dL (7-18); CALCIUM 7.4 mg/dL (8.5-10.1); CREATININE 0.6 mg/dL (0.55-1.3); POTASSIUM 3.4 mmol/L (3.5-5.1)
[2020-01-19] MEDS: PANTOPRAZOLE SODIUM 40 MG VIAL IVPUSH SCH ×2 (09:29→21:42)
[2020-01-19] MEDS ORDERED: POTASSIUM CHLORIDE TABS 10 MEQ TABLET.ER (FP) PO ONE (10:00)
--- NOTE | 2020-01-19 10:24 | PN ---
Progress Note (short form) - Note Progress Note: Attending Surgeon No c/o; eating w/o difficulty; day # 5 of octreotide VSS AF had 101.1 01/17/2020 at 1800 hours; on zosyn and diflucan for Pseudomonas in urine abdo-soft and non tender; fistula appliance remains in place WBC nl IMP: enterocutaneous fistula being txed conservatively PLAN: Last day of octreotide; will most likely be d/c'ed w/appliance over fistula when antibitic course finished and no signs of sepsis John Alvarado MD FACS
[2020-01-19] MEDS: LOSARTAN POTASSIUM 25 MG TABLET PO SCH (10:30)
[2020-01-19] MEDS: BRIMONIDINE TARTRATE 0.2% OPHTHALMIC 5 ML BOTTLE OU SCH ×2 (10:30→21:41)
[2020-01-19] MEDS: APIXABAN 5 MG TABLET PO SCH ×2 (10:30→21:41)
[2020-01-19] MEDS: LIDOCAINE 5% TOPICAL PATCH TP SCH (10:31)
[2020-01-19] MEDS: METHIMAZOLE 10 MG TABLET (FP) PO SCH ×2 (10:31→21:41)
[2020-01-19] MEDS: METOPROLOL TARTRATE 25 MG TABLET (FP) PO SCH ×2 (10:31→21:41)
[2020-01-19] MEDS: FLUTICASONE PROP 0.05% 16 GM NASAL SPRAY NS SCH ×2 (10:35→21:42)
[2020-01-19] MEDS: FLUCONAZOLE 200 MG/NS 100 ML IVPB SCH (11:11)
[2020-01-19] MEDS: TIMOLOL 0.5% OPHTHALMIC SOL 5 ML BOTTLE OU SCH ×2 (11:12→21:42)
--- NOTE | 2020-01-19 13:51 | PN ---
Progress Note, Physician History of Present Illness: Afebrile, rate-controlled afib, s/p abscess drainage and repair of enterocutaneous fistula, tolerating diet. - Current Medication List Current Medications: Active Medications Acetaminophen (Tylenol -) 650 mg PO Q6H PRN PRN Reason: PAIN LEVEL 1-5 Last Admin: 01/18/20 22:12 Dose: 650 mg Albuterol Sulfate (Ventolin 0.083% Nebulizer Soln -) 1 amp NEB Q6H PRN PRN Reason: SHORT OF BREATH/WHEEZING Apixaban (Eliquis -) 5 mg PO BID [facility] Last Admin: 01/19/20 10:30 Dose: 5 mg Brimonidine Tartrate (Alphagan 0.2% -) 1 drop OU BID [facility] Last Admin: 01/19/20 10:30 Dose: 1 drop Fluticasone Propionate (Flonase -) 1 spray NS BID [facility] Last Admin: 01/19/20 10:35 Dose: 1 spray Fluconazole (Diflucan 200 Mg/Ns Premixed Ivpb -) 100 mls @ 100 mls/hr IVPB DAILY [facility] Last Admin: 01/19/20 11:11 Dose: 100 mls/hr Piperacillin Sod/Tazobactam (Sod 4.5 gm/ Dextrose) 100 mls @ 200 mls/hr IVPB Q8H-IV [facility]; Protocol Last Admin: 01/19/20 10:32 Dose: 200 mls/hr Insulin Aspart (Novolog Vial Sliding Scale -) 1 vial SQ ACHS [facility]; Protocol Last Admin: 01/19/20 11:39 Dose: Not Given Latanoprost (Xalatan 0.005% Eye Drops -) 1 drop OU HS [facility] Last Admin: 01/18/20 22:16 Dose: 1 drop Lidocaine (Lidoderm Patch -) 1 patch TP DAILY [facility] Last Admin: 01/19/20 10:31 Dose: 1 patch Losartan Potassium (Cozaar -) 25 mg PO DAILY [facility] Last Admin: 01/19/20 10:30 Dose: 25 mg Methimazole (Tapazole -) 10 mg PO BID [facility] Last Admin: 01/19/20 10:31 Dose: 10 mg Metoprolol Tartrate (Lopressor -) 25 mg PO BID [facility] Last Admin: 01/19/20 10:31 Dose: 25 mg Miscellaneous (Lidoderm Patch Removal) 1 each MC DAILY@2200 [facility] Last Admin: 01/18/20 22:15 Dose: 1 each Pantoprazole Sodium (Protonix Iv) 40 mg IVPUSH BID [facility] Last Admin: 01/19/20 09:29 Dose: 40 mg Timolol Maleate (Timoptic 0.5%) 1 drop OU BID [facility] Last Admin: 01/19/20 11:12 Dose: 1 drop - Objective Vital Signs: Vital Signs Temperature 98.2 F 01/19/20 10:00 Pulse Rate 90 01/19/20 10:00 Respiratory Rate 18 01/19/20 10:00 Blood Pressure 108/63 01/19/20 10:00 O2 Sat by Pulse Oximetry (%) 95 01/19/20 09:00 Constitutional: Yes: No Distress, Calm Neck: Yes: Supple Cardiovascular: Yes: Pulse Irregular Respiratory: Yes: Regular, Diminished Gastrointestinal: Yes: Normal Bowel Sounds, Soft Edema: No Labs: CBC, BMP 01/19/20 05:25 01/19/20 05:25 INR, PTT INR 1.35 (0.83-1.09) H 01/11/20 06:00 Problem List - Problems (1) Abscess Code(s): L02.91 - CUTANEOUS ABSCESS, UNSPECIFIED (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 (4) Afib Code(s): I48.91 - UNSPECIFIED ATRIAL FIBRILLATION Qualifiers: Atrial fibrillation type: permanent Qualified Code(s): I48.21 - Permanent atrial fibrillation (5) Anemia Code(s): D64.9 - ANEMIA, UNSPECIFIED (6) Fluid collection at surgical site Code(s): T88.8XXA - OTH COMPLICATIONS OF SURGICAL AND MEDICAL CARE, NEC, INIT Qualifiers: Encounter type: initial encounter Qualified Code(s): T88.8XXA - Other specified complications of surgical and medical care, not elsewhere classified, initial encounter (7) Hyperthyroidism Code(s): E05.90 - THYROTOXICOSIS, UNSP WITHOUT THYROTOXIC CRISIS OR STORM (8) S/P left hemicolectomy Code(s): Z90.49 - ACQUIRED ABSENCE OF OTHER SPECIFIED PARTS OF DIGESTIVE TRACT (9) S/P repair of ventral hernia Code(s): Z98.890 - OTHER SPECIFIED POSTPROCEDURAL STATES; Z87.19 - PERSONAL HISTORY OF OTHER DISEASES OF THE DIGESTIVE SYSTEM (10) Sepsis Code(s): A41.9 - SEPSIS, UNSPECIFIED ORGANISM Qualifiers: Sepsis type: sepsis due to unspecified organism Qualified Code(s): A41.9 - Sepsis, unspecified organism (11) CAD (coronary artery disease) Code(s): I25.10 - ATHSCL HEART DISEASE OF [place] CORONARY ARTERY W/O ANG PCTRS Qualifiers: Coronary Disease-Associated Artery/Lesion type: [place] artery [place] vs. transplanted heart: [place] heart Associated angina: without angina Qualified Code(s): I25.10 - Atherosclerotic heart disease of [place] coronary artery without angina pectoris (12) CVA (cerebral vascular accident) Code(s): I63.9 - CEREBRAL INFARCTION, UNSPECIFIED Qualifiers: CVA mechanism: unspecified Qualified Code(s): I63.9 - Cerebral infarction, unspecified (13) HTN (hypertension) Code(s): I10 - ESSENTIAL (PRIMARY) HYPERTENSION Qualifiers: Hypertension type: essential hypertension Qualified Code(s): I10 - Essential (primary) hypertension (14) Microcytic anemia Code(s): D50.9 - IRON DEFICIENCY ANEMIA, UNSPECIFIED Assessment/Plan 1. Subcutaneous Abscesses, Enterocutaneous Fisulta post I&D, washout and repair 2. Post septic shock 3. Post abdominal hernia repair complicated by small bowel resection and mesh placement, h/o IR drain of abscess 4. Persistent atrial Fibrillation [id number] score of 5 5. Diastolic LV dysfunction with clinical class 0 NYHA classification LV failure 6. HTN 7. DM 8. Hyperthyroidism 9. History of cervical carcinoma post resection 10. History of colon carcinoma post hemicolectomy 11. Anemia 12. UTI -pseudomonas 13. vre culture positive by history PLAN: 1. Abx and antifungal per ID, wound care, replete K as you are 2. Continue Eliquis 5 bid as post-op hemostasis assured 3. Increase Lopressor 50 mg BID, Losartan 25 mg QD as hemodynamics tolerate 4. IV Lopressor as needed for rate-control
[2020-01-19] MEDS: LIDOCAINE PATCH REMOVAL MC SCH (21:39)
[2020-01-19] MEDS: LATANOPROST 0.005% OPHTH SOLN 2.5ML BOTTLE OU SCH (21:42)
[2020-01-20] MEDS ORDERED: DEXTROSE 5%-WATER 100 ML IVPB ONE ×3 (01:20→17:34)
[2020-01-20] MEDS ORDERED: PIPERACILLIN/TAZOBACTAM 4.5 GM VIAL IVPB ONE ×3 (01:20→17:34)
[2020-01-20] MEDS: PIPERACILLIN/TAZOB 4.5 GM 4.5 GM in DEXTROSE 5%-WATER 100 ML IVPB SCH ×3 (01:51→17:54)
[2020-01-20] MEDS: INSULIN SLIDING SCALE (NOVOLOG) 1 VIAL SQ SCH ×4 (06:42→21:10)
[2020-01-20] MEDS: APIXABAN 5 MG TABLET PO SCH ×2 (09:25→21:09)
[2020-01-20] MEDS: LIDOCAINE 5% TOPICAL PATCH TP SCH (09:25)
[2020-01-20] MEDS: PANTOPRAZOLE SODIUM 40 MG VIAL IVPUSH SCH ×2 (09:25→21:09)
[2020-01-20] MEDS: LOSARTAN POTASSIUM 25 MG TABLET PO SCH (09:25)
[2020-01-20] MEDS: METOPROLOL TARTRATE 25 MG TABLET (FP) PO SCH (09:25)
[2020-01-20] MEDS: BRIMONIDINE TARTRATE 0.2% OPHTHALMIC 5 ML BOTTLE OU SCH ×2 (09:26→21:10)
[2020-01-20] MEDS: FLUTICASONE PROP 0.05% 16 GM NASAL SPRAY NS SCH ×2 (09:27→21:10)
[2020-01-20] MEDS: TIMOLOL 0.5% OPHTHALMIC SOL 5 ML BOTTLE OU SCH ×2 (09:27→21:10)
[2020-01-20] MEDS: METHIMAZOLE 10 MG TABLET (FP) PO SCH ×2 (09:42→21:09)
[2020-01-20] MEDS: FLUCONAZOLE 200 MG/NS 100 ML IVPB SCH (11:31)
--- NOTE | 2020-01-20 13:14 | PN ---
Progress Note, Physician Chief Complaint: afebrile; good appetite; no pain; daughter at bedside - Current Medication List Current Medications: Active Medications Acetaminophen (Tylenol -) 650 mg PO Q6H PRN PRN Reason: PAIN LEVEL 1-5 Last Admin: 01/18/20 22:12 Dose: 650 mg Apixaban (Eliquis -) 5 mg PO BID [facility] Last Admin: 01/20/20 09:25 Dose: 5 mg Brimonidine Tartrate (Alphagan 0.2% -) 1 drop OU BID [facility] Last Admin: 01/20/20 09:26 Dose: 1 drop Fluticasone Propionate (Flonase -) 1 spray NS BID [facility] Last Admin: 01/20/20 09:27 Dose: 1 spray Fluconazole (Diflucan 200 Mg/Ns Premixed Ivpb -) 100 mls @ 100 mls/hr IVPB DAILY [facility] Last Admin: 01/20/20 11:31 Dose: 100 mls/hr Piperacillin Sod/Tazobactam (Sod 4.5 gm/ Dextrose) 100 mls @ 200 mls/hr IVPB Q8H-IV [facility]; Protocol Last Admin: 01/20/20 09:27 Dose: 200 mls/hr Insulin Aspart (Novolog Vial Sliding Scale -) 1 vial SQ ACHS [facility]; Protocol Last Admin: 01/20/20 11:45 Dose: Not Given Latanoprost (Xalatan 0.005% Eye Drops -) 1 drop OU HS [facility] Last Admin: 01/19/20 21:42 Dose: 1 drop Lidocaine (Lidoderm Patch -) 1 patch TP DAILY [facility] Last Admin: 01/20/20 09:25 Dose: 1 patch Losartan Potassium (Cozaar -) 25 mg PO DAILY [facility] Last Admin: 01/20/20 09:25 Dose: 25 mg Methimazole (Tapazole -) 10 mg PO BID [facility] Last Admin: 01/20/20 09:42 Dose: 10 mg Metoprolol Tartrate (Lopressor -) 25 mg PO BID [facility] Last Admin: 01/20/20 09:25 Dose: 25 mg Miscellaneous (Lidoderm Patch Removal) 1 each MC DAILY@2200 [facility] Last Admin: 01/19/20 21:39 Dose: Not Given Pantoprazole Sodium (Protonix Iv) 40 mg IVPUSH BID [facility] Last Admin: 01/20/20 09:25 Dose: 40 mg Timolol Maleate (Timoptic 0.5%) 1 drop OU BID [facility] Last Admin: 01/20/20 09:27 Dose: 1 drop - Objective Vital Signs: Vital Signs Temperature 98.2 F 01/20/20 09:00 Pulse Rate 92 H 01/20/20 09:00 Respiratory Rate 18 01/20/20 09:00 Blood Pressure 135/57 L 01/20/20 09:00 O2 Sat by Pulse Oximetry (%) 97 01/20/20 09:00 Constitutional: Yes: No Distress Eyes: Yes: Conjunctiva Clear HENT: Yes: Atraumatic Neck: Yes: Supple Cardiovascular: No: Regular Rate and Rhythm Respiratory: Yes: CTA Bilaterally Gastrointestinal: Yes: Soft. No: Tenderness Genitourinary: No: Hematuria Musculoskeletal: No: Joint Stiffness, Joint Swelling Extremities: No: Cold, Cool, Cyanosis Edema: No Integumentary: No: Rash, Venous Stasis Changes Neurological: Yes: Alert ...Motor Strength: WNL Psychiatric: Yes: Alert. No: Agitated Labs: CBC, BMP 01/19/20 05:25 01/19/20 05:25 INR, PTT INR 1.35 (0.83-1.09) H 01/11/20 06:00 - ....Imaging Other: Report Reviewed Assessment/Plan 84-year-old female history of anemia, A. fib, diabetes, hypertension, lipidemia , colon cancer status post resection and hernia repair complicated by abdominal skin wall abscess and fistula admitted with hypotension, sepsis; anemia; s/p abdominal exploration surgery; s/p fever; send cultures so far negative; on broad spectrum IV ATB per ID ASHD AFib; cardiology f/u; eliquis po anemia sp transfusion PRBC f/u labs prognosis guarded surgery f/u abd wound f/u labs and cultures falls DVT aspiration decubs PFX d/w pt and staff d/w pt's daughter at [facility]; start PT rehab - pt and family asked for SNF at [facility] when stable
--- NOTE | 2020-01-20 13:44 | PN ---
Progress Note, Physician History of Present Illness: Afebrile, rate-controlled afib, s/p abscess drainage and repair of enterocutaneous fistula, tolerating diet. - Current Medication List Current Medications: Active Medications Acetaminophen (Tylenol -) 650 mg PO Q6H PRN PRN Reason: PAIN LEVEL 1-5 Last Admin: 01/18/20 22:12 Dose: 650 mg Apixaban (Eliquis -) 5 mg PO BID [facility] Last Admin: 01/20/20 09:25 Dose: 5 mg Brimonidine Tartrate (Alphagan 0.2% -) 1 drop OU BID [facility] Last Admin: 01/20/20 09:26 Dose: 1 drop Fluticasone Propionate (Flonase -) 1 spray NS BID [facility] Last Admin: 01/20/20 09:27 Dose: 1 spray Fluconazole (Diflucan 200 Mg/Ns Premixed Ivpb -) 100 mls @ 100 mls/hr IVPB DAILY [facility] Last Admin: 01/20/20 11:31 Dose: 100 mls/hr Piperacillin Sod/Tazobactam (Sod 4.5 gm/ Dextrose) 100 mls @ 200 mls/hr IVPB Q8H-IV [facility]; Protocol Last Admin: 01/20/20 09:27 Dose: 200 mls/hr Insulin Aspart (Novolog Vial Sliding Scale -) 1 vial SQ ACHS [facility]; Protocol Last Admin: 01/20/20 11:45 Dose: Not Given Latanoprost (Xalatan 0.005% Eye Drops -) 1 drop OU HS [facility] Last Admin: 01/19/20 21:42 Dose: 1 drop Lidocaine (Lidoderm Patch -) 1 patch TP DAILY [facility] Last Admin: 01/20/20 09:25 Dose: 1 patch Losartan Potassium (Cozaar -) 25 mg PO DAILY [facility] Last Admin: 01/20/20 09:25 Dose: 25 mg Methimazole (Tapazole -) 10 mg PO BID [facility] Last Admin: 01/20/20 09:42 Dose: 10 mg Metoprolol Tartrate (Lopressor -) 25 mg PO BID [facility] Last Admin: 01/20/20 09:25 Dose: 25 mg Miscellaneous (Lidoderm Patch Removal) 1 each MC DAILY@2200 [facility] Last Admin: 01/19/20 21:39 Dose: Not Given Pantoprazole Sodium (Protonix Iv) 40 mg IVPUSH BID [facility] Last Admin: 01/20/20 09:25 Dose: 40 mg Timolol Maleate (Timoptic 0.5%) 1 drop OU BID [facility] Last Admin: 01/20/20 09:27 Dose: 1 drop - Objective Vital Signs: Vital Signs Temperature 98.2 F 01/20/20 09:00 Pulse Rate 92 H 01/20/20 09:00 Respiratory Rate 18 01/20/20 09:00 Blood Pressure 135/57 L 01/20/20 09:00 O2 Sat by Pulse Oximetry (%) 97 01/20/20 09:00 Constitutional: Yes: No Distress, Calm Neck: Yes: Supple Cardiovascular: Yes: Pulse Irregular Respiratory: Yes: Regular, Diminished Gastrointestinal: Yes: Normal Bowel Sounds, Soft Edema: No Labs: CBC, BMP 01/19/20 05:25 01/19/20 05:25 INR, PTT INR 1.35 (0.83-1.09) H 01/11/20 06:00 Problem List - Problems (1) Abscess Code(s): L02.91 - CUTANEOUS ABSCESS, UNSPECIFIED (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 (4) Afib Code(s): I48.91 - UNSPECIFIED ATRIAL FIBRILLATION Qualifiers: Atrial fibrillation type: permanent Qualified Code(s): I48.21 - Permanent atrial fibrillation (5) Anemia Code(s): D64.9 - ANEMIA, UNSPECIFIED (6) Fluid collection at surgical site Code(s): T88.8XXA - OTH COMPLICATIONS OF SURGICAL AND MEDICAL CARE, NEC, INIT Qualifiers: Encounter type: initial encounter Qualified Code(s): T88.8XXA - Other specified complications of surgical and medical care, not elsewhere classified, initial encounter (7) Hyperthyroidism Code(s): E05.90 - THYROTOXICOSIS, UNSP WITHOUT THYROTOXIC CRISIS OR STORM (8) S/P left hemicolectomy Code(s): Z90.49 - ACQUIRED ABSENCE OF OTHER SPECIFIED PARTS OF DIGESTIVE TRACT (9) S/P repair of ventral hernia Code(s): Z98.890 - OTHER SPECIFIED POSTPROCEDURAL STATES; Z87.19 - PERSONAL HISTORY OF OTHER DISEASES OF THE DIGESTIVE SYSTEM (10) Sepsis Code(s): A41.9 - SEPSIS, UNSPECIFIED ORGANISM Qualifiers: Sepsis type: sepsis due to unspecified organism Qualified Code(s): A41.9 - Sepsis, unspecified organism (11) CAD (coronary artery disease) Code(s): I25.10 - ATHSCL HEART DISEASE OF [place] CORONARY ARTERY W/O ANG PCTRS Qualifiers: Coronary Disease-Associated Artery/Lesion type: [place] artery [place] vs. transplanted heart: [place] heart Associated angina: without angina Qualified Code(s): I25.10 - Atherosclerotic heart disease of [place] coronary artery without angina pectoris (12) CVA (cerebral vascular accident) Code(s): I63.9 - CEREBRAL INFARCTION, UNSPECIFIED Qualifiers: CVA mechanism: unspecified Qualified Code(s): I63.9 - Cerebral infarction, unspecified (13) HTN (hypertension) Code(s): I10 - ESSENTIAL (PRIMARY) HYPERTENSION Qualifiers: Hypertension type: essential hypertension Qualified Code(s): I10 - Essential (primary) hypertension (14) Microcytic anemia Code(s): D50.9 - IRON DEFICIENCY ANEMIA, UNSPECIFIED Assessment/Plan 1. Subcutaneous Abscesses, Enterocutaneous Fisulta post I&D, washout and repair 2. Post septic shock 3. Post abdominal hernia repair complicated by small bowel resection and mesh placement, h/o IR drain of abscess 4. Persistent atrial Fibrillation [id number] score of 5 5. Diastolic LV dysfunction with clinical class 0 NYHA classification LV failure 6. HTN 7. DM 8. Hyperthyroidism 9. History of cervical carcinoma post resection 10. History of colon carcinoma post hemicolectomy 11. Anemia 12. UTI -pseudomonas 13. vre culture positive by history PLAN: 1. Abx and antifungal per ID, wound care, replete K as you are 2. Continue Eliquis 5 bid as post-op hemostasis assured 3. Increase Lopressor 50 mg BID, Losartan 25 mg QD as hemodynamics tolerate 4. IV Lopressor as needed for rate-control
[2020-01-20] MEDS: METOPROLOL TARTRATE 50 MG TABLET (FP) PO SCH ×2 (15:10→21:09)
[2020-01-20] MEDS ORDERED: PT OWN MED DRAWER 7, Y5N ONE (20:59)
[2020-01-20] MEDS: LIDOCAINE PATCH REMOVAL MC SCH (21:09)
[2020-01-20] MEDS: LATANOPROST 0.005% OPHTH SOLN 2.5ML BOTTLE OU SCH (21:10)
[2020-01-21] MEDS ORDERED: DEXTROSE 5%-WATER 100 ML IVPB ONE ×2 (00:45→08:52)
[2020-01-21] MEDS ORDERED: PIPERACILLIN/TAZOBACTAM 4.5 GM VIAL IVPB ONE ×2 (00:45→08:52)
[2020-01-21] MEDS: PIPERACILLIN/TAZOB 4.5 GM 4.5 GM in DEXTROSE 5%-WATER 100 ML IVPB SCH ×2 (01:10→09:33)
[2020-01-21] MEDS: INSULIN SLIDING SCALE (NOVOLOG) 1 VIAL SQ SCH ×4 (06:06→21:04)
[2020-01-21 07:06] LABS: BASO % 0.2 % (0-2.0); EOS % 0.9 % (0-4.5); HEMATOCRIT 30.5 % (32.4-45.2); HEMOGLOBIN 10.3 GM/dL (10.7-15.3); LYMPH % 18.9 % (8-40); MCHC 33.9 g/dl (32.0-36.0); MEAN CELL VOLUME 88.5 fl (80-96); MEAN PLT VOLUME 7.9 fl (7.5-11.1); MONO % 13.2 % (3.8-10.2); NEUT % 66.8 % (42.8-82.8); PLATELET COUNT 358 K/MM3 (134-434); RBC 3.45 M/mm3 (3.60-5.2); RDW 17.1 % (11.6-15.6); WHITE BLOOD COUNT 8.6 K/mm3 (4.0-10.0)
[2020-01-21 07:48] LABS: ALBUMIN 1.3 g/dl (3.4-5.0); BILIRUBIN,TOTAL 0.4 mg/dL (0.2-1); BLOOD UREA NITROGEN 6.8 mg/dL (7-18); CALCIUM 7.5 mg/dL (8.5-10.1); CREATININE 0.6 mg/dL (0.55-1.3); POTASSIUM 3.6 mmol/L (3.5-5.1); TOT PROT 4.4 g/dl (6.4-8.2)
[2020-01-21] MEDS ORDERED: PT OWN MED DRAWER 7, Y5N ONE ×2 (08:51→20:47)
[2020-01-21] MEDS: FLUTICASONE PROP 0.05% 16 GM NASAL SPRAY NS SCH ×2 (09:29→21:04)
[2020-01-21] MEDS: BRIMONIDINE TARTRATE 0.2% OPHTHALMIC 5 ML BOTTLE OU SCH ×2 (09:29→21:03)
[2020-01-21] MEDS: TIMOLOL 0.5% OPHTHALMIC SOL 5 ML BOTTLE OU SCH ×2 (09:29→21:04)
[2020-01-21] MEDS: FLUCONAZOLE 200 MG/NS 100 ML IVPB SCH (09:31)
[2020-01-21] MEDS: LIDOCAINE 5% TOPICAL PATCH TP SCH (09:31)
[2020-01-21] MEDS: APIXABAN 5 MG TABLET PO SCH ×2 (09:31→21:03)
[2020-01-21] MEDS: LOSARTAN POTASSIUM 25 MG TABLET PO SCH (09:31)
[2020-01-21] MEDS: METOPROLOL TARTRATE 50 MG TABLET (FP) PO SCH ×2 (09:31→21:03)
[2020-01-21] MEDS: PANTOPRAZOLE SODIUM 40 MG VIAL IVPUSH SCH ×2 (09:32→21:03)
[2020-01-21] MEDS: METHIMAZOLE 10 MG TABLET (FP) PO SCH ×2 (09:33→21:03)
--- NOTE | 2020-01-21 09:33 | PN ---
Progress Note, Physician Chief Complaint: in bed NAD afebrile eats OK - Current Medication List Current Medications: Active Medications Acetaminophen (Tylenol -) 650 mg PO Q6H PRN PRN Reason: PAIN LEVEL 1-5 Last Admin: 01/18/20 22:12 Dose: 650 mg Apixaban (Eliquis -) 5 mg PO BID [facility] Last Admin: 01/20/20 21:09 Dose: 5 mg Brimonidine Tartrate (Alphagan 0.2% -) 1 drop OU BID [facility] Last Admin: 01/20/20 21:10 Dose: 1 drop Fluticasone Propionate (Flonase -) 1 spray NS BID [facility] Last Admin: 01/20/20 21:10 Dose: 1 spray Fluconazole (Diflucan 200 Mg/Ns Premixed Ivpb -) 100 mls @ 100 mls/hr IVPB DAILY [facility] Last Admin: 01/20/20 11:31 Dose: 100 mls/hr Piperacillin Sod/Tazobactam (Sod 4.5 gm/ Dextrose) 100 mls @ 200 mls/hr IVPB Q8H-IV [facility]; Protocol Last Admin: 01/21/20 01:10 Dose: 200 mls/hr Insulin Aspart (Novolog Vial Sliding Scale -) 1 vial SQ ACHS [facility]; Protocol Last Admin: 01/21/20 06:06 Dose: Not Given Latanoprost (Xalatan 0.005% Eye Drops -) 1 drop OU HS [facility] Last Admin: 01/20/20 21:10 Dose: 1 drop Lidocaine (Lidoderm Patch -) 1 patch TP DAILY [facility] Last Admin: 01/20/20 09:25 Dose: 1 patch Losartan Potassium (Cozaar -) 25 mg PO DAILY [facility] Last Admin: 01/20/20 09:25 Dose: 25 mg Methimazole (Tapazole -) 10 mg PO BID [facility] Last Admin: 01/20/20 21:09 Dose: 10 mg Metoprolol Tartrate (Lopressor -) 50 mg PO BID [facility] Last Admin: 01/20/20 21:09 Dose: 50 mg Miscellaneous (Lidoderm Patch Removal) 1 each MC DAILY@2200 [facility] Last Admin: 01/20/20 21:09 Dose: Not Given Pantoprazole Sodium (Protonix Iv) 40 mg IVPUSH BID [facility] Last Admin: 01/20/20 21:09 Dose: 40 mg Timolol Maleate (Timoptic 0.5%) 1 drop OU BID [facility] Last Admin: 01/20/20 21:10 Dose: 1 drop - Objective Vital Signs: Vital Signs Temperature 98.7 F 01/21/20 05:00 Pulse Rate 86 01/21/20 05:00 Respiratory Rate 20 01/21/20 05:00 Blood Pressure 124/68 01/21/20 05:00 O2 Sat by Pulse Oximetry (%) 100 01/20/20 21:00 Constitutional: Yes: No Distress, Calm Eyes: Yes: Conjunctiva Clear HENT: Yes: Atraumatic Neck: Yes: Supple Cardiovascular: No: Regular Rate and Rhythm Respiratory: Yes: Diminished Gastrointestinal: Yes: Soft, Other Genitourinary: No: Hematuria Breast(s): No: Skin Changes Musculoskeletal: No: Joint Stiffness, Joint Swelling Extremities: No: Cold, Cool Edema: No Integumentary: No: Rash, Venous Stasis Changes Neurological: Yes: WNL, Alert, Oriented, Tremors (head) ...Motor Strength: WNL Psychiatric: Yes: WNL, Alert, Oriented. No: Agitated, Suicidal Ideation Labs: CBC, BMP 01/21/20 05:45 01/21/20 05:45 INR, PTT INR 1.35 (0.83-1.09) H 01/11/20 06:00 - ....Imaging Other: Report Reviewed Assessment/Plan 84-year-old female history of anemia, A. fib, diabetes, hypertension, lipidemia , colon cancer status post resection and hernia repair complicated by abdominal skin wall abscess and fistula admitted with hypotension, sepsis; anemia; s/p abdominal exploration surgery; s/p fever; send cultures so far negative; on broad spectrum IV ATB per ID ASHD AFib; cardiology f/u; eliquis po anemia sp transfusion PRBC f/u labs prognosis guarded surgery f/u abd wound f/u labs and cultures falls DVT aspiration decubs PFX d/w pt and staff DC to SNF or Home with VNS and PT when cleared by surgery
--- NOTE | 2020-01-21 12:56 | PN ---
Progress Note, Physician History of Present Illness: Afebrile, rate-controlled afib, s/p abscess drainage and repair of enterocutaneous fistula, tolerating diet. - Current Medication List Current Medications: Active Medications Acetaminophen (Tylenol -) 650 mg PO Q6H PRN PRN Reason: PAIN LEVEL 1-5 Last Admin: 01/18/20 22:12 Dose: 650 mg Apixaban (Eliquis -) 5 mg PO BID [facility] Last Admin: 01/21/20 09:31 Dose: 5 mg Brimonidine Tartrate (Alphagan 0.2% -) 1 drop OU BID [facility] Last Admin: 01/21/20 09:29 Dose: 1 drop Fluticasone Propionate (Flonase -) 1 spray NS BID [facility] Last Admin: 01/21/20 09:29 Dose: 1 spray Fluconazole (Diflucan 200 Mg/Ns Premixed Ivpb -) 100 mls @ 100 mls/hr IVPB DAILY [facility] Last Admin: 01/21/20 09:31 Dose: 100 mls/hr Piperacillin Sod/Tazobactam (Sod 4.5 gm/ Dextrose) 100 mls @ 200 mls/hr IVPB Q8H-IV [facility]; Protocol Last Admin: 01/21/20 09:33 Dose: 200 mls/hr Insulin Aspart (Novolog Vial Sliding Scale -) 1 vial SQ ACHS [facility]; Protocol Last Admin: 01/21/20 11:19 Dose: Not Given Latanoprost (Xalatan 0.005% Eye Drops -) 1 drop OU HS [facility] Last Admin: 01/20/20 21:10 Dose: 1 drop Lidocaine (Lidoderm Patch -) 1 patch TP DAILY [facility] Last Admin: 01/21/20 09:31 Dose: 1 patch Losartan Potassium (Cozaar -) 25 mg PO DAILY [facility] Last Admin: 01/21/20 09:31 Dose: 25 mg Methimazole (Tapazole -) 10 mg PO BID [facility] Last Admin: 01/21/20 09:33 Dose: 10 mg Metoprolol Tartrate (Lopressor -) 50 mg PO BID [facility] Last Admin: 01/21/20 09:31 Dose: 50 mg Miscellaneous (Lidoderm Patch Removal) 1 each MC DAILY@2200 [facility] Last Admin: 01/20/20 21:09 Dose: Not Given Pantoprazole Sodium (Protonix Iv) 40 mg IVPUSH BID [facility] Last Admin: 01/21/20 09:32 Dose: 40 mg Timolol Maleate (Timoptic 0.5%) 1 drop OU BID [facility] Last Admin: 01/21/20 09:29 Dose: 1 drop - Objective Vital Signs: Vital Signs Temperature 98.8 F 01/21/20 09:00 Pulse Rate 88 01/21/20 09:00 Respiratory Rate 20 01/21/20 09:00 Blood Pressure 120/70 01/21/20 09:00 O2 Sat by Pulse Oximetry (%) 100 01/20/20 21:00 Constitutional: Yes: No Distress, Calm Neck: Yes: Supple Cardiovascular: Yes: Pulse Irregular Respiratory: Yes: Regular, CTA Bilaterally Gastrointestinal: Yes: Normal Bowel Sounds, Soft, Other (Colostomy intact) Edema: No Wound/Incision: Yes: [place] Intact Labs: CBC, BMP 01/21/20 05:45 01/21/20 05:45 INR, PTT INR 1.35 (0.83-1.09) H 01/11/20 06:00 Problem List - Problems (1) Abscess Code(s): L02.91 - CUTANEOUS ABSCESS, UNSPECIFIED (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 (4) Afib Code(s): I48.91 - UNSPECIFIED ATRIAL FIBRILLATION Qualifiers: Atrial fibrillation type: permanent Qualified Code(s): I48.21 - Permanent atrial fibrillation (5) Anemia Code(s): D64.9 - ANEMIA, UNSPECIFIED (6) Fluid collection at surgical site Code(s): T88.8XXA - OTH COMPLICATIONS OF SURGICAL AND MEDICAL CARE, NEC, INIT Qualifiers: Encounter type: initial encounter Qualified Code(s): T88.8XXA - Other specified complications of surgical and medical care, not elsewhere classified, initial encounter (7) Hyperthyroidism Code(s): E05.90 - THYROTOXICOSIS, UNSP WITHOUT THYROTOXIC CRISIS OR STORM (8) S/P left hemicolectomy Code(s): Z90.49 - ACQUIRED ABSENCE OF OTHER SPECIFIED PARTS OF DIGESTIVE TRACT (9) S/P repair of ventral hernia Code(s): Z98.890 - OTHER SPECIFIED POSTPROCEDURAL STATES; Z87.19 - PERSONAL HISTORY OF OTHER DISEASES OF THE DIGESTIVE SYSTEM (10) Sepsis Code(s): A41.9 - SEPSIS, UNSPECIFIED ORGANISM Qualifiers: Sepsis type: sepsis due to unspecified organism Qualified Code(s): A41.9 - Sepsis, unspecified organism (11) CAD (coronary artery disease) Code(s): I25.10 - ATHSCL HEART DISEASE OF [place] CORONARY ARTERY W/O ANG PCTRS Qualifiers: Coronary Disease-Associated Artery/Lesion type: [place] artery [place] vs. transplanted heart: [place] heart Associated angina: without angina Qualified Code(s): I25.10 - Atherosclerotic heart disease of [place] coronary artery without angina pectoris (12) CVA (cerebral vascular accident) Code(s): I63.9 - CEREBRAL INFARCTION, UNSPECIFIED Qualifiers: CVA mechanism: unspecified Qualified Code(s): I63.9 - Cerebral infarction, unspecified (13) HTN (hypertension) Code(s): I10 - ESSENTIAL (PRIMARY) HYPERTENSION Qualifiers: Hypertension type: essential hypertension Qualified Code(s): I10 - Essential (primary) hypertension (14) Microcytic anemia Code(s): D50.9 - IRON DEFICIENCY ANEMIA, UNSPECIFIED Assessment/Plan 1. Subcutaneous Abscesses, Enterocutaneous Fisulta post I&D, washout and repair 2. Post septic shock 3. Post abdominal hernia repair complicated by small bowel resection and mesh placement, h/o IR drain of abscess 4. Persistent atrial Fibrillation [id number] score of 5 5. Diastolic LV dysfunction with clinical class 0 NYHA classification LV failure 6. HTN 7. DM 8. Hyperthyroidism 9. History of cervical carcinoma post resection 10. History of colon carcinoma post hemicolectomy 11. Anemia 12. UTI -pseudomonas 13. vre culture positive by history PLAN: 1. Abx and antifungal per ID, wound care, replete K as you are 2. Continue Eliquis 5 bid as post-op hemostasis assured 3. Increased Lopressor 50 mg BID, Losartan 25 mg QD as hemodynamics tolerate 4. IV Lopressor as needed for rate-control
--- NOTE | 2020-01-21 14:40 | PN ---
Progress Note (short form) - Note Progress Note: s/p drainage of collections- enterocutaneous fistula noted pod #10 afebrile, looks comfortable eating regular food Vital Signs Period Temp Pulse Resp BP Sys/Ugarte Pulse Ox Last 24 Hr 98.7 F-99.1 F 68-88 20-20 104-124/62-70 100 cor-rrr lungs clear abd soft, +drainage in ostomy bag from fistula ext no edema CBC, BMP 01/21/20 05:45 01/21/20 05:45 Microbiology 01/17/20 19:00 Blood - Peripheral Venous Blood Culture - Preliminary NO GROWTH OBTAINED AFTER 72 HOURS, INCUBATION TO CONTINUE FOR 2 DAYS. 01/17/20 19:00 Blood - Peripheral Venous Blood Culture - Preliminary NO GROWTH OBTAINED AFTER 72 HOURS, INCUBATION TO CONTINUE FOR 2 DAYS. 01/08/20 14:00 Blood - Peripheral Venous Blood Culture - Final NO GROWTH AFTER 5 DAYS INCUBATION 01/08/20 14:00 Blood - Peripheral Venous Blood Culture - Final NO GROWTH AFTER 5 DAYS INCUBATION 01/11/20 11:00 Body Fluid - Other Gram Stain - Final 01/11/20 11:00 Body Fluid - Other Body Fluid Culture - Final Escherichia Coli Yeast Like Organism Alpha Hemolytic Streptococcus 01/11/20 11:00 Body Fluid - Other Anaerobic Culture - Final NO ANAEROBES WERE ISOLATED 01/11/20 11:00 Body Fluid - Other Gram Stain - Final 01/11/20 11:00 Body Fluid - Other Body Fluid Culture - Final Escherichia Coli Yeast Like Organism Alpha Hemolytic Streptococcus 01/11/20 11:00 Body Fluid - Other Anaerobic Culture - Final NO ANAEROBES WERE ISOLATED 01/10/20 20:00 Stool Clostridioides difficile Antigen - Final 01/10/20 20:00 Stool Clostridioides difficile Toxin Assay - Final 01/08/20 15:46 Urine - Urine - Catheterized Urine Culture - Final Pseudomonas Aeruginosa a/p sepsis enterocutaneous fistula-has completed octrotide s/p mesh repair of hernia with small bowel resection s/p left colectomy colon cancer vre culture positive by history UTI -pseudomonas d/c antibiotics and observe Problem List - Problems (1) Sepsis Code(s): A41.9 - SEPSIS, UNSPECIFIED ORGANISM Qualifiers: Sepsis type: sepsis due to unspecified organism Qualified Code(s): A41.9 - Sepsis, unspecified organism (2) Abscess Code(s): L02.91 - CUTANEOUS ABSCESS, UNSPECIFIED (3) S/P repair of ventral hernia Code(s): Z98.890 - OTHER SPECIFIED POSTPROCEDURAL STATES; Z87.19 - PERSONAL HISTORY OF OTHER DISEASES OF THE DIGESTIVE SYSTEM (4) S/P left hemicolectomy Code(s): Z90.49 - ACQUIRED ABSENCE OF OTHER SPECIFIED PARTS OF DIGESTIVE TRACT (5) Colon cancer Code(s): C18.9 - MALIGNANT NEOPLASM OF COLON, UNSPECIFIED (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
--- NOTE | 2020-01-21 15:57 | PN ---
Progress Note (short form) - Note Progress Note: Attending Surgeon Tolerating diet; fistula controlled w/ostomy appliance. Off antibiotics. VSS AF abdo-no change IMP: stable PLAN: Surgically stable for d/c to home/rehab w/ostomy appliance over the fistula and office f/u; given " hostile abdomen " there is no plan for further surgery at this time. John Alvarado MD FACS
[2020-01-21] MEDS: LATANOPROST 0.005% OPHTH SOLN 2.5ML BOTTLE OU SCH (21:04)
[2020-01-21] MEDS: LIDOCAINE PATCH REMOVAL MC SCH (21:04)
[2020-01-22] MEDS: INSULIN SLIDING SCALE (NOVOLOG) 1 VIAL SQ SCH ×2 (06:16→11:29)
[2020-01-22] MEDS ORDERED: PT OWN MED DRAWER 7, Y5N ONE (09:17)
[2020-01-22] MEDS: LIDOCAINE 5% TOPICAL PATCH TP SCH (09:31)
[2020-01-22] MEDS: APIXABAN 5 MG TABLET PO SCH (09:34)
[2020-01-22] MEDS: LOSARTAN POTASSIUM 25 MG TABLET PO SCH (09:34)
[2020-01-22] MEDS: PANTOPRAZOLE SODIUM 40 MG VIAL IVPUSH SCH (09:34)
[2020-01-22] MEDS: METHIMAZOLE 10 MG TABLET (FP) PO SCH (09:34)
[2020-01-22] MEDS: METOPROLOL TARTRATE 50 MG TABLET (FP) PO SCH (09:34)
[2020-01-22] MEDS: FLUTICASONE PROP 0.05% 16 GM NASAL SPRAY NS SCH (09:36)
[2020-01-22] MEDS: TIMOLOL 0.5% OPHTHALMIC SOL 5 ML BOTTLE OU SCH (09:36)
[2020-01-22] MEDS: BRIMONIDINE TARTRATE 0.2% OPHTHALMIC 5 ML BOTTLE OU SCH (09:37)
--- NOTE | 2020-01-22 10:00 | DS ---
Physical Examination Vital Signs: Vital Signs Temperature 98.4 F 01/22/20 09:58 Pulse Rate 92 H 01/22/20 09:58 Respiratory Rate 18 01/22/20 09:58 Blood Pressure 114/74 01/22/20 09:58 O2 Sat by Pulse Oximetry (%) 100 01/20/20 21:00 Findings/Remarks: awake alert no c/o eats well; got OOB and walked with PT per staff; wants to go home, does not want SNF; dw daughter Cintia and CM will arrainge home DC; d/w surgery dr Alvarado OK to DC home; d/w daughter f/u and instructions Constitutional: Yes: No Distress, Calm Eyes: Yes: Conjunctiva Clear HENT: Yes: Atraumatic Neck: Yes: Supple Cardiovascular: No: Regular Rate and Rhythm Respiratory: Yes: CTA Bilaterally Gastrointestinal: Yes: Soft, Other (bag) Renal/: No: Hematuria Musculoskeletal: No: Joint Stiffness, Joint Swelling Extremities: No: Cold, Cool Edema: No Integumentary: No: Rash, Venous Stasis Changes Neurological: Yes: WNL, Alert, Oriented, Tremors (head; chronic) ...Motor Strength: WNL Psychiatric: Yes: WNL, Alert, Oriented. No: Agitated, Suicidal Ideation Labs: CBC, BMP 01/21/20 05:45 01/21/20 05:45 Discharge Summary Problems reviewed: Yes Reason For Visit: ANEMIA,SEPSIS , HYPOTENSION Current Active Problems Abdominal fistula (Acute) Abscess (Acute) Colon cancer (Acute) Diabetes mellitus (Acute) Enterocutaneous fistula (Acute) Hypokalemia (Acute) Hypotension (Acute) S/P left colectomy (Acute) Sepsis (Acute) Subcutaneous abscess (Acute) Subcutaneous abscess (Acute) VRE carrier (Acute) Procedures: Principal: 84 YOF ASHD AFib CHF DM colon CA s/o L hemicolectomy last year, postop hernia; s/p surgery/ mesh; admitted with hypoTA and sepsis and entercutenous abdominal fistula at the place of old abdominal surgery (colon , hernia surgery) Other Procedures: admitted with ICU; IV ATB per ID: seen by ICU, cardiology, surgery and ID; had fistula exploration and cleaning; ostomy bag placed; mesh to be resorbed per surgery; Hospital Course: improved with above; DC home close f/u; cont meds as advised; wound care per surgery; Condition: Improved - Instructions Diet, Activity, Other Instructions: f/u PCP, surgery, GI and cardiology in 1-2 weeks; RTER if fever pain N/V or low BP; wound care and ostomy care per surgery Referrals: Elle Bauer [Primary Care Provider] - John Alvarado MD [Staff Physician] - Anthony Samuel MD [Staff Physician] - Disposition: VNS/HOME HEALTH CARE - Home Medications Comprehensive Discharge Medication List: Ambulatory Orders Bimatoprost [Lumigan] 1 drop OU DAILY 04/09/17 Brimonidine Tartrate/Timolol [Combigan 0.2%-0.5% Eye Drops] 5 ml OU BID Latanoprost 0.005% Eye Drops [Xalatan 0.005% Eye Drops -] 1 drop HS 02/14/19 Methimazole 5 mg PO BID 02/14/19 Ascorbic Acid [Vitamin C -] 500 mg PO DAILY tablet 03/02/19 Metoprolol Tartrate [Lopressor -] 50 mg PO BID tablet 03/02/19 Acetaminophen [Tylenol .Regular Strength -] 650 mg PO Q6H PRN tablet 03/16/19 Nitroglycerin Sublingual [Nitrostat -] 0.4 mg SL Q5M PRN tab 03/20/19 Albuterol 0.083% Nebulizer Kathrin [Ventolin 0.083% Nebulizer Soln -] 1 amp NEB Q6H PRN amp 03/29/19 Calcium (Oyster Shell) [Os-Dioni 500MG -] 500 mg PO DAILY 10/08/19 Fluticasone Prop 0.05% Nasal [Flonase -] 1 - 2 spray NS DAILY 10/08/19 Acetaminophen [Tylenol .Regular Strength -] 650 mg PO Q6H PRN tablet 10/28/19 Ferrous Sulfate [Feosol] 325 mg PO DAILY [facility] 10/28/19 Furosemide [Lasix -] 20 mg PO DAILY tablet 10/28/19 Apixaban [Eliquis -] 5 mg PO BID tablet 11/06/19 Losartan Potassium [Cozaar -] 25 mg PO AM tablet 11/06/19
--- NOTE | 2020-01-22 11:59 | PN ---
Progress Note, Physician Chief Complaint: Events noted Not in distress History of Present Illness: Patient was seen and examined. Awake and alert. Chart was reviewed Denies chest pain or SOB - Current Medication List Current Medications: Active Medications Acetaminophen (Tylenol -) 650 mg PO Q6H PRN PRN Reason: PAIN LEVEL 1-5 Last Admin: 01/18/20 22:12 Dose: 650 mg Apixaban (Eliquis -) 5 mg PO BID [facility] Last Admin: 01/22/20 09:34 Dose: 5 mg Brimonidine Tartrate (Alphagan 0.2% -) 1 drop OU BID [facility] Last Admin: 01/22/20 09:37 Dose: 1 drop Fluticasone Propionate (Flonase -) 1 spray NS BID [facility] Last Admin: 01/22/20 09:36 Dose: 1 spray Insulin Aspart (Novolog Vial Sliding Scale -) 1 vial SQ ACHS [facility]; Protocol Last Admin: 01/22/20 11:29 Dose: Not Given Latanoprost (Xalatan 0.005% Eye Drops -) 1 drop OU HS [facility] Last Admin: 01/21/20 21:04 Dose: 1 drop Lidocaine (Lidoderm Patch -) 1 patch TP DAILY [facility] Last Admin: 01/22/20 09:31 Dose: 1 patch Losartan Potassium (Cozaar -) 25 mg PO DAILY [facility] Last Admin: 01/22/20 09:34 Dose: 25 mg Methimazole (Tapazole -) 10 mg PO BID [facility] Last Admin: 01/22/20 09:34 Dose: 10 mg Metoprolol Tartrate (Lopressor -) 50 mg PO BID [facility] Last Admin: 01/22/20 09:34 Dose: 50 mg Miscellaneous (Lidoderm Patch Removal) 1 each MC DAILY@2200 [facility] Last Admin: 01/21/20 21:04 Dose: 1 each Pantoprazole Sodium (Protonix Iv) 40 mg IVPUSH BID [facility] Last Admin: 01/22/20 09:34 Dose: 40 mg Timolol Maleate (Timoptic 0.5%) 1 drop OU BID [facility] Last Admin: 01/22/20 09:36 Dose: 1 drop - Objective Vital Signs: Vital Signs Temperature 98.4 F 01/22/20 09:58 Pulse Rate 92 H 01/22/20 09:58 Respiratory Rate 18 01/22/20 09:58 Blood Pressure 114/74 01/22/20 09:58 O2 Sat by Pulse Oximetry (%) 100 01/20/20 21:00 Neck: Yes: Supple Cardiovascular: Yes: Pulse Irregular, S1, S2 Respiratory: Yes: CTA Bilaterally Gastrointestinal: Yes: Other (post op). 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 - FISTULA OF INTESTINE (6) S/P left colectomy Code(s): Z90.49 - ACQUIRED ABSENCE OF OTHER SPECIFIED PARTS OF DIGESTIVE TRACT (7) Sepsis Code(s): A41.9 - SEPSIS, UNSPECIFIED ORGANISM Qualifiers: Sepsis type: sepsis due to unspecified organism Sepsis acute organ dysfunction status: unspecified Qualified Code(s): A41.9 - Sepsis, unspecified organism (8) Subcutaneous abscess Code(s): L02.91 - CUTANEOUS ABSCESS, UNSPECIFIED (9) Afib Code(s): I48.91 - UNSPECIFIED ATRIAL FIBRILLATION Qualifiers: Atrial fibrillation type: permanent Qualified Code(s): I48.21 - Permanent atrial fibrillation (10) Hyperthyroidism Code(s): E05.90 - THYROTOXICOSIS, UNSP WITHOUT THYROTOXIC CRISIS OR STORM (11) S/P left hemicolectomy Code(s): Z90.49 - ACQUIRED ABSENCE OF OTHER SPECIFIED PARTS OF DIGESTIVE TRACT (12) S/P repair of ventral hernia Code(s): Z98.890 - OTHER SPECIFIED POSTPROCEDURAL STATES; Z87.19 - PERSONAL HISTORY OF OTHER DISEASES OF THE DIGESTIVE SYSTEM (13) CAD (coronary artery disease) Code(s): I25.10 - ATHSCL HEART DISEASE OF [place] CORONARY ARTERY W/O ANG PCTRS Qualifiers: Coronary Disease-Associated Artery/Lesion type: [place] artery [place] vs. transplanted heart: [place] heart Associated angina: without angina Qualified Code(s): I25.10 - Atherosclerotic heart disease of [place] coronary artery without angina pectoris (14) CVA (cerebral vascular accident) Code(s): I63.9 - CEREBRAL INFARCTION, UNSPECIFIED Qualifiers: CVA mechanism: unspecified Qualified Code(s): I63.9 - Cerebral infarction, unspecified (15) HTN (hypertension) Code(s): I10 - ESSENTIAL (PRIMARY) HYPERTENSION Qualifiers: Hypertension type: essential hypertension Qualified Code(s): I10 - Essential (primary) hypertension (16) Parkinson disease Code(s): G20 - PARKINSON'S DISEASE Assessment/Plan 1. Subcutaneous Abscesses, Enterocutaneous Fistula post I&D, washout and repair 2. Septic shock 3. Post abdominal hernia repair complicated by small bowel resection and mesh placement, h/o IR drain of abscess 4. Persistent atrial Fibrillation [id number] score of 5 5. Diastolic LV dysfunction with clinical class 0 NYHA classification LV failure 6. HTN 7. DM 8. Hyperthyroidism 9. History of cervical carcinoma post resection 10. History of colon carcinoma post hemicolectomy 11. Anemia 12. UTI PLAN: 1. Antibiotics and antifungal finished 2. Continue Eliquis 5 mg BID 3. Consider Lopressor 50 mg BID as tolerated. Continue Losartan 25 mg QD 4. Post op management Discharge planning Johann Cowan MD
[2020-01-22 14:59] VITALS: BP 116/72; PULSE 86; TEMP 98.2
--- NOTE | 2020-02-01 13:22 | OP ---
DATE OF OPERATION: 01/11/2020 PREOPERATIVE DIAGNOSIS: Abdominal wound collection, rule out enterocutaneous fistula. POSTOPERATIVE DIAGNOSIS: Abdominal wound collection, rule out enterocutaneous fistula. PROCEDURE: Wound exploration. SURGEON: John Alvarado MD PRIMER CHARGER: Michele Burleson PA-C ANESTHESIA: General. OPERATIVE FINDINGS: There was no evidence of a subcutaneous wound collection and/or abscess. At the distal aspect of the previous midline abdominal incision were noted to be 2 small openings which were found to be consistent with an enterocutaneous fistula. The rest of the findings were unremarkable. PROCEDURE: The patient was placed on the operating table in the supine position. After the induction of general anesthesia and placement of sequential compression devices on the patient's lower extremities the abdomen was prepped with ChloraPrep and draped in sterile fashion. Timeout was taken and a scalpel was used to open the previous midline incision above the umbilicus. This was taken down to the abdominal wall fascia and there was no evidence of subcutaneous wound collection after exploration of the wound using blunt dissection. Distal to the distal aspect of the midline incision were 2 openings draining purulent material. This was sent for culture and sensitivity and found to be on exam under anesthesia consistent with an enterocutaneous fistula. The previous midline wound was irrigated and hemostasis secured with electrocautery and the incision closed with interrupted 2-0 Vicryl for the deep dermis and surgical lucius to reapproximate the skin edges. The area around the enterocutaneous fistula was cleaned and a 2-3/4-inch colostomy flange and bag were placed over the enterocutaneous fistula. Dry sterile dressings were placed on the proximal incision and the procedure terminated at this point and the patient aroused from general anesthesia and transferred to the postanesthesia care unit in stable condition awake and alert. ESTIMATED BLOOD LOSS: 20 mL. REPLACEMENT: Crystalloid. DRAINS: None. SPECIMEN: Cultures to Microbiology. I, John Alvarado, was physically present in the operating room from the time the patient was placed on the operating table until she was transferred to the postanesthesia care unit in my accompaniment. MD CHELSEY Mccullough/[id number]
== END 2020-01-22 16:41 | disposition home health service (06) | DRG 856 ==
LOC: SUPCPDRO 13:17 → JER 13:17 → JERBED 17:59 → JICU 19:45 → J4S 01-15 11:00 → J8W 01-19 12:29
PROVIDERS: ADMIT Internal Medicine; ATTEND Internal Medicine
PROC: 05HN33Z Insertion of Infusion Device into Left Internal Jugular Vein, Percutaneous Approach (ICD-10-PCS; principal; 2020-01-08)
PROC: B514ZZA Fluoroscopy of Left Jugular Veins, Guidance (ICD-10-PCS; 2020-01-08)
PROC: 0WJF0ZZ Inspection of Abdominal Wall, Open Approach (ICD-10-PCS; 2020-01-10)
PROC: 3E1038Z Irrigation of Skin and Mucous Membranes using Irrigating Substance, Percutaneous Approach (ICD-10-PCS; 2020-01-10)
DX: T81.41XA Infection following a procedure, superficial incisional surgical site, initial encounter (principal); A41.51 Sepsis due to Escherichia coli [E. coli]; R65.21 Severe sepsis with septic shock; T81.83XA Persistent postprocedural fistula, initial encounter; K63.2 Fistula of intestine; L03.311 Cellulitis of abdominal wall; I48.19 Other persistent atrial fibrillation; N39.0 Urinary tract infection, site not specified; L02.91 Cutaneous abscess, unspecified; E87.2 Acidosis; T81.44XA Sepsis following a procedure, initial encounter; D50.9 Iron deficiency anemia, unspecified; E11.9 Type 2 diabetes mellitus without complications; H40.9 Unspecified glaucoma; E87.6 Hypokalemia; I25.10 Atherosclerotic heart disease of native coronary artery without angina pectoris; I10 Essential (primary) hypertension; E78.5 Hyperlipidemia, unspecified; E66.9 Obesity, unspecified; B96.5 Pseudomonas (aeruginosa) (mallei) (pseudomallei) as the cause of diseases classified elsewhere; Z68.28 Body mass index [BMI] 28.0-28.9, adult; K21.9 Gastro-esophageal reflux disease without esophagitis; D64.9 Anemia, unspecified; G20 Parkinson's disease; E05.90 Thyrotoxicosis, unspecified without thyrotoxic crisis or storm; Z22.39 Carrier of other specified bacterial diseases; Z90.49 Acquired absence of other specified parts of digestive tract; Z98.890 Other specified postprocedural states; Z85.038 Personal history of other malignant neoplasm of large intestine; Z85.41 Personal history of malignant neoplasm of cervix uteri
CPT/HCPCS: 36415; 36430; 36511; 36600; 71045-TC-FY; 74177-TC; 80048; 80053; 81003; 82272; 82550; 82803; 82962; 83605; 83735; 83880; 84100; 84443; 84484; 85025; 85027; 85610; 85730; 86850; 86900; 86901; 86922; 87040; 87070; 87075; 87086; 87186; 87205; 87324; 87449; 93005; 93010; 93926-TC; 93971-TC; 97116-GP; 97161-GP; 99291; J0131; J7030; P9038; P9058; Q9967